=== PATIENT | female | born 1995 | race Caucasian/White ===

== ENCOUNTER 2020-02-19 13:35 | Emergency (ER) | payer MEDICAID, SELFPAY ==
[2020-02-19] VITALS (13 sets, daily range): BP systolic 133–157; BP diastolic 84–102; PULSE 94–125; RESP 16–22; TEMP 36.7–37.2; O2SAT 96–100; BMI 42.0
--- NOTE | 2020-02-19 14:06 | ED.DCSUM_ITS ---
History of Present Illness Chief Complaint: Abn Labs Narrative: This patient is a 24-year-old female who was sent in for a blood transfusion. She began to have a heavier menstrual period about 3 weeks ago. She continues to have vaginal bleeding although she now describes this as light as if at the end of her menstrual period. She does have a history of bilateral lung transplant for pulmonary hypertension. Her transplant physician had ordered outpatient blood work for her tacrolimus level and included a blood count. This was done about 1 week ago. Her hemoglobin was in the sevens. Her transplant physician spoke to her photocopying equipment mechanic and she actually has an appointment tomorrow. However her photocopying equipment mechanic advised her to present for blood transfusion. She does complain of dyspnea with exertion only as well as some lightheadedness. She otherwise denies recent illness such as fevers chest pain abdominal pain vomiting diarrhea. Past Medical History - Allergies and Home Meds Allergies/Adverse Reactions: Allergies cefprozil [From Cefzil] Allergy (Verified 02/19/20 13:40) Rash Primary Care Physician: Candelario Byrd MD [STAFF PHYSICIAN] - Past Medical History: - - Lung transplant Smoking Status: Never smoker Review of Systems All systems negative except as indicated General: Denies: Fever Eyes: Denies: Visual changes - bilaterally ENT: Denies: Bilateral ear pain Cardiovascular: Denies: Chest pain Respiratory: Reports: Dyspnea Gastrointestinal: Denies: Abdominal pain, Nausea, Vomiting, Diarrhea Genitourinary: Reports: - - Menorrhagia Musculoskeletal: Denies: Myalgias, Arthralgias Skin: Denies: Rash Neurological: Denies: Headache Allergy: Denies: Uticaria Physical Exam Vital Signs/Narrative: Vital Signs Temp Pulse Resp BP Pulse Ox 02/19/20 14:04 115 H 18 145/92 H 100 02/19/20 13:37 98.0 F 125 H 22 H 157/102 H 100 Inital Vital Signs reviewed: Yes General: Well nourished Head: Normocephalic Eyes: EOMI ENT: Moist mucous membranes Neck: Supple Cardiovascular: - - Heart regular tachycardia, no murmur Respiratory: No distress, CTA bilaterally Abdomen: Soft Extremities: Nontender Skin: Pallor Neurological: Alert Psychological: Normal affect Diagnostic/Tx/Re-eval Laboratory Results 02/19/20 02/19/20 02/19/20 14:35 14:35 14:35 WBC 9.1 RBC 2.29 L Hgb 6.5 L Hct 22.1 L MCV 96.5 MCH 28.4 MCHC 29.4 L RDW Std Deviation 49.7 H RDW Coeff of Dickson 14.3 Plt Count 502 H MPV 9.5 Immature Gran % (Auto) 0.500 Neut % (Auto) 87.9 H Lymph % (Auto) 6.7 L [place] % (Auto) 3.7 Eos % (Auto) 0.8 Baso % (Auto) 0.4 Absolute Neuts (auto) 8.0 H Absolute Lymphs (auto) 0.61 L Nucleated RBC % 0 PT INR Sodium 141 Potassium 4.3 Chloride 111 H Carbon Dioxide 25.0 Anion Gap 5 BUN 12 Creatinine 0.95 Estim Creat Clear Calc 80.75 Est GFR (MDRD) Af Amer 91 Est GFR (MDRD) Non-Af 75 BUN/Creatinine Ratio 12.7 Glucose 107 H Calcium 8.7 Serum , Qual Blood Type O NEGATIVE Antibody Screen NEGATIVE Crossmatch 02/19/20 02/19/20 02/19/20 14:35 14:35 14:35 WBC RBC Hgb Hct MCV MCH MCHC RDW Std Deviation RDW Coeff of Dickson Plt Count MPV Immature Gran % (Auto) Neut % (Auto) Lymph % (Auto) [place] % (Auto) Eos % (Auto) Baso % (Auto) Absolute Neuts (auto) Absolute Lymphs (auto) Nucleated RBC % PT 25.6 H INR 2.4 Sodium Potassium Chloride Carbon Dioxide Anion Gap BUN Creatinine Estim Creat Clear Calc Est GFR (MDRD) Af Amer Est GFR (MDRD) Non-Af BUN/Creatinine Ratio Glucose Calcium Serum , Qual NEGATIVE Blood Type Antibody Screen Crossmatch See Detail - Medical Decision Making Labs as above notable for hemoglobin 6.5. After discussion of risks and benefits with informed consent patient was transfused 2 units of packed red blood cells. She will follow-up with gynecology as scheduled tomorrow. She does understand to return for new or worsening symptoms and was advised on signs and symptoms to monitor for. She is agreeable to this plan. Patient discharged. ED Disposition - Plan for ED Patient: Disposition: Home or Assisted Living Diagnosis: Blood loss anemia Instructions: ED Anemia Type Not Specified Referrals: Candelario Byrd MD [STAFF PHYSICIAN] -
[2020-02-19 14:47] LABS: Absolute Lymphocyte Count 0.61 X10^3/uL (0.83-4.51); Basophil# 0.04 X10^3/uL; Basophil% 0.4 % (0-1); Eosinophil# 0.07 X10^3/uL; Eosinophils% 0.8 % (0-5); Hematocrit 22.1 % (37-47); Hemoglobin 6.5 g/dL (12.0-15.0); Lymphocyte # 0.61 X10^3/ul (4.0); Lymphocyte % 6.7 % (19-41); Mean Corp Hgb Conc 29.4 g/dL (32-36); Mean Corpuscular Hgb 28.4 pg (27.0-32.0); Mean Corpuscular Volume 96.5 fL (81-99); Mean Platelet Vol. 9.5 fl (6.2-12.0); Monocyte# 0.34 X10^3/uL; Monocyte% 3.7 % (0-10); NRBC Flagged by Analyzer 0 % (0-5); Neutrophil % 87.9 % (47-70); Platelet Count 502 K/mm3 (150-450); RBC Distribution Width CV 14.3 % (11.6-14.6); RBC Distribution Width SD 49.7 fl (35.1-43.9); Red Blood Count 2.29 M/mm3 (4.2-5.4); White Blood Count 9.1 K/mm3 (4.4-11.0)
[2020-02-19 14:58] LABS: Internal QC Validated? YES +Cl - CLEAR BKGD; International Normalized Ratio 2.4; Pregnancy, Serum, hCG Quali. NEGATIVE Negative; Prothrombin Time (Protime)PT. 25.6 SECONDS (11.7-14.9)
[2020-02-19 14:59] LABS: Anion Gap 5 (5-15); BUN 12 mg/dL (7-18); BUN/Creat Ratio 12.7 RATIO (10-20); Calcium,Total 8.7 mg/dL (8.5-10.1); Chloride 111 mmol/L (98-107); Creatinine, Serum 0.95 mg/dL (0.55-1.02); EST Glomerular Filtration Rate 75 mL/min (>60); Est Glom Filt Rate - Afr Amer 91 mL/min (>60); Estimated Creatinine Clearance 80.75 ml/min; Glucose 107 mg/dL (74-106); Potassium 4.3 mmol/L (3.5-5.1); Sodium Level 141 mmol/L (136-145)
== END 2020-02-19 20:49 | disposition home or self-care (01) ==
PROVIDERS: Emergency Provider Emergency Medicine; PCP Family Medicine
DX: D50.0 Iron deficiency anemia secondary to blood loss (chronic) (principal); R42 Dizziness and giddiness; R06.09 Other forms of dyspnea; Z79.01 Long term (current) use of anticoagulants; Z79.899 Other long term (current) drug therapy; I27.20 Pulmonary hypertension, unspecified; Z94.2 Lung transplant status
CPT/HCPCS: 36430; 80048; 84703; 85025; 85610; 86850; 86900; 86901; 86920; 86922; 99283; J7040; P9016; A4216

== ENCOUNTER → 2020-04-08 | Outpatient (CLI) | payer MEDICAID, SELFPAY ==
[2020-02-19 13:37] VITALS: BMI 42.0
== END | disposition home or self-care (01) ==
LOC: LABSPEC 10:09
PROVIDERS: PCP Family Medicine; Visit Provider Registered Nurse
DX: Z11.59 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 for other viral diseases (principal)
CPT/HCPCS: 87635; U0003

== ENCOUNTER 2021-03-06 15:32 | Emergency (ER) | payer MEDICAID, SELFPAY ==
[2020-02-19 13:37] VITALS: BMI 42.0
[2021-03-06 15:33] VITALS: BP 112/72; PULSE 81; RESP 16; TEMP 36.6; O2SAT 100; BMI 36.3
--- NOTE | 2021-03-06 16:32 | RAD_ITS ---
STUDY: X-RAY - LEFT FOOT CLINICAL: Female, 26 years old. Injury, pain TECHNIQUE: 3 view(s) of the foot. COMPARISON: None. FINDINGS: Normal talus, calcaneus, and tarsal bones. Normal visualized subtalar, talonavicular, calcaneocuboid, tarsal and tarsometatarsal articulations. Nondisplaced fracture at the base of the fifth metatarsal. Normal metatarsophalangeal joint of the great toe. Normal tibial and fibular sesamoid bones. Normal interphalangeal joint of the great toe. Normal phalanges of the great toe. Normal second through fifth metatarsophalangeal joints. Normal interphalangeal joints and phalanges of the lesser toes. Lateral foot soft tissue swelling. RAD/Foot min 3 Views IMPRESSION: Nondisplaced proximal fifth metatarsal fracture. Electronically Signed: Rajesh Talley MD ([place]) at 17:17 EDT , Service support ,
--- NOTE | 2021-03-06 16:46 | EX.ED.DYSGE1 ---
HPI History of Present Illness Chief Complaint: Lower Extremity Injury Informant: patient Narrative Narrative: Patient is a 26-year-old female with a past medical history of lung transplant secondary to pulmonary hypertension who presents to the emergency department for injury to left foot. 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 She occasionally drags the foot. Yesterday she had her toes get caught under her and she basically stepped on her own foot. She has been having pain since. She denies any other injury or fall from the event. Ambulating on it seems to make her symptoms worse. No significant swelling. She does have chronic discoloration of the toes on that side which are no worse than normal. [facility] Medical History (Updated 03/06/21 @ 17:[address] Abundio Mcallister DO) Anemia Neuropathy Non-smoker Pulmonary hypertension Home Medications ferrous sulfate [Iron Supplement] 325 mg PO DAILY 03/23/15 [History Last Taken 09/23/15] ondansetron 4 mg PO Q8H PRN PRN 03/23/15 [History Last Taken 09/23/15] warfarin [Coumadin ([facility])] 11 mg PO DAILY 03/23/15 [History Last Taken 09/23/15 11] acetaminophen 1,000 mg PO Q6H PRN 03/06/21 [History Last Taken Unknown] azathioprine 50 mg PO DAILY 03/06/21 [History Last Taken Unknown] biotin 1 mg PO DAILY 03/06/21 [History Last Taken Unknown] bupropion HCl [Wellbutrin XL] 300 mg PO DAILY 03/06/21 [History Last Taken Unknown] calcium carbonate 1,000 mg PO DAILY 03/06/21 [History Last Taken Unknown] fluticasone propionate [Flonase] 1 spray INTRANASAL DAILY 03/06/21 [History Last Taken Unknown] folic acid 1 mg PO DAILY 03/06/21 [History Last Taken Unknown] gabapentin 600 mg PO BID 03/06/21 [History Last Taken Unknown] gabapentin 900 mg PO QHS 03/06/21 [History Last Taken Unknown] levonorgestrel [Mirena] 20 mcg INTRAUTERINE DAILY 03/06/21 [History Last Taken Unknown] magnesium oxide 400 mg PO BID 03/06/21 [History Last Taken Unknown] mecobalamin (vitamin B12) [B12 Active] 1,000 mcg PO DAILY 03/06/21 [History Last Taken Unknown] melatonin 5 mg PO QHS 03/06/21 [History Last Taken Unknown] montelukast [Singulair] 10 mg PO DAILY 03/06/21 [History Last Taken Unknown] multivitamin 1 tab PO DAILY 03/06/21 [History Last Taken Unknown] naltrexone 50 mg PO DAILY 03/06/21 [History Last Taken Unknown] pantoprazole 40 mg PO DAILY 03/06/21 [History Last Taken Unknown] prednisone 5 mg PO DAILY 03/06/21 [History Last Taken Unknown] propranolol 20 mg PO TID 03/06/21 [History Last Taken Unknown] sulfamethoxazole-trimethoprim [Bactrim] 1 tab PO MOFR 03/06/21 [History Last Taken Unknown] tacrolimus 3 mg PO Q12H 03/06/21 [History Last Taken Unknown] valganciclovir [Valcyte] 450 mg PO DAILY 03/06/21 [History Last Taken Unknown] Allergy/AdvReac Type Severity Reaction Status Date / Time cefprozil [From Cefzil] Allergy Rash Verified 02/19/20 13:40 fentanyl AdvReac Other Verified 03/06/21 15:35 Surgical History (Updated 03/06/21 @ 16:02 by Anibal Rosenberg) Hx of lung transplant Social History Smoking Status: Never smoker ROS ROS ED Constitutional Constitutional ED: Denies chills or fever(s) Eyes Eyes: Denies change in vision ENT ENT ED: Denies epistaxis or rhinorrhea Cardiovascular Cardiovascular: Denies chest pain or palpitations Respiratory/Chest Respiratory/Chest: Denies cough, dyspnea or dyspnea on exertion Gastrointestinal Gastrointestinal: Denies abdominal pain, nausea or vomiting Musculoskeletal Musculoskeletal: Reports other Details: Left foot pain ; Denies back pain or neck pain Integumentary Denies rash Neurologic Neurologic: Denies dizziness, headache(s) or weakness EXAM Physical Exam Const Vital Signs: 03/06/21 15:33 Temperature 97.9 F Temperature Source Temporal Pulse Rate 81 Respiratory Rate 16 Blood Pressure 112/72 Blood Pressure Mean 85 Pulse Ox 100 Oxygen Delivery Method Room Air Positive well nourished and well developed General Appearance ED: well developed and NAD HEENT Reports normocephalic, head/scalp atraumatic and moist mucous membranes Eyes PERRL and EOMs intact bilaterally Neck supple Resp normal respiratory effort and clear to auscultation bilaterally Auscultation: Negative for rales, rhonchi or wheezes Cardio regular rate, regular rhythm and no murmurs GI normal to inspection, nondistended, normoactive bowel sounds and non-tender Palpation: soft Extremity Extremity Narrative: No obvious deformity to left foot. Neurovascularly intact. Mild purplish discoloration to toes which she states is chronic. No pain palpating up the ankle, heck or knee. General Extremety ED: Negative for edema General Extremity: Negative for edema Neuro no sensory deficits noted Sensorium / Orientation: alert Motor Exam: strength 5/5 throughout Psych mental status grossly normal Skin no rashes or lesions noted MDM MDM MDM Narrative Medical decision making narrative: Patient presents to the ED for left foot injury and pain. This occurred yesterday. She has been able to ambulate on it but this does cause pain. Will check x-rays of the foot. She otherwise is in no acute distress. Vital signs within normal limits. X-ray of the foot was positive for fracture of the fifth metatarsal. Will place in walking boot and give crutches. She is given podiatry referral for follow-up. Return precautions are reviewed with her. She otherwise is neurovascular intact. She understands and is agreeable this plan. Radiography Diagnostic Testing: Radiology Impression Foot X-Ray 03/06/21 16:32 IMPRESSION: Nondisplaced proximal fifth metatarsal fracture. Electronically Signed: Rajesh Talley MD ([place]) at 17:17 EDT , Service support , X-ray of the foot interpreted by myself. There is 5th metatarsal fracture. This does not appear displaced. Agree with radiologist interpretation. Discharge Plan Triage Chief Complaint: Lower Extremity Injury ED Provider: Abundio Mcallister Dx/Rx/DC Orders Clinical Impression: Closed fracture of fifth metatarsal bone Instructions: ED Fracture, Foot Prescriptions: No Action warfarin [Jantoven] 7.5 MG tablet 11 mg PO DAILY RF: 0 ferrous sulfate [Iron (ferrous sulfate)] 325 MG tablet 325 mg PO DAILY RF: 0 ondansetron 4 MG tablet 4 mg PO Q8H PRN PRN (Reason: Nausea) RF: 0 multivitamin Tablet 1 tab PO DAILY RF: 0 valganciclovir [Valcyte] 450 mg Tablet 450 mg PO DAILY RF: 0 Mirena 20 mcg/24 hours (6 yrs) 52 mg Intrauterine Device 20 mcg INTRAUTERINE DAILY RF: 0 calcium carbonate 500 mg Capsule 1,000 mg PO DAILY RF: 0 sulfamethoxazole-trimethoprim [Bactrim] 400-80 mg Tablet 1 tab PO MOFR RF: 0 naltrexone 50 mg Tablet 50 mg PO DAILY RF: 0 prednisone 5 mg Tablet 5 mg PO DAILY RF: 0 azathioprine 50 mg Tablet 50 mg PO DAILY RF: 0 acetaminophen 500 mg Tablet 1,000 mg PO Q6H PRN (Reason: Pain) RF: 0 pantoprazole 40 mg Tablet,Delayed Release (Dr/Ec) 40 mg PO DAILY RF: 0 folic acid 1 mg Tablet 1 mg PO DAILY RF: 0 montelukast [Singulair] 10 mg Tablet 10 mg PO DAILY RF: 0 propranolol 20 mg Tablet 20 mg PO TID RF: 0 fluticasone propionate [Flonase] 50 mcg/actuation [place],Suspension 1 spray INTRANASAL DAILY RF: 0 tacrolimus 1 mg Capsule 3 mg PO Q12H RF: 0 bupropion HCl [Wellbutrin XL] 150 mg Tablet Extended Release 24 Hr 300 mg PO DAILY RF: 0 gabapentin 300 mg Tablet 600 mg PO BID RF: 0 gabapentin 300 mg Tablet 900 mg PO QHS RF: 0 biotin 1 mg Tablet 1 mg PO DAILY RF: 0 magnesium oxide 400 mg magnesium Capsule 400 mg PO BID RF: 0 melatonin 5 mg Tablet,Disintegrating 5 mg PO QHS RF: 0 B12 Active 1,000 mcg Tablet,Chewable 1,000 mcg PO DAILY RF: 0 Primary Care Provider: Bisi Unger Referrals: Jenni Mahoney DPM [STAFF PHYSICIAN] - 3-5 Days Bisi Unger MD [Primary Care Provider] - Disposition Disposition: Home, Self Care Discharge Date/Time: 03/06/21 18:36
== END 2021-03-06 18:36 | disposition home or self-care (01) ==
PROVIDERS: Emergency Provider Emergency Medicine; PCP Internal Medicine
DX: S92.355A Nondisplaced fracture of fifth metatarsal bone, left foot, initial encounter for closed fracture (principal); W50.0XXA Accidental hit or strike by another person, initial encounter; Y93.9 Activity, unspecified; Y92.9 Unspecified place or not applicable; Y99.9 Unspecified external cause status; G62.9 Polyneuropathy, unspecified; I27.20 Pulmonary hypertension, unspecified; D64.9 Anemia, unspecified; Z94.2 Lung transplant status; Z79.01 Long term (current) use of anticoagulants; Z79.52 Long term (current) use of systemic steroids; Z79.3 Long term (current) use of hormonal contraceptives; Z79.899 Other long term (current) drug therapy
CPT/HCPCS: 73630; 99283; A4216

== ENCOUNTER → 2021-04-12 | Outpatient (CLI) | payer MEDICAID, SELFPAY ==
[2021-04-12 12:10] LABS: International Normalized Ratio 2.8; Prothrombin Time (Protime)PT. 28.7 SECONDS (11.7-14.9)
== END | disposition home or self-care (01) ==
LOC: LABSPEC 11:38
PROVIDERS: PCP Internal Medicine; Referring Provider Clinical Nurse Specialist; Visit Provider Clinical Nurse Specialist
DX: I27.24 Chronic thromboembolic pulmonary hypertension (principal); I26.99 Other pulmonary embolism without acute cor pulmonale
CPT/HCPCS: 85610

== ENCOUNTER 2021-07-16 18:31 | Emergency (ER) | payer MEDICAID, SELFPAY ==
[2021-07-16] VITALS (8 sets, daily range): BP systolic 109–127; BP diastolic 66–86; PULSE 77–89; RESP 16; TEMP 36.4–36.9; O2SAT 96–100; BMI 35.0
--- NOTE | 2021-07-16 19:21 | EDS_ITS ---
HPI History of Present Illness Chief Complaint: Abn Labs Detail of Chief Complaint: Vaginal bleeding with symptomatic anemia Informant: patient, family and PCP Onset/Context/Timing Onset: Days Context: Sudden Onset Timing: Continuous Quality: Symptomatic anemia for the past 2 to 3 days Location: Vaginal bleeding Current Severity: Severe Maximum Severity: Severe Worsened by: Nothing Relieved by: Nothing Associated Symptoms Associated Symptoms: Orthostatic symptoms, fatigue, generalized weakness, dyspnea and dyspnea on Narrative Narrative: Patient is a 26-year-old female with history of abnormal vaginal bleeding. She required transfusion due to vaginal bleeding February 2020. She is not sexually active. She has no signs symptoms of . She was sent to the emergency department by her PCP because of hemoglobin of 7 and symptoms of anemia. She has been bleeding vaginally since the beginning of June. She has been bleeding heavily for the past 2 to 3 days. She is not on an anticoagulant. She has no other complaints. Prior similar symptoms: Yes Recent Illness/Hospitalization: No PFSH PFS Medical History Anemia Neuropathy Non-smoker Pulmonary hypertension Home Medications ferrous sulfate [Iron Supplement] 325 mg PO DAILY 03/23/15 [History Last Taken 09/23/15] ondansetron 4 mg PO Q8H PRN PRN 03/23/15 [History Last Taken 09/23/15] warfarin [Coumadin ([facility])] 11 mg PO DAILY 03/23/15 [History Last Taken 09/23/15 11] acetaminophen 1,000 mg PO Q6H PRN 03/06/21 [History Last Taken Unknown] azathioprine 50 mg PO DAILY 03/06/21 [History Last Taken Unknown] biotin 1 mg PO DAILY 03/06/21 [History Last Taken Unknown] bupropion HCl [Wellbutrin XL] 300 mg PO DAILY 03/06/21 [History Last Taken Unknown] calcium carbonate 1,000 mg PO DAILY 03/06/21 [History Last Taken Unknown] fluticasone propionate [Flonase] 1 spray INTRANASAL DAILY 03/06/21 [History Last Taken Unknown] folic acid 1 mg PO DAILY 03/06/21 [History Last Taken Unknown] gabapentin 600 mg PO BID 03/06/21 [History Last Taken Unknown] gabapentin 900 mg PO QHS 03/06/21 [History Last Taken Unknown] levonorgestrel [Mirena] 20 mcg INTRAUTERINE DAILY 03/06/21 [History Last Taken Unknown] magnesium oxide 400 mg PO BID 03/06/21 [History Last Taken Unknown] mecobalamin (vitamin B12) [B12 Active] 1,000 mcg PO DAILY 03/06/21 [History Last Taken Unknown] melatonin 5 mg PO QHS 03/06/21 [History Last Taken Unknown] montelukast [Singulair] 10 mg PO DAILY 03/06/21 [History Last Taken Unknown] multivitamin 1 tab PO DAILY 03/06/21 [History Last Taken Unknown] naltrexone 50 mg PO DAILY 03/06/21 [History Last Taken Unknown] pantoprazole 40 mg PO DAILY 03/06/21 [History Last Taken Unknown] prednisone 5 mg PO DAILY 03/06/21 [History Last Taken Unknown] propranolol 20 mg PO TID 03/06/21 [History Last Taken Unknown] sulfamethoxazole-trimethoprim [Bactrim] 1 tab PO MOFR 03/06/21 [History Last Taken Unknown] tacrolimus 3 mg PO Q12H 03/06/21 [History Last Taken Unknown] valganciclovir [Valcyte] 450 mg PO DAILY 03/06/21 [History Last Taken Unknown] ergocalciferol (vitamin D2) [Vitamin D2] 50,000 unit PO QWEEK 07/16/21 [History Last Taken Unknown] Allergy/AdvReac Type Severity Reaction Status Date / Time cefprozil [From Cefzil] Allergy Rash Verified 07/16/21 18:33 fentanyl AdvReac Other Verified 07/16/21 18:33 Surgical History Hx of lung transplant Social History (Updated 07/16/21 @ 19:[address] Sharath Adams MD) household members: family Smoking Status: Never smoker alcohol intake: never substance use type: does not use ROS ROS ED Constitutional Constitutional ED: Denies chills, fever(s), subjective, sweats or weight loss Eyes Eyes: Denies blurry vision, change in vision or diplopia ENT ENT ED: Denies ear pain, rhinorrhea or sore throat Cardiovascular Cardiovascular: Denies chest pain, orthopnea, palpitations or paroxysmal nocturnal dyspnea Respiratory/Chest Respiratory/Chest: Reports dyspnea and dyspnea on exertion; Denies cough, orthopnea, paroxysmal nocturnal dyspnea or sputum Gastrointestinal Gastrointestinal: Denies abdominal pain, constipation, diarrhea, nausea or vomiting Genitourinary Genitourinary ED: Denies dysuria, hematuria or urinary frequency Musculoskeletal Musculoskeletal: Denies arthralgias, back pain or myalgias Neurologic Neurologic: Reports weakness; Denies headache(s) or paresthesias Endocrine Endocrinology: Denies polydipsia, polyphagia or polyuria Hematologic/Lymphatic Hematologic/Lymphatic: Reports anemia; Denies easy bleeding or easy bruising EXAM Physical Exam Const Vital Signs: 07/16/21 18:33 07/16/21 21:39 07/16/21 21:54 Temperature 97.6 F L 98.4 F 98.1 F Temperature Source Temporal Oral Oral Pulse Rate 89 81 78 Respiratory Rate 16 16 16 Blood Pressure 125/67 H 127/66 H 122/71 H Blood Pressure Mean 86 86 88 Blood Pressure Source Monitor Monitor Blood Pressure Position Semi-Fowlers Blood Pressure Location Right Arm Pulse Ox 96 97 100 Oxygen Delivery Method Room Air Room Air Room Air Positive well nourished, well developed and obese General Appearance ED: well developed, NAD and pallor; Negative for cyanotic or diaphoretic Nutritional Appearance: obese HEENT HEENT Narrative: Head is atraumatic normocephalic. Nares patent. Patient's lips and gingiva are pale. Eyes PERRL and EOMs intact bilaterally General Eye ED: Yes pale conjunctiva; Negative for scleral icterus Neck no lymphadenopathy, supple and no JVD Chest Wall inspection of chest normal Resp normal respiratory effort and clear to auscultation bilaterally Cardio regular rate, regular rhythm, S1 normal heart sound, S2 normal heart sound and n o murmurs GI normal to inspection, nondistended, normoactive bowel sounds, non-tender and non-distended Palpation: soft Narrative: External genitalia appear normal. There is approximately 3 to 5 cc of blood noted in the vaginal vault. Cervix has appearance of a multipara. Patient states she is a virgin. Uterus is normal size nontender. There is no cervical motion tenderness. There is no discomfort pressure at the bladder. There is no fullness or tenderness in the right or left adnexal mass. Unable to appreciate size of ovary due to body habitus. Back/Spine no CVA tenderness Thoracic Spine / Upper Back: Negative for thoracic spinal tenderness or paraspinal muscle tenderness Extremity Negative for normal to inspection General Extremety ED: Negative for edema or tenderness General Extremity: Negative for edema Neuro oriented x3 and CN's II-XII intact bilaterally Sensorium / Orientation: alert Psych mental status grossly normal Skin no rashes or lesions noted and no wounds General Skin Exam: pallor; Negative for jaundice MDM MDM MDM Narrative Medical decision making narrative: Clinically patient's hemoglobin is below 10 and above 5. Sensory reported hemoglobin of 7 she symptomatic and is actively bleeding she was typed and crossed for 2 units of blood to be administered. Will perform pelvic exam. Patient's INR is therapeutic at 3.0. She is on Coumadin because of chronic recurrent PEs which resulted in significant pulmonary hypertension and required a lung transplant. Lab Data Attestation: I reviewed the patient's lab results. Lab results narrative: Hemoglobin is down 3 g from prior. Patient's INR is 3.0. She is on Coumadin. BUN/creatinine ratio is 21:1. Labs: Laboratory Results - last 24 hr 07/16/21 07/16/21 07/16/21 19:30 19:30 19:30 WBC 12.9 H RBC 2.28 L Hgb 7.4 L Hct 23.4 L MCV 102.6 H MCH 32.5 H MCHC 31.6 L RDW Std Deviation 55.2 H RDW Coeff of Dickson 14.6 Plt Count 356 MPV 9.9 PT INR Sodium 141 Potassium 4.1 Chloride 108 H Carbon Dioxide 29.0 Anion Gap 4 L BUN 25 H Creatinine 1.16 H Estim Creat Clear Calc 67.59 Est GFR (MDRD) Af Amer 71 Est GFR (MDRD) Non-Af 59 L BUN/Creatinine Ratio 21.6 H Glucose 101 Calcium 8.9 Blood Type Cancelled Antibody Screen Cancelled Crossmatch See Detail 07/16/21 07/16/21 19:50 19:50 WBC RBC Hgb Hct MCV MCH MCHC RDW Std Deviation RDW Coeff of Dickson Plt Count MPV PT 30.6 H INR 3.0 Sodium Potassium Chloride Carbon Dioxide Anion Gap BUN Creatinine Estim Creat Clear Calc Est GFR (MDRD) Af Amer Est GFR (MDRD) Non-Af BUN/Creatinine Ratio Glucose Calcium Blood Type O NEGATIVE Antibody Screen NEGATIVE Crossmatch See Detail Discharge Plan Triage Chief Complaint: Abn Labs ED Provider: Lindsay Adamso Dx/Rx/DC Orders Clinical Impression: Vaginal bleeding, Acute blood loss anemia, Signs and symptoms of anemia Instructions: When You Need a Blood ..., ED Dysfunctional Uterine Bleeding Prescriptions: No Action warfarin [Jantoven] 7.5 MG tablet 11 mg PO DAILY RF: 0 ferrous sulfate [Iron (ferrous sulfate)] 325 MG tablet 325 mg PO DAILY RF: 0 ondansetron 4 MG tablet 4 mg PO Q8H PRN PRN (Reason: Nausea) RF: 0 multivitamin Tablet 1 tab PO DAILY RF: 0 valganciclovir [Valcyte] 450 mg Tablet 450 mg PO DAILY RF: 0 Mirena 20 mcg/24 hours (6 yrs) 52 mg Intrauterine Device 20 mcg INTRAUTERINE DAILY RF: 0 calcium carbonate 500 mg Capsule 1,000 mg PO DAILY RF: 0 sulfamethoxazole-trimethoprim [Bactrim] 400-80 mg Tablet 1 tab PO MOFR RF: 0 naltrexone 50 mg Tablet 50 mg PO DAILY RF: 0 prednisone 5 mg Tablet 5 mg PO DAILY RF: 0 azathioprine 50 mg Tablet 50 mg PO DAILY RF: 0 acetaminophen 500 mg Tablet 1,000 mg PO Q6H PRN (Reason: Pain) RF: 0 pantoprazole 40 mg Tablet,Delayed Release (Dr/Ec) 40 mg PO DAILY RF: 0 folic acid 1 mg Tablet 1 mg PO DAILY RF: 0 montelukast [Singulair] 10 mg Tablet 10 mg PO DAILY RF: 0 propranolol 20 mg Tablet 20 mg PO TID RF: 0 fluticasone propionate [Flonase] 50 mcg/actuation [place],Suspension 1 spray INTRANASAL DAILY RF: 0 tacrolimus 1 mg Capsule 3 mg PO Q12H RF: 0 bupropion HCl [Wellbutrin XL] 150 mg Tablet Extended Release 24 Hr 300 mg PO DAILY RF: 0 gabapentin 300 mg Tablet 600 mg PO BID RF: 0 gabapentin 300 mg Tablet 900 mg PO QHS RF: 0 biotin 1 mg Tablet 1 mg PO DAILY RF: 0 magnesium oxide 400 mg magnesium Capsule 400 mg PO BID RF: 0 melatonin 5 mg Tablet,Disintegrating 5 mg PO QHS RF: 0 B12 Active 1,000 mcg Tablet,Chewable 1,000 mcg PO DAILY RF: 0 Vitamin D2 25,000 unit Capsule 50,000 unit PO QWEEK RF: 0 Primary Care Provider: Bisi Unger Referrals: Karuna Villegas DO [STAFF PHYSICIAN] - Keep [place] appointment Bisi Unger MD [Primary Care Provider] - Disposition Disposition: Home, Self Care
[2021-07-16] MEDS: 0.9% Normal Saline 1,000 ML 1000 ML IV (19:32)
[2021-07-16 20:02] LABS: Anion Gap 4 (5-15); BUN 25 mg/dL (7-18); BUN/Creat Ratio 21.6 RATIO (10-20); Calcium,Total 8.9 mg/dL (8.5-10.1); Chloride 108 mmol/L (98-107); Creatinine, Serum 1.16 mg/dL (0.55-1.02); EST Glomerular Filtration Rate 59 mL/min (>60); Est Glom Filt Rate - Afr Amer 71 mL/min (>60); Estimated Creatinine Clearance 67.59 ml/min; Glucose 101 mg/dL (74-106); Potassium 4.1 mmol/L (3.5-5.1); Sodium Level 141 mmol/L (136-145)
[2021-07-16 20:11] LABS: Hematocrit 23.4 % (37-47); Hemoglobin 7.4 g/dL (12.0-15.0); Mean Corp Hgb Conc 31.6 g/dL (32-36); Mean Corpuscular Hgb 32.5 pg (27.0-32.0); Mean Corpuscular Volume 102.6 fL (81-99); Mean Platelet Vol. 9.9 fl (6.2-12.0); Platelet Count 356 K/mm3 (150-450); RBC Distribution Width CV 14.6 % (11.6-14.6); RBC Distribution Width SD 55.2 fl (35.1-43.9); Red Blood Count 2.28 M/mm3 (4.2-5.4); White Blood Count 12.9 K/mm3 (4.4-11.0)
[2021-07-16 20:21] LABS: Prothrombin Time (Protime)PT. 30.6 SECONDS (11.7-14.9)
--- NOTE | 2021-07-16 21:40 | ED.RN ---
SCANNER IN ROOM NOT WORKING. OTHER SCANNER ATTEMPTED AND STILL NOT WORKING. BLOOD VERIFIED WITH JARRED GRACE. BLOOD INITIATED AND PAPER FILLED OUT FOR TRANSFUSION VERIFICATION. PT RESTING WITH NO DISTRESS. INITIAL VITALS DOCUMENTED WITH START OF TRANSFUSION.
--- NOTE | 2021-07-16 23:40 | ED.RN ---
1ST BAG OF PRBC HAS COMPLETED AND NEW BAG STARTED.
[2021-07-17 01:04] VITALS: BP 111/64; PULSE 79; RESP 16; O2SAT 100
[2021-07-17 01:05] VITALS: BP 111/64; PULSE 79; RESP 16; TEMP 36.7; O2SAT 100
== END 2021-07-17 01:06 | disposition home or self-care (01) ==
PROVIDERS: Emergency Provider Emergency Medicine; PCP Internal Medicine
DX: N93.8 Other specified abnormal uterine and vaginal bleeding (principal); D62 Acute posthemorrhagic anemia; I27.20 Pulmonary hypertension, unspecified; G62.9 Polyneuropathy, unspecified; E66.9 Obesity, unspecified; Z94.2 Lung transplant status; Z79.01 Long term (current) use of anticoagulants; Z79.52 Long term (current) use of systemic steroids; Z79.3 Long term (current) use of hormonal contraceptives; Z79.890 Hormone replacement therapy; Z79.899 Other long term (current) drug therapy; Z86.711 Personal history of pulmonary embolism
CPT/HCPCS: 36430; 80048; 85027; 85610; 86850; 86900; 86901; 86920; 86922; 96360; 96361; 99283; J7030; P9016; A4216

== ENCOUNTER 2021-10-20 14:27 | Outpatient (CLI) | payer MEDICAID, SELFPAY ==
[2021-10-20 14:55] VITALS: BP 144/100; PULSE 76; RESP 16; TEMP 36.8; O2SAT 98
[2021-10-20] MEDS: 0.9% Saline Lock 10 ML Syringe IV (15:16)
[2021-10-20 15:45] VITALS: BP 129/91; PULSE 70; RESP 16; TEMP 36.8; O2SAT 99
[2021-10-20 16:45] VITALS: BP 143/100; PULSE 69; RESP 16; TEMP 36.9; O2SAT 99
== END 2021-10-20 23:59 | disposition home or self-care (01) ==
LOC: MS3OUT 16:25 → MS3 17:07
PROVIDERS: PCP Internal Medicine; Referring Provider Nurse Practitioner Adult Health; Visit Provider Nurse Practitioner Adult Health
DX: U07.1 COVID-19 (principal); D84.9 Immunodeficiency, unspecified
CPT/HCPCS: M0247; Q0247

== ENCOUNTER 2022-03-01 10:00 | Outpatient (RCR) | payer MEDICAID, MEDICARE, SELFPAY ==
--- NOTE | 2021-12-27 15:34 | HP.PTEVAL ---
Patient's Visit Information XIAO JACOB is a 26 year old F referred to Physical Therapy by Dr. Jenni Mahoney DPM with a diagnosis of LEFT 5TH METATARSAL FRACTURE WITH DELAYED HEALING. Date of Evaluation: 12/27/21 Physical Therapist: Shirley Michelle PT, Cert MDT - Visit Plan Frequency: 2x /Week Duration: 2 Months Plan: *S/P LUNG TRANSPLANT*. *CHECK AUTH: RECORD # OF VISITS APPROVED AND EXPIRATION DATE. CHECK CODES APPROVED WITH POC*. GAIT TRAINING WBAT L LE PROGRESSING TO NORMAL SHOE WITH AFO TOLERATED. MONITOR L LE SKIN INTEGRITY, PAIN AND SWELLING PATIENT TRANSITIONS BACK TO SHOE AND AFO. LLE ROM, STRETCHING AND STRENGTHENING TO HELP MEET SET GOALS. 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 Disability: YES - FOR NEUROPATHY/FOOT DROP, LUNG TRANSPLANT, ANXIETY AND DEPRESSION. Present symptoms: OUTSIDE OF LEFT ANKLE MAINLY BUT ALSO OUTSIDE OF LEFT FOOT. CHRONIC NUMBNESS BELOW THE KNEES ALEIDA L>R. Present since: 03/05/21. Pain Scale: WORST 3/10, LEAST 0/10. Currently: 0/10. Commenced as a result of: WALKING WITHOUT BRACES AND TRIPPED OVER LEFT TOES AND CAUGHT HERSELF ON A CAR (NEAR FALL BUT DIDN'T FALL) AND HER TOES WENT UNDER HER. WENT TO THE ED THE NEXT DAY. Symptoms at onset: FOOT PAIN AND SWELLING AND SOME BRUISING. Worse: STANDING AND WALKING. ONLY WEIGHT BEARING IN BOOT AT THIS TIME (HAS NOT TRIED TO GET TENNIS SHOE ON YET). Better: SITTING, ELEVATING, ICE, TYLONOL, GABAPENTIN. Disturbed sleep: NO. Previous history/Previous treatment: FOOT DROP AND NEUROPATHY. HAS USED A BRACE ON THIS LEG FOR 6.5 YEARS. HAS ALEIDA AFO'S. Treatment this episode: NWB WITH KNEE SCOOTER AND CRUTCHES FOR ABOUT 5 MONTHS THEN WBAT IN BOOT SINCE THEN (ABOUT 4 MONTHS). Gait: ONLY STANDING AND WALKING WITH BOOT ON. USING ONE CRUTCH NEEDED MAINLY ON UNEVEN GROUND AND LONG DISTANCES. Accidents: NO. Unexplained weight loss: NO. Imaging: LAST FOOT X-RAY WAS ABOUT 12/06/21. PATIENT REPORTS THE X-RAY SHOWED MORE HEALING BUT IT IS NOT HEALED YET. PATIENT REPORTS THEY DO NOT WANT TO DO SURGERY SO THE HOPE IS THAT WITH MORE TIME IT WILL HEAL. SHE REPORTS THE LAST X-RAY WAS ENCOURAGING. PMH/Recent major surgery: LUNG TRANSPLANT MAY 2015 DUE TO PULMONARY HYPERTENSION DX 2012. SHE REPORTS SHE WAS DX'D WITH IDOPATHIC BLOOD CLOTS IN HER LUNGS LEADING TO THE PULMONARY HYPERTENSION. SHE REPORTS SHE WAS IN A 3 WEEK MEDICALLY INDUCED COMA AFTER THE TRANSPLANT AND AT THAT TIME SHE DEVELOPED NEUROPATHY AND FOOT DROP AND IT HAS NEVER FULLY RECOVERED. ANXIETY AND DEPRESSION. POOR FOOT CIRCULATION. OTHER: WAS WALKING 30 TO 40 MINUTES AT LEAST 5 DAYS A WEEK AND SOME LIGHT UPPER BODY WEIGHT LIFTING UNTIL SHE BROKE HER FOOT. OTHER: PURCHASED A HOUSE IN SEPTEMBER AND CURRENTLY FIXING IT UP TO BE READY TO MOVE IN WHEN FOOT IS HEALED ENOUGH. CURRENTLY LIVING WITH PARENTS. CURRENTLY NO STEPS AT PARENTS BUT STEPS AT NEW HOME - 2-3. - Objective THIS PATIENT AMBULATES INDEP'LY INTO PT TODAY WEARING A RIGHT AFO AND CAM WALKER ON LEFT LE (HAS AFO FOR LLE TOO), NOT USING ANY ASSISTIVE DEVICES AND NO LOSS OF BALANCE. DECREASED CADANCE. TUG TIME: 13.43 SEC (NO AD AND IN CAM WALKER L, AFO RIGHT). SIT TO STAND 30 SEC TEST: 7 REPS WITH UE ASSIST. Sitting/Standing Posture: POOR. Sensory deficit: DECREASED ALEIDA LE LIGHT TOUCH SENSATION - CHRONIC. ROM deficit: TIGHT ALEIDA ANKLE PLANTAR FLEXION. DECREASED ALEIDA KNEE FLEXION: L 80 DEG, R 93 DEG. FULL ALEIDA KNEE PASSIVE EXT. Motor deficit: ALEIDA FOOT DROP. L KNEE EXTENSOR LAG OF 10 DEG. L HIP 4-/5. Core strength: POOR. OTHER: LEFT FOOT SWELLING AND REDNESS COMPARED TO RIGHT. TENDERNESS RIGHT LATERAL ANKLE AND FOOT. CIRCUMFERENCE MEASUREMENTS: MALLEOLI: R 28 CM, L 27 CM. MET HEADS: R 23 CM, L 23 CM. 6 ABOVE MALLEOLI: R 26 CM, L 24 CM. - Balance/Special Test Scores Lower Extremity Functional Score: 47 - Goals Goal 1:: PATIENT WILL COMPLETE 10 STANDS IN 30 SECS WITH EVEN LE WEIGHT BEARING AND NO UE ASSIST TO DEMONSTRATE IMPROVED FUNCTIONAL STRENGTH Goal Time Frame: 6-8 Weeks Goal 2:: PATIENT WILL COMPLETE TUG IN < 10 SECS TO DEMONSTRATE IMPROVED GAIT STABILITY WITH L NORMAL SHOE AND AFO. Goal Time Frame: 8-12 Weeks Goal 3:: PATIENT WILL AMBULATE >200 FEET WITHOUT AD INDEP'LY AND SAFELY WITH NORMAL SHOE AND AFO TO IMPROVE ACTIVITY TOLERANCE Goal Time Frame: 8-12 Weeks Goal 4:: INDEP AND SAFE GAIT ON STEPS WITH ONE HR, RECIP WITH NORMAL SHOE AND AFO TO IMPROVE COMMUNITY FUNCTION. Goal Time Frame: 8-12 Weeks Goal 5:: PATIENT WILL BE INDEP WITH A HEP FOR GOAL PROGRESS AND CONTINUED IMPROVEMENT ONCE FORMAL PHYSICAL THERAPY CONCLUDES. Goal Time Frame: 4-6 Weeks - Anticipated Interventions Patient/Client Instruction: Educate patient on: Condition, Plan of Care, Risk Factors For the Purpose of:: To improve self management Therapeutic Exercise to Include: Strength training, Balance training, Flexibilty training, Gait and locomotor training, Neuromotor development, In an aquatic setting For the Purpose of:: To decrease pain, To increase ROM, To improve muscle performance and motor function, To increase tolerance to activity/condition/position, To improve ability of physical actions for home/community/work/leisure, To improve gait and locomotor functions Cryotherapy (ice pack, ice massage): Yes Thermo therapy (hot pack): Yes For the Purpose of:: To decrease pain, To decrease swelling/inflammation, To improve nutrient delivery to tissue Thank you for the opportunity to evaluate your patient. For Medicare and Medicare HMO plans, please review the plan of care and approve it. It will need to be FAXED BACK to us at [phone] for Medicare purposes. For Medicare only, by signing this I certify the plan of care. Please let me know if there are questions or concerns regarding this plan of care. Physician Signature: Date:
--- NOTE | 2022-03-01 10:42 | HP.PTDCSUM ---
It has been my pleasure to treat XIAO JACOB referred by Dr. Jenni Mahoney, ASHLEY, with the diagnosis of LEFT 5TH METATARSAL FRACTURE WITH DELAYED HEALING for a total of 16 visit(s). Discharge Date: 03/01/22 Please see the following information for a summary of their discharge status. Subjective: PATIENT REPORTS HER FOOT WAS SORE A COUPLE TIMES SINCE LAST VISIT BUT IT DIDN'T LAST VERY LONG. SHE REPORTS SHE IS BACK TO ALMOST ALL OF HER NORMAL ACTIVITIES THAT SHE WAS DOING BEFORE SHE BROKE HER FOOT. SHE IS CONSIDERING JOINING A GYM AGAIN AND IS OK WITH BEING D/C'D FROM PT NOW. % Improvement: 85 Objective/Function: PATIENT WAS SEEN TODAY FOR RE-ASSESSMENT OF PROGRESS TOWARD THE SET PT GOALS AND THE NEED FOR FURTHER PHYSICAL THERAPY VS READINESS FOR DISCHARGE. UPON EXAM TODAY ALL PT GOAL HAVE BEEN MET. PATIENT DENIED PAIN THROUGHOUT TESTING TODAY. SEE TUG TIME AND STS TEST RESULTS BELOW. SHE IS NOW A COMMUNITY AMBULATOR IN HER NORMAL SHOE WITH AFO. SHE ALSO DEMO'D TODAY THE ABILITY TO GO UP AND DOWN A FLIGHT OF STEPS RECIPRICALLY WITH ONE HR AND LIGHT ASSIST FROM [employer]. Goal 1:: PATIENT WILL COMPLETE 10 STANDS IN 30 SECS WITH EVEN LE WEIGHT BEARING AND NO UE ASSIST TO DEMONSTRATE IMPROVED FUNCTIONAL STRENGTH Goal Progress: Goal Met Goal 2:: PATIENT WILL COMPLETE TUG IN < 10 SECS TO DEMONSTRATE IMPROVED GAIT STABILITY WITH L NORMAL SHOE AND AFO. Goal Progress: Goal Met Goal 3:: PATIENT WILL AMBULATE >200 FEET WITHOUT AD INDEP'LY AND SAFELY WITH NORMAL SHOE AND AFO TO IMPROVE ACTIVITY TOLERANCE Goal Progress: Goal Met Goal 4:: INDEP AND SAFE GAIT ON STEPS WITH ONE HR, RECIP WITH NORMAL SHOE AND AFO TO IMPROVE COMMUNITY FUNCTION. Goal Progress: Goal Met Goal 5:: PATIENT WILL BE INDEP WITH A HEP FOR GOAL PROGRESS AND CONTINUED IMPROVEMENT ONCE FORMAL PHYSICAL THERAPY CONCLUDES. Goal Progress: Goal Met Plan: D/C. PATIENT AGREEABLE. If there are questions or concerns regarding this patient's physical therapy, please feel free to call me at [phone]. Thank you for the referral of this patient. Sincerely, Shirley Michelle, PT, Cert MDT Balance/Gait/Functional tests - Balance/Special Test Scores Lower Extremity Functional Score: 59 TUG Test Time Seconds: 9.50 Tug Test: <10 sec.=free mobile 30 Second Chair Rise Test Seconds: 11
== END 2022-03-01 14:29 | disposition home or self-care (01) ==
LOC: PT 10:00
PROVIDERS: PCP Internal Medicine; Referring Provider Podiatrist; Visit Provider Podiatrist
DX: S92.352G Displaced fracture of fifth metatarsal bone, left foot, subsequent encounter for fracture with delayed healing (principal); X58.XXXD Exposure to other specified factors, subsequent encounter
CPT/HCPCS: 97110; 97162; 97164; 97530

== ENCOUNTER → 2022-07-11 | Outpatient (CLI) | payer MEDICARE, MEDICAID, SELFPAY ==
[2022-07-11 10:16] LABS: International Normalized Ratio 2.4; Prothrombin Time (Protime)PT. 26.2 SECONDS (11.7-14.9)
== END | disposition home or self-care (01) ==
LOC: LABSPEC 09:49
PROVIDERS: PCP Internal Medicine; Visit Provider Internal Medicine
DX: I27.24 Chronic thromboembolic pulmonary hypertension (principal); I26.99 Other pulmonary embolism without acute cor pulmonale; I82.90 Acute embolism and thrombosis of unspecified vein
CPT/HCPCS: 85610

== ENCOUNTER → 2022-08-15 | Outpatient (CLI) | payer MEDICARE, MEDICAID, SELFPAY ==
[2022-08-15 09:14] LABS: Prothrombin Time (Protime)PT. 21.9 SECONDS (11.7-14.9)
== END | disposition home or self-care (01) ==
LOC: LABSPEC 08:36
PROVIDERS: PCP Internal Medicine; Referring Provider Internal Medicine; Visit Provider Internal Medicine
DX: I26.99 Other pulmonary embolism without acute cor pulmonale (principal); I27.24 Chronic thromboembolic pulmonary hypertension; I82.90 Acute embolism and thrombosis of unspecified vein
CPT/HCPCS: 85610

== ENCOUNTER 2023-05-31 15:45 | Emergency (ER) | payer MEDICARE, MEDICAID, SELFPAY ==
[2023-05-31 15:50] VITALS: BP 152/102; PULSE 80; RESP 16; TEMP 36.1; O2SAT 98; BMI 45.3
[2023-05-31] MEDS: Oxymetazoline 0.05% 1 SPRAY SPRAY.BTL NASAL (16:30)
--- NOTE | 2023-05-31 16:30 | EX.ED.DYSGE1 ---
HPI History of Present Illness Chief Complaint: Nosebleed Narrative Narrative: Patient presenting today with a nosebleed that she has had since about 10:45 AM. She reports that she thinks that it is mainly coming from the right side. She does have a history of nosebleeds but has never had one that has lasted this long. She is on warfarin due to history of PEs. She denies any nasal trauma, recent illness, fever, chills. [facility] Medical History Anemia Neuropathy Non-smoker Pulmonary embolism Pulmonary hypertension Home Medications ferrous sulfate 325 mg (65 mg iron) tablet (Iron (ferrous sulfate)) 325 mg PO DAILY 03/23/15 [History Last Taken 09/23/15] ondansetron 4 mg disintegrating tablet 4 mg PO Q8H PRN PRN Nausea 03/23/15 [History Last Taken 09/23/15] warfarin 7.5 mg tablet (Jantoven) mg PO DAILY 03/23/15 [History Last Taken 09/23/15 11] acetaminophen 500 mg tablet 1,000 mg PO Q6H PRN Pain 03/06/21 [History Last Taken Unknown] azathioprine 50 mg tablet 50 mg PO DAILY 03/06/21 [History Last Taken Unknown] biotin 1 mg tablet 1 mg PO DAILY 03/06/21 [History Last Taken Unknown] bupropion HCl 150 mg 24 hr tablet, extended release (Wellbutrin XL) 300 mg PO DAILY 03/06/21 [History Last Taken Unknown] calcium carbonate 500 mg capsule 1,000 mg PO DAILY 03/06/21 [History Last Taken Unknown] fluticasone propionate 50 mcg/actuation nasal spray,suspension 1 spray intranasal DAILY 03/06/21 [History Last Taken Unknown] folic acid 1 mg tablet 1 mg PO DAILY 03/06/21 [History Last Taken Unknown] gabapentin 300 mg tablet 600 mg PO BID 03/06/21 [History Last Taken Unknown] gabapentin 300 mg tablet 900 mg PO QHS 03/06/21 [History Last Taken Unknown] levonorgestrel 21 mcg/24 hours (8 yrs) 52 mg intrauterine device (Mirena) 20 mcg intrauterine DAILY 03/06/21 [History Last Taken Unknown] magnesium oxide 400 mg PO BID 03/06/21 [History Last Taken Unknown] mecobalamin (vitamin B12) 1,000 mcg chewable tablet (B12 Active) 1,000 mcg PO DAILY 03/06/21 [History Last Taken Unknown] melatonin 5 mg disintegrating tablet 5 mg PO QHS 03/06/21 [History Last Taken Unknown] montelukast 10 mg tablet (Singulair) 10 mg PO DAILY 03/06/21 [History Last Taken Unknown] multivitamin 1 tab PO DAILY 03/06/21 [History Last Taken Unknown] naltrexone 50 mg tablet 50 mg PO DAILY 03/06/21 [History Last Taken Unknown] pantoprazole 40 mg tablet,delayed release 40 mg PO DAILY 03/06/21 [History Last Taken Unknown] prednisone 5 mg tablet 5 mg PO DAILY 03/06/21 [History Last Taken Unknown] propranolol 20 mg tablet 20 mg PO TID 03/06/21 [History Last Taken Unknown] sulfamethoxazole 400 mg-trimethoprim 80 mg tablet (Bactrim) 1 tab PO MOFR 03/06/21 [History Last Taken Unknown] tacrolimus 1 mg capsule, immediate-release 3 mg PO Q12H 03/06/21 [History Last Taken Unknown] valganciclovir 450 mg tablet (Valcyte) 450 mg PO DAILY 03/06/21 [History Last Taken Unknown] ergocalciferol (vitamin D2) 25,000 unit capsule 50,000 unit PO QWEEK 07/16/21 [History Last Taken Unknown] amoxicillin 875 mg tablet 875 mg PO BID 3 days #6 tabs 05/31/23 [Rx Last Taken Unknown] Allergy/AdvReac Type Severity Reaction Status Date / Time cefprozil [From Cefzil] Allergy Rash Verified 05/31/23 15:50 fentanyl AdvReac mental Verified 05/31/23 15:50 status change Surgical History Hx of lung transplant Social History household members: family Smoking Status: Never smoker alcohol intake: never substance use type: does not use ROS ROS ED Constitutional Constitutional ED: Denies chills or fever(s) ENT ENT ED: Reports epistaxis Cardiovascular Cardiovascular: Denies chest pain or palpitations Respiratory/Chest Respiratory/Chest: Denies cough or dyspnea Gastrointestinal Gastrointestinal: Denies abdominal pain, nausea or vomiting Musculoskeletal Musculoskeletal: Denies arthralgias or myalgias Integumentary Denies Abrasions Neurologic Neurologic: Denies weakness EXAM Physical Exam Const Vital Signs: 05/31/23 15:50 05/31/23 17:45 Temperature 96.9 F L Temperature Source Temporal Pulse Rate 80 Respiratory Rate 16 16 Blood Pressure 152/102 H Blood Pressure Mean 118 Pulse Ox 98 Positive well nourished, well developed and no apparent distress General Appearance ED: well developed HEENT Reports normocephalic and head/scalp atraumatic HEENT Narrative: No septal deviation, no septal hematoma, right anterior epistaxis. No blood in the posterior pharynx. No evidence of nasal trauma. No septal perforation. Mouth ED: Yes moist mucous membranes normal Eyes PERRL and EOMs intact bilaterally Neck full ROM and supple Chest Wall inspection of chest normal Resp normal respiratory effort and clear to auscultation bilaterally Cardio regular rate and regular rhythm GI soft to palpation, non-tender, non-distended and no masses Back/Spine normal ROM and normal to inspection Extremity normal to inspection and full ROM Neuro oriented x3, CN's II-XII intact bilaterally, moves all extremities, no focal motor deficits and no sensory deficits noted Sensorium / Orientation: awake and alert Psych mental status grossly normal and thought process normal Skin no rashes or lesions noted and no wounds MDM MDM MDM Narrative Medical decision making narrative: Patient presenting with a nosebleed. It appears that this is all right anterior, I did have her blow her nose which expelled a large clot, she has been packed with Afrin and will be reexamined after about 20 minutes. On reexamination, she is still bleeding anteriorly, she will be packed anteriorly with Merocel covered with bacitracin ointment. She will be started on amoxicillin for 3 days and has been given a referral for Dr. Vivar. INR was obtained and is WNL. She was ambulated and did not have any exacerbation of her symptoms. She will be discharged home in stable condition and is comfortable with plan. Lab Data Attestation: I reviewed the patient's lab results. Lab results narrative: INR 2.0 Labs: Laboratory Results - last 24 hr 05/31/23 16:25 PT 22.9 H INR 2.0 Discharge Plan Triage Chief Complaint: Nosebleed ED Midlevel Provider: Tracy Allen ED Provider: Jose Enrique Montero Dx/Rx/DC Orders Clinical Impression: Acute anterior epistaxis Instructions: ED Epistaxis (Adult) Prescriptions: New amoxicillin 875 mg tablet 875 mg PO BID 3 Days Qty: 6 0RF No Action warfarin [Jantoven] 7.5 MG tablet PO DAILY Rx Instructions: 7.5 Sa, Choudhary, , Th, Fr 11.25 Mo, We ferrous sulfate [Iron (ferrous sulfate)] 325 MG tablet 325 mg PO DAILY ondansetron 4 MG tablet 4 mg PO Q8H PRN PRN (Reason: Nausea) multivitamin Tablet 1 tab PO DAILY valganciclovir [Valcyte] 450 mg Tablet 450 mg PO DAILY Mirena 20 mcg/24 hours (6 yrs) 52 mg Intrauterine Device 20 mcg INTRAUTERINE DAILY calcium carbonate 500 mg Capsule 1,000 mg PO DAILY sulfamethoxazole-trimethoprim [Bactrim] 400-80 mg Tablet 1 tab PO MOFR naltrexone 50 mg Tablet 50 mg PO DAILY prednisone 5 mg Tablet 5 mg PO DAILY azathioprine 50 mg Tablet 50 mg PO DAILY acetaminophen 500 mg Tablet 1,000 mg PO Q6H PRN (Reason: Pain) pantoprazole 40 mg Tablet,Delayed Release (Dr/Ec) 40 mg PO DAILY folic acid 1 mg Tablet 1 mg PO DAILY montelukast [Singulair] 10 mg Tablet 10 mg PO DAILY propranolol 20 mg Tablet 20 mg PO TID fluticasone propionate [Flonase] 50 mcg/actuation [place],Suspension 1 spray INTRANASAL DAILY tacrolimus 1 mg Capsule 3 mg PO Q12H bupropion HCl [Wellbutrin XL] 150 mg Tablet Extended Release 24 Hr 300 mg PO DAILY gabapentin 300 mg Tablet 600 mg PO BID gabapentin 300 mg Tablet 900 mg PO QHS biotin 1 mg Tablet 1 mg PO DAILY magnesium oxide 400 mg magnesium Capsule 400 mg PO BID melatonin 5 mg Tablet,Disintegrating 5 mg PO QHS mecobalamin (vitamin B12) [B12 Active] 1,000 mcg Tablet,Chewable 1,000 mcg PO DAILY Vitamin D2 25,000 unit Capsule 50,000 unit PO QWEEK Primary Care Provider: Bisi Unger Referrals: Nba Bruce MD [Med Staff - Active Staff] - 3-5 Days if not improving Bisi Unger MD [Primary Care Provider] - Activity Restrictions/Additional Instructions: Follow-up with Dr. Mora in 3 days to have packing removed. Take antibiotics as prescribed, return for any worsening of your symptoms. Disposition Disposition: Home, Self Care Discharge Date/Time: 05/31/23 17:45
[2023-05-31 16:53] LABS: Prothrombin Time (Protime)PT. 22.9 SECONDS (11.7-14.9)
[2023-05-31 17:45] VITALS: RESP 16
== END 2023-05-31 17:45 | disposition home or self-care (01) ==
PROVIDERS: Physician Assistant; Emergency Provider Emergency Medicine; PCP Internal Medicine; Visit Provider Emergency Medicine
DX: R04.0 Epistaxis (principal); Z79.01 Long term (current) use of anticoagulants; Z79.899 Other long term (current) drug therapy; Z86.711 Personal history of pulmonary embolism
CPT/HCPCS: 30901; 85610; 99282

== ENCOUNTER 2024-07-02 10:16 | Emergency (ER) | payer MEDICARE, MEDICAID, SELFPAY ==
[2024-07-02 10:17] VITALS: BP 140/97; PULSE 82; RESP 16; TEMP 36.8; O2SAT 95; BMI 47.7
--- NOTE | 2024-07-02 10:50 | RAD_ITS ---
STUDY: X-RAY - RIGHT KNEE REASON FOR EXAM: Female, 29 years old. Trauma/foreign body TECHNIQUE: 2 view(s) of the knee. COMPARISON: Comparison is made with prior study dated July 13, 2016. FINDINGS: Normal visualized distal femur. Normal visualized proximal tibia and fibula. Normal proximal tibiofibular articulation. Normal medial femorotibial compartment. Normal lateral femorotibial compartment. Normal patellofemoral articulation. There is evidence of a laceration overlying the anterior aspect of the distal femur and proximal tibia. Multiple pockets of air within the soft tissues. No radiopaque foreign body is seen. RAD/Knee 1 or 2 Views IMPRESSION: Soft tissue laceration. Multiple pockets of air are seen within the soft tissues. No radiopaque foreign body is seen. Electronically Signed: Arjun Ware MD at 11:26 EDT ,
--- NOTE | 2024-07-02 10:51 | ED.VIS.LOWEX ---
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 Patient states that she fell while walking on asphalt. She fell forward causing laceration to the inferior right knee. She notes abrasions to the palms. Wound dressed by EMS. Patient is on Coumadin bleeding controlled with dressing. Tetanus Immunization: <5 years PFSH PFS Medical History Pulmonary embolism Non-smoker Neuropathy Pulmonary hypertension Anemia Home Medications ?Medication ?Instructions ?Recorded ?Last Taken ?Type ferrous sulfate 325 mg (65 mg 325 mg PO DAILY 03/23/15 09/23/15 History iron) tablet (Iron (ferrous sulfate)) ondansetron 4 mg disintegrating 4 mg PO Q8H PRN PRN Nausea 03/23/15 09/23/15 History tablet warfarin 7.5 mg tablet (Jantoven) mg PO DAILY 03/23/15 09/23/15 History 11 acetaminophen 500 mg tablet 1,000 mg PO Q6H PRN Pain 03/06/21 Unknown History azathioprine 50 mg tablet 50 mg PO DAILY 03/06/21 Unknown History biotin 1 mg tablet 1 mg PO DAILY 03/06/21 Unknown History bupropion HCl 150 mg 24 hr tablet, 300 mg PO DAILY 03/06/21 Unknown History extended release (Wellbutrin XL) calcium carbonate 500 mg capsule 1,000 mg PO DAILY 03/06/21 Unknown History fluticasone propionate 50 1 spray intranasal DAILY 03/06/21 Unknown History mcg/actuation nasal spray,suspension folic acid 1 mg tablet 1 mg PO DAILY 03/06/21 Unknown History gabapentin 300 mg tablet 600 mg PO BID 03/06/21 Unknown History gabapentin 300 mg tablet 900 mg PO QHS 03/06/21 Unknown History levonorgestrel 21 mcg/24 hr (up to 20 mcg intrauterine DAILY 03/06/21 Unknown History 8 years) 52 mg intrauterine device (Mirena) magnesium oxide 400 mg PO BID 03/06/21 Unknown History mecobalamin (vitamin B12) 1,000 1,000 mcg PO DAILY 03/06/21 Unknown History mcg chewable tablet (B12 Active) melatonin 5 mg disintegrating 5 mg PO QHS 03/06/21 Unknown History tablet montelukast 10 mg tablet 10 mg PO DAILY 03/06/21 Unknown History (Singulair) multivitamin 1 tab PO DAILY 03/06/21 Unknown History naltrexone 50 mg tablet 50 mg PO DAILY 03/06/21 Unknown History pantoprazole 40 mg tablet,delayed 40 mg PO DAILY 03/06/21 Unknown History release prednisone 5 mg tablet 5 mg PO DAILY 03/06/21 Unknown History propranolol 20 mg tablet 20 mg PO TID 03/06/21 Unknown History sulfamethoxazole 400 1 tab PO MOFR 03/06/21 Unknown History mg-trimethoprim 80 mg tablet (Bactrim) tacrolimus 1 mg capsule, 3 mg PO Q12H 03/06/21 Unknown History immediate-release valganciclovir 450 mg tablet 450 mg PO DAILY 03/06/21 Unknown History (Valcyte) ergocalciferol (vitamin D2) 25,000 50,000 unit PO QWEEK 07/16/21 Unknown History unit capsule amoxicillin 875 mg tablet 875 mg PO BID 3 days #6 tabs 05/31/23 Unknown Rx clindamycin HCl 300 mg capsule 300 mg PO Q8H 7 days #21 CAPSULES 07/02/24 Unknown Rx (Cleocin HCl) Allergy/AdvReac Type Severity Reaction Status Date / Time cefprozil (From Cefzil) Allergy Rash Verified 07/02/24 10:16 fentanyl AdvReac mental Verified 07/02/24 10:16 status change Surgical History Hx of lung transplant Social History household members: family Smoking Status: Never smoker alcohol intake: never substance use type: does not use ROS ROS ED Constitutional Constitutional ED: Denies chills, fever(s) or weight loss Eyes Eyes: Denies change in vision or diplopia ENT ENT ED: Denies ear pain, rhinorrhea or sore throat Cardiovascular Cardiovascular: Denies chest pain, orthopnea, palpitations or racing heartbeat Respiratory/Chest Respiratory/Chest: Denies cough, dyspnea or orthopnea Gastrointestinal Gastrointestinal: Denies abdominal pain, diarrhea, nausea or vomiting Genitourinary Genitourinary ED: Denies dysuria, hematuria or urinary frequency Musculoskeletal Musculoskeletal: Reports other Details: See history of present illness ; Denies arthralgias, back pain, myalgias or neck pain Integumentary Reports Abrasions; Denies abscess or rash Neurologic Neurologic: Denies headache(s) or weakness Psychiatric Psychiatric: Denies anxiety, depression, suicidal ideation or suicidal thoughts Endocrine Endocrinology: Denies polydipsia, polyphagia or polyuria Allergic/Immunologic Allergic/Immunologic ED: Denies mouth swelling, tongue swelling or urticaria EXAM Physical Exam Const Vital Signs: 07/02/24 10:17 07/02/24 12:24 Temperature 98.3 F 98 F Temperature Source Oral Pulse Rate 82 78 Respiratory Rate 16 16 Blood Pressure 140/97 H 138/71 H Blood Pressure Mean 111 93 Pulse Ox 95 99 Oxygen Delivery Method Room Air Positive well nourished, well developed and obese General Appearance ED: well developed and NAD Nutritional Appearance: obese HEENT Reports normocephalic, head/scalp atraumatic and moist mucous membranes Eyes PERRL and EOMs intact bilaterally Neck full ROM, no lymphadenopathy, supple and no JVD Resp normal respiratory effort and clear to auscultation bilaterally Cardio regular rate, regular rhythm and no murmurs GI normal to inspection, nondistended, normoactive bowel sounds and non-tender Palpation: soft Back/Spine no CVA tenderness and normal ROM Extremity Extremity Narrative: There is a 15 cm gaping laceration over the anterior inferior aspect of the right knee. Extensor mechanism appears intact. There is some contamination which what appears to be asphalt on the wound. Bleeding is controlled. There are superficial abrasions to the palms of the bilateral hands. No obvious bony deformities. General Extremety ED: Negative for edema General Extremity: Negative for edema Neuro oriented x3 and CN's II-XII intact bilaterally Sensorium / Orientation: alert Motor Exam: strength 5/5 throughout Psych mental status grossly normal Mood & Affect: Negative for depressed or tearful Skin no rashes or lesions noted and no wounds MDM MDM MDM Narrative Medical decision making narrative: Differential diagnosis includes fracture tendon injury ligamentous injury laceration foreign body Wound was locally anesthetized using 1% lidocaine with epinephrine. Small amounts of asphalt removed from the tissue wound irrigated washed with Shur-Clens explored. Wound was closed using a total of 25 simple interrupted 4-0 Ethilon sutures. Wound care discussed with patient. Stitches will need to be removed in 10 days. I spoke with her lung microbiology coordinator Jade at the [facility]. They are comfortable with prescribing clindamycin. My independent interpretation of the plain films of the knee is no obvious fracture no large formed radiopaque object seen. Her INR is 1.9. This may go up some with clindamycin but have asked that she recheck her INR on Monday. Patient is comfortable with this plan return if worsening or concerns History & Record Review Discussion w/independent historian: Patient Lab Data Attestation: I reviewed the patient's lab results. Labs: Laboratory Results - last 24 hr 07/02/24 11:00 PT 21.6 H INR 1.9 Radiography Diagnostic Testing: Clinical Impression(s) from Imaging Studies Knee X-Ray 07/02/24 10:50 IMPRESSION: Soft tissue laceration. Multiple pockets of air are seen within the soft tissues. No radiopaque foreign body is seen. Electronically Signed: Arjun Ware MD at 11:26 EDT , Management Discussion w/another healthcare provider: Ski Tow Operator (Lung Beautician Apprentice [facility] - [facility]ade) Discharge Plan Triage Chief Complaint: Laceration ED Provider: Nain Felix Dx/Rx/DC Orders Clinical Impression: Fall, Immunocompromised state, Laceration of leg, Anticoagulated on Coumadin Instructions: ED Laceration, All Closures Prescriptions: New clindamycin HCl [Cleocin HCl] 300 mg capsule 300 mg PO Q8H 7 Days Qty: 21 0RF No Action warfarin [Jantoven] 7.5 MG tablet PO DAILY Rx Instructions: 7.5 Sa, Choudhary, , Th, Fr 11.25 Mo, We ferrous sulfate [Iron (ferrous sulfate)] 325 MG tablet 325 mg PO DAILY ondansetron 4 MG tablet 4 mg PO Q8H PRN PRN (Reason: Nausea) multivitamin Tablet 1 tab PO DAILY valganciclovir [Valcyte] 450 mg Tablet 450 mg PO DAILY Mirena 20 mcg/24 hours (6 yrs) 52 mg Intrauterine Device 20 mcg INTRAUTERINE DAILY calcium carbonate 500 mg Capsule 1,000 mg PO DAILY sulfamethoxazole-trimethoprim [Bactrim] 400-80 mg Tablet 1 tab PO MOFR naltrexone 50 mg Tablet 50 mg PO DAILY prednisone 5 mg Tablet 5 mg PO DAILY azathioprine 50 mg Tablet 50 mg PO DAILY acetaminophen 500 mg Tablet 1,000 mg PO Q6H PRN (Reason: Pain) pantoprazole 40 mg Tablet,Delayed Release (Dr/Ec) 40 mg PO DAILY folic acid 1 mg Tablet 1 mg PO DAILY montelukast [Singulair] 10 mg Tablet 10 mg PO DAILY propranolol 20 mg Tablet 20 mg PO TID fluticasone propionate [Flonase] 50 mcg/actuation [place],Suspension 1 spray INTRANASAL DAILY tacrolimus 1 mg Capsule 3 mg PO Q12H bupropion HCl [Wellbutrin XL] 150 mg Tablet Extended Release 24 Hr 300 mg PO DAILY gabapentin 300 mg Tablet 600 mg PO BID gabapentin 300 mg Tablet 900 mg PO QHS biotin 1 mg Tablet 1 mg PO DAILY magnesium oxide 400 mg magnesium Capsule 400 mg PO BID melatonin 5 mg Tablet,Disintegrating 5 mg PO QHS mecobalamin (vitamin B12) [B12 Active] 1,000 mcg Tablet,Chewable 1,000 mcg PO DAILY Vitamin D2 25,000 unit Capsule 50,000 unit PO QWEEK amoxicillin 875 mg tablet 875 mg PO BID 3 Days Qty: 6 0RF Primary Care Provider: Bisi Unger Referrals: Bisi Unger MD [Primary Care Provider] - 10 Day for suture removal Activity Restrictions/Additional Instructions: Your INR today was 1.9. You will be on antibiotics and would recommend rechecking your INR on Monday. Print Language: Ecuadorean Disposition Disposition: Home, Self Care Discharge Date/Time: 07/02/24 12:25
[2024-07-02] MEDS: Lidocaine 1% /Epi 1:100 (20ml) 20 ML Vial INFILT (11:14)
--- OUTSIDE RECORDS SUMMARY | 2024-07-02 11:19 | XMS RPT_ITS | CCD ---
Author Organization [facility] Care Team Providers Care Chemical Educator Name Role Phone CHAGO GARCIA Unavailable Unavailable Demetria Lopez RN (Rn) (Hist) Unavailable Unavailable Lynne Chan MD Primary Care Provider 13, Pharmacist Unavailable Demetria Lopez RN (Rn) (Hist) Unavailable Unavailable Lynne Chan MD Primary Care Provider 13, Pharmacist Unavailable 13, Pharmacist Unavailable Demetria Lopez RN (Rn) (Hist) Unavailable Unavailable Lynne Chan MD Primary Care Provider 13, Pharmacist Unavailable Demetria Lopez RN (Rn) (Hist) Unavailable Unavailable Lynne Chan MD Primary Care Provider TALAMPAMRITA, LYNNE D Primary Care Unavailable 13, Pharmacist Unavailable BRYAMPAS, LYNNE D Primary Care Unavailable EDISON BIRD Attending Unavailable TALAMPAS, LYNNE D Primary Care Unavailable AKINDIPE, JENI A Referring Unavailable TALAMPAS, LYNNE D Primary Care Unavailable AKINDIPE, JENI A Attending Unavailable AKINDIPE, JENI A Referring Unavailable TALAMPAS, LYNNE D Primary Care Unavailable DAVID ZAMAN Attending Unavailable DAVID ZAMAN Referring Unavailable TALAMPAS, LYNNE D Primary Care Unavailable AKINDIPE, JENI A Referring Unavailable TALAMPAS, LYNNE D Primary Care Unavailable HAKAN ESCALANTE Referring Unavailable TALAMPAS, LYNNE D Primary Care Unavailable AKINDIPE, JENI A Referring Unavailable TALAMPAS, LYNNE D Referring Unavailable TALAMPAS, LYNNE D Primary Care Unavailable TALAMPAS, LYNNE D Primary Care Unavailable CHANDRA GAITAN Attending Unavailable TALAMPAS, LYNNE D Primary Care Unavailable AKINDIPE, JENI A Referring Unavailable TALAMPAS, LYNNE D Primary Care Unavailable AKINDIPE, JENI A Attending Unavailable AKINDIPE, JENI A Referring Unavailable TALAMPAS, LYNNE D Primary Care Unavailable AKINDIPE, JENI A Referring Unavailable TALAMPAS, LYNNE D Primary Care Unavailable TALAMPAS, LYNNE D Primary Care Unavailable CHARI LOOMIS Referring Unavailable TALAMPAS, LYNNE D Primary Care Unavailable LISETH WARD Attending Unavailable MARIA C PARDO Referring Unavailable TALAMPAS, LYNNE D Primary Care Unavailable HAKAN ESCALANTE Attending Unavailable TALAMPAS, LYNNE D Primary Care Unavailable HAKAN ESCALANTE Referring Unavailable TALAMPAS, LYNNE D Primary Care Unavailable AKINDIPE, JENI A Referring Unavailable TALAMPAS, LYNNE D Primary Care Unavailable AKINDIPE, JENI A Referring Unavailable AKINDIPE, JENI A Attending Unavailable TALAMPAS, LYNNE D Primary Care Unavailable AKINDIPE, JENI A Referring Unavailable TALAMPAS, LYNNE D Primary Care Unavailable CHANDRA GAITAN Attending Unavailable AVAHAKAN Referring Unavailable TALAMPAS, LYNNE D Attending Unavailable TALAMPAS, LYNNE D Referring Unavailable TALAMPAS, LYNNE D Primary Care Unavailable TALAMPAS, LYNNE D Primary Care Unavailable AKINDIPE, JENI A Referring Unavailable TALAMPAS, LYNNE D Primary Care Unavailable HAKAN ESCALANTE Referring Unavailable TALAMPAS, LYNNE D Primary Care Unavailable CHANDRA GAITAN Referring Unavailable TALAMPAS, LYNNE D Primary Care Unavailable CHANDRA GAITAN Referring Unavailable TALAMPAS, LYNNE D Primary Care Unavailable AKINDIPE, JENI A Referring Unavailable TALAMPAS, LYNNE D Primary Care Unavailable AKINDIPE, JENI A Referring Unavailable TALAMPAS, LYNNE D Primary Care Unavailable AKINDIPE, JENI A Referring Unavailable TALAMPAS, LYNNE D Primary Care Unavailable AKINDIPE, JENI A Referring Unavailable TALAMPAS, LYNNE D Primary Care Unavailable AKINDIPE, JENI A Attending Unavailable AKINDIPE, JENI A Referring Unavailable TALAMPAS, LYNNE D Primary Care Unavailable AVA, HAKAN Referring Unavailable TALAMPAS, LYNNE D Primary Care Unavailable BEBE SANDRA Attending Unavailable AKINDIPE, JENI A Referring Unavailable AKINDIPE, JENI A Referring Unavailable TALAMPAS, LYNNE D Primary Care Unavailable TALAMPAS, LYNNE D Attending Unavailable TALAMPAS, LYNNE D Primary Care Unavailable TALAMPAS, LYNNE D Primary Care Unavailable AKINDIPE, JENI A Referring Unavailable TALAMPAS, LYNNE D Primary Care Unavailable AKINDIPE, JENI A Referring Unavailable TALAMPAS, LYNNE D Primary Care Unavailable AKINDIPE, JENI A Referring Unavailable AKINDIPE, JENI A Attending Unavailable TALAMPAS, LYNNE D Primary Care Unavailable AKINDIPE, JENI A Referring Unavailable TALAMPAS, LYNNE D Primary Care Unavailable DAVID ZAMAN Attending Unavailable TALAMPAS, LYNNE D Primary Care Unavailable AVA, HAKAN Referring Unavailable Allergies Allergy Classification Reported Allergen(s) Allergy Type Date of Onset Reaction(s) Facility Cephalosporins (antibiotic) (2 sources) cefprozil Drug Allergy 3 [facility] Work Phone: nickel (2 sources) nickel Drug Allergy 4 Rash [facility] Opioid Agonists (2 sources) fentaNYL Drug Allergy 0 Mental Status Change [facility] Pollen (2 sources) Pollen Substance Allergy 4 Other: See [facility] pregabalin (2 sources) pregabalin Drug Allergy 1 Contraindicatio n-Medical Surgical [facility] Work Phone: (20 sources) cefprozil; Translations: [CEFPROZIL] Drug Allergy 3 [facility] Other [facility] (20 sources) nickel; Translations: [NICKEL] Drug Allergy 4 Rash [facility] Other [facility] (20 sources) Pollen; Translations: [POLLEN] Propensity to adverse reactions (disorder) 4 Other: See Comments [facility] Repository (20 sources) fentaNYL; Translations: [FENTANYL] Drug Allergy 0 Mental Status Change [facility] (18 sources) Non-steroidal anti-inflammato ry agent; Translations: [NSAIDS (NON-STEROIDAL ANTI-INFLAMMATO RY DRUG)] Propensity to adverse reactions to drug 1 Contraindicatio [facility] (20 sources) pregabalin; Translations: [PREGABALIN] Drug Allergy 1 Contraindicatio [facility] Work Phone: (20 sources) Non-steroidal anti-inflammato ry agent Propensity to adverse reactions to drug 1 Contraindicatio [facility] Medications Current Medications Medication Drug Class(es) Dates Sig (Normalized) Sig (Original) acetaminophen 325 mg / traMADol hydrochloride 37.5 mg oral tablet (2 sources) Opioid Agonist Start: 02-07-2023 End: 02-14-2023 take 1 tablet by mouth every eight hours as needed for pain traMADol-acetamino phen (ULTRACET) 37.5-325 mg per tablet Indications: Pain and swelling of right lower leg Take 1 tablet by mouth every 8 hours as needed for pain for up to 7 days. 21 tablet 0 02/07/2023 02/14/2023 Active Comment on above: Take 1 tablet by aldo every 8 hours as needed for pain for up to 7 days. [id number] 200 actuat albuterol 0.09 mg/actuat metered dose inhaler (20 sources) beta2-Adrenergic Agonist Start: 02-07-2023 take 2 puff(s) by inhalation every six hours as needed for wheezing albuterol HFA (PROVENTIL HFA, VENTOLIN HFA) 90 mcg/actuation inhaler Indications: 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) Inhale 2 Puffs as instructed every 6 hours as needed for wheezing/shortness of breath. 1 Each 1 02/07/2023 Active Comment on above: Inhale 2 Puffs as in structed every 6 hours as needed for wheezing/shortness of breath. atorvastatin 20 mg oral tablet (20 sources) HMG-CoA Reductase Inhibitor Start: 07-01-2024 take 1 tablet by mouth once daily atorvastatin (LIPITOR) 20 mg tablet Take 1 tablet by mouth once daily 90 tablet 07/01/2024 Active Start: 08-17-2022 End: 07-01-2024 take 1 tablet by mouth once daily atorvastatin (LIPITOR) 20 mg tablet Take 1 tablet by mouth once daily 90 tablet 3 08/02/2023 07/01/2024 Discontinued Comment on above: Take 1 tablet by aldo th once daily. Take 1 tablet by aldo th once daily azaTHIOprine 50 mg oral tablet (20 sources) Purine Antimetabolite Start: 11-18-19 End: 03-06-20 take 1 tablet by mouth once daily azaTHIOprine (IMURAN) 50 mg tablet Indications: 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) Take 1 tablet by mouth once daily. 90 tablet 3 03/06/2024 03/06/2025 Active Comment on above: Take 1 tablet by aldo th once daily. Take 1 tablet by aldo th once daily azithromycin 250 mg oral tablet (20 sources) Macrolide Antimicrobial Start: 08-17-20 End: 10-12-19 24 take 1 tablet by mouth once azithromycin (ZITHROMAX Z-ARMINDA) 250 mg tablet Take 1 tablet by mouth every Monday, Monday, and Monday. 39 tablet 3 10/13/2023 Active Comment on above: Take 1 tablet by aldo th every Monday,Monday,Monday. Take 1 tablet by aldo th every Monday, Monday, and Monday. Biotin (20 sources) BIOTIN ORAL Take by mouth. Active BIOTIN ORAL Take by mouth. 0 Active Comment on above: Take by mouth. BIPAP (20 sources) Start: 07-01-2020 BIPAP Supplies , suitable mask per pt preference, chin strap, head gear, humidity, heated tubing, filters, lifetime supplies. G47.33 ABHIJIT 1 Device 11 07/01/2020 Active Start: 02-28-2019 BIPAP IPAP max 16, EPAP min 5 with PS 4-6 cmH2O, suitable mask per pt preference, chin strap, head gear, humidity, tubing, lifetime supplies. G47.33 ABHIJIT 1 Device 02/28/2019 Active Start: 02-28-2019 BIPAP IPAP max 16, EPAP min 5 with PS 4-6 cmH2O, suitable mask per pt preference, chin strap, head gear, humidity, tubing, lifetime supplies. G47.33 ABHIJIT 1 Device 0 02/28/2019 Active Comment on above: IPAP max 16, EPAP mi n 5 with PS 4-6 cmH2O, suitable mask per pt preference, chin strap, head gear, humidity, tubing, lifetime supplies. G47.33 ABHIJIT Supplies, suitable m ask per pt preference, chin strap, head gear, humidity, heated tubing, filters, lifetime supplies. G47.33 ABHIJIT 24 hr buPROPion hydrochloride 450 mg extended release oral tablet (20 sources) Aminoketone Start: End: 4 take 1 tablet by mouth once daily buPROPion XL 450 mg Tb24 Take 1 tablet by mouth once daily. 30 tablet 2 03/20/2024 Active Start: 03-12-2023 End: 01-16-2024 take 1 tablet by mouth once daily buPROPion XL (WELLBUTRIN XL) 300 mg 24 hr tablet Indications: Recurrent major depressive disorder, in full remission (HCC) Take 1 tablet by mouth once daily. 90 tablet 3 01/16/2024 Active Start: 01-13-2023 End: 03-12-2023 take 1 tablet by mouth once daily buPROPion XL (WELLBUTRIN XL) 150 mg 24 hr tablet Take 1 tablet by mouth once daily. 90 tablet 3 01/13/2023 03/12/2023 Discontinued Start: 07-07-2022 End: 12-16-2022 take 1 tablet by mouth once daily buPROPion XL (WELLBUTRIN XL) 150 mg 24 hr tablet Take 1 tablet by mouth once daily. 90 tablet 3 09/16/2022 12/16/2022 Discontinued Start: 03-16-2022 End: 05-15-2022 take 40-44.9 tablets by mouth once daily buPROPion XL (WELLBUTRIN XL) 150 mg 24 hr tablet Indications: Class 3 severe obesity due to excess calories with serious comorbidity and body mass index (BMI) of 40.0 to 44.9 in adult (HCC) Take 2 tablets by mouth once daily 60 tablet 3 03/16/2022 Active Start: 11-26-2021 End: 01-25-2022 take 40-44.9 tablets by mouth once daily buPROPion XL (WELLBUTRIN XL) 150 mg 24 hr tablet Indications: Class 3 severe obesity due to excess calories with serious comorbidity and body mass index (BMI) of 40.0 to 44.9 in adult (HCC) Take 2 tablets by mouth once daily. 60 tablet 1 11/26/2021 Active Comment on above: Take 2 tablets by mo [facility] once daily. Take 2 tablets by mo [facility] once daily Take 1 tablet by [facility] once daily. calcium carbonate 1250 mg oral tablet (20 sources) Start: calcium carbonate (CALCIUM 500) 500 mg calcium (1,250 mg) tablet 2000 mg daily 07/20/2021 Active Comment on above: 2000 mg daily 1 ml enoxaparin sodium 100 mg/ml prefilled syringe (3 sources) Low Molecular Weight Heparin Start: End: inject 1 mL by subcutaneous injection every twelve hours enoxaparin (LOVENOX) 100 mg/mL syrg Inject 1 mL subcutaneously every 12 hours for 21 days. 42 mL 06/25/2024 07/16/2024 Active ergocalciferol 1.25 mg oral capsule (20 sources) Provitamin D2 Compound Start: End: take 1 capsule by mouth every week ergocalciferol 50,000 unit capsule (VITAMIN D2, DRISDOL) Indications: 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) Take 1 capsule by mouth one time a week. 13 capsule 3 12/29/2023 Active Start: 02-17-2022 End: 05-18-2022 take 1 capsule by mouth every other week ergocalciferol 50,000 unit capsule (VITAMIN D2, DRISDOL) Indications: 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) Take 1 capsule by mouth every 2 weeks. 0 02/17/2022 05/18/2022 Discontinued Start: 04-28-2021 End: 02-17-2022 take 1 capsule by mouth every week ergocalciferol 50,000 unit capsule (VITAMIN D2, DRISDOL) Indications: 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) Take 1 capsule by mouth once a week 10 capsule 0 12/09/2021 02/17/2022 Discontinued (Adjust Sig - Block E-Cancel) Comment on above: Take 1 capsule by mo [facility] once a week Take 1 capsule by [facility] every 2 weeks. Take 1 capsule by [facility] one time a week. escitalopram 10 mg oral tablet (20 sources) Serotonin Reuptake Inhibitor Start: take 1.5 tablets by mouth once daily escitalopram oxalate (LEXAPRO) 10 mg tablet Take 1.5 tablets by mouth once daily. 45 tablet 2 06/12/2024 Active Start: 05-02-2024 take 1.5 tablets by mouth once daily escitalopram oxalate (LEXAPRO) 10 mg tablet Take 1.5 tablets by mouth once daily. 45 tablet 2 05/02/2024 Active Start: 10-26-2023 End: 02-01-2024 take 1.5 tablets by mouth once daily escitalopram oxalate (LEXAPRO) 10 mg tablet Take 1.5 tablets by mouth once daily. 45 tablet 2 02/01/2024 Active Start: 10-04-2023 take 1.5 tablets by mouth once daily escitalopram oxalate (LEXAPRO) 10 mg tablet Take 1.5 tablets by mouth once daily. 45 tablet 0 10/04/2023 Active Start: 08-08-2023 take 1.5 tablets by mouth once daily escitalopram oxalate (LEXAPRO) 10 mg tablet Take 1.5 tablets by mouth once daily. 45 tablet 0 08/08/2023 Active Start: 06-19-2023 take 1.5 tablets by mouth once daily escitalopram oxalate (LEXAPRO) 10 mg tablet Take 1.5 tablets by mouth once daily. 45 tablet 0 06/19/2023 Active Start: 03-28-2023 take 1.5 tablets by mouth once daily escitalopram oxalate (LEXAPRO) 10 mg tablet Take 1.5 tablets by mouth once daily. 45 tablet 0 05/04/2023 Active Start: 02-20-2023 take 1.5 tablets by mouth once daily escitalopram oxalate (LEXAPRO) 10 mg tablet Take 1.5 tablets by mouth once daily. 45 tablet 1 02/20/2023 Active Start: 10-13-2022 End: 02-16-2023 take 1.5 tablets by mouth once daily escitalopram oxalate (LEXAPRO) 10 mg tablet Take 1.5 tablets by mouth once daily. 45 tablet 1 10/13/2022 02/16/2023 Discontinued Start: 07-11-2022 take 1 tablet by aldo th once daily escitalopram oxalate (LEXAPRO) 10 mg tablet Take 1 tablet by mouth once daily. 90 tablet 1 07/11/2022 Active Start: 03-28-2022 take 1 tablet by aldo th once daily escitalopram oxalate (LEXAPRO) 10 mg tablet Take 1 tablet by mouth once daily. 30 tablet 2 03/28/2022 Active Start: 02-17-2022 take 1 tablet by aldo once daily escitalopram oxalate (LEXAPRO) 10 mg tablet Take 1 tablet by mouth once daily. 30 tablet 1 02/17/2022 Active Comment on above: Take 1 tablet by aldo once daily. Take 1.5 tablets by mouth once daily. ferrous sulfate 325 mg oral tablet (20 sources) Start: 07-28-20 End: 04-03-20 take 1 tablet by mouth once daily ferrous sulfate 325 mg (65 mg iron) tablet Take 1 tablet by mouth once daily. 04/03/2024 Active Comment on above: Take 1 tablet by aldo once daily. fluticasone propionate 0.05 mg/actuat metered dose nasal spray (20 sources) Corticosteroid Start: 08-16-20 End: 01-16-20 fluticasone (FLONASE) 50 mcg/actuation nasal spray Use 2 Sprays in each nostril as needed. 16 g 5 01/16/2024 Active Comment on above: Use 2 Sprays in each nostril as needed. folic acid 1 mg oral tablet (20 sources) Start: 09-22-19 16 take 1 tablet by mouth once daily folic acid 1 mg tablet Take 1 tablet by mouth once daily. 90 tablet 3 09/22/2015 Active Comment on above: Take 1 tablet by [facility] once daily. gabapentin 300 mg oral capsule (20 sources) Anti-epileptic Agent Start: 01-06-20 22 End: 09-07-20 take 2 capsules by mouth at breakfast, then take 3 capsules by mouth at bedtime gabapentin (NEURONTIN) 300 mg capsule Indications: 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) TAKE 2 CAPSULES BY MOUTH AT BREAKFAST AND NOON AND 3 CAPSULES AT BEDTIME. 600 capsule 06/12/2024 09/07/2024 Active Start: 12-01-2021 End: 01-01-2022 gabapentin (NEURONTIN) 300 m g capsule Indications: 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) TAKE 2 CAPSULES BY MOUTH WITH BREAKFAST, 2 CAPS AT NOON AND 3 CAPS AT BEDTIME 210 capsule 0 12/01/2021 01/01/2022 Active Comment on above: TAKE 2 CAPSULES BY M OUTH WITH BREAKFAST, 2 CAPS AT NOON AND 3 CAPS AT BEDTIME TAKE 2 CAPSULES BY M OUTH WITH BREAKFAST, 2 CAPSULES AT NOON AND 3 CAPSULES AT BEDTIME TAKE 2 CAPSULES BY M OUTH WITH BREAKFAST, 2 CAPSULES AT NOON, AND 3 CAPSULES AT BEDTIME. levocetirizine dihydrochloride 5 mg oral tablet (20 sources) Histamine-1 Receptor Antagonist Start: 07-20-20 21 take 1 tablet by mouth once daily levocetirizine (XYZAL) 5 mg tablet Take 1 tablet by mouth once daily. 07/20/2021 Active Comment on above: Take 1 tablet by aldo th once daily. magnesium oxide 400 mg oral tablet (20 sources) Start: 03-23-20 16 take 1 tablet by mouth twice daily magnesium oxide (MAGOX) 400 mg tablet Take 1 tablet by mouth twice daily. 180 tablet 3 03/23/2016 Active Comment on above: Take 1 tablet by aldo th twice daily. Melatonin (20 sources) MELATONIN ORAL T bindu by mouth. Active MELATONIN ORAL T bindu by mouth. 0 Active Comment on above: Take by mouth. montelukast 10 mg oral tablet (20 sources) Leukotriene Receptor Antagonist Start: 1 End: 4 take 1 tablet by mouth once daily at bedtime montelukast (SINGULAIR) 10 mg tablet Indications: 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) take 1 tablet by mouth once daily at bedtime 90 tablet 3 10/05/2023 Active Comment on above: TAKE 1 TABLET BY ALDO TH ONCE DAILY AT BEDTIME Take 1 tablet by aldo th daily at bedtime. MULTIVIT-MINERALS/FOL IC ACID (WOMEN'S MULTIVITAMIN GUMMIES ORAL) (20 sources) MULTIVIT-MINERAL S/FO LIC ACID (WOMEN'S MULTIVITAMIN GUMMIES ORAL) Take by mouth once daily. Active MULTIVIT-MINERAL S/FOLIC ACID (WOMEN'S MULTIVITAMIN GUMMIES ORAL) Take by mouth once daily. 0 Active Comment on above: Take by mouth once d aily. ondansetron 4 mg oral tablet (20 sources) Serotonin-3 Receptor Antagonist Start: 2 End: 3 take 1 tablet by mouth every twelve hours as needed ondansetron (ZOFRAN) 4 mg tablet Take 1 tablet by mouth every 12 hours as needed. 10 tablet 3 02/01/2023 Active Comment on above: Take 1 tablet by aldo th every 12 hours as needed. oseltamivir 75 mg oral capsule (20 sources) Neuraminidase Inhibitor Start: End: take 1 capsule by mouth twice daily oseltamivir (TAMIFLU) 75 mg capsule Take 1 capsule by mouth two times a day for 10 days. Tamiflu emergency Rx. Take upon onset of influenza symptoms and get tested as soon as possible. 20 capsule 06/25/2024 07/05/2024 Active Start: 08-29-2023 End: 04-03-2024 take 1 capsule by mouth twice daily oseltamivir (TAMIFLU) 75 mg capsule Take 1 capsule by mouth two times a day. Tamiflu emergency Rx. Take upon onset of influenza symptoms and get tested as soon as possible. 20 capsule 0 08/29/2023 04/03/2024 Discontinued Start: 06-28-2022 End: 01-03-2023 take 1 capsule by mouth twice daily oseltamivir (TAMIFLU) 75 mg capsule Take 1 capsule by mouth twice daily. 20 capsule 0 06/28/2022 01/03/2023 Discontinued Comment on above: Take 1 capsule by mo ut twice daily. Take 1 capsule by mo uth two times a day. Tamiflu emergency Rx. Take upon onset of influenza symptoms and get tested as soon as possible. pantoprazole 40 mg delayed release oral tablet (20 sources) Proton Pump Inhibitor Start: take 1 tablet by mouth twice daily pantoprazole DR (PROTONIX) 40 mg tablet Indications: Lung replaced by transplant ([facility]) Take 1 tablet by mouth two times a day. 180 tablet 3 10/23/2023 Active Start: 07-28-2021 End: 10-20-2023 take 1 tablet by mouth twice daily pantoprazole DR (PROTONIX) 40 mg tablet Indications: Lung replaced by transplant ([facility]) Take 1 tablet by mouth twice daily. 180 tablet 3 08/17/2022 10/20/2023 Discontinued Comment on above: Take 1 tablet by aldo th twice daily. Take 1 tablet by aldo th twice daily Take 1 tablet by aldo th two times a day. predniSONE 5 mg oral tablet (20 sources) Start: 07-28-2021 End: 10-12-2023 take 1 tablet by mouth once daily predniSONE (DELTASONE) 5 mg tablet Indications: Lung replaced by transplant ([facility]) Take 1 tablet by mouth once daily. 90 tablet 3 10/13/2023 Active Comment on above: TAKE 1 TABLET BY ALDO TH ONCE DAILY Take 1 tablet by aldo th once daily. propranolol hydrochloride 40 mg oral tablet (20 sources) beta-Adrenergic Shayy Start: 11-09-2023 End: 04-03-2024 take 1 tablet by mouth three times daily propranolol (INDERAL) 40 mg tablet Indications: Essential tremor Take 1 tablet by mouth three times a day. 90 tablet 11 04/03/2024 Active Start: 09-29-2023 End: 11-09-2023 take 1 tablet by mouth three times daily propranolol (INDERAL) 20 mg tablet Indications: Essential tremor take 1 tablet by mouth three times daily 90 tablet 0 10/31/2023 11/09/2023 Discontinued Start: 08-09-2023 take 1 tablet by aldo th three times daily propranolol (INDERAL) 20 mg tablet Indications: Essential tremor Take 1 tablet by mouth three times a day. 90 tablet 0 08/09/2023 Active Start: 03-17-2022 End: 08-08-2023 take 1 tablet by mouth three times daily propranolol (INDERAL) 20 mg tablet Indications: Essential tremor Take 1 tablet by mouth three times daily. 90 tablet 5 08/19/2022 02/01/2023 Discontinued Start: 10-22-2021 End: 03-15-2022 take 1 tablet by mouth three times daily propranolol (INDERAL) 20 mg tablet Indications: Essential tremor Take 1 tablet by mouth three times daily. 90 tablet 5 10/22/2021 03/15/2022 Discontinued Comment on above: Take 1 tablet by aldo th three times daily. TAKE 1 TABLET BY ALDO TH THREE TIMES DAILY Take 1 tablet by aldo th three times a day. sulfamethoxazole 400 mg / trimethoprim 80 mg oral tablet (20 sources) Dihydrofolate Reductase Inhibitor Antibacterial, Sulfonamide Antimicrobial Start: 06-28-20 End: 06-12-20 take 2 tablets by mouth three times weekly sulfamethoxazol e-trimethoprim (BACTRIM) 400-80 mg per tablet Take 2 tablets by mouth three times a week. 36 tablet 11 06/12/2024 Active Start: 01-15-2021 End: 06-28-2022 sulfamethoxazole-trimethopri m (BACTRIM) 400-80 mg per tablet Take 1 tab on Mondays and Fridays 25 tablet 3 12/29/2021 06/28/2022 Discontinued Comment on above: Take 1 tab on Monday s and Fridays Take 2 tablets by mo ut three times a week. TAKE 2 TABLETS BY MO UT 3 TIMES A WEEK TAKE 2 TABLETS BY MO UT THREE TIMES A WEEK tacrolimus 1 mg oral capsule (20 sources) Calcineurin Inhibitor Immunosuppressant Start: 02-13-20 End: 05-02-20 take 1 capsule by mouth twice daily tacrolimus IR (PROGRAF) 1 mg capsule Indications: 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) Take 1 capsule by mouth two times a day. 180 capsule 3 05/02/2024 05/02/2025 Active Start: 02-13-2024 End: 02-12-2025 take 1 capsule by mouth once daily in the morning tacrolimus IR (PROGRAF) 0.5 mg capsule Take 1 capsule by mouth every morning. 90 capsule 3 02/13/2024 02/12/2025 Active Start: 02-01-2024 End: 02-13-2024 take 1 capsule by mouth once daily in the morning, then take 1 capsule by mouth once daily in the evening tacrolimus IR (PROGRAF) 1 mg capsule Indications: 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) TAKE ONE CAPSULE BY MOUTH EVERY MORNING AND ONE CAPSULE EVERY EVENING. 180 capsule 0 02/01/2024 02/13/2024 Discontinued Start: 11-30-2023 End: 02-01-2024 take 2 capsules by mouth once daily in the morning, then take 1 capsule by mouth once daily in the evening tacrolimus IR (PROGRAF) 1 mg capsule Indications: 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) Take 2 capsules by mouth every morning AND 1 capsule every evening. 270 capsule 3 11/30/2023 02/01/2024 Discontinued Start: 01-03-2023 End: 11-30-2023 take 1 capsule by mouth once daily in the morning, then take 1 capsule by mouth once daily in the evening tacrolimus IR (PROGRAF) 1 mg capsule Indications: 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) Take 1 capsule by mouth every morning AND 1 capsule every evening. 270 capsule 3 01/03/2023 11/30/2023 Discontinued Start: 07-13-2022 End: 01-03-2023 take 2 capsules by mouth once daily in the morning, then take 1 capsule by mouth once daily in the evening tacrolimus IR (PROGRAF) 1 mg capsule Indications: 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) Take 2 capsules by mouth every morning AND 1 capsule every evening. 270 capsule 3 08/17/2022 01/03/2023 Discontinued Start: 07-13-2022 End: 07-26-2022 take 1 capsule by mouth twice daily tacrolimus IR (PROGRAF) 0.5 mg capsule Take 1 capsule by mouth twice daily. 0 07/13/2022 07/26/2022 Discontinued (Adjust Sig - Block E-Cancel) Start: 06-27-2022 End: 11-30-2023 take 1 capsule by mouth once daily in the morning tacrolimus IR (PROGRAF) 0.5 mg capsule Take 1 capsule by mouth every morning. 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 0 06/27/2022 07/13/2022 Discontinued (Adjust Sig - Block E-Cancel) Start: 03-02-2021 End: 02-16-2023 take 1 capsule by mouth twice daily tacrolimus IR (PROGRAF) 1 mg capsule Indications: 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) Take 3 capsules by mouth twice daily. 540 capsule 3 05/18/2022 05/23/2022 Discontinued (Adjust Sig - Block E-Cancel) Comment on above: Take 3 capsules by m outh twice daily. TAKE 3 CAPSULES BY M OUTH TWICE DAILY Take 3 capsules by m outh every morning AND 2 capsules every evening. Take 1 capsule by mo uth once daily. Take 2 capsules by m outh every morning AND 2 capsules every evening. Take 1 capsule by mo uth twice daily. Take 1 capsule by mo uth every morning. Take 2 capsules by m outh every morning AND 1 capsule every evening. Take 1 capsule by mo uth every evening. Take 1 capsule by mo uth every morning AND 1 capsule every evening. traMADol hydrochloride 50 mg oral tablet (2 sources) Opioid Agonist Start: 11-06-19 End: 11-13-19 take 1 tablet by mouth every eight hours as needed for pain traMADol (ULTRAM) 50 mg tablet Indications: Acute pain of left knee Take 1 tablet by mouth every 8 hours as needed for pain for up to 7 days. 21 tablet 0 11/06/2023 11/13/2023 Active Comment on above: Take 1 tablet by aldo every 8 hours as needed for pain for up to 7 days. valGANciclovir 450 mg oral tablet (20 sources) Start: 06-30-20 End: 12-27-19 24 take 2 tablets by mouth once daily valGANciclovir (VALCYTE) 450 mg tablet Take 2 tablets by mouth once daily. 180 tablet 3 07/24/2023 Active Start: 06-28-2022 End: 12-25-2022 take 2 tablets by mouth once daily valGANciclovir (VALCYTE) 450 mg tablet Take 2 tablets by mouth once daily. 60 tablet 11 06/28/2022 12/25/2022 Active Start: 03-17-2021 End: 06-28-2022 take 1 tablet by mouth once daily valGANciclovir (VALCYTE) 450 mg tablet Take 1 tablet by mouth once daily 90 tablet 3 02/24/2022 06/28/2022 Discontinued Comment on above: Take 1 tablet by aldo once daily Take 2 tablets by [facility] once daily. Take 2 tablets by mo [facility] once daily vitamin b12 1 mg oral tablet (20 sources) Vitamin B12 Start: 6 take 1 tablet by mouth once daily cyanocobalamin (VITAMIN B-12) 1,000 mcg tab Take 1 tablet by mouth once daily. 0 02/29/2016 Active Comment on above: Take 1 tablet by aldo once daily. warfarin sodium 5 mg oral tablet (20 sources) Vitamin K Antagonist Start: warfarin (COUMADIN) 5 mg tablet 5mg every day except 7.5mg on Saturdays 135 tablet 3 11/30/2023 Active Start: 09-26-2023 warfarin (COUM GEORGE) 7.5 mg tablet 7.5mg four days a week, 5mg three days a week 180 tablet 3 09/26/2023 Active Start: 09-26-2023 End: 11-30-2023 warfarin (COUMADIN) 5 mg tab let 7.5mg four days a week, 5mg three days a week 135 tablet 3 09/26/2023 11/30/2023 Discontinued Start: 02-01-2023 warfarin (COUM GEORGE) 7.5 mg tablet take 7.5 mg Tues, Thurs, Sat, Sun , and 11.25 Mon, Wed, Fri 180 tablet 3 02/01/2023 Active Start: 01-03-2023 End: 09-05-2023 warfarin (COUMADIN) 5 mg tab let 7.5 mg every day except 5 mg on Monday. Adjust as directed 01/03/2023 09/05/2023 Discontinued Start: 05-10-2022 End: 01-03-2023 take 1.5 tablets by mouth once daily warfarin (COUMADIN) 5 mg tablet Take 1.5 tablets by mouth once daily. Adjust as directed 180 tablet 3 05/10/2022 01/03/2023 Discontinued (Adjust Sig - Block E-Cancel) Start: 08-18-2021 End: 01-03-2023 warfarin (COUMADIN) 7.5 mg t ablet take 7.5 mg Tues, Thurs, Sat, Sun , and 11.25 Mon, Wed, Fri 180 tablet 3 08/18/2021 01/03/2023 Discontinued Comment on above: take 7.5 mg Tues, Th urs, Sat, Sun , and 11.25 Mon, Wed, Fri Take 1.5 tablets by mouth once daily. Adjust as directed 7.5 mg every day exc ept 5 mg on Monday. Adjust as directed 7.5mg four days a we ek, 5mg three days a week 5mg every day except 7.5mg on Saturdays Completed/Discontinued Medications Medication Drug Class(es) Dates Sig (Normalized) Sig (Original) acetaminophen 325 mg oral capsule (20 sources) End: 08-29-2023 acetaminophen 325 mg cap Take by mouth. 08/29/2023 Discontinued Comment on above: Take by mouth. azelastine hydrochloride 0.137 mg/actuat metered dose nasal spray (20 sources) Histamine-1 Receptor Antagonist Start: 03-07-2023 End: 01-16-2024 take 1 spray(s) nasal route twice daily azelastine 0.1% nasal spray Indications: Seasonal allergic rhinitis, unspecified trigger Use 1 [place] in each nostril twice daily. 30 mL 1 03/07/2023 01/16/2024 Discontinued Comment on above: Use 1 [place] in each nostril twice daily. bacitracin 0.5 unt/mg topical ointment (6 sources) Start: 02-29-2024 End: 03-07-2024 bacitracin 500 unit/gram ointment Apply 1 application to affected area two times a day for 7 days. 30 g 0 02/29/2024 03/07/2024 furosemide 20 mg oral tablet (14 sources) Loop Diuretic Start: 02-07-2023 End: 05-02-2023 take 1 tablet by mouth once daily as needed furosemide (LASIX) 20 mg tablet Indications: Pain and swelling of right lower leg Take 1 tablet by mouth once daily as needed. 7 tablet 0 03/07/2023 05/02/2023 Discontinued Comment on above: Take 1 tablet by aldo th once daily. Take 1 tablet by aldo th once daily as needed. naltrexone hydrochloride 50 mg oral tablet (20 sources) Opioid Antagonist Start: 12-07-2022 End: 12-16-2022 take 40-44.9 tablets by mouth once daily naltrexone (TREXAN) 50 mg tablet Indications: Class 3 severe obesity due to excess calories with serious comorbidity and body mass index (BMI) of 40.0 to 44.9 in adult (HCC) Take 1 tablet by mouth once daily 60 tablet 0 12/07/2022 12/16/2022 Discontinued Start: 11-26-2021 End: 10-19-2022 take 40-44.9 tablets by mouth once daily naltrexone (TREXAN) 50 mg tablet Indications: Class 3 severe obesity due to excess calories with serious comorbidity and body mass index (BMI) of 40.0 to 44.9 in adult (HCC) Take 1 tablet by mouth once daily 60 tablet 0 08/10/2022 10/19/2022 Discontinued Comment on above: Take 1 tablet by aldo th once daily. Take 1 tablet by aldo th once daily OZEMPIC 0.25 mg or 0.5 mg (2 mg/3 mL) pen (10 sources) Start: End: inject 0.25 mg by subcutaneous injection every week, then inject 0.5 mg by subcutaneous injection every week OZEMPIC 0.25 mg or 0.5 mg (2 mg/3 mL) pen INJECT 0.25MG SUBCUTANEOSULY ONCE A WEEK FOR 4 WEEKS THEN INCREASE TO 0.5MG ONCE A WEEK. 3 mL 2 03/09/2023 05/16/2023 Discontinued Start: 03-09-2023 inject 0.25 mg by [place] bcutaneous injection every week, then inject 0.5 mg by subcutaneous injection every week OZEMPIC 0.25 mg or 0.5 mg (2 mg/3 mL) pen INJECT 0.25MG SUBCUTANEOSULY ONCE A WEEK FOR 4 WEEKS THEN INCREASE TO 0.5MG ONCE A WEEK. 3 mL 2 03/09/2023 Active Comment on above: INJECT 0.25MG SUBCUT ANEOSULY ONCE A WEEK FOR 4 WEEKS THEN INCREASE TO 0.5MG ONCE A WEEK. perflutren lipid microspheres 1.3 mL in NaCl (PF) 0.9% 10 mL injection (DEFINITY) (20 sources) Start: End: perflutren lipid microspheres 1.3 mL in NaCl (PF) 0.9% 10 mL injection (DEFINITY) semaglutide (OZEMPIC) 0.25 mg or 0.5 mg (2 mg/3 mL) pen (13 sources) Start: End: inject 0.25 mg by subcutaneous injection every week, then inject 0.5 mg by subcutaneous injection every week semaglutide (OZEMPIC) 0.25 mg or 0.5 mg (2 mg/3 mL) pen Inject 0.25 mg subcutaneously one time a week. for 4 weeks then increase to 0.5 mg/week 3 Each 1 12/16/2022 03/09/2023 Discontinued Start: 12-16-2022 inject 0.25 mg by [place] bcutaneous injection every week, then inject 0.5 mg by subcutaneous injection every week semaglutide (OZEMPIC) 0.25 mg or 0.5 mg (2 mg/3 mL) pen Inject 0.25 mg subcutaneously one time a week. for 4 weeks then increase to 0.5 mg/week 3 Each 1 12/16/2022 Active Comment on above: Inject 0.25 mg subcu taneously one time a week. for 4 weeks then increase to 0.5 mg/week semaglutide, weight loss, (OSCARVY) 1 mg/0.5 mL pen injector (11 sources) Start: inject 0.5 mL by subcutaneous injection every week semaglutide, weight loss, (WEGOVY) 1 mg/0.5 mL pen injector Inject 0.5 mL subcutaneously one time a week. 4 Each 5 05/16/2023 Active Comment on above: Inject 0.5 mL subcut aneously one time a week. 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 Chronic ulcer of skin (20 sources) Pressure ulcer of sacral region; Translations: [Pressure ulcer of sacral region, unspecified stage] Onset: 06-08-2015 09-06-2021 Chronic E Codes: Fall (2 sources) Fall; Translations: [Unspecified fall, subsequent encounter] Episodic Esophageal disorders (3 sources) Gastroesophageal reflux disease; Translations: [Gastro-esophageal reflux disease without esophagitis] Chronic Essential hypertension (15 sources) Essential hypertension; Translations: [Essential (primary) hypertension] Onset: 03-06-2024 Chronic Headache; including migraine (20 sources) Migraine without aura; Translations: [Migraine without aura, not intractable, without status migrainosus] Onset: 11-18-2013 09-02-2015 Chronic Immunity disorders (20 sources) Immunosuppression; Translations: [Immunodeficiency, unspecified] Chronic Malaise and fatigue (2 sources) Other malaise; Translations: [Other fatigue] Onset: 07-02-2018 Episodic Mood disorders (3 sources) Recurrent major depression in full remission; Translations: [Major depressive disorder, recurrent, in full remission] Onset: 01-16-2024 Chronic Other aftercare (20 sources) Transplant follow-up; Translations: [Encounter for aftercare following other organ transplant] Onset: 08-21-2015 10-25-2018 Chronic Other aftercare (1 source) Encounter for aftercare following other organ transplant; Translations: [Care after organ transplant] Onset: 03-06-2024 Chronic Other aftercare (6 sources) Long-term current use of systemic steroid; Translations: [custodial (current) use of systemic steroids] Episodic Other and unspecified benign neoplasm (1 source) Multiple benign melanocytic nevi ; Translations: [Melanocytic nevi, unspecified] 12-12-2023 Episodic Other and unspecified benign neoplasm (1 source) Senile angioma; Translations: [Hemangioma of skin and subcutaneous tissue] 12-12-2023 Episodic Other connective tissue disease (2 sources) Pain of right lower leg; Translations: [Pain in right lower leg] Episodic Other female genital disorders (2 sources) Abnormal uterine bleeding; Translations: [Abnormal uterine and vaginal bleeding, unspecified] Chronic Other hereditary and degenerative nervous system conditions (10 sources) Essential tremor; Translations: [Essential tremor] Chronic Other infections; including parasitic (1 source) Personal history of other infectious and parasitic diseases; Translations: [History of COVID-19] Episodic Other injuries and conditions due to external causes (1 source) Injury of left knee; Translations: [Unspecified injury of left lower leg, initial encounter] 10-27-2023 Episodic Other lower respiratory disease (20 sources) H/O: lung recipient; Translations: [Lung transplant status] Onset: 07-15-2015 09-06-2021 Chronic Other lower respiratory disease (2 sources) Lung transplant status; Translations: [Lung replaced by transplant ([facility])] Onset: 09-06-2021 Chronic Other nervous system disorders (20 sources) Neuropathy; Translations: [Polyneuropathy, unspecified] Onset: 09-01-2016 09-01-2016 Chronic Other nervous system disorders (4 sources) Idiopathic peripheral neuropathy; Translations: [Hereditary and idiopathic neuropathy, unspecified] 10-17-2023 Chronic Other nervous system disorders (1 source) Critical illness polyneuropathy; Translations: [Critical illness polyneuropathy] 11-09-2023 Chronic Other nervous system disorders (1 source) Critical illness polyneuropathy; Translations: [Critical illness neuropathy (HCC)] Onset: 11-20-2023 Chronic Other nervous system disorders (1 source) Hereditary and idiopathic neuropathy, unspecified; Translations: [Idiopathic peripheral neuropathy] Onset: 11-09-2023 Chronic Other nervous system disorders (1 source) Tremor; Translations: [Tremor, unspecified] Episodic Other non-traumatic joint disorders (1 source) Effusion of joint of left knee; Translations: [Effusion, left knee] 11-07-2023 Episodic Other nutritional; endocrine; and metabolic disorders (20 sources) Obese class II; Translations: [Obesity, unspecified] Onset: 03-05-2018 03-05-2018 Chronic Other nutritional; endocrine; and metabolic disorders (4 sources) Obesity; Translations: [Obesity, unspecified] Chronic Other nutritional; endocrine; and metabolic disorders (20 sources) Severe obesity; Translations: [Morbid (severe) obesity due to excess calories] Chronic Other nutritional; endocrine; and metabolic disorders (1 source) Hypervitaminosis D; Translations: [Hypervitaminosis D] Chronic Other nutritional; endocrine; and metabolic disorders (20 sources) Body mass index 40+ - severely obese; Translations: [Morbid (severe) obesity due to excess calories] Onset: 05-02-2023 05-02-2023 Chronic Other nutritional; endocrine; and metabolic disorders (1 source) Morbid obesity; Translations: [Morbid (severe) obesity due to excess calories] 05-16-2023 Chronic Other nutritional; endocrine; and metabolic disorders (3 sources) Morbid (severe) obesity due to excess calories; Translations: [Class 3 severe obesity without serious comorbidity with body mass index (BMI) of 45.0 to 49.9 in adult, unspecified obesity type (HCC)] Onset: 05-02-2023 Chronic Other nutritional; endocrine; and metabolic disorders (1 source) Body mass index (BMI) 45.0-49.9, adult; Translations: [Class 3 severe obesity without serious comorbidity with body mass index (BMI) of 45.0 to 49.9 in adult, unspecified obesity type (HCC)] Onset: 06-25-2024 Chronic Other nutritional; endocrine; and metabolic disorders (1 source) Body mass index (BMI) 40.0-44.9, adult; Translations: [Class 3 severe obesity without serious comorbidity with body mass index (BMI) of 40.0 to 44.9 in adult, unspecified obesity type (HCC)] Onset: 03-06-2024 Chronic Other skin disorders (1 source) Lentiginosis; Translations: [Other melanin hyperpigmentation] 12-12-2023 Episodic Other upper respiratory disease (1 source) Seasonal allergic rhinitis; Translations: [Other seasonal allergic rhinitis] Chronic Other upper respiratory disease (1 source) Bleeding from nose; Translations: [Epistaxis] 05-31-2023 Episodic Pulmonary heart disease (20 sources) Chronic thromboembolic pulmonary hypertension; Translations: [Chronic thromboembolic pulmonary hypertension] Onset: 01-24-2013 Resolved: 08-21-2015 09-02-2015 Chronic Residual codes; unclassified (20 sources) Obstructive sleep apnea syndrome; Translations: [Obstructive sleep apnea (adult) (pediatric)] Onset: 01-21-2019 06-23-2020 Chronic Residual codes; unclassified (20 sources) Sleep hypoventilation; Translations: [Sleep-related hypoventilation] Onset: 01-23-2019 01-23-2019 Chronic Residual codes; unclassified (1 source) Sleep apnea; Translations: [Sleep apnea, unspecified] 05-16-2023 Chronic Residual codes; unclassified (1 source) Obstructive sleep apnea (adult) (pediatric); Translations: [ABHIJIT (obstructive sleep apnea)] Onset: 06-23-2020 Chronic Unclassified (1 source) Class 3 severe obesity without serious comorbidity with body mass index (BMI) of 45.0 to 49.9 in adult, unspecified obesity type (HCC); Translations: [Class 3 severe obesity without serious comorbidity with body mass index (BMI) of 45.0 to 49.9 in adult, unspecified obesity type (HCC)] Onset: 06-25-2024 Unclassified (1 source) Class 3 severe obesity without serious comorbidity with body mass index (BMI) of 40.0 to 44.9 in adult, unspecified obesity type (HCC); Translations: [Class 3 severe obesity without serious comorbidity with body mass index (BMI) of 40.0 to 44.9 in adult, unspecified obesity type (HCC)] Onset: 06-25-2024 Unclassified (1 source) Bronchiolitis obliterans syndrome (HCC); Translations: [Bronchiolitis obliterans syndrome (HCC)] Onset: 03-06-2024 Unclassified (1 source) Encounter for monitoring tacrolimus therapy; Translations: [Encounter for monitoring tacrolimus therapy] Onset: 10-25-2018 Unclassified (1 source) Bronchiolitis obliterans syndrome; Translations: [Bronchiolitis obliterans syndrome] Onset: 09-26-2023 Past or Other Problems Problem Classification Problem Date Documented Da te Episodic/Chronic Acquired foot deformities (20 sources) Bilateral foot drop; Translations: [Foot drop, right foot] Onset: 09-01-2016 09-01-2016 Episodic Acute and unspecified renal failure (20 sources) Acute renal failure syndrome; Translations: [Acute kidney failure, unspecified] Onset: 04-21-2015 Resolved: 06-08-2015 09-06-2021 Episodic Acute posthemorrhagic anemia (20 sources) Acute posthemorrhagic anemia; Translations: [Acute posthemorrhagic anemia] Onset: 05-29-2015 Resolved: 09-02-2015 09-06-2021 Episodic Administrative/social admission (20 sources) Impaired mobility; Translations: [Other reduced mobility] Onset: 09-01-2016 09-01-2016 Episodic Aortic and peripheral arterial embolism or thrombosis (20 sources) Thrombosis of arteries of upper extremity; Translations: [Embolism and thrombosis of arteries of the upper extremities] Onset: 06-01-2015 Resolved: 06-08-2015 09-06-2021 Chronic Cardiac dysrhythmias (20 sources) Palpitations; Translations: [Palpitations] Onset: 12-24-2014 Resolved: 08-21-2015 08-21-2015 Episodic Coagulation and hemorrhagic disorders (20 sources) Disseminated intravascular coagulation; Translations: [Disseminated intravascular coagulation [defibrination syndrome]] Onset: 05-29-2015 Resolved: 06-08-2015 09-06-2021 Chronic Complication of device; implant or graft (20 sources) Complication of transplanted lung; Translations: [Unspecified complication of lung transplant] Onset: 10-23-2018 10-25-2018 Episodic Complications of surgical procedures or medical care (20 sources) Cardiac insufficiency following cardiac surgery; Translations: [Postprocedural cardiac insufficiency following cardiac surgery] Onset: 05-30-2015 Resolved: 06-15-2015 09-06-2021 Chronic Complications of surgical procedures or medical care (20 sources) Postprocedural respiratory failure; Translations: [Acute postprocedural respiratory failure] Onset: 05-29-2015 Resolved: 08-21-2015 09-06-2021 Episodic Congestive heart failure; nonhypertensive (20 sources) Right ventricular failure; Translations: [Right heart failure, unspecified] Onset: 04-27-2015 Resolved: 08-21-2015 08-21-2015 Chronic Deficiency and other anemia (20 sources) Iron deficiency anemia; Translations: [Iron deficiency anemia, unspecified] Onset: 01-25-2013 Resolved: 04-11-2017 09-06-2021 Episodic Diabetes mellitus without complication (20 sources) Metabolic stress hyperglycemia; Translations: [Hyperglycemia, unspecified] Onset: 05-30-2015 Resolved: 06-11-2015 09-06-2021 Episodic Epilepsy; convulsions (20 sources) Seizure; Translations: [Unspecified convulsions] Onset: 06-22-2015 Resolved: 08-21-2015 09-06-2021 Episodic Fever of unknown origin (20 sources) Fever; Translations: [Fever, unspecified] Onset: 06-08-2015 Resolved: 08-21-2015 09-06-2021 Episodic Fluid and electrolyte disorders (20 sources) Hyponatremia with excess extracellular fluid volume; Translations: [Hypo-osmolality and hyponatremia] Onset: 04-21-2015 Resolved: 09-02-2015 09-06-2021 Episodic Immunizations and screening for infectious disease (2 sources) Vaccination needed; Translations: [Encounter for immunization] Onset: 11-23-2023 Episodic Lymphadenitis (20 sources) Mediastinal lymphadenopathy; Translations: [Localized enlarged lymph nodes] Onset: 01-25-2013 Resolved: 08-21-2015 08-21-2015 Episodic Nutritional deficiencies (20 sources) Deficiency of macronutrients; Translations: [Mild protein-calorie malnutrition] Onset: 06-04-2015 Resolved: 04-11-2017 09-06-2021 Chronic Open wounds of head; neck; and trunk (20 sources) Open wound of chest wall; Translations: [Unspecified open wound of unspecified front wall of thorax without penetration into thoracic cavity, initial encounter] Onset: 05-30-2015 Resolved: 06-11-2015 09-06-2021 Episodic Other aftercare (20 sources) Patient encounter status; Translations: [Encounter for therapeutic drug level monitoring] Onset: 01-25-2013 Resolved: 01-26-2013 09-02-2015 Episodic Other aftercare (20 sources) Long-term current use of anticoagulant; Translations: [custodial (current) use of anticoagulants] Onset: 06-09-2020 06-09-2020 Episodic Other aftercare (17 sources) Long-term current use of tacrolimus; Translations: [Encounter for therapeutic drug level monitoring] Onset: 08-21-2015 10-25-2018 Episodic Other aftercare (1 source) Encounter for therapeutic drug level monitoring; Translations: [Encounter for monitoring tacrolimus therapy] Onset: 10-25-2018 Episodic Other aftercare (1 source) buttermaker (current) use of anticoagulants; Translations: [custodial (current) use of anticoagulants] Onset: 06-09-2020 Episodic Other aftercare (1 source) buttermaker (current) use of systemic steroids; Translations: [buttermaker 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] Onset: 07-31-2023 Episodic Other and ill-defined heart disease (20 sources) Cardiomegaly; Translations: [Cardiomegaly] Onset: 01-25-2013 Resolved: 09-02-2015 09-06-2021 Chronic Other circulatory disease (20 sources) Low blood pressure; Translations: [Hypotension, unspecified] Onset: 05-29-2015 Resolved: 06-15-2015 09-06-2021 Episodic Other circulatory disease (20 sources) Ischemic hand; Translations: [Other disorder of circulatory system] Onset: 06-01-2015 Resolved: 06-05-2015 09-06-2021 Episodic Other circulatory disease (20 sources) Lower limb ischemia; Translations: [Other disorder of circulatory system] Onset: 06-01-2015 Resolved: 06-08-2015 09-06-2021 Episodic Other endocrine disorders (20 sources) Hypoglycemia; Translations: [Hypoglycemia, unspecified] Onset: 05-30-2015 Resolved: 06-02-2015 09-06-2021 Chronic Other gastrointestinal disorders (20 sources) Swollen abdomen; Translations: [Abdominal distension (gaseous)] Onset: 06-15-2015 Resolved: 06-16-2015 09-06-2021 Episodic Other gastrointestinal disorders (20 sources) Ascites; Translations: [Other ascites] Onset: 07-13-2015 Resolved: 08-21-2015 09-06-2021 Episodic Other liver diseases (20 sources) Ischemic hepatitis; Translations: [Acute and subacute hepatic failure without coma] Onset: 05-30-2015 Resolved: 06-05-2015 09-06-2021 Episodic Other lower respiratory disease (20 sources) Dyspnea on exertion; Translations: [Other forms of dyspnea] Onset: 01-25-2013 Resolved: 09-02-2015 09-02-2015 Episodic Other lower respiratory disease (20 sources) Multiple nodules of lung; Translations: [Other nonspecific abnormal finding of lung field] Onset: 01-25-2013 Resolved: 09-02-2015 09-06-2021 Episodic Other lower respiratory disease (20 sources) Hypoxemia; Translations: [Hypoxemia] Onset: 07-28-2014 Resolved: 08-21-2015 08-21-2015 Episodic Other lower respiratory disease (1 source) Wheezing; Translations: [Wheezing] Onset: 09-26-2023 Episodic Other nervous system disorders (20 sources) Postoperative pain ; Translations: [Other acute postprocedural pain] Onset: 06-27-2015 09-06-2021 Episodic Other nervous system disorders (20 sources) Acute postoperative pain; Translations: [Other acute postprocedural pain] Onset: 05-29-2015 Resolved: 07-01-2015 09-06-2021 Episodic Other nervous system disorders (20 sources) Abnormal gait; Translations: [Unspecified abnormalities of gait and mobility] Onset: 12-24-2015 Resolved: 04-11-2017 04-11-2017 Episodic Other non-traumatic joint disorders (7 sources) Pain in left knee; Translations: [Pain in joint, lower leg] Onset: 11-07-2023 11-07-2023 Episodic Other non-traumatic joint disorders (1 source) Effusion, left knee; Translations: [Knee effusion, left] Onset: 11-07-2023 Episodic Other screening for suspected conditions (not mental disorders or infectious disease) (6 sources) Suspected clinical finding; Translations: [Encounter for observation for other suspected diseases and conditions ruled out] Onset: 07-31-2023 11-21-2023 Episodic Other skin disorders (20 sources) Night sweats; Translations: [Generalized hyperhidrosis] Onset: 01-24-2013 Resolved: 08-21-2015 09-06-2021 Episodic Other upper respiratory disease (20 sources) Vocal cord paralysis; Translations: [Paralysis of vocal cords and larynx, unspecified] Onset: 03-31-2014 Resolved: 09-02-2015 09-02-2015 Chronic Other upper respiratory infections (1 source) Acute upper respiratory infection, unspecified; Translations: [Viral URI with cough] Onset: 09-26-2023 Episodic Phlebitis; thrombophlebitis and thromboembolism (20 sources) Thromboembolism of vein; Translations: [Acute embolism and thrombosis of unspecified vein] Onset: 01-24-2013 09-06-2021 Episodic Residual codes; unclassified (20 sources) History of extracorporeal membrane oxygenation; Translations: [Personal history of extracorporeal membrane oxygenation (ECMO)] Onset: 05-30-2015 Resolved: 06-16-2015 09-06-2021 Episodic Superficial injury; contusion (8 sources) Hematoma of left knee region; Translations: [Contusion of left knee, subsequent encounter] Onset: 02-29-2024 11-30-2023 Episodic Unclassified (20 sources) SUMMARY Onset: 01-24-2013 Resolved: 02-02-2013 Results Test Name Value Interpretation Reference Range Facility XR Chest PA and Lateralon IMPRESSION: Please see body of the report. 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 Lungs and pleura: Status post bilateral lung transplant. No new focal lung consolidation is seen. No substantial pleural effusion is seen. There is no pneumothorax. Cardiomediastinal silhouette: Stable cardiomediastinal silhouette. Status post median sternotomy and tricuspid valve annuloplasty/repair. Bones and soft tissues: The vertebral bodies are well aligned and the vertebral body heights are maintained. DIVISION OF RADIOLOGY Provider, Apolonia Jesenia 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 Lungs and pleura: Status post bilateral lung transplant. No new focal lung consolidation is seen. No substantial pleural effusion is seen. There is no pneumothorax. Cardiomediastinal silhouette: Stable cardiomediastinal silhouette. Status post median sternotomy and tricuspid valve annuloplasty/repair. Bones and soft tissues: The vertebral bodies are well aligned and the vertebral body heights are maintained. IMPRESSION IMPRESSION: Please see body of the report. Plastics Spreading Machine Operator: DESIRAE Transcribe Date/Time: Jun 25 2024 3:53P Dictated by : MARITZA ELLISON MD This examination was interpreted and the report reviewed and electronically signed by: MARITZA ELLISON MD on Jun 25 2024 3:54PM EST [facility] Radiology Study observation (narrative) [facility] XR Chest PA and LateralOrder ed By: [facility] Provider on 06-25-2024 [facility] XR Chest PA and Lateralon IMPRESSION: See result Plastics Spreading Machine Operator: PSCMarlena Transcribe Date/Time: Mar 06 2024 2:26P Dictated by : MANOHAR CUEVA MD This examination was interpreted and the report reviewed and electronically signed by: MANOHAR CUEVA MD on Mar 06 2024 2:27PM EST DIVISION OF RADIOLOGY * * *Final Report* * * DATE OF EXAM: Mar 06 2024 8:36AM AOX 5291 - XR CHEST 2V FRONTAL/LAT / PROCEDURE REASON: multiple diagnoses * * * * Physician Interpretation * * * * EXAMINATION: CHEST RADIOGRAPH (2 VIEW FRONTAL & LATERAL) CLINICAL HISTORY: 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 Lungs and pleura: Again noted are changes of bilateral lung transplants. Mild increase of inflammatory airway thickening in the mid and lower lungs. This could be secondary to the inflammatory airway changes or mild degree of chronic rejection. No consolidation or mass lesion. No pleural effusion or pneumothorax. Cardiomediastinal silhouette: Unchanged. Bones and soft tissues: Status post median sternotomy with normally aligned sternal wires. 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 Lungs and pleura: Again noted are changes of bilateral lung transplants. Mild increase of inflammatory airway thickening in the mid and lower lungs. This could be secondary to the inflammatory airway changes or mild degree of chronic rejection. No consolidation or mass lesion. No pleural effusion or pneumothorax. Cardiomediastinal silhouette: Unchanged. Bones and soft tissues: Status post median sternotomy with normally aligned sternal wires. IMPRESSION IMPRESSION: See result Plastics Spreading Machine Operator: PSCMarlena Transcribe Date/Time: Mar 06 2024 2:26P Dictated by : MANOHAR CUEVA MD This examination was interpreted and the report reviewed and electronically signed by: MANOHAR CUEVA MD on Mar 06 2024 2:27PM EST [facility] Radiology Study observation (narrative) [facility] XR Chest PA and LateralOrder ed By: [facility] Provider on 03-06-2024 [facility] ED NOTEon 02-29-2024 ED NOTE HNO ID: [id number] Author: JUAN JOHNSON RN Service: Nursing Author Type: Registered Nurse Type: ED Notes Filed: 02/29/2024 12:36 Note Text: Discharge instructions provided to patient. Patient verbalized understanding. [facility] ED NOTE HNO ID: [id number] Author: JUAN JOHNSON RN Service: Nursing Author Type: Registered Nurse Type: ED Notes Filed: 02/29/2024 12:20 Note Text: Dressing to bilateral great toes applied at this time. [facility] ED NOTE HNO ID: [id number] Author: ANDREW BEAVERS, LESLY Service: Nursing Author Type: Registered Nurse Type: ED Notes Filed: 02/29/2024 10:36 Note Text: Patient presents with bilateral great toe abrasions per patient. Patient got out of pool yesterday and noticed skin hanging off toes. Patient has them bandaged but they are bleeding through. Patient is on blood thinners. Patient has neuropathy with foot drop bilaterally. Normal [facility] ED PROV NOTEon 02-29-2024 ED PROV NOTE HNO ID: [id number] Author: JASON PATEL DO Service: Emergency Medicine Author Type: Physician Agriculture Sales Account Manager Type: ED Provider Notes Filed: 03/01/2024 07:21 Note Text: Attestation signed by Jason Patel DO at 03/01/2024 7:21 AM Patient was seen and evaluated by midlevel provider only, I was not involved in the care of the patient however I was available for consultation ED Provider Note Patient Name: Hannah Stapleton : 1995 SERVICE DATE: 02/29/24 History Patient presents with: Abrasion: To bilateral great toes CC: bilateral great toe abrasions HPI: The patient is a 29-year-old female presenting today due to bilateral great toe abrasions. She reports that [place] been at camp for the past few days and yesterday she was in the pool. 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 She states that when she got out of the pool she noticed flaps of skin hanging off of her toes and she was bleeding. She reports that she is taking Coumadin. She states that they cut off the flaps and then bandaged the toes. They bled through which prompted the patient to come in today. The toes are no longer bleeding History provided by: Patient History limited by: n/a. 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) 07/15/2015 Bilateral Lung Tx on 05/29/15 for CTEPH IS: per ALD Bronch 07/16/15: LRSG Grade A0 B0 Lung transplant recipient ([facility]) Migraine Obesity, Class II, BMI 35-39.9 03/05/2018 ABHIJIT (obstructive sleep apnea) AHI 9.6 01/21/2019 Pulmonary embolism (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) Right heart failure, NYHA class 4 ([facility]) Seizure ([facility]) 06/22/2015 PAST SURGICAL HISTORY Procedure Laterality Date BERGERON CATHETER IR IVC FILTER PLACEMENT 02/01/2013 Vena Tech Permanent Filter LUNG TRANSPLANT,DOUBLE 05/29/15 Annuloplasty ring PAST SURGICAL HISTORY OF 12/2016 root canal FAMILY HISTORY Problem Relation Age of Onset Headache Mother Thyroid Mother other (sarcoidosis) Mother derm Psoriasis Father Diabetes Father Headache Maternal Grandmother Thyroid Maternal Grandmother Dementia Maternal Grandmother Macular Degen Maternal Grandmother Social History Tobacco Use Smoking status: Never Smokeless tobacco: Never Vaping Use Vaping Use: Never used Substance and Sexual Activity Alcohol use: Yes Comment: Seldom Drug use: No Sexual activity: Never ALLERGIES Allergen Reactions Nickel Rash rash Pollen Other: See Comments nose runs Cefzil [Cefprozil] Hives Fentanyl Mental Status Change Patient reports anger issues Lyrica [Pregabalin] Contraindication-[facility] nieves Surgical Lack of efficacy. Pain worse and needed to go back to gabapentin Nsaids (Non-Steroid* Contraindication-Medi nieves Surgical Review of Systems Constitutional: Negative for chills and fever. HENT: Negative for congestion, sinus pressure, sinus pain, sneezing, sore throat, tinnitus and voice change. Respiratory: Negative for cough, choking, chest tightness, shortness of breath, wheezing and stridor. Cardiovascular: Negative for chest pain. Gastrointestinal: Negative for abdominal pain, diarrhea, nausea and vomiting. Skin: Positive for wound. Negative for color change, pallor and rash. Physical Exam Vitals [02/29/24 1027] BP Pulse Temp Temp src Resp SpO2 Weight Height 149/81 68 36.7 ?C (98.1 ?F) Temporal 18 95 % 131.5 kg (290 lb) -- Physical Exam Constitutional: General: She is not in acute distress. Appearance: Normal appearance. She is obese. HENT: Head: Normocephalic and atraumatic. Cardiovascular: Rate and Rhythm: Normal rate and regular rhythm. Heart sounds: Normal heart sounds. No murmur heard. No friction rub. No gallop. Pulmonary: Effort: Pulmonary effort is normal. No respiratory distress. Breath sounds: Normal breath sounds. No stridor. No wheezing, rhonchi or rales. Skin: General: Skin is warm. Findings: Lesion (bilateral abrasions of the great toes. Entire pad of the toes involved.) present. Neurological: General: No focal deficit present. Mental Status: She is alert. Psychiatric: Mood and Affect: Mood normal. Behavior: Behavior normal. Thought Content: Thought content normal. Judgment: Judgment normal. Diagnostic Testing ED Labs Ordered and Reviewed - No data to display Procedures ED Course / Clinical Impression Clinical Impressions as of 02/29/24 1126 Abrasion of great toe, unspecified laterality, initial encounter MDM / Disposition / Plan CC: bilat (more content not included)... Normal [facility] ALLOGEN POST-TX DSA RPTon [facility] XR Chest PA and Lateralon [facility] MR Knee - left WO contraston 11-21-2023 * * *Final Report* * * DATE OF EXAM: Nov 21 2023 11:29AM M2M 0212 - MRI KNEE WO IVCON LT / PROCEDURE REASON: Left knee pain, unspecified chronicity * * * * Physician Interpretation * * * * EXAMINATION: MRI LEFT KNEE and left lower extremity WITHOUT CONTRAST CLINICAL HISTORY: History of acute left knee and leg pain status post fall several weeks ago, with reported left foot drop. TECHNIQUE: Routine non-contrast MRI of the knee MQ: MRK_2B COMPARISON: None RESULT: MENISCI: Medial Meniscus: Intact. Lateral Meniscus: Intact. LIGAMENTS: ACL: Intact PCL: Intact MCL: Intact LCL Complex: Intact CARTILAGE: Medial Femoral Condyle: Normal Medial Tibial Plateau: Normal Lateral Femoral Condyle: Normal Lateral Tibial Plateau: Normal Patella: Normal Trochlea: Normal TENDONS: The distal quadriceps and patellar tendons are intact. The popliteus tendon is intact. BONES AND MARROW: No evidence of fracture or bone marrow replacing process. MUSCLES: Diffuse multicompartment decrease in muscle bulk throughout the distal left lower extremity, with areas of fatty replacement, including anterior tibialis and peroneus muscles (10:16), as well as medial and lateral gastrocnemius muscles (10:13). JOINT FLUID AND SYNOVIUM: No joint effusion. No synovitis. No Ibarra's cyst. OTHER: Ill-defined predominantly T2 hyperintense subcutaneous fluid with internal heterogeneity extending from the prepatellar subcutaneous soft tissues and extending inferolaterally to the level of the proximal lower leg, measuring approximately 14.0 x 2.8 x 2.0 cm (CC X AP X TV). Localizer images: No additional findings. DIVISION OF RADIOLOGY Provider, [facility] - 11/21/2023 * * *Final Report* * * DATE OF EXAM: Nov 21 2023 11:29AM M2M 0212 - MRI KNEE WO IVCON LT / PROCEDURE REASON: Left knee pain, unspecified chronicity * * * * Physician Interpretation * * * * EXAMINATION: MRI LEFT KNEE and left lower extremity WITHOUT CONTRAST CLINICAL HISTORY: History of acute left knee and leg pain status post fall several weeks ago, with reported left foot drop. TECHNIQUE: Routine non-contrast MRI of the knee MQ: MRK_2B COMPARISON: None RESULT: MENISCI: Medial Meniscus: Intact. Lateral Meniscus: Intact. LIGAMENTS: ACL: Intact PCL: Intact MCL: Intact LCL Complex: Intact CARTILAGE: Medial Femoral Condyle: Normal Medial Tibial Plateau: Normal Lateral Femoral Condyle: Normal Lateral Tibial Plateau: Normal Patella: Normal Trochlea: Normal TENDONS: The distal quadriceps and patellar tendons are intact. The popliteus tendon is intact. BONES AND MARROW: No evidence of fracture or bone marrow replacing process. MUSCLES: Diffuse multicompartment decrease in muscle bulk throughout the distal left lower extremity, with areas of fatty replacement, including anterior tibialis and peroneus muscles (10:16), as well as medial and lateral gastrocnemius muscles (10:13). JOINT FLUID AND SYNOVIUM: No joint effusion. No synovitis. No Ibarra's cyst. OTHER: Ill-defined predominantly T2 hyperintense subcutaneous fluid with internal heterogeneity extending from the prepatellar subcutaneous soft tissues and extending inferolaterally to the level of the proximal lower leg, measuring approximately 14.0 x 2.8 x 2.0 cm (CC X AP X TV). Localizer images: No additional findings. IMPRESSION IMPRESSION: ANTEROLATERAL KNEE SUBCUTANEOUS HEMATOMA. INTACT LIGAMENTS AND MENISCI OF THE KNEE. NONSPECIFIC LOWER EXTREMITY MUSCLE ATROPHY WITH REGIONS OF FATTY REPLACEMENT. Plastics Spreading Machine Operator: DESIRAE Transcribe Date/Time: Nov 21 2023 1:20P Dictated by : LADONNA SHARP DO This examination was interpreted and the report reviewed and electronically signed by: GAYLE AKHTAR MD on Nov 21 2023 2:14PM [facility] MR Lower leg - left WO contr mariela 11-21-2023 * * *Final Report* * * DATE OF EXAM: Nov 21 2023 11:11AM M2M 0224 - MRI LOWER LEG WO IVCON LT / PROCEDURE REASON: Encounter for observation for other suspected diseases and conditions ruled out * * * * Physician Interpretation * * * * EXAMINATION: MRI LEFT KNEE and left lower extremity WITHOUT CONTRAST CLINICAL HISTORY: History of acute left knee and leg pain status post fall several weeks ago, with reported left foot drop. TECHNIQUE: Routine non-contrast MRI of the knee MQ: MRK_2B COMPARISON: None RESULT: MENISCI: Medial Meniscus: Intact. Lateral Meniscus: Intact. LIGAMENTS: ACL: Intact PCL: Intact MCL: Intact LCL Complex: Intact CARTILAGE: Medial Femoral Condyle: Normal Medial Tibial Plateau: Normal Lateral Femoral Condyle: Normal Lateral Tibial Plateau: Normal Patella: Normal Trochlea: Normal TENDONS: The distal quadriceps and patellar tendons are intact. The popliteus tendon is intact. BONES AND MARROW: No evidence of fracture or bone marrow replacing process. MUSCLES: Diffuse multicompartment decrease in muscle bulk throughout the distal left lower extremity, with areas of fatty replacement, including anterior tibialis and peroneus muscles (10:16), as well as medial and lateral gastrocnemius muscles (10:13). JOINT FLUID AND SYNOVIUM: No joint effusion. No synovitis. No Ibarra's cyst. OTHER: Ill-defined predominantly T2 hyperintense subcutaneous fluid with internal heterogeneity extending from the prepatellar subcutaneous soft tissues and extending inferolaterally to the level of the proximal lower leg, measuring approximately 14.0 x 2.8 x 2.0 cm (CC X AP X TV). Localizer images: No additional findings. DIVISION OF RADIOLOGY Provider, [facility] - 11/21/2023 * * *Final Report* * * DATE OF EXAM: Nov 21 2023 11:11AM M2M 0224 - MRI LOWER LEG WO IVCON LT / PROCEDURE REASON: Encounter for observation for other suspected diseases and conditions ruled out * * * * Physician Interpretation * * * * EXAMINATION: MRI LEFT KNEE and left lower extremity WITHOUT CONTRAST CLINICAL HISTORY: History of acute left knee and leg pain status post fall several weeks ago, with reported left foot drop. TECHNIQUE: Routine non-contrast MRI of the knee MQ: MRK_2B COMPARISON: None RESULT: MENISCI: Medial Meniscus: Intact. Lateral Meniscus: Intact. LIGAMENTS: ACL: Intact PCL: Intact MCL: Intact LCL Complex: Intact CARTILAGE: Medial Femoral Condyle: Normal Medial Tibial Plateau: Normal Lateral Femoral Condyle: Normal Lateral Tibial Plateau: Normal Patella: Normal Trochlea: Normal TENDONS: The distal quadriceps and patellar tendons are intact. The popliteus tendon is intact. BONES AND MARROW: No evidence of fracture or bone marrow replacing process. MUSCLES: Diffuse multicompartment decrease in muscle bulk throughout the distal left lower extremity, with areas of fatty replacement, including anterior tibialis and peroneus muscles (10:16), as well as medial and lateral gastrocnemius muscles (10:13). JOINT FLUID AND SYNOVIUM: No joint effusion. No synovitis. No Ibarra's cyst. OTHER: Ill-defined predominantly T2 hyperintense subcutaneous fluid with internal heterogeneity extending from the prepatellar subcutaneous soft tissues and extending inferolaterally to the level of the proximal lower leg, measuring approximately 14.0 x 2.8 x 2.0 cm (CC X AP X TV). Localizer images: No additional findings. IMPRESSION IMPRESSION: ANTEROLATERAL KNEE SUBCUTANEOUS HEMATOMA. INTACT LIGAMENTS AND MENISCI OF THE KNEE. NONSPECIFIC LOWER EXTREMITY MUSCLE ATROPHY WITH REGIONS OF FATTY REPLACEMENT. Plastics Spreading Machine Operator: PSCB Transcribe Date/Time: Nov 21 2023 1:20P Dictated by : LADONNA SHARP DO This examination was interpreted and the report reviewed and electronically signed by: GAYLE AKHTAR MD on Nov 21 2023 2:14PM EST [facility] No Panel Informationon 11-20 IMPRESSION: ANTEROLATERAL KNEE SUBCUTANEOUS HEMATOMA. INTACT LIGAMENTS AND MENISCI OF THE KNEE. NONSPECIFIC LOWER EXTREMITY MUSCLE ATROPHY WITH REGIONS OF FATTY REPLACEMENT. Plastics Spreading Machine Operator: [facility] Transcribe Date/Time: Nov 21 2023 1:20P Dictated by : LADONNA SHARP DO This examination was interpreted and the report reviewed and electronically signed by: GAYLE AKHTAR MD on Nov 21 2023 2:14PM EST DIVISION OF RADIOLOGY Radiology Study observation (narrative) [facility] No Panel InformationOrdered By: [facility]cf Provider on 11-21-2023 [facility] PT panel Coag (PPP)on 2023 INR Coag (Bld) [Relative time] 4.4 {INR} Abnormal 2.0 - 3.0 [facility] XR Knee - left 4 Viewson IMPRESSION: No acute abnormality Plastics Spreading Machine Operator: PSCB Transcribe Date/Time: Oct 27 2023 2:58P Dictated by : PELON HORTA MD This examination was interpreted and the report reviewed and electronically signed by: PELON HORTA MD on Oct 27 2023 2:59PM [facility] DIVISION OF RADIOLOGY * * *Final Report* * * DATE OF EXAM: Oct 27 2023 2:51PM WOX 5202 - XR KNEE 4V AP/PA BOTH+LAT/CHERYL LT / PROCEDURE REASON: Knee injuries, left, initial encounter * * * * Physician Interpretation * * * * PROCEDURE: Left knee INDICATION: Knee injuries, left, initial encounter .Left knee pain, swelling, and bruising after falling on knee 5 days ago. TECHNIQUE: XR KNEE 4V AP/PA BOTH+LAT/CHERYL LT COMPARISON: 01/24/2023, limited images FINDINGS: No fracture or dislocation. Joint spaces are maintained. No significant joint effusion. [facility]27/[facility]23 * * *Final Report* * * DATE OF EXAM: Oct 27 2023 2:51PM WOX 5202 - XR KNEE 4V AP/PA BOTH+LAT/CHERYL LT / PROCEDURE REASON: Knee injuries, left, initial encounter * * * * Physician Interpretation * * * * PROCEDURE: Left knee INDICATION: Knee injuries, left, initial encounter .Left knee pain, swelling, and bruising after falling on knee 5 days ago. TECHNIQUE: XR KNEE 4V AP/PA BOTH+LAT/CHERYL LT COMPARISON: 01/24/2023, limited images FINDINGS: No fracture or dislocation. Joint spaces are maintained. No significant joint effusion. IMPRESSION IMPRESSION: No acute abnormality Plastics Spreading Machine Operator: [facility] Transcribe Date/Time: Oct 27 2023 2:58P Dictated by : PELON HORTA MD This examination was interpreted and the report reviewed and electronically signed by: PELON HORTA MD on Oct 27 2023 2:59PM [facility] Radiology Study observation (narrative) [facility] XR Knee - left 4 ViewsOrdere d By: [facility]cf Provider on 10-27-2023 [facility] XR CHEST 2V FRONTAL/LATon [facility] XR Knee - right 4 Viewson IMPRESSION: Right knee: Anterior soft tissue swelling. No radiographic evidence of acute osseous abnormality. Left knee: No radiographic evidence of acute osseous abnormality. Plastics Spreading Machine Operator: [facility] Transcribe Date/Time: Jan 24 2023 12:03P Dictated by : NOLVIA PIKE MD This examination was interpreted and the report reviewed and electronically signed by: NOLVIA PIKE MD on Jan 24 2023 12:05PM [facility] DIVISION OF RADIOLOGY * * *Final Report* * * DATE OF EXAM: Jan 24 2023 11:55AM WOX [id number] - XR KNEE 4V AP/PA BOTH+LAT/CHERYL RT / PROCEDURE REASON: multiple diagnoses * * * * Physician Interpretation * * * * TITLE: XR KNEE 4V AP/PA BOTH+LAT/CHERYL RT CLINICAL INDICATION: Status post fall TECHNIQUE: AP/PA/merchant radiographs of both knees and lateral radiograph of the right knee COMPARISON: None FINDINGS: Right knee: Anterior soft tissue swelling. Trace fluid in the suprapatellar joint space. No acute fracture or dislocation identified. Joint spaces preserved. Left knee: No acute fracture or dislocation. Joint spaces preserved DIVISION OF RADIOLOGY Provider, Eli Garcia - 01/24/2023 * * *Final Report* * * DATE OF EXAM: Jan 24 2023 11:55AM WOX [id number] - XR KNEE 4V AP/PA BOTH+LAT/CHERYL RT / PROCEDURE REASON: multiple diagnoses * * * * Physician Interpretation * * * * TITLE: XR KNEE 4V AP/PA BOTH+LAT/CHERYL RT CLINICAL INDICATION: Status post fall TECHNIQUE: AP/PA/merchant radiographs of both knees and lateral radiograph of the right knee COMPARISON: None FINDINGS: Right knee: Anterior soft tissue swelling. Trace fluid in the suprapatellar joint space. No acute fracture or dislocation identified. Joint spaces preserved. Left knee: No acute fracture or dislocation. Joint spaces preserved IMPRESSION IMPRESSION: Right knee: Anterior soft tissue swelling. No radiographic evidence of acute osseous abnormality. Left knee: No radiographic evidence of acute osseous abnormality. Plastics Spreading Machine Operator: [facility] Transcribe Date/Time: Jan 24 2023 12:03P Dictated by : NOLVIA PIKE MD This examination was interpreted and the report reviewed and electronically signed by: NOLVIA PIKE MD on Jan 24 2023 12:05PM EST [facility] Radiology Study observation (narrative) [facility] XR Knee - right 4 ViewsOrder ed By: Ccf Provider on 01-24-2023 [facility] XR ESOPHAGRAMon 08-17-2022 [facility] PT panel Coag (PPP)on 2021 INR Coag (Bld) [Relative time] 2.0 {INR} [facility] PT panel Coag (PPP)on 2021 INR Coag (Bld) [Relative time] 2.4 {INR} [facility] DXA-AXIAL SKELETON WITH VFAo n 02-17-2022 [facility] XR CHEST 2V FRONTAL/LATon [facility] XR ANKLE TWO VIEWS LEFTon XR ANKLE TWO VIEWS LEFT ORIGINAL XR XR ANKLE TWO VIEWS LEFT, Clinical Statement: lt ankle pain, Comparison: None Findings: Study is suboptimal without an oblique ankle mortise view. No acute fracture, dislocation, lytic process or periosteal reaction is seen in the visualized bones of the LEFT ankle. No significant degenerative or erosive type of arthritis or soft tissue calcification. No osteochondral defect is seen. IMPRESSION: Suboptimal evaluation without a 3rd oblique mortise view. No significant skeletal abnormality in the LEFT ankle. Interpreted By: Naren Sepulveda MD Preliminary Report By: Naren Sepulveda MD Electronically Signed By: Naren Sepulveda MD Dictated Date: 01/06/2021 6:29:40 PM Prelim Date: 01/06/2021 6:29:40 PM Sign Date: 01/06/2021 6:30:26 PM Ordering Provider:Justin Santana [facility] ([place]) XR ANKLE TWO VIEWS RIGHTon 0 01-06-2021 XR ANKLE TWO VIEWS RIGHT ORIGINAL XR XR ANKLE TWO VIEWS RIGHT, Clinical Statement: rt ankle pain, Comparison: None Findings: Suboptimal evaluation without a 3rd oblique ankle mortise view. No acute fracture, dislocation, lytic process or periosteal reaction is seen in the visualized bones of the RIGHT ankle. No significant degenerative or erosive type of arthritis or soft tissue calcification. No osteochondral defects. IMPRESSION: Suboptimal evaluation without a 3rd oblique ankle mortise view. No significant skeletal abnormality in the RIGHT ankle. Interpreted By: Naren Sepulveda MD Preliminary Report By: Naren Sepulveda MD Electronically Signed By: Naren Sepulveda MD Dictated Date: 01/06/2021 6:30:31 PM Prelim Date: 01/06/2021 6:30:31 PM Sign Date: 01/06/2021 6:31:09 PM Ordering Provider:Justin Santana [facility]) Vital Signs Date Time Vital Sign Value Performing Clinician Andrez shaw 06-25-2024 11:59-0400 Body height 166.5 cm Jeni Daly MD Work Phone: [facility] 06-25-2024 11:59-0400 Body mass index (BMI) [Ratio] 47.98 kg/m2 Jeni Daly MD Work Phone: [facility] 06-25-2024 11:59-0400 Body temperature 97 [degF] Jeni Daly MD Work Phone: [facility] 06-25-2024 11:59-0400 Body weight 133 kg Jeni Daly MD Work Phone: [facility] 06-25-2024 11:59-0400 Diastolic blood pressure 96 mm[Hg] Jeni Daly MD Work Phone: [facility] 06-25-2024 11:59-0400 Heart rate 73 /min Jeni Daly MD Work Phone: [facility] 06-25-2024 11:59-0400 Respiratory rate 16 /min Jeni Daly MD Work Phone: [facility] 06-25-2024 11:59-0400 SaO2% (BldA) [Mass fraction] 92 % Jeni Daly MD Work Phone: [facility] 06-25-2024 11:59-0400 Systolic blood pressure 138 mm[Hg] Jeni Daly MD Work Phone: [facility] 03-21-2024 14:12-0400 Body temperature 98.71 [degF] Maria C Pardo DPM Work Phone: [facility] 03-06-2024 09:46-0400 Body height 166.5 cm Jeni Daly MD Work Phone: [facility] 03-06-2024 09:46-0400 Body mass index (BMI) [Ratio] 48.16 kg/m2 Jeni Daly MD Work Phone: [facility] 03-06-2024 09:46-0400 Body temperature 98.6 [degF] Jeni Daly MD Work Phone: [facility] 03-06-2024 09:46-0400 Body weight 133.5 kg Jeni Daly MD Work Phone: [facility] 03-06-2024 09:46-0400 Diastolic blood pressure 75 mm[Hg] Jeni Daly MD Work Phone: [facility] 03-06-2024 09:46-0400 Heart rate 76 /min Jeni Daly MD Work Phone: [facility] 03-06-2024 09:46-0400 Respiratory rate 20 /min Jeni Daly MD Work Phone: [facility] 03-06-2024 09:46-0400 SaO2% (BldA) [Mass fraction] 97 % Jeni Daly MD Work Phone: [facility] 03-06-2024 09:46-0400 Systolic blood pressure 106 mm[Hg] Jeni Daly MD Work Phone: [facility] 03-05-2024 14:19-0400 Body temperature 97.81 [degF] Maria C Pardo DP Work Phone: [facility] 01-16-2024 13:30-0400 Body height 170.5 cm Lynne Chan MD Work Phone: [facility] 01-16-2024 13:30-0400 Body mass index (BMI) [Ratio] 45.87 kg/m2 Lynne Chan MD Work Phone: [facility] 01-16-2024 13:30-0400 Body temperature 96.91 [degF] Lynne Chan MD Work Phone: [facility] 01-16-2024 13:30-0400 Body weight 133.36 kg Lynne Chan MD Work Phone: [facility] 01-16-2024 13:30-0400 Diastolic blood pressure 62 mm[Hg] Lynne Chan MD Work Phone: [facility] 01-16-2024 13:30-0400 Heart rate 71 /min Lynne Chan MD Work Phone: [facility] 01-16-2024 13:30-0400 Respiratory rate 18 /min Lynne Chan MD Work Phone: [facility] 01-16-2024 13:30-0400 SaO2% (BldA) [Mass fraction] 97 % Lynne Chan MD Work Phone: [facility] 01-16-2024 13:30-0400 Systolic blood pressure 120 mm[Hg] Lynne Chan MD Work Phone: [facility] 11-30-2023 08:00-0400 Body height 167.6 cm Jeni Daly MD Work Phone: [facility] 11-30-2023 08:00-0400 Body temperature 97 [degF] Jeni Daly MD Work Phone: [facility] 11-30-2023 08:00-0400 Body weight 131 kg Jeni Daly MD Work Phone: [facility] 11-30-2023 08:00-0400 Diastolic blood pressure 80 mm[Hg] Jeni Daly MD Work Phone: [facility] 11-30-2023 08:00-0400 Heart rate 76 /min Jeni Daly MD Work Phone: [facility] 11-30-2023 08:00-0400 Respiratory rate 18 /min Jeni Daly MD Work Phone: [facility] 11-30-2023 08:00-0400 SaO2% (BldA) [Mass fraction] 94 % Jeni Daly MD Work Phone: [facility] 11-30-2023 08:00-0400 Systolic blood pressure 114 mm[Hg] Jeni Daly MD Work Phone: [facility] 11-23-2023 13:39-0400 Body height 167.6 cm Edison Bird MD Work Phone: [facility] 11-23-2023 13:39-0400 Body weight 132.45 kg Edison Bird MD Work Phone: [facility] 11-23-2023 13:39-0400 Diastolic blood pressure 76 mm[Hg] Edison Bird MD Work Phone: [facility] 11-23-2023 13:39-0400 Systolic blood pressure 124 mm[Hg] Edison Bird MD Work Phone: [facility] 11-09-2023 13:02-0500 Body height 165.1 cm Liseth Zale DO Work Phone: [facility] 11-09-2023 13:02-0500 Body weight 129.73 kg Liseth Zale DO Work Phone: [facility] 11-09-2023 13:02-0500 Diastolic blood pressure 81 mm[Hg] Liseth Zale DO Work Phone: [facility] 11-09-2023 13:02-0500 Heart rate 80 /min Liseth Zale DO Work Phone: [facility] 11-09-2023 13:02-0500 Systolic blood pressure 117 mm[Hg] Liseth Zale DO Work Phone: [facility] 10-27-2023 14:15-0500 Body temperature 98.01 [degF] Chari Vladislav SIGNAL TOWER DIRECTOR.LIFE SCIENCE RESEARCH ASSISTANT Work Phone: [facility] 10-27-2023 14:15-0500 Body weight 133.27 kg Charikyle Loomis SIGNAL TOWER DIRECTOR.LIFE SCIENCE RESEARCH ASSISTANT Work Phone: [facility] 10-27-2023 14:15-0500 Diastolic blood pressure 82 mm[Hg] Chari Vladislav SIGNAL TOWER DIRECTOR.LIFE SCIENCE RESEARCH ASSISTANT Work Phone: [facility] 10-27-2023 14:15-0500 Heart rate 85 /min Chari Vladislav SIGNAL TOWER DIRECTOR.LIFE SCIENCE RESEARCH ASSISTANT Work Phone: [facility] 10-27-2023 14:15-0500 Respiratory rate 23 /min Chari Vladislav SIGNAL TOWER DIRECTOR.LIFE SCIENCE RESEARCH ASSISTANT Work Phone: [facility] 10-27-2023 14:15-0500 SaO2% (BldA) [Mass fraction] 97 % Chari Vladislav SIGNAL TOWER DIRECTOR.LIFE SCIENCE RESEARCH ASSISTANT Work Phone: [facility] 10-27-2023 14:15-0500 Systolic blood pressure 128 mm[Hg] Chari Loomis SAMI Work Phone: [facility] 10-17-2023 10:52-0500 Body temperature 97.81 [degF] Maria C Pardo DPM Work Phone: [facility] 05-02-2023 11:42-0400 Body height 170.5 cm Jeni Daly MD Work Phone: [facility] 05-02-2023 11:42-0400 Body temperature 97.59 [degF] Jeni Daly MD Work Phone: [facility] 05-02-2023 11:42-0400 Body weight 125 kg Jeni Daly MD Work Phone: [facility] 05-02-2023 11:42-0400 Diastolic blood pressure 79 mm[Hg] Jeni Daly MD Work Phone: [facility] 05-02-2023 11:42-0400 Heart rate 77 /min Jeni Dayl MD Work Phone: [facility] 05-02-2023 11:42-0400 Respiratory rate 16 /min Jeni Daly MD Work Phone: [facility] 05-02-2023 11:42-0400 SaO2% (BldA) [Mass fraction] 96 % Jeni Daly MD Work Phone: [facility] 05-02-2023 11:42-0400 Systolic blood pressure 113 mm[Hg] Jeni Daly MD Work Phone: [facility] 01-13-2023 08:28-0400 Body height 170.5 cm Lynne Chan MD Work Phone: [facility] 01-13-2023 08:28-0400 Body temperature 97.5 [degF] Lynne Chan MD Work Phone: [facility] 01-13-2023 08:28-0400 Body weight 124.74 kg Lynne Chan MD Work Phone: [facility] 01-13-2023 08:28-0400 Diastolic blood pressure 88 mm[Hg] Lynne Chan MD Work Phone: [facility] 01-13-2023 08:28-0400 Heart rate 97 /min Lynne Chan MD Work Phone: [facility] 01-13-2023 08:28-0400 Respiratory rate 18 /min Lynne Chan MD Work Phone: [facility] 01-13-2023 08:28-0400 SaO2% (BldA) [Mass fraction] 98 % Lynne Chan MD Work Phone: [facility] 01-13-2023 08:28-0400 Systolic blood pressure 132 mm[Hg] Lynne Chan MD Work Phone: [facility] 01-03-2023 09:18-0400 Body height 167.6 cm Jeni Daly MD Work Phone: [facility] 01-03-2023 09:18-0400 Body temperature 97.39 [degF] Jeni Daly MD Work Phone: [facility] 01-03-2023 09:18-0400 Body weight 123.83 kg Jeni Daly MD Work Phone: [facility] 01-03-2023 09:18-0400 Diastolic blood pressure 85 mm[Hg] Jeni Daly MD Work Phone: [facility] 01-03-2023 09:18-0400 Heart rate 86 /min Jeni Daly MD Work Phone: [facility] 01-03-2023 09:18-0400 Respiratory rate 16 /min Jeni Daly MD Work Phone: [facility] 01-03-2023 09:18-0400 SaO2% (BldA) [Mass fraction] 95 % Jeni Daly MD Work Phone: [facility] 01-03-2023 09:18-0400 Systolic blood pressure 139 mm[Hg] Jeni Daly MD Work Phone: [facility] 02-17-2022 08:50-0400 Body height 167.6 cm Jeni Daly MD Work Phone: [facility] 02-17-2022 08:50-0400 Body temperature 97.81 [degF] Jeni Daly MD Work Phone: [facility] 02-17-2022 08:50-0400 Body weight 107.96 kg Jeni Daly MD Work Phone: [facility] 02-17-2022 08:50-0400 Diastolic blood pressure 79 mm[Hg] Jeni Daly MD Work Phone: [facility] 02-17-2022 08:50-0400 Heart rate 74 /min Jeni Daly MD Work Phone: [facility] 02-17-2022 08:50-0400 Respiratory rate 16 /min Jeni Daly MD Work Phone: [facility] 02-17-2022 08:50-0400 SaO2% (BldA) [Mass fraction] 94 % Jeni Daly MD Work Phone: [facility] 02-17-2022 08:50-0400 Systolic blood pressure 119 mm[Hg] Jeni Daly MD Work Phone: [facility] 01-12-2022 08:03-0400 Body weight 106.59 kg Lynne Chan MD Work Phone: [facility] 01-12-2022 08:03-0400 Diastolic blood pressure 80 mm[Hg] Lynne Chan MD Work Phone: [facility] 01-12-2022 08:03-0400 Heart rate 84 /min Lynne Chan MD Work Phone: [facility] 01-12-2022 08:03-0400 Respiratory rate 16 /min Lynne Chan MD Work Phone: [facility] 01-12-2022 08:03-0400 Systolic blood pressure 116 mm[Hg] Lynne Chan MD Work Phone: [facility] Encounters Encounter Date Encounter Type Care Provider Facility Start: 07-01-2024 End: 07-01-2024 Refill Jnei Daly MD Work Phone: Pulmonary Medicine Comment on above: Refill Request Start: 06-27-2024 End: 06-27-2024 Telephone encounter Brooke AGEE Admitting Comment on above: Appointment; Broncho scopy Scheduling Start: 06-25-2024 End: 06-25-2024 Telephone encounter Lung Post Tx Main Work Phone: Pulmonary Medicine Comment on above: Results Start: 06-25-2024 End: 06-25-2024 ambulatory JENI DALY Facility:[facility] Start: 06-25-2024 End: 06-25-2024 Patient encounter procedure Pulm Fct Lab Main 2 Work Phone: Pulmonary Medicine Comment on above: Spirometry Lung replaced by tra nsplant (HCC) (Primary Dx); Care after organ transplant; Lung transplant status, bilateral (HCC); Bronchiolitis obliterans syndrome (HCC); Class 3 severe obesity without serious comorbidity with body mass index (BMI) of 40.0 to 44.9 in adult, unspecified obesity type (HCC); Encounter for monitoring tacrolimus therapy; Essential hypertension; Bilateral foot-drop; Abnormal PFTs; Class 3 severe obesity without serious comorbidity with body mass index (BMI) of 45.0 to 49.9 in adult, unspecified obesity type (HCC); Lung transplant failure (HCC) Start: 06-25-2024 End: 06-25-2024 ambulatory LYNEN CHAN Facility:[facility] Start: 06-25-2024 End: 06-25-2024 Subsequent hospital visit by physician Xr Chest Main A21 Radiology Comment on above: Lung replaced by tra mitzilant ([facility]) [Z94.2] Start: 06-24-2024 End: 06-24-2024 ambulatory LYNNE CHAN Facility:[facility] Start: 06-12-2024 End: 06-12-2024 Refill Jeni Daly MD Work Phone: Pulmonary Medicine Comment on above: Refill Request Start: 05-30-2024 End: 05-30-2024 Telephone encounter Lung Post Tx Main Work Phone: Pulmonary Medicine Comment on above: Return Call Request; Patient Update Start: 05-02-2024 End: 05-02-2024 Refill Chago Garcia MD Work Phone: Pulmonary Medicine Comment on above: Refill Request Start: 04-03-2024 End: 04-03-2024 ambulatory LYNNE CHAN Facility:[facility] Start: 04-03-2024 End: 04-03-2024 Office outpatient visit 25 minutes Lynne Chan MD Work Phone: Internal Medicine [place] Comment on above: Essential tremor (Pr imary Dx); Class 3 severe obesity due to excess calories with body mass index (BMI) of 40.0 to 44.9 in adult, unspecified whether serious comorbidity present ([facility]) Start: 03-21-2024 End: 03-21-2024 Patient encounter procedure Maria C Pardo DPM Work Phone: [facility] Comment on above: Idiopathic periphera l neuropathy; Left foot drop; Right foot drop; Abrasion of left great toe, subsequent encounter; Abrasion of right great toe, subsequent encounter Start: 03-20-2024 End: 03-20-2024 ambulatory LYNNE CHAN Facility:[facility] Start: 03-19-2024 ambulatory Lynne wheat MD Work Phone: Internal Medicine [place] Comment on above: Propranolol doaage Start: 03-06-2024 End: 03-06-2024 ambulatory Pulm Fct Lab Main 8 Pulmonary Medicine Comment on above: Spirometry lab results Start: 03-06-2024 E-mail encounter bal Pastor Brusko RN Pulmonary Medicine Start: 03-06-2024 End: 03-06-2024 Patient encounter procedure Pulm Fct Lab Main 8 Pulmonary Medicine Comment on above: Care after organ tra nsplant (Primary Dx); 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); Lung transplant status, bilateral (HCC); Bronchiolitis obliterans syndrome (HCC); Class 3 severe obesity without serious comorbidity with body mass index (BMI) of 40.0 to 44.9 in adult, unspecified obesity type (HCC); Encounter for monitoring tacrolimus therapy; Essential hypertension Start: 03-06-2024 End: 03-06-2024 Subsequent hospital visit by physician Xr Chest Main A21 Radiology Comment on above: Lung replaced by tra nsplant (HCC) [Z94.2] Start: 03-05-2024 End: 03-05-2024 Patient encounter procedure Maria C Pardo DPM Work Phone: [facility] Comment on above: Abrasion of left gre at toe, initial encounter (Primary Dx); Idiopathic peripheral neuropathy; Left foot drop; Right foot drop; Abrasion of right great toe, initial encounter Start: 03-05-2024 Telephone encounter Hakan alvarez SIGNAL TOWER DIRECTOR.LIFE SCIENCE RESEARCH ASSISTANT Work Phone: Internal Medicine [place] Comment on above: Results Start: 03-05-2024 End: 03-05-2024 ambulatory LYNNE D TALAMPAS Facility:[facility] Start: 02-29-2024 End: 02-29-2024 Emergency department patient visit LYNNE D ROCIO Facility:[id number] Start: 02-23-2024 Telephone encounter Hakna Yuan er SIGNAL TOWER DIRECTOR.LIFE SCIENCE RESEARCH ASSISTANT Work Phone: Internal Medicine [place] Comment on above: Results Start: 02-23-2024 End: 02-23-2024 ambulatory LYNNE D TALAMPAS Facility:[facility] Start: 02-19-2024 ambulatory Hakan Escalante SIGNAL TOWER DIRECTOR.LIFE SCIENCE RESEARCH ASSISTANT Work Phone: Internal Medicine [place] Comment on above: Inr Start: 02-16-2024 Refill Jeni curiel MD Work Phone: Pulmonary Medicine Comment on above: Refill Request Start: 02-13-2024 Telephone encounter Lung Post Tx Main Work Phone: Pulmonary Medicine Comment on above: Results Start: 02-12-2024 End: 02-12-2024 ambulatory LYNNE CHAN Facility:[facility] Start: 02-01-2024 Refill Jeni curiel MD Work Phone: Pulmonary Medicine Comment on above: Refill Request Start: 01-23-2024 ambulatory Lynne wheat MD Work Phone: Internal [facility] [place] Comment on above: Wellbutrin Start: 01-16-2024 End: 01-16-2024 Office outpatient visit 25 minutes Lynne Chan MD Work Phone: Internal Medicine [place] Comment on above: Recurrent major depr essive disorder, in full remission (HCC) (Primary Dx); ABHIJIT (obstructive sleep apnea) AHI 9.6; Foot drop, bilateral; Impaired mobility; Obesity, Class III, BMI >= 40; Lung replaced by transplant ([facility]) Start: 01-16-2024 End: 01-16-2024 ambulatory LYNNE CHAN Facility:[facility] Start: 12-29-2023 Refill Jeni curiel MD Work Phone: Pulmonary Medicine Comment on above: Refill Request Start: 12-26-2023 End: 12-26-2023 ambulatory LYNNE CHAN Facility:[facility] Start: 12-26-2023 End: 12-26-2023 Patient encounter procedure Chandra Gaitan MD Work Phone: [facility]opaedic [facility] Comment on above: Chronic pain of left knee (Primary Dx) Start: 12-13-2023 Telephone encounter Lung Post Tx Main Work Phone: Pulmonary Medicine Comment on above: Results Start: 12-12-2023 Telephone encounter Hakan alvarez APRN.CNP Work Phone: Internal Medicine [place] Comment on above: Results Start: 12-12-2023 End: 12-12-2023 ambulatory LYNNE CHAN Facility:[facility] Start: 12-12-2023 End: 12-12-2023 Patient encounter procedure Bebe Sandra APRN.LIFE SCIENCE RESEARCH ASSISTANT Work Phone: Dermatology Comment on above: Multiple benign nevi (Primary Dx); Lentigines; Paz angioma; Skin cancer screening Start: 12-12-2023 End: 12-12-2023 ambulatory [facility] Facility:[facility] Start: 11-30-2023 Telephone encounter Jade Scott RN Pulmonary Medicine Comment on above: Results Start: 11-30-2023 End: 11-30-2023 Patient encounter procedure Pulm Fct Lab Main 4 [facility] Comment on above: Lung replaced by tra nsplant (HCC) (Primary Dx); Care after organ transplant; Lung transplant status, bilateral (HCC); Bronchiolitis obliterans syndrome (HCC); Class 3 severe obesity without serious comorbidity with body mass index (BMI) of 40.0 to 44.9 in adult, unspecified obesity type (HCC); Encounter for monitoring tacrolimus therapy; Essential hypertension; Traumatic hematoma of left knee, subsequent encounter Start: 11-30-2023 End: 11-30-2023 Subsequent hospital visit by physician Xr Chest Main A21 Radiology Comment on above: Lung replaced by tra nsplant (HCC) [Z94.2] Start: 11-30-2023 End: 11-30-2023 ambulatory Pulm Fct Lab Main 4 Pulmonary Medicine Comment on above: Spirometry Start: 11-23-2023 End: 11-23-2023 ambulatory [facility] Facility:[facility] Start: 11-23-2023 Encounter for gynecological examination (general) (routine) without abnormal findings EDISON BIRD [facility] Start: 11-23-2023 End: 11-23-2023 Patient encounter procedure Edison Bird MD Work Phone: OB/Gynecology Comment on above: Encounter for gyneco logical examination (general) (routine) without abnormal findings (Primary Dx); 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 for malignant neoplasm of cervix; Special screening examination for human papillomavirus (HPV) Start: 11-23-2023 End: 11-23-2023 Patient encounter status Edison Bird MD Work Phone: [facility] Start: 11-21-2023 Telephone encounter Lung Post Tx Main Work Phone: Pulmonary Medicine Comment on above: Results Start: 11-21-2023 End: 11-21-2023 [facility] Start: 11-21-2023 End: 11-21-2023 Subsequent hospital visit by physician Anusha [facility] [place] (I-Stat/3t) MRI [facility] Comment on above: Left knee pain, unsp ecified chronicity [M25.562] Encounter for observ ation for other suspected diseases and conditions ruled out [Z03.89] Start: 11-20-2023 Telephone encounter Hakan alvarez APRN.LIFE SCIENCE RESEARCH ASSISTANT Work Phone: Internal Medicine [place] Comment on above: Results; Anticoagula tion Start: 11-20-2023 End: 11-20-2023 [facility] Start: 11-09-2023 End: 11-09-2023 ambulatory [facility] Facility:[facility] Start: 11-09-2023 End: 11-09-2023 Patient encounter procedure Liseth Ward DO Work Phone: Neurology Comment on above: Critical illness kamryn ropathy (HCC) (Primary Dx); Idiopathic peripheral neuropathy; Left foot drop; Right foot drop; Essential tremor Start: 11-07-2023 End: 11-07-2023 [facility] Start: 11-07-2023 End: 11-07-2023 Patient encounter procedure Chandra Gaitan MD Work Phone: Orthopaedic Surgery [facility] Comment on above: Encounter for observ ation for other suspected diseases and conditions ruled out (Primary Dx); Acute pain of left knee; Knee effusion, left; Left knee pain, unspecified chronicity Start: 11-06-2023 End: 11-06-2023 ambulatory [facility] Facility:[facility] Start: 10-28-2023 Refill Hakan Escalante APRN.LIFE SCIENCE RESEARCH ASSISTANT Work Phone: Family Medicine [place] Comment on above: Refill Request Start: 10-27-2023 End: 10-27-2023 Subsequent hospital visit by physician Hyacinth [facility] [place] Work Phone: Radiology Comment on above: Knee injuries, left, initial encounter [S89.92XA] Start: 10-27-2023 End: 10-27-2023 ambulatory LYNNE D TALAMPAS Facility:[facility] Start: 10-27-2023 End: 10-27-2023 Patient encounter procedure Chari Loomis SIGNAL TOWER DIRECTOR.LIFE SCIENCE RESEARCH ASSISTANT Work Phone: [facility] Comment on above: Knee injuries, left, initial encounter (Primary Dx) Start: 10-22-2023 Refill Hakan Escalante SIGNAL TOWER DIRECTOR.LIFE SCIENCE RESEARCH ASSISTANT Work Phone: Internal Medicine [place] Comment on above: Refill Request Start: 10-20-2023 Refill Jeni curiel MD Work Phone: Pulmonary Medicine Comment on above: Refill Request Start: 10-17-2023 End: 10-17-2023 Patient encounter procedure Maria C Pardo DPM Work Phone: [facility] Comment on above: Idiopathic periphera l neuropathy; Left foot drop; Right foot drop Start: 10-12-2023 Refill Jeni curiel MD Work Phone: Pulmonary Medicine Comment on above: Refill Request Start: 09-26-2023 End: 09-26-2023 ambulatory JENI A AKINDIPE Facility:[facility] Start: 09-26-2023 End: 09-26-2023 ambulatory LYNNE D TALAMPAS Facility:[facility] Start: 09-26-2023 End: 09-26-2023 ambulatory LYNNE D TALAMPAS Facility:[facility] Start: 09-22-2023 End: 09-22-2023 ambulatory LYNNE D TALAMPAS Facility:[facility] Start: 09-14-2023 End: 09-14-2023 ambulatory LYNNE D TALAMPAS Facility:[facility] Start: 08-29-2023 End: 08-29-2023 ambulatory JENI A AKINDIPE Facility:[facility] Start: 08-29-2023 End: 08-29-2023 ambulatory LYNNE D TALAMPAS Facility:[facility] Start: 08-08-2023 Refill Hakan Ava SIGNAL TOWER DIRECTOR.LIFE SCIENCE RESEARCH ASSISTANT Work Phone: [facility] [place] Comment on above: Refill Request Start: 08-08-2023 Refill Hakan Ava SIGNAL TOWER DIRECTOR.LIFE SCIENCE RESEARCH ASSISTANT Work Phone: [facility] [place] Comment on above: Refill Request Start: 08-02-2023 Refill Jeni curiel MD Work Phone: Pulmonary Medicine Comment on above: Refill Request Start: 08-01-2023 Telephone encounter Vinod Quinones [facility] Pulmonary Medicine Comment on above: Results Anticoagulation Start: 07-31-2023 End: 07-31-2023 ambulatory LYNNE CHAN Facility:[facility] Start: 07-23-2023 Refill Ioana Sakshi er DO Work Phone: Pulmonary Medicine Comment on above: Refill Request Start: 07-14-2023 Refill Hakan Ava SIGNAL TOWER DIRECTOR.LIFE SCIENCE RESEARCH ASSISTANT Work Phone: [facility] [place] Comment on above: Refill Request Start: 06-30-2023 Refill Ioana Sakshi er DO Work Phone: Pulmonary Medicine Comment on above: Refill Request Start: 06-08-2023 Refill Hakan Ava SIGNAL TOWER DIRECTOR.LIFE SCIENCE RESEARCH ASSISTANT Work Phone: [facility] [place] Comment on above: Refill Request Start: 05-31-2023 End: 05-31-2023 Patient encounter procedure Chari Loomis APRN.LIFE SCIENCE RESEARCH ASSISTANT Work Phone: [facility] Comment on above: Bleeding nose (Prima ry Dx) Start: 05-16-2023 End: 05-16-2023 ambulatory Scotty Marshall MD Work Phone: Endocrinology Comment on above: Morbid obesity (HCC) [E66.01] (Primary Dx); 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) [Z94.2]; Sleep apnea, unspecified type [G47.30] Start: 05-16-2023 End: 05-16-2023 Telemedicine consultation with patient Scotty Marshall MD Work Phone: [facility] Start: 05-10-2023 Refill Jeni curiel MD Work Phone: Pulmonary Medicine Comment on above: Refill Request Start: 05-09-2023 Telephone encounter Hakan alvarez APRN.CNP Work Phone: Internal Medicine [place] Comment on above: Results Start: 05-03-2023 ambulatory Darby Wright RN Pul monary Medicine Comment on above: lab results Start: 05-03-2023 E-mail encounter bal m caregiver Darby Wright RN [facility] Start: 05-02-2023 End: 05-02-2023 ambulatory Pulm Fct Lab Main 1 Work Phone: Pulmonary Medicine Comment on above: Spirometry Start: 05-02-2023 End: 05-02-2023 Patient encounter procedure Pulm Fct Lab Main 1 Work Phone: [facility] Comment on above: Lung replaced by tra nsplant (HCC) (Primary Dx); Care after organ transplant; Lung transplant status, bilateral (HCC); Bronchiolitis obliterans syndrome (HCC); Class 3 severe obesity without serious comorbidity with body mass index (BMI) of 40.0 to 44.9 in adult, unspecified obesity type (HCC); Encounter for monitoring tacrolimus therapy; Essential hypertension; Obesity, Class III, BMI >= 40; 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 for osteoporosis; buttermaker 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 Start: 05-02-2023 End: 05-02-2023 Subsequent hospital visit by physician Xr Chest Main A21 Radiology Comment on above: Lung replaced by tra nsplant (HCC) [Z94.2] Start: 04-21-2023 Telephone encounter Scotty constantino MD Work Phone: Endocrinology Comment on above: Insurance Authorizat ion Start: 04-02-2023 Refill Jeni curiel MD Work Phone: Pulmonary Medicine Comment on above: Refill Request Start: 03-15-2023 Telephone encounter Scotty constantino MD Work Phone: Endocrinology Comment on above: Patient Update Start: 03-08-2023 Refill Ioana Sakshi er DO Work Phone: Pulmonary Medicine Comment on above: Refill Request Start: 03-08-2023 Refill Scotty birmingham MD Work Phone: Endocrinology Comment on above: Refill Request Start: 03-07-2023 End: 03-07-2023 ambulatory Hakan Escalante SIGNAL TOWER DIRECTOR.LIFE SCIENCE RESEARCH ASSISTANT Work Phone: Internal Medicine [place] Comment on above: Seasonal allergic rh initis, unspecified trigger (Primary Dx); Pain and swelling of right lower leg; Fall, subsequent encounter; buttermaker (current) use of anticoagulants Start: 03-07-2023 End: 03-07-2023 Telemedicine consultation with patient Hakan Escalante SIGNAL TOWER DIRECTOR.LIFE SCIENCE RESEARCH ASSISTANT Work Phone: [facility] Start: 03-01-2023 Telephone encounter Lung Post Tx Main Work Phone: Pulmonary Medicine Comment on above: Results Start: 02-28-2023 Telephone encounter Hakan Yuan er SIGNAL TOWER DIRECTOR.LIFE SCIENCE RESEARCH ASSISTANT Work Phone: Internal Medicine [place] Comment on above: Results Start: 02-16-2023 ambulatory Lynne wheat MD Work Phone: Internal Medicine [place] Comment on above: Bupropion XL Start: 02-10-2023 Telephone encounter Hakan Yuan er SIGNAL TOWER DIRECTOR.LIFE SCIENCE RESEARCH ASSISTANT Work Phone: Internal Medicine [place] Comment on above: Results Start: 02-08-2023 Telephone encounter Lynne jade MD Work Phone: Family Medicine [place] Comment on above: Orders Start: 01-24-2023 End: 01-24-2023 Subsequent hospital visit by physician Xr [facility] [place] Work Phone: Radiology Comment on above: Acute pain of right knee [M25.561] Start: 01-13-2023 End: 01-13-2023 Office outpatient visit 25 minutes Lynne Chan MD Work Phone: Internal Medicine [place] Comment on above: Recurrent major depr essive disorder, in full remission (HCC) (Primary Dx); Anxiety; ABHIJIT (obstructive sleep apnea) AHI 9.6; 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); Class 3 severe obesity due to excess calories with body mass index (BMI) of 40.0 to 44.9 in adult, unspecified whether serious comorbidity present (HCC); CTEPH (chronic thromboembolic pulmonary hypertension) (HCC); Immunosuppression (HCC) Start: 01-05-2023 ambulatory Jade Scott RN Pulmona ry Medicine Comment on above: Lab Results Start: 01-05-2023 E-mail encounter fro m caregiver Jade Scott RN [facility] Start: 01-03-2023 End: 01-03-2023 Patient encounter procedure Jeni Daly MD Work Phone: Pulmonary Medicine Comment on above: Care after organ tra nsplant (Primary Dx); 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); Lung transplant status, bilateral (HCC); Bronchiolitis obliterans syndrome (HCC); Class 3 severe obesity without serious comorbidity with body mass index (BMI) of 40.0 to 44.9 in adult, unspecified obesity type (HCC); Encounter for monitoring tacrolimus therapy; Essential hypertension Start: 12-22-2022 End: 12-22-2022 ambulatory Pari Pop PA-C Work Phone: [facility] Comment on above: Encounter for screen ing for osteoporosis (Primary Dx); Lung transplant status, bilateral (HCC); buttermaker 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; Hypervitaminosis D Start: 12-22-2022 End: 12-22-2022 Telemedicine consultation with patient Pari Pop PA-C Work Phone: [facility] Start: 12-16-2022 End: 12-16-2022 ambulatory Scotty Marshall MD Work Phone: Endocrinology Comment on above: Class 3 severe obesi ty due to excess calories with serious comorbidity and body mass index (BMI) of 40.0 to 44.9 in adult (HCC) (Primary Dx); 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) Start: 12-16-2022 End: 12-16-2022 Telemedicine consultation with patient Scotty Marshall MD Work Phone: [facility] Start: 10-18-2022 Refill Jeni curiel MD Work Phone: Pulmonary Medicine Comment on above: Refill Request Start: 10-05-2022 Refill Jeni curiel MD Work Phone: Pulmonary Medicine Comment on above: Refill Request Start: 10-05-2022 Refill Jeni curiel MD Work Phone: Pulmonary Medicine Comment on above: Refill Request Start: 09-29-2022 Telephone encounter Lung Post Tx Main Work Phone: Pulmonary Medicine Comment on above: Returning Patient's Call Start: 09-28-2022 Refill Chago Perea Work Phone: Pulmonary Medicine Comment on above: Refill Request Start: 09-15-2022 Telephone encounter Scotty constantino MD Work Phone: Endocrinology Comment on above: Medication Problem ( buPROPion XL (WELLBUTRIN XL) 150 mg 24 hr tablet) Start: 09-13-2022 Refill Scotty birmingham MD Work Phone: Endocrinology Comment on above: Refill Request Start: 09-01-2022 Telephone encounter Jade Scott RN Pulmonary Medicine Comment on above: Results Start: 08-18-2022 Refill Lynne wheat MD Work Phone: Internal Medicine [place] Comment on above: Opened In Error Start: 08-17-2022 End: 08-17-2022 ambulatory Pulm Fct Lab Main 10 Other Phone: Pulmonary Medicine Comment on above: Spirometry Start: 08-17-2022 End: 08-17-2022 Patient encounter procedure Pulm Fct Lab Main 10 Other Phone: [facility] Start: 08-17-2022 End: 08-17-2022 Subsequent hospital visit by physician Xr Chest Main Qb1 Radiology Comment on above: Lung replaced by tra nsplant ([facility]) [Z94.2] Start: 08-15-2022 Telephone encounter Lynne jade MD Work Phone: Internal Medicine [place] Comment on above: Anticoagulation Start: 08-10-2022 Refill Jeni curiel MD Work Phone: Pulmonary Medicine Comment on above: Refill Request Start: 08-02-2022 Refill Jeni curiel MD Work Phone: Pulmonary Medicine Comment on above: Refill Request Start: 07-26-2022 Telephone encounter Darby Wright RN Pulmonary Medicine Comment on above: Results Start: 07-13-2022 Telephone encounter Neeta Thurman Pulmonary Medicine Comment on above: Results Start: 07-11-2022 Telephone encounter Lynne jade MD Work Phone: Internal Medicine [place] Comment on above: Anticoagulation Start: 07-05-2022 Refill Jeni curiel MD Work Phone: Pulmonary Medicine Comment on above: Refill Request Start: 06-28-2022 End: 06-28-2022 ambulatory Pulm Fct Lab Main 2 Work Phone: Pulmonary Medicine Comment on above: Spirometry Rx Refills Start: 06-28-2022 End: 06-28-2022 Patient encounter procedure Pulm Fct Lab Main 2 Work Phone: [facility] Start: 06-27-2022 Telephone encounter Jade Scott RN Pulmonary Medicine Comment on above: Results Start: 06-08-2022 Telephone encounter Darby Wright RN Pulmonary Medicine Comment on above: Results Start: 05-23-2022 Telephone encounter Neeta Thurman Pulmonary Medicine Comment on above: Results Start: 05-17-2022 Refill Jeni curiel MD Work Phone: Pulmonary Medicine Comment on above: Refill Request Start: 05-06-2022 End: 05-06-2022 Anticoagulant drug monitoring [facility] Work Phone: [facility] [place] Comment on above: 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); VTE (venous thromboembolism); custodial (current) use of anticoagulants Start: 05-02-2022 Refill Jeni curiel MD Work Phone: Pulmonary Medicine Comment on above: Refill Request Start: 04-18-2022 Telephone encounter Lung Post Tx Main Work Phone: Pulmonary Medicine Comment on above: Follow Up (Covid exp osure.) Start: 04-01-2022 End: 04-01-2022 [facility] [place] Comment on above: 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); VTE (venous thromboembolism); custodial (current) use of anticoagulants Start: 03-15-2022 Refill Jeni curiel MD Work Phone: Pulmonary Medicine Comment on above: Refill Request Start: 03-15-2022 Refill Jeni curiel MD Work Phone: Pulmonary Medicine Comment on above: Refill Request Start: 02-24-2022 Refill Jeni curiel MD Work Phone: Pulmonary Medicine Comment on above: Refill Request Start: 02-17-2022 Telephone encounter Neeta Thurman Pulmonary Medicine Comment on above: Results Start: 02-17-2022 End: 02-17-2022 Patient encounter procedure Jeni Daly MD Work Phone: Pulmonary Medicine Comment on above: Lung replaced by tra nsplant (HCC); Care after organ transplant; Lung transplant status, bilateral (HCC); Bronchiolitis obliterans syndrome (HCC); CTEPH (chronic thromboembolic pulmonary hypertension) ([facility]); Encounter for monitoring tacrolimus therapy; custodial 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; Class 2 obesity without serious comorbidity with body mass index (BMI) of 38.0 to 38.9 in adult, unspecified obesity type Start: 02-17-2022 End: 02-17-2022 ambulatory [facility] Comment on above: Radiology BMD Start: 02-17-2022 End: 02-17-2022 Patient encounter procedure Bone [facility] Start: 02-17-2022 End: 02-17-2022 Subsequent hospital visit by physician Xr Chest Main A21 Radiology Comment on above: Care after organ tra nsplant [Z48.298] Start: 02-15-2022 Refill Jeni curiel MD Work Phone: Pulmonary Medicine Comment on above: Refill Request Start: 02-03-2022 End: 02-03-2022 Anticoagulant drug monitoring [facility] Work Phone: [facility] [place] Comment on above: 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); VTE (venous thromboembolism); buttermaker (current) use of anticoagulants Start: 01-27-2022 End: 01-27-2022 Nursing evaluation of patient and report Mi Nurse Work Phone: Family Medicine [place] Comment on above: Need for vaccination (Primary Dx) Start: 01-20-2022 Telephone encounter Jaylin Quinn RN Pulmonary Medicine Comment on above: Results Start: 01-18-2022 Refill Jeni curiel MD Work Phone: Pulmonary Medicine Comment on above: Refill Request Start: 01-12-2022 End: 01-12-2022 Office outpatient visit 25 minutes Lynne Chan MD Work Phone: Internal Medicine [place] Comment on above: Tremor (Primary Dx); Obesity, Class II, BMI 35-39.9; History of COVID-19 Start: 01-04-2022 Refill Jeni curiel MD Work Phone: Pulmonary Medicine Comment on above: Refill Request Start: 12-31-2021 End: 12-31-2021 Anticoagulant drug monitoring [facility] Work Phone: [facility] [place] Comment on above: 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); VTE (venous thromboembolism); buttermaker (current) use of anticoagulants Start: 12-28-2021 Refill Jalen Gonzalez MD Work Phone: Pulmonary Medicine Comment on above: Refill Request Start: 12-28-2021 Refill Jalen Gonzalez MD Work Phone: Pulmonary Medicine Comment on above: Refill Request Start: 12-09-2021 Refill Jeni curiel MD Work Phone: Pulmonary Medicine Comment on above: Refill Request Start: 11-25-2021 Get Medical Advice Lynne anderson MD Work Phone: Internal Medicine [place] Comment on above: Prior Authorization for Early Refill Due to Vacation Start: 07-02-2018 End: 07-11-2018 Patient encounter [facility] Procedures Date Procedure Procedure Detail Performing Clinician Start: 06-25-2024 Spmtry w/vc expirato ry lorraine w/wo mxml vol vntj Jeni Daly MD Work Phone: Start: 06-25-2024 Radiologic exam ches t 2 views Jeni Daly MD Work Phone: Start: 03-06-2024 [employer] COVI D-19 VACCINE () AGE 12+ YR Jeni Daly MD Work Phone: Start: 03-06-2024 Spmtry w/vc expirato ry lorraine w/wo mxml vol vntj Jeni Daly MD Work Phone: Start: 03-06-2024 Radiologic exam ches t 2 views Jeni Daly MD Work Phone: Start: 11-30-2023 ALLOGEN POST-TX DSA RPT [facility] Provider Start: 11-30-2023 Spmtry w/vc expirato ry lorraine w/wo mxml vol vntj Jeni Daly MD Work Phone: Start: 11-30-2023 Radiologic exam ches t 2 views Jeni Daly MD Work Phone: Start: 11-21-2023 End: 11-21-2023 Mri any jt lower extrem w/o contrast matrl Chandra Gaitan MD Work Phone: Start: 11-20-2023 PROTHROMBIN TIME/PT [facility] Provider Start: 10-27-2023 Radiologic exam knee complete 4/more views Chari Loomis SIGNAL TOWER DIRECTOR.LIFE SCIENCE RESEARCH ASSISTANT Work Phone: Start: 05-02-2023 Spmtry w/vc expirato ry lorraine w/wo mxml vol vntj Jeni Daly MD Work Phone: Start: 05-02-2023 Radiologic exam ches t 2 views Jeni Daly MD Work Phone: Start: 01-24-2023 Radiologic exam knee complete 4/more views Sirena Dobbs SIGNAL TOWER DIRECTOR.LIFE SCIENCE RESEARCH ASSISTANT Work Phone: Start: 01-03-2023 [employer] COVI D-19 BIVALENT VACCINE, AGE 12+ YR Jeni Daly MD Work Phone: Start: 08-17-2022 Spmtry w/vc expirato ry lorraine w/wo mxml vol vntj Ioana Gracia DO Work Phone: Start: 08-17-2022 Radiologic exam esop hagus single contrast study Ioana Gracia DO Work Phone: Start: 08-15-2022 PROTHROMBIN TIME/PT [facility] Provider Start: 07-11-2022 PROTHROMBIN TIME/PT [facility] Provider Start: 06-28-2022 Spmtry w/vc expirato ry lorraine w/wo mxml vol vntj Jeni Daly MD Work Phone: Start: 02-17-2022 Dxa bone density letitia dy axial skeleton Jeni Daly MD Work Phone: Start: 02-17-2022 Radiologic exam ches t 2 views Jeni Daly MD Work Phone: Start: 01-27-2022 [employer] COVI D-19 VACCINE, AGE 12+ YR (EDWARDS TOP) Twin Velez MD Work Phone: Start: 10-19-2021 Adult depression scr eening assessment Lynne Chan MD Work Phone: Plan of Treatment Date Care Activity Detail Author Start: 11-22-2028 Screening for malign ant neoplasm of cervix [facility] Start: 04-10-2028 Urine microalbumin profile [facility] Start: 11-17-2026 PNEUMOCOCCAL (3 - PP SV23 if available, else PCV20) PNEUMOCOCCAL (3 - PPSV23 if available, else PCV20) [facility] Start: 11-17-2026 PNEUMOCOCCAL (3 - PP SV23 or PCV20) PNEUMOCOCCAL (3 - PPSV23 or PCV20) [facility] Start: 11-17-2026 Pneumococcal vaccination [facility] Start: 08-12-2026 PAP TESTING PAP TESTING [facility] Start: 08-12-2026 Screening for malign ant neoplasm of cervix Pap Testing [facility] Start: 04-03-2025 Annual PCP Team Personal Lines Advisor freida Disease Visit Annual PCP Team Chronic Disease Visit [facility] Start: 03-06-2025 BP Controlled (<130/80) BP Controlle d (<130/80) [facility] Start: 01-17-2025 End: 01-17-2025 Patient encounter procedure 01/17/2025 1:00 PM EDT Office Visit [facility] [place] [address] [place] [address] Lynne Chan MD [address] [place], [place] [id number] Yearly follow up [facility] [place] Comment on above: Yearly follow up Start: 01-15-2025 Annual PCP Team Personal Lines Advisor freida Disease Visit Annual PCP Team Chronic Disease Visit [facility] Start: 01-15-2025 BP Controlled (<130/80) BP Controlle d (<130/80) [facility] [facility] Start: 11-22-2024 BP Controlled (<130/80) BP Controlle d (<130/80) [facility] Start: 11-22-2024 Screening for malign ant neoplasm of cervix Cervical Cancer Screening [facility] Start: 11-06-2024 Annual PCP Team Personal Lines Advisor freida Disease Visit Annual PCP Team Chronic Disease Visit [facility] Start: 09-26-2024 BP Controlled (<130/80) BP Controlle d (<130/80) [facility] Start: 08-12-2024 PAP TESTING PAP TESTING [facility] Start: 08-09-2024 Covid-19 Vaccine ( season) Covid-19 Vaccine () [facility] Start: 08-06-2024 End: 11-05-2024 CBC W Auto Differential panel - Blood COMPLETE BLOOD COUNT AND DIFFERENTIAL Lab Routine Care after organ transplant Lung transplant status, bilateral (HCC) Bronchiolitis obliterans syndrome (HCC) Encounter for monitoring tacrolimus therapy Essential hypertension Bilateral foot-drop Abnormal PFTs Class 3 severe obesity without serious comorbidity with body mass index (BMI) of 45.0 to 49.9 in adult, unspecified obesity type (HCC) Expected: 08/06/2024 (Approximate), Expires: 11/05/2024 [facility] Comment on above: Expected: 08/06/2024 (Approximate), Expires: 11/05/2024 Start: 08-06-2024 End: 11-05-2024 Comprehensive metabolic 2000 panel - Serum or Plasma COMPREHENSIVE METABOLIC PANEL Lab Routine Care after organ transplant Lung transplant status, bilateral (HCC) Bronchiolitis obliterans syndrome (HCC) Encounter for monitoring tacrolimus therapy Essential hypertension Bilateral foot-drop Abnormal PFTs Class 3 severe obesity without serious comorbidity with body mass index (BMI) of 45.0 to 49.9 in adult, unspecified obesity type (HCC) Expected: 08/06/2024 (Approximate), Expires: 11/05/2024 [facility] Comment on above: Expected: 08/06/2024 (Approximate), Expires: 11/05/2024 Start: 08-06-2024 End: 07-25-2025 CT Chest WO contrast CT CHEST WO IVCON Radiology Routine Care after organ transplant Lung transplant status, bilateral (HCC) Bronchiolitis obliterans syndrome (HCC) Encounter for monitoring tacrolimus therapy Essential hypertension Bilateral foot-drop Abnormal PFTs Class 3 severe obesity without serious comorbidity with body mass index (BMI) of 45.0 to 49.9 in adult, unspecified obesity type (HCC) Expected: 08/06/2024 (Approximate), Expires: 07/25/2025 [facility] Comment on above: Expected: 08/06/2024 (Approximate), Expires: 07/25/2025 Start: 08-06-2024 End: 11-05-2024 CYTOMEGALOVIRUS (CMV) DNA, QUANTITATIVE PCR, PLASMA CYTOMEGALOVIRUS (CMV) DNA, QUANTITATIVE PCR, PLASMA Lab Routine Care after organ transplant Lung transplant status, bilateral (HCC) Bronchiolitis obliterans syndrome (HCC) Encounter for monitoring tacrolimus therapy Essential hypertension Bilateral foot-drop Abnormal PFTs Class 3 severe obesity without serious comorbidity with body mass index (BMI) of 45.0 to 49.9 in adult, unspecified obesity type (HCC) Expected: 08/06/2024 (Approximate), Expires: 11/05/2024 [facility] Comment on above: Expected: 08/06/2024 (Approximate), Expires: 11/05/2024 Start: 08-06-2024 End: 11-05-2024 Ariel Aguirre virus DNA [#/volume] (viral load) in Blood by ELENA with probe detection ARIEL-AGUIRRE VIRUS (EBV) DNA, QUANTITATIVE PCR, PLASMA Lab Routine Care after organ transplant Lung transplant status, bilateral (HCC) Bronchiolitis obliterans syndrome (HCC) Encounter for monitoring tacrolimus therapy Essential hypertension Bilateral foot-drop Abnormal PFTs Class 3 severe obesity without serious comorbidity with body mass index (BMI) of 45.0 to 49.9 in adult, unspecified obesity type (HCC) Expected: 08/06/2024 (Approximate), Expires: 11/05/2024 [facility] Comment on above: Expected: 08/06/2024 (Approximate), Expires: 11/05/2024 Start: 08-06-2024 End: 06-25-2025 HEART/LUNG REC POST TX DSA HEART/LUNG REC POST TX DSA ALLOGEN Routine Care after organ transplant Lung transplant status, bilateral (HCC) Bronchiolitis obliterans syndrome (HCC) Encounter for monitoring tacrolimus therapy Essential hypertension Bilateral foot-drop Abnormal PFTs Class 3 severe obesity without serious comorbidity with body mass index (BMI) of 45.0 to 49.9 in adult, unspecified obesity type (HCC) Expected: 08/06/2024 (Approximate), Expires: 06/25/2025 [facility] Comment on above: Expected: 08/06/2024 (Approximate), Expires: 06/25/2025 Start: 08-06-2024 End: 11-05-2024 Lipid 1996 panel - Serum or Plasma LIPID PANEL BASIC Lab Routine Care after organ transplant Lung transplant status, bilateral (HCC) Bronchiolitis obliterans syndrome (HCC) Encounter for monitoring tacrolimus therapy Essential hypertension Bilateral foot-drop Abnormal PFTs Class 3 severe obesity without serious comorbidity with body mass index (BMI) of 45.0 to 49.9 in adult, unspecified obesity type (HCC) Expected: 08/06/2024 (Approximate), Expires: 11/05/2024 [facility] Comment on above: Expected: 08/06/2024 (Approximate), Expires: 11/05/2024 Start: 08-06-2024 End: 11-05-2024 Magnesium [Mass/volume] in Serum or Plasma MAGNESIUM Lab Routine Care after organ transplant Lung transplant status, bilateral (HCC) Bronchiolitis obliterans syndrome (HCC) Encounter for monitoring tacrolimus therapy Essential hypertension Bilateral foot-drop Abnormal PFTs Class 3 severe obesity without serious comorbidity with body mass index (BMI) of 45.0 to 49.9 in adult, unspecified obesity type (HCC) Expected: 08/06/2024 (Approximate), Expires: 11/05/2024 [facility] Comment on above: Expected: 08/06/2024 (Approximate), Expires: 11/05/2024 Start: 08-06-2024 End: 07-25-2025 SPIROMETRY BASELINE ONLY SPIROMETRY BASELINE ONLY PFT Routine Care after organ transplant Lung transplant status, bilateral (HCC) Bronchiolitis obliterans syndrome (HCC) Encounter for monitoring tacrolimus therapy Essential hypertension Bilateral foot-drop Abnormal PFTs Class 3 severe obesity without serious comorbidity with body mass index (BMI) of 45.0 to 49.9 in adult, unspecified obesity type (HCC) Expected: 08/06/2024 (Approximate), Expires: 07/25/2025 [facility] Comment on above: Expected: 08/06/2024 (Approximate), Expires: 07/25/2025 Start: 08-06-2024 End: 11-05-2024 Tacrolimus [Mass/volume] in Blood TACROLIMUS/FK-506 BL Lab Routine Care after organ transplant Lung transplant status, bilateral (HCC) Bronchiolitis obliterans syndrome (HCC) Encounter for monitoring tacrolimus therapy Essential hypertension Bilateral foot-drop Abnormal PFTs Class 3 severe obesity without serious comorbidity with body mass index (BMI) of 45.0 to 49.9 in adult, unspecified obesity type (HCC) Expected: 08/06/2024 (Approximate), Expires: 11/05/2024 [facility] Comment on above: Expected: 08/06/2024 (Approximate), Expires: 11/05/2024 Start: 08-06-2024 End: 07-25-2025 XR Chest PA and Lateral XR CHEST 2V FRONTAL/LAT Radiology Routine Care after organ transplant Lung transplant status, bilateral (HCC) Bronchiolitis obliterans syndrome (HCC) Encounter for monitoring tacrolimus therapy Essential hypertension Bilateral foot-drop Abnormal PFTs Class 3 severe obesity without serious comorbidity with body mass index (BMI) of 45.0 to 49.9 in adult, unspecified obesity type (HCC) Expected: 08/06/2024 (Approximate), Expires: 07/25/2025 [facility] Work Phone: Comment on above: Expected: 08/06/2024 (Approximate), Expires: 07/25/2025 Start: 08-06-2024 End: 08-06-2024 Patient encounter procedure 08/06/2024 11:30 AM EST Appointment Radiology [id number] [id number] POST LUNG TXP Radiology Comment on above: POST LUNG TXP Start: 08-06-2024 End: 08-06-2024 Patient encounter procedure 08/06/2024 9:30 AM EST Office Visit Pulmonary Medicine [address] [id number] Jeni Daly MD [address] [place] [address] POST LUNG TXP Pulmonary Medicine Comment on above: POST LUNG TXP Start: 08-06-2024 End: 08-06-2024 ambulatory 08/06/2024 8:45 AM EST Procedure Pulmonary Medicine [address] [id number] 3, Pulm Fct Lab Main [address] [place] [address] POSTLUNG TXP Pulmonary Medicine Comment on above: POSTLUNG TXP Start: 08-06-2024 End: 08-06-2024 Patient encounter procedure Main [facility] Comment on above: POST LUNG TXP Start: 07-22-2024 End: 07-22-2024 Admission to same day surgery center 07/22/2024 12:30 PM EST - 07/22/2024 1:30 PM EST Surgery Admitting [address] [address] Giorgio Diaz MD [address] [place] [address] BRONCHOSCOPY FLEXIBLE ADULT Admitting Comment on above: BRONCHOSCOPY FLEXIBL E ADULT Start: 07-22-2024 End: 07-22-2024 Brncc incl fluor gdnce dx w/cell washg spx BRONCHOSCOPY FLEXIBLE ADULT Lung replaced by transplant ([facility]) 07/22/2024 12:30 PM EST PULM LAB H23 Start: 07-22-2024 Subsequent hospital visit by physician 07/22/2024 12:30 PM EST Hospital Encounter Admitting [address] [address] Giorgio Diaz MD [address] [place] [address] Lung replaced by transplant ([facility]) [Z94.2] Admitting Comment on above: Lung replaced by tra nsplant ([facility]) [Z94.2] Start: 06-25-2024 End: 06-25-2024 Patient encounter procedure 06/25/2024 11:45 AM EDT Office Visit Pulmonary Medicine [address] [address] Jeni Daly MD [address] [place] [address] post lung txp Pulmonary Medicine Comment on above: post lung txp Start: 06-25-2024 End: 06-25-2024 Patient encounter procedure Radiology Comment on above: post lung txp Start: 06-24-2024 End: 06-24-2024 ambulatory 06/24/2024 8:00 AM EDT Results Only [facility] [address] [place] [address] post lung txp [facility] Comment on above: post lung txp Start: 06-18-2024 End: 09-17-2024 CBC W Auto Differential panel - Blood COMPLETE BLOOD COUNT AND DIFFERENTIAL Lab Routine 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) Care after organ transplant Lung transplant status, bilateral (HCC) Bronchiolitis obliterans syndrome (HCC) Class 3 severe obesity without serious comorbidity with body mass index (BMI) of 40.0 to 44.9 in adult, unspecified obesity type (HCC) Encounter for monitoring tacrolimus therapy Essential hypertension Expected: 06/18/2024 (Approximate), Expires: 09/17/2024 [facility] Comment on above: Expected: 06/18/2024 (Approximate), Expires: 09/17/2024 Start: 06-18-2024 End: 09-17-2024 Comprehensive metabolic 2000 panel - Serum or Plasma COMPREHENSIVE METABOLIC PANEL Lab Routine 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) Care after organ transplant Lung transplant status, bilateral (HCC) Bronchiolitis obliterans syndrome (HCC) Class 3 severe obesity without serious comorbidity with body mass index (BMI) of 40.0 to 44.9 in adult, unspecified obesity type (HCC) Encounter for monitoring tacrolimus therapy Essential hypertension Expected: 06/18/2024 (Approximate), Expires: 09/17/2024 [facility] Comment on above: Expected: 06/18/2024 (Approximate), Expires: 09/17/2024 Start: 06-18-2024 End: 09-17-2024 CYTOMEGALOVIRUS (CMV) DNA, QUANTITATIVE PCR, PLASMA CYTOMEGALOVIRUS (CMV) DNA, QUANTITATIVE PCR, PLASMA Lab Routine 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) Care after organ transplant Lung transplant status, bilateral (HCC) Bronchiolitis obliterans syndrome (HCC) Class 3 severe obesity without serious comorbidity with body mass index (BMI) of 40.0 to 44.9 in adult, unspecified obesity type (HCC) Encounter for monitoring tacrolimus therapy Essential hypertension Expected: 06/18/2024 (Approximate), Expires: 09/17/2024 [facility] Comment on above: Expected: 06/18/2024 (Approximate), Expires: 09/17/2024 Start: 06-18-2024 End: 09-17-2024 Ariel Aguirre virus DNA [#/volume] (viral load) in Blood by ELENA with probe detection ARIEL-AGUIRRE VIRUS DNA QUANTIFICATION BY PCR, PLASMA Lab Routine 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) Care after organ transplant Lung transplant status, bilateral (HCC) Bronchiolitis obliterans syndrome (HCC) Class 3 severe obesity without serious comorbidity with body mass index (BMI) of 40.0 to 44.9 in adult, unspecified obesity type (HCC) Encounter for monitoring tacrolimus therapy Essential hypertension Expected: 06/18/2024 (Approximate), Expires: 09/17/2024 [facility] Comment on above: Expected: 06/18/2024 (Approximate), Expires: 09/17/2024 Start: 06-18-2024 End: 03-06-2025 HEART/LUNG REC POST TX DSA HEART/LUNG REC POST TX DSA ALLOGEN Routine 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) Care after organ transplant Lung transplant status, bilateral (HCC) Bronchiolitis obliterans syndrome (HCC) Class 3 severe obesity without serious comorbidity with body mass index (BMI) of 40.0 to 44.9 in adult, unspecified obesity type (HCC) Encounter for monitoring tacrolimus therapy Essential hypertension Expected: 06/18/2024 (Approximate), Expires: 03/06/2025 [facility] Comment on above: Expected: 06/18/2024 (Approximate), Expires: 03/06/2025 Start: 06-18-2024 End: 09-17-2024 Lipid 1996 panel - Serum or Plasma LIPID PANEL BASIC Lab Routine 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) Care after organ transplant Lung transplant status, bilateral (HCC) Bronchiolitis obliterans syndrome (HCC) Class 3 severe obesity without serious comorbidity with body mass index (BMI) of 40.0 to 44.9 in adult, unspecified obesity type (HCC) Encounter for monitoring tacrolimus therapy Essential hypertension Expected: 06/18/2024 (Approximate), Expires: 09/17/2024 [facility] Comment on above: Expected: 06/18/2024 (Approximate), Expires: 09/17/2024 Start: 06-18-2024 End: 09-17-2024 Magnesium [Mass/volume] in Serum or Plasma MAGNESIUM Lab Routine 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) Care after organ transplant Lung transplant status, bilateral (HCC) Bronchiolitis obliterans syndrome (HCC) Class 3 severe obesity without serious comorbidity with body mass index (BMI) of 40.0 to 44.9 in adult, unspecified obesity type (HCC) Encounter for monitoring tacrolimus therapy Essential hypertension Expected: 06/18/2024 (Approximate), Expires: 09/17/2024 [facility] Comment on above: Expected: 06/18/2024 (Approximate), Expires: 09/17/2024 Start: 06-18-2024 End: 04-05-2025 SPIROMETRY BASELINE ONLY SPIROMETRY BASELINE ONLY PFT Routine 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) Care after organ transplant Lung transplant status, bilateral (HCC) Bronchiolitis obliterans syndrome (HCC) Class 3 severe obesity without serious comorbidity with body mass index (BMI) of 40.0 to 44.9 in adult, unspecified obesity type (HCC) Encounter for monitoring tacrolimus therapy Essential hypertension Expected: 06/18/2024 (Approximate), Expires: 04/05/2025 [facility] Comment on above: Expected: 06/18/2024 (Approximate), Expires: 04/05/2025 Start: 06-18-2024 End: 09-17-2024 Tacrolimus [Mass/volume] in Blood TACROLIMUS/FK-506 BL Lab Routine 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) Care after organ transplant Lung transplant status, bilateral (HCC) Bronchiolitis obliterans syndrome (HCC) Class 3 severe obesity without serious comorbidity with body mass index (BMI) of 40.0 to 44.9 in adult, unspecified obesity type (HCC) Encounter for monitoring tacrolimus therapy Essential hypertension Expected: 06/18/2024 (Approximate), Expires: 09/17/2024 [facility] Comment on above: Expected: 06/18/2024 (Approximate), Expires: 09/17/2024 Start: 06-18-2024 End: 04-05-2025 XR Chest PA and Lateral XR CHEST 2V FRONTAL/LAT Radiology Routine 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) Care after organ transplant Lung transplant status, bilateral (HCC) Bronchiolitis obliterans syndrome (HCC) Class 3 severe obesity without serious comorbidity with body mass index (BMI) of 40.0 to 44.9 in adult, unspecified obesity type (HCC) Encounter for monitoring tacrolimus therapy Essential hypertension Expected: 06/18/2024 (Approximate), Expires: 04/05/2025 [facility] Work Phone: Comment on above: Expected: 06/18/2024 (Approximate), Expires: 04/05/2025 Start: 06-18-2024 End: 06-18-2024 ambulatory 06/18/2024 8:15 AM EDT Procedure Pulmonary Medicine [address] [id number], Pulm Fct Lab Main [address] [place] [address] post lung txp Pulmonary Medicine Comment on above: post lung txp Start: 06-18-2024 End: 06-18-2024 Patient encounter procedure Radiology Comment on above: post lung txp Start: 06-14-2024 End: 06-14-2024 ambulatory 06/14/2024 8:00 AM EDT Results Only [facility] Draw Station [address] [facility] [place] [id number] post lung txp [facility] Draw Station Comment on above: post lung txp Start: 05-12-2024 Covid-19 Vaccine ( season) Covid-19 Vaccine ( season) [facility] Start: 05-12-2024 Covid-19 Vaccine ( season) Covid-19 Vaccine ( season) [facility] Start: 05-12-2024 Influenza vaccination Influenza Vacc ine (#1) [facility] Start: 05-02-2024 BP CONTROLLED (<130/80) BP CONTROLLE D (<130/80) [facility] Start: 05-01-2024 Covid-19 Vaccine ( season) Covid-19 Vaccine ( season) [facility] Start: 03-21-2024 End: 03-21-2024 Patient encounter procedure 03/21/2024 2:15 PM EDT Office Visit [facility] [address] [place] [address] Maria C Pardo, [place] [address] [place] [address] big toe on both feet [facility] Comment on above: big toe on both feet Start: 03-07-2024 ANNUAL PCP TEAM 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 MANAGER FREIDA DISEASE VISIT ANNUAL PCP TEAM CHRONIC DISEASE VISIT [facility] Start: 03-06-2024 End: 03-06-2024 Patient encounter procedure 03/06/2024 9:30 AM EDT Office Visit Pulmonary Medicine [address] [address] Jeni Daly MD [address] [place] [address] Lung tx post Pulmonary Medicine Comment on above: Lung tx post Start: 03-06-2024 End: 03-06-2024 ambulatory 03/06/2024 8:45 AM EDT Procedure Pulmonary Medicine [address] [phone] [id number], Pulm Fct Lab Main [address] [place] [address] Lung tx post Pulmonary Medicine Comment on above: Lung tx post Start: 03-06-2024 End: 03-06-2024 Patient encounter procedure Main [address] [id number] Draw Station Comment on above: Lung tx post Start: 02-08-2024 ANNUAL PCP TEAM 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 MANAGER FREIDA DISEASE VISIT ANNUAL PCP TEAM CHRONIC DISEASE VISIT [facility] Start: 01-31-2024 ANNUAL PCP TEAM 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 MANAGER FREIDA DISEASE VISIT ANNUAL PCP TEAM CHRONIC DISEASE VISIT [facility] Start: 01-14-2024 SHINGRIX VACCINE (1 of 2) SHINGRIX VACCINE (1 of 2) [facility] Comment on above: Postponed from 02/21 (Declined at this time) Start: 11-30-2023 End: 02-29-2024 CBC W Auto Differential panel - Blood CBC + DIFF Lab Routine 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) Care after organ transplant Lung transplant status, bilateral (HCC) Bronchiolitis obliterans syndrome (HCC) Class 3 severe obesity without serious comorbidity with body mass index (BMI) of 40.0 to 44.9 in adult, unspecified obesity type (HCC) Encounter for monitoring tacrolimus therapy Essential hypertension Traumatic hematoma of left knee, subsequent encounter Expected: 11/30/2023 (Approximate), Expires: 02/29/2024 [facility] Work Phone: Comment on above: Expected: 11/30/2023 (Approximate), Expires: 02/29/2024 Start: 11-30-2023 End: 02-29-2024 Comprehensive metabolic 2000 panel - Serum or Plasma COMP METABOLIC PANEL Lab Routine 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) Care after organ transplant Lung transplant status, bilateral (HCC) Bronchiolitis obliterans syndrome (HCC) Class 3 severe obesity without serious comorbidity with body mass index (BMI) of 40.0 to 44.9 in adult, unspecified obesity type (HCC) Encounter for monitoring tacrolimus therapy Essential hypertension Traumatic hematoma of left knee, subsequent encounter Expected: 11/30/2023 (Approximate), Expires: 02/29/2024 [facility] Work Phone: Comment on above: Expected: 11/30/2023 (Approximate), Expires: 02/29/2024 Start: 11-30-2023 End: 02-29-2024 CYTOMEGALOVIRUS (CMV) DNA, QUANTITATIVE PCR, PLASMA CYTOMEGALOVIRUS (CMV) DNA, QUANTITATIVE PCR, PLASMA Lab Routine Lung replaced by transplant ([facility]) Care after organ transplant Lung transplant status, bilateral (HCC) Bronchiolitis obliterans syndrome (HCC) Class 3 severe obesity without serious comorbidity with body mass index (BMI) of 40.0 to 44.9 in adult, unspecified obesity type (HCC) Encounter for monitoring tacrolimus therapy Essential hypertension Traumatic hematoma of left knee, subsequent encounter Expected: 11/30/2023 (Approximate), Expires: 02/29/2024 [facility] Work Phone: Comment on above: Expected: 11/30/2023 (Approximate), Expires: 02/29/2024 Start: 11-30-2023 End: 02-29-2024 Ariel Aguirre virus DNA [#/volume] (viral load) in Blood by ELENA with probe detection ARIEL-AGUIRRE DNA QNT Lab Routine Lung replaced by transplant ([facility]) Care after organ transplant Lung transplant status, bilateral (HCC) Bronchiolitis obliterans syndrome (HCC) Class 3 severe obesity without serious comorbidity with body mass index (BMI) of 40.0 to 44.9 in adult, unspecified obesity type (HCC) Encounter for monitoring tacrolimus therapy Essential hypertension Traumatic hematoma of left knee, subsequent encounter Expected: 11/30/2023 (Approximate), Expires: 02/29/2024 [facility] Work Phone: Comment on above: Expected: 11/30/2023 (Approximate), Expires: 02/29/2024 Start: 11-30-2023 End: 02-29-2024 Lipid 1996 panel - Serum or Plasma LIPID PANEL BASIC Lab Routine 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) Care after organ transplant Lung transplant status, bilateral (HCC) Bronchiolitis obliterans syndrome (HCC) Class 3 severe obesity without serious comorbidity with body mass index (BMI) of 40.0 to 44.9 in adult, unspecified obesity type (HCC) Encounter for monitoring tacrolimus therapy Essential hypertension Traumatic hematoma of left knee, subsequent encounter Expected: 11/30/2023 (Approximate), Expires: 02/29/2024 [facility] Work Phone: Comment on above: Expected: 11/30/2023 (Approximate), Expires: 02/29/2024 Start: 11-30-2023 End: 02-29-2024 Magnesium [Mass/volume] in Serum or Plasma MAGNESIUM BLD Lab Routine 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) Care after organ transplant Lung transplant status, bilateral (HCC) Bronchiolitis obliterans syndrome (HCC) Class 3 severe obesity without serious comorbidity with body mass index (BMI) of 40.0 to 44.9 in adult, unspecified obesity type (HCC) Encounter for monitoring tacrolimus therapy Essential hypertension Traumatic hematoma of left knee, subsequent encounter Expected: 11/30/2023 (Approximate), Expires: 02/29/2024 [facility] Work Phone: Comment on above: Expected: 11/30/2023 (Approximate), Expires: 02/29/2024 Start: 11-30-2023 End: 02-29-2024 Tacrolimus [Mass/volume] in Blood TACROLIMUS/FK-506 BL Lab Routine 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) Care after organ transplant Lung transplant status, bilateral (HCC) Bronchiolitis obliterans syndrome (HCC) Class 3 severe obesity without serious comorbidity with body mass index (BMI) of 40.0 to 44.9 in adult, unspecified obesity type (HCC) Encounter for monitoring tacrolimus therapy Essential hypertension Traumatic hematoma of left knee, subsequent encounter Expected: 11/30/2023 (Approximate), Expires: 02/29/2024 [facility] Work Phone: Comment on above: Expected: 11/30/2023 (Approximate), Expires: 02/29/2024 Start: 11-21-2023 Covid-19 Vaccine () Covid-19 Vaccine () [facility] Start: 11-09-2023 End: 02-08-2024 Cobalamin (Vitamin B12) [Mass/volume] in Serum or Plasma VITAMIN B12 BLOOD Lab Routine Critical illness neuropathy (HCC) Expected: 11/09/2023, Expires: 02/08/2024 [facility] Work Phone: Comment on above: Expected: 11/09/2023 , Expires: 02/08/2024 Start: 11-09-2023 End: 02-08-2024 Methylmalonate [Moles/volume] in Serum or Plasma METHYLMALONIC ACID Lab Routine Critical illness neuropathy (HCC) Expected: 11/09/2023, Expires: 02/08/2024 [facility] Work Phone: Comment on above: Expected: 11/09/2023 , Expires: 02/08/2024 Start: 09-11-2023 Behavioral Health Screening Behavioral Health Screening [facility] Start: 09-11-2023 Depression Assessment Depression Ass essment [facility] Start: 08-29-2023 End: 10-29-2023 CBC W Auto Differential panel - Blood CBC + DIFF Lab Routine 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) Care after organ transplant Lung transplant status, bilateral (HCC) Bronchiolitis obliterans syndrome (HCC) Class 3 severe obesity without serious comorbidity with body mass index (BMI) of 40.0 to 44.9 in adult, unspecified obesity type (HCC) Encounter for monitoring tacrolimus therapy Essential hypertension Obesity, Class III, BMI >= 40 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 for osteoporosis buttermaker 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 Expected: 08/29/2023 (Approximate), Expires: 10/29/2023 [facility] Work Phone: Comment on above: Expected: 08/29/2023 (Approximate), Expires: 10/29/2023 Start: 08-29-2023 End: 10-29-2023 Comprehensive metabolic 2000 panel - Serum or Plasma COMP METABOLIC PANEL Lab Routine 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) Care after organ transplant Lung transplant status, bilateral (HCC) Bronchiolitis obliterans syndrome (HCC) Class 3 severe obesity without serious comorbidity with body mass index (BMI) of 40.0 to 44.9 in adult, unspecified obesity type (HCC) Encounter for monitoring tacrolimus therapy Essential hypertension Obesity, Class III, BMI >= 40 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 for osteoporosis buttermaker 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 Expected: 08/29/2023 (Approximate), Expires: 10/29/2023 [facility] Work Phone: Comment on above: Expected: 08/29/2023 (Approximate), Expires: 10/29/2023 Start: 08-29-2023 End: 10-29-2023 CYTOMEGALOVIRUS (CMV) DNA, QUANTITATIVE PCR, PLASMA CYTOMEGALOVIRUS (CMV) DNA, QUANTITATIVE PCR, PLASMA Lab Routine 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) Care after organ transplant Lung transplant status, bilateral (HCC) Bronchiolitis obliterans syndrome (HCC) Class 3 severe obesity without serious comorbidity with body mass index (BMI) of 40.0 to 44.9 in adult, unspecified obesity type (HCC) Encounter for monitoring tacrolimus therapy Essential hypertension Obesity, Class III, BMI >= 40 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 for osteoporosis custodial 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 Expected: 08/29/2023 (Approximate), Expires: 10/29/2023 [facility] Work Phone: Comment on above: Expected: 08/29/2023 (Approximate), Expires: 10/29/2023 Start: 08-29-2023 End: 05-31-2024 Dxa bone density study axial skeleton DXA-AXIAL SKELETON WITH VFA Radiology Routine Lung replaced by transplant ([facility]) Care after organ transplant Lung transplant status, bilateral (HCC) Bronchiolitis obliterans syndrome (HCC) Class 3 severe obesity without serious comorbidity with body mass index (BMI) of 40.0 to 44.9 in adult, unspecified obesity type (HCC) Encounter for monitoring tacrolimus therapy Essential hypertension Obesity, Class III, BMI >= 40 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 for osteoporosis custodial 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 Expected: 08/29/2023 (Approximate), Expires: 05/31/2024 [facility] Work Phone: Comment on above: Expected: 08/29/2023 (Approximate), Expires: 05/31/2024 Start: 08-29-2023 End: 10-29-2023 Ariel Aguirre virus DNA [#/volume] (viral load) in Blood by ELENA with probe detection ARIEL-AGUIRRE DNA QNT Lab Routine 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) Care after organ transplant Lung transplant status, bilateral (HCC) Bronchiolitis obliterans syndrome (HCC) Class 3 severe obesity without serious comorbidity with body mass index (BMI) of 40.0 to 44.9 in adult, unspecified obesity type (HCC) Encounter for monitoring tacrolimus therapy Essential hypertension Obesity, Class III, BMI >= 40 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) Care after organ transplant Lung transplant status, bilateral (HCC) Bronchiolitis obliterans syndrome (HCC) Class 3 severe obesity without serious comorbidity with body mass index (BMI) of 40.0 to 44.9 in adult, unspecified obesity type (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 osteoporosis custodial 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 Expected: 08/29/2023 (Approximate), Expires: 05/01/2024 [facility] Work Phone: Comment on above: Expected: 08/29/2023 (Approximate), Expires: 05/01/2024 Start: 08-29-2023 End: 10-29-2023 Lipid 1996 panel - Serum or Plasma LIPID PANEL BASIC Lab Routine Lung replaced by transplant ([facility]) Care after organ transplant Lung transplant status, bilateral (HCC) Bronchiolitis obliterans syndrome (HCC) Class 3 severe obesity without serious comorbidity with body mass index (BMI) of 40.0 to 44.9 in adult, unspecified obesity type (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 Expected: 08/29/2023 (Approximate), Expires: 10/29/2023 [facility] Work Phone: Comment on above: Expected: 08/29/2023 (Approximate), Expires: 10/29/2023 Start: 08-29-2023 End: 10-29-2023 Magnesium [Mass/volume] in Serum or Plasma MAGNESIUM BLD Lab Routine 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) Care after organ transplant Lung transplant status, bilateral (HCC) Bronchiolitis obliterans syndrome (HCC) Class 3 severe obesity without serious comorbidity with body mass index (BMI) of 40.0 to 44.9 in adult, unspecified obesity type (HCC) Encounter for monitoring tacrolimus therapy Essential hypertension Obesity, Class III, BMI >= 40 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 for osteoporosis buttermaker 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 Expected: 08/29/2023 (Approximate), Expires: 10/29/2023 [facility] Work Phone: Comment on above: Expected: 08/29/2023 (Approximate), Expires: 10/29/2023 Start: 08-29-2023 End: 05-31-2024 Radiologic exam chest 2 views XR CHEST 2V FRONTAL/LAT Radiology Routine 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) Care after organ transplant Lung transplant status, bilateral (HCC) Bronchiolitis obliterans syndrome (HCC) Class 3 severe obesity without serious comorbidity with body mass index (BMI) of 40.0 to 44.9 in adult, unspecified obesity type (HCC) Encounter for monitoring tacrolimus therapy Essential hypertension Obesity, Class III, BMI >= 40 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 for osteoporosis custodial 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 Expected: 08/29/2023 (Approximate), Expires: 05/31/2024 [facility] Work Phone: Comment on above: Expected: 08/29/2023 (Approximate), Expires: 05/31/2024 Start: 08-29-2023 End: 05-31-2024 SPIROMETRY BASELINE ONLY SPIROMETRY BASELINE ONLY PFT Routine 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) Care after organ transplant Lung transplant status, bilateral (HCC) Bronchiolitis obliterans syndrome (HCC) Class 3 severe obesity without serious comorbidity with body mass index (BMI) of 40.0 to 44.9 in adult, unspecified obesity type (HCC) Encounter for monitoring tacrolimus therapy Essential hypertension Obesity, Class III, BMI >= 40 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 for osteoporosis custodial 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 Expected: 08/29/2023 (Approximate), Expires: 05/31/2024 [facility] Work Phone: Comment on above: Expected: 08/29/2023 (Approximate), Expires: 05/31/2024 Start: 08-29-2023 End: 10-29-2023 Tacrolimus [Mass/volume] in Blood TACROLIMUS/FK-506 BL Lab Routine 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) Care after organ transplant Lung transplant status, bilateral (HCC) Bronchiolitis obliterans syndrome (HCC) Class 3 severe obesity without serious comorbidity with body mass index (BMI) of 40.0 to 44.9 in adult, unspecified obesity type (HCC) Encounter for monitoring tacrolimus therapy Essential hypertension Obesity, Class III, BMI >= 40 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 for osteoporosis buttermaker 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 Expected: 08/29/2023 (Approximate), Expires: 10/29/2023 [facility] Work Phone: Comment on above: Expected: 08/29/2023 (Approximate), Expires: 10/29/2023 Start: 05-12-2023 Covid-19 Vaccine ( season) Covid-19 Vaccine () [facility] Start: 05-12-2023 Influenza vaccination [facility] Start: 05-02-2023 End: 07-02-2023 CBC W Auto Differential panel - Blood CBC + DIFF Lab Routine 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) Care after organ transplant Lung transplant status, bilateral (HCC) Bronchiolitis obliterans syndrome (HCC) Class 3 severe obesity without serious comorbidity with body mass index (BMI) of 40.0 to 44.9 in adult, unspecified obesity type (HCC) Encounter for monitoring tacrolimus therapy Essential hypertension Expected: 05/02/2023 (Approximate), Expires: 07/02/2023 [facility] Work Phone: Comment on above: Expected: 05/02/2023 (Approximate), Expires: 07/02/2023 Start: 05-02-2023 End: 07-02-2023 CMV DNA DETECTION AND QUANT CMV DNA DETECTION AND QUANT Lab Routine 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) Care after organ transplant Lung transplant status, bilateral (HCC) Bronchiolitis obliterans syndrome (HCC) Class 3 severe obesity without serious comorbidity with body mass index (BMI) of 40.0 to 44.9 in adult, unspecified obesity type (HCC) Encounter for monitoring tacrolimus therapy Essential hypertension Expected: 05/02/2023 (Approximate), Expires: 07/02/2023 [facility] Work Phone: Comment on above: Expected: 05/02/2023 (Approximate), Expires: 07/02/2023 Start: 05-02-2023 End: 07-02-2023 Comprehensive metabolic 2000 panel - Serum or Plasma COMP METABOLIC PANEL Lab Routine Lung replaced by transplant ([facility]) Care after organ transplant Lung transplant status, bilateral (HCC) Bronchiolitis obliterans syndrome (HCC) Class 3 severe obesity without serious comorbidity with body mass index (BMI) of 40.0 to 44.9 in adult, unspecified obesity type (HCC) Encounter for monitoring tacrolimus therapy Essential hypertension Expected: 05/02/2023 (Approximate), Expires: 07/02/2023 [facility] Work Phone: Comment on above: Expected: 05/02/2023 (Approximate), Expires: 07/02/2023 Start: 05-02-2023 End: 07-02-2023 Ariel Aguirre virus DNA [#/volume] (viral load) in Blood by ELENA with probe detection ARIEL-AGUIRRE DNA QNT Lab Routine Lung replaced by transplant ([facility]) Care after organ transplant Lung transplant status, bilateral (HCC) Bronchiolitis obliterans syndrome (HCC) Class 3 severe obesity without serious comorbidity with body mass index (BMI) of 40.0 to 44.9 in adult, unspecified obesity type (HCC) Encounter for monitoring tacrolimus therapy Essential hypertension Expected: 05/02/2023 (Approximate), Expires: 07/02/2023 [facility] Work Phone: Comment on above: Expected: 05/02/2023 (Approximate), Expires: 07/02/2023 Start: 05-02-2023 End: 01-03-2024 HEART/LUNG REC POST TX DSA HEART/LUNG REC POST TX DSA ALLOGEN Routine 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) Care after organ transplant Lung transplant status, bilateral (HCC) Bronchiolitis obliterans syndrome (HCC) Class 3 severe obesity without serious comorbidity with body mass index (BMI) of 40.0 to 44.9 in adult, unspecified obesity type (HCC) Encounter for monitoring tacrolimus therapy Essential hypertension Expected: 05/02/2023 (Approximate), Expires: 01/03/2024 [facility] Work Phone: Comment on above: Expected: 05/02/2023 (Approximate), Expires: 01/03/2024 Start: 05-02-2023 End: 07-02-2023 Lipid 1996 panel - Serum or Plasma LIPID PANEL BASIC Lab Routine 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) Care after organ transplant Lung transplant status, bilateral (HCC) Bronchiolitis obliterans syndrome (HCC) Class 3 severe obesity without serious comorbidity with body mass index (BMI) of 40.0 to 44.9 in adult, unspecified obesity type (HCC) Encounter for monitoring tacrolimus therapy Essential hypertension Expected: 05/02/2023 (Approximate), Expires: 07/02/2023 [facility] Work Phone: Comment on above: Expected: 05/02/2023 (Approximate), Expires: 07/02/2023 Start: 05-02-2023 End: 07-02-2023 Magnesium [Mass/volume] in Serum or Plasma MAGNESIUM BLD Lab Routine 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) Care after organ transplant Lung transplant status, bilateral (HCC) Bronchiolitis obliterans syndrome (HCC) Class 3 severe obesity without serious comorbidity with body mass index (BMI) of 40.0 to 44.9 in adult, unspecified obesity type (HCC) Encounter for monitoring tacrolimus therapy Essential hypertension Expected: 05/02/2023 (Approximate), Expires: 07/02/2023 [facility] Work Phone: Comment on above: Expected: 05/02/2023 (Approximate), Expires: 07/02/2023 Start: 05-02-2023 End: 02-02-2024 Radiologic exam chest 2 views XR CHEST 2V FRONTAL/LAT Radiology Routine 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) Care after organ transplant Lung transplant status, bilateral (HCC) Bronchiolitis obliterans syndrome (HCC) Class 3 severe obesity without serious comorbidity with body mass index (BMI) of 40.0 to 44.9 in adult, unspecified obesity type (HCC) Encounter for monitoring tacrolimus therapy Essential hypertension Expected: 05/02/2023 (Approximate), Expires: 02/02/2024 [facility] Work Phone: Comment on above: Expected: 05/02/2023 (Approximate), Expires: 02/02/2024 Start: 05-02-2023 End: 02-02-2024 SPIROMETRY BASELINE ONLY [facility] Work Phone: Comment on above: Expected: 05/02/2023 (Approximate), Expires: 02/02/2024 Start: 05-02-2023 End: 07-02-2023 Tacrolimus [Mass/volume] in Blood TACROLIMUS/FK-506 BL Lab Routine 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) Care after organ transplant Lung transplant status, bilateral (HCC) Bronchiolitis obliterans syndrome (HCC) Class 3 severe obesity without serious comorbidity with body mass index (BMI) of 40.0 to 44.9 in adult, unspecified obesity type (HCC) Encounter for monitoring tacrolimus therapy Essential hypertension Expected: 05/02/2023 (Approximate), Expires: 07/02/2023 [facility] Work Phone: Comment on above: Expected: 05/02/2023 (Approximate), Expires: 07/02/2023 Start: 03-05-2023 TWO PNEUMOVAX 5 YEAR S APART PRIOR TO AGE 65 (#2) TWO PNEUMOVAX 5 YEARS APART PRIOR TO AGE 63 (#2) [facility] Start: 02-28-2023 COVID-19 VACCINE (7 - Pfizer risk series) COVID-19 VACCINE (7 - Pfizer risk series) [facility] Start: 2023 HPV TESTING HPV TESTING [facility] Start: 2023 Screening for malign ant neoplasm of cervix HPV Testing [facility] Start: 01-12-2023 ANNUAL PCP TEAM 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 FREIDA DISEASE VISIT ANNUAL PCP TEAM CHRONIC DISEASE VISIT [facility] Start: 12-22-2022 End: 2023 25-hydroxyvitamin D3 [Mass/volume] in Serum or Plasma VITAMIN D 25 HYDROXY Lab Routine Lung transplant status, bilateral (HCC) 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 for osteoporosis buttermaker 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 Hypervitaminosis D Expected: 12/22/2022, Expires: 2023 [facility] Work Phone: Comment on above: Expected: 12/22/2022 , Expires: 2023 Start: 12-22-2022 End: 2023 CROSS-LINK N-TELOPEP CROSS-LINK N-TELOPEP Lab Routine Lung transplant status, bilateral (HCC) 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 for osteoporosis custodial 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 Expected: 12/22/2022, Expires: 2023 [facility] Work Phone: Comment on above: Expected: 12/22/2022 , Expires: 2023 Start: 10-19-2022 Adult depression screening assessment DEPRESSION SCREENING [facility] Start: 09-11-2022 DEPRESSION ASSESSMENT DEPRESSION ASS ESSMENT [facility] Start: 06-29-2022 End: 08-29-2022 CBC W Auto Differential panel - Blood CBC + DIFF Lab Routine Care after organ transplant Lung transplant status, bilateral (HCC) 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) Encounter for monitoring tacrolimus therapy buttermaker 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 Class 2 obesity without serious comorbidity with body mass index (BMI) of 38.0 to 38.9 in adult, unspecified obesity type 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) Expected: 06/29/2022 (Approximate), Expires: 08/29/2022 [facility] Work Phone: Comment on above: Expected: 06/29/2022 (Approximate), Expires: 08/29/2022 Start: 06-29-2022 End: 08-29-2022 CMV DNA DETECTION AND QUANT CMV DNA DETECTION AND QUANT Lab Routine Care after organ transplant Lung transplant status, bilateral (HCC) 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) Encounter for monitoring tacrolimus therapy buttermaker 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 Class 2 obesity without serious comorbidity with body mass index (BMI) of 38.0 to 38.9 in adult, unspecified obesity type 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) Expected: 06/29/2022 (Approximate), Expires: 08/29/2022 [facility] Work Phone: Comment on above: Expected: 06/29/2022 (Approximate), Expires: 08/29/2022 Start: 06-29-2022 End: 08-29-2022 Comprehensive metabolic 2000 panel - Serum or Plasma COMP METABOLIC PANEL Lab Routine Care after organ transplant Lung transplant status, bilateral (HCC) 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) Encounter for monitoring tacrolimus therapy buttermaker 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 Class 2 obesity without serious comorbidity with body mass index (BMI) of 38.0 to 38.9 in adult, unspecified obesity type 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) Expected: 06/29/2022 (Approximate), Expires: 08/29/2022 [facility] Work Phone: Comment on above: Expected: 06/29/2022 (Approximate), Expires: 08/29/2022 Start: 06-29-2022 End: 08-29-2022 Ariel Aguirre virus DNA [#/volume] (viral load) in Blood by ELENA with probe detection ARIEL-AGUIRRE DNA QNT Lab Routine Care after organ transplant Lung transplant status, bilateral (HCC) 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) Encounter for monitoring tacrolimus therapy custodial 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 Class 2 obesity without serious comorbidity with body mass index (BMI) of 38.0 to 38.9 in adult, unspecified obesity type 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) Expected: 06/29/2022 (Approximate), Expires: 08/29/2022 [facility] Work Phone: Comment on above: Expected: 06/29/2022 (Approximate), Expires: 08/29/2022 Start: 06-29-2022 End: 02-17-2023 HEART/LUNG REC POST TX DSA HEART/LUNG REC POST TX DSA ALLOGEN Routine Care after organ transplant Lung transplant status, bilateral (HCC) 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) Encounter for monitoring tacrolimus therapy buttermaker 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 Class 2 obesity without serious comorbidity with body mass index (BMI) of 38.0 to 38.9 in adult, unspecified obesity type 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) Expected: 06/29/2022 (Approximate), Expires: 02/17/2023 [facility] Work Phone: Comment on above: Expected: 06/29/2022 (Approximate), Expires: 02/17/2023 Start: 06-29-2022 End: 08-29-2022 LIPID PANEL BASIC LIPID PANEL BASIC Lab Routine Care after organ transplant Lung transplant status, bilateral (HCC) 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) Encounter for monitoring tacrolimus therapy buttermaker 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 Class 2 obesity without serious comorbidity with body mass index (BMI) of 38.0 to 38.9 in adult, unspecified obesity type 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) Expected: 06/29/2022 (Approximate), Expires: 08/29/2022 [facility] Work Phone: Comment on above: Expected: 06/29/2022 (Approximate), Expires: 08/29/2022 Start: 06-29-2022 End: 08-29-2022 Magnesium [Mass/volume] in Serum or Plasma MAGNESIUM BLD Lab Routine Care after organ transplant Lung transplant status, bilateral (HCC) 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) Encounter for monitoring tacrolimus therapy custodial 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 Class 2 obesity without serious comorbidity with body mass index (BMI) of 38.0 to 38.9 in adult, unspecified obesity type 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) Expected: 06/29/2022 (Approximate), Expires: 08/29/2022 [facility] Work Phone: Comment on above: Expected: 06/29/2022 (Approximate), Expires: 08/29/2022 Start: 06-29-2022 End: 03-19-2023 Radiologic exam chest 2 views XR CHEST 2V FRONTAL/LAT Radiology Routine Care after organ transplant Lung transplant status, bilateral (HCC) 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) Encounter for monitoring tacrolimus therapy buttermaker 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 Class 2 obesity without serious comorbidity with body mass index (BMI) of 38.0 to 38.9 in adult, unspecified obesity type 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) Expected: 06/29/2022 (Approximate), Expires: 03/19/2023 [facility] Work Phone: Comment on above: Expected: 06/29/2022 (Approximate), Expires: 03/19/2023 Start: 06-29-2022 End: 03-19-2023 SPIROMETRY BASELINE ONLY SPIROMETRY BASELINE ONLY PFT Routine Care after organ transplant Lung transplant status, bilateral (HCC) 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) Encounter for monitoring tacrolimus therapy buttermaker 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 Class 2 obesity without serious comorbidity with body mass index (BMI) of 38.0 to 38.9 in adult, unspecified obesity type 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) Expected: 06/29/2022 (Approximate), Expires: 03/19/2023 [facility] Work Phone: Comment on above: Expected: 06/29/2022 (Approximate), Expires: 03/19/2023 Start: 06-29-2022 End: 08-29-2022 TACROLIMUS/FK-506 BL TACROLIMUS/FK-506 BL Lab Routine Care after organ transplant Lung transplant status, bilateral (HCC) 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) Encounter for monitoring tacrolimus therapy buttermaker 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 Class 2 obesity without serious comorbidity with body mass index (BMI) of 38.0 to 38.9 in adult, unspecified obesity type 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) Expected: 06/29/2022 (Approximate), Expires: 08/29/2022 [facility] Work Phone: Comment on above: Expected: 06/29/2022 (Approximate), Expires: 08/29/2022 Start: 05-30-2022 COVID-19 VACCINE (5 - Booster for Pfizer series) COVID-19 VACCINE (5 - Booster for Pfizer series) [facility] Start: 05-12-2022 Influenza vaccination INFLUENZA (#1) [facility] Start: 03-24-2022 COVID-19 VACCINE (5 - Booster for Pfizer series) COVID-19 VACCINE (5 - Booster for Pfizer series) [facility] Start: 09-11-2021 DEPRESSION ASSESSMENT DEPRESSION ASS ESSMENT [facility] [facility] Start: 08-25-2021 COVID-19 VACCINE (4 - Booster for Pfizer series) COVID-19 VACCINE (4 - Booster for Pfizer series) [facility] Start: 02-22-2012 SHINGRIX VACCINE (1 of 2) SHINGRIX VACCINE (1 of 2) [facility] Start: 2011 Anxiety Screening Anxiety Screening [facility] Start: 2011 BP CONTROLLED (<130/80) BP CONTROLLE D (<130/80) [facility] Start: 2011 Depression Screening Depression Scre ening [facility] End: 05-02-2023 ALLOGEN POST-TX DSA RPT [facility] Comment on above: ONCE for 1 Occurrenc es starting 05/02/2023 until 05/02/2023 End: 01-21-2024 DXA-AXIAL SKELETON DXA-AXIAL SKELETON Radiology Routine Lung transplant status, bilateral (HCC) 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 for osteoporosis custodial 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 1 Occurrences starting 12/22/2022 until 01/21/2024 [facility] Work Phone: Comment on above: 1 Occurrences starti ng 12/22/2022 until 01/21/2024 End: 11-29-2024 HEART/LUNG REC POST TX DSA HEART/LUNG REC POST TX DSA ALLOGEN Routine 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) Encounter for monitoring tacrolimus therapy Essential hypertension Traumatic hematoma of left knee, subsequent encounter 1 Occurrences starting 11/30/2023 until 11/29/2024 [facility] Work Phone: Comment on above: 1 Occurrences starti ng 11/30/2023 until 11/29/2024 End: 02-09-2024 INR in Platelet poor plasma by Coagulation assay INR (POC) Lab Routine CTEPH (chronic thromboembolic pulmonary hypertension) (HCC) custodial (current) use of anticoagulants 2x per week for 104 Occurrences starting 02/08/2023 until 02/09/2024 [facility] Work Phone: Comment on above: 2x per week for 104 Occurrences starting 02/08/2023 until 02/09/2024 End: 02-19-2025 INR in Platelet poor plasma by Coagulation assay INR (POC) Lab Routine VTE (venous thromboembolism) custodial (current) use of anticoagulants 2x per week for 104 Occurrences starting 02/20/2024 until 02/19/2025 [facility] Comment on above: 2x per week for 104 Occurrences starting 02/20/2024 until 02/19/2025 End: 12-06-2024 MR Knee - left WO contrast MRI KNEE WO IVCON LEFT Radiology Routine Left knee pain, unspecified chronicity 1 Occurrences starting 11/07/2023 until 12/06/2024 [facility] Work Phone: Comment on above: 1 Occurrences starti ng 11/07/2023 until 12/06/2024 End: 12-06-2024 MR Lower leg - left WO contrast MRI LOWER LEG WO IVCON LEFT Radiology Routine Encounter for observation for other suspected diseases and conditions ruled out 1 Occurrences starting 11/07/2023 until 12/06/2024 [facility] Work Phone: Comment on above: 1 Occurrences starti ng 11/07/2023 until 12/06/2024 PAP TEST PAP TEST Lab [facility] 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 for malignant neoplasm of cervix Special screening examination for human papillomavirus (HPV) 11/23/2023 2:08 PM EDT [facility] Work Phone: End: 02-08-2024 PT panel - Platelet poor plasma by Coagulation assay PROTHROMBIN TIME/PT Lab Routine CTEPH (chronic thromboembolic pulmonary hypertension) (HCC) custodial (current) use of anticoagulants 2x per week for 104 Occurrences starting 02/08/2023 until 02/08/2024 [facility] Work Phone: Comment on above: 2x per week for 104 Occurrences starting 02/08/2023 until 02/08/2024 End: 02-19-2025 PT panel - Platelet poor plasma by Coagulation assay PROTHROMBIN TIME Lab Routine VTE (venous thromboembolism) buttermaker (current) use of anticoagulants 2x per week for 104 Occurrences starting 02/20/2024 until 02/19/2025 [facility] Work Phone: Comment on above: 2x per week for 104 Occurrences starting 02/20/2024 until 02/19/2025 End: 08-17-2022 Radiologic exam chest 2 views [facility] Work Phone: Comment on above: 1 Occurrences starti ng 08/17/2022 until 08/17/2022 SPIROMETRY BASELINE ONLY SPIROME TRY BASELINE ONLY PFT Routine Care after organ transplant Lung transplant status, bilateral (HCC) Bronchiolitis obliterans syndrome (HCC) CTEPH (chronic thromboembolic pulmonary hypertension) ([facility]) Encounter for monitoring tacrolimus therapy buttermaker 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 Class 2 obesity without serious comorbidity with body mass index (BMI) of 38.0 to 38.9 in adult, unspecified obesity type Lung replaced by transplant ([facility]) 06/28/2022 8:17 AM EDT [facility] Work Phone: SPIROMETRY BASELINE ONLY SPIROME TRY BASELINE ONLY PFT Routine Lung replaced by transplant ([facility]) Follow-up examination after lung transplant ([facility]) Gastroesophageal reflux disease, unspecified whether esophagitis present Encounter for monitoring tacrolimus therapy Encounter for aftercare following lung transplant ([facility]) Essential hypertension 08/17/2022 9:50 AM [facility] Work Phone: SPIROMETRY BASELINE ONLY SPIROME TRY BASELINE ONLY PFT Routine Lung replaced by transplant ([facility]) Care after organ transplant Lung transplant status, bilateral (HCC) Bronchiolitis obliterans syndrome (HCC) Class 3 severe obesity without serious comorbidity with body mass index (BMI) of 40.0 to 44.9 in adult, unspecified obesity type ([facility]) Encounter for monitoring tacrolimus therapy Essential hypertension 11/30/2023 7:41 AM EDT [facility] Work Phone: SPIROMETRY BASELINE ONLY [facility] Work Phone: Comment on above: Ordered: 11/30/2023 SPIROMETRY BASELINE ONLY SPIROME TRY BASELINE ONLY PFT Routine Lung replaced by transplant ([facility]) Care after organ transplant Lung transplant status, bilateral (HCC) Bronchiolitis obliterans syndrome (HCC) Class 3 severe obesity without serious comorbidity with body mass index (BMI) of 40.0 to 44.9 in adult, unspecified obesity type ([facility]) Encounter for monitoring tacrolimus therapy Essential hypertension 06/25/2024 11:31 AM EDT [facility] Work Phone: End: 12-29-2024 XR Chest PA and Lateral XR CHEST 2V FRONTAL/LAT Radiology Routine 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) Care after organ transplant Lung transplant status, bilateral (HCC) Bronchiolitis obliterans syndrome (HCC) Class 3 severe obesity without serious comorbidity with body mass index (BMI) of 40.0 to 44.9 in adult, unspecified obesity type (HCC) Encounter for monitoring tacrolimus therapy Essential hypertension Traumatic hematoma of left knee, subsequent encounter 1 Occurrences starting 11/30/2023 until 12/29/2024 [facility] Work Phone: Comment on above: 1 Occurrences starti ng 11/30/2023 until 12/29/2024 [facility] Immunizations Immunization Date Immunization Notes Care Provider [facility] 06-14-2024 Seasonal, trivalent, recombinant, injectable influenza vaccine, preservative free Pulm 2 Work Phone: [facility] 03-06-2024 COVID-19 vaccine, ag e 12+ yr, season (PFIZER-BIONTECH) Pulm 8 [facility] 09-26-2023 COVID-19 vaccine, ag e 12+ yr, season (PFIZER-BIONTECH) Jeni Daly MD Work Phone: [facility] 07-14-2023 influenza, injectabl e, quadrivalent, preservative free Jeni Daly MD Work Phone: [facility] 07-14-2023 influenza virus vacc ine, unspecified formulation Maria C Pardo DPM Work Phone: [facility] 07-10-2023 influenza, high dose seasonal, preservative-free Jeni Daly MD Work Phone: [facility] 01-03-2023 COVID-19 vaccine, ag e 12+ yr, bivalent (PFIZER-BIONTECH) Jeni Daly MD Work Phone: [facility] 06-28-2022 COVID-19 booster vaccine, age 12+ yr, bivalent (PFIZER-BIONTECH) Pulm 2 Work Phone: [facility] 06-28-2022 influenza, high-dose , quadrivalent vaccine (FLUZONE HIGH DOSE QUADRIVALENT) Pulm 2 Work Phone: [facility] 06-28-2022 influenza virus vacc ine, unspecified formulation Chari Loomis APRN.LIFE SCIENCE RESEARCH ASSISTANT Work Phone: [facility] 01-27-2022 COVID-19 vaccine, ag e 12+ yr (PFIZER-BIONTECH - EDWARDS TOP) Mi Nurse Work Phone: [facility] Work Phone: 11-17-2021 pneumococcal conjuga te vaccine, 13 valent Lynne Chan MD Work Phone: [facility] 07-08-2021 influenza, injectabl e, quadrivalent, contains preservative Lynne Chan MD Work Phone: [facility] Work Phone: 05-26-2021 COVID-19 original vaccine, age 12+ yr, monovalent (PFIZER-BIONTECH - PURPLE TOP) Lynne Chan MD Work Phone: [facility] 12-03-2020 COVID-19 vaccine, ag e 12+ yr (PFIZER-BIONTECH - PURPLE TOP) Lynne Chan MD Work Phone: [facility] Work Phone: 11-12-2020 COVID-19 vaccine, ag e 12+ yr (PFIZER-BIONTECH - PURPLE TOP) Lynne Chan MD Work Phone: [facility] 06-24-2020 influenza, injectabl e, quadrivalent, preservative free Lynne Chan MD Work Phone: [facility] 06-25-2019 influenza, seasonal, injectable Lynne Chan MD Work Phone: [facility] Work Phone: 06-16-2019 influenza virus vacc ine, unspecified formulation Lynne Chan MD Work Phone: [facility] Work Phone: 06-05-2018 influenza, injectabl e, quadrivalent, contains preservative Lynne Chan MD Work Phone: [facility] 04-10-2018 tetanus and diphther ia toxoids, adsorbed, preservative free, for adult use (2 Lf of tetanus toxoid and 2 Lf of diphtheria toxoid) Lynne Chan MD Work Phone: [facility] Work Phone: 03-05-2018 pneumococcal polysaccharide vaccine, 23 valent Lynne Chan MD Work Phone: [facility] 07-04-2017 influenza, seasonal, injectable Lynne Chan MD Work Phone: [facility] Work Phone: 12-12-2016 pneumococcal conjuga te vaccine, 13 valent Lynne Chan MD Work Phone: [facility] 06-28-2016 influenza, injectabl e, quadrivalent, contains preservative Lynne Chan MD Work Phone: [facility] Work Phone: 06-28-2016 influenza, seasonal, injectable Lynne Chan MD Work Phone: [facility] Work Phone: 08-19-2015 influenza, injectabl e, quadrivalent, preservative free Lynne Chan MD Work Phone: [facility] Work Phone: 08-19-2015 influenza, seasonal, injectable Lynne Chan MD Work Phone: [facility] 04-27-2015 hepatitis B vaccine, adult dosage Lynne Chan MD Work Phone: [facility] 08-22-2014 influenza, injectabl e, quadrivalent, contains preservative Lynne Chan MD Work Phone: [facility] 08-22-2014 influenza, seasonal, injectable Lynne Chan MD Work Phone: [facility] Work Phone: 07-18-2014 influenza, seasonal, injectable Lynne Chan MD Work Phone: [facility] 07-19-2013 influenza, injectabl e, quadrivalent, contains preservative Lynne Chan MD Work Phone: [facility] 07-19-2013 influenza, seasonal, injectable Lynne Chan MD Work Phone: [facility] Work Phone: 07-14-2013 influenza virus vacc ine, unspecified formulation Lynne Chan MD Work Phone: [facility] 09-16-2011 hepatitis A vaccine, adult dosage Lynne Chan MD Work Phone: [facility] 09-16-2011 hepatitis A vaccine, pediatric/adolescent dosage, 2 dose schedule Lynne Chan MD Work Phone: [facility] Work Phone: 09-16-2011 human papilloma viru s vaccine, quadrivalent Lynne Chan MD Work Phone: [facility] Work Phone: 09-16-2011 Human Papillomavirus 9-valent vaccine Lynne Chan MD Work Phone: [facility] 06-04-2011 human papilloma viru s vaccine, quadrivalent Lynne Chan MD Work Phone: [facility] Work Phone: 06-04-2011 Human Papillomavirus 9-valent vaccine Lynne Chan MD Work Phone: [facility] 06-04-2011 meningococcal polysaccharide (groups A, C, Y and W-135) diphtheria toxoid conjugate vaccine (MCV4P) Lynne Chan MD Work Phone: [facility] 03-09-2011 hepatitis A vaccine, adult dosage Lynne Chan MD Work Phone: [facility] 03-09-2011 hepatitis A vaccine, pediatric/adolescent dosage, 2 dose schedule Lynne Chan MD Work Phone: [facility] 03-09-2011 human papilloma viru s vaccine, quadrivalent Lynne Chan MD Work Phone: [facility] Work Phone: 03-09-2011 Human Papillomavirus 9-valent vaccine Lynne Chan MD Work Phone: [facility] 07-15-2009 novel Influenza-H1N1 -09, live virus for nasal administration Lynne Chan MD Work Phone: [facility] Work Phone: 04-07-2008 meningococcal polysaccharide (groups A, C, Y and W-135) diphtheria toxoid conjugate vaccine (MCV4P) Lynne Chan MD Work Phone: [facility] 04-07-2008 tetanus toxoid, redu tabitha diphtheria toxoid, and acellular pertussis vaccine, adsorbed Lynne Chan MD Work Phone: [facility] 04-07-2008 varicella virus vaccine Lynne Chan MD Work Phone: [facility] 04-29-1998 diphtheria, tetanus toxoids and pertussis vaccine Lynne Chan MD Work Phone: [facility] 04-29-1998 trivalent poliovirus vaccine, live, oral Lynne Chan MD Work Phone: [facility] 04-09-1998 diphtheria, tetanus toxoids and acellular pertussis vaccine, unspecified formulation Lynne Chan MD Work Phone: [facility] Work Phone: 04-09-1998 diphtheria, tetanus toxoids and pertussis vaccine Lynne Chan MD Work Phone: [facility] 04-09-1998 measles, mumps and rubella virus vaccine Lynne Chan MD Work Phone: [facility] 04-09-1998 trivalent poliovirus vaccine, live, oral Lynne Chan MD Work Phone: [facility] 03-18-1998 measles, mumps and rubella virus vaccine Lynne Chan MD Work Phone: [facility] 05-02-1995 varicella virus vaccine Lynne Chan MD Work Phone: [facility] 06-07-1994 diphtheria, tetanus toxoids and acellular pertussis vaccine, unspecified formulation Lynne Chan MD Work Phone: [facility] Work Phone: 06-07-1994 haemophilus influenz ae type b vaccine, HbOC conjugate Lynne Chan MD Work Phone: [facility] 06-07-1994 haemophilus influenz ae type b vaccine, PRP-T conjugate Lynne Chan MD Work Phone: [facility] Work Phone: 03-17-1994 measles, mumps and rubella virus vaccine Lynne Chan MD Work Phone: [facility] Work Phone: 03-17-1994 trivalent poliovirus vaccine, live, oral Lynne Chan MD Work Phone: [facility] 1993 diphtheria, tetanus toxoids and pertussis vaccine Lynne Chan MD Work Phone: [facility] 1993 haemophilus influenz ae type b vaccine, PRP-T conjugate Lynne Chan MD Work Phone: [facility] Work Phone: 1993 hepatitis B vaccine, pediatric or pediatric/adolescent dosage Lynne Chan MD Work Phone: [facility] 1993 haemophilus influenz ae type b vaccine, HbOC conjugate Lynne Chan MD Work Phone: [facility] 1993 diphtheria, tetanus toxoids and pertussis vaccine Lynne Chan MD Work Phone: [facility] 1993 haemophilus influenz ae type b vaccine, HbOC conjugate Lynne Chan MD Work Phone: [facility] 1993 haemophilus influenz ae type b vaccine, PRP-T conjugate Lynne Chan MD Work Phone: [facility] Work Phone: 1993 trivalent poliovirus vaccine, live, oral Lynne Chan MD Work Phone: [facility] 1993 diphtheria, tetanus toxoids and pertussis vaccine Lynne Chan MD Work Phone: [facility] Work Phone: 1993 haemophilus influenz ae type b vaccine, PRP-T conjugate Lynne Chan MD Work Phone: [facility] Work Phone: 1993 hepatitis B vaccine, pediatric or pediatric/adolescent dosage Lynne Chan MD Work Phone: [facility] 1993 trivalent poliovirus vaccine, live, oral Lynne Chan MD Work Phone: [facility] Work Phone: 1993 hepatitis B vaccine, pediatric or pediatric/adolescent dosage Lynne Chan MD Work Phone: [facility] Payers Date Payer Category Payer Medicaid [id number] 2024 Private Health Insurance HUMANA HUMANA MEDICAID [facility] [id number] 2024-Present [address] [address] [place] [address] Medicaid [id number] 2023 Medicare [id number] 2023 Medicare [id number] 2022 Medicare [id number] 2022 Medicare [id number] 2017 Medicaid [employer] [id number] 2017-Present [phone] [address] [place] [address] Medicaid [id number] 2017 Medicaid [id number] Unknown [facility] PA MARKR [facility] PAYOR [id number] Effective for all dates [address] [address] [place] [address] Other [id number] Social History Date Type Detail Facility Start: 01-25-2013 End: 02-27-2013 Tobacco smoking status [facility] Never smoked tobacco [facility] Work Phone: Start: 01-25-2013 End: 02-27-2013 Tobacco use and exposure Smokeless tobacco non-user [facility] Work Phone: Start: 11-17-2021 End: 06-25-2024 Alcohol intake Current drinker of alcohol (finding) [facility] Start: 08-11-2020 End: 03-07-2023 History SDOH Alcohol Frequency 2 [facility] Start: 08-11-2020 End: 03-07-2023 History SDOH Alcohol Std Drinks 1 [facility] Start: 08-08-2014 History SDOH Alcohol Comment Seldom [facility] Start: 06-08-2020 End: 03-07-2023 History SDOH Social Connections Meetings 3 [facility] Start: 06-08-2020 End: 03-07-2023 History SDOH Social Connections Living 7 [facility] Start: 06-08-2020 History SDOH Physica l Activity DPW 5 [facility] Start: 06-08-2020 End: 03-07-2023 History SDOH Stress 4 [facility] Start: 06-08-2020 Education 17 [facility] Start: 1995 Sex Assigned At Female [facility] Start: 11-23-2021 End: 07-11-2022 Exposure to SARS-CoV-2 (event) Not sure [facility] Work Phone: Start: 01-02-2022 End: 01-12-2022 Exposure to SARS-CoV-2 (event) Unable to assess [facility] Start: 03-07-2023 End: 06-25-2024 History of Social function [facility] Start: 03-07-2023 End: 06-25-2024 Social connection and isolation panel [facility] Do you belong to any clubs or organizations such as roman catholic groups, unions, fraternal or athletic groups, or school groups? Yes [facility] Are you now , , , , never or living with a partner? Never [facility] How often to you hav e a drink containing alcohol? 2-4 times a month [facility] How many standard dr inks containing alcohol do you have on a typical day? 1 or 2 [facility] How often do you hav e 6 or more drinks on 1 occasion? Never [facility] How hard is it for y ou to pay for the very basics like food, housing, medical care, and heating Somewhat hard [facility] Adult Depression Screening Assessment 2 [facility] Work Phone: Do you feel stress - tense, restless, nervous, or anxious, or unable to sleep at night because your mind is troubled all the time - these days [OSQ] To some extent [facility] (I/We) worried wheth er (my/our) food would run out before (I/we) got money to buy more. Never true [facility] In the past 12 month s, was there a time when you were not able to pay the mortgage or rent on time? No [facility] Start: 11-06-2020 Gender identity Identifies as female gender (finding) [facility] How often to you hav e a drink containing alcohol? Monthly or less [facility] Do you feel stress - tense, restless, nervous, or anxious, or unable to sleep at night because your mind is troubled all the time - these days [OSQ] Rather much [facility] Medical Equipment Procedure Code Equipment Code Equipment Origin al Text Equipment Identifier Dates Implant Voice Ge l Radiesse 1cc Syringe - [id number] Start: 02-14-2014 Comment on above: Description: Radiess e Voice Gel Injectable implant Leeper Cv 4x.5in Thk1.65mm Ptfe - [id number] Start: 06-03-2015 Plate, [address] - [id number] Start: 06-10-2015 Plate 8 H Sternalock Jay Jay Bn - [id number] Start: 06-10-2015 Plate Eber 12 H Ladder Bn Strnl - [id number] Start: 06-10-2015 Screw Bn 2.4mm 12mm Sternalock - [id number] Start: 06-10-2015 Trach Tube Bivon a Sz 7.5mm Tts - [id number] Start: 06-19-2015 Ring Anlplsty 32 mm Trcsd Ovl - [id number] Start: 05-29-2015 Comment on above: Description: tricusp id 1 Each one time a week. [id number] Start: 12-16-2022 End: 04-03-2024 Comment on above: 1 Each one time a we ek. Clinical Notes 12-24-2015 to 06-27-2024 Telephone Encounter - Brooke Guerrero HUC - 06/27/2024 8:17 AM EDTTelephone Encounter - Brooke Guerrero HUC - 06/27/2024 8:17 AM EDTTelephone Encounter - Serenity Mendoza RN - 06/25/2024 3:51 PM EDT Note Date & Type Note Facility 06-27-2024 Telephone encounter Note Contacted patient to schedule Bronchoscopy. No answer,left message. [facility] 06-27-2024 Miscellaneous Notes Contacted patient to schedule Bronchoscopy. No answer,left message. documented in this encounter [facility] 06-25-2024 Telephone encounter Note Labs reviewed with Dr. Daly, no changes. Bronch in two weeks. Bridge coumadin with lovenox. The following approved medication requests have been transmitted electronically. Requested Prescriptions Pending Prescriptions Disp Refills enoxaparin (LOVENOX) 100 mg/mL syrg 42 mL 0 Sig: Inject 1 mL subcutaneously every 12 hours for 21 days. Serenity Mendoza RN [facility] 06-25-2024 Miscellaneous Notes Labs reviewed with Dr. Daly, no changes. Bronch in two weeks. Bridge coumadin with lovenox. The following approved medication requests have been transmitted electronically. Requested Prescriptions Pending Prescriptions Disp Refills enoxaparin (LOVENOX) 100 mg/mL syrg 42 mL 0 Sig: Inject 1 mL subcutaneously every 12 hours for 21 days. Serenity Mendoza RN documented in this encounter [facility] 06-25-2024 Telephone encounter Note Patient was in clinic, to be addressed with MD and coordinator. [facility] 06-25-2024 Miscellaneous Notes Patient was in clinic, to be addressed with MD and coordinator. Tacrolimus level was therapeutic at 7.5. Current dose is 1.5/1. Would recommend no change to current dose. Recheck labs in 1 month. Oralia Denton PharmD PGY2 Solid Organ Transplant [employer] Operator Phone/pager: [phone] Transplants: 05/29/2015 (Lung) Lab Results Component Value Date FK506 7.5 06/24/2024 CREAT 0.93 06/24/2024 K 4.1 06/24/2024 WBC 8.46 06/24/2024 ABSNEUT 5.38 06/24/2024 CMVCPY Not detected 06/24/2024 Disp Refills Start End tacrolimus IR (PROGRAF) 0.5 mg capsule Sig: Take 1 capsule by mouth every morning. tacrolimus IR (PROGRAF) 1 mg capsule Sig: Take 1 capsule by mouth two times a day. documented in this encounter [facility] 06-25-2024 Telephone encounter Note Tacrolimus level was therapeutic at 7.5. Current dose is 1.5/1. Would recommend no change to current dose. Recheck labs in 1 month. 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 Ro. 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 Lymph nodes with focal granulomatous lymphadenitis. COMMENT Multiple Movat stains were evaluated. The etiology of the foci of granulomatous vasculitis is uncertain; a drug reaction is a consideration. Dr. Joellen Cruz from the cardiovascular pathology service has also reviewed this case. Teo Carter M.D POST TRANSPLANT EVENTS CMV: DONOR+ / RECIPIENT- EBV: DONOR+ / RECIPIENT+ PGD SCORE: PGD Score T0: Grade 3 (VV ECMO) PGD Score T12: Grade 3 (VV ECMO) PGD Score T24: Grade 3 (VA ECMO) PGD Score T48: Grade 3 (VA ECMO) PGD Score T72: Grade 3 (VA ECMO) POD #0 - Transplanted - Started on VVECMO - post op hypoxia. Hypotensive - pressors- open chest- > intra op bleeding. On Vanco and Cipro. 05/30/15 - OR- Bleeding - exrp-efj-rkmrm exploration-> Large amount of blood clots. 05/31/15 - VVECMO switched to VAECMO. Bleeding -> Large amount of blood products. Start ATG.-> to a total of 3 doses. 06/01/15 - Vascular consult -> LUE ischemia-> Start heparin 06/02/15 - Attempt to wean from ECMO. 06/03/15 - VA ECMO weaned. VVECMO initiated. Chest washout at bedside. 06/08/15 - Chest closure. Re- opened @ bedside overnight 06/15/15 - ECMO decannulated. 06/17/15 - Bronch : Removal of thick secretions 06/28/15 - TCT trial started. 07/01/15 - MMF increased to 750 mg BID. Stop Kepra - No seizures on EEG. 07/07/15 - Worsening of R effusion - No TAP. Plastic consult for R hand injured due to propofol infiltration. 07/10/15 - Airway -> Mild to moderate amount of mucus. Airway normal. Debridement of necrotic ulcer on decubitus ulcer - sacrum and coccyx aerea. 07/11/15 - Abdominal distention - start trial of Reglan 07/13/15 - Therapeutic paracentesis -> 2000 mL . MMF held due to diarrhea. C.diff -> Neg. 07/16/15 - Bronch - A0B0 - Anastomosis healing well. 07/20/15 - Downsize trach. Transferred to J82. 07/26/15 - Add Imuran 25 mg daily - pt not tolerating MMF. 07/29/15 - D/C Corpak 07/30/15 - C/o nausea. D/C to M80. 08/04/15 - GES-> Normal rate of gastric emptying. 07/13/15 - D/c for M80 to home HOSPITAL ADMIT 10/23-: Admitted from OPD with decreased PFT and fevers. CXR notable for RLL PNA. Started on empiric IV steroid pulse followed by taper. FK held due to high levels. Restarted on 0.5 BID at discharge. Transitioned to oral levaquin for 14 days and discharged in stable condition. Blood cultures + MSSA - treated with Linezolid 600mg BID for 7 days. Last Bronchoscopy: 10/11/18: AXBX, biopsies show foci of partial obliteration of vascular structures and extensive granulomatous inflammation in the vascular santana. 07/02/18: A0BX Will defer surveillance bronchs due to anticoagulation. 3 month is due on 08/28/15 07/16/15 - A0B0 - Anastomosis healing well. 07/10/15 - Airway -> Mild to Moderate amount of mucus. Normal airway DSA: 06/25/24: PENDING 12/13/23: Donor specific HLA antibody to allelic DP3 (DPB1*03:01, DPA1*01:03) was detected MFI values appear to be stable. 09/26/23: Donor specific HLA antibody to allelic DP3 (DPB1*03:01, DPA1*01:03) was detected. MFI values appear to be stable. 08/29/23: Donor specific HLA antibody to allelic DP3 (DPB1*03:01, DPA1*01:03) was detected . MFI values appear to be stable. 07/31/23: Donor specific HLA antibody to DP3 was detected. 05/02/23: No Donor specific HLA antibody was detected 01/03/23: No Donor specific HLA antibody was detected 08/16/22: No Donor specific HLA antibody was detected 06/24/22: No Donor specific HLA antibody was detected 02/16/22: No Donor specific HLA antibody was detected 07/20/21: No Donor specific HLA antibody was detected 11/10/20: No Donor specific HLA antibody was detected 03/28/19: No Donor specific HLA antibody was detected 11/08/18: No Donor specific HLA antibody was detected 10/23/18: No Donor specific HLA antibody was detected 07/02/18: No Donor specific HLA antibody was detected 11/09/17: No Donor specific HLA antibody was detected 07/27/17: No Donor specific HLA antibody was detected 04/11/17: No Donor specific HLA antibody was detected 11/14/16: No Donor specific HLA antibody was detected 09/01/16: No Donor specific HLA antibody was detected 12/17/15: No Donor specific HLA antibody was detected 07/27/15: No Donor specific HLA antibody was detected 07/02/15: No Donor specific HLA antibody was detected 06/15/15: No Donor specific HLA antibody was detected Allergies: Nickel; Pollen; Cefzil [Cefprozil] Current Outpatient Medications Medication Sig escitalopram oxalate (LEXAPRO) 10 mg tablet Take 1.5 tablets by mouth once daily. sulfamethoxazole-trimethoprim (BACTRIM) 400-80 mg per tablet Take 2 tablets by mouth three times a week. gabapentin (NEURONTIN) 300 mg capsule TAKE 2 CAPSULES BY MOUTH AT BREAKFAST AND NOON AND 3 CAPSULES AT BEDTIME. tacrolimus IR (PROGRAF) 1 mg capsule Take 1 capsule by mouth two times a day. propranolol (INDERAL) 40 mg tablet Take 1 tablet by mouth three times a day. ferrous sulfate 325 mg (65 mg iron) tablet Take 1 tablet by mouth once daily. buPROPion XL 450 mg Tb24 Take 1 tablet by mouth once daily. azaTHIOprine (IMURAN) 50 mg tablet Take 1 tablet by mouth once daily. tacrolimus IR (PROGRAF) 0.5 mg capsule Take 1 capsule by mouth every morning. fluticasone (FLONASE) 50 mcg/actuation nasal spray Use 2 Sprays in each nostril as needed. ergocalciferol 50,000 unit capsule (VITAMIN D2, DRISDOL) Take 1 capsule by mouth one time a week. warfarin (COUMADIN) 5 mg tablet 5mg every day except 7.5mg on Saturdays pantoprazole DR (PROTONIX) 40 mg tablet Take 1 tablet by mouth two times a day. azithromycin (ZITHROMAX Z-ARMINDA) 250 mg tablet Take 1 tablet by mouth every Monday, Monday, and Monday. predniSONE (DELTASONE) 5 mg tablet Take 1 tablet by mouth once daily. montelukast (SINGULAIR) 10 mg tablet take 1 tablet by mouth once daily at bedtime warfarin (COUMADIN) 7.5 mg tablet 7.5mg four days a week, 5mg three days a week atorvastatin (LIPITOR) 20 mg tablet Take 1 tablet by mouth once daily valGANciclovir (VALCYTE) 450 mg tablet Take 2 tablets by mouth once daily. albuterol HFA (PROVENTIL HFA, VENTOLIN HFA) 90 mcg/actuation inhaler Inhale 2 Puffs as instructed every 6 hours as needed for wheezing/shortness of breath. ondansetron (ZOFRAN) 4 mg tablet Take 1 tablet by mouth every 12 hours as needed. calcium carbonate (CALCIUM 500) 500 mg calcium (1,250 mg) tablet 2000 mg daily levocetirizine (XYZAL) 5 mg tablet Take 1 tablet by mouth once daily. BIPAP Supplies, suitable mask per pt preference, chin strap, head gear, humidity, heated tubing, filters, lifetime supplies. G47.33 ABHIJIT BIPAP IPAP max 16, EPAP min 5 with PS 4-6 cmH2O, suitable mask per pt preference, chin strap, head gear, humidity, tubing, lifetime supplies. G47.33 ABHIJIT MULTIVIT-MINERALS/FOLIC ACID (WOMEN'S MULTIVITAMIN GUMMIES ORAL) Take by mouth once daily. magnesium oxide (MAGOX) 400 mg tablet Take 1 tablet by mouth twice daily. cyanocobalamin (VITAMIN B-12) 1,000 mcg tab Take 1 tablet by mouth once daily. BIOTIN ORAL Take by mouth. MELATONIN ORAL Take by mouth. folic acid 1 mg tablet Take 1 tablet by mouth once daily. oseltamivir (TAMIFLU) 75 mg capsule Take 1 capsule by mouth two times a day for 10 days. Tamiflu emergency Rx. Take upon onset of influenza symptoms and get tested as soon as possible. No current facility-administered medications for this visit. Interval History: Patient seen for a 4 month follow up. Patient continues to follow with transplant psychiatry and saw Dr. Zaman on 03/20/24, has no follow up scheduled at this time. Patient presents ambulatory and on room air. Patient fell last week while walking backward and tripped on garage door threshold, landed on butt. Did not hit head. Patient went to the ED on 02/28 due to scrapping bilateral toes in pool with skin flapping and bleed. Saw Truck Cleaner yesterday who recommended staying out of pool until heals. Using her usual leg braces. Endorses cough with occasional white sputum, notices wheezing when lying down. Denies SOB at rest. Some WIN. Afebrile. Home spirometry not checked recently. PFTs today decreased 7% since last visit, FEV1 1.51 from 1.73. BP not being checked at home. BP today 138/96 and HR 73. Taking propanolol 40mg TID. Denies chest pain, palpitations. Occasional LE edema. Continues with occasional dizziness. Appetite is good. Weight is down 1lbs since last visit, Body mass index is 47.98 Moved in with parents and eating better. Denies nausea or vomiting. Endorses acid reflux in the morning or eating certain foods. Moving bowels daily, occasional loose stool. Sleeping a lot during the day and approximately 6 hours a night. Takes occasional Melatonin prn. Pt has not been wearing bipap recently, but will try to wear more often. Patient has been working with a Therapist locally since June 2017, and has been following with Dr. Zaman at [facility]. Patient had been using bilateral leg braces for neuropathy- continues to use. Patient no longer following with pain clinic or neuro and continues on gabapentin. ID: CMV Donor Pos/ Recipient Neg. EBV Donor Pos/ Recipient Pos. Currently on Valcyte 900mg Daily which is now completed. On Bactrim SS on Monday and Fridays. REVIEW OF SYSTEMS GENERAL: 1 lb weight loss, no malaise or fevers HEENT: Negative for frequent or significant headaches, No changes in hearing or vision, no nose bleeds or other nasal problems NECK: Negative for lumps, goiter, pain and significant neck swelling RESPIRATORY: Negative for hemoptysis, wheezing, COPD, + cough, WIN CARDIOVASCULAR: Negative for chest pain, leg swelling, hypertension, CHF or palpitations GI: No nausea, vomiting, or diarrhea : No history of dysuria, frequency or incontinence MUSCULOSKELETAL: Negative for joint pain or swelling, back pain or muscle pain SKIN: Negative for lesions, rash, and itching PSYCH: Negative for sleep disturbance, mood disorder and recent psychosocial stressors HEMATOLOGY/LYMPHOLOGY: Negative for prolonged bleeding, bruising easily or swollen nodes ENDOCRINE: Negative for cold or heat intolerance, polyuria, polydipsia and goiter NEURO: No history of headaches, syncope, paralysis, seizures or tremors PATIENT TRANSPLANT KARNOFSKY INDEX AND LANSKY SCALE 80% - Normal activity with effort: some symptoms of disease. 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 Medical Envelope 11/12/20, 12/03/20, 05/26/21, 01/27/22 bivalent 06/28/22, 01/03/23, 09/26/23, 03/06/24, 06/14/24 Prevnar 13: 11/17/21 Pneumovax: 03/05/2018 Shingrix: #1 #2 Health Maintenance: Pap: 07/2020 WNL, 11/23/23 Negative for intraepithelial lesion or malignancy. Mammogram: no d/t age COLONOSCOPY: Not done due to age BMD: 08/29/23 will need next visit IMPRESSION: THE LOWEST Z-SCORE IS -0.6 IN THE LEFT HIP 1) DIAGNOSIS (based on BMD alone): WITHIN THE EXPECTED RANGE FOR AGE Bone Health: 12/22/22 NEEDS Based on normal BMD and mechanism of fall, treatment is not recommended. Will continue annual monitoring. Optimize calcium and vitamin D. Calcium 1200 to 1500 mg daily recommended- if cannot achieve this through diet, then supplement recommended in divided doses. Continue vitamin D. Weight bearing exercise as tolerated recommended. Fall precautions discussed. Repeat bmd on same machine as prior after 02/28/2023. DERM: 03/18/21 - RTC 3-4 months for lesion on left breast. 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 She will in the meantime stay on Adcirca and Tracleer. She will in the meantime have IV diuresis in the hospital and even consider paracentesis to remove ascites. She will continue to follow with Coumadin to keep her INR between 2 - 3. She will return to see us after hospital discharge. Bone Team - 2018 PRE - GERD TESTING: ESOPHAGEAL MONOMETRY:too ill GASTRIC EMPTYIN04/22/15 IMPRESSION: EVIDENCE OF NORMAL RATE OF GASTRIC EMPTYING OF SOLID MEAL. PH PROBE: too ill POST- GERD TESTING: EGD 05/16/18: Interpretation / Findings Normal study. SI is negative for cough 09/18. GES 08/04/15 --> Normal rate of gastric emptying PH probe 10/15/15 IMPRESSION: Normal high resolution esophageal manometry Esophageal Manometry 10/14/15 [place] Score Channel 1 Normal ? 14.72 (95th percentile) 1.0 Procedure Description PH probe 10/2015 OFF Protonix 40 mg once a day for 7 days Interpretation / Findings Normal study. No symptoms reported. Repeat Ph Probe [id number]: Procedure Description off protonix 40 mg , tums 7 days Interpretation / Findings Normal study. SI is negative for cough 09/18. EGD with Gomez 09/25/18: Interpretation / Findings Normal study, however, evidence of acid reflux in upright position on Day 1 only. SI shows negative correlation to Heartburn: 0/1 and Regur/32. Pulmonary Function Test: [id number] FVC (L) 2.21 2.91 3.78 4.66 58 FEV1 (L) 1.51 2.45 3.19 3.90 47 OVZ94-67 (L/sec) 0.79 2.34 3.66 5.19 21 Time (sec) 5.91 Date 03/06/24 FVC (L) 2.40 2.91 3.77 4.65 63 FEV1 (L) 1.73 2.45 3.19 3.89 54 SAH09-40 (L/sec) 1.16 2.35 3.66 5.19 31 Time (sec) 7.28 Date 11/30/23 FVC 2.36 2.91 3.77 4.65 62 FEV1 1.64 2.45 3.19 3.90 51 LVE88-81 (L/sec) 0.94 2.36 3.67 5.20 25 Time (sec) 6.57 Date 09/26/23 FVC 2.44 2.91 3.77 4.65 64 FEV1 1.63 2.45 3.20 3.90 50 VZZ76-61 (L/sec) 0.79 2.37 3.68 5.21 21 Time (sec) 6.61 Date 08/29/23 FVC (L) 2.33 2.91 3.77 4.65 61 FEV1 (L) 1.58 2.46 3.20 3.90 49 ASF35-68 (L/sec) 0.91 2.37 3.68 5.21 24 Time (sec) 8.99 Date 05/02/23 FVC (L) 2.43 2.91 3.77 4.65 64 FEV1 (L) 1.74 2.46 3.20 3.91 54 BPK89-80 (L/sec) 1.11 2.38 3.70 5.22 30 Time (sec) 8.47 Date 01/03/23 FVC (L) 2.63 3.21 4.01 4.84 65 FEV1 (L) 1.76 2.71 3.38 4.03 52 GYV18-63 (L/sec) 0.85 2.40 3.71 5.24 22 Time (sec) 7.91 Date 08/17/22 FVC 4.01 3.21 4.85 2.55 63 FEV1 3.39 2.72 4.04 1.86 54 ZWK98-11 3.73 2.41 5.25 1.20 32 Time 7.16 Date 06/28/22 FVC 3.96 3.17 4.79 2.48 62 FEV1 3.35 2.69 3.99 1.74 51 ZOR57-81 3.70 2.40 5.22 1.03 27 Time 9.50 Date 02/17/22 FVC 2.71 3.17 3.97 4.79 68.3 FEV1 1.95 2.70 3.36 4.00 58.2 LVF05-03 1.25 2.41 3.72 5.23 33.6 FET 13.76 Date 11/17/21 FVC 2.53 3.17 3.97 4.79 63.9 FEV1 1.87 2.70 3.36 4.00 55.5 SDK31-08% L/s 1.33 2.42 3.73 5.24 35.5 ATR236% sec 8.09 DLCO_SBml/(min*m15.85 19.16 25.66 32.16 61.8 DLCOcSBml/(min*m15.95 19.16 25.66 32.16 62.2 Date [id number] FVC 2.79 3.17 3.97 4.79 70.3 FEV1 2.01 2.70 3.37 4.01 59.8 OJB62-84 1.31 2.43 3.74 5.26 35.1 TOL622 9.66 Date 621588 FVC 2.83 3.17 3.97 4.80 71.2 FEV1 2.11 2.71 3.37 4.01 62.5 SIW91-26% L/s 1.56 2.45 3.76 5.27 41.6 MVC448% sec 13.28 Date FVC 2.84 3.17 3.97 4.80 71.6 FEV1 2.07 2.71 3.37 4.02 61.4 EWE24-54% 1.44 2.46 3.77 5.28 38.2 WBX142% 12.54 Date 434879 FVC 2.61 3.17 3.97 4.80 65.8 FEV1 1.91 2.71 3.38 4.03 56.5 GLZ04-11% 1.30 2.47 3.78 5.30 34.2 FET 9.84 Date [id number] review of home spirometry for VV FVC:3.5L FEV1:1.6L Date 447825 FVC 2.48 3.18 3.97 4.80 62.5 FEV1 1.95 2.72 3.39 4.04 57.6 IDT73-23% L/s 1.84 2.50 3.81 5.33 48.1 ILK678% sec 7.47 Date 432376 FVC L 2.68 3.18 3.97 4.80 67.3 FEV1 L 2.08 2.73 3.39 4.04 61.4 LMO87-00% L/s 1.86 2.51 3.83 5.34 48.5 ELD773% sec 9.07 Date 553083 FVC 2.52 3.17 3.97 4.80 63.6 FEV1 2.02 2.73 3.39 4.04 59.6 RZY85-79 2.04 2.52 3.83 5.34 53.1 RUH905 9.60 Date 272355 FVC L 2.88 3.17 3.97 4.80 72.4 FEV1 L 2.18 2.73 3.40 4.04 64.2 WUT79-96% L/s 1.73 2.53 3.85 5.35 44.9 OMZ742% sec 14.14 Date 569328 FVC 3.93 3.21 4.65 2.74 70 FEV 1 3.37 2.76 3.98 2.16 64 F25/75 3.68 2.40 4.96 2.02 55 FET 15.31 Date 328480 FVC 3.93 3.21 4.65 1.98 50 FEV 1 3.37 2.76 3.98 1.53 45 MMEF 3.68 2.40 4.96 1.19 32 FET 8.14 Date 377150 FVC 3.93 3.21 4.65 2.88 73 FEV 1 3.37 2.76 3.98 2.12 63 F25/75 3.68 2.40 4.96 1.53 42 FET 14.01 Date 331318 FVC 3.93 3.21 4.65 2.95 75 FEV 1 3.37 2.76 3.98 2.38 71 F25/75 3.68 2.40 4.96 2.27 62 FET 13.84 Date 211707 FVC 3.93 3.21 4.65 2.64 67 FEV 1 3.37 2.76 3.98 2.15 64 F25/75 3.68 2.40 4.96 2.16 59 FET 8.39 Date 114315 FVC 4.03 3.30 4.76 2.98 74 FEV 1 3.45 2.83 4.07 2.42 70 MMEF 3.72 2.41 5.04 2.17 58 FET 8.99 Date 894827 FVC 4.03 3.30 4.76 3.04 75 FEV 1 3.45 2.83 4.07 2.43 71 F25/75 3.72 2.41 5.04 2.41 65 FET 11.30 Date 801950 FVC 4.03 3.30 4.76 3.01 75 FEV 1 3.46 2.84 4.08 2.43 70 MMEF 3.75 2.44 5.07 2.28 61 FET 12.16 Date 665106 FVC 4.03 3.30 4.76 2.99 74 FEV 1 3.46 2.84 4.08 2.43 70 MMEF 3.75 2.44 5.07 2.44 65 FET 7.12 Date 599840 FVC 4.03 3.30 4.76 2.96 73 FEV 1 3.46 2.84 4.08 2.47 71 F25/75 3.75 2.44 5.07 2.51 67 FET 8.22 Date 569739 FVC 4.03 3.29 4.76 2.88 72 FEV 1 3.47 2.85 4.09 2.44 70 F25/75 3.78 2.47 5.10 2.57 68 FET 7.83 Date 502552 FVC 4.03 3.29 4.76 2.85 71 FEV 1 3.47 2.85 4.09 2.40 69 F25/75 3.78 2.47 5.10 2.49 66 FET 10.62 Date 887061 FVC 4.03 3.29 4.76 3.00 75 FEV 1 3.47 2.85 4.09 2.51 72 F25/75 3.78 2.47 5.10 2.67 71 FET 9.03 Date 552675 FVC 4.03 3.29 4.76 2.68 67 FEV 1 3.47 2.85 4.09 2.27 65 F25/75 3.78 2.47 5.10 2.58 68 FET 7.87 Date 030923 FVC 4.03 3.29 4.76 2.64 66 FEV 1 3.49 2.86 4.11 2.20 63 F25/75 3.81 2.50 5.12 2.24 59 FET 6.82 Date 565590 FVC 4.03 3.29 4.76 2.59 64 FEV 1 3.49 2.86 4.11 2.31 66 F25/75 3.81 2.50 5.12 3.16 83 FET 5.84 Date 443471 FVC 4.03 3.29 4.76 2.51 62 FEV 1 3.49 2.86 4.11 2.24 64 F25/75 3.81 2.50 5.12 2.85 75 FET 6.63 Date 768595 FVC 4.03 3.29 4.76 2.25 56 FEV 1 3.49 2.86 4.11 1.97 56 F25/75 3.81 2.50 5.12 2.52 66 FET 7.87 Date 980774 FVC 4.03 3.29 4.76 1.81 45 FEV 1 3.49 2.86 4.11 1.68 48 F25/75 3.81 2.50 5.12 2.58 68 FET 5.55 Date 988512 FVC 4.03 3.29 4.76 1.79 45 FEV 1 3.49 2.86 4.11 1.66 48 F25/75 3.81 2.50 5.12 2.24 59 FET 5.65 Date 786602 FVC 4.03 3.29 4.76 1.78 44 FEV 1 3.49 2.86 4.11 1.64 47 F25/75 3.81 2.50 5.12 2.70 71 FET 6.03 Date 01/15/15 Pre Transplant FVC 4.02 3.29 2.61 65 FEV 1 3.50 2.88 2.16 62 F25/75 3.84 2.52 2.37 62 FET 8.23 CHEST XRAY 06/25/2024. Reviewed by Dr. Daly: Lungs and pleura: Status post bilateral lung transplant. No new focal lung consolidation is seen. No substantial pleural effusion is seen. There is no pneumothorax. Cardiomediastinal silhouette: Stable cardiomediastinal silhouette. Status post median sternotomy and tricuspid valve annuloplasty/repair. Bones and soft tissues: The vertebral bodies are well aligned and the vertebral body heights are maintained. Physical Exam: Pleasant, young female. Overweight, BMI 47.98 (stable). Not in acute distress. Not pale, icteric or cyanotic. No digital clubbing. Head: Normal. No thyromegaly, no sinus tenderness. No significant peripheral lymphadenopathy. Skin: No rash, areas of erythema or unusual skin lesions. Heart sounds: Distant. S1S2, no S3 or murmurs. Lungs: Fair air entry both lung sibley. No extra sounds. Abdomen: Soft. No areas of tenderness. No organomegaly. No ascites. No pedal edema. 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 Alert. Oriented to person, place and time. No focal deficits. ASSESSMENT: 29 year old female. 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 Has been seen in Endocrine Metabolic weight management clinic but has been unable to start either of the prescribed medications- Ozempic and Wegovy because of insurance approval issues. Stable weight since last visit. Established CLAD/TOMI. History of depression. Sees Dr. David Zaman in Transplant Psychiatry and remains on Lexapro and Bupropion. Further decline in PFTs since last study. No real change in CXR. Unchanged post transplant bilateral foot drop. Uses braces. Immunosuppression: Prednisone. Prograf. Imuran. Antimicrobial prophylaxis: Bactrim. Valcyte. Labs from 06/24/24: WBC 8.46. Hgb/HCT 15.2/46.1. Platelets 253,000. PT INR 2.8. Alb 3.9. AST 26. ALT 30. Glu 80. BUN 15. Cr 0.93. K 4.1. Mg 1.6. FK506 7.5. Cholesterol 139. Triglycerides 79. LDL 76. PLAN: Encouraged to exercise and to continue efforts to lose weight. To continue present immunosuppression and to repeat labs at next clinic visit. We discussed further decline in lung function in the setting of established CLAD/TOMI. Will arrange bronchoscopy with BAL and transbronchial biopsies to exclude reversible cause of lung function decline like ACR. Patient is on coumadin which she will need to stop and bridge with Lovenox 110 mg BID. She will hold lovenox 24 hours before procedure. To return to clinic in 6 weeks. Jeni Daly M.D Staff Physician documented in this encounter [facility] 06-25-2024 History of Presen t illness Narrative Radiology Service Progress Note PATIENT NAME: Yvonne Stapleton DATE OF SERVICE: June 25, 2024 TIME: 11:25 AM PATIENT IDENTITY VERIFICATION COMPLETED USING TWO (2) IDENTIFIERS: Name and Date of confirmed by patient verbally. FALL SCREENING: Has the patient had 2 falls in the last year or 1 fall with injury or currently using an Ambulatory Assistive Device (Walker, Cane, Wheelchair, Crutches, etc.)? No PATIENT GENDER DATA: Female. status: : No status: NO. PATIENT RELEVANT IMPLANT DATA REVIEWED: Not Applicable PATIENT PRESENTS WITH AN IMPLANTABLE OR ATTACHED MACHINE LOADER: No RADIOLOGY DEPARTMENT: General X-ray: Exam(s) Completed: Chest X-Ray PERIPHERAL IV DATA: Not applicable SIGNED BY: RT Raoul(R) June 25, 2024 11:25 AM documented in this encounter [facility] 06-25-2024 Telephone encounter Note Transplants: 05/29/2015 (Lung) Lab Results Component Value Date FK506 7.5 06/24/2024 CREAT 0.93 06/24/2024 K 4.1 06/24/2024 WBC 8.46 06/24/2024 ABSNEUT 5.38 06/24/2024 CMVCPY Not detected 06/24/2024 Disp Refills Start End tacrolimus IR (PROGRAF) 0.5 mg capsule Sig: Take 1 capsule by mouth every morning. tacrolimus IR (PROGRAF) 1 mg capsule Sig: Take 1 capsule by mouth two times a day. [facility] 06-12-2024 Telephone encounter Note The following approved medication requests have been transmitted electronically. Requested Prescriptions Pending Prescriptions Disp Refills sulfamethoxazole-trimethoprim (BACTRIM) 400-80 mg per tablet 36 tablet 11 Sig: Take 2 tablets by mouth three times a week. gabapentin (NEURONTIN) 300 mg capsule 600 capsule 0 Sig: TAKE 2 CAPSULES BY MOUTH AT BREAKFAST AND NOON AND 3 CAPSULES AT BEDTIME. Matt Díaz RN [facility] 06-12-2024 Miscellaneous Notes The following approved medication requests have been transmitted electronically. Requested Prescriptions Pending Prescriptions Disp Refills sulfamethoxazole-trimethoprim (BACTRIM) 400-80 mg per tablet 36 tablet 11 Sig: Take 2 tablets by mouth three times a week. gabapentin (NEURONTIN) 300 mg capsule 600 capsule 0 Sig: TAKE 2 CAPSULES BY MOUTH AT BREAKFAST AND NOON AND 3 CAPSULES AT BEDTIME. Matt Díaz RN documented in this encounter [facility] 05-30-2024 Telephone encounter Note A couple days ago patient developed a sore throat. She feels crackling in her lungs. Denies new SOB. Cough with thick sputum- unsure of color. Afebrile. Advised pt to take a covid test. She does not have one, I advised her she can take a home covid test or go straight to Urgent care who can swab her for viruses. Pt will keep us updated on outcome/ results. [facility] 05-30-2024 Miscellaneous Notes A couple days ago patient developed a sore throat. She feels crackling in her lungs. Denies new SOB. Cough with thick sputum- unsure of color. Afebrile. Advised pt to take a covid test. She does not have one, I advised her she can take a home covid test or go straight to Urgent care who can swab her for viruses. Pt will keep us updated on outcome/ results. Patient called in, requesting a return call from resident care coordinator in regards to she is not feeling well, symptoms are: sore throat, runny nose, chest congestion, and coughing. Aby Pablo documented in this encounter [facility] 05-30-2024 Telephone encounter Note Patient called in, requesting a return call from resident care coordinator in regards to she is not feeling well, symptoms are: sore throat, runny nose, chest congestion, and coughing. Aby Pablo [facility] 04-03-2024 Telephone encounter Note Addressed at appointment [facility] 04-03-2024 Miscellaneous Notes Addressed at appointment Patient calling her Neurologist has left [facility] and she is almost out of the Propanolol 40 mg rx. Patient is asking if PCP could take over the rx and give her refills please. Patient phone number is [phone] if needed. Pending rx to send to [facility] [place] 2[facility] pharmacy. Please advise The patient has been identified by name and date of : Yes Caregiver verified no other encounters exist for this prescription request: Yes Caregiver confirmed with patient/requestor that no other refills are due, in the near future, with this provider at this time: Yes The last office visit in the department: 01/16/2024 Does the patient have a future office visit with this provider/department: Yes 01/17/2025 Requested Prescriptions Pending Prescriptions Disp Refills propranolol (INDERAL) 40 mg tablet 90 tablet 2 Sig: Take 1 tablet by mouth three times a day. Emilia Mathis LPN March 28, 2024 4:35 PM documented in this encounter [facility] 04-03-2024 History of Presen t illness Narrative Images from the original note were not included. This note was created using NoteWriter. Subjective Yvonne Stapleton is a 29 year old female. Patient presents with: Established Patient: Medication follow up SUBJECTIVE: Yvonne Stapleton is a 29 year old year old lady here today for follow up appointment for review of medical conditions. Propranolol--neurology consult with Dr. Liseth Ward to see if can help with foot or hand issues. She had gone for consult in case might be something for foot drop. Sounds like really was for tremor. Reviewed note--was for tremor. Ran out of [place]. Back in 2019 was able to lose weight through 2020 with exercising (treadmill) and living at home and eating better. Living on her own so not able to make healthy meals. Ate more prepared foods and [id number]. Working with psychiatrist and counseling. BIPAP--working on using routinely. Falls asleep before remembers was to put it on. PAST MEDICAL HISTORY Diagnosis Date Cardiac insufficiency following cardiac surgery Chronic thromboembolic pulmonary hypertension (HCC) 2012 Lung replaced by transplant ([facility]) 07/15/2015 Bilateral Lung Tx on 05/29/15 for CTEPH IS: per ALD Bronch 07/16/15: LRSG Grade A0 B0 Lung transplant recipient ([facility]) Migraine Obesity, Class II, BMI 35-39.9 03/05/2018 ABHIJIT (obstructive sleep apnea) AHI 9.6 01/21/2019 Pulmonary embolism (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) Right heart failure, NYHA class 4 ([facility]) Seizure ([facility]) 06/22/2015 Current Outpatient Medications Medication Sig buPROPion XL 450 mg Tb24 Take 1 tablet by mouth once daily. azaTHIOprine (IMURAN) 50 mg tablet Take 1 tablet by mouth once daily. gabapentin (NEURONTIN) 300 mg capsule TAKE 2 CAPSULES BY MOUTH AT BREAKFAST AND NOON AND 3 CAPSULES AT BEDTIME. tacrolimus IR (PROGRAF) 1 mg capsule Take 1 capsule by mouth two times a day. tacrolimus IR (PROGRAF) 0.5 mg capsule Take 1 capsule by mouth every morning. escitalopram oxalate (LEXAPRO) 10 mg tablet Take 1.5 tablets by mouth once daily. fluticasone (FLONASE) 50 mcg/actuation nasal spray Use 2 Sprays in each nostril as needed. ergocalciferol 50,000 unit capsule (VITAMIN D2, DRISDOL) Take 1 capsule by mouth one time a week. warfarin (COUMADIN) 5 mg tablet 5mg every day except 7.5mg on Saturdays propranolol (INDERAL) 40 mg tablet Take 1 tablet by mouth three times a day. pantoprazole DR (PROTONIX) 40 mg tablet Take 1 tablet by mouth two times a day. azithromycin (ZITHROMAX Z-ARMINDA) 250 mg tablet Take 1 tablet by mouth every Monday, Monday, and Monday. predniSONE (DELTASONE) 5 mg tablet Take 1 tablet by mouth once daily. montelukast (SINGULAIR) 10 mg tablet take 1 tablet by mouth once daily at bedtime warfarin (COUMADIN) 7.5 mg tablet 7.5mg four days a week, 5mg three days a week atorvastatin (LIPITOR) 20 mg tablet Take 1 tablet by mouth once daily valGANciclovir (VALCYTE) 450 mg tablet Take 2 tablets by mouth once daily. sulfamethoxazole-trimethoprim (BACTRIM) 400-80 mg per tablet Take 2 tablets by mouth three times a week. albuterol HFA (PROVENTIL HFA, VENTOLIN HFA) 90 mcg/actuation inhaler Inhale 2 Puffs as instructed every 6 hours as needed for wheezing/shortness of breath. ondansetron (ZOFRAN) 4 mg tablet Take 1 tablet by mouth every 12 hours as needed. ferrous sulfate 325 mg (65 mg iron) tablet Take 1 tablet by mouth once daily. calcium carbonate (CALCIUM 500) 500 mg calcium (1,250 mg) tablet 2000 mg daily levocetirizine (XYZAL) 5 mg tablet Take 1 tablet by mouth once daily. BIPAP Supplies, suitable mask per pt preference, chin strap, head gear, humidity, heated tubing, filters, lifetime supplies. G47.33 ABHIJIT BIPAP IPAP max 16, EPAP min 5 with PS 4-6 cmH2O, suitable mask per pt preference, chin strap, head gear, humidity, tubing, lifetime supplies. G47.33 ABHIJIT MULTIVIT-MINERALS/FOLIC ACID (WOMEN'S MULTIVITAMIN GUMMIES ORAL) Take by mouth once daily. magnesium oxide (MAGOX) 400 mg tablet Take 1 tablet by mouth twice daily. cyanocobalamin (VITAMIN B-12) 1,000 mcg tab Take 1 tablet by mouth once daily. BIOTIN ORAL Take by mouth. MELATONIN ORAL Take by mouth. folic acid 1 mg tablet Take 1 tablet by mouth once daily. oseltamivir (TAMIFLU) 75 mg capsule Take 1 capsule by mouth two times a day. Tamiflu emergency Rx. Take upon onset of influenza symptoms and get tested as soon as possible. (Patient not taking: Reported on 04/03/2024) Insulin [place], Disposable, (BD ULTRAFINE III MINI PEN) 31 gauge x 3/16 1 Each one time a week. (Patient not taking: Reported on 04/03/2024) No current facility-administered medications for this visit. Review of Systems Objective LMP 01/01/2024 (Approximate) Last 5 Encounter Wt Readings: Date: Wt: 03/06/2024 133.5 kg (294 lb 5.1 oz) 02/29/2024 131.5 kg (290 lb) 01/16/2024 133.4 kg (294 lb) 11/30/2023 131 kg (288 lb 12.8 oz) 11/23/2023 132.5 kg (292 lb) No waist measurement recorded Estimated body mass index is 48.16 kg/m as calculated from the following: Height as of 03/06/24: 166.5 cm (5' 5.55 ). Weight as of 03/06/24: 133.5 kg (294 lb 5.1 oz). Last 5 Encounter BP Readings: Date: BP: 03/06/2024 106/75 02/29/2024 124/79 01/16/2024 120/62 11/30/2023 114/80 11/23/2023 124/76 Physical Exam Constitutional: Appearance: Normal appearance. She is obese. HENT: Head: Normocephalic. Eyes: Conjunctiva/sclera: Conjunctivae normal. Cardiovascular: Rate and Rhythm: Normal rate and regular rhythm. Heart sounds: Normal heart sounds. Pulmonary: Effort: Pulmonary effort is normal. Breath sounds: Normal breath sounds. Musculoskeletal: Right lower leg: No edema. Left lower leg: No edema. Skin: General: Skin is warm and dry. Neurological: General: No focal deficit present. Mental Status: She is alert and oriented to person, place, and time. Psychiatric: Mood and Affect: Mood normal. Behavior: Behavior normal. Thought Content: Thought content normal. Judgment: Judgment normal. Assessment and Plan Encounter Diagnosis ICD-10-CM 1. Essential tremor G25.0 propranolol (INDERAL) 40 mg tablet Continue propranolol. Will continue to prescribe as was given by neurologist--dose adequate.Further eval and treatment as needed 2. Class 3 severe obesity due to excess calories with body mass index (BMI) of 40.0 to 44.9 in adult, unspecified whether serious comorbidity present ([facility]) E66.01 Z68.41 Get back on track with exercise and healthier diet.Reviewed prior efforts and success Above issues addressed with patient. Patient involved in shared decision making for management of medical issues. History and medications reviewed. Epic updated as needed Refills and/or prescriptions taken care of and meds adjusted as indicated after reviewed history, exam and labs. Health Maintenance reviewed. Updated record and/or ordered tests as recorded. Encouraged on efforts at healthy diet and regular exercise and adequate sleep. Needs to keep working on diet and exercise with lifestyle changes for effective weight loss as well as prevention of DM, and control of BP and lipids. Reviewed prior weights and what helped with successful weight loss in the past was living at home and exercising on treadmill 30 minutes daily in 2019 to 2020; after appointment also saw was successful in 2014 but rapid weight loss. 181 to 119 then starting gaining weight again gradually in 2015. Will work on gradually increasing activity--start with goal 20 minutes of any exercise 6 days a week--can be broken into smaller increments. When able, can increase to 30 minutes 5 days a week aerobic exercise. Try to limit processed foods like [id number], and add a protein to meals that include things like [id number]. Consider easy recipes that do not take much prep time. Lynne Chan MD documented in this encounter [facility] 03-28-2024 Telephone encounter Note Patient calling her Neurologist has left [facility] and she is almost out of the Propanolol 40 mg rx. Patient is asking if PCP could take over the rx and give her refills please. Patient phone number is [phone] if needed. Pending rx to send to [facility] [place]Note 2[facility] pharmacy. Please advise The patient has been identified by name and date of : Yes Caregiver verified no other encounters exist for this prescription request: Yes Caregiver confirmed with patient/requestor that no other refills are due, in the near future, with this provider at this time: Yes The last office visit in the department: 01/16/2024 Does the patient have a future office visit with this provider/department: Yes 01/17/2025 Requested Prescriptions Pending Prescriptions Disp Refills propranolol (INDERAL) 40 mg tablet 90 tablet 2 Sig: Take 1 tablet by mouth three times a day. Emilia Mathis LPN March 28, 2024 4:35 PM [facility] 03-21-2024 History of Presen t illness Narrative Images from the original note were not included. Chief Complaint: Peripheral neuropathy; bilateral dropfoot with blisters/wounds to great toes HPI: This 28 year old female with PMH indicated below presents for ED follow up after injuring both great toes. Patient states she was at a camp and while in the pool she scraped her great toes causing them to bled significantly (she is currently taking coumadin). She was able to control the bleeding and presented to ED on 02/29/24 for further evaluation. She was discharged with rx for topical bacitracin and instructed to follow up. Since her last visit 2 weeks ago she is applying antibiotic ointment and Band-Aids and thinks the areas have since healed. Denies noticing any signs of infections. Denies pain d/t neuropathy. Denies redness to the areas. Patient has extensive past medical history including lung transplant in 2015. She states she was in a coma postoperatively and was on ECMO for period of time. She states following this she noticed her bilateral foot drop and numbness affecting the feet and legs. She has been treated with physical therapy multiple times and wears dorsiflexory assist AFO braces in her shoes for the foot drop. She has obtained new DA-AFO braces from [facility] since her last visit and has been wearing them without issues. She was also seen by neurology on 11/09/23 and was recommended to start PT and gait training; Vit B12 was checked and WNL. Neurology dx of critical illness neuropathy and b/l foot drop. Denies other pedal complaints. PCP: Lynne Chan MD: PAST MEDICAL HISTORY Diagnosis Date Cardiac insufficiency following cardiac surgery Chronic thromboembolic pulmonary hypertension (HCC) 2012 Lung replaced by transplant (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) 06/22/2015 : Current Outpatient Medications Medication Sig buPROPion XL 450 mg Tb24 Take 1 tablet by mouth once daily. azaTHIOprine (IMURAN) 50 mg tablet Take 1 tablet by mouth once daily. gabapentin (NEURONTIN) 300 mg capsule TAKE 2 CAPSULES BY MOUTH AT BREAKFAST AND NOON AND 3 CAPSULES AT BEDTIME. tacrolimus IR (PROGRAF) 1 mg capsule Take 1 capsule by mouth two times a day. tacrolimus IR (PROGRAF) 0.5 mg capsule Take 1 capsule by mouth every morning. escitalopram oxalate (LEXAPRO) 10 mg tablet Take 1.5 tablets by mouth once daily. fluticasone (FLONASE) 50 mcg/actuation nasal spray Use 2 Sprays in each nostril as needed. ergocalciferol 50,000 unit capsule (VITAMIN D2, DRISDOL) Take 1 capsule by mouth one time a week. warfarin (COUMADIN) 5 mg tablet 5mg every day except 7.5mg on Saturdays propranolol (INDERAL) 40 mg tablet Take 1 tablet by mouth three times a day. pantoprazole DR (PROTONIX) 40 mg tablet Take 1 tablet by mouth two times a day. azithromycin (ZITHROMAX Z-ARMINDA) 250 mg tablet Take 1 tablet by mouth every Monday, Monday, and Monday. predniSONE (DELTASONE) 5 mg tablet Take 1 tablet by mouth once daily. montelukast (SINGULAIR) 10 mg tablet take 1 tablet by mouth once daily at bedtime warfarin (COUMADIN) 7.5 mg tablet 7.5mg four days a week, 5mg three days a week oseltamivir (TAMIFLU) 75 mg capsule Take 1 capsule by mouth two times a day. Tamiflu emergency Rx. Take upon onset of influenza symptoms and get tested as soon as possible. atorvastatin (LIPITOR) 20 mg tablet Take 1 tablet by mouth once daily valGANciclovir (VALCYTE) 450 mg tablet Take 2 tablets by mouth once daily. sulfamethoxazole-trimethoprim (BACTRIM) 400-80 mg per tablet Take 2 tablets by mouth three times a week. albuterol HFA (PROVENTIL HFA, VENTOLIN HFA) 90 mcg/actuation inhaler Inhale 2 Puffs as instructed every 6 hours as needed for wheezing/shortness of breath. ondansetron (ZOFRAN) 4 mg tablet Take 1 tablet by mouth every 12 hours as needed. Insulin [place], Disposable, (BD ULTRAFINE III MINI PEN) 31 gauge x 3/16 1 Each one time a week. ferrous sulfate 325 mg (65 mg iron) tablet Take 1 tablet by mouth once daily. calcium carbonate (CALCIUM 500) 500 mg calcium (1,250 mg) tablet 2000 mg daily levocetirizine (XYZAL) 5 mg tablet Take 1 tablet by mouth once daily. BIPAP Supplies, suitable mask per pt preference, chin strap, head gear, humidity, heated tubing, filters, lifetime supplies. G47.33 ABHIJIT BIPAP IPAP max 16, EPAP min 5 with PS 4-6 cmH2O, suitable mask per pt preference, chin strap, head gear, humidity, tubing, lifetime supplies. G47.33 ABHIJIT MULTIVIT-MINERALS/FOLIC ACID (WOMEN'S MULTIVITAMIN GUMMIES ORAL) Take by mouth once daily. magnesium oxide (MAGOX) 400 mg tablet Take 1 tablet by mouth twice daily. cyanocobalamin (VITAMIN B-12) 1,000 mcg tab Take 1 tablet by mouth once daily. BIOTIN ORAL Take by mouth. MELATONIN ORAL Take by mouth. folic acid 1 mg tablet Take 1 tablet by mouth once daily. No current facility-administered medications for this visit. : ALLERGIES Allergen Reactions Nickel Rash rash Pollen Other: See Comments nose runs Cefzil [Cefprozil] Hives Fentanyl Mental Status Change Patient reports anger issues Lyrica [Pregabalin] Contraindication-Medical Surgical Lack of efficacy. Pain worse and needed to go back to gabapentin Nsaids (Non-Steroid* Contraindication-Medical Surgical : PAST SURGICAL HISTORY Procedure Laterality Date BERGERON CATHETER IR IVC FILTER PLACEMENT 02/01/2013 [employer] Permanent Filter LUNG TRANSPLANT,DOUBLE 05/29/15 Annuloplasty ring PAST SURGICAL HISTORY OF 12/2016 root canal FAMILY HISTORY Problem Relation Age of Onset Headache Mother Thyroid Mother other (sarcoidosis) Mother derm Psoriasis Father Diabetes Father Headache Maternal Grandmother Thyroid Maternal Grandmother Dementia Maternal Grandmother Macular Degen Maternal Grandmother : Social History Tobacco Use Smoking status: Never Smokeless tobacco: Never Vaping Use Vaping Use: Never used Substance Use Topics Alcohol use: Yes Comment: Seldom Drug use: No REVIEW OF SYSTEMS MSK: + as noted in HPI. Physical Exam: Patient is alert and oriented x 3 in NAD. Patient is a 28 year old female who appears well developed, well nourished and with good attention to hygiene and body habitus. Temp 37.1 C (98.7 F) LMP 01/01/2024 (Approximate) Vascular: DP and PT pulses are palpable. CFT less than 3 seconds to all digits bilateral. Skin temperature is warm to warm from proximal to distal bilateral. Hair growth is noted. No edema noted. No varicosities noted. Neuro: Light touch intact bilateral. Protective sensation intact at all pedal sites via [place] Anu 5.07 monofilament bilateral. Derm: Skin texture and turgor within normal limits. Toenails normal in appearance. Webspaces 1-4 clean, dry, intact b/l. Healed abrasions to distal plantar hallux b/l. No acute signs of infection. No hyperkeratotic tissue. Musculoskeletal/Orthopaedic: General foot morphology: planus medial longitudinal arch +3/5 muscle strength Dorsiflexion, +5/5 Plantarflexion, +4/5 Inversion/Eversion bilateral ROM of the 1st MTPJ is full without pain or crepitus b/l. ROM of the MTJ/STJ is full without pain or crepitus b/l. 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 Plan: - A comprehensive history and physical examination were preformed. The patient was educated on clinical and radiographic findings, diagnosis and treatment plans. Patient state that she understands all that has been explained and all questions were answered to her apparent satisfaction. - Okay to discontinue dressing changes as the abrasions are healed today. Recommend monitoring for recurrence and/or signs of infection. - Discussed recommended preventative footcare due to patient's neuropathy including daily foot checks and avoidance of barefoot walking. - Continue WBAT in dorsiflexory assist AFO. - Continue follow up with neurology for peripheral neuropathy. - Educated patient on signs/symptoms of infection to monitor for and instructed to call the office or present to ED if noticed. Follow-up as needed. Maria C Pardo DPM, [facility] [address] [place] [address] W [email or web address] Speech recognition technology was utilized in the production of this note. documented in this encounter [facility] 03-18-2024 History of Presen t illness Narrative Images from the original note were not included. Chief Complaint: Peripheral neuropathy; bilateral dropfoot with blisters/wounds to great toes HPI: This 28 year old female with PMH indicated below presents for ED follow up after injuring both great toes. Patient states she was at a camp and while in the pool she scraped her great toes causing them to bled significantly (she is currently taking coumadin). She was able to control the bleeding and presented to ED on 02/29/24 for further evaluation. She was discharged with rx for topical bacitracin and instructed to follow up. Denies pain d/t neuropathy. Denies redness to the areas. Patient has extensive past medical history including lung transplant in 2014. She states she was in a coma postoperatively and was on ECMO for period of time. She states following this she noticed her bilateral foot drop and numbness affecting the feet and legs. She has been treated with physical therapy multiple times and wears dorsiflexory assist AFO braces in her shoes for the foot drop. She has obtained new DA-AFO braces from [facility] since her last visit and has been wearing them without issues. She was also seen by neurology on 11/09/23 and was recommended to start PT and gait training; Vit B12 was checked and WNL. Neurology dx of critical illness neuropathy and b/l foot drop. Denies other pedal complaints. PCP: Lynne Chan MD: PAST MEDICAL HISTORY Diagnosis Date Cardiac insufficiency following cardiac surgery Chronic thromboembolic pulmonary hypertension (HCC) 2012 Lung replaced by transplant ([facility]) 07/15/2015 Bilateral Lung Tx on 05/29/15 for CTEPH IS: per ALD Bronch 07/16/15: LRSG Grade A0 B0 Lung transplant recipient ([facility]) Migraine Obesity, Class II, BMI 35-39.9 03/05/2018 ABHIJIT (obstructive sleep apnea) AHI 9.6 01/21/2019 Pulmonary embolism (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) Right heart failure, NYHA class 4 ([facility]) Seizure ([facility]) 06/22/2015 : Current Outpatient Medications Medication Sig azaTHIOprine (IMURAN) 50 mg tablet Take 1 tablet by mouth once daily. gabapentin (NEURONTIN) 300 mg capsule TAKE 2 CAPSULES BY MOUTH AT BREAKFAST AND NOON AND 3 CAPSULES AT BEDTIME. tacrolimus IR (PROGRAF) 1 mg capsule Take 1 capsule by mouth two times a day. tacrolimus IR (PROGRAF) 0.5 mg capsule Take 1 capsule by mouth every morning. escitalopram oxalate (LEXAPRO) 10 mg tablet Take 1.5 tablets by mouth once daily. buPROPion XL (WELLBUTRIN XL) 300 mg 24 hr tablet Take 1 tablet by mouth once daily. fluticasone (FLONASE) 50 mcg/actuation nasal spray Use 2 Sprays in each nostril as needed. ergocalciferol 50,000 unit capsule (VITAMIN D2, DRISDOL) Take 1 capsule by mouth one time a week. warfarin (COUMADIN) 5 mg tablet 5mg every day except 7.5mg on Saturdays propranolol (INDERAL) 40 mg tablet Take 1 tablet by mouth three times a day. pantoprazole DR (PROTONIX) 40 mg tablet Take 1 tablet by mouth two times a day. azithromycin (ZITHROMAX Z-ARMINDA) 250 mg tablet Take 1 tablet by mouth every Monday, Monday, and Monday. predniSONE (DELTASONE) 5 mg tablet Take 1 tablet by mouth once daily. montelukast (SINGULAIR) 10 mg tablet take 1 tablet by mouth once daily at bedtime warfarin (COUMADIN) 7.5 mg tablet 7.5mg four days a week, 5mg three days a week oseltamivir (TAMIFLU) 75 mg capsule Take 1 capsule by mouth two times a day. Tamiflu emergency Rx. Take upon onset of influenza symptoms and get tested as soon as possible. (Patient not taking: Reported on 03/05/2024) atorvastatin (LIPITOR) 20 mg tablet Take 1 tablet by mouth once daily valGANciclovir (VALCYTE) 450 mg tablet Take 2 tablets by mouth once daily. sulfamethoxazole-trimethoprim (BACTRIM) 400-80 mg per tablet Take 2 tablets by mouth three times a week. albuterol HFA (PROVENTIL HFA, VENTOLIN HFA) 90 mcg/actuation inhaler Inhale 2 Puffs as instructed every 6 hours as needed for wheezing/shortness of breath. ondansetron (ZOFRAN) 4 mg tablet Take 1 tablet by mouth every 12 hours as needed. Insulin [place], Disposable, (BD ULTRAFINE III MINI PEN) 31 gauge x 3/16 1 Each one time a week. ferrous sulfate 325 mg (65 mg iron) tablet Take 1 tablet by mouth once daily. calcium carbonate (CALCIUM 500) 500 mg calcium (1,250 mg) tablet 2000 mg daily levocetirizine (XYZAL) 5 mg tablet Take 1 tablet by mouth once daily. BIPAP Supplies, suitable mask per pt preference, chin strap, head gear, humidity, heated tubing, filters, lifetime supplies. G47.33 ABHIJIT BIPAP IPAP max 16, EPAP min 5 with PS 4-6 cmH2O, suitable mask per pt preference, chin strap, head gear, humidity, tubing, lifetime supplies. G47.33 ABHIJIT MULTIVIT-MINERALS/FOLIC ACID (WOMEN'S MULTIVITAMIN GUMMIES ORAL) Take by mouth once daily. magnesium oxide (MAGOX) 400 mg tablet Take 1 tablet by mouth twice daily. cyanocobalamin (VITAMIN B-12) 1,000 mcg tab Take 1 tablet by mouth once daily. BIOTIN ORAL Take by mouth. MELATONIN ORAL Take by mouth. folic acid 1 mg tablet Take 1 tablet by mouth once daily. No current facility-administered medications for this visit. : ALLERGIES Allergen Reactions Nickel Rash rash Pollen Other: See Comments nose runs Cefzil [Cefprozil] Hives Fentanyl Mental Status Change Patient reports anger issues Lyrica [Pregabalin] Contraindication-Medical Surgical Lack of efficacy. Pain worse and needed to go back to gabapentin Nsaids (Non-Steroid* Contraindication-Medical Surgical : PAST SURGICAL HISTORY Procedure Laterality Date BERGERON CATHETER IR IVC FILTER PLACEMENT 02/01/2013 Vena Tech Permanent Filter LUNG TRANSPLANT,DOUBLE 05/29/15 Annuloplasty ring PAST SURGICAL HISTORY OF 12/2016 root canal FAMILY HISTORY Problem Relation Age of Onset Headache Mother Thyroid Mother other (sarcoidosis) Mother derm Psoriasis Father Diabetes Father Headache Maternal Grandmother Thyroid Maternal Grandmother Dementia Maternal Grandmother Macular Degen Maternal Grandmother : Social History Tobacco Use Smoking status: Never Smokeless tobacco: Never Vaping Use Vaping Use: Never used Substance Use Topics Alcohol use: Yes Comment: Seldom Drug use: No REVIEW OF SYSTEMS MSK: + as noted in HPI. Physical Exam: Patient is alert and oriented x 3 in NAD. Patient is a 28 year old female who appears well developed, well nourished and with good attention to hygiene and body habitus. Temp 36.6 C (97.8 F) LMP 01/01/2024 (Approximate) Vascular: DP and PT pulses are palpable. CFT less than 3 seconds to all digits bilateral. Skin temperature is warm to warm from proximal to distal bilateral. Hair growth is noted. No edema noted. No varicosities noted. Neuro: Light touch intact bilateral. Protective sensation intact at all pedal sites via [place] Anu 5.07 monofilament bilateral. Derm: Skin texture and turgor within normal limits. Toenails normal in appearance. Webspaces 1-4 clean, dry, intact b/l. + superficial abrasions to distal plantar hallux b/l. There is no drainage or acute signs of infection. No hyperkeratotic tissue. Musculoskeletal/Orthopaedic: General foot morphology: planus medial longitudinal arch +3/5 muscle strength Dorsiflexion, +5/5 Plantarflexion, +4/5 Inversion/Eversion bilateral ROM of the 1st MTPJ is full without pain or crepitus b/l. ROM of the MTJ/STJ is full without pain or crepitus b/l. 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 Plan: - A comprehensive history and physical examination were preformed. The patient was educated on clinical and radiographic findings, diagnosis and treatment plans. Patient state that she understands all that has been explained and all questions were answered to her apparent satisfaction. - Recommend continuing daily dressing changes to b/l hallux abrasions with bacitracin ointment and DSD until healed. - Continue WBAT in dorsiflexory assist AFO. - Continue follow up with neurology for peripheral neuropathy. - Educated patient on signs/symptoms of infection to monitor for and instructed to call the office or present to ED if noticed. Follow-up in 2 weeks for wound check. Maria C Pardo DPM, [facility] [address] [place] [address] W [email or web address] Speech recognition technology was utilized in the production of this note. 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 Ro. 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 Lymph nodes with focal granulomatous lymphadenitis. COMMENT Multiple Movat stains were evaluated. The etiology of the foci of granulomatous vasculitis is uncertain; a drug reaction is a consideration. Dr. Joellen Cruz from the cardiovascular pathology service has also reviewed this case. Teo Carter M.D POST TRANSPLANT EVENTS CMV: DONOR+ / RECIPIENT- EBV: DONOR+ / RECIPIENT+ PGD SCORE: PGD Score T0: Grade 3 (VV ECMO) PGD Score T12: Grade 3 (VV ECMO) PGD Score T24: Grade 3 (VA ECMO) PGD Score T48: Grade 3 (VA ECMO) PGD Score T72: Grade 3 (VA ECMO) POD #0 - Transplanted - Started on VVECMO - post op hypoxia. Hypotensive - pressors- open chest- > intra op bleeding. On Vanco and Cipro. 05/30/15 - OR- Bleeding - gwby-fih-aldkv exploration-> Large amount of blood clots. 05/31/15 - VVECMO switched to VAECMO. Bleeding -> Large amount of blood products. Start ATG.-> to a total of 3 doses. 06/01/15 - Vascular consult -> LUE ischemia-> Start heparin 06/02/15 - Attempt to wean from ECMO. 06/03/15 - VA ECMO weaned. VVECMO initiated. Chest washout at bedside. 06/08/15 - Chest closure. Re- opened @ bedside overnight 06/15/15 - ECMO decannulated. 06/17/15 - Bronch : Removal of thick secretions 06/28/15 - TCT trial started. 07/01/15 - MMF increased to 750 mg BID. Stop Kepra - No seizures on EEG. 07/07/15 - Worsening of R effusion - No TAP. Plastic consult for R hand injured due to propofol infiltration. 07/10/15 - Airway -> Mild to moderate amount of mucus. Airway normal. Debridement of necrotic ulcer on decubitus ulcer - sacrum and coccyx aerea. 07/11/15 - Abdominal distention - start trial of Reglan 07/13/15 - Therapeutic paracentesis -> 2000 mL . MMF held due to diarrhea. C.diff -> Neg. 07/16/15 - Bronch - A0B0 - Anastomosis healing well. 07/20/15 - Downsize trach. Transferred to J82. 07/26/15 - Add Imuran 25 mg daily - pt not tolerating MMF. 07/29/15 - D/C Corpak 07/30/15 - C/o nausea. D/C to M80. 08/04/15 - GES-> Normal rate of gastric emptying. 07/13/15 - D/c for M80 to home HOSPITAL ADMIT 10/23-: Admitted from OPD with decreased PFT and fevers. CXR notable for RLL PNA. Started on empiric IV steroid pulse followed by taper. FK held due to high levels. Restarted on 0.5 BID at discharge. Transitioned to oral levaquin for 14 days and discharged in stable condition. Blood cultures + MSSA - treated with Linezolid 600mg BID for 7 days. Last Bronchoscopy: 10/11/18: AXBX, biopsies show foci of partial obliteration of vascular structures and extensive granulomatous inflammation in the vascular santana. 07/02/18: A0BX Will defer surveillance bronchs due to anticoagulation. 3 month is due on 08/28/15 07/16/15 - A0B0 - Anastomosis healing well. 07/10/15 - Airway -> Mild to Moderate amount of mucus. Normal airway DSA: 12/13/23: Donor specific HLA antibody to allelic DP3 (DPB1*03:01, DPA1*01:03) was detected MFI values appear to be stable. 09/26/23: Donor specific HLA antibody to allelic DP3 (DPB1*03:01, DPA1*01:03) was detected. MFI values appear to be stable. 08/29/23: Donor specific HLA antibody to allelic DP3 (DPB1*03:01, DPA1*01:03) was detected . MFI values appear to be stable. 07/31/23: Donor specific HLA antibody to DP3 was detected. 05/02/23: No Donor specific HLA antibody was detected 01/03/23: No Donor specific HLA antibody was detected 08/16/22: No Donor specific HLA antibody was detected 06/24/22: No Donor specific HLA antibody was detected 02/16/22: No Donor specific HLA antibody was detected 07/20/21: No Donor specific HLA antibody was detected 11/10/20: No Donor specific HLA antibody was detected 03/28/19: No Donor specific HLA antibody was detected 11/08/18: No Donor specific HLA antibody was detected 10/23/18: No Donor specific HLA antibody was detected 07/02/18: No Donor specific HLA antibody was detected 11/09/17: No Donor specific HLA antibody was detected 07/27/17: No Donor specific HLA antibody was detected 04/11/17: No Donor specific HLA antibody was detected 11/14/16: No Donor specific HLA antibody was detected 09/01/16: No Donor specific HLA antibody was detected 12/17/15: No Donor specific HLA antibody was detected 07/27/15: No Donor specific HLA antibody was detected 07/02/15: No Donor specific HLA antibody was detected 06/15/15: No Donor specific HLA antibody was detected Allergies: Nickel; Pollen; Cefzil [Cefprozil] Current Outpatient Medications Medication Sig bacitracin 500 unit/gram ointment Apply 1 application to affected area two times a day for 7 days. gabapentin (NEURONTIN) 300 mg capsule TAKE 2 CAPSULES BY MOUTH AT BREAKFAST AND NOON AND 3 CAPSULES AT BEDTIME. tacrolimus IR (PROGRAF) 1 mg capsule Take 1 capsule by mouth two times a day. tacrolimus IR (PROGRAF) 0.5 mg capsule Take 1 capsule by mouth every morning. escitalopram oxalate (LEXAPRO) 10 mg tablet Take 1.5 tablets by mouth once daily. buPROPion XL (WELLBUTRIN XL) 300 mg 24 hr tablet Take 1 tablet by mouth once daily. fluticasone (FLONASE) 50 mcg/actuation nasal spray Use 2 Sprays in each nostril as needed. ergocalciferol 50,000 unit capsule (VITAMIN D2, DRISDOL) Take 1 capsule by mouth one time a week. warfarin (COUMADIN) 5 mg tablet 5mg every day except 7.5mg on Saturdays propranolol (INDERAL) 40 mg tablet Take 1 tablet by mouth three times a day. pantoprazole DR (PROTONIX) 40 mg tablet Take 1 tablet by mouth two times a day. azithromycin (ZITHROMAX Z-ARMINDA) 250 mg tablet Take 1 tablet by mouth every Monday, Monday, and Monday. predniSONE (DELTASONE) 5 mg tablet Take 1 tablet by mouth once daily. montelukast (SINGULAIR) 10 mg tablet take 1 tablet by mouth once daily at bedtime warfarin (COUMADIN) 7.5 mg tablet 7.5mg four days a week, 5mg three days a week atorvastatin (LIPITOR) 20 mg tablet Take 1 tablet by mouth once daily valGANciclovir (VALCYTE) 450 mg tablet Take 2 tablets by mouth once daily. sulfamethoxazole-trimethoprim (BACTRIM) 400-80 mg per tablet Take 2 tablets by mouth three times a week. albuterol HFA (PROVENTIL HFA, VENTOLIN HFA) 90 mcg/actuation inhaler Inhale 2 Puffs as instructed every 6 hours as needed for wheezing/shortness of breath. ondansetron (ZOFRAN) 4 mg tablet Take 1 tablet by mouth every 12 hours as needed. ferrous sulfate 325 mg (65 mg iron) tablet Take 1 tablet by mouth once daily. calcium carbonate (CALCIUM 500) 500 mg calcium (1,250 mg) tablet 2000 mg daily levocetirizine (XYZAL) 5 mg tablet Take 1 tablet by mouth once daily. BIPAP Supplies, suitable mask per pt preference, chin strap, head gear, humidity, heated tubing, filters, lifetime supplies. G47.33 ABHIJIT BIPAP IPAP max 16, EPAP min 5 with PS 4-6 cmH2O, suitable mask per pt preference, chin strap, head gear, humidity, tubing, lifetime supplies. G47.33 ABHIJIT MULTIVIT-MINERALS/FOLIC ACID (WOMEN'S MULTIVITAMIN GUMMIES ORAL) Take by mouth once daily. magnesium oxide (MAGOX) 400 mg tablet Take 1 tablet by mouth twice daily. cyanocobalamin (VITAMIN B-12) 1,000 mcg tab Take 1 tablet by mouth once daily. BIOTIN ORAL Take by mouth. MELATONIN ORAL Take by mouth. folic acid 1 mg tablet Take 1 tablet by mouth once daily. azaTHIOprine (IMURAN) 50 mg tablet Take 1 tablet by mouth once daily. oseltamivir (TAMIFLU) 75 mg capsule Take 1 capsule by mouth two times a day. Tamiflu emergency Rx. Take upon onset of influenza symptoms and get tested as soon as possible. (Patient not taking: Reported on 03/05/2024) Insulin [place], Disposable, (BD ULTRAFINE III MINI PEN) 31 gauge x 3/16 1 Each one time a week. No current facility-administered medications for this visit. Interval History: Patient seen for a 3 month follow up. Patient continues to follow with transplant psychiatry and next appointment is 03/20/24. She fell and hurt her left leg in October, no fracture, however still has resolving hematoma. Following with ortho and prescribed tramadol- no longer taking. Had follow up with ortho on 12/26/23 and MRI shows hematoma is resolving. Exercises were recommended to patient. Patient presents ambulatory and on room air. Patient went to the ED on 02/28 due to scrapping bilateral goes in pool with skin flapping and bleed. Saw Truck Cleaner yesterday who recommended staying out of pool until heals. Using her usual leg braces. Endorses cough with occasional white sputum when she wakes up in the morning. Denies wheezing or SOB at rest. Some WIN. Afebrile. Home spirometry not checked recently. PFTs today increased 3% since last visit, FEV1 1.73. BP not being checked at home. BP today 106/75 and HR 76. Denies chest pain, palpitations, or LE edema. No falls since last visit. Continues with occasional dizziness. Appetite is good. Weight is increased 6 lbs since last visit, Body mass index is 45.25. Denies nausea or vomiting. Endorses acid reflux in the morning or eating certain foods. Moving bowels daily, occasional loose stool. Patient has been working with a Therapist locally since June 2017, and has been following with Dr. Zaman at [facility]. Sleep is okay, approximately 6 hours a night. Takes occasional Melatonin prn. Pt wears bipap 3-4 nights a week. Patient had been using bilateral leg braces for neuropathy- continues to use. Patient no longer following with pain clinic or neuro and continues on gabapentin. ID: CMV Donor Pos/ Recipient Neg. EBV Donor Pos/ Recipient Pos. Currently on Valcyte 900mg Daily which is now completed. On Bactrim SS on Monday and Fridays. REVIEW OF SYSTEMS GENERAL: 6 lb weight gain, no malaise or fevers HEENT: Negative for frequent or significant headaches, No changes in hearing or vision, no nose bleeds or other nasal problems NECK: Negative for lumps, goiter, pain and significant neck swelling RESPIRATORY: Negative for hemoptysis, wheezing, COPD, + cough, WIN CARDIOVASCULAR: Negative for chest pain, leg swelling, hypertension, CHF or palpitations GI: No nausea, vomiting, or diarrhea : No history of dysuria, frequency or incontinence MUSCULOSKELETAL: Negative for joint pain or swelling, back pain or muscle pain SKIN: Negative for lesions, rash, and itching PSYCH: Negative for sleep disturbance, mood disorder and recent psychosocial stressors HEMATOLOGY/LYMPHOLOGY: Negative for prolonged bleeding, bruising easily or swollen nodes ENDOCRINE: Negative for cold or heat intolerance, polyuria, polydipsia and goiter NEURO: No history of headaches, syncope, paralysis, seizures or tremors PATIENT TRANSPLANT KARNOFSKY INDEX AND LANSKY SCALE 80% - Normal activity with effort: some symptoms of disease. 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 Pfizer 11/12/20, 12/03/20, 05/26/21, 01/27/22 bivalent 06/28/22, 01/03/23, 09/26/23, 03/06/24 Prevnar 13: 11/17/21 Pneumovax: 03/05/2018 Shingrix: #1 #2 Health Maintenance: Pap: 07/2020 WNL, 11/23/23 Negative for intraepithelial lesion or malignancy. Mammogram: no d/t age COLONOSCOPY: Not done due to age BMD: 08/29/23 IMPRESSION: THE LOWEST Z-SCORE IS -0.6 IN THE LEFT HIP 1) DIAGNOSIS (based on BMD alone): WITHIN THE EXPECTED RANGE FOR AGE Bone Health: 12/22/22 Based on normal BMD and mechanism of fall, treatment is not recommended. Will continue annual monitoring. Optimize calcium and vitamin D. Calcium 1200 to 1500 mg daily recommended- if cannot achieve this through diet, then supplement recommended in divided doses. Continue vitamin D. Weight bearing exercise as tolerated recommended. Fall precautions discussed. Repeat bmd on same machine as prior after 02/28/2023. DERM: 03/18/21 - RTC 3-4 months for lesion on left breast. 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 She will in the meantime stay on Adcirca and Tracleer. She will in the meantime have IV diuresis in the hospital and even consider paracentesis to remove ascites. She will continue to follow with Coumadin to keep her INR between 2 - 3. She will return to see us after hospital discharge. Bone Team - 2018 PRE - GERD TESTING: ESOPHAGEAL MONOMETRY:too ill GASTRIC EMPTYIN04/22/15 IMPRESSION: EVIDENCE OF NORMAL RATE OF GASTRIC EMPTYING OF SOLID MEAL. PH PROBE: too ill POST- GERD TESTING: EGD 05/16/18: Interpretation / Findings Normal study. SI is negative for cough 8. GES 08/04/15 --> Normal rate of gastric emptying PH probe 10/15/15 IMPRESSION: Normal high resolution esophageal manometry Esophageal Manometry 10/14/15 [place] Score Channel 1 Normal ? 14.72 (95th percentile) 1.0 Procedure Description PH probe 10/2015 OFF Protonix 40 mg once a day for 7 days Interpretation / Findings Normal study. No symptoms reported. Repeat Ph Probe [id number]: Procedure Description off protonix 40 mg , tums 7 days Interpretation / Findings Normal study. SI is negative for cough 09/18. EGD with Gomez 09/25/18: Interpretation / Findings Normal study, however, evidence of acid reflux in upright position on Day 1 only. SI shows negative correlation to Heartburn: 0/1 and Regur/32. Pulmonary Function Test: Date 03/06/24 FVC (L) 2.40 2.91 3.77 4.65 63 FEV1 (L) 1.73 2.45 3.19 3.89 54 FTN75-24 (L/sec) 1.16 2.35 3.66 5.19 31 Time (sec) 7.28 Date 11/30/23 FVC 2.36 2.91 3.77 4.65 62 FEV1 1.64 2.45 3.19 3.90 51 AIS13-48 (L/sec) 0.94 2.36 3.67 5.20 25 Time (sec) 6.57 Date 09/26/23 FVC 2.44 2.91 3.77 4.65 64 FEV1 1.63 2.45 3.20 3.90 50 FYU20-12 (L/sec) 0.79 2.37 3.68 5.21 21 Time (sec) 6.61 Date 08/29/23 FVC (L) 2.33 2.91 3.77 4.65 61 FEV1 (L) 1.58 2.46 3.20 3.90 49 HAL18-16 (L/sec) 0.91 2.37 3.68 5.21 24 Time (sec) 8.99 Date 05/02/23 FVC (L) 2.43 2.91 3.77 4.65 64 FEV1 (L) 1.74 2.46 3.20 3.91 54 AZG85-40 (L/sec) 1.11 2.38 3.70 5.22 30 Time (sec) 8.47 Date 01/03/23 FVC (L) 2.63 3.21 4.01 4.84 65 FEV1 (L) 1.76 2.71 3.38 4.03 52 SJC70-32 (L/sec) 0.85 2.40 3.71 5.24 22 Time (sec) 7.91 Date 08/17/22 FVC 4.01 3.21 4.85 2.55 63 FEV1 3.39 2.72 4.04 1.86 54 ZCT25-55 3.73 2.41 5.25 1.20 32 Time 7.16 Date 06/28/22 FVC 3.96 3.17 4.79 2.48 62 FEV1 3.35 2.69 3.99 1.74 51 VVS84-72 3.70 2.40 5.22 1.03 27 Time 9.50 Date 02/17/22 FVC 2.71 3.17 3.97 4.79 68.3 FEV1 1.95 2.70 3.36 4.00 58.2 QZL88-06 1.25 2.41 3.72 5.23 33.6 FET 13.76 Date 11/17/21 FVC 2.53 3.17 3.97 4.79 63.9 FEV1 1.87 2.70 3.36 4.00 55.5 TCZ35-33% L/s 1.33 2.42 3.73 5.24 35.5 PQA556% sec 8.09 DLCO_SBml/(min*m15.85 19.16 25.66 32.16 61.8 DLCOcSBml/(min*m15.95 19.16 25.66 32.16 62.2 Date [id number] FVC 2.79 3.17 3.97 4.79 70.3 FEV1 2.01 2.70 3.37 4.01 59.8 CRD01-11 1.31 2.43 3.74 5.26 35.1 JBC368 9.66 Date [id number] FVC 2.83 3.17 3.97 4.80 71.2 FEV1 2.11 2.71 3.37 4.01 62.5 SBC87-34% L/s 1.56 2.45 3.76 5.27 41.6 QKL060% sec 13.28 Date 11/12/ FVC 2.84 3.17 3.97 4.80 71.6 FEV1 2.07 2.71 3.37 4.02 61.4 SMC54-11% 1.44 2.46 3.77 5.28 38.2 SYF503% 12.54 Date [id number] FVC 2.61 3.17 3.97 4.80 65.8 FEV1 1.91 2.71 3.38 4.03 56.5 RQO32-31% 1.30 2.47 3.78 5.30 34.2 FET 9.84 Date [id number] review of home spirometry for VV FVC:3.5L FEV1:1.6L Date FVC 2.48 3.18 3.97 4.80 62.5 FEV1 1.95 2.72 3.39 4.04 57.6 RHB01-26% L/s 1.84 2.50 3.81 5.33 48.1 HMX301% sec 7.47 Date [id number] FVC L 2.68 3.18 3.97 4.80 67.3 FEV1 L 2.08 2.73 3.39 4.04 61.4 LAX92-11% L/s 1.86 2.51 3.83 5.34 48.5 XTT771% sec 9.07 Date [id number] FVC 2.52 3.17 3.97 4.80 63.6 FEV1 2.02 2.73 3.39 4.04 59.6 KOA10-52 2.04 2.52 3.83 5.34 53.1 EKH960 9.60 Date [id number] FVC L 2.88 3.17 3.97 4.80 72.4 FEV1 L 2.18 2.73 3.40 4.04 64.2 IBO84-05% L/s 1.73 2.53 3.85 5.35 44.9 THF454% sec 14.14 Date 161600 FVC 3.93 3.21 4.65 2.74 70 FEV 1 3.37 2.76 3.98 2.16 64 F25/75 3.68 2.40 4.96 2.02 55 FET 15.31 Date [id number] FVC 3.93 3.21 4.65 1.98 50 FEV 1 3.37 2.76 3.98 1.53 45 MMEF 3.68 2.40 4.96 1.19 32 FET 8.14 Date 444305 FVC 3.93 3.21 4.65 2.88 73 FEV 1 3.37 2.76 3.98 2.12 63 F25/75 3.68 2.40 4.96 1.53 42 FET 14.01 Date [id number] FVC 3.93 3.21 4.65 2.95 75 FEV 1 3.37 2.76 3.98 2.38 71 F25/75 3.68 2.40 4.96 2.27 62 FET 13.84 Date 889136 FVC 3.93 3.21 4.65 2.64 67 FEV 1 3.37 2.76 3.98 2.15 64 F25/75 3.68 2.40 4.96 2.16 59 FET 8.39 Date [id number] FVC 4.03 3.30 4.76 2.98 74 FEV 1 3.45 2.83 4.07 2.42 70 MMEF 3.72 2.41 5.04 2.17 58 FET 8.99 Date [id number] FVC 4.03 3.30 4.76 3.04 75 FEV 1 3.45 2.83 4.07 2.43 71 F25/75 3.72 2.41 5.04 2.41 65 FET 11.30 Date [id number] FVC 4.03 3.30 4.76 3.01 75 FEV 1 3.46 2.84 4.08 2.43 70 MMEF 3.75 2.44 5.07 2.28 61 FET 12.16 Date [id number] FVC 4.03 3.30 4.76 2.99 74 FEV 1 3.46 2.84 4.08 2.43 70 MMEF 3.75 2.44 5.07 2.44 65 FET 7.12 Date 089255 FVC 4.03 3.30 4.76 2.96 73 FEV 1 3.46 2.84 4.08 2.47 71 F25/75 3.75 2.44 5.07 2.51 67 FET 8.22 Date [id number] FVC 4.03 3.29 4.76 2.88 72 FEV 1 3.47 2.85 4.09 2.44 70 F25/75 3.78 2.47 5.10 2.57 68 FET 7.83 Date 324886 FVC 4.03 3.29 4.76 2.85 71 FEV 1 3.47 2.85 4.09 2.40 69 F25/75 3.78 2.47 5.10 2.49 66 FET 10.62 Date 663573 FVC 4.03 3.29 4.76 3.00 75 FEV 1 3.47 2.85 4.09 2.51 72 F25/75 3.78 2.47 5.10 2.67 71 FET 9.03 Date 669082 FVC 4.03 3.29 4.76 2.68 67 FEV 1 3.47 2.85 4.09 2.27 65 F25/75 3.78 2.47 5.10 2.58 68 FET 7.87 Date 358753 FVC 4.03 3.29 4.76 2.64 66 FEV 1 3.49 2.86 4.11 2.20 63 F25/75 3.81 2.50 5.12 2.24 59 FET 6.82 Date 863626 FVC 4.03 3.29 4.76 2.59 64 FEV 1 3.49 2.86 4.11 2.31 66 F25/75 3.81 2.50 5.12 3.16 83 FET 5.84 Date 615403 FVC 4.03 3.29 4.76 2.51 62 FEV 1 3.49 2.86 4.11 2.24 64 F25/75 3.81 2.50 5.12 2.85 75 FET 6.63 Date 671967 FVC 4.03 3.29 4.76 2.25 56 FEV 1 3.49 2.86 4.11 1.97 56 F25/75 3.81 2.50 5.12 2.52 66 FET 7.87 Date 174720 FVC 4.03 3.29 4.76 1.81 45 FEV 1 3.49 2.86 4.11 1.68 48 F25/75 3.81 2.50 5.12 2.58 68 FET 5.55 Date [id number] FVC 4.03 3.29 4.76 1.79 45 FEV 1 3.49 2.86 4.11 1.66 48 F25/75 3.81 2.50 5.12 2.24 59 FET 5.65 Date 937497 FVC 4.03 3.29 4.76 1.78 44 FEV 1 3.49 2.86 4.11 1.64 47 F25/75 3.81 2.50 5.12 2.70 71 FET 6.03 Date 01/15/15 Pre Transplant FVC 4.02 3.29 2.61 65 FEV 1 3.50 2.88 2.16 62 F25/75 3.84 2.52 2.37 62 FET 8.23 CHEST XRAY 03/06/2024. Reviewed by Dr. Daly: Lungs and pleura: Again noted are changes of bilateral lung transplants. Mild increase of inflammatory airway thickening in the mid and lower lungs. This could be secondary to the inflammatory airway changes or mild degree of chronic rejection. No consolidation or mass lesion. No pleural effusion or pneumothorax. Cardiomediastinal silhouette: Unchanged. Bones and soft tissues: Status post median sternotomy with normally aligned sternal wires. Physical Exam: Pleasant, young female. Overweight, BMI 48.16. Not in acute distress. Not pale, icteric or cyanotic. No digital clubbing. Head: Normal. No thyromegaly, no sinus tenderness. No significant peripheral lymphadenopathy. Skin: No rash, areas of erythema or unusual skin lesions. Heart sounds: Distant. S1S2, no S3 or murmurs. Lungs: Good air entry both lung sibley. No extra sounds. Abdomen: Soft. No areas of tenderness. No organomegaly. No ascites. Minimal pedal edema. 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 Alert. Oriented to person, place and time. No focal deficits. ASSESSMENT: 29 year old female. 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 Has been seen in Endocrine Metabolic weight management clinic but has been unable to start either of the prescribed medications- Ozempic and Wegovy because of insurance approval issues. Slight weight gain since last visit. Established CLAD/TOMI. History of depression. Sees Dr. David Zaman in Transplant Psychiatry and remains on Lexapro and Bupropion. Slight improvement in PFTs. No change in CXR. Post transplant bilateral foot drop. Was seen at [facility] in [place]. Was examined and fitted for a new set of braces she now uses. Since last visit, patient had bleeding and avulsion of the toes which required bandaging and being seen by a Truck Cleaner. Immunosuppression: Prednisone. Prograf. Imuran. Antimicrobial prophylaxis: Bactrim. Valcyte. Labs from 03/05/24: WBC 9.03. Hgb/HCT 15.2/44.9. Platelets 225,000. Alb 4.1. AST 31. ALT 31. Glu 76. BUN 19. Cr 0.96. K 4.1 FK506 5.7. CMV DNA- Negative. EBV DNA- Negative. PLAN: Encouraged to continue to exercise as tolerated. Given COVID 19 vaccine in clinic today. Had extensive discussion about natural history of CLAD/TOMI with patient and her mother. To increase her Prograf dose to 1.5/1 and to repeat all labs in 2 weeks. To return to clinic in early June. Jeni Daly M.D Staff Physician documented in this encounter [facility] 03-06-2024 History of Presen t illness Narrative PULM FUNCTION: Provider: Jeni Daly MD Spirometry: 1 System: MC8 - [id number] documented in this encounter [facility] 03-06-2024 History of Presen t illness Narrative Radiology Service Progress Note PATIENT NAME: Hannah Stapleton DATE OF SERVICE: March 06, 2024 TIME: 8:41 AM PATIENT IDENTITY VERIFICATION COMPLETED USING TWO (2) IDENTIFIERS: Name and Date of confirmed by patient verbally. FALL SCREENING: Has the patient had 2 falls in the last year or 1 fall with injury or currently using an Ambulatory Assistive Device (Walker, Cane, Wheelchair, Crutches, etc.)? No PATIENT GENDER DATA: Female. status: : No status: NO. PATIENT RELEVANT IMPLANT DATA REVIEWED: Not Applicable PATIENT PRESENTS WITH AN IMPLANTABLE OR ATTACHED MACHINE LOADER: No RADIOLOGY DEPARTMENT: General X-ray: Exam(s) Completed: Chest X-Ray PERIPHERAL IV DATA: Not applicable SIGNED BY: RT Leora(R) March 06, 2024 8:41 AM documented in this encounter [facility] 02-16-2024 Telephone encounter Note The following approved medication requests have been transmitted electronically. Requested Prescriptions Pending Prescriptions Disp Refills gabapentin (NEURONTIN) 300 mg capsule [Pharmacy Med Name: Gabapentin 300 MG Oral Capsule] 600 capsule 0 Sig: TAKE 2 CAPSULES BY MOUTH AT BREAKFAST AND NOON AND 3 CAPSULES AT BEDTIME. Matt Díaz RN [facility] 02-16-2024 Miscellaneous Notes The following approved medication requests have been transmitted electronically. Requested Prescriptions Pending Prescriptions Disp Refills gabapentin (NEURONTIN) 300 mg capsule [Pharmacy Med Name: Gabapentin 300 MG Oral Capsule] 600 capsule 0 Sig: TAKE 2 CAPSULES BY MOUTH AT BREAKFAST AND NOON AND 3 CAPSULES AT BEDTIME. Matt Díaz RN documented in this encounter [facility] 02-13-2024 Telephone encounter Note Spoke to patient, she is currently taking tacro 2/. She will decrease to 1.5/1 and repeat labs on 02/25. The following approved medication requests have been transmitted electronically. Requested Prescriptions Pending Prescriptions Disp Refills tacrolimus IR (PROGRAF) 1 mg capsule 180 capsule 3 Sig: Take 1 capsule by mouth two times a day. tacrolimus IR (PROGRAF) 0.5 mg capsule 90 capsule 3 Sig: Take 1 capsule by mouth every morning. Jade Scott RN [facility] 02-13-2024 Miscellaneous Notes Spoke to patient, she is currently taking tacro 10/12. She will decrease to 1.5/1 and repeat labs on 02/25. The following approved medication requests have been transmitted electronically. Requested Prescriptions Pending Prescriptions Disp Refills tacrolimus IR (PROGRAF) 1 mg capsule 180 capsule 3 Sig: Take 1 capsule by mouth two times a day. tacrolimus IR (PROGRAF) 0.5 mg capsule 90 capsule 3 Sig: Take 1 capsule by mouth every morning. Jade Scott RN Tacrolimus level was supratherapeutic at 12.6. Current dose is 1/1. Would recommend decreasing dose to 1/0.5 . Recheck labs in 2 weeks. Please verify that this is a true trough prior to dose adjustment; level drawn at 0930 Gayathri Norris RPh Creatinine Date Value Ref Range Status 02/12/2024 1.06 (H) 0.58 - 0.96 mg/dL Final 12/12/2023 0.99 (H) 0.58 - 0.96 mg/dL Final 11/30/2023 0.92 0.58 - 0.96 mg/dL Final 11/20/2023 0.95 0.58 - 0.96 mg/dL Final Tacrolimus/FK506 (ng/mL) Date Value 02/12/2024 12.6 12/12/2023 8.7 11/30/2023 5.5 10/04/2021 9.7 08/09/2021 8.6 07/26/2021 7.5 Transplants: 05/29/2015 (Lung) Lab Results Component Value Date FK506 12.6 02/12/2024 CREAT 1.06 (H) 02/12/2024 K 4.4 02/12/2024 WBC 10.08 02/12/2024 ABSNEUT 6.85 02/12/2024 CMVCPY Not detected 02/12/2024 Estimated Creatinine Clearance: 110.9 mL/min (A) (based on SCr of 1.06 mg/dL (H)). tacrolimus IR (PROGRAF) 1 mg capsule Sig: TAKE ONE CAPSULE BY MOUTH EVERY MORNING AND ONE CAPSULE EVERY EVENING. documented in this encounter [facility] 02-13-2024 Telephone encounter Note Tacrolimus level was supratherapeutic at 12.6. Current dose is 1/1. Would recommend decreasing dose to 1/0.5 . Recheck labs in 2 weeks. Please verify that this is a true trough prior to dose adjustment; level drawn at 0930 Gayathri Norris RPh Creatinine Date Value Ref Range Status 02/12/2024 1.06 (H) 0.58 - 0.96 mg/dL Final 12/12/2023 0.99 (H) 0.58 - 0.96 mg/dL Final 11/30/2023 0.92 0.58 - 0.96 mg/dL Final 11/20/2023 0.95 0.58 - 0.96 mg/dL Final Tacrolimus/FK506 (ng/mL) Date Value 02/12/2024 12.6 12/12/2023 8.7 11/30/2023 5.5 10/04/2021 9.7 08/09/2021 8.6 07/26/2021 7.5 [facility] Work Phone: 02-13-2024 Telephone encounter Note Transplants: 05/29/2015 (Lung) Lab Results Component Value Date FK506 12.6 02/12/2024 CREAT 1.06 (H) 02/12/2024 K 4.4 02/12/2024 WBC 10.08 02/12/2024 ABSNEUT 6.85 02/12/2024 CMVCPY Not detected 02/12/2024 Estimated Creatinine Clearance: 110.9 mL/min (A) (based on SCr of 1.06 mg/dL (H)). tacrolimus IR (PROGRAF) 1 mg capsule Sig: TAKE ONE CAPSULE BY MOUTH EVERY MORNING AND ONE CAPSULE EVERY EVENING. [facility] 02-09-2024 Telephone encounter Note Patient has read My Chart message. [facility] 02-09-2024 Miscellaneous Notes Patient has read My Chart message. See MyChart reply documented in this encounter [facility] 02-04-2024 Telephone encounter Note See MyChart reply [facility] 01-16-2024 History of Presen t illness Narrative This note was created using [employer]. Subjective Hannah Stapleton is a 28 year old female. HISTORY Hannah Stapleton is a 28 year old lady here for yearly exam and follow up appointment. Needed parking placard RX letter. Continues to use BiPAP nightly and benefits from use. Does not follow with sleep medicine routinely. Was seen in [place]. PSG was done 2018. DME supplier [facility]. Stable on current meds. WW had helped before but hard to keep writing things down. Another time tried a program with meds but seemed to cause vaginal bleeding (DUB). Exercise has helped (walking). Broken foot interfered. 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 warfarin (COUMADIN) 5 mg tablet 5mg every day except 7.5mg on Saturdays tacrolimus IR (PROGRAF) 1 mg capsule Take 2 capsules by mouth every morning AND 1 capsule every evening. propranolol (INDERAL) 40 mg tablet Take 1 tablet by mouth three times a day. escitalopram oxalate (LEXAPRO) 10 mg tablet Take 1.5 tablets by mouth once daily. pantoprazole DR (PROTONIX) 40 mg tablet Take 1 tablet by mouth two times a day. azithromycin (ZITHROMAX Z-ARMINDA) 250 mg tablet Take 1 tablet by mouth every Monday, Monday, and Monday. predniSONE (DELTASONE) 5 mg tablet Take 1 tablet by mouth once daily. montelukast (SINGULAIR) 10 mg tablet take 1 tablet by mouth once daily at bedtime warfarin (COUMADIN) 7.5 mg tablet 7.5mg four days a week, 5mg three days a week oseltamivir (TAMIFLU) 75 mg capsule Take 1 capsule by mouth two times a day. Tamiflu emergency Rx. Take upon onset of influenza symptoms and get tested as soon as possible. atorvastatin (LIPITOR) 20 mg tablet Take 1 tablet by mouth once daily valGANciclovir (VALCYTE) 450 mg tablet Take 2 tablets by mouth once daily. sulfamethoxazole-trimethoprim (BACTRIM) 400-80 mg per tablet Take 2 tablets by mouth three times a week. gabapentin (NEURONTIN) 300 mg capsule TAKE 2 CAPSULES BY MOUTH WITH BREAKFAST, 2 CAPS AT NOON AND 3 CAPS AT BEDTIME albuterol HFA (PROVENTIL HFA, VENTOLIN HFA) 90 mcg/actuation inhaler Inhale 2 Puffs as instructed every 6 hours as needed for wheezing/shortness of breath. azaTHIOprine (IMURAN) 50 mg tablet Take 1 tablet by mouth once daily. ondansetron (ZOFRAN) 4 mg tablet Take 1 tablet by mouth every 12 hours as needed. Insulin [place], Disposable, (BD ULTRAFINE III MINI PEN) 31 gauge x 3/16 1 Each one time a week. ferrous sulfate 325 mg (65 mg iron) tablet Take 1 tablet by mouth once daily. calcium carbonate (CALCIUM 500) 500 mg calcium (1,250 mg) tablet 2000 mg daily levocetirizine (XYZAL) 5 mg tablet Take 1 tablet by mouth once daily. BIPAP Supplies, suitable mask per pt preference, chin strap, head gear, humidity, heated tubing, filters, lifetime supplies. G47.33 ABHIJIT BIPAP IPAP max 16, EPAP min 5 with PS 4-6 cmH2O, suitable mask per pt preference, chin strap, head gear, humidity, tubing, lifetime supplies. G47.33 ABHIJIT MULTIVIT-MINERALS/FOLIC ACID (WOMEN'S MULTIVITAMIN GUMMIES ORAL) Take by mouth once daily. magnesium oxide (MAGOX) 400 mg tablet Take 1 tablet by mouth twice daily. cyanocobalamin (VITAMIN B-12) 1,000 mcg tab Take 1 tablet by mouth once daily. BIOTIN ORAL Take by mouth. MELATONIN ORAL Take by mouth. folic acid 1 mg tablet Take 1 tablet by mouth once daily. buPROPion XL (WELLBUTRIN XL) 300 mg 24 hr tablet Take 1 tablet by mouth once daily. fluticasone (FLONASE) 50 mcg/actuation nasal spray Use 2 Sprays in each nostril as needed. No current facility-administered medications for this visit. ALLERGIES Allergen Reactions Nickel Rash rash Pollen Other: See Comments nose runs Cefzil [Cefprozil] Hives Fentanyl Mental Status Change Patient reports anger issues Lyrica [Pregabalin] Contraindication-Medical Surgical Lack of efficacy. Pain worse and needed to go back to gabapentin Nsaids (Non-Steroid* Contraindication-Medical Surgical FAMILY HISTORY Problem Relation Age of Onset Headache Mother Thyroid Mother other (sarcoidosis) Mother derm Psoriasis Father Diabetes Father Headache Maternal Grandmother Thyroid Maternal Grandmother Dementia Maternal Grandmother Macular Degen Maternal Grandmother Social History Tobacco Use Smoking status: Never Smokeless tobacco: Never Vaping Use Vaping Use: Never used Substance Use Topics Alcohol use: Yes Comment: Seldom Drug use: No Review of Systems Objective BP 120/62 Pulse 71 Temp 36.1 C (96.9 F) Resp 18 Ht 170.5 cm (5' 7.13 ) Wt 133.4 kg (294 lb) LMP 01/01/2024 (Approximate) SpO2 97% BMI 45.87 kg/m Last 5 Encounter Wt Readings: Date: Wt: 01/16/2024 133.4 kg (294 lb) 11/30/2023 131 kg (288 lb 12.8 oz) 11/23/2023 132.5 kg (292 lb) 11/09/2023 129.7 kg (286 lb) 11/06/2023 129.3 kg (285 lb) No waist measurement recorded Estimated body mass index is 45.87 kg/m as calculated from the following: Height as of this encounter: 170.5 cm (5' 7.13 ). Weight as of this encounter: 133.4 kg (294 lb). Last 5 Encounter BP Readings: Date: BP: 01/16/2024 120/62 11/30/2023 114/80 11/23/2023 124/76 11/09/2023 117/81 11/06/2023 142/90 Physical Exam Vitals reviewed. Constitutional: Appearance: She is well-developed. HENT: Head: Normocephalic and atraumatic. Right Ear: External ear normal. Left Ear: External ear normal. Nose: Nose normal. Eyes: Conjunctiva/sclera: Conjunctivae normal. Neck: Thyroid: No thyromegaly. Vascular: No carotid bruit. Cardiovascular: Rate and Rhythm: Normal rate and regular rhythm. Pulses: Normal pulses. Heart sounds: Normal heart sounds. No murmur heard. No friction rub. No gallop. Pulmonary: Effort: Pulmonary effort is normal. Breath sounds: Normal breath sounds. Abdominal: General: Bowel sounds are normal. There is no distension. Palpations: Abdomen is soft. There is no mass. Tenderness: There is no abdominal tenderness. Musculoskeletal: General: No deformity. Normal range of motion. Right lower leg: No edema. Left lower leg: No edema. Lymphadenopathy: Cervical: No cervical adenopathy. Skin: General: Skin is warm and dry. Coloration: Skin is not jaundiced or pale. Findings: No rash. Neurological: General: No focal deficit present. Mental Status: She is alert and oriented to person, place, and time. Cranial Nerves: No cranial nerve deficit. Sensory: No sensory deficit. Motor: No abnormal muscle tone. Coordination: Coordination normal. Deep Tendon Reflexes: Reflexes normal. Psychiatric: Attention and Perception: Attention and perception normal. Mood and Affect: Mood and affect normal. Speech: Speech normal. Behavior: Behavior normal. Thought Content: Thought content normal. Cognition and Memory: Cognition normal. Judgment: Judgment normal. Gets labs for transplant medicine. Assessment and Plan Encounter Diagnosis ICD-10-CM 1. Recurrent major depressive disorder, in full remission ([facility]) F33.42 buPROPion XL (WELLBUTRIN XL) 300 mg 24 hr tablet Stable on current meds 2. ABHIJIT (obstructive sleep apnea) AHI 9.6 G47.33 Stable on BiPAP and uses nightly, benefit from use 3. Foot drop, bilateral M21.371 M21.372 Got new braces last month--doing well. Prior brace for 8 years and had microcracks. RX letter for parking placard given 4. Impaired mobility Z74.09 Needs parking placard letter 5. Obesity, Class III, BMI >= 40 E66.01 Working on regular exercise. Already eating healthier. WW had helped but hard to sustain logging meals 6. 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) Z94.2 Patient here for yearly exam and follow up. Above issues addressed with patient. Patient involved in shared decision making for management of medical issues. History and medications reviewed. Epic updated as needed Refills taken care of and meds adjusted as indicated after reviewed history, exam and labs. Needs to keep working on diet and exercise with lifestyle changes for effective weight loss as well as prevention of DM, and control of BP and lipids. Lynne Chan MD documented in this encounter [facility] 12-29-2023 Miscellaneous Notes The following approved medication requests have been transmitted electronically. Requested Prescriptions Pending Prescriptions Disp Refills ergocalciferol 50,000 unit capsule (VITAMIN D2, DRISDOL) 13 capsule 3 Sig: Take 1 capsule by mouth one time a week. Neeta Harrison, LESLY documented in this encounter [facility] 12-26-2023 History of Presen t illness Narrative Up left leg and to go over the results of the MRI. She has a resolving hematoma and muscular atrophy. There is no meniscus tear. She is improved. We discussed treatment options and could consider therapy. She has had therapy in the past. She can do the exercises on her own. Assessment hematoma left knee. I counseled her on her activities and we will see her back as needed. Chandra Gaitan MD documented in this encounter [facility] 12-13-2023 Miscellaneous Notes Tacrolimus level was therapeutic at 8.7. Current dose is 2/1. Would recommend no change to current dose. Recheck labs in 6 weeks. Gayathri Norris RPh Transplants: 05/29/2015 (Lung) Lab Results Component Value Date FK506 8.7 12/12/2023 CREAT 0.99 (H) 12/12/2023 K 4.1 12/12/2023 WBC 10.17 12/12/2023 ABSNEUT 7.01 12/12/2023 CMVCPY Not detected 12/12/2023 Estimated Creatinine Clearance: 115.4 mL/min (A) (based on SCr of 0.99 mg/dL (H)). tacrolimus IR (PROGRAF) 1 mg capsule Sig: Take 2 capsules by mouth every morning AND 1 capsule every evening. documented in this encounter [facility] 12-12-2023 Miscellaneous Notes Pt. informed. INR at goal range, continue current coumadin dose, repeat INR in 2 weeks. documented in this encounter [facility] 12-12-2023 Instructions Zully Marcial MA - 12/12/2023 10:48 AM EDT GENERAL SUN SAFETY Thank you for allowing me to examine you for signs of skin cancer today. We had an opportunity to discuss my findings and any treatments I recommended. I believe that there are several steps that a person can do to help prevent skin cancers and to detect them at an early, treatable stage: 1. I highly recommend that once a month you perform your own complete skin check looking for changing or unusual spots. Use a wall-mounted mirror and a hand mirror to assist in seeing body areas that are difficult to see otherwise. If you have a family member that can assist, this is often helpful. Additional information can be obtained at: [email or web address]/ejkg-pmnytf-u [email or web address]-detection 2. In many cases, skin cancer can be prevented. The best way to protect yourself is to avoid too much sun and sunburns. Health care providers believe that ultraviolet rays (UV rays) from the sun damage the skin and over time lead to skin cancer. Here are ways to protect yourself: -Don't spend long periods of time in direct sunlight. -Wear hats with brims to protect your face and ears. -Wear long-sleeved shirts and pants to protect your arms and legs. -Use broad spectrum sunscreens with a SPF (skin protection factor) of 30 or higher that protect against burning and tanning rays. Apply the lotion 30 minutes before you go outside. (Broad-spectrum sunscreens protect against UV-B and UV-A rays.) -Wear sunglasses to protect your eyes. -Use a lip balm with sunscreen. -Avoid the sun between 10am and 4pm. -Show any changing mole to your health care provider Q: How do I obtain a follow-up appointment in 12 months with the dermatology team at the [facility] [place]? A: About 3 months prior to your desired appointment time, please contact our appointment center to request an appointment with the [facility]. You can either: Call the central appointment number, Request an appointment online at: [email or web address] Use your Bion[facility] appointment request function All of the clinical staff at [facility] work together as a closely-knit team to provide our patients the very best dermatologic care. Your follow-up appointment may be scheduled with one of our highly-trained Nurse Practitioners or Physician Assistants. documented in this encounter [facility] 12-12-2023 History of Presen t illness Narrative Images from the original note were not included. Department of Dermatology Bebe Sandra APRN.LIFE SCIENCE RESEARCH ASSISTANT 12/12/2023 Last visit in Dermatology: 09/30/2016 Objective/Assessment/Plan 1. Multiple benign nevi Multiple scattered pink papules with flaccid epidermis and small, symmetric cruz to brown macules with uniform pigmentation over the trunk and extremities. Observational course. Monitor for growth and changes. 2. Lentigines Densely scattered light cruz macules and small patches on all sun exposed areas. Observational course. Monitor for growth and changes. 3. Paz angioma Paz-red papules scattered to the trunk, bilateral upper extremities, bilateral lower extremities. Observational course. Monitor for growth and changes. 4. Skin cancer screening The patient's skin was examined for evidence of cutaneous malignancy. The nature of sun-induced photo-aging and skin cancers is discussed. Sun avoidance, protective clothing, and the use of 30-SPF sunscreens is advised. Observe closely for skin damage/changes, and call if such occurs. Recommend Q12 month skin exams and regular dermatology follow up Chief Complaint: Patient presents with: Full Body Skin Check Subjective and Objective HPI: Hannah Stapleton is a 28 year old female who presents for skin check. Desires: Total body skin check in female excluding genitals (patient has periodic examination by PCP and declines this exam) History of skin cancer?: No Areas of particular concern?: No Past medical history is reviewed. - Bilateral lung transplant 05/2015 Medication list is reviewed. Physical Exam included: Scalp, face, ears, neck, chest, back, abdomen, bilateral upper extremities, bilateral lower extremities, buttocks, hands, feet, nails and hair The documentation for this note was completed by Zully Marcial MA acting as scribe for Bebe Sandra APRN.CNP. December 12, 2023 10:58 AM Intake: Zully Marcial MA I agree with the Chief Complaint, ROS, and Past Histories independently gathered by the clinical work station support specialist and the remaining scribed note accurately describes my personal service to the patient. Bebe Sandra APRN.CNP documented in this encounter [facility] 11-30-2023 Miscellaneous Notes Labs reviewed with Dr. Daly. Patient instructed to take 2mg of tacrolimus in the AM and 1mg in the PM. Patient instructed to have labs checked on 12/10. The following approved medication requests have been transmitted electronically. Requested Prescriptions Pending Prescriptions Disp Refills tacrolimus IR (PROGRAF) 1 mg capsule 270 capsule 3 Sig: Take 2 capsules by mouth every morning AND 1 capsule every evening. 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 Ro. 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 Lymph nodes with focal granulomatous lymphadenitis. COMMENT Multiple Movat stains were evaluated. The etiology of the foci of granulomatous vasculitis is uncertain; a drug reaction is a consideration. Dr. Joellen Cruz from the cardiovascular pathology service has also reviewed this case. Teo Carter M.D POST TRANSPLANT EVENTS CMV: DONOR+ / RECIPIENT- EBV: DONOR+ / RECIPIENT+ PGD SCORE: PGD Score T0: Grade 3 (VV ECMO) PGD Score T12: Grade 3 (VV ECMO) PGD Score T24: Grade 3 (VA ECMO) PGD Score T48: Grade 3 (VA ECMO) PGD Score T72: Grade 3 (VA ECMO) POD #0 - Transplanted - Started on VVECMO - post op hypoxia. Hypotensive - pressors- open chest- > intra op bleeding. On Vanco and Cipro. 05/30/15 - OR- Bleeding - [id number] exploration-> Large amount of blood clots. 05/31/15 - VVECMO switched to VAECMO. Bleeding -> Large amount of blood products. Start ATG.-> to a total of 3 doses. 06/01/15 - Vascular consult -> LUE ischemia-> Start heparin 06/02/15 - Attempt to wean from ECMO. 06/03/15 - VA ECMO weaned. VVECMO initiated. Chest washout at bedside. 06/08/15 - Chest closure. Re- opened @ bedside overnight 06/15/15 - ECMO decannulated. 06/17/15 - Bronch : Removal of thick secretions 06/28/15 - TCT trial started. 07/01/15 - MMF increased to 750 mg BID. Stop Kepra - No seizures on EEG. 07/07/15 - Worsening of R effusion - No TAP. Plastic consult for R hand injured due to propofol infiltration. 07/10/15 - Airway -> Mild to moderate amount of mucus. Airway normal. Debridement of necrotic ulcer on decubitus ulcer - sacrum and coccyx aerea. 07/11/15 - Abdominal distention - start trial of Reglan 07/13/15 - Therapeutic paracentesis -> 2000 mL . MMF held due to diarrhea. C.diff -> Neg. 07/16/15 - Bronch - A0B0 - Anastomosis healing well. 07/20/15 - Downsize trach. Transferred to J82. 07/26/15 - Add Imuran 25 mg daily - pt not tolerating MMF. 07/29/15 - D/C Corpak 07/30/15 - C/o nausea. D/C to M80. 08/04/15 - GES-> Normal rate of gastric emptying. 07/13/15 - D/c for M80 to home HOSPITAL ADMIT 10/23-: Admitted from OPD with decreased PFT and fevers. CXR notable for RLL PNA. Started on empiric IV steroid pulse followed by taper. FK held due to high levels. Restarted on 0.5 BID at discharge. Transitioned to oral levaquin for 14 days and discharged in stable condition. Blood cultures + MSSA - treated with Linezolid 600mg BID for 7 days. Last Bronchoscopy: 10/11/18: AXBX, biopsies show foci of partial obliteration of vascular structures and extensive granulomatous inflammation in the vascular santana. 07/02/18: A0BX Will defer surveillance bronchs due to anticoagulation. 3 month is due on 08/28/15 07/16/15 - A0B0 - Anastomosis healing well. 07/10/15 - Airway -> Mild to Moderate amount of mucus. Normal airway DSA: 09/26/23: Donor specific HLA antibody to allelic DP3 (DPB1*03:01, DPA1*01:03) was detected. MFI values appear to be stable. 08/29/23: Donor specific HLA antibody to allelic DP3 (DPB1*03:01, DPA1*01:03) was detected . MFI values appear to be stable. 07/31/23: Donor specific HLA antibody to DP3 was detected. 05/02/23: No Donor specific HLA antibody was detected 01/03/23: No Donor specific HLA antibody was detected 08/16/22: No Donor specific HLA antibody was detected 06/24/22: No Donor specific HLA antibody was detected 02/16/22: No Donor specific HLA antibody was detected 07/20/21: No Donor specific HLA antibody was detected 11/10/20: No Donor specific HLA antibody was detected 03/28/19: No Donor specific HLA antibody was detected 11/08/18: No Donor specific HLA antibody was detected 10/23/18: No Donor specific HLA antibody was detected 07/02/18: No Donor specific HLA antibody was detected 11/09/17: No Donor specific HLA antibody was detected 07/27/17: No Donor specific HLA antibody was detected 04/11/17: No Donor specific HLA antibody was detected 11/14/16: No Donor specific HLA antibody was detected 12/22/16: No Donor specific HLA antibody was detected 12/17/15: No Donor specific HLA antibody was detected 07/27/15: No Donor specific HLA antibody was detected 07/02/15: No Donor specific HLA antibody was detected 06/15/15: No Donor specific HLA antibody was detected Allergies: Nickel; Pollen; Cefzil [Cefprozil] Current Outpatient Medications Medication Sig propranolol (INDERAL) 40 mg tablet Take 1 tablet by mouth three times a day. escitalopram oxalate (LEXAPRO) 10 mg tablet Take 1.5 tablets by mouth once daily. pantoprazole DR (PROTONIX) 40 mg tablet Take 1 tablet by mouth two times a day. azithromycin (ZITHROMAX Z-ARMINDA) 250 mg tablet Take 1 tablet by mouth every Monday, Monday, and Monday. predniSONE (DELTASONE) 5 mg tablet Take 1 tablet by mouth once daily. montelukast (SINGULAIR) 10 mg tablet take 1 tablet by mouth once daily at bedtime montelukast (SINGULAIR) 10 mg tablet Take 1 tablet by mouth daily at bedtime. atorvastatin (LIPITOR) 20 mg tablet Take 1 tablet by mouth once daily valGANciclovir (VALCYTE) 450 mg tablet Take 2 tablets by mouth once daily. sulfamethoxazole-trimethoprim (BACTRIM) 400-80 mg per tablet Take 2 tablets by mouth three times a week. buPROPion XL (WELLBUTRIN XL) 300 mg 24 hr tablet Take 1 tablet by mouth once daily. gabapentin (NEURONTIN) 300 mg capsule TAKE 2 CAPSULES BY MOUTH WITH BREAKFAST, 2 CAPS AT NOON AND 3 CAPS AT BEDTIME albuterol HFA (PROVENTIL HFA, VENTOLIN HFA) 90 mcg/actuation inhaler Inhale 2 Puffs as instructed every 6 hours as needed for wheezing/shortness of breath. azaTHIOprine (IMURAN) 50 mg tablet Take 1 tablet by mouth once daily. ondansetron (ZOFRAN) 4 mg tablet Take 1 tablet by mouth every 12 hours as needed. tacrolimus IR (PROGRAF) 0.5 mg capsule Take 1 capsule by mouth every morning. tacrolimus IR (PROGRAF) 1 mg capsule Take 1 capsule by mouth every morning AND 1 capsule every evening. ergocalciferol 50,000 unit capsule (VITAMIN D2, DRISDOL) Take 1 capsule by mouth once a week fluticasone (FLONASE) 50 mcg/actuation nasal spray Use 2 Sprays in each nostril as needed. ferrous sulfate 325 mg (65 mg iron) tablet Take 1 tablet by mouth once daily. calcium carbonate (CALCIUM 500) 500 mg calcium (1,250 mg) tablet 2000 mg daily levocetirizine (XYZAL) 5 mg tablet Take 1 tablet by mouth once daily. BIPAP Supplies, suitable mask per pt preference, chin strap, head gear, humidity, heated tubing, filters, lifetime supplies. G47.33 ABHIJIT BIPAP IPAP max 16, EPAP min 5 with PS 4-6 cmH2O, suitable mask per pt preference, chin strap, head gear, humidity, tubing, lifetime supplies. G47.33 ABHIJIT MULTIVIT-MINERALS/FOLIC ACID (WOMEN'S MULTIVITAMIN GUMMIES ORAL) Take by mouth once daily. magnesium oxide (MAGOX) 400 mg tablet Take 1 tablet by mouth twice daily. cyanocobalamin (VITAMIN B-12) 1,000 mcg tab Take 1 tablet by mouth once daily. BIOTIN ORAL Take by mouth. MELATONIN ORAL Take by mouth. folic acid 1 mg tablet Take 1 tablet by mouth once daily. warfarin (COUMADIN) 5 mg tablet 5mg every day except 7.5mg on Saturdays warfarin (COUMADIN) 7.5 mg tablet 7.5mg four days a week, 5mg three days a week oseltamivir (TAMIFLU) 75 mg capsule Take 1 capsule by mouth two times a day. Tamiflu emergency Rx. Take upon onset of influenza symptoms and get tested as soon as possible. azelastine 0.1% nasal spray Use 1 [place] in each nostril twice daily. Insulin [place], Disposable, (BD ULTRAFINE III MINI PEN) 31 gauge x 3/16 1 Each one time a week. No current facility-administered medications for this visit. Interval History: Patient seen for a 2 month follow up. Patient continues to follow with transplant psychiatry and next appointment is 03/20/24. She fell and hurt her left leg in October, no fracture, however still has resolving hematoma. Following with ortho and prescribed tramadol- no longer taking. Patient presents ambulatory and on room air. Using her usual leg braces. Denies illness since last visit. Denies SOB at rest, does endorse SOB on exertion at times. Home spirometry not checked recently. PFTs today stable since last visit. BP not being checked at home. BP today 114/80 HR 76 Denies chest pain, palpitations, or edema. Denies any dizziness or further falls. Pt states appetite is good. Weight is stable since last visit, Body mass index is 47. Denies nausea or vomiting. Occasional SAIRA ~ every other week, depending on diet. Moving bowels daily denies diarrhea or constipation. Patient has been working with a Therapist locally since June 2017, and has been following with Dr. Zaman at [facility]. Takes occasional Melatonin prn. Pt wears bipap 3-4 nights a week. Pateint had been using bilateral leg braces for neuropathy- continues to use. Patient no longer following with pain clinic or neuro and continues on gabapentin. ID: CMV Donor Pos/ Recipient Neg. EBV Donor Pos/ Recipient Pos. Currently on Valcyte 900mg Daily which is now completed. On Bactrim SS on Monday and Fridays. REVIEW OF SYSTEMS PAIN ASSESSMENT: 09/20 foot pain GENERAL: No weight loss, malaise or fevers HEENT: Negative for frequent or significant headaches, No changes in hearing or vision, no nose bleeds or other nasal problems NECK: Negative for lumps, goiter, pain and significant neck swelling RESPIRATORY: Negative for cough, hemoptysis, wheezing, COPD, + WIN CARDIOVASCULAR: Negative for chest pain, leg swelling, hypertension, CHF or palpitations GI: No nausea, vomiting, or diarrhea : No history of dysuria, frequency or incontinence MUSCULOSKELETAL: Negative for joint pain or swelling, back pain or muscle pain SKIN: Negative for lesions, rash, and itching NEURO: No history of headaches, syncope, paralysis, seizures or tremors PATIENT TRANSPLANT KARNOFSKY INDEX AND LANSKY SCALE 80% - Normal activity with effort: some symptoms of disease. 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 Medical Envelope 11/12/20, 12/03/20, 05/26/21, 01/27/22 bivalent 06/28/22, 01/03/23, 09/26/23 Prevnar 13: 11/17/21 Pneumovax: 03/05/2018 Shingrix: #1 #2 Health Maintenance: Pap: 07/2020 WNL, 07/20/21 - reminded 08/17/22, 01/03/23, 09/26/23 pt to schedule. Done 11/23/23 still in process Negative for intraepithelial lesion or malignancy Mammogram: no d/t age COLONOSCOPY: Not done due to age BMD: 08/29/23 IMPRESSION: THE LOWEST Z-SCORE IS -0.6 IN THE LEFT HIP 1) DIAGNOSIS (based on BMD alone): WITHIN THE EXPECTED RANGE FOR AGE Bone Health: 12/22/22 Based on normal BMD and mechanism of fall, treatment is not recommended. Will continue annual monitoring. Optimize calcium and vitamin D. Calcium 1200 to 1500 mg daily recommended- if cannot achieve this through diet, then supplement recommended in divided doses. Continue vitamin D. Weight bearing exercise as tolerated recommended. Fall precautions discussed. Repeat bmd on same machine as prior after 02/28/2023. DERM: 03/18/21 - RTC 3-4 months for lesion on left breast. 06/29/21 WNL Scheduled 12/21/23 PH Clinic 04/30/[address] Bazan She has inoperable CTEPH and is on combination therapy with Remodulin and Adcirca and Tracleer. 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 She will in the meantime stay on Adcirca and Tracleer. She will in the meantime have IV diuresis in the hospital and even consider paracentesis to remove ascites. She will continue to follow with Coumadin to keep her INR between 2 - 3. She will return to see us after hospital discharge. Bone Team - 2018 PRE - GERD TESTING: ESOPHAGEAL MONOMETRY:too ill GASTRIC EMPTYIN04/22/15 IMPRESSION: EVIDENCE OF NORMAL RATE OF GASTRIC EMPTYING OF SOLID MEAL. PH PROBE: too ill POST- GERD TESTING: EGD 05/16/18: Interpretation / Findings Normal study. SI is negative for cough 09/18. GES 08/04/15 --> Normal rate of gastric emptying PH probe 10/15/15 IMPRESSION: Normal high resolution esophageal manometry Esophageal Manometry 10/14/15 [place] Score Channel 1 Normal ? 14.72 (95th percentile) 1.0 Procedure Description PH probe 10/2015 OFF Protonix 40 mg once a day for 7 days Interpretation / Findings Normal study. No symptoms reported. Repeat Ph Probe [id number]: Procedure Description off protonix 40 mg , tums 7 days Interpretation / Findings Normal study. SI is negative for cough 09/18. EGD with Gomez 09/25/18: Interpretation / Findings Normal study, however, evidence of acid reflux in upright position on Day 1 only. SI shows negative correlation to Heartburn: 0/1 and Regur/32. Pulmonary Function Test: Date 11/30/23 FVC 2.36 2.91 3.77 4.65 62 FEV1 1.64 2.45 3.19 3.90 51 AGD18-71 (L/sec) 0.94 2.36 3.67 5.20 25 Time (sec) 6.57 Date 09/26/23 FVC 2.44 2.91 3.77 4.65 64 FEV1 1.63 2.45 3.20 3.90 50 MSF39-96 (L/sec) 0.79 2.37 3.68 5.21 21 Time (sec) 6.61 Date 08/29/23 FVC (L) 2.33 2.91 3.77 4.65 61 FEV1 (L) 1.58 2.46 3.20 3.90 49 ZEQ98-87 (L/sec) 0.91 2.37 3.68 5.21 24 Time (sec) 8.99 Date 05/02/23 FVC (L) 2.43 2.91 3.77 4.65 64 FEV1 (L) 1.74 2.46 3.20 3.91 54 UAW29-93 (L/sec) 1.11 2.38 3.70 5.22 30 Time (sec) 8.47 Date 01/03/23 FVC (L) 2.63 3.21 4.01 4.84 65 FEV1 (L) 1.76 2.71 3.38 4.03 52 UTT04-44 (L/sec) 0.85 2.40 3.71 5.24 22 Time (sec) 7.91 Date 08/17/22 FVC 4.01 3.21 4.85 2.55 63 FEV1 3.39 2.72 4.04 1.86 54 XHK31-33 3.73 2.41 5.25 1.20 32 Time 7.16 Date 06/28/22 FVC 3.96 3.17 4.79 2.48 62 FEV1 3.35 2.69 3.99 1.74 51 JDO45-07 3.70 2.40 5.22 1.03 27 Time 9.50 Date 02/17/22 FVC 2.71 3.17 3.97 4.79 68.3 FEV1 1.95 2.70 3.36 4.00 58.2 APE70-83 1.25 2.41 3.72 5.23 33.6 FET 13.76 Date 11/17/21 FVC 2.53 3.17 3.97 4.79 63.9 FEV1 1.87 2.70 3.36 4.00 55.5 OQA31-26% L/s 1.33 2.42 3.73 5.24 35.5 SIB706% sec 8.09 DLCO_SBml/(min*m15.85 19.16 25.66 32.16 61.8 DLCOcSBml/(min*m15.95 19.16 25.66 32.16 62.2 Date [id number] FVC 2.79 3.17 3.97 4.79 70.3 FEV1 2.01 2.70 3.37 4.01 59.8 ZKN37-59 1.31 2.43 3.74 5.26 35.1 HDM650 9.66 Date 502872 FVC 2.83 3.17 3.97 4.80 71.2 FEV1 2.11 2.71 3.37 4.01 62.5 JUB75-94% L/s 1.56 2.45 3.76 5.27 41.6 CWM077% sec 13.28 Date FVC 2.84 3.17 3.97 4.80 71.6 FEV1 2.07 2.71 3.37 4.02 61.4 OPH35-40% 1.44 2.46 3.77 5.28 38.2 RTK158% 12.54 Date 787739 FVC 2.61 3.17 3.97 4.80 65.8 FEV1 1.91 2.71 3.38 4.03 56.5 GKN93-14% 1.30 2.47 3.78 5.30 34.2 FET 9.84 Date [id number] review of home spirometry for VV FVC:3.5L FEV1:1.6L Date 008073 FVC 2.48 3.18 3.97 4.80 62.5 FEV1 1.95 2.72 3.39 4.04 57.6 IYW69-42% L/s 1.84 2.50 3.81 5.33 48.1 NHP040% sec 7.47 Date 993168 FVC L 2.68 3.18 3.97 4.80 67.3 FEV1 L 2.08 2.73 3.39 4.04 61.4 AYQ71-15% L/s 1.86 2.51 3.83 5.34 48.5 QAB424% sec 9.07 Date 399551 FVC 2.52 3.17 3.97 4.80 63.6 FEV1 2.02 2.73 3.39 4.04 59.6 XKD03-66 2.04 2.52 3.83 5.34 53.1 UYH336 9.60 Date 445040 FVC L 2.88 3.17 3.97 4.80 72.4 FEV1 L 2.18 2.73 3.40 4.04 64.2 YOQ64-61% L/s 1.73 2.53 3.85 5.35 44.9 ZCU947% sec 14.14 Date 468202 FVC 3.93 3.21 4.65 2.74 70 FEV 1 3.37 2.76 3.98 2.16 64 F25/75 3.68 2.40 4.96 2.02 55 FET 15.31 Date 883792 FVC 3.93 3.21 4.65 1.98 50 FEV 1 3.37 2.76 3.98 1.53 45 MMEF 3.68 2.40 4.96 1.19 32 FET 8.14 Date 307544 FVC 3.93 3.21 4.65 2.88 73 FEV 1 3.37 2.76 3.98 2.12 63 F25/75 3.68 2.40 4.96 1.53 42 FET 14.01 Date 197070 FVC 3.93 3.21 4.65 2.95 75 FEV 1 3.37 2.76 3.98 2.38 71 F25/75 3.68 2.40 4.96 2.27 62 FET 13.84 Date 996181 FVC 3.93 3.21 4.65 2.64 67 FEV 1 3.37 2.76 3.98 2.15 64 F25/75 3.68 2.40 4.96 2.16 59 FET 8.39 Date 676710 FVC 4.03 3.30 4.76 2.98 74 FEV 1 3.45 2.83 4.07 2.42 70 MMEF 3.72 2.41 5.04 2.17 58 FET 8.99 Date 049911 FVC 4.03 3.30 4.76 3.04 75 FEV 1 3.45 2.83 4.07 2.43 71 F25/75 3.72 2.41 5.04 2.41 65 FET 11.30 Date 957667 FVC 4.03 3.30 4.76 3.01 75 FEV 1 3.46 2.84 4.08 2.43 70 MMEF 3.75 2.44 5.07 2.28 61 FET 12.16 Date 455439 FVC 4.03 3.30 4.76 2.99 74 FEV 1 3.46 2.84 4.08 2.43 70 MMEF 3.75 2.44 5.07 2.44 65 FET 7.12 Date 227549 FVC 4.03 3.30 4.76 2.96 73 FEV 1 3.46 2.84 4.08 2.47 71 F25/75 3.75 2.44 5.07 2.51 67 FET 8.22 Date 220609 FVC 4.03 3.29 4.76 2.88 72 FEV 1 3.47 2.85 4.09 2.44 70 F25/75 3.78 2.47 5.10 2.57 68 FET 7.83 Date 215005 FVC 4.03 3.29 4.76 2.85 71 FEV 1 3.47 2.85 4.09 2.40 69 F25/75 3.78 2.47 5.10 2.49 66 FET 10.62 Date 037596 FVC 4.03 3.29 4.76 3.00 75 FEV 1 3.47 2.85 4.09 2.51 72 F25/75 3.78 2.47 5.10 2.67 71 FET 9.03 Date 119865 FVC 4.03 3.29 4.76 2.68 67 FEV 1 3.47 2.85 4.09 2.27 65 F25/75 3.78 2.47 5.10 2.58 68 FET 7.87 Date 348790 FVC 4.03 3.29 4.76 2.64 66 FEV 1 3.49 2.86 4.11 2.20 63 F25/75 3.81 2.50 5.12 2.24 59 FET 6.82 Date 371301 FVC 4.03 3.29 4.76 2.59 64 FEV 1 3.49 2.86 4.11 2.31 66 F25/75 3.81 2.50 5.12 3.16 83 FET 5.84 Date 328375 FVC 4.03 3.29 4.76 2.51 62 FEV 1 3.49 2.86 4.11 2.24 64 F25/75 3.81 2.50 5.12 2.85 75 FET 6.63 Date 716979 FVC 4.03 3.29 4.76 2.25 56 FEV 1 3.49 2.86 4.11 1.97 56 F25/75 3.81 2.50 5.12 2.52 66 FET 7.87 Date 969538 FVC 4.03 3.29 4.76 1.81 45 FEV 1 3.49 2.86 4.11 1.68 48 F25/75 3.81 2.50 5.12 2.58 68 FET 5.55 Date 443469 FVC 4.03 3.29 4.76 1.79 45 FEV 1 3.49 2.86 4.11 1.66 48 F25/75 3.81 2.50 5.12 2.24 59 FET 5.65 Date 392131 FVC 4.03 3.29 4.76 1.78 44 FEV 1 3.49 2.86 4.11 1.64 47 F25/75 3.81 2.50 5.12 2.70 71 FET 6.03 Date 05//15 Pre Transplant FVC 4.02 3.29 2.61 65 FEV 1 3.50 2.88 2.16 62 F25/75 3.84 2.52 2.37 62 FET 8.23 CHEST XRAY 11/30/2023. Reviewed by Dr. Daly: IMPRESSION: No acute disease identified in the lungs or mediastinum. Little interval change since 09/26/2023. Physical Exam: Pleasant, young female. Overweight, BMI 46.61 (stable). Not in acute distress. Not pale, icteric or cyanotic. No digital clubbing. Head: Normal. No thyromegaly, no sinus tenderness. No significant peripheral lymphadenopathy. Skin: No rash, areas of erythema or unusual skin lesions. Heart sounds: Distant. S1S2, no S3 or murmurs. Lungs: Fair air entry both lung sibley. No extra sounds. Abdomen: Soft. No areas of tenderness. No organomegaly. No ascites. No pedal edema. Non tender swelling left knee. 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 Alert. Oriented to person, place and time. No focal deficits. ASSESSMENT: 28 year old female. 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 Has been seen in Endocrine Metabolic weight management clinic but has been unable to start either of the prescribed medications- Ozempic and Wegovy because of insurance approval issues. Weight stable since last visit. Established CLAD/TOMI. History of depression. Sees Dr. David Zaman in Transplant Psychiatry and remains on Lexapro and Bupropion. Stable PFTs. No change in CXR. Post transplant bilateral foot drop. Still uses leg braces. Was seen at [facility] in [facility]. Was examined and she was fitted for a new set of braces she is waiting for. Since last visit, patient had a fall and developed a hematoma of her left knee (she is on Coumadin). Was seen by Orthopedics and had an MRI done. She did not require Surgical intervention and has a follow up Orthopedics visit scheduled. Immunosuppression: Prednisone. Prograf. Imuran. Antimicrobial prophylaxis: Bactrim. Valcyte. Labs: WBC 8.93. HgB/HCT 14.2/43.8. Platelets 242,000. Alb 4.1. AST 22. ALT 16. Glu 82. BUN 18. Cr 0.92. K 4.1. Mg 1.8. FK506 5.5. Cholesterol 143. Triglycerides 112. LDL 76. PLAN: Encouraged to exercise as tolerated. To increase Prograf dose to 2/1 and to repeat all labs in 2 weeks. Has Dermatology and Orthopedics follow up in a few weeks. To return to clinic in 3-4 months. Jeni Daly M.D Staff Physician documented in this encounter [facility] 11-30-2023 History of Presen t illness Narrative PULM FUNCTION SMARTBLOCK: Provider: Jeni Daly MD Spirometry: 1 System: [facility] [place] - [id number] documented in this encounter [facility] 11-30-2023 History of Presen t illness Narrative Radiology Service Progress Note PATIENT NAME: Hannah Stapleton DATE OF SERVICE: November 30, 2023 TIME: 7:31 AM PATIENT IDENTITY VERIFICATION COMPLETED USING TWO (2) IDENTIFIERS: Name and Date of confirmed by patient verbally. FALL SCREENING: Has the patient had 2 falls in the last year or 1 fall with injury or currently using an Ambulatory Assistive Device (Walker, Cane, Wheelchair, Crutches, etc.)? No PATIENT GENDER DATA: Female. status: : No status: NO. PATIENT RELEVANT IMPLANT DATA REVIEWED: Not Applicable PATIENT PRESENTS WITH AN IMPLANTABLE OR ATTACHED MACHINE LOADER: No RADIOLOGY DEPARTMENT: General X-ray: Exam(s) Completed: Chest X-Ray PERIPHERAL IV DATA: Not applicable SIGNED BY: RT Miky(R) November 30, 2023 7:31 AM documented in this encounter [facility] 11-23-2023 History of Presen t illness Narrative Drawing Box Tender offered: Patient declines. Tashia is a 28 year old who presents for an annual gynecologic exam without complaints. Menses: no menses but occ spotting - Mirena IUD. Contraception: IUD HPV vaccine: Yes Last Pap: 08/19/2021 normal HPV: N/A History of abnormal pap: No Last mammogram: never OB History T0 L0 SAB0 IAB0 Ectopic0 Multiple0 Live Births0 School Leader History LMP: 01/10/2023, IUD Age at Menarche: Age at First : Age at Menopause: School Leader History Comments: Sexual Activity: Never; No partner data on record Contraception: No contraception data on record PAST MEDICAL HISTORY Diagnosis Date Cardiac insufficiency following cardiac surgery Chronic thromboembolic pulmonary hypertension ([facility] 2012 Lung replaced by transplant ([facility]) 07/15/2015 Bilateral Lung Tx on 05/29/15 for CTEPH IS: per ALD Bronch 07/16/15: LRSG Grade A0 B0 Lung transplant recipient ([facility]) Migraine Obesity, Class II, BMI 35-39.9 03/05/2018 ABHIJIT (obstructive sleep apnea) AHI 9.6 01/21/2019 Pulmonary embolism (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) Right heart failure, NYHA class 4 ([facility]) Seizure ([facility]) 06/22/2015 PAST SURGICAL HISTORY Procedure Laterality Date BERGERON CATHETER IR IVC FILTER PLACEMENT 02/01/2013 Vena Tech Permanent Filter LUNG TRANSPLANT,DOUBLE 05/29/15 Annuloplasty ring PAST SURGICAL HISTORY OF 12/2016 root canal FAMILY HISTORY Problem Relation Age of Onset Headache Mother Thyroid Mother other (sarcoidosis) Mother derm Psoriasis Father Diabetes Father Headache Maternal Grandmother Thyroid Maternal Grandmother Dementia Maternal Grandmother Macular Degen Maternal Grandmother SOCIAL HISTORY Social History Tobacco Use Smoking status: Never Smokeless tobacco: Never Vaping Use Vaping Use: Never used Substance Use Topics Alcohol use: Yes Comment: Seldom Drug use: No REVIEW OF SYSTEMS Abdomen: No abdominal pain, nausea, vomiting, diarrhea, or constipation. No bloating, early satiety, indigestion, or increased flatulence. Bladder: No dysuria, gross hematuria, urinary frequency, urinary urgency, or incontinence. Breast: No breast lumps, nipple d/c, overlying skin changes, redness or skin retraction. Allergies and current medication updated:Yes EXAM: BP 124/76 Ht 5' 6 (1.68m) Wt 292 lb (132.5kg) LMP 01/10/2023 BMI 47.15 kg/(m^2). GENERAL: pleasant, female in no apparent distress BREAST: soft, non-tender, symmetric, no dominant mass, normal nipple-areolar complex, no lymphadenopathy, and no nipple discharge CHEST: Normal inspiratory effort ABDOMEN: soft, non-tender, and no masses PELVIC: external genitalia normal, normal Bartholin's glands, urethra, [place]'s glands, no vulvar lesions, no cervical lesions, good vaginal support, physiologic discharge present, normal appearing perineal body and perianal region BIMANUAL: uterus normal size, shape and consistency, no adnexal masses, and non-tender; exam limited by obesity RECTOVAGINAL: deferred. NEURO: alert and oriented x3,exam grossly non-focal EXTREMITIES: normal ASSESSMENT/PLAN: 1) Health maintenance: Pap done with HPV. Mammogram starting age 40. Nutrition, exercise and routine health maintenance exams reviewed. HPV vaccine: completed series 2) Contraception: IUD. Contraceptive options reviewed and information provided. 3) STD screening: Declined STD check. 4) Follow up one year or sooner as needed Edison Bird MD documented in this encounter [facility] 11-21-2023 Miscellaneous Notes Tacrolimus level was therapeutic at 7.8. Current dose is 1.5/1. Would recommend no change to current dose. Recheck labs in 1 month. Gayathri Norris RPh Transplants: 05/29/2015 (Lung) Lab Results Component Value Date FK506 7.8 11/20/2023 CREAT 0.95 11/20/2023 K 4.1 11/20/2023 WBC 9.02 11/20/2023 ABSNEUT 6.02 11/20/2023 Estimated Creatinine Clearance: 117.7 mL/min (based on SCr of 0.95 mg/dL). tacrolimus IR (PROGRAF) 0.5 mg capsule Sig: Take 1 capsule by mouth every morning. tacrolimus IR (PROGRAF) 1 mg capsule Sig: Take 1 capsule by mouth every morning AND 1 capsule every evening. documented in this encounter [facility] 11-21-2023 History of Presen t illness Narrative Radiology Service Progress Note PATIENT NAME: Hannah Stapleton DATE OF SERVICE: November 21, 2023 TIME: 10:49 AM PATIENT IDENTITY VERIFICATION COMPLETED USING TWO (2) IDENTIFIERS: Name and Date of confirmed by patient verbally. FALL SCREENING: Has the patient had 2 falls in the last year or 1 fall with injury or currently using an Ambulatory Assistive Device (Walker, Cane, Wheelchair, Crutches, etc.)? No PATIENT GENDER DATA: Female. status: : No status: NO. PATIENT RELEVANT IMPLANT DATA REVIEWED: Yes PATIENT PRESENTS WITH AN IMPLANTABLE OR ATTACHED MACHINE LOADER: No RADIOLOGY DEPARTMENT: MR; Exam(s) Completed: Lower MSK: Knee, left and Tib/Fib, left PERIPHERAL IV DATA: Not applicable SIGNED BY: RT Beatriz(Gayle) November 21, 2023 10:49 AM documented in this encounter [facility] 11-20-2023 Miscellaneous Notes Pt called and is notified of providers results and instructions. Pt voices understanding. Melissa Cornelius RN Please have her hold her dose today and then starting with tomorrow take the 5 mg dose every day except for on Monday. She should continue to take the 7.5 mg dose on Saturdays and repeat INR in 1 week. Last INR: INR (POCT) 4.4 11/20/2023 Current dose of coumadin is: 5mg M/W/ and 7.5 mg all other days. Double checked with Pt and this is how she is taking medication, not how it is in tracker. Pt was changed to this dosage on 09/22/23. Pt was supposed to get INR rechecked in 2 weeks and never did. Last date of dose change: 09/22/23. Previous INR (date and result): 1.4, 09/22/23 Additional Clinical Information or narrative: yes: Pt reports she usually only has salad once a week and had it 4 times this week. Pt reports she is always on Bactrim and started taking Zithromax 9 months ago. Pt reports easier bruising, but not randomly showing up. Patient INR is up at 4.4, can we please call and verify how she is currently taking her coumadin? Thanks documented in this encounter [facility] 11-09-2023 History of Presen t illness Narrative Neuromuscular Clinic New Patient Visit SERVICE DATE: 11/09/2023 PCP: Lynne Chan [address] [place] [address] Referring provider: Maria C Pardo [id number] [phone] Reason for Evaluation: Consultation requested by Maria C Pardo for an opinion regarding neuropathy. Family/Friend accompanying the patient today: none HPI: This is Ms. Hannah Stapleton, a 28 year old female who presents to the [facility] with the chief complaint above. She has fallen multiple times this past year, has fallen before but more frequent recently. She feels overall that symptoms have plateaued. She feels less confident. She has AFO braces, these hurt her somewhat, she does wear them when leaving the home and at home at times. She did start order for AFOs with balance ankle and feet, pending. She has noticed improvement of numbness over the years but still has trouble feeling over the big toes and on top of the feet and the calf muscles. She notes hands were involved in the beginning and therapy helped a lot with this. She has noticed more tremors. The tremors is when she is doing activities, not at rest, both sides. This does make things hard, will be typing and have trouble. She has been on most of medications since transplant. Tremor was worse during COVID. She is on propanolol for tremor. She feels that the hands are strong otherwise. She denies numbness in the hands. She saw Dr. Arredondo in 2018: In 05/2015, she received a lung transplantation for pulmonary hypertension. She was in a medically induced coma for three weeks. When she woke up, she had drop feet and hand weakness. She had tracheostomy and went to rehabilitation for a few weeks. She had to learn to walk again and she has been using leg braces. She can walk for a mile without a cane or a walker. 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 B12, TSH normal. No history of diabetes. Her current problems including a tremor in hands. She has forgetfulness. I have a hard time to come up with words. They told me that I have a prograft brain. . She does complains a headache which occurs once every day or every other day. She uses tylenol as needed. She is forgetful. She notices numbness in her feet, mostly top and bottom. The numbness has been slowly better. She has no numbness in hands. Her walking is better. She also notices that her hand strength is better. With a reduction of tacrolimus, she felt that her tremor and headache are better. IMPRESSION/PLAN: 1. Axonal loss sensory motor neuropathy, length dependent, in the setting of critical illness. Suspect this was a critical illness neuropathy, with a slow recovery. 2. Recent weight gain Discussed with patient and mother about the less likelihood of full recovery due to the severity of the neuropathy. Discussed about measures of avoiding further weight gain and watching for diabetes. Discussed about the need or regular exercise. Discussed about the possible need of further reducing neurontin (neurontin's side effect could be potential weight gain). Follow up as needed or in one year. 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 All sensory and motor responses are absent in the lower limb but normal in the upper extremity. A distal to proximal gradient is detected on needle electrode examination with active motor axon loss in all muscles below the knee and no voluntary motor unit recruitment in any except a very small single motor unit in the gastrocnemius. Above the knee anteriorly the vastus lateralis is normal although posteriorly,t he thigh muscles are affected with ongoing denervation in the biceps femoris (short head) and onlychronic changes in the semimembranosus; gluteus medius shows mild chronic neurogenic change. Per patient/chart review there is a past medical history of: Pulmonary HTN, s/p lung transplant ABHIJIT PE Right heart failure Critical illness neuropathy OUTPATIENT MEDICATIONS Current Outpatient Medications Medication Sig traMADol (ULTRAM) 50 mg tablet Take 1 tablet by mouth every 8 hours as needed for pain for up to 7 days. escitalopram oxalate (LEXAPRO) 10 mg tablet Take 1.5 tablets by mouth once daily. pantoprazole DR (PROTONIX) 40 mg tablet Take 1 tablet by mouth two times a day. azithromycin (ZITHROMAX Z-ARMINDA) 250 mg tablet Take 1 tablet by mouth every Monday, Monday, and Monday. predniSONE (DELTASONE) 5 mg tablet Take 1 tablet by mouth once daily. montelukast (SINGULAIR) 10 mg tablet take 1 tablet by mouth once daily at bedtime montelukast (SINGULAIR) 10 mg tablet Take 1 tablet by mouth daily at bedtime. warfarin (COUMADIN) 5 mg tablet 7.5mg four days a week, 5mg three days a week warfarin (COUMADIN) 7.5 mg tablet 7.5mg four days a week, 5mg three days a week oseltamivir (TAMIFLU) 75 mg capsule Take 1 capsule by mouth two times a day. Tamiflu emergency Rx. Take upon onset of influenza symptoms and get tested as soon as possible. atorvastatin (LIPITOR) 20 mg tablet Take 1 tablet by mouth once daily valGANciclovir (VALCYTE) 450 mg tablet Take 2 tablets by mouth once daily. sulfamethoxazole-trimethoprim (BACTRIM) 400-80 mg per tablet Take 2 tablets by mouth three times a week. buPROPion XL (WELLBUTRIN XL) 300 mg 24 hr tablet Take 1 tablet by mouth once daily. azelastine 0.1% nasal spray Use 1 [place] in each nostril twice daily. gabapentin (NEURONTIN) 300 mg capsule TAKE 2 CAPSULES BY MOUTH WITH BREAKFAST, 2 CAPS AT NOON AND 3 CAPS AT BEDTIME albuterol HFA (PROVENTIL HFA, VENTOLIN HFA) 90 mcg/actuation inhaler Inhale 2 Puffs as instructed every 6 hours as needed for wheezing/shortness of breath. azaTHIOprine (IMURAN) 50 mg tablet Take 1 tablet by mouth once daily. ondansetron (ZOFRAN) 4 mg tablet Take 1 tablet by mouth every 12 hours as needed. tacrolimus IR (PROGRAF) 0.5 mg capsule Take 1 capsule by mouth every morning. tacrolimus IR (PROGRAF) 1 mg capsule Take 1 capsule by mouth every morning AND 1 capsule every evening. Insulin [place], Disposable, (BD ULTRAFINE III MINI PEN) 31 gauge x 3/16 1 Each one time a week. ergocalciferol 50,000 unit capsule (VITAMIN D2, DRISDOL) Take 1 capsule by mouth once a week fluticasone (FLONASE) 50 mcg/actuation nasal spray Use 2 Sprays in each nostril as needed. ferrous sulfate 325 mg (65 mg iron) tablet Take 1 tablet by mouth once daily. calcium carbonate (CALCIUM 500) 500 mg calcium (1,250 mg) tablet 2000 mg daily levocetirizine (XYZAL) 5 mg tablet Take 1 tablet by mouth once daily. BIPAP Supplies, suitable mask per pt preference, chin strap, head gear, humidity, heated tubing, filters, lifetime supplies. G47.33 ABHIJIT BIPAP IPAP max 16, EPAP min 5 with PS 4-6 cmH2O, suitable mask per pt preference, chin strap, head gear, humidity, tubing, lifetime supplies. G47.33 ABHIJIT MULTIVIT-MINERALS/FOLIC ACID (WOMEN'S MULTIVITAMIN GUMMIES ORAL) Take by mouth once daily. magnesium oxide (MAGOX) 400 mg tablet Take 1 tablet by mouth twice daily. cyanocobalamin (VITAMIN B-12) 1,000 mcg tab Take 1 tablet by mouth once daily. BIOTIN ORAL Take by mouth. MELATONIN ORAL Take by mouth. folic acid 1 mg tablet Take 1 tablet by mouth once daily. propranolol (INDERAL) 40 mg tablet Take 1 tablet by mouth three times a day. No current facility-administered medications for this visit. MEDICAL HISTORY PAST MEDICAL HISTORY Diagnosis Date Cardiac insufficiency following cardiac surgery Chronic thromboembolic pulmonary hypertension (HCC) 2012 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) 07/15/2015 Bilateral Lung Tx on 05/29/15 for CTEPH IS: per ALD Bronch 07/16/15: LRSG Grade A0 B0 Lung transplant recipient (HCC) Migraine Obesity, Class II, BMI 35-39.9 03/05/2018 ABHIJIT (obstructive sleep apnea) AHI 9.6 01/21/2019 Pulmonary embolism (HCC) 2012 Radial artery thrombosis (HCC) 06/01/2015 Right heart failure due to pulmonary hypertension (HCC) Right heart failure, NYHA class 4 (HCC) Seizure (HCC) 06/22/2015 SURGICAL HISTORY PAST SURGICAL HISTORY Procedure Laterality Date BERGERON CATHETER IR IVC FILTER PLACEMENT 02/01/2013 Vena Tech Permanent Filter LUNG TRANSPLANT,DOUBLE 05/29/15 Annuloplasty ring PAST SURGICAL HISTORY OF 12/2016 root canal SOCIAL HISTORY Social History Tobacco Use Smoking status: Never Smokeless tobacco: Never Vaping Use Vaping Use: Never used Substance Use Topics Alcohol use: Yes Comment: Seldom Drug use: No FAMILY HISTORY FAMILY HISTORY Problem Relation Age of Onset Headache Mother Thyroid Mother other (sarcoidosis) Mother derm Psoriasis Father Diabetes Father Headache Maternal Grandmother Thyroid Maternal Grandmother Dementia Maternal Grandmother Macular Degen Maternal Grandmother ALLERGIES ALLERGIES Allergen Reactions Nickel Rash rash Pollen Other: See Comments nose runs Cefzil [Cefprozil] Hives Fentanyl Mental Status Change Patient reports anger issues Lyrica [Pregabalin] Contraindication-Medical Surgical Lack of efficacy. Pain worse and needed to go back to gabapentin Nsaids (Non-Steroid* Contraindication-Medical Surgical PHYSICAL EXAM: BP 117/81 Pulse 80 Ht 165.1 cm (5' 5 ) Wt 129.7 kg (286 lb) LMP 01/10/2023 BMI 47.59 kg/m General: General appearance: Awake and alert. No distress. Cooperative with exam. Skin: No rash or jaundice. HEENT: Atraumatic. Anicteric. Extremities: No edema. No obvious deformity. Musculoskeletal: No obvious joint swelling. Psych: Affect appropriate. Neurological: Mental Status: Alert. Speech fluent. Cranial Nerves: CNII: Visual sibley intact. CNIII, IV, : No nystagmus. EOMI. CN V: Facial sensation intact bilaterally to fine touch. CN VII: Facial muscles symmetric and strong. CN VIII: Hears finger rub well bilaterally. CN IX: No hypophonia. CN X: Palate elevates symmetrically. CN XI: Full strength shoulder shrug bilaterally. CN XII: Tongue protrusion full and midline. No atrophy or fasciculations. No significant dysarthria Motor: reduced bulk Individual muscle group testing (MRC grade out of 5): Movement Right Left Shoulder abduction 5 5 Elbow flexion 5 5 Elbow extension 5 5 Wrist extension 5 5 Wrist flexion 5 5 Finger abduction - FDI 5 5 Finger abduction - ADM 5 5 Finger extension 5 5 Finger dist flex - 2/3 5 5 Finger dist flex - 4/5 5 5 Thumb flexion (FPL) 5 5 Thumb abduction (APB) 5 5 Hip flexion 5 5 Hip extension 5 5 Hip adduction 5 5 Hip abduction 5 5 Knee extension 5 5 Knee flexion 5 5 Dorsiflexion 3 but not fully antigravity 3 but not fully antigravity Plantarflexion 5- or 4+ 4- Inversion 3 3 Eversion 4 4 Reflexes: Right Left Bicep 2+/4 2+/4 Tricep 2+/4 2+/4 BrRad 2+/4 2+/4 Knee 2+/4 2+/4 Ankle 0/4 0/4 Pathological Reflexes: Babinski: mute response bilaterally [place]: -- Frontal Release Signs: Deferred Sensation: Pinprick: intact in uppers, reduced in lowers to about mid heck Vibration: absent at toes, 6 seconds at ankles Proprioception: intact Coordination: Intact finger-to- nose-finger intact Gait: Steppage gait ASSESSMENT: This is Hannah Stapleton, a 28 year old female with: 1. Critical illness neuropathy w/ bilateral foot drop 2. Tremor, medication induced vs essential? Patient presents with prior diagnosis of critical illness neuropathy, evaluated by Dr. Arredondo in 2018. Compared to exam at that time, exam is fairly stable today, possible slight improvement. Unfortunately, this is unlikely to improve given the duration of symptoms. She already had AFOs ordered and is pending flower buncher or picker, may benefit from gait training with PT at [facility]. We discussed testing B12. Patient also reports tremor, possibly due to tacrolimus, on propanolol for this, can try increasing this. PLAN: -Blood work, as below -RTC as needed -The impression above as well as the plan as outlined below were extensively discussed with the patient () who voiced understanding. All questions were answered to their satisfaction. -Labs/Studies: Orders Placed This Encounter VITAMIN B12 BLOOD Standing Status: Future Standing Expiration Date: 02/08/2024 Scheduling Instructions: In preparation for this test, do not take multivitamins or dietary supplements containing biotin (vitamin B7) for at least 12 hours. Biotin is commonly found in hair, skin, and nail supplements and multivitamins. Tell your doctor if you take supplements containing biotin as part of your medication history. METHYLMALONIC ACID Standing Status: Future Standing Expiration Date: 02/08/2024 NEUROPATHY RELATED - Consult to Physical Therapy Order Comments: Jade dahl Standing Status: Future Standing Expiration Date: 11/08/2024 Scheduling Instructions: For an appointment call: [facility] [place]: [phone]. [facility]: [phone], Option 1. [facility]) ADULTS - For an appointment call: [place], [place]: [phone] ([address], [address]) [place], [place]: [phone] ([address]) or [phone] ([address]) [place], [place]: [phone] ([address]) or [phone] ([address], [address]) or [phone] ([address], [address]) PEDIATRICS - For an appointment call: [place], [place]: [phone] ([address]) The assignment agent will assist you in selecting the location and specialty service that will best meet your needs. For a list of sites and services: [email or web address] Order Date: November 09, 2023 Ordering Physician: Liseth Ward DO (Signed Electronically in [facility]) Order Specific Question: Type of PT Answer: Neurology Order Specific Question: Neurology Answer: Neuropathy (UE/LE) Order Specific Question: Does consulting provider have [facility] Epic access? Answer: Yes Order Specific Question: Treatment Plan Answer: Eval and Treat Order Specific Question: Surgical Procedures Answer: No Surgical Procedure Order Specific Question: Precautions/Protocols Answer: No Specific Order Specific Question: Preferred Therapist Answer: First Available Order Specific Question: Preferred Location Answer: First Available propranolol (INDERAL) 40 mg tablet Sig: Take 1 tablet by mouth three times a day. Dispense: 90 tablet Refill: 2 This note was partially created using voice recognition software and is inherently subject to errors including those of syntax and sound-alike substitutions which may escape proofreading. In such instances, original meaning may be extrapolated by contextual derivation. Liseth Ward DO Staff, Neuromuscular Specialist I spent a total of 45 minutes on the date of the service which included preparing to see the patient, [id number] patient care, completing clinical documentation, obtaining and/or reviewing separately obtained history, performing a medically appropriate examination, counseling and educating the patient/family/caregiver, and ordering medications, tests, or procedures. documented in this encounter [facility] 11-07-2023 History of Presen t illness Narrative She is here with acute left knee and leg pain. Lung transplant patient. Was in an induced coma and somehow developed a left foot drop. Fell several weeks ago and injured her leg. She wears an AFO from her foot drop. Developed swelling and pain in her knee and lower leg. Pain with weightbearing. Also has some long standing numbness in her left leg.Review of systems negative for fever, weight loss, malaise, fatigue, significant headache, vision changes, hearing loss, neck swelling, cough, chest pain, shortness of breath, dyspnea on exertion, abdominal pain, nausea, vomiting, diarrhea, urinary dysfunction, upper/lower extremity numbness/tingling/weakness/edema , heat/cold intolerance Exam has ecchymosis and significant swelling in the left knee and proximal tibia lateral compartment. Her compartments are soft and she is neurologically intact. Painful motion 0 to 110 degrees. Joint line tenderness in her left knee as well. Instability testing difficult due to guarding. X-rays of her knee unremarkable. Assessment contusion left leg with huge hematoma and possible meniscal pathology. Plan topical anti-inflammatory gel, ice, MRI left knee and leg. Then recheck. Chandra Gaitan MD documented in this encounter [facility] 11-07-2023 Instructions Chandra Gaitan MD - 11/07/2023 8:[address] Gaitan has ordered a cream that will be delivered to your home. The company, [employer], will call or text you from [phone] phone number. Please reply or answer the call to start the process. If you do not hear from them within 48 hours, please call . Call [phone] to schedule MRI and then call [phone], select option number 2 then HOLD to schedule f/u appointment for MRI results with Dr Gaitan MRI results will not be given per phone messages. documented in this encounter [facility] 10-30-2023 Miscellaneous Notes Patient has been identified by name and date of : Yes Patient phones for refill(s): Requested Prescriptions Pending Prescriptions Disp Refills propranolol (INDERAL) 20 mg tablet [Pharmacy Med Name: Propranolol HCl 20 MG Oral Tablet] 90 tablet 0 Sig: take 1 tablet by mouth three times daily Date of last office visit in primary care: 01/30/2023 Date of next office visit in primary care: Visit date not found Please advise. Thank you. Mitra Head LPN. documented in this encounter [facility] 10-27-2023 History of Presen t illness Narrative Images from the original note were not included. Subjective HPI HPI Hannah Stapleton is a 28 year old female who presents today for CC of fall left knee injury. This started 1 week ago. Has tried otc medication for relief. Symptoms are worsened by rom. On blood thinners. Denies numbness/tingling. 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 pantoprazole DR (PROTONIX) 40 mg tablet Take 1 tablet by mouth two times a day. azithromycin (ZITHROMAX Z-ARMINDA) 250 mg tablet Take 1 tablet by mouth every Monday, Monday, and Monday. predniSONE (DELTASONE) 5 mg tablet Take 1 tablet by mouth once daily. montelukast (SINGULAIR) 10 mg tablet take 1 tablet by mouth once daily at bedtime montelukast (SINGULAIR) 10 mg tablet Take 1 tablet by mouth daily at bedtime. propranolol (INDERAL) 20 mg tablet Take 1 tablet by mouth three times a day. warfarin (COUMADIN) 5 mg tablet 7.5mg four days a week, 5mg three days a week warfarin (COUMADIN) 7.5 mg tablet 7.5mg four days a week, 5mg three days a week oseltamivir (TAMIFLU) 75 mg capsule Take 1 capsule by mouth two times a day. Tamiflu emergency Rx. Take upon onset of influenza symptoms and get tested as soon as possible. atorvastatin (LIPITOR) 20 mg tablet Take 1 tablet by mouth once daily valGANciclovir (VALCYTE) 450 mg tablet Take 2 tablets by mouth once daily. sulfamethoxazole-trimethoprim (BACTRIM) 400-80 mg per tablet Take 2 tablets by mouth three times a week. buPROPion XL (WELLBUTRIN XL) 300 mg 24 hr tablet Take 1 tablet by mouth once daily. azelastine 0.1% nasal spray Use 1 [place] in each nostril twice daily. gabapentin (NEURONTIN) 300 mg capsule TAKE 2 CAPSULES BY MOUTH WITH BREAKFAST, 2 CAPS AT NOON AND 3 CAPS AT BEDTIME albuterol HFA (PROVENTIL HFA, VENTOLIN HFA) 90 mcg/actuation inhaler Inhale 2 Puffs as instructed every 6 hours as needed for wheezing/shortness of breath. azaTHIOprine (IMURAN) 50 mg tablet Take 1 tablet by mouth once daily. ondansetron (ZOFRAN) 4 mg tablet Take 1 tablet by mouth every 12 hours as needed. tacrolimus IR (PROGRAF) 0.5 mg capsule Take 1 capsule by mouth every morning. tacrolimus IR (PROGRAF) 1 mg capsule Take 1 capsule by mouth every morning AND 1 capsule every evening. Insulin [place], Disposable, (BD ULTRAFINE III MINI PEN) 31 gauge x 3/16 1 Each one time a week. ergocalciferol 50,000 unit capsule (VITAMIN D2, DRISDOL) Take 1 capsule by mouth once a week fluticasone (FLONASE) 50 mcg/actuation nasal spray Use 2 Sprays in each nostril as needed. ferrous sulfate 325 mg (65 mg iron) tablet Take 1 tablet by mouth once daily. calcium carbonate (CALCIUM 500) 500 mg calcium (1,250 mg) tablet 2000 mg daily levocetirizine (XYZAL) 5 mg tablet Take 1 tablet by mouth once daily. BIPAP Supplies, suitable mask per pt preference, chin strap, head gear, humidity, heated tubing, filters, lifetime supplies. G47.33 ABHIJIT BIPAP IPAP max 16, EPAP min 5 with PS 4-6 cmH2O, suitable mask per pt preference, chin strap, head gear, humidity, tubing, lifetime supplies. G47.33 ABHIJIT MULTIVIT-MINERALS/FOLIC ACID (WOMEN'S MULTIVITAMIN GUMMIES ORAL) Take by mouth once daily. magnesium oxide (MAGOX) 400 mg tablet Take 1 tablet by mouth twice daily. cyanocobalamin (VITAMIN B-12) 1,000 mcg tab Take 1 tablet by mouth once daily. BIOTIN ORAL Take by mouth. MELATONIN ORAL Take by mouth. folic acid 1 mg tablet Take 1 tablet by mouth once daily. FAMILY HISTORY Problem Relation Age of Onset Headache Mother Thyroid Mother other (sarcoidosis) Mother derm Psoriasis Father Diabetes Father Headache Maternal Grandmother Thyroid Maternal Grandmother Dementia Maternal Grandmother Macular Degen Maternal Grandmother Social History Tobacco Use Smoking status: Never Smokeless tobacco: Never Vaping Use Vaping Use: Never used Substance Use Topics Alcohol use: Yes Comment: Seldom Drug use: No ROS Objective Blood pressure 128/82, pulse 85, temperature 36.7 C (98 F), resp. rate 23, weight 133.3 kg (293 lb 12.8 oz), last menstrual period 01/10/2023, SpO2 97%. Physical Exam Constitutional: General: She is not in acute distress. Appearance: She is not toxic-appearing or diaphoretic. HENT: Head: Normocephalic and atraumatic. Pulmonary: Effort: Pulmonary effort is normal. No accessory muscle usage or respiratory distress. Musculoskeletal: Legs: Neurological: Mental Status: She is alert and oriented to person, place, and time. ASSESSMENT/PLAN: 1. Knee injuries, left, initial encounter - ICD9: 959.7, ICD10: S89.92XA Sprain/contusion -no bony abnormality noted on xray -given stretches/exercises -Rest, Ice, , Elevation discussed -follow up with primary care if symptoms persist/worsen in 10-14 days - XR KNEE GENERAL 4V AP BOTH/PA BOTH/LAT/MERC LEFT IMPRESSION: No acute abnormality Dictated by : MD Chari CHACON APRN.LIFE SCIENCE RESEARCH ASSISTANT documented in this encounter [facility] 10-27-2023 History of Presen t illness Narrative Radiology Service Progress Note PATIENT NAME: Hannah Stapleton DATE OF SERVICE: October 27, 2023 TIME: 2:29 PM PATIENT IDENTITY VERIFICATION COMPLETED USING TWO (2) IDENTIFIERS: Name and Date of confirmed by patient verbally. FALL SCREENING: Has the patient had 2 falls in the last year or 1 fall with injury or currently using an Ambulatory Assistive Device (Walker, Cane, Wheelchair, Crutches, etc.)? No PATIENT GENDER DATA: Female. status: : No status: NO. PATIENT RELEVANT IMPLANT DATA REVIEWED: Yes PATIENT PRESENTS WITH AN IMPLANTABLE OR ATTACHED MACHINE LOADER: No RADIOLOGY DEPARTMENT: General X-ray: Exam(s) Completed: Lower Extremity X-Ray(s): Knee, AP / Lat / Tunne / Merchant Left PERIPHERAL IV DATA: Not applicable SIGNED BY: RT Lane(R) October 27, 2023 2:29 PM documented in this encounter [facility] 10-24-2023 Miscellaneous Notes Spoke to Tashia, given below recommendation, states she is doing just fine on Tylenol . Tashia has an appt w/PCP, 01/16/2024, will discuss at appt if needed. Mitra Head LPN Cannot find any notes from pharmacy refill request. Patient got this RX once in January 2023. Normally we do not do refill requests through pharmacy and not typically for controlled medications like tramadol or tramadol/acetaminophen per [facility] policy. She has not been seen since January 2023 when was given the RX. Is she able to come in for appointment to discuss need for the pain med and whether needs further evaluation and treatment for the cause of the pain needs this medication for? Tashia is asking for the status of her refill. See note from pharmacy on pended order. Ada Batista MA documented in this encounter [facility] 10-23-2023 Miscellaneous Notes The following approved medication requests have been transmitted electronically. Requested Prescriptions Pending Prescriptions Disp Refills pantoprazole DR (PROTONIX) 40 mg tablet 180 tablet 3 Sig: Take 1 tablet by mouth two times a day. Neeta Harrison RN documented in this encounter [facility] 10-17-2023 History of Presen t illness Narrative Images from the original note were not included. Chief Complaint: Peripheral neuropathy and bilateral dropfoot HPI: This 28 year old female with PMH indicated below presents complaining of peripheral neuropathy and bilateral foot drop. Patient has extensive past medical history including lung transplant in 2014. She states she was in a coma postoperatively and was on ECMO for period of time. She states following this she noticed her bilateral foot drop and numbness affecting the feet and legs. She has been treated with physical therapy multiple times and wears dorsiflexory assist AFO braces in her shoes for the foot drop. She states her braces are uncomfortable due to areas of rubbing/irritation and are several years old. She denies known diagnosed cause of her peripheral neuropathy but attributes the onset to immediately following her transplant. She denies any recent changes in her medications. Denies history of diabetes or lumbar spinal disease. She is currently on Coumadin as well as prednisone/antirejection medications. States that she thinks she has had an EMG/NCV several years ago but does not recall the result. States she has not seen a neurologist at this point. Denies other pedal complaints. PCP: Lynne Chan MD: PAST MEDICAL HISTORY Diagnosis Date Cardiac insufficiency following cardiac surgery Chronic thromboembolic pulmonary hypertension (HCC) 2012 Lung replaced by transplant ([facility]) 07/15/2015 Bilateral Lung Tx on 05/29/15 for CTEPH IS: per ALD Bronch 07/16/15: LRSG Grade A0 B0 Lung transplant recipient ([facility]) Migraine Obesity, Class II, BMI 35-39.9 03/05/2018 ABHIJIT (obstructive sleep apnea) AHI 9.6 01/21/2019 Pulmonary embolism (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) Right heart failure, NYHA class 4 ([facility]) Seizure ([facility]) 06/22/2015 : Current Outpatient Medications Medication Sig azithromycin (ZITHROMAX Z-ARMINDA) 250 mg tablet Take 1 tablet by mouth every Monday, Monday, and Monday. predniSONE (DELTASONE) 5 mg tablet Take 1 tablet by mouth once daily. montelukast (SINGULAIR) 10 mg tablet take 1 tablet by mouth once daily at bedtime montelukast (SINGULAIR) 10 mg tablet Take 1 tablet by mouth daily at bedtime. escitalopram oxalate (LEXAPRO) 10 mg tablet Take 1.5 tablets by mouth once daily. propranolol (INDERAL) 20 mg tablet Take 1 tablet by mouth three times a day. warfarin (COUMADIN) 5 mg tablet 7.5mg four days a week, 5mg three days a week warfarin (COUMADIN) 7.5 mg tablet 7.5mg four days a week, 5mg three days a week oseltamivir (TAMIFLU) 75 mg capsule Take 1 capsule by mouth two times a day. Tamiflu emergency Rx. Take upon onset of influenza symptoms and get tested as soon as possible. atorvastatin (LIPITOR) 20 mg tablet Take 1 tablet by mouth once daily valGANciclovir (VALCYTE) 450 mg tablet Take 2 tablets by mouth once daily. sulfamethoxazole-trimethoprim (BACTRIM) 400-80 mg per tablet Take 2 tablets by mouth three times a week. buPROPion XL (WELLBUTRIN XL) 300 mg 24 hr tablet Take 1 tablet by mouth once daily. azelastine 0.1% nasal spray Use 1 [place] in each nostril twice daily. gabapentin (NEURONTIN) 300 mg capsule TAKE 2 CAPSULES BY MOUTH WITH BREAKFAST, 2 CAPS AT NOON AND 3 CAPS AT BEDTIME albuterol HFA (PROVENTIL HFA, VENTOLIN HFA) 90 mcg/actuation inhaler Inhale 2 Puffs as instructed every 6 hours as needed for wheezing/shortness of breath. azaTHIOprine (IMURAN) 50 mg tablet Take 1 tablet by mouth once daily. ondansetron (ZOFRAN) 4 mg tablet Take 1 tablet by mouth every 12 hours as needed. tacrolimus IR (PROGRAF) 0.5 mg capsule Take 1 capsule by mouth every morning. tacrolimus IR (PROGRAF) 1 mg capsule Take 1 capsule by mouth every morning AND 1 capsule every evening. Insulin [place], Disposable, (BD ULTRAFINE III MINI PEN) 31 gauge x 3/16 1 Each one time a week. ergocalciferol 50,000 unit capsule (VITAMIN D2, DRISDOL) Take 1 capsule by mouth once a week fluticasone (FLONASE) 50 mcg/actuation nasal spray Use 2 Sprays in each nostril as needed. pantoprazole DR (PROTONIX) 40 mg tablet Take 1 tablet by mouth twice daily. ferrous sulfate 325 mg (65 mg iron) tablet Take 1 tablet by mouth once daily. calcium carbonate (CALCIUM 500) 500 mg calcium (1,250 mg) tablet 2000 mg daily levocetirizine (XYZAL) 5 mg tablet Take 1 tablet by mouth once daily. BIPAP Supplies, suitable mask per pt preference, chin strap, head gear, humidity, heated tubing, filters, lifetime supplies. G47.33 ABHIJIT BIPAP IPAP max 16, EPAP min 5 with PS 4-6 cmH2O, suitable mask per pt preference, chin strap, head gear, humidity, tubing, lifetime supplies. G47.33 ABHIJIT MULTIVIT-MINERALS/FOLIC ACID (WOMEN'S MULTIVITAMIN GUMMIES ORAL) Take by mouth once daily. magnesium oxide (MAGOX) 400 mg tablet Take 1 tablet by mouth twice daily. cyanocobalamin (VITAMIN B-12) 1,000 mcg tab Take 1 tablet by mouth once daily. BIOTIN ORAL Take by mouth. MELATONIN ORAL Take by mouth. folic acid 1 mg tablet Take 1 tablet by mouth once daily. No current facility-administered medications for this visit. : ALLERGIES Allergen Reactions Nickel Rash rash Pollen Other: See Comments nose runs Cefzil [Cefprozil] Hives Fentanyl Mental Status Change Patient reports anger issues Lyrica [Pregabalin] Contraindication-Medical Surgical Lack of efficacy. Pain worse and needed to go back to gabapentin Nsaids (Non-Steroid* Contraindication-Medical Surgical : PAST SURGICAL HISTORY Procedure Laterality Date BERGERON CATHETER IR IVC FILTER PLACEMENT 02/01/2013 Vena Tech Permanent Filter LUNG TRANSPLANT,DOUBLE 05/29/15 Annuloplasty ring PAST SURGICAL HISTORY OF 12/2016 root canal FAMILY HISTORY Problem Relation Age of Onset Headache Mother Thyroid Mother other (sarcoidosis) Mother derm Psoriasis Father Diabetes Father Headache Maternal Grandmother Thyroid Maternal Grandmother Dementia Maternal Grandmother Macular Degen Maternal Grandmother : Social History Tobacco Use Smoking status: Never Smokeless tobacco: Never Vaping Use Vaping Use: Never used Substance Use Topics Alcohol use: Yes Comment: Seldom Drug use: No REVIEW OF SYSTEMS MSK: + as noted in HPI. Physical Exam: Patient is alert and oriented x 3 in NAD. Patient is a 28 year old female who appears well developed, well nourished and with good attention to hygiene and body habitus. Temp 36.6 C (97.8 F) LMP 01/10/2023 Vascular: DP and PT pulses are palpable. CFT less than 3 seconds to all digits bilateral. Skin temperature is warm to warm from proximal to distal bilateral. Hair growth is noted. No edema noted. No varicosities noted. Neuro: Light touch intact bilateral. Protective sensation intact at all pedal sites via [place] Anu 5.07 monofilament bilateral. Derm: Skin texture and turgor within normal limits. Toenails normal in appearance. Webspaces 1-4 clean, dry, intact b/l. No rashes, subcutaneous nodules, or open lesions noted. No hyperkeratotic tissue. Musculoskeletal/Orthopaedic: General foot morphology: planus medial longitudinal arch +3/5 muscle strength Dorsiflexion, +5/5 Plantarflexion, +4/5 Inversion/Eversion bilateral ROM of the 1st MTPJ is full without pain or crepitus b/l. ROM of the MTJ/STJ is full without pain or crepitus b/l. 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 The patient was educated on clinical and radiographic findings, diagnosis and treatment plans. Patient state that she understands all that has been explained and all questions were answered to her apparent satisfaction. - Etiology of peripheral neuropathy and treatment options were discussed with the patient. Etiology of peripheral neuropathy unclear however given onset following lung transplant and multiple comorbidities suspect contribution. She has history of medical induced coma, with need for ECMO following transplant and questionable history of CVA during that time. No apparent pedal nerve entrapment or musculoskeletal etiology of symptoms. - Rx for new dorsiflexory assist AFO dispensed to patient today for dropfoot - Discussed potential benefit of EMG/NCV for further workup however will refer to neurologist for opinion prior to ordering. Referral to neurology provided today. Follow-up after neurology visit. Maria C Pardo DPM, [facility] [address] [place] [address] [email or web address] Speech recognition technology was utilized in the production of this note. documented in this encounter [facility] 10-13-2023 Miscellaneous Notes The following approved medication requests have been transmitted electronically. Requested Prescriptions Pending Prescriptions Disp Refills azithromycin (ZITHROMAX Z-ARMINDA) 250 mg tablet 39 tablet 3 Sig: Take 1 tablet by mouth every Monday, Monday, and Monday. predniSONE (DELTASONE) 5 mg tablet 90 tablet 3 Sig: Take 1 tablet by mouth once daily. Matt Díaz RN documented in this encounter [facility] 08-09-2023 Miscellaneous Notes Patient has been identified by name and date of : Yes Patient phones for refill(s): Requested Prescriptions Pending Prescriptions Disp Refills propranolol (INDERAL) 20 mg tablet [Pharmacy Med Name: Propranolol HCl 20 MG Oral Tablet] 90 tablet 0 Sig: take 1 tablet by mouth three times daily Date of last office visit in primary care: 01/30/2023 Date of next office visit in primary care: 08/08/2023 Last 2 Encounter Wt Readings: Date: Wt: 05/02/2023 125 kg (275 lb 9.2 oz) 02/07/2023 126.6 kg (279 lb) Previous labs/tests for medication: Blood Pressure: BUN (mg/dL) Date Value 07/31/2023 18 10/04/2021 18 Sodium (mmol/L) Date Value 07/31/2023 143 10/04/2021 142 Last 1 Encounter BP Readings: Date: BP: 05/02/2023 113/79 Please advise. Thank you. Mitra Head LPN. documented in this encounter [facility] 08-09-2023 Miscellaneous Notes Last office visit: 03/07/23 Next appointment scheduled: 01/16/24 Patient phones requesting refills as follows: Requested Prescriptions Pending Prescriptions Disp Refills propranolol (INDERAL) 20 mg tablet 90 tablet 0 Sig: Take 1 tablet by mouth three times a day. Please review and advise. Kenyetta Saha LPN documented in this encounter [facility] 08-02-2023 Miscellaneous Notes Pt called and is notified of providers results and instructions. Pt voices understanding. Melissa Cornelius RN Okay, I would like for her to continue at the same dose and repeat her INR in 2 weeks, if still low at that time and on her Lexapro and has not missed any doses we will adjust accordingly. Did speak with Tashia. She denies any diet changes. States prior to having the INR drawn she had been without the lexapro for 1 week(Missed getting it refilled by mistake) She feels she may have missed one dose for the warfarin last week. Current dosing is 5mg Sun, Mon, Wed, Fri 7.5 mg all other days LEFT MESSAGE FOR PATIENT TO CALL OFFICE. Inr is now low, continues to be very variable. Can we see if she has had any diet changes or medication changes or missed any coumadin doses and verify how she is taking this currently? documented in this encounter [facility] 08-02-2023 Miscellaneous Notes The following approved medication requests have been transmitted electronically. Requested Prescriptions Pending Prescriptions Disp Refills atorvastatin (LIPITOR) 20 mg tablet [Pharmacy Med Name: Atorvastatin Calcium 20 MG Oral Tablet] 90 tablet 3 Sig: Take 1 tablet by mouth once daily Neeta Harrison RN documented in this encounter [facility] 08-01-2023 Miscellaneous Notes Tacrolimus level was therapeutic at 6.8. Current dose is 1.5/1. Would recommend no change to current dose. Recheck labs in 2 weeks. Gayathri Norris RPh Transplants: 05/29/2015 (Lung) Lab Results Component Value Date FK506 6.8 07/31/2023 CREAT 1.01 (H) 07/31/2023 K 3.9 07/31/2023 WBC 11.91 (H) 07/31/2023 ABSNEUT 8.55 (H) 07/31/2023 CMVCPY Not detected 07/31/2023 tacrolimus IR (PROGRAF) 0.5 mg capsule 90 capsule 3 01/03/2023 documented in this encounter [facility] 07-24-2023 Miscellaneous Notes The following approved medication requests have been transmitted electronically. Requested Prescriptions Pending Prescriptions Disp Refills valGANciclovir (VALCYTE) 450 mg tablet [Pharmacy Med Name: valGANciclovir HCl 450 MG Oral Tablet] 180 tablet 3 Sig: Take 2 tablets by mouth once daily. Zack Cordero RN documented in this encounter [facility] 06-30-2023 Miscellaneous Notes The following approved medication requests have been transmitted electronically. Requested Prescriptions Pending Prescriptions Disp Refills valGANciclovir (VALCYTE) 450 mg tablet [Pharmacy Med Name: valGANciclovir HCl 450 MG Oral Tablet] 60 tablet 0 Sig: Take 2 tablets by mouth once daily Jaylin Quinn RN documented in this encounter [facility] 06-09-2023 Miscellaneous Notes Patient last visit 03/07/23 Follow up appointment scheduled 01/16/24 Gayathri Bey Ma documented in this encounter [facility] 05-31-2023 History of Presen t illness Narrative [facility] at [facility]. Here today with nose bleed for 4 hours. Patient on coumadin. Family member asking if we can cauterize it here. I discussed limitations of [facility] care and referred patient to ER. Patient well appearing and stable during triage. documented in this encounter [facility] 05-16-2023 History of Presen t illness Narrative Hannah Stapleton is here today for a following for weight management. virtual zoom 9am-9:14 I have communicated my name and active licensure. The patient's identity and physical location were verified at the time of this visit. Either the patient or their legal electronics parts sales representative has been informed of the risks and benefits of -- and alternatives to -- treatment through a remote evaluation and consents to proceed with the evaluation remotely. S: Being followed for the following comorbidities: Sleep Apnea, hyperlipidemia, lung transplant on steroid Exercising: about to start, regularly for 20 min per day for 4 days/week. Type of exercise: walk swim was taking ozempic 0.5 mg/d but needs prior auth Support at home: y, any stressors at home: n Support at work: y Status of comorbidities: Total weight lost thus far: 0 pounds Started program on : the last BMI'S: There is no height or weight on file to calculate BMI. the last CMP : Glucose (mg/dL) Date Value 05/02/2023 80 10/04/2021 71 Potassium (mmol/L) Date Value 05/02/2023 4.2 10/04/2021 3.9 Sodium (mmol/L) Date Value 05/02/2023 141 10/04/2021 142 Chloride (mmol/L) Date Value 05/02/2023 106 10/04/2021 107 CO2 (mmol/L) Date Value 05/02/2023 24 10/04/2021 25 Creatinine (mg/dL) Date Value 05/02/2023 1.04 10/04/2021 1.09 BUN (mg/dL) Date Value 05/02/2023 19 10/04/2021 18 Anion Gap (mmol/L) Date Value 05/02/2023 11 10/04/2021 10 Calcium (mg/dL) Date Value 10/04/2021 9.7 Calcium, Total (mg/dL) Date Value 05/02/2023 9.6 Protein, Total (g/dL) Date Value 05/02/2023 7.3 10/04/2021 7.3 Albumin (g/dL) Date Value 05/02/2023 4.2 10/04/2021 4.2 Bilirubin, Total (mg/dL) Date Value 05/02/2023 0.5 10/04/2021 0.3 Alkaline Phosphatase (U/L) Date Value 05/02/2023 68 10/04/2021 56 AST (U/L) Date Value 05/02/2023 27 10/04/2021 19 ALT (U/L) Date Value 05/02/2023 35 10/04/2021 13 O: physical: wt 270 lbs ht 5'6.5 lbs bmi 42.2 AppearanceWell appearing, alert, in no acute distress, well-hydrated, well nourished. and Morbidly obese Eyes normal, no erythema Neck no goiter Lungs no cough or wheezing Neuro Awake, alert and oriented x 3, No involuntary motions., and Cranial nerves II-XII grossly intact A: Lung Replaced By Transplant ([facility]) ABHIJIT (obstructive sleep apnea) AHI 9.6 Sleep-Related Hypoventilation Obesity, Class III, BMI >= 40 PLAN: start wegovy 1 mg/week RTC : 3 months Scotty Marshall MD Answers submitted by the patient for this visit: Core Review of Systems (Submitted on 05/16/2023) Fever : No Night Sweats: No Recent Unintentional Weight Change: Yes Nasal Congestion: No Hearing Loss: No Vision Disturbance: No A Cough: Yes Difficulty Breathing?: No Chest Pain: No Irregular Heart Beat: No Leg Swelling: No Nausea: No Diarrhea: No [place] Stools: No Difficulty Urinating?: No Awaken at Night More Than Once to Urinate?: No Joint Pain or Stiffness: No Muscle Aches: Yes Leg or Foot Discomfort at Night?: No A Rash: No Dizziness: No Headaches: Yes Memory Loss: No Seizures: No documented in this encounter [facility] 05-10-2023 Miscellaneous Notes The following approved medication requests have been transmitted electronically. Requested Prescriptions Pending Prescriptions Disp Refills sulfamethoxazole-trimethoprim (BACTRIM) 400-80 mg per tablet 36 tablet 11 Sig: Take 2 tablets by mouth three times a week. Neeta Harrison RN documented in this encounter [facility] 05-10-2023 Miscellaneous Notes Pt called and is notified of providers results and instructions. Pt voices understanding. Pt reports she is taking coumadin as 7.5 mg every night except for on , she is taking 5 mg instead. She will change to only taking 7.5 mg one day of the week and all other days take 5 mg daily. Melissa Cornelius RN INR back and up to 3.8, she needs to hold x2 doses (today's dose if she has not had it yet and tomorrow, if she already had today's then hold tomorrow and the next day). Our records show she should be taking her coumadin as 7.5 mg every night except for on Mon, , Thurs she is taking 5 mg instead. Please make sure she is taking it this way. If taking it that way then decrease to only taking 7.5 mg one day of the week and all other days take 5 mg daily. Repeat INR 1 week. documented in this encounter [facility] 05-02-2023 Instructions Jeni Daly MD - 05/02/2023 5:54 PM EDT BONE MINERAL DENSITY PATIENT INSTRUCTIONS ========= Bone mineral density testing measures the amount of calcium in certain parts of your bones. This information determines how strong your bones are. The test is used to detect osteoporosis, a disease in which the bone's mineral content and density are low, increasing a person's risk of fractures. The lumbar spine (lower back) and the hip are the skeletal sites usually examined. For the test, remember that: 1. You cannot take this test if you are . 2. Eat a normal diet on the day of the test. 3. Take your medications as you normally would. 4. DO NOT take calcium supplements (such as Tums) for 24 hours before the test. 5. On the day of the test, leave valuables (jewelry or credit cards) at home. 6. The test should be performed prior to oral, rectal or IV contrast studies, or at least 7 days after any of these studies. For the test, you may be asked to wear a hospital gown. You will lie on your back, on a padded table, in a comfortable position. Generally, you can resume your usual activities immediately. 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 Ro. 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 Lymph nodes with focal granulomatous lymphadenitis. COMMENT Multiple Movat stains were evaluated. The etiology of the foci of granulomatous vasculitis is uncertain; a drug reaction is a consideration. Dr. Joellen Cruz from the cardiovascular pathology service has also reviewed this case. Teo Carter M.D POST TRANSPLANT EVENTS CMV: DONOR+ / RECIPIENT- EBV: DONOR+ / RECIPIENT+ PGD SCORE: PGD Score T0: Grade 3 (VV ECMO) PGD Score T12: Grade 3 (VV ECMO) PGD Score T24: Grade 3 (VA ECMO) PGD Score T48: Grade 3 (VA ECMO) PGD Score T72: Grade 3 (VA ECMO) POD #0 - Transplanted - Started on VVECMO - post op hypoxia. Hypotensive - pressors- open chest- > intra op bleeding. On Vanco and Cipro. 05/30/15 - OR- Bleeding - [id number] exploration-> Large amount of blood clots. 05/31/15 - VVECMO switched to VAECMO. Bleeding -> Large amount of blood products. Start ATG.-> to a total of 3 doses. 06/01/15 - Vascular consult -> LUE ischemia-> Start heparin 06/02/15 - Attempt to wean from ECMO. 06/03/15 - VA ECMO weaned. VVECMO initiated. Chest washout at bedside. 06/08/15 - Chest closure. Re- opened @ bedside overnight 06/15/15 - ECMO decannulated. 06/17/15 - Bronch : Removal of thick secretions 06/28/15 - TCT trial started. 07/01/15 - MMF increased to 750 mg BID. Stop Kepra - No seizures on EEG. 07/07/15 - Worsening of R effusion - No TAP. Plastic consult for R hand injured due to propofol infiltration. 07/10/15 - Airway -> Mild to moderate amount of mucus. Airway normal. Debridement of necrotic ulcer on decubitus ulcer - sacrum and coccyx aerea. 07/11/15 - Abdominal distention - start trial of Reglan 07/13/15 - Therapeutic paracentesis -> 2000 mL . MMF held due to diarrhea. C.diff -> Neg. 07/16/15 - Bronch - A0B0 - Anastomosis healing well. 07/20/15 - Downsize trach. Transferred to J82. 07/26/15 - Add Imuran 25 mg daily - pt not tolerating MMF. 07/29/15 - D/C Corpak 07/30/15 - C/o nausea. D/C to M80. 08/04/15 - GES-> Normal rate of gastric emptying. 07/13/15 - D/c for M80 to home HOSPITAL ADMIT 10/23-: Admitted from OPD with decreased PFT and fevers. CXR notable for RLL PNA. Started on empiric IV steroid pulse followed by taper. FK held due to high levels. Restarted on 0.5 BID at discharge. Transitioned to oral levaquin for 14 days and discharged in stable condition. Blood cultures + MSSA - treated with Linezolid 600mg BID for 7 days. Last Bronchoscopy: 10/11/18: AXBX, biopsies show foci of partial obliteration of vascular structures and extensive granulomatous inflammation in the vascular santana. 07/02/18: A0BX Will defer surveillance bronchs due to anticoagulation. 3 month is due on 08/28/15 07/16/15 - A0B0 - Anastomosis healing well. 07/10/15 - Airway -> Mild to Moderate amount of mucus. Normal airway DSA: 05/02/23: pending 01/03/23: No Donor specific HLA antibody was detected 08/16/22: No Donor specific HLA antibody was detected 06/24/22: No Donor specific HLA antibody was detected 02/16/22: No Donor specific HLA antibody was detected 07/20/21: No Donor specific HLA antibody was detected 11/10/20: No Donor specific HLA antibody was detected 03/28/19: No Donor specific HLA antibody was detected 11/08/18: No Donor specific HLA antibody was detected 10/23/18: No Donor specific HLA antibody was detected 07/02/18: No Donor specific HLA antibody was detected 11/09/17: No Donor specific HLA antibody was detected 07/27/17: No Donor specific HLA antibody was detected 04/11/17: No Donor specific HLA antibody was detected 11/14/16: No Donor specific HLA antibody was detected 09/01/16: No Donor specific HLA antibody was detected 12/17/15: No Donor specific HLA antibody was detected 07/27/15: No Donor specific HLA antibody was detected 07/02/15: No Donor specific HLA antibody was detected 06/15/15: No Donor specific HLA antibody was detected Allergies: Nickel; Pollen; Cefzil [Cefprozil] Current Outpatient Medications Medication Sig sulfamethoxazole-trimethoprim (BACTRIM) 400-80 mg per tablet TAKE 2 TABLETS BY MOUTH 3 TIMES A WEEK escitalopram oxalate (LEXAPRO) 10 mg tablet Take 1.5 tablets by mouth once daily. buPROPion XL (WELLBUTRIN XL) 300 mg 24 hr tablet Take 1 tablet by mouth once daily. OZEMPIC 0.25 mg or 0.5 mg (2 mg/3 mL) pen INJECT 0.25MG SUBCUTANEOSULY ONCE A WEEK FOR 4 WEEKS THEN INCREASE TO 0.5MG ONCE A WEEK. azelastine 0.1% nasal spray Use 1 [place] in each nostril twice daily. gabapentin (NEURONTIN) 300 mg capsule TAKE 2 CAPSULES BY MOUTH WITH BREAKFAST, 2 CAPS AT NOON AND 3 CAPS AT BEDTIME albuterol HFA (PROVENTIL HFA, VENTOLIN HFA) 90 mcg/actuation inhaler Inhale 2 Puffs as instructed every 6 hours as needed for wheezing/shortness of breath. azaTHIOprine (IMURAN) 50 mg tablet Take 1 tablet by mouth once daily. propranolol (INDERAL) 20 mg tablet TAKE 1 TABLET BY MOUTH THREE TIMES DAILY ondansetron (ZOFRAN) 4 mg tablet Take 1 tablet by mouth every 12 hours as needed. warfarin (COUMADIN) 7.5 mg tablet take 7.5 mg Tues, Th, Sat, Sun , and 11.25 Mon, Wed, Fri tacrolimus IR (PROGRAF) 0.5 mg capsule Take 1 capsule by mouth every morning. tacrolimus IR (PROGRAF) 1 mg capsule Take 1 capsule by mouth every morning AND 1 capsule every evening. warfarin (COUMADIN) 5 mg tablet 7.5 mg every day except 5 mg on Monday. Adjust as directed ergocalciferol 50,000 unit capsule (VITAMIN D2, DRISDOL) Take 1 capsule by mouth once a week predniSONE (DELTASONE) 5 mg tablet Take 1 tablet by mouth once daily. fluticasone (FLONASE) 50 mcg/actuation nasal spray Use 2 Sprays in each nostril as needed. pantoprazole DR (PROTONIX) 40 mg tablet Take 1 tablet by mouth twice daily. atorvastatin (LIPITOR) 20 mg tablet Take 1 tablet by mouth once daily. azithromycin (ZITHROMAX Z-ARMINDA) 250 mg tablet Take 1 tablet by mouth every Monday,Monday,Monday. montelukast (SINGULAIR) 10 mg tablet TAKE 1 TABLET BY MOUTH ONCE DAILY AT BEDTIME ferrous sulfate 325 mg (65 mg iron) tablet Take 1 tablet by mouth once daily. calcium carbonate (CALCIUM 500) 500 mg calcium (1,250 mg) tablet 2000 mg daily levocetirizine (XYZAL) 5 mg tablet Take 1 tablet by mouth once daily. acetaminophen 325 mg cap Take by mouth. BIPAP Supplies, suitable mask per pt preference, chin strap, head gear, humidity, heated tubing, filters, lifetime supplies. G47.33 ABHIJIT BIPAP IPAP max 16, EPAP min 5 with PS 4-6 cmH2O, suitable mask per pt preference, chin strap, head gear, humidity, tubing, lifetime supplies. G47.33 ABHIJIT MULTIVIT-MINERALS/FOLIC ACID (WOMEN'S MULTIVITAMIN GUMMIES ORAL) Take by mouth once daily. magnesium oxide (MAGOX) 400 mg tablet Take 1 tablet by mouth twice daily. cyanocobalamin (VITAMIN B-12) 1,000 mcg tab Take 1 tablet by mouth once daily. BIOTIN ORAL Take by mouth. MELATONIN ORAL Take by mouth. folic acid 1 mg tablet Take 1 tablet by mouth once daily. Insulin [place], Disposable, (BD ULTRAFINE III MINI PEN) 31 gauge x 3/16 1 Each one time a week. No current facility-administered medications for this visit. Interval History: Patient seen for a 4 month follow up. Presents today ambulatory and on RA. Using her usual leg braces. Had two falls recently. Did not hit her head and no broken bones. Has a treadmill at home and is starting to use. Denies SOB at rest but has some with exertion. Patient denies frequent coughing, sputum or wheezing. Home spirometry not checked recently, encouraged to restart. PFTs today stable since last visit. BP not being checked at home. BP today 113/79 and HR 77. Denies chest pain, palpitations. Had 7 days of lasix post fall, now denies any edema. Pt states appetite is good. Weight is up 2 lbs since last visit, BMI 43.53. Follows with metabolic weight loss and was prescribed Ozempic 0.25 mg on 12/16/22, but hasn't been approved yet. Denies nausea or vomiting. Some acid reflux after eating chocolate and in the evening. Patient has been working with a Therapist locally since June 2017, and has been following with Dr. Zaman at [facility]. Moving bowels daily with occasional diarrhea. Takes occasional Melatonin prn, averages 6 hrs per night. Has a BiPap, got a new machine since the recall. Uses it periodically, 3-4 times a week. Working on getting to nightly. Pateint had been using bilateral leg braces for neuropathy- continues to use. Patient no longer following with pain clinic or neuro and continues on gabapentin. ID: CMV Donor Pos/ Recipient Neg. EBV Donor Pos/ Recipient Pos. Currently on Valcyte 900mg Daily which is now completed. On Bactrim SS on Monday and Fridays. REVIEW OF SYSTEMS GENERAL: 2 lb weight gain, no malaise or fevers HEENT: Occasional headaches, No changes in hearing or vision, no nose bleeds or other nasal problems NECK: Negative for lumps, goiter, pain and significant neck swelling RESPIRATORY: Negative for hemoptysis, wheezing, COPD, + cough & WIN CARDIOVASCULAR: Negative for chest pain, leg swelling, CHF or palpitations, + hypertension GI: No nausea, vomiting, + diarrhea : No history of dysuria, frequency or incontinence MUSCULOSKELETAL: Negative for joint pain or swelling, back pain or muscle pain SKIN: unhealed blister on ball of R foot PSYCH: Negative for sleep disturbance, mood disorder and recent psychosocial stressors HEMATOLOGY/LYMPHOLOGY: Negative for prolonged bleeding, bruising easily or swollen nodes ENDOCRINE: Negative for cold or heat intolerance, polyuria, polydipsia and goiter NEURO: No history of headaches, syncope, paralysis, seizures or tremors PATIENT TRANSPLANT KARNOFSKY INDEX AND LANSKY SCALE 80% - Normal activity with effort: some symptoms of disease. 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 Medical Envelope 11/12/20, 12/03/20, 05/26/21, 01/27/22 bivalent 06/28/22, 01/03/23 Prevnar 13: 11/17/21 Pneumovax: 03/05/2018 Shingrix: #1 #2 Health Maintenance: Pap: 07/2020 WN, 07/20/21 - reminded 08/17/22, 01/03/23 Negative for intraepithelial lesion or malignancy Mammogram: no d/t age COLONOSCOPY: Not done due to age BMD: 02/17/22 needs scheduled IMPRESSION: THE LOWEST Z-SCORE IS -1.1 IN THE LEFT HIP DIAGNOSIS: Normal bone mass Stable bone mass in spine. Increased bone mass in hip. Bone Health: 12/22/22 Based on normal BMD and mechanism of fall, treatment is not recommended. Will continue annual monitoring. Optimize calcium and vitamin D. Calcium 1200 to 1500 mg daily recommended- if cannot achieve this through diet, then supplement recommended in divided doses. Continue vitamin D. Weight bearing exercise as tolerated recommended. Fall precautions discussed. Repeat bmd on same machine as prior after 02/28/2023. DERM: 03/18/21 - RTC 3-4 months for lesion on left breast. 06/29/21 [facility] needs scheduled PH Clinic 04/30/[address] Bazan She has inoperable CTEPH and is on combination therapy with Remodulin and Adcirca and Tracleer. 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 She will in the meantime stay on Adcirca and Tracleer. She will in the meantime have IV diuresis in the hospital and even consider paracentesis to remove ascites. She will continue to follow with Coumadin to keep her INR between 2 - 3. She will return to see us after hospital discharge. Bone Team - 2018 PRE - GERD TESTING: ESOPHAGEAL MONOMETRY:too ill GASTRIC EMPTYIN04/22/15 IMPRESSION: EVIDENCE OF NORMAL RATE OF GASTRIC EMPTYING OF SOLID MEAL. PH PROBE: too ill POST- GERD TESTING: EGD 05/16/18: Interpretation / Findings Normal study. SI is negative for cough 09/18. GES 08/04/15 --> Normal rate of gastric emptying PH probe 10/15/15 IMPRESSION: Normal high resolution esophageal manometry Esophageal Manometry 10/14/15 [place] Score Channel 1 Normal ? 14.72 (95th percentile) 1.0 Procedure Description PH probe 10/2015 OFF Protonix 40 mg once a day for 7 days Interpretation / Findings Normal study. No symptoms reported. Repeat Ph Probe [id number]: Procedure Description off protonix 40 mg , tums 7 days Interpretation / Findings Normal study. SI is negative for cough 09/18. EGD with Gomez 09/25/18: Interpretation / Findings Normal study, however, evidence of acid reflux in upright position on Day 1 only. SI shows negative correlation to Heartburn: 0/1 and Regur/32. Pulmonary Function Test: Date 05/02/23 FVC (L) 2.43 2.91 3.77 4.65 64 FEV1 (L) 1.74 2.46 3.20 3.91 54 BJW74-62 (L/sec) 1.11 2.38 3.70 5.22 30 Time (sec) 8.47 Date 01/03/23 FVC (L) 2.63 3.21 4.01 4.84 65 FEV1 (L) 1.76 2.71 3.38 4.03 52 LRI66-81 (L/sec) 0.85 2.40 3.71 5.24 22 Time (sec) 7.91 Date 08/17/22 FVC 4.01 3.21 4.85 2.55 63 FEV1 3.39 2.72 4.04 1.86 54 FMS62-01 3.73 2.41 5.25 1.20 32 Time 7.16 Date 06/28/22 FVC 3.96 3.17 4.79 2.48 62 FEV1 3.35 2.69 3.99 1.74 51 XAP58-18 3.70 2.40 5.22 1.03 27 Time 9.50 Date 02/17/22 FVC 2.71 3.17 3.97 4.79 68.3 FEV1 1.95 2.70 3.36 4.00 58.2 ZFB46-75 1.25 2.41 3.72 5.23 33.6 FET 13.76 Date 11/17/21 FVC 2.53 3.17 3.97 4.79 63.9 FEV1 1.87 2.70 3.36 4.00 55.5 GHZ40-26% L/s 1.33 2.42 3.73 5.24 35.5 UQS929% sec 8.09 DLCO_SBml/(min*m15.85 19.16 25.66 32.16 61.8 DLCOcSBml/(min*m15.95 19.16 25.66 32.16 62.2 Date [id number] FVC 2.79 3.17 3.97 4.79 70.3 FEV1 2.01 2.70 3.37 4.01 59.8 XKJ59-85 1.31 2.43 3.74 5.26 35.1 ELH682 9.66 Date 003162 FVC 2.83 3.17 3.97 4.80 71.2 FEV1 2.11 2.71 3.37 4.01 62.5 IKI83-58% L/s 1.56 2.45 3.76 5.27 41.6 CRO129% sec 13.28 Date FVC 2.84 3.17 3.97 4.80 71.6 FEV1 2.07 2.71 3.37 4.02 61.4 UEB71-69% 1.44 2.46 3.77 5.28 38.2 NYX681% 12.54 Date 006903 FVC 2.61 3.17 3.97 4.80 65.8 FEV1 1.91 2.71 3.38 4.03 56.5 BVF31-90% 1.30 2.47 3.78 5.30 34.2 FET 9.84 Date [id number] review of home spirometry for VV FVC:3.5L FEV1:1.6L Date 067387 FVC 2.48 3.18 3.97 4.80 62.5 FEV1 1.95 2.72 3.39 4.04 57.6 LVJ44-02% L/s 1.84 2.50 3.81 5.33 48.1 COV236% sec 7.47 Date 920477 FVC L 2.68 3.18 3.97 4.80 67.3 FEV1 L 2.08 2.73 3.39 4.04 61.4 TCG60-43% L/s 1.86 2.51 3.83 5.34 48.5 MYW597% sec 9.07 Date 417533 FVC 2.52 3.17 3.97 4.80 63.6 FEV1 2.02 2.73 3.39 4.04 59.6 QZO66-62 2.04 2.52 3.83 5.34 53.1 JWK198 9.60 Date 952806 FVC L 2.88 3.17 3.97 4.80 72.4 FEV1 L 2.18 2.73 3.40 4.04 64.2 YSN92-54% L/s 1.73 2.53 3.85 5.35 44.9 MOQ654% sec 14.14 Date 352358 FVC 3.93 3.21 4.65 2.74 70 FEV 1 3.37 2.76 3.98 2.16 64 F25/75 3.68 2.40 4.96 2.02 55 FET 15.31 Date 754442 FVC 3.93 3.21 4.65 1.98 50 FEV 1 3.37 2.76 3.98 1.53 45 MMEF 3.68 2.40 4.96 1.19 32 FET 8.14 Date 802220 FVC 3.93 3.21 4.65 2.88 73 FEV 1 3.37 2.76 3.98 2.12 63 F25/75 3.68 2.40 4.96 1.53 42 FET 14.01 Date 070679 FVC 3.93 3.21 4.65 2.95 75 FEV 1 3.37 2.76 3.98 2.38 71 F25/75 3.68 2.40 4.96 2.27 62 FET 13.84 Date 840503 FVC 3.93 3.21 4.65 2.64 67 FEV 1 3.37 2.76 3.98 2.15 64 F25/75 3.68 2.40 4.96 2.16 59 FET 8.39 Date 268960 FVC 4.03 3.30 4.76 2.98 74 FEV 1 3.45 2.83 4.07 2.42 70 MMEF 3.72 2.41 5.04 2.17 58 FET 8.99 Date 112887 FVC 4.03 3.30 4.76 3.04 75 FEV 1 3.45 2.83 4.07 2.43 71 F25/75 3.72 2.41 5.04 2.41 65 FET 11.30 Date 211880 FVC 4.03 3.30 4.76 3.01 75 FEV 1 3.46 2.84 4.08 2.43 70 MMEF 3.75 2.44 5.07 2.28 61 FET 12.16 Date 706993 FVC 4.03 3.30 4.76 2.99 74 FEV 1 3.46 2.84 4.08 2.43 70 MMEF 3.75 2.44 5.07 2.44 65 FET 7.12 Date 502360 FVC 4.03 3.30 4.76 2.96 73 FEV 1 3.46 2.84 4.08 2.47 71 F25/75 3.75 2.44 5.07 2.51 67 FET 8.22 Date 964440 FVC 4.03 3.29 4.76 2.88 72 FEV 1 3.47 2.85 4.09 2.44 70 F25/75 3.78 2.47 5.10 2.57 68 FET 7.83 Date 114307 FVC 4.03 3.29 4.76 2.85 71 FEV 1 3.47 2.85 4.09 2.40 69 F25/75 3.78 2.47 5.10 2.49 66 FET 10.62 Date 820675 FVC 4.03 3.29 4.76 3.00 75 FEV 1 3.47 2.85 4.09 2.51 72 F25/75 3.78 2.47 5.10 2.67 71 FET 9.03 Date 954210 FVC 4.03 3.29 4.76 2.68 67 FEV 1 3.47 2.85 4.09 2.27 65 F25/75 3.78 2.47 5.10 2.58 68 FET 7.87 Date 676509 FVC 4.03 3.29 4.76 2.64 66 FEV 1 3.49 2.86 4.11 2.20 63 F25/75 3.81 2.50 5.12 2.24 59 FET 6.82 Date 003248 FVC 4.03 3.29 4.76 2.59 64 FEV 1 3.49 2.86 4.11 2.31 66 F25/75 3.81 2.50 5.12 3.16 83 FET 5.84 Date 783472 FVC 4.03 3.29 4.76 2.51 62 FEV 1 3.49 2.86 4.11 2.24 64 F25/75 3.81 2.50 5.12 2.85 75 FET 6.63 Date 889125 FVC 4.03 3.29 4.76 2.25 56 FEV 1 3.49 2.86 4.11 1.97 56 F25/75 3.81 2.50 5.12 2.52 66 FET 7.87 Date 566343 FVC 4.03 3.29 4.76 1.81 45 FEV 1 3.49 2.86 4.11 1.68 48 F25/75 3.81 2.50 5.12 2.58 68 FET 5.55 Date 260453 FVC 4.03 3.29 4.76 1.79 45 FEV 1 3.49 2.86 4.11 1.66 48 F25/75 3.81 2.50 5.12 2.24 59 FET 5.65 Date 272217 FVC 4.03 3.29 4.76 1.78 44 FEV 1 3.49 2.86 4.11 1.64 47 F25/75 3.81 2.50 5.12 2.70 71 FET 6.03 Date 01/15/15 Pre Transplant FVC 4.02 3.29 2.61 65 FEV 1 3.50 2.88 2.16 62 F25/75 3.84 2.52 2.37 62 FET 8.23 CHEST XRAY 05/02/23. Reviewed by Dr. Daly: Physical Exam: Pleasant, young female. Overweight, BMI 43.00 (Gained 2 Ibs). Not in acute distress. Not pale, icteric or cyanotic. No digital clubbing. Head: Normal. No thyromegaly, no sinus tenderness. No significant peripheral lymphadenopathy. Skin: No rash, areas of erythema or unusual skin lesions. Heart sounds: Distant. S1S2, no S3 or murmurs. Lungs: Good air entry both lung sibley. No extra sounds. Abdomen: Soft. No areas of tenderness. No organomegaly. No ascites. No pedal edema. 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 Alert. Oriented to person, place and time. No focal deficits. ASSESSMENT: 28 year old female. 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 Was prescribed Ozempic in Endocrinology Clinic by Dr. Marshall but requires prior Insurance authorization which she is waiting on. Established CLAD/TOMI. Post transplant CKD. History of anxiety. Followed by Dr. David Zaman of transplant psychiatry. Good overall quality of life and exercise tolerance. No change in CXR. Stable PFTs. Immunosuppression: Prednisone. Prograf. Imuran. Antimicrobial prophylaxis: Bactrim. Valcyte. Labs: WBC 8.43. Hgb/HCT 14.8/45.6. Platelets 260,000. Alb 4.2. AST 27. ALT 35. Glu 80. BUN 19. Cr 1.04. K 4.2. Mg 1.8. Cholesterol 137. Triglycerides 81. LDL 72. CMV DNA- Not detected. PLAN: Encouraged to exercise as tolerated. Has a new treadmill at home. Will await Insurance authorization for Ozempic. Awaiting Prograf level. Will review and make dose adjustment as needed. To return to clinic in 4 months with Dermatology follow up and Bone density. Jeni Daly M.D Staff Physician documented in this encounter [facility] 05-02-2023 History of Presen t illness Narrative PULM FUNCTION SMARTBLOCK: Provider: Jeni Daly MD Assisting Tech: Maeve Bond RRT Spirometry: 1 System: MC1 - [id number] documented in this encounter [facility] 05-02-2023 History of Presen t illness Narrative Radiology Service Progress Note PATIENT NAME: Hannah Stapleton DATE OF SERVICE: May 02, 2023 TIME: 11:09 AM PATIENT IDENTITY VERIFICATION COMPLETED USING TWO (2) IDENTIFIERS: Name and Date of confirmed by patient verbally. FALL SCREENING: Has the patient had 2 falls in the last year or 1 fall with injury or currently using an Ambulatory Assistive Device (Walker, Cane, Wheelchair, Crutches, etc.)? No PATIENT GENDER DATA: Female. status: : No status: NO. PATIENT RELEVANT IMPLANT DATA REVIEWED: Not Applicable RADIOLOGY DEPARTMENT: General X-ray: Exam(s) Completed: Chest X-Ray PERIPHERAL IV DATA: Not applicable SIGNED BY: RT Mian(R) May 02, 2023 11:09 AM documented in this encounter [facility] 04-21-2023 Miscellaneous Notes Pt needs a PA for [place]empic. Please advise. Tracy Briseno Humane Agent II Endocrinology & Metabolism [place] F20-X documented in this encounter [facility] 04-03-2023 Miscellaneous Notes The following approved medication requests have been transmitted electronically. Requested Prescriptions Pending Prescriptions Disp Refills sulfamethoxazole-trimethoprim (BACTRIM) 400-80 mg per tablet [Pharmacy Med Name: Sulfamethoxazole-Trimethoprim 400-80 MG Oral Tablet] 25 tablet 0 Sig: TAKE 2 TABLETS BY MOUTH 3 TIMES A WEEK Matt Díaz RN documented in this encounter [facility] 03-17-2023 Miscellaneous Notes PATIENT NOTIFIED OF SAME. The following approved medication requests have been transmitted electronically. Requested Prescriptions Signed Prescriptions Disp Refills buPROPion XL (WELLBUTRIN XL) 300 mg 24 hr tablet 90 tablet 3 Sig: Take 1 tablet by mouth once daily. Lynne Chan MD documented in this encounter [facility] 03-15-2023 Miscellaneous Notes [employer] sent over a notification for ozempic 0.25-0.5 mg short supply. Notice has been up loaded into the chart. Tracy Briseno Humane Agent II Endocrinology & Metabolism [place] [id number]-X documented in this encounter [facility] 03-08-2023 Miscellaneous Notes The following approved medication requests have been transmitted electronically. Requested Prescriptions Pending Prescriptions Disp Refills sulfamethoxazole-trimethoprim (BACTRIM) 400-80 mg per tablet [Pharmacy Med Name: Sulfamethoxazole-Trimethoprim 400-80 MG Oral Tablet] 25 tablet 0 Sig: TAKE 2 TABLETS BY MOUTH THREE TIMES A WEEK Matt Díaz RN documented in this encounter [facility] 03-07-2023 History of Presen t illness Narrative VIRTUAL VISIT PROGRESS NOTE This is an encounter initiated for an established patient, parent or guardian not originating from a related Evaluation & Management service provided within the previous 7 days nor leading to an Evaluation & Management service or procedure within the next 24 hours or soonest available appointment. This is a virtual visit. It required patient-provider interaction for the medical decision making as documented below. Patient has consented to this encounter. Persons Present: patient Data Reviewed: Most recent labs and imaging results. Most recent notes in chart. Patient has consented to patient-provider interaction via telephone/virtual visit for the medical decision making documented in this telephone/virtual visit encounter. I have communicated my name and active licensure. The patient's identity and physical location were verified at the time of this visit. Either the patient or their legal electronics parts sales representative has been informed of the risks and benefits of -- and alternatives to -- treatment through a remote evaluation and consents to proceed with the evaluation remotely. Total Time Spent: 15 minutes SUBJECTIVE Hannah Stapleton is a 28 year old female here today for a check up on her medical problems. Chief Complaint Patient presents with: Recheck NARAYAN Tashia presents today for a virtual visit via my chart on the zoom platform. Follow up from 02/07. Seen for right lower leg pain and swelling from a fall, she is on coumadin. INR was supra-therapeutic. Leg pain has resolved at this point for the most part. Swelling is down significantly. Not much bruising at this point. Last visit she had some concerns of wheezing with laying down. Now noticing more allergies and some issues in the am. Not congested but has a lot of drainage. Once up and clears this she feels good. Coumadin dosing as 7.5 mg every night except Monday and Monday taking 5 mg. Last Inr was 2.0 Her medications were reviewed today and her list is now up to date. Medications Current Outpatient Medications Medication Sig azelastine 0.1% nasal spray Use 1 [place] in each nostril twice daily. furosemide (LASIX) 20 mg tablet Take 1 tablet by mouth once daily as needed. escitalopram oxalate (LEXAPRO) 10 mg tablet Take 1.5 tablets by mouth once daily. gabapentin (NEURONTIN) 300 mg capsule TAKE 2 CAPSULES BY MOUTH WITH BREAKFAST, 2 CAPS AT NOON AND 3 CAPS AT BEDTIME albuterol HFA (PROVENTIL HFA, VENTOLIN HFA) 90 mcg/actuation inhaler Inhale 2 Puffs as instructed every 6 hours as needed for wheezing/shortness of breath. azaTHIOprine (IMURAN) 50 mg tablet Take 1 tablet by mouth once daily. propranolol (INDERAL) 20 mg tablet TAKE 1 TABLET BY MOUTH THREE TIMES DAILY ondansetron (ZOFRAN) 4 mg tablet Take 1 tablet by mouth every 12 hours as needed. warfarin (COUMADIN) 7.5 mg tablet take 7.5 mg , , Mon, Mon , and 11.25 Mon, Wed, Fri buPROPion XL (WELLBUTRIN XL) 150 mg 24 hr tablet Take 1 tablet by mouth once daily. tacrolimus IR (PROGRAF) 0.5 mg capsule Take 1 capsule by mouth every morning. tacrolimus IR (PROGRAF) 1 mg capsule Take 1 capsule by mouth every morning AND 1 capsule every evening. warfarin (COUMADIN) 5 mg tablet 7.5 mg every day except 5 mg on Monday. Adjust as directed semaglutide (OZEMPIC) 0.25 mg or 0.5 mg (2 mg/3 mL) pen Inject 0.25 mg subcutaneously one time a week. for 4 weeks then increase to 0.5 mg/week Insulin [place], Disposable, (BD ULTRAFINE III MINI PEN) 31 gauge x 3/16 1 Each one time a week. sulfamethoxazole-trimethoprim (BACTRIM,SEPTRA) 400-80 mg per tablet TAKE 2 TABLETS BY MOUTH 3 TIMES A WEEK ergocalciferol 50,000 unit capsule (VITAMIN D2, DRISDOL) Take 1 capsule by mouth once a week predniSONE (DELTASONE) 5 mg tablet Take 1 tablet by mouth once daily. fluticasone (FLONASE) 50 mcg/actuation nasal spray Use 2 Sprays in each nostril as needed. pantoprazole DR (PROTONIX) 40 mg tablet Take 1 tablet by mouth twice daily. atorvastatin (LIPITOR) 20 mg tablet Take 1 tablet by mouth once daily. azithromycin (ZITHROMAX Z-ARMINDA) 250 mg tablet Take 1 tablet by mouth every Monday,Monday,Monday. montelukast (SINGULAIR) 10 mg tablet TAKE 1 TABLET BY MOUTH ONCE DAILY AT BEDTIME ferrous sulfate 325 mg (65 mg iron) tablet Take 1 tablet by mouth once daily. calcium carbonate (CALCIUM 500) 500 mg calcium (1,250 mg) tablet 2000 mg daily levocetirizine (XYZAL) 5 mg tablet Take 1 tablet by mouth once daily. acetaminophen 325 mg cap Take by mouth. BIPAP Supplies, suitable mask per pt preference, chin strap, head gear, humidity, heated tubing, filters, lifetime supplies. G47.33 ABHIJIT BIPAP IPAP max 16, EPAP min 5 with PS 4-6 cmH2O, suitable mask per pt preference, chin strap, head gear, humidity, tubing, lifetime supplies. G47.33 ABHIJIT MULTIVIT-MINERALS/FOLIC ACID (WOMEN'S MULTIVITAMIN GUMMIES ORAL) Take by mouth once daily. magnesium oxide (MAGOX) 400 mg tablet Take 1 tablet by mouth twice daily. cyanocobalamin (VITAMIN B-12) 1,000 mcg tab Take 1 tablet by mouth once daily. BIOTIN ORAL Take by mouth. MELATONIN ORAL Take by mouth. folic acid 1 mg tablet Take 1 tablet by mouth once daily. No current facility-administered medications for this visit. ALLERGIES Allergen Reactions Nickel Rash rash Pollen Other: See Comments nose runs Cefzil [Cefprozil] Hives Fentanyl Mental Status Change Patient reports anger issues Lyrica [Pregabalin] Contraindication-Medical Surgical Lack of efficacy. Pain worse and needed to go back to gabapentin Nsaids (Non-Steroid* Contraindication-Medical Surgical ACTIVE PROBLEM LIST Aftercare Following Organ Transplant - 08/21/2015 (A priority) Encounter for Monitoring Tacrolimus Therapy - 08/21/2015 (A priority) Lung Replaced By Transplant (Formerly [facility]) - 07/15/2015 (A priority) Comment: Bilateral Lung Tx on 05/29/15 for CTEPH IS: per ALD Bronch 07/16/15: LRSG Grade A0 B0 Immunosuppression (Formerly [facility]) (A priority) Comment: S/p b/l lung transplant on 05/29/2015 -immunosuppression and antiimicrobial prophylaxis as per Transplant Pulmonology. -Cont Tac/MMF/Pred. Cteph (Chronic Thromboembolic Pulmonary Hypertension) (Formerly [facility]) - 09/02/2015 (B priority) Anticoagulation Management Encounter - 04/29/2013 (H priority) Vte (Venous Thromboembolism) - 01/24/2013 (H priority) Comment: 2 PE's noted on OSH scan- not felt to be PE's from [facility] read NO clots noted on duplex Angiogram pulm by IR felt to be suggestive of chronic small PEs Plan: - lovenox injections - bridging to warfarin, now on warfarin 4 mg, INR 1.1 Pressure Ulcer of Sacrum - 06/08/2015 (I priority) Comment: Noted 06/08. Wound care consulted: stage III decubitus ulcer, sacrum 07/10: Debrided per plastics A/P: Wound care following. Offloading and W-D Dakins dressing per Plastics recs. Migraine Without Aura - 11/18/2013 (K priority) Post-Op Pain - 06/27/2015 (M priority) Comment: S/P Lung Transplant A/P: Pain noted in sacrum and right wrist. Pain somewhat controlled on Dilaudid [place]ER and Oxycodone, supplement as needed. 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) Use of Anticoagulants - 06/09/2020 Comment: PAC Referring MD: Lynne Talampas Sleep-Related Hypoventilation - 01/23/2019 ABHIJIT (obstructive sleep apnea) AHI 9.6 - 01/21/2019 Comment: TOM Pollack # [phone]------FAX# [phone] Lung Transplant Complication (Hcc) - 10/23/2018 Obesity, Class II, Bmi 35-39.9 - 03/05/2018 Neuropathy - 09/01/2016 Foot Drop, Bilateral - 09/01/2016 Impaired Mobility - 09/01/2016 Social History Tobacco Use Smoking status: Never Smokeless tobacco: Never Vaping Use Vaping Use: Never used Substance Use Topics Alcohol use: Yes Comment: Seldom Drug use: No Review of Systems Respiratory: Negative for cough and chest tightness. Cardiovascular: Negative for chest pain and palpitations. OBJECTIVE LMP 01/10/2023 Physical Exam Constitutional: General: She is awake. She is not in acute distress. Appearance: She is not ill-appearing, toxic-appearing or diaphoretic. Comments: During the virtual visit she is alert, oriented, breathing is quiet and not labored, no apparent distress, she speaks in full sentences. Neurological: Mental Status: She is alert. Psychiatric: Behavior: Behavior is cooperative. ASSESSMENT/PLAN: 1. Seasonal allergic rhinitis, unspecified trigger - ICD9: 477.9, ICD10: J30.2 (primary diagnosis) Try adding Astepro. - AZELASTINE 137 MCG (0.1 %) NASAL SPRAY AEROSOL 2. Pain and swelling of right lower leg - ICD9: 729.5, 729.81, ICD10: M79.661, M79.89 For the most part resolved, lasix PRN ok for short term use. - FUROSEMIDE 20 MG TABLET 3. Fall, subsequent encounter - ICD9: V58.89, E888.9, ICD10: W19.XXXD Overall doing well from recent fall. 4. custodial (current) use of anticoagulants - ICD9: V58.61, ICD10: Z79.01 Repeat INR in 2 weeks (plan for 03/13 with the holiday) since last INR was 2.0 Patient verbalizes understanding of instructions from today's visit and in agreement with treatment plan. Questions answered. Agrees to call the office if symptoms do not improve or if they worsen. Return if symptoms worsen or fail to improve, for Keep next scheduled appointment.. Patient has consented to patient-provider interaction via telephone/virtual visit for the medical decision making documented in this telephone/virtual visit encounter. Total Time Spent: 15 minutes documented in this encounter [facility] 03-01-2023 Miscellaneous Notes Tacrolimus level was therapeutic at 6.5. Current dose is 1.5/1. Would recommend no change to current dose. Recheck labs in 2 months. Jackelyn Yost RPh Transplants: 05/29/2015 (Lung) Lab Results Component Value Date FK506 6.5 02/28/2023 CREAT 1.07 (H) 02/28/2023 K 4.2 02/28/2023 WBC 8.51 02/28/2023 ABSNEUT 5.81 02/28/2023 CMVCPY Not detected 02/28/2023 tacrolimus IR (PROGRAF) 0.5 mg capsule 90 capsule 3 01/03/2023 Sig: Take 1 capsule by mouth every morning. Disp Refills Start End tacrolimus IR (PROGRAF) 1 mg capsule 270 capsule 3 01/03/2023 Sig: Take 1 capsule by mouth every morning AND 1 capsule every evening. documented in this encounter [facility] 02-28-2023 Miscellaneous Notes PATIENT NOTIFIED OF SAME. Tracker updated. Ok to continue with that dose but would recommend a repeat INR in 1 week since INR has been so labile. Spoke with patient and she did hold the doses as instructed but starting on 02/20/23 she took 5mg on Tues and Sat and 7.5 mg all other days. Patient states reason did not repeat INR on 02/20/23 was due to being out of town. INR with labs today is stable at 2.0, can we please verify how she took her coumadin dosing this last week since last update we advised to hold dosing on 02/17, 02/18, and 02/19 then repeat INR 02/20 to get further instructions but no INR was done until today 02/28. documented in this encounter [facility] 02-10-2023 Miscellaneous Notes Patient notified. States she has been taking as instructed as 5 mg Tues, Thurs, Sat and 7.5 mg all other days. Advised new dosing. Verbalized understanding. INR is still low for her at 1.6, I have that right now she is taking her coumadin as 5 mg Tues, Thurs, Sat and 7.5 mg all other days. Please verify that is how she is taking it and if she is taking it that way since INR is so low, she should start taking 7.5 mg every day of the week now and repeat INR in 1 week. documented in this encounter [facility] 02-08-2023 Miscellaneous Notes Pt called and is notified of providers message and instructions. Pt voices understanding. Melissa Cornelius RN Please let her know standing orders for INR checks have been placed, she should be able to have it drawn any time now. Pt is requesting an INR test. There is no active order in her chart. Please advise and call patient once test has been orderd. Thank you Zully LEONARDO documented in this encounter [facility] 01-24-2023 History of Presen t illness Narrative Radiology Service Progress Note PATIENT NAME: Hannah Stapleton DATE OF SERVICE: January 24, 2023 TIME: 11:42 AM PATIENT IDENTITY VERIFICATION COMPLETED USING TWO (2) IDENTIFIERS: Name and Date of confirmed by patient verbally. FALL SCREENING: Has the patient had 2 falls in the last year or 1 fall with injury or currently using an Ambulatory Assistive Device (Walker, Cane, Wheelchair, Crutches, etc.)? Yes, Patient High Risk for Falls What interventions were put in place to prevent falls during this visit? Instructed Patient to Call for Help if Needed, Offered Assistance with Transfers/Clothing, and Increased Observations by Caregivers PATIENT GENDER DATA: Female. status: : No status: NO. PATIENT RELEVANT IMPLANT DATA REVIEWED: Yes RADIOLOGY DEPARTMENT: General X-ray: Exam(s) Completed: Lower Extremity X-Ray(s): Knee, AP / Lat / Tunne / Merchant Right and Wt. Bearing PERIPHERAL IV DATA: Not applicable SIGNED BY: RT Michelle(R) January 24, 2023 11:42 AM documented in this encounter [facility] 01-13-2023 History of Presen t illness Narrative This note was created using [employer]. Subjective Hannah Stapleton is a 27 year old female. HISTORY Hannah Stapleton is a 27 year old lady here for yearly exam and follow up appointment. Wellbutrin has helped with depression symptoms. Endocrinology switched from Wellbutrin to Ozempic. Still wants to stay on Wellbutrin but will need from here. Lexapro helps for anxiety. Racing thoughts controlled with this. Alerday tried stopping med but needed resumed. Working on drinking more water. Depression Screening 10/19/2021 07/11/2022 12/22/2022 01/13/2023 PHQ-2 Score 2 2 2 2 PHQ-9 Score 9 12 - - PEDRO-2 Total Score - 4 - - PEDRO-7 Total Score - 11 - - Depression screening tool completed and reviewed. Based on score and interview, patient is already diagnosed with depression. Screening tool discussed with patient, and I recommended continuing current plan of care. PAST MEDICAL HISTORY Diagnosis Date Chronic thromboembolic pulmonary hypertension (HCC) 2012 Lung transplant recipient ([facility]) Migraine Obesity, Class II, BMI 35-39.9 03/05/2018 ABHIJIT (obstructive sleep apnea) AHI 9.6 01/21/2019 Pulmonary embolism (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) 06/22/2015 Current Outpatient Medications Medication Sig tacrolimus IR (PROGRAF) 0.5 mg capsule Take 1 capsule by mouth every morning. tacrolimus IR (PROGRAF) 1 mg capsule Take 1 capsule by mouth every morning AND 1 capsule every evening. warfarin (COUMADIN) 5 mg tablet 7.5 mg every day except 5 mg on Monday. Adjust as directed semaglutide (OZEMPIC) 0.25 mg or 0.5 mg (2 mg/3 mL) pen Inject 0.25 mg subcutaneously one time a week. for 4 weeks then increase to 0.5 mg/week Insulin [place], Disposable, (BD ULTRAFINE III MINI PEN) 31 gauge x 3/16 1 Each one time a week. sulfamethoxazole-trimethoprim (BACTRIM,SEPTRA) 400-80 mg per tablet TAKE 2 TABLETS BY MOUTH 3 TIMES A WEEK ergocalciferol 50,000 unit capsule (VITAMIN D2, DRISDOL) Take 1 capsule by mouth once a week escitalopram oxalate (LEXAPRO) 10 mg tablet Take 1.5 tablets by mouth once daily. predniSONE (DELTASONE) 5 mg tablet Take 1 tablet by mouth once daily. fluticasone (FLONASE) 50 mcg/actuation nasal spray Use 2 Sprays in each nostril as needed. propranolol (INDERAL) 20 mg tablet Take 1 tablet by mouth three times daily. pantoprazole DR (PROTONIX) 40 mg tablet Take 1 tablet by mouth twice daily. atorvastatin (LIPITOR) 20 mg tablet Take 1 tablet by mouth once daily. azithromycin (ZITHROMAX Z-ARMINDA) 250 mg tablet Take 1 tablet by mouth every Monday,Monday,Monday. montelukast (SINGULAIR) 10 mg tablet TAKE 1 TABLET BY MOUTH ONCE DAILY AT BEDTIME azaTHIOprine (IMURAN) 50 mg tablet Take 1 tablet by mouth once daily gabapentin (NEURONTIN) 300 mg capsule TAKE 2 CAPSULES BY MOUTH WITH BREAKFAST, 2 CAPS AT NOON AND 3 CAPS AT BEDTIME ondansetron (ZOFRAN) 4 mg tablet Take 1 tablet by mouth every 12 hours as needed. ferrous sulfate 325 mg (65 mg iron) tablet Take 1 tablet by mouth once daily. calcium carbonate (CALCIUM 500) 500 mg calcium (1,250 mg) tablet 2000 mg daily levocetirizine (XYZAL) 5 mg tablet Take 1 tablet by mouth once daily. acetaminophen 325 mg cap Take by mouth. BIPAP Supplies, suitable mask per pt preference, chin strap, head gear, humidity, heated tubing, filters, lifetime supplies. G47.33 ABHIJIT BIPAP IPAP max 16, EPAP min 5 with PS 4-6 cmH2O, suitable mask per pt preference, chin strap, head gear, humidity, tubing, lifetime supplies. G47.33 ABHIJIT MULTIVIT-MINERALS/FOLIC ACID (WOMEN'S MULTIVITAMIN GUMMIES ORAL) Take by mouth once daily. magnesium oxide (MAGOX) 400 mg tablet Take 1 tablet by mouth twice daily. cyanocobalamin (VITAMIN B-12) 1,000 mcg tab Take 1 tablet by mouth once daily. BIOTIN ORAL Take by mouth. MELATONIN ORAL Take by mouth. folic acid 1 mg tablet Take 1 tablet by mouth once daily. Current Facility-Administered Medications Medication Dose Route Frequency perflutren lipid microspheres 1.3 mL in NaCl (PF) 0.9% 10 mL injection (DEFINITY) INTRAVENOUS DIRECTED PRN sodium chloride 0.9 % (flush) 10 mL (BD POSIFLUSH) 10 mL INTRAVENOUS DIRECTED PRN ALLERGIES Allergen Reactions Nickel Rash rash Pollen Other: See Comments nose runs Cefzil [Cefprozil] Hives Fentanyl Mental Status Change Patient reports anger issues Lyrica [Pregabalin] Contraindication-Medical Surgical Lack of efficacy. Pain worse and needed to go back to gabapentin Nsaids (Non-Steroid* Contraindication-Medical Surgical FAMILY HISTORY Problem Relation Age of Onset Headache Mother Thyroid Mother other (sarcoidosis) Mother derm Psoriasis Father Diabetes Father Headache Maternal Grandmother Thyroid Maternal Grandmother Dementia Maternal Grandmother Macular Degen Maternal Grandmother Social History Tobacco Use Smoking status: Never Smokeless tobacco: Never Vaping Use Vaping Use: Never used Substance Use Topics Alcohol use: Yes Comment: Seldom Drug use: No Review of Systems Objective BP 132/88 Pulse 97 Temp 36.4 C (97.5 F) Resp 18 Ht 170.5 cm (5' 7.13 ) Wt 124.7 kg (275 lb) LMP 01/10/2023 SpO2 98% BMI 42.91 kg/m Last 5 Encounter Wt Readings: Date: Wt: 01/13/2023 124.7 kg (275 lb) 01/03/2023 123.8 kg (273 lb) 09/30/2022 122.3 kg (269 lb 9.6 oz) 08/17/2022 114.8 kg (253 lb) 06/28/2022 114.3 kg (252 lb) No waist measurement recorded Estimated body mass index is 42.91 kg/m as calculated from the following: Height as of this encounter: 170.5 cm (5' 7.13 ). Weight as of this encounter: 124.7 kg (275 lb). Last 5 Encounter BP Readings: Date: BP: 01/13/2023 132/88 01/03/2023 139/85 09/30/2022 122/80 08/17/2022 129/87 06/28/2022 140/90 Physical Exam Vitals reviewed. Constitutional: Appearance: Normal appearance. She is well-developed. She is obese. HENT: Head: Normocephalic and atraumatic. Right Ear: External ear normal. Left Ear: External ear normal. Nose: Nose normal. Eyes: Conjunctiva/sclera: Conjunctivae normal. Neck: Thyroid: No thyromegaly. Vascular: No carotid bruit. Cardiovascular: Rate and Rhythm: Normal rate and regular rhythm. Pulses: Normal pulses. Heart sounds: Normal heart sounds. No murmur heard. No friction rub. No gallop. Pulmonary: Effort: Pulmonary effort is normal. Breath sounds: Normal breath sounds. Abdominal: General: Bowel sounds are normal. There is no distension. Palpations: Abdomen is soft. There is no mass. Tenderness: There is no abdominal tenderness. Musculoskeletal: General: No deformity. Normal range of motion. Lymphadenopathy: Cervical: No cervical adenopathy. Skin: General: Skin is warm and dry. Coloration: Skin is not jaundiced or pale. Findings: No rash. Neurological: General: No focal deficit present. Mental Status: She is alert and oriented to person, place, and time. Cranial Nerves: No cranial nerve deficit. Sensory: No sensory deficit. Motor: No abnormal muscle tone. Coordination: Coordination normal. Deep Tendon Reflexes: Reflexes normal. Psychiatric: Attention and Perception: Attention and perception normal. Mood and Affect: Mood normal. Speech: Speech normal. Behavior: Behavior normal. Thought Content: Thought content normal. Cognition and Memory: Cognition and memory normal. Judgment: Judgment normal. Component Latest Ref Rng & Units 08/15/2022 08/30/2022 01/02/2023 WBC 3.70 - 11.00 k/uL 9.40 11.16 (H) 9.77 RBC 3.90 - 5.20 m/uL 4.27 4.37 4.49 Hemoglobin 11.5 - 15.5 g/dL 14.4 14.5 14.9 Hematocrit 36.0 - 46.0 % 42.5 44.6 44.6 MCV 80.0 - 100.0 fL 99.5 102.1 (H) 99.3 MCH 26.0 - 34.0 pg 33.7 33.2 33.2 MCHC 30.5 - 36.0 g/dL 33.9 32.5 33.4 RDW-CV 11.5 - 15.0 % 15.0 15.0 12.8 Platelet Count 150 - 400 k/uL 256 285 234 MPV 9.0 - 12.7 fL 11.2 10.9 11.0 Neut% % 65.8 66.9 64.9 Abs Neut (ANC) 1.45 - 7.50 k/uL 6.18 7.45 6.34 Lymph% % 23.0 22.8 18.5 Abs Lymph 1.00 - 4.00 k/uL 2.16 2.55 1.81 [place]% % 7.3 6.1 11.2 Abs [place] <0.87 k/uL 0.69 0.68 1.09 (H) Eosin% % 2.9 3.0 4.0 Abs Eosin <0.46 k/uL 0.27 0.34 0.39 Baso% % 0.6 0.6 0.8 Abs Baso <0.11 k/uL 0.06 0.07 0.08 Immature Gran % % 0.4 0.6 0.6 IMMATURE GRANS (ABS) <0.10 k/uL 0.04 0.07 0.06 NRBC /100 WBC 0.0 0.0 0.0 Absolute nRBC <0.01 k/uL <0.01 <0.01 <0.01 DTYPE Auto Auto Auto Protein, Total 6.3 - 8.0 g/dL 7.2 7.3 7.3 Albumin 3.9 - 4.9 g/dL 4.0 4.1 4.3 Calcium 8.5 - 10.2 mg/dL 8.9 9.2 9.7 Bilirubin, Total 0.2 - 1.3 mg/dL 0.5 0.3 0.6 Alkaline Phosphatase 34 - 123 U/L 60 60 81 AST 13 - 35 U/L 20 26 24 ALT 7 - 38 U/L 18 24 25 Glucose 74 - 99 mg/dL 77 76 89 BUN 7 - 21 mg/dL 23 (H) 20 22 (H) Creatinine 0.58 - 0.96 mg/dL 1.10 (H) 1.03 (H) 0.99 (H) Sodium 136 - 144 mmol/L 140 141 141 Potassium 3.7 - 5.1 mmol/L 4.2 4.0 3.7 Chloride 97 - 105 mmol/L 106 (H) 105 104 CO2 22 - 30 mmol/L 23 23 25 Anion Gap 9 - 18 mmol/L 11 13 12 eGFR >=60 mL/min/1.73m 70 76 79 Cholesterol, Total <200 mg/dL 184 127 Triglyceride <150 mg/dL 108 119 HDL Cholesterol >39 mg/dL 47 48 Non HDL Cholesterol <130 mg/dL 137 (H) 79 Fasting Time hrs 10 12 VLDL Cholesterol <30 mg/dL 22 24 TC:HDL Ratio <5.10 3.91 2.65 LDL Cholesterol <100 mg/dL 115 (H) 55 LDL:HDL Ratio <2.54 2.45 1.15 CMV DNA Not Detected CMV DNA Not Detected by PCR CMV DNA Not Detected by PCR Not detected EBV DNA Result EBV DNA not detected. EBV DNA Not Detected by PCR. EBV DNA Not Detected by PCR. EBV DNA Not Detected by PCR. Magnesium 1.7 - 2.3 mg/dL 1.9 1.6 (L) Tacrolimus/FK506 5.0 - 20.0 ng/mL 11.0 7.1 6.8 Results to Follow See [facility] report to follow See [facility] report to follow Ferritin 14.7 - 205.1 ng/mL 96.0 PT INR 2.0 IgG 700 - 1,600 mg/dL 1,366 TSH 0.270 - 4.200 mIU/L 2.030 T4 5.5 - 10.2 ug/dL 8.0 Vitamin D 25 Hydroxy 31.0 - 80.0 ng/mL 73.6 Assessment and Plan Encounter Diagnosis ICD-10-CM 1. Recurrent major depressive disorder, in full remission ([facility]) F33.42 2. Anxiety F41.9 controlled well; no panic attacks in past year or so 3. ABHIJIT (obstructive sleep apnea) AHI 9.6 G47.33 Get back on track with better sleep and using BiPAP routinely 4. 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) Z94.2 Follows routinely with providers 5. Class 3 severe obesity due to excess calories with body mass index (BMI) of 40.0 to 44.9 in adult, unspecified whether serious comorbidity present ([facility]) E66.01 Z68.41 6. CTEPH (chronic thromboembolic pulmonary hypertension) ([facility]) I27.24 7. Immunosuppression ([facility]) D84.9 Patient here for yearly exam and follow up. Above issues addressed with patient. Patient involved in shared decision making for management of medical issues. History and medications reviewed. Epic updated as needed Refills taken care of and meds adjusted as indicated after reviewed history, exam and labs. Health Maintenance reviewed. Updated record and/or ordered tests as recorded. Encouraged on efforts at healthy diet and regular exercise and adequate sleep. Needs to keep working on diet and exercise with lifestyle changes for effective weight loss as well as prevention of DM, and control of BP and lipids. Continue follow up with transplant team. Continue present meds. Further evaluation and treatment as indicated. I spent a total of 30 minutes on the date of the service which included preparing to see the patient, [id number] patient care, completing clinical documentation, obtaining and/or reviewing separately obtained history, performing a medically appropriate examination, counseling and educating the patient/family/caregiver, and ordering medications, tests, or procedures. 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 Ro. 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 Lymph nodes with focal granulomatous lymphadenitis. COMMENT Multiple Movat stains were evaluated. The etiology of the foci of granulomatous vasculitis is uncertain; a drug reaction is a consideration. Dr. Joellen Cruz from the cardiovascular pathology service has also reviewed this case. Teo Carter M.D POST TRANSPLANT EVENTS CMV: DONOR+ / RECIPIENT- EBV: DONOR+ / RECIPIENT+ PGD SCORE: PGD Score T0: Grade 3 (VV ECMO) PGD Score T12: Grade 3 (VV ECMO) PGD Score T24: Grade 3 (VA ECMO) PGD Score T48: Grade 3 (VA ECMO) PGD Score T72: Grade 3 (VA ECMO) POD #0 - Transplanted - Started on VVECMO - post op hypoxia. Hypotensive - pressors- open chest- > intra op bleeding. On Vanco and Cipro. 05/30/15 - OR- Bleeding - [id number] exploration-> Large amount of blood clots. 05/31/15 - VVECMO switched to VAECMO. Bleeding -> Large amount of blood products. Start ATG.-> to a total of 3 doses. 06/01/15 - Vascular consult -> LUE ischemia-> Start heparin 06/02/15 - Attempt to wean from ECMO. 06/03/15 - VA ECMO weaned. VVECMO initiated. Chest washout at bedside. 06/08/15 - Chest closure. Re- opened @ bedside overnight 06/15/15 - ECMO decannulated. 06/17/15 - Bronch : Removal of thick secretions 06/28/15 - TCT trial started. 07/01/15 - MMF increased to 750 mg BID. Stop Kepra - No seizures on EEG. 07/07/15 - Worsening of R effusion - No TAP. Plastic consult for R hand injured due to propofol infiltration. 07/10/15 - Airway -> Mild to moderate amount of mucus. Airway normal. Debridement of necrotic ulcer on decubitus ulcer - sacrum and coccyx aerea. 07/11/15 - Abdominal distention - start trial of Reglan 07/13/15 - Therapeutic paracentesis -> 2000 mL . MMF held due to diarrhea. C.diff -> Neg. 07/16/15 - Bronch - A0B0 - Anastomosis healing well. 07/20/15 - Downsize trach. Transferred to J82. 07/26/15 - Add Imuran 25 mg daily - pt not tolerating MMF. 07/29/15 - D/C Corpak 07/30/15 - C/o nausea. D/C to M80. 08/04/15 - GES-> Normal rate of gastric emptying. 07/13/15 - D/c for M80 to home HOSPITAL ADMIT 10/23-: Admitted from OPD with decreased PFT and fevers. CXR notable for RLL PNA. Started on empiric IV steroid pulse followed by taper. FK held due to high levels. Restarted on 0.5 BID at discharge. Transitioned to oral levaquin for 14 days and discharged in stable condition. Blood cultures + MSSA - treated with Linezolid 600mg BID for 7 days. Last Bronchoscopy: 10/11/18: AXBX, biopsies show foci of partial obliteration of vascular structures and extensive granulomatous inflammation in the vascular santana. 07/02/18: A0BX Will defer surveillance bronchs due to anticoagulation. 3 month is due on 08/28/15 07/16/15 - A0B0 - Anastomosis healing well. 07/10/15 - Airway -> Mild to Moderate amount of mucus. Normal airway DSA: 01/03/23: Pending 08/16/22: No Donor specific HLA antibody was detected 06/24/22: No Donor specific HLA antibody was detected 02/16/22: No Donor specific HLA antibody was detected 07/20/21: No Donor specific HLA antibody was detected 11/10/20: No Donor specific HLA antibody was detected 03/28/19: No Donor specific HLA antibody was detected 11/08/18: No Donor specific HLA antibody was detected 10/23/18: No Donor specific HLA antibody was detected 07/02/18: No Donor specific HLA antibody was detected 11/09/17: No Donor specific HLA antibody was detected 07/27/17: No Donor specific HLA antibody was detected 04/11/17: No Donor specific HLA antibody was detected 11/14/16: No Donor specific HLA antibody was detected 09/01/16: No Donor specific HLA antibody was detected 12/17/15: No Donor specific HLA antibody was detected 07/27/15: No Donor specific HLA antibody was detected 07/02/15: No Donor specific HLA antibody was detected 06/15/15: No Donor specific HLA antibody was detected Allergies: Nickel; Pollen; Cefzil [Cefprozil] Current Outpatient Medications Medication Sig semaglutide (OZEMPIC) 0.25 mg or 0.5 mg (2 mg/3 mL) pen Inject 0.25 mg subcutaneously one time a week. for 4 weeks then increase to 0.5 mg/week Insulin [place], Disposable, (BD ULTRAFINE III MINI PEN) 31 gauge x 3/16 1 Each one time a week. sulfamethoxazole-trimethoprim (BACTRIM,SEPTRA) 400-80 mg per tablet TAKE 2 TABLETS BY MOUTH 3 TIMES A WEEK ergocalciferol 50,000 unit capsule (VITAMIN D2, DRISDOL) Take 1 capsule by mouth once a week escitalopram oxalate (LEXAPRO) 10 mg tablet Take 1.5 tablets by mouth once daily. predniSONE (DELTASONE) 5 mg tablet Take 1 tablet by mouth once daily. fluticasone (FLONASE) 50 mcg/actuation nasal spray Use 2 Sprays in each nostril as needed. propranolol (INDERAL) 20 mg tablet Take 1 tablet by mouth three times daily. pantoprazole DR (PROTONIX) 40 mg tablet Take 1 tablet by mouth twice daily. atorvastatin (LIPITOR) 20 mg tablet Take 1 tablet by mouth once daily. azithromycin (ZITHROMAX Z-ARMINDA) 250 mg tablet Take 1 tablet by mouth every Monday,Monday,Monday. montelukast (SINGULAIR) 10 mg tablet TAKE 1 TABLET BY MOUTH ONCE DAILY AT BEDTIME azaTHIOprine (IMURAN) 50 mg tablet Take 1 tablet by mouth once daily gabapentin (NEURONTIN) 300 mg capsule TAKE 2 CAPSULES BY MOUTH WITH BREAKFAST, 2 CAPS AT NOON AND 3 CAPS AT BEDTIME ondansetron (ZOFRAN) 4 mg tablet Take 1 tablet by mouth every 12 hours as needed. ferrous sulfate 325 mg (65 mg iron) tablet Take 1 tablet by mouth once daily. calcium carbonate (CALCIUM 500) 500 mg calcium (1,250 mg) tablet 2000 mg daily levocetirizine (XYZAL) 5 mg tablet Take 1 tablet by mouth once daily. acetaminophen (TYLENOL) 325 mg cap Take by mouth. BIPAP Supplies, suitable mask per pt preference, chin strap, head gear, humidity, heated tubing, filters, lifetime supplies. G47.33 ABHIJIT BIPAP IPAP max 16, EPAP min 5 with PS 4-6 cmH2O, suitable mask per pt preference, chin strap, head gear, humidity, tubing, lifetime supplies. G47.33 ABHIJIT MULTIVIT-MINERALS/FOLIC ACID (WOMEN'S MULTIVITAMIN GUMMIES ORAL) Take by mouth once daily. magnesium oxide (MAGOX) 400 mg tablet Take 1 tablet by mouth twice daily. cyanocobalamin (VITAMIN B-12) 1,000 mcg tab Take 1 tablet by mouth once daily. BIOTIN ORAL Take by mouth. MELATONIN ORAL Take by mouth. folic acid 1 mg tablet Take 1 tablet by mouth once daily. tacrolimus IR (PROGRAF) 0.5 mg capsule Take 1 capsule by mouth every morning. tacrolimus IR (PROGRAF) 1 mg capsule Take 1 capsule by mouth every morning AND 1 capsule every evening. warfarin (COUMADIN) 5 mg tablet 7.5 mg every day except 5 mg on Monday. Adjust as directed Current Facility-Administered Medications Medication Dose Route Frequency perflutren lipid microspheres 1.3 mL in NaCl (PF) 0.9% 10 mL injection (DEFINITY) INTRAVENOUS DIRECTED PRN sodium chloride 0.9 % (flush) 10 mL (BD POSIFLUSH) 10 mL INTRAVENOUS DIRECTED PRN Interval History: Patient seen for a 4 month follow up. On 09/30/22 patient called with persistent cough. Went to local [place] emergency department and tested negative for covid, influenza and RSV. Managed with OTC medication. On 10/13/22 she have visit with Dr. Zaman and Lexapro was increased to 15 mg daily due to continued anxiety. Had follow up on 12/01 with no changes in treatment plan. Presents today ambulatory and on RA. Fractured left foot early in the year and was wearing boot, but that has come off and is now using her usual leg braces. No longer doing PT and doing minimal exercise. Denies SOB at rest but has some with exertion. Patient denies frequent coughing, sputum or wheezing. Home spirometry checked a couple times a week FEV 1 1.7-1.8 and FVC 3.1-3.4 PFTs down 2% since last visit. BP not being checked at home. BP today 139/85 and HR 86. Denies chest pain, very rare heart palpitations, denies edema but intermittently wearing compression stockings. Pt states appetite is good. Weight is up 4 lbs since last visit, Body mass index is 44.06 kg/m . Follows with metabolic weight loss and was started on Ozempic 0.25 mg on 12/16/22. Wellbutrin and Trexan stopped. Occasional nausea after taking meds and not eating, zofran helps relieve. Some heartburn but has improved since November, having a couple times a month. Patient has been working with a Therapist locally since June 2017, and has been following with Dr. Zaman at [facility]. Had VV on 12/01 and no follow up scheduled currently. Takes occasional Melatonin prn, averages 7 hrs per night. Has a BiPap, got a new machine since the recall. Uses it periodically, 3 times a month. Pateint had been using bilateral leg braces for neuropathy- continues to use. Patient no longer following with pain clinic or neuro and continues on gabapentin. Of Note: Tested Covid 19 positive 10/19/21, received antibody infusion through PCP. ID: CMV Donor Pos/ Recipient Neg. EBV Donor Pos/ Recipient Pos. Currently on Valcyte 900mg Daily which is now completed. On Bactrim SS on Monday and Fridays. REVIEW OF SYSTEMS GENERAL: No weight loss, malaise or fevers HEENT: Occasional headaches, No changes in hearing or vision, no nose bleeds or other nasal problems NECK: Negative for lumps, goiter, pain and significant neck swelling RESPIRATORY: Negative for cough, hemoptysis, wheezing, COPD, dyspnea or shortness of breath CARDIOVASCULAR: Negative for chest pain, leg swelling, hypertension, CHF or palpitations GI: No nausea, vomiting, or diarrhea : No history of dysuria, frequency or incontinence MUSCULOSKELETAL: Negative for joint pain or swelling, back pain or muscle pain SKIN: Negative for lesions, rash, and itching PSYCH: Negative for sleep disturbance, mood disorder and recent psychosocial stressors HEMATOLOGY/LYMPHOLOGY: Negative for prolonged bleeding, bruising easily or swollen nodes ENDOCRINE: Negative for cold or heat intolerance, polyuria, polydipsia and goiter NEURO: No history of headaches, syncope, paralysis, seizures or tremors PATIENT TRANSPLANT KARNOFSKY INDEX AND LANSKY SCALE 80% - Normal activity with effort: some symptoms of disease. 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 Envelope 11/12/20, 12/03/20, 05/26/21, 01/27/22 bivalent 06/28/22, 01/03/23 Prevnar 13: 11/17/21 Pneumovax: 03/05/2018 Shingrix: #1 #2 Health Maintenance: Pap: 07/2020 WN, 07/20/21 - reminded 08/17/22, 01/03/23 Negative for intraepithelial lesion or malignancy Mammogram: no d/t age COLONOSCOPY: Not done due to age BMD: 02/17/22 IMPRESSION: THE LOWEST Z-SCORE IS -1.1 IN THE LEFT HIP DIAGNOSIS: Normal bone mass Stable bone mass in spine. Increased bone mass in hip. Bone Health: 12/22/22 Based on normal BMD and mechanism of fall, treatment is not recommended. Will continue annual monitoring. Optimize calcium and vitamin D. Calcium 1200 to 1500 mg daily recommended- if cannot achieve this through diet, then supplement recommended in divided doses. Continue vitamin D. Weight bearing exercise as tolerated recommended. Fall precautions discussed. Repeat bmd on same machine as prior after 02/28/2023. DERM: 03/18/21 - RTC 3-4 months for lesion on left breast. 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 She will in the meantime stay on Adcirca and Tracleer. She will in the meantime have IV diuresis in the hospital and even consider paracentesis to remove ascites. She will continue to follow with Coumadin to keep her INR between 2 - 3. She will return to see us after hospital discharge. Bone Team - 2018 PRE - GERD TESTING: ESOPHAGEAL MONOMETRY:too ill GASTRIC EMPTYIN04/22/15 IMPRESSION: EVIDENCE OF NORMAL RATE OF GASTRIC EMPTYING OF SOLID MEAL. PH PROBE: too ill POST- GERD TESTING: EGD 05/16/18: Interpretation / Findings Normal study. SI is negative for cough 09/18. GES 08/04/15 --> Normal rate of gastric emptying PH probe 10/15/15 IMPRESSION: Normal high resolution esophageal manometry Esophageal Manometry 10/14/15 [place] Score Channel 1 Normal ? 14.72 (95th percentile) 1.0 Procedure Description PH probe 10/2015 OFF Protonix 40 mg once a day for 7 days Interpretation / Findings Normal study. No symptoms reported. Repeat Ph Probe [id number]: Procedure Description off protonix 40 mg , tums 7 days Interpretation / Findings Normal study. SI is negative for cough 09/18. EGD with Gomez 09/25/18: Interpretation / Findings Normal study, however, evidence of acid reflux in upright position on Day 1 only. SI shows negative correlation to Heartburn: 0/1 and Regur/32. Pulmonary Function Test: Date 01/03/23 FVC (L) 2.63 3.21 4.01 4.84 65 FEV1 (L) 1.76 2.71 3.38 4.03 52 LLX00-46 (L/sec) 0.85 2.40 3.71 5.24 22 Time (sec) 7.91 Date 08/17/22 FVC 4.01 3.21 4.85 2.55 63 FEV1 3.39 2.72 4.04 1.86 54 USO03-38 3.73 2.41 5.25 1.20 32 Time 7.16 Date 06/28/22 FVC 3.96 3.17 4.79 2.48 62 FEV1 3.35 2.69 3.99 1.74 51 LOL88-91 3.70 2.40 5.22 1.03 27 Time 9.50 Date 02/17/22 FVC 2.71 3.17 3.97 4.79 68.3 FEV1 1.95 2.70 3.36 4.00 58.2 FYC82-85 1.25 2.41 3.72 5.23 33.6 FET 13.76 Date 11/17/21 FVC 2.53 3.17 3.97 4.79 63.9 FEV1 1.87 2.70 3.36 4.00 55.5 ZKR63-81% L/s 1.33 2.42 3.73 5.24 35.5 WSJ879% sec 8.09 DLCO_SBml/(min*m15.85 19.16 25.66 32.16 61.8 DLCOcSBml/(min*m15.95 19.16 25.66 32.16 62.2 Date [id number] FVC 2.79 3.17 3.97 4.79 70.3 FEV1 2.01 2.70 3.37 4.01 59.8 GNB78-85 1.31 2.43 3.74 5.26 35.1 FSE750 9.66 Date 457323 FVC 2.83 3.17 3.97 4.80 71.2 FEV1 2.11 2.71 3.37 4.01 62.5 QCC79-38% L/s 1.56 2.45 3.76 5.27 41.6 NIO091% sec 13.28 Date FVC 2.84 3.17 3.97 4.80 71.6 FEV1 2.07 2.71 3.37 4.02 61.4 ZOS84-17% 1.44 2.46 3.77 5.28 38.2 IBM911% 12.54 Date 554710 FVC 2.61 3.17 3.97 4.80 65.8 FEV1 1.91 2.71 3.38 4.03 56.5 UXC10-44% 1.30 2.47 3.78 5.30 34.2 FET 9.84 Date [id number] review of home spirometry for VV FVC:3.5L FEV1:1.6L Date 379890 FVC 2.48 3.18 3.97 4.80 62.5 FEV1 1.95 2.72 3.39 4.04 57.6 KDY69-62% L/s 1.84 2.50 3.81 5.33 48.1 UJY121% sec 7.47 Date 138533 FVC L 2.68 3.18 3.97 4.80 67.3 FEV1 L 2.08 2.73 3.39 4.04 61.4 SBK28-72% L/s 1.86 2.51 3.83 5.34 48.5 SIH985% sec 9.07 Date 246262 FVC 2.52 3.17 3.97 4.80 63.6 FEV1 2.02 2.73 3.39 4.04 59.6 UHX95-97 2.04 2.52 3.83 5.34 53.1 NJR703 9.60 Date 893805 FVC L 2.88 3.17 3.97 4.80 72.4 FEV1 L 2.18 2.73 3.40 4.04 64.2 IPV32-41% L/s 1.73 2.53 3.85 5.35 44.9 HLF527% sec 14.14 Date 733099 FVC 3.93 3.21 4.65 2.74 70 FEV 1 3.37 2.76 3.98 2.16 64 F25/75 3.68 2.40 4.96 2.02 55 FET 15.31 Date 091136 FVC 3.93 3.21 4.65 1.98 50 FEV 1 3.37 2.76 3.98 1.53 45 MMEF 3.68 2.40 4.96 1.19 32 FET 8.14 Date 062469 FVC 3.93 3.21 4.65 2.88 73 FEV 1 3.37 2.76 3.98 2.12 63 F25/75 3.68 2.40 4.96 1.53 42 FET 14.01 Date 258942 FVC 3.93 3.21 4.65 2.95 75 FEV 1 3.37 2.76 3.98 2.38 71 F25/75 3.68 2.40 4.96 2.27 62 FET 13.84 Date 657457 FVC 3.93 3.21 4.65 2.64 67 FEV 1 3.37 2.76 3.98 2.15 64 F25/75 3.68 2.40 4.96 2.16 59 FET 8.39 Date 438565 FVC 4.03 3.30 4.76 2.98 74 FEV 1 3.45 2.83 4.07 2.42 70 MMEF 3.72 2.41 5.04 2.17 58 FET 8.99 Date 621570 FVC 4.03 3.30 4.76 3.04 75 FEV 1 3.45 2.83 4.07 2.43 71 F25/75 3.72 2.41 5.04 2.41 65 FET 11.30 Date 648702 FVC 4.03 3.30 4.76 3.01 75 FEV 1 3.46 2.84 4.08 2.43 70 MMEF 3.75 2.44 5.07 2.28 61 FET 12.16 Date 731541 FVC 4.03 3.30 4.76 2.99 74 FEV 1 3.46 2.84 4.08 2.43 70 MMEF 3.75 2.44 5.07 2.44 65 FET 7.12 Date 043614 FVC 4.03 3.30 4.76 2.96 73 FEV 1 3.46 2.84 4.08 2.47 71 F25/75 3.75 2.44 5.07 2.51 67 FET 8.22 Date 049972 FVC 4.03 3.29 4.76 2.88 72 FEV 1 3.47 2.85 4.09 2.44 70 F25/75 3.78 2.47 5.10 2.57 68 FET 7.83 Date 739923 FVC 4.03 3.29 4.76 2.85 71 FEV 1 3.47 2.85 4.09 2.40 69 F25/75 3.78 2.47 5.10 2.49 66 FET 10.62 Date 412127 FVC 4.03 3.29 4.76 3.00 75 FEV 1 3.47 2.85 4.09 2.51 72 F25/75 3.78 2.47 5.10 2.67 71 FET 9.03 Date 405711 FVC 4.03 3.29 4.76 2.68 67 FEV 1 3.47 2.85 4.09 2.27 65 F25/75 3.78 2.47 5.10 2.58 68 FET 7.87 Date 495206 FVC 4.03 3.29 4.76 2.64 66 FEV 1 3.49 2.86 4.11 2.20 63 F25/75 3.81 2.50 5.12 2.24 59 FET 6.82 Date 431938 FVC 4.03 3.29 4.76 2.59 64 FEV 1 3.49 2.86 4.11 2.31 66 F25/75 3.81 2.50 5.12 3.16 83 FET 5.84 Date 673426 FVC 4.03 3.29 4.76 2.51 62 FEV 1 3.49 2.86 4.11 2.24 64 F25/75 3.81 2.50 5.12 2.85 75 FET 6.63 Date 426408 FVC 4.03 3.29 4.76 2.25 56 FEV 1 3.49 2.86 4.11 1.97 56 F25/75 3.81 2.50 5.12 2.52 66 FET 7.87 Date 641947 FVC 4.03 3.29 4.76 1.81 45 FEV 1 3.49 2.86 4.11 1.68 48 F25/75 3.81 2.50 5.12 2.58 68 FET 5.55 Date 023223 FVC 4.03 3.29 4.76 1.79 45 FEV 1 3.49 2.86 4.11 1.66 48 F25/75 3.81 2.50 5.12 2.24 59 FET 5.65 Date 643919 FVC 4.03 3.29 4.76 1.78 44 FEV 1 3.49 2.86 4.11 1.64 47 F25/75 3.81 2.50 5.12 2.70 71 FET 6.03 Date 15 Pre Transplant FVC 4.02 3.29 2.61 65 FEV 1 3.50 2.88 2.16 62 F25/75 3.84 2.52 2.37 62 FET 8.23 CHEST XRAY 01/03/23. Reviewed by Dr. Daly: Lungs and pleura: Bilateral lung transplant. Mild prominence of interstitial markings in the perihilar regions with normal bilateral lung volumes, possibly nonspecific bronchial wall thickening. No focal consolidation, pleural effusion, or pneumothorax. Cardiomediastinal silhouette: Stable cardiomediastinal silhouette with tricuspid annuloplasty. Bones and soft tissues: Median sternotomy IMPRESSION: No acute radiographic abnormality. Physical Exam: Pleasant, young female. Overweight, BMI 44.06 (Gained 20 Ibs). Not in acute distress. Not pale, icteric or cyanotic. No digital clubbing. Head: Normal. No thyromegaly, no sinus tenderness. No significant peripheral lymphadenopathy. Skin: No rash, areas of erythema or unusual skin lesions. Heart sounds: Distant. S1S2, no S3 or murmurs. Lungs: Fair air entry both lung sibley. No extra sounds. Abdomen: Soft. No areas of tenderness. No organomegaly. No ascites. No pedal edema. 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 Alert. Oriented to person, place and time. No focal deficits. ASSESSMENT: 27 year old female. S/p Bilateral lung transplant 05/29/2015 for PAH/ CTEPH with granulomatous vasculopathy. Did have transbronchial biopsies in September 2018 which revealed focal obliteration of vascvular structures and extensive granulomatous inflammation in the vascular santana. Established stable CLAD/TOMI. History of anxiety for which she sees Dr. David Zaman in Transplant Psychiatry Clinic. Significant post transplant obesity. Saw Dr. Marshall in Endocrinology Clinic on 12/16/22 and was started on Ozempic. Mild exertional dyspnea. No cough. Stable PFTs. No change in Chest imaging. Immunosuppression: Prednisone. Prograf. Imuran. Antimicrobial prophylaxis: Bactrim. Valcyte. Labs: WBC 9.77. Hgb/HCT 14.9/44.6. Platelets 234,000. Alb 4.3. AST 24. ALT 25. Glu 89. BUN 22. Cr 0.99. K 3.7. Mg 1.6. T4 8.0. TSH 2.03. Cholesterol 127. Triglycerides 119. LDL 55. PLAN: Encouraged to increase exercise as tolerated. Awaiting Prograf level. To follow up with Dr. Marshall and Dr. Zaman. To return to clinic in 4 months. Given bivalent COVID booster vaccine today. Jeni A. Akindipe, M.D Staff Physician documented in this encounter [facility] 12-22-2022 History of Presen t illness Narrative Images from the original note were not included. Osteoporosis and Metabolic Bone Disease Date of Service: 12/22/2022 Patient: Hannah Stapleton Medical Record: [id number] Primary Care Physician: Lynne Chan MD Last Rheumatology visit: 02/17/2022 (with Bone Density) History of Present Illness Hannah Stapleton is a 27 year old White female who presents on 12/22/2022 for a virtual visit for evaluation of Osteoporosis (Screening). I have communicated my name and active licensure. The patient's identity and physical location were verified at the time of this visit. INTERVAL HISTORY Patient presents today for follow-up. No new fractures. Has had some falls due to tripping on dog. No planned dental procedures - Last appointment: Summer 2021 Walks dog 1-2x/day for 10-15 minutes. 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 She has history of severe neuropathy and foot drop. Patient presents in with L foot in boot on a scooter. Patient had fracture L fifth metatarsal in 02/2021 after tripping due to her foot drop (not wearing her brace). She stepped down on a twisted foot. Due to poor healing, Tashia has been using a bone stimulator which is helping the healing process. Osteoporosis History Patient has a history of fracture(s) Lower Extremity Fracture (Comment: Fractured left 5th metatarsal due to tripping (caused by foot drop)) Date: 02/2021 Most Recent BMD Date: 02/17/22 LS Z-Score: 0.3 stable L Hip Z-Score: -1.1 increase VFA: No fracture Daily Calcium diet: 642 mg Daily Calcium supplementation: 400 mg (Comment: and in MVI) Daily Vitamin D: (Comment: 50,000 units every other week) Current Multivitamin: Yes Transplant patient: lung Bilateral lung transplant on 05/29/2015 due to pulmonary hypertension Dental: No planned dental procedures. Link to [employer] Website RAPID 3 [place] Activities of Daily Living 12/22/2022 11:10 AM 11/16/2021 9:14 PM Dress self? Without ANY difficulty Without ANY difficulty Get in and out of bed? Without ANY difficulty Without ANY difficulty Walk outdoors? With SOME difficulty With MUCH difficulty Wash and dry body? Without ANY difficulty With SOME difficulty Get in and out of car? With SOME difficulty With SOME difficulty Tobacco Use Never smoked or used smokeless tobacco. Vaping Use Never used Alcohol Use Yes. Comments: Seldom TREATMENT HISTORY Osteoporosis - Antiresorptive Treatments Treatment Start Date Stop Date Stop Reason Comment None Osteoporosis - Anabolic Treatments Treatment Start Date Stop Date Stop Reason Comment None History of Radiation: No RISK FACTORS Osteoporosis FRAX Risk Factors Fracture(s) Lower Extremity Fracture (Comment: Fractured left 5th metatarsal due to tripping (caused by foot drop)) Date: 02/2021 Family History of osteoporosis (Comment: Grandfather fractures hip) No parent with a hip fracture Not a current smoker Glucocorticoid use (Comment: 5 mg prednisone daily) Current use No rheumatoid arthritis Secondary osteoporosis No alcohol use more than 3 units per day Osteoporosis Medication Risk Factors No use of Furosemide Proton pump inhibitor Osteoporosis Disease-Specific Risk Factors Weight is not less than 127 lbs No height loss normal balance Fall history Fall Date Description / Comment 03/2021 Fell while using crutches - no fractures No history of eating disorders No history of renal calculi Caffeine intake: (Comment: not daily) Exercise routine: no regular exercise program (Comment: In cast since 02/2021) BONE DENSITY RESULTS Last Bone Density DXA-AXIAL SKELETON WITH VFA Exam End: 02/17/2022 8:17 AM (Final result) Narrative: * * *Final Report* * * DATE OF EXAM: Feb 17 2022 8:17AM M5B 0802 - BD VFA W DXA - AXIAL SKEL -NB / PROCEDURE REASON: multiple diagnoses * * * * Physician Interpretation * * * * EXAMINATION: DXA BONE DENSITOMETRY BD VFA W DXA - AXIAL SKEL -NB CLINICAL HISTORY: DIAGNOSTIC Care after organ transplant Lung transplant status, bilateral (HCC) Bronchiolitis obliterans syndrome (HCC) Class 1 obesity without serious comorbidity with body mass index (BMI) of 34.0 to 34.9 in adult, unspecified obesity type. DXA Model: A50 [employer] (S/N: [id number]) SITE SCANNED: Lumbar spine, left hip, VFA Date Scanned: 02/17/2022 8:17 AM RESULT: Lumbar spine (L1-L4): 1.220 g/cm2, Z-score 0.3 Lumbar spine: 12/03/20: 1.259 g/cm2 Lumbar spine: 10/17/19: 1.282 g/cm2 Lumbar spine change: Stable bone mass Left Femoral Neck: 0.941 g/cm2, Z-score -0.6 Left Femoral Neck: 12/03/20: 0.897 g/cm2 Left Femoral Neck: 10/17/19: 0.951 g/cm2 Left Femoral Neck Change: +0.044 g/cm2, +4.9 %, significant increase Left Total Hip: 0.860 g/cm2, Z-score -1.1 Left Total Hip: 12/03/20: 0.872 g/cm2 Left Total Hip: 10/17/19: 0.906 g/cm2 Left Total Hip change: Stable bone mass [id number] VFA: Levels visualized, no fracture Impression: IMPRESSION: THE LOWEST Z-SCORE IS -1.1 IN THE LEFT HIP DIAGNOSIS: Normal bone mass Stable bone mass in spine. Increased bone mass in hip. FRACTURE RISK: Possibly increased based on steroid therapy RISK FACTORS: This patient is a 26 years Female. MENSTRUAL STATUS: She reports menstrual status of pre-menopausal The patient reports the following risk factors associated with low bone mass or increased fracture risk: - previous fracture: foot - previous organ transplant - Lungs - current steroid therapy The patient reports the following: - calcium intake - vitamin D intake RECOMMENDATIONS: Based on the patient age, bone density and risk factors: - ACR guidelines (Dmitri et al. Arth Care Res 2010) recommend for low risk and prednisone >7.5mg, treatment with a bisphosphonate is recommended. - a bisphosphonate should be considered in this patient depending on the anticipated dose and duration of steroid therapy, clinical correlation is required. - the patient should take calcium, the recommended dose is 1913-2386 mg per day along with 800-1000 IU vitamin D (some patients may require higher doses of vitamin D). LIMITATIONS: - Steroid therapy may increase fracture risk independent of bone mass. FOLLOW-UP: Recommended in 1 year if on steroids cc. Dr. [employer] Spreading Machine Operator: sens Transcribe Date/Time: Feb 17 2022 8:17A Dictated by : LEONCIO GONZALEZ MD This examination was interpreted and the report reviewed and electronically signed by: LEONCIO GONZALEZ MD on Feb 17 2022 10:31AM EST BONE DENSITY RESULTS: EXTERNAL WOMEN / ESTROGEN Age of Menarche: 13 years Menstrual history: (Comment: prior to transplant did not have regular periods for 2 years, peroids regular since after transplant) Menopause status: pre-menopausal Previous estrogen use: none Hysterectomy: No Ovaries: intact Breast cancer: No Family history of breast cancer: No OB History 0 Para 0 Term 0 0 AB 0 Living 0 SAB 0 IAB 0 Ectopic 0 Multiple 0 Live Births Patient-Entered Data PAIN EVALUATION No data found in the last 1 encounters. PROMIS Assessments PROMIS Assessments 12/16/2022 12/16/2022 12/22/2022 Physical Health Percentile 41 % 41 % - Mental Health Percentile 13 % 13 % - Pain Score 4 4 - Pain Interference Percentile - - 24 % Fatigue Percentile - - 16 % Physical Function Percentile - - 14 % RAPID 3 [place] Activities of Daily Living 12/22/2022 11:10 AM 11/16/2021 9:14 PM Dress self? Without ANY difficulty Without ANY difficulty Get in and out of bed? Without ANY difficulty Without ANY difficulty Walk outdoors? With SOME difficulty With MUCH difficulty Wash and dry body? Without ANY difficulty With SOME difficulty Get in and out of car? With SOME difficulty With SOME difficulty RAPID 3 Disease Activity Weighed Score Levels: 0 - 1: Near Remission 1.3 - 2.0: Low Severity 2.3 - 4.0: Moderate Severity 4.3 - 10.0: High Severity RAPID-3 Weighed Score 10/17/2019 11/16/2021 12/22/2022 RAPID 3 Weighed Score 2.6 - - RAPID 3 Weighed Score - 3.61 (Moderate Severity (MS)) 3.89 (Moderate Severity (MS)) PHQ-9 0 - 4: Minimal Depression 5 - 9: Mild Depression 10 - 14: Moderate Depression 15 - 19: Moderately Severe Depression 20 - 27: Severe Depression PHQ-9 10/19/2021 07/11/2022 12/22/2022 PHQ-2 Score 2 2 2 PHQ-9 Score 9 12 - Review of Systems Review of Systems CONSTITUTION: Positive for: Recent weight change Negative for: Fever HEENT: Positive for: Nosebleeds and Dry mouth Negative for: Mouth sores and Trouble swallowing RESPIRATORY: Positive for: Cough and Shortness of breath Negative for: Pain with breathing and Coughing up blood GASTROINTESTINAL: Positive for: Diarrhea Negative for: Melena, Heartburn and Abdominal pain MUSCULOSKELETAL: Positive for: Muscle weakness and Morning Joint Stiffness Negative for: Arthralgias, Myalgias and Joint swelling NEUROLOGICAL: Positive for: Headaches and Numbness Negative for: Memory loss SKIN: Negative for: Rash, Skin changes, Hair loss and Nail changes EYES: Negative for: Eye pain, Eye redness, Eye dryness and visual disturbance CARDIOVASCULAR: Negative for: Chest pain and Leg swelling GENITOURINARY: Negative for: Dysuria and Hematuria HEMATOLOGIC/LYMPHATIC: Negative for: Swollen glands Jaw pain: No All other reviewed and negative other than HPI. Past Medical History PAST MEDICAL HISTORY Diagnosis Date Chronic thromboembolic pulmonary hypertension (HCC) 2012 Lung transplant recipient (HCC) Migraine Obesity, Class II, BMI 35-39.9 03/05/2018 ABHIJIT (obstructive sleep apnea) AHI 9.6 01/21/2019 Pulmonary embolism (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 Seizure (HCC) 06/22/2015 Past Surgical History PAST SURGICAL HISTORY Procedure Laterality Date BERGERON CATHETER IR IVC FILTER PLACEMENT 02/01/2013 Vena Tech Permanent Filter LUNG TRANSPLANT,DOUBLE 05/29/15 Annuloplasty ring PAST SURGICAL HISTORY OF 12/2016 root canal Family History FAMILY HISTORY Problem Relation Age of Onset Headache Mother Thyroid Mother other (sarcoidosis) Mother derm Psoriasis Father Diabetes Father Headache Maternal Grandmother Thyroid Maternal Grandmother Dementia Maternal Grandmother Macular Degen Maternal Grandmother Social History Social History Tobacco Use Smoking status: Never Smokeless tobacco: Never Vaping Use Vaping Use: Never used Substance Use Topics Alcohol use: Yes Comment: Seldom Drug use: No Current Medications Present Osteoporosis Medications: Current Calcium, Multivitamin, and Vitamin D Use on File Minerals and Electrolytes - Calcium Replacement Start End calcium carbonate (CALCIUM 500) 500 mg calcium (1,250 mg) tablet 07/20/2021 Si mg daily Class: Med Update Vitamins - D Derivatives Start End ergocalciferol 50,000 unit capsule (VITAMIN D2, DRISDOL) 10/19/2022 Sig: Take 1 capsule by mouth once a week Multivitamin and Mineral Combinations Start End MULTIVIT-MINERALS/FOLIC ACID (WOMEN'S MULTIVITAMIN GUMMIES ORAL) Sig - Route: Take by mouth once daily. - ORAL Class: Historical Med Current Outpatient Medications Medication Sig semaglutide (OZEMPIC) 0.25 mg or 0.5 mg (2 mg/3 mL) pen Inject 0.25 mg subcutaneously one time a week. for 4 weeks then increase to 0.5 mg/week Insulin [place], Disposable, (BD ULTRAFINE III MINI PEN) 31 gauge x 3/16 1 Each one time a week. sulfamethoxazole-trimethoprim (BACTRIM,SEPTRA) 400-80 mg per tablet TAKE 2 TABLETS BY MOUTH 3 TIMES A WEEK ergocalciferol 50,000 unit capsule (VITAMIN D2, DRISDOL) Take 1 capsule by mouth once a week escitalopram oxalate (LEXAPRO) 10 mg tablet Take 1.5 tablets by mouth once daily. predniSONE (DELTASONE) 5 mg tablet Take 1 tablet by mouth once daily. fluticasone (FLONASE) 50 mcg/actuation nasal spray Use 2 Sprays in each nostril as needed. propranolol (INDERAL) 20 mg tablet Take 1 tablet by mouth three times daily. pantoprazole DR (PROTONIX) 40 mg tablet Take 1 tablet by mouth twice daily. atorvastatin (LIPITOR) 20 mg tablet Take 1 tablet by mouth once daily. azithromycin (ZITHROMAX Z-ARMINDA) 250 mg tablet Take 1 tablet by mouth every Monday,Monday,Monday. tacrolimus IR (PROGRAF) 1 mg capsule Take 2 capsules by mouth every morning AND 1 capsule every evening. tacrolimus IR (PROGRAF) 0.5 mg capsule Take 1 capsule by mouth every evening. montelukast (SINGULAIR) 10 mg tablet TAKE 1 TABLET BY MOUTH ONCE DAILY AT BEDTIME oseltamivir (TAMIFLU) 75 mg capsule Take 1 capsule by mouth twice daily. valGANciclovir (VALCYTE) 450 mg tablet Take 2 tablets by mouth once daily. warfarin (COUMADIN) 5 mg tablet Take 1.5 tablets by mouth once daily. Adjust as directed azaTHIOprine (IMURAN) 50 mg tablet Take 1 tablet by mouth once daily gabapentin (NEURONTIN) 300 mg capsule TAKE 2 CAPSULES BY MOUTH WITH BREAKFAST, 2 CAPS AT NOON AND 3 CAPS AT BEDTIME ondansetron (ZOFRAN) 4 mg tablet Take 1 tablet by mouth every 12 hours as needed. warfarin (COUMADIN) 7.5 mg tablet take 7.5 mg Tues, Thurs, Sat, Sun , and 11.25 Mon, Wed, Fri ferrous sulfate 325 mg (65 mg iron) tablet Take 1 tablet by mouth once daily. calcium carbonate (CALCIUM 500) 500 mg calcium (1,250 mg) tablet 2000 mg daily levocetirizine (XYZAL) 5 mg tablet Take 1 tablet by mouth once daily. acetaminophen (TYLENOL) 325 mg cap Take by mouth. BIPAP Supplies, suitable mask per pt preference, chin strap, head gear, humidity, heated tubing, filters, lifetime supplies. G47.33 ABHIJIT BIPAP IPAP max 16, EPAP min 5 with PS 4-6 cmH2O, suitable mask per pt preference, chin strap, head gear, humidity, tubing, lifetime supplies. G47.33 ABHIJIT MULTIVIT-MINERALS/FOLIC ACID (WOMEN'S MULTIVITAMIN GUMMIES ORAL) Take by mouth once daily. magnesium oxide (MAGOX) 400 mg tablet Take 1 tablet by mouth twice daily. cyanocobalamin (VITAMIN B-12) 1,000 mcg tab Take 1 tablet by mouth once daily. BIOTIN ORAL Take by mouth. MELATONIN ORAL Take by mouth. folic acid 1 mg tablet Take 1 tablet by mouth once daily. Current Facility-Administered Medications Medication Dose Route Frequency perflutren lipid microspheres 1.3 mL in NaCl (PF) 0.9% 10 mL injection (DEFINITY) INTRAVENOUS DIRECTED PRN sodium chloride 0.9 % (flush) 10 mL (BD POSIFLUSH) 10 mL INTRAVENOUS DIRECTED PRN Labs Calcium Latest Ref Rng & Units 07/11/2022 07/25/2022 08/15/2022 08/30/2022 CA 8.5 - 10.2 mg/dL 9.0 9.4 8.9 9.2 Alkaline Phosphatase Latest Ref Rng & Units 07/11/2022 07/25/2022 08/15/2022 08/30/2022 ALKPHOS 34 - 123 U/L 60 60 60 60 ALKALINE PHOSPHATASE 34 - 123 U/L 60 60 60 60 TSH Latest Ref Rng & Units 03/05/2018 02/11/2020 12/09/2020 03/04/2022 TSH 0.270 - 4.200 mIU/L 1.830 2.430 1.420 1.690 Testosterone Latest Ref Rng & Units 08/09/2014 TESTFREE 1.0 - 9.0 pg/mL <1.7 TESTOST 20 - 70 ng/dL <12(L) Vitamin D Latest Ref Rng & Units 10/02/2018 10/17/2019 12/09/2020 11/26/2021 VITAMIN D 25 HYDROXY 31.0 - 80.0 ng/mL 96.5(H) 50.9 82.1(H) 85.7(H) Creatinine Latest Ref Rng & Units 07/11/2022 07/25/2022 08/15/2022 08/30/2022 CREAT 0.58 - 0.96 mg/dL 1.07(H) 1.00(H) 1.10(H) 1.03(H) NTXS 6.2 - 19.0 nM BCE - - - - FSH Latest Ref Rng & Units 08/09/2014 FSH mU/mL 7.1 Protein, Total Latest Ref Rng & Units 07/11/2022 07/25/2022 08/15/2022 08/30/2022 PTH 15 - 65 pg/mL - - - - TPROT 6.3 - 8.0 g/dL 7.0 6.9 7.2 7.3 Albumin Latest Ref Rng & Units 07/11/2022 07/25/2022 08/15/2022 08/30/2022 ALB 3.9 - 4.9 g/dL 4.2 4.1 4.0 4.1 PTH Latest Ref Rng & Units 10/08/2014 07/25/2015 11/26/2021 PTH, INTACT 15 - 65 pg/mL 106(H) 9(L) 84(H) Immunoglobulins Latest Ref Rng & Units 10/08/2014 04/23/2015 IGA 78 - 391 mg/dL 176 166 Hepatitis Screen Latest Ref Rng & Units 04/23/2015 05/05/2015 06/02/2015 06/23/2015 HEPASY <0.10 IU/mL - 0.53(H) <0.10 0.17(H) HEPATO Negative Positive(A) - - - HEPBCOTOL Negative Negative - - - HEPSABQ Negative Negative - - - HEPCABEIA Negative Negative - - - HBSAGR Negative Negative - - - Imaging Last XR Lumbar Spine - Impression Only No resulted procedures found. Last XR Thoracic Spine - Impression Only No resulted procedures found. Last CT Lumbar Spine - Impression Only No resulted procedures found. Last CT Thoracic Spine - Impression Only No resulted procedures found. Last MRI Lumbar Spine - Impression Only No resulted procedures found. Last MRI Thoracic Spine - Impression Only No resulted procedures found. Health Maintenance BP CONTROLLED (<130/80) Never done SHINGRIX VACCINE(1 of 2) Never done DEPRESSION ASSESSMENT Never done ANNUAL PCP TEAM CHRONIC DISEASE VISIT due on 01/12/2023 PAP TESTING due on 08/12/2024 PNEUMOCOCCAL(3 - PPSV23 if available, else PCV20) due on 11/17/2026 DTAP,TDAP,TD(8 - Td or Tdap) due on 04/10/2028 HEPATITIS B Completed HPV VACCINE Completed INFLUENZA Completed HEPATITIS C SCREENING Completed HIV SCREENING Completed COVID-19 VACCINE Completed Physical Exam Virtual visit: Patient appeared well. 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 Patient has never been treated for low bone mass. Calcium intake is adequate. 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 Will continue annual monitoring. Optimize calcium and vitamin D. Calcium 1200 to 1500 mg daily recommended- if cannot achieve this through diet, then supplement recommended in divided doses. Continue vitamin D. Weight bearing exercise as tolerated recommended. Fall precautions discussed. Repeat bmd on same machine as prior after 02/28/2023. Continued f/u with PCP for routine health maintenance advised. Orders this visit: [facility] on 12/22/22 DXA-AXIAL SKELETON VITAMIN D 25 HYDROXY CROSS-LINK N-TELOPEP Return in about 1 year (around 12/23/2023). Medical Decision Making: Problems: Low: Stable chronic illness Data: Unique test result(s) reviewed: 1 Unique test(s) ordered: 3+ Risk: Low: Low risk from testing/treatment Medical Decision Making Level: 3 - Low Pari Pop PA-C Date: December 22, 2022 documented in this encounter [facility] 12-16-2022 History of Presen t illness Narrative Hannah Jorge Stapleton is here today for a following for weight management. virtual zoom 2:51-3:10 I have communicated my name and active licensure. The patient's identity and physical location were verified at the time of this visit. Either the patient or their legal electronics parts sales representative has been informed of the risks and benefits of -- and alternatives to -- treatment through a remote evaluation and consents to proceed with the evaluation remotely. S: Being followed for the following comorbidities: Sleep Apnea and Other lung transplant on psmf and bupropion 300 mg and naltrexone 50 mg/d Type of exercise:walking until fx foot now better after 1 year Support at home: y, any stressors at home: n Support at work: na Exercising: about to start, regularly for no Support at home: y, any stressors at home: n Support at work: y Status of comorbidities: Total weight lost thus far: 0 pounds Started program on : the last BMI'S: There is no height or weight on file to calculate BMI. the last CMP : Glucose (mg/dL) Date Value 08/30/2022 76 10/04/2021 71 Potassium (mmol/L) Date Value 08/30/2022 4.0 10/04/2021 3.9 Sodium (mmol/L) Date Value 08/30/2022 141 10/04/2021 142 Chloride (mmol/L) Date Value 08/30/2022 105 10/04/2021 107 CO2 (mmol/L) Date Value 08/30/2022 23 10/04/2021 25 Creatinine (mg/dL) Date Value 08/30/2022 1.03 10/04/2021 1.09 BUN (mg/dL) Date Value 08/30/2022 20 10/04/2021 18 Anion Gap (mmol/L) Date Value 08/30/2022 13 10/04/2021 10 Calcium (mg/dL) Date Value 10/04/2021 9.7 Calcium, Total (mg/dL) Date Value 08/30/2022 9.2 Protein, Total (g/dL) Date Value 08/30/2022 7.3 10/04/2021 7.3 Albumin (g/dL) Date Value 08/30/2022 4.1 10/04/2021 4.2 Bilirubin, Total (mg/dL) Date Value 08/30/2022 0.3 10/04/2021 0.3 Alkaline Phosphatase (U/L) Date Value 08/30/2022 60 10/04/2021 56 AST (U/L) Date Value 08/30/2022 26 10/04/2021 19 ALT (U/L) Date Value 08/30/2022 24 10/04/2021 13 O: physical: wt 265 lbs ht 5'6 bmi 42.8 AppearanceWell appearing, alert, in no acute distress, well-hydrated, well nourished. and Obese Eyes normal, no erythema Neck no goiter Neuro Awake, alert and oriented x 3, No involuntary motions., and Cranial nerves II-XII grossly intact A: Lung Replaced By Transplant (Hcc) Impaired Mobility Obesity, Class 3 Lung Transplant Complication (Hcc) ABHIJIT (obstructive sleep apnea) AHI 9.63 RTC : 3 months Scotty Marshall MD Answers submitted by the patient for this visit: Core Review of Systems (Submitted on 12/16/2022) Fever : No Night Sweats: No Recent Unintentional Weight Change: No Nasal Congestion: Yes Hearing Loss: No A Cough: Yes Difficulty Breathing?: No Chest Pain: No Irregular Heart Beat: No Leg Swelling: No Nausea: No Diarrhea: No Black Tarry Stools: No Difficulty Urinating?: No Awaken at Night More Than Once to Urinate?: No Joint Pain or Stiffness: Yes Muscle Aches: No Leg or Foot Discomfort at Night?: Yes A Rash: No Dizziness: Yes Headaches: Yes Memory Loss: No Seizures: No documented in this encounter [facility] 10-19-2022 Miscellaneous Notes The following approved medication requests have been transmitted electronically. Requested Prescriptions Pending Prescriptions Disp Refills sulfamethoxazole-trimethoprim (BACTRIM,SEPTRA) 400-80 mg per tablet [Pharmacy Med Name: Sulfamethoxazole-Trimethoprim 400-80 MG Oral Tablet] 25 tablet 3 Sig: TAKE 2 TABLETS BY MOUTH 3 TIMES A WEEK Jade Scott RN documented in this encounter [facility] 10-19-2022 Miscellaneous Notes Routing to covering provider as Dr. Marshall is out of office 10/17 - 10/21. Thank you! Requester: Pharmacy Last Endocrinology visit: 06/15/2021. Follow-up visit scheduled: Visit date not found. Requested Prescriptions Pending Prescriptions Disp Refills naltrexone (TREXAN) 50 mg tablet [Pharmacy Med Name: Naltrexone HCl 50 MG Oral Tablet] 60 tablet 0 Sig: Take 1 tablet by mouth once daily PSS NOTE: Please schedule appointment: Yes Thank you! Kira Byrd RN documented in this encounter [facility] 10-19-2022 Miscellaneous Notes The following approved medication requests have been transmitted electronically. Requested Prescriptions Pending Prescriptions Disp Refills ergocalciferol 50,000 unit capsule (VITAMIN D2, DRISDOL) [Pharmacy Med Name: Vitamin D (Ergocalciferol) 1.25 MG (20873 UT) Oral Capsule] 13 capsule 3 Sig: Take 1 capsule by mouth once a week Zack Cordero RN documented in this encounter [facility] 10-05-2022 Miscellaneous Notes Duplicate request. The following approved medication requests have been transmitted electronically. Requested Prescriptions Refused Prescriptions Disp Refills predniSONE (DELTASONE) 5 mg tablet [Pharmacy Med Name: predniSONE 5 MG Oral Tablet] 30 tablet 0 Sig: Take 1 tablet by mouth once daily. Zack Cordero RN documented in this encounter [facility] 10-05-2022 Miscellaneous Notes The following approved medication requests have been transmitted electronically. Requested Prescriptions Pending Prescriptions Disp Refills predniSONE (DELTASONE) 5 mg tablet 90 tablet 3 Sig: Take 1 tablet by mouth once daily. Zack Cordero RN documented in this encounter [facility] 09-29-2022 Miscellaneous Notes Patient called to let us know about her sore throat and cough. Her symptoms started two days ago. Her home COVID test is negative. She is unable to cough up any sputum. No fevers. She planned on trying to get an RVP done or atleast flu and RSV. She will keep us posted. Patient called asking to speak with a coordinator about cold symptoms. She took a home Covid test yesterday and it was negative. documented in this encounter [facility] 09-28-2022 Miscellaneous Notes The following approved medication requests have been transmitted electronically. Requested Prescriptions Pending Prescriptions Disp Refills fluticasone (FLONASE) 50 mcg/actuation nasal spray 16 g 11 Sig: Use 2 Sprays in each nostril as needed. Neeta Harrison RN documented in this encounter [facility] 09-16-2022 Miscellaneous Notes Addended by: SCOTTY MARSHALL on: 09/16/2022 11:27 AM Modules accepted: Orders The following approved medication requests have been transmitted electronically. Requested Prescriptions Signed Prescriptions Disp Refills buPROPion XL (WELLBUTRIN XL) 150 mg 24 hr tablet 90 tablet 3 Sig: Take 1 tablet by mouth once daily. Authorizing Provider: SCOTTY MARSHALL MD [facility] called in to let the office know patients pharmacy will not pay for patients prescription buPROPion XL (WELLBUTRIN XL) 150 mg 24 hr tablet 2 tablets per day. They will pay for 1 tablet a day. [facility] is asking for a new script for 1 tablet a day. [facility] can be reached at [phone] documented in this encounter [facility] 09-15-2022 Miscellaneous Notes Requester: Pharmacy Patients last Endocrinology visit occurred 06/15/21. Follow-up evaluation has been established n/a. Requested Prescriptions Pending Prescriptions Disp Refills buPROPion XL (WELLBUTRIN XL) 150 mg 24 hr tablet [Pharmacy Med Name: buPROPion HCl ER (XL) 150 MG Oral Tablet Extended Release 24 Hour] 60 tablet 0 Sig: Take 2 tablets by mouth once daily If patient is due for an appointment please route to provider for refill consideration and also to the endo scheduling pool. PSS NOTE: Patient needs scheduled appointment Yes documented in this encounter [facility] 09-01-2022 Miscellaneous Notes Labs reviewed with Elizabeth Casey . No medication dosage changes at this time. Patient instructed to repeat labs on 09/26. documented in this encounter [facility] 08-17-2022 History of Presen t illness Narrative PULM FUNCTION SMARTBLOCK: Provider: Jeni Daly MD Spirometry: 1 System: 3 - [id number] documented in this encounter [facility] 08-17-2022 History of Presen t illness Narrative Radiology Service Progress Note PATIENT NAME: Hannah Stapleton DATE OF SERVICE: August 17, 2022 TIME: 9:31 AM PATIENT IDENTITY VERIFICATION COMPLETED USING TWO (2) IDENTIFIERS: Name and Date of confirmed by patient verbally. FALL SCREENING: Has the patient had 2 falls in the last year or 1 fall with injury or currently using an Ambulatory Assistive Device (Walker, Cane, Wheelchair, Crutches, etc.)? No PATIENT GENDER DATA: Female. status: : No status: NO. PATIENT RELEVANT IMPLANT DATA REVIEWED: Not Applicable RADIOLOGY DEPARTMENT: General X-ray: Exam(s) Completed: GI/ Procedure(s): Esophogram with barium contrast PERIPHERAL IV DATA: Not applicable SIGNED BY: RT Hung(R) August 17, 2022 9:31 AM documented in this encounter [facility] 08-15-2022 Miscellaneous Notes PATIENT NOTIFIED OF SAME. Tracker updated Continue with Coumadin dosing unchanged. Check INR in 2 weeks Last INR: 2.0 08/15/2022 [facility] lab draw Current dose of coumadin is: 7.5 mg daily except 5 mg every Sat Last date of dose change: 05/06/22. Previous INR (date and result): 07/11/22 was 2.4 Additional Clinical Information or narrative: INR goal is 2-3. Pt findings are negative documented in this encounter [facility] 08-10-2022 Miscellaneous Notes The following approved medication requests have been transmitted electronically. Requested Prescriptions Signed Prescriptions Disp Refills buPROPion XL (WELLBUTRIN XL) 150 mg 24 hr tablet 60 tablet 0 Sig: Take 2 tablets by mouth once daily Authorizing Provider: SCOTTY MARSHALL naltrexone (TREXAN) 50 mg tablet 60 tablet 0 Sig: Take 1 tablet by mouth once daily Authorizing Provider: SCOTTY MARSHALL MD Requester: Pharmacy Last Endocrinology visit: 06/15/2021. Follow-up visit scheduled: Visit date not found. Requested Prescriptions Pending Prescriptions Disp Refills buPROPion XL (WELLBUTRIN XL) 150 mg 24 hr tablet [Pharmacy Med Name: buPROPion HCl ER (XL) 150 MG Oral Tablet Extended Release 24 Hour] 60 tablet 0 Sig: Take 2 tablets by mouth once daily naltrexone (TREXAN) 50 mg tablet [Pharmacy Med Name: Naltrexone HCl 50 MG Oral Tablet] 60 tablet 0 Sig: Take 1 tablet by mouth once daily PSS NOTE: Please schedule appointment: Yes Thank you! Kira Byrd RN documented in this encounter [facility] 08-10-2022 Miscellaneous Notes The following approved medication requests have been transmitted electronically. Requested Prescriptions Pending Prescriptions Disp Refills montelukast (SINGULAIR) 10 mg tablet [Pharmacy Med Name: Montelukast Sodium 10 MG Oral Tablet] 90 tablet 3 Sig: TAKE 1 TABLET BY MOUTH ONCE DAILY AT BEDTIME Darby Wright RN documented in this encounter [facility] 08-03-2022 Miscellaneous Notes The following approved medication requests have been transmitted electronically. Requested Prescriptions Pending Prescriptions Disp Refills predniSONE (DELTASONE) 5 mg tablet [Pharmacy Med Name: predniSONE 5 MG Oral Tablet] 30 tablet 0 Sig: Take 1 tablet by mouth once daily Matt Díaz RN documented in this encounter [facility] 07-26-2022 Miscellaneous Notes Lab results reviewed with Pharmacist Elizabeth. Patient instructed to decrease Prograf dose to 2.5 mg in the a.m. and 2 mg in the p.m. Patient instructed repeat labs on 08/08. The following approved medication requests have been transmitted electronically. Requested Prescriptions Pending Prescriptions Disp Refills tacrolimus IR (PROGRAF) 0.5 mg capsule Sig: Take 1 capsule by mouth every morning. tacrolimus IR (PROGRAF) 1 mg capsule Sig: Take 2 capsules by mouth every morning AND 2 capsules every evening. Darby Wright RN documented in this encounter [facility] 07-13-2022 Miscellaneous Notes Lab results reviewed with Dr. Daly. Patient instructed to decrease Prograf dose to 2.5 mg in the a.m. and 2.5 mg in the p.m. Patient instructed repeat labs on 07/25/22. The following approved medication requests have been transmitted electronically. Requested Prescriptions Pending Prescriptions Disp Refills tacrolimus IR (PROGRAF) 1 mg capsule Sig: Take 2 capsules by mouth every morning AND 2 capsules every evening. tacrolimus IR (PROGRAF) 0.5 mg capsule Sig: Take 1 capsule by mouth twice daily. Neeta Harrison RN documented in this encounter [facility] 07-12-2022 Miscellaneous Notes message left to pt with info. Continue with coumadin current dose unchanged and check INR in 2 weeks. Component Latest Ref Rng & Units 02/03/2022 03/04/2022 04/01/2022 05/06/2022 07/11/2022 INR (POCT) 0.8 - 1.2 2.4 (H) 2.4 (H) 2.6 (H) 3.6 (H) Internal Quality Check Acceptable Acceptable Acceptable Acceptable PT INR 2.4 Last INR: 2.4 07/11/[address] [facility] Current dose of coumadin is: 7.5 mg daily except 5 mg every Sat. Last date of dose change: .05/06/22 previous INR (date and result): 05/06/22 was 3.6 Additional Clinical Information or narrative: INR goal is 2-3. Pt findings are negative. documented in this encounter [facility] 07-07-2022 Miscellaneous Notes Requester: Pharmacy Last Endocrinology visit: 06/15/2021. Follow-up visit scheduled: Visit date not found. Requested Prescriptions Pending Prescriptions Disp Refills buPROPion XL (WELLBUTRIN XL) 150 mg 24 hr tablet [Pharmacy Med Name: buPROPion HCl ER (XL) 150 MG Oral Tablet Extended Release 24 Hour] 60 tablet 0 Sig: Take 2 tablets by mouth once daily PSS NOTE: Please schedule appointment: No Thank you! Kira Byrd RN documented in this encounter [facility] 07-06-2022 Miscellaneous Notes The following approved medication requests have been transmitted electronically. Requested Prescriptions Pending Prescriptions Disp Refills pantoprazole DR (PROTONIX) 40 mg tablet [Pharmacy Med Name: Pantoprazole Sodium 40 MG Oral Tablet Delayed Release] 180 tablet 0 Sig: Take 1 tablet by mouth twice daily Neeta Harrison RN documented in this encounter [facility] 06-28-2022 Miscellaneous Notes Labs reviewed with Dr. Gracia. No changes to her Tacrolimus indicated at the time. Patient instructed to increase Bactrim to DS MWF and Valcyte to 900 mg daily. Advised to check labs again on 07/11/22. The following approved medication requests have been transmitted electronically. Requested Prescriptions Pending Prescriptions Disp Refills sulfamethoxazole-trimethoprim (BACTRIM) 400-80 mg per tablet 78 tablet 3 Sig: Take 2 tablets by mouth three times a week. Matt Díaz RN documented in this encounter [facility] 06-28-2022 History of Presen t illness Narrative PULM FUNCTION SMARTBLOCK: Provider: Jeni Daly MD Assisting Tech: Zack Guardado RRT Spirometry: 1 System: 2 - [id number] documented in this encounter [facility] 06-27-2022 Miscellaneous Notes Labs reviewed with Elizabeth Perea and Dr. Garcia . Patient instructed to take 3mg of tacrolimus in the AM and 2.5mg in the PM. Patient instructed to have labs checked on 07/11. Pt requested 0.5 mg capsules, will send RX. The following approved medication requests have been transmitted electronically. Requested Prescriptions Pending Prescriptions Disp Refills tacrolimus IR (PROGRAF) 0.5 mg capsule 90 capsule 3 Sig: Take 1 capsule by mouth once daily. tacrolimus IR (PROGRAF) 1 mg capsule Sig: Take 3 capsules by mouth every morning AND 2 capsules every evening. Jade Scott RN documented in this encounter [facility] 06-08-[address] Daly reviewed labs. Patient advised no changes in medication and will have labs repeated on 06/28 at [facility]. documented in this encounter [facility] 05-23-2022 Miscellaneous Notes Lab results reviewed with Dr. Daly. Patient instructed to decrease Prograf dose to 3 mg in the a.m. and 2 mg in the p.m. Patient instructed repeat labs on 06/06/22. The following approved medication requests have been transmitted electronically. Requested Prescriptions Pending Prescriptions Disp Refills tacrolimus IR (PROGRAF) 1 mg capsule Sig: Take 3 capsules by mouth every morning AND 2 capsules every evening. Neeta Harrison RN documented in this encounter [facility] 05-18-2022 Miscellaneous Notes The following approved medication requests have been transmitted electronically. Requested Prescriptions Pending Prescriptions Disp Refills tacrolimus IR (PROGRAF) 1 mg capsule [Pharmacy Med Name: Tacrolimus 1 MG Oral Capsule] 540 capsule 3 Sig: Take 3 capsules by mouth twice daily. montelukast (SINGULAIR) 10 mg tablet [Pharmacy Med Name: Montelukast Sodium 10 MG Oral Tablet] 90 tablet 0 Sig: TAKE 1 TABLET BY MOUTH ONCE DAILY AT BEDTIME ergocalciferol 50,000 unit capsule (VITAMIN D2, DRISDOL) [Pharmacy Med Name: VITAMIN D2 (ERGO) 1.25MG CAP] 10 capsule 0 Sig: Take 1 capsule by mouth once a week Neeta Harrison RN documented in this encounter [facility] 08-26-2022 History of Presen t illness Narrative per pcp pt is to hold dose toda then take 5mg Sat and 7.5mg all other days patient notified via detailed message and is to contact the office with any problems or questions patient had inr completed at [facility] patients inr is 3.6 (patients inr range is 2.0-3.0) patient is currently taking 7.5mg daily patients last dose change was on 11/12/21 due to a high level of 3.8 (dose at that time was 11.25mg Wed and 7.5mg all other days) patient has had no changes in medication and no missed doses and no change in diet Advised patient that they would be contacted regarding medication dose and when to follow up after information is reviewed by provider. After provider review please contact the patient with information and schedule follow up appointment with coumadin clinic. ok to leave a detailed message if no answer FYI-patient has been scheduled for a 1 week follow up inr on 05/13/22 documented in this encounter [facility] 05-04-2022 Miscellaneous Notes The following approved medication requests have been transmitted electronically. Requested Prescriptions Signed Prescriptions Disp Refills naltrexone (TREXAN) 50 mg tablet 90 tablet 0 Sig: Take 1 tablet by mouth once daily Authorizing Provider: SCOTTY MARSHALL MD Requester: Pharmacy Last Endocrinology visit: 03/12/2021. Follow-up visit scheduled: Visit date not found. Requested Prescriptions Pending Prescriptions Disp Refills naltrexone (TREXAN) 50 mg tablet [Pharmacy Med Name: Naltrexone HCl 50 MG Oral Tablet] 90 tablet 0 Sig: Take 1 tablet by mouth once daily PSS NOTE: Please schedule appointment: Yes Thank you! Kira Byrd RN documented in this encounter [facility] 05-03-2022 Miscellaneous Notes The following approved medication requests have been transmitted electronically. Requested Prescriptions Pending Prescriptions Disp Refills azaTHIOprine (IMURAN) 50 mg tablet [Pharmacy Med Name: azaTHIOprine 50 MG Oral Tablet] 90 tablet 3 Sig: Take 1 tablet by mouth once daily Neeta Harrison RN documented in this encounter [facility] 04-18-2022 Miscellaneous Notes Patient was around her niece who tested positive today. They were together for a limited time at an outside birthday green party. Patient is currently asymptomatic. Advised her to test tomorrow and if she develops symptoms. Encouraged her to minimize contact with people in her vicinity or wear a mask. If she develops symptoms or tests positive asked her to call us so we can begin treatment. Patient left a voicemail asking to speak with a coordinator about a possible exposure to Covid. documented in this encounter [facility] 04-01-2022 History of Presen t illness Narrative pcp agrees with information patient had inr completed at [facility] patients inr is 2.6 (patients inr range is 2.0-3.0) patient is currently taking 7.5mg daily patients last dose change was on 11/12/21 due to a high level of 3.8 (dose at that time was 11.25mg Wed and 7.5mg all other days) patient has had no changes in medication and no missed doses and no change in diet Advised patient to continue on the same dose(s) and that they would only be contacted regarding dosage and follow up instructions after review with provider, if a change is needed. Written instructions given and patient verbalized understanding. Presently scheduled in 1 month (05/06/22) for follow up INR. documented in this encounter [facility] 03-17-2022 Miscellaneous Notes Okayed Last OV: 01/12/22 Next OV: 01/13/23 documented in this encounter [facility] 03-16-2022 Miscellaneous Notes The following approved medication requests have been transmitted electronically. Signed Prescriptions Disp Refills buPROPion XL (WELLBUTRIN XL) 150 mg 24 hr tablet 60 tablet 3 Sig: Take 2 tablets by mouth once daily PARAS: No Authorizing Provider: SCOTTY MARSHALL MD Requester: Pharmacy Patients last Endocrinology visit occurred 03/15/21. Follow-up evaluation has been established n/a. Pending Prescriptions Disp Refills BUPROPION XL 150 MG TAB 60 tablet 0 Sig: Take 2 tablets by mouth once daily PARAS: Yes If patient is due for an appointment please route to provider for refill consideration and also to the endo scheduling pool. PSS NOTE: Patient needs scheduled appointment Yes documented in this encounter [facility] 03-16-2022 Miscellaneous Notes The following approved medication requests have been transmitted electronically. Pending Prescriptions Disp Refills GABAPENTIN 300 MG CAPSULE 600 capsule 3 Sig: TAKE 2 CAPSULES BY MOUTH WITH BREAKFAST, 2 CAPS AT NOON AND 3 CAPS AT BEDTIME PARAS: No Neeta Harrison RN documented in this encounter [facility] 02-24-2022 Miscellaneous Notes The following approved medication requests have been transmitted electronically. Pending Prescriptions Disp Refills VALGANCICLOVIR 450 MG TABLET 90 tablet 3 Sig: Take 1 tablet by mouth once daily PARAS: Yes Zack Cordero RN documented in this encounter [facility] 02-17-2022 Miscellaneous Notes Labs reviewed with Dr. Daly . No medication dosage changes at this time as levels are currently therapeutic. Patient instructed to repeat labs on 04/11/22. 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 Ro. 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 Lymph nodes with focal granulomatous lymphadenitis. COMMENT Multiple Movat stains were evaluated. The etiology of the foci of granulomatous vasculitis is uncertain; a drug reaction is a consideration. Dr. Joellen Cruz from the cardiovascular pathology service has also reviewed this case. Teo Carter M.D POST TRANSPLANT EVENTS CMV: DONOR+ / RECIPIENT- EBV: DONOR+ / RECIPIENT+ PGD SCORE: PGD Score T0: Grade 3 (VV ECMO) PGD Score T12: Grade 3 (VV ECMO) PGD Score T24: Grade 3 (VA ECMO) PGD Score T48: Grade 3 (VA ECMO) PGD Score T72: Grade 3 (VA ECMO) POD #0 - Transplanted - Started on VVECMO - post op hypoxia. Hypotensive - pressors- open chest- > intra op bleeding. On Vanco and Cipro. 05/30/15 - OR- Bleeding - [id number] exploration-> Large amount of blood clots. 05/31/15 - VVECMO switched to VAECMO. Bleeding -> Large amount of blood products. Start ATG.-> to a total of 3 doses. 06/01/15 - Vascular consult -> LUE ischemia-> Start heparin 06/02/15 - Attempt to wean from ECMO. 06/03/15 - VA ECMO weaned. VVECMO initiated. Chest washout at bedside. 06/08/15 - Chest closure. Re- opened @ bedside overnight 06/15/15 - ECMO decannulated. 06/17/15 - Bronch : Removal of thick secretions 06/28/15 - TCT trial started. 07/01/15 - MMF increased to 750 mg BID. Stop Kepra - No seizures on EEG. 07/07/15 - Worsening of R effusion - No TAP. Plastic consult for R hand injured due to propofol infiltration. 07/10/15 - Airway -> Mild to moderate amount of mucus. Airway normal. Debridement of necrotic ulcer on decubitus ulcer - sacrum and coccyx aerea. 07/11/15 - Abdominal distention - start trial of Reglan 07/13/15 - Therapeutic paracentesis -> 2000 mL . MMF held due to diarrhea. C.diff -> Neg. 07/16/15 - Bronch - A0B0 - Anastomosis healing well. 07/20/15 - Downsize trach. Transferred to J. 07/26/15 - Add Imuran 25 mg daily - pt not tolerating MMF. 07/29/15 - D/C Corpak 07/30/15 - C/o nausea. D/C to M80. 08/04/15 - GES-> Normal rate of gastric emptying. 07/13/15 - D/c for M80 to home HOSPITAL ADMIT 10/23-: Admitted from [facility] with decreased PFT and fevers. CXR notable for RLL PNA. Started on empiric IV steroid pulse followed by taper. FK held due to high levels. Restarted on 0.5 BID at discharge. Transitioned to oral levaquin for 14 days and discharged in stable condition. Blood cultures + MSSA - treated with Linezolid 600mg BID for 7 days. Last Bronchoscopy: 10/11/18: AXBX, biopsies show foci of partial obliteration of vascular structures and extensive granulomatous inflammation in the vascular santana. 07/02/18: A0BX Will defer surveillance bronchs due to anticoagulation. 3 month is due on 08/28/15 07/16/15 - A0B0 - Anastomosis healing well. 07/10/15 - Airway -> Mild to Moderate amount of mucus. Normal airway DSA: 02/16/22: PENDING 07/20/21: No Donor specific HLA antibody was detected 11/10/20: No Donor specific HLA antibody was detected 03/28/19: No Donor specific HLA antibody was detected 11/08/18: No Donor specific HLA antibody was detected 10/23/18: No Donor specific HLA antibody was detected 07/02/18: No Donor specific HLA antibody was detected 11/09/17: No Donor specific HLA antibody was detected 07/27/17: No Donor specific HLA antibody was detected 04/11/17: No Donor specific HLA antibody was detected 11/14/16: No Donor specific HLA antibody was detected 09/01/16: No Donor specific HLA antibody was detected 12/17/15: No Donor specific HLA antibody was detected 07/27/15: No Donor specific HLA antibody was detected 07/02/15: No Donor specific HLA antibody was detected 06/15/15: No Donor specific HLA antibody was detected Allergies: Nickel; Pollen; Cefzil [Cefprozil] Current Outpatient Medications Medication Sig ergocalciferol 50,000 unit capsule (VITAMIN D2, DRISDOL) Take 1 capsule by mouth every 2 weeks. gabapentin (NEURONTIN) 300 mg capsule TAKE 2 CAPSULES BY MOUTH WITH BREAKFAST, 2 CAPSULES AT NOON, AND 3 CAPSULES AT BEDTIME. tacrolimus IR (PROGRAF) 1 mg capsule TAKE 3 CAPSULES BY MOUTH TWICE DAILY azaTHIOprine (IMURAN) 50 mg tablet Take 1 tablet by mouth once daily sulfamethoxazole-trimethoprim (BACTRIM) 400-80 mg per tablet Take 1 tab on Mondays and Fridays naltrexone (TREXAN) 50 mg tablet Take 1 tablet by mouth once daily. buPROPion XL (WELLBUTRIN XL) 150 mg 24 hr tablet Take 2 tablets by mouth once daily. ondansetron (ZOFRAN) 4 mg tablet Take 1 tablet by mouth every 12 hours as needed. propranolol (INDERAL) 20 mg tablet Take 1 tablet by mouth three times daily. warfarin (COUMADIN) 7.5 mg tablet take 7.5 mg Tues, Thurs, Sat, Sun , and 11.25 Mon, Wed, Fri fluticasone (FLONASE) 50 mcg/actuation nasal spray Use 2 Sprays in each nostril as needed. ferrous sulfate 325 mg (65 mg iron) tablet Take 1 tablet by mouth once daily. pantoprazole DR (PROTONIX) 40 mg tablet Take 1 tablet by mouth twice daily. predniSONE (DELTASONE) 5 mg tablet TAKE 1 TABLET BY MOUTH ONCE DAILY calcium carbonate (CALCIUM 500) 500 mg calcium (1,250 mg) tablet 2000 mg daily levocetirizine (XYZAL) 5 mg tablet Take 1 tablet by mouth once daily. montelukast (SINGULAIR) 10 mg tablet TAKE 1 TABLET BY MOUTH ONCE DAILY AT BEDTIME valGANciclovir (VALCYTE) 450 mg tablet Take 1 tablet by mouth once daily acetaminophen (TYLENOL) 325 mg cap Take by mouth. BIPAP Supplies, suitable mask per pt preference, chin strap, head gear, humidity, heated tubing, filters, lifetime supplies. G47.33 ABHIJIT BIPAP IPAP max 16, EPAP min 5 with PS 4-6 cmH2O, suitable mask per pt preference, chin strap, head gear, humidity, tubing, lifetime supplies. G47.33 ABHIJIT MULTIVIT-MINERALS/FOLIC ACID (WOMEN'S MULTIVITAMIN GUMMIES ORAL) Take by mouth once daily. magnesium oxide (MAGOX) 400 mg tablet Take 1 tablet by mouth twice daily. cyanocobalamin (VITAMIN B-12) 1,000 mcg tab Take 1 tablet by mouth once daily. BIOTIN ORAL Take by mouth. MELATONIN ORAL Take by mouth. folic acid 1 mg tablet Take 1 tablet by mouth once daily. Current Facility-Administered Medications Medication Dose Route Frequency perflutren lipid microspheres 1.3 mL in NaCl (PF) 0.9% 10 mL injection (DEFINITY) INTRAVENOUS DIRECTED PRN sodium chloride 0.9 % (flush) 10 mL (BD POSIFLUSH) 10 mL INTRAVENOUS DIRECTED PRN Interval History: Patient seen for a 3 month follow up in conjunction with BMD and Psych. Prior to last visit patient tested Covid 19 positive 10/19/21, received antibody infusion through PCP. Since last visit denies illness or hospitalizations. Presents to day in a walking boot and on RA. Fractured left foot and is currently wearing a boot and has follow up on Monday. Continues to do PT. Denies SOB at rest or with minimal exertion. Patient denies frequent coughing, sputum or wheezing. Home spirometry checked a couple times a week FEV 1 1.7-1.8 and FVC 3.1-3.4 PFTs up 3% since last visit. Not able to do much activety in the boot. BP at home 120's/70-80 and HR 70's. BP today 1119/79 and HR 74. Denies chest pain, very rare heart palpitations, denies edema but intermittently wearing compression stockings. Pt states appetite is good. Weight gained 13 lbs since last visit. Occasional nausea after taking meds and not eating, zofran helps relieve. Some heartburn but has improved since November, having a couple times a month. Patient has been working with a Therapist locally since June 2017, has been helping with anxiety but patient would like to see someone hear at [facility]. Takes occasional Melatonin prn, averages 7 hrs per night. Has a BiPap, got a new machine since the recall. Pateint had been using bilateral leg braces for neuropathy- continues to use. Patient no longer following with pain clinic or neuro and continues on gabapentin. ID: CMV Donor Pos/ Recipient Neg. EBV Donor Pos/ Recipient Pos. Currently on Valcyte 450mg Daily. On Bactrim SS on Monday and Fridays. 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 11/12/20, 12/03/20, 05/26/21, 01/27/22 Prevnar 13: 11/17/21 Pneumovax: 03/05/2018 Shingrix: #1 #2 Health Maintenance: Pap: 07/2020 [facility], 07/20/21 Negative for intraepithelial lesion or malignancy Mammogram: no d/t age COLONOSCOPY: Not done due to age BMD: 12/03/20 02/17/22 pending IMPRESSION: THE LOWEST Z-SCORE IS -1.0 IN THE LEFT HIP DIAGNOSIS: Normal bone mass Stable bone mass in spine. Decreased bone mass in hip Bone Health: 11/17/21 Plan: Based on normal BMD and mechanism of fall, treatment is not recommended. Will continue annual monitoring. Optimize calcium and vitamin D. Calcium 1200 to 1500 mg daily recommended- if cannot achieve this through diet, then supplement recommended in divided doses. Continue vitamin D. Weight bearing exercise as tolerated recommended. Fall precautions discussed. Repeat bmd on same machine as prior after 12/03/2021. Continued f/u with PCP for routine health maintenance advised DERM: 03/18/21 - RTC 3-4 months for lesion on left breast. 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 She will in the meantime stay on Adcirca and Tracleer. She will in the meantime have IV diuresis in the hospital and even consider paracentesis to remove ascites. She will continue to follow with Coumadin to keep her INR between 2 - 3. She will return to see us after hospital discharge. Bone Team - 2018 PRE - GERD TESTING: ESOPHAGEAL MONOMETRY:too ill GASTRIC EMPTYIN04/22/15 IMPRESSION: EVIDENCE OF NORMAL RATE OF GASTRIC EMPTYING OF SOLID MEAL. PH PROBE: too ill POST- GERD TESTING: EGD 05/16/18: Interpretation / Findings Normal study. SI is negative for cough 09/18. GES 08/04/15 --> Normal rate of gastric emptying PH probe 10/15/15 IMPRESSION: Normal high resolution esophageal manometry Esophageal Manometry 10/14/15 [place] Score Channel 1 Normal ? 14.72 (95th percentile) 1.0 Procedure Description PH probe 10/2015 OFF Protonix 40 mg once a day for 7 days Interpretation / Findings Normal study. No symptoms reported. Repeat Ph Probe [id number]: Procedure Description off protonix 40 mg , tums 7 days Interpretation / Findings Normal study. SI is negative for cough 09/18. EGD with Gomez 09/25/18: Interpretation / Findings Normal study, however, evidence of acid reflux in upright position on Day 1 only. SI shows negative correlation to Heartburn: 0/1 and Regur/32. Pulmonary Function Test: Date 02/17/22 FVC 2.71 3.17 3.97 4.79 68.3 FEV1 1.95 2.70 3.36 4.00 58.2 WJC65-51 1.25 2.41 3.72 5.23 33.6 FET 13.76 Date 11/17/21 FVC 2.53 3.17 3.97 4.79 63.9 FEV1 1.87 2.70 3.36 4.00 55.5 MQV09-90% L/s 1.33 2.42 3.73 5.24 35.5 JNG877% sec 8.09 DLCO_SBml/(min*m15.85 19.16 25.66 32.16 61.8 DLCOcSBml/(min*m15.95 19.16 25.66 32.16 62.2 Date [id number] FVC 2.79 3.17 3.97 4.79 70.3 FEV1 2.01 2.70 3.37 4.01 59.8 EVT24-64 1.31 2.43 3.74 5.26 35.1 FOO303 9.66 Date 166739 FVC 2.83 3.17 3.97 4.80 71.2 FEV1 2.11 2.71 3.37 4.01 62.5 HYD69-01% L/s 1.56 2.45 3.76 5.27 41.6 PSD759% sec 13.28 Date 11/12/ FVC 2.84 3.17 3.97 4.80 71.6 FEV1 2.07 2.71 3.37 4.02 61.4 LWO24-91% 1.44 2.46 3.77 5.28 38.2 EZX053% 12.54 Date 768584 FVC 2.61 3.17 3.97 4.80 65.8 FEV1 1.91 2.71 3.38 4.03 56.5 FOX23-54% 1.30 2.47 3.78 5.30 34.2 FET 9.84 Date 133338 review of home spirometry for VV FVC:3.5L FEV1:1.6L Date 779140 FVC 2.48 3.18 3.97 4.80 62.5 FEV1 1.95 2.72 3.39 4.04 57.6 IMK17-05% L/s 1.84 2.50 3.81 5.33 48.1 RMS513% sec 7.47 Date 179233 FVC L 2.68 3.18 3.97 4.80 67.3 FEV1 L 2.08 2.73 3.39 4.04 61.4 NUL68-67% L/s 1.86 2.51 3.83 5.34 48.5 NEF591% sec 9.07 Date 742400 FVC 2.52 3.17 3.97 4.80 63.6 FEV1 2.02 2.73 3.39 4.04 59.6 CTT15-34 2.04 2.52 3.83 5.34 53.1 WIY478 9.60 Date 832909 FVC L 2.88 3.17 3.97 4.80 72.4 FEV1 L 2.18 2.73 3.40 4.04 64.2 CWZ91-33% L/s 1.73 2.53 3.85 5.35 44.9 XHT668% sec 14.14 Date 458684 FVC 3.93 3.21 4.65 2.74 70 FEV 1 3.37 2.76 3.98 2.16 64 F25/75 3.68 2.40 4.96 2.02 55 FET 15.31 Date 693815 FVC 3.93 3.21 4.65 1.98 50 FEV 1 3.37 2.76 3.98 1.53 45 MMEF 3.68 2.40 4.96 1.19 32 FET 8.14 Date 989929 FVC 3.93 3.21 4.65 2.88 73 FEV 1 3.37 2.76 3.98 2.12 63 F25/75 3.68 2.40 4.96 1.53 42 FET 14.01 Date 654174 FVC 3.93 3.21 4.65 2.95 75 FEV 1 3.37 2.76 3.98 2.38 71 F25/75 3.68 2.40 4.96 2.27 62 FET 13.84 Date 005252 FVC 3.93 3.21 4.65 2.64 67 FEV 1 3.37 2.76 3.98 2.15 64 F25/75 3.68 2.40 4.96 2.16 59 FET 8.39 Date 034833 FVC 4.03 3.30 4.76 2.98 74 FEV 1 3.45 2.83 4.07 2.42 70 MMEF 3.72 2.41 5.04 2.17 58 FET 8.99 Date 014924 FVC 4.03 3.30 4.76 3.04 75 FEV 1 3.45 2.83 4.07 2.43 71 F25/75 3.72 2.41 5.04 2.41 65 FET 11.30 Date 548160 FVC 4.03 3.30 4.76 3.01 75 FEV 1 3.46 2.84 4.08 2.43 70 MMEF 3.75 2.44 5.07 2.28 61 FET 12.16 Date 031302 FVC 4.03 3.30 4.76 2.99 74 FEV 1 3.46 2.84 4.08 2.43 70 MMEF 3.75 2.44 5.07 2.44 65 FET 7.12 Date 898804 FVC 4.03 3.30 4.76 2.96 73 FEV 1 3.46 2.84 4.08 2.47 71 F25/75 3.75 2.44 5.07 2.51 67 FET 8.22 Date 904642 FVC 4.03 3.29 4.76 2.88 72 FEV 1 3.47 2.85 4.09 2.44 70 F25/75 3.78 2.47 5.10 2.57 68 FET 7.83 Date 594096 FVC 4.03 3.29 4.76 2.85 71 FEV 1 3.47 2.85 4.09 2.40 69 F25/75 3.78 2.47 5.10 2.49 66 FET 10.62 Date 136121 FVC 4.03 3.29 4.76 3.00 75 FEV 1 3.47 2.85 4.09 2.51 72 F25/75 3.78 2.47 5.10 2.67 71 FET 9.03 Date 118948 FVC 4.03 3.29 4.76 2.68 67 FEV 1 3.47 2.85 4.09 2.27 65 F25/75 3.78 2.47 5.10 2.58 68 FET 7.87 Date 470168 FVC 4.03 3.29 4.76 2.64 66 FEV 1 3.49 2.86 4.11 2.20 63 F25/75 3.81 2.50 5.12 2.24 59 FET 6.82 Date 102980 FVC 4.03 3.29 4.76 2.59 64 FEV 1 3.49 2.86 4.11 2.31 66 F25/75 3.81 2.50 5.12 3.16 83 FET 5.84 Date 046585 FVC 4.03 3.29 4.76 2.51 62 FEV 1 3.49 2.86 4.11 2.24 64 F25/75 3.81 2.50 5.12 2.85 75 FET 6.63 Date 907424 FVC 4.03 3.29 4.76 2.25 56 FEV 1 3.49 2.86 4.11 1.97 56 F25/75 3.81 2.50 5.12 2.52 66 FET 7.87 Date 180394 FVC 4.03 3.29 4.76 1.81 45 FEV 1 3.49 2.86 4.11 1.68 48 F25/75 3.81 2.50 5.12 2.58 68 FET 5.55 Date 822532 FVC 4.03 3.29 4.76 1.79 45 FEV 1 3.49 2.86 4.11 1.66 48 F25/75 3.81 2.50 5.12 2.24 59 FET 5.65 Date 668581 FVC 4.03 3.29 4.76 1.78 44 FEV 1 3.49 2.86 4.11 1.64 47 F25/75 3.81 2.50 5.12 2.70 71 FET 6.03 Date 01/15/15 Pre Transplant FVC 4.02 3.29 2.61 65 FEV 1 3.50 2.88 2.16 62 F25/75 3.84 2.52 2.37 62 FET 8.23 CHEST XRAY 02/17/2022. Reviewed by Dr. Daly: Lungs and pleura: The lungs remain clear of focal consolidation or mass. No pleural effusion or pneumothorax is identified. Cardiomediastinal silhouette: Stable cardiomediastinal silhouette. Status post median sternotomy, tricuspid annuloplasty and bilateral lung transplant. The heart size and pulmonary vascular pattern are within normal limits. Bones and soft tissues: The vertebral body heights appear symmetric and well-maintained IMPRESSION: No acute disease identified in the lungs or mediastinum. Little interval change since the exam dated 11/17/2021. Physical Exam: Pleasant, young female. Overweight, BMI 38.41 (Gained 13 Ibs). Not in acute distress. Not pale, icteric or cyanotic. No digital clubbing. Head: Normal. No thyromegaly, no sinus tenderness. No significant peripheral lymphadenopathy. Skin: No rash, areas of erythema or unusual skin lesions. Heart sounds: Distant. S1S2, no S3 or murmurs. Lungs: Good air entry both lung sibley. No extra sounds. Abdomen: Soft. No areas of tenderness. No organomegaly. No ascites. No pedal edema. Still has walking boot on left foot. 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 Alert. Oriented to person, place and time. No focal deficits. ASSESSMENT: 26 year old female. 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 Established stable CLAD/TOMI. Had evidence of foci of partial obliteration of vascular structures and extensive granulomatous inflammation in vascular [place]- likely recurrence of [place] lung disease- on biopsy in 2019. Had COVID 19 infection earlier in the year. Still has left walking boot on following foot fracture. Using bone stimulator and has follow up Orthopedic appointment next week. Does get dyspneic on more than moderate exertion. Slight improvement in PFTs compared to last study. No change in CXR. Has gained weight since last visit. Attributes this to less mobility since her fracture. Has a history of possible depression. Has transplant psychiatry appointment today with Dr. Zaman. Immunosuppression: Prograf. Prednisone.Azathioprine. Antimicrobial prophylaxis: Valcyte. Bactrim. Labs from 02/14/22: WBC 8.72. HgB/HCT 14.3/43.4. Platelets 272,000. Alb 4.3. AST 18. ALT 14. Glu 81. BUN 24. Cr 1.03. K 4.0. Mg 1.6. Cholesterol 174. Triglycerides 105. LDL 108. FK506 10.6. PLAN: Encouraged to increase exercise as tolerated. To continue present immunosuppression and repeat all labs in 2 months. To return to clinic in 4 months. Jeni Daly M.D Staff Physician documented in this encounter [facility] 02-17-2022 History of Presen t illness Narrative Patient has been identified by name and date of . Scanner [employer] [id number] Sites Scanned: Lumbar spine, Left hip and VFA Tati Wen, RT(R) Radiology Service Progress Note PATIENT NAME: Hannah Stapleton DATE OF SERVICE: February 17, 2022 TIME: 8:13 AM PATIENT IDENTITY VERIFICATION COMPLETED USING TWO (2) IDENTIFIERS: Name and Date of confirmed by patient verbally. FALL SCREENING: Has the patient had 2 falls in the last year or 1 fall with injury or currently using an Ambulatory Assistive Device (Walker, Cane, Wheelchair, Crutches, etc.)? Yes, Patient High Risk for Falls What interventions were put in place to prevent falls during this visit? Increased Observations by Caregivers PATIENT GENDER DATA: Female. status: : No status: NO. PATIENT RELEVANT IMPLANT DATA REVIEWED: Not Applicable RADIOLOGY DEPARTMENT: Bone Density PERIPHERAL IV DATA: Not applicable SIGNED BY: RT Aleksey(R) February 17, 2022 8:13 AM documented in this encounter [facility] 02-17-2022 History of Presen t illness Narrative Radiology Service Progress Note PATIENT NAME: Hannah Stapleton DATE OF SERVICE: February 17, 2022 TIME: 7:41 AM PATIENT IDENTITY VERIFICATION COMPLETED USING TWO (2) IDENTIFIERS: Name and Date of confirmed by patient verbally. FALL SCREENING: Has the patient had 2 falls in the last year or 1 fall with injury or currently using an Ambulatory Assistive Device (Walker, Cane, Wheelchair, Crutches, etc.)? No PATIENT GENDER DATA: Female. status: : No status: NO. PATIENT RELEVANT IMPLANT DATA REVIEWED: Not Applicable RADIOLOGY DEPARTMENT: General X-ray: Exam(s) Completed: Chest X-Ray PERIPHERAL IV DATA: Not applicable SIGNED BY: RT Jet(R) February 17, 2022 7:41 AM documented in this encounter [facility] 02-16-2022 Miscellaneous Notes The following approved medication requests have been transmitted electronically. Pending Prescriptions Disp Refills GABAPENTIN 300 MG CAPSULE 210 capsule 0 Sig: TAKE 2 CAPSULES BY MOUTH WITH BREAKFAST, 2 CAPSULES AT NOON, AND 3 CAPSULES AT BEDTIME. PARAS: Yes TACROLIMUS 1 MG CAPSULE, IMMEDIATE-RELEASE 540 capsule 0 Sig: TAKE 3 CAPSULES BY MOUTH TWICE DAILY PARAS: Yes Matt Díaz RN documented in this encounter [facility] 02-03-2022 History of Presen t illness Narrative Continue with Coumadin dose unchanged and check INR in 4 weeks patient had inr completed at [facility] patients inr is 2.4 (patients inr range is 2.0-3.0) patient is currently taking 7.5mg daily patients last dose change was on 11/12/21 due to a high level of 3.8 (dose at that time was 11.25mg Wed and 7.5mg all other days) patient has had no changes in medication and no missed doses and no change in diet Advised patient to continue on the same dose(s) and that they would only be contacted regarding dosage and follow up instructions after review with provider, if a change is needed. Written instructions given and patient verbalized understanding. Presently scheduled in 4 weeks (03/04/22) for follow up INR. documented in this encounter [facility] 01-27-2022 History of Presen t illness Narrative Patient presents for [facility] booster. Denies any problems at this time. Tolerated injection well. Zully Hood LPN documented in this encounter [facility] 01-20-2022 Miscellaneous Notes Labs reviewed with Dr. Garcia. No medication dosage changes at this time as the levels are currently therapeutic. Patient instructed to repeat labs on 02/17/22. documented in this encounter [facility] 01-19-2022 Miscellaneous Notes The following approved medication requests have been transmitted electronically. Pending Prescriptions Disp Refills AZATHIOPRINE 50 MG TABLET 90 tablet 0 Sig: Take 1 tablet by mouth once daily PARAS: Yes Jaylin Quinn RN documented in this encounter [facility] 01-12-2022 History of Presen t illness Narrative This note was created using NoteWriter. Subjective Hannah Stapleton is a 26 year old female. HISTORY Hannah Stapleton is a 26 year old lady here for yearly exam and follow up appointment. Reviewed that has recovered from COVID in October. Been on propranolol for tremor--is helping. Left foot healed so can start therapy. PAST MEDICAL HISTORY Diagnosis Date Chronic thromboembolic pulmonary hypertension (HCC) 2012 Lung transplant recipient ([facility]) Migraine Obesity, Class II, BMI 35-39.9 03/05/2018 ABHIJIT (obstructive sleep apnea) AHI 9.6 01/21/2019 Pulmonary embolism (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) 06/22/2015 Current Outpatient Medications Medication Sig gabapentin (NEURONTIN) 300 mg capsule TAKE 2 CAPSULES BY MOUTH WITH BREAKFAST, 2 CAPSULES AT NOON AND 3 CAPSULES AT BEDTIME sulfamethoxazole-trimethoprim (BACTRIM) 400-80 mg per tablet Take 1 tab on Mondays and Fridays ergocalciferol 50,000 unit capsule (VITAMIN D2, DRISDOL) Take 1 capsule by mouth once a week naltrexone (TREXAN) 50 mg tablet Take 1 tablet by mouth once daily. buPROPion XL (WELLBUTRIN XL) 150 mg 24 hr tablet Take 2 tablets by mouth once daily. azaTHIOprine (IMURAN) 50 mg tablet Take 1 tablet by mouth once daily. ondansetron (ZOFRAN) 4 mg tablet Take 1 tablet by mouth every 12 hours as needed. propranolol (INDERAL) 20 mg tablet Take 1 tablet by mouth three times daily. warfarin (COUMADIN) 7.5 mg tablet take 7.5 mg , , Mon, Mon , and 11.25 Mon, Mon, Fri fluticasone (FLONASE) 50 mcg/actuation nasal spray Use 2 Sprays in each nostril as needed. ferrous sulfate 325 mg (65 mg iron) tablet Take 1 tablet by mouth once daily. pantoprazole DR (PROTONIX) 40 mg tablet Take 1 tablet by mouth twice daily. predniSONE (DELTASONE) 5 mg tablet TAKE 1 TABLET BY MOUTH ONCE DAILY calcium carbonate (CALCIUM 500) 500 mg calcium (1,250 mg) tablet 2000 mg daily levocetirizine (XYZAL) 5 mg tablet Take 1 tablet by mouth once daily. montelukast (SINGULAIR) 10 mg tablet TAKE 1 TABLET BY MOUTH ONCE DAILY AT BEDTIME valGANciclovir (VALCYTE) 450 mg tablet Take 1 tablet by mouth once daily tacrolimus IR (PROGRAF) 1 mg capsule Take 3 capsules by mouth twice daily. acetaminophen (TYLENOL) 325 mg cap Take by mouth. BIPAP Supplies, suitable mask per pt preference, chin strap, head gear, humidity, heated tubing, filters, lifetime supplies. G47.33 ABHIJIT BIPAP IPAP max 16, EPAP min 5 with PS 4-6 cmH2O, suitable mask per pt preference, chin strap, head gear, humidity, tubing, lifetime supplies. G47.33 ABHIJIT MULTIVIT-MINERALS/FOLIC ACID (WOMEN'S MULTIVITAMIN GUMMIES ORAL) Take by mouth once daily. magnesium oxide (MAGOX) 400 mg tablet Take 1 tablet by mouth twice daily. cyanocobalamin (VITAMIN B-12) 1,000 mcg tab Take 1 tablet by mouth once daily. BIOTIN ORAL Take by mouth. MELATONIN ORAL Take by mouth. folic acid 1 mg tablet Take 1 tablet by mouth once daily. Current Facility-Administered Medications Medication Dose Route Frequency perflutren lipid microspheres 1.3 mL in NaCl (PF) 0.9% 10 mL injection (DEFINITY) INTRAVENOUS DIRECTED PRN sodium chloride 0.9 % (flush) 10 mL (BD POSIFLUSH) 10 mL INTRAVENOUS DIRECTED PRN ALLERGIES Allergen Reactions Nickel Rash rash Pollen Other: See Comments nose runs Cefzil [Cefprozil] Hives Fentanyl Mental Status Change Patient reports anger issues Lyrica [Pregabalin] Contraindication-Medical Surgical Lack of efficacy. Pain worse and needed to go back to gabapentin Nsaids (Non-Steroid* Contraindication-Medical Surgical FAMILY HISTORY Problem Relation Age of Onset Headache Mother Thyroid Mother other (sarcoidosis) Mother derm Psoriasis Father Diabetes Father Headache Maternal Grandmother Thyroid Maternal Grandmother Dementia Maternal Grandmother Macular Degen Maternal Grandmother Social History Tobacco Use Smoking status: Never Smoker Smokeless tobacco: Never Used Vaping Use Vaping Use: Never used Substance Use Topics Alcohol use: Yes Comment: Seldom Drug use: No Review of Systems Objective BP 116/80 Pulse 84 Resp 16 Wt 106.6 kg (235 lb) LMP 07/27/2021 BMI 37.93 kg/m Last 5 Encounter Wt Readings: Date: Wt: 01/12/2022 106.6 kg (235 lb) 11/17/2021 102.1 kg (225 lb) 11/17/2021 102.4 kg (225 lb 12.8 oz) 08/12/2021 100.6 kg (221 lb 12.8 oz) 07/20/2021 100.7 kg (222 lb) No waist measurement recorded Estimated body mass index is 37.93 kg/m as calculated from the following: Height as of 11/17/21: 167.6 cm (5' 6 ). Weight as of this encounter: 106.6 kg (235 lb). Last 5 Encounter BP Readings: Date: BP: 01/12/2022 116/80 11/17/2021 121/81 11/17/2021 121/81 08/12/2021 114/72 07/20/2021 120/78 Physical Exam Vitals reviewed. Constitutional: Appearance: She is well-developed. HENT: Head: Normocephalic and atraumatic. Right Ear: External ear normal. Left Ear: External ear normal. Nose: Nose normal. Eyes: Conjunctiva/sclera: Conjunctivae normal. Neck: Thyroid: No thyromegaly. Cardiovascular: Rate and Rhythm: Normal rate and regular rhythm. Pulses: Normal pulses. Heart sounds: Normal heart sounds. No murmur heard. No friction rub. No gallop. Pulmonary: Effort: Pulmonary effort is normal. Breath sounds: Normal breath sounds. Abdominal: General: Bowel sounds are normal. There is no distension. Palpations: Abdomen is soft. There is no mass. Tenderness: There is no abdominal tenderness. Musculoskeletal: General: No deformity. Normal range of motion. Lymphadenopathy: Cervical: No cervical adenopathy. Skin: General: Skin is warm and dry. Coloration: Skin is not jaundiced or pale. Findings: No rash. Neurological: General: No focal deficit present. Mental Status: She is alert and oriented to person, place, and time. Cranial Nerves: No cranial nerve deficit. Sensory: No sensory deficit. Motor: No abnormal muscle tone. Coordination: Coordination normal. Deep Tendon Reflexes: Reflexes normal. Psychiatric: Mood and Affect: Mood normal. Behavior: Behavior normal. Thought Content: Thought content normal. Judgment: Judgment normal. Assessment and Plan ASSESSMENT/PLAN: 1. Tremor - ICD9: 781.0, ICD10: R25.1 (primary diagnosis) Continue present management. 2. Obesity, Class II, BMI 35-39.9 - ICD9: 278.00, ICD10: E66.9 Weight increasing - Behavioral intervention 3. History of COVID-19 - ICD9: V12.09, ICD10: Z86.16 Doing well now. Lynne Chan MD documented in this encounter [facility] 01-05-2022 Miscellaneous Notes The following approved medication requests have been transmitted electronically. Pending Prescriptions Disp Refills GABAPENTIN 300 MG CAPSULE 210 capsule 0 Sig: TAKE 2 CAPSULES BY MOUTH WITH BREAKFAST, 2 CAPSULES AT NOON AND 3 CAPSULES AT BEDTIME PARAS: No Matt Díaz RN documented in this encounter [facility] 12-31-2021 History of Presen t illness Narrative per pcp she agrees with information patient had inr completed at [facility] patients inr is 2.8 (patients inr range is 2.0-3.0) patient is currently taking 7.5mg daily patients last dose change was on 11/12/21 due to a high level of 3.8 (dose at that time was 11.25mg Wed and 7.5mg all other days) patient has had no changes in medication and no missed doses and no change in diet Advised patient to continue on the same dose(s) and that they would only be contacted regarding dosage and follow up instructions after review with provider, if a change is needed. Written instructions given and patient verbalized understanding. Presently scheduled in 1 month (02/03/22) for follow up INR. documented in this encounter [facility] 12-29-2021 Miscellaneous Notes The following approved medication requests have been transmitted electronically. Refused Prescriptions Disp Refills sulfamethoxazole-trimethoprim (BACTRIM,SEPTRA) 400-80 mg per tablet [Pharmacy Med Name: Sulfamethoxazole-Trimethoprim 400-80 MG Oral Tablet] 25 tablet 0 Sig: TAKE ONE TABLET BY MOUTH ON MONDAYS AND FRIDAYS PARAS: No Zack Cordero RN documented in this encounter [facility] 12-29-2021 Miscellaneous Notes The following approved medication requests have been transmitted electronically. Pending Prescriptions Disp Refills SULFAMETHOXAZOLE 400 MG-TRIMETHOPRIM 80 MG TABLET 25 tablet 3 Sig: Take 1 tab on Mondays and Fridays PARAS: No Zack Cordero RN documented in this encounter [facility] 12-09-2021 Miscellaneous Notes The following approved medication requests have been transmitted electronically. Pending Prescriptions Disp Refills ERGOCALCIFEROL (VITAMIN D2) 1,250 MCG (50,000 UNIT) CAPSULE 10 capsule 0 Sig: Take 1 capsule by mouth once a week PARAS: Yes Matt Díaz RN documented in this encounter [facility] 12-08-2021 Miscellaneous Notes Letter created and faxed to the number given. documented in this encounter [facility] 12-24-2015 History of Past i llness Narrative Problem Noted Date Resolved Date Abnormality of gait 12/24/2015 04/11/2017 Ascites 07/13/2015 08/21/2015 Overview: Abdominal distension 07/09 KUB: air in stomach, repeat on 07/11: no dilated loops of bowel 07/11: US abdomen + ascites 07/13 Paracentesis ~ 2L straw colored fluid A/P: Abdomen soft, distended. No c/o abd. fullness. Monitor. Seizure 06/22/2015 08/21/2015 Overview: 06/22/2015 0230 Sudden new onset seizures - with generalized rhythmic contractions of all extremities plus facial twitching. Treated lorazepam and midazolam. Stat head CT negative for bleed. No acute metabolic changes on ABG. Concern for withdrawal from opioids - had been on high dose fentanyl infusion for 3 weeks -infusion d'tabitha on 06/18/15. Neuro consulted and continuous EEG monitoring ordered. Cont vEEG showing mild diffuse encephalopathy but no epileptiform form activity. A/P:: No seizure activity since 06/22. Keppra discontinued per ALD. Abdominal distension 06/15/2015 06/16/2015 Overview: TF held. KUB pending. Fever 06/08/2015 08/21/2015 Overview: S/p CT chest/abd 06/18, which showed RLL collapse, with findings suggestive of necrotic PNA, and scattered upper lobe opacities; moderate ascites, cholelithiasis and gallbladder sludging without cholecystitis. Remains afebrile. No leukocytosis. - Urine cx (06/07), neg; Bld cx (06/11) x2 - NGTD - One blood culture (06/06) grew lactobacillus - Bld/UA cx drawn (06/16) - neg - BAL cx (06/20): smear shows GPC in clusters - Bld cx (06/21) NGTD Plan: - Meropenem stopped on 06/22 - Cont PO Vancomycin through hospitalization - F/u BAL cx (06/20) - Smear currently shows GPC in clusters but no organisms on culture; in the setting of resurgence of fevers, restarted on IV Vanc on 06/18->. Continue Vancomycin oral Mild protein-calorie malnutrition 06/04/2015 04/11/2017 Overview: Nutrition following. Ice chips only per beside swallow evaluation. Advanced to popcicle and applesauce 07/19 A/P: Tolerating TF via corpak at goal. Continue TF at current rate, monitor labs. Speech evaluation today Ischemia of hand 06/01/2015 06/05/2015 Overview: Radial a line removed- good doppler signals Rooke mittens placed Heparin infusion for goal pTT 45-55. Ischemia of lower extremity 06/01/201505/13 Overview: Left lower extremity ischemia, has regained DP/PT doppler signals, but calf muscles remains somewhat tense. A/P: CKs normalizing, will stop following CK levels at this time. Vascular surgery signing off, appreciate assistance. 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 Radial art line was in LUE. Art line removed and arterial duplex showed radial artery thrombosis with patent ulnar artery. Pt now with strong pulse in L radial artery. Thrombocytopenia 06/01/2015 06/08/2015 Overview: Required massive transfusion after OR, placed on [facility] ECMO. Likely consumptive coagulopathy, however PF4 antibody sent given recent initiation of heparin IV. A/P: -Appears to be resolving, platelets 98,000 today. Cardiac insufficiency following cardiac surgery 05/30/2015 06/15/2015 Overview: Severe RV, arrived from OR on iflolan and Epi. iFlolan weaned off A/P: Off epi and iFlolan. Open chest wound 05/30/2015 06/11/2015 Overview: S/p Lung Tx A/P: Dressing intact, continue ATBX while chest is open. Possible closure today Volume overload 05/30/2015 09/02/2015 Overview: + fluid balance due to multiple transfusions and volume replacement for shock in the early post op period. A/P: - 1.9 L/24hr. Continue diuresis, monitor UOP and labs. Personal history of ECMO 05/30/2015 015 Overview: VV ECMO on 05/30, Transitioned to VA ECMO 05/31. VA ECMO weaned 06/03, back on VV ECMO Decannulated on 06/15. Stress hyperglycemia 05/30/2015 06/11/2015 Overview: S/P Lung Tx A/P: Stress hyperglycemia exacerbated by surgery and pressors. RHI infusion for glycemic control. Shock liver - hepatic insufficiency 05/30/2015 06/05/2015 Overview: Markedly elevated LFTs, persistent coagulopathy and bleeding despite near- continuous trasnfusion of blood products. Also recurrent hypoglycemia requiring D50 boluses and D10W infusion. A/P: LFTs downtrending. 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 Progressively hypoxemic after arrival to ICU despite maximal MV support with lung protective ventilation and inhaled epoprostenol. NMB, inverted I:E ratio, high PEEP, low Vt with permissive hypercapnia only helped transiently. VV ECMO placed. Optimize vent settings, BPH, pain control, VV ECMO. Worsening lung compliance d/t hypervolemia (pulm edema) and/ or PGD. Continues on iFlolan. Switched to VA ECMO but maintaining very low Vt plus high PEEP. 06/03 Washout with VA ECMO weaned. VV ECMO initiated. S/p ECMO decannulation 06/15. S/p trach 06/19. Tolerated ~>11hrs on 07/06, but CXR with increased atelectasis following. A/P: CXR with bilateral opacities. Tolerating TC ATC. Continue TC, BPH, pain control, OOB. Consumption coagulopathy 05/29/2015 015 Overview: S/P Lung Transplant. Severe coagulopathic bleeding intraop and immediately postop. Received multiple blood products - plts, cryoppt, FFP and prbcs. Also rewarming for postop hypothermia. A/P: 4u pRBC and 2u platelets distribution coordinator to OR. PF4 antibody negative Chest remains open. Hypotension 05/29/2015 06/15/2015 Overview: Post Lung Tx. Severely vasoplegic intraop and immediately postop requiring multiple inopressors. Received methylene blue bolus intraop. Arrived ICU on epi, norepi, vasopressin and phenylephrine was added in ICU to maintain MAP >60mmHg. Wean for MAP 65 or greater. A/P: Off epi. Maintain MAPs 65-75. Acute blood loss anemia 05/29/2015 09/02/20 Overview: H/H remains low but stable. 07/10: H/H 6.6--transfused 1 unit 07/11: Transfused for 6.8.3 A/P: Monitor H/H, transfuse prn. Acute postoperative pain 05/29/2015 015 Overview: Post op lung Tx A/P: Dilaudid and acetaminophen prn for pain Immunosuppressed status 05/29/2015 09/02/20 Overview: S/p b/l lung transplant on 05/29/2015 -immunosuppression and antiimicrobial prophylaxis as per Transplant Pulmonology. -Cont Tac/MMF/Pred. 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 BP has been on the lower side. Oxygen requirement increased to 3L from 2 L Plan: - Will get repeat Echo with bubble study (last one from January 2015). - Place a PA cath and continue to diurese while monitoring her right heart pressures. - Will need IV lasix-received 80 IV lasix on 04/20 and 100 IV lasix on 04/21 - Continue spironolactone. JAMES (acute kidney injury) 04/21/20152014 Overview: Baseline Cr 0.9 (04/09) -> Cr up to 2.4. A/P: JAMES is likely 2/2 ATN given hypotension and hemorrhage. Balance volume repletion with diuresis --> Cr continues to downtrend 1.92 -->1.37 today. Nephrology following - Maintain MAP 65 or greater, avoid nephrotoxic agents. Continue Lasix drip Hyponatremia with excess extracellular fluid vol ume 04/21/2015 06/02/2015 Overview: Likely hypervolemic hyponatremia. Na improved form 126 to 130 this am. Patient is already on torsemide, spironolactone and metolazone at home. Plan: - Continue to diurese as kidney function allows. 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 - O2 requirements as needed (uses 2L NC at home at night). - Continue home O2 - Patient was seen by lung transplant team. Tests required include: Quantitative perfusion scan (done) Gastric emptying study, esophageal manometry and 24hr pH study (ordered) Dental consultation (will need to call ) Social Work (on board) Iron deficiency anemia 01/25/2013 7 Overview: Menstruating female with iron deficiency Cardiomegaly 01/25/2013 09/02/2015 Overview: -- RV enlargement due to PH Exertional dyspnea 01/25/2013 09/02/2015 Mediastinal adenopathy 01/25/2013 5 Hilar adenopathy 01/25/2013 08/21/2015 Overview: Noted on imaging- mother with a history of Sarcoid Could be 2/2 to chronic VTE and pHTN Lung nodules 01/25/2013 09/02/2015 Overview: Noted on imaging Follow Anticoagulation management encounter 01/25/2013 01/26/2013 SUMMARY 01/24/2013 02/02/2013 Overview: This is a 17 year old female with no significant PMH other than migraine and minimal allergies who developed significant SOB within the past 2 months, this progressed to the point where she was unable to walk up 2 flights of stairs and had mild chest pressure with activty. This worsened on a recent trip to [place] where she was on a 6 hour plane ride leading to a near syncopal episode. She presented ot her PCP for fatigue and was found to have anemia, elevated WBC count and on echo a elevated RVSP and dilated RV. She was sent for CT at her local Ed where she was found to have 2 small PE's. Patient sent for further evaluation. At admission upon review of her Ct there is no PE noted, she does however have significant cardiomegaly, increase RVSP and right atrial dilatation, will need to work up cause of PAH PAH (pulmonary artery hypertension) 01/24/2013 08/21/2015 Overview: Found to have elevated RVSP on echo with RV dilatation. ? Sarcoid as she has a family hx as well as polyarthralgia and fatigue - now with hilar lymphadenopathy RHC revealing PA HTN. 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 as angio was suggestive of multiple PEs small and chronic Plan: Further Remodulin titration as an out-patient q weekly, now on 7.5 ng/kg/min PET scan for VALERIA in the chest complete 02/07 Night sweats 01/24/2013 08/21/2015 Overview: Unclear etiology- Awaiting further PAH workup and Rheum w/u is neg so far documented as of this encounter (statuses as of 12/09/2021) [facility] History of Past illness Narrative* Problem Noted Date Resolved Date Abnormality of gait 12/24/2015 04/11/2017 Ascites 07/13/2015 08/21/2015 Overview: Abdominal distension 07/09 KUB: air in stomach, repeat on 07/11: no dilated loops of bowel 07/11: US abdomen + ascites 07/13 Paracentesis ~ 2L straw colored fluid A/P: Abdomen soft, distended. No c/o abd. fullness. Monitor. Seizure 06/22/2015 08/21/2015 Overview: 06/22/2015 0230 Sudden new onset seizures - with generalized rhythmic contractions of all extremities plus facial twitching. Treated lorazepam and midazolam. Stat head CT negative for bleed. No acute metabolic changes on ABG. Concern for withdrawal from opioids - had been on high dose fentanyl infusion for 3 weeks -infusion d'tabitha on 06/18/15. Neuro consulted and continuous EEG monitoring ordered. Cont vEEG showing mild diffuse encephalopathy but no epileptiform form activity. A/P:: No seizure activity since 06/22. Keppra discontinued per ALD. Abdominal distension 06/15/2015 06/16/2015 Overview: TF held. KUB pending. Fever 06/08/2015 08/21/2015 Overview: S/p CT chest/abd 06/18, which showed RLL collapse, with findings suggestive of necrotic PNA, and scattered upper lobe opacities; moderate ascites, cholelithiasis and gallbladder sludging without cholecystitis. Remains afebrile. No leukocytosis. - Urine cx (06/07), neg; Bld cx (06/11) x2 - NGTD - One blood culture (06/06) grew lactobacillus - Bld/UA cx drawn (06/16) - neg - BAL cx (06/20): smear shows GPC in clusters - Bld cx (06/21) NGTD Plan: - Meropenem stopped on 06/22 - Cont PO Vancomycin through hospitalization - F/u BAL cx (06/20) - Smear currently shows GPC in clusters but no organisms on culture; in the setting of resurgence of fevers, restarted on IV Vanc on 06/18->. Continue Vancomycin oral Mild protein-calorie malnutrition 06/04/2015 04/11/2017 Overview: Nutrition following. Ice chips only per beside swallow evaluation. Advanced to popcicle and applesauce 07/19 A/P: Tolerating TF via corpak at goal. Continue TF at current rate, monitor labs. Speech evaluation today Ischemia of hand 06/01/2015 06/05/2015 Overview: Radial a line removed- good doppler signals Dexter ndiaye placed Heparin infusion for goal pTT 45-55. Ischemia of lower extremity 06/01/201505/13 Overview: Left lower extremity ischemia, has regained DP/PT doppler signals, but calf muscles remains somewhat tense. A/P: CKs normalizing, will stop following CK levels at this time. Vascular surgery signing off, appreciate assistance. 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 Radial art line was in LUE. Art line removed and arterial duplex showed radial artery thrombosis with patent ulnar artery. Pt now with strong pulse in L radial artery. Thrombocytopenia 06/01/2015 06/08/2015 Overview: Required massive transfusion after OR, placed on VA ECMO. Likely consumptive coagulopathy, however PF4 antibody sent given recent initiation of heparin IV. A/P: -Appears to be resolving, platelets 98,000 today. Cardiac insufficiency following cardiac surgery 05/30/2015 06/15/2015 Overview: Severe RV, arrived from OR on iflolan and Epi. iFlolan weaned off A/P: Off epi and iFlolan. Open chest wound 05/30/2015 06/11/2015 Overview: S/p Lung Tx A/P: Dressing intact, continue ATBX while chest is open. Possible closure today Volume overload 05/30/2015 09/02/2015 Overview: + fluid balance due to multiple transfusions and volume replacement for shock in the early post op period. A/P: - 1.9 L/24hr. Continue diuresis, monitor UOP and labs. Personal history of ECMO 05/30/2015 015 Overview: VV ECMO on 05/30, Transitioned to VA ECMO 05/31. VA ECMO weaned 06/03, back on VV ECMO Decannulated on 06/15. Stress hyperglycemia 05/30/2015 06/11/2015 Overview: S/P Lung Tx A/P: Stress hyperglycemia exacerbated by surgery and pressors. RHI infusion for glycemic control. Shock liver - hepatic insufficiency 05/30/2015 06/05/2015 Overview: Markedly elevated LFTs, persistent coagulopathy and bleeding despite near- continuous trasnfusion of blood products. Also recurrent hypoglycemia requiring D50 boluses and D10W infusion. A/P: LFTs downtrending. 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 Progressively hypoxemic after arrival to ICU despite maximal MV support with lung protective ventilation and inhaled epoprostenol. NMB, inverted I:E ratio, high PEEP, low Vt with permissive hypercapnia only helped transiently. VV ECMO placed. Optimize vent settings, BPH, pain control, VV ECMO. Worsening lung compliance d/t hypervolemia (pulm edema) and/ or PGD. Continues on iFlolan. Switched to VA ECMO but maintaining very low Vt plus high PEEP. 06/03 Washout with VA ECMO weaned. VV ECMO initiated. S/p ECMO decannulation 06/15. S/p trach 06/19. Tolerated ~>11hrs on 07/06, but CXR with increased atelectasis following. A/P: CXR with bilateral opacities. Tolerating TC ATC. Continue TC, BPH, pain control, OOB. Consumption coagulopathy 05/29/2015 015 Overview: S/P Lung Transplant. Severe coagulopathic bleeding intraop and immediately postop. Received multiple blood products - plts, cryoppt, FFP and prbcs. Also rewarming for postop hypothermia. A/P: 4u pRBC and 2u platelets distribution coordinator to OR. PF4 antibody negative Chest remains open. Hypotension 05/29/2015 06/15/2015 Overview: Post Lung Tx. Severely vasoplegic intraop and immediately postop requiring multiple inopressors. Received methylene blue bolus intraop. Arrived ICU on epi, norepi, vasopressin and phenylephrine was added in ICU to maintain MAP >60mmHg. Wean for MAP 65 or greater. A/P: Off epi. Maintain MAPs 65-75. Acute blood loss anemia 05/29/2015 09/02/20 15 Overview: H/H remains low but stable. 07/10: H/H 6.6--transfused 1 unit 07/11: Transfused for .05/01.3 A/P: Monitor H/H, transfuse prn. Acute postoperative pain 05/29/2015 015 Overview: Post op lung Tx A/P: Dilaudid and acetaminophen prn for pain Immunosuppressed status 05/29/2015 09/02/20 15 Overview: S/p b/l lung transplant on 05/29/2015 -immunosuppression and antiimicrobial prophylaxis as per Transplant Pulmonology. -Cont Tac/MMF/Pred. 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 BP has been on the lower side. Oxygen requirement increased to 3L from 2 L Plan: - Will get repeat Echo with bubble study (last one from January 2015). - Place a PA cath and continue to diurese while monitoring her right heart pressures. - Will need IV lasix-received 80 IV lasix on 04/20 and 100 IV lasix on 04/21 - Continue spironolactone. JAMES (acute kidney injury) 04/21/20152014 Overview: Baseline Cr 0.9 (04/09) -> Cr up to 2.4. A/P: JAMES is likely 2/2 ATN given hypotension and hemorrhage. Balance volume repletion with diuresis --> Cr continues to downtrend 1.92 -->1.37 today. Nephrology following - Maintain MAP 65 or greater, avoid nephrotoxic agents. Continue Lasix drip Hyponatremia with excess extracellular fluid vol ume 04/21/2015 06/02/2015 Overview: Likely hypervolemic hyponatremia. Na improved form 126 to 130 this am. Patient is already on torsemide, spironolactone and metolazone at home. Plan: - Continue to diurese as kidney function allows. 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 - O2 requirements as needed (uses 2L NC at home at night). - Continue home O2 - Patient was seen by lung transplant team. Tests required include: Quantitative perfusion scan (done) Gastric emptying study, esophageal manometry and 24hr pH study (ordered) Dental consultation (will need to call ) Social Work (on board) Iron deficiency anemia 01/25/2013 7 Overview: Menstruating female with iron deficiency Cardiomegaly 01/25/2013 09/02/2015 Overview: -- RV enlargement due to PH Exertional dyspnea 01/25/2013 09/02/2015 Mediastinal adenopathy 01/25/2013 5 Hilar adenopathy 01/25/2013 08/21/2015 Overview: Noted on imaging- mother with a history of Sarcoid Could be 2/2 to chronic VTE and pHTN Lung nodules 01/25/2013 09/02/2015 Overview: Noted on imaging Follow Anticoagulation management encounter 01/25/2013 01/26/2013 SUMMARY 01/24/2013 02/02/2013 Overview: This is a 17 year old female with no significant PMH other than migraine and minimal allergies who developed significant SOB within the past 2 months, this progressed to the point where she was unable to walk up 2 flights of stairs and had mild chest pressure with activty. This worsened on a recent trip to [place] where she was on a 6 hour plane ride leading to a near syncopal episode. She presented ot her PCP for fatigue and was found to have anemia, elevated WBC count and on echo a elevated RVSP and dilated RV. She was sent for CT at her local Ed where she was found to have 2 small PE's. Patient sent for further evaluation. At admission upon review of her Ct there is no PE noted, she does however have significant cardiomegaly, increase RVSP and right atrial dilatation, will need to work up cause of PAH PAH (pulmonary artery hypertension) 01/24/2013 08/21/2015 Overview: Found to have elevated RVSP on echo with RV dilatation. ? Sarcoid as she has a family hx as well as polyarthralgia and fatigue - now with hilar lymphadenopathy RHC revealing PA HTN. 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 as angio was suggestive of multiple PEs small and chronic Plan: Further Remodulin titration as an out-patient q weekly, now on 7.5 ng/kg/min PET scan for VALERIA in the chest complete 02/07 Night sweats 01/24/2013 08/21/2015 Overview: Unclear etiology- Awaiting further PAH workup and Rheum w/u is neg so far documented as of this encounter (statuses as of 12/09/2021) [facility] History of Past illness Narrative* Problem Noted Date Resolved Date Abnormality of gait 12/24/2015 04/11/2017 Ascites 07/13/2015 08/21/2015 Overview: Abdominal distension 07/09 KUB: air in stomach, repeat on 07/11: no dilated loops of bowel 07/11: US abdomen + ascites 07/13 Paracentesis ~ 2L straw colored fluid A/P: Abdomen soft, distended. No c/o abd. fullness. Monitor. Seizure 06/22/2015 08/21/2015 Overview: 06/22/2015 0230 Sudden new onset seizures - with generalized rhythmic contractions of all extremities plus facial twitching. Treated lorazepam and midazolam. Stat head CT negative for bleed. No acute metabolic changes on ABG. Concern for withdrawal from opioids - had been on high dose fentanyl infusion for 3 weeks -infusion d'tabitha on 06/18/15. Neuro consulted and continuous EEG monitoring ordered. Cont vEEG showing mild diffuse encephalopathy but no epileptiform form activity. A/P:: No seizure activity since 06/22. Keppra discontinued per ALD. Abdominal distension 06/15/2015 06/16/2015 Overview: TF held. KUB pending. Fever 06/08/2015 08/21/2015 Overview: S/p CT chest/abd 06/18, which showed RLL collapse, with findings suggestive of necrotic PNA, and scattered upper lobe opacities; moderate ascites, cholelithiasis and gallbladder sludging without cholecystitis. Remains afebrile. No leukocytosis. - Urine cx (06/07), neg; Bld cx (06/11) x2 - NGTD - One blood culture (06/06) grew lactobacillus - Bld/UA cx drawn (06/16) - neg - BAL cx (06/20): smear shows GPC in clusters - Bld cx (06/21) NGTD Plan: - Meropenem stopped on 06/22 - Cont PO Vancomycin through hospitalization - F/u BAL cx (06/20) - Smear currently shows GPC in clusters but no organisms on culture; in the setting of resurgence of fevers, restarted on IV Vanc on 06/18->. Continue Vancomycin oral Mild protein-calorie malnutrition 06/04/2015 04/11/2017 Overview: Nutrition following. Ice chips only per beside swallow evaluation. Advanced to popcicle and applesauce 07/19 A/P: Tolerating TF via corpak at goal. Continue TF at current rate, monitor labs. Speech evaluation today Ischemia of hand 06/01/2015 06/05/2015 Overview: Radial a line removed- good doppler signals Rooke mittens placed Heparin infusion for goal pTT 45-55. Ischemia of lower extremity 06/01/201505/13 Overview: Left lower extremity ischemia, has regained DP/PT doppler signals, but calf muscles remains somewhat tense. A/P: CKs normalizing, will stop following CK levels at this time. Vascular surgery signing off, appreciate assistance. 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 Radial art line was in LUE. Art line removed and arterial duplex showed radial artery thrombosis with patent ulnar artery. Pt now with strong pulse in L radial artery. Thrombocytopenia 06/01/2015 06/08/2015 Overview: Required massive transfusion after OR, placed on VA ECMO. Likely consumptive coagulopathy, however PF4 antibody sent given recent initiation of heparin IV. A/P: -Appears to be resolving, platelets 98,000 today. Cardiac insufficiency following cardiac surgery 05/30/2015 06/15/2015 Overview: Severe RV, arrived from OR on iflolan and Epi. iFlolan weaned off A/P: Off epi and iFlolan. Open chest wound 05/30/2015 06/11/2015 Overview: S/p Lung Tx A/P: Dressing intact, continue ATBX while chest is open. Possible closure today Volume overload 05/30/2015 09/02/2015 Overview: + fluid balance due to multiple transfusions and volume replacement for shock in the early post op period. A/P: - 1.9 L/24hr. Continue diuresis, monitor UOP and labs. Personal history of ECMO 05/30/2015 015 Overview: VV ECMO on 05/30, Transitioned to VA ECMO 05/31. VA ECMO weaned 06/03, back on VV ECMO Decannulated on 06/15. Stress hyperglycemia 05/30/2015 06/11/2015 Overview: S/P Lung Tx A/P: Stress hyperglycemia exacerbated by surgery and pressors. RHI infusion for glycemic control. Shock liver - hepatic insufficiency 05/30/2015 06/05/2015 Overview: Markedly elevated LFTs, persistent coagulopathy and bleeding despite near- continuous trasnfusion of blood products. Also recurrent hypoglycemia requiring D50 boluses and D10W infusion. A/P: LFTs downtrending. 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 Progressively hypoxemic after arrival to ICU despite maximal MV support with lung protective ventilation and inhaled epoprostenol. NMB, inverted I:E ratio, high PEEP, low Vt with permissive hypercapnia only helped transiently. VV ECMO placed. Optimize vent settings, BPH, pain control, VV ECMO. Worsening lung compliance d/t hypervolemia (pulm edema) and/ or PGD. Continues on iFlolan. Switched to VA ECMO but maintaining very low Vt plus high PEEP. 06/03 Washout with VA ECMO weaned. VV ECMO initiated. S/p ECMO decannulation 06/15. S/p trach 06/19. Tolerated ~>11hrs on 07/06, but CXR with increased atelectasis following. A/P: CXR with bilateral opacities. Tolerating TC ATC. Continue TC, BPH, pain control, OOB. Consumption coagulopathy 05/29/2015 015 Overview: S/P Lung Transplant. Severe coagulopathic bleeding intraop and immediately postop. Received multiple blood products - plts, cryoppt, FFP and prbcs. Also rewarming for postop hypothermia. A/P: 4u pRBC and 2u platelets distribution coordinator to OR. PF4 antibody negative Chest remains open. Hypotension 05/29/2015 06/15/2015 Overview: Post Lung Tx. Severely vasoplegic intraop and immediately postop requiring multiple inopressors. Received methylene blue bolus intraop. Arrived ICU on epi, norepi, vasopressin and phenylephrine was added in ICU to maintain MAP >60mmHg. Wean for MAP 65 or greater. A/P: Off epi. Maintain MAPs 65-75. Acute blood loss anemia 05/29/2015 09/02/20 Overview: H/H remains low but stable. 07/10: H/H 6.6/21--transfused 1 unit 07/11: Transfused for 6.8/21.3 A/P: Monitor H/H, transfuse prn. Acute postoperative pain 05/29/2015 015 Overview: Post op lung Tx A/P: Dilaudid and acetaminophen prn for pain Immunosuppressed status 05/29/2015 09/02/20 Overview: S/p b/l lung transplant on 05/29/2015 -immunosuppression and antiimicrobial prophylaxis as per Transplant Pulmonology. -Cont Tac/MMF/Pred. 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 BP has been on the lower side. Oxygen requirement increased to 3L from 2 L Plan: - Will get repeat Echo with bubble study (last one from January 2015). - Place a PA cath and continue to diurese while monitoring her right heart pressures. - Will need IV lasix-received 80 IV lasix on 04/20 and 100 IV lasix on 04/21 - Continue spironolactone. JAMES (acute kidney injury) 04/21/20152014 Overview: Baseline Cr 0.9 (04/09) -> Cr up to 2.4. A/P: JAMES is likely 2/2 ATN given hypotension and hemorrhage. Balance volume repletion with diuresis --> Cr continues to downtrend 1.92 -->1.37 today. Nephrology following - Maintain MAP 65 or greater, avoid nephrotoxic agents. Continue Lasix drip Hyponatremia with excess extracellular fluid vol ume 04/21/2015 06/02/2015 Overview: Likely hypervolemic hyponatremia. Na improved form 126 to 130 this am. Patient is already on torsemide, spironolactone and metolazone at home. Plan: - Continue to diurese as kidney function allows. 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 - O2 requirements as needed (uses 2L NC at home at night). - Continue home O2 - Patient was seen by lung transplant team. Tests required include: Quantitative perfusion scan (done) Gastric emptying study, esophageal manometry and 24hr pH study (ordered) Dental consultation (will need to call ) Social Work (on board) Iron deficiency anemia 01/25/2013 Overview: Menstruating female with iron deficiency Cardiomegaly 01/25/2013 09/02/2015 Overview: -- RV enlargement due to PH Exertional dyspnea 01/25/2013 09/02/2015 Mediastinal adenopathy 01/25/2013 5 Hilar adenopathy 01/25/2013 08/21/2015 Overview: Noted on imaging- mother with a history of Sarcoid Could be 2/2 to chronic VTE and pHTN Lung nodules 01/25/2013 09/02/2015 Overview: Noted on imaging Follow Anticoagulation management encounter 01/25/2013 01/26/2013 SUMMARY 01/24/2013 02/02/2013 Overview: This is a 17 year old female with no significant PMH other than migraine and minimal allergies who developed significant SOB within the past 2 months, this progressed to the point where she was unable to walk up 2 flights of stairs and had mild chest pressure with activty. This worsened on a recent trip to [place] where she was on a 6 hour plane ride leading to a near syncopal episode. She presented ot her PCP for fatigue and was found to have anemia, elevated WBC count and on echo a elevated RVSP and dilated RV. She was sent for CT at her local Ed where she was found to have 2 small PE's. Patient sent for further evaluation. At admission upon review of her Ct there is no PE noted, she does however have significant cardiomegaly, increase RVSP and right atrial dilatation, will need to work up cause of PAH PAH (pulmonary artery hypertension) 01/24/2013 08/21/2015 Overview: Found to have elevated RVSP on echo with RV dilatation. ? Sarcoid as she has a family hx as well as polyarthralgia and fatigue - now with hilar lymphadenopathy RHC revealing PA HTN. 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 as angio was suggestive of multiple PEs small and chronic Plan: Further Remodulin titration as an out-patient q weekly, now on 7.5 ng/kg/min PET scan for VALERIA in the chest complete 5/30 Night sweats 01/24/2013 08/21/2015 Overview: Unclear etiology- Awaiting further PAH workup and Rheum w/u is neg so far documented as of this encounter (statuses as of 12/29/2021) [facility] History of Past illness Narrative* Problem Noted Date Resolved Date Abnormality of gait 12/24/2015 04/11/2017 Ascites 07/13/2015 08/21/2015 Overview: Abdominal distension 07/09 KUB: air in stomach, repeat on 07/11: no dilated loops of bowel 07/11: US abdomen + ascites 07/13 Paracentesis ~ 2L straw colored fluid A/P: Abdomen soft, distended. No c/o abd. fullness. Monitor. Seizure 06/22/2015 08/21/2015 Overview: 06/22/2015 0230 Sudden new onset seizures - with generalized rhythmic contractions of all extremities plus facial twitching. Treated lorazepam and midazolam. Stat head CT negative for bleed. No acute metabolic changes on ABG. Concern for withdrawal from opioids - had been on high dose fentanyl infusion for 3 weeks -infusion d'tabitha on 06/18/15. Neuro consulted and continuous EEG monitoring ordered. Cont vEEG showing mild diffuse encephalopathy but no epileptiform form activity. A/P:: No seizure activity since 06/22. Keppra discontinued per ALD. Abdominal distension 06/15/2015 06/16/2015 Overview: TF held. KUB pending. Fever 06/08/2015 08/21/2015 Overview: S/p CT chest/abd 06/18, which showed RLL collapse, with findings suggestive of necrotic PNA, and scattered upper lobe opacities; moderate ascites, cholelithiasis and gallbladder sludging without cholecystitis. Remains afebrile. No leukocytosis. - Urine cx (06/07), neg; Bld cx (06/11) x2 - NGTD - One blood culture (06/06) grew lactobacillus - Bld/UA cx drawn (06/16) - neg - BAL cx (06/20): smear shows GPC in clusters - Bld cx (06/21) NGTD Plan: - Meropenem stopped on 06/22 - Cont PO Vancomycin through hospitalization - F/u BAL cx (06/20) - Smear currently shows GPC in clusters but no organisms on culture; in the setting of resurgence of fevers, restarted on IV Vanc on 06/18->. Continue Vancomycin oral Mild protein-calorie malnutrition 06/04/2015 04/11/2017 Overview: Nutrition following. Ice chips only per beside swallow evaluation. Advanced to popcicle and applesauce 07/19 A/P: Tolerating TF via corpak at goal. Continue TF at current rate, monitor labs. Speech evaluation today Ischemia of hand 06/01/2015 06/05/2015 Overview: Radial a line removed- good doppler signals Rooke mittens placed Heparin infusion for goal pTT 45-55. Ischemia of lower extremity 06/01/201505/13 Overview: Left lower extremity ischemia, has regained DP/PT doppler signals, but calf muscles remains somewhat tense. A/P: CKs normalizing, will stop following CK levels at this time. Vascular surgery signing off, appreciate assistance. 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 Radial art line was in LUE. Art line removed and arterial duplex showed radial artery thrombosis with patent ulnar artery. Pt now with strong pulse in L radial artery. Thrombocytopenia 06/01/2015 06/08/2015 Overview: Required massive transfusion after OR, placed on VA ECMO. Likely consumptive coagulopathy, however PF4 antibody sent given recent initiation of heparin IV. A/P: -Appears to be resolving, platelets 98,000 today. Cardiac insufficiency following cardiac surgery 05/30/2015 06/15/2015 Overview: Severe RV, arrived from OR on iflolan and Epi. iFlolan weaned off A/P: Off epi and iFlolan. Open chest wound 05/30/2015 06/11/2015 Overview: S/p Lung Tx A/P: Dressing intact, continue ATBX while chest is open. Possible closure today Volume overload 05/30/2015 09/02/2015 Overview: + fluid balance due to multiple transfusions and volume replacement for shock in the early post op period. A/P: - 1.9 L/24hr. Continue diuresis, monitor UOP and labs. Personal history of ECMO 05/30/2015 015 Overview: VV ECMO on 05/30, Transitioned to VA ECMO 05/31. VA ECMO weaned 06/03, back on VV ECMO Decannulated on 06/15. Stress hyperglycemia 05/30/2015 06/11/2015 Overview: S/P Lung Tx A/P: Stress hyperglycemia exacerbated by surgery and pressors. RHI infusion for glycemic control. Shock liver - hepatic insufficiency 05/30/2015 06/05/2015 Overview: Markedly elevated LFTs, persistent coagulopathy and bleeding despite near- continuous trasnfusion of blood products. Also recurrent hypoglycemia requiring D50 boluses and D10W infusion. A/P: LFTs downtrending. 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 Progressively hypoxemic after arrival to ICU despite maximal MV support with lung protective ventilation and inhaled epoprostenol. NMB, inverted I:E ratio, high PEEP, low Vt with permissive hypercapnia only helped transiently. VV ECMO placed. Optimize vent settings, BPH, pain control, VV ECMO. Worsening lung compliance d/t hypervolemia (pulm edema) and/ or PGD. Continues on iFlolan. Switched to VA ECMO but maintaining very low Vt plus high PEEP. 06/03 Washout with VA ECMO weaned. VV ECMO initiated. S/p ECMO decannulation 06/15. S/p trach 06/19. Tolerated ~>11hrs on 07/06, but CXR with increased atelectasis following. A/P: CXR with bilateral opacities. Tolerating TC ATC. Continue TC, BPH, pain control, OOB. Consumption coagulopathy 05/29/2015 015 Overview: S/P Lung Transplant. Severe coagulopathic bleeding intraop and immediately postop. Received multiple blood products - plts, cryoppt, FFP and prbcs. Also rewarming for postop hypothermia. A/P: 4u pRBC and 2u platelets distribution coordinator to OR. PF4 antibody negative Chest remains open. Hypotension 05/29/2015 06/15/2015 Overview: Post Lung Tx. Severely vasoplegic intraop and immediately postop requiring multiple inopressors. Received methylene blue bolus intraop. Arrived ICU on epi, norepi, vasopressin and phenylephrine was added in ICU to maintain MAP >60mmHg. Wean for MAP 65 or greater. A/P: Off epi. Maintain MAPs 65-75. Acute blood loss anemia 05/29/2015 09/02/20 15 Overview: H/H remains low but stable. 07/10: H/H 6.6/21--transfused 1 unit 07/11: Transfused for 6.8.3 A/P: Monitor H/H, transfuse prn. Acute postoperative pain 05/29/2015 015 Overview: Post op lung Tx A/P: Dilaudid and acetaminophen prn for pain Immunosuppressed status 05/29/2015 09/02/20 15 Overview: S/p b/l lung transplant on 05/29/2015 -immunosuppression and antiimicrobial prophylaxis as per Transplant Pulmonology. -Cont Tac/MMF/Pred. 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 BP has been on the lower side. Oxygen requirement increased to 3L from 2 L Plan: - Will get repeat Echo with bubble study (last one from January 2015). - Place a PA cath and continue to diurese while monitoring her right heart pressures. - Will need IV lasix-received 80 IV lasix on 04/20 and 100 IV lasix on 04/21 - Continue spironolactone. JAMES (acute kidney injury) 04/21/20152014 Overview: Baseline Cr 0.9 (04/09) -> Cr up to 2.4. A/P: JAMES is likely 2/2 ATN given hypotension and hemorrhage. Balance volume repletion with diuresis --> Cr continues to downtrend 1.92 -->1.37 today. Nephrology following - Maintain MAP 65 or greater, avoid nephrotoxic agents. Continue Lasix drip Hyponatremia with excess extracellular fluid vol ume 04/21/2015 06/02/2015 Overview: Likely hypervolemic hyponatremia. Na improved form 126 to 130 this am. Patient is already on torsemide, spironolactone and metolazone at home. Plan: - Continue to diurese as kidney function allows. 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 - O2 requirements as needed (uses 2L NC at home at night). - Continue home O2 - Patient was seen by lung transplant team. Tests required include: Quantitative perfusion scan (done) Gastric emptying study, esophageal manometry and 24hr pH study (ordered) Dental consultation (will need to call ) Social Work (on board) Iron deficiency anemia 01/25/2013 7 Overview: Menstruating female with iron deficiency Cardiomegaly 01/25/2013 09/02/2015 Overview: -- RV enlargement due to PH Exertional dyspnea 01/25/2013 09/02/2015 Mediastinal adenopathy 01/25/2013 5 Hilar adenopathy 01/25/2013 08/21/2015 Overview: Noted on imaging- mother with a history of Sarcoid Could be 2/2 to chronic VTE and pHTN Lung nodules 01/25/2013 09/02/2015 Overview: Noted on imaging Follow Anticoagulation management encounter 01/25/2013 01/26/2013 SUMMARY 01/24/2013 02/02/2013 Overview: This is a 17 year old female with no significant PMH other than migraine and minimal allergies who developed significant SOB within the past 2 months, this progressed to the point where she was unable to walk up 2 flights of stairs and had mild chest pressure with activty. This worsened on a recent trip to [place] where she was on a 6 hour plane ride leading to a near syncopal episode. She presented ot her PCP for fatigue and was found to have anemia, elevated WBC count and on echo a elevated RVSP and dilated RV. She was sent for CT at her local Ed where she was found to have 2 small PE's. Patient sent for further evaluation. At admission upon review of her Ct there is no PE noted, she does however have significant cardiomegaly, increase RVSP and right atrial dilatation, will need to work up cause of PAH PAH (pulmonary artery hypertension) 01/24/2013 08/21/2015 Overview: Found to have elevated RVSP on echo with RV dilatation. ? Sarcoid as she has a family hx as well as polyarthralgia and fatigue - now with hilar lymphadenopathy RHC revealing PA HTN. 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 as angio was suggestive of multiple PEs small and chronic Plan: Further Remodulin titration as an out-patient q weekly, now on 7.5 ng/kg/min PET scan for VALERIA in the chest complete 02/07 Night sweats 01/24/2013 08/21/2015 Overview: Unclear etiology- Awaiting further PAH workup and Rheum w/u is neg so far documented as of this encounter (statuses as of 12/29/2021) [facility] History of Past illness Narrative* Problem Noted Date Resolved Date Abnormality of gait 12/24/2015 04/11/2017 Ascites 07/13/2015 08/21/2015 Overview: Abdominal distension 07/09 KUB: air in stomach, repeat on 07/11: no dilated loops of bowel 07/11: US abdomen + ascites 07/13 Paracentesis ~ 2L straw colored fluid A/P: Abdomen soft, distended. No c/o abd. fullness. Monitor. Seizure 06/22/2015 08/21/2015 Overview: 06/22/2015 0230 Sudden new onset seizures - with generalized rhythmic contractions of all extremities plus facial twitching. Treated lorazepam and midazolam. Stat head CT negative for bleed. No acute metabolic changes on ABG. Concern for withdrawal from opioids - had been on high dose fentanyl infusion for 3 weeks -infusion d'tabitha on 06/18/15. Neuro consulted and continuous EEG monitoring ordered. Cont vEEG showing mild diffuse encephalopathy but no epileptiform form activity. A/P:: No seizure activity since 06/22. Keppra discontinued per ALD. Abdominal distension 06/15/2015 06/16/2015 Overview: TF held. KUB pending. Fever 06/08/2015 08/21/2015 Overview: S/p CT chest/abd 06/18, which showed RLL collapse, with findings suggestive of necrotic PNA, and scattered upper lobe opacities; moderate ascites, cholelithiasis and gallbladder sludging without cholecystitis. Remains afebrile. No leukocytosis. - Urine cx (06/07), neg; Bld cx (06/11) x2 - NGTD - One blood culture (06/06) grew lactobacillus - Bld/UA cx drawn (06/16) - neg - BAL cx (06/20): smear shows GPC in clusters - Bld cx (06/21) NGTD Plan: - Meropenem stopped on 06/22 - Cont PO Vancomycin through hospitalization - F/u BAL cx (06/20) - Smear currently shows GPC in clusters but no organisms on culture; in the setting of resurgence of fevers, restarted on IV Vanc on 06/18->. Continue Vancomycin oral Mild protein-calorie malnutrition 06/04/2015 04/11/2017 Overview: Nutrition following. Ice chips only per beside swallow evaluation. Advanced to popcicle and applesauce 07/19 A/P: Tolerating TF via corpak at goal. Continue TF at current rate, monitor labs. Speech evaluation today Ischemia of hand 06/01/2015 06/05/2015 Overview: Radial a line removed- good doppler signals Rooke mittens placed Heparin infusion for goal pTT 45-55. Ischemia of lower extremity 06/01/201505/13 Overview: Left lower extremity ischemia, has regained DP/PT doppler signals, but calf muscles remains somewhat tense. A/P: CKs normalizing, will stop following CK levels at this time. Vascular surgery signing off, appreciate assistance. 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 Radial art line was in LUE. Art line removed and arterial duplex showed radial artery thrombosis with patent ulnar artery. Pt now with strong pulse in L radial artery. Thrombocytopenia 06/01/2015 06/08/2015 Overview: Required massive transfusion after OR, placed on VA ECMO. Likely consumptive coagulopathy, however PF4 antibody sent given recent initiation of heparin IV. A/P: -Appears to be resolving, platelets 98,000 today. Cardiac insufficiency following cardiac surgery 05/30/2015 06/15/2015 Overview: Severe RV, arrived from OR on iflolan and Epi. iFlolan weaned off A/P: Off epi and iFlolan. Open chest wound 05/30/2015 06/11/2015 Overview: S/p Lung Tx A/P: Dressing intact, continue ATBX while chest is open. Possible closure today Volume overload 05/30/2015 09/02/2015 Overview: + fluid balance due to multiple transfusions and volume replacement for shock in the early post op period. A/P: - 1.9 L/24hr. Continue diuresis, monitor UOP and labs. Personal history of ECMO 05/30/2015 015 Overview: VV ECMO on 05/30, Transitioned to VA ECMO 05/31. VA ECMO weaned 06/03, back on VV ECMO Decannulated on 06/15. Stress hyperglycemia 05/30/2015 06/11/2015 Overview: S/P Lung Tx A/P: Stress hyperglycemia exacerbated by surgery and pressors. RHI infusion for glycemic control. Shock liver - hepatic insufficiency 05/30/2015 06/05/2015 Overview: Markedly elevated LFTs, persistent coagulopathy and bleeding despite near- continuous trasnfusion of blood products. Also recurrent hypoglycemia requiring D50 boluses and D10W infusion. A/P: LFTs downtrending. 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 Progressively hypoxemic after arrival to ICU despite maximal MV support with lung protective ventilation and inhaled epoprostenol. NMB, inverted I:E ratio, high PEEP, low Vt with permissive hypercapnia only helped transiently. VV ECMO placed. Optimize vent settings, BPH, pain control, VV ECMO. Worsening lung compliance d/t hypervolemia (pulm edema) and/ or PGD. Continues on iFlolan. Switched to VA ECMO but maintaining very low Vt plus high PEEP. 06/03 Washout with VA ECMO weaned. VV ECMO initiated. S/p ECMO decannulation 06/15. S/p trach 06/19. Tolerated ~>11hrs on 07/06, but CXR with increased atelectasis following. A/P: CXR with bilateral opacities. Tolerating TC ATC. Continue TC, BPH, pain control, OOB. Consumption coagulopathy 05/29/2015 015 Overview: S/P Lung Transplant. Severe coagulopathic bleeding intraop and immediately postop. Received multiple blood products - plts, cryoppt, FFP and prbcs. Also rewarming for postop hypothermia. A/P: 4u pRBC and 2u platelets distribution coordinator to OR. PF4 antibody negative Chest remains open. Hypotension 05/29/2015 06/15/2015 Overview: Post Lung Tx. Severely vasoplegic intraop and immediately postop requiring multiple inopressors. Received methylene blue bolus intraop. Arrived ICU on epi, norepi, vasopressin and phenylephrine was added in ICU to maintain MAP >60mmHg. Wean for MAP 65 or greater. A/P: Off epi. Maintain MAPs 65-75. Acute blood loss anemia 05/29/2015 09/02/20 15 Overview: H/H remains low but stable. 07/10: H/H 6.6/21--transfused 1 unit 07/11: Transfused for 6.8/21.3 A/P: Monitor H/H, transfuse prn. Acute postoperative pain 05/29/2015 015 Overview: Post op lung Tx A/P: Dilaudid and acetaminophen prn for pain Immunosuppressed status 05/29/2015 09/02/20 15 Overview: S/p b/l lung transplant on 05/29/2015 -immunosuppression and antiimicrobial prophylaxis as per Transplant Pulmonology. -Cont Tac/MMF/Pred. 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 BP has been on the lower side. Oxygen requirement increased to 3L from 2 L Plan: - Will get repeat Echo with bubble study (last one from January 2015). - Place a PA cath and continue to diurese while monitoring her right heart pressures. - Will need IV lasix-received 80 IV lasix on 04/20 and 100 IV lasix on 04/21 - Continue spironolactone. JAMES (acute kidney injury) 04/21/20152014 Overview: Baseline Cr 0.9 (04/09) -> Cr up to 2.4. A/P: JAMES is likely 2/2 ATN given hypotension and hemorrhage. Balance volume repletion with diuresis --> Cr continues to downtrend 1.92 -->1.37 today. Nephrology following - Maintain MAP 65 or greater, avoid nephrotoxic agents. Continue Lasix drip Hyponatremia with excess extracellular fluid vol ume 04/21/2015 06/02/2015 Overview: Likely hypervolemic hyponatremia. Na improved form 126 to 130 this am. Patient is already on torsemide, spironolactone and metolazone at home. Plan: - Continue to diurese as kidney function allows. 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 - O2 requirements as needed (uses 2L NC at home at night). - Continue home O2 - Patient was seen by lung transplant team. Tests required include: Quantitative perfusion scan (done) Gastric emptying study, esophageal manometry and 24hr pH study (ordered) Dental consultation (will need to call ) Social Work (on board) Iron deficiency anemia 01/25/2013 7 Overview: Menstruating female with iron deficiency Cardiomegaly 01/25/2013 09/02/2015 Overview: -- RV enlargement due to PH Exertional dyspnea 01/25/2013 09/02/2015 Mediastinal adenopathy 01/25/2013 5 Hilar adenopathy 01/25/2013 08/21/2015 Overview: Noted on imaging- mother with a history of Sarcoid Could be 2/2 to chronic VTE and pHTN Lung nodules 01/25/2013 09/02/2015 Overview: Noted on imaging Follow Anticoagulation management encounter 01/25/2013 01/26/2013 SUMMARY 01/24/2013 02/02/2013 Overview: This is a 17 year old female with no significant PMH other than migraine and minimal allergies who developed significant SOB within the past 2 months, this progressed to the point where she was unable to walk up 2 flights of stairs and had mild chest pressure with activty. This worsened on a recent trip to [place] where she was on a 6 hour plane ride leading to a near syncopal episode. She presented ot her PCP for fatigue and was found to have anemia, elevated WBC count and on echo a elevated RVSP and dilated RV. She was sent for CT at her local Ed where she was found to have 2 small PE's. Patient sent for further evaluation. At admission upon review of her Ct there is no PE noted, she does however have significant cardiomegaly, increase RVSP and right atrial dilatation, will need to work up cause of PAH PAH (pulmonary artery hypertension) 01/24/2013 08/21/2015 Overview: Found to have elevated RVSP on echo with RV dilatation. ? Sarcoid as she has a family hx as well as polyarthralgia and fatigue - now with hilar lymphadenopathy RHC revealing PA HTN. 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 as angio was suggestive of multiple PEs small and chronic Plan: Further Remodulin titration as an out-patient q weekly, now on 7.5 ng/kg/min PET scan for VALERIA in the chest complete 02/07 Night sweats 01/24/2013 08/21/2015 Overview: Unclear etiology- Awaiting further PAH workup and Rheum w/u is neg so far documented as of this encounter (statuses as of 12/31/2021) [facility] History of Past illness Narrative* Problem Noted Date Resolved Date Abnormality of gait 12/24/2015 04/11/2017 Ascites 07/13/2015 08/21/2015 Overview: Abdominal distension 07/09 KUB: air in stomach, repeat on 07/11: no dilated loops of bowel 07/11: US abdomen + ascites 07/13 Paracentesis ~ 2L straw colored fluid A/P: Abdomen soft, distended. No c/o abd. fullness. Monitor. Seizure 06/22/2015 08/21/2015 Overview: 06/22/2015 0230 Sudden new onset seizures - with generalized rhythmic contractions of all extremities plus facial twitching. Treated lorazepam and midazolam. Stat head CT negative for bleed. No acute metabolic changes on ABG. Concern for withdrawal from opioids - had been on high dose fentanyl infusion for 3 weeks -infusion d'tabitha on 06/18/15. Neuro consulted and continuous EEG monitoring ordered. Cont vEEG showing mild diffuse encephalopathy but no epileptiform form activity. A/P:: No seizure activity since 06/22. Keppra discontinued per ALD. Abdominal distension 06/15/2015 06/16/2015 Overview: TF held. KUB pending. Fever 06/08/2015 08/21/2015 Overview: S/p CT chest/abd 06/18, which showed RLL collapse, with findings suggestive of necrotic PNA, and scattered upper lobe opacities; moderate ascites, cholelithiasis and gallbladder sludging without cholecystitis. Remains afebrile. No leukocytosis. - Urine cx (06/07), neg; Bld cx (06/11) x2 - NGTD - One blood culture (06/06) grew lactobacillus - Bld/UA cx drawn (06/16) - neg - BAL cx (06/20): smear shows GPC in clusters - Bld cx (06/21) NGTD Plan: - Meropenem stopped on 06/22 - Cont PO Vancomycin through hospitalization - F/u BAL cx (06/20) - Smear currently shows GPC in clusters but no organisms on culture; in the setting of resurgence of fevers, restarted on IV Vanc on 06/18->. Continue Vancomycin oral Mild protein-calorie malnutrition 06/04/2015 04/11/2017 Overview: Nutrition following. Ice chips only per beside swallow evaluation. Advanced to popcicle and applesauce 07/19 A/P: Tolerating TF via corpak at goal. Continue TF at current rate, monitor labs. Speech evaluation today Ischemia of hand 06/01/2015 06/05/2015 Overview: Radial a line removed- good doppler signals Rooke mittens placed Heparin infusion for goal pTT 45-55. Ischemia of lower extremity 06/01/201505/13 Overview: Left lower extremity ischemia, has regained DP/PT doppler signals, but calf muscles remains somewhat tense. A/P: CKs normalizing, will stop following CK levels at this time. Vascular surgery signing off, appreciate assistance. 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 Radial art line was in LUE. Art line removed and arterial duplex showed radial artery thrombosis with patent ulnar artery. Pt now with strong pulse in L radial artery. Thrombocytopenia 06/01/2015 06/08/2015 Overview: Required massive transfusion after OR, placed on VA ECMO. Likely consumptive coagulopathy, however PF4 antibody sent given recent initiation of heparin IV. A/P: -Appears to be resolving, platelets 98,000 today. Cardiac insufficiency following cardiac surgery 05/30/2015 06/15/2015 Overview: Severe RV, arrived from OR on iflolan and Epi. iFlolan weaned off A/P: Off epi and iFlolan. Open chest wound 05/30/2015 06/11/2015 Overview: S/p Lung Tx A/P: Dressing intact, continue ATBX while chest is open. Possible closure today Volume overload 05/30/2015 09/02/2015 Overview: + fluid balance due to multiple transfusions and volume replacement for shock in the early post op period. A/P: - 1.9 L/24hr. Continue diuresis, monitor UOP and labs. Personal history of ECMO 05/30/2015 015 Overview: VV ECMO on 05/30, Transitioned to VA ECMO 05/31. VA ECMO weaned 06/03, back on VV ECMO Decannulated on 06/15. Stress hyperglycemia 05/30/2015 06/11/2015 Overview: S/P Lung Tx A/P: Stress hyperglycemia exacerbated by surgery and pressors. RHI infusion for glycemic control. Shock liver - hepatic insufficiency 05/30/2015 06/05/2015 Overview: Markedly elevated LFTs, persistent coagulopathy and bleeding despite near- continuous trasnfusion of blood products. Also recurrent hypoglycemia requiring D50 boluses and D10W infusion. A/P: LFTs downtrending. 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 Progressively hypoxemic after arrival to ICU despite maximal MV support with lung protective ventilation and inhaled epoprostenol. NMB, inverted I:E ratio, high PEEP, low Vt with permissive hypercapnia only helped transiently. VV ECMO placed. Optimize vent settings, BPH, pain control, VV ECMO. Worsening lung compliance d/t hypervolemia (pulm edema) and/ or PGD. Continues on iFlolan. Switched to VA ECMO but maintaining very low Vt plus high PEEP. 06/03 Washout with VA ECMO weaned. VV ECMO initiated. S/p ECMO decannulation 06/15. S/p trach 06/19. Tolerated ~>11hrs on 07/06, but CXR with increased atelectasis following. A/P: CXR with bilateral opacities. Tolerating TC ATC. Continue TC, BPH, pain control, OOB. Consumption coagulopathy 05/29/2015 015 Overview: S/P Lung Transplant. Severe coagulopathic bleeding intraop and immediately postop. Received multiple blood products - plts, cryoppt, FFP and prbcs. Also rewarming for postop hypothermia. A/P: 4u pRBC and 2u platelets distribution coordinator to OR. PF4 antibody negative Chest remains open. Hypotension 05/29/2015 06/15/2015 Overview: Post Lung Tx. Severely vasoplegic intraop and immediately postop requiring multiple inopressors. Received methylene blue bolus intraop. Arrived ICU on epi, norepi, vasopressin and phenylephrine was added in ICU to maintain MAP >60mmHg. Wean for MAP 65 or greater. A/P: Off epi. Maintain MAPs 65-75. Acute blood loss anemia 05/29/2015 09/02/20 15 Overview: H/H remains low but stable. 07/10: H/H 6.6/21--transfused 1 unit 07/11: Transfused for 6.8/21.3 A/P: Monitor H/H, transfuse prn. Acute postoperative pain 05/29/2015 015 Overview: Post op lung Tx A/P: Dilaudid and acetaminophen prn for pain Immunosuppressed status 05/29/2015 09/02/20 15 Overview: S/p b/l lung transplant on 05/29/2015 -immunosuppression and antiimicrobial prophylaxis as per Transplant Pulmonology. -Cont Tac/MMF/Pred. 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 BP has been on the lower side. Oxygen requirement increased to 3L from 2 L Plan: - Will get repeat Echo with bubble study (last one from January 2015). - Place a PA cath and continue to diurese while monitoring her right heart pressures. - Will need IV lasix-received 80 IV lasix on 04/20 and 100 IV lasix on 04/21 - Continue spironolactone. JAMES (acute kidney injury) 04/21/20152014 Overview: Baseline Cr 0.9 (04/09) -> Cr up to 2.4. A/P: JAMES is likely 2/2 ATN given hypotension and hemorrhage. Balance volume repletion with diuresis --> Cr continues to downtrend 1.92 -->1.37 today. Nephrology following - Maintain MAP 65 or greater, avoid nephrotoxic agents. Continue Lasix drip Hyponatremia with excess extracellular fluid vol ume 04/21/2015 06/02/2015 Overview: Likely hypervolemic hyponatremia. Na improved form 126 to 130 this am. Patient is already on torsemide, spironolactone and metolazone at home. Plan: - Continue to diurese as kidney function allows. 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 - O2 requirements as needed (uses 2L NC at home at night). - Continue home O2 - Patient was seen by lung transplant team. Tests required include: Quantitative perfusion scan (done) Gastric emptying study, esophageal manometry and 24hr pH study (ordered) Dental consultation (will need to call ) Social Work (on board) Iron deficiency anemia 01/25/2013 7 Overview: Menstruating female with iron deficiency Cardiomegaly 01/25/2013 09/02/2015 Overview: -- RV enlargement due to PH Exertional dyspnea 01/25/2013 09/02/2015 Mediastinal adenopathy 01/25/2013 5 Hilar adenopathy 01/25/2013 08/21/2015 Overview: Noted on imaging- mother with a history of Sarcoid Could be 2/2 to chronic VTE and pHTN Lung nodules 01/25/2013 09/02/2015 Overview: Noted on imaging Follow Anticoagulation management encounter 01/25/2013 01/26/2013 SUMMARY 01/24/2013 02/02/2013 Overview: This is a 17 year old female with no significant PMH other than migraine and minimal allergies who developed significant SOB within the past 2 months, this progressed to the point where she was unable to walk up 2 flights of stairs and had mild chest pressure with activty. This worsened on a recent trip to [place] where she was on a 6 hour plane ride leading to a near syncopal episode. She presented ot her PCP for fatigue and was found to have anemia, elevated WBC count and on echo a elevated RVSP and dilated RV. She was sent for CT at her local Ed where she was found to have 2 small PE's. Patient sent for further evaluation. At admission upon review of her Ct there is no PE noted, she does however have significant cardiomegaly, increase RVSP and right atrial dilatation, will need to work up cause of PAH PAH (pulmonary artery hypertension) 01/24/2013 08/21/2015 Overview: Found to have elevated RVSP on echo with RV dilatation. ? Sarcoid as she has a family hx as well as polyarthralgia and fatigue - now with hilar lymphadenopathy RHC revealing PA HTN. 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 as angio was suggestive of multiple PEs small and chronic Plan: Further Remodulin titration as an out-patient q weekly, now on 7.5 ng/kg/min PET scan for VALERIA in the chest complete 02/07 Night sweats 01/24/2013 08/21/2015 Overview: Unclear etiology- Awaiting further PAH workup and Rheum w/u is neg so far documented as of this encounter (statuses as of 01/05/2022) [facility]04[facility] History of Past illness Narrative* Problem Noted Date Resolved Date Abnormality of gait 12/24/2015 04/11/2017 Ascites 07/13/2015 08/21/2015 Overview: Abdominal distension 07/09 KUB: air in stomach, repeat on 07/11: no dilated loops of bowel 07/11: US abdomen + ascites 07/13 Paracentesis ~ 2L straw colored fluid A/P: Abdomen soft, distended. No c/o abd. fullness. Monitor. Seizure 06/22/2015 08/21/2015 Overview: 06/22/2015 0230 Sudden new onset seizures - with generalized rhythmic contractions of all extremities plus facial twitching. Treated lorazepam and midazolam. Stat head CT negative for bleed. No acute metabolic changes on ABG. Concern for withdrawal from opioids - had been on high dose fentanyl infusion for 3 weeks -infusion d'tabitha on 06/18/15. Neuro consulted and continuous EEG monitoring ordered. Cont vEEG showing mild diffuse encephalopathy but no epileptiform form activity. A/P:: No seizure activity since 06/22. Keppra discontinued per ALD. Abdominal distension 06/15/2015 06/16/2015 Overview: TF held. KUB pending. Fever 06/08/2015 08/21/2015 Overview: S/p CT chest/abd 06/18, which showed RLL collapse, with findings suggestive of necrotic PNA, and scattered upper lobe opacities; moderate ascites, cholelithiasis and gallbladder sludging without cholecystitis. Remains afebrile. No leukocytosis. - Urine cx (06/07), neg; Bld cx (06/11) x2 - NGTD - One blood culture (06/06) grew lactobacillus - Bld/UA cx drawn (06/16) - neg - BAL cx (06/20): smear shows GPC in clusters - Bld cx (06/21) NGTD Plan: - Meropenem stopped on 06/22 - Cont PO Vancomycin through hospitalization - F/u BAL cx (06/20) - Smear currently shows GPC in clusters but no organisms on culture; in the setting of resurgence of fevers, restarted on IV Vanc on 06/18->. Continue Vancomycin oral Mild protein-calorie malnutrition 06/04/2015 04/11/2017 Overview: Nutrition following. Ice chips only per beside swallow evaluation. Advanced to popcicle and applesauce 07/19 A/P: Tolerating TF via corpak at goal. Continue TF at current rate, monitor labs. Speech evaluation today Ischemia of hand 06/01/2015 06/05/2015 Overview: Radial a line removed- good doppler signals Rooke mittens placed Heparin infusion for goal pTT 45-55. Ischemia of lower extremity 06/01/201505/13 Overview: Left lower extremity ischemia, has regained DP/PT doppler signals, but calf muscles remains somewhat tense. A/P: CKs normalizing, will stop following CK levels at this time. Vascular surgery signing off, appreciate assistance. 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 Radial art line was in LUE. Art line removed and arterial duplex showed radial artery thrombosis with patent ulnar artery. Pt now with strong pulse in L radial artery. Thrombocytopenia 06/01/2015 06/08/2015 Overview: Required massive transfusion after OR, placed on VA ECMO. Likely consumptive coagulopathy, however PF4 antibody sent given recent initiation of heparin IV. A/P: -Appears to be resolving, platelets 98,000 today. Cardiac insufficiency following cardiac surgery 05/30/2015 06/15/2015 Overview: Severe RV, arrived from OR on iflolan and Epi. iFlolan weaned off A/P: Off epi and iFlolan. Open chest wound 05/30/2015 06/11/2015 Overview: S/p Lung Tx A/P: Dressing intact, continue ATBX while chest is open. Possible closure today Volume overload 05/30/2015 09/02/2015 Overview: + fluid balance due to multiple transfusions and volume replacement for shock in the early post op period. A/P: - 1.9 L/24hr. Continue diuresis, monitor UOP and labs. Personal history of ECMO 05/30/2015 015 Overview: VV ECMO on 05/30, Transitioned to VA ECMO 05/31. VA ECMO weaned 06/03, back on VV ECMO Decannulated on 06/15. Stress hyperglycemia 05/30/2015 06/11/2015 Overview: S/P Lung Tx A/P: Stress hyperglycemia exacerbated by surgery and pressors. RHI infusion for glycemic control. Shock liver - hepatic insufficiency 05/30/2015 06/05/2015 Overview: Markedly elevated LFTs, persistent coagulopathy and bleeding despite near- continuous trasnfusion of blood products. Also recurrent hypoglycemia requiring D50 boluses and D10W infusion. A/P: LFTs downtrending. 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 Progressively hypoxemic after arrival to ICU despite maximal MV support with lung protective ventilation and inhaled epoprostenol. NMB, inverted I:E ratio, high PEEP, low Vt with permissive hypercapnia only helped transiently. VV ECMO placed. Optimize vent settings, BPH, pain control, VV ECMO. Worsening lung compliance d/t hypervolemia (pulm edema) and/ or PGD. Continues on iFlolan. Switched to VA ECMO but maintaining very low Vt plus high PEEP. 06/03 Washout with VA ECMO weaned. VV ECMO initiated. S/p ECMO decannulation 06/15. S/p trach 06/19. Tolerated ~>11hrs on 07/06, but CXR with increased atelectasis following. A/P: CXR with bilateral opacities. Tolerating TC ATC. Continue TC, BPH, pain control, OOB. Consumption coagulopathy 05/29/2015 015 Overview: S/P Lung Transplant. Severe coagulopathic bleeding intraop and immediately postop. Received multiple blood products - plts, cryoppt, FFP and prbcs. Also rewarming for postop hypothermia. A/P: 4u pRBC and 2u platelets distribution coordinator to OR. PF4 antibody negative Chest remains open. Hypotension 05/29/2015 06/15/2015 Overview: Post Lung Tx. Severely vasoplegic intraop and immediately postop requiring multiple inopressors. Received methylene blue bolus intraop. Arrived ICU on epi, norepi, vasopressin and phenylephrine was added in ICU to maintain MAP >60mmHg. Wean for MAP 65 or greater. A/P: Off epi. Maintain MAPs 65-75. Acute blood loss anemia 05/29/2015 09/02/20 15 Overview: H/H remains low but stable. 07/10: H/H 6.6/21--transfused 1 unit 07/11: Transfused for 6.8/.3 A/P: Monitor H/H, transfuse prn. Acute postoperative pain 05/29/2015 015 Overview: Post op lung Tx A/P: Dilaudid and acetaminophen prn for pain Immunosuppressed status 05/29/2015 09/02/20 15 Overview: S/p b/l lung transplant on 05/29/2015 -immunosuppression and antiimicrobial prophylaxis as per Transplant Pulmonology. -Cont Tac/MMF/Pred. 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 BP has been on the lower side. Oxygen requirement increased to 3L from 2 L Plan: - Will get repeat Echo with bubble study (last one from January 2015). - Place a PA cath and continue to diurese while monitoring her right heart pressures. - Will need IV lasix-received 80 IV lasix on 04/20 and 100 IV lasix on 04/21 - Continue spironolactone. JAMES (acute kidney injury) 04/21/20152014 Overview: Baseline Cr 0.9 (04/09) -> Cr up to 2.4. A/P: JAMES is likely 2/2 ATN given hypotension and hemorrhage. Balance volume repletion with diuresis --> Cr continues to downtrend 1.92 -->1.37 today. Nephrology following - Maintain MAP 65 or greater, avoid nephrotoxic agents. Continue Lasix drip Hyponatremia with excess extracellular fluid vol ume 04/21/2015 06/02/2015 Overview: Likely hypervolemic hyponatremia. Na improved form 126 to 130 this am. Patient is already on torsemide, spironolactone and metolazone at home. Plan: - Continue to diurese as kidney function allows. 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 - O2 requirements as needed (uses 2L NC at home at night). - Continue home O2 - Patient was seen by lung transplant team. Tests required include: Quantitative perfusion scan (done) Gastric emptying study, esophageal manometry and 24hr pH study (ordered) Dental consultation (will need to call ) Social Work (on board) Iron deficiency anemia 01/25/2013 7 Overview: Menstruating female with iron deficiency Cardiomegaly 01/25/2013 09/02/2015 Overview: -- RV enlargement due to PH Exertional dyspnea 01/25/2013 09/02/2015 Mediastinal adenopathy 01/25/2013 5 Hilar adenopathy 01/25/2013 08/21/2015 Overview: Noted on imaging- mother with a history of Sarcoid Could be 2/2 to chronic VTE and pHTN Lung nodules 01/25/2013 09/02/2015 Overview: Noted on imaging Follow Anticoagulation management encounter 01/25/2013 01/26/2013 SUMMARY 01/24/2013 02/02/2013 Overview: This is a 17 year old female with no significant PMH other than migraine and minimal allergies who developed significant SOB within the past 2 months, this progressed to the point where she was unable to walk up 2 flights of stairs and had mild chest pressure with activty. This worsened on a recent trip to [place] where she was on a 6 hour plane ride leading to a near syncopal episode. She presented ot her PCP for fatigue and was found to have anemia, elevated WBC count and on echo a elevated RVSP and dilated RV. She was sent for CT at her local Ed where she was found to have 2 small PE's. Patient sent for further evaluation. At admission upon review of her Ct there is no PE noted, she does however have significant cardiomegaly, increase RVSP and right atrial dilatation, will need to work up cause of PAH PAH (pulmonary artery hypertension) 01/24/2013 08/21/2015 Overview: Found to have elevated RVSP on echo with RV dilatation. ? Sarcoid as she has a family hx as well as polyarthralgia and fatigue - now with hilar lymphadenopathy RHC revealing PA HTN. 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 as angio was suggestive of multiple PEs small and chronic Plan: Further Remodulin titration as an out-patient q weekly, now on 7.5 ng/kg/min PET scan for VALERIA in the chest complete 02/07 Night sweats 01/24/2013 08/21/2015 Overview: Unclear etiology- Awaiting further PAH workup and Rheum w/u is neg so far documented as of this encounter (statuses as of 01/19/2022) [facility] History of Past illness Narrative* Problem Noted Date Resolved Date Abnormality of gait 12/24/2015 04/11/2017 Ascites 07/13/2015 08/21/2015 Overview: Abdominal distension 07/09 KUB: air in stomach, repeat on 07/11: no dilated loops of bowel 07/11: US abdomen + ascites 07/13 Paracentesis ~ 2L straw colored fluid A/P: Abdomen soft, distended. No c/o abd. fullness. Monitor. Seizure 06/22/2015 08/21/2015 Overview: 06/22/2015 0230 Sudden new onset seizures - with generalized rhythmic contractions of all extremities plus facial twitching. Treated lorazepam and midazolam. Stat head CT negative for bleed. No acute metabolic changes on ABG. Concern for withdrawal from opioids - had been on high dose fentanyl infusion for 3 weeks -infusion d'tabitha on 06/18/15. Neuro consulted and continuous EEG monitoring ordered. Cont vEEG showing mild diffuse encephalopathy but no epileptiform form activity. A/P:: No seizure activity since 06/22. Keppra discontinued per ALD. Abdominal distension 06/15/2015 06/16/2015 Overview: TF held. KUB pending. Fever 06/08/2015 08/21/2015 Overview: S/p CT chest/abd 06/18, which showed RLL collapse, with findings suggestive of necrotic PNA, and scattered upper lobe opacities; moderate ascites, cholelithiasis and gallbladder sludging without cholecystitis. Remains afebrile. No leukocytosis. - Urine cx (06/07), neg; Bld cx (06/11) x2 - NGTD - One blood culture (06/06) grew lactobacillus - Bld/UA cx drawn (06/16) - neg - BAL cx (06/20): smear shows GPC in clusters - Bld cx (06/21) NGTD Plan: - Meropenem stopped on 06/22 - Cont PO Vancomycin through hospitalization - F/u BAL cx (06/20) - Smear currently shows GPC in clusters but no organisms on culture; in the setting of resurgence of fevers, restarted on IV Vanc on 06/18->. Continue Vancomycin oral Mild protein-calorie malnutrition 06/04/2015 04/11/2017 Overview: Nutrition following. Ice chips only per beside swallow evaluation. Advanced to popcicle and applesauce 07/19 A/P: Tolerating TF via corpak at goal. Continue TF at current rate, monitor labs. Speech evaluation today Ischemia of hand 06/01/2015 06/05/2015 Overview: Radial a line removed- good doppler signals Rooke kayys placed Heparin infusion for goal pTT 45-55. Ischemia of lower extremity 06/01/201505/13 Overview: Left lower extremity ischemia, has regained DP/PT doppler signals, but calf muscles remains somewhat tense. A/P: CKs normalizing, will stop following CK levels at this time. Vascular surgery signing off, appreciate assistance. 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 Radial art line was in LUE. Art line removed and arterial duplex showed radial artery thrombosis with patent ulnar artery. Pt now with strong pulse in L radial artery. Thrombocytopenia 06/01/2015 06/08/2015 Overview: Required massive transfusion after OR, placed on [facility] ECMO. Likely consumptive coagulopathy, however PF4 antibody sent given recent initiation of heparin IV. A/P: -Appears to be resolving, platelets 98,000 today. Cardiac insufficiency following cardiac surgery 05/30/2015 06/15/2015 Overview: Severe RV, arrived from OR on iflolan and Epi. iFlolan weaned off A/P: Off epi and iFlolan. Open chest wound 05/30/2015 06/11/2015 Overview: S/p Lung Tx A/P: Dressing intact, continue ATBX while chest is open. Possible closure today Volume overload 05/30/2015 09/02/2015 Overview: + fluid balance due to multiple transfusions and volume replacement for shock in the early post op period. A/P: - 1.9 L/24hr. Continue diuresis, monitor UOP and labs. Personal history of ECMO 05/30/2015 015 Overview: VV ECMO on 05/30, Transitioned to VA ECMO 05/31. VA ECMO weaned 06/03, back on VV ECMO Decannulated on 06/15. Stress hyperglycemia 05/30/2015 06/11/2015 Overview: S/P Lung Tx A/P: Stress hyperglycemia exacerbated by surgery and pressors. RHI infusion for glycemic control. Shock liver - hepatic insufficiency 05/30/2015 06/05/2015 Overview: Markedly elevated LFTs, persistent coagulopathy and bleeding despite near- continuous trasnfusion of blood products. Also recurrent hypoglycemia requiring D50 boluses and D10W infusion. A/P: LFTs downtrending. 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 Progressively hypoxemic after arrival to ICU despite maximal MV support with lung protective ventilation and inhaled epoprostenol. NMB, inverted I:E ratio, high PEEP, low Vt with permissive hypercapnia only helped transiently. VV ECMO placed. Optimize vent settings, BPH, pain control, VV ECMO. Worsening lung compliance d/t hypervolemia (pulm edema) and/ or PGD. Continues on iFlolan. Switched to VA ECMO but maintaining very low Vt plus high PEEP. 06/03 Washout with VA ECMO weaned. VV ECMO initiated. S/p ECMO decannulation 06/15. S/p trach 06/19. Tolerated ~>11hrs on 07/06, but CXR with increased atelectasis following. A/P: CXR with bilateral opacities. Tolerating TC ATC. Continue TC, BPH, pain control, OOB. Consumption coagulopathy 05/29/2015 015 Overview: S/P Lung Transplant. Severe coagulopathic bleeding intraop and immediately postop. Received multiple blood products - plts, cryoppt, FFP and prbcs. Also rewarming for postop hypothermia. A/P: 4u pRBC and 2u platelets distribution coordinator to OR. PF4 antibody negative Chest remains open. Hypotension 05/29/2015 06/15/2015 Overview: Post Lung Tx. Severely vasoplegic intraop and immediately postop requiring multiple inopressors. Received methylene blue bolus intraop. Arrived ICU on epi, norepi, vasopressin and phenylephrine was added in ICU to maintain MAP >60mmHg. Wean for MAP 65 or greater. A/P: Off epi. Maintain MAPs 65-75. Acute blood loss anemia 05/29/2015 09/02/20 15 Overview: H/H remains low but stable. 07/10: H/H 6.6/21--transfused 1 unit 07/11: Transfused for 6.8/21.3 A/P: Monitor H/H, transfuse prn. Acute postoperative pain 05/29/2015 015 Overview: Post op lung Tx A/P: Dilaudid and acetaminophen prn for pain Immunosuppressed status 05/29/2015 09/02/20 Overview: S/p b/l lung transplant on 05/29/2015 -immunosuppression and antiimicrobial prophylaxis as per Transplant Pulmonology. -Cont Tac/MMF/Pred. 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 BP has been on the lower side. Oxygen requirement increased to 3L from 2 L Plan: - Will get repeat Echo with bubble study (last one from January 2015). - Place a PA cath and continue to diurese while monitoring her right heart pressures. - Will need IV lasix-received 80 IV lasix on 04/20 and 100 IV lasix on 04/21 - Continue spironolactone. JAMES (acute kidney injury) 04/21/20152014 Overview: Baseline Cr 0.9 (04/09) -> Cr up to 2.4. A/P: JAMES is likely 2/2 ATN given hypotension and hemorrhage. Balance volume repletion with diuresis --> Cr continues to downtrend 1.92 -->1.37 today. Nephrology following - Maintain MAP 65 or greater, avoid nephrotoxic agents. Continue Lasix drip Hyponatremia with excess extracellular fluid vol ume 04/21/2015 06/02/2015 Overview: Likely hypervolemic hyponatremia. Na improved form 126 to 130 this am. Patient is already on torsemide, spironolactone and metolazone at home. Plan: - Continue to diurese as kidney function allows. 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 - O2 requirements as needed (uses 2L NC at home at night). - Continue home O2 - Patient was seen by lung transplant team. Tests required include: Quantitative perfusion scan (done) Gastric emptying study, esophageal manometry and 24hr pH study (ordered) Dental consultation (will need to call ) Social Work (on board) Iron deficiency anemia 01/25/2013 7 Overview: Menstruating female with iron deficiency Cardiomegaly 01/25/2013 09/02/2015 Overview: -- RV enlargement due to PH Exertional dyspnea 01/25/2013 09/02/2015 Mediastinal adenopathy 01/25/2013 5 Hilar adenopathy 01/25/2013 08/21/2015 Overview: Noted on imaging- mother with a history of Sarcoid Could be 2/2 to chronic VTE and pHTN Lung nodules 01/25/2013 09/02/2015 Overview: Noted on imaging Follow Anticoagulation management encounter 01/25/2013 01/26/2013 SUMMARY 01/24/2013 02/02/2013 Overview: This is a 17 year old female with no significant PMH other than migraine and minimal allergies who developed significant SOB within the past 2 months, this progressed to the point where she was unable to walk up 2 flights of stairs and had mild chest pressure with activty. This worsened on a recent trip to [place] where she was on a 6 hour plane ride leading to a near syncopal episode. She presented ot her PCP for fatigue and was found to have anemia, elevated WBC count and on echo a elevated RVSP and dilated RV. She was sent for CT at her local Ed where she was found to have 2 small PE's. Patient sent for further evaluation. At admission upon review of her Ct there is no PE noted, she does however have significant cardiomegaly, increase RVSP and right atrial dilatation, will need to work up cause of PAH PAH (pulmonary artery hypertension) 01/24/2013 08/21/2015 Overview: Found to have elevated RVSP on echo with RV dilatation. ? Sarcoid as she has a family hx as well as polyarthralgia and fatigue - now with hilar lymphadenopathy RHC revealing PA HTN. 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 as angio was suggestive of multiple PEs small and chronic Plan: Further Remodulin titration as an out-patient q weekly, now on 7.5 ng/kg/min PET scan for VALERAI in the chest complete 02/07 Night sweats 01/24/2013 08/21/2015 Overview: Unclear etiology- Awaiting further PAH workup and Rheum w/u is neg so far documented as of this encounter (statuses as of 01/20/2022) [facility] History of Past illness Narrative* Problem Noted Date Resolved Date Abnormality of gait 12/24/2015 04/11/2017 Ascites 07/13/2015 08/21/2015 Overview: Abdominal distension 07/09 KUB: air in stomach, repeat on 07/11: no dilated loops of bowel 07/11: US abdomen + ascites 07/13 Paracentesis ~ 2L straw colored fluid A/P: Abdomen soft, distended. No c/o abd. fullness. Monitor. Seizure 06/22/2015 08/21/2015 Overview: 06/22/2015 0230 Sudden new onset seizures - with generalized rhythmic contractions of all extremities plus facial twitching. Treated lorazepam and midazolam. Stat head CT negative for bleed. No acute metabolic changes on ABG. Concern for withdrawal from opioids - had been on high dose fentanyl infusion for 3 weeks -infusion d'tabitha on 06/18/15. Neuro consulted and continuous EEG monitoring ordered. Cont vEEG showing mild diffuse encephalopathy but no epileptiform form activity. A/P:: No seizure activity since 06/22. Keppra discontinued per ALD. Abdominal distension 06/15/2015 06/16/2015 Overview: TF held. KUB pending. Fever 06/08/2015 08/21/2015 Overview: S/p CT chest/abd 06/18, which showed RLL collapse, with findings suggestive of necrotic PNA, and scattered upper lobe opacities; moderate ascites, cholelithiasis and gallbladder sludging without cholecystitis. Remains afebrile. No leukocytosis. - Urine cx (06/07), neg; Bld cx (06/11) x2 - NGTD - One blood culture (06/06) grew lactobacillus - Bld/UA cx drawn (06/16) - neg - BAL cx (06/20): smear shows GPC in clusters - Bld cx (06/21) NGTD Plan: - Meropenem stopped on 06/22 - Cont PO Vancomycin through hospitalization - F/u BAL cx (06/20) - Smear currently shows GPC in clusters but no organisms on culture; in the setting of resurgence of fevers, restarted on IV Vanc on 06/18->. Continue Vancomycin oral Mild protein-calorie malnutrition 06/04/2015 04/11/2017 Overview: Nutrition following. Ice chips only per beside swallow evaluation. Advanced to popcicle and applesauce 07/19 A/P: Tolerating TF via corpak at goal. Continue TF at current rate, monitor labs. Speech evaluation today Ischemia of hand 06/01/2015 06/05/2015 Overview: Radial a line removed- good doppler signals Rooke mittens placed Heparin infusion for goal pTT 45-55. Ischemia of lower extremity 06/01/201505/13 Overview: Left lower extremity ischemia, has regained DP/PT doppler signals, but calf muscles remains somewhat tense. A/P: CKs normalizing, will stop following CK levels at this time. Vascular surgery signing off, appreciate assistance. Radial artery thrombosis 06/01/2015 09/28/2 015 Overview: Pt noted to have dusky fingers on LUE. Radial art line was in LUE. Art line removed and arterial duplex showed radial artery thrombosis with patent ulnar artery. Pt now with strong pulse in L radial artery. Thrombocytopenia 06/01/2015 06/08/2015 Overview: Required massive transfusion after OR, placed on VA ECMO. Likely consumptive coagulopathy, however PF4 antibody sent given recent initiation of heparin IV. A/P: -Appears to be resolving, platelets 98,000 today. Cardiac insufficiency following cardiac surgery 05/30/2015 06/15/2015 Overview: Severe RV, arrived from OR on iflolan and Epi. iFlolan weaned off A/P: Off epi and iFlolan. Open chest wound 05/30/2015 06/11/2015 Overview: S/p Lung Tx A/P: Dressing intact, continue ATBX while chest is open. Possible closure today Volume overload 05/30/2015 09/02/2015 Overview: + fluid balance due to multiple transfusions and volume replacement for shock in the early post op period. A/P: - 1.9 L/24hr. Continue diuresis, monitor UOP and labs. Personal history of ECMO 05/30/2015 015 Overview: VV ECMO on 05/30, Transitioned to VA ECMO 05/31. VA ECMO weaned 06/03, back on VV ECMO Decannulated on 06/15. Stress hyperglycemia 05/30/2015 06/11/2015 Overview: S/P Lung Tx A/P: Stress hyperglycemia exacerbated by surgery and pressors. RHI infusion for glycemic control. Shock liver - hepatic insufficiency 05/30/2015 06/05/2015 Overview: Markedly elevated LFTs, persistent coagulopathy and bleeding despite near- continuous trasnfusion of blood products. Also recurrent hypoglycemia requiring D50 boluses and D10W infusion. A/P: LFTs downtrending. 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 Progressively hypoxemic after arrival to ICU despite maximal MV support with lung protective ventilation and inhaled epoprostenol. NMB, inverted I:E ratio, high PEEP, low Vt with permissive hypercapnia only helped transiently. VV ECMO placed. Optimize vent settings, BPH, pain control, VV ECMO. Worsening lung compliance d/t hypervolemia (pulm edema) and/ or PGD. Continues on iFlolan. Switched to VA ECMO but maintaining very low Vt plus high PEEP. 06/03 Washout with VA ECMO weaned. VV ECMO initiated. S/p ECMO decannulation 06/15. S/p trach 06/19. Tolerated ~>11hrs on 07/06, but CXR with increased atelectasis following. A/P: CXR with bilateral opacities. Tolerating TC ATC. Continue TC, BPH, pain control, OOB. Consumption coagulopathy 05/29/2015 015 Overview: S/P Lung Transplant. Severe coagulopathic bleeding intraop and immediately postop. Received multiple blood products - plts, cryoppt, FFP and prbcs. Also rewarming for postop hypothermia. A/P: 4u pRBC and 2u platelets distribution coordinator to OR. PF4 antibody negative Chest remains open. Hypotension 05/29/2015 06/15/2015 Overview: Post Lung Tx. Severely vasoplegic intraop and immediately postop requiring multiple inopressors. Received methylene blue bolus intraop. Arrived ICU on epi, norepi, vasopressin and phenylephrine was added in ICU to maintain MAP >60mmHg. Wean for MAP 65 or greater. A/P: Off epi. Maintain MAPs 65-75. Acute blood loss anemia 05/29/2015 09/02/20 15 Overview: H/H remains low but stable. 07/10: H/H 6.03/01--transfused 1 unit 07/11: Transfused for 6.8/21.3 A/P: Monitor H/H, transfuse prn. Acute postoperative pain 05/29/2015 015 Overview: Post op lung Tx A/P: Dilaudid and acetaminophen prn for pain Immunosuppressed status 05/29/2015 09/02/20 15 Overview: S/p b/l lung transplant on 05/29/2015 -immunosuppression and antiimicrobial prophylaxis as per Transplant Pulmonology. -Cont Tac/MMF/Pred. 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 BP has been on the lower side. Oxygen requirement increased to 3L from 2 L Plan: - Will get repeat Echo with bubble study (last one from January 2015). - Place a PA cath and continue to diurese while monitoring her right heart pressures. - Will need IV lasix-received 80 IV lasix on 04/20 and 100 IV lasix on 04/21 - Continue spironolactone. JAMES (acute kidney injury) 04/21/20152014 Overview: Baseline Cr 0.9 (04/09) -> Cr up to 2.4. A/P: JAMES is likely 2/2 ATN given hypotension and hemorrhage. Balance volume repletion with diuresis --> Cr continues to downtrend 1.92 -->1.37 today. Nephrology following - Maintain MAP 65 or greater, avoid nephrotoxic agents. Continue Lasix drip Hyponatremia with excess extracellular fluid vol ume 04/21/2015 06/02/2015 Overview: Likely hypervolemic hyponatremia. Na improved form 126 to 130 this am. Patient is already on torsemide, spironolactone and metolazone at home. Plan: - Continue to diurese as kidney function allows. 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 - O2 requirements as needed (uses 2L NC at home at night). - Continue home O2 - Patient was seen by lung transplant team. Tests required include: Quantitative perfusion scan (done) Gastric emptying study, esophageal manometry and 24hr pH study (ordered) Dental consultation (will need to call ) Social Work (on board) Iron deficiency anemia 01/25/2013 7 Overview: Menstruating female with iron deficiency Cardiomegaly 01/25/2013 09/02/2015 Overview: -- RV enlargement due to PH Exertional dyspnea 01/25/2013 09/02/2015 Mediastinal adenopathy 01/25/2013 5 Hilar adenopathy 01/25/2013 08/21/2015 Overview: Noted on imaging- mother with a history of Sarcoid Could be 2/2 to chronic VTE and pHTN Lung nodules 01/25/2013 09/02/2015 Overview: Noted on imaging Follow Anticoagulation management encounter 01/25/2013 01/26/2013 SUMMARY 01/24/2013 02/02/2013 Overview: This is a 17 year old female with no significant PMH other than migraine and minimal allergies who developed significant SOB within the past 2 months, this progressed to the point where she was unable to walk up 2 flights of stairs and had mild chest pressure with activty. This worsened on a recent trip to [place] where she was on a 6 hour plane ride leading to a near syncopal episode. She presented ot her PCP for fatigue and was found to have anemia, elevated WBC count and on echo a elevated RVSP and dilated RV. She was sent for CT at her local Ed where she was found to have 2 small PE's. Patient sent for further evaluation. At admission upon review of her Ct there is no PE noted, she does however have significant cardiomegaly, increase RVSP and right atrial dilatation, will need to work up cause of PAH PAH (pulmonary artery hypertension) 01/24/2013 08/21/2015 Overview: Found to have elevated RVSP on echo with RV dilatation. ? Sarcoid as she has a family hx as well as polyarthralgia and fatigue - now with hilar lymphadenopathy RHC revealing PA HTN. 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 as angio was suggestive of multiple PEs small and chronic Plan: Further Remodulin titration as an out-patient q weekly, now on 7.5 ng/kg/min PET scan for VALERIA in the chest complete 02/07 Night sweats 01/24/2013 08/21/2015 Overview: Unclear etiology- Awaiting further PAH workup and Rheum w/u is neg so far documented as of this encounter (statuses as of 01/27/2022) [facility] History of Past illness Narrative* Problem Noted Date Resolved Date Abnormality of gait 12/24/2015 04/11/2017 Ascites 07/13/2015 08/21/2015 Overview: Abdominal distension 07/09 KUB: air in stomach, repeat on 07/11: no dilated loops of bowel 07/11: US abdomen + ascites 07/13 Paracentesis ~ 2L straw colored fluid A/P: Abdomen soft, distended. No c/o abd. fullness. Monitor. Seizure 06/22/2015 08/21/2015 Overview: 06/22/2015 0230 Sudden new onset seizures - with generalized rhythmic contractions of all extremities plus facial twitching. Treated lorazepam and midazolam. Stat head CT negative for bleed. No acute metabolic changes on ABG. Concern for withdrawal from opioids - had been on high dose fentanyl infusion for 3 weeks -infusion d'tabitha on 06/18/15. Neuro consulted and continuous EEG monitoring ordered. Cont vEEG showing mild diffuse encephalopathy but no epileptiform form activity. A/P:: No seizure activity since 06/22. Keppra discontinued per ALD. Abdominal distension 06/15/2015 06/16/2015 Overview: TF held. KUB pending. Fever 06/08/2015 08/21/2015 Overview: S/p CT chest/abd 06/18, which showed RLL collapse, with findings suggestive of necrotic PNA, and scattered upper lobe opacities; moderate ascites, cholelithiasis and gallbladder sludging without cholecystitis. Remains afebrile. No leukocytosis. - Urine cx (06/07), neg; Bld cx (06/11) x2 - NGTD - One blood culture (06/06) grew lactobacillus - Bld/UA cx drawn (06/16) - neg - BAL cx (06/20): smear shows GPC in clusters - Bld cx (06/21) NGTD Plan: - Meropenem stopped on 06/22 - Cont PO Vancomycin through hospitalization - F/u BAL cx (06/20) - Smear currently shows GPC in clusters but no organisms on culture; in the setting of resurgence of fevers, restarted on IV Vanc on 06/18->. Continue Vancomycin oral Mild protein-calorie malnutrition 06/04/2015 04/11/2017 Overview: Nutrition following. Ice chips only per beside swallow evaluation. Advanced to popcicle and applesauce 07/19 A/P: Tolerating TF via corpak at goal. Continue TF at current rate, monitor labs. Speech evaluation today Ischemia of hand 06/01/2015 06/05/2015 Overview: Radial a line removed- good doppler signals Rooke mittens placed Heparin infusion for goal pTT 45-55. Ischemia of lower extremity 06/01/2015 09/2 04/2015 Overview: Left lower extremity ischemia, has regained DP/PT doppler signals, but calf muscles remains somewhat tense. A/P: CKs normalizing, will stop following CK levels at this time. Vascular surgery signing off, appreciate assistance. 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 Radial art line was in LUE. Art line removed and arterial duplex showed radial artery thrombosis with patent ulnar artery. Pt now with strong pulse in L radial artery. Thrombocytopenia 06/01/2015 06/08/2015 Overview: Required massive transfusion after OR, placed on VA ECMO. Likely consumptive coagulopathy, however PF4 antibody sent given recent initiation of heparin IV. A/P: -Appears to be resolving, platelets 98,000 today. Cardiac insufficiency following cardiac surgery 05/30/2015 06/15/2015 Overview: Severe RV, arrived from OR on iflolan and Epi. iFlolan weaned off A/P: Off epi and iFlolan. Open chest wound 05/30/2015 06/11/2015 Overview: S/p Lung Tx A/P: Dressing intact, continue ATBX while chest is open. Possible closure today Volume overload 05/30/2015 09/02/2015 Overview: + fluid balance due to multiple transfusions and volume replacement for shock in the early post op period. A/P: - 1.9 L/24hr. Continue diuresis, monitor UOP and labs. Personal history of ECMO 05/30/2015 015 Overview: VV ECMO on 05/30, Transitioned to [facility] ECM[facility] 05/31. [facility] ECMO weaned 06/03, back on VV ECMO Decannulated on 06/15. Stress hyperglycemia 05/30/2015 06/11/2015 Overview: S/P Lung Tx A/P: Stress hyperglycemia exacerbated by surgery and pressors. RHI infusion for glycemic control. Shock liver - hepatic insufficiency 05/30/2015 06/05/2015 Overview: Markedly elevated LFTs, persistent coagulopathy and bleeding despite near- continuous trasnfusion of blood products. Also recurrent hypoglycemia requiring D50 boluses and D10W infusion. A/P: LFTs downtrending. 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 Progressively hypoxemic after arrival to ICU despite maximal MV support with lung protective ventilation and inhaled epoprostenol. NMB, inverted I:E ratio, high PEEP, low Vt with permissive hypercapnia only helped transiently. VV ECMO placed. Optimize vent settings, BPH, pain control, VV ECMO. Worsening lung compliance d/t hypervolemia (pulm edema) and/ or PGD. Continues on iFlolan. Switched to [facility] ECMO but maintaining very low Vt plus high PEEP. 06/03 Washout with [facility] ECMO weaned. VV ECMO initiated. S/p ECMO decannulation 06/15. S/p trach 06/19. Tolerated ~>11hrs on 07/06, but CXR with increased atelectasis following. A/P: CXR with bilateral opacities. Tolerating TC ATC. Continue TC, BPH, pain control, OOB. Consumption coagulopathy 05/29/201506/06/ 015 Overview: S/P Lung Transplant. Severe coagulopathic bleeding intraop and immediately postop. Received multiple blood products - plts, cryoppt, FFP and prbcs. Also rewarming for postop hypothermia. A/P: 4u pRBC and 2u platelets distribution coordinator to OR. PF4 antibody negative Chest remains open. Hypotension 05/29/2015 06/15/2015 Overview: Post Lung Tx. Severely vasoplegic intraop and immediately postop requiring multiple inopressors. Received methylene blue bolus intraop. Arrived ICU on epi, norepi, vasopressin and phenylephrine was added in ICU to maintain MAP >60mmHg. Wean for MAP 65 or greater. A/P: Off epi. Maintain MAPs 65-75. Acute blood loss anemia 05/29/2015 09/02/20 15 Overview: H/H remains low but stable. 07/10: H/H 6.6--transfused 1 unit 07/11: Transfused for 6.8.3 A/P: Monitor H/H, transfuse prn. Acute postoperative pain 05/29/2015 015 Overview: Post op lung Tx A/P: Dilaudid and acetaminophen prn for pain Immunosuppressed status 05/29/2015 09/02/20 15 Overview: S/p b/l lung transplant on 05/29/2015 -immunosuppression and antiimicrobial prophylaxis as per Transplant Pulmonology. -Cont Tac/MMF/Pred. 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 BP has been on the lower side. Oxygen requirement increased to 3L from 2 L Plan: - Will get repeat Echo with bubble study (last one from January 2015). - Place a PA cath and continue to diurese while monitoring her right heart pressures. - Will need IV lasix-received 80 IV lasix on 04/20 and 100 IV lasix on 04/21 - Continue spironolactone. JAMES (acute kidney injury) 04/21/20152014 Overview: Baseline Cr 0.9 (04/09) -> Cr up to 2.4. A/P: JAMES is likely 2/2 ATN given hypotension and hemorrhage. Balance volume repletion with diuresis --> Cr continues to downtrend 1.92 -->1.37 today. Nephrology following - Maintain MAP 65 or greater, avoid nephrotoxic agents. Continue Lasix drip Hyponatremia with excess extracellular fluid vol ume 04/21/2015 06/02/2015 Overview: Likely hypervolemic hyponatremia. Na improved form 126 to 130 this am. Patient is already on torsemide, spironolactone and metolazone at home. Plan: - Continue to diurese as kidney function allows. 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 - O2 requirements as needed (uses 2L NC at home at night). - Continue home O2 - Patient was seen by lung transplant team. Tests required include: Quantitative perfusion scan (done) Gastric emptying study, esophageal manometry and 24hr pH study (ordered) Dental consultation (will need to call ) Social Work (on board) Iron deficiency anemia 01/25/2013 7 Overview: Menstruating female with iron deficiency Cardiomegaly 01/25/2013 09/02/2015 Overview: -- RV enlargement due to PH Exertional dyspnea 01/25/2013 09/02/2015 Mediastinal adenopathy 01/25/2013 5 Hilar adenopathy 01/25/2013 08/21/2015 Overview: Noted on imaging- mother with a history of Sarcoid Could be 2/2 to chronic VTE and pHTN Lung nodules 01/25/2013 09/02/2015 Overview: Noted on imaging Follow Anticoagulation management encounter 01/25/2013 01/26/2013 SUMMARY 01/24/2013 02/02/2013 Overview: This is a 17 year old female with no significant PMH other than migraine and minimal allergies who developed significant SOB within the past 2 months, this progressed to the point where she was unable to walk up 2 flights of stairs and had mild chest pressure with activty. This worsened on a recent trip to [place] where she was on a 6 hour plane ride leading to a near syncopal episode. She presented ot her PCP for fatigue and was found to have anemia, elevated WBC count and on echo a elevated RVSP and dilated RV. She was sent for CT at her local Ed where she was found to have 2 small PE's. Patient sent for further evaluation. At admission upon review of her Ct there is no PE noted, she does however have significant cardiomegaly, increase RVSP and right atrial dilatation, will need to work up cause of PAH PAH (pulmonary artery hypertension) 01/24/2013 08/21/2015 Overview: Found to have elevated RVSP on echo with RV dilatation. ? Sarcoid as she has a family hx as well as polyarthralgia and fatigue - now with hilar lymphadenopathy RHC revealing PA HTN. 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 as angio was suggestive of multiple PEs small and chronic Plan: Further Remodulin titration as an out-patient q weekly, now on 7.5 ng/kg/min PET scan for VALERIA in the chest complete 02/07 Night sweats 01/24/2013 08/21/2015 Overview: Unclear etiology- Awaiting further PAH workup and Rheum w/u is neg so far documented as of this encounter (statuses as of 02/03/2022) [facility] History of Past illness Narrative* Problem Noted Date Resolved Date Abnormality of gait 12/24/2015 04/11/2017 Ascites 07/13/2015 08/21/2015 Overview: Abdominal distension 07/09 KUB: air in stomach, repeat on 07/11: no dilated loops of bowel 07/11: US abdomen + ascites 07/13 Paracentesis ~ 2L straw colored fluid A/P: Abdomen soft, distended. No c/o abd. fullness. Monitor. Seizure 06/22/2015 08/21/2015 Overview: 06/22/2015 0230 Sudden new onset seizures - with generalized rhythmic contractions of all extremities plus facial twitching. Treated lorazepam and midazolam. Stat head CT negative for bleed. No acute metabolic changes on ABG. Concern for withdrawal from opioids - had been on high dose fentanyl infusion for 3 weeks -infusion d'tabitha on 06/18/15. Neuro consulted and continuous EEG monitoring ordered. Cont vEEG showing mild diffuse encephalopathy but no epileptiform form activity. A/P:: No seizure activity since 06/22. Keppra discontinued per ALD. Abdominal distension 06/15/2015 06/16/2015 Overview: TF held. KUB pending. Fever 06/08/2015 08/21/2015 Overview: S/p CT chest/abd 06/18, which showed RLL collapse, with findings suggestive of necrotic PNA, and scattered upper lobe opacities; moderate ascites, cholelithiasis and gallbladder sludging without cholecystitis. Remains afebrile. No leukocytosis. - Urine cx (06/07), neg; Bld cx (06/11) x2 - NGTD - One blood culture (06/06) grew lactobacillus - Bld/UA cx drawn (06/16) - neg - BAL cx (06/20): smear shows GPC in clusters - Bld cx (06/21) NGTD Plan: - Meropenem stopped on 06/22 - Cont PO Vancomycin through hospitalization - F/u BAL cx (06/20) - Smear currently shows GPC in clusters but no organisms on culture; in the setting of resurgence of fevers, restarted on IV Vanc on 06/18->. Continue Vancomycin oral Mild protein-calorie malnutrition 06/04/2015 04/11/2017 Overview: Nutrition following. Ice chips only per beside swallow evaluation. Advanced to popcicle and applesauce 07/19 A/P: Tolerating TF via corpak at goal. Continue TF at current rate, monitor labs. Speech evaluation today Ischemia of hand 06/01/2015 06/05/2015 Overview: Radial a line removed- good doppler signals Rooke mittens placed Heparin infusion for goal pTT 45-55. Ischemia of lower extremity 06/01/201505/13 Overview: Left lower extremity ischemia, has regained DP/PT doppler signals, but calf muscles remains somewhat tense. A/P: CKs normalizing, will stop following CK levels at this time. Vascular surgery signing off, appreciate assistance. 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 Radial art line was in LUE. Art line removed and arterial duplex showed radial artery thrombosis with patent ulnar artery. Pt now with strong pulse in L radial artery. Thrombocytopenia 06/01/2015 06/08/2015 Overview: Required massive transfusion after OR, placed on [facility] ECMO. Likely consumptive coagulopathy, however PF4 antibody sent given recent initiation of heparin IV. A/P: -Appears to be resolving, platelets 98,000 today. Cardiac insufficiency following cardiac surgery 05/30/2015 06/15/2015 Overview: Severe RV, arrived from OR on iflolan and Epi. iFlolan weaned off A/P: Off epi and iFlolan. Open chest wound 05/30/2015 06/11/2015 Overview: S/p Lung Tx A/P: Dressing intact, continue ATBX while chest is open. Possible closure today Volume overload 05/30/2015 09/02/2015 Overview: + fluid balance due to multiple transfusions and volume replacement for shock in the early post op period. A/P: - 1.9 L/24hr. Continue diuresis, monitor UOP and labs. Personal history of ECMO 05/30/2015 015 Overview: VV ECMO on 05/30, Transitioned to [facility] ECMO 05/31. [facility] ECMO weaned 06/03, back on VV ECMO Decannulated on 06/15. Stress hyperglycemia 05/30/2015 06/11/2015 Overview: S/P Lung Tx A/P: Stress hyperglycemia exacerbated by surgery and pressors. RHI infusion for glycemic control. Shock liver - hepatic insufficiency 05/30/2015 06/05/2015 Overview: Markedly elevated LFTs, persistent coagulopathy and bleeding despite near- continuous trasnfusion of blood products. Also recurrent hypoglycemia requiring D50 boluses and D10W infusion. A/P: LFTs downtrending. 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 Progressively hypoxemic after arrival to ICU despite maximal MV support with lung protective ventilation and inhaled epoprostenol. NMB, inverted I:E ratio, high PEEP, low Vt with permissive hypercapnia only helped transiently. VV ECMO placed. Optimize vent settings, BPH, pain control, VV ECMO. Worsening lung compliance d/t hypervolemia (pulm edema) and/ or PGD. Continues on iFlolan. Switched to [facility] ECMO but maintaining very low Vt plus high PEEP. 06/03 Washout with VA ECMO weaned. VV ECMO initiated. S/p ECMO decannulation 06/15. S/p trach 06/19. Tolerated ~>11hrs on 07/06, but CXR with increased atelectasis following. A/P: CXR with bilateral opacities. Tolerating TC ATC. Continue TC, BPH, pain control, OOB. Consumption coagulopathy 05/29/201506/06/ 015 Overview: S/P Lung Transplant. Severe coagulopathic bleeding intraop and immediately postop. Received multiple blood products - plts, cryoppt, FFP and prbcs. Also rewarming for postop hypothermia. A/P: 4u pRBC and 2u platelets distribution coordinator to OR. PF4 antibody negative Chest remains open. Hypotension 05/29/2015 06/15/2015 Overview: Post Lung Tx. Severely vasoplegic intraop and immediately postop requiring multiple inopressors. Received methylene blue bolus intraop. Arrived ICU on epi, norepi, vasopressin and phenylephrine was added in ICU to maintain MAP >60mmHg. Wean for MAP 65 or greater. A/P: Off epi. Maintain MAPs 65-75. Acute blood loss anemia 05/29/2015 09/02/20 15 Overview: H/H remains low but stable. 07/10: H/H 6.6--transfused 1 unit 07/11: Transfused for 6.8.3 A/P: Monitor H/H, transfuse prn. Acute postoperative pain 05/29/2015 015 Overview: Post op lung Tx A/P: Dilaudid and acetaminophen prn for pain Immunosuppressed status 05/29/2015 09/02/20 Overview: S/p b/l lung transplant on 05/29/2015 -immunosuppression and antiimicrobial prophylaxis as per Transplant Pulmonology. -Cont Tac/MMF/Pred. 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 BP has been on the lower side. Oxygen requirement increased to 3L from 2 L Plan: - Will get repeat Echo with bubble study (last one from January 2015). - Place a PA cath and continue to diurese while monitoring her right heart pressures. - Will need IV lasix-received 80 IV lasix on 04/20 and 100 IV lasix on 04/21 - Continue spironolactone. JAMES (acute kidney injury) 04/21/20152014 Overview: Baseline Cr 0.9 (04/09) -> Cr up to 2.4. A/P: JAMES is likely 2/2 ATN given hypotension and hemorrhage. Balance volume repletion with diuresis --> Cr continues to downtrend 1.92 -->1.37 today. Nephrology following - Maintain MAP 65 or greater, avoid nephrotoxic agents. Continue Lasix drip Hyponatremia with excess extracellular fluid vol ume 04/21/2015 06/02/2015 Overview: Likely hypervolemic hyponatremia. Na improved form 126 to 130 this am. Patient is already on torsemide, spironolactone and metolazone at home. Plan: - Continue to diurese as kidney function allows. 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 - O2 requirements as needed (uses 2L NC at home at night). - Continue home O2 - Patient was seen by lung transplant team. Tests required include: Quantitative perfusion scan (done) Gastric emptying study, esophageal manometry and 24hr pH study (ordered) Dental consultation (will need to call ) Social Work (on board) Iron deficiency anemia 01/25/2013 7 Overview: Menstruating female with iron deficiency Cardiomegaly 01/25/2013 09/02/2015 Overview: -- RV enlargement due to PH Exertional dyspnea 01/25/2013 09/02/2015 Mediastinal adenopathy 01/25/2013 5 Hilar adenopathy 01/25/2013 08/21/2015 Overview: Noted on imaging- mother with a history of Sarcoid Could be 2/2 to chronic VTE and pHTN Lung nodules 01/25/2013 09/02/2015 Overview: Noted on imaging Follow Anticoagulation management encounter 01/25/2013 01/26/2013 SUMMARY 01/24/2013 02/02/2013 Overview: This is a 17 year old female with no significant PMH other than migraine and minimal allergies who developed significant SOB within the past 2 months, this progressed to the point where she was unable to walk up 2 flights of stairs and had mild chest pressure with activty. This worsened on a recent trip to [place] where she was on a 6 hour plane ride leading to a near syncopal episode. She presented ot her PCP for fatigue and was found to have anemia, elevated WBC count and on echo a elevated RVSP and dilated RV. She was sent for CT at her local Ed where she was found to have 2 small PE's. Patient sent for further evaluation. At admission upon review of her Ct there is no PE noted, she does however have significant cardiomegaly, increase RVSP and right atrial dilatation, will need to work up cause of PAH PAH (pulmonary artery hypertension) 01/24/2013 08/21/2015 Overview: Found to have elevated RVSP on echo with RV dilatation. ? Sarcoid as she has a family hx as well as polyarthralgia and fatigue - now with hilar lymphadenopathy RHC revealing PA HTN. 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 as angio was suggestive of multiple PEs small and chronic Plan: Further Remodulin titration as an out-patient q weekly, now on 7.5 ng/kg/min PET scan for VALERIA in the chest complete 02/07 Night sweats 01/24/2013 08/21/2015 Overview: Unclear etiology- Awaiting further PAH workup and Rheum w/u is neg so far documented as of this encounter (statuses as of 02/16/2022) [facility] History of Past illness Narrative* Problem Noted Date Resolved Date Abnormality of gait 12/24/2015 04/11/2017 Ascites 07/13/2015 08/21/2015 Overview: Abdominal distension 07/09 KUB: air in stomach, repeat on 07/11: no dilated loops of bowel 07/11: US abdomen + ascites 07/13 Paracentesis ~ 2L straw colored fluid A/P: Abdomen soft, distended. No c/o abd. fullness. Monitor. Seizure 06/22/2015 08/21/2015 Overview: 06/22/2015 0230 Sudden new onset seizures - with generalized rhythmic contractions of all extremities plus facial twitching. Treated lorazepam and midazolam. Stat head CT negative for bleed. No acute metabolic changes on ABG. Concern for withdrawal from opioids - had been on high dose fentanyl infusion for 3 weeks -infusion d'tabitha on 06/18/15. Neuro consulted and continuous EEG monitoring ordered. Cont vEEG showing mild diffuse encephalopathy but no epileptiform form activity. A/P:: No seizure activity since 06/22. Keppra discontinued per ALD. Abdominal distension 06/15/2015 06/16/2015 Overview: TF held. KUB pending. Fever 06/08/2015 08/21/2015 Overview: S/p CT chest/abd 06/18, which showed RLL collapse, with findings suggestive of necrotic PNA, and scattered upper lobe opacities; moderate ascites, cholelithiasis and gallbladder sludging without cholecystitis. Remains afebrile. No leukocytosis. - Urine cx (06/07), neg; Bld cx (06/11) x2 - NGTD - One blood culture (06/06) grew lactobacillus - Bld/UA cx drawn (06/16) - neg - BAL cx (06/20): smear shows GPC in clusters - Bld cx (06/21) NGTD Plan: - Meropenem stopped on 06/22 - Cont PO Vancomycin through hospitalization - F/u BAL cx (06/20) - Smear currently shows GPC in clusters but no organisms on culture; in the setting of resurgence of fevers, restarted on IV Vanc on 06/18->. Continue Vancomycin oral Mild protein-calorie malnutrition 06/04/2015 04/11/2017 Overview: Nutrition following. Ice chips only per beside swallow evaluation. Advanced to popcicle and applesauce 07/19 A/P: Tolerating TF via corpak at goal. Continue TF at current rate, monitor labs. Speech evaluation today Ischemia of hand 06/01/2015 06/05/2015 Overview: Radial a line removed- good doppler signals Dexter ndiaye placed Heparin infusion for goal pTT 45-55. Ischemia of lower extremity 06/01/201505/13 Overview: Left lower extremity ischemia, has regained DP/PT doppler signals, but calf muscles remains somewhat tense. A/P: CKs normalizing, will stop following CK levels at this time. Vascular surgery signing off, appreciate assistance. 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 Radial art line was in LUE. Art line removed and arterial duplex showed radial artery thrombosis with patent ulnar artery. Pt now with strong pulse in L radial artery. Thrombocytopenia 06/01/2015 06/08/2015 Overview: Required massive transfusion after OR, placed on VA ECMO. Likely consumptive coagulopathy, however PF4 antibody sent given recent initiation of heparin IV. A/P: -Appears to be resolving, platelets 98,000 today. Cardiac insufficiency following cardiac surgery 05/30/2015 06/15/2015 Overview: Severe RV, arrived from OR on iflolan and Epi. iFlolan weaned off A/P: Off epi and iFlolan. Open chest wound 05/30/2015 06/11/2015 Overview: S/p Lung Tx A/P: Dressing intact, continue ATBX while chest is open. Possible closure today Volume overload 05/30/2015 09/02/2015 Overview: + fluid balance due to multiple transfusions and volume replacement for shock in the early post op period. A/P: - 1.9 L/24hr. Continue diuresis, monitor UOP and labs. Personal history of ECMO 05/30/2015 015 Overview: VV ECMO on 05/30, Transitioned to [facility] ECMO 05/31. VA ECMO weaned 06/03, back on VV ECMO Decannulated on 06/15. Stress hyperglycemia 05/30/2015 06/11/2015 Overview: S/P Lung Tx A/P: Stress hyperglycemia exacerbated by surgery and pressors. RHI infusion for glycemic control. Shock liver - hepatic insufficiency 05/30/2015 06/05/2015 Overview: Markedly elevated LFTs, persistent coagulopathy and bleeding despite near- continuous trasnfusion of blood products. Also recurrent hypoglycemia requiring D50 boluses and D10W infusion. A/P: LFTs downtrending. 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 Progressively hypoxemic after arrival to ICU despite maximal MV support with lung protective ventilation and inhaled epoprostenol. NMB, inverted I:E ratio, high PEEP, low Vt with permissive hypercapnia only helped transiently. VV ECMO placed. Optimize vent settings, BPH, pain control, VV ECMO. Worsening lung compliance d/t hypervolemia (pulm edema) and/ or PGD. Continues on iFlolan. Switched to VA ECMO but maintaining very low Vt plus high PEEP. 06/03 Washout with VA ECMO weaned. VV ECMO initiated. S/p ECMO decannulation 06/15. S/p trach 06/19. Tolerated ~>11hrs on 07/06, but CXR with increased atelectasis following. A/P: CXR with bilateral opacities. Tolerating TC ATC. Continue TC, BPH, pain control, OOB. Consumption coagulopathy 05/29/201506/06/ 015 Overview: S/P Lung Transplant. Severe coagulopathic bleeding intraop and immediately postop. Received multiple blood products - plts, cryoppt, FFP and prbcs. Also rewarming for postop hypothermia. A/P: 4u pRBC and 2u platelets distribution coordinator to OR. PF4 antibody negative Chest remains open. Hypotension 05/29/2015 06/15/2015 Overview: Post Lung Tx. Severely vasoplegic intraop and immediately postop requiring multiple inopressors. Received methylene blue bolus intraop. Arrived ICU on epi, norepi, vasopressin and phenylephrine was added in ICU to maintain MAP >60mmHg. Wean for MAP 65 or greater. A/P: Off epi. Maintain MAPs 65-75. Acute blood loss anemia 05/29/2015 09/02/20 15 Overview: H/H remains low but stable. 07/10: H/H 6.6--transfused 1 unit 07/11: Transfused for 6.05/01.3 A/P: Monitor H/H, transfuse prn. Acute postoperative pain 05/29/2015 015 Overview: Post op lung Tx A/P: Dilaudid and acetaminophen prn for pain Immunosuppressed status 05/29/2015 09/02/20 15 Overview: S/p b/l lung transplant on 05/29/2015 -immunosuppression and antiimicrobial prophylaxis as per Transplant Pulmonology. -Cont Tac/MMF/Pred. 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 BP has been on the lower side. Oxygen requirement increased to 3L from 2 L Plan: - Will get repeat Echo with bubble study (last one from January 2015). - Place a PA cath and continue to diurese while monitoring her right heart pressures. - Will need IV lasix-received 80 IV lasix on 04/20 and 100 IV lasix on 04/21 - Continue spironolactone. JAMES (acute kidney injury) 04/21/20152014 Overview: Baseline Cr 0.9 (04/09) -> Cr up to 2.4. A/P: JAMES is likely 2/2 ATN given hypotension and hemorrhage. Balance volume repletion with diuresis --> Cr continues to downtrend 1.92 -->1.37 today. Nephrology following - Maintain MAP 65 or greater, avoid nephrotoxic agents. Continue Lasix drip Hyponatremia with excess extracellular fluid vol ume 04/21/2015 06/02/2015 Overview: Likely hypervolemic hyponatremia. Na improved form 126 to 130 this am. Patient is already on torsemide, spironolactone and metolazone at home. Plan: - Continue to diurese as kidney function allows. 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 - O2 requirements as needed (uses 2L NC at home at night). - Continue home O2 - Patient was seen by lung transplant team. Tests required include: Quantitative perfusion scan (done) Gastric emptying study, esophageal manometry and 24hr pH study (ordered) Dental consultation (will need to call ) Social Work (on board) Iron deficiency anemia 01/25/2013 7 Overview: Menstruating female with iron deficiency Cardiomegaly 01/25/2013 09/02/2015 Overview: -- RV enlargement due to PH Exertional dyspnea 01/25/2013 09/02/2015 Mediastinal adenopathy 01/25/2013 5 Hilar adenopathy 01/25/2013 08/21/2015 Overview: Noted on imaging- mother with a history of Sarcoid Could be 2/2 to chronic VTE and pHTN Lung nodules 01/25/2013 09/02/2015 Overview: Noted on imaging Follow Anticoagulation management encounter 01/25/2013 01/26/2013 SUMMARY 01/24/2013 02/02/2013 Overview: This is a 17 year old female with no significant PMH other than migraine and minimal allergies who developed significant SOB within the past 2 months, this progressed to the point where she was unable to walk up 2 flights of stairs and had mild chest pressure with activty. This worsened on a recent trip to [place] where she was on a 6 hour plane ride leading to a near syncopal episode. She presented ot her PCP for fatigue and was found to have anemia, elevated WBC count and on echo a elevated RVSP and dilated RV. She was sent for CT at her local Ed where she was found to have 2 small PE's. Patient sent for further evaluation. At admission upon review of her Ct there is no PE noted, she does however have significant cardiomegaly, increase RVSP and right atrial dilatation, will need to work up cause of PAH PAH (pulmonary artery hypertension) 01/24/2013 08/21/2015 Overview: Found to have elevated RVSP on echo with RV dilatation. ? Sarcoid as she has a family hx as well as polyarthralgia and fatigue - now with hilar lymphadenopathy RHC revealing PA HTN. 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 as angio was suggestive of multiple PEs small and chronic Plan: Further Remodulin titration as an out-patient q weekly, now on 7.5 ng/kg/min PET scan for VALERIA in the chest complete 02/07 Night sweats 01/24/2013 08/21/2015 Overview: Unclear etiology- Awaiting further PAH workup and Rheum w/u is neg so far documented as of this encounter (statuses as of 02/17/2022) [facility] History of Past illness Narrative* Problem Noted Date Resolved Date Abnormality of gait 12/24/2015 04/11/2017 Ascites 07/13/2015 08/21/2015 Overview: Abdominal distension 07/09 KUB: air in stomach, repeat on 07/11: no dilated loops of bowel 07/11: US abdomen + ascites 07/13 Paracentesis ~ 2L straw colored fluid A/P: Abdomen soft, distended. No c/o abd. fullness. Monitor. Seizure 06/22/2015 08/21/2015 Overview: 06/22/2015 0230 Sudden new onset seizures - with generalized rhythmic contractions of all extremities plus facial twitching. Treated lorazepam and midazolam. Stat head CT negative for bleed. No acute metabolic changes on ABG. Concern for withdrawal from opioids - had been on high dose fentanyl infusion for 3 weeks -infusion d'tabitha on 06/18/15. Neuro consulted and continuous EEG monitoring ordered. Cont vEEG showing mild diffuse encephalopathy but no epileptiform form activity. A/P:: No seizure activity since 06/22. Keppra discontinued per ALD. Abdominal distension 06/15/2015 06/16/2015 Overview: TF held. KUB pending. Fever 06/08/2015 08/21/2015 Overview: S/p CT chest/abd 06/18, which showed RLL collapse, with findings suggestive of necrotic PNA, and scattered upper lobe opacities; moderate ascites, cholelithiasis and gallbladder sludging without cholecystitis. Remains afebrile. No leukocytosis. - Urine cx (06/07), neg; Bld cx (06/11) x2 - NGTD - One blood culture (06/06) grew lactobacillus - Bld/UA cx drawn (06/16) - neg - BAL cx (06/20): smear shows GPC in clusters - Bld cx (06/21) NGTD Plan: - Meropenem stopped on 06/22 - Cont PO Vancomycin through hospitalization - F/u BAL cx (06/20) - Smear currently shows GPC in clusters but no organisms on culture; in the setting of resurgence of fevers, restarted on IV Vanc on 06/18->. Continue Vancomycin oral Mild protein-calorie malnutrition 06/04/2015 04/11/2017 Overview: Nutrition following. Ice chips only per beside swallow evaluation. Advanced to popcicle and applesauce 07/19 A/P: Tolerating TF via corpak at goal. Continue TF at current rate, monitor labs. Speech evaluation today Ischemia of hand 06/01/2015 06/05/2015 Overview: Radial a line removed- good doppler signals Rooke mittens placed Heparin infusion for goal pTT 45-55. Ischemia of lower extremity 06/01/201505/13 Overview: Left lower extremity ischemia, has regained DP/PT doppler signals, but calf muscles remains somewhat tense. A/P: CKs normalizing, will stop following CK levels at this time. Vascular surgery signing off, appreciate assistance. 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 Radial art line was in LUE. Art line removed and arterial duplex showed radial artery thrombosis with patent ulnar artery. Pt now with strong pulse in L radial artery. Thrombocytopenia 06/01/2015 06/08/2015 Overview: Required massive transfusion after OR, placed on VA ECMO. Likely consumptive coagulopathy, however PF4 antibody sent given recent initiation of heparin IV. A/P: -Appears to be resolving, platelets 98,000 today. Cardiac insufficiency following cardiac surgery 05/30/2015 06/15/2015 Overview: Severe RV, arrived from OR on iflolan and Epi. iFlolan weaned off A/P: Off epi and iFlolan. Open chest wound 05/30/2015 06/11/2015 Overview: S/p Lung Tx A/P: Dressing intact, continue ATBX while chest is open. Possible closure today Volume overload 05/30/2015 09/02/2015 Overview: + fluid balance due to multiple transfusions and volume replacement for shock in the early post op period. A/P: - 1.9 L/24hr. Continue diuresis, monitor UOP and labs. Personal history of ECMO 05/30/2015 015 Overview: VV ECMO on 05/30, Transitioned to VA ECMO 05/31. VA ECMO weaned 06/03, back on VV ECMO Decannulated on 06/15. Stress hyperglycemia 05/30/2015 06/11/2015 Overview: S/P Lung Tx A/P: Stress hyperglycemia exacerbated by surgery and pressors. RHI infusion for glycemic control. Shock liver - hepatic insufficiency 05/30/2015 06/05/2015 Overview: Markedly elevated LFTs, persistent coagulopathy and bleeding despite near- continuous trasnfusion of blood products. Also recurrent hypoglycemia requiring D50 boluses and D10W infusion. A/P: LFTs downtrending. 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 Progressively hypoxemic after arrival to ICU despite maximal MV support with lung protective ventilation and inhaled epoprostenol. NMB, inverted I:E ratio, high PEEP, low Vt with permissive hypercapnia only helped transiently. VV ECMO placed. Optimize vent settings, BPH, pain control, VV ECMO. Worsening lung compliance d/t hypervolemia (pulm edema) and/ or PGD. Continues on iFlolan. Switched to VA ECMO but maintaining very low Vt plus high PEEP. 06/03 Washout with VA ECMO weaned. VV ECMO initiated. S/p ECMO decannulation 06/15. S/p trach 06/19. Tolerated ~>11hrs on 07/06, but CXR with increased atelectasis following. A/P: CXR with bilateral opacities. Tolerating TC ATC. Continue TC, BPH, pain control, OOB. Consumption coagulopathy 05/29/2015 015 Overview: S/P Lung Transplant. Severe coagulopathic bleeding intraop and immediately postop. Received multiple blood products - plts, cryoppt, FFP and prbcs. Also rewarming for postop hypothermia. A/P: 4u pRBC and 2u platelets distribution coordinator to OR. PF4 antibody negative Chest remains open. Hypotension 05/29/2015 06/15/2015 Overview: Post Lung Tx. Severely vasoplegic intraop and immediately postop requiring multiple inopressors. Received methylene blue bolus intraop. Arrived ICU on epi, norepi, vasopressin and phenylephrine was added in ICU to maintain MAP >60mmHg. Wean for MAP 65 or greater. A/P: Off epi. Maintain MAPs 65-75. Acute blood loss anemia 05/29/2015 09/02/20 15 Overview: H/H remains low but stable. 07/10: H/H 6.6/21--transfused 1 unit 07/11: Transfused for 6.8.3 A/P: Monitor H/H, transfuse prn. Acute postoperative pain 05/29/2015 015 Overview: Post op lung Tx A/P: Dilaudid and acetaminophen prn for pain Immunosuppressed status 05/29/2015 09/02/20 15 Overview: S/p b/l lung transplant on 05/29/2015 -immunosuppression and antiimicrobial prophylaxis as per Transplant Pulmonology. -Cont Tac/MMF/Pred. 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 BP has been on the lower side. Oxygen requirement increased to 3L from 2 L Plan: - Will get repeat Echo with bubble study (last one from January 2015). - Place a PA cath and continue to diurese while monitoring her right heart pressures. - Will need IV lasix-received 80 IV lasix on 04/20 and 100 IV lasix on 04/21 - Continue spironolactone. JAMES (acute kidney injury) 04/21/20152014 Overview: Baseline Cr 0.9 (04/09) -> Cr up to 2.4. A/P: JAMES is likely 2/2 ATN given hypotension and hemorrhage. Balance volume repletion with diuresis --> Cr continues to downtrend 1.92 -->1.37 today. Nephrology following - Maintain MAP 65 or greater, avoid nephrotoxic agents. Continue Lasix drip Hyponatremia with excess extracellular fluid vol ume 04/21/2015 06/02/2015 Overview: Likely hypervolemic hyponatremia. Na improved form 126 to 130 this am. Patient is already on torsemide, spironolactone and metolazone at home. Plan: - Continue to diurese as kidney function allows. 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 - O2 requirements as needed (uses 2L NC at home at night). - Continue home O2 - Patient was seen by lung transplant team. Tests required include: Quantitative perfusion scan (done) Gastric emptying study, esophageal manometry and 24hr pH study (ordered) Dental consultation (will need to call ) Social Work (on board) Iron deficiency anemia 01/25/2013 7 Overview: Menstruating female with iron deficiency Cardiomegaly 01/25/2013 09/02/2015 Overview: -- RV enlargement due to PH Exertional dyspnea 01/25/2013 09/02/2015 Mediastinal adenopathy 01/25/2013 5 Hilar adenopathy 01/25/2013 08/21/2015 Overview: Noted on imaging- mother with a history of Sarcoid Could be 2/2 to chronic VTE and pHTN Lung nodules 01/25/2013 09/02/2015 Overview: Noted on imaging Follow Anticoagulation management encounter 01/25/2013 01/26/2013 SUMMARY 01/24/2013 02/02/2013 Overview: This is a 17 year old female with no significant PMH other than migraine and minimal allergies who developed significant SOB within the past 2 months, this progressed to the point where she was unable to walk up 2 flights of stairs and had mild chest pressure with activty. This worsened on a recent trip to [place] where she was on a 6 hour plane ride leading to a near syncopal episode. She presented ot her PCP for fatigue and was found to have anemia, elevated WBC count and on echo a elevated RVSP and dilated RV. She was sent for CT at her local Ed where she was found to have 2 small PE's. Patient sent for further evaluation. At admission upon review of her Ct there is no PE noted, she does however have significant cardiomegaly, increase RVSP and right atrial dilatation, will need to work up cause of PAH PAH (pulmonary artery hypertension) 01/24/2013 08/21/2015 Overview: Found to have elevated RVSP on echo with RV dilatation. ? Sarcoid as she has a family hx as well as polyarthralgia and fatigue - now with hilar lymphadenopathy RHC revealing PA HTN. 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 as angio was suggestive of multiple PEs small and chronic Plan: Further Remodulin titration as an out-patient q weekly, now on 7.5 ng/kg/min PET scan for VALERIA in the chest complete 02/07 Night sweats 01/24/2013 08/21/2015 Overview: Unclear etiology- Awaiting further PAH workup and Rheum w/u is neg so far documented as of this encounter (statuses as of 02/17/2022) [facility] History of Past illness Narrative* Problem Noted Date Resolved Date Abnormality of gait 12/24/2015 04/11/2017 Ascites 07/13/2015 08/21/2015 Overview: Abdominal distension 07/09 KUB: air in stomach, repeat on 07/11: no dilated loops of bowel 07/11: US abdomen + ascites 07/13 Paracentesis ~ 2L straw colored fluid A/P: Abdomen soft, distended. No c/o abd. fullness. Monitor. Seizure 06/22/2015 08/21/2015 Overview: 06/22/2015 0230 Sudden new onset seizures - with generalized rhythmic contractions of all extremities plus facial twitching. Treated lorazepam and midazolam. Stat head CT negative for bleed. No acute metabolic changes on ABG. Concern for withdrawal from opioids - had been on high dose fentanyl infusion for 3 weeks -infusion d'tabitha on 06/18/15. Neuro consulted and continuous EEG monitoring ordered. Cont vEEG showing mild diffuse encephalopathy but no epileptiform form activity. A/P:: No seizure activity since 06/22. Keppra discontinued per ALD. Abdominal distension 06/15/2015 06/16/2015 Overview: TF held. KUB pending. Fever 06/08/2015 08/21/2015 Overview: S/p CT chest/abd 06/18, which showed RLL collapse, with findings suggestive of necrotic PNA, and scattered upper lobe opacities; moderate ascites, cholelithiasis and gallbladder sludging without cholecystitis. Remains afebrile. No leukocytosis. - Urine cx (06/07), neg; Bld cx (06/11) x2 - NGTD - One blood culture (06/06) grew lactobacillus - Bld/UA cx drawn (06/16) - neg - BAL cx (06/20): smear shows GPC in clusters - Bld cx (06/21) NGTD Plan: - Meropenem stopped on 06/22 - Cont PO Vancomycin through hospitalization - F/u BAL cx (06/20) - Smear currently shows GPC in clusters but no organisms on culture; in the setting of resurgence of fevers, restarted on IV Vanc on 06/18->. Continue Vancomycin oral Mild protein-calorie malnutrition 06/04/2015 04/11/2017 Overview: Nutrition following. Ice chips only per beside swallow evaluation. Advanced to popcicle and applesauce 07/19 A/P: Tolerating TF via corpak at goal. Continue TF at current rate, monitor labs. Speech evaluation today Ischemia of hand 06/01/2015 06/05/2015 Overview: Radial a line removed- good doppler signals Rooke mittens placed Heparin infusion for goal pTT 45-55. Ischemia of lower extremity 06/01/201505/13 Overview: Left lower extremity ischemia, has regained DP/PT doppler signals, but calf muscles remains somewhat tense. A/P: CKs normalizing, will stop following CK levels at this time. Vascular surgery signing off, appreciate assistance. 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 Radial art line was in LUE. Art line removed and arterial duplex showed radial artery thrombosis with patent ulnar artery. Pt now with strong pulse in L radial artery. Thrombocytopenia 06/01/2015 06/08/2015 Overview: Required massive transfusion after OR, placed on VA ECMO. Likely consumptive coagulopathy, however PF4 antibody sent given recent initiation of heparin IV. A/P: -Appears to be resolving, platelets 98,000 today. Cardiac insufficiency following cardiac surgery 05/30/2015 06/15/2015 Overview: Severe RV, arrived from OR on iflolan and Epi. iFlolan weaned off A/P: Off epi and iFlolan. Open chest wound 05/30/2015 06/11/2015 Overview: S/p Lung Tx A/P: Dressing intact, continue ATBX while chest is open. Possible closure today Volume overload 05/30/2015 09/02/2015 Overview: + fluid balance due to multiple transfusions and volume replacement for shock in the early post op period. A/P: - 1.9 L/24hr. Continue diuresis, monitor UOP and labs. Personal history of ECMO 05/30/2015 015 Overview: VV ECMO on 05/30, Transitioned to VA ECMO 05/31. VA ECMO weaned 06/03, back on VV ECMO Decannulated on 06/15. Stress hyperglycemia 05/30/2015 06/11/2015 Overview: S/P Lung Tx A/P: Stress hyperglycemia exacerbated by surgery and pressors. RHI infusion for glycemic control. Shock liver - hepatic insufficiency 05/30/2015 06/05/2015 Overview: Markedly elevated LFTs, persistent coagulopathy and bleeding despite near- continuous trasnfusion of blood products. Also recurrent hypoglycemia requiring D50 boluses and D10W infusion. A/P: LFTs downtrending. 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 Progressively hypoxemic after arrival to ICU despite maximal MV support with lung protective ventilation and inhaled epoprostenol. NMB, inverted I:E ratio, high PEEP, low Vt with permissive hypercapnia only helped transiently. VV ECMO placed. Optimize vent settings, BPH, pain control, VV ECMO. Worsening lung compliance d/t hypervolemia (pulm edema) and/ or PGD. Continues on iFlolan. Switched to VA ECMO but maintaining very low Vt plus high PEEP. 06/03 Washout with VA ECMO weaned. VV ECMO initiated. S/p ECMO decannulation 06/15. S/p trach 06/19. Tolerated ~>11hrs on 07/06, but CXR with increased atelectasis following. A/P: CXR with bilateral opacities. Tolerating TC ATC. Continue TC, BPH, pain control, OOB. Consumption coagulopathy 05/29/2015 015 Overview: S/P Lung Transplant. Severe coagulopathic bleeding intraop and immediately postop. Received multiple blood products - plts, cryoppt, FFP and prbcs. Also rewarming for postop hypothermia. A/P: 4u pRBC and 2u platelets distribution coordinator to OR. PF4 antibody negative Chest remains open. Hypotension 05/29/2015 06/15/2015 Overview: Post Lung Tx. Severely vasoplegic intraop and immediately postop requiring multiple inopressors. Received methylene blue bolus intraop. Arrived ICU on epi, norepi, vasopressin and phenylephrine was added in ICU to maintain MAP >60mmHg. Wean for MAP 65 or greater. A/P: Off epi. Maintain MAPs 65-75. Acute blood loss anemia 05/29/2015 09/02/20 15 Overview: H/H remains low but stable. 07/10: H/H 6.6/21--transfused 1 unit 07/11: Transfused for 6.8.3 A/P: Monitor H/H, transfuse prn. Acute postoperative pain 05/29/2015 015 Overview: Post op lung Tx A/P: Dilaudid and acetaminophen prn for pain Immunosuppressed status 05/29/2015 09/02/20 15 Overview: S/p b/l lung transplant on 05/29/2015 -immunosuppression and antiimicrobial prophylaxis as per Transplant Pulmonology. -Cont Tac/MMF/Pred. 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 BP has been on the lower side. Oxygen requirement increased to 3L from 2 L Plan: - Will get repeat Echo with bubble study (last one from January 2015). - Place a PA cath and continue to diurese while monitoring her right heart pressures. - Will need IV lasix-received 80 IV lasix on 04/20 and 100 IV lasix on 04/21 - Continue spironolactone. JAMES (acute kidney injury) 04/21/20152014 Overview: Baseline Cr 0.9 (04/09) -> Cr up to 2.4. A/P: JAMES is likely 2/2 ATN given hypotension and hemorrhage. Balance volume repletion with diuresis --> Cr continues to downtrend 1.92 -->1.37 today. Nephrology following - Maintain MAP 65 or greater, avoid nephrotoxic agents. Continue Lasix drip Hyponatremia with excess extracellular fluid vol ume 04/21/2015 06/02/2015 Overview: Likely hypervolemic hyponatremia. Na improved form 126 to 130 this am. Patient is already on torsemide, spironolactone and metolazone at home. Plan: - Continue to diurese as kidney function allows. 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 - O2 requirements as needed (uses 2L NC at home at night). - Continue home O2 - Patient was seen by lung transplant team. Tests required include: Quantitative perfusion scan (done) Gastric emptying study, esophageal manometry and 24hr pH study (ordered) Dental consultation (will need to call ) Social Work (on board) Iron deficiency anemia 01/25/2013 Overview: Menstruating female with iron deficiency Cardiomegaly 01/25/2013 09/02/2015 Overview: -- RV enlargement due to PH Exertional dyspnea 01/25/2013 09/02/2015 Mediastinal adenopathy 01/25/2013 5 Hilar adenopathy 01/25/2013 08/21/2015 Overview: Noted on imaging- mother with a history of Sarcoid Could be 2/2 to chronic VTE and pHTN Lung nodules 01/25/2013 09/02/2015 Overview: Noted on imaging Follow Anticoagulation management encounter 01/25/2013 01/26/2013 SUMMARY 01/24/2013 02/02/2013 Overview: This is a 17 year old female with no significant PMH other than migraine and minimal allergies who developed significant SOB within the past 2 months, this progressed to the point where she was unable to walk up 2 flights of stairs and had mild chest pressure with activty. This worsened on a recent trip to [place] where she was on a 6 hour plane ride leading to a near syncopal episode. She presented ot her PCP for fatigue and was found to have anemia, elevated WBC count and on echo a elevated RVSP and dilated RV. She was sent for CT at her local Ed where she was found to have 2 small PE's. Patient sent for further evaluation. At admission upon review of her Ct there is no PE noted, she does however have significant cardiomegaly, increase RVSP and right atrial dilatation, will need to work up cause of PAH PAH (pulmonary artery hypertension) 01/24/2013 08/21/2015 Overview: Found to have elevated RVSP on echo with RV dilatation. ? Sarcoid as she has a family hx as well as polyarthralgia and fatigue - now with hilar lymphadenopathy RHC revealing PA HTN. 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 as angio was suggestive of multiple PEs small and chronic Plan: Further Remodulin titration as an out-patient q weekly, now on 7.5 ng/kg/min PET scan for VALERIA in the chest complete 02/07 Night sweats 01/24/2013 08/21/2015 Overview: Unclear etiology- Awaiting further PAH workup and Rheum w/u is neg so far documented as of this encounter (statuses as of 02/17/2022) [facility]04-14-2016 History of Past illness Narrative* Problem Noted Date Resolved Date Abnormality of gait 12/24/2015 04/11/2017 Ascites 07/13/2015 08/21/2015 Overview: Abdominal distension 07/09 KUB: air in stomach, repeat on 07/11: no dilated loops of bowel 07/11: US abdomen + ascites 07/13 Paracentesis ~ 2L straw colored fluid A/P: Abdomen soft, distended. No c/o abd. fullness. Monitor. Seizure 06/22/2015 08/21/2015 Overview: 06/22/2015 0230 Sudden new onset seizures - with generalized rhythmic contractions of all extremities plus facial twitching. Treated lorazepam and midazolam. Stat head CT negative for bleed. No acute metabolic changes on ABG. Concern for withdrawal from opioids - had been on high dose fentanyl infusion for 3 weeks -infusion d'tabitha on 06/18/15. Neuro consulted and continuous EEG monitoring ordered. Cont vEEG showing mild diffuse encephalopathy but no epileptiform form activity. A/P:: No seizure activity since 06/22. Keppra discontinued per ALD. Abdominal distension 06/15/2015 06/16/2015 Overview: TF held. KUB pending. Fever 06/08/2015 08/21/2015 Overview: S/p CT chest/abd 06/18, which showed RLL collapse, with findings suggestive of necrotic PNA, and scattered upper lobe opacities; moderate ascites, cholelithiasis and gallbladder sludging without cholecystitis. Remains afebrile. No leukocytosis. - Urine cx (06/07), neg; Bld cx (06/11) x2 - NGTD - One blood culture (06/06) grew lactobacillus - Bld/UA cx drawn (06/16) - neg - BAL cx (06/20): smear shows GPC in clusters - Bld cx (06/21) NGTD Plan: - Meropenem stopped on 06/22 - Cont PO Vancomycin through hospitalization - F/u BAL cx (06/20) - Smear currently shows GPC in clusters but no organisms on culture; in the setting of resurgence of fevers, restarted on IV Vanc on 06/18->. Continue Vancomycin oral Mild protein-calorie malnutrition 06/04/2015 04/11/2017 Overview: Nutrition following. Ice chips only per beside swallow evaluation. Advanced to popcicle and applesauce 07/19 A/P: Tolerating TF via corpak at goal. Continue TF at current rate, monitor labs. Speech evaluation today Ischemia of hand 06/01/2015 06/05/2015 Overview: Radial a line removed- good doppler signals Rooke mittens placed Heparin infusion for goal pTT 45-55. Ischemia of lower extremity 06/01/201505/13 Overview: Left lower extremity ischemia, has regained DP/PT doppler signals, but calf muscles remains somewhat tense. A/P: CKs normalizing, will stop following CK levels at this time. Vascular surgery signing off, appreciate assistance. 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 Radial art line was in LUE. Art line removed and arterial duplex showed radial artery thrombosis with patent ulnar artery. Pt now with strong pulse in L radial artery. Thrombocytopenia 06/01/2015 06/08/2015 Overview: Required massive transfusion after OR, placed on [facility] ECMO. Likely consumptive coagulopathy, however PF4 antibody sent given recent initiation of heparin IV. A/P: -Appears to be resolving, platelets 98,000 today. Cardiac insufficiency following cardiac surgery 05/30/2015 06/15/2015 Overview: Severe RV, arrived from OR on iflolan and Epi. iFlolan weaned off A/P: Off epi and iFlolan. Open chest wound 05/30/2015 06/11/2015 Overview: S/p Lung Tx A/P: Dressing intact, continue ATBX while chest is open. Possible closure today Volume overload 05/30/2015 09/02/2015 Overview: + fluid balance due to multiple transfusions and volume replacement for shock in the early post op period. A/P: - 1.9 L/24hr. Continue diuresis, monitor UOP and labs. Personal history of ECMO 05/30/2015 015 Overview: VV ECMO on 05/30, Transitioned to VA ECMO 05/31. VA ECMO weaned 06/03, back on VV ECMO Decannulated on 06/15. Stress hyperglycemia 05/30/2015 06/11/2015 Overview: S/P Lung Tx A/P: Stress hyperglycemia exacerbated by surgery and pressors. RHI infusion for glycemic control. Shock liver - hepatic insufficiency 05/30/2015 06/05/2015 Overview: Markedly elevated LFTs, persistent coagulopathy and bleeding despite near- continuous trasnfusion of blood products. Also recurrent hypoglycemia requiring D50 boluses and D10W infusion. A/P: LFTs downtrending. 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 Progressively hypoxemic after arrival to ICU despite maximal MV support with lung protective ventilation and inhaled epoprostenol. NMB, inverted I:E ratio, high PEEP, low Vt with permissive hypercapnia only helped transiently. VV ECMO placed. Optimize vent settings, BPH, pain control, VV ECMO. Worsening lung compliance d/t hypervolemia (pulm edema) and/ or PGD. Continues on iFlolan. Switched to VA ECMO but maintaining very low Vt plus high PEEP. 06/03 Washout with VA ECMO weaned. VV ECMO initiated. S/p ECMO decannulation 06/15. S/p trach 06/19. Tolerated ~>11hrs on 07/06, but CXR with increased atelectasis following. A/P: CXR with bilateral opacities. Tolerating TC ATC. Continue TC, BPH, pain control, OOB. Consumption coagulopathy 05/29/2015 015 Overview: S/P Lung Transplant. Severe coagulopathic bleeding intraop and immediately postop. Received multiple blood products - plts, cryoppt, FFP and prbcs. Also rewarming for postop hypothermia. A/P: 4u pRBC and 2u platelets distribution coordinator to OR. PF4 antibody negative Chest remains open. Hypotension 05/29/2015 06/15/2015 Overview: Post Lung Tx. Severely vasoplegic intraop and immediately postop requiring multiple inopressors. Received methylene blue bolus intraop. Arrived ICU on epi, norepi, vasopressin and phenylephrine was added in ICU to maintain MAP >60mmHg. Wean for MAP 65 or greater. A/P: Off epi. Maintain MAPs 65-75. Acute blood loss anemia 05/29/2015 09/02/20 15 Overview: H/H remains low but stable. 07/10: H/H 6.6/--transfused 1 unit 07/11: Transfused for 6.8.3 A/P: Monitor H/H, transfuse prn. Acute postoperative pain 05/29/2015 015 Overview: Post op lung Tx A/P: Dilaudid and acetaminophen prn for pain Immunosuppressed status 05/29/2015 09/02/20 15 Overview: S/p b/l lung transplant on 05/29/2015 -immunosuppression and antiimicrobial prophylaxis as per Transplant Pulmonology. -Cont Tac/MMF/Pred. 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 BP has been on the lower side. Oxygen requirement increased to 3L from 2 L Plan: - Will get repeat Echo with bubble study (last one from January 2015). - Place a PA cath and continue to diurese while monitoring her right heart pressures. - Will need IV lasix-received 80 IV lasix on 04/20 and 100 IV lasix on 04/21 - Continue spironolactone. JAMES (acute kidney injury) 04/21/20152014 Overview: Baseline Cr 0.9 (04/09) -> Cr up to 2.4. A/P: JAMES is likely 2/2 ATN given hypotension and hemorrhage. Balance volume repletion with diuresis --> Cr continues to downtrend 1.92 -->1.37 today. Nephrology following - Maintain MAP 65 or greater, avoid nephrotoxic agents. Continue Lasix drip Hyponatremia with excess extracellular fluid vol ume 04/21/2015 06/02/2015 Overview: Likely hypervolemic hyponatremia. Na improved form 126 to 130 this am. Patient is already on torsemide, spironolactone and metolazone at home. Plan: - Continue to diurese as kidney function allows. 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 - O2 requirements as needed (uses 2L NC at home at night). - Continue home O2 - Patient was seen by lung transplant team. Tests required include: Quantitative perfusion scan (done) Gastric emptying study, esophageal manometry and 24hr pH study (ordered) Dental consultation (will need to call ) Social Work (on board) Iron deficiency anemia 01/25/2013 7 Overview: Menstruating female with iron deficiency Cardiomegaly 01/25/2013 09/02/2015 Overview: -- RV enlargement due to PH Exertional dyspnea 01/25/2013 09/02/2015 Mediastinal adenopathy 01/25/2013 5 Hilar adenopathy 01/25/2013 08/21/2015 Overview: Noted on imaging- mother with a history of Sarcoid Could be 2/2 to chronic VTE and pHTN Lung nodules 01/25/2013 09/02/2015 Overview: Noted on imaging Follow Anticoagulation management encounter 01/25/2013 01/26/2013 SUMMARY 01/24/2013 02/02/2013 Overview: This is a 17 year old female with no significant PMH other than migraine and minimal allergies who developed significant SOB within the past 2 months, this progressed to the point where she was unable to walk up 2 flights of stairs and had mild chest pressure with activty. This worsened on a recent trip to [place] where she was on a 6 hour plane ride leading to a near syncopal episode. She presented ot her PCP for fatigue and was found to have anemia, elevated WBC count and on echo a elevated RVSP and dilated RV. She was sent for CT at her local Ed where she was found to have 2 small PE's. Patient sent for further evaluation. At admission upon review of her Ct there is no PE noted, she does however have significant cardiomegaly, increase RVSP and right atrial dilatation, will need to work up cause of PAH PAH (pulmonary artery hypertension) 01/24/2013 08/21/2015 Overview: Found to have elevated RVSP on echo with RV dilatation. ? Sarcoid as she has a family hx as well as polyarthralgia and fatigue - now with hilar lymphadenopathy RHC revealing PA HTN. 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 as angio was suggestive of multiple PEs small and chronic Plan: Further Remodulin titration as an out-patient q weekly, now on 7.5 ng/kg/min PET scan for VALERIA in the chest complete 02/07 Night sweats 01/24/2013 08/21/2015 Overview: Unclear etiology- Awaiting further PAH workup and Rheum w/u is neg so far documented as of this encounter (statuses as of 02/18/2022) [facility]04-14-2016 History of Past illness Narrative* Problem Noted Date Resolved Date Abnormality of gait 12/24/2015 04/11/2017 Ascites 07/13/2015 08/21/2015 Overview: Abdominal distension 07/09 KUB: air in stomach, repeat on 07/11: no dilated loops of bowel 07/11: US abdomen + ascites 07/13 Paracentesis ~ 2L straw colored fluid A/P: Abdomen soft, distended. No c/o abd. fullness. Monitor. Seizure 06/22/2015 08/21/2015 Overview: 06/22/2015 0230 Sudden new onset seizures - with generalized rhythmic contractions of all extremities plus facial twitching. Treated lorazepam and midazolam. Stat head CT negative for bleed. No acute metabolic changes on ABG. Concern for withdrawal from opioids - had been on high dose fentanyl infusion for 3 weeks -infusion d'tabitha on 06/18/15. Neuro consulted and continuous EEG monitoring ordered. Cont vEEG showing mild diffuse encephalopathy but no epileptiform form activity. A/P:: No seizure activity since 06/22. Keppra discontinued per ALD. Abdominal distension 06/15/2015 06/16/2015 Overview: TF held. KUB pending. Fever 06/08/2015 08/21/2015 Overview: S/p CT chest/abd 06/18, which showed RLL collapse, with findings suggestive of necrotic PNA, and scattered upper lobe opacities; moderate ascites, cholelithiasis and gallbladder sludging without cholecystitis. Remains afebrile. No leukocytosis. - Urine cx (06/07), neg; Bld cx (10/1) x2 - NGTD - One blood culture (06/06) grew lactobacillus - Bld/UA cx drawn (06/16) - neg - BAL cx (06/20): smear shows GPC in clusters - Bld cx (06/21) NGTD Plan: - Meropenem stopped on 06/22 - Cont PO Vancomycin through hospitalization - F/u BAL cx (06/20) - Smear currently shows GPC in clusters but no organisms on culture; in the setting of resurgence of fevers, restarted on IV Vanc on 06/18->. Continue Vancomycin oral Mild protein-calorie malnutrition 06/04/2015 04/11/2017 Overview: Nutrition following. Ice chips only per beside swallow evaluation. Advanced to popcicle and applesauce 07/19 A/P: Tolerating TF via corpak at goal. Continue TF at current rate, monitor labs. Speech evaluation today Ischemia of hand 06/01/2015 06/05/2015 Overview: Radial a line removed- good doppler signals Dexter ndiaye placed Heparin infusion for goal pTT 45-55. Ischemia of lower extremity 06/01/201505/13 Overview: Left lower extremity ischemia, has regained DP/PT doppler signals, but calf muscles remains somewhat tense. A/P: CKs normalizing, will stop following CK levels at this time. Vascular surgery signing off, appreciate assistance. 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 Radial art line was in LUE. Art line removed and arterial duplex showed radial artery thrombosis with patent ulnar artery. Pt now with strong pulse in L radial artery. Thrombocytopenia 06/01/2015 06/08/2015 Overview: Required massive transfusion after OR, placed on VA ECMO. Likely consumptive coagulopathy, however PF4 antibody sent given recent initiation of heparin IV. A/P: -Appears to be resolving, platelets 98,000 today. Cardiac insufficiency following cardiac surgery 05/30/2015 06/15/2015 Overview: Severe RV, arrived from OR on iflolan and Epi. iFlolan weaned off A/P: Off epi and iFlolan. Open chest wound 05/30/2015 06/11/2015 Overview: S/p Lung Tx A/P: Dressing intact, continue ATBX while chest is open. Possible closure today Volume overload 05/30/2015 09/02/2015 Overview: + fluid balance due to multiple transfusions and volume replacement for shock in the early post op period. A/P: - 1.9 L/24hr. Continue diuresis, monitor UOP and labs. Personal history of ECMO 05/30/2015 015 Overview: VV ECMO on 05/30, Transitioned to VA ECMO 05/31. VA ECMO weaned 06/03, back on VV ECMO Decannulated on 06/15. Stress hyperglycemia 05/30/2015 06/11/2015 Overview: S/P Lung Tx A/P: Stress hyperglycemia exacerbated by surgery and pressors. RHI infusion for glycemic control. Shock liver - hepatic insufficiency 05/30/2015 06/05/2015 Overview: Markedly elevated LFTs, persistent coagulopathy and bleeding despite near- continuous trasnfusion of blood products. Also recurrent hypoglycemia requiring D50 boluses and D10W infusion. A/P: LFTs downtrending. 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 Progressively hypoxemic after arrival to ICU despite maximal MV support with lung protective ventilation and inhaled epoprostenol. NMB, inverted I:E ratio, high PEEP, low Vt with permissive hypercapnia only helped transiently. VV ECMO placed. Optimize vent settings, BPH, pain control, VV ECMO. Worsening lung compliance d/t hypervolemia (pulm edema) and/ or PGD. Continues on iFlolan. Switched to VA ECMO but maintaining very low Vt plus high PEEP. 06/03 Washout with VA ECMO weaned. VV ECMO initiated. S/p ECMO decannulation 06/15. S/p trach 06/19. Tolerated ~>11hrs on 07/06, but CXR with increased atelectasis following. A/P: CXR with bilateral opacities. Tolerating TC ATC. Continue TC, BPH, pain control, OOB. Consumption coagulopathy 05/29/2015 015 Overview: S/P Lung Transplant. Severe coagulopathic bleeding intraop and immediately postop. Received multiple blood products - plts, cryoppt, FFP and prbcs. Also rewarming for postop hypothermia. A/P: 4u pRBC and 2u platelets distribution coordinator to OR. PF4 antibody negative Chest remains open. Hypotension 05/29/2015 06/15/2015 Overview: Post Lung Tx. Severely vasoplegic intraop and immediately postop requiring multiple inopressors. Received methylene blue bolus intraop. Arrived ICU on epi, norepi, vasopressin and phenylephrine was added in ICU to maintain MAP >60mmHg. Wean for MAP 65 or greater. A/P: Off epi. Maintain MAPs 65-75. Acute blood loss anemia 05/29/2015 09/02/20 15 Overview: H/H remains low but stable. 07/10: H/H 6.6/21--transfused 1 unit 07/11: Transfused for 6.8/21.3 A/P: Monitor H/H, transfuse prn. Acute postoperative pain 05/29/2015 015 Overview: Post op lung Tx A/P: Dilaudid and acetaminophen prn for pain Immunosuppressed status 05/29/2015 09/02/20 15 Overview: S/p b/l lung transplant on 05/29/2015 -immunosuppression and antiimicrobial prophylaxis as per Transplant Pulmonology. -Cont Tac/MMF/Pred. 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 BP has been on the lower side. Oxygen requirement increased to 3L from 2 L Plan: - Will get repeat Echo with bubble study (last one from January 2015). - Place a PA cath and continue to diurese while monitoring her right heart pressures. - Will need IV lasix-received 80 IV lasix on 04/20 and 100 IV lasix on 04/21 - Continue spironolactone. JAMES (acute kidney injury) 04/21/20152014 Overview: Baseline Cr 0.9 (04/09) -> Cr up to 2.4. A/P: JAMES is likely 2/2 ATN given hypotension and hemorrhage. Balance volume repletion with diuresis --> Cr continues to downtrend 1.92 -->1.37 today. Nephrology following - Maintain MAP 65 or greater, avoid nephrotoxic agents. Continue Lasix drip Hyponatremia with excess extracellular fluid vol ume 04/21/2015 06/02/2015 Overview: Likely hypervolemic hyponatremia. Na improved form 126 to 130 this am. Patient is already on torsemide, spironolactone and metolazone at home. Plan: - Continue to diurese as kidney function allows. 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 - O2 requirements as needed (uses 2L NC at home at night). - Continue home O2 - Patient was seen by lung transplant team. Tests required include: Quantitative perfusion scan (done) Gastric emptying study, esophageal manometry and 24hr pH study (ordered) Dental consultation (will need to call ) Social Work (on board) Iron deficiency anemia 01/25/2013 7 Overview: Menstruating female with iron deficiency Cardiomegaly 01/25/2013 09/02/2015 Overview: -- RV enlargement due to PH Exertional dyspnea 01/25/2013 09/02/2015 Mediastinal adenopathy 01/25/2013 5 Hilar adenopathy 01/25/2013 08/21/2015 Overview: Noted on imaging- mother with a history of Sarcoid Could be 2/2 to chronic VTE and pHTN Lung nodules 01/25/2013 09/02/2015 Overview: Noted on imaging Follow Anticoagulation management encounter 01/25/2013 01/26/2013 SUMMARY 01/24/2013 02/02/2013 Overview: This is a 17 year old female with no significant PMH other than migraine and minimal allergies who developed significant SOB within the past 2 months, this progressed to the point where she was unable to walk up 2 flights of stairs and had mild chest pressure with activty. This worsened on a recent trip to [place] where she was on a 6 [address] plane ride leading to a near syncopal episode. She presented ot her PCP for fatigue and was found to have anemia, elevated WBC count and on echo a elevated RVSP and dilated RV. She was sent for CT at her local Ed where she was found to have 2 small PE's. Patient sent for further evaluation. At admission upon review of her Ct there is no PE noted, she does however have significant cardiomegaly, increase RVSP and right atrial dilatation, will need to work up cause of PAH PAH (pulmonary artery hypertension) 01/24/2013 08/21/2015 Overview: Found to have elevated RVSP on echo with RV dilatation. ? Sarcoid as she has a family hx as well as polyarthralgia and fatigue - now with hilar lymphadenopathy RHC revealing PA HTN. 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 as angio was suggestive of multiple PEs small and chronic Plan: Further Remodulin titration as an out-patient q weekly, now on 7.5 ng/kg/min PET scan for VALERIA in the chest complete 02/07 Night sweats 01/24/2013 08/21/2015 Overview: Unclear etiology- Awaiting further PAH workup and Rheum w/u is neg so far documented as of this encounter (statuses as of 02/24/2022) [facility] History of Past illness Narrative* Problem Noted Date Resolved Date Abnormality of gait 12/24/2015 04/11/2017 Ascites 07/13/2015 08/21/2015 Overview: Abdominal distension 07/09 KUB: air in stomach, repeat on 07/11: no dilated loops of bowel 07/11: US abdomen + ascites 07/13 Paracentesis ~ 2L straw colored fluid A/P: Abdomen soft, distended. No c/o abd. fullness. Monitor. Seizure 06/22/2015 08/21/2015 Overview: 06/22/2015 0230 Sudden new onset seizures - with generalized rhythmic contractions of all extremities plus facial twitching. Treated lorazepam and midazolam. Stat head CT negative for bleed. No acute metabolic changes on ABG. Concern for withdrawal from opioids - had been on high dose fentanyl infusion for 3 weeks -infusion d'tabitha on 06/18/15. Neuro consulted and continuous EEG monitoring ordered. Cont vEEG showing mild diffuse encephalopathy but no epileptiform form activity. A/P:: No seizure activity since 06/22. Keppra discontinued per ALD. Abdominal distension 06/15/2015 06/16/2015 Overview: TF held. KUB pending. Fever 06/08/2015 08/21/2015 Overview: S/p CT chest/abd 06/18, which showed RLL collapse, with findings suggestive of necrotic PNA, and scattered upper lobe opacities; moderate ascites, cholelithiasis and gallbladder sludging without cholecystitis. Remains afebrile. No leukocytosis. - Urine cx (06/07), neg; Bld cx (06/11) x2 - NGTD - One blood culture (06/06) grew lactobacillus - Bld/UA cx drawn (06/16) - neg - BAL cx (06/20): smear shows GPC in clusters - Bld cx (06/21) NGTD Plan: - Meropenem stopped on 06/22 - Cont PO Vancomycin through hospitalization - F/u BAL cx (06/20) - Smear currently shows GPC in clusters but no organisms on culture; in the setting of resurgence of fevers, restarted on IV Vanc on 06/18->. Continue Vancomycin oral Mild protein-calorie malnutrition 06/04/2015 04/11/2017 Overview: Nutrition following. Ice chips only per beside swallow evaluation. Advanced to popcicle and applesauce 07/19 A/P: Tolerating TF via corpak at goal. Continue TF at current rate, monitor labs. Speech evaluation today Ischemia of hand 06/01/2015 06/05/2015 Overview: Radial a line removed- good doppler signals Dexter ndiaye placed Heparin infusion for goal pTT 45-55. Ischemia of lower extremity 06/01/201505/13 Overview: Left lower extremity ischemia, has regained DP/PT doppler signals, but calf muscles remains somewhat tense. A/P: CKs normalizing, will stop following CK levels at this time. Vascular surgery signing off, appreciate assistance. 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 Radial art line was in LUE. Art line removed and arterial duplex showed radial artery thrombosis with patent ulnar artery. Pt now with strong pulse in L radial artery. Thrombocytopenia 06/01/2015 06/08/2015 Overview: Required massive transfusion after OR, placed on VA ECMO. Likely consumptive coagulopathy, however PF4 antibody sent given recent initiation of heparin IV. A/P: -Appears to be resolving, platelets 98,000 today. Cardiac insufficiency following cardiac surgery 05/30/2015 06/15/2015 Overview: Severe RV, arrived from OR on iflolan and Epi. iFlolan weaned off A/P: Off epi and iFlolan. Open chest wound 05/30/2015 06/11/2015 Overview: S/p Lung Tx A/P: Dressing intact, continue ATBX while chest is open. Possible closure today Volume overload 05/30/2015 09/02/2015 Overview: + fluid balance due to multiple transfusions and volume replacement for shock in the early post op period. A/P: - 1.9 L/24hr. Continue diuresis, monitor UOP and labs. Personal history of ECMO 05/30/2015 015 Overview: VV ECMO on 05/30, Transitioned to [facility] ECMO 05/31. VA ECMO weaned 06/03, back on VV ECMO Decannulated on 06/15. Stress hyperglycemia 05/30/2015 06/11/2015 Overview: S/P Lung Tx A/P: Stress hyperglycemia exacerbated by surgery and pressors. RHI infusion for glycemic control. Shock liver - hepatic insufficiency 05/30/2015 06/05/2015 Overview: Markedly elevated LFTs, persistent coagulopathy and bleeding despite near- continuous trasnfusion of blood products. Also recurrent hypoglycemia requiring D50 boluses and D10W infusion. A/P: LFTs downtrending. 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 Progressively hypoxemic after arrival to ICU despite maximal MV support with lung protective ventilation and inhaled epoprostenol. NMB, inverted I:E ratio, high PEEP, low Vt with permissive hypercapnia only helped transiently. VV ECMO placed. Optimize vent settings, BPH, pain control, VV ECMO. Worsening lung compliance d/t hypervolemia (pulm edema) and/ or PGD. Continues on iFlolan. Switched to VA ECMO but maintaining very low Vt plus high PEEP. 06/03 Washout with VA ECMO weaned. VV ECMO initiated. S/p ECMO decannulation 06/15. S/p trach 06/19. Tolerated ~>11hrs on 07/06, but CXR with increased atelectasis following. A/P: CXR with bilateral opacities. Tolerating TC ATC. Continue TC, BPH, pain control, OOB. Consumption coagulopathy 05/29/2015 015 Overview: S/P Lung Transplant. Severe coagulopathic bleeding intraop and immediately postop. Received multiple blood products - plts, cryoppt, FFP and prbcs. Also rewarming for postop hypothermia. A/P: 4u pRBC and 2u platelets distribution coordinator to OR. PF4 antibody negative Chest remains open. Hypotension 05/29/2015 06/15/2015 Overview: Post Lung Tx. Severely vasoplegic intraop and immediately postop requiring multiple inopressors. Received methylene blue bolus intraop. Arrived ICU on epi, norepi, vasopressin and phenylephrine was added in ICU to maintain MAP >60mmHg. Wean for MAP 65 or greater. A/P: Off epi. Maintain MAPs 65-75. Acute blood loss anemia 05/29/2015 09/02/20 15 Overview: H/H remains low but stable. 07/10: H/H 6.6/21--transfused 1 unit 07/11: Transfused for 6.8/.3 A/P: Monitor H/H, transfuse prn. Acute postoperative pain 05/29/2015 015 Overview: Post op lung Tx A/P: Dilaudid and acetaminophen prn for pain Immunosuppressed status 05/29/2015 09/02/20 15 Overview: S/p b/l lung transplant on 05/29/2015 -immunosuppression and antiimicrobial prophylaxis as per Transplant Pulmonology. -Cont Tac/MMF/Pred. 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 BP has been on the lower side. Oxygen requirement increased to 3L from 2 L Plan: - Will get repeat Echo with bubble study (last one from January 2015). - Place a PA cath and continue to diurese while monitoring her right heart pressures. - Will need IV lasix-received 80 IV lasix on 04/20 and 100 IV lasix on 04/21 - Continue spironolactone. JAMES (acute kidney injury) 04/21/20152014 Overview: Baseline Cr 0.9 (04/09) -> Cr up to 2.4. A/P: JAMES is likely 2/2 ATN given hypotension and hemorrhage. Balance volume repletion with diuresis --> Cr continues to downtrend 1.92 -->1.37 today. Nephrology following - Maintain MAP 65 or greater, avoid nephrotoxic agents. Continue Lasix drip Hyponatremia with excess extracellular fluid vol ume 04/21/2015 06/02/2015 Overview: Likely hypervolemic hyponatremia. Na improved form 126 to 130 this am. Patient is already on torsemide, spironolactone and metolazone at home. Plan: - Continue to diurese as kidney function allows. 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 - O2 requirements as needed (uses 2L NC at home at night). - Continue home O2 - Patient was seen by lung transplant team. Tests required include: Quantitative perfusion scan (done) Gastric emptying study, esophageal manometry and 24hr pH study (ordered) Dental consultation (will need to call ) Social Work (on board) Iron deficiency anemia 01/25/2013 7 Overview: Menstruating female with iron deficiency Cardiomegaly 01/25/2013 09/02/2015 Overview: -- RV enlargement due to PH Exertional dyspnea 01/25/2013 09/02/2015 Mediastinal adenopathy 01/25/2013 5 Hilar adenopathy 01/25/2013 08/21/2015 Overview: Noted on imaging- mother with a history of Sarcoid Could be 2/2 to chronic VTE and pHTN Lung nodules 01/25/2013 09/02/2015 Overview: Noted on imaging Follow Anticoagulation management encounter 01/25/2013 01/26/2013 SUMMARY 01/24/2013 02/02/2013 Overview: This is a 17 year old female with no significant PMH other than migraine and minimal allergies who developed significant SOB within the past 2 months, this progressed to the point where she was unable to walk up 2 flights of stairs and had mild chest pressure with activty. This worsened on a recent trip to [place] where she was on a 6 hour plane ride leading to a near syncopal episode. She presented ot her PCP for fatigue and was found to have anemia, elevated WBC count and on echo a elevated RVSP and dilated RV. She was sent for CT at her local Ed where she was found to have 2 small PE's. Patient sent for further evaluation. At admission upon review of her Ct there is no PE noted, she does however have significant cardiomegaly, increase RVSP and right atrial dilatation, will need to work up cause of PAH PAH (pulmonary artery hypertension) 01/24/2013 08/21/2015 Overview: Found to have elevated RVSP on echo with RV dilatation. ? Sarcoid as she has a family hx as well as polyarthralgia and fatigue - now with hilar lymphadenopathy RHC revealing PA HTN. 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 as angio was suggestive of multiple PEs small and chronic Plan: Further Remodulin titration as an out-patient q weekly, now on 7.5 ng/kg/min PET scan for VALERIA in the chest complete 02/07 Night sweats 01/24/2013 08/21/2015 Overview: Unclear etiology- Awaiting further PAH workup and Rheum w/u is neg so far documented as of this encounter (statuses as of 03/10/2022) [facility] History of Past illness Narrative* Problem Noted Date Resolved Date Abnormality of gait 12/24/2015 04/11/2017 Ascites 07/13/2015 08/21/2015 Overview: Abdominal distension 07/09 KUB: air in stomach, repeat on 07/11: no dilated loops of bowel 07/11: US abdomen + ascites 07/13 Paracentesis ~ 2L straw colored fluid A/P: Abdomen soft, distended. No c/o abd. fullness. Monitor. Seizure 06/22/2015 08/21/2015 Overview: 06/22/2015 0230 Sudden new onset seizures - with generalized rhythmic contractions of all extremities plus facial twitching. Treated lorazepam and midazolam. Stat head CT negative for bleed. No acute metabolic changes on ABG. Concern for withdrawal from opioids - had been on high dose fentanyl infusion for 3 weeks -infusion d'tabitha on 06/18/15. Neuro consulted and continuous EEG monitoring ordered. Cont vEEG showing mild diffuse encephalopathy but no epileptiform form activity. A/P:: No seizure activity since 06/22. Keppra discontinued per ALD. Abdominal distension 06/15/2015 06/16/2015 Overview: TF held. KUB pending. Fever 06/08/2015 08/21/2015 Overview: S/p CT chest/abd 06/18, which showed RLL collapse, with findings suggestive of necrotic PNA, and scattered upper lobe opacities; moderate ascites, cholelithiasis and gallbladder sludging without cholecystitis. Remains afebrile. No leukocytosis. - Urine cx (06/07), neg; Bld cx (06/11) x2 - NGTD - One blood culture (06/06) grew lactobacillus - Bld/UA cx drawn (06/16) - neg - BAL cx (06/20): smear shows GPC in clusters - Bld cx (06/21) NGTD Plan: - Meropenem stopped on 06/22 - Cont PO Vancomycin through hospitalization - F/u BAL cx (06/20) - Smear currently shows GPC in clusters but no organisms on culture; in the setting of resurgence of fevers, restarted on IV Vanc on 06/18->. Continue Vancomycin oral Mild protein-calorie malnutrition 06/04/2015 04/11/2017 Overview: Nutrition following. Ice chips only per beside swallow evaluation. Advanced to popcicle and applesauce 07/19 A/P: Tolerating TF via corpak at goal. Continue TF at current rate, monitor labs. Speech evaluation today Ischemia of hand 06/01/2015 06/05/2015 Overview: Radial a line removed- good doppler signals Rooke mittens placed Heparin infusion for goal pTT 45-55. Ischemia of lower extremity 06/01/201505/13 Overview: Left lower extremity ischemia, has regained DP/PT doppler signals, but calf muscles remains somewhat tense. A/P: CKs normalizing, will stop following CK levels at this time. Vascular surgery signing off, appreciate assistance. Radial artery thrombosis 06/01/201506/08/ 015 Overview: Pt noted to have dusky fingers on LUE. Radial art line was in LUE. Art line removed and arterial duplex showed radial artery thrombosis with patent ulnar artery. Pt now with strong pulse in L radial artery. Thrombocytopenia 06/01/2015 06/08/2015 Overview: Required massive transfusion after OR, placed on VA ECMO. Likely consumptive coagulopathy, however PF4 antibody sent given recent initiation of heparin IV. A/P: -Appears to be resolving, platelets 98,000 today. Cardiac insufficiency following cardiac surgery 05/30/2015 06/15/2015 Overview: Severe RV, arrived from OR on iflolan and Epi. iFlolan weaned off A/P: Off epi and iFlolan. Open chest wound 05/30/2015 06/11/2015 Overview: S/p Lung Tx A/P: Dressing intact, continue ATBX while chest is open. Possible closure today Volume overload 05/30/2015 09/02/2015 Overview: + fluid balance due to multiple transfusions and volume replacement for shock in the early post op period. A/P: - 1.9 L/24hr. Continue diuresis, monitor UOP and labs. Personal history of ECMO 05/30/2015 015 Overview: VV ECMO on 05/30, Transitioned to VA ECMO 05/31. VA ECMO weaned 06/03, back on VV ECMO Decannulated on 06/15. Stress hyperglycemia 05/30/2015 06/11/2015 Overview: S/P Lung Tx A/P: Stress hyperglycemia exacerbated by surgery and pressors. RHI infusion for glycemic control. Shock liver - hepatic insufficiency 05/30/2015 06/05/2015 Overview: Markedly elevated LFTs, persistent coagulopathy and bleeding despite near- continuous trasnfusion of blood products. Also recurrent hypoglycemia requiring D50 boluses and D10W infusion. A/P: LFTs downtrending. 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 Progressively hypoxemic after arrival to ICU despite maximal MV support with lung protective ventilation and inhaled epoprostenol. NMB, inverted I:E ratio, high PEEP, low Vt with permissive hypercapnia only helped transiently. VV ECMO placed. Optimize vent settings, BPH, pain control, VV ECMO. Worsening lung compliance d/t hypervolemia (pulm edema) and/ or PGD. Continues on iFlolan. Switched to VA ECMO but maintaining very low Vt plus high PEEP. 06/03 Washout with VA ECMO weaned. VV ECMO initiated. S/p ECMO decannulation 06/15. S/p trach 06/19. Tolerated ~>11hrs on 07/06, but CXR with increased atelectasis following. A/P: CXR with bilateral opacities. Tolerating TC ATC. Continue TC, BPH, pain control, OOB. Consumption coagulopathy 05/29/2015 015 Overview: S/P Lung Transplant. Severe coagulopathic bleeding intraop and immediately postop. Received multiple blood products - plts, cryoppt, FFP and prbcs. Also rewarming for postop hypothermia. A/P: 4u pRBC and 2u platelets distribution coordinator to OR. PF4 antibody negative Chest remains open. Hypotension 05/29/2015 06/15/2015 Overview: Post Lung Tx. Severely vasoplegic intraop and immediately postop requiring multiple inopressors. Received methylene blue bolus intraop. Arrived ICU on epi, norepi, vasopressin and phenylephrine was added in ICU to maintain MAP >60mmHg. Wean for MAP 65 or greater. A/P: Off epi. Maintain MAPs 65-75. Acute blood loss anemia 05/29/2015 09/02/20 15 Overview: H/H remains low but stable. 07/10: H/H 6.6/21--transfused 1 unit 07/11: Transfused for 6.8/21.3 A/P: Monitor H/H, transfuse prn. Acute postoperative pain 05/29/2015 015 Overview: Post op lung Tx A/P: Dilaudid and acetaminophen prn for pain Immunosuppressed status 05/29/2015 09/02/20 Overview: S/p b/l lung transplant on 05/29/2015 -immunosuppression and antiimicrobial prophylaxis as per Transplant Pulmonology. -Cont Tac/MMF/Pred. 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 BP has been on the lower side. Oxygen requirement increased to 3L from 2 L Plan: - Will get repeat Echo with bubble study (last one from January 2015). - Place a PA cath and continue to diurese while monitoring her right heart pressures. - Will need IV lasix-received 80 IV lasix on 04/20 and 100 IV lasix on 04/21 - Continue spironolactone. JAMES (acute kidney injury) 04/21/20152014 Overview: Baseline Cr 0.9 (04/09) -> Cr up to 2.4. A/P: JAMES is likely 2/2 ATN given hypotension and hemorrhage. Balance volume repletion with diuresis --> Cr continues to downtrend 1.92 -->1.37 today. Nephrology following - Maintain MAP 65 or greater, avoid nephrotoxic agents. Continue Lasix drip Hyponatremia with excess extracellular fluid vol ume 04/21/2015 06/02/2015 Overview: Likely hypervolemic hyponatremia. Na improved form 126 to 130 this am. Patient is already on torsemide, spironolactone and metolazone at home. Plan: - Continue to diurese as kidney function allows. 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 - O2 requirements as needed (uses 2L NC at home at night). - Continue home O2 - Patient was seen by lung transplant team. Tests required include: Quantitative perfusion scan (done) Gastric emptying study, esophageal manometry and 24hr pH study (ordered) Dental consultation (will need to call ) Social Work (on board) Iron deficiency anemia 01/25/2013 7 Overview: Menstruating female with iron deficiency Cardiomegaly 01/25/2013 09/02/2015 Overview: -- RV enlargement due to PH Exertional dyspnea 01/25/2013 09/02/2015 Mediastinal adenopathy 01/25/2013 5 Hilar adenopathy 01/25/2013 08/21/2015 Overview: Noted on imaging- mother with a history of Sarcoid Could be 2/2 to chronic VTE and pHTN Lung nodules 01/25/2013 09/02/2015 Overview: Noted on imaging Follow Anticoagulation management encounter 01/25/2013 01/26/2013 SUMMARY 01/24/2013 02/02/2013 Overview: This is a 17 year old female with no significant PMH other than migraine and minimal allergies who developed significant SOB within the past 2 months, this progressed to the point where she was unable to walk up 2 flights of stairs and had mild chest pressure with activty. This worsened on a recent trip to [place] where she was on a 6 hour plane ride leading to a near syncopal episode. She presented ot her PCP for fatigue and was found to have anemia, elevated WBC count and on echo a elevated RVSP and dilated RV. She was sent for CT at her local Ed where she was found to have 2 small PE's. Patient sent for further evaluation. At admission upon review of her Ct there is no PE noted, she does however have significant cardiomegaly, increase RVSP and right atrial dilatation, will need to work up cause of PAH PAH (pulmonary artery hypertension) 01/24/2013 08/21/2015 Overview: Found to have elevated RVSP on echo with RV dilatation. ? Sarcoid as she has a family hx as well as polyarthralgia and fatigue - now with hilar lymphadenopathy RHC revealing PA HTN. 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 as angio was suggestive of multiple PEs small and chronic Plan: Further Remodulin titration as an out-patient q weekly, now on 7.5 ng/kg/min PET scan for VALERIA in the chest complete 02/07 Night sweats 01/24/2013 08/21/2015 Overview: Unclear etiology- Awaiting further PAH workup and Rheum w/u is neg so far documented as of this encounter (statuses as of 03/16/2022) [facility] History of Past illness Narrative* Problem Noted Date Resolved Date Abnormality of gait 12/24/2015 04/11/2017 Ascites 07/13/2015 08/21/2015 Overview: Abdominal distension 07/09 KUB: air in stomach, repeat on 07/11: no dilated loops of bowel 07/11: US abdomen + ascites 07/13 Paracentesis ~ 2L straw colored fluid A/P: Abdomen soft, distended. No c/o abd. fullness. Monitor. Seizure 06/22/2015 08/21/2015 Overview: 06/22/2015 0230 Sudden new onset seizures - with generalized rhythmic contractions of all extremities plus facial twitching. Treated lorazepam and midazolam. Stat head CT negative for bleed. No acute metabolic changes on ABG. Concern for withdrawal from opioids - had been on high dose fentanyl infusion for 3 weeks -infusion d'tabitha on 06/18/15. Neuro consulted and continuous EEG monitoring ordered. Cont vEEG showing mild diffuse encephalopathy but no epileptiform form activity. A/P:: No seizure activity since 06/22. Keppra discontinued per ALD. Abdominal distension 06/15/2015 06/16/2015 Overview: TF held. KUB pending. Fever 06/08/2015 08/21/2015 Overview: S/p CT chest/abd 06/18, which showed RLL collapse, with findings suggestive of necrotic PNA, and scattered upper lobe opacities; moderate ascites, cholelithiasis and gallbladder sludging without cholecystitis. Remains afebrile. No leukocytosis. - Urine cx (06/07), neg; Bld cx (06/11) x2 - NGTD - One blood culture (06/06) grew lactobacillus - Bld/UA cx drawn (06/16) - neg - BAL cx (06/20): smear shows GPC in clusters - Bld cx (06/21) NGTD Plan: - Meropenem stopped on 06/22 - Cont PO Vancomycin through hospitalization - F/u BAL cx (06/20) - Smear currently shows GPC in clusters but no organisms on culture; in the setting of resurgence of fevers, restarted on IV Vanc on 06/18->. Continue Vancomycin oral Mild protein-calorie malnutrition 06/04/2015 04/11/2017 Overview: Nutrition following. Ice chips only per beside swallow evaluation. Advanced to popcicle and applesauce 07/19 A/P: Tolerating TF via corpak at goal. Continue TF at current rate, monitor labs. Speech evaluation today Ischemia of hand 06/01/2015 06/05/2015 Overview: Radial a line removed- good doppler signals Dexter ndiaye placed Heparin infusion for goal pTT 45-55. Ischemia of lower extremity 06/01/201505/13 Overview: Left lower extremity ischemia, has regained DP/PT doppler signals, but calf muscles remains somewhat tense. A/P: CKs normalizing, will stop following CK levels at this time. Vascular surgery signing off, appreciate assistance. 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 Radial art line was in LUE. Art line removed and arterial duplex showed radial artery thrombosis with patent ulnar artery. Pt now with strong pulse in L radial artery. Thrombocytopenia 06/01/2015 06/08/2015 Overview: Required massive transfusion after OR, placed on VA ECMO. Likely consumptive coagulopathy, however PF4 antibody sent given recent initiation of heparin IV. A/P: -Appears to be resolving, platelets 98,000 today. Cardiac insufficiency following cardiac surgery 05/30/2015 06/15/2015 Overview: Severe RV, arrived from OR on iflolan and Epi. iFlolan weaned off A/P: Off epi and iFlolan. Open chest wound 05/30/2015 06/11/2015 Overview: S/p Lung Tx A/P: Dressing intact, continue ATBX while chest is open. Possible closure today Volume overload 05/30/2015 09/02/2015 Overview: + fluid balance due to multiple transfusions and volume replacement for shock in the early post op period. A/P: - 1.9 L/24hr. Continue diuresis, monitor UOP and labs. Personal history of ECMO 05/30/2015 015 Overview: VV ECMO on 05/30, Transitioned to VA ECMO 05/31. VA ECMO weaned 06/03, back on VV ECMO Decannulated on 06/15. Stress hyperglycemia 05/30/2015 06/11/2015 Overview: S/P Lung Tx A/P: Stress hyperglycemia exacerbated by surgery and pressors. RHI infusion for glycemic control. Shock liver - hepatic insufficiency 05/30/2015 06/05/2015 Overview: Markedly elevated LFTs, persistent coagulopathy and bleeding despite near- continuous trasnfusion of blood products. Also recurrent hypoglycemia requiring D50 boluses and D10W infusion. A/P: LFTs downtrending. 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 Progressively hypoxemic after arrival to ICU despite maximal MV support with lung protective ventilation and inhaled epoprostenol. NMB, inverted I:E ratio, high PEEP, low Vt with permissive hypercapnia only helped transiently. VV ECMO placed. Optimize vent settings, BPH, pain control, VV ECMO. Worsening lung compliance d/t hypervolemia (pulm edema) and/ or PGD. Continues on iFlolan. Switched to VA ECMO but maintaining very low Vt plus high PEEP. 06/03 Washout with VA ECMO weaned. VV ECMO initiated. S/p ECMO decannulation 06/15. S/p trach 06/19. Tolerated ~>11hrs on 07/06, but CXR with increased atelectasis following. A/P: CXR with bilateral opacities. Tolerating TC ATC. Continue TC, BPH, pain control, OOB. Consumption coagulopathy 05/29/2015 015 Overview: S/P Lung Transplant. Severe coagulopathic bleeding intraop and immediately postop. Received multiple blood products - plts, cryoppt, FFP and prbcs. Also rewarming for postop hypothermia. A/P: 4u pRBC and 2u platelets distribution coordinator to OR. PF4 antibody negative Chest remains open. Hypotension 05/29/2015 06/15/2015 Overview: Post Lung Tx. Severely vasoplegic intraop and immediately postop requiring multiple inopressors. Received methylene blue bolus intraop. Arrived ICU on epi, norepi, vasopressin and phenylephrine was added in ICU to maintain MAP >60mmHg. Wean for MAP 65 or greater. A/P: Off epi. Maintain MAPs 65-75. Acute blood loss anemia 05/29/2015 09/02/20 15 Overview: H/H remains low but stable. 07/10: H/H 6.6/21--transfused 1 unit 07/11: Transfused for 6.8/21.3 A/P: Monitor H/H, transfuse prn. Acute postoperative pain 05/29/2015 015 Overview: Post op lung Tx A/P: Dilaudid and acetaminophen prn for pain Immunosuppressed status 05/29/2015 09/02/20 15 Overview: S/p b/l lung transplant on 05/29/2015 -immunosuppression and antiimicrobial prophylaxis as per Transplant Pulmonology. -Cont Tac/MMF/Pred. 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 BP has been on the lower side. Oxygen requirement increased to 3L from 2 L Plan: - Will get repeat Echo with bubble study (last one from January 2015). - Place a PA cath and continue to diurese while monitoring her right heart pressures. - Will need IV lasix-received 80 IV lasix on 04/20 and 100 IV lasix on 04/21 - Continue spironolactone. JAMES (acute kidney injury) 04/21/20152014 Overview: Baseline Cr 0.9 (04/09) -> Cr up to 2.4. A/P: JAMES is likely 2/2 ATN given hypotension and hemorrhage. Balance volume repletion with diuresis --> Cr continues to downtrend 1.92 -->1.37 today. Nephrology following - Maintain MAP 65 or greater, avoid nephrotoxic agents. Continue Lasix drip Hyponatremia with excess extracellular fluid vol ume 04/21/2015 06/02/2015 Overview: Likely hypervolemic hyponatremia. Na improved form 126 to 130 this am. Patient is already on torsemide, spironolactone and metolazone at home. Plan: - Continue to diurese as kidney function allows. 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 - O2 requirements as needed (uses 2L NC at home at night). - Continue home O2 - Patient was seen by lung transplant team. Tests required include: Quantitative perfusion scan (done) Gastric emptying study, esophageal manometry and 24hr pH study (ordered) Dental consultation (will need to call ) Social Work (on board) Iron deficiency anemia 01/25/2013 7 Overview: Menstruating female with iron deficiency Cardiomegaly 01/25/2013 09/02/2015 Overview: -- RV enlargement due to PH Exertional dyspnea 01/25/2013 09/02/2015 Mediastinal adenopathy 01/25/2013 5 Hilar adenopathy 01/25/2013 08/21/2015 Overview: Noted on imaging- mother with a history of Sarcoid Could be 2/2 to chronic VTE and pHTN Lung nodules 01/25/2013 09/02/2015 Overview: Noted on imaging Follow Anticoagulation management encounter 01/25/2013 01/26/2013 SUMMARY 01/24/2013 02/02/2013 Overview: This is a 17 year old female with no significant PMH other than migraine and minimal allergies who developed significant SOB within the past 2 months, this progressed to the point where she was unable to walk up 2 flights of stairs and had mild chest pressure with activty. This worsened on a recent trip to [place] where she was on a 6 hour plane ride leading to a near syncopal episode. She presented ot her PCP for fatigue and was found to have anemia, elevated WBC count and on echo a elevated RVSP and dilated RV. She was sent for CT at her local Ed where she was found to have 2 small PE's. Patient sent for further evaluation. At admission upon review of her Ct there is no PE noted, she does however have significant cardiomegaly, increase RVSP and right atrial dilatation, will need to work up cause of PAH PAH (pulmonary artery hypertension) 01/24/2013 08/21/2015 Overview: Found to have elevated RVSP on echo with RV dilatation. ? Sarcoid as she has a family hx as well as polyarthralgia and fatigue - now with hilar lymphadenopathy RHC revealing PA HTN. 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 as angio was suggestive of multiple PEs small and chronic Plan: Further Remodulin titration as an out-patient q weekly, now on 7.5 ng/kg/min PET scan for VALERIA in the chest complete 02/07 Night sweats 01/24/2013 08/21/2015 Overview: Unclear etiology- Awaiting further PAH workup and Rheum w/u is neg so far documented as of this encounter (statuses as of 03/16/2022) [facility] History of Past illness Narrative* Problem Noted Date Resolved Date Abnormality of gait 12/24/2015 04/11/2017 Ascites 07/13/2015 08/21/2015 Overview: Abdominal distension 07/09 KUB: air in stomach, repeat on 07/11: no dilated loops of bowel 07/11: US abdomen + ascites 07/13 Paracentesis ~ 2L straw colored fluid A/P: Abdomen soft, distended. No c/o abd. fullness. Monitor. Seizure 06/22/2015 08/21/2015 Overview: 06/22/2015 0230 Sudden new onset seizures - with generalized rhythmic contractions of all extremities plus facial twitching. Treated lorazepam and midazolam. Stat head CT negative for bleed. No acute metabolic changes on ABG. Concern for withdrawal from opioids - had been on high dose fentanyl infusion for 3 weeks -infusion d'tabitha on 06/18/15. Neuro consulted and continuous EEG monitoring ordered. Cont vEEG showing mild diffuse encephalopathy but no epileptiform form activity. A/P:: No seizure activity since 06/22. Keppra discontinued per ALD. Abdominal distension 06/15/2015 06/16/2015 Overview: TF held. KUB pending. Fever 06/08/2015 08/21/2015 Overview: S/p CT chest/abd 06/18, which showed RLL collapse, with findings suggestive of necrotic PNA, and scattered upper lobe opacities; moderate ascites, cholelithiasis and gallbladder sludging without cholecystitis. Remains afebrile. No leukocytosis. - Urine cx (06/07), neg; Bld cx (06/11) x2 - NGTD - One blood culture (06/06) grew lactobacillus - Bld/UA cx drawn (06/16) - neg - BAL cx (06/20): smear shows GPC in clusters - Bld cx (06/21) NGTD Plan: - Meropenem stopped on 06/22 - Cont PO Vancomycin through hospitalization - F/u BAL cx (06/20) - Smear currently shows GPC in clusters but no organisms on culture; in the setting of resurgence of fevers, restarted on IV Vanc on 06/18->. Continue Vancomycin oral Mild protein-calorie malnutrition 06/04/2015 04/11/2017 Overview: Nutrition following. Ice chips only per beside swallow evaluation. Advanced to popcicle and applesauce 07/19 A/P: Tolerating TF via corpak at goal. Continue TF at current rate, monitor labs. Speech evaluation today Ischemia of hand 06/01/2015 06/05/2015 Overview: Radial a line removed- good doppler signals Rooke mittens placed Heparin infusion for goal pTT 45-55. Ischemia of lower extremity 06/01/2015 09/04/2015 Overview: Left lower extremity ischemia, has regained DP/PT doppler signals, but calf muscles remains somewhat tense. A/P: CKs normalizing, will stop following CK levels at this time. Vascular surgery signing off, appreciate assistance. 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 Radial art line was in LUE. Art line removed and arterial duplex showed radial artery thrombosis with patent ulnar artery. Pt now with strong pulse in L radial artery. Thrombocytopenia 06/01/2015 06/08/2015 Overview: Required massive transfusion after OR, placed on VA ECMO. Likely consumptive coagulopathy, however PF4 antibody sent given recent initiation of heparin IV. A/P: -Appears to be resolving, platelets 98,000 today. Cardiac insufficiency following cardiac surgery 05/30/2015 06/15/2015 Overview: Severe RV, arrived from OR on iflolan and Epi. iFlolan weaned off A/P: Off epi and iFlolan. Open chest wound 05/30/2015 06/11/2015 Overview: S/p Lung Tx A/P: Dressing intact, continue ATBX while chest is open. Possible closure today Volume overload 05/30/2015 09/02/2015 Overview: + fluid balance due to multiple transfusions and volume replacement for shock in the early post op period. A/P: - 1.9 L/24hr. Continue diuresis, monitor UOP and labs. Personal history of ECMO 05/30/2015 015 Overview: VV ECMO on 05/30, Transitioned to VA ECMO 05/31. VA ECMO weaned 06/03, back on VV ECMO Decannulated on 06/15. Stress hyperglycemia 05/30/2015 06/11/2015 Overview: S/P Lung Tx A/P: Stress hyperglycemia exacerbated by surgery and pressors. RHI infusion for glycemic control. Shock liver - hepatic insufficiency 05/30/2015 06/05/2015 Overview: Markedly elevated LFTs, persistent coagulopathy and bleeding despite near- continuous trasnfusion of blood products. Also recurrent hypoglycemia requiring D50 boluses and D10W infusion. A/P: LFTs downtrending. 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 Progressively hypoxemic after arrival to ICU despite maximal MV support with lung protective ventilation and inhaled epoprostenol. NMB, inverted I:E ratio, high PEEP, low Vt with permissive hypercapnia only helped transiently. VV ECMO placed. Optimize vent settings, BPH, pain control, VV ECMO. Worsening lung compliance d/t hypervolemia (pulm edema) and/ or PGD. Continues on iFlolan. Switched to VA ECMO but maintaining very low Vt plus high PEEP. 06/03 Washout with VA ECMO weaned. VV ECMO initiated. S/p ECMO decannulation 06/15. S/p trach 06/19. Tolerated ~>11hrs on 07/06, but CXR with increased atelectasis following. A/P: CXR with bilateral opacities. Tolerating TC ATC. Continue TC, BPH, pain control, OOB. Consumption coagulopathy 05/29/2015 015 Overview: S/P Lung Transplant. Severe coagulopathic bleeding intraop and immediately postop. Received multiple blood products - plts, cryoppt, FFP and prbcs. Also rewarming for postop hypothermia. A/P: 4u pRBC and 2u platelets distribution coordinator to OR. PF4 antibody negative Chest remains open. Hypotension 05/29/2015 06/15/2015 Overview: Post Lung Tx. Severely vasoplegic intraop and immediately postop requiring multiple inopressors. Received methylene blue bolus intraop. Arrived ICU on epi, norepi, vasopressin and phenylephrine was added in ICU to maintain MAP >60mmHg. Wean for MAP 65 or greater. A/P: Off epi. Maintain MAPs 65-75. Acute blood loss anemia 05/29/2015 09/02/20 15 Overview: H/H remains low but stable. 07/10: H/H 6.6/21--transfused 1 unit 07/11: Transfused for 6.8.3 A/P: Monitor H/H, transfuse prn. Acute postoperative pain 05/29/2015 015 Overview: Post op lung Tx A/P: Dilaudid and acetaminophen prn for pain Immunosuppressed status 05/29/2015 09/02/20 15 Overview: S/p b/l lung transplant on 05/29/2015 -immunosuppression and antiimicrobial prophylaxis as per Transplant Pulmonology. -Cont Tac/MMF/Pred. 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 BP has been on the lower side. Oxygen requirement increased to 3L from 2 L Plan: - Will get repeat Echo with bubble study (last one from January 2015). - Place a PA cath and continue to diurese while monitoring her right heart pressures. - Will need IV lasix-received 80 IV lasix on 04/20 and 100 IV lasix on 04/21 - Continue spironolactone. JAMES (acute kidney injury) 04/21/20152014 Overview: Baseline Cr 0.9 (04/09) -> Cr up to 2.4. A/P: JAMES is likely 2/2 ATN given hypotension and hemorrhage. Balance volume repletion with diuresis --> Cr continues to downtrend 1.92 -->1.37 today. Nephrology following - Maintain MAP 65 or greater, avoid nephrotoxic agents. Continue Lasix drip Hyponatremia with excess extracellular fluid vol ume 04/21/2015 06/02/2015 Overview: Likely hypervolemic hyponatremia. Na improved form 126 to 130 this am. Patient is already on torsemide, spironolactone and metolazone at home. Plan: - Continue to diurese as kidney function allows. 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 - O2 requirements as needed (uses 2L NC at home at night). - Continue home O2 - Patient was seen by lung transplant team. Tests required include: Quantitative perfusion scan (done) Gastric emptying study, esophageal manometry and 24hr pH study (ordered) Dental consultation (will need to call ) Social Work (on board) Iron deficiency anemia 01/25/2013 7 Overview: Menstruating female with iron deficiency Cardiomegaly 01/25/2013 09/02/2015 Overview: -- RV enlargement due to PH Exertional dyspnea 01/25/2013 09/02/2015 Mediastinal adenopathy 01/25/2013 5 Hilar adenopathy 01/25/2013 08/21/2015 Overview: Noted on imaging- mother with a history of Sarcoid Could be 2/2 to chronic VTE and pHTN Lung nodules 01/25/2013 09/02/2015 Overview: Noted on imaging Follow Anticoagulation management encounter 01/25/2013 01/26/2013 SUMMARY 01/24/2013 02/02/2013 Overview: This is a 17 year old female with no significant PMH other than migraine and minimal allergies who developed significant SOB within the past 2 months, this progressed to the point where she was unable to walk up 2 flights of stairs and had mild chest pressure with activty. This worsened on a recent trip to [place] where she was on a 6 hour plane ride leading to a near syncopal episode. She presented ot her PCP for fatigue and was found to have anemia, elevated WBC count and on echo a elevated RVSP and dilated RV. She was sent for CT at her local Ed where she was found to have 2 small PE's. Patient sent for further evaluation. At admission upon review of her Ct there is no PE noted, she does however have significant cardiomegaly, increase RVSP and right atrial dilatation, will need to work up cause of PAH PAH (pulmonary artery hypertension) 01/24/2013 08/21/2015 Overview: Found to have elevated RVSP on echo with RV dilatation. ? Sarcoid as she has a family hx as well as polyarthralgia and fatigue - now with hilar lymphadenopathy RHC revealing PA HTN. 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 as angio was suggestive of multiple PEs small and chronic Plan: Further Remodulin titration as an out-patient q weekly, now on 7.5 ng/kg/min PET scan for VALERIA in the chest complete 02/07 Night sweats 01/24/2013 08/21/2015 Overview: Unclear etiology- Awaiting further PAH workup and Rheum w/u is neg so far documented as of this encounter (statuses as of 03/17/2022) [facility] History of Past illness Narrative* Problem Noted Date Resolved Date Abnormality of gait 12/24/2015 04/11/2017 Ascites 07/13/2015 08/21/2015 Overview: Abdominal distension 07/09 KUB: air in stomach, repeat on 07/11: no dilated loops of bowel 07/11: US abdomen + ascites 07/13 Paracentesis ~ 2L straw colored fluid A/P: Abdomen soft, distended. No c/o abd. fullness. Monitor. Seizure 06/22/2015 08/21/2015 Overview: 06/22/2015 0230 Sudden new onset seizures - with generalized rhythmic contractions of all extremities plus facial twitching. Treated lorazepam and midazolam. Stat head CT negative for bleed. No acute metabolic changes on ABG. Concern for withdrawal from opioids - had been on high dose fentanyl infusion for 3 weeks -infusion d'tabitha on 06/18/15. Neuro consulted and continuous EEG monitoring ordered. Cont vEEG showing mild diffuse encephalopathy but no epileptiform form activity. A/P:: No seizure activity since 06/22. Keppra discontinued per ALD. Abdominal distension 06/15/2015 06/16/2015 Overview: TF held. KUB pending. Fever 06/08/2015 08/21/2015 Overview: S/p CT chest/abd 06/18, which showed RLL collapse, with findings suggestive of necrotic PNA, and scattered upper lobe opacities; moderate ascites, cholelithiasis and gallbladder sludging without cholecystitis. Remains afebrile. No leukocytosis. - Urine cx (06/07), neg; Bld cx (06/11) x2 - NGTD - One blood culture (06/06) grew lactobacillus - Bld/UA cx drawn (06/16) - neg - BAL cx (06/20): smear shows GPC in clusters - Bld cx (06/21) NGTD Plan: - Meropenem stopped on 06/22 - Cont PO Vancomycin through hospitalization - F/u BAL cx (06/20) - Smear currently shows GPC in clusters but no organisms on culture; in the setting of resurgence of fevers, restarted on IV Vanc on 06/18->. Continue Vancomycin oral Mild protein-calorie malnutrition 06/04/2015 04/11/2017 Overview: Nutrition following. Ice chips only per beside swallow evaluation. Advanced to popcicle and applesauce 07/19 A/P: Tolerating TF via corpak at goal. Continue TF at current rate, monitor labs. Speech evaluation today Ischemia of hand 06/01/2015 06/05/2015 Overview: Radial a line removed- good doppler signals Dexter ndiaye placed Heparin infusion for goal pTT 45-55. Ischemia of lower extremity 06/01/201505/13 Overview: Left lower extremity ischemia, has regained DP/PT doppler signals, but calf muscles remains somewhat tense. A/P: CKs normalizing, will stop following CK levels at this time. Vascular surgery signing off, appreciate assistance. 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 Radial art line was in LUE. Art line removed and arterial duplex showed radial artery thrombosis with patent ulnar artery. Pt now with strong pulse in L radial artery. Thrombocytopenia 06/01/2015 06/08/2015 Overview: Required massive transfusion after OR, placed on VA ECMO. Likely consumptive coagulopathy, however PF4 antibody sent given recent initiation of heparin IV. A/P: -Appears to be resolving, platelets 98,000 today. Cardiac insufficiency following cardiac surgery 05/30/2015 06/15/2015 Overview: Severe RV, arrived from OR on iflolan and Epi. iFlolan weaned off A/P: Off epi and iFlolan. Open chest wound 05/30/2015 06/11/2015 Overview: S/p Lung Tx A/P: Dressing intact, continue ATBX while chest is open. Possible closure today Volume overload 05/30/2015 09/02/2015 Overview: + fluid balance due to multiple transfusions and volume replacement for shock in the early post op period. A/P: - 1.9 L/24hr. Continue diuresis, monitor UOP and labs. Personal history of ECMO 05/30/2015 015 Overview: VV ECMO on 05/30, Transitioned to VA ECMO 05/31. VA ECMO weaned 06/03, back on VV ECMO Decannulated on 06/15. Stress hyperglycemia 05/30/2015 06/11/2015 Overview: S/P Lung Tx A/P: Stress hyperglycemia exacerbated by surgery and pressors. RHI infusion for glycemic control. Shock liver - hepatic insufficiency 05/30/2015 06/05/2015 Overview: Markedly elevated LFTs, persistent coagulopathy and bleeding despite near- continuous trasnfusion of blood products. Also recurrent hypoglycemia requiring D50 boluses and D10W infusion. A/P: LFTs downtrending. 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 Progressively hypoxemic after arrival to ICU despite maximal MV support with lung protective ventilation and inhaled epoprostenol. NMB, inverted I:E ratio, high PEEP, low Vt with permissive hypercapnia only helped transiently. VV ECMO placed. Optimize vent settings, BPH, pain control, VV ECMO. Worsening lung compliance d/t hypervolemia (pulm edema) and/ or PGD. Continues on iFlolan. Switched to VA ECMO but maintaining very low Vt plus high PEEP. 06/03 Washout with VA ECMO weaned. VV ECMO initiated. S/p ECMO decannulation 06/15. S/p trach 06/19. Tolerated ~>11hrs on 07/06, but CXR with increased atelectasis following. A/P: CXR with bilateral opacities. Tolerating TC ATC. Continue TC, BPH, pain control, OOB. Consumption coagulopathy 05/29/2015 015 Overview: S/P Lung Transplant. Severe coagulopathic bleeding intraop and immediately postop. Received multiple blood products - plts, cryoppt, FFP and prbcs. Also rewarming for postop hypothermia. A/P: 4u pRBC and 2u platelets distribution coordinator to OR. PF4 antibody negative Chest remains open. Hypotension 05/29/2015 06/15/2015 Overview: Post Lung Tx. Severely vasoplegic intraop and immediately postop requiring multiple inopressors. Received methylene blue bolus intraop. Arrived ICU on epi, norepi, vasopressin and phenylephrine was added in ICU to maintain MAP >60mmHg. Wean for MAP 65 or greater. A/P: Off epi. Maintain MAPs 65-75. Acute blood loss anemia 05/29/2015 09/02/20 15 Overview: H/H remains low but stable. 07/10: H/H 6.6/21--transfused 1 unit 07/11: Transfused for 6.8/.3 A/P: Monitor H/H, transfuse prn. Acute postoperative pain 05/29/2015 015 Overview: Post op lung Tx A/P: Dilaudid and acetaminophen prn for pain Immunosuppressed status 05/29/2015 09/02/20 15 Overview: S/p b/l lung transplant on 05/29/2015 -immunosuppression and antiimicrobial prophylaxis as per Transplant Pulmonology. -Cont Tac/MMF/Pred. 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 BP has been on the lower side. Oxygen requirement increased to 3L from 2 L Plan: - Will get repeat Echo with bubble study (last one from January 2015). - Place a PA cath and continue to diurese while monitoring her right heart pressures. - Will need IV lasix-received 80 IV lasix on 04/20 and 100 IV lasix on 04/21 - Continue spironolactone. JAMES (acute kidney injury) 04/21/20152014 Overview: Baseline Cr 0.9 (04/09) -> Cr up to 2.4. A/P: JAMES is likely 2/2 ATN given hypotension and hemorrhage. Balance volume repletion with diuresis --> Cr continues to downtrend 1.92 -->1.37 today. Nephrology following - Maintain MAP 65 or greater, avoid nephrotoxic agents. Continue Lasix drip Hyponatremia with excess extracellular fluid vol ume 04/21/2015 06/02/2015 Overview: Likely hypervolemic hyponatremia. Na improved form 126 to 130 this am. Patient is already on torsemide, spironolactone and metolazone at home. Plan: - Continue to diurese as kidney function allows. 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 - O2 requirements as needed (uses 2L NC at home at night). - Continue home O2 - Patient was seen by lung transplant team. Tests required include: Quantitative perfusion scan (done) Gastric emptying study, esophageal manometry and 24hr pH study (ordered) Dental consultation (will need to call ) Social Work (on board) Iron deficiency anemia 01/25/2013 7 Overview: Menstruating female with iron deficiency Cardiomegaly 01/25/2013 09/02/2015 Overview: -- RV enlargement due to PH Exertional dyspnea 01/25/2013 09/02/2015 Mediastinal adenopathy 01/25/2013 5 Hilar adenopathy 01/25/2013 08/21/2015 Overview: Noted on imaging- mother with a history of Sarcoid Could be 2/2 to chronic VTE and pHTN Lung nodules 01/25/2013 09/02/2015 Overview: Noted on imaging Follow Anticoagulation management encounter 01/25/2013 01/26/2013 SUMMARY 01/24/2013 02/02/2013 Overview: This is a 17 year old female with no significant PMH other than migraine and minimal allergies who developed significant SOB within the past 2 months, this progressed to the point where she was unable to walk up 2 flights of stairs and had mild chest pressure with activty. This worsened on a recent trip to [place] where she was on a 6 hour plane ride leading to a near syncopal episode. She presented ot her PCP for fatigue and was found to have anemia, elevated WBC count and on echo a elevated RVSP and dilated RV. She was sent for CT at her local Ed where she was found to have 2 small PE's. Patient sent for further evaluation. At admission upon review of her Ct there is no PE noted, she does however have significant cardiomegaly, increase RVSP and right atrial dilatation, will need to work up cause of PAH PAH (pulmonary artery hypertension) 01/24/2013 08/21/2015 Overview: Found to have elevated RVSP on echo with RV dilatation. ? Sarcoid as she has a family hx as well as polyarthralgia and fatigue - now with hilar lymphadenopathy RHC revealing PA HTN. 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 as angio was suggestive of multiple PEs small and chronic Plan: Further Remodulin titration as an out-patient q weekly, now on 7.5 ng/kg/min PET scan for VALERIA in the chest complete 02/07 Night sweats 01/24/2013 08/21/2015 Overview: Unclear etiology- Awaiting further PAH workup and Rheum w/u is neg so far documented as of this encounter (statuses as of 04/01/2022) [facility]04-14-2016 History of Past illness Narrative* Problem Noted Date Resolved Date Abnormality of gait 12/24/2015 04/11/2017 Ascites 07/13/2015 08/21/2015 Overview: Abdominal distension 07/09 KUB: air in stomach, repeat on 07/11: no dilated loops of bowel 07/11: US abdomen + ascites 07/13 Paracentesis ~ 2L straw colored fluid A/P: Abdomen soft, distended. No c/o abd. fullness. Monitor. Seizure 06/22/2015 08/21/2015 Overview: 06/22/2015 0230 Sudden new onset seizures - with generalized rhythmic contractions of all extremities plus facial twitching. Treated lorazepam and midazolam. Stat head CT negative for bleed. No acute metabolic changes on ABG. Concern for withdrawal from opioids - had been on high dose fentanyl infusion for 3 weeks -infusion d'tabitha on 06/18/15. Neuro consulted and continuous EEG monitoring ordered. Cont vEEG showing mild diffuse encephalopathy but no epileptiform form activity. A/P:: No seizure activity since 06/22. Keppra discontinued per ALD. Abdominal distension 06/15/2015 06/16/2015 Overview: TF held. KUB pending. Fever 06/08/2015 08/21/2015 Overview: S/p CT chest/abd 06/18, which showed RLL collapse, with findings suggestive of necrotic PNA, and scattered upper lobe opacities; moderate ascites, cholelithiasis and gallbladder sludging without cholecystitis. Remains afebrile. No leukocytosis. - Urine cx (06/07), neg; Bld cx (06/11) x2 - NGTD - One blood culture (06/06) grew lactobacillus - Bld/UA cx drawn (06/16) - neg - BAL cx (06/20): smear shows GPC in clusters - Bld cx (06/21) NGTD Plan: - Meropenem stopped on 06/22 - Cont PO Vancomycin through hospitalization - F/u BAL cx (06/20) - Smear currently shows GPC in clusters but no organisms on culture; in the setting of resurgence of fevers, restarted on IV Vanc on 06/18->. Continue Vancomycin oral Mild protein-calorie malnutrition 06/04/2015 04/11/2017 Overview: Nutrition following. Ice chips only per beside swallow evaluation. Advanced to popcicle and applesauce 07/19 A/P: Tolerating TF via corpak at goal. Continue TF at current rate, monitor labs. Speech evaluation today Ischemia of hand 06/01/2015 06/05/2015 Overview: Radial a line removed- good doppler signals Dexter ndiaye placed Heparin infusion for goal pTT 45-55. Ischemia of lower extremity 06/01/201505/13 Overview: Left lower extremity ischemia, has regained DP/PT doppler signals, but calf muscles remains somewhat tense. A/P: CKs normalizing, will stop following CK levels at this time. Vascular surgery signing off, appreciate assistance. 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 Radial art line was in LUE. Art line removed and arterial duplex showed radial artery thrombosis with patent ulnar artery. Pt now with strong pulse in L radial artery. Thrombocytopenia 06/01/2015 06/08/2015 Overview: Required massive transfusion after OR, placed on VA ECMO. Likely consumptive coagulopathy, however PF4 antibody sent given recent initiation of heparin IV. A/P: -Appears to be resolving, platelets 98,000 today. Cardiac insufficiency following cardiac surgery 05/30/2015 06/15/2015 Overview: Severe RV, arrived from OR on iflolan and Epi. iFlolan weaned off A/P: Off epi and iFlolan. Open chest wound 05/30/2015 06/11/2015 Overview: S/p Lung Tx A/P: Dressing intact, continue ATBX while chest is open. Possible closure today Volume overload 05/30/2015 09/02/2015 Overview: + fluid balance due to multiple transfusions and volume replacement for shock in the early post op period. A/P: - 1.9 L/24hr. Continue diuresis, monitor UOP and labs. Personal history of ECMO 05/30/2015 015 Overview: VV ECMO on 05/30, Transitioned to VA ECMO 05/31. VA ECMO weaned 06/03, back on VV ECMO Decannulated on 06/15. Stress hyperglycemia 05/30/2015 06/11/2015 Overview: S/P Lung Tx A/P: Stress hyperglycemia exacerbated by surgery and pressors. RHI infusion for glycemic control. Shock liver - hepatic insufficiency 05/30/2015 06/05/2015 Overview: Markedly elevated LFTs, persistent coagulopathy and bleeding despite near- continuous trasnfusion of blood products. Also recurrent hypoglycemia requiring D50 boluses and D10W infusion. A/P: LFTs downtrending. 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 Progressively hypoxemic after arrival to ICU despite maximal MV support with lung protective ventilation and inhaled epoprostenol. NMB, inverted I:E ratio, high PEEP, low Vt with permissive hypercapnia only helped transiently. VV ECMO placed. Optimize vent settings, BPH, pain control, VV ECMO. Worsening lung compliance d/t hypervolemia (pulm edema) and/ or PGD. Continues on iFlolan. Switched to VA ECMO but maintaining very low Vt plus high PEEP. 06/03 Washout with VA ECMO weaned. VV ECMO initiated. S/p ECMO decannulation 06/15. S/p trach 06/19. Tolerated ~>11hrs on 07/06, but CXR with increased atelectasis following. A/P: CXR with bilateral opacities. Tolerating TC ATC. Continue TC, BPH, pain control, OOB. Consumption coagulopathy 05/29/201506/06/ 015 Overview: S/P Lung Transplant. Severe coagulopathic bleeding intraop and immediately postop. Received multiple blood products - plts, cryoppt, FFP and prbcs. Also rewarming for postop hypothermia. A/P: 4u pRBC and 2u platelets distribution coordinator to OR. PF4 antibody negative Chest remains open. Hypotension 05/29/2015 06/15/2015 Overview: Post Lung Tx. Severely vasoplegic intraop and immediately postop requiring multiple inopressors. Received methylene blue bolus intraop. Arrived ICU on epi, norepi, vasopressin and phenylephrine was added in ICU to maintain MAP >60mmHg. Wean for MAP 65 or greater. A/P: Off epi. Maintain MAPs 65-75. Acute blood loss anemia 05/29/2015 09/02/20 15 Overview: H/H remains low but stable. 07/10: H/H 6.03/01--transfused 1 unit 07/11: Transfused for .05/01.3 A/P: Monitor H/H, transfuse prn. Acute postoperative pain 05/29/2015 015 Overview: Post op lung Tx A/P: Dilaudid and acetaminophen prn for pain Immunosuppressed status 05/29/2015 09/02/20 15 Overview: S/p b/l lung transplant on 05/29/2015 -immunosuppression and antiimicrobial prophylaxis as per Transplant Pulmonology. -Cont Tac/MMF/Pred. 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 BP has been on the lower side. Oxygen requirement increased to 3L from 2 L Plan: - Will get repeat Echo with bubble study (last one from January 2015). - Place a PA cath and continue to diurese while monitoring her right heart pressures. - Will need IV lasix-received 80 IV lasix on 04/20 and 100 IV lasix on 04/21 - Continue spironolactone. JAMES (acute kidney injury) 04/21/20152014 Overview: Baseline Cr 0.9 (04/09) -> Cr up to 2.4. A/P: JAMES is likely 2/2 ATN given hypotension and hemorrhage. Balance volume repletion with diuresis --> Cr continues to downtrend 1.92 -->1.37 today. Nephrology following - Maintain MAP 65 or greater, avoid nephrotoxic agents. Continue Lasix drip Hyponatremia with excess extracellular fluid vol ume 04/21/2015 06/02/2015 Overview: Likely hypervolemic hyponatremia. Na improved form 126 to 130 this am. Patient is already on torsemide, spironolactone and metolazone at home. Plan: - Continue to diurese as kidney function allows. 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 - O2 requirements as needed (uses 2L NC at home at night). - Continue home O2 - Patient was seen by lung transplant team. Tests required include: Quantitative perfusion scan (done) Gastric emptying study, esophageal manometry and 24hr pH study (ordered) Dental consultation (will need to call ) Social Work (on board) Iron deficiency anemia 01/25/2013 7 Overview: Menstruating female with iron deficiency Cardiomegaly 01/25/2013 09/02/2015 Overview: -- RV enlargement due to PH Exertional dyspnea 01/25/2013 09/02/2015 Mediastinal adenopathy 01/25/2013 5 Hilar adenopathy 01/25/2013 08/21/2015 Overview: Noted on imaging- mother with a history of Sarcoid Could be 2/2 to chronic VTE and pHTN Lung nodules 01/25/2013 09/02/2015 Overview: Noted on imaging Follow Anticoagulation management encounter 01/25/2013 01/26/2013 SUMMARY 01/24/2013 02/02/2013 Overview: This is a 17 year old female with no significant PMH other than migraine and minimal allergies who developed significant SOB within the past 2 months, this progressed to the point where she was unable to walk up 2 flights of stairs and had mild chest pressure with activty. This worsened on a recent trip to [place] where she was on a 6 hour plane ride leading to a near syncopal episode. She presented ot her PCP for fatigue and was found to have anemia, elevated WBC count and on echo a elevated RVSP and dilated RV. She was sent for CT at her local Ed where she was found to have 2 small PE's. Patient sent for further evaluation. At admission upon review of her Ct there is no PE noted, she does however have significant cardiomegaly, increase RVSP and right atrial dilatation, will need to work up cause of PAH PAH (pulmonary artery hypertension) 01/24/2013 08/21/2015 Overview: Found to have elevated RVSP on echo with RV dilatation. ? Sarcoid as she has a family hx as well as polyarthralgia and fatigue - now with hilar lymphadenopathy RHC revealing PA HTN. 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 as angio was suggestive of multiple PEs small and chronic Plan: Further Remodulin titration as an out-patient q weekly, now on 7.5 ng/kg/min PET scan for VALERIA in the chest complete 5/30 Night sweats 01/24/2013 08/21/2015 Overview: Unclear etiology- Awaiting further PAH workup and Rheum w/u is neg so far documented as of this encounter (statuses as of 04/18/2022) [facility] History of Past illness Narrative* Problem Noted Date Resolved Date Abnormality of gait 12/24/2015 04/11/2017 Ascites 07/13/2015 08/21/2015 Overview: Abdominal distension 10/29 KUB: air in stomach, repeat on 07/11: no dilated loops of bowel 07/11: US abdomen + ascites 07/13 Paracentesis ~ 2L straw colored fluid A/P: Abdomen soft, distended. No c/o abd. fullness. Monitor. Seizure 06/22/2015 08/21/2015 Overview: 06/22/2015 0230 Sudden new onset seizures - with generalized rhythmic contractions of all extremities plus facial twitching. Treated lorazepam and midazolam. Stat head CT negative for bleed. No acute metabolic changes on ABG. Concern for withdrawal from opioids - had been on high dose fentanyl infusion for 3 weeks -infusion d'tabitha on 06/18/15. Neuro consulted and continuous EEG monitoring ordered. Cont vEEG showing mild diffuse encephalopathy but no epileptiform form activity. A/P:: No seizure activity since 06/22. Keppra discontinued per ALD. Abdominal distension 06/15/2015 06/16/2015 Overview: TF held. KUB pending. Fever 06/08/2015 08/21/2015 Overview: S/p CT chest/abd 06/18, which showed RLL collapse, with findings suggestive of necrotic PNA, and scattered upper lobe opacities; moderate ascites, cholelithiasis and gallbladder sludging without cholecystitis. Remains afebrile. No leukocytosis. - Urine cx (06/07), neg; Bld cx (06/11) x2 - NGTD - One blood culture (06/06) grew lactobacillus - Bld/UA cx drawn (06/16) - neg - BAL cx (06/20): smear shows GPC in clusters - Bld cx (06/21) NGTD Plan: - Meropenem stopped on 06/22 - Cont PO Vancomycin through hospitalization - F/u BAL cx (06/20) - Smear currently shows GPC in clusters but no organisms on culture; in the setting of resurgence of fevers, restarted on IV Vanc on 06/18->. Continue Vancomycin oral Mild protein-calorie malnutrition 06/04/2015 04/11/2017 Overview: Nutrition following. Ice chips only per beside swallow evaluation. Advanced to popcicle and applesauce 07/19 A/P: Tolerating TF via corpak at goal. Continue TF at current rate, monitor labs. Speech evaluation today Ischemia of hand 06/01/2015 06/05/2015 Overview: Radial a line removed- good doppler signals Rooke mittens placed Heparin infusion for goal pTT 45-55. Ischemia of lower extremity 06/01/201505/13 Overview: Left lower extremity ischemia, has regained DP/PT doppler signals, but calf muscles remains somewhat tense. A/P: CKs normalizing, will stop following CK levels at this time. Vascular surgery signing off, appreciate assistance. 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 Radial art line was in LUE. Art line removed and arterial duplex showed radial artery thrombosis with patent ulnar artery. Pt now with strong pulse in L radial artery. Thrombocytopenia 06/01/2015 06/08/2015 Overview: Required massive transfusion after OR, placed on VA ECMO. Likely consumptive coagulopathy, however PF4 antibody sent given recent initiation of heparin IV. A/P: -Appears to be resolving, platelets 98,000 today. Cardiac insufficiency following cardiac surgery 05/30/2015 06/15/2015 Overview: Severe RV, arrived from OR on iflolan and Epi. iFlolan weaned off A/P: Off epi and iFlolan. Open chest wound 05/30/2015 06/11/2015 Overview: S/p Lung Tx A/P: Dressing intact, continue ATBX while chest is open. Possible closure today Volume overload 05/30/2015 09/02/2015 Overview: + fluid balance due to multiple transfusions and volume replacement for shock in the early post op period. A/P: - 1.9 L/24hr. Continue diuresis, monitor UOP and labs. Personal history of ECMO 05/30/2015 015 Overview: VV ECMO on 05/30, Transitioned to VA ECMO 05/31. VA ECMO weaned 06/03, back on VV ECMO Decannulated on 06/15. Stress hyperglycemia 05/30/2015 06/11/2015 Overview: S/P Lung Tx A/P: Stress hyperglycemia exacerbated by surgery and pressors. RHI infusion for glycemic control. Shock liver - hepatic insufficiency 05/30/2015 06/05/2015 Overview: Markedly elevated LFTs, persistent coagulopathy and bleeding despite near- continuous trasnfusion of blood products. Also recurrent hypoglycemia requiring D50 boluses and D10W infusion. A/P: LFTs downtrending. 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 Progressively hypoxemic after arrival to ICU despite maximal MV support with lung protective ventilation and inhaled epoprostenol. NMB, inverted I:E ratio, high PEEP, low Vt with permissive hypercapnia only helped transiently. VV ECMO placed. Optimize vent settings, BPH, pain control, VV ECMO. Worsening lung compliance d/t hypervolemia (pulm edema) and/ or PGD. Continues on iFlolan. Switched to VA ECMO but maintaining very low Vt plus high PEEP. 06/03 Washout with VA ECMO weaned. VV ECMO initiated. S/p ECMO decannulation 06/15. S/p trach 06/19. Tolerated ~>11hrs on 07/06, but CXR with increased atelectasis following. A/P: CXR with bilateral opacities. Tolerating TC ATC. Continue TC, BPH, pain control, OOB. Consumption coagulopathy 05/29/2015 015 Overview: S/P Lung Transplant. Severe coagulopathic bleeding intraop and immediately postop. Received multiple blood products - plts, cryoppt, FFP and prbcs. Also rewarming for postop hypothermia. A/P: 4u pRBC and 2u platelets distribution coordinator to OR. PF4 antibody negative Chest remains open. Hypotension 05/29/2015 06/15/2015 Overview: Post Lung Tx. Severely vasoplegic intraop and immediately postop requiring multiple inopressors. Received methylene blue bolus intraop. Arrived ICU on epi, norepi, vasopressin and phenylephrine was added in ICU to maintain MAP >60mmHg. Wean for MAP 65 or greater. A/P: Off epi. Maintain MAPs 65-75. Acute blood loss anemia 05/29/2015 09/02/20 15 Overview: H/H remains low but stable. 07/10: H/H 6.6/--transfused 1 unit 07/11: Transfused for 6.8.3 A/P: Monitor H/H, transfuse prn. Acute postoperative pain 05/29/2015 015 Overview: Post op lung Tx A/P: Dilaudid and acetaminophen prn for pain Immunosuppressed status 05/29/2015 09/02/20 15 Overview: S/p b/l lung transplant on 05/29/2015 -immunosuppression and antiimicrobial prophylaxis as per Transplant Pulmonology. -Cont Tac/MMF/Pred. 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 BP has been on the lower side. Oxygen requirement increased to 3L from 2 L Plan: - Will get repeat Echo with bubble study (last one from January 2015). - Place a PA cath and continue to diurese while monitoring her right heart pressures. - Will need IV lasix-received 80 IV lasix on 04/20 and 100 IV lasix on 04/21 - Continue spironolactone. JAMES (acute kidney injury) 04/21/20152014 Overview: Baseline Cr 0.9 (04/09) -> Cr up to 2.4. A/P: JAMES is likely 2/2 ATN given hypotension and hemorrhage. Balance volume repletion with diuresis --> Cr continues to downtrend 1.92 -->1.37 today. Nephrology following - Maintain MAP 65 or greater, avoid nephrotoxic agents. Continue Lasix drip Hyponatremia with excess extracellular fluid vol ume 04/21/2015 06/02/2015 Overview: Likely hypervolemic hyponatremia. Na improved form 126 to 130 this am. Patient is already on torsemide, spironolactone and metolazone at home. Plan: - Continue to diurese as kidney function allows. 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 - O2 requirements as needed (uses 2L NC at home at night). - Continue home O2 - Patient was seen by lung transplant team. Tests required include: Quantitative perfusion scan (done) Gastric emptying study, esophageal manometry and 24hr pH study (ordered) Dental consultation (will need to call ) Social Work (on board) Iron deficiency anemia 01/25/2013 7 Overview: Menstruating female with iron deficiency Cardiomegaly 01/25/2013 09/02/2015 Overview: -- RV enlargement due to PH Exertional dyspnea 01/25/2013 09/02/2015 Mediastinal adenopathy 01/25/2013 5 Hilar adenopathy 01/25/2013 08/21/2015 Overview: Noted on imaging- mother with a history of Sarcoid Could be 2/2 to chronic VTE and pHTN Lung nodules 01/25/2013 09/02/2015 Overview: Noted on imaging Follow Anticoagulation management encounter 01/25/2013 01/26/2013 SUMMARY 01/24/2013 02/02/2013 Overview: This is a 17 year old female with no significant PMH other than migraine and minimal allergies who developed significant SOB within the past 2 months, this progressed to the point where she was unable to walk up 2 flights of stairs and had mild chest pressure with activty. This worsened on a recent trip to [place] where she was on a 6 hour plane ride leading to a near syncopal episode. She presented ot her PCP for fatigue and was found to have anemia, elevated WBC count and on echo a elevated RVSP and dilated RV. She was sent for CT at her local Ed where she was found to have 2 small PE's. Patient sent for further evaluation. At admission upon review of her Ct there is no PE noted, she does however have significant cardiomegaly, increase RVSP and right atrial dilatation, will need to work up cause of PAH PAH (pulmonary artery hypertension) 01/24/2013 08/21/2015 Overview: Found to have elevated RVSP on echo with RV dilatation. ? Sarcoid as she has a family hx as well as polyarthralgia and fatigue - now with hilar lymphadenopathy RHC revealing PA HTN. 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 as angio was suggestive of multiple PEs small and chronic Plan: Further Remodulin titration as an out-patient q weekly, now on 7.5 ng/kg/min PET scan for VALERIA in the chest complete 530 Night sweats 01/24/2013 08/21/2015 Overview: Unclear etiology- Awaiting further PAH workup and Rheum w/u is neg so far documented as of this encounter (statuses as of 05/03/2022) [facility] History of Past illness Narrative* Problem Noted Date Resolved Date Abnormality of gait 12/24/2015 04/11/2017 Ascites 07/13/2015 08/21/2015 Overview: Abdominal distension 07/09 KUB: air in stomach, repeat on 07/11: no dilated loops of bowel 07/11: US abdomen + ascites 07/13 Paracentesis ~ 2L straw colored fluid A/P: Abdomen soft, distended. No c/o abd. fullness. Monitor. Seizure 06/22/2015 08/21/2015 Overview: 06/22/2015 0230 Sudden new onset seizures - with generalized rhythmic contractions of all extremities plus facial twitching. Treated lorazepam and midazolam. Stat head CT negative for bleed. No acute metabolic changes on ABG. Concern for withdrawal from opioids - had been on high dose fentanyl infusion for 3 weeks -infusion d'tabitha on 06/18/15. Neuro consulted and continuous EEG monitoring ordered. Cont vEEG showing mild diffuse encephalopathy but no epileptiform form activity. A/P:: No seizure activity since 06/22. Keppra discontinued per ALD. Abdominal distension 06/15/2015 06/16/2015 Overview: TF held. KUB pending. Fever 06/08/2015 08/21/2015 Overview: S/p CT chest/abd 06/18, which showed RLL collapse, with findings suggestive of necrotic PNA, and scattered upper lobe opacities; moderate ascites, cholelithiasis and gallbladder sludging without cholecystitis. Remains afebrile. No leukocytosis. - Urine cx (06/07), neg; Bld cx (06/11) x2 - NGTD - One blood culture (06/06) grew lactobacillus - Bld/UA cx drawn (06/16) - neg - BAL cx (06/20): smear shows GPC in clusters - Bld cx (06/21) NGTD Plan: - Meropenem stopped on 06/22 - Cont PO Vancomycin through hospitalization - F/u BAL cx (06/20) - Smear currently shows GPC in clusters but no organisms on culture; in the setting of resurgence of fevers, restarted on IV Vanc on 06/18->. Continue Vancomycin oral Mild protein-calorie malnutrition 06/04/2015 04/11/2017 Overview: Nutrition following. Ice chips only per beside swallow evaluation. Advanced to popcicle and applesauce 07/19 A/P: Tolerating TF via corpak at goal. Continue TF at current rate, monitor labs. Speech evaluation today Ischemia of hand 06/01/2015 06/05/2015 Overview: Radial a line removed- good doppler signals Rooke mittens placed Heparin infusion for goal pTT 45-55. Ischemia of lower extremity 06/01/201505/13 Overview: Left lower extremity ischemia, has regained DP/PT doppler signals, but calf muscles remains somewhat tense. A/P: CKs normalizing, will stop following CK levels at this time. Vascular surgery signing off, appreciate assistance. 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 Radial art line was in LUE. Art line removed and arterial duplex showed radial artery thrombosis with patent ulnar artery. Pt now with strong pulse in L radial artery. Thrombocytopenia 06/01/2015 06/08/2015 Overview: Required massive transfusion after OR, placed on [facility] ECMO. Likely consumptive coagulopathy, however PF4 antibody sent given recent initiation of heparin IV. A/P: -Appears to be resolving, platelets 98,000 today. Cardiac insufficiency following cardiac surgery 05/30/2015 06/15/2015 Overview: Severe RV, arrived from OR on iflolan and Epi. iFlolan weaned off A/P: Off epi and iFlolan. Open chest wound 05/30/2015 06/11/2015 Overview: S/p Lung Tx A/P: Dressing intact, continue ATBX while chest is open. Possible closure today Volume overload 05/30/2015 09/02/2015 Overview: + fluid balance due to multiple transfusions and volume replacement for shock in the early post op period. A/P: - 1.9 L/24hr. Continue diuresis, monitor UOP and labs. Personal history of ECMO 05/30/2015 015 Overview: VV ECMO on 05/30, Transitioned to [facility] ECMO 05/31. VA ECMO weaned 06/03, back on VV ECMO Decannulated on 06/15. Stress hyperglycemia 05/30/2015 06/11/2015 Overview: S/P Lung Tx A/P: Stress hyperglycemia exacerbated by surgery and pressors. RHI infusion for glycemic control. Shock liver - hepatic insufficiency 05/30/2015 06/05/2015 Overview: Markedly elevated LFTs, persistent coagulopathy and bleeding despite near- continuous trasnfusion of blood products. Also recurrent hypoglycemia requiring D50 boluses and D10W infusion. A/P: LFTs downtrending. 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 Progressively hypoxemic after arrival to ICU despite maximal MV support with lung protective ventilation and inhaled epoprostenol. NMB, inverted I:E ratio, high PEEP, low Vt with permissive hypercapnia only helped transiently. VV ECMO placed. Optimize vent settings, BPH, pain control, VV ECMO. Worsening lung compliance d/t hypervolemia (pulm edema) and/ or PGD. Continues on iFlolan. Switched to VA ECMO but maintaining very low Vt plus high PEEP. 06/03 Washout with VA ECMO weaned. VV ECMO initiated. S/p ECMO decannulation 06/15. S/p trach 06/19. Tolerated ~>11hrs on 07/06, but CXR with increased atelectasis following. A/P: CXR with bilateral opacities. Tolerating TC ATC. Continue TC, BPH, pain control, OOB. Consumption coagulopathy 05/29/2015 015 Overview: S/P Lung Transplant. Severe coagulopathic bleeding intraop and immediately postop. Received multiple blood products - plts, cryoppt, FFP and prbcs. Also rewarming for postop hypothermia. A/P: 4u pRBC and 2u platelets distribution coordinator to OR. PF4 antibody negative Chest remains open. Hypotension 05/29/2015 06/15/2015 Overview: Post Lung Tx. Severely vasoplegic intraop and immediately postop requiring multiple inopressors. Received methylene blue bolus intraop. Arrived ICU on epi, norepi, vasopressin and phenylephrine was added in ICU to maintain MAP >60mmHg. Wean for MAP 65 or greater. A/P: Off epi. Maintain MAPs 65-75. Acute blood loss anemia 05/29/2015 09/02/20 15 Overview: H/H remains low but stable. 07/10: H/H 6.6/21--transfused 1 unit 07/11: Transfused for 6.8/.3 A/P: Monitor H/H, transfuse prn. Acute postoperative pain 05/29/2015 015 Overview: Post op lung Tx A/P: Dilaudid and acetaminophen prn for pain Immunosuppressed status 05/29/2015 09/02/20 15 Overview: S/p b/l lung transplant on 05/29/2015 -immunosuppression and antiimicrobial prophylaxis as per Transplant Pulmonology. -Cont Tac/MMF/Pred. 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 BP has been on the lower side. Oxygen requirement increased to 3L from 2 L Plan: - Will get repeat Echo with bubble study (last one from January 2015). - Place a PA cath and continue to diurese while monitoring her right heart pressures. - Will need IV lasix-received 80 IV lasix on 04/20 and 100 IV lasix on 04/21 - Continue spironolactone. JAMES (acute kidney injury) 04/21/20152014 Overview: Baseline Cr 0.9 (04/09) -> Cr up to 2.4. A/P: JAMES is likely 2/2 ATN given hypotension and hemorrhage. Balance volume repletion with diuresis --> Cr continues to downtrend 1.92 -->1.37 today. Nephrology following - Maintain MAP 65 or greater, avoid nephrotoxic agents. Continue Lasix drip Hyponatremia with excess extracellular fluid vol ume 04/21/2015 06/02/2015 Overview: Likely hypervolemic hyponatremia. Na improved form 126 to 130 this am. Patient is already on torsemide, spironolactone and metolazone at home. Plan: - Continue to diurese as kidney function allows. 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 - O2 requirements as needed (uses 2L NC at home at night). - Continue home O2 - Patient was seen by lung transplant team. Tests required include: Quantitative perfusion scan (done) Gastric emptying study, esophageal manometry and 24hr pH study (ordered) Dental consultation (will need to call ) Social Work (on board) Iron deficiency anemia 01/25/2013 Overview: Menstruating female with iron deficiency Cardiomegaly 01/25/2013 09/02/2015 Overview: -- RV enlargement due to PH Exertional dyspnea 01/25/2013 09/02/2015 Mediastinal adenopathy 01/25/2013 5 Hilar adenopathy 01/25/2013 08/21/2015 Overview: Noted on imaging- mother with a history of Sarcoid Could be 2/2 to chronic VTE and pHTN Lung nodules 01/25/2013 09/02/2015 Overview: Noted on imaging Follow Anticoagulation management encounter 01/25/2013 01/26/2013 SUMMARY 01/24/2013 02/02/2013 Overview: This is a 17 year old female with no significant PMH other than migraine and minimal allergies who developed significant SOB within the past 2 months, this progressed to the point where she was unable to walk up 2 flights of stairs and had mild chest pressure with activty. This worsened on a recent trip to [place] where she was on a 6 hour plane ride leading to a near syncopal episode. She presented ot her PCP for fatigue and was found to have anemia, elevated WBC count and on echo a elevated RVSP and dilated RV. She was sent for CT at her local Ed where she was found to have 2 small PE's. Patient sent for further evaluation. At admission upon review of her Ct there is no PE noted, she does however have significant cardiomegaly, increase RVSP and right atrial dilatation, will need to work up cause of PAH PAH (pulmonary artery hypertension) 01/24/2013 08/21/2015 Overview: Found to have elevated RVSP on echo with RV dilatation. ? Sarcoid as she has a family hx as well as polyarthralgia and fatigue - now with hilar lymphadenopathy RHC revealing PA HTN. 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 as angio was suggestive of multiple PEs small and chronic Plan: Further Remodulin titration as an out-patient q weekly, now on 7.5 ng/kg/min PET scan for VALERIA in the chest complete 02/07 Night sweats 01/24/2013 08/21/2015 Overview: Unclear etiology- Awaiting further PAH workup and Rheum w/u is neg so far documented as of this encounter (statuses as of 05/04/2022) [facility] History of Past illness Narrative* Problem Noted Date Resolved Date Abnormality of gait 12/24/2015 04/11/2017 Ascites 07/13/2015 08/21/2015 Overview: Abdominal distension 07/09 KUB: air in stomach, repeat on 07/11: no dilated loops of bowel 07/11: US abdomen + ascites 07/13 Paracentesis ~ 2L straw colored fluid A/P: Abdomen soft, distended. No c/o abd. fullness. Monitor. Seizure 06/22/2015 08/21/2015 Overview: 06/22/2015 0230 Sudden new onset seizures - with generalized rhythmic contractions of all extremities plus facial twitching. Treated lorazepam and midazolam. Stat head CT negative for bleed. No acute metabolic changes on ABG. Concern for withdrawal from opioids - had been on high dose fentanyl infusion for 3 weeks -infusion d'tabitha on 06/18/15. Neuro consulted and continuous EEG monitoring ordered. Cont vEEG showing mild diffuse encephalopathy but no epileptiform form activity. A/P:: No seizure activity since 06/22. Keppra discontinued per ALD. Abdominal distension 06/15/2015 06/16/2015 Overview: TF held. KUB pending. Fever 06/08/2015 08/21/2015 Overview: S/p CT chest/abd 06/18, which showed RLL collapse, with findings suggestive of necrotic PNA, and scattered upper lobe opacities; moderate ascites, cholelithiasis and gallbladder sludging without cholecystitis. Remains afebrile. No leukocytosis. - Urine cx (06/07), neg; Bld cx (06/11) x2 - NGTD - One blood culture (06/06) grew lactobacillus - Bld/UA cx drawn (06/16) - neg - BAL cx (06/20): smear shows GPC in clusters - Bld cx (06/21) NGTD Plan: - Meropenem stopped on 06/22 - Cont PO Vancomycin through hospitalization - F/u BAL cx (06/20) - Smear currently shows GPC in clusters but no organisms on culture; in the setting of resurgence of fevers, restarted on IV Vanc on 06/18->. Continue Vancomycin oral Mild protein-calorie malnutrition 06/04/2015 04/11/2017 Overview: Nutrition following. Ice chips only per beside swallow evaluation. Advanced to popcicle and applesauce 07/19 A/P: Tolerating TF via corpak at goal. Continue TF at current rate, monitor labs. Speech evaluation today Ischemia of hand 06/01/2015 06/05/2015 Overview: Radial a line removed- good doppler signals Rooke mittens placed Heparin infusion for goal pTT 45-55. Ischemia of lower extremity 06/01/201505/13 Overview: Left lower extremity ischemia, has regained DP/PT doppler signals, but calf muscles remains somewhat tense. A/P: CKs normalizing, will stop following CK levels at this time. Vascular surgery signing off, appreciate assistance. 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 Radial art line was in LUE. Art line removed and arterial duplex showed radial artery thrombosis with patent ulnar artery. Pt now with strong pulse in L radial artery. Thrombocytopenia 06/01/2015 06/08/2015 Overview: Required massive transfusion after OR, placed on VA ECMO. Likely consumptive coagulopathy, however PF4 antibody sent given recent initiation of heparin IV. A/P: -Appears to be resolving, platelets 98,000 today. Cardiac insufficiency following cardiac surgery 05/30/2015 06/15/2015 Overview: Severe RV, arrived from OR on iflolan and Epi. iFlolan weaned off A/P: Off epi and iFlolan. Open chest wound 05/30/2015 06/11/2015 Overview: S/p Lung Tx A/P: Dressing intact, continue ATBX while chest is open. Possible closure today Volume overload 05/30/2015 09/02/2015 Overview: + fluid balance due to multiple transfusions and volume replacement for shock in the early post op period. A/P: - 1.9 L/24hr. Continue diuresis, monitor UOP and labs. Personal history of ECMO 05/30/2015 015 Overview: VV ECMO on 05/30, Transitioned to VA ECMO 05/31. VA ECMO weaned 06/03, back on VV ECMO Decannulated on 06/15. Stress hyperglycemia 05/30/2015 06/11/2015 Overview: S/P Lung Tx A/P: Stress hyperglycemia exacerbated by surgery and pressors. RHI infusion for glycemic control. Shock liver - hepatic insufficiency 05/30/2015 06/05/2015 Overview: Markedly elevated LFTs, persistent coagulopathy and bleeding despite near- continuous trasnfusion of blood products. Also recurrent hypoglycemia requiring D50 boluses and D10W infusion. A/P: LFTs downtrending. 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 Progressively hypoxemic after arrival to ICU despite maximal MV support with lung protective ventilation and inhaled epoprostenol. NMB, inverted I:E ratio, high PEEP, low Vt with permissive hypercapnia only helped transiently. VV ECMO placed. Optimize vent settings, BPH, pain control, VV ECMO. Worsening lung compliance d/t hypervolemia (pulm edema) and/ or PGD. Continues on iFlolan. Switched to VA ECMO but maintaining very low Vt plus high PEEP. 06/03 Washout with VA ECMO weaned. VV ECMO initiated. S/p ECMO decannulation 06/15. S/p trach 06/19. Tolerated ~>11hrs on 07/06, but CXR with increased atelectasis following. A/P: CXR with bilateral opacities. Tolerating TC ATC. Continue TC, BPH, pain control, OOB. Consumption coagulopathy 05/29/2015 015 Overview: S/P Lung Transplant. Severe coagulopathic bleeding intraop and immediately postop. Received multiple blood products - plts, cryoppt, FFP and prbcs. Also rewarming for postop hypothermia. A/P: 4u pRBC and 2u platelets distribution coordinator to OR. PF4 antibody negative Chest remains open. Hypotension 05/29/2015 06/15/2015 Overview: Post Lung Tx. Severely vasoplegic intraop and immediately postop requiring multiple inopressors. Received methylene blue bolus intraop. Arrived ICU on epi, norepi, vasopressin and phenylephrine was added in ICU to maintain MAP >60mmHg. Wean for MAP 65 or greater. A/P: Off epi. Maintain MAPs 65-75. Acute blood loss anemia 05/29/2015 09/02/20 15 Overview: H/H remains low but stable. 07/10: H/H 6.6/21--transfused 1 unit 07/11: Transfused for 6.8/.3 A/P: Monitor H/H, transfuse prn. Acute postoperative pain 05/29/2015 015 Overview: Post op lung Tx A/P: Dilaudid and acetaminophen prn for pain Immunosuppressed status 05/29/2015 09/02/20 15 Overview: S/p b/l lung transplant on 05/29/2015 -immunosuppression and antiimicrobial prophylaxis as per Transplant Pulmonology. -Cont Tac/MMF/Pred. 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 BP has been on the lower side. Oxygen requirement increased to 3L from 2 L Plan: - Will get repeat Echo with bubble study (last one from January 2015). - Place a PA cath and continue to diurese while monitoring her right heart pressures. - Will need IV lasix-received 80 IV lasix on 04/20 and 100 IV lasix on 04/21 - Continue spironolactone. JAMES (acute kidney injury) 04/21/20152014 Overview: Baseline Cr 0.9 (04/09) -> Cr up to 2.4. A/P: JAMES is likely 2/2 ATN given hypotension and hemorrhage. Balance volume repletion with diuresis --> Cr continues to downtrend 1.92 -->1.37 today. Nephrology following - Maintain MAP 65 or greater, avoid nephrotoxic agents. Continue Lasix drip Hyponatremia with excess extracellular fluid vol ume 04/21/2015 06/02/2015 Overview: Likely hypervolemic hyponatremia. Na improved form 126 to 130 this am. Patient is already on torsemide, spironolactone and metolazone at home. Plan: - Continue to diurese as kidney function allows. 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 - O2 requirements as needed (uses 2L NC at home at night). - Continue home O2 - Patient was seen by lung transplant team. Tests required include: Quantitative perfusion scan (done) Gastric emptying study, esophageal manometry and 24hr pH study (ordered) Dental consultation (will need to call ) Social Work (on board) Iron deficiency anemia 01/25/2013 7 Overview: Menstruating female with iron deficiency Cardiomegaly 01/25/2013 09/02/2015 Overview: -- RV enlargement due to PH Exertional dyspnea 01/25/2013 09/02/2015 Mediastinal adenopathy 01/25/2013 5 Hilar adenopathy 01/25/2013 08/21/2015 Overview: Noted on imaging- mother with a history of Sarcoid Could be 2/2 to chronic VTE and pHTN Lung nodules 01/25/2013 09/02/2015 Overview: Noted on imaging Follow Anticoagulation management encounter 01/25/2013 01/26/2013 SUMMARY 01/24/2013 02/02/2013 Overview: This is a 17 year old female with no significant PMH other than migraine and minimal allergies who developed significant SOB within the past 2 months, this progressed to the point where she was unable to walk up 2 flights of stairs and had mild chest pressure with activty. This worsened on a recent trip to [place] where she was on a 6 hour plane ride leading to a near syncopal episode. She presented ot her PCP for fatigue and was found to have anemia, elevated WBC count and on echo a elevated RVSP and dilated RV. She was sent for CT at her local Ed where she was found to have 2 small PE's. Patient sent for further evaluation. At admission upon review of her Ct there is no PE noted, she does however have significant cardiomegaly, increase RVSP and right atrial dilatation, will need to work up cause of PAH PAH (pulmonary artery hypertension) 01/24/2013 08/21/2015 Overview: Found to have elevated RVSP on echo with RV dilatation. ? Sarcoid as she has a family hx as well as polyarthralgia and fatigue - now with hilar lymphadenopathy RHC revealing PA HTN. 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 as angio was suggestive of multiple PEs small and chronic Plan: Further Remodulin titration as an out-patient q weekly, now on 7.5 ng/kg/min PET scan for VALERIA in the chest complete 02/07 Night sweats 01/24/2013 08/21/2015 Overview: Unclear etiology- Awaiting further PAH workup and Rheum w/u is neg so far documented as of this encounter (statuses as of 05/06/2022) [facility] History of Past illness Narrative* Problem Noted Date Resolved Date Abnormality of gait 12/24/2015 04/11/2017 Ascites 07/13/2015 08/21/2015 Overview: Abdominal distension 07/09 KUB: air in stomach, repeat on 07/11: no dilated loops of bowel 07/11: US abdomen + ascites 07/13 Paracentesis ~ 2L straw colored fluid A/P: Abdomen soft, distended. No c/o abd. fullness. Monitor. Seizure 06/22/2015 08/21/2015 Overview: 06/22/2015 0230 Sudden new onset seizures - with generalized rhythmic contractions of all extremities plus facial twitching. Treated lorazepam and midazolam. Stat head CT negative for bleed. No acute metabolic changes on ABG. Concern for withdrawal from opioids - had been on high dose fentanyl infusion for 3 weeks -infusion d'tabitha on 06/18/15. Neuro consulted and continuous EEG monitoring ordered. Cont vEEG showing mild diffuse encephalopathy but no epileptiform form activity. A/P:: No seizure activity since 06/22. Keppra discontinued per ALD. Abdominal distension 06/15/2015 06/16/2015 Overview: TF held. KUB pending. Fever 06/08/2015 08/21/2015 Overview: S/p CT chest/abd 06/18, which showed RLL collapse, with findings suggestive of necrotic PNA, and scattered upper lobe opacities; moderate ascites, cholelithiasis and gallbladder sludging without cholecystitis. Remains afebrile. No leukocytosis. - Urine cx (06/07), neg; Bld cx (06/11) x2 - NGTD - One blood culture (06/06) grew lactobacillus - Bld/UA cx drawn (06/16) - neg - BAL cx (06/20): smear shows GPC in clusters - Bld cx (06/21) NGTD Plan: - Meropenem stopped on 06/22 - Cont PO Vancomycin through hospitalization - F/u BAL cx (06/20) - Smear currently shows GPC in clusters but no organisms on culture; in the setting of resurgence of fevers, restarted on IV Vanc on 06/18->. Continue Vancomycin oral Mild protein-calorie malnutrition 06/04/2015 04/11/2017 Overview: Nutrition following. Ice chips only per beside swallow evaluation. Advanced to popcicle and applesauce 07/19 A/P: Tolerating TF via corpak at goal. Continue TF at current rate, monitor labs. Speech evaluation today Ischemia of hand 06/01/2015 06/05/2015 Overview: Radial a line removed- good doppler signals Rooke mittens placed Heparin infusion for goal pTT 45-55. Ischemia of lower extremity 06/01/201505/13 Overview: Left lower extremity ischemia, has regained DP/PT doppler signals, but calf muscles remains somewhat tense. A/P: CKs normalizing, will stop following CK levels at this time. Vascular surgery signing off, appreciate assistance. 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 Radial art line was in LUE. Art line removed and arterial duplex showed radial artery thrombosis with patent ulnar artery. Pt now with strong pulse in L radial artery. Thrombocytopenia 06/01/2015 06/08/2015 Overview: Required massive transfusion after OR, placed on VA ECMO. Likely consumptive coagulopathy, however PF4 antibody sent given recent initiation of heparin IV. A/P: -Appears to be resolving, platelets 98,000 today. Cardiac insufficiency following cardiac surgery 05/30/2015 06/15/2015 Overview: Severe RV, arrived from OR on iflolan and Epi. iFlolan weaned off A/P: Off epi and iFlolan. Open chest wound 05/30/2015 06/11/2015 Overview: S/p Lung Tx A/P: Dressing intact, continue ATBX while chest is open. Possible closure today Volume overload 05/30/2015 09/02/2015 Overview: + fluid balance due to multiple transfusions and volume replacement for shock in the early post op period. A/P: - 1.9 L/24hr. Continue diuresis, monitor UOP and labs. Personal history of ECMO 05/30/2015 015 Overview: VV ECMO on 05/30, Transitioned to VA ECMO 05/31. VA ECMO weaned 06/03, back on VV ECMO Decannulated on 06/15. Stress hyperglycemia 05/30/2015 06/11/2015 Overview: S/P Lung Tx A/P: Stress hyperglycemia exacerbated by surgery and pressors. RHI infusion for glycemic control. Shock liver - hepatic insufficiency 05/30/2015 06/05/2015 Overview: Markedly elevated LFTs, persistent coagulopathy and bleeding despite near- continuous trasnfusion of blood products. Also recurrent hypoglycemia requiring D50 boluses and D10W infusion. A/P: LFTs downtrending. 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 Progressively hypoxemic after arrival to ICU despite maximal MV support with lung protective ventilation and inhaled epoprostenol. NMB, inverted I:E ratio, high PEEP, low Vt with permissive hypercapnia only helped transiently. VV ECMO placed. Optimize vent settings, BPH, pain control, VV ECMO. Worsening lung compliance d/t hypervolemia (pulm edema) and/ or PGD. Continues on iFlolan. Switched to VA ECMO but maintaining very low Vt plus high PEEP. 06/03 Washout with VA ECMO weaned. VV ECMO initiated. S/p ECMO decannulation 06/15. S/p trach 06/19. Tolerated ~>11hrs on 07/06, but CXR with increased atelectasis following. A/P: CXR with bilateral opacities. Tolerating TC ATC. Continue TC, BPH, pain control, OOB. Consumption coagulopathy 05/29/2015 015 Overview: S/P Lung Transplant. Severe coagulopathic bleeding intraop and immediately postop. Received multiple blood products - plts, cryoppt, FFP and prbcs. Also rewarming for postop hypothermia. A/P: 4u pRBC and 2u platelets distribution coordinator to OR. PF4 antibody negative Chest remains open. Hypotension 05/29/2015 06/15/2015 Overview: Post Lung Tx. Severely vasoplegic intraop and immediately postop requiring multiple inopressors. Received methylene blue bolus intraop. Arrived ICU on epi, norepi, vasopressin and phenylephrine was added in ICU to maintain MAP >60mmHg. Wean for MAP 65 or greater. A/P: Off epi. Maintain MAPs 65-75. Acute blood loss anemia 05/29/2015 09/02/20 15 Overview: H/H remains low but stable. 07/10: H/H 6.6/21--transfused 1 unit 07/11: Transfused for 6.8/21.3 A/P: Monitor H/H, transfuse prn. Acute postoperative pain 05/29/2015 015 Overview: Post op lung Tx A/P: Dilaudid and acetaminophen prn for pain Immunosuppressed status 05/29/2015 09/02/20 15 Overview: S/p b/l lung transplant on 05/29/2015 -immunosuppression and antiimicrobial prophylaxis as per Transplant Pulmonology. -Cont Tac/MMF/Pred. 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 BP has been on the lower side. Oxygen requirement increased to 3L from 2 L Plan: - Will get repeat Echo with bubble study (last one from January 2015). - Place a PA cath and continue to diurese while monitoring her right heart pressures. - Will need IV lasix-received 80 IV lasix on 04/20 and 100 IV lasix on 04/21 - Continue spironolactone. JAMES (acute kidney injury) 04/21/20152014 Overview: Baseline Cr 0.9 (04/09) -> Cr up to 2.4. A/P: JAMES is likely 2/2 ATN given hypotension and hemorrhage. Balance volume repletion with diuresis --> Cr continues to downtrend 1.92 -->1.37 today. Nephrology following - Maintain MAP 65 or greater, avoid nephrotoxic agents. Continue Lasix drip Hyponatremia with excess extracellular fluid vol ume 04/21/2015 06/02/2015 Overview: Likely hypervolemic hyponatremia. Na improved form 126 to 130 this am. Patient is already on torsemide, spironolactone and metolazone at home. Plan: - Continue to diurese as kidney function allows. 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 - O2 requirements as needed (uses 2L NC at home at night). - Continue home O2 - Patient was seen by lung transplant team. Tests required include: Quantitative perfusion scan (done) Gastric emptying study, esophageal manometry and 24hr pH study (ordered) Dental consultation (will need to call ) Social Work (on board) Iron deficiency anemia 01/25/2013 7 Overview: Menstruating female with iron deficiency Cardiomegaly 01/25/2013 09/02/2015 Overview: -- RV enlargement due to PH Exertional dyspnea 01/25/2013 09/02/2015 Mediastinal adenopathy 01/25/2013 5 Hilar adenopathy 01/25/2013 08/21/2015 Overview: Noted on imaging- mother with a history of Sarcoid Could be 2/2 to chronic VTE and pHTN Lung nodules 01/25/2013 09/02/2015 Overview: Noted on imaging Follow Anticoagulation management encounter 01/25/2013 01/26/2013 SUMMARY 01/24/2013 02/02/2013 Overview: This is a 17 year old female with no significant PMH other than migraine and minimal allergies who developed significant SOB within the past 2 months, this progressed to the point where she was unable to walk up 2 flights of stairs and had mild chest pressure with activty. This worsened on a recent trip to [place] where she was on a 6 hour plane ride leading to a near syncopal episode. She presented ot her PCP for fatigue and was found to have anemia, elevated WBC count and on echo a elevated RVSP and dilated RV. She was sent for CT at her local Ed where she was found to have 2 small PE's. Patient sent for further evaluation. At admission upon review of her Ct there is no PE noted, she does however have significant cardiomegaly, increase RVSP and right atrial dilatation, will need to work up cause of PAH PAH (pulmonary artery hypertension) 01/24/2013 08/21/2015 Overview: Found to have elevated RVSP on echo with RV dilatation. ? Sarcoid as she has a family hx as well as polyarthralgia and fatigue - now with hilar lymphadenopathy RHC revealing PA HTN. 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 as angio was suggestive of multiple PEs small and chronic Plan: Further Remodulin titration as an out-patient q weekly, now on 7.5 ng/kg/min PET scan for VALERIA in the chest complete 02/07 Night sweats 01/24/2013 08/21/2015 Overview: Unclear etiology- Awaiting further PAH workup and Rheum w/u is neg so far documented as of this encounter (statuses as of 05/18/2022) [facility] History of Past illness Narrative* Problem Noted Date Resolved Date Abnormality of gait 12/24/2015 04/11/2017 Ascites 07/13/2015 08/21/2015 Overview: Abdominal distension 07/09 KUB: air in stomach, repeat on 07/11: no dilated loops of bowel 07/11: US abdomen + ascites 07/13 Paracentesis ~ 2L straw colored fluid A/P: Abdomen soft, distended. No c/o abd. fullness. Monitor. Seizure 06/22/2015 08/21/2015 Overview: 06/22/2015 0230 Sudden new onset seizures - with generalized rhythmic contractions of all extremities plus facial twitching. Treated lorazepam and midazolam. Stat head CT negative for bleed. No acute metabolic changes on ABG. Concern for withdrawal from opioids - had been on high dose fentanyl infusion for 3 weeks -infusion d'tabitha on 06/18/15. Neuro consulted and continuous EEG monitoring ordered. Cont vEEG showing mild diffuse encephalopathy but no epileptiform form activity. A/P:: No seizure activity since 06/22. Keppra discontinued per ALD. Abdominal distension 06/15/2015 06/16/2015 Overview: TF held. KUB pending. Fever 06/08/2015 08/21/2015 Overview: S/p CT chest/abd 06/18, which showed RLL collapse, with findings suggestive of necrotic PNA, and scattered upper lobe opacities; moderate ascites, cholelithiasis and gallbladder sludging without cholecystitis. Remains afebrile. No leukocytosis. - Urine cx (06/07), neg; Bld cx (06/11) x2 - NGTD - One blood culture (06/06) grew lactobacillus - Bld/UA cx drawn (06/16) - neg - BAL cx (06/20): smear shows GPC in clusters - Bld cx (06/21) NGTD Plan: - Meropenem stopped on 06/22 - Cont PO Vancomycin through hospitalization - F/u BAL cx (06/20) - Smear currently shows GPC in clusters but no organisms on culture; in the setting of resurgence of fevers, restarted on IV Vanc on 06/18->. Continue Vancomycin oral Mild protein-calorie malnutrition 06/04/2015 04/11/2017 Overview: Nutrition following. Ice chips only per beside swallow evaluation. Advanced to popcicle and applesauce 07/19 A/P: Tolerating TF via corpak at goal. Continue TF at current rate, monitor labs. Speech evaluation today Ischemia of hand 06/01/2015 06/05/2015 Overview: Radial a line removed- good doppler signals Rooke mittens placed Heparin infusion for goal pTT 45-55. Ischemia of lower extremity 06/01/201505/13 Overview: Left lower extremity ischemia, has regained DP/PT doppler signals, but calf muscles remains somewhat tense. A/P: CKs normalizing, will stop following CK levels at this time. Vascular surgery signing off, appreciate assistance. 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 Radial art line was in LUE. Art line removed and arterial duplex showed radial artery thrombosis with patent ulnar artery. Pt now with strong pulse in L radial artery. Thrombocytopenia 06/01/2015 06/08/2015 Overview: Required massive transfusion after OR, placed on VA ECMO. Likely consumptive coagulopathy, however PF4 antibody sent given recent initiation of heparin IV. A/P: -Appears to be resolving, platelets 98,000 today. Cardiac insufficiency following cardiac surgery 05/30/2015 06/15/2015 Overview: Severe RV, arrived from OR on iflolan and Epi. iFlolan weaned off A/P: Off epi and iFlolan. Open chest wound 05/30/2015 06/11/2015 Overview: S/p Lung Tx A/P: Dressing intact, continue ATBX while chest is open. Possible closure today Volume overload 05/30/2015 09/02/2015 Overview: + fluid balance due to multiple transfusions and volume replacement for shock in the early post op period. A/P: - 1.9 L/24hr. Continue diuresis, monitor UOP and labs. Personal history of ECMO 05/30/2015 015 Overview: VV ECMO on 05/30, Transitioned to VA ECMO 05/31. VA ECMO weaned 06/03, back on VV ECMO Decannulated on 06/15. Stress hyperglycemia 05/30/2015 06/11/2015 Overview: S/P Lung Tx A/P: Stress hyperglycemia exacerbated by surgery and pressors. RHI infusion for glycemic control. Shock liver - hepatic insufficiency 05/30/2015 06/05/2015 Overview: Markedly elevated LFTs, persistent coagulopathy and bleeding despite near- continuous trasnfusion of blood products. Also recurrent hypoglycemia requiring D50 boluses and D10W infusion. A/P: LFTs downtrending. 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 Progressively hypoxemic after arrival to ICU despite maximal MV support with lung protective ventilation and inhaled epoprostenol. NMB, inverted I:E ratio, high PEEP, low Vt with permissive hypercapnia only helped transiently. VV ECMO placed. Optimize vent settings, BPH, pain control, VV ECMO. Worsening lung compliance d/t hypervolemia (pulm edema) and/ or PGD. Continues on iFlolan. Switched to VA ECMO but maintaining very low Vt plus high PEEP. 06/03 Washout with VA ECMO weaned. VV ECMO initiated. S/p ECMO decannulation 06/15. S/p trach 06/19. Tolerated ~>11hrs on 07/06, but CXR with increased atelectasis following. A/P: CXR with bilateral opacities. Tolerating TC ATC. Continue TC, BPH, pain control, OOB. Consumption coagulopathy 05/29/2015 015 Overview: S/P Lung Transplant. Severe coagulopathic bleeding intraop and immediately postop. Received multiple blood products - plts, cryoppt, FFP and prbcs. Also rewarming for postop hypothermia. A/P: 4u pRBC and 2u platelets distribution coordinator to OR. PF4 antibody negative Chest remains open. Hypotension 05/29/2015 06/15/2015 Overview: Post Lung Tx. Severely vasoplegic intraop and immediately postop requiring multiple inopressors. Received methylene blue bolus intraop. Arrived ICU on epi, norepi, vasopressin and phenylephrine was added in ICU to maintain MAP >60mmHg. Wean for MAP 65 or greater. A/P: Off epi. Maintain MAPs 65-75. Acute blood loss anemia 05/29/2015 09/02/20 15 Overview: H/H remains low but stable. 07/10: H/H 6.6/21--transfused 1 unit 07/11: Transfused for 6.8.3 A/P: Monitor H/H, transfuse prn. Acute postoperative pain 05/29/2015 015 Overview: Post op lung Tx A/P: Dilaudid and acetaminophen prn for pain Immunosuppressed status 05/29/2015 09/02/20 15 Overview: S/p b/l lung transplant on 05/29/2015 -immunosuppression and antiimicrobial prophylaxis as per Transplant Pulmonology. -Cont Tac/MMF/Pred. 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 BP has been on the lower side. Oxygen requirement increased to 3L from 2 L Plan: - Will get repeat Echo with bubble study (last one from January 2015). - Place a PA cath and continue to diurese while monitoring her right heart pressures. - Will need IV lasix-received 80 IV lasix on 04/20 and 100 IV lasix on 04/21 - Continue spironolactone. JAMES (acute kidney injury) 04/21/20152014 Overview: Baseline Cr 0.9 (04/09) -> Cr up to 2.4. A/P: JAMES is likely 2/2 ATN given hypotension and hemorrhage. Balance volume repletion with diuresis --> Cr continues to downtrend 1.92 -->1.37 today. Nephrology following - Maintain MAP 65 or greater, avoid nephrotoxic agents. Continue Lasix drip Hyponatremia with excess extracellular fluid vol ume 04/21/2015 06/02/2015 Overview: Likely hypervolemic hyponatremia. Na improved form 126 to 130 this am. Patient is already on torsemide, spironolactone and metolazone at home. Plan: - Continue to diurese as kidney function allows. 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 - O2 requirements as needed (uses 2L NC at home at night). - Continue home O2 - Patient was seen by lung transplant team. Tests required include: Quantitative perfusion scan (done) Gastric emptying study, esophageal manometry and 24hr pH study (ordered) Dental consultation (will need to call ) Social Work (on board) Iron deficiency anemia 01/25/2013 7 Overview: Menstruating female with iron deficiency Cardiomegaly 01/25/2013 09/02/2015 Overview: -- RV enlargement due to PH Exertional dyspnea 01/25/2013 09/02/2015 Mediastinal adenopathy 01/25/2013 5 Hilar adenopathy 01/25/2013 08/21/2015 Overview: Noted on imaging- mother with a history of Sarcoid Could be 2/2 to chronic VTE and pHTN Lung nodules 01/25/2013 09/02/2015 Overview: Noted on imaging Follow Anticoagulation management encounter 01/25/2013 01/26/2013 SUMMARY 01/24/2013 02/02/2013 Overview: This is a 17 year old female with no significant PMH other than migraine and minimal allergies who developed significant SOB within the past 2 months, this progressed to the point where she was unable to walk up 2 flights of stairs and had mild chest pressure with activty. This worsened on a recent trip to [place] where she was on a 6 hour plane ride leading to a near syncopal episode. She presented ot her PCP for fatigue and was found to have anemia, elevated WBC count and on echo a elevated RVSP and dilated RV. She was sent for CT at her local Ed where she was found to have 2 small PE's. Patient sent for further evaluation. At admission upon review of her Ct there is no PE noted, she does however have significant cardiomegaly, increase RVSP and right atrial dilatation, will need to work up cause of PAH PAH (pulmonary artery hypertension) 01/24/2013 08/21/2015 Overview: Found to have elevated RVSP on echo with RV dilatation. ? Sarcoid as she has a family hx as well as polyarthralgia and fatigue - now with hilar lymphadenopathy RHC revealing PA HTN. 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 as angio was suggestive of multiple PEs small and chronic Plan: Further Remodulin titration as an out-patient q weekly, now on 7.5 ng/kg/min PET scan for VALERIA in the chest complete 02/07 Night sweats 01/24/2013 08/21/2015 Overview: Unclear etiology- Awaiting further PAH workup and Rheum w/u is neg so far documented as of this encounter (statuses as of 05/27/2022) [facility] History of Past illness Narrative* Problem Noted Date Resolved Date Abnormality of gait 12/24/2015 04/11/2017 Ascites 07/13/2015 08/21/2015 Overview: Abdominal distension 07/09 KUB: air in stomach, repeat on 07/11: no dilated loops of bowel 07/11: US abdomen + ascites 07/13 Paracentesis ~ 2L straw colored fluid A/P: Abdomen soft, distended. No c/o abd. fullness. Monitor. Seizure 06/22/2015 08/21/2015 Overview: 06/22/2015 0230 Sudden new onset seizures - with generalized rhythmic contractions of all extremities plus facial twitching. Treated lorazepam and midazolam. Stat head CT negative for bleed. No acute metabolic changes on ABG. Concern for withdrawal from opioids - had been on high dose fentanyl infusion for 3 weeks -infusion d'tabitha on 06/18/15. Neuro consulted and continuous EEG monitoring ordered. Cont vEEG showing mild diffuse encephalopathy but no epileptiform form activity. A/P:: No seizure activity since 06/22. Keppra discontinued per ALD. Abdominal distension 06/15/2015 06/16/2015 Overview: TF held. KUB pending. Fever 06/08/2015 08/21/2015 Overview: S/p CT chest/abd 06/18, which showed RLL collapse, with findings suggestive of necrotic PNA, and scattered upper lobe opacities; moderate ascites, cholelithiasis and gallbladder sludging without cholecystitis. Remains afebrile. No leukocytosis. - Urine cx (06/07), neg; Bld cx (06/11) x2 - NGTD - One blood culture (06/06) grew lactobacillus - Bld/UA cx drawn (06/16) - neg - BAL cx (06/20): smear shows GPC in clusters - Bld cx (06/21) NGTD Plan: - Meropenem stopped on 06/22 - Cont PO Vancomycin through hospitalization - F/u BAL cx (06/20) - Smear currently shows GPC in clusters but no organisms on culture; in the setting of resurgence of fevers, restarted on IV Vanc on 06/18->. Continue Vancomycin oral Mild protein-calorie malnutrition 06/04/2015 04/11/2017 Overview: Nutrition following. Ice chips only per beside swallow evaluation. Advanced to popcicle and applesauce 07/19 A/P: Tolerating TF via corpak at goal. Continue TF at current rate, monitor labs. Speech evaluation today Ischemia of hand 06/01/2015 06/05/2015 Overview: Radial a line removed- good doppler signals Rooke mittens placed Heparin infusion for goal pTT 45-55. Ischemia of lower extremity 06/01/201505/13 Overview: Left lower extremity ischemia, has regained DP/PT doppler signals, but calf muscles remains somewhat tense. A/P: CKs normalizing, will stop following CK levels at this time. Vascular surgery signing off, appreciate assistance. 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 Radial art line was in LUE. Art line removed and arterial duplex showed radial artery thrombosis with patent ulnar artery. Pt now with strong pulse in L radial artery. Thrombocytopenia 06/01/2015 06/08/2015 Overview: Required massive transfusion after OR, placed on VA ECMO. Likely consumptive coagulopathy, however PF4 antibody sent given recent initiation of heparin IV. A/P: -Appears to be resolving, platelets 98,000 today. Cardiac insufficiency following cardiac surgery 05/30/2015 06/15/2015 Overview: Severe RV, arrived from OR on iflolan and Epi. iFlolan weaned off A/P: Off epi and iFlolan. Open chest wound 05/30/2015 06/11/2015 Overview: S/p Lung Tx A/P: Dressing intact, continue ATBX while chest is open. Possible closure today Volume overload 05/30/2015 09/02/2015 Overview: + fluid balance due to multiple transfusions and volume replacement for shock in the early post op period. A/P: - 1.9 L/24hr. Continue diuresis, monitor UOP and labs. Personal history of ECMO 05/30/2015 015 Overview: VV ECMO on 05/30, Transitioned to VA ECMO 05/31. VA ECMO weaned 06/03, back on VV ECMO Decannulated on 06/15. Stress hyperglycemia 05/30/2015 06/11/2015 Overview: S/P Lung Tx A/P: Stress hyperglycemia exacerbated by surgery and pressors. RHI infusion for glycemic control. Shock liver - hepatic insufficiency 05/30/2015 06/05/2015 Overview: Markedly elevated LFTs, persistent coagulopathy and bleeding despite near- continuous trasnfusion of blood products. Also recurrent hypoglycemia requiring D50 boluses and D10W infusion. A/P: LFTs downtrending. 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 Progressively hypoxemic after arrival to ICU despite maximal MV support with lung protective ventilation and inhaled epoprostenol. NMB, inverted I:E ratio, high PEEP, low Vt with permissive hypercapnia only helped transiently. VV ECMO placed. Optimize vent settings, BPH, pain control, VV ECMO. Worsening lung compliance d/t hypervolemia (pulm edema) and/ or PGD. Continues on iFlolan. Switched to VA ECMO but maintaining very low Vt plus high PEEP. 06/03 Washout with VA ECMO weaned. VV ECMO initiated. S/p ECMO decannulation 06/15. S/p trach 06/19. Tolerated ~>11hrs on 07/06, but CXR with increased atelectasis following. A/P: CXR with bilateral opacities. Tolerating TC ATC. Continue TC, BPH, pain control, OOB. Consumption coagulopathy 05/29/2015 015 Overview: S/P Lung Transplant. Severe coagulopathic bleeding intraop and immediately postop. Received multiple blood products - plts, cryoppt, FFP and prbcs. Also rewarming for postop hypothermia. A/P: 4u pRBC and 2u platelets distribution coordinator to OR. PF4 antibody negative Chest remains open. Hypotension 05/29/2015 06/15/2015 Overview: Post Lung Tx. Severely vasoplegic intraop and immediately postop requiring multiple inopressors. Received methylene blue bolus intraop. Arrived ICU on epi, norepi, vasopressin and phenylephrine was added in ICU to maintain MAP >60mmHg. Wean for MAP 65 or greater. A/P: Off epi. Maintain MAPs 65-75. Acute blood loss anemia 05/29/2015 09/02/20 15 Overview: H/H remains low but stable. 07/10: H/H 6.6--transfused 1 unit 07/11: Transfused for 6.8.3 A/P: Monitor H/H, transfuse prn. Acute postoperative pain 05/29/2015 015 Overview: Post op lung Tx A/P: Dilaudid and acetaminophen prn for pain Immunosuppressed status 05/29/2015 09/02/20 Overview: S/p b/l lung transplant on 05/29/2015 -immunosuppression and antiimicrobial prophylaxis as per Transplant Pulmonology. -Cont Tac/MMF/Pred. 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 BP has been on the lower side. Oxygen requirement increased to 3L from 2 L Plan: - Will get repeat Echo with bubble study (last one from January 2015). - Place a PA cath and continue to diurese while monitoring her right heart pressures. - Will need IV lasix-received 80 IV lasix on 04/20 and 100 IV lasix on 04/21 - Continue spironolactone. JAMES (acute kidney injury) 04/21/20152014 Overview: Baseline Cr 0.9 (04/09) -> Cr up to 2.4. A/P: JAMES is likely 2/2 ATN given hypotension and hemorrhage. Balance volume repletion with diuresis --> Cr continues to downtrend 1.92 -->1.37 today. Nephrology following - Maintain MAP 65 or greater, avoid nephrotoxic agents. Continue Lasix drip Hyponatremia with excess extracellular fluid vol ume 04/21/2015 06/02/2015 Overview: Likely hypervolemic hyponatremia. Na improved form 126 to 130 this am. Patient is already on torsemide, spironolactone and metolazone at home. Plan: - Continue to diurese as kidney function allows. Palpitations 12/24/2014 08/21/2015 Hypoxemia 07/28/2014 08/21/2015 Vocal cord paralysis 03/31/2014 09/02/2015 CTEPH (chronic thromboembolic pulmonary hyperten zve) 04/29/2013 06/02/2015 Overview: - Will continue home meds including Bosentan, Tadalafil and Treprostinil. - O2 requirements as needed (uses 2L NC at home at night). - Continue home O2 - Patient was seen by lung transplant team. Tests required include: Quantitative perfusion scan (done) Gastric emptying study, esophageal manometry and 24hr pH study (ordered) Dental consultation (will need to call ) Social Work (on board) Iron deficiency anemia 01/25/2013 7 Overview: Menstruating female with iron deficiency Cardiomegaly 01/25/2013 09/02/2015 Overview: -- RV enlargement due to PH Exertional dyspnea 01/25/2013 09/02/2015 Mediastinal adenopathy 01/25/2013 5 Hilar adenopathy 01/25/2013 08/21/2015 Overview: Noted on imaging- mother with a history of Sarcoid Could be 2/2 to chronic VTE and pHTN Lung nodules 01/25/2013 09/02/2015 Overview: Noted on imaging Follow Anticoagulation management encounter 01/25/2013 01/26/2013 SUMMARY 01/24/2013 02/02/2013 Overview: This is a 17 year old female with no significant PMH other than migraine and minimal allergies who developed significant SOB within the past 2 months, this progressed to the point where she was unable to walk up 2 flights of stairs and had mild chest pressure with activty. This worsened on a recent trip to [place] where she was on a 6 hour plane ride leading to a near syncopal episode. She presented ot her PCP for fatigue and was found to have anemia, elevated WBC count and on echo a elevated RVSP and dilated RV. She was sent for CT at her local Ed where she was found to have 2 small PE's. Patient sent for further evaluation. At admission upon review of her Ct there is no PE noted, she does however have significant cardiomegaly, increase RVSP and right atrial dilatation, will need to work up cause of PAH PAH (pulmonary artery hypertension) 01/24/2013 08/21/2015 Overview: Found to have elevated RVSP on echo with RV dilatation. ? Sarcoid as she has a family hx as well as polyarthralgia and fatigue - now with hilar lymphadenopathy RHC revealing PA HTN. 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 as angio was suggestive of multiple PEs small and chronic Plan: Further Remodulin titration as an out-patient q weekly, now on 7.5 ng/kg/min PET scan for VALERIA in the chest complete 02/07 Night sweats 01/24/2013 08/21/2015 Overview: Unclear etiology- Awaiting further PAH workup and Rheum w/u is neg so far documented as of this encounter (statuses as of 06/08/2022) [facility]04-14-2016 History of Past illness Narrative* Problem Noted Date Resolved Date Abnormality of gait 12/24/2015 04/11/2017 Ascites 07/13/2015 08/21/2015 Overview: Abdominal distension 07/09 KUB: air in stomach, repeat on 07/11: no dilated loops of bowel 07/11: US abdomen + ascites 07/13 Paracentesis ~ 2L straw colored fluid A/P: Abdomen soft, distended. No c/o abd. fullness. Monitor. Seizure 06/22/2015 08/21/2015 Overview: 06/22/2015 0230 Sudden new onset seizures - with generalized rhythmic contractions of all extremities plus facial twitching. Treated lorazepam and midazolam. Stat head CT negative for bleed. No acute metabolic changes on ABG. Concern for withdrawal from opioids - had been on high dose fentanyl infusion for 3 weeks -infusion d'tabitha on 06/18/15. Neuro consulted and continuous EEG monitoring ordered. Cont vEEG showing mild diffuse encephalopathy but no epileptiform form activity. A/P:: No seizure activity since 06/22. Keppra discontinued per ALD. Abdominal distension 06/15/2015 06/16/2015 Overview: TF held. KUB pending. Fever 06/08/2015 08/21/2015 Overview: S/p CT chest/abd 06/18, which showed RLL collapse, with findings suggestive of necrotic PNA, and scattered upper lobe opacities; moderate ascites, cholelithiasis and gallbladder sludging without cholecystitis. Remains afebrile. No leukocytosis. - Urine cx (06/07), neg; Bld cx (06/11) x2 - NGTD - One blood culture (06/06) grew lactobacillus - Bld/UA cx drawn (06/16) - neg - BAL cx (06/20): smear shows GPC in clusters - Bld cx (06/21) NGTD Plan: - Meropenem stopped on 06/22 - Cont PO Vancomycin through hospitalization - F/u BAL cx (06/20) - Smear currently shows GPC in clusters but no organisms on culture; in the setting of resurgence of fevers, restarted on IV Vanc on 06/18->. Continue Vancomycin oral Mild protein-calorie malnutrition 06/04/2015 04/11/2017 Overview: Nutrition following. Ice chips only per beside swallow evaluation. Advanced to popcicle and applesauce 07/19 A/P: Tolerating TF via corpak at goal. Continue TF at current rate, monitor labs. Speech evaluation today Ischemia of hand 06/01/2015 06/05/2015 Overview: Radial a line removed- good doppler signals Dexter ndiaye placed Heparin infusion for goal pTT 45-55. Ischemia of lower extremity 06/01/201505/13 Overview: Left lower extremity ischemia, has regained DP/PT doppler signals, but calf muscles remains somewhat tense. A/P: CKs normalizing, will stop following CK levels at this time. Vascular surgery signing off, appreciate assistance. 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 Radial art line was in LUE. Art line removed and arterial duplex showed radial artery thrombosis with patent ulnar artery. Pt now with strong pulse in L radial artery. Thrombocytopenia 06/01/2015 06/08/2015 Overview: Required massive transfusion after OR, placed on VA ECMO. Likely consumptive coagulopathy, however PF4 antibody sent given recent initiation of heparin IV. A/P: -Appears to be resolving, platelets 98,000 today. Cardiac insufficiency following cardiac surgery 05/30/2015 06/15/2015 Overview: Severe RV, arrived from OR on iflolan and Epi. iFlolan weaned off A/P: Off epi and iFlolan. Open chest wound 05/30/2015 06/11/2015 Overview: S/p Lung Tx A/P: Dressing intact, continue ATBX while chest is open. Possible closure today Volume overload 05/30/2015 09/02/2015 Overview: + fluid balance due to multiple transfusions and volume replacement for shock in the early post op period. A/P: - 1.9 L/24hr. Continue diuresis, monitor UOP and labs. Personal history of ECMO 05/30/2015 015 Overview: VV ECMO on 05/30, Transitioned to VA ECMO 05/31. VA ECMO weaned 06/03, back on VV ECMO Decannulated on 06/15. Stress hyperglycemia 05/30/2015 06/11/2015 Overview: S/P Lung Tx A/P: Stress hyperglycemia exacerbated by surgery and pressors. RHI infusion for glycemic control. Shock liver - hepatic insufficiency 05/30/2015 06/05/2015 Overview: Markedly elevated LFTs, persistent coagulopathy and bleeding despite near- continuous trasnfusion of blood products. Also recurrent hypoglycemia requiring D50 boluses and D10W infusion. A/P: LFTs downtrending. 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 Progressively hypoxemic after arrival to ICU despite maximal MV support with lung protective ventilation and inhaled epoprostenol. NMB, inverted I:E ratio, high PEEP, low Vt with permissive hypercapnia only helped transiently. VV ECMO placed. Optimize vent settings, BPH, pain control, VV ECMO. Worsening lung compliance d/t hypervolemia (pulm edema) and/ or PGD. Continues on iFlolan. Switched to VA ECMO but maintaining very low Vt plus high PEEP. 06/03 Washout with VA ECMO weaned. VV ECMO initiated. S/p ECMO decannulation 06/15. S/p trach 06/19. Tolerated ~>11hrs on 07/06, but CXR with increased atelectasis following. A/P: CXR with bilateral opacities. Tolerating TC ATC. Continue TC, BPH, pain control, OOB. Consumption coagulopathy 05/29/2015 015 Overview: S/P Lung Transplant. Severe coagulopathic bleeding intraop and immediately postop. Received multiple blood products - plts, cryoppt, FFP and prbcs. Also rewarming for postop hypothermia. A/P: 4u pRBC and 2u platelets distribution coordinator to OR. PF4 antibody negative Chest remains open. Hypotension 05/29/2015 06/15/2015 Overview: Post Lung Tx. Severely vasoplegic intraop and immediately postop requiring multiple inopressors. Received methylene blue bolus intraop. Arrived ICU on epi, norepi, vasopressin and phenylephrine was added in ICU to maintain MAP >60mmHg. Wean for MAP 65 or greater. A/P: Off epi. Maintain MAPs 65-75. Acute blood loss anemia 05/29/2015 09/02/20 15 Overview: H/H remains low but stable. 07/10: H/H 6.6--transfused 1 unit 07/11: Transfused for 6.8.3 A/P: Monitor H/H, transfuse prn. Acute postoperative pain 05/29/2015 015 Overview: Post op lung Tx A/P: Dilaudid and acetaminophen prn for pain Immunosuppressed status 05/29/2015 09/02/20 Overview: S/p b/l lung transplant on 05/29/2015 -immunosuppression and antiimicrobial prophylaxis as per Transplant Pulmonology. -Cont Tac/MMF/Pred. 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 BP has been on the lower side. Oxygen requirement increased to 3L from 2 L Plan: - Will get repeat Echo with bubble study (last one from January 2015). - Place a PA cath and continue to diurese while monitoring her right heart pressures. - Will need IV lasix-received 80 IV lasix on 04/20 and 100 IV lasix on 04/21 - Continue spironolactone. JAMES (acute kidney injury) 04/21/20152014 Overview: Baseline Cr 0.9 (04/09) -> Cr up to 2.4. A/P: JAMES is likely 2/2 ATN given hypotension and hemorrhage. Balance volume repletion with diuresis --> Cr continues to downtrend 1.92 -->1.37 today. Nephrology following - Maintain MAP 65 or greater, avoid nephrotoxic agents. Continue Lasix drip Hyponatremia with excess extracellular fluid vol ume 04/21/2015 06/02/2015 Overview: Likely hypervolemic hyponatremia. Na improved form 126 to 130 this am. Patient is already on torsemide, spironolactone and metolazone at home. Plan: - Continue to diurese as kidney function allows. 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 - O2 requirements as needed (uses 2L NC at home at night). - Continue home O2 - Patient was seen by lung transplant team. Tests required include: Quantitative perfusion scan (done) Gastric emptying study, esophageal manometry and 24hr pH study (ordered) Dental consultation (will need to call ) Social Work (on board) Iron deficiency anemia 01/25/2013 7 Overview: Menstruating female with iron deficiency Cardiomegaly 01/25/2013 09/02/2015 Overview: -- RV enlargement due to PH Exertional dyspnea 01/25/2013 09/02/2015 Mediastinal adenopathy 01/25/2013 5 Hilar adenopathy 01/25/2013 08/21/2015 Overview: Noted on imaging- mother with a history of Sarcoid Could be 2/2 to chronic VTE and pHTN Lung nodules 01/25/2013 09/02/2015 Overview: Noted on imaging Follow Anticoagulation management encounter 01/25/2013 01/26/2013 SUMMARY 01/24/2013 02/02/2013 Overview: This is a 17 year old female with no significant PMH other than migraine and minimal allergies who developed significant SOB within the past 2 months, this progressed to the point where she was unable to walk up 2 flights of stairs and had mild chest pressure with activty. This worsened on a recent trip to [place] where she was on a 6 hour plane ride leading to a near syncopal episode. She presented ot her PCP for fatigue and was found to have anemia, elevated WBC count and on echo a elevated RVSP and dilated RV. She was sent for CT at her local Ed where she was found to have 2 small PE's. Patient sent for further evaluation. At admission upon review of her Ct there is no PE noted, she does however have significant cardiomegaly, increase RVSP and right atrial dilatation, will need to work up cause of PAH PAH (pulmonary artery hypertension) 01/24/2013 08/21/2015 Overview: Found to have elevated RVSP on echo with RV dilatation. ? Sarcoid as she has a family hx as well as polyarthralgia and fatigue - now with hilar lymphadenopathy RHC revealing PA HTN. 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 as angio was suggestive of multiple PEs small and chronic Plan: Further Remodulin titration as an out-patient q weekly, now on 7.5 ng/kg/min PET scan for VALERIA in the chest complete 02/07 Night sweats 01/24/2013 08/21/2015 Overview: Unclear etiology- Awaiting further PAH workup and Rheum w/u is neg so far documented as of this encounter (statuses as of 06/27/2022) [facility]2016 History of Past illness Narrative* Problem Noted Date Resolved Date Abnormality of gait 12/24/2015 04/11/2017 Ascites 07/13/2015 08/21/2015 Overview: Abdominal distension 07/09 KUB: air in stomach, repeat on 07/11: no dilated loops of bowel 07/11: US abdomen + ascites 07/13 Paracentesis ~ 2L straw colored fluid A/P: Abdomen soft, distended. No c/o abd. fullness. Monitor. Seizure 06/22/2015 08/21/2015 Overview: 06/22/2015 0230 Sudden new onset seizures - with generalized rhythmic contractions of all extremities plus facial twitching. Treated lorazepam and midazolam. Stat head CT negative for bleed. No acute metabolic changes on ABG. Concern for withdrawal from opioids - had been on high dose fentanyl infusion for 3 weeks -infusion d'tabitha on 06/18/15. Neuro consulted and continuous EEG monitoring ordered. Cont vEEG showing mild diffuse encephalopathy but no epileptiform form activity. A/P:: No seizure activity since 06/22. Keppra discontinued per ALD. Abdominal distension 06/15/2015 06/16/2015 Overview: TF held. KUB pending. Fever 06/08/2015 08/21/2015 Overview: S/p CT chest/abd 06/18, which showed RLL collapse, with findings suggestive of necrotic PNA, and scattered upper lobe opacities; moderate ascites, cholelithiasis and gallbladder sludging without cholecystitis. Remains afebrile. No leukocytosis. - Urine cx (06/07), neg; Bld cx (06/11) x2 - NGTD - One blood culture (06/06) grew lactobacillus - Bld/UA cx drawn (06/16) - neg - BAL cx (06/20): smear shows GPC in clusters - Bld cx (06/21) NGTD Plan: - Meropenem stopped on 06/22 - Cont PO Vancomycin through hospitalization - F/u BAL cx (06/20) - Smear currently shows GPC in clusters but no organisms on culture; in the setting of resurgence of fevers, restarted on IV Vanc on 06/18->. Continue Vancomycin oral Mild protein-calorie malnutrition 06/04/2015 04/11/2017 Overview: Nutrition following. Ice chips only per beside swallow evaluation. Advanced to popcicle and applesauce 07/19 A/P: Tolerating TF via corpak at goal. Continue TF at current rate, monitor labs. Speech evaluation today Ischemia of hand 06/01/2015 06/05/2015 Overview: Radial a line removed- good doppler signals Nancyoke senthil placed Heparin infusion for goal pTT 45-55. Ischemia of lower extremity 06/01/201505/13 Overview: Left lower extremity ischemia, has regained DP/PT doppler signals, but calf muscles remains somewhat tense. A/P: CKs normalizing, will stop following CK levels at this time. Vascular surgery signing off, appreciate assistance. 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 Radial art line was in LUE. Art line removed and arterial duplex showed radial artery thrombosis with patent ulnar artery. Pt now with strong pulse in L radial artery. Thrombocytopenia 06/01/2015 06/08/2015 Overview: Required massive transfusion after OR, placed on VA ECMO. Likely consumptive coagulopathy, however PF4 antibody sent given recent initiation of heparin IV. A/P: -Appears to be resolving, platelets 98,000 today. Cardiac insufficiency following cardiac surgery 05/30/2015 06/15/2015 Overview: Severe RV, arrived from OR on iflolan and Epi. iFlolan weaned off A/P: Off epi and iFlolan. Open chest wound 05/30/2015 06/11/2015 Overview: S/p Lung Tx A/P: Dressing intact, continue ATBX while chest is open. Possible closure today Volume overload 05/30/2015 09/02/2015 Overview: + fluid balance due to multiple transfusions and volume replacement for shock in the early post op period. A/P: - 1.9 L/24hr. Continue diuresis, monitor UOP and labs. Personal history of ECMO 05/30/2015 015 Overview: VV ECMO on 05/30, Transitioned to VA ECMO 05/31. VA ECMO weaned 06/03, back on VV ECMO Decannulated on 06/15. Stress hyperglycemia 05/30/2015 06/11/2015 Overview: S/P Lung Tx A/P: Stress hyperglycemia exacerbated by surgery and pressors. RHI infusion for glycemic control. Shock liver - hepatic insufficiency 05/30/2015 06/05/2015 Overview: Markedly elevated LFTs, persistent coagulopathy and bleeding despite near- continuous trasnfusion of blood products. Also recurrent hypoglycemia requiring D50 boluses and D10W infusion. A/P: LFTs downtrending. 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 Progressively hypoxemic after arrival to ICU despite maximal MV support with lung protective ventilation and inhaled epoprostenol. NMB, inverted I:E ratio, high PEEP, low Vt with permissive hypercapnia only helped transiently. VV ECMO placed. Optimize vent settings, BPH, pain control, VV ECMO. Worsening lung compliance d/t hypervolemia (pulm edema) and/ or PGD. Continues on iFlolan. Switched to VA ECMO but maintaining very low Vt plus high PEEP. 06/03 Washout with VA ECMO weaned. VV ECMO initiated. S/p ECMO decannulation 06/15. S/p trach 06/19. Tolerated ~>11hrs on 07/06, but CXR with increased atelectasis following. A/P: CXR with bilateral opacities. Tolerating TC ATC. Continue TC, BPH, pain control, OOB. Consumption coagulopathy 05/29/2015 015 Overview: S/P Lung Transplant. Severe coagulopathic bleeding intraop and immediately postop. Received multiple blood products - plts, cryoppt, FFP and prbcs. Also rewarming for postop hypothermia. A/P: 4u pRBC and 2u platelets distribution coordinator to OR. PF4 antibody negative Chest remains open. Hypotension 05/29/2015 06/15/2015 Overview: Post Lung Tx. Severely vasoplegic intraop and immediately postop requiring multiple inopressors. Received methylene blue bolus intraop. Arrived ICU on epi, norepi, vasopressin and phenylephrine was added in ICU to maintain MAP >60mmHg. Wean for MAP 65 or greater. A/P: Off epi. Maintain MAPs 65-75. Acute blood loss anemia 05/29/2015 09/02/20 15 Overview: H/H remains low but stable. 07/10: H/H 6.6/--transfused 1 unit 07/11: Transfused for 6.8.3 A/P: Monitor H/H, transfuse prn. Acute postoperative pain 05/29/2015 015 Overview: Post op lung Tx A/P: Dilaudid and acetaminophen prn for pain Immunosuppressed status 05/29/2015 09/02/20 15 Overview: S/p b/l lung transplant on 05/29/2015 -immunosuppression and antiimicrobial prophylaxis as per Transplant Pulmonology. -Cont Tac/MMF/Pred. 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 BP has been on the lower side. Oxygen requirement increased to 3L from 2 L Plan: - Will get repeat Echo with bubble study (last one from January 2015). - Place a PA cath and continue to diurese while monitoring her right heart pressures. - Will need IV lasix-received 80 IV lasix on 04/20 and 100 IV lasix on 04/21 - Continue spironolactone. JAMES (acute kidney injury) 04/21/20152014 Overview: Baseline Cr 0.9 (04/09) -> Cr up to 2.4. A/P: JAMES is likely 2/2 ATN given hypotension and hemorrhage. Balance volume repletion with diuresis --> Cr continues to downtrend 1.92 -->1.37 today. Nephrology following - Maintain MAP 65 or greater, avoid nephrotoxic agents. Continue Lasix drip Hyponatremia with excess extracellular fluid vol ume 04/21/2015 06/02/2015 Overview: Likely hypervolemic hyponatremia. Na improved form 126 to 130 this am. Patient is already on torsemide, spironolactone and metolazone at home. Plan: - Continue to diurese as kidney function allows. 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 - O2 requirements as needed (uses 2L NC at home at night). - Continue home O2 - Patient was seen by lung transplant team. Tests required include: Quantitative perfusion scan (done) Gastric emptying study, esophageal manometry and 24hr pH study (ordered) Dental consultation (will need to call ) Social Work (on board) Iron deficiency anemia 01/25/2013 7 Overview: Menstruating female with iron deficiency Cardiomegaly 01/25/2013 09/02/2015 Overview: -- RV enlargement due to PH Exertional dyspnea 01/25/2013 09/02/2015 Mediastinal adenopathy 01/25/2013 5 Hilar adenopathy 01/25/2013 08/21/2015 Overview: Noted on imaging- mother with a history of Sarcoid Could be 2/2 to chronic VTE and pHTN Lung nodules 01/25/2013 09/02/2015 Overview: Noted on imaging Follow Anticoagulation management encounter 01/25/2013 01/26/2013 SUMMARY 01/24/2013 02/02/2013 Overview: This is a 17 year old female with no significant PMH other than migraine and minimal allergies who developed significant SOB within the past 2 months, this progressed to the point where she was unable to walk up 2 flights of stairs and had mild chest pressure with activty. This worsened on a recent trip to [place] where she was on a 6 hour plane ride leading to a near syncopal episode. She presented ot her PCP for fatigue and was found to have anemia, elevated WBC count and on echo a elevated RVSP and dilated RV. She was sent for CT at her local Ed where she was found to have 2 small PE's. Patient sent for further evaluation. At admission upon review of her Ct there is no PE noted, she does however have significant cardiomegaly, increase RVSP and right atrial dilatation, will need to work up cause of PAH PAH (pulmonary artery hypertension) 01/24/2013 08/21/2015 Overview: Found to have elevated RVSP on echo with RV dilatation. ? Sarcoid as she has a family hx as well as polyarthralgia and fatigue - now with hilar lymphadenopathy RHC revealing PA HTN. 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 as angio was suggestive of multiple PEs small and chronic Plan: Further Remodulin titration as an out-patient q weekly, now on 7.5 ng/kg/min PET scan for VALERIA in the chest complete 02/07 Night sweats 01/24/2013 08/21/2015 Overview: Unclear etiology- Awaiting further PAH workup and Rheum w/u is neg so far documented as of this encounter (statuses as of 06/28/2022) [facility] History of Past illness Narrative* Problem Noted Date Resolved Date Abnormality of gait 12/24/2015 04/11/2017 Ascites 07/13/2015 08/21/2015 Overview: Abdominal distension 07/09 KUB: air in stomach, repeat on 07/11: no dilated loops of bowel 07/11: US abdomen + ascites 07/13 Paracentesis ~ 2L straw colored fluid A/P: Abdomen soft, distended. No c/o abd. fullness. Monitor. Seizure 06/22/2015 08/21/2015 Overview: 06/22/2015 0230 Sudden new onset seizures - with generalized rhythmic contractions of all extremities plus facial twitching. Treated lorazepam and midazolam. Stat head CT negative for bleed. No acute metabolic changes on ABG. Concern for withdrawal from opioids - had been on high dose fentanyl infusion for 3 weeks -infusion d'tabitha on 06/18/15. Neuro consulted and continuous EEG monitoring ordered. Cont vEEG showing mild diffuse encephalopathy but no epileptiform form activity. A/P:: No seizure activity since 06/22. Keppra discontinued per ALD. Abdominal distension 06/15/2015 06/16/2015 Overview: TF held. KUB pending. Fever 06/08/2015 08/21/2015 Overview: S/p CT chest/abd 06/18, which showed RLL collapse, with findings suggestive of necrotic PNA, and scattered upper lobe opacities; moderate ascites, cholelithiasis and gallbladder sludging without cholecystitis. Remains afebrile. No leukocytosis. - Urine cx (06/07), neg; Bld cx (06/11) x2 - NGTD - One blood culture (06/06) grew lactobacillus - Bld/UA cx drawn (06/16) - neg - BAL cx (06/20): smear shows GPC in clusters - Bld cx (06/21) NGTD Plan: - Meropenem stopped on 06/22 - Cont PO Vancomycin through hospitalization - F/u BAL cx (06/20) - Smear currently shows GPC in clusters but no organisms on culture; in the setting of resurgence of fevers, restarted on IV Vanc on 06/18->. Continue Vancomycin oral Mild protein-calorie malnutrition 06/04/2015 04/11/2017 Overview: Nutrition following. Ice chips only per beside swallow evaluation. Advanced to popcicle and applesauce 07/19 A/P: Tolerating TF via corpak at goal. Continue TF at current rate, monitor labs. Speech evaluation today Ischemia of hand 06/01/2015 06/05/2015 Overview: Radial a line removed- good doppler signals Rooke mittens placed Heparin infusion for goal pTT 45-55. Ischemia of lower extremity 06/01/2015/04/2015 Overview: Left lower extremity ischemia, has regained DP/PT doppler signals, but calf muscles remains somewhat tense. A/P: CKs normalizing, will stop following CK levels at this time. Vascular surgery signing off, appreciate assistance. 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 Radial art line was in LUE. Art line removed and arterial duplex showed radial artery thrombosis with patent ulnar artery. Pt now with strong pulse in L radial artery. Thrombocytopenia 06/01/2015 06/08/2015 Overview: Required massive transfusion after OR, placed on [facility] ECMO. Likely consumptive coagulopathy, however PF4 antibody sent given recent initiation of heparin IV. A/P: -Appears to be resolving, platelets 98,000 today. Cardiac insufficiency following cardiac surgery 05/30/2015 06/15/2015 Overview: Severe RV, arrived from OR on iflolan and Epi. iFlolan weaned off A/P: Off epi and iFlolan. Open chest wound 05/30/2015 06/11/2015 Overview: S/p Lung Tx A/P: Dressing intact, continue ATBX while chest is open. Possible closure today Volume overload 05/30/2015 09/02/2015 Overview: + fluid balance due to multiple transfusions and volume replacement for shock in the early post op period. A/P: - 1.9 L/24hr. Continue diuresis, monitor UOP and labs. Personal history of ECMO 05/30/2015 015 Overview: VV ECMO on 05/30, Transitioned to VA ECMO 05/31. VA ECMO weaned 06/03, back on VV ECMO Decannulated on 06/15. Stress hyperglycemia 05/30/2015 06/11/2015 Overview: S/P Lung Tx A/P: Stress hyperglycemia exacerbated by surgery and pressors. RHI infusion for glycemic control. Shock liver - hepatic insufficiency 05/30/2015 06/05/2015 Overview: Markedly elevated LFTs, persistent coagulopathy and bleeding despite near- continuous trasnfusion of blood products. Also recurrent hypoglycemia requiring D50 boluses and D10W infusion. A/P: LFTs downtrending. 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 Progressively hypoxemic after arrival to ICU despite maximal MV support with lung protective ventilation and inhaled epoprostenol. NMB, inverted I:E ratio, high PEEP, low Vt with permissive hypercapnia only helped transiently. VV ECMO placed. Optimize vent settings, BPH, pain control, VV ECMO. Worsening lung compliance d/t hypervolemia (pulm edema) and/ or PGD. Continues on iFlolan. Switched to VA ECMO but maintaining very low Vt plus high PEEP. 06/03 Washout with VA ECMO weaned. VV ECMO initiated. S/p ECMO decannulation 06/15. S/p trach 06/19. Tolerated ~>11hrs on 07/06, but CXR with increased atelectasis following. A/P: CXR with bilateral opacities. Tolerating TC ATC. Continue TC, BPH, pain control, OOB. Consumption coagulopathy 05/29/2015 015 Overview: S/P Lung Transplant. Severe coagulopathic bleeding intraop and immediately postop. Received multiple blood products - plts, cryoppt, FFP and prbcs. Also rewarming for postop hypothermia. A/P: 4u pRBC and 2u platelets distribution coordinator to OR. PF4 antibody negative Chest remains open. Hypotension 05/29/2015 06/15/2015 Overview: Post Lung Tx. Severely vasoplegic intraop and immediately postop requiring multiple inopressors. Received methylene blue bolus intraop. Arrived ICU on epi, norepi, vasopressin and phenylephrine was added in ICU to maintain MAP >60mmHg. Wean for MAP 65 or greater. A/P: Off epi. Maintain MAPs 65-75. Acute blood loss anemia 05/29/2015 09/02/20 15 Overview: H/H remains low but stable. 07/10: H/H 6.6/21--transfused 1 unit 07/11: Transfused for 6.8/21.3 A/P: Monitor H/H, transfuse prn. Acute postoperative pain 05/29/2015 015 Overview: Post op lung Tx A/P: Dilaudid and acetaminophen prn for pain Immunosuppressed status 05/29/2015 09/02/20 15 Overview: S/p b/l lung transplant on 05/29/2015 -immunosuppression and antiimicrobial prophylaxis as per Transplant Pulmonology. -Cont Tac/MMF/Pred. 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 BP has been on the lower side. Oxygen requirement increased to 3L from 2 L Plan: - Will get repeat Echo with bubble study (last one from January 2015). - Place a PA cath and continue to diurese while monitoring her right heart pressures. - Will need IV lasix-received 80 IV lasix on 04/20 and 100 IV lasix on 04/21 - Continue spironolactone. JAMES (acute kidney injury) 04/21/20152014 Overview: Baseline Cr 0.9 (04/09) -> Cr up to 2.4. A/P: JAMES is likely 2/2 ATN given hypotension and hemorrhage. Balance volume repletion with diuresis --> Cr continues to downtrend 1.92 -->1.37 today. Nephrology following - Maintain MAP 65 or greater, avoid nephrotoxic agents. Continue Lasix drip Hyponatremia with excess extracellular fluid vol ume 04/21/2015 06/02/2015 Overview: Likely hypervolemic hyponatremia. Na improved form 126 to 130 this am. Patient is already on torsemide, spironolactone and metolazone at home. Plan: - Continue to diurese as kidney function allows. 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 - O2 requirements as needed (uses 2L NC at home at night). - Continue home O2 - Patient was seen by lung transplant team. Tests required include: Quantitative perfusion scan (done) Gastric emptying study, esophageal manometry and 24hr pH study (ordered) Dental consultation (will need to call ) Social Work (on board) Iron deficiency anemia 01/25/2013 7 Overview: Menstruating female with iron deficiency Cardiomegaly 01/25/2013 09/02/2015 Overview: -- RV enlargement due to PH Exertional dyspnea 01/25/2013 09/02/2015 Mediastinal adenopathy 01/25/2013 5 Hilar adenopathy 01/25/2013 08/21/2015 Overview: Noted on imaging- mother with a history of Sarcoid Could be 2/2 to chronic VTE and pHTN Lung nodules 01/25/2013 09/02/2015 Overview: Noted on imaging Follow Anticoagulation management encounter 01/25/2013 01/26/2013 SUMMARY 01/24/2013 02/02/2013 Overview: This is a 17 year old female with no significant PMH other than migraine and minimal allergies who developed significant SOB within the past 2 months, this progressed to the point where she was unable to walk up 2 flights of stairs and had mild chest pressure with activty. This worsened on a recent trip to [place] where she was on a 6 hour plane ride leading to a near syncopal episode. She presented ot her PCP for fatigue and was found to have anemia, elevated WBC count and on echo a elevated RVSP and dilated RV. She was sent for CT at her local Ed where she was found to have 2 small PE's. Patient sent for further evaluation. At admission upon review of her Ct there is no PE noted, she does however have significant cardiomegaly, increase RVSP and right atrial dilatation, will need to work up cause of PAH PAH (pulmonary artery hypertension) 01/24/2013 08/21/2015 Overview: Found to have elevated RVSP on echo with RV dilatation. ? Sarcoid as she has a family hx as well as polyarthralgia and fatigue - now with hilar lymphadenopathy RHC revealing PA HTN. 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 as angio was suggestive of multiple PEs small and chronic Plan: Further Remodulin titration as an out-patient q weekly, now on 7.5 ng/kg/min PET scan for VALERIA in the chest complete 02/07 Night sweats 01/24/2013 08/21/2015 Overview: Unclear etiology- Awaiting further PAH workup and Rheum w/u is neg so far documented as of this encounter (statuses as of 06/28/2022) [facility] History of Past illness Narrative* Problem Noted Date Resolved Date Abnormality of gait 12/24/2015 04/11/2017 Ascites 07/13/2015 08/21/2015 Overview: Abdominal distension 07/09 KUB: air in stomach, repeat on 07/11: no dilated loops of bowel 07/11: US abdomen + ascites 07/13 Paracentesis ~ 2L straw colored fluid A/P: Abdomen soft, distended. No c/o abd. fullness. Monitor. Seizure 06/22/2015 08/21/2015 Overview: 06/22/2015 0230 Sudden new onset seizures - with generalized rhythmic contractions of all extremities plus facial twitching. Treated lorazepam and midazolam. Stat head CT negative for bleed. No acute metabolic changes on ABG. Concern for withdrawal from opioids - had been on high dose fentanyl infusion for 3 weeks -infusion d'tabitha on 06/18/15. Neuro consulted and continuous EEG monitoring ordered. Cont vEEG showing mild diffuse encephalopathy but no epileptiform form activity. A/P:: No seizure activity since 06/22. Keppra discontinued per ALD. Abdominal distension 06/15/2015 06/16/2015 Overview: TF held. KUB pending. Fever 06/08/2015 08/21/2015 Overview: S/p CT chest/abd 06/18, which showed RLL collapse, with findings suggestive of necrotic PNA, and scattered upper lobe opacities; moderate ascites, cholelithiasis and gallbladder sludging without cholecystitis. Remains afebrile. No leukocytosis. - Urine cx (06/07), neg; Bld cx (06/11) x2 - NGTD - One blood culture (06/06) grew lactobacillus - Bld/UA cx drawn (06/16) - neg - BAL cx (06/20): smear shows GPC in clusters - Bld cx (06/21) NGTD Plan: - Meropenem stopped on 06/22 - Cont PO Vancomycin through hospitalization - F/u BAL cx (06/20) - Smear currently shows GPC in clusters but no organisms on culture; in the setting of resurgence of fevers, restarted on IV Vanc on 06/18->. Continue Vancomycin oral Mild protein-calorie malnutrition 06/04/2015 04/11/2017 Overview: Nutrition following. Ice chips only per beside swallow evaluation. Advanced to popcicle and applesauce 07/19 A/P: Tolerating TF via corpak at goal. Continue TF at current rate, monitor labs. Speech evaluation today Ischemia of hand 06/01/2015 06/05/2015 Overview: Radial a line removed- good doppler signals Dexter ndiaye placed Heparin infusion for goal pTT 45-55. Ischemia of lower extremity 06/01/201505/13 Overview: Left lower extremity ischemia, has regained DP/PT doppler signals, but calf muscles remains somewhat tense. A/P: CKs normalizing, will stop following CK levels at this time. Vascular surgery signing off, appreciate assistance. 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 Radial art line was in LUE. Art line removed and arterial duplex showed radial artery thrombosis with patent ulnar artery. Pt now with strong pulse in L radial artery. Thrombocytopenia 06/01/2015 06/08/2015 Overview: Required massive transfusion after OR, placed on VA ECMO. Likely consumptive coagulopathy, however PF4 antibody sent given recent initiation of heparin IV. A/P: -Appears to be resolving, platelets 98,000 today. Cardiac insufficiency following cardiac surgery 05/30/2015 06/15/2015 Overview: Severe RV, arrived from OR on iflolan and Epi. iFlolan weaned off A/P: Off epi and iFlolan. Open chest wound 05/30/2015 06/11/2015 Overview: S/p Lung Tx A/P: Dressing intact, continue ATBX while chest is open. Possible closure today Volume overload 05/30/2015 09/02/2015 Overview: + fluid balance due to multiple transfusions and volume replacement for shock in the early post op period. A/P: - 1.9 L/24hr. Continue diuresis, monitor UOP and labs. Personal history of ECMO 05/30/2015 015 Overview: VV ECMO on 05/30, Transitioned to VA ECMO 05/31. VA ECMO weaned 06/03, back on VV ECMO Decannulated on 06/15. Stress hyperglycemia 05/30/2015 06/11/2015 Overview: S/P Lung Tx A/P: Stress hyperglycemia exacerbated by surgery and pressors. RHI infusion for glycemic control. Shock liver - hepatic insufficiency 05/30/2015 06/05/2015 Overview: Markedly elevated LFTs, persistent coagulopathy and bleeding despite near- continuous trasnfusion of blood products. Also recurrent hypoglycemia requiring D50 boluses and D10W infusion. A/P: LFTs downtrending. 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 Progressively hypoxemic after arrival to ICU despite maximal MV support with lung protective ventilation and inhaled epoprostenol. NMB, inverted I:E ratio, high PEEP, low Vt with permissive hypercapnia only helped transiently. VV ECMO placed. Optimize vent settings, BPH, pain control, VV ECMO. Worsening lung compliance d/t hypervolemia (pulm edema) and/ or PGD. Continues on iFlolan. Switched to VA ECMO but maintaining very low Vt plus high PEEP. 06/03 Washout with VA ECMO weaned. VV ECMO initiated. S/p ECMO decannulation 06/15. S/p trach 06/19. Tolerated ~>11hrs on 07/06, but CXR with increased atelectasis following. A/P: CXR with bilateral opacities. Tolerating TC ATC. Continue TC, BPH, pain control, OOB. Consumption coagulopathy 05/29/201506/06/ 015 Overview: S/P Lung Transplant. Severe coagulopathic bleeding intraop and immediately postop. Received multiple blood products - plts, cryoppt, FFP and prbcs. Also rewarming for postop hypothermia. A/P: 4u pRBC and 2u platelets distribution coordinator to OR. PF4 antibody negative Chest remains open. Hypotension 05/29/2015 06/15/2015 Overview: Post Lung Tx. Severely vasoplegic intraop and immediately postop requiring multiple inopressors. Received methylene blue bolus intraop. Arrived ICU on epi, norepi, vasopressin and phenylephrine was added in ICU to maintain MAP >60mmHg. Wean for MAP 65 or greater. A/P: Off epi. Maintain MAPs 65-75. Acute blood loss anemia 05/29/2015 09/02/20 15 Overview: H/H remains low but stable. 07/10: H/H 6.03/01--transfused 1 unit 07/11: Transfused for .05/01.3 A/P: Monitor H/H, transfuse prn. Acute postoperative pain 05/29/2015 015 Overview: Post op lung Tx A/P: Dilaudid and acetaminophen prn for pain Immunosuppressed status 05/29/2015 09/02/20 15 Overview: S/p b/l lung transplant on 05/29/2015 -immunosuppression and antiimicrobial prophylaxis as per Transplant Pulmonology. -Cont Tac/MMF/Pred. 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 BP has been on the lower side. Oxygen requirement increased to 3L from 2 L Plan: - Will get repeat Echo with bubble study (last one from January 2015). - Place a PA cath and continue to diurese while monitoring her right heart pressures. - Will need IV lasix-received 80 IV lasix on 04/20 and 100 IV lasix on 04/21 - Continue spironolactone. JAMES (acute kidney injury) 04/21/20152014 Overview: Baseline Cr 0.9 (04/09) -> Cr up to 2.4. A/P: JAMES is likely 2/2 ATN given hypotension and hemorrhage. Balance volume repletion with diuresis --> Cr continues to downtrend 1.92 -->1.37 today. Nephrology following - Maintain MAP 65 or greater, avoid nephrotoxic agents. Continue Lasix drip Hyponatremia with excess extracellular fluid vol ume 04/21/2015 06/02/2015 Overview: Likely hypervolemic hyponatremia. Na improved form 126 to 130 this am. Patient is already on torsemide, spironolactone and metolazone at home. Plan: - Continue to diurese as kidney function allows. 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 - O2 requirements as needed (uses 2L NC at home at night). - Continue home O2 - Patient was seen by lung transplant team. Tests required include: Quantitative perfusion scan (done) Gastric emptying study, esophageal manometry and 24hr pH study (ordered) Dental consultation (will need to call ) Social Work (on board) Iron deficiency anemia 01/25/2013 7 Overview: Menstruating female with iron deficiency Cardiomegaly 01/25/2013 09/02/2015 Overview: -- RV enlargement due to PH Exertional dyspnea 01/25/2013 09/02/2015 Mediastinal adenopathy 01/25/2013 5 Hilar adenopathy 01/25/2013 08/21/2015 Overview: Noted on imaging- mother with a history of Sarcoid Could be 2/2 to chronic VTE and pHTN Lung nodules 01/25/2013 09/02/2015 Overview: Noted on imaging Follow Anticoagulation management encounter 01/25/2013 01/26/2013 SUMMARY 01/24/2013 02/02/2013 Overview: This is a 17 year old female with no significant PMH other than migraine and minimal allergies who developed significant SOB within the past 2 months, this progressed to the point where she was unable to walk up 2 flights of stairs and had mild chest pressure with activty. This worsened on a recent trip to [place] where she was on a 6 hour plane ride leading to a near syncopal episode. She presented ot her PCP for fatigue and was found to have anemia, elevated WBC count and on echo a elevated RVSP and dilated RV. She was sent for CT at her local Ed where she was found to have 2 small PE's. Patient sent for further evaluation. At admission upon review of her Ct there is no PE noted, she does however have significant cardiomegaly, increase RVSP and right atrial dilatation, will need to work up cause of PAH PAH (pulmonary artery hypertension) 01/24/2013 08/21/2015 Overview: Found to have elevated RVSP on echo with RV dilatation. ? Sarcoid as she has a family hx as well as polyarthralgia and fatigue - now with hilar lymphadenopathy RHC revealing PA HTN. 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 as angio was suggestive of multiple PEs small and chronic Plan: Further Remodulin titration as an out-patient q weekly, now on 7.5 ng/kg/min PET scan for VALERIA in the chest complete 02/07 Night sweats 01/24/2013 08/21/2015 Overview: Unclear etiology- Awaiting further PAH workup and Rheum w/u is neg so far documented as of this encounter (statuses as of 07/06/2022) [facility] History of Past illness Narrative* Problem Noted Date Resolved Date Abnormality of gait 12/24/2015 04/11/2017 Ascites 07/13/2015 08/21/2015 Overview: Abdominal distension 07/09 KUB: air in stomach, repeat on 07/11: no dilated loops of bowel 07/11: US abdomen + ascites 07/13 Paracentesis ~ 2L straw colored fluid A/P: Abdomen soft, distended. No c/o abd. fullness. Monitor. Seizure 06/22/2015 08/21/2015 Overview: 06/22/2015 0230 Sudden new onset seizures - with generalized rhythmic contractions of all extremities plus facial twitching. Treated lorazepam and midazolam. Stat head CT negative for bleed. No acute metabolic changes on ABG. Concern for withdrawal from opioids - had been on high dose fentanyl infusion for 3 weeks -infusion d'tabitha on 06/18/15. Neuro consulted and continuous EEG monitoring ordered. Cont vEEG showing mild diffuse encephalopathy but no epileptiform form activity. A/P:: No seizure activity since 06/22. Keppra discontinued per ALD. Abdominal distension 06/15/2015 06/16/2015 Overview: TF held. KUB pending. Fever 06/08/2015 08/21/2015 Overview: S/p CT chest/abd 06/18, which showed RLL collapse, with findings suggestive of necrotic PNA, and scattered upper lobe opacities; moderate ascites, cholelithiasis and gallbladder sludging without cholecystitis. Remains afebrile. No leukocytosis. - Urine cx (06/07), neg; Bld cx (06/11) x2 - NGTD - One blood culture (06/06) grew lactobacillus - Bld/UA cx drawn (06/16) - neg - BAL cx (06/20): smear shows GPC in clusters - Bld cx (06/21) NGTD Plan: - Meropenem stopped on 06/22 - Cont PO Vancomycin through hospitalization - F/u BAL cx (06/20) - Smear currently shows GPC in clusters but no organisms on culture; in the setting of resurgence of fevers, restarted on IV Vanc on 06/18->. Continue Vancomycin oral Mild protein-calorie malnutrition 06/04/2015 04/11/2017 Overview: Nutrition following. Ice chips only per beside swallow evaluation. Advanced to popcicle and applesauce 07/19 A/P: Tolerating TF via corpak at goal. Continue TF at current rate, monitor labs. Speech evaluation today Ischemia of hand 06/01/2015 06/05/2015 Overview: Radial a line removed- good doppler signals Rooke mittens placed Heparin infusion for goal pTT 45-55. Ischemia of lower extremity 06/01/201505/13 Overview: Left lower extremity ischemia, has regained DP/PT doppler signals, but calf muscles remains somewhat tense. A/P: CKs normalizing, will stop following CK levels at this time. Vascular surgery signing off, appreciate assistance. 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 Radial art line was in LUE. Art line removed and arterial duplex showed radial artery thrombosis with patent ulnar artery. Pt now with strong pulse in L radial artery. Thrombocytopenia 06/01/2015 06/08/2015 Overview: Required massive transfusion after OR, placed on VA ECMO. Likely consumptive coagulopathy, however PF4 antibody sent given recent initiation of heparin IV. A/P: -Appears to be resolving, platelets 98,000 today. Cardiac insufficiency following cardiac surgery 05/30/2015 06/15/2015 Overview: Severe RV, arrived from OR on iflolan and Epi. iFlolan weaned off A/P: Off epi and iFlolan. Open chest wound 05/30/2015 06/11/2015 Overview: S/p Lung Tx A/P: Dressing intact, continue ATBX while chest is open. Possible closure today Volume overload 05/30/2015 09/02/2015 Overview: + fluid balance due to multiple transfusions and volume replacement for shock in the early post op period. A/P: - 1.9 L/24hr. Continue diuresis, monitor UOP and labs. Personal history of ECMO 05/30/2015 015 Overview: VV ECMO on 05/30, Transitioned to VA ECMO 05/31. VA ECMO weaned 06/03, back on VV ECMO Decannulated on 06/15. Stress hyperglycemia 05/30/2015 06/11/2015 Overview: S/P Lung Tx A/P: Stress hyperglycemia exacerbated by surgery and pressors. RHI infusion for glycemic control. Shock liver - hepatic insufficiency 05/30/2015 06/05/2015 Overview: Markedly elevated LFTs, persistent coagulopathy and bleeding despite near- continuous trasnfusion of blood products. Also recurrent hypoglycemia requiring D50 boluses and D10W infusion. A/P: LFTs downtrending. 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 Progressively hypoxemic after arrival to ICU despite maximal MV support with lung protective ventilation and inhaled epoprostenol. NMB, inverted I:E ratio, high PEEP, low Vt with permissive hypercapnia only helped transiently. VV ECMO placed. Optimize vent settings, BPH, pain control, VV ECMO. Worsening lung compliance d/t hypervolemia (pulm edema) and/ or PGD. Continues on iFlolan. Switched to VA ECMO but maintaining very low Vt plus high PEEP. 06/03 Washout with VA ECMO weaned. VV ECMO initiated. S/p ECMO decannulation 06/15. S/p trach 06/19. Tolerated ~>11hrs on 07/06, but CXR with increased atelectasis following. A/P: CXR with bilateral opacities. Tolerating TC ATC. Continue TC, BPH, pain control, OOB. Consumption coagulopathy 05/29/2015 015 Overview: S/P Lung Transplant. Severe coagulopathic bleeding intraop and immediately postop. Received multiple blood products - plts, cryoppt, FFP and prbcs. Also rewarming for postop hypothermia. A/P: 4u pRBC and 2u platelets distribution coordinator to OR. PF4 antibody negative Chest remains open. Hypotension 05/29/2015 06/15/2015 Overview: Post Lung Tx. Severely vasoplegic intraop and immediately postop requiring multiple inopressors. Received methylene blue bolus intraop. Arrived ICU on epi, norepi, vasopressin and phenylephrine was added in ICU to maintain MAP >60mmHg. Wean for MAP 65 or greater. A/P: Off epi. Maintain MAPs 65-75. Acute blood loss anemia 05/29/2015 09/02/20 15 Overview: H/H remains low but stable. 07/10: H/H 6.03/01--transfused 1 unit 07/11: Transfused for .05/01.3 A/P: Monitor H/H, transfuse prn. Acute postoperative pain 05/29/2015 015 Overview: Post op lung Tx A/P: Dilaudid and acetaminophen prn for pain Immunosuppressed status 05/29/2015 09/02/20 15 Overview: S/p b/l lung transplant on 05/29/2015 -immunosuppression and antiimicrobial prophylaxis as per Transplant Pulmonology. -Cont Tac/MMF/Pred. 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 BP has been on the lower side. Oxygen requirement increased to 3L from 2 L Plan: - Will get repeat Echo with bubble study (last one from January 2015). - Place a PA cath and continue to diurese while monitoring her right heart pressures. - Will need IV lasix-received 80 IV lasix on 04/20 and 100 IV lasix on 04/21 - Continue spironolactone. JAMES (acute kidney injury) 04/21/20152014 Overview: Baseline Cr 0.9 (04/09) -> Cr up to 2.4. A/P: JAMES is likely 2/2 ATN given hypotension and hemorrhage. Balance volume repletion with diuresis --> Cr continues to downtrend 1.92 -->1.37 today. Nephrology following - Maintain MAP 65 or greater, avoid nephrotoxic agents. Continue Lasix drip Hyponatremia with excess extracellular fluid vol ume 04/21/2015 06/02/2015 Overview: Likely hypervolemic hyponatremia. Na improved form 126 to 130 this am. Patient is already on torsemide, spironolactone and metolazone at home. Plan: - Continue to diurese as kidney function allows. 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 - O2 requirements as needed (uses 2L NC at home at night). - Continue home O2 - Patient was seen by lung transplant team. Tests required include: Quantitative perfusion scan (done) Gastric emptying study, esophageal manometry and 24hr pH study (ordered) Dental consultation (will need to call ) Social Work (on board) Iron deficiency anemia 01/25/2013 7 Overview: Menstruating female with iron deficiency Cardiomegaly 01/25/2013 09/02/2015 Overview: -- RV enlargement due to PH Exertional dyspnea 01/25/2013 09/02/2015 Mediastinal adenopathy 01/25/2013 5 Hilar adenopathy 01/25/2013 08/21/2015 Overview: Noted on imaging- mother with a history of Sarcoid Could be 2/2 to chronic VTE and pHTN Lung nodules 01/25/2013 09/02/2015 Overview: Noted on imaging Follow Anticoagulation management encounter 01/25/2013 01/26/2013 SUMMARY 01/24/2013 02/02/2013 Overview: This is a 17 year old female with no significant PMH other than migraine and minimal allergies who developed significant SOB within the past 2 months, this progressed to the point where she was unable to walk up 2 flights of stairs and had mild chest pressure with activty. This worsened on a recent trip to [place] where she was on a 6 hour plane ride leading to a near syncopal episode. She presented ot her PCP for fatigue and was found to have anemia, elevated WBC count and on echo a elevated RVSP and dilated RV. She was sent for CT at her local Ed where she was found to have 2 small PE's. Patient sent for further evaluation. At admission upon review of her Ct there is no PE noted, she does however have significant cardiomegaly, increase RVSP and right atrial dilatation, will need to work up cause of PAH PAH (pulmonary artery hypertension) 01/24/2013 08/21/2015 Overview: Found to have elevated RVSP on echo with RV dilatation. ? Sarcoid as she has a family hx as well as polyarthralgia and fatigue - now with hilar lymphadenopathy RHC revealing PA HTN. 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 as angio was suggestive of multiple PEs small and chronic Plan: Further Remodulin titration as an out-patient q weekly, now on 7.5 ng/kg/min PET scan for VALERIA in the chest complete 02/07 Night sweats 01/24/2013 08/21/2015 Overview: Unclear etiology- Awaiting further PAH workup and Rheum w/u is neg so far documented as of this encounter (statuses as of 07/07/2022) [facility] History of Past illness Narrative* Problem Noted Date Resolved Date Abnormality of gait 12/24/2015 04/11/2017 Ascites 07/13/2015 08/21/2015 Overview: Abdominal distension 07/09 KUB: air in stomach, repeat on 07/11: no dilated loops of bowel 07/11: US abdomen + ascites 07/13 Paracentesis ~ 2L straw colored fluid A/P: Abdomen soft, distended. No c/o abd. fullness. Monitor. Seizure 06/22/2015 08/21/2015 Overview: 06/22/2015 0230 Sudden new onset seizures - with generalized rhythmic contractions of all extremities plus facial twitching. Treated lorazepam and midazolam. Stat head CT negative for bleed. No acute metabolic changes on ABG. Concern for withdrawal from opioids - had been on high dose fentanyl infusion for 3 weeks -infusion d'tabitha on 06/18/15. Neuro consulted and continuous EEG monitoring ordered. Cont vEEG showing mild diffuse encephalopathy but no epileptiform form activity. A/P:: No seizure activity since 06/22. Keppra discontinued per ALD. Abdominal distension 06/15/2015 06/16/2015 Overview: TF held. KUB pending. Fever 06/08/2015 08/21/2015 Overview: S/p CT chest/abd 06/18, which showed RLL collapse, with findings suggestive of necrotic PNA, and scattered upper lobe opacities; moderate ascites, cholelithiasis and gallbladder sludging without cholecystitis. Remains afebrile. No leukocytosis. - Urine cx (06/07), neg; Bld cx (06/11) x2 - NGTD - One blood culture (06/06) grew lactobacillus - Bld/UA cx drawn (06/16) - neg - BAL cx (06/20): smear shows GPC in clusters - Bld cx (06/21) NGTD Plan: - Meropenem stopped on 06/22 - Cont PO Vancomycin through hospitalization - F/u BAL cx (06/20) - Smear currently shows GPC in clusters but no organisms on culture; in the setting of resurgence of fevers, restarted on IV Vanc on 06/18->. Continue Vancomycin oral Mild protein-calorie malnutrition 06/04/2015 04/11/2017 Overview: Nutrition following. Ice chips only per beside swallow evaluation. Advanced to popcicle and applesauce 07/19 A/P: Tolerating TF via corpak at goal. Continue TF at current rate, monitor labs. Speech evaluation today Ischemia of hand 06/01/2015 06/05/2015 Overview: Radial a line removed- good doppler signals Dexter ndiaye placed Heparin infusion for goal pTT 45-55. Ischemia of lower extremity 06/01/201505/13 Overview: Left lower extremity ischemia, has regained DP/PT doppler signals, but calf muscles remains somewhat tense. A/P: CKs normalizing, will stop following CK levels at this time. Vascular surgery signing off, appreciate assistance. 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 Radial art line was in LUE. Art line removed and arterial duplex showed radial artery thrombosis with patent ulnar artery. Pt now with strong pulse in L radial artery. Thrombocytopenia 06/01/2015 06/08/2015 Overview: Required massive transfusion after OR, placed on VA ECMO. Likely consumptive coagulopathy, however PF4 antibody sent given recent initiation of heparin IV. A/P: -Appears to be resolving, platelets 98,000 today. Cardiac insufficiency following cardiac surgery 05/30/2015 06/15/2015 Overview: Severe RV, arrived from OR on iflolan and Epi. iFlolan weaned off A/P: Off epi and iFlolan. Open chest wound 05/30/2015 06/11/2015 Overview: S/p Lung Tx A/P: Dressing intact, continue ATBX while chest is open. Possible closure today Volume overload 05/30/2015 09/02/2015 Overview: + fluid balance due to multiple transfusions and volume replacement for shock in the early post op period. A/P: - 1.9 L/24hr. Continue diuresis, monitor UOP and labs. Personal history of ECMO 05/30/2015 015 Overview: VV ECMO on 05/30, Transitioned to VA ECMO 05/31. VA ECMO weaned 06/03, back on VV ECMO Decannulated on 06/15. Stress hyperglycemia 05/30/2015 06/11/2015 Overview: S/P Lung Tx A/P: Stress hyperglycemia exacerbated by surgery and pressors. RHI infusion for glycemic control. Shock liver - hepatic insufficiency 05/30/2015 06/05/2015 Overview: Markedly elevated LFTs, persistent coagulopathy and bleeding despite near- continuous trasnfusion of blood products. Also recurrent hypoglycemia requiring D50 boluses and D10W infusion. A/P: LFTs downtrending. 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 Progressively hypoxemic after arrival to ICU despite maximal MV support with lung protective ventilation and inhaled epoprostenol. NMB, inverted I:E ratio, high PEEP, low Vt with permissive hypercapnia only helped transiently. VV ECMO placed. Optimize vent settings, BPH, pain control, VV ECMO. Worsening lung compliance d/t hypervolemia (pulm edema) and/ or PGD. Continues on iFlolan. Switched to VA ECMO but maintaining very low Vt plus high PEEP. 06/03 Washout with VA ECMO weaned. VV ECMO initiated. S/p ECMO decannulation 06/15. S/p trach 06/19. Tolerated ~>11hrs on 07/06, but CXR with increased atelectasis following. A/P: CXR with bilateral opacities. Tolerating TC ATC. Continue TC, BPH, pain control, OOB. Consumption coagulopathy 05/29/2015 015 Overview: S/P Lung Transplant. Severe coagulopathic bleeding intraop and immediately postop. Received multiple blood products - plts, cryoppt, FFP and prbcs. Also rewarming for postop hypothermia. A/P: 4u pRBC and 2u platelets distribution coordinator to OR. PF4 antibody negative Chest remains open. Hypotension 05/29/2015 06/15/2015 Overview: Post Lung Tx. Severely vasoplegic intraop and immediately postop requiring multiple inopressors. Received methylene blue bolus intraop. Arrived ICU on epi, norepi, vasopressin and phenylephrine was added in ICU to maintain MAP >60mmHg. Wean for MAP 65 or greater. A/P: Off epi. Maintain MAPs 65-75. Acute blood loss anemia 05/29/2015 09/02/20 15 Overview: H/H remains low but stable. 07/10: H/H 6.6/21--transfused 1 unit 07/11: Transfused for 6.8/.3 A/P: Monitor H/H, transfuse prn. Acute postoperative pain 05/29/2015 015 Overview: Post op lung Tx A/P: Dilaudid and acetaminophen prn for pain Immunosuppressed status 05/29/2015 09/02/20 15 Overview: S/p b/l lung transplant on 05/29/2015 -immunosuppression and antiimicrobial prophylaxis as per Transplant Pulmonology. -Cont Tac/MMF/Pred. 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 BP has been on the lower side. Oxygen requirement increased to 3L from 2 L Plan: - Will get repeat Echo with bubble study (last one from January 2015). - Place a PA cath and continue to diurese while monitoring her right heart pressures. - Will need IV lasix-received 80 IV lasix on 04/20 and 100 IV lasix on 04/21 - Continue spironolactone. JAMES (acute kidney injury) 04/21/20152014 Overview: Baseline Cr 0.9 (04/09) -> Cr up to 2.4. A/P: JAMES is likely 2/2 ATN given hypotension and hemorrhage. Balance volume repletion with diuresis --> Cr continues to downtrend 1.92 -->1.37 today. Nephrology following - Maintain MAP 65 or greater, avoid nephrotoxic agents. Continue Lasix drip Hyponatremia with excess extracellular fluid vol ume 04/21/2015 06/02/2015 Overview: Likely hypervolemic hyponatremia. Na improved form 126 to 130 this am. Patient is already on torsemide, spironolactone and metolazone at home. Plan: - Continue to diurese as kidney function allows. 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 - O2 requirements as needed (uses 2L NC at home at night). - Continue home O2 - Patient was seen by lung transplant team. Tests required include: Quantitative perfusion scan (done) Gastric emptying study, esophageal manometry and 24hr pH study (ordered) Dental consultation (will need to call ) Social Work (on board) Iron deficiency anemia 01/25/2013 7 Overview: Menstruating female with iron deficiency Cardiomegaly 01/25/2013 09/02/2015 Overview: -- RV enlargement due to PH Exertional dyspnea 01/25/2013 09/02/2015 Mediastinal adenopathy 01/25/2013 5 Hilar adenopathy 01/25/2013 08/21/2015 Overview: Noted on imaging- mother with a history of Sarcoid Could be 2/2 to chronic VTE and pHTN Lung nodules 01/25/2013 09/02/2015 Overview: Noted on imaging Follow Anticoagulation management encounter 01/25/2013 01/26/2013 SUMMARY 01/24/2013 02/02/2013 Overview: This is a 17 year old female with no significant PMH other than migraine and minimal allergies who developed significant SOB within the past 2 months, this progressed to the point where she was unable to walk up 2 flights of stairs and had mild chest pressure with activty. This worsened on a recent trip to [place] where she was on a 6 hour plane ride leading to a near syncopal episode. She presented ot her PCP for fatigue and was found to have anemia, elevated WBC count and on echo a elevated RVSP and dilated RV. She was sent for CT at her local Ed where she was found to have 2 small PE's. Patient sent for further evaluation. At admission upon review of her Ct there is no PE noted, she does however have significant cardiomegaly, increase RVSP and right atrial dilatation, will need to work up cause of PAH PAH (pulmonary artery hypertension) 01/24/2013 08/21/2015 Overview: Found to have elevated RVSP on echo with RV dilatation. ? Sarcoid as she has a family hx as well as polyarthralgia and fatigue - now with hilar lymphadenopathy RHC revealing PA HTN. 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 as angio was suggestive of multiple PEs small and chronic Plan: Further Remodulin titration as an out-patient q weekly, now on 7.5 ng/kg/min PET scan for VALERIA in the chest complete 02/07 Night sweats 01/24/2013 08/21/2015 Overview: Unclear etiology- Awaiting further PAH workup and Rheum w/u is neg so far documented as of this encounter (statuses as of 07/12/2022) [facility] History of Past illness Narrative* Problem Noted Date Resolved Date Abnormality of gait 12/24/2015 04/11/2017 Ascites 07/13/2015 08/21/2015 Overview: Abdominal distension 07/09 KUB: air in stomach, repeat on 07/11: no dilated loops of bowel 07/11: US abdomen + ascites 07/13 Paracentesis ~ 2L straw colored fluid A/P: Abdomen soft, distended. No c/o abd. fullness. Monitor. Seizure 06/22/2015 08/21/2015 Overview: 06/22/2015 0230 Sudden new onset seizures - with generalized rhythmic contractions of all extremities plus facial twitching. Treated lorazepam and midazolam. Stat head CT negative for bleed. No acute metabolic changes on ABG. Concern for withdrawal from opioids - had been on high dose fentanyl infusion for 3 weeks -infusion d'tabitha on 06/18/15. Neuro consulted and continuous EEG monitoring ordered. Cont vEEG showing mild diffuse encephalopathy but no epileptiform form activity. A/P:: No seizure activity since 06/22. Keppra discontinued per ALD. Abdominal distension 06/15/2015 06/16/2015 Overview: TF held. KUB pending. Fever 06/08/2015 08/21/2015 Overview: S/p CT chest/abd 06/18, which showed RLL collapse, with findings suggestive of necrotic PNA, and scattered upper lobe opacities; moderate ascites, cholelithiasis and gallbladder sludging without cholecystitis. Remains afebrile. No leukocytosis. - Urine cx (06/07), neg; Bld cx (06/11) x2 - NGTD - One blood culture (06/06) grew lactobacillus - Bld/UA cx drawn (06/16) - neg - BAL cx (06/20): smear shows GPC in clusters - Bld cx (06/21) NGTD Plan: - Meropenem stopped on 10/12 - Cont PO Vancomycin through hospitalization - F/u BAL cx (06/20) - Smear currently shows GPC in clusters but no organisms on culture; in the setting of resurgence of fevers, restarted on IV Vanc on 06/18->. Continue Vancomycin oral Mild protein-calorie malnutrition 06/04/2015 04/11/2017 Overview: Nutrition following. Ice chips only per beside swallow evaluation. Advanced to popcicle and applesauce 07/19 A/P: Tolerating TF via corpak at goal. Continue TF at current rate, monitor labs. Speech evaluation today Ischemia of hand 06/01/2015 06/05/2015 Overview: Radial a line removed- good doppler signals Rooke mitattilas placed Heparin infusion for goal pTT 45-55. Ischemia of lower extremity 06/01/201505/13 Overview: Left lower extremity ischemia, has regained DP/PT doppler signals, but calf muscles remains somewhat tense. A/P: CKs normalizing, will stop following CK levels at this time. Vascular surgery signing off, appreciate assistance. 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 Radial art line was in LUE. Art line removed and arterial duplex showed radial artery thrombosis with patent ulnar artery. Pt now with strong pulse in L radial artery. Thrombocytopenia 06/01/2015 06/08/2015 Overview: Required massive transfusion after OR, placed on VA ECMO. Likely consumptive coagulopathy, however PF4 antibody sent given recent initiation of heparin IV. A/P: -Appears to be resolving, platelets 98,000 today. Cardiac insufficiency following cardiac surgery 05/30/2015 06/15/2015 Overview: Severe RV, arrived from OR on iflolan and Epi. iFlolan weaned off A/P: Off epi and iFlolan. Open chest wound 05/30/2015 06/11/2015 Overview: S/p Lung Tx A/P: Dressing intact, continue ATBX while chest is open. Possible closure today Volume overload 05/30/2015 09/02/2015 Overview: + fluid balance due to multiple transfusions and volume replacement for shock in the early post op period. A/P: - 1.9 L/24hr. Continue diuresis, monitor UOP and labs. Personal history of ECMO 05/30/2015 015 Overview: VV ECMO on 05/30, Transitioned to VA ECMO 05/31. VA ECMO weaned 06/03, back on VV ECMO Decannulated on 06/15. Stress hyperglycemia 05/30/2015 06/11/2015 Overview: S/P Lung Tx A/P: Stress hyperglycemia exacerbated by surgery and pressors. RHI infusion for glycemic control. Shock liver - hepatic insufficiency 05/30/2015 06/05/2015 Overview: Markedly elevated LFTs, persistent coagulopathy and bleeding despite near- continuous trasnfusion of blood products. Also recurrent hypoglycemia requiring D50 boluses and D10W infusion. A/P: LFTs downtrending. 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 Progressively hypoxemic after arrival to ICU despite maximal MV support with lung protective ventilation and inhaled epoprostenol. NMB, inverted I:E ratio, high PEEP, low Vt with permissive hypercapnia only helped transiently. VV ECMO placed. Optimize vent settings, BPH, pain control, VV ECMO. Worsening lung compliance d/t hypervolemia (pulm edema) and/ or PGD. Continues on iFlolan. Switched to VA ECMO but maintaining very low Vt plus high PEEP. 06/03 Washout with VA ECMO weaned. VV ECMO initiated. S/p ECMO decannulation 06/15. S/p trach 06/19. Tolerated ~>11hrs on 07/06, but CXR with increased atelectasis following. A/P: CXR with bilateral opacities. Tolerating TC ATC. Continue TC, BPH, pain control, OOB. Consumption coagulopathy 05/29/2015 015 Overview: S/P Lung Transplant. Severe coagulopathic bleeding intraop and immediately postop. Received multiple blood products - plts, cryoppt, FFP and prbcs. Also rewarming for postop hypothermia. A/P: 4u pRBC and 2u platelets distribution coordinator to OR. PF4 antibody negative Chest remains open. Hypotension 05/29/2015 06/15/2015 Overview: Post Lung Tx. Severely vasoplegic intraop and immediately postop requiring multiple inopressors. Received methylene blue bolus intraop. Arrived ICU on epi, norepi, vasopressin and phenylephrine was added in ICU to maintain MAP >60mmHg. Wean for MAP 65 or greater. A/P: Off epi. Maintain MAPs 65-75. Acute blood loss anemia 05/29/2015 09/02/20 15 Overview: H/H remains low but stable. 07/10: H/H 6.6/21--transfused 1 unit 07/11: Transfused for 6.8.3 A/P: Monitor H/H, transfuse prn. Acute postoperative pain 05/29/2015 015 Overview: Post op lung Tx A/P: Dilaudid and acetaminophen prn for pain Immunosuppressed status 05/29/2015 09/02/20 15 Overview: S/p b/l lung transplant on 05/29/2015 -immunosuppression and antiimicrobial prophylaxis as per Transplant Pulmonology. -Cont Tac/MMF/Pred. 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 BP has been on the lower side. Oxygen requirement increased to 3L from 2 L Plan: - Will get repeat Echo with bubble study (last one from January 2015). - Place a PA cath and continue to diurese while monitoring her right heart pressures. - Will need IV lasix-received 80 IV lasix on 04/20 and 100 IV lasix on 04/21 - Continue spironolactone. JAMES (acute kidney injury) 04/21/20152014 Overview: Baseline Cr 0.9 (04/09) -> Cr up to 2.4. A/P: JAMES is likely 2/2 ATN given hypotension and hemorrhage. Balance volume repletion with diuresis --> Cr continues to downtrend 1.92 -->1.37 today. Nephrology following - Maintain MAP 65 or greater, avoid nephrotoxic agents. Continue Lasix drip Hyponatremia with excess extracellular fluid vol ume 04/21/2015 06/02/2015 Overview: Likely hypervolemic hyponatremia. Na improved form 126 to 130 this am. Patient is already on torsemide, spironolactone and metolazone at home. Plan: - Continue to diurese as kidney function allows. 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 - O2 requirements as needed (uses 2L NC at home at night). - Continue home O2 - Patient was seen by lung transplant team. Tests required include: Quantitative perfusion scan (done) Gastric emptying study, esophageal manometry and 24hr pH study (ordered) Dental consultation (will need to call ) Social Work (on board) Iron deficiency anemia 01/25/2013 7 Overview: Menstruating female with iron deficiency Cardiomegaly 01/25/2013 09/02/2015 Overview: -- RV enlargement due to PH Exertional dyspnea 01/25/2013 09/02/2015 Mediastinal adenopathy 01/25/2013 5 Hilar adenopathy 01/25/2013 08/21/2015 Overview: Noted on imaging- mother with a history of Sarcoid Could be 2/2 to chronic VTE and pHTN Lung nodules 01/25/2013 09/02/2015 Overview: Noted on imaging Follow Anticoagulation management encounter 01/25/2013 01/26/2013 SUMMARY 01/24/2013 02/02/2013 Overview: This is a 17 year old female with no significant PMH other than migraine and minimal allergies who developed significant SOB within the past 2 months, this progressed to the point where she was unable to walk up 2 flights of stairs and had mild chest pressure with activty. This worsened on a recent trip to [place] where she was on a 6 hour plane ride leading to a near syncopal episode. She presented ot her PCP for fatigue and was found to have anemia, elevated WBC count and on echo a elevated RVSP and dilated RV. She was sent for CT at her local Ed where she was found to have 2 small PE's. Patient sent for further evaluation. At admission upon review of her Ct there is no PE noted, she does however have significant cardiomegaly, increase RVSP and right atrial dilatation, will need to work up cause of PAH PAH (pulmonary artery hypertension) 01/24/2013 08/21/2015 Overview: Found to have elevated RVSP on echo with RV dilatation. ? Sarcoid as she has a family hx as well as polyarthralgia and fatigue - now with hilar lymphadenopathy RHC revealing PA HTN. 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 as angio was suggestive of multiple PEs small and chronic Plan: Further Remodulin titration as an out-patient q weekly, now on 7.5 ng/kg/min PET scan for VALERIA in the chest complete 02/07 Night sweats 01/24/2013 08/21/2015 Overview: Unclear etiology- Awaiting further PAH workup and Rheum w/u is neg so far documented as of this encounter (statuses as of 07/13/2022) [facility]04[facility]2016 History of Past illness Narrative* Problem Noted Date Resolved Date Abnormality of gait 12/24/2015 04/11/2017 Ascites 07/13/2015 08/21/2015 Overview: Abdominal distension 07/09 KUB: air in stomach, repeat on 07/11: no dilated loops of bowel 07/11: US abdomen + ascites 07/13 Paracentesis ~ 2L straw colored fluid A/P: Abdomen soft, distended. No c/o abd. fullness. Monitor. Seizure 06/22/2015 08/21/2015 Overview: 06/22/2015 0230 Sudden new onset seizures - with generalized rhythmic contractions of all extremities plus facial twitching. Treated lorazepam and midazolam. Stat head CT negative for bleed. No acute metabolic changes on ABG. Concern for withdrawal from opioids - had been on high dose fentanyl infusion for 3 weeks -infusion d'tabihta on 06/18/15. Neuro consulted and continuous EEG monitoring ordered. Cont vEEG showing mild diffuse encephalopathy but no epileptiform form activity. A/P:: No seizure activity since 06/22. Keppra discontinued per ALD. Abdominal distension 06/15/2015 06/16/2015 Overview: TF held. KUB pending. Fever 06/08/2015 08/21/2015 Overview: S/p CT chest/abd 06/18, which showed RLL collapse, with findings suggestive of necrotic PNA, and scattered upper lobe opacities; moderate ascites, cholelithiasis and gallbladder sludging without cholecystitis. Remains afebrile. No leukocytosis. - Urine cx (06/07), neg; Bld cx (06/11) x2 - NGTD - One blood culture (06/06) grew lactobacillus - Bld/UA cx drawn (06/16) - neg - BAL cx (06/20): smear shows GPC in clusters - Bld cx (06/21) NGTD Plan: - Meropenem stopped on 06/22 - Cont PO Vancomycin through hospitalization - F/u BAL cx (06/20) - Smear currently shows GPC in clusters but no organisms on culture; in the setting of resurgence of fevers, restarted on IV Vanc on 06/18->. Continue Vancomycin oral Mild protein-calorie malnutrition 06/04/2015 04/11/2017 Overview: Nutrition following. Ice chips only per beside swallow evaluation. Advanced to popcicle and applesauce 07/19 A/P: Tolerating TF via corpak at goal. Continue TF at current rate, monitor labs. Speech evaluation today Ischemia of hand 06/01/2015 06/05/2015 Overview: Radial a line removed- good doppler signals Rooke mittens placed Heparin infusion for goal pTT 45-55. Ischemia of lower extremity 06/01/201505/13 Overview: Left lower extremity ischemia, has regained DP/PT doppler signals, but calf muscles remains somewhat tense. A/P: CKs normalizing, will stop following CK levels at this time. Vascular surgery signing off, appreciate assistance. 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 Radial art line was in LUE. Art line removed and arterial duplex showed radial artery thrombosis with patent ulnar artery. Pt now with strong pulse in L radial artery. Thrombocytopenia 06/01/2015 06/08/2015 Overview: Required massive transfusion after OR, placed on VA ECMO. Likely consumptive coagulopathy, however PF4 antibody sent given recent initiation of heparin IV. A/P: -Appears to be resolving, platelets 98,000 today. Cardiac insufficiency following cardiac surgery 05/30/2015 06/15/2015 Overview: Severe RV, arrived from OR on iflolan and Epi. iFlolan weaned off A/P: Off epi and iFlolan. Open chest wound 05/30/2015 06/11/2015 Overview: S/p Lung Tx A/P: Dressing intact, continue ATBX while chest is open. Possible closure today Volume overload 05/30/2015 09/02/2015 Overview: + fluid balance due to multiple transfusions and volume replacement for shock in the early post op period. A/P: - 1.9 L/24hr. Continue diuresis, monitor UOP and labs. Personal history of ECMO 05/30/2015 015 Overview: VV ECMO on 05/30, Transitioned to VA ECMO 05/31. VA ECMO weaned 06/03, back on VV ECMO Decannulated on 06/15. Stress hyperglycemia 05/30/2015 06/11/2015 Overview: S/P Lung Tx A/P: Stress hyperglycemia exacerbated by surgery and pressors. RHI infusion for glycemic control. Shock liver - hepatic insufficiency 05/30/2015 06/05/2015 Overview: Markedly elevated LFTs, persistent coagulopathy and bleeding despite near- continuous trasnfusion of blood products. Also recurrent hypoglycemia requiring D50 boluses and D10W infusion. A/P: LFTs downtrending. 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 Progressively hypoxemic after arrival to ICU despite maximal MV support with lung protective ventilation and inhaled epoprostenol. NMB, inverted I:E ratio, high PEEP, low Vt with permissive hypercapnia only helped transiently. VV ECMO placed. Optimize vent settings, BPH, pain control, VV ECMO. Worsening lung compliance d/t hypervolemia (pulm edema) and/ or PGD. Continues on iFlolan. Switched to VA ECMO but maintaining very low Vt plus high PEEP. 06/03 Washout with VA ECMO weaned. VV ECMO initiated. S/p ECMO decannulation 06/15. S/p trach 06/19. Tolerated ~>11hrs on 07/06, but CXR with increased atelectasis following. A/P: CXR with bilateral opacities. Tolerating TC ATC. Continue TC, BPH, pain control, OOB. Consumption coagulopathy 05/29/2015 015 Overview: S/P Lung Transplant. Severe coagulopathic bleeding intraop and immediately postop. Received multiple blood products - plts, cryoppt, FFP and prbcs. Also rewarming for postop hypothermia. A/P: 4u pRBC and 2u platelets distribution coordinator to OR. PF4 antibody negative Chest remains open. Hypotension 05/29/2015 06/15/2015 Overview: Post Lung Tx. Severely vasoplegic intraop and immediately postop requiring multiple inopressors. Received methylene blue bolus intraop. Arrived ICU on epi, norepi, vasopressin and phenylephrine was added in ICU to maintain MAP >60mmHg. Wean for MAP 65 or greater. A/P: Off epi. Maintain MAPs 65-75. Acute blood loss anemia 05/29/2015 09/02/20 15 Overview: H/H remains low but stable. 07/10: H/H 6.6/21--transfused 1 unit 07/11: Transfused for 6.8/21.3 A/P: Monitor H/H, transfuse prn. Acute postoperative pain 05/29/2015 015 Overview: Post op lung Tx A/P: Dilaudid and acetaminophen prn for pain Immunosuppressed status 05/29/2015 09/02/20 15 Overview: S/p b/l lung transplant on 05/29/2015 -immunosuppression and antiimicrobial prophylaxis as per Transplant Pulmonology. -Cont Tac/MMF/Pred. 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 BP has been on the lower side. Oxygen requirement increased to 3L from 2 L Plan: - Will get repeat Echo with bubble study (last one from January 2015). - Place a PA cath and continue to diurese while monitoring her right heart pressures. - Will need IV lasix-received 80 IV lasix on 04/20 and 100 IV lasix on 04/21 - Continue spironolactone. JAMES (acute kidney injury) 04/21/20152014 Overview: Baseline Cr 0.9 (04/09) -> Cr up to 2.4. A/P: JAMES is likely 2/2 ATN given hypotension and hemorrhage. Balance volume repletion with diuresis --> Cr continues to downtrend 1.92 -->1.37 today. Nephrology following - Maintain MAP 65 or greater, avoid nephrotoxic agents. Continue Lasix drip Hyponatremia with excess extracellular fluid vol ume 04/21/2015 06/02/2015 Overview: Likely hypervolemic hyponatremia. Na improved form 126 to 130 this am. Patient is already on torsemide, spironolactone and metolazone at home. Plan: - Continue to diurese as kidney function allows. 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 - O2 requirements as needed (uses 2L NC at home at night). - Continue home O2 - Patient was seen by lung transplant team. Tests required include: Quantitative perfusion scan (done) Gastric emptying study, esophageal manometry and 24hr pH study (ordered) Dental consultation (will need to call ) Social Work (on board) Iron deficiency anemia 01/25/2013 7 Overview: Menstruating female with iron deficiency Cardiomegaly 01/25/2013 09/02/2015 Overview: -- RV enlargement due to PH Exertional dyspnea 01/25/2013 09/02/2015 Mediastinal adenopathy 01/25/2013 5 Hilar adenopathy 01/25/2013 08/21/2015 Overview: Noted on imaging- mother with a history of Sarcoid Could be 2/2 to chronic VTE and pHTN Lung nodules 01/25/2013 09/02/2015 Overview: Noted on imaging Follow Anticoagulation management encounter 01/25/2013 01/26/2013 SUMMARY 01/24/2013 02/02/2013 Overview: This is a 17 year old female with no significant PMH other than migraine and minimal allergies who developed significant SOB within the past 2 months, this progressed to the point where she was unable to walk up 2 flights of stairs and had mild chest pressure with activty. This worsened on a recent trip to [place] where she was on a 6 hour plane ride leading to a near syncopal episode. She presented ot her PCP for fatigue and was found to have anemia, elevated WBC count and on echo a elevated RVSP and dilated RV. She was sent for CT at her local Ed where she was found to have 2 small PE's. Patient sent for further evaluation. At admission upon review of her Ct there is no PE noted, she does however have significant cardiomegaly, increase RVSP and right atrial dilatation, will need to work up cause of PAH PAH (pulmonary artery hypertension) 01/24/2013 08/21/2015 Overview: Found to have elevated RVSP on echo with RV dilatation. ? Sarcoid as she has a family hx as well as polyarthralgia and fatigue - now with hilar lymphadenopathy RHC revealing PA HTN. 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 as angio was suggestive of multiple PEs small and chronic Plan: Further Remodulin titration as an out-patient q weekly, now on 7.5 ng/kg/min PET scan for VALERIA in the chest complete 02/07 Night sweats 01/24/2013 08/21/2015 Overview: Unclear etiology- Awaiting further PAH workup and Rheum w/u is neg so far documented as of this encounter (statuses as of 07/27/2022) [facility] History of Past illness Narrative* Problem Noted Date Resolved Date Abnormality of gait 12/24/2015 04/11/2017 Ascites 07/13/2015 08/21/2015 Overview: Abdominal distension 07/09 KUB: air in stomach, repeat on 07/11: no dilated loops of bowel 07/11: US abdomen + ascites 07/13 Paracentesis ~ 2L straw colored fluid A/P: Abdomen soft, distended. No c/o abd. fullness. Monitor. Seizure 06/22/2015 08/21/2015 Overview: 06/22/2015 0230 Sudden new onset seizures - with generalized rhythmic contractions of all extremities plus facial twitching. Treated lorazepam and midazolam. Stat head CT negative for bleed. No acute metabolic changes on ABG. Concern for withdrawal from opioids - had been on high dose fentanyl infusion for 3 weeks -infusion d'tabitha on 06/18/15. Neuro consulted and continuous EEG monitoring ordered. Cont vEEG showing mild diffuse encephalopathy but no epileptiform form activity. A/P:: No seizure activity since 06/22. Keppra discontinued per ALD. Abdominal distension 06/15/2015 06/16/2015 Overview: TF held. KUB pending. Fever 06/08/2015 08/21/2015 Overview: S/p CT chest/abd 06/18, which showed RLL collapse, with findings suggestive of necrotic PNA, and scattered upper lobe opacities; moderate ascites, cholelithiasis and gallbladder sludging without cholecystitis. Remains afebrile. No leukocytosis. - Urine cx (06/07), neg; Bld cx (06/11) x2 - NGTD - One blood culture (06/06) grew lactobacillus - Bld/UA cx drawn (06/16) - neg - BAL cx (06/20): smear shows GPC in clusters - Bld cx (06/21) NGTD Plan: - Meropenem stopped on 06/22 - Cont PO Vancomycin through hospitalization - F/u BAL cx (06/20) - Smear currently shows GPC in clusters but no organisms on culture; in the setting of resurgence of fevers, restarted on IV Vanc on 06/18->. Continue Vancomycin oral Mild protein-calorie malnutrition 06/04/2015 04/11/2017 Overview: Nutrition following. Ice chips only per beside swallow evaluation. Advanced to popcicle and applesauce 07/19 A/P: Tolerating TF via corpak at goal. Continue TF at current rate, monitor labs. Speech evaluation today Ischemia of hand 06/01/2015 06/05/2015 Overview: Radial a line removed- good doppler signals Rooke mittens placed Heparin infusion for goal pTT 45-55. Ischemia of lower extremity 06/01/201505/13 Overview: Left lower extremity ischemia, has regained DP/PT doppler signals, but calf muscles remains somewhat tense. A/P: CKs normalizing, will stop following CK levels at this time. Vascular surgery signing off, appreciate assistance. 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 Radial art line was in LUE. Art line removed and arterial duplex showed radial artery thrombosis with patent ulnar artery. Pt now with strong pulse in L radial artery. Thrombocytopenia 06/01/2015 06/08/2015 Overview: Required massive transfusion after OR, placed on VA ECMO. Likely consumptive coagulopathy, however PF4 antibody sent given recent initiation of heparin IV. A/P: -Appears to be resolving, platelets 98,000 today. Cardiac insufficiency following cardiac surgery 05/30/2015 06/15/2015 Overview: Severe RV, arrived from OR on iflolan and Epi. iFlolan weaned off A/P: Off epi and iFlolan. Open chest wound 05/30/2015 06/11/2015 Overview: S/p Lung Tx A/P: Dressing intact, continue ATBX while chest is open. Possible closure today Volume overload 05/30/2015 09/02/2015 Overview: + fluid balance due to multiple transfusions and volume replacement for shock in the early post op period. A/P: - 1.9 L/24hr. Continue diuresis, monitor UOP and labs. Personal history of ECMO 05/30/2015 015 Overview: VV ECMO on 05/30, Transitioned to VA ECMO 05/31. VA ECMO weaned 06/03, back on VV ECMO Decannulated on 06/15. Stress hyperglycemia 05/30/2015 06/11/2015 Overview: S/P Lung Tx A/P: Stress hyperglycemia exacerbated by surgery and pressors. RHI infusion for glycemic control. Shock liver - hepatic insufficiency 05/30/2015 06/05/2015 Overview: Markedly elevated LFTs, persistent coagulopathy and bleeding despite near- continuous trasnfusion of blood products. Also recurrent hypoglycemia requiring D50 boluses and D10W infusion. A/P: LFTs downtrending. 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 Progressively hypoxemic after arrival to ICU despite maximal MV support with lung protective ventilation and inhaled epoprostenol. NMB, inverted I:E ratio, high PEEP, low Vt with permissive hypercapnia only helped transiently. VV ECMO placed. Optimize vent settings, BPH, pain control, VV ECMO. Worsening lung compliance d/t hypervolemia (pulm edema) and/ or PGD. Continues on iFlolan. Switched to VA ECMO but maintaining very low Vt plus high PEEP. 06/03 Washout with VA ECMO weaned. VV ECMO initiated. S/p ECMO decannulation 06/15. S/p trach 06/19. Tolerated ~>11hrs on 07/06, but CXR with increased atelectasis following. A/P: CXR with bilateral opacities. Tolerating TC ATC. Continue TC, BPH, pain control, OOB. Consumption coagulopathy 05/29/2015 015 Overview: S/P Lung Transplant. Severe coagulopathic bleeding intraop and immediately postop. Received multiple blood products - plts, cryoppt, FFP and prbcs. Also rewarming for postop hypothermia. A/P: 4u pRBC and 2u platelets distribution coordinator to OR. PF4 antibody negative Chest remains open. Hypotension 05/29/2015 06/15/2015 Overview: Post Lung Tx. Severely vasoplegic intraop and immediately postop requiring multiple inopressors. Received methylene blue bolus intraop. Arrived ICU on epi, norepi, vasopressin and phenylephrine was added in ICU to maintain MAP >60mmHg. Wean for MAP 65 or greater. A/P: Off epi. Maintain MAPs 65-75. Acute blood loss anemia 05/29/2015 09/02/20 15 Overview: H/H remains low but stable. 07/10: H/H 6.6/21--transfused 1 unit 07/11: Transfused for 6.8/21.3 A/P: Monitor H/H, transfuse prn. Acute postoperative pain 05/29/2015 015 Overview: Post op lung Tx A/P: Dilaudid and acetaminophen prn for pain Immunosuppressed status 05/29/2015 09/02/20 15 Overview: S/p b/l lung transplant on 05/29/2015 -immunosuppression and antiimicrobial prophylaxis as per Transplant Pulmonology. -Cont Tac/MMF/Pred. 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 BP has been on the lower side. Oxygen requirement increased to 3L from 2 L Plan: - Will get repeat Echo with bubble study (last one from January 2015). - Place a PA cath and continue to diurese while monitoring her right heart pressures. - Will need IV lasix-received 80 IV lasix on 04/20 and 100 IV lasix on 04/21 - Continue spironolactone. JAMES (acute kidney injury) 04/21/20152014 Overview: Baseline Cr 0.9 (04/09) -> Cr up to 2.4. A/P: JAMES is likely 2/2 ATN given hypotension and hemorrhage. Balance volume repletion with diuresis --> Cr continues to downtrend 1.92 -->1.37 today. Nephrology following - Maintain MAP 65 or greater, avoid nephrotoxic agents. Continue Lasix drip Hyponatremia with excess extracellular fluid vol ume 04/21/2015 06/02/2015 Overview: Likely hypervolemic hyponatremia. Na improved form 126 to 130 this am. Patient is already on torsemide, spironolactone and metolazone at home. Plan: - Continue to diurese as kidney function allows. 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 - O2 requirements as needed (uses 2L NC at home at night). - Continue home O2 - Patient was seen by lung transplant team. Tests required include: Quantitative perfusion scan (done) Gastric emptying study, esophageal manometry and 24hr pH study (ordered) Dental consultation (will need to call ) Social Work (on board) Iron deficiency anemia 01/25/2013 7 Overview: Menstruating female with iron deficiency Cardiomegaly 01/25/2013 09/02/2015 Overview: -- RV enlargement due to PH Exertional dyspnea 01/25/2013 09/02/2015 Mediastinal adenopathy 01/25/2013 5 Hilar adenopathy 01/25/2013 08/21/2015 Overview: Noted on imaging- mother with a history of Sarcoid Could be 2/2 to chronic VTE and pHTN Lung nodules 01/25/2013 09/02/2015 Overview: Noted on imaging Follow Anticoagulation management encounter 01/25/2013 01/26/2013 SUMMARY 01/24/2013 02/02/2013 Overview: This is a 17 year old female with no significant PMH other than migraine and minimal allergies who developed significant SOB within the past 2 months, this progressed to the point where she was unable to walk up 2 flights of stairs and had mild chest pressure with activty. This worsened on a recent trip to [place] where she was on a 6 hour plane ride leading to a near syncopal episode. She presented ot her PCP for fatigue and was found to have anemia, elevated WBC count and on echo a elevated RVSP and dilated RV. She was sent for CT at her local Ed where she was found to have 2 small PE's. Patient sent for further evaluation. At admission upon review of her Ct there is no PE noted, she does however have significant cardiomegaly, increase RVSP and right atrial dilatation, will need to work up cause of PAH PAH (pulmonary artery hypertension) 01/24/2013 08/21/2015 Overview: Found to have elevated RVSP on echo with RV dilatation. ? Sarcoid as she has a family hx as well as polyarthralgia and fatigue - now with hilar lymphadenopathy RHC revealing PA HTN. 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 as angio was suggestive of multiple PEs small and chronic Plan: Further Remodulin titration as an out-patient q weekly, now on 7.5 ng/kg/min PET scan for VALERIA in the chest complete 02/07 Night sweats 01/24/2013 08/21/2015 Overview: Unclear etiology- Awaiting further PAH workup and Rheum w/u is neg so far documented as of this encounter (statuses as of 08/03/2022) [facility] History of Past illness Narrative* Problem Noted Date Resolved Date Abnormality of gait 12/24/2015 04/11/2017 Ascites 07/13/2015 08/21/2015 Overview: Abdominal distension 07/09 KUB: air in stomach, repeat on 07/11: no dilated loops of bowel 07/11: US abdomen + ascites 07/13 Paracentesis ~ 2L straw colored fluid A/P: Abdomen soft, distended. No c/o abd. fullness. Monitor. Seizure 06/22/2015 08/21/2015 Overview: 06/22/2015 0230 Sudden new onset seizures - with generalized rhythmic contractions of all extremities plus facial twitching. Treated lorazepam and midazolam. Stat head CT negative for bleed. No acute metabolic changes on ABG. Concern for withdrawal from opioids - had been on high dose fentanyl infusion for 3 weeks -infusion d'tabitha on 06/18/15. Neuro consulted and continuous EEG monitoring ordered. Cont vEEG showing mild diffuse encephalopathy but no epileptiform form activity. A/P:: No seizure activity since 06/22. Keppra discontinued per ALD. Abdominal distension 06/15/2015 06/16/2015 Overview: TF held. KUB pending. Fever 06/08/2015 08/21/2015 Overview: S/p CT chest/abd 06/18, which showed RLL collapse, with findings suggestive of necrotic PNA, and scattered upper lobe opacities; moderate ascites, cholelithiasis and gallbladder sludging without cholecystitis. Remains afebrile. No leukocytosis. - Urine cx (06/07), neg; Bld cx (06/11) x2 - NGTD - One blood culture (06/06) grew lactobacillus - Bld/UA cx drawn (06/16) - neg - BAL cx (06/20): smear shows GPC in clusters - Bld cx (06/21) NGTD Plan: - Meropenem stopped on 06/22 - Cont PO Vancomycin through hospitalization - F/u BAL cx (06/20) - Smear currently shows GPC in clusters but no organisms on culture; in the setting of resurgence of fevers, restarted on IV Vanc on 06/18->. Continue Vancomycin oral Mild protein-calorie malnutrition 06/04/2015 04/11/2017 Overview: Nutrition following. Ice chips only per beside swallow evaluation. Advanced to popcicle and applesauce 07/19 A/P: Tolerating TF via corpak at goal. Continue TF at current rate, monitor labs. Speech evaluation today Ischemia of hand 06/01/2015 06/05/2015 Overview: Radial a line removed- good doppler signals Rooke mittens placed Heparin infusion for goal pTT 45-55. Ischemia of lower extremity 06/01/201505/13 Overview: Left lower extremity ischemia, has regained DP/PT doppler signals, but calf muscles remains somewhat tense. A/P: CKs normalizing, will stop following CK levels at this time. Vascular surgery signing off, appreciate assistance. 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 Radial art line was in LUE. Art line removed and arterial duplex showed radial artery thrombosis with patent ulnar artery. Pt now with strong pulse in L radial artery. Thrombocytopenia 06/01/2015 06/08/2015 Overview: Required massive transfusion after OR, placed on [facility] ECMO. Likely consumptive coagulopathy, however PF4 antibody sent given recent initiation of heparin IV. A/P: -Appears to be resolving, platelets 98,000 today. Cardiac insufficiency following cardiac surgery 05/30/2015 06/15/2015 Overview: Severe RV, arrived from OR on iflolan and Epi. iFlolan weaned off A/P: Off epi and iFlolan. Open chest wound 05/30/2015 06/11/2015 Overview: S/p Lung Tx A/P: Dressing intact, continue ATBX while chest is open. Possible closure today Volume overload 05/30/2015 09/02/2015 Overview: + fluid balance due to multiple transfusions and volume replacement for shock in the early post op period. A/P: - 1.9 L/24hr. Continue diuresis, monitor UOP and labs. Personal history of ECMO 05/30/2015 015 Overview: VV ECMO on 05/30, Transitioned to VA ECMO 05/31. VA ECMO weaned 06/03, back on VV ECMO Decannulated on 06/15. Stress hyperglycemia 05/30/2015 06/11/2015 Overview: S/P Lung Tx A/P: Stress hyperglycemia exacerbated by surgery and pressors. RHI infusion for glycemic control. Shock liver - hepatic insufficiency 05/30/2015 06/05/2015 Overview: Markedly elevated LFTs, persistent coagulopathy and bleeding despite near- continuous trasnfusion of blood products. Also recurrent hypoglycemia requiring D50 boluses and D10W infusion. A/P: LFTs downtrending. 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 Progressively hypoxemic after arrival to ICU despite maximal MV support with lung protective ventilation and inhaled epoprostenol. NMB, inverted I:E ratio, high PEEP, low Vt with permissive hypercapnia only helped transiently. VV ECMO placed. Optimize vent settings, BPH, pain control, VV ECMO. Worsening lung compliance d/t hypervolemia (pulm edema) and/ or PGD. Continues on iFlolan. Switched to VA ECMO but maintaining very low Vt plus high PEEP. 06/03 Washout with VA ECMO weaned. VV ECMO initiated. S/p ECMO decannulation 06/15. S/p trach 06/19. Tolerated ~>11hrs on 07/06, but CXR with increased atelectasis following. A/P: CXR with bilateral opacities. Tolerating TC ATC. Continue TC, BPH, pain control, OOB. Consumption coagulopathy 05/29/2015 015 Overview: S/P Lung Transplant. Severe coagulopathic bleeding intraop and immediately postop. Received multiple blood products - plts, cryoppt, FFP and prbcs. Also rewarming for postop hypothermia. A/P: 4u pRBC and 2u platelets distribution coordinator to OR. PF4 antibody negative Chest remains open. Hypotension 05/29/2015 06/15/2015 Overview: Post Lung Tx. Severely vasoplegic intraop and immediately postop requiring multiple inopressors. Received methylene blue bolus intraop. Arrived ICU on epi, norepi, vasopressin and phenylephrine was added in ICU to maintain MAP >60mmHg. Wean for MAP 65 or greater. A/P: Off epi. Maintain MAPs 65-75. Acute blood loss anemia 05/29/2015 09/02/20 15 Overview: H/H remains low but stable. 07/10: H/H 6.6/--transfused 1 unit 07/11: Transfused for 6.8.3 A/P: Monitor H/H, transfuse prn. Acute postoperative pain 05/29/2015 015 Overview: Post op lung Tx A/P: Dilaudid and acetaminophen prn for pain Immunosuppressed status 05/29/2015 09/02/20 Overview: S/p b/l lung transplant on 05/29/2015 -immunosuppression and antiimicrobial prophylaxis as per Transplant Pulmonology. -Cont Tac/MMF/Pred. 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 BP has been on the lower side. Oxygen requirement increased to 3L from 2 L Plan: - Will get repeat Echo with bubble study (last one from January 2015). - Place a PA cath and continue to diurese while monitoring her right heart pressures. - Will need IV lasix-received 80 IV lasix on 04/20 and 100 IV lasix on 04/21 - Continue spironolactone. JAMES (acute kidney injury) 04/21/20152014 Overview: Baseline Cr 0.9 (04/09) -> Cr up to 2.4. A/P: JAMES is likely 2/2 ATN given hypotension and hemorrhage. Balance volume repletion with diuresis --> Cr continues to downtrend 1.92 -->1.37 today. Nephrology following - Maintain MAP 65 or greater, avoid nephrotoxic agents. Continue Lasix drip Hyponatremia with excess extracellular fluid vol ume 04/21/2015 06/02/2015 Overview: Likely hypervolemic hyponatremia. Na improved form 126 to 130 this am. Patient is already on torsemide, spironolactone and metolazone at home. Plan: - Continue to diurese as kidney function allows. 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 - O2 requirements as needed (uses 2L NC at home at night). - Continue home O2 - Patient was seen by lung transplant team. Tests required include: Quantitative perfusion scan (done) Gastric emptying study, esophageal manometry and 24hr pH study (ordered) Dental consultation (will need to call ) Social Work (on board) Iron deficiency anemia 01/25/2013 7 Overview: Menstruating female with iron deficiency Cardiomegaly 01/25/2013 09/02/2015 Overview: -- RV enlargement due to PH Exertional dyspnea 01/25/2013 09/02/2015 Mediastinal adenopathy 01/25/2013 5 Hilar adenopathy 01/25/2013 08/21/2015 Overview: Noted on imaging- mother with a history of Sarcoid Could be 2/2 to chronic VTE and pHTN Lung nodules 01/25/2013 09/02/2015 Overview: Noted on imaging Follow Anticoagulation management encounter 01/25/2013 01/26/2013 SUMMARY 01/24/2013 02/02/2013 Overview: This is a 17 year old female with no significant PMH other than migraine and minimal allergies who developed significant SOB within the past 2 months, this progressed to the point where she was unable to walk up 2 flights of stairs and had mild chest pressure with activty. This worsened on a recent trip to [place] where she was on a 6 hour plane ride leading to a near syncopal episode. She presented ot her PCP for fatigue and was found to have anemia, elevated WBC count and on echo a elevated RVSP and dilated RV. She was sent for CT at her local Ed where she was found to have 2 small PE's. Patient sent for further evaluation. At admission upon review of her Ct there is no PE noted, she does however have significant cardiomegaly, increase RVSP and right atrial dilatation, will need to work up cause of PAH PAH (pulmonary artery hypertension) 01/24/2013 08/21/2015 Overview: Found to have elevated RVSP on echo with RV dilatation. ? Sarcoid as she has a family hx as well as polyarthralgia and fatigue - now with hilar lymphadenopathy RHC revealing PA HTN. 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 as angio was suggestive of multiple PEs small and chronic Plan: Further Remodulin titration as an out-patient q weekly, now on 7.5 ng/kg/min PET scan for VALERIA in the chest complete 02/07 Night sweats 01/24/2013 08/21/2015 Overview: Unclear etiology- Awaiting further PAH workup and Rheum w/u is neg so far documented as of this encounter (statuses as of 08/10/2022) [facility] History of Past illness Narrative* Problem Noted Date Resolved Date Abnormality of gait 12/24/2015 04/11/2017 Ascites 07/13/2015 08/21/2015 Overview: Abdominal distension 07/09 KUB: air in stomach, repeat on 07/11: no dilated loops of bowel 07/11: US abdomen + ascites 07/13 Paracentesis ~ 2L straw colored fluid A/P: Abdomen soft, distended. No c/o abd. fullness. Monitor. Seizure 06/22/2015 08/21/2015 Overview: 06/22/2015 0230 Sudden new onset seizures - with generalized rhythmic contractions of all extremities plus facial twitching. Treated lorazepam and midazolam. Stat head CT negative for bleed. No acute metabolic changes on ABG. Concern for withdrawal from opioids - had been on high dose fentanyl infusion for 3 weeks -infusion d'tabitha on 06/18/15. Neuro consulted and continuous EEG monitoring ordered. Cont vEEG showing mild diffuse encephalopathy but no epileptiform form activity. A/P:: No seizure activity since 06/22. Keppra discontinued per ALD. Abdominal distension 06/15/2015 06/16/2015 Overview: TF held. KUB pending. Fever 06/08/2015 08/21/2015 Overview: S/p CT chest/abd 06/18, which showed RLL collapse, with findings suggestive of necrotic PNA, and scattered upper lobe opacities; moderate ascites, cholelithiasis and gallbladder sludging without cholecystitis. Remains afebrile. No leukocytosis. - Urine cx (06/07), neg; Bld cx (06/11) x2 - NGTD - One blood culture (06/06) grew lactobacillus - Bld/UA cx drawn (06/16) - neg - BAL cx (06/20): smear shows GPC in clusters - Bld cx (06/21) NGTD Plan: - Meropenem stopped on 06/22 - Cont PO Vancomycin through hospitalization - F/u BAL cx (06/20) - Smear currently shows GPC in clusters but no organisms on culture; in the setting of resurgence of fevers, restarted on IV Vanc on 06/18->. Continue Vancomycin oral Mild protein-calorie malnutrition 06/04/2015 04/11/2017 Overview: Nutrition following. Ice chips only per beside swallow evaluation. Advanced to popcicle and applesauce 07/19 A/P: Tolerating TF via corpak at goal. Continue TF at current rate, monitor labs. Speech evaluation today Ischemia of hand 06/01/2015 06/05/2015 Overview: Radial a line removed- good doppler signals Dexter ndiaye placed Heparin infusion for goal pTT 45-55. Ischemia of lower extremity 06/01/201505/13 Overview: Left lower extremity ischemia, has regained DP/PT doppler signals, but calf muscles remains somewhat tense. A/P: CKs normalizing, will stop following CK levels at this time. Vascular surgery signing off, appreciate assistance. 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 Radial art line was in LUE. Art line removed and arterial duplex showed radial artery thrombosis with patent ulnar artery. Pt now with strong pulse in L radial artery. Thrombocytopenia 06/01/2015 06/08/2015 Overview: Required massive transfusion after OR, placed on VA ECMO. Likely consumptive coagulopathy, however PF4 antibody sent given recent initiation of heparin IV. A/P: -Appears to be resolving, platelets 98,000 today. Cardiac insufficiency following cardiac surgery 05/30/2015 06/15/2015 Overview: Severe RV, arrived from OR on iflolan and Epi. iFlolan weaned off A/P: Off epi and iFlolan. Open chest wound 05/30/2015 06/11/2015 Overview: S/p Lung Tx A/P: Dressing intact, continue ATBX while chest is open. Possible closure today Volume overload 05/30/2015 09/02/2015 Overview: + fluid balance due to multiple transfusions and volume replacement for shock in the early post op period. A/P: - 1.9 L/24hr. Continue diuresis, monitor UOP and labs. Personal history of ECMO 05/30/2015 015 Overview: VV ECMO on 05/30, Transitioned to VA ECMO 05/31. VA ECMO weaned 06/03, back on VV ECMO Decannulated on 06/15. Stress hyperglycemia 05/30/2015 06/11/2015 Overview: S/P Lung Tx A/P: Stress hyperglycemia exacerbated by surgery and pressors. RHI infusion for glycemic control. Shock liver - hepatic insufficiency 05/30/2015 06/05/2015 Overview: Markedly elevated LFTs, persistent coagulopathy and bleeding despite near- continuous trasnfusion of blood products. Also recurrent hypoglycemia requiring D50 boluses and D10W infusion. A/P: LFTs downtrending. 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 Progressively hypoxemic after arrival to ICU despite maximal MV support with lung protective ventilation and inhaled epoprostenol. NMB, inverted I:E ratio, high PEEP, low Vt with permissive hypercapnia only helped transiently. VV ECMO placed. Optimize vent settings, BPH, pain control, VV ECMO. Worsening lung compliance d/t hypervolemia (pulm edema) and/ or PGD. Continues on iFlolan. Switched to VA ECMO but maintaining very low Vt plus high PEEP. 06/03 Washout with VA ECMO weaned. VV ECMO initiated. S/p ECMO decannulation 06/15. S/p trach 06/19. Tolerated ~>11hrs on 07/06, but CXR with increased atelectasis following. A/P: CXR with bilateral opacities. Tolerating TC ATC. Continue TC, BPH, pain control, OOB. Consumption coagulopathy 05/29/2015 015 Overview: S/P Lung Transplant. Severe coagulopathic bleeding intraop and immediately postop. Received multiple blood products - plts, cryoppt, FFP and prbcs. Also rewarming for postop hypothermia. A/P: 4u pRBC and 2u platelets distribution coordinator to OR. PF4 antibody negative Chest remains open. Hypotension 05/29/2015 06/15/2015 Overview: Post Lung Tx. Severely vasoplegic intraop and immediately postop requiring multiple inopressors. Received methylene blue bolus intraop. Arrived ICU on epi, norepi, vasopressin and phenylephrine was added in ICU to maintain MAP >60mmHg. Wean for MAP 65 or greater. A/P: Off epi. Maintain MAPs 65-75. Acute blood loss anemia 05/29/2015 09/02/20 15 Overview: H/H remains low but stable. 07/10: H/H 6.6/21--transfused 1 unit 07/11: Transfused for 6.8.3 A/P: Monitor H/H, transfuse prn. Acute postoperative pain 05/29/2015 015 Overview: Post op lung Tx A/P: Dilaudid and acetaminophen prn for pain Immunosuppressed status 05/29/2015 09/02/20 15 Overview: S/p b/l lung transplant on 05/29/2015 -immunosuppression and antiimicrobial prophylaxis as per Transplant Pulmonology. -Cont Tac/MMF/Pred. 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 BP has been on the lower side. Oxygen requirement increased to 3L from 2 L Plan: - Will get repeat Echo with bubble study (last one from January 2015). - Place a PA cath and continue to diurese while monitoring her right heart pressures. - Will need IV lasix-received 80 IV lasix on 04/20 and 100 IV lasix on 04/21 - Continue spironolactone. JAMES (acute kidney injury) 04/21/20152014 Overview: Baseline Cr 0.9 (04/09) -> Cr up to 2.4. A/P: JAMES is likely 2/2 ATN given hypotension and hemorrhage. Balance volume repletion with diuresis --> Cr continues to downtrend 1.92 -->1.37 today. Nephrology following - Maintain MAP 65 or greater, avoid nephrotoxic agents. Continue Lasix drip Hyponatremia with excess extracellular fluid vol ume 04/21/2015 06/02/2015 Overview: Likely hypervolemic hyponatremia. Na improved form 126 to 130 this am. Patient is already on torsemide, spironolactone and metolazone at home. Plan: - Continue to diurese as kidney function allows. 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 - O2 requirements as needed (uses 2L NC at home at night). - Continue home O2 - Patient was seen by lung transplant team. Tests required include: Quantitative perfusion scan (done) Gastric emptying study, esophageal manometry and 24hr pH study (ordered) Dental consultation (will need to call ) Social Work (on board) Iron deficiency anemia 01/25/2013 7 Overview: Menstruating female with iron deficiency Cardiomegaly 01/25/2013 09/02/2015 Overview: -- RV enlargement due to PH Exertional dyspnea 01/25/2013 09/02/2015 Mediastinal adenopathy 01/25/2013 5 Hilar adenopathy 01/25/2013 08/21/2015 Overview: Noted on imaging- mother with a history of Sarcoid Could be 2/2 to chronic VTE and pHTN Lung nodules 01/25/2013 09/02/2015 Overview: Noted on imaging Follow Anticoagulation management encounter 01/25/2013 01/26/2013 SUMMARY 01/24/2013 02/02/2013 Overview: This is a 17 year old female with no significant PMH other than migraine and minimal allergies who developed significant SOB within the past 2 months, this progressed to the point where she was unable to walk up 2 flights of stairs and had mild chest pressure with activty. This worsened on a recent trip to [place] where she was on a 6 hour plane ride leading to a near syncopal episode. She presented ot her PCP for fatigue and was found to have anemia, elevated WBC count and on echo a elevated RVSP and dilated RV. She was sent for CT at her local Ed where she was found to have 2 small PE's. Patient sent for further evaluation. At admission upon review of her Ct there is no PE noted, she does however have significant cardiomegaly, increase RVSP and right atrial dilatation, will need to work up cause of PAH PAH (pulmonary artery hypertension) 01/24/2013 08/21/2015 Overview: Found to have elevated RVSP on echo with RV dilatation. ? Sarcoid as she has a family hx as well as polyarthralgia and fatigue - now with hilar lymphadenopathy RHC revealing PA HTN. 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 as angio was suggestive of multiple PEs small and chronic Plan: Further Remodulin titration as an out-patient q weekly, now on 7.5 ng/kg/min PET scan for VALERIA in the chest complete 02/07 Night sweats 01/24/2013 08/21/2015 Overview: Unclear etiology- Awaiting further PAH workup and Rheum w/u is neg so far documented as of this encounter (statuses as of 08/10/2022) [facility] History of Past illness Narrative* Problem Noted Date Resolved Date Abnormality of gait 12/24/2015 04/11/2017 Ascites 07/13/2015 08/21/2015 Overview: Abdominal distension 07/09 KUB: air in stomach, repeat on 07/11: no dilated loops of bowel 07/11: US abdomen + ascites 07/13 Paracentesis ~ 2L straw colored fluid A/P: Abdomen soft, distended. No c/o abd. fullness. Monitor. Seizure 06/22/2015 08/21/2015 Overview: 06/22/2015 0230 Sudden new onset seizures - with generalized rhythmic contractions of all extremities plus facial twitching. Treated lorazepam and midazolam. Stat head CT negative for bleed. No acute metabolic changes on ABG. Concern for withdrawal from opioids - had been on high dose fentanyl infusion for 3 weeks -infusion d'tabitha on 10/08/15. Neuro consulted and continuous EEG monitoring ordered. Cont vEEG showing mild diffuse encephalopathy but no epileptiform form activity. A/P:: No seizure activity since 06/22. Keppra discontinued per ALD. Abdominal distension 06/15/2015 06/16/2015 Overview: TF held. KUB pending. Fever 06/08/2015 08/21/2015 Overview: S/p CT chest/abd 06/18, which showed RLL collapse, with findings suggestive of necrotic PNA, and scattered upper lobe opacities; moderate ascites, cholelithiasis and gallbladder sludging without cholecystitis. Remains afebrile. No leukocytosis. - Urine cx (06/07), neg; Bld cx (06/11) x2 - NGTD - One blood culture (06/06) grew lactobacillus - Bld/UA cx drawn (06/16) - neg - BAL cx (06/20): smear shows GPC in clusters - Bld cx (06/21) NGTD Plan: - Meropenem stopped on 06/22 - Cont PO Vancomycin through hospitalization - F/u BAL cx (06/20) - Smear currently shows GPC in clusters but no organisms on culture; in the setting of resurgence of fevers, restarted on IV Vanc on 06/18->. Continue Vancomycin oral Mild protein-calorie malnutrition 06/04/2015 04/11/2017 Overview: Nutrition following. Ice chips only per beside swallow evaluation. Advanced to popcicle and applesauce 07/19 A/P: Tolerating TF via corpak at goal. Continue TF at current rate, monitor labs. Speech evaluation today Ischemia of hand 06/01/2015 06/05/2015 Overview: Radial a line removed- good doppler signals Dexter ndiaye placed Heparin infusion for goal pTT 45-55. Ischemia of lower extremity 06/01/201505/13 Overview: Left lower extremity ischemia, has regained DP/PT doppler signals, but calf muscles remains somewhat tense. A/P: CKs normalizing, will stop following CK levels at this time. Vascular surgery signing off, appreciate assistance. 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 Radial art line was in LUE. Art line removed and arterial duplex showed radial artery thrombosis with patent ulnar artery. Pt now with strong pulse in L radial artery. Thrombocytopenia 06/01/2015 06/08/2015 Overview: Required massive transfusion after OR, placed on VA ECMO. Likely consumptive coagulopathy, however PF4 antibody sent given recent initiation of heparin IV. A/P: -Appears to be resolving, platelets 98,000 today. Cardiac insufficiency following cardiac surgery 05/30/2015 06/15/2015 Overview: Severe RV, arrived from OR on iflolan and Epi. iFlolan weaned off A/P: Off epi and iFlolan. Open chest wound 05/30/2015 06/11/2015 Overview: S/p Lung Tx A/P: Dressing intact, continue ATBX while chest is open. Possible closure today Volume overload 05/30/2015 09/02/2015 Overview: + fluid balance due to multiple transfusions and volume replacement for shock in the early post op period. A/P: - 1.9 L/24hr. Continue diuresis, monitor UOP and labs. Personal history of ECMO 05/30/2015 015 Overview: VV ECMO on 05/30, Transitioned to VA ECMO 05/31. VA ECMO weaned 06/03, back on VV ECMO Decannulated on 06/15. Stress hyperglycemia 05/30/2015 06/11/2015 Overview: S/P Lung Tx A/P: Stress hyperglycemia exacerbated by surgery and pressors. RHI infusion for glycemic control. Shock liver - hepatic insufficiency 05/30/2015 06/05/2015 Overview: Markedly elevated LFTs, persistent coagulopathy and bleeding despite near- continuous trasnfusion of blood products. Also recurrent hypoglycemia requiring D50 boluses and D10W infusion. A/P: LFTs downtrending. 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 Progressively hypoxemic after arrival to ICU despite maximal MV support with lung protective ventilation and inhaled epoprostenol. NMB, inverted I:E ratio, high PEEP, low Vt with permissive hypercapnia only helped transiently. VV ECMO placed. Optimize vent settings, BPH, pain control, VV ECMO. Worsening lung compliance d/t hypervolemia (pulm edema) and/ or PGD. Continues on iFlolan. Switched to VA ECMO but maintaining very low Vt plus high PEEP. 06/03 Washout with VA ECMO weaned. VV ECMO initiated. S/p ECMO decannulation 06/15. S/p trach 06/19. Tolerated ~>11hrs on 07/06, but CXR with increased atelectasis following. A/P: CXR with bilateral opacities. Tolerating TC ATC. Continue TC, BPH, pain control, OOB. Consumption coagulopathy 05/29/2015 015 Overview: S/P Lung Transplant. Severe coagulopathic bleeding intraop and immediately postop. Received multiple blood products - plts, cryoppt, FFP and prbcs. Also rewarming for postop hypothermia. A/P: 4u pRBC and 2u platelets distribution coordinator to OR. PF4 antibody negative Chest remains open. Hypotension 05/29/2015 06/15/2015 Overview: Post Lung Tx. Severely vasoplegic intraop and immediately postop requiring multiple inopressors. Received methylene blue bolus intraop. Arrived ICU on epi, norepi, vasopressin and phenylephrine was added in ICU to maintain MAP >60mmHg. Wean for MAP 65 or greater. A/P: Off epi. Maintain MAPs 65-75. Acute blood loss anemia 05/29/2015 09/02/20 15 Overview: H/H remains low but stable. 07/10: H/H 6.6/--transfused 1 unit 07/11: Transfused for 6.8.3 A/P: Monitor H/H, transfuse prn. Acute postoperative pain 05/29/2015 015 Overview: Post op lung Tx A/P: Dilaudid and acetaminophen prn for pain Immunosuppressed status 05/29/2015 09/02/20 15 Overview: S/p b/l lung transplant on 05/29/2015 -immunosuppression and antiimicrobial prophylaxis as per Transplant Pulmonology. -Cont Tac/MMF/Pred. 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 BP has been on the lower side. Oxygen requirement increased to 3L from 2 L Plan: - Will get repeat Echo with bubble study (last one from January 2015). - Place a PA cath and continue to diurese while monitoring her right heart pressures. - Will need IV lasix-received 80 IV lasix on 04/20 and 100 IV lasix on 04/21 - Continue spironolactone. JAMES (acute kidney injury) 04/21/20152014 Overview: Baseline Cr 0.9 (04/09) -> Cr up to 2.4. A/P: JAMES is likely 2/2 ATN given hypotension and hemorrhage. Balance volume repletion with diuresis --> Cr continues to downtrend 1.92 -->1.37 today. Nephrology following - Maintain MAP 65 or greater, avoid nephrotoxic agents. Continue Lasix drip Hyponatremia with excess extracellular fluid vol ume 04/21/2015 06/02/2015 Overview: Likely hypervolemic hyponatremia. Na improved form 126 to 130 this am. Patient is already on torsemide, spironolactone and metolazone at home. Plan: - Continue to diurese as kidney function allows. 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 - O2 requirements as needed (uses 2L NC at home at night). - Continue home O2 - Patient was seen by lung transplant team. Tests required include: Quantitative perfusion scan (done) Gastric emptying study, esophageal manometry and 24hr pH study (ordered) Dental consultation (will need to call ) Social Work (on board) Iron deficiency anemia 01/25/2013 7 Overview: Menstruating female with iron deficiency Cardiomegaly 01/25/2013 09/02/2015 Overview: -- RV enlargement due to PH Exertional dyspnea 01/25/2013 09/02/2015 Mediastinal adenopathy 01/25/2013 5 Hilar adenopathy 01/25/2013 08/21/2015 Overview: Noted on imaging- mother with a history of Sarcoid Could be 2/2 to chronic VTE and pHTN Lung nodules 01/25/2013 09/02/2015 Overview: Noted on imaging Follow Anticoagulation management encounter 01/25/2013 01/26/2013 SUMMARY 01/24/2013 02/02/2013 Overview: This is a 17 year old female with no significant PMH other than migraine and minimal allergies who developed significant SOB within the past 2 months, this progressed to the point where she was unable to walk up 2 flights of stairs and had mild chest pressure with activty. This worsened on a recent trip to [place] where she was on a 6 hour plane ride leading to a near syncopal episode. She presented ot her PCP for fatigue and was found to have anemia, elevated WBC count and on echo a elevated RVSP and dilated RV. She was sent for CT at her local Ed where she was found to have 2 small PE's. Patient sent for further evaluation. At admission upon review of her Ct there is no PE noted, she does however have significant cardiomegaly, increase RVSP and right atrial dilatation, will need to work up cause of PAH PAH (pulmonary artery hypertension) 01/24/2013 08/21/2015 Overview: Found to have elevated RVSP on echo with RV dilatation. ? Sarcoid as she has a family hx as well as polyarthralgia and fatigue - now with hilar lymphadenopathy RHC revealing PA HTN. 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 as angio was suggestive of multiple PEs small and chronic Plan: Further Remodulin titration as an out-patient q weekly, now on 7.5 ng/kg/min PET scan for VALERIA in the chest complete 02/07 Night sweats 01/24/2013 08/21/2015 Overview: Unclear etiology- Awaiting further PAH workup and Rheum w/u is neg so far documented as of this encounter (statuses as of 08/15/2022) [facility] History of Past illness Narrative* Problem Noted Date Resolved Date Abnormality of gait 12/24/2015 04/11/2017 Ascites 07/13/2015 08/21/2015 Overview: Abdominal distension 07/09 KUB: air in stomach, repeat on 07/11: no dilated loops of bowel 07/11: US abdomen + ascites 07/13 Paracentesis ~ 2L straw colored fluid A/P: Abdomen soft, distended. No c/o abd. fullness. Monitor. Seizure 06/22/2015 08/21/2015 Overview: 06/22/2015 0230 Sudden new onset seizures - with generalized rhythmic contractions of all extremities plus facial twitching. Treated lorazepam and midazolam. Stat head CT negative for bleed. No acute metabolic changes on ABG. Concern for withdrawal from opioids - had been on high dose fentanyl infusion for 3 weeks -infusion d'tabitha on 06/18/15. Neuro consulted and continuous EEG monitoring ordered. Cont vEEG showing mild diffuse encephalopathy but no epileptiform form activity. A/P:: No seizure activity since 06/22. Keppra discontinued per ALD. Abdominal distension 06/15/2015 06/16/2015 Overview: TF held. KUB pending. Fever 06/08/2015 08/21/2015 Overview: S/p CT chest/abd 06/18, which showed RLL collapse, with findings suggestive of necrotic PNA, and scattered upper lobe opacities; moderate ascites, cholelithiasis and gallbladder sludging without cholecystitis. Remains afebrile. No leukocytosis. - Urine cx (06/07), neg; Bld cx (06/11) x2 - NGTD - One blood culture (06/06) grew lactobacillus - Bld/UA cx drawn (06/16) - neg - BAL cx (06/20): smear shows GPC in clusters - Bld cx (06/21) NGTD Plan: - Meropenem stopped on 06/22 - Cont PO Vancomycin through hospitalization - F/u BAL cx (06/20) - Smear currently shows GPC in clusters but no organisms on culture; in the setting of resurgence of fevers, restarted on IV Vanc on 06/18->. Continue Vancomycin oral Mild protein-calorie malnutrition 06/04/2015 04/11/2017 Overview: Nutrition following. Ice chips only per beside swallow evaluation. Advanced to popcicle and applesauce 07/19 A/P: Tolerating TF via corpak at goal. Continue TF at current rate, monitor labs. Speech evaluation today Ischemia of hand 06/01/2015 06/05/2015 Overview: Radial a line removed- good doppler signals Rooke mittens placed Heparin infusion for goal pTT 45-55. Ischemia of lower extremity 06/01/201505/13 Overview: Left lower extremity ischemia, has regained DP/PT doppler signals, but calf muscles remains somewhat tense. A/P: CKs normalizing, will stop following CK levels at this time. Vascular surgery signing off, appreciate assistance. 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 Radial art line was in LUE. Art line removed and arterial duplex showed radial artery thrombosis with patent ulnar artery. Pt now with strong pulse in L radial artery. Thrombocytopenia 06/01/2015 06/08/2015 Overview: Required massive transfusion after OR, placed on VA ECMO. Likely consumptive coagulopathy, however PF4 antibody sent given recent initiation of heparin IV. A/P: -Appears to be resolving, platelets 98,000 today. Cardiac insufficiency following cardiac surgery 05/30/2015 06/15/2015 Overview: Severe RV, arrived from OR on iflolan and Epi. iFlolan weaned off A/P: Off epi and iFlolan. Open chest wound 05/30/2015 06/11/2015 Overview: S/p Lung Tx A/P: Dressing intact, continue ATBX while chest is open. Possible closure today Volume overload 05/30/2015 09/02/2015 Overview: + fluid balance due to multiple transfusions and volume replacement for shock in the early post op period. A/P: - 1.9 L/24hr. Continue diuresis, monitor UOP and labs. Personal history of ECMO 05/30/2015 015 Overview: VV ECMO on 05/30, Transitioned to VA ECMO 05/31. VA ECMO weaned 06/03, back on VV ECMO Decannulated on 06/15. Stress hyperglycemia 05/30/2015 06/11/2015 Overview: S/P Lung Tx A/P: Stress hyperglycemia exacerbated by surgery and pressors. RHI infusion for glycemic control. Shock liver - hepatic insufficiency 05/30/2015 06/05/2015 Overview: Markedly elevated LFTs, persistent coagulopathy and bleeding despite near- continuous trasnfusion of blood products. Also recurrent hypoglycemia requiring D50 boluses and D10W infusion. A/P: LFTs downtrending. 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 Progressively hypoxemic after arrival to ICU despite maximal MV support with lung protective ventilation and inhaled epoprostenol. NMB, inverted I:E ratio, high PEEP, low Vt with permissive hypercapnia only helped transiently. VV ECMO placed. Optimize vent settings, BPH, pain control, VV ECMO. Worsening lung compliance d/t hypervolemia (pulm edema) and/ or PGD. Continues on iFlolan. Switched to VA ECMO but maintaining very low Vt plus high PEEP. 06/03 Washout with VA ECMO weaned. VV ECMO initiated. S/p ECMO decannulation 06/15. S/p trach 06/19. Tolerated ~>11hrs on 07/06, but CXR with increased atelectasis following. A/P: CXR with bilateral opacities. Tolerating TC ATC. Continue TC, BPH, pain control, OOB. Consumption coagulopathy 05/29/201506/06/ 015 Overview: S/P Lung Transplant. Severe coagulopathic bleeding intraop and immediately postop. Received multiple blood products - plts, cryoppt, FFP and prbcs. Also rewarming for postop hypothermia. A/P: 4u pRBC and 2u platelets distribution coordinator to OR. PF4 antibody negative Chest remains open. Hypotension 05/29/2015 06/15/2015 Overview: Post Lung Tx. Severely vasoplegic intraop and immediately postop requiring multiple inopressors. Received methylene blue bolus intraop. Arrived ICU on epi, norepi, vasopressin and phenylephrine was added in ICU to maintain MAP >60mmHg. Wean for MAP 65 or greater. A/P: Off epi. Maintain MAPs 65-75. Acute blood loss anemia 05/29/2015 09/02/20 15 Overview: H/H remains low but stable. 07/10: H/H 6.6/21--transfused 1 unit 07/11: Transfused for 6.8/21.3 A/P: Monitor H/H, transfuse prn. Acute postoperative pain 05/29/2015 015 Overview: Post op lung Tx A/P: Dilaudid and acetaminophen prn for pain Immunosuppressed status 05/29/2015 09/02/20 15 Overview: S/p b/l lung transplant on 05/29/2015 -immunosuppression and antiimicrobial prophylaxis as per Transplant Pulmonology. -Cont Tac/MMF/Pred. 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 BP has been on the lower side. Oxygen requirement increased to 3L from 2 L Plan: - Will get repeat Echo with bubble study (last one from January 2015). - Place a PA cath and continue to diurese while monitoring her right heart pressures. - Will need IV lasix-received 80 IV lasix on 04/20 and 100 IV lasix on 04/21 - Continue spironolactone. JAMES (acute kidney injury) 04/21/20152014 Overview: Baseline Cr 0.9 (04/09) -> Cr up to 2.4. A/P: JAMES is likely 2/2 ATN given hypotension and hemorrhage. Balance volume repletion with diuresis --> Cr continues to downtrend 1.92 -->1.37 today. Nephrology following - Maintain MAP 65 or greater, avoid nephrotoxic agents. Continue Lasix drip Hyponatremia with excess extracellular fluid vol ume 04/21/2015 06/02/2015 Overview: Likely hypervolemic hyponatremia. Na improved form 126 to 130 this am. Patient is already on torsemide, spironolactone and metolazone at home. Plan: - Continue to diurese as kidney function allows. 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 - O2 requirements as needed (uses 2L NC at home at night). - Continue home O2 - Patient was seen by lung transplant team. Tests required include: Quantitative perfusion scan (done) Gastric emptying study, esophageal manometry and 24hr pH study (ordered) Dental consultation (will need to call ) Social Work (on board) Iron deficiency anemia 01/25/2013 7 Overview: Menstruating female with iron deficiency Cardiomegaly 01/25/2013 09/02/2015 Overview: -- RV enlargement due to PH Exertional dyspnea 01/25/2013 09/02/2015 Mediastinal adenopathy 01/25/2013 5 Hilar adenopathy 01/25/2013 08/21/2015 Overview: Noted on imaging- mother with a history of Sarcoid Could be 2/2 to chronic VTE and pHTN Lung nodules 01/25/2013 09/02/2015 Overview: Noted on imaging Follow Anticoagulation management encounter 01/25/2013 01/26/2013 SUMMARY 01/24/2013 02/02/2013 Overview: This is a 17 year old female with no significant PMH other than migraine and minimal allergies who developed significant SOB within the past 2 months, this progressed to the point where she was unable to walk up 2 flights of stairs and had mild chest pressure with activty. This worsened on a recent trip to [place] where she was on a 6 hour plane ride leading to a near syncopal episode. She presented ot her PCP for fatigue and was found to have anemia, elevated WBC count and on echo a elevated RVSP and dilated RV. She was sent for CT at her local Ed where she was found to have 2 small PE's. Patient sent for further evaluation. At admission upon review of her Ct there is no PE noted, she does however have significant cardiomegaly, increase RVSP and right atrial dilatation, will need to work up cause of PAH PAH (pulmonary artery hypertension) 01/24/2013 08/21/2015 Overview: Found to have elevated RVSP on echo with RV dilatation. ? Sarcoid as she has a family hx as well as polyarthralgia and fatigue - now with hilar lymphadenopathy RHC revealing PA HTN. 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 as angio was suggestive of multiple PEs small and chronic Plan: Further Remodulin titration as an out-patient q weekly, now on 7.5 ng/kg/min PET scan for VALERIA in the chest complete 02/07 Night sweats 01/24/2013 08/21/2015 Overview: Unclear etiology- Awaiting further PAH workup and Rheum w/u is neg so far documented as of this encounter (statuses as of 08/17/2022) [facility] History of Past illness Narrative* Problem Noted Date Resolved Date Abnormality of gait 12/24/2015 04/11/2017 Ascites 07/13/2015 08/21/2015 Overview: Abdominal distension 07/09 KUB: air in stomach, repeat on 07/11: no dilated loops of bowel 07/11: US abdomen + ascites 07/13 Paracentesis ~ 2L straw colored fluid A/P: Abdomen soft, distended. No c/o abd. fullness. Monitor. Seizure 06/22/2015 08/21/2015 Overview: 06/22/2015 0230 Sudden new onset seizures - with generalized rhythmic contractions of all extremities plus facial twitching. Treated lorazepam and midazolam. Stat head CT negative for bleed. No acute metabolic changes on ABG. Concern for withdrawal from opioids - had been on high dose fentanyl infusion for 3 weeks -infusion d'tabitha on 06/18/15. Neuro consulted and continuous EEG monitoring ordered. Cont vEEG showing mild diffuse encephalopathy but no epileptiform form activity. A/P:: No seizure activity since 06/22. Keppra discontinued per ALD. Abdominal distension 06/15/2015 06/16/2015 Overview: TF held. KUB pending. Fever 06/08/2015 08/21/2015 Overview: S/p CT chest/abd 06/18, which showed RLL collapse, with findings suggestive of necrotic PNA, and scattered upper lobe opacities; moderate ascites, cholelithiasis and gallbladder sludging without cholecystitis. Remains afebrile. No leukocytosis. - Urine cx (06/07), neg; Bld cx (06/11) x2 - NGTD - One blood culture (06/06) grew lactobacillus - Bld/UA cx drawn (06/16) - neg - BAL cx (06/20): smear shows GPC in clusters - Bld cx (06/21) NGTD Plan: - Meropenem stopped on 06/22 - Cont PO Vancomycin through hospitalization - F/u BAL cx (06/20) - Smear currently shows GPC in clusters but no organisms on culture; in the setting of resurgence of fevers, restarted on IV Vanc on 06/18->. Continue Vancomycin oral Mild protein-calorie malnutrition 06/04/2015 04/11/2017 Overview: Nutrition following. Ice chips only per beside swallow evaluation. Advanced to popcicle and applesauce 07/19 A/P: Tolerating TF via corpak at goal. Continue TF at current rate, monitor labs. Speech evaluation today Ischemia of hand 06/01/2015 06/05/2015 Overview: Radial a line removed- good doppler signals Dexter ndiaye placed Heparin infusion for goal pTT 45-55. Ischemia of lower extremity 06/01/201505/13 Overview: Left lower extremity ischemia, has regained DP/PT doppler signals, but calf muscles remains somewhat tense. A/P: CKs normalizing, will stop following CK levels at this time. Vascular surgery signing off, appreciate assistance. 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 Radial art line was in LUE. Art line removed and arterial duplex showed radial artery thrombosis with patent ulnar artery. Pt now with strong pulse in L radial artery. Thrombocytopenia 06/01/2015 06/08/2015 Overview: Required massive transfusion after OR, placed on VA ECMO. Likely consumptive coagulopathy, however PF4 antibody sent given recent initiation of heparin IV. A/P: -Appears to be resolving, platelets 98,000 today. Cardiac insufficiency following cardiac surgery 05/30/2015 06/15/2015 Overview: Severe RV, arrived from OR on iflolan and Epi. iFlolan weaned off A/P: Off epi and iFlolan. Open chest wound 05/30/2015 06/11/2015 Overview: S/p Lung Tx A/P: Dressing intact, continue ATBX while chest is open. Possible closure today Volume overload 05/30/2015 09/02/2015 Overview: + fluid balance due to multiple transfusions and volume replacement for shock in the early post op period. A/P: - 1.9 L/24hr. Continue diuresis, monitor UOP and labs. Personal history of ECMO 05/30/2015 015 Overview: VV ECMO on 05/30, Transitioned to VA ECMO 05/31. VA ECMO weaned 06/03, back on VV ECMO Decannulated on 06/15. Stress hyperglycemia 05/30/2015 06/11/2015 Overview: S/P Lung Tx A/P: Stress hyperglycemia exacerbated by surgery and pressors. RHI infusion for glycemic control. Shock liver - hepatic insufficiency 05/30/2015 06/05/2015 Overview: Markedly elevated LFTs, persistent coagulopathy and bleeding despite near- continuous trasnfusion of blood products. Also recurrent hypoglycemia requiring D50 boluses and D10W infusion. A/P: LFTs downtrending. 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 Progressively hypoxemic after arrival to ICU despite maximal MV support with lung protective ventilation and inhaled epoprostenol. NMB, inverted I:E ratio, high PEEP, low Vt with permissive hypercapnia only helped transiently. VV ECMO placed. Optimize vent settings, BPH, pain control, VV ECMO. Worsening lung compliance d/t hypervolemia (pulm edema) and/ or PGD. Continues on iFlolan. Switched to VA ECMO but maintaining very low Vt plus high PEEP. 06/03 Washout with VA ECMO weaned. VV ECMO initiated. S/p ECMO decannulation 06/15. S/p trach 06/19. Tolerated ~>11hrs on 07/06, but CXR with increased atelectasis following. A/P: CXR with bilateral opacities. Tolerating TC ATC. Continue TC, BPH, pain control, OOB. Consumption coagulopathy 05/29/2015 015 Overview: S/P Lung Transplant. Severe coagulopathic bleeding intraop and immediately postop. Received multiple blood products - plts, cryoppt, FFP and prbcs. Also rewarming for postop hypothermia. A/P: 4u pRBC and 2u platelets distribution coordinator to OR. PF4 antibody negative Chest remains open. Hypotension 05/29/2015 06/15/2015 Overview: Post Lung Tx. Severely vasoplegic intraop and immediately postop requiring multiple inopressors. Received methylene blue bolus intraop. Arrived ICU on epi, norepi, vasopressin and phenylephrine was added in ICU to maintain MAP >60mmHg. Wean for MAP 65 or greater. A/P: Off epi. Maintain MAPs 65-75. Acute blood loss anemia 05/29/2015 09/02/20 15 Overview: H/H remains low but stable. 07/10: H/H 6.6/--transfused 1 unit 07/11: Transfused for 6.8.3 A/P: Monitor H/H, transfuse prn. Acute postoperative pain 05/29/2015 015 Overview: Post op lung Tx A/P: Dilaudid and acetaminophen prn for pain Immunosuppressed status 05/29/2015 09/02/20 15 Overview: S/p b/l lung transplant on 05/29/2015 -immunosuppression and antiimicrobial prophylaxis as per Transplant Pulmonology. -Cont Tac/MMF/Pred. 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 BP has been on the lower side. Oxygen requirement increased to 3L from 2 L Plan: - Will get repeat Echo with bubble study (last one from January 2015). - Place a PA cath and continue to diurese while monitoring her right heart pressures. - Will need IV lasix-received 80 IV lasix on 04/20 and 100 IV lasix on 04/21 - Continue spironolactone. JAMES (acute kidney injury) 04/21/20152014 Overview: Baseline Cr 0.9 (04/09) -> Cr up to 2.4. A/P: JAMES is likely 2/2 ATN given hypotension and hemorrhage. Balance volume repletion with diuresis --> Cr continues to downtrend 1.92 -->1.37 today. Nephrology following - Maintain MAP 65 or greater, avoid nephrotoxic agents. Continue Lasix drip Hyponatremia with excess extracellular fluid vol ume 04/21/2015 06/02/2015 Overview: Likely hypervolemic hyponatremia. Na improved form 126 to 130 this am. Patient is already on torsemide, spironolactone and metolazone at home. Plan: - Continue to diurese as kidney function allows. 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 - O2 requirements as needed (uses 2L NC at home at night). - Continue home O2 - Patient was seen by lung transplant team. Tests required include: Quantitative perfusion scan (done) Gastric emptying study, esophageal manometry and 24hr pH study (ordered) Dental consultation (will need to call ) Social Work (on board) Iron deficiency anemia 01/25/2013 7 Overview: Menstruating female with iron deficiency Cardiomegaly 01/25/2013 09/02/2015 Overview: -- RV enlargement due to PH Exertional dyspnea 01/25/2013 09/02/2015 Mediastinal adenopathy 01/25/2013 5 Hilar adenopathy 01/25/2013 08/21/2015 Overview: Noted on imaging- mother with a history of Sarcoid Could be 2/2 to chronic VTE and pHTN Lung nodules 01/25/2013 09/02/2015 Overview: Noted on imaging Follow Anticoagulation management encounter 01/25/2013 01/26/2013 SUMMARY 01/24/2013 02/02/2013 Overview: This is a 17 year old female with no significant PMH other than migraine and minimal allergies who developed significant SOB within the past 2 months, this progressed to the point where she was unable to walk up 2 flights of stairs and had mild chest pressure with activty. This worsened on a recent trip to [place] where she was on a 6 hour plane ride leading to a near syncopal episode. She presented ot her PCP for fatigue and was found to have anemia, elevated WBC count and on echo a elevated RVSP and dilated RV. She was sent for CT at her local Ed where she was found to have 2 small PE's. Patient sent for further evaluation. At admission upon review of her Ct there is no PE noted, she does however have significant cardiomegaly, increase RVSP and right atrial dilatation, will need to work up cause of PAH PAH (pulmonary artery hypertension) 01/24/2013 08/21/2015 Overview: Found to have elevated RVSP on echo with RV dilatation. ? Sarcoid as she has a family hx as well as polyarthralgia and fatigue - now with hilar lymphadenopathy RHC revealing PA HTN. 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 as angio was suggestive of multiple PEs small and chronic Plan: Further Remodulin titration as an out-patient q weekly, now on 7.5 ng/kg/min PET scan for VALERIA in the chest complete 02/07 Night sweats 01/24/2013 08/21/2015 Overview: Unclear etiology- Awaiting further PAH workup and Rheum w/u is neg so far documented as of this encounter (statuses as of 08/18/2022) [facility] History of Past illness Narrative* Problem Noted Date Resolved Date Abnormality of gait 12/24/2015 04/11/2017 Ascites 07/13/2015 08/21/2015 Overview: Abdominal distension 07/09 KUB: air in stomach, repeat on 07/11: no dilated loops of bowel 07/11: US abdomen + ascites 07/13 Paracentesis ~ 2L straw colored fluid A/P: Abdomen soft, distended. No c/o abd. fullness. Monitor. Seizure 06/22/2015 08/21/2015 Overview: 06/22/2015 0230 Sudden new onset seizures - with generalized rhythmic contractions of all extremities plus facial twitching. Treated lorazepam and midazolam. Stat head CT negative for bleed. No acute metabolic changes on ABG. Concern for withdrawal from opioids - had been on high dose fentanyl infusion for 3 weeks -infusion d'tabitha on 06/18/15. Neuro consulted and continuous EEG monitoring ordered. Cont vEEG showing mild diffuse encephalopathy but no epileptiform form activity. A/P:: No seizure activity since 06/22. Keppra discontinued per ALD. Abdominal distension 06/15/2015 06/16/2015 Overview: TF held. KUB pending. Fever 06/08/2015 08/21/2015 Overview: S/p CT chest/abd 06/18, which showed RLL collapse, with findings suggestive of necrotic PNA, and scattered upper lobe opacities; moderate ascites, cholelithiasis and gallbladder sludging without cholecystitis. Remains afebrile. No leukocytosis. - Urine cx (06/07), neg; Bld cx (06/11) x2 - NGTD - One blood culture (06/06) grew lactobacillus - Bld/UA cx drawn (06/16) - neg - BAL cx (06/20): smear shows GPC in clusters - Bld cx (06/21) NGTD Plan: - Meropenem stopped on 06/22 - Cont PO Vancomycin through hospitalization - F/u BAL cx (06/20) - Smear currently shows GPC in clusters but no organisms on culture; in the setting of resurgence of fevers, restarted on IV Vanc on 06/18->. Continue Vancomycin oral Mild protein-calorie malnutrition 06/04/2015 04/11/2017 Overview: Nutrition following. Ice chips only per beside swallow evaluation. Advanced to popcicle and applesauce 07/19 A/P: Tolerating TF via corpak at goal. Continue TF at current rate, monitor labs. Speech evaluation today Ischemia of hand 06/01/2015 06/05/2015 Overview: Radial a line removed- good doppler signals Dexter ndiaye placed Heparin infusion for goal pTT 45-55. Ischemia of lower extremity 06/01/201505/13 Overview: Left lower extremity ischemia, has regained DP/PT doppler signals, but calf muscles remains somewhat tense. A/P: CKs normalizing, will stop following CK levels at this time. Vascular surgery signing off, appreciate assistance. 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 Radial art line was in LUE. Art line removed and arterial duplex showed radial artery thrombosis with patent ulnar artery. Pt now with strong pulse in L radial artery. Thrombocytopenia 06/01/2015 06/08/2015 Overview: Required massive transfusion after OR, placed on VA ECMO. Likely consumptive coagulopathy, however PF4 antibody sent given recent initiation of heparin IV. A/P: -Appears to be resolving, platelets 98,000 today. Cardiac insufficiency following cardiac surgery 05/30/2015 06/15/2015 Overview: Severe RV, arrived from OR on iflolan and Epi. iFlolan weaned off A/P: Off epi and iFlolan. Open chest wound 05/30/2015 06/11/2015 Overview: S/p Lung Tx A/P: Dressing intact, continue ATBX while chest is open. Possible closure today Volume overload 05/30/2015 09/02/2015 Overview: + fluid balance due to multiple transfusions and volume replacement for shock in the early post op period. A/P: - 1.9 L/24hr. Continue diuresis, monitor UOP and labs. Personal history of ECMO 05/30/2015 015 Overview: VV ECMO on 05/30, Transitioned to VA ECMO 05/31. VA ECMO weaned 06/03, back on VV ECMO Decannulated on 06/15. Stress hyperglycemia 05/30/2015 06/11/2015 Overview: S/P Lung Tx A/P: Stress hyperglycemia exacerbated by surgery and pressors. RHI infusion for glycemic control. Shock liver - hepatic insufficiency 05/30/2015 06/05/2015 Overview: Markedly elevated LFTs, persistent coagulopathy and bleeding despite near- continuous trasnfusion of blood products. Also recurrent hypoglycemia requiring D50 boluses and D10W infusion. A/P: LFTs downtrending. 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 Progressively hypoxemic after arrival to ICU despite maximal MV support with lung protective ventilation and inhaled epoprostenol. NMB, inverted I:E ratio, high PEEP, low Vt with permissive hypercapnia only helped transiently. VV ECMO placed. Optimize vent settings, BPH, pain control, VV ECMO. Worsening lung compliance d/t hypervolemia (pulm edema) and/ or PGD. Continues on iFlolan. Switched to VA ECMO but maintaining very low Vt plus high PEEP. 06/03 Washout with VA ECMO weaned. VV ECMO initiated. S/p ECMO decannulation 06/15. S/p trach 06/19. Tolerated ~>11hrs on 07/06, but CXR with increased atelectasis following. A/P: CXR with bilateral opacities. Tolerating TC ATC. Continue TC, BPH, pain control, OOB. Consumption coagulopathy 05/29/2015 015 Overview: S/P Lung Transplant. Severe coagulopathic bleeding intraop and immediately postop. Received multiple blood products - plts, cryoppt, FFP and prbcs. Also rewarming for postop hypothermia. A/P: 4u pRBC and 2u platelets distribution coordinator to OR. PF4 antibody negative Chest remains open. Hypotension 05/29/2015 06/15/2015 Overview: Post Lung Tx. Severely vasoplegic intraop and immediately postop requiring multiple inopressors. Received methylene blue bolus intraop. Arrived ICU on epi, norepi, vasopressin and phenylephrine was added in ICU to maintain MAP >60mmHg. Wean for MAP 65 or greater. A/P: Off epi. Maintain MAPs 65-75. Acute blood loss anemia 05/29/2015 09/02/20 15 Overview: H/H remains low but stable. 07/10: H/H 6.03/01--transfused 1 unit 07/11: Transfused for .05/01.3 A/P: Monitor H/H, transfuse prn. Acute postoperative pain 05/29/2015 015 Overview: Post op lung Tx A/P: Dilaudid and acetaminophen prn for pain Immunosuppressed status 05/29/2015 09/02/20 15 Overview: S/p b/l lung transplant on 05/29/2015 -immunosuppression and antiimicrobial prophylaxis as per Transplant Pulmonology. -Cont Tac/MMF/Pred. 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 BP has been on the lower side. Oxygen requirement increased to 3L from 2 L Plan: - Will get repeat Echo with bubble study (last one from January 2015). - Place a PA cath and continue to diurese while monitoring her right heart pressures. - Will need IV lasix-received 80 IV lasix on 04/20 and 100 IV lasix on 04/21 - Continue spironolactone. JAMES (acute kidney injury) 04/21/20152014 Overview: Baseline Cr 0.9 (04/09) -> Cr up to 2.4. A/P: JAMES is likely 2/2 ATN given hypotension and hemorrhage. Balance volume repletion with diuresis --> Cr continues to downtrend 1.92 -->1.37 today. Nephrology following - Maintain MAP 65 or greater, avoid nephrotoxic agents. Continue Lasix drip Hyponatremia with excess extracellular fluid vol ume 04/21/2015 06/02/2015 Overview: Likely hypervolemic hyponatremia. Na improved form 126 to 130 this am. Patient is already on torsemide, spironolactone and metolazone at home. Plan: - Continue to diurese as kidney function allows. 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 - O2 requirements as needed (uses 2L NC at home at night). - Continue home O2 - Patient was seen by lung transplant team. Tests required include: Quantitative perfusion scan (done) Gastric emptying study, esophageal manometry and 24hr pH study (ordered) Dental consultation (will need to call ) Social Work (on board) Iron deficiency anemia 01/25/2013 7 Overview: Menstruating female with iron deficiency Cardiomegaly 01/25/2013 09/02/2015 Overview: -- RV enlargement due to PH Exertional dyspnea 01/25/2013 09/02/2015 Mediastinal adenopathy 01/25/2013 5 Hilar adenopathy 01/25/2013 08/21/2015 Overview: Noted on imaging- mother with a history of Sarcoid Could be 2/2 to chronic VTE and pHTN Lung nodules 01/25/2013 09/02/2015 Overview: Noted on imaging Follow Anticoagulation management encounter 01/25/2013 01/26/2013 SUMMARY 01/24/2013 02/02/2013 Overview: This is a 17 year old female with no significant PMH other than migraine and minimal allergies who developed significant SOB within the past 2 months, this progressed to the point where she was unable to walk up 2 flights of stairs and had mild chest pressure with activty. This worsened on a recent trip to [place] where she was on a 6 hour plane ride leading to a near syncopal episode. She presented ot her PCP for fatigue and was found to have anemia, elevated WBC count and on echo a elevated RVSP and dilated RV. She was sent for CT at her local Ed where she was found to have 2 small PE's. Patient sent for further evaluation. At admission upon review of her Ct there is no PE noted, she does however have significant cardiomegaly, increase RVSP and right atrial dilatation, will need to work up cause of PAH PAH (pulmonary artery hypertension) 01/24/2013 08/21/2015 Overview: Found to have elevated RVSP on echo with RV dilatation. ? Sarcoid as she has a family hx as well as polyarthralgia and fatigue - now with hilar lymphadenopathy RHC revealing PA HTN. 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 as angio was suggestive of multiple PEs small and chronic Plan: Further Remodulin titration as an out-patient q weekly, now on 7.5 ng/kg/min PET scan for VALERIA in the chest complete 530 Night sweats 01/24/2013 08/21/2015 Overview: Unclear etiology- Awaiting further PAH workup and Rheum w/u is neg so far documented as of this encounter (statuses as of 08/18/2022) [facility] History of Past illness Narrative* Problem Noted Date Resolved Date Abnormality of gait 12/24/2015 04/11/2017 Ascites 07/13/2015 08/21/2015 Overview: Abdominal distension 07/09 KUB: air in stomach, repeat on 07/11: no dilated loops of bowel 07/11: US abdomen + ascites 07/13 Paracentesis ~ 2L straw colored fluid A/P: Abdomen soft, distended. No c/o abd. fullness. Monitor. Seizure 06/22/2015 08/21/2015 Overview: 06/22/2015 0230 Sudden new onset seizures - with generalized rhythmic contractions of all extremities plus facial twitching. Treated lorazepam and midazolam. Stat head CT negative for bleed. No acute metabolic changes on ABG. Concern for withdrawal from opioids - had been on high dose fentanyl infusion for 3 weeks -infusion d'tabitha on 06/18/15. Neuro consulted and continuous EEG monitoring ordered. Cont vEEG showing mild diffuse encephalopathy but no epileptiform form activity. A/P:: No seizure activity since 06/22. Keppra discontinued per ALD. Abdominal distension 06/15/2015 06/16/2015 Overview: TF held. KUB pending. Fever 06/08/2015 08/21/2015 Overview: S/p CT chest/abd 06/18, which showed RLL collapse, with findings suggestive of necrotic PNA, and scattered upper lobe opacities; moderate ascites, cholelithiasis and gallbladder sludging without cholecystitis. Remains afebrile. No leukocytosis. - Urine cx (06/07), neg; Bld cx (06/11) x2 - NGTD - One blood culture (06/06) grew lactobacillus - Bld/UA cx drawn (06/16) - neg - BAL cx (06/20): smear shows GPC in clusters - Bld cx (06/21) NGTD Plan: - Meropenem stopped on 06/22 - Cont PO Vancomycin through hospitalization - F/u BAL cx (06/20) - Smear currently shows GPC in clusters but no organisms on culture; in the setting of resurgence of fevers, restarted on IV Vanc on 06/18->. Continue Vancomycin oral Mild protein-calorie malnutrition 06/04/2015 04/11/2017 Overview: Nutrition following. Ice chips only per beside swallow evaluation. Advanced to popcicle and applesauce 07/19 A/P: Tolerating TF via corpak at goal. Continue TF at current rate, monitor labs. Speech evaluation today Ischemia of hand 06/01/2015 06/05/2015 Overview: Radial a line removed- good doppler signals Rooke mittens placed Heparin infusion for goal pTT 45-55. Ischemia of lower extremity 06/01/201505/13 Overview: Left lower extremity ischemia, has regained DP/PT doppler signals, but calf muscles remains somewhat tense. A/P: CKs normalizing, will stop following CK levels at this time. Vascular surgery signing off, appreciate assistance. 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 Radial art line was in LUE. Art line removed and arterial duplex showed radial artery thrombosis with patent ulnar artery. Pt now with strong pulse in L radial artery. Thrombocytopenia 06/01/2015 06/08/2015 Overview: Required massive transfusion after OR, placed on VA ECMO. Likely consumptive coagulopathy, however PF4 antibody sent given recent initiation of heparin IV. A/P: -Appears to be resolving, platelets 98,000 today. Cardiac insufficiency following cardiac surgery 05/30/2015 06/15/2015 Overview: Severe RV, arrived from OR on iflolan and Epi. iFlolan weaned off A/P: Off epi and iFlolan. Open chest wound 05/30/2015 06/11/2015 Overview: S/p Lung Tx A/P: Dressing intact, continue ATBX while chest is open. Possible closure today Volume overload 05/30/2015 09/02/2015 Overview: + fluid balance due to multiple transfusions and volume replacement for shock in the early post op period. A/P: - 1.9 L/24hr. Continue diuresis, monitor UOP and labs. Personal history of ECMO 05/30/2015 015 Overview: VV ECMO on 05/30, Transitioned to VA ECMO 05/31. VA ECMO weaned 06/03, back on VV ECMO Decannulated on 06/15. Stress hyperglycemia 05/30/2015 06/11/2015 Overview: S/P Lung Tx A/P: Stress hyperglycemia exacerbated by surgery and pressors. RHI infusion for glycemic control. Shock liver - hepatic insufficiency 05/30/2015 06/05/2015 Overview: Markedly elevated LFTs, persistent coagulopathy and bleeding despite near- continuous trasnfusion of blood products. Also recurrent hypoglycemia requiring D50 boluses and D10W infusion. A/P: LFTs downtrending. 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 Progressively hypoxemic after arrival to ICU despite maximal MV support with lung protective ventilation and inhaled epoprostenol. NMB, inverted I:E ratio, high PEEP, low Vt with permissive hypercapnia only helped transiently. VV ECMO placed. Optimize vent settings, BPH, pain control, VV ECMO. Worsening lung compliance d/t hypervolemia (pulm edema) and/ or PGD. Continues on iFlolan. Switched to VA ECMO but maintaining very low Vt plus high PEEP. 06/03 Washout with VA ECMO weaned. VV ECMO initiated. S/p ECMO decannulation 06/15. S/p trach 06/19. Tolerated ~>11hrs on 07/06, but CXR with increased atelectasis following. A/P: CXR with bilateral opacities. Tolerating TC ATC. Continue TC, BPH, pain control, OOB. Consumption coagulopathy 05/29/2015 015 Overview: S/P Lung Transplant. Severe coagulopathic bleeding intraop and immediately postop. Received multiple blood products - plts, cryoppt, FFP and prbcs. Also rewarming for postop hypothermia. A/P: 4u pRBC and 2u platelets distribution coordinator to OR. PF4 antibody negative Chest remains open. Hypotension 05/29/2015 06/15/2015 Overview: Post Lung Tx. Severely vasoplegic intraop and immediately postop requiring multiple inopressors. Received methylene blue bolus intraop. Arrived ICU on epi, norepi, vasopressin and phenylephrine was added in ICU to maintain MAP >60mmHg. Wean for MAP 65 or greater. A/P: Off epi. Maintain MAPs 65-75. Acute blood loss anemia 05/29/2015 09/02/20 Overview: H/H remains low but stable. 07/10: H/H 6.6/21--transfused 1 unit 07/11: Transfused for 6.8.3 A/P: Monitor H/H, transfuse prn. Acute postoperative pain 05/29/2015 015 Overview: Post op lung Tx A/P: Dilaudid and acetaminophen prn for pain Immunosuppressed status 05/29/2015 09/02/20 Overview: S/p b/l lung transplant on 05/29/2015 -immunosuppression and antiimicrobial prophylaxis as per Transplant Pulmonology. -Cont Tac/MMF/Pred. 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 BP has been on the lower side. Oxygen requirement increased to 3L from 2 L Plan: - Will get repeat Echo with bubble study (last one from January 2015). - Place a PA cath and continue to diurese while monitoring her right heart pressures. - Will need IV lasix-received 80 IV lasix on 04/20 and 100 IV lasix on 04/21 - Continue spironolactone. JAMES (acute kidney injury) 04/21/20152014 Overview: Baseline Cr 0.9 (04/09) -> Cr up to 2.4. A/P: JAMES is likely 2/2 ATN given hypotension and hemorrhage. Balance volume repletion with diuresis --> Cr continues to downtrend 1.92 -->1.37 today. Nephrology following - Maintain MAP 65 or greater, avoid nephrotoxic agents. Continue Lasix drip Hyponatremia with excess extracellular fluid vol ume 04/21/2015 06/02/2015 Overview: Likely hypervolemic hyponatremia. Na improved form 126 to 130 this am. Patient is already on torsemide, spironolactone and metolazone at home. Plan: - Continue to diurese as kidney function allows. 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 - O2 requirements as needed (uses 2L NC at home at night). - Continue home O2 - Patient was seen by lung transplant team. Tests required include: Quantitative perfusion scan (done) Gastric emptying study, esophageal manometry and 24hr pH study (ordered) Dental consultation (will need to call ) Social Work (on board) Iron deficiency anemia 01/25/2013 7 Overview: Menstruating female with iron deficiency Cardiomegaly 01/25/2013 09/02/2015 Overview: -- RV enlargement due to PH Exertional dyspnea 01/25/2013 09/02/2015 Mediastinal adenopathy 01/25/2013 5 Hilar adenopathy 01/25/2013 08/21/2015 Overview: Noted on imaging- mother with a history of Sarcoid Could be 2/2 to chronic VTE and pHTN Lung nodules 01/25/2013 09/02/2015 Overview: Noted on imaging Follow Anticoagulation management encounter 01/25/2013 01/26/2013 SUMMARY 01/24/2013 02/02/2013 Overview: This is a 17 year old female with no significant PMH other than migraine and minimal allergies who developed significant SOB within the past 2 months, this progressed to the point where she was unable to walk up 2 flights of stairs and had mild chest pressure with activty. This worsened on a recent trip to [place] where she was on a 6 hour plane ride leading to a near syncopal episode. She presented ot her PCP for fatigue and was found to have anemia, elevated WBC count and on echo a elevated RVSP and dilated RV. She was sent for CT at her local Ed where she was found to have 2 small PE's. Patient sent for further evaluation. At admission upon review of her Ct there is no PE noted, she does however have significant cardiomegaly, increase RVSP and right atrial dilatation, will need to work up cause of PAH PAH (pulmonary artery hypertension) 01/24/2013 08/21/2015 Overview: Found to have elevated RVSP on echo with RV dilatation. ? Sarcoid as she has a family hx as well as polyarthralgia and fatigue - now with hilar lymphadenopathy RHC revealing PA HTN. 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 as angio was suggestive of multiple PEs small and chronic Plan: Further Remodulin titration as an out-patient q weekly, now on 7.5 ng/kg/min PET scan for VALERIA in the chest complete 530 Night sweats 01/24/2013 08/21/2015 Overview: Unclear etiology- Awaiting further PAH workup and Rheum w/u is neg so far documented as of this encounter (statuses as of 08/19/2022) [facility] History of Past illness Narrative* Problem Noted Date Resolved Date Abnormality of gait 12/24/2015 04/11/2017 Ascites 07/13/2015 08/21/2015 Overview: Abdominal distension 07/09 KUB: air in stomach, repeat on 07/11: no dilated loops of bowel 07/11: US abdomen + ascites 07/13 Paracentesis ~ 2L straw colored fluid A/P: Abdomen soft, distended. No c/o abd. fullness. Monitor. Seizure 06/22/2015 08/21/2015 Overview: 06/22/2015 0230 Sudden new onset seizures - with generalized rhythmic contractions of all extremities plus facial twitching. Treated lorazepam and midazolam. Stat head CT negative for bleed. No acute metabolic changes on ABG. Concern for withdrawal from opioids - had been on high dose fentanyl infusion for 3 weeks -infusion d'tabitha on 06/18/15. Neuro consulted and continuous EEG monitoring ordered. Cont vEEG showing mild diffuse encephalopathy but no epileptiform form activity. A/P:: No seizure activity since 06/22. Keppra discontinued per ALD. Abdominal distension 06/15/2015 06/16/2015 Overview: TF held. KUB pending. Fever 06/08/2015 08/21/2015 Overview: S/p CT chest/abd 06/18, which showed RLL collapse, with findings suggestive of necrotic PNA, and scattered upper lobe opacities; moderate ascites, cholelithiasis and gallbladder sludging without cholecystitis. Remains afebrile. No leukocytosis. - Urine cx (06/07), neg; Bld cx (06/11) x2 - NGTD - One blood culture (06/06) grew lactobacillus - Bld/UA cx drawn (06/16) - neg - BAL cx (06/20): smear shows GPC in clusters - Bld cx (06/21) NGTD Plan: - Meropenem stopped on 06/22 - Cont PO Vancomycin through hospitalization - F/u BAL cx (06/20) - Smear currently shows GPC in clusters but no organisms on culture; in the setting of resurgence of fevers, restarted on IV Vanc on 06/18->. Continue Vancomycin oral Mild protein-calorie malnutrition 06/04/2015 04/11/2017 Overview: Nutrition following. Ice chips only per beside swallow evaluation. Advanced to popcicle and applesauce 07/19 A/P: Tolerating TF via corpak at goal. Continue TF at current rate, monitor labs. Speech evaluation today Ischemia of hand 06/01/2015 06/05/2015 Overview: Radial a line removed- good doppler signals Rooke mittens placed Heparin infusion for goal pTT 45-55. Ischemia of lower extremity 06/01/201505/13 Overview: Left lower extremity ischemia, has regained DP/PT doppler signals, but calf muscles remains somewhat tense. A/P: CKs normalizing, will stop following CK levels at this time. Vascular surgery signing off, appreciate assistance. 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 Radial art line was in LUE. Art line removed and arterial duplex showed radial artery thrombosis with patent ulnar artery. Pt now with strong pulse in L radial artery. Thrombocytopenia 06/01/2015 06/08/2015 Overview: Required massive transfusion after OR, placed on [facility] ECMO. Likely consumptive coagulopathy, however PF4 antibody sent given recent initiation of heparin IV. A/P: -Appears to be resolving, platelets 98,000 today. Cardiac insufficiency following cardiac surgery 05/30/2015 06/15/2015 Overview: Severe RV, arrived from OR on iflolan and Epi. iFlolan weaned off A/P: Off epi and iFlolan. Open chest wound 05/30/2015 06/11/2015 Overview: S/p Lung Tx A/P: Dressing intact, continue ATBX while chest is open. Possible closure today Volume overload 05/30/2015 09/02/2015 Overview: + fluid balance due to multiple transfusions and volume replacement for shock in the early post op period. A/P: - 1.9 L/24hr. Continue diuresis, monitor UOP and labs. Personal history of ECMO 05/30/2015 015 Overview: VV ECMO on 05/30, Transitioned to VA ECMO 05/31. VA ECMO weaned 06/03, back on VV ECMO Decannulated on 06/15. Stress hyperglycemia 05/30/2015 06/11/2015 Overview: S/P Lung Tx A/P: Stress hyperglycemia exacerbated by surgery and pressors. RHI infusion for glycemic control. Shock liver - hepatic insufficiency 05/30/2015 06/05/2015 Overview: Markedly elevated LFTs, persistent coagulopathy and bleeding despite near- continuous trasnfusion of blood products. Also recurrent hypoglycemia requiring D50 boluses and D10W infusion. A/P: LFTs downtrending. 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 Progressively hypoxemic after arrival to ICU despite maximal MV support with lung protective ventilation and inhaled epoprostenol. NMB, inverted I:E ratio, high PEEP, low Vt with permissive hypercapnia only helped transiently. VV ECMO placed. Optimize vent settings, BPH, pain control, VV ECMO. Worsening lung compliance d/t hypervolemia (pulm edema) and/ or PGD. Continues on iFlolan. Switched to VA ECMO but maintaining very low Vt plus high PEEP. 06/03 Washout with VA ECMO weaned. VV ECMO initiated. S/p ECMO decannulation 06/15. S/p trach 06/19. Tolerated ~>11hrs on 07/06, but CXR with increased atelectasis following. A/P: CXR with bilateral opacities. Tolerating TC ATC. Continue TC, BPH, pain control, OOB. Consumption coagulopathy 05/29/2015 015 Overview: S/P Lung Transplant. Severe coagulopathic bleeding intraop and immediately postop. Received multiple blood products - plts, cryoppt, FFP and prbcs. Also rewarming for postop hypothermia. A/P: 4u pRBC and 2u platelets distribution coordinator to OR. PF4 antibody negative Chest remains open. Hypotension 05/29/2015 06/15/2015 Overview: Post Lung Tx. Severely vasoplegic intraop and immediately postop requiring multiple inopressors. Received methylene blue bolus intraop. Arrived ICU on epi, norepi, vasopressin and phenylephrine was added in ICU to maintain MAP >60mmHg. Wean for MAP 65 or greater. A/P: Off epi. Maintain MAPs 65-75. Acute blood loss anemia 05/29/2015 09/02/20 15 Overview: H/H remains low but stable. 07/10: H/H 6.6/21--transfused 1 unit 07/11: Transfused for 6.8/21.3 A/P: Monitor H/H, transfuse prn. Acute postoperative pain 05/29/2015 015 Overview: Post op lung Tx A/P: Dilaudid and acetaminophen prn for pain Immunosuppressed status 05/29/2015 09/02/20 15 Overview: S/p b/l lung transplant on 05/29/2015 -immunosuppression and antiimicrobial prophylaxis as per Transplant Pulmonology. -Cont Tac/MMF/Pred. 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 BP has been on the lower side. Oxygen requirement increased to 3L from 2 L Plan: - Will get repeat Echo with bubble study (last one from January 2015). - Place a PA cath and continue to diurese while monitoring her right heart pressures. - Will need IV lasix-received 80 IV lasix on 04/20 and 100 IV lasix on 04/21 - Continue spironolactone. JAMES (acute kidney injury) 04/21/20152014 Overview: Baseline Cr 0.9 (04/09) -> Cr up to 2.4. A/P: JAMES is likely 2/2 ATN given hypotension and hemorrhage. Balance volume repletion with diuresis --> Cr continues to downtrend 1.92 -->1.37 today. Nephrology following - Maintain MAP 65 or greater, avoid nephrotoxic agents. Continue Lasix drip Hyponatremia with excess extracellular fluid vol ume 04/21/2015 06/02/2015 Overview: Likely hypervolemic hyponatremia. Na improved form 126 to 130 this am. Patient is already on torsemide, spironolactone and metolazone at home. Plan: - Continue to diurese as kidney function allows. 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 - O2 requirements as needed (uses 2L NC at home at night). - Continue home O2 - Patient was seen by lung transplant team. Tests required include: Quantitative perfusion scan (done) Gastric emptying study, esophageal manometry and 24hr pH study (ordered) Dental consultation (will need to call ) Social Work (on board) Iron deficiency anemia 01/25/2013 7 Overview: Menstruating female with iron deficiency Cardiomegaly 01/25/2013 09/02/2015 Overview: -- RV enlargement due to PH Exertional dyspnea 01/25/2013 09/02/2015 Mediastinal adenopathy 01/25/2013 5 Hilar adenopathy 01/25/2013 08/21/2015 Overview: Noted on imaging- mother with a history of Sarcoid Could be 2/2 to chronic VTE and pHTN Lung nodules 01/25/2013 09/02/2015 Overview: Noted on imaging Follow Anticoagulation management encounter 01/25/2013 01/26/2013 SUMMARY 01/24/2013 02/02/2013 Overview: This is a 17 year old female with no significant PMH other than migraine and minimal allergies who developed significant SOB within the past 2 months, this progressed to the point where she was unable to walk up 2 flights of stairs and had mild chest pressure with activty. This worsened on a recent trip to [place] where she was on a 6 hour plane ride leading to a near syncopal episode. She presented ot her PCP for fatigue and was found to have anemia, elevated WBC count and on echo a elevated RVSP and dilated RV. She was sent for CT at her local Ed where she was found to have 2 small PE's. Patient sent for further evaluation. At admission upon review of her Ct there is no PE noted, she does however have significant cardiomegaly, increase RVSP and right atrial dilatation, will need to work up cause of PAH PAH (pulmonary artery hypertension) 01/24/2013 08/21/2015 Overview: Found to have elevated RVSP on echo with RV dilatation. ? Sarcoid as she has a family hx as well as polyarthralgia and fatigue - now with hilar lymphadenopathy RHC revealing PA HTN. 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 as angio was suggestive of multiple PEs small and chronic Plan: Further Remodulin titration as an out-patient q weekly, now on 7.5 ng/kg/min PET scan for VALERIA in the chest complete 02/07 Night sweats 01/24/2013 08/21/2015 Overview: Unclear etiology- Awaiting further PAH workup and Rheum w/u is neg so far documented as of this encounter (statuses as of 09/02/2022) [facility] History of Past illness Narrative* Problem Noted Date Resolved Date Abnormality of gait 12/24/2015 04/11/2017 Ascites 07/13/2015 08/21/2015 Overview: Abdominal distension 07/09 KUB: air in stomach, repeat on 07/11: no dilated loops of bowel 07/11: US abdomen + ascites 07/13 Paracentesis ~ 2L straw colored fluid A/P: Abdomen soft, distended. No c/o abd. fullness. Monitor. Seizure 06/22/2015 08/21/2015 Overview: 06/22/2015 0230 Sudden new onset seizures - with generalized rhythmic contractions of all extremities plus facial twitching. Treated lorazepam and midazolam. Stat head CT negative for bleed. No acute metabolic changes on ABG. Concern for withdrawal from opioids - had been on high dose fentanyl infusion for 3 weeks -infusion d'tabitha on 06/18/15. Neuro consulted and continuous EEG monitoring ordered. Cont vEEG showing mild diffuse encephalopathy but no epileptiform form activity. A/P:: No seizure activity since 06/22. Keppra discontinued per ALD. Abdominal distension 06/15/2015 06/16/2015 Overview: TF held. KUB pending. Fever 06/08/2015 08/21/2015 Overview: S/p CT chest/abd 06/18, which showed RLL collapse, with findings suggestive of necrotic PNA, and scattered upper lobe opacities; moderate ascites, cholelithiasis and gallbladder sludging without cholecystitis. Remains afebrile. No leukocytosis. - Urine cx (06/07), neg; Bld cx (06/11) x2 - NGTD - One blood culture (06/06) grew lactobacillus - Bld/UA cx drawn (06/16) - neg - BAL cx (06/20): smear shows GPC in clusters - Bld cx (06/21) NGTD Plan: - Meropenem stopped on 06/22 - Cont PO Vancomycin through hospitalization - F/u BAL cx (06/20) - Smear currently shows GPC in clusters but no organisms on culture; in the setting of resurgence of fevers, restarted on IV Vanc on 06/18->. Continue Vancomycin oral Mild protein-calorie malnutrition 06/04/2015 04/11/2017 Overview: Nutrition following. Ice chips only per beside swallow evaluation. Advanced to popcicle and applesauce 07/19 A/P: Tolerating TF via corpak at goal. Continue TF at current rate, monitor labs. Speech evaluation today Ischemia of hand 06/01/2015 06/05/2015 Overview: Radial a line removed- good doppler signals Rooke mittens placed Heparin infusion for goal pTT 45-55. Ischemia of lower extremity 06/01/201505/13 Overview: Left lower extremity ischemia, has regained DP/PT doppler signals, but calf muscles remains somewhat tense. A/P: CKs normalizing, will stop following CK levels at this time. Vascular surgery signing off, appreciate assistance. 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 Radial art line was in LUE. Art line removed and arterial duplex showed radial artery thrombosis with patent ulnar artery. Pt now with strong pulse in L radial artery. Thrombocytopenia 06/01/2015 06/08/2015 Overview: Required massive transfusion after OR, placed on VA ECMO. Likely consumptive coagulopathy, however PF4 antibody sent given recent initiation of heparin IV. A/P: -Appears to be resolving, platelets 98,000 today. Cardiac insufficiency following cardiac surgery 05/30/2015 06/15/2015 Overview: Severe RV, arrived from OR on iflolan and Epi. iFlolan weaned off A/P: Off epi and iFlolan. Open chest wound 05/30/2015 06/11/2015 Overview: S/p Lung Tx A/P: Dressing intact, continue ATBX while chest is open. Possible closure today Volume overload 05/30/2015 09/02/2015 Overview: + fluid balance due to multiple transfusions and volume replacement for shock in the early post op period. A/P: - 1.9 L/24hr. Continue diuresis, monitor UOP and labs. Personal history of ECMO 05/30/2015 015 Overview: VV ECMO on 05/30, Transitioned to VA ECMO 05/31. VA ECMO weaned 06/03, back on VV ECMO Decannulated on 06/15. Stress hyperglycemia 05/30/2015 06/11/2015 Overview: S/P Lung Tx A/P: Stress hyperglycemia exacerbated by surgery and pressors. RHI infusion for glycemic control. Shock liver - hepatic insufficiency 05/30/2015 06/05/2015 Overview: Markedly elevated LFTs, persistent coagulopathy and bleeding despite near- continuous trasnfusion of blood products. Also recurrent hypoglycemia requiring D50 boluses and D10W infusion. A/P: LFTs downtrending. 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 Progressively hypoxemic after arrival to ICU despite maximal MV support with lung protective ventilation and inhaled epoprostenol. NMB, inverted I:E ratio, high PEEP, low Vt with permissive hypercapnia only helped transiently. VV ECMO placed. Optimize vent settings, BPH, pain control, VV ECMO. Worsening lung compliance d/t hypervolemia (pulm edema) and/ or PGD. Continues on iFlolan. Switched to VA ECMO but maintaining very low Vt plus high PEEP. 06/03 Washout with VA ECMO weaned. VV ECMO initiated. S/p ECMO decannulation 06/15. S/p trach 06/19. Tolerated ~>11hrs on 07/06, but CXR with increased atelectasis following. A/P: CXR with bilateral opacities. Tolerating TC ATC. Continue TC, BPH, pain control, OOB. Consumption coagulopathy 05/29/2015 015 Overview: S/P Lung Transplant. Severe coagulopathic bleeding intraop and immediately postop. Received multiple blood products - plts, cryoppt, FFP and prbcs. Also rewarming for postop hypothermia. A/P: 4u pRBC and 2u platelets distribution coordinator to OR. PF4 antibody negative Chest remains open. Hypotension 05/29/2015 06/15/2015 Overview: Post Lung Tx. Severely vasoplegic intraop and immediately postop requiring multiple inopressors. Received methylene blue bolus intraop. Arrived ICU on epi, norepi, vasopressin and phenylephrine was added in ICU to maintain MAP >60mmHg. Wean for MAP 65 or greater. A/P: Off epi. Maintain MAPs 65-75. Acute blood loss anemia 05/29/2015 09/02/20 15 Overview: H/H remains low but stable. 07/10: H/H 6.6/21--transfused 1 unit 07/11: Transfused for 6.8/21.3 A/P: Monitor H/H, transfuse prn. Acute postoperative pain 05/29/2015 015 Overview: Post op lung Tx A/P: Dilaudid and acetaminophen prn for pain Immunosuppressed status 05/29/2015 09/02/20 15 Overview: S/p b/l lung transplant on 05/29/2015 -immunosuppression and antiimicrobial prophylaxis as per Transplant Pulmonology. -Cont Tac/MMF/Pred. 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 BP has been on the lower side. Oxygen requirement increased to 3L from 2 L Plan: - Will get repeat Echo with bubble study (last one from January 2015). - Place a PA cath and continue to diurese while monitoring her right heart pressures. - Will need IV lasix-received 80 IV lasix on 04/20 and 100 IV lasix on 04/21 - Continue spironolactone. JAMES (acute kidney injury) 04/21/20152014 Overview: Baseline Cr 0.9 (04/09) -> Cr up to 2.4. A/P: JAMES is likely 2/2 ATN given hypotension and hemorrhage. Balance volume repletion with diuresis --> Cr continues to downtrend 1.92 -->1.37 today. Nephrology following - Maintain MAP 65 or greater, avoid nephrotoxic agents. Continue Lasix drip Hyponatremia with excess extracellular fluid vol ume 04/21/2015 06/02/2015 Overview: Likely hypervolemic hyponatremia. Na improved form 126 to 130 this am. Patient is already on torsemide, spironolactone and metolazone at home. Plan: - Continue to diurese as kidney function allows. 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 - O2 requirements as needed (uses 2L NC at home at night). - Continue home O2 - Patient was seen by lung transplant team. Tests required include: Quantitative perfusion scan (done) Gastric emptying study, esophageal manometry and 24hr pH study (ordered) Dental consultation (will need to call ) Social Work (on board) Iron deficiency anemia 01/25/2013 7 Overview: Menstruating female with iron deficiency Cardiomegaly 01/25/2013 09/02/2015 Overview: -- RV enlargement due to PH Exertional dyspnea 01/25/2013 09/02/2015 Mediastinal adenopathy 01/25/2013 5 Hilar adenopathy 01/25/2013 08/21/2015 Overview: Noted on imaging- mother with a history of Sarcoid Could be 2/2 to chronic VTE and pHTN Lung nodules 01/25/2013 09/02/2015 Overview: Noted on imaging Follow Anticoagulation management encounter 01/25/2013 01/26/2013 SUMMARY 01/24/2013 02/02/2013 Overview: This is a 17 year old female with no significant PMH other than migraine and minimal allergies who developed significant SOB within the past 2 months, this progressed to the point where she was unable to walk up 2 flights of stairs and had mild chest pressure with activty. This worsened on a recent trip to [place] where she was on a 6 hour plane ride leading to a near syncopal episode. She presented ot her PCP for fatigue and was found to have anemia, elevated WBC count and on echo a elevated RVSP and dilated RV. She was sent for CT at her local Ed where she was found to have 2 small PE's. Patient sent for further evaluation. At admission upon review of her Ct there is no PE noted, she does however have significant cardiomegaly, increase RVSP and right atrial dilatation, will need to work up cause of PAH PAH (pulmonary artery hypertension) 01/24/2013 08/21/2015 Overview: Found to have elevated RVSP on echo with RV dilatation. ? Sarcoid as she has a family hx as well as polyarthralgia and fatigue - now with hilar lymphadenopathy RHC revealing PA HTN. 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 as angio was suggestive of multiple PEs small and chronic Plan: Further Remodulin titration as an out-patient q weekly, now on 7.5 ng/kg/min PET scan for VALERIA in the chest complete 02/07 Night sweats 01/24/2013 08/21/2015 Overview: Unclear etiology- Awaiting further PAH workup and Rheum w/u is neg so far documented as of this encounter (statuses as of 09/16/2022) [facility] History of Past illness Narrative* Problem Noted Date Resolved Date Abnormality of gait 12/24/2015 04/11/2017 Ascites 07/13/2015 08/21/2015 Overview: Abdominal distension 07/09 KUB: air in stomach, repeat on 07/11: no dilated loops of bowel 07/11: US abdomen + ascites 07/13 Paracentesis ~ 2L straw colored fluid A/P: Abdomen soft, distended. No c/o abd. fullness. Monitor. Seizure 06/22/2015 08/21/2015 Overview: 06/22/2015 0230 Sudden new onset seizures - with generalized rhythmic contractions of all extremities plus facial twitching. Treated lorazepam and midazolam. Stat head CT negative for bleed. No acute metabolic changes on ABG. Concern for withdrawal from opioids - had been on high dose fentanyl infusion for 3 weeks -infusion d'tabitha on 06/18/15. Neuro consulted and continuous EEG monitoring ordered. Cont vEEG showing mild diffuse encephalopathy but no epileptiform form activity. A/P:: No seizure activity since 06/22. Keppra discontinued per ALD. Abdominal distension 06/15/2015 06/16/2015 Overview: TF held. KUB pending. Fever 06/08/2015 08/21/2015 Overview: S/p CT chest/abd 06/18, which showed RLL collapse, with findings suggestive of necrotic PNA, and scattered upper lobe opacities; moderate ascites, cholelithiasis and gallbladder sludging without cholecystitis. Remains afebrile. No leukocytosis. - Urine cx (06/07), neg; Bld cx (06/11) x2 - NGTD - One blood culture (06/06) grew lactobacillus - Bld/UA cx drawn (06/16) - neg - BAL cx (06/20): smear shows GPC in clusters - Bld cx (06/21) NGTD Plan: - Meropenem stopped on 06/22 - Cont PO Vancomycin through hospitalization - F/u BAL cx (06/20) - Smear currently shows GPC in clusters but no organisms on culture; in the setting of resurgence of fevers, restarted on IV Vanc on 06/18->. Continue Vancomycin oral Mild protein-calorie malnutrition 06/04/2015 04/11/2017 Overview: Nutrition following. Ice chips only per beside swallow evaluation. Advanced to popcicle and applesauce 07/19 A/P: Tolerating TF via corpak at goal. Continue TF at current rate, monitor labs. Speech evaluation today Ischemia of hand 06/01/2015 06/05/2015 Overview: Radial a line removed- good doppler signals Dexter ndiaye placed Heparin infusion for goal pTT 45-55. Ischemia of lower extremity 06/01/201505/13 Overview: Left lower extremity ischemia, has regained DP/PT doppler signals, but calf muscles remains somewhat tense. A/P: CKs normalizing, will stop following CK levels at this time. Vascular surgery signing off, appreciate assistance. 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 Radial art line was in LUE. Art line removed and arterial duplex showed radial artery thrombosis with patent ulnar artery. Pt now with strong pulse in L radial artery. Thrombocytopenia 06/01/2015 06/08/2015 Overview: Required massive transfusion after OR, placed on VA ECMO. Likely consumptive coagulopathy, however PF4 antibody sent given recent initiation of heparin IV. A/P: -Appears to be resolving, platelets 98,000 today. Cardiac insufficiency following cardiac surgery 05/30/2015 06/15/2015 Overview: Severe RV, arrived from OR on iflolan and Epi. iFlolan weaned off A/P: Off epi and iFlolan. Open chest wound 05/30/2015 06/11/2015 Overview: S/p Lung Tx A/P: Dressing intact, continue ATBX while chest is open. Possible closure today Volume overload 05/30/2015 09/02/2015 Overview: + fluid balance due to multiple transfusions and volume replacement for shock in the early post op period. A/P: - 1.9 L/24hr. Continue diuresis, monitor UOP and labs. Personal history of ECMO 05/30/2015 015 Overview: VV ECMO on 05/30, Transitioned to VA ECMO 05/31. VA ECMO weaned 06/03, back on VV ECMO Decannulated on 06/15. Stress hyperglycemia 05/30/2015 06/11/2015 Overview: S/P Lung Tx A/P: Stress hyperglycemia exacerbated by surgery and pressors. RHI infusion for glycemic control. Shock liver - hepatic insufficiency 05/30/2015 06/05/2015 Overview: Markedly elevated LFTs, persistent coagulopathy and bleeding despite near- continuous trasnfusion of blood products. Also recurrent hypoglycemia requiring D50 boluses and D10W infusion. A/P: LFTs downtrending. 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 Progressively hypoxemic after arrival to ICU despite maximal MV support with lung protective ventilation and inhaled epoprostenol. NMB, inverted I:E ratio, high PEEP, low Vt with permissive hypercapnia only helped transiently. VV ECMO placed. Optimize vent settings, BPH, pain control, VV ECMO. Worsening lung compliance d/t hypervolemia (pulm edema) and/ or PGD. Continues on iFlolan. Switched to VA ECMO but maintaining very low Vt plus high PEEP. 06/03 Washout with VA ECMO weaned. VV ECMO initiated. S/p ECMO decannulation 06/15. S/p trach 06/19. Tolerated ~>11hrs on 07/06, but CXR with increased atelectasis following. A/P: CXR with bilateral opacities. Tolerating TC ATC. Continue TC, BPH, pain control, OOB. Consumption coagulopathy 05/29/2015 015 Overview: S/P Lung Transplant. Severe coagulopathic bleeding intraop and immediately postop. Received multiple blood products - plts, cryoppt, FFP and prbcs. Also rewarming for postop hypothermia. A/P: 4u pRBC and 2u platelets distribution coordinator to OR. PF4 antibody negative Chest remains open. Hypotension 05/29/2015 06/15/2015 Overview: Post Lung Tx. Severely vasoplegic intraop and immediately postop requiring multiple inopressors. Received methylene blue bolus intraop. Arrived ICU on epi, norepi, vasopressin and phenylephrine was added in ICU to maintain MAP >60mmHg. Wean for MAP 65 or greater. A/P: Off epi. Maintain MAPs 65-75. Acute blood loss anemia 05/29/2015 09/02/20 15 Overview: H/H remains low but stable. 07/10: H/H 6.6/21--transfused 1 unit 07/11: Transfused for 6.8/.3 A/P: Monitor H/H, transfuse prn. Acute postoperative pain 05/29/2015 015 Overview: Post op lung Tx A/P: Dilaudid and acetaminophen prn for pain Immunosuppressed status 05/29/2015 09/02/20 15 Overview: S/p b/l lung transplant on 05/29/2015 -immunosuppression and antiimicrobial prophylaxis as per Transplant Pulmonology. -Cont Tac/MMF/Pred. 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 BP has been on the lower side. Oxygen requirement increased to 3L from 2 L Plan: - Will get repeat Echo with bubble study (last one from January 2015). - Place a PA cath and continue to diurese while monitoring her right heart pressures. - Will need IV lasix-received 80 IV lasix on 04/20 and 100 IV lasix on 04/21 - Continue spironolactone. JAMES (acute kidney injury) 04/21/20152014 Overview: Baseline Cr 0.9 (04/09) -> Cr up to 2.4. A/P: JAMES is likely 2/2 ATN given hypotension and hemorrhage. Balance volume repletion with diuresis --> Cr continues to downtrend 1.92 -->1.37 today. Nephrology following - Maintain MAP 65 or greater, avoid nephrotoxic agents. Continue Lasix drip Hyponatremia with excess extracellular fluid vol ume 04/21/2015 06/02/2015 Overview: Likely hypervolemic hyponatremia. Na improved form 126 to 130 this am. Patient is already on torsemide, spironolactone and metolazone at home. Plan: - Continue to diurese as kidney function allows. 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 - O2 requirements as needed (uses 2L NC at home at night). - Continue home O2 - Patient was seen by lung transplant team. Tests required include: Quantitative perfusion scan (done) Gastric emptying study, esophageal manometry and 24hr pH study (ordered) Dental consultation (will need to call ) Social Work (on board) Iron deficiency anemia 01/25/2013 7 Overview: Menstruating female with iron deficiency Cardiomegaly 01/25/2013 09/02/2015 Overview: -- RV enlargement due to PH Exertional dyspnea 01/25/2013 09/02/2015 Mediastinal adenopathy 01/25/2013 5 Hilar adenopathy 01/25/2013 08/21/2015 Overview: Noted on imaging- mother with a history of Sarcoid Could be 2/2 to chronic VTE and pHTN Lung nodules 01/25/2013 09/02/2015 Overview: Noted on imaging Follow Anticoagulation management encounter 01/25/2013 01/26/2013 SUMMARY 01/24/2013 02/02/2013 Overview: This is a 17 year old female with no significant PMH other than migraine and minimal allergies who developed significant SOB within the past 2 months, this progressed to the point where she was unable to walk up 2 flights of stairs and had mild chest pressure with activty. This worsened on a recent trip to [place] where she was on a 6 hour plane ride leading to a near syncopal episode. She presented ot her PCP for fatigue and was found to have anemia, elevated WBC count and on echo a elevated RVSP and dilated RV. She was sent for CT at her local Ed where she was found to have 2 small PE's. Patient sent for further evaluation. At admission upon review of her Ct there is no PE noted, she does however have significant cardiomegaly, increase RVSP and right atrial dilatation, will need to work up cause of PAH PAH (pulmonary artery hypertension) 01/24/2013 08/21/2015 Overview: Found to have elevated RVSP on echo with RV dilatation. ? Sarcoid as she has a family hx as well as polyarthralgia and fatigue - now with hilar lymphadenopathy RHC revealing PA HTN. 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 as angio was suggestive of multiple PEs small and chronic Plan: Further Remodulin titration as an out-patient q weekly, now on 7.5 ng/kg/min PET scan for VALERIA in the chest complete 02/07 Night sweats 01/24/2013 08/21/2015 Overview: Unclear etiology- Awaiting further PAH workup and Rheum w/u is neg so far documented as of this encounter (statuses as of 09/29/2022) [facility] History of Past illness Narrative* Problem Noted Date Resolved Date Abnormality of gait 12/24/2015 04/11/2017 Ascites 07/13/2015 08/21/2015 Overview: Abdominal distension 07/09 KUB: air in stomach, repeat on 07/11: no dilated loops of bowel 07/11: US abdomen + ascites 07/13 Paracentesis ~ 2L straw colored fluid A/P: Abdomen soft, distended. No c/o abd. fullness. Monitor. Seizure 06/22/2015 08/21/2015 Overview: 06/22/2015 0230 Sudden new onset seizures - with generalized rhythmic contractions of all extremities plus facial twitching. Treated lorazepam and midazolam. Stat head CT negative for bleed. No acute metabolic changes on ABG. Concern for withdrawal from opioids - had been on high dose fentanyl infusion for 3 weeks -infusion d'tabitha on 06/18/15. Neuro consulted and continuous EEG monitoring ordered. Cont vEEG showing mild diffuse encephalopathy but no epileptiform form activity. A/P:: No seizure activity since 06/22. Keppra discontinued per ALD. Abdominal distension 06/15/2015 06/16/2015 Overview: TF held. KUB pending. Fever 06/08/2015 08/21/2015 Overview: S/p CT chest/abd 06/18, which showed RLL collapse, with findings suggestive of necrotic PNA, and scattered upper lobe opacities; moderate ascites, cholelithiasis and gallbladder sludging without cholecystitis. Remains afebrile. No leukocytosis. - Urine cx (06/07), neg; Bld cx (06/11) x2 - NGTD - One blood culture (06/06) grew lactobacillus - Bld/UA cx drawn (06/16) - neg - BAL cx (06/20): smear shows GPC in clusters - Bld cx (06/21) NGTD Plan: - Meropenem stopped on 06/22 - Cont PO Vancomycin through hospitalization - F/u BAL cx (06/20) - Smear currently shows GPC in clusters but no organisms on culture; in the setting of resurgence of fevers, restarted on IV Vanc on 06/18->. Continue Vancomycin oral Mild protein-calorie malnutrition 06/04/2015 04/11/2017 Overview: Nutrition following. Ice chips only per beside swallow evaluation. Advanced to popcicle and applesauce 07/19 A/P: Tolerating TF via corpak at goal. Continue TF at current rate, monitor labs. Speech evaluation today Ischemia of hand 06/01/2015 06/05/2015 Overview: Radial a line removed- good doppler signals Rooke mittens placed Heparin infusion for goal pTT 45-55. Ischemia of lower extremity 06/01/201505/13 Overview: Left lower extremity ischemia, has regained DP/PT doppler signals, but calf muscles remains somewhat tense. A/P: CKs normalizing, will stop following CK levels at this time. Vascular surgery signing off, appreciate assistance. 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 Radial art line was in LUE. Art line removed and arterial duplex showed radial artery thrombosis with patent ulnar artery. Pt now with strong pulse in L radial artery. Thrombocytopenia 06/01/2015 06/08/2015 Overview: Required massive transfusion after OR, placed on [facility] ECMO. Likely consumptive coagulopathy, however PF4 antibody sent given recent initiation of heparin IV. A/P: -Appears to be resolving, platelets 98,000 today. Cardiac insufficiency following cardiac surgery 05/30/2015 06/15/2015 Overview: Severe RV, arrived from OR on iflolan and Epi. iFlolan weaned off A/P: Off epi and iFlolan. Open chest wound 05/30/2015 06/11/2015 Overview: S/p Lung Tx A/P: Dressing intact, continue ATBX while chest is open. Possible closure today Volume overload 05/30/2015 09/02/2015 Overview: + fluid balance due to multiple transfusions and volume replacement for shock in the early post op period. A/P: - 1.9 L/24hr. Continue diuresis, monitor UOP and labs. Personal history of ECMO 05/30/2015 015 Overview: VV ECMO on 05/30, Transitioned to VA ECMO 05/31. VA ECMO weaned 06/03, back on VV ECMO Decannulated on 06/15. Stress hyperglycemia 05/30/2015 06/11/2015 Overview: S/P Lung Tx A/P: Stress hyperglycemia exacerbated by surgery and pressors. RHI infusion for glycemic control. Shock liver - hepatic insufficiency 05/30/2015 06/05/2015 Overview: Markedly elevated LFTs, persistent coagulopathy and bleeding despite near- continuous trasnfusion of blood products. Also recurrent hypoglycemia requiring D50 boluses and D10W infusion. A/P: LFTs downtrending. 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 Progressively hypoxemic after arrival to ICU despite maximal MV support with lung protective ventilation and inhaled epoprostenol. NMB, inverted I:E ratio, high PEEP, low Vt with permissive hypercapnia only helped transiently. VV ECMO placed. Optimize vent settings, BPH, pain control, VV ECMO. Worsening lung compliance d/t hypervolemia (pulm edema) and/ or PGD. Continues on iFlolan. Switched to VA ECMO but maintaining very low Vt plus high PEEP. 06/03 Washout with VA ECMO weaned. VV ECMO initiated. S/p ECMO decannulation 06/15. S/p trach 06/19. Tolerated ~>11hrs on 07/06, but CXR with increased atelectasis following. A/P: CXR with bilateral opacities. Tolerating TC ATC. Continue TC, BPH, pain control, OOB. Consumption coagulopathy 05/29/2015 015 Overview: S/P Lung Transplant. Severe coagulopathic bleeding intraop and immediately postop. Received multiple blood products - plts, cryoppt, FFP and prbcs. Also rewarming for postop hypothermia. A/P: 4u pRBC and 2u platelets distribution coordinator to OR. PF4 antibody negative Chest remains open. Hypotension 05/29/2015 06/15/2015 Overview: Post Lung Tx. Severely vasoplegic intraop and immediately postop requiring multiple inopressors. Received methylene blue bolus intraop. Arrived ICU on epi, norepi, vasopressin and phenylephrine was added in ICU to maintain MAP >60mmHg. Wean for MAP 65 or greater. A/P: Off epi. Maintain MAPs 65-75. Acute blood loss anemia 05/29/2015 09/02/20 15 Overview: H/H remains low but stable. 07/10: H/H 6.6/--transfused 1 unit 07/11: Transfused for 6.8.3 A/P: Monitor H/H, transfuse prn. Acute postoperative pain 05/29/2015 015 Overview: Post op lung Tx A/P: Dilaudid and acetaminophen prn for pain Immunosuppressed status 05/29/2015 09/02/20 15 Overview: S/p b/l lung transplant on 05/29/2015 -immunosuppression and antiimicrobial prophylaxis as per Transplant Pulmonology. -Cont Tac/MMF/Pred. 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 BP has been on the lower side. Oxygen requirement increased to 3L from 2 L Plan: - Will get repeat Echo with bubble study (last one from January 2015). - Place a PA cath and continue to diurese while monitoring her right heart pressures. - Will need IV lasix-received 80 IV lasix on 04/20 and 100 IV lasix on 04/21 - Continue spironolactone. JAMES (acute kidney injury) 04/21/20152014 Overview: Baseline Cr 0.9 (04/09) -> Cr up to 2.4. A/P: JAMES is likely 2/2 ATN given hypotension and hemorrhage. Balance volume repletion with diuresis --> Cr continues to downtrend 1.92 -->1.37 today. Nephrology following - Maintain MAP 65 or greater, avoid nephrotoxic agents. Continue Lasix drip Hyponatremia with excess extracellular fluid vol ume 04/21/2015 06/02/2015 Overview: Likely hypervolemic hyponatremia. Na improved form 126 to 130 this am. Patient is already on torsemide, spironolactone and metolazone at home. Plan: - Continue to diurese as kidney function allows. 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 - O2 requirements as needed (uses 2L NC at home at night). - Continue home O2 - Patient was seen by lung transplant team. Tests required include: Quantitative perfusion scan (done) Gastric emptying study, esophageal manometry and 24hr pH study (ordered) Dental consultation (will need to call ) Social Work (on board) Iron deficiency anemia 01/25/2013 7 Overview: Menstruating female with iron deficiency Cardiomegaly 01/25/2013 09/02/2015 Overview: -- RV enlargement due to PH Exertional dyspnea 01/25/2013 09/02/2015 Mediastinal adenopathy 01/25/2013 5 Hilar adenopathy 01/25/2013 08/21/2015 Overview: Noted on imaging- mother with a history of Sarcoid Could be 2/2 to chronic VTE and pHTN Lung nodules 01/25/2013 09/02/2015 Overview: Noted on imaging Follow Anticoagulation management encounter 01/25/2013 01/26/2013 SUMMARY 01/24/2013 02/02/2013 Overview: This is a 17 year old female with no significant PMH other than migraine and minimal allergies who developed significant SOB within the past 2 months, this progressed to the point where she was unable to walk up 2 flights of stairs and had mild chest pressure with activty. This worsened on a recent trip to [place] where she was on a 6 hour plane ride leading to a near syncopal episode. She presented ot her PCP for fatigue and was found to have anemia, elevated WBC count and on echo a elevated RVSP and dilated RV. She was sent for CT at her local Ed where she was found to have 2 small PE's. Patient sent for further evaluation. At admission upon review of her Ct there is no PE noted, she does however have significant cardiomegaly, increase RVSP and right atrial dilatation, will need to work up cause of PAH PAH (pulmonary artery hypertension) 01/24/2013 08/21/2015 Overview: Found to have elevated RVSP on echo with RV dilatation. ? Sarcoid as she has a family hx as well as polyarthralgia and fatigue - now with hilar lymphadenopathy RHC revealing PA HTN. 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 as angio was suggestive of multiple PEs small and chronic Plan: Further Remodulin titration as an out-patient q weekly, now on 7.5 ng/kg/min PET scan for VALERIA in the chest complete 02/07 Night sweats 01/24/2013 08/21/2015 Overview: Unclear etiology- Awaiting further PAH workup and Rheum w/u is neg so far documented as of this encounter (statuses as of 09/29/2022) [facility] History of Past illness Narrative* Problem Noted Date Resolved Date Abnormality of gait 12/24/2015 04/11/2017 Ascites 07/13/2015 08/21/2015 Overview: Abdominal distension 07/09 KUB: air in stomach, repeat on 07/11: no dilated loops of bowel 07/11: US abdomen + ascites 07/13 Paracentesis ~ 2L straw colored fluid A/P: Abdomen soft, distended. No c/o abd. fullness. Monitor. Seizure 06/22/2015 08/21/2015 Overview: 06/22/2015 0230 Sudden new onset seizures - with generalized rhythmic contractions of all extremities plus facial twitching. Treated lorazepam and midazolam. Stat head CT negative for bleed. No acute metabolic changes on ABG. Concern for withdrawal from opioids - had been on high dose fentanyl infusion for 3 weeks -infusion d'tabitha on 06/18/15. Neuro consulted and continuous EEG monitoring ordered. Cont vEEG showing mild diffuse encephalopathy but no epileptiform form activity. A/P:: No seizure activity since 06/22. Keppra discontinued per ALD. Abdominal distension 06/15/2015 06/16/2015 Overview: TF held. KUB pending. Fever 06/08/2015 08/21/2015 Overview: S/p CT chest/abd 06/18, which showed RLL collapse, with findings suggestive of necrotic PNA, and scattered upper lobe opacities; moderate ascites, cholelithiasis and gallbladder sludging without cholecystitis. Remains afebrile. No leukocytosis. - Urine cx (06/07), neg; Bld cx (06/11) x2 - NGTD - One blood culture (06/06) grew lactobacillus - Bld/UA cx drawn (06/16) - neg - BAL cx (06/20): smear shows GPC in clusters - Bld cx (06/21) NGTD Plan: - Meropenem stopped on 06/22 - Cont PO Vancomycin through hospitalization - F/u BAL cx (06/20) - Smear currently shows GPC in clusters but no organisms on culture; in the setting of resurgence of fevers, restarted on IV Vanc on 06/18->. Continue Vancomycin oral Mild protein-calorie malnutrition 06/04/2015 04/11/2017 Overview: Nutrition following. Ice chips only per beside swallow evaluation. Advanced to popcicle and applesauce 07/19 A/P: Tolerating TF via corpak at goal. Continue TF at current rate, monitor labs. Speech evaluation today Ischemia of hand 06/01/2015 06/05/2015 Overview: Radial a line removed- good doppler signals Rooke mittens placed Heparin infusion for goal pTT 45-55. Ischemia of lower extremity 06/01/201505/13 Overview: Left lower extremity ischemia, has regained DP/PT doppler signals, but calf muscles remains somewhat tense. A/P: CKs normalizing, will stop following CK levels at this time. Vascular surgery signing off, appreciate assistance. 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 Radial art line was in LUE. Art line removed and arterial duplex showed radial artery thrombosis with patent ulnar artery. Pt now with strong pulse in L radial artery. Thrombocytopenia 06/01/2015 06/08/2015 Overview: Required massive transfusion after OR, placed on VA ECMO. Likely consumptive coagulopathy, however PF4 antibody sent given recent initiation of heparin IV. A/P: -Appears to be resolving, platelets 98,000 today. Cardiac insufficiency following cardiac surgery 05/30/2015 06/15/2015 Overview: Severe RV, arrived from OR on iflolan and Epi. iFlolan weaned off A/P: Off epi and iFlolan. Open chest wound 05/30/2015 06/11/2015 Overview: S/p Lung Tx A/P: Dressing intact, continue ATBX while chest is open. Possible closure today Volume overload 05/30/2015 09/02/2015 Overview: + fluid balance due to multiple transfusions and volume replacement for shock in the early post op period. A/P: - 1.9 L/24hr. Continue diuresis, monitor UOP and labs. Personal history of ECMO 05/30/2015 015 Overview: VV ECMO on 05/30, Transitioned to VA ECMO 05/31. VA ECMO weaned 06/03, back on VV ECMO Decannulated on 06/15. Stress hyperglycemia 05/30/2015 06/11/2015 Overview: S/P Lung Tx A/P: Stress hyperglycemia exacerbated by surgery and pressors. RHI infusion for glycemic control. Shock liver - hepatic insufficiency 05/30/2015 06/05/2015 Overview: Markedly elevated LFTs, persistent coagulopathy and bleeding despite near- continuous trasnfusion of blood products. Also recurrent hypoglycemia requiring D50 boluses and D10W infusion. A/P: LFTs downtrending. 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 Progressively hypoxemic after arrival to ICU despite maximal MV support with lung protective ventilation and inhaled epoprostenol. NMB, inverted I:E ratio, high PEEP, low Vt with permissive hypercapnia only helped transiently. VV ECMO placed. Optimize vent settings, BPH, pain control, VV ECMO. Worsening lung compliance d/t hypervolemia (pulm edema) and/ or PGD. Continues on iFlolan. Switched to VA ECMO but maintaining very low Vt plus high PEEP. 06/03 Washout with VA ECMO weaned. VV ECMO initiated. S/p ECMO decannulation 06/15. S/p trach 06/19. Tolerated ~>11hrs on 07/06, but CXR with increased atelectasis following. A/P: CXR with bilateral opacities. Tolerating TC ATC. Continue TC, BPH, pain control, OOB. Consumption coagulopathy 05/29/2015 015 Overview: S/P Lung Transplant. Severe coagulopathic bleeding intraop and immediately postop. Received multiple blood products - plts, cryoppt, FFP and prbcs. Also rewarming for postop hypothermia. A/P: 4u pRBC and 2u platelets distribution coordinator to OR. PF4 antibody negative Chest remains open. Hypotension 05/29/2015 06/15/2015 Overview: Post Lung Tx. Severely vasoplegic intraop and immediately postop requiring multiple inopressors. Received methylene blue bolus intraop. Arrived ICU on epi, norepi, vasopressin and phenylephrine was added in ICU to maintain MAP >60mmHg. Wean for MAP 65 or greater. A/P: Off epi. Maintain MAPs 65-75. Acute blood loss anemia 05/29/2015 09/02/20 15 Overview: H/H remains low but stable. 07/10: H/H 6.6/21--transfused 1 unit 07/11: Transfused for 6.8/21.3 A/P: Monitor H/H, transfuse prn. Acute postoperative pain 05/29/2015 015 Overview: Post op lung Tx A/P: Dilaudid and acetaminophen prn for pain Immunosuppressed status 05/29/2015 09/02/20 15 Overview: S/p b/l lung transplant on 05/29/2015 -immunosuppression and antiimicrobial prophylaxis as per Transplant Pulmonology. -Cont Tac/MMF/Pred. 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 BP has been on the lower side. Oxygen requirement increased to 3L from 2 L Plan: - Will get repeat Echo with bubble study (last one from January 2015). - Place a PA cath and continue to diurese while monitoring her right heart pressures. - Will need IV lasix-received 80 IV lasix on 04/20 and 100 IV lasix on 04/21 - Continue spironolactone. JAMES (acute kidney injury) 04/21/20152014 Overview: Baseline Cr 0.9 (04/09) -> Cr up to 2.4. A/P: JAMES is likely 2/2 ATN given hypotension and hemorrhage. Balance volume repletion with diuresis --> Cr continues to downtrend 1.92 -->1.37 today. Nephrology following - Maintain MAP 65 or greater, avoid nephrotoxic agents. Continue Lasix drip Hyponatremia with excess extracellular fluid vol ume 04/21/2015 06/02/2015 Overview: Likely hypervolemic hyponatremia. Na improved form 126 to 130 this am. Patient is already on torsemide, spironolactone and metolazone at home. Plan: - Continue to diurese as kidney function allows. 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 - O2 requirements as needed (uses 2L NC at home at night). - Continue home O2 - Patient was seen by lung transplant team. Tests required include: Quantitative perfusion scan (done) Gastric emptying study, esophageal manometry and 24hr pH study (ordered) Dental consultation (will need to call ) Social Work (on board) Iron deficiency anemia 01/25/2013 7 Overview: Menstruating female with iron deficiency Cardiomegaly 01/25/2013 09/02/2015 Overview: -- RV enlargement due to PH Exertional dyspnea 01/25/2013 09/02/2015 Mediastinal adenopathy 01/25/2013 5 Hilar adenopathy 01/25/2013 08/21/2015 Overview: Noted on imaging- mother with a history of Sarcoid Could be 2/2 to chronic VTE and pHTN Lung nodules 01/25/2013 09/02/2015 Overview: Noted on imaging Follow Anticoagulation management encounter 01/25/2013 01/26/2013 SUMMARY 01/24/2013 02/02/2013 Overview: This is a 17 year old female with no significant PMH other than migraine and minimal allergies who developed significant SOB within the past 2 months, this progressed to the point where she was unable to walk up 2 flights of stairs and had mild chest pressure with activty. This worsened on a recent trip to [place] where she was on a 6 hour plane ride leading to a near syncopal episode. She presented ot her PCP for fatigue and was found to have anemia, elevated WBC count and on echo a elevated RVSP and dilated RV. She was sent for CT at her local Ed where she was found to have 2 small PE's. Patient sent for further evaluation. At admission upon review of her Ct there is no PE noted, she does however have significant cardiomegaly, increase RVSP and right atrial dilatation, will need to work up cause of PAH PAH (pulmonary artery hypertension) 01/24/2013 08/21/2015 Overview: Found to have elevated RVSP on echo with RV dilatation. ? Sarcoid as she has a family hx as well as polyarthralgia and fatigue - now with hilar lymphadenopathy RHC revealing PA HTN. 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 as angio was suggestive of multiple PEs small and chronic Plan: Further Remodulin titration as an out-patient q weekly, now on 7.5 ng/kg/min PET scan for VALERIA in the chest complete 02/07 Night sweats 01/24/2013 08/21/2015 Overview: Unclear etiology- Awaiting further PAH workup and Rheum w/u is neg so far documented as of this encounter (statuses as of 10/05/2022) [facility] History of Past illness Narrative* Problem Noted Date Resolved Date Abnormality of gait 12/24/2015 04/11/2017 Ascites 07/13/2015 08/21/2015 Overview: Abdominal distension 07/09 KUB: air in stomach, repeat on 07/11: no dilated loops of bowel 07/11: US abdomen + ascites 07/13 Paracentesis ~ 2L straw colored fluid A/P: Abdomen soft, distended. No c/o abd. fullness. Monitor. Seizure 06/22/2015 08/21/2015 Overview: 06/22/2015 0230 Sudden new onset seizures - with generalized rhythmic contractions of all extremities plus facial twitching. Treated lorazepam and midazolam. Stat head CT negative for bleed. No acute metabolic changes on ABG. Concern for withdrawal from opioids - had been on high dose fentanyl infusion for 3 weeks -infusion d'tabitha on 06/18/15. Neuro consulted and continuous EEG monitoring ordered. Cont vEEG showing mild diffuse encephalopathy but no epileptiform form activity. A/P:: No seizure activity since 06/22. Keppra discontinued per ALD. Abdominal distension 06/15/2015 06/16/2015 Overview: TF held. KUB pending. Fever 06/08/2015 08/21/2015 Overview: S/p CT chest/abd 06/18, which showed RLL collapse, with findings suggestive of necrotic PNA, and scattered upper lobe opacities; moderate ascites, cholelithiasis and gallbladder sludging without cholecystitis. Remains afebrile. No leukocytosis. - Urine cx (06/07), neg; Bld cx (06/11) x2 - NGTD - One blood culture (06/06) grew lactobacillus - Bld/UA cx drawn (06/16) - neg - BAL cx (06/20): smear shows GPC in clusters - Bld cx (06/21) NGTD Plan: - Meropenem stopped on 06/22 - Cont PO Vancomycin through hospitalization - F/u BAL cx (06/20) - Smear currently shows GPC in clusters but no organisms on culture; in the setting of resurgence of fevers, restarted on IV Vanc on 06/18->. Continue Vancomycin oral Mild protein-calorie malnutrition 06/04/2015 04/11/2017 Overview: Nutrition following. Ice chips only per beside swallow evaluation. Advanced to popcicle and applesauce 07/19 A/P: Tolerating TF via corpak at goal. Continue TF at current rate, monitor labs. Speech evaluation today Ischemia of hand 06/01/2015 06/05/2015 Overview: Radial a line removed- good doppler signals Rooke mittens placed Heparin infusion for goal pTT 45-55. Ischemia of lower extremity 06/01/201505/13 Overview: Left lower extremity ischemia, has regained DP/PT doppler signals, but calf muscles remains somewhat tense. A/P: CKs normalizing, will stop following CK levels at this time. Vascular surgery signing off, appreciate assistance. 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 Radial art line was in LUE. Art line removed and arterial duplex showed radial artery thrombosis with patent ulnar artery. Pt now with strong pulse in L radial artery. Thrombocytopenia 06/01/2015 06/08/2015 Overview: Required massive transfusion after OR, placed on VA ECMO. Likely consumptive coagulopathy, however PF4 antibody sent given recent initiation of heparin IV. A/P: -Appears to be resolving, platelets 98,000 today. Cardiac insufficiency following cardiac surgery 05/30/2015 06/15/2015 Overview: Severe RV, arrived from OR on iflolan and Epi. iFlolan weaned off A/P: Off epi and iFlolan. Open chest wound 05/30/2015 06/11/2015 Overview: S/p Lung Tx A/P: Dressing intact, continue ATBX while chest is open. Possible closure today Volume overload 05/30/2015 09/02/2015 Overview: + fluid balance due to multiple transfusions and volume replacement for shock in the early post op period. A/P: - 1.9 L/24hr. Continue diuresis, monitor UOP and labs. Personal history of ECMO 05/30/2015 015 Overview: VV ECMO on 05/30, Transitioned to VA ECMO 05/31. VA ECMO weaned 06/03, back on VV ECMO Decannulated on 06/15. Stress hyperglycemia 05/30/2015 06/11/2015 Overview: S/P Lung Tx A/P: Stress hyperglycemia exacerbated by surgery and pressors. RHI infusion for glycemic control. Shock liver - hepatic insufficiency 05/30/2015 06/05/2015 Overview: Markedly elevated LFTs, persistent coagulopathy and bleeding despite near- continuous trasnfusion of blood products. Also recurrent hypoglycemia requiring D50 boluses and D10W infusion. A/P: LFTs downtrending. 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 Progressively hypoxemic after arrival to ICU despite maximal MV support with lung protective ventilation and inhaled epoprostenol. NMB, inverted I:E ratio, high PEEP, low Vt with permissive hypercapnia only helped transiently. VV ECMO placed. Optimize vent settings, BPH, pain control, VV ECMO. Worsening lung compliance d/t hypervolemia (pulm edema) and/ or PGD. Continues on iFlolan. Switched to VA ECMO but maintaining very low Vt plus high PEEP. 06/03 Washout with VA ECMO weaned. VV ECMO initiated. S/p ECMO decannulation 06/15. S/p trach 06/19. Tolerated ~>11hrs on 07/06, but CXR with increased atelectasis following. A/P: CXR with bilateral opacities. Tolerating TC ATC. Continue TC, BPH, pain control, OOB. Consumption coagulopathy 05/29/201506/06/ 015 Overview: S/P Lung Transplant. Severe coagulopathic bleeding intraop and immediately postop. Received multiple blood products - plts, cryoppt, FFP and prbcs. Also rewarming for postop hypothermia. A/P: 4u pRBC and 2u platelets distribution coordinator to OR. PF4 antibody negative Chest remains open. Hypotension 05/29/2015 06/15/2015 Overview: Post Lung Tx. Severely vasoplegic intraop and immediately postop requiring multiple inopressors. Received methylene blue bolus intraop. Arrived ICU on epi, norepi, vasopressin and phenylephrine was added in ICU to maintain MAP >60mmHg. Wean for MAP 65 or greater. A/P: Off epi. Maintain MAPs 65-75. Acute blood loss anemia 05/29/2015 09/02/20 15 Overview: H/H remains low but stable. 07/10: H/H 6.6--transfused 1 unit 07/11: Transfused for 6.8.3 A/P: Monitor H/H, transfuse prn. Acute postoperative pain 05/29/2015 015 Overview: Post op lung Tx A/P: Dilaudid and acetaminophen prn for pain Immunosuppressed status 05/29/2015 09/02/20 15 Overview: S/p b/l lung transplant on 05/29/2015 -immunosuppression and antiimicrobial prophylaxis as per Transplant Pulmonology. -Cont Tac/MMF/Pred. 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 BP has been on the lower side. Oxygen requirement increased to 3L from 2 L Plan: - Will get repeat Echo with bubble study (last one from January 2015). - Place a PA cath and continue to diurese while monitoring her right heart pressures. - Will need IV lasix-received 80 IV lasix on 04/20 and 100 IV lasix on 04/21 - Continue spironolactone. JAMES (acute kidney injury) 04/21/20152014 Overview: Baseline Cr 0.9 (04/09) -> Cr up to 2.4. A/P: JAMES is likely 2/2 ATN given hypotension and hemorrhage. Balance volume repletion with diuresis --> Cr continues to downtrend 1.92 -->1.37 today. Nephrology following - Maintain MAP 65 or greater, avoid nephrotoxic agents. Continue Lasix drip Hyponatremia with excess extracellular fluid vol ume 04/21/2015 06/02/2015 Overview: Likely hypervolemic hyponatremia. Na improved form 126 to 130 this am. Patient is already on torsemide, spironolactone and metolazone at home. Plan: - Continue to diurese as kidney function allows. 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 - O2 requirements as needed (uses 2L NC at home at night). - Continue home O2 - Patient was seen by lung transplant team. Tests required include: Quantitative perfusion scan (done) Gastric emptying study, esophageal manometry and 24hr pH study (ordered) Dental consultation (will need to call ) Social Work (on board) Iron deficiency anemia 01/25/2013 7 Overview: Menstruating female with iron deficiency Cardiomegaly 01/25/2013 09/02/2015 Overview: -- RV enlargement due to PH Exertional dyspnea 01/25/2013 09/02/2015 Mediastinal adenopathy 01/25/2013 5 Hilar adenopathy 01/25/2013 08/21/2015 Overview: Noted on imaging- mother with a history of Sarcoid Could be 2/2 to chronic VTE and pHTN Lung nodules 01/25/2013 09/02/2015 Overview: Noted on imaging Follow Anticoagulation management encounter 01/25/2013 01/26/2013 SUMMARY 01/24/2013 02/02/2013 Overview: This is a 17 year old female with no significant PMH other than migraine and minimal allergies who developed significant SOB within the past 2 months, this progressed to the point where she was unable to walk up 2 flights of stairs and had mild chest pressure with activty. This worsened on a recent trip to [place] where she was on a 6 hour plane ride leading to a near syncopal episode. She presented ot her PCP for fatigue and was found to have anemia, elevated WBC count and on echo a elevated RVSP and dilated RV. She was sent for CT at her local Ed where she was found to have 2 small PE's. Patient sent for further evaluation. At admission upon review of her Ct there is no PE noted, she does however have significant cardiomegaly, increase RVSP and right atrial dilatation, will need to work up cause of PAH PAH (pulmonary artery hypertension) 01/24/2013 08/21/2015 Overview: Found to have elevated RVSP on echo with RV dilatation. ? Sarcoid as she has a family hx as well as polyarthralgia and fatigue - now with hilar lymphadenopathy RHC revealing PA HTN. 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 as angio was suggestive of multiple PEs small and chronic Plan: Further Remodulin titration as an out-patient q weekly, now on 7.5 ng/kg/min PET scan for VALERIA in the chest complete 02/07 Night sweats 01/24/2013 08/21/2015 Overview: Unclear etiology- Awaiting further PAH workup and Rheum w/u is neg so far documented as of this encounter (statuses as of 10/05/2022) [facility] History of Past illness Narrative* Problem Noted Date Resolved Date Abnormality of gait 12/24/2015 04/11/2017 Ascites 07/13/2015 08/21/2015 Overview: Abdominal distension 07/09 KUB: air in stomach, repeat on 07/11: no dilated loops of bowel 07/11: US abdomen + ascites 07/13 Paracentesis ~ 2L straw colored fluid A/P: Abdomen soft, distended. No c/o abd. fullness. Monitor. Seizure 06/22/2015 08/21/2015 Overview: 06/22/2015 0230 Sudden new onset seizures - with generalized rhythmic contractions of all extremities plus facial twitching. Treated lorazepam and midazolam. Stat head CT negative for bleed. No acute metabolic changes on ABG. Concern for withdrawal from opioids - had been on high dose fentanyl infusion for 3 weeks -infusion d'tabitha on 06/18/15. Neuro consulted and continuous EEG monitoring ordered. Cont vEEG showing mild diffuse encephalopathy but no epileptiform form activity. A/P:: No seizure activity since 06/22. Keppra discontinued per ALD. Abdominal distension 06/15/2015 06/16/2015 Overview: TF held. KUB pending. Fever 06/08/2015 08/21/2015 Overview: S/p CT chest/abd 06/18, which showed RLL collapse, with findings suggestive of necrotic PNA, and scattered upper lobe opacities; moderate ascites, cholelithiasis and gallbladder sludging without cholecystitis. Remains afebrile. No leukocytosis. - Urine cx (06/07), neg; Bld cx (06/11) x2 - NGTD - One blood culture (06/06) grew lactobacillus - Bld/UA cx drawn (06/16) - neg - BAL cx (06/20): smear shows GPC in clusters - Bld cx (06/21) NGTD Plan: - Meropenem stopped on 06/22 - Cont PO Vancomycin through hospitalization - F/u BAL cx (06/20) - Smear currently shows GPC in clusters but no organisms on culture; in the setting of resurgence of fevers, restarted on IV Vanc on 06/18->. Continue Vancomycin oral Mild protein-calorie malnutrition 06/04/2015 04/11/2017 Overview: Nutrition following. Ice chips only per beside swallow evaluation. Advanced to popcicle and applesauce 07/19 A/P: Tolerating TF via corpak at goal. Continue TF at current rate, monitor labs. Speech evaluation today Ischemia of hand 06/01/2015 06/05/2015 Overview: Radial a line removed- good doppler signals Rooke mittens placed Heparin infusion for goal pTT 45-55. Ischemia of lower extremity 06/01/2015/04/2015 Overview: Left lower extremity ischemia, has regained DP/PT doppler signals, but calf muscles remains somewhat tense. A/P: CKs normalizing, will stop following CK levels at this time. Vascular surgery signing off, appreciate assistance. 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 Radial art line was in LUE. Art line removed and arterial duplex showed radial artery thrombosis with patent ulnar artery. Pt now with strong pulse in L radial artery. Thrombocytopenia 06/01/2015 06/08/2015 Overview: Required massive transfusion after OR, placed on VA ECMO. Likely consumptive coagulopathy, however PF4 antibody sent given recent initiation of heparin IV. A/P: -Appears to be resolving, platelets 98,000 today. Cardiac insufficiency following cardiac surgery 05/30/2015 06/15/2015 Overview: Severe RV, arrived from OR on iflolan and Epi. iFlolan weaned off A/P: Off epi and iFlolan. Open chest wound 05/30/2015 06/11/2015 Overview: S/p Lung Tx A/P: Dressing intact, continue ATBX while chest is open. Possible closure today Volume overload 05/30/2015 09/02/2015 Overview: + fluid balance due to multiple transfusions and volume replacement for shock in the early post op period. A/P: - 1.9 L/24hr. Continue diuresis, monitor UOP and labs. Personal history of ECMO 05/30/2015 015 Overview: VV ECMO on 05/30, Transitioned to VA ECMO 05/31. VA ECMO weaned 06/03, back on VV ECMO Decannulated on 06/15. Stress hyperglycemia 05/30/2015 06/11/2015 Overview: S/P Lung Tx A/P: Stress hyperglycemia exacerbated by surgery and pressors. RHI infusion for glycemic control. Shock liver - hepatic insufficiency 05/30/2015 06/05/2015 Overview: Markedly elevated LFTs, persistent coagulopathy and bleeding despite near- continuous trasnfusion of blood products. Also recurrent hypoglycemia requiring D50 boluses and D10W infusion. A/P: LFTs downtrending. 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 Progressively hypoxemic after arrival to ICU despite maximal MV support with lung protective ventilation and inhaled epoprostenol. NMB, inverted I:E ratio, high PEEP, low Vt with permissive hypercapnia only helped transiently. VV ECMO placed. Optimize vent settings, BPH, pain control, VV ECMO. Worsening lung compliance d/t hypervolemia (pulm edema) and/ or PGD. Continues on iFlolan. Switched to VA ECMO but maintaining very low Vt plus high PEEP. 06/03 Washout with VA ECMO weaned. VV ECMO initiated. S/p ECMO decannulation 06/15. S/p trach 06/19. Tolerated ~>11hrs on 07/06, but CXR with increased atelectasis following. A/P: CXR with bilateral opacities. Tolerating TC ATC. Continue TC, BPH, pain control, OOB. Consumption coagulopathy 05/29/201506/06/ 015 Overview: S/P Lung Transplant. Severe coagulopathic bleeding intraop and immediately postop. Received multiple blood products - plts, cryoppt, FFP and prbcs. Also rewarming for postop hypothermia. A/P: 4u pRBC and 2u platelets distribution coordinator to OR. PF4 antibody negative Chest remains open. Hypotension 05/29/2015 06/15/2015 Overview: Post Lung Tx. Severely vasoplegic intraop and immediately postop requiring multiple inopressors. Received methylene blue bolus intraop. Arrived ICU on epi, norepi, vasopressin and phenylephrine was added in ICU to maintain MAP >60mmHg. Wean for MAP 65 or greater. A/P: Off epi. Maintain MAPs 65-75. Acute blood loss anemia 05/29/2015 09/02/20 15 Overview: H/H remains low but stable. 07/10: H/H 6.6--transfused 1 unit 07/11: Transfused for 6.8.3 A/P: Monitor H/H, transfuse prn. Acute postoperative pain 05/29/2015 015 Overview: Post op lung Tx A/P: Dilaudid and acetaminophen prn for pain Immunosuppressed status 05/29/2015 09/02/20 15 Overview: S/p b/l lung transplant on 05/29/2015 -immunosuppression and antiimicrobial prophylaxis as per Transplant Pulmonology. -Cont Tac/MMF/Pred. 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 BP has been on the lower side. Oxygen requirement increased to 3L from 2 L Plan: - Will get repeat Echo with bubble study (last one from January 2015). - Place a PA cath and continue to diurese while monitoring her right heart pressures. - Will need IV lasix-received 80 IV lasix on 04/20 and 100 IV lasix on 04/21 - Continue spironolactone. JAMES (acute kidney injury) 04/21/20152014 Overview: Baseline Cr 0.9 (04/09) -> Cr up to 2.4. A/P: JAMES is likely 2/2 ATN given hypotension and hemorrhage. Balance volume repletion with diuresis --> Cr continues to downtrend 1.92 -->1.37 today. Nephrology following - Maintain MAP 65 or greater, avoid nephrotoxic agents. Continue Lasix drip Hyponatremia with excess extracellular fluid vol ume 04/21/2015 06/02/2015 Overview: Likely hypervolemic hyponatremia. Na improved form 126 to 130 this am. Patient is already on torsemide, spironolactone and metolazone at home. Plan: - Continue to diurese as kidney function allows. 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 - O2 requirements as needed (uses 2L NC at home at night). - Continue home O2 - Patient was seen by lung transplant team. Tests required include: Quantitative perfusion scan (done) Gastric emptying study, esophageal manometry and 24hr pH study (ordered) Dental consultation (will need to call ) Social Work (on board) Iron deficiency anemia 01/25/2013 7 Overview: Menstruating female with iron deficiency Cardiomegaly 01/25/2013 09/02/2015 Overview: -- RV enlargement due to PH Exertional dyspnea 01/25/2013 09/02/2015 Mediastinal adenopathy 01/25/2013 5 Hilar adenopathy 01/25/2013 08/21/2015 Overview: Noted on imaging- mother with a history of Sarcoid Could be 2/2 to chronic VTE and pHTN Lung nodules 01/25/2013 09/02/2015 Overview: Noted on imaging Follow Anticoagulation management encounter 01/25/2013 01/26/2013 SUMMARY 01/24/2013 02/02/2013 Overview: This is a 17 year old female with no significant PMH other than migraine and minimal allergies who developed significant SOB within the past 2 months, this progressed to the point where she was unable to walk up 2 flights of stairs and had mild chest pressure with activty. This worsened on a recent trip to [place] where she was on a 6 hour plane ride leading to a near syncopal episode. She presented ot her PCP for fatigue and was found to have anemia, elevated WBC count and on echo a elevated RVSP and dilated RV. She was sent for CT at her local Ed where she was found to have 2 small PE's. Patient sent for further evaluation. At admission upon review of her Ct there is no PE noted, she does however have significant cardiomegaly, increase RVSP and right atrial dilatation, will need to work up cause of PAH PAH (pulmonary artery hypertension) 01/24/2013 08/21/2015 Overview: Found to have elevated RVSP on echo with RV dilatation. ? Sarcoid as she has a family hx as well as polyarthralgia and fatigue - now with hilar lymphadenopathy RHC revealing PA HTN. 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 as angio was suggestive of multiple PEs small and chronic Plan: Further Remodulin titration as an out-patient q weekly, now on 7.5 ng/kg/min PET scan for VALERIA in the chest complete 02/07 Night sweats 01/24/2013 08/21/2015 Overview: Unclear etiology- Awaiting further PAH workup and Rheum w/u is neg so far documented as of this encounter (statuses as of 10/19/2022) [facility] History of Past illness Narrative* Problem Noted Date Resolved Date Abnormality of gait 12/24/2015 04/11/2017 Ascites 07/13/2015 08/21/2015 Overview: Abdominal distension 07/09 KUB: air in stomach, repeat on 07/11: no dilated loops of bowel 07/11: US abdomen + ascites 07/13 Paracentesis ~ 2L straw colored fluid A/P: Abdomen soft, distended. No c/o abd. fullness. Monitor. Seizure 06/22/2015 08/21/2015 Overview: 06/22/2015 0230 Sudden new onset seizures - with generalized rhythmic contractions of all extremities plus facial twitching. Treated lorazepam and midazolam. Stat head CT negative for bleed. No acute metabolic changes on ABG. Concern for withdrawal from opioids - had been on high dose fentanyl infusion for 3 weeks -infusion d'tabitha on 06/18/15. Neuro consulted and continuous EEG monitoring ordered. Cont vEEG showing mild diffuse encephalopathy but no epileptiform form activity. A/P:: No seizure activity since 06/22. Keppra discontinued per ALD. Abdominal distension 06/15/2015 06/16/2015 Overview: TF held. KUB pending. Fever 06/08/2015 08/21/2015 Overview: S/p CT chest/abd 06/18, which showed RLL collapse, with findings suggestive of necrotic PNA, and scattered upper lobe opacities; moderate ascites, cholelithiasis and gallbladder sludging without cholecystitis. Remains afebrile. No leukocytosis. - Urine cx (06/07), neg; Bld cx (06/11) x2 - NGTD - One blood culture (06/06) grew lactobacillus - Bld/UA cx drawn (06/16) - neg - BAL cx (06/20): smear shows GPC in clusters - Bld cx (06/21) NGTD Plan: - Meropenem stopped on 06/22 - Cont PO Vancomycin through hospitalization - F/u BAL cx (06/20) - Smear currently shows GPC in clusters but no organisms on culture; in the setting of resurgence of fevers, restarted on IV Vanc on 06/18->. Continue Vancomycin oral Mild protein-calorie malnutrition 06/04/2015 04/11/2017 Overview: Nutrition following. Ice chips only per beside swallow evaluation. Advanced to popcicle and applesauce 07/19 A/P: Tolerating TF via corpak at goal. Continue TF at current rate, monitor labs. Speech evaluation today Ischemia of hand 06/01/2015 06/05/2015 Overview: Radial a line removed- good doppler signals Rooke mittens placed Heparin infusion for goal pTT 45-55. Ischemia of lower extremity 06/01/201505/13 Overview: Left lower extremity ischemia, has regained DP/PT doppler signals, but calf muscles remains somewhat tense. A/P: CKs normalizing, will stop following CK levels at this time. Vascular surgery signing off, appreciate assistance. 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 Radial art line was in LUE. Art line removed and arterial duplex showed radial artery thrombosis with patent ulnar artery. Pt now with strong pulse in L radial artery. Thrombocytopenia 06/01/2015 06/08/2015 Overview: Required massive transfusion after OR, placed on [facility] ECMO. Likely consumptive coagulopathy, however PF4 antibody sent given recent initiation of heparin IV. A/P: -Appears to be resolving, platelets 98,000 today. Cardiac insufficiency following cardiac surgery 05/30/2015 06/15/2015 Overview: Severe RV, arrived from OR on iflolan and Epi. iFlolan weaned off A/P: Off epi and iFlolan. Open chest wound 05/30/2015 06/11/2015 Overview: S/p Lung Tx A/P: Dressing intact, continue ATBX while chest is open. Possible closure today Volume overload 05/30/2015 09/02/2015 Overview: + fluid balance due to multiple transfusions and volume replacement for shock in the early post op period. A/P: - 1.9 L/24hr. Continue diuresis, monitor UOP and labs. Personal history of ECMO 05/30/2015 015 Overview: VV ECMO on 05/30, Transitioned to VA ECMO 05/31. VA ECMO weaned 06/03, back on VV ECMO Decannulated on 06/15. Stress hyperglycemia 05/30/2015 06/11/2015 Overview: S/P Lung Tx A/P: Stress hyperglycemia exacerbated by surgery and pressors. RHI infusion for glycemic control. Shock liver - hepatic insufficiency 05/30/2015 06/05/2015 Overview: Markedly elevated LFTs, persistent coagulopathy and bleeding despite near- continuous trasnfusion of blood products. Also recurrent hypoglycemia requiring D50 boluses and D10W infusion. A/P: LFTs downtrending. 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 Progressively hypoxemic after arrival to ICU despite maximal MV support with lung protective ventilation and inhaled epoprostenol. NMB, inverted I:E ratio, high PEEP, low Vt with permissive hypercapnia only helped transiently. VV ECMO placed. Optimize vent settings, BPH, pain control, VV ECMO. Worsening lung compliance d/t hypervolemia (pulm edema) and/ or PGD. Continues on iFlolan. Switched to VA ECMO but maintaining very low Vt plus high PEEP. 06/03 Washout with VA ECMO weaned. VV ECMO initiated. S/p ECMO decannulation 06/15. S/p trach 06/19. Tolerated ~>11hrs on 07/06, but CXR with increased atelectasis following. A/P: CXR with bilateral opacities. Tolerating TC ATC. Continue TC, BPH, pain control, OOB. Consumption coagulopathy 05/29/2015 015 Overview: S/P Lung Transplant. Severe coagulopathic bleeding intraop and immediately postop. Received multiple blood products - plts, cryoppt, FFP and prbcs. Also rewarming for postop hypothermia. A/P: 4u pRBC and 2u platelets distribution coordinator to OR. PF4 antibody negative Chest remains open. Hypotension 05/29/2015 06/15/2015 Overview: Post Lung Tx. Severely vasoplegic intraop and immediately postop requiring multiple inopressors. Received methylene blue bolus intraop. Arrived ICU on epi, norepi, vasopressin and phenylephrine was added in ICU to maintain MAP >60mmHg. Wean for MAP 65 or greater. A/P: Off epi. Maintain MAPs 65-75. Acute blood loss anemia 05/29/2015 09/02/20 Overview: H/H remains low but stable. 07/10: H/H 6.6--transfused 1 unit 07/11: Transfused for 6.8.3 A/P: Monitor H/H, transfuse prn. Acute postoperative pain 05/29/2015 015 Overview: Post op lung Tx A/P: Dilaudid and acetaminophen prn for pain Immunosuppressed status 05/29/2015 09/02/20 Overview: S/p b/l lung transplant on 05/29/2015 -immunosuppression and antiimicrobial prophylaxis as per Transplant Pulmonology. -Cont Tac/MMF/Pred. 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 BP has been on the lower side. Oxygen requirement increased to 3L from 2 L Plan: - Will get repeat Echo with bubble study (last one from January 2015). - Place a PA cath and continue to diurese while monitoring her right heart pressures. - Will need IV lasix-received 80 IV lasix on 04/20 and 100 IV lasix on 04/21 - Continue spironolactone. JAMES (acute kidney injury) 04/21/20152014 Overview: Baseline Cr 0.9 (04/09) -> Cr up to 2.4. A/P: JAMES is likely 2/2 ATN given hypotension and hemorrhage. Balance volume repletion with diuresis --> Cr continues to downtrend 1.92 -->1.37 today. Nephrology following - Maintain MAP 65 or greater, avoid nephrotoxic agents. Continue Lasix drip Hyponatremia with excess extracellular fluid vol ume 04/21/2015 06/02/2015 Overview: Likely hypervolemic hyponatremia. Na improved form 126 to 130 this am. Patient is already on torsemide, spironolactone and metolazone at home. Plan: - Continue to diurese as kidney function allows. 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 - O2 requirements as needed (uses 2L NC at home at night). - Continue home O2 - Patient was seen by lung transplant team. Tests required include: Quantitative perfusion scan (done) Gastric emptying study, esophageal manometry and 24hr pH study (ordered) Dental consultation (will need to call ) Social Work (on board) Iron deficiency anemia 01/25/2013 7 Overview: Menstruating female with iron deficiency Cardiomegaly 01/25/2013 09/02/2015 Overview: -- RV enlargement due to PH Exertional dyspnea 01/25/2013 09/02/2015 Mediastinal adenopathy 01/25/2013 5 Hilar adenopathy 01/25/2013 08/21/2015 Overview: Noted on imaging- mother with a history of Sarcoid Could be 2/2 to chronic VTE and pHTN Lung nodules 01/25/2013 09/02/2015 Overview: Noted on imaging Follow Anticoagulation management encounter 01/25/2013 01/26/2013 SUMMARY 01/24/2013 02/02/2013 Overview: This is a 17 year old female with no significant PMH other than migraine and minimal allergies who developed significant SOB within the past 2 months, this progressed to the point where she was unable to walk up 2 flights of stairs and had mild chest pressure with activty. This worsened on a recent trip to [place] where she was on a 6 hour plane ride leading to a near syncopal episode. She presented ot her PCP for fatigue and was found to have anemia, elevated WBC count and on echo a elevated RVSP and dilated RV. She was sent for CT at her local Ed where she was found to have 2 small PE's. Patient sent for further evaluation. At admission upon review of her Ct there is no PE noted, she does however have significant cardiomegaly, increase RVSP and right atrial dilatation, will need to work up cause of PAH PAH (pulmonary artery hypertension) 01/24/2013 08/21/2015 Overview: Found to have elevated RVSP on echo with RV dilatation. ? Sarcoid as she has a family hx as well as polyarthralgia and fatigue - now with hilar lymphadenopathy RHC revealing PA HTN. 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 as angio was suggestive of multiple PEs small and chronic Plan: Further Remodulin titration as an out-patient q weekly, now on 7.5 ng/kg/min PET scan for VALERIA in the chest complete 02/07 Night sweats 01/24/2013 08/21/2015 Overview: Unclear etiology- Awaiting further PAH workup and Rheum w/u is neg so far documented as of this encounter (statuses as of 10/20/2022) [facility] History of Past illness Narrative* Problem Noted Date Resolved Date Abnormality of gait 12/24/2015 04/11/2017 Ascites 07/13/2015 08/21/2015 Overview: Abdominal distension 07/09 KUB: air in stomach, repeat on 07/11: no dilated loops of bowel 07/11: US abdomen + ascites 07/13 Paracentesis ~ 2L straw colored fluid A/P: Abdomen soft, distended. No c/o abd. fullness. Monitor. Seizure 06/22/2015 08/21/2015 Overview: 06/22/2015 0230 Sudden new onset seizures - with generalized rhythmic contractions of all extremities plus facial twitching. Treated lorazepam and midazolam. Stat head CT negative for bleed. No acute metabolic changes on ABG. Concern for withdrawal from opioids - had been on high dose fentanyl infusion for 3 weeks -infusion d'tabitha on 06/18/15. Neuro consulted and continuous EEG monitoring ordered. Cont vEEG showing mild diffuse encephalopathy but no epileptiform form activity. A/P:: No seizure activity since 06/22. Keppra discontinued per ALD. Abdominal distension 06/15/2015 06/16/2015 Overview: TF held. KUB pending. Fever 06/08/2015 08/21/2015 Overview: S/p CT chest/abd 06/18, which showed RLL collapse, with findings suggestive of necrotic PNA, and scattered upper lobe opacities; moderate ascites, cholelithiasis and gallbladder sludging without cholecystitis. Remains afebrile. No leukocytosis. - Urine cx (06/07), neg; Bld cx (06/11) x2 - NGTD - One blood culture (06/06) grew lactobacillus - Bld/UA cx drawn (06/16) - neg - BAL cx (06/20): smear shows GPC in clusters - Bld cx (06/21) NGTD Plan: - Meropenem stopped on 06/22 - Cont PO Vancomycin through hospitalization - F/u BAL cx (06/20) - Smear currently shows GPC in clusters but no organisms on culture; in the setting of resurgence of fevers, restarted on IV Vanc on 06/18->. Continue Vancomycin oral Mild protein-calorie malnutrition 06/04/2015 04/11/2017 Overview: Nutrition following. Ice chips only per beside swallow evaluation. Advanced to popcicle and applesauce 07/19 A/P: Tolerating TF via corpak at goal. Continue TF at current rate, monitor labs. Speech evaluation today Ischemia of hand 06/01/2015 06/05/2015 Overview: Radial a line removed- good doppler signals Dexter ndiaye placed Heparin infusion for goal pTT 45-55. Ischemia of lower extremity 06/01/201505/13 Overview: Left lower extremity ischemia, has regained DP/PT doppler signals, but calf muscles remains somewhat tense. A/P: CKs normalizing, will stop following CK levels at this time. Vascular surgery signing off, appreciate assistance. 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 Radial art line was in LUE. Art line removed and arterial duplex showed radial artery thrombosis with patent ulnar artery. Pt now with strong pulse in L radial artery. Thrombocytopenia 06/01/2015 06/08/2015 Overview: Required massive transfusion after OR, placed on VA ECMO. Likely consumptive coagulopathy, however PF4 antibody sent given recent initiation of heparin IV. A/P: -Appears to be resolving, platelets 98,000 today. Cardiac insufficiency following cardiac surgery 05/30/2015 06/15/2015 Overview: Severe RV, arrived from OR on iflolan and Epi. iFlolan weaned off A/P: Off epi and iFlolan. Open chest wound 05/30/2015 06/11/2015 Overview: S/p Lung Tx A/P: Dressing intact, continue ATBX while chest is open. Possible closure today Volume overload 05/30/2015 09/02/2015 Overview: + fluid balance due to multiple transfusions and volume replacement for shock in the early post op period. A/P: - 1.9 L/24hr. Continue diuresis, monitor UOP and labs. Personal history of ECMO 05/30/2015 015 Overview: VV ECMO on 05/30, Transitioned to VA ECMO 05/31. VA ECMO weaned 06/03, back on VV ECMO Decannulated on 06/15. Stress hyperglycemia 05/30/2015 06/11/2015 Overview: S/P Lung Tx A/P: Stress hyperglycemia exacerbated by surgery and pressors. RHI infusion for glycemic control. Shock liver - hepatic insufficiency 05/30/2015 06/05/2015 Overview: Markedly elevated LFTs, persistent coagulopathy and bleeding despite near- continuous trasnfusion of blood products. Also recurrent hypoglycemia requiring D50 boluses and D10W infusion. A/P: LFTs downtrending. 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 Progressively hypoxemic after arrival to ICU despite maximal MV support with lung protective ventilation and inhaled epoprostenol. NMB, inverted I:E ratio, high PEEP, low Vt with permissive hypercapnia only helped transiently. VV ECMO placed. Optimize vent settings, BPH, pain control, VV ECMO. Worsening lung compliance d/t hypervolemia (pulm edema) and/ or PGD. Continues on iFlolan. Switched to VA ECMO but maintaining very low Vt plus high PEEP. 06/03 Washout with VA ECMO weaned. VV ECMO initiated. S/p ECMO decannulation 06/15. S/p trach 06/19. Tolerated ~>11hrs on 07/06, but CXR with increased atelectasis following. A/P: CXR with bilateral opacities. Tolerating TC ATC. Continue TC, BPH, pain control, OOB. Consumption coagulopathy 05/29/2015 015 Overview: S/P Lung Transplant. Severe coagulopathic bleeding intraop and immediately postop. Received multiple blood products - plts, cryoppt, FFP and prbcs. Also rewarming for postop hypothermia. A/P: 4u pRBC and 2u platelets distribution coordinator to OR. PF4 antibody negative Chest remains open. Hypotension 05/29/2015 06/15/2015 Overview: Post Lung Tx. Severely vasoplegic intraop and immediately postop requiring multiple inopressors. Received methylene blue bolus intraop. Arrived ICU on epi, norepi, vasopressin and phenylephrine was added in ICU to maintain MAP >60mmHg. Wean for MAP 65 or greater. A/P: Off epi. Maintain MAPs 65-75. Acute blood loss anemia 05/29/2015 09/02/20 15 Overview: H/H remains low but stable. 07/10: H/H 6.6--transfused 1 unit 07/11: Transfused for .05/01.3 A/P: Monitor H/H, transfuse prn. Acute postoperative pain 05/29/2015 015 Overview: Post op lung Tx A/P: Dilaudid and acetaminophen prn for pain Immunosuppressed status 05/29/2015 09/02/20 15 Overview: S/p b/l lung transplant on 05/29/2015 -immunosuppression and antiimicrobial prophylaxis as per Transplant Pulmonology. -Cont Tac/MMF/Pred. 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 BP has been on the lower side. Oxygen requirement increased to 3L from 2 L Plan: - Will get repeat Echo with bubble study (last one from January 2015). - Place a PA cath and continue to diurese while monitoring her right heart pressures. - Will need IV lasix-received 80 IV lasix on 04/20 and 100 IV lasix on 04/21 - Continue spironolactone. JAMES (acute kidney injury) 04/21/20152014 Overview: Baseline Cr 0.9 (04/09) -> Cr up to 2.4. A/P: JAMES is likely 2/2 ATN given hypotension and hemorrhage. Balance volume repletion with diuresis --> Cr continues to downtrend 1.92 -->1.37 today. Nephrology following - Maintain MAP 65 or greater, avoid nephrotoxic agents. Continue Lasix drip Hyponatremia with excess extracellular fluid vol ume 04/21/2015 06/02/2015 Overview: Likely hypervolemic hyponatremia. Na improved form 126 to 130 this am. Patient is already on torsemide, spironolactone and metolazone at home. Plan: - Continue to diurese as kidney function allows. 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 - O2 requirements as needed (uses 2L NC at home at night). - Continue home O2 - Patient was seen by lung transplant team. Tests required include: Quantitative perfusion scan (done) Gastric emptying study, esophageal manometry and 24hr pH study (ordered) Dental consultation (will need to call ) Social Work (on board) Iron deficiency anemia 01/25/2013 7 Overview: Menstruating female with iron deficiency Cardiomegaly 01/25/2013 09/02/2015 Overview: -- RV enlargement due to PH Exertional dyspnea 01/25/2013 09/02/2015 Mediastinal adenopathy 01/25/2013 5 Hilar adenopathy 01/25/2013 08/21/2015 Overview: Noted on imaging- mother with a history of Sarcoid Could be 2/2 to chronic VTE and pHTN Lung nodules 01/25/2013 09/02/2015 Overview: Noted on imaging Follow Anticoagulation management encounter 01/25/2013 01/26/2013 SUMMARY 01/24/2013 02/02/2013 Overview: This is a 17 year old female with no significant PMH other than migraine and minimal allergies who developed significant SOB within the past 2 months, this progressed to the point where she was unable to walk up 2 flights of stairs and had mild chest pressure with activty. This worsened on a recent trip to [place] where she was on a 6 hour plane ride leading to a near syncopal episode. She presented ot her PCP for fatigue and was found to have anemia, elevated WBC count and on echo a elevated RVSP and dilated RV. She was sent for CT at her local Ed where she was found to have 2 small PE's. Patient sent for further evaluation. At admission upon review of her Ct there is no PE noted, she does however have significant cardiomegaly, increase RVSP and right atrial dilatation, will need to work up cause of PAH PAH (pulmonary artery hypertension) 01/24/2013 08/21/2015 Overview: Found to have elevated RVSP on echo with RV dilatation. ? Sarcoid as she has a family hx as well as polyarthralgia and fatigue - now with hilar lymphadenopathy RHC revealing PA HTN. 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 as angio was suggestive of multiple PEs small and chronic Plan: Further Remodulin titration as an out-patient q weekly, now on 7.5 ng/kg/min PET scan for VALERIA in the chest complete 530 Night sweats 01/24/2013 08/21/2015 Overview: Unclear etiology- Awaiting further PAH workup and Rheum w/u is neg so far documented as of this encounter (statuses as of 12/16/2022) [facility] History of Past illness Narrative* Problem Noted Date Resolved Date Abnormality of gait 12/24/2015 04/11/2017 Ascites 07/13/2015 08/21/2015 Overview: Abdominal distension 07/09 KUB: air in stomach, repeat on 07/11: no dilated loops of bowel 07/11: US abdomen + ascites 07/13 Paracentesis ~ 2L straw colored fluid A/P: Abdomen soft, distended. No c/o abd. fullness. Monitor. Seizure 06/22/2015 08/21/2015 Overview: 06/22/2015 0230 Sudden new onset seizures - with generalized rhythmic contractions of all extremities plus facial twitching. Treated lorazepam and midazolam. Stat head CT negative for bleed. No acute metabolic changes on ABG. Concern for withdrawal from opioids - had been on high dose fentanyl infusion for 3 weeks -infusion d'tabitha on 06/18/15. Neuro consulted and continuous EEG monitoring ordered. Cont vEEG showing mild diffuse encephalopathy but no epileptiform form activity. A/P:: No seizure activity since 06/22. Keppra discontinued per ALD. Abdominal distension 06/15/2015 06/16/2015 Overview: TF held. KUB pending. Fever 06/08/2015 08/21/2015 Overview: S/p CT chest/abd 06/18, which showed RLL collapse, with findings suggestive of necrotic PNA, and scattered upper lobe opacities; moderate ascites, cholelithiasis and gallbladder sludging without cholecystitis. Remains afebrile. No leukocytosis. - Urine cx (06/07), neg; Bld cx (06/11) x2 - NGTD - One blood culture (06/06) grew lactobacillus - Bld/UA cx drawn (06/16) - neg - BAL cx (06/20): smear shows GPC in clusters - Bld cx (06/21) NGTD Plan: - Meropenem stopped on 06/22 - Cont PO Vancomycin through hospitalization - F/u BAL cx (06/20) - Smear currently shows GPC in clusters but no organisms on culture; in the setting of resurgence of fevers, restarted on IV Vanc on 06/18->. Continue Vancomycin oral Mild protein-calorie malnutrition 06/04/2015 04/11/2017 Overview: Nutrition following. Ice chips only per beside swallow evaluation. Advanced to popcicle and applesauce 07/19 A/P: Tolerating TF via corpak at goal. Continue TF at current rate, monitor labs. Speech evaluation today Ischemia of hand 06/01/2015 06/05/2015 Overview: Radial a line removed- good doppler signals Rooke mittens placed Heparin infusion for goal pTT 45-55. Ischemia of lower extremity 06/01/201505/13 Overview: Left lower extremity ischemia, has regained DP/PT doppler signals, but calf muscles remains somewhat tense. A/P: CKs normalizing, will stop following CK levels at this time. Vascular surgery signing off, appreciate assistance. 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 Radial art line was in LUE. Art line removed and arterial duplex showed radial artery thrombosis with patent ulnar artery. Pt now with strong pulse in L radial artery. Thrombocytopenia 06/01/2015 06/08/2015 Overview: Required massive transfusion after OR, placed on VA ECMO. Likely consumptive coagulopathy, however PF4 antibody sent given recent initiation of heparin IV. A/P: -Appears to be resolving, platelets 98,000 today. Cardiac insufficiency following cardiac surgery 05/30/2015 06/15/2015 Overview: Severe RV, arrived from OR on iflolan and Epi. iFlolan weaned off A/P: Off epi and iFlolan. Open chest wound 05/30/2015 06/11/2015 Overview: S/p Lung Tx A/P: Dressing intact, continue ATBX while chest is open. Possible closure today Volume overload 05/30/2015 09/02/2015 Overview: + fluid balance due to multiple transfusions and volume replacement for shock in the early post op period. A/P: - 1.9 L/24hr. Continue diuresis, monitor UOP and labs. Personal history of ECMO 05/30/2015 015 Overview: VV ECMO on 05/30, Transitioned to VA ECMO 05/31. VA ECMO weaned 06/03, back on VV ECMO Decannulated on 06/15. Stress hyperglycemia 05/30/2015 06/11/2015 Overview: S/P Lung Tx A/P: Stress hyperglycemia exacerbated by surgery and pressors. RHI infusion for glycemic control. Shock liver - hepatic insufficiency 05/30/2015 06/05/2015 Overview: Markedly elevated LFTs, persistent coagulopathy and bleeding despite near- continuous trasnfusion of blood products. Also recurrent hypoglycemia requiring D50 boluses and D10W infusion. A/P: LFTs downtrending. 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 Progressively hypoxemic after arrival to ICU despite maximal MV support with lung protective ventilation and inhaled epoprostenol. NMB, inverted I:E ratio, high PEEP, low Vt with permissive hypercapnia only helped transiently. VV ECMO placed. Optimize vent settings, BPH, pain control, VV ECMO. Worsening lung compliance d/t hypervolemia (pulm edema) and/ or PGD. Continues on iFlolan. Switched to VA ECMO but maintaining very low Vt plus high PEEP. 06/03 Washout with VA ECMO weaned. VV ECMO initiated. S/p ECMO decannulation 06/15. S/p trach 06/19. Tolerated ~>11hrs on 07/06, but CXR with increased atelectasis following. A/P: CXR with bilateral opacities. Tolerating TC ATC. Continue TC, BPH, pain control, OOB. Consumption coagulopathy 05/29/2015 015 Overview: S/P Lung Transplant. Severe coagulopathic bleeding intraop and immediately postop. Received multiple blood products - plts, cryoppt, FFP and prbcs. Also rewarming for postop hypothermia. A/P: 4u pRBC and 2u platelets distribution coordinator to OR. PF4 antibody negative Chest remains open. Hypotension 05/29/2015 06/15/2015 Overview: Post Lung Tx. Severely vasoplegic intraop and immediately postop requiring multiple inopressors. Received methylene blue bolus intraop. Arrived ICU on epi, norepi, vasopressin and phenylephrine was added in ICU to maintain MAP >60mmHg. Wean for MAP 65 or greater. A/P: Off epi. Maintain MAPs 65-75. Acute blood loss anemia 05/29/2015 09/02/20 15 Overview: H/H remains low but stable. 07/10: H/H 6.6/21--transfused 1 unit 07/11: Transfused for 6.8/21.3 A/P: Monitor H/H, transfuse prn. Acute postoperative pain 05/29/2015 015 Overview: Post op lung Tx A/P: Dilaudid and acetaminophen prn for pain Immunosuppressed status 05/29/2015 09/02/20 Overview: S/p b/l lung transplant on 05/29/2015 -immunosuppression and antiimicrobial prophylaxis as per Transplant Pulmonology. -Cont Tac/MMF/Pred. 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 BP has been on the lower side. Oxygen requirement increased to 3L from 2 L Plan: - Will get repeat Echo with bubble study (last one from January 2015). - Place a PA cath and continue to diurese while monitoring her right heart pressures. - Will need IV lasix-received 80 IV lasix on 04/20 and 100 IV lasix on 04/21 - Continue spironolactone. JAMES (acute kidney injury) 04/21/20152014 Overview: Baseline Cr 0.9 (04/09) -> Cr up to 2.4. A/P: JAMES is likely 2/2 ATN given hypotension and hemorrhage. Balance volume repletion with diuresis --> Cr continues to downtrend 1.92 -->1.37 today. Nephrology following - Maintain MAP 65 or greater, avoid nephrotoxic agents. Continue Lasix drip Hyponatremia with excess extracellular fluid vol ume 04/21/2015 06/02/2015 Overview: Likely hypervolemic hyponatremia. Na improved form 126 to 130 this am. Patient is already on torsemide, spironolactone and metolazone at home. Plan: - Continue to diurese as kidney function allows. 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 - O2 requirements as needed (uses 2L NC at home at night). - Continue home O2 - Patient was seen by lung transplant team. Tests required include: Quantitative perfusion scan (done) Gastric emptying study, esophageal manometry and 24hr pH study (ordered) Dental consultation (will need to call ) Social Work (on board) Iron deficiency anemia 01/25/2013 Overview: Menstruating female with iron deficiency Cardiomegaly 01/25/2013 09/02/2015 Overview: -- RV enlargement due to PH Exertional dyspnea 01/25/2013 09/02/2015 Mediastinal adenopathy 01/25/2013 5 Hilar adenopathy 01/25/2013 08/21/2015 Overview: Noted on imaging- mother with a history of Sarcoid Could be 2/2 to chronic VTE and pHTN Lung nodules 01/25/2013 09/02/2015 Overview: Noted on imaging Follow Anticoagulation management encounter 01/25/2013 01/26/2013 SUMMARY 01/24/2013 02/02/2013 Overview: This is a 17 year old female with no significant PMH other than migraine and minimal allergies who developed significant SOB within the past 2 months, this progressed to the point where she was unable to walk up 2 flights of stairs and had mild chest pressure with activty. This worsened on a recent trip to [place] where she was on a 6 hour plane ride leading to a near syncopal episode. She presented ot her PCP for fatigue and was found to have anemia, elevated WBC count and on echo a elevated RVSP and dilated RV. She was sent for CT at her local Ed where she was found to have 2 small PE's. Patient sent for further evaluation. At admission upon review of her Ct there is no PE noted, she does however have significant cardiomegaly, increase RVSP and right atrial dilatation, will need to work up cause of PAH PAH (pulmonary artery hypertension) 01/24/2013 08/21/2015 Overview: Found to have elevated RVSP on echo with RV dilatation. ? Sarcoid as she has a family hx as well as polyarthralgia and fatigue - now with hilar lymphadenopathy RHC revealing PA HTN. 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 as angio was suggestive of multiple PEs small and chronic Plan: Further Remodulin titration as an out-patient q weekly, now on 7.5 ng/kg/min PET scan for VALERIA in the chest complete 5/30 Night sweats 01/24/2013 08/21/2015 Overview: Unclear etiology- Awaiting further PAH workup and Rheum w/u is neg so far documented as of this encounter (statuses as of 12/23/2022) [facility] History of Past illness Narrative* Problem Noted Date Resolved Date Abnormality of gait 12/24/2015 04/11/2017 Ascites 07/13/2015 08/21/2015 Overview: Abdominal distension 07/09 KUB: air in stomach, repeat on 07/11: no dilated loops of bowel 07/11: US abdomen + ascites 07/13 Paracentesis ~ 2L straw colored fluid A/P: Abdomen soft, distended. No c/o abd. fullness. Monitor. Seizure 06/22/2015 08/21/2015 Overview: 06/22/2015 0230 Sudden new onset seizures - with generalized rhythmic contractions of all extremities plus facial twitching. Treated lorazepam and midazolam. Stat head CT negative for bleed. No acute metabolic changes on ABG. Concern for withdrawal from opioids - had been on high dose fentanyl infusion for 3 weeks -infusion d'tabitha on 06/18/15. Neuro consulted and continuous EEG monitoring ordered. Cont vEEG showing mild diffuse encephalopathy but no epileptiform form activity. A/P:: No seizure activity since 06/22. Keppra discontinued per ALD. Abdominal distension 06/15/2015 06/16/2015 Overview: TF held. KUB pending. Fever 06/08/2015 08/21/2015 Overview: S/p CT chest/abd 06/18, which showed RLL collapse, with findings suggestive of necrotic PNA, and scattered upper lobe opacities; moderate ascites, cholelithiasis and gallbladder sludging without cholecystitis. Remains afebrile. No leukocytosis. - Urine cx (06/07), neg; Bld cx (06/11) x2 - NGTD - One blood culture (06/06) grew lactobacillus - Bld/UA cx drawn (06/16) - neg - BAL cx (06/20): smear shows GPC in clusters - Bld cx (06/21) NGTD Plan: - Meropenem stopped on 06/22 - Cont PO Vancomycin through hospitalization - F/u BAL cx (06/20) - Smear currently shows GPC in clusters but no organisms on culture; in the setting of resurgence of fevers, restarted on IV Vanc on 06/18->. Continue Vancomycin oral Mild protein-calorie malnutrition 06/04/2015 04/11/2017 Overview: Nutrition following. Ice chips only per beside swallow evaluation. Advanced to popcicle and applesauce 07/19 A/P: Tolerating TF via corpak at goal. Continue TF at current rate, monitor labs. Speech evaluation today Ischemia of hand 06/01/2015 06/05/2015 Overview: Radial a line removed- good doppler signals Rooke mittens placed Heparin infusion for goal pTT 45-55. Ischemia of lower extremity 06/01/201505/13 Overview: Left lower extremity ischemia, has regained DP/PT doppler signals, but calf muscles remains somewhat tense. A/P: CKs normalizing, will stop following CK levels at this time. Vascular surgery signing off, appreciate assistance. 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 Radial art line was in LUE. Art line removed and arterial duplex showed radial artery thrombosis with patent ulnar artery. Pt now with strong pulse in L radial artery. Thrombocytopenia 06/01/2015 06/08/2015 Overview: Required massive transfusion after OR, placed on VA ECMO. Likely consumptive coagulopathy, however PF4 antibody sent given recent initiation of heparin IV. A/P: -Appears to be resolving, platelets 98,000 today. Cardiac insufficiency following cardiac surgery 05/30/2015 06/15/2015 Overview: Severe RV, arrived from OR on iflolan and Epi. iFlolan weaned off A/P: Off epi and iFlolan. Open chest wound 05/30/2015 06/11/2015 Overview: S/p Lung Tx A/P: Dressing intact, continue ATBX while chest is open. Possible closure today Volume overload 05/30/2015 09/02/2015 Overview: + fluid balance due to multiple transfusions and volume replacement for shock in the early post op period. A/P: - 1.9 L/24hr. Continue diuresis, monitor UOP and labs. Personal history of ECMO 05/30/2015 015 Overview: VV ECMO on 05/30, Transitioned to VA ECMO 05/31. VA ECMO weaned 06/03, back on VV ECMO Decannulated on 06/15. Stress hyperglycemia 05/30/2015 06/11/2015 Overview: S/P Lung Tx A/P: Stress hyperglycemia exacerbated by surgery and pressors. RHI infusion for glycemic control. Shock liver - hepatic insufficiency 05/30/2015 06/05/2015 Overview: Markedly elevated LFTs, persistent coagulopathy and bleeding despite near- continuous trasnfusion of blood products. Also recurrent hypoglycemia requiring D50 boluses and D10W infusion. A/P: LFTs downtrending. 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 Progressively hypoxemic after arrival to ICU despite maximal MV support with lung protective ventilation and inhaled epoprostenol. NMB, inverted I:E ratio, high PEEP, low Vt with permissive hypercapnia only helped transiently. VV ECMO placed. Optimize vent settings, BPH, pain control, VV ECMO. Worsening lung compliance d/t hypervolemia (pulm edema) and/ or PGD. Continues on iFlolan. Switched to VA ECMO but maintaining very low Vt plus high PEEP. 06/03 Washout with VA ECMO weaned. VV ECMO initiated. S/p ECMO decannulation 06/15. S/p trach 06/19. Tolerated ~>11hrs on 07/06, but CXR with increased atelectasis following. A/P: CXR with bilateral opacities. Tolerating TC ATC. Continue TC, BPH, pain control, OOB. Consumption coagulopathy 05/29/2015 015 Overview: S/P Lung Transplant. Severe coagulopathic bleeding intraop and immediately postop. Received multiple blood products - plts, cryoppt, FFP and prbcs. Also rewarming for postop hypothermia. A/P: 4u pRBC and 2u platelets distribution coordinator to OR. PF4 antibody negative Chest remains open. Hypotension 05/29/2015 06/15/2015 Overview: Post Lung Tx. Severely vasoplegic intraop and immediately postop requiring multiple inopressors. Received methylene blue bolus intraop. Arrived ICU on epi, norepi, vasopressin and phenylephrine was added in ICU to maintain MAP >60mmHg. Wean for MAP 65 or greater. A/P: Off epi. Maintain MAPs 65-75. Acute blood loss anemia 05/29/2015 09/02/20 15 Overview: H/H remains low but stable. 07/10: H/H 6.6/21--transfused 1 unit 07/11: Transfused for 6.8.3 A/P: Monitor H/H, transfuse prn. Acute postoperative pain 05/29/2015 015 Overview: Post op lung Tx A/P: Dilaudid and acetaminophen prn for pain Immunosuppressed status 05/29/2015 09/02/20 15 Overview: S/p b/l lung transplant on 05/29/2015 -immunosuppression and antiimicrobial prophylaxis as per Transplant Pulmonology. -Cont Tac/MMF/Pred. 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 BP has been on the lower side. Oxygen requirement increased to 3L from 2 L Plan: - Will get repeat Echo with bubble study (last one from January 2015). - Place a PA cath and continue to diurese while monitoring her right heart pressures. - Will need IV lasix-received 80 IV lasix on 04/20 and 100 IV lasix on 04/21 - Continue spironolactone. JAMES (acute kidney injury) 04/21/20152014 Overview: Baseline Cr 0.9 (04/09) -> Cr up to 2.4. A/P: JAMES is likely 2/2 ATN given hypotension and hemorrhage. Balance volume repletion with diuresis --> Cr continues to downtrend 1.92 -->1.37 today. Nephrology following - Maintain MAP 65 or greater, avoid nephrotoxic agents. Continue Lasix drip Hyponatremia with excess extracellular fluid vol ume 04/21/2015 06/02/2015 Overview: Likely hypervolemic hyponatremia. Na improved form 126 to 130 this am. Patient is already on torsemide, spironolactone and metolazone at home. Plan: - Continue to diurese as kidney function allows. 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 - O2 requirements as needed (uses 2L NC at home at night). - Continue home O2 - Patient was seen by lung transplant team. Tests required include: Quantitative perfusion scan (done) Gastric emptying study, esophageal manometry and 24hr pH study (ordered) Dental consultation (will need to call ) Social Work (on board) Iron deficiency anemia 01/25/2013 7 Overview: Menstruating female with iron deficiency Cardiomegaly 01/25/2013 09/02/2015 Overview: -- RV enlargement due to PH Exertional dyspnea 01/25/2013 09/02/2015 Mediastinal adenopathy 01/25/2013 5 Hilar adenopathy 01/25/2013 08/21/2015 Overview: Noted on imaging- mother with a history of Sarcoid Could be 2/2 to chronic VTE and pHTN Lung nodules 01/25/2013 09/02/2015 Overview: Noted on imaging Follow Anticoagulation management encounter 01/25/2013 01/26/2013 SUMMARY 01/24/2013 02/02/2013 Overview: This is a 17 year old female with no significant PMH other than migraine and minimal allergies who developed significant SOB within the past 2 months, this progressed to the point where she was unable to walk up 2 flights of stairs and had mild chest pressure with activty. This worsened on a recent trip to [place] where she was on a 6 hour plane ride leading to a near syncopal episode. She presented ot her PCP for fatigue and was found to have anemia, elevated WBC count and on echo a elevated RVSP and dilated RV. She was sent for CT at her local Ed where she was found to have 2 small PE's. Patient sent for further evaluation. At admission upon review of her Ct there is no PE noted, she does however have significant cardiomegaly, increase RVSP and right atrial dilatation, will need to work up cause of PAH PAH (pulmonary artery hypertension) 01/24/2013 08/21/2015 Overview: Found to have elevated RVSP on echo with RV dilatation. ? Sarcoid as she has a family hx as well as polyarthralgia and fatigue - now with hilar lymphadenopathy RHC revealing PA HTN. 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 as angio was suggestive of multiple PEs small and chronic Plan: Further Remodulin titration as an out-patient q weekly, now on 7.5 ng/kg/min PET scan for VALERIA in the chest complete 02/07 Night sweats 01/24/2013 08/21/2015 Overview: Unclear etiology- Awaiting further PAH workup and Rheum w/u is neg so far documented as of this encounter (statuses as of 01/04/2023) [facility] History of Past illness Narrative* Problem Noted Date Resolved Date Abnormality of gait 12/24/2015 04/11/2017 Ascites 07/13/2015 08/21/2015 Overview: Abdominal distension 07/09 KUB: air in stomach, repeat on 07/11: no dilated loops of bowel 07/11: US abdomen + ascites 07/13 Paracentesis ~ 2L straw colored fluid A/P: Abdomen soft, distended. No c/o abd. fullness. Monitor. Seizure 06/22/2015 08/21/2015 Overview: 06/22/2015 0230 Sudden new onset seizures - with generalized rhythmic contractions of all extremities plus facial twitching. Treated lorazepam and midazolam. Stat head CT negative for bleed. No acute metabolic changes on ABG. Concern for withdrawal from opioids - had been on high dose fentanyl infusion for 3 weeks -infusion d'tabitha on 06/18/15. Neuro consulted and continuous EEG monitoring ordered. Cont vEEG showing mild diffuse encephalopathy but no epileptiform form activity. A/P:: No seizure activity since 06/22. Keppra discontinued per ALD. Abdominal distension 06/15/2015 06/16/2015 Overview: TF held. KUB pending. Fever 06/08/2015 08/21/2015 Overview: S/p CT chest/abd 06/18, which showed RLL collapse, with findings suggestive of necrotic PNA, and scattered upper lobe opacities; moderate ascites, cholelithiasis and gallbladder sludging without cholecystitis. Remains afebrile. No leukocytosis. - Urine cx (06/07), neg; Bld cx (06/11) x2 - NGTD - One blood culture (06/06) grew lactobacillus - Bld/UA cx drawn (06/16) - neg - BAL cx (06/20): smear shows GPC in clusters - Bld cx (06/21) NGTD Plan: - Meropenem stopped on 06/22 - Cont PO Vancomycin through hospitalization - F/u BAL cx (06/20) - Smear currently shows GPC in clusters but no organisms on culture; in the setting of resurgence of fevers, restarted on IV Vanc on 06/18->. Continue Vancomycin oral Mild protein-calorie malnutrition 06/04/2015 04/11/2017 Overview: Nutrition following. Ice chips only per beside swallow evaluation. Advanced to popcicle and applesauce 07/19 A/P: Tolerating TF via corpak at goal. Continue TF at current rate, monitor labs. Speech evaluation today Ischemia of hand 06/01/2015 06/05/2015 Overview: Radial a line removed- good doppler signals Rooke mittens placed Heparin infusion for goal pTT 45-55. Ischemia of lower extremity 06/01/201505/13 Overview: Left lower extremity ischemia, has regained DP/PT doppler signals, but calf muscles remains somewhat tense. A/P: CKs normalizing, will stop following CK levels at this time. Vascular surgery signing off, appreciate assistance. 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 Radial art line was in LUE. Art line removed and arterial duplex showed radial artery thrombosis with patent ulnar artery. Pt now with strong pulse in L radial artery. Thrombocytopenia 06/01/2015 06/08/2015 Overview: Required massive transfusion after OR, placed on VA ECMO. Likely consumptive coagulopathy, however PF4 antibody sent given recent initiation of heparin IV. A/P: -Appears to be resolving, platelets 98,000 today. Cardiac insufficiency following cardiac surgery 05/30/2015 06/15/2015 Overview: Severe RV, arrived from OR on iflolan and Epi. iFlolan weaned off A/P: Off epi and iFlolan. Open chest wound 05/30/2015 06/11/2015 Overview: S/p Lung Tx A/P: Dressing intact, continue ATBX while chest is open. Possible closure today Volume overload 05/30/2015 09/02/2015 Overview: + fluid balance due to multiple transfusions and volume replacement for shock in the early post op period. A/P: - 1.9 L/24hr. Continue diuresis, monitor UOP and labs. Personal history of ECMO 05/30/2015 015 Overview: VV ECMO on 05/30, Transitioned to VA ECMO 05/31. VA ECMO weaned 06/03, back on VV ECMO Decannulated on 06/15. Stress hyperglycemia 05/30/2015 06/11/2015 Overview: S/P Lung Tx A/P: Stress hyperglycemia exacerbated by surgery and pressors. RHI infusion for glycemic control. Shock liver - hepatic insufficiency 05/30/2015 06/05/2015 Overview: Markedly elevated LFTs, persistent coagulopathy and bleeding despite near- continuous trasnfusion of blood products. Also recurrent hypoglycemia requiring D50 boluses and D10W infusion. A/P: LFTs downtrending. 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 Progressively hypoxemic after arrival to ICU despite maximal MV support with lung protective ventilation and inhaled epoprostenol. NMB, inverted I:E ratio, high PEEP, low Vt with permissive hypercapnia only helped transiently. VV ECMO placed. Optimize vent settings, BPH, pain control, VV ECMO. Worsening lung compliance d/t hypervolemia (pulm edema) and/ or PGD. Continues on iFlolan. Switched to VA ECMO but maintaining very low Vt plus high PEEP. 06/03 Washout with VA ECMO weaned. VV ECMO initiated. S/p ECMO decannulation 06/15. S/p trach 10/9. Tolerated ~>11hrs on 07/06, but CXR with increased atelectasis following. A/P: CXR with bilateral opacities. Tolerating TC ATC. Continue TC, BPH, pain control, OOB. Consumption coagulopathy 05/29/2015 015 Overview: S/P Lung Transplant. Severe coagulopathic bleeding intraop and immediately postop. Received multiple blood products - plts, cryoppt, FFP and prbcs. Also rewarming for postop hypothermia. A/P: 4u pRBC and 2u platelets distribution coordinator to OR. PF4 antibody negative Chest remains open. Hypotension 05/29/2015 06/15/2015 Overview: Post Lung Tx. Severely vasoplegic intraop and immediately postop requiring multiple inopressors. Received methylene blue bolus intraop. Arrived ICU on epi, norepi, vasopressin and phenylephrine was added in ICU to maintain MAP >60mmHg. Wean for MAP 65 or greater. A/P: Off epi. Maintain MAPs 65-75. Acute blood loss anemia 05/29/2015 09/02/20 15 Overview: H/H remains low but stable. 07/10: H/H 6.6/21--transfused 1 unit 07/11: Transfused for 6.8/21.3 A/P: Monitor H/H, transfuse prn. Acute postoperative pain 05/29/2015 015 Overview: Post op lung Tx A/P: Dilaudid and acetaminophen prn for pain Immunosuppressed status 05/29/2015 09/02/20 15 Overview: S/p b/l lung transplant on 05/29/2015 -immunosuppression and antiimicrobial prophylaxis as per Transplant Pulmonology. -Cont Tac/MMF/Pred. 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 BP has been on the lower side. Oxygen requirement increased to 3L from 2 L Plan: - Will get repeat Echo with bubble study (last one from January 2015). - Place a PA cath and continue to diurese while monitoring her right heart pressures. - Will need IV lasix-received 80 IV lasix on 04/20 and 100 IV lasix on 04/21 - Continue spironolactone. JAMES (acute kidney injury) 04/21/20152014 Overview: Baseline Cr 0.9 (04/09) -> Cr up to 2.4. A/P: JAMES is likely 2/2 ATN given hypotension and hemorrhage. Balance volume repletion with diuresis --> Cr continues to downtrend 1.92 -->1.37 today. Nephrology following - Maintain MAP 65 or greater, avoid nephrotoxic agents. Continue Lasix drip Hyponatremia with excess extracellular fluid vol ume 04/21/2015 06/02/2015 Overview: Likely hypervolemic hyponatremia. Na improved form 126 to 130 this am. Patient is already on torsemide, spironolactone and metolazone at home. Plan: - Continue to diurese as kidney function allows. 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 - O2 requirements as needed (uses 2L NC at home at night). - Continue home O2 - Patient was seen by lung transplant team. Tests required include: Quantitative perfusion scan (done) Gastric emptying study, esophageal manometry and 24hr pH study (ordered) Dental consultation (will need to call ) Social Work (on board) Iron deficiency anemia 01/25/2013 7 Overview: Menstruating female with iron deficiency Cardiomegaly 01/25/2013 09/02/2015 Overview: -- RV enlargement due to PH Exertional dyspnea 01/25/2013 09/02/2015 Mediastinal adenopathy 01/25/2013 5 Hilar adenopathy 01/25/2013 08/21/2015 Overview: Noted on imaging- mother with a history of Sarcoid Could be 2/2 to chronic VTE and pHTN Lung nodules 01/25/2013 09/02/2015 Overview: Noted on imaging Follow Anticoagulation management encounter 01/25/2013 01/26/2013 SUMMARY 01/24/2013 02/02/2013 Overview: This is a 17 year old female with no significant PMH other than migraine and minimal allergies who developed significant SOB within the past 2 months, this progressed to the point where she was unable to walk up 2 flights of stairs and had mild chest pressure with activty. This worsened on a recent trip to [place] where she was on a 6 hour plane ride leading to a near syncopal episode. She presented ot her PCP for fatigue and was found to have anemia, elevated WBC count and on echo a elevated RVSP and dilated RV. She was sent for CT at her local Ed where she was found to have 2 small PE's. Patient sent for further evaluation. At admission upon review of her Ct there is no PE noted, she does however have significant cardiomegaly, increase RVSP and right atrial dilatation, will need to work up cause of PAH PAH (pulmonary artery hypertension) 01/24/2013 08/21/2015 Overview: Found to have elevated RVSP on echo with RV dilatation. ? Sarcoid as she has a family hx as well as polyarthralgia and fatigue - now with hilar lymphadenopathy RHC revealing PA HTN. 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 as angio was suggestive of multiple PEs small and chronic Plan: Further Remodulin titration as an out-patient q weekly, now on 7.5 ng/kg/min PET scan for VALERIA in the chest complete 02/07 Night sweats 01/24/2013 08/21/2015 Overview: Unclear etiology- Awaiting further PAH workup and Rheum w/u is neg so far documented as of this encounter (statuses as of 01/05/2023) [facility] History of Past illness Narrative* Problem Noted Date Resolved Date Abnormality of gait 12/24/2015 04/11/2017 Ascites 07/13/2015 08/21/2015 Overview: Abdominal distension 07/09 KUB: air in stomach, repeat on 07/11: no dilated loops of bowel 07/11: US abdomen + ascites 07/13 Paracentesis ~ 2L straw colored fluid A/P: Abdomen soft, distended. No c/o abd. fullness. Monitor. Seizure 06/22/2015 08/21/2015 Overview: 06/22/2015 0230 Sudden new onset seizures - with generalized rhythmic contractions of all extremities plus facial twitching. Treated lorazepam and midazolam. Stat head CT negative for bleed. No acute metabolic changes on ABG. Concern for withdrawal from opioids - had been on high dose fentanyl infusion for 3 weeks -infusion d'tabitha on 06/18/15. Neuro consulted and continuous EEG monitoring ordered. Cont vEEG showing mild diffuse encephalopathy but no epileptiform form activity. A/P:: No seizure activity since 06/22. Keppra discontinued per ALD. Abdominal distension 06/15/2015 06/16/2015 Overview: TF held. KUB pending. Fever 06/08/2015 08/21/2015 Overview: S/p CT chest/abd 06/18, which showed RLL collapse, with findings suggestive of necrotic PNA, and scattered upper lobe opacities; moderate ascites, cholelithiasis and gallbladder sludging without cholecystitis. Remains afebrile. No leukocytosis. - Urine cx (06/07), neg; Bld cx (06/11) x2 - NGTD - One blood culture (06/06) grew lactobacillus - Bld/UA cx drawn (06/16) - neg - BAL cx (06/20): smear shows GPC in clusters - Bld cx (06/21) NGTD Plan: - Meropenem stopped on 06/22 - Cont PO Vancomycin through hospitalization - F/u BAL cx (06/20) - Smear currently shows GPC in clusters but no organisms on culture; in the setting of resurgence of fevers, restarted on IV Vanc on 06/18->. Continue Vancomycin oral Mild protein-calorie malnutrition 06/04/2015 04/11/2017 Overview: Nutrition following. Ice chips only per beside swallow evaluation. Advanced to popcicle and applesauce 07/19 A/P: Tolerating TF via corpak at goal. Continue TF at current rate, monitor labs. Speech evaluation today Ischemia of hand 06/01/2015 06/05/2015 Overview: Radial a line removed- good doppler signals Rooke mittens placed Heparin infusion for goal pTT 45-55. Ischemia of lower extremity 06/01/201505/13 Overview: Left lower extremity ischemia, has regained DP/PT doppler signals, but calf muscles remains somewhat tense. A/P: CKs normalizing, will stop following CK levels at this time. Vascular surgery signing off, appreciate assistance. 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 Radial art line was in LUE. Art line removed and arterial duplex showed radial artery thrombosis with patent ulnar artery. Pt now with strong pulse in L radial artery. Thrombocytopenia 06/01/2015 06/08/2015 Overview: Required massive transfusion after OR, placed on VA ECMO. Likely consumptive coagulopathy, however PF4 antibody sent given recent initiation of heparin IV. A/P: -Appears to be resolving, platelets 98,000 today. Cardiac insufficiency following cardiac surgery 05/30/2015 06/15/2015 Overview: Severe RV, arrived from OR on iflolan and Epi. iFlolan weaned off A/P: Off epi and iFlolan. Open chest wound 05/30/2015 06/11/2015 Overview: S/p Lung Tx A/P: Dressing intact, continue ATBX while chest is open. Possible closure today Volume overload 05/30/2015 09/02/2015 Overview: + fluid balance due to multiple transfusions and volume replacement for shock in the early post op period. A/P: - 1.9 L/24hr. Continue diuresis, monitor UOP and labs. Personal history of ECMO 05/30/2015 015 Overview: VV ECMO on 05/30, Transitioned to VA ECMO 05/31. VA ECMO weaned 06/03, back on VV ECMO Decannulated on 06/15. Stress hyperglycemia 05/30/2015 06/11/2015 Overview: S/P Lung Tx A/P: Stress hyperglycemia exacerbated by surgery and pressors. RHI infusion for glycemic control. Shock liver - hepatic insufficiency 05/30/2015 06/05/2015 Overview: Markedly elevated LFTs, persistent coagulopathy and bleeding despite near- continuous trasnfusion of blood products. Also recurrent hypoglycemia requiring D50 boluses and D10W infusion. A/P: LFTs downtrending. 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 Progressively hypoxemic after arrival to ICU despite maximal MV support with lung protective ventilation and inhaled epoprostenol. NMB, inverted I:E ratio, high PEEP, low Vt with permissive hypercapnia only helped transiently. VV ECMO placed. Optimize vent settings, BPH, pain control, VV ECMO. Worsening lung compliance d/t hypervolemia (pulm edema) and/ or PGD. Continues on iFlolan. Switched to VA ECMO but maintaining very low Vt plus high PEEP. 06/03 Washout with VA ECMO weaned. VV ECMO initiated. S/p ECMO decannulation 06/15. S/p trach 06/19. Tolerated ~>11hrs on 07/06, but CXR with increased atelectasis following. A/P: CXR with bilateral opacities. Tolerating TC ATC. Continue TC, BPH, pain control, OOB. Consumption coagulopathy 05/29/2015 015 Overview: S/P Lung Transplant. Severe coagulopathic bleeding intraop and immediately postop. Received multiple blood products - plts, cryoppt, FFP and prbcs. Also rewarming for postop hypothermia. A/P: 4u pRBC and 2u platelets distribution coordinator to OR. PF4 antibody negative Chest remains open. Hypotension 05/29/2015 06/15/2015 Overview: Post Lung Tx. Severely vasoplegic intraop and immediately postop requiring multiple inopressors. Received methylene blue bolus intraop. Arrived ICU on epi, norepi, vasopressin and phenylephrine was added in ICU to maintain MAP >60mmHg. Wean for MAP 65 or greater. A/P: Off epi. Maintain MAPs 65-75. Acute blood loss anemia 05/29/2015 09/02/20 15 Overview: H/H remains low but stable. 07/10: H/H 6.6/21--transfused 1 unit 07/11: Transfused for 6.8/21.3 A/P: Monitor H/H, transfuse prn. Acute postoperative pain 05/29/2015 015 Overview: Post op lung Tx A/P: Dilaudid and acetaminophen prn for pain Hypothermia following anesthesia 05/29/2015 06/02/2015 Overview: 05/30/2015 Rewarming with forced warm air blanket Lactic acidosis 05/29/2015 06/03/2015 Overview: S/P Lung Tx A/P: Resolved with lactate levels of 1.2 today Right heart failure, NYHA class 4 04/27/2015 08/21/2015 Right heart failure due to pulmonary hypertensio n 04/21/2015 06/02/2015 Overview: Patient with right heart failure stigmata (JVD, ascites and lower extremity edema). BP has been on the lower side. Oxygen requirement increased to 3L from 2 L Plan: - Will get repeat Echo with bubble study (last one from January 2015). - Place a PA cath and continue to diurese while monitoring her right heart pressures. - Will need IV lasix-received 80 IV lasix on 04/20 and 100 IV lasix on 04/21 - Continue spironolactone. JAMES (acute kidney injury) 04/21/20152014 Overview: Baseline Cr 0.9 (04/09) -> Cr up to 2.4. A/P: JAMES is likely 2/2 ATN given hypotension and hemorrhage. Balance volume repletion with diuresis --> Cr continues to downtrend 1.92 -->1.37 today. Nephrology following - Maintain MAP 65 or greater, avoid nephrotoxic agents. Continue Lasix drip Hyponatremia with excess extracellular fluid vol ume 04/21/2015 06/02/2015 Overview: Likely hypervolemic hyponatremia. Na improved form 126 to 130 this am. Patient is already on torsemide, spironolactone and metolazone at home. Plan: - Continue to diurese as kidney function allows. 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 - O2 requirements as needed (uses 2L NC at home at night). - Continue home O2 - Patient was seen by lung transplant team. Tests required include: Quantitative perfusion scan (done) Gastric emptying study, esophageal manometry and 24hr pH study (ordered) Dental consultation (will need to call ) Social Work (on board) Iron deficiency anemia 01/25/2013 7 Overview: Menstruating female with iron deficiency Cardiomegaly 01/25/2013 09/02/2015 Overview: -- RV enlargement due to PH Exertional dyspnea 01/25/2013 09/02/2015 Mediastinal adenopathy 01/25/2013 5 Hilar adenopathy 01/25/2013 08/21/2015 Overview: Noted on imaging- mother with a history of Sarcoid Could be 2/2 to chronic VTE and pHTN Lung nodules 01/25/2013 09/02/2015 Overview: Noted on imaging Follow Anticoagulation management encounter 01/25/2013 01/26/2013 SUMMARY 01/24/2013 02/02/2013 Overview: This is a 17 year old female with no significant PMH other than migraine and minimal allergies who developed significant SOB within the past 2 months, this progressed to the point where she was unable to walk up 2 flights of stairs and had mild chest pressure with activty. This worsened on a recent trip to [place] where she was on a 6 hour plane ride leading to a near syncopal episode. She presented ot her PCP for fatigue and was found to have anemia, elevated WBC count and on echo a elevated RVSP and dilated RV. She was sent for CT at her local Ed where she was found to have 2 small PE's. Patient sent for further evaluation. At admission upon review of her Ct there is no PE noted, she does however have significant cardiomegaly, increase RVSP and right atrial dilatation, will need to work up cause of PAH PAH (pulmonary artery hypertension) 01/24/2013 08/21/2015 Overview: Found to have elevated RVSP on echo with RV dilatation. ? Sarcoid as she has a family hx as well as polyarthralgia and fatigue - now with hilar lymphadenopathy RHC revealing PA HTN. 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 as angio was suggestive of multiple PEs small and chronic Plan: Further Remodulin titration as an out-patient q weekly, now on 7.5 ng/kg/min PET scan for VALERIA in the chest complete 02/07 Night sweats 01/24/2013 08/21/2015 Overview: Unclear etiology- Awaiting further PAH workup and Rheum w/u is neg so far documented as of this encounter (statuses as of 02/07/2023) [facility] History of Past illness Narrative* Problem Noted Date Resolved Date Abnormality of gait 12/24/2015 04/11/2017 Ascites 07/13/2015 08/21/2015 Overview: Abdominal distension 07/09 KUB: air in stomach, repeat on 07/11: no dilated loops of bowel 07/11: US abdomen + ascites 07/13 Paracentesis ~ 2L straw colored fluid A/P: Abdomen soft, distended. No c/o abd. fullness. Monitor. Seizure 06/22/2015 08/21/2015 Overview: 06/22/2015 0230 Sudden new onset seizures - with generalized rhythmic contractions of all extremities plus facial twitching. Treated lorazepam and midazolam. Stat head CT negative for bleed. No acute metabolic changes on ABG. Concern for withdrawal from opioids - had been on high dose fentanyl infusion for 3 weeks -infusion d'tabitha on 06/18/15. Neuro consulted and continuous EEG monitoring ordered. Cont vEEG showing mild diffuse encephalopathy but no epileptiform form activity. A/P:: No seizure activity since 06/22. Keppra discontinued per ALD. Abdominal distension 06/15/2015 06/16/2015 Overview: TF held. KUB pending. Fever 06/08/2015 08/21/2015 Overview: S/p CT chest/abd 06/18, which showed RLL collapse, with findings suggestive of necrotic PNA, and scattered upper lobe opacities; moderate ascites, cholelithiasis and gallbladder sludging without cholecystitis. Remains afebrile. No leukocytosis. - Urine cx (06/07), neg; Bld cx (06/11) x2 - NGTD - One blood culture (06/06) grew lactobacillus - Bld/UA cx drawn (06/16) - neg - BAL cx (06/20): smear shows GPC in clusters - Bld cx (06/21) NGTD Plan: - Meropenem stopped on 06/22 - Cont PO Vancomycin through hospitalization - F/u BAL cx (06/20) - Smear currently shows GPC in clusters but no organisms on culture; in the setting of resurgence of fevers, restarted on IV Vanc on 06/18->. Continue Vancomycin oral Mild protein-calorie malnutrition 06/04/2015 04/11/2017 Overview: Nutrition following. Ice chips only per beside swallow evaluation. Advanced to popcicle and applesauce 07/19 A/P: Tolerating TF via corpak at goal. Continue TF at current rate, monitor labs. Speech evaluation today Ischemia of hand 06/01/2015 06/05/2015 Overview: Radial a line removed- good doppler signals Rooke senthil placed Heparin infusion for goal pTT 45-55. Ischemia of lower extremity 06/01/201505/13 Overview: Left lower extremity ischemia, has regained DP/PT doppler signals, but calf muscles remains somewhat tense. A/P: CKs normalizing, will stop following CK levels at this time. Vascular surgery signing off, appreciate assistance. 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 Radial art line was in LUE. Art line removed and arterial duplex showed radial artery thrombosis with patent ulnar artery. Pt now with strong pulse in L radial artery. Thrombocytopenia 06/01/2015 06/08/2015 Overview: Required massive transfusion after OR, placed on VA ECMO. Likely consumptive coagulopathy, however PF4 antibody sent given recent initiation of heparin IV. A/P: -Appears to be resolving, platelets 98,000 today. Cardiac insufficiency following cardiac surgery 05/30/2015 06/15/2015 Overview: Severe RV, arrived from OR on iflolan and Epi. iFlolan weaned off A/P: Off epi and iFlolan. Open chest wound 05/30/2015 06/11/2015 Overview: S/p Lung Tx A/P: Dressing intact, continue ATBX while chest is open. Possible closure today Volume overload 05/30/2015 09/02/2015 Overview: + fluid balance due to multiple transfusions and volume replacement for shock in the early post op period. A/P: - 1.9 L/24hr. Continue diuresis, monitor UOP and labs. Personal history of ECMO 05/30/2015 015 Overview: VV ECMO on 05/30, Transitioned to VA ECMO 05/31. VA ECMO weaned 06/03, back on VV ECMO Decannulated on 06/15. Stress hyperglycemia 05/30/2015 06/11/2015 Overview: S/P Lung Tx A/P: Stress hyperglycemia exacerbated by surgery and pressors. RHI infusion for glycemic control. Shock liver - hepatic insufficiency 05/30/2015 06/05/2015 Overview: Markedly elevated LFTs, persistent coagulopathy and bleeding despite near- continuous trasnfusion of blood products. Also recurrent hypoglycemia requiring D50 boluses and D10W infusion. A/P: LFTs downtrending. 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 Progressively hypoxemic after arrival to ICU despite maximal MV support with lung protective ventilation and inhaled epoprostenol. NMB, inverted I:E ratio, high PEEP, low Vt with permissive hypercapnia only helped transiently. VV ECMO placed. Optimize vent settings, BPH, pain control, VV ECMO. Worsening lung compliance d/t hypervolemia (pulm edema) and/ or PGD. Continues on iFlolan. Switched to VA ECMO but maintaining very low Vt plus high PEEP. 06/03 Washout with VA ECMO weaned. VV ECMO initiated. S/p ECMO decannulation 06/15. S/p trach 06/19. Tolerated ~>11hrs on 07/06, but CXR with increased atelectasis following. A/P: CXR with bilateral opacities. Tolerating TC ATC. Continue TC, BPH, pain control, OOB. Consumption coagulopathy 05/29/2015 015 Overview: S/P Lung Transplant. Severe coagulopathic bleeding intraop and immediately postop. Received multiple blood products - plts, cryoppt, FFP and prbcs. Also rewarming for postop hypothermia. A/P: 4u pRBC and 2u platelets distribution coordinator to OR. PF4 antibody negative Chest remains open. Hypotension 05/29/2015 06/15/2015 Overview: Post Lung Tx. Severely vasoplegic intraop and immediately postop requiring multiple inopressors. Received methylene blue bolus intraop. Arrived ICU on epi, norepi, vasopressin and phenylephrine was added in ICU to maintain MAP >60mmHg. Wean for MAP 65 or greater. A/P: Off epi. Maintain MAPs 65-75. Acute blood loss anemia 05/29/2015 09/02/20 15 Overview: H/H remains low but stable. 07/10: H/H 6.6/21--transfused 1 unit 07/11: Transfused for 6.8/21.3 A/P: Monitor H/H, transfuse prn. Acute postoperative pain 05/29/2015 015 Overview: Post op lung Tx A/P: Dilaudid and acetaminophen prn for pain Hypothermia following anesthesia 05/29/2015 06/02/2015 Overview: 05/30/2015 Rewarming with forced warm air blanket Lactic acidosis 05/29/2015 06/03/2015 Overview: S/P Lung Tx A/P: Resolved with lactate levels of 1.2 today Right heart failure, NYHA class 4 04/27/2015 08/21/2015 Right heart failure due to pulmonary hypertensio n 04/21/2015 06/02/2015 Overview: Patient with right heart failure stigmata (JVD, ascites and lower extremity edema). BP has been on the lower side. Oxygen requirement increased to 3L from 2 L Plan: - Will get repeat Echo with bubble study (last one from January 2015). - Place a PA cath and continue to diurese while monitoring her right heart pressures. - Will need IV lasix-received 80 IV lasix on 04/20 and 100 IV lasix on 04/21 - Continue spironolactone. JAMES (acute kidney injury) 04/21/20152014 Overview: Baseline Cr 0.9 (04/09) -> Cr up to 2.4. A/P: JAMES is likely 2/2 ATN given hypotension and hemorrhage. Balance volume repletion with diuresis --> Cr continues to downtrend 1.92 -->1.37 today. Nephrology following - Maintain MAP 65 or greater, avoid nephrotoxic agents. Continue Lasix drip Hyponatremia with excess extracellular fluid vol ume 04/21/2015 06/02/2015 Overview: Likely hypervolemic hyponatremia. Na improved form 126 to 130 this am. Patient is already on torsemide, spironolactone and metolazone at home. Plan: - Continue to diurese as kidney function allows. 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 - O2 requirements as needed (uses 2L NC at home at night). - Continue home O2 - Patient was seen by lung transplant team. Tests required include: Quantitative perfusion scan (done) Gastric emptying study, esophageal manometry and 24hr pH study (ordered) Dental consultation (will need to call ) Social Work (on board) Iron deficiency anemia 01/25/2013 08/01/201 7 Overview: Menstruating female with iron deficiency Cardiomegaly 01/25/2013 09/02/2015 Overview: -- RV enlargement due to PH Exertional dyspnea 01/25/2013 09/02/2015 Mediastinal adenopathy 01/25/2013 5 Hilar adenopathy 01/25/2013 08/21/2015 Overview: Noted on imaging- mother with a history of Sarcoid Could be 2/2 to chronic VTE and pHTN Lung nodules 01/25/2013 09/02/2015 Overview: Noted on imaging Follow Anticoagulation management encounter 01/25/2013 01/26/2013 SUMMARY 01/24/2013 02/02/2013 Overview: This is a 17 year old female with no significant PMH other than migraine and minimal allergies who developed significant SOB within the past 2 months, this progressed to the point where she was unable to walk up 2 flights of stairs and had mild chest pressure with activty. This worsened on a recent trip to [place] where she was on a 6 hour plane ride leading to a near syncopal episode. She presented ot her PCP for fatigue and was found to have anemia, elevated WBC count and on echo a elevated RVSP and dilated RV. She was sent for CT at her local Ed where she was found to have 2 small PE's. Patient sent for further evaluation. At admission upon review of her Ct there is no PE noted, she does however have significant cardiomegaly, increase RVSP and right atrial dilatation, will need to work up cause of PAH PAH (pulmonary artery hypertension) 01/24/2013 08/21/2015 Overview: Found to have elevated RVSP on echo with RV dilatation. ? Sarcoid as she has a family hx as well as polyarthralgia and fatigue - now with hilar lymphadenopathy RHC revealing PA HTN. 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 as angio was suggestive of multiple PEs small and chronic Plan: Further Remodulin titration as an out-patient q weekly, now on 7.5 ng/kg/min PET scan for VALERIA in the chest complete 02/07 Night sweats 01/24/2013 08/21/2015 Overview: Unclear etiology- Awaiting further PAH workup and Rheum w/u is neg so far documented as of this encounter (statuses as of 02/08/2023) [facility] History of Past illness Narrative* Problem Noted Date Resolved Date Abnormality of gait 12/24/2015 04/11/2017 Ascites 07/13/2015 08/21/2015 Overview: Abdominal distension 07/09 KUB: air in stomach, repeat on 07/11: no dilated loops of bowel 07/11: US abdomen + ascites 07/13 Paracentesis ~ 2L straw colored fluid A/P: Abdomen soft, distended. No c/o abd. fullness. Monitor. Seizure 06/22/2015 08/21/2015 Overview: 06/22/2015 0230 Sudden new onset seizures - with generalized rhythmic contractions of all extremities plus facial twitching. Treated lorazepam and midazolam. Stat head CT negative for bleed. No acute metabolic changes on ABG. Concern for withdrawal from opioids - had been on high dose fentanyl infusion for 3 weeks -infusion d'tabitha on 06/18/15. Neuro consulted and continuous EEG monitoring ordered. Cont vEEG showing mild diffuse encephalopathy but no epileptiform form activity. A/P:: No seizure activity since 06/22. Keppra discontinued per ALD. Abdominal distension 06/15/2015 06/16/2015 Overview: TF held. KUB pending. Fever 06/08/2015 08/21/2015 Overview: S/p CT chest/abd 06/18, which showed RLL collapse, with findings suggestive of necrotic PNA, and scattered upper lobe opacities; moderate ascites, cholelithiasis and gallbladder sludging without cholecystitis. Remains afebrile. No leukocytosis. - Urine cx (06/07), neg; Bld cx (06/11) x2 - NGTD - One blood culture (06/06) grew lactobacillus - Bld/UA cx drawn (06/16) - neg - BAL cx (06/20): smear shows GPC in clusters - Bld cx (06/21) NGTD Plan: - Meropenem stopped on 06/22 - Cont PO Vancomycin through hospitalization - F/u BAL cx (06/20) - Smear currently shows GPC in clusters but no organisms on culture; in the setting of resurgence of fevers, restarted on IV Vanc on 06/18->. Continue Vancomycin oral Mild protein-calorie malnutrition 06/04/2015 04/11/2017 Overview: Nutrition following. Ice chips only per beside swallow evaluation. Advanced to popcicle and applesauce 07/19 A/P: Tolerating TF via corpak at goal. Continue TF at current rate, monitor labs. Speech evaluation today Ischemia of hand 06/01/2015 06/05/2015 Overview: Radial a line removed- good doppler signals Rooke mittens placed Heparin infusion for goal pTT 45-55. Ischemia of lower extremity 06/01/201505/13 Overview: Left lower extremity ischemia, has regained DP/PT doppler signals, but calf muscles remains somewhat tense. A/P: CKs normalizing, will stop following CK levels at this time. Vascular surgery signing off, appreciate assistance. 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 Radial art line was in LUE. Art line removed and arterial duplex showed radial artery thrombosis with patent ulnar artery. Pt now with strong pulse in L radial artery. Thrombocytopenia 06/01/2015 06/08/2015 Overview: Required massive transfusion after OR, placed on VA ECMO. Likely consumptive coagulopathy, however PF4 antibody sent given recent initiation of heparin IV. A/P: -Appears to be resolving, platelets 98,000 today. Cardiac insufficiency following cardiac surgery 05/30/2015 06/15/2015 Overview: Severe RV, arrived from OR on iflolan and Epi. iFlolan weaned off A/P: Off epi and iFlolan. Open chest wound 05/30/2015 06/11/2015 Overview: S/p Lung Tx A/P: Dressing intact, continue ATBX while chest is open. Possible closure today Volume overload 05/30/2015 09/02/2015 Overview: + fluid balance due to multiple transfusions and volume replacement for shock in the early post op period. A/P: - 1.9 L/24hr. Continue diuresis, monitor UOP and labs. Personal history of ECMO 05/30/2015 015 Overview: VV ECMO on 05/30, Transitioned to VA ECMO 05/31. VA ECMO weaned 06/03, back on VV ECMO Decannulated on 06/15. Stress hyperglycemia 05/30/2015 06/11/2015 Overview: S/P Lung Tx A/P: Stress hyperglycemia exacerbated by surgery and pressors. RHI infusion for glycemic control. Shock liver - hepatic insufficiency 05/30/2015 06/05/2015 Overview: Markedly elevated LFTs, persistent coagulopathy and bleeding despite near- continuous trasnfusion of blood products. Also recurrent hypoglycemia requiring D50 boluses and D10W infusion. A/P: LFTs downtrending. 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 Progressively hypoxemic after arrival to ICU despite maximal MV support with lung protective ventilation and inhaled epoprostenol. NMB, inverted I:E ratio, high PEEP, low Vt with permissive hypercapnia only helped transiently. VV ECMO placed. Optimize vent settings, BPH, pain control, VV ECMO. Worsening lung compliance d/t hypervolemia (pulm edema) and/ or PGD. Continues on iFlolan. Switched to VA ECMO but maintaining very low Vt plus high PEEP. 9/23 Washout with VA ECMO weaned. VV ECMO initiated. S/p ECMO decannulation 06/15. S/p trach 06/19. Tolerated ~>11hrs on 07/06, but CXR with increased atelectasis following. A/P: CXR with bilateral opacities. Tolerating TC ATC. Continue TC, BPH, pain control, OOB. Consumption coagulopathy 05/29/2015 015 Overview: S/P Lung Transplant. Severe coagulopathic bleeding intraop and immediately postop. Received multiple blood products - plts, cryoppt, FFP and prbcs. Also rewarming for postop hypothermia. A/P: 4u pRBC and 2u platelets distribution coordinator to OR. PF4 antibody negative Chest remains open. Hypotension 05/29/2015 06/15/2015 Overview: Post Lung Tx. Severely vasoplegic intraop and immediately postop requiring multiple inopressors. Received methylene blue bolus intraop. Arrived ICU on epi, norepi, vasopressin and phenylephrine was added in ICU to maintain MAP >60mmHg. Wean for MAP 65 or greater. A/P: Off epi. Maintain MAPs 65-75. Acute blood loss anemia 05/29/2015 09/02/20 15 Overview: H/H remains low but stable. 07/10: H/H 6.6/21--transfused 1 unit 07/11: Transfused for 6.8/21.3 A/P: Monitor H/H, transfuse prn. Acute postoperative pain 05/29/2015 015 Overview: Post op lung Tx A/P: Dilaudid and acetaminophen prn for pain Hypothermia following anesthesia 05/29/2015 06/02/2015 Overview: 05/30/2015 Rewarming with forced warm air blanket Lactic acidosis 05/29/2015 06/03/2015 Overview: S/P Lung Tx A/P: Resolved with lactate levels of 1.2 today Right heart failure, NYHA class 4 04/27/2015 08/21/2015 Right heart failure due to pulmonary hypertensio n 04/21/2015 06/02/2015 Overview: Patient with right heart failure stigmata (JVD, ascites and lower extremity edema). BP has been on the lower side. Oxygen requirement increased to 3L from 2 L Plan: - Will get repeat Echo with bubble study (last one from January 2015). - Place a PA cath and continue to diurese while monitoring her right heart pressures. - Will need IV lasix-received 80 IV lasix on 04/20 and 100 IV lasix on 04/21 - Continue spironolactone. JAMES (acute kidney injury) 04/21/20152014 Overview: Baseline Cr 0.9 (04/09) -> Cr up to 2.4. A/P: JAMES is likely 2/2 ATN given hypotension and hemorrhage. Balance volume repletion with diuresis --> Cr continues to downtrend 1.92 -->1.37 today. Nephrology following - Maintain MAP 65 or greater, avoid nephrotoxic agents. Continue Lasix drip Hyponatremia with excess extracellular fluid vol ume 04/21/2015 06/02/2015 Overview: Likely hypervolemic hyponatremia. Na improved form 126 to 130 this am. Patient is already on torsemide, spironolactone and metolazone at home. Plan: - Continue to diurese as kidney function allows. 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 - O2 requirements as needed (uses 2L NC at home at night). - Continue home O2 - Patient was seen by lung transplant team. Tests required include: Quantitative perfusion scan (done) Gastric emptying study, esophageal manometry and 24hr pH study (ordered) Dental consultation (will need to call ) Social Work (on board) Iron deficiency anemia 01/25/2013 7 Overview: Menstruating female with iron deficiency Cardiomegaly 01/25/2013 09/02/2015 Overview: -- RV enlargement due to PH Exertional dyspnea 01/25/2013 09/02/2015 Mediastinal adenopathy 01/25/2013 5 Hilar adenopathy 01/25/2013 08/21/2015 Overview: Noted on imaging- mother with a history of Sarcoid Could be 2/2 to chronic VTE and pHTN Lung nodules 01/25/2013 09/02/2015 Overview: Noted on imaging Follow Anticoagulation management encounter 01/25/2013 01/26/2013 SUMMARY 01/24/2013 02/02/2013 Overview: This is a 17 year old female with no significant PMH other than migraine and minimal allergies who developed significant SOB within the past 2 months, this progressed to the point where she was unable to walk up 2 flights of stairs and had mild chest pressure with activty. This worsened on a recent trip to [place] where she was on a 6 hour plane ride leading to a near syncopal episode. She presented ot her PCP for fatigue and was found to have anemia, elevated WBC count and on echo a elevated RVSP and dilated RV. She was sent for CT at her local Ed where she was found to have 2 small PE's. Patient sent for further evaluation. At admission upon review of her Ct there is no PE noted, she does however have significant cardiomegaly, increase RVSP and right atrial dilatation, will need to work up cause of PAH PAH (pulmonary artery hypertension) 01/24/2013 08/21/2015 Overview: Found to have elevated RVSP on echo with RV dilatation. ? Sarcoid as she has a family hx as well as polyarthralgia and fatigue - now with hilar lymphadenopathy RHC revealing PA HTN. 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 as angio was suggestive of multiple PEs small and chronic Plan: Further Remodulin titration as an out-patient q weekly, now on 7.5 ng/kg/min PET scan for VALERIA in the chest complete 02/07 Night sweats 01/24/2013 08/21/2015 Overview: Unclear etiology- Awaiting further PAH workup and Rheum w/u is neg so far documented as of this encounter (statuses as of 02/10/2023) [facility] History of Past illness Narrative* Problem Noted Date Resolved Date Abnormality of gait 12/24/2015 04/11/2017 Ascites 07/13/2015 08/21/2015 Overview: Abdominal distension 07/09 KUB: air in stomach, repeat on 07/11: no dilated loops of bowel 07/11: US abdomen + ascites 07/13 Paracentesis ~ 2L straw colored fluid A/P: Abdomen soft, distended. No c/o abd. fullness. Monitor. Seizure 06/22/2015 08/21/2015 Overview: 06/22/2015 0230 Sudden new onset seizures - with generalized rhythmic contractions of all extremities plus facial twitching. Treated lorazepam and midazolam. Stat head CT negative for bleed. No acute metabolic changes on ABG. Concern for withdrawal from opioids - had been on high dose fentanyl infusion for 3 weeks -infusion d'tabitha on 06/18/15. Neuro consulted and continuous EEG monitoring ordered. Cont vEEG showing mild diffuse encephalopathy but no epileptiform form activity. A/P:: No seizure activity since 06/22. Keppra discontinued per ALD. Abdominal distension 06/15/2015 06/16/2015 Overview: TF held. KUB pending. Fever 06/08/2015 08/21/2015 Overview: S/p CT chest/abd 06/18, which showed RLL collapse, with findings suggestive of necrotic PNA, and scattered upper lobe opacities; moderate ascites, cholelithiasis and gallbladder sludging without cholecystitis. Remains afebrile. No leukocytosis. - Urine cx (06/07), neg; Bld cx (06/11) x2 - NGTD - One blood culture (06/06) grew lactobacillus - Bld/UA cx drawn (06/16) - neg - BAL cx (06/20): smear shows GPC in clusters - Bld cx (06/21) NGTD Plan: - Meropenem stopped on 06/22 - Cont PO Vancomycin through hospitalization - F/u BAL cx (06/20) - Smear currently shows GPC in clusters but no organisms on culture; in the setting of resurgence of fevers, restarted on IV Vanc on 06/18->. Continue Vancomycin oral Mild protein-calorie malnutrition 06/04/2015 04/11/2017 Overview: Nutrition following. Ice chips only per beside swallow evaluation. Advanced to popcicle and applesauce 07/19 A/P: Tolerating TF via corpak at goal. Continue TF at current rate, monitor labs. Speech evaluation today Ischemia of hand 06/01/2015 06/05/2015 Overview: Radial a line removed- good doppler signals Rooke mittens placed Heparin infusion for goal pTT 45-55. Ischemia of lower extremity 06/01/201505/13 Overview: Left lower extremity ischemia, has regained DP/PT doppler signals, but calf muscles remains somewhat tense. A/P: CKs normalizing, will stop following CK levels at this time. Vascular surgery signing off, appreciate assistance. 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 Radial art line was in LUE. Art line removed and arterial duplex showed radial artery thrombosis with patent ulnar artery. Pt now with strong pulse in L radial artery. Thrombocytopenia 06/01/2015 06/08/2015 Overview: Required massive transfusion after OR, placed on VA ECMO. Likely consumptive coagulopathy, however PF4 antibody sent given recent initiation of heparin IV. A/P: -Appears to be resolving, platelets 98,000 today. Cardiac insufficiency following cardiac surgery 05/30/2015 06/15/2015 Overview: Severe RV, arrived from OR on iflolan and Epi. iFlolan weaned off A/P: Off epi and iFlolan. Open chest wound 05/30/2015 06/11/2015 Overview: S/p Lung Tx A/P: Dressing intact, continue ATBX while chest is open. Possible closure today Volume overload 05/30/2015 09/02/2015 Overview: + fluid balance due to multiple transfusions and volume replacement for shock in the early post op period. A/P: - 1.9 L/24hr. Continue diuresis, monitor UOP and labs. Personal history of ECMO 05/30/2015 015 Overview: VV ECMO on 05/30, Transitioned to VA ECMO 05/31. VA ECMO weaned 06/03, back on VV ECMO Decannulated on 06/15. Stress hyperglycemia 05/30/2015 06/11/2015 Overview: S/P Lung Tx A/P: Stress hyperglycemia exacerbated by surgery and pressors. RHI infusion for glycemic control. Shock liver - hepatic insufficiency 05/30/2015 06/05/2015 Overview: Markedly elevated LFTs, persistent coagulopathy and bleeding despite near- continuous trasnfusion of blood products. Also recurrent hypoglycemia requiring D50 boluses and D10W infusion. A/P: LFTs downtrending. 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 Progressively hypoxemic after arrival to ICU despite maximal MV support with lung protective ventilation and inhaled epoprostenol. NMB, inverted I:E ratio, high PEEP, low Vt with permissive hypercapnia only helped transiently. VV ECMO placed. Optimize vent settings, BPH, pain control, VV ECMO. Worsening lung compliance d/t hypervolemia (pulm edema) and/ or PGD. Continues on iFlolan. Switched to VA ECMO but maintaining very low Vt plus high PEEP. 06/03 Washout with VA ECMO weaned. VV ECMO initiated. S/p ECMO decannulation 06/15. S/p trach 06/19. Tolerated ~>11hrs on 07/06, but CXR with increased atelectasis following. A/P: CXR with bilateral opacities. Tolerating TC ATC. Continue TC, BPH, pain control, OOB. Consumption coagulopathy 05/29/2015 015 Overview: S/P Lung Transplant. Severe coagulopathic bleeding intraop and immediately postop. Received multiple blood products - plts, cryoppt, FFP and prbcs. Also rewarming for postop hypothermia. A/P: 4u pRBC and 2u platelets distribution coordinator to OR. PF4 antibody negative Chest remains open. Hypotension 05/29/2015 06/15/2015 Overview: Post Lung Tx. Severely vasoplegic intraop and immediately postop requiring multiple inopressors. Received methylene blue bolus intraop. Arrived ICU on epi, norepi, vasopressin and phenylephrine was added in ICU to maintain MAP >60mmHg. Wean for MAP 65 or greater. A/P: Off epi. Maintain MAPs 65-75. Acute blood loss anemia 05/29/2015 09/02/20 15 Overview: H/H remains low but stable. 07/10: H/H 6.6/21--transfused 1 unit 07/11: Transfused for 6.8/21.3 A/P: Monitor H/H, transfuse prn. Acute postoperative pain 05/29/2015 015 Overview: Post op lung Tx A/P: Dilaudid and acetaminophen prn for pain Hypothermia following anesthesia 05/29/2015 06/02/2015 Overview: 05/30/2015 Rewarming with forced warm air blanket Lactic acidosis 05/29/2015 06/03/2015 Overview: S/P Lung Tx A/P: Resolved with lactate levels of 1.2 today Right heart failure, NYHA class 4 04/27/2015 08/21/2015 Right heart failure due to pulmonary hypertensio n 04/21/2015 06/02/2015 Overview: Patient with right heart failure stigmata (JVD, ascites and lower extremity edema). BP has been on the lower side. Oxygen requirement increased to 3L from 2 L Plan: - Will get repeat Echo with bubble study (last one from January 2015). - Place a PA cath and continue to diurese while monitoring her right heart pressures. - Will need IV lasix-received 80 IV lasix on 04/20 and 100 IV lasix on 04/21 - Continue spironolactone. JAMES (acute kidney injury) 04/21/20152014 Overview: Baseline Cr 0.9 (04/09) -> Cr up to 2.4. A/P: JAMES is likely 2/2 ATN given hypotension and hemorrhage. Balance volume repletion with diuresis --> Cr continues to downtrend 1.92 -->1.37 today. Nephrology following - Maintain MAP 65 or greater, avoid nephrotoxic agents. Continue Lasix drip Hyponatremia with excess extracellular fluid vol ume 04/21/2015 06/02/2015 Overview: Likely hypervolemic hyponatremia. Na improved form 126 to 130 this am. Patient is already on torsemide, spironolactone and metolazone at home. Plan: - Continue to diurese as kidney function allows. 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 - O2 requirements as needed (uses 2L NC at home at night). - Continue home O2 - Patient was seen by lung transplant team. Tests required include: Quantitative perfusion scan (done) Gastric emptying study, esophageal manometry and 24hr pH study (ordered) Dental consultation (will need to call ) Social Work (on board) Iron deficiency anemia 01/25/2013 7 Overview: Menstruating female with iron deficiency Cardiomegaly 01/25/2013 09/02/2015 Overview: -- RV enlargement due to PH Exertional dyspnea 01/25/2013 09/02/2015 Mediastinal adenopathy 01/25/2013 5 Hilar adenopathy 01/25/2013 08/21/2015 Overview: Noted on imaging- mother with a history of Sarcoid Could be 2/2 to chronic VTE and pHTN Lung nodules 01/25/2013 09/02/2015 Overview: Noted on imaging Follow Anticoagulation management encounter 01/25/2013 01/26/2013 SUMMARY 01/24/2013 02/02/2013 Overview: This is a 17 year old female with no significant PMH other than migraine and minimal allergies who developed significant SOB within the past 2 months, this progressed to the point where she was unable to walk up 2 flights of stairs and had mild chest pressure with activty. This worsened on a recent trip to [place] where she was on a 6 hour plane ride leading to a near syncopal episode. She presented ot her PCP for fatigue and was found to have anemia, elevated WBC count and on echo a elevated RVSP and dilated RV. She was sent for CT at her local Ed where she was found to have 2 small PE's. Patient sent for further evaluation. At admission upon review of her Ct there is no PE noted, she does however have significant cardiomegaly, increase RVSP and right atrial dilatation, will need to work up cause of PAH PAH (pulmonary artery hypertension) 01/24/2013 08/21/2015 Overview: Found to have elevated RVSP on echo with RV dilatation. ? Sarcoid as she has a family hx as well as polyarthralgia and fatigue - now with hilar lymphadenopathy RHC revealing PA HTN. 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 as angio was suggestive of multiple PEs small and chronic Plan: Further Remodulin titration as an out-patient q weekly, now on 7.5 ng/kg/min PET scan for VALERIA in the chest complete 02/07 Night sweats 01/24/2013 08/21/2015 Overview: Unclear etiology- Awaiting further PAH workup and Rheum w/u is neg so far documented as of this encounter (statuses as of 03/01/2023) [facility] History of Past illness Narrative* Problem Noted Date Resolved Date Abnormality of gait 12/24/2015 04/11/2017 Ascites 07/13/2015 08/21/2015 Overview: Abdominal distension 07/09 KUB: air in stomach, repeat on 07/11: no dilated loops of bowel 07/11: US abdomen + ascites 07/13 Paracentesis ~ 2L straw colored fluid A/P: Abdomen soft, distended. No c/o abd. fullness. Monitor. Seizure 06/22/2015 08/21/2015 Overview: 06/22/2015 0230 Sudden new onset seizures - with generalized rhythmic contractions of all extremities plus facial twitching. Treated lorazepam and midazolam. Stat head CT negative for bleed. No acute metabolic changes on ABG. Concern for withdrawal from opioids - had been on high dose fentanyl infusion for 3 weeks -infusion d'tabitha on 06/18/15. Neuro consulted and continuous EEG monitoring ordered. Cont vEEG showing mild diffuse encephalopathy but no epileptiform form activity. A/P:: No seizure activity since 06/22. Keppra discontinued per ALD. Abdominal distension 06/15/2015 06/16/2015 Overview: TF held. KUB pending. Fever 06/08/2015 08/21/2015 Overview: S/p CT chest/abd 06/18, which showed RLL collapse, with findings suggestive of necrotic PNA, and scattered upper lobe opacities; moderate ascites, cholelithiasis and gallbladder sludging without cholecystitis. Remains afebrile. No leukocytosis. - Urine cx (06/07), neg; Bld cx (06/11) x2 - NGTD - One blood culture (06/06) grew lactobacillus - Bld/UA cx drawn (06/16) - neg - BAL cx (06/20): smear shows GPC in clusters - Bld cx (06/21) NGTD Plan: - Meropenem stopped on 06/22 - Cont PO Vancomycin through hospitalization - F/u BAL cx (06/20) - Smear currently shows GPC in clusters but no organisms on culture; in the setting of resurgence of fevers, restarted on IV Vanc on 06/18->. Continue Vancomycin oral Mild protein-calorie malnutrition 06/04/2015 04/11/2017 Overview: Nutrition following. Ice chips only per beside swallow evaluation. Advanced to popcicle and applesauce 07/19 A/P: Tolerating TF via corpak at goal. Continue TF at current rate, monitor labs. Speech evaluation today Ischemia of hand 06/01/2015 06/05/2015 Overview: Radial a line removed- good doppler signals Rooke mittens placed Heparin infusion for goal pTT 45-55. Ischemia of lower extremity 06/01/201505/13 Overview: Left lower extremity ischemia, has regained DP/PT doppler signals, but calf muscles remains somewhat tense. A/P: CKs normalizing, will stop following CK levels at this time. Vascular surgery signing off, appreciate assistance. 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 Radial art line was in LUE. Art line removed and arterial duplex showed radial artery thrombosis with patent ulnar artery. Pt now with strong pulse in L radial artery. Thrombocytopenia 06/01/2015 06/08/2015 Overview: Required massive transfusion after OR, placed on VA ECMO. Likely consumptive coagulopathy, however PF4 antibody sent given recent initiation of heparin IV. A/P: -Appears to be resolving, platelets 98,000 today. Cardiac insufficiency following cardiac surgery 05/30/2015 06/15/2015 Overview: Severe RV, arrived from OR on iflolan and Epi. iFlolan weaned off A/P: Off epi and iFlolan. Open chest wound 05/30/2015 06/11/2015 Overview: S/p Lung Tx A/P: Dressing intact, continue ATBX while chest is open. Possible closure today Volume overload 05/30/2015 09/02/2015 Overview: + fluid balance due to multiple transfusions and volume replacement for shock in the early post op period. A/P: - 1.9 L/24hr. Continue diuresis, monitor UOP and labs. Personal history of ECMO 05/30/2015 015 Overview: VV ECMO on 05/30, Transitioned to VA ECMO 05/31. VA ECMO weaned 06/03, back on VV ECMO Decannulated on 06/15. Stress hyperglycemia 05/30/2015 06/11/2015 Overview: S/P Lung Tx A/P: Stress hyperglycemia exacerbated by surgery and pressors. RHI infusion for glycemic control. Shock liver - hepatic insufficiency 05/30/2015 06/05/2015 Overview: Markedly elevated LFTs, persistent coagulopathy and bleeding despite near- continuous trasnfusion of blood products. Also recurrent hypoglycemia requiring D50 boluses and D10W infusion. A/P: LFTs downtrending. 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 Progressively hypoxemic after arrival to ICU despite maximal MV support with lung protective ventilation and inhaled epoprostenol. NMB, inverted I:E ratio, high PEEP, low Vt with permissive hypercapnia only helped transiently. VV ECMO placed. Optimize vent settings, BPH, pain control, VV ECMO. Worsening lung compliance d/t hypervolemia (pulm edema) and/ or PGD. Continues on iFlolan. Switched to VA ECMO but maintaining very low Vt plus high PEEP. 06/03 Washout with VA ECMO weaned. VV ECMO initiated. S/p ECMO decannulation 06/15. S/p trach 06/19. Tolerated ~>11hrs on 07/06, but CXR with increased atelectasis following. A/P: CXR with bilateral opacities. Tolerating TC ATC. Continue TC, BPH, pain control, OOB. Consumption coagulopathy 05/29/2015 015 Overview: S/P Lung Transplant. Severe coagulopathic bleeding intraop and immediately postop. Received multiple blood products - plts, cryoppt, FFP and prbcs. Also rewarming for postop hypothermia. A/P: 4u pRBC and 2u platelets distribution coordinator to OR. PF4 antibody negative Chest remains open. Hypotension 05/29/2015 06/15/2015 Overview: Post Lung Tx. Severely vasoplegic intraop and immediately postop requiring multiple inopressors. Received methylene blue bolus intraop. Arrived ICU on epi, norepi, vasopressin and phenylephrine was added in ICU to maintain MAP >60mmHg. Wean for MAP 65 or greater. A/P: Off epi. Maintain MAPs 65-75. Acute blood loss anemia 05/29/2015 09/02/20 15 Overview: H/H remains low but stable. 07/10: H/H 6.6/21--transfused 1 unit 07/11: Transfused for 6.8.3 A/P: Monitor H/H, transfuse prn. Acute postoperative pain 05/29/2015 015 Overview: Post op lung Tx A/P: Dilaudid and acetaminophen prn for pain Hypothermia following anesthesia 05/29/2015 06/02/2015 Overview: 05/30/2015 Rewarming with forced warm air blanket Lactic acidosis 05/29/2015 06/03/2015 Overview: S/P Lung Tx A/P: Resolved with lactate levels of 1.2 today Right heart failure, NYHA class 4 04/27/2015 08/21/2015 Right heart failure due to pulmonary hypertensio n 04/21/2015 06/02/2015 Overview: Patient with right heart failure stigmata (JVD, ascites and lower extremity edema). BP has been on the lower side. Oxygen requirement increased to 3L from 2 L Plan: - Will get repeat Echo with bubble study (last one from January 2015). - Place a PA cath and continue to diurese while monitoring her right heart pressures. - Will need IV lasix-received 80 IV lasix on 04/20 and 100 IV lasix on 04/21 - Continue spironolactone. JAMES (acute kidney injury) 04/21/20152014 Overview: Baseline Cr 0.9 (04/09) -> Cr up to 2.4. A/P: JAMES is likely 2/2 ATN given hypotension and hemorrhage. Balance volume repletion with diuresis --> Cr continues to downtrend 1.92 -->1.37 today. Nephrology following - Maintain MAP 65 or greater, avoid nephrotoxic agents. Continue Lasix drip Hyponatremia with excess extracellular fluid vol ume 04/21/2015 06/02/2015 Overview: Likely hypervolemic hyponatremia. Na improved form 126 to 130 this am. Patient is already on torsemide, spironolactone and metolazone at home. Plan: - Continue to diurese as kidney function allows. 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 - O2 requirements as needed (uses 2L NC at home at night). - Continue home O2 - Patient was seen by lung transplant team. Tests required include: Quantitative perfusion scan (done) Gastric emptying study, esophageal manometry and 24hr pH study (ordered) Dental consultation (will need to call ) Social Work (on board) Iron deficiency anemia 01/25/2013 7 Overview: Menstruating female with iron deficiency Cardiomegaly 01/25/2013 09/02/2015 Overview: -- RV enlargement due to PH Exertional dyspnea 01/25/2013 09/02/2015 Mediastinal adenopathy 01/25/2013 5 Hilar adenopathy 01/25/2013 08/21/2015 Overview: Noted on imaging- mother with a history of Sarcoid Could be 2/2 to chronic VTE and pHTN Lung nodules 01/25/2013 09/02/2015 Overview: Noted on imaging Follow Anticoagulation management encounter 01/25/2013 01/26/2013 SUMMARY 01/24/2013 02/02/2013 Overview: This is a 17 year old female with no significant PMH other than migraine and minimal allergies who developed significant SOB within the past 2 months, this progressed to the point where she was unable to walk up 2 flights of stairs and had mild chest pressure with activty. This worsened on a recent trip to [place] where she was on a 6 hour plane ride leading to a near syncopal episode. She presented ot her PCP for fatigue and was found to have anemia, elevated WBC count and on echo a elevated RVSP and dilated RV. She was sent for CT at her local Ed where she was found to have 2 small PE's. Patient sent for further evaluation. At admission upon review of her Ct there is no PE noted, she does however have significant cardiomegaly, increase RVSP and right atrial dilatation, will need to work up cause of PAH PAH (pulmonary artery hypertension) 01/24/2013 08/21/2015 Overview: Found to have elevated RVSP on echo with RV dilatation. ? Sarcoid as she has a family hx as well as polyarthralgia and fatigue - now with hilar lymphadenopathy RHC revealing PA HTN. 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 as angio was suggestive of multiple PEs small and chronic Plan: Further Remodulin titration as an out-patient q weekly, now on 7.5 ng/kg/min PET scan for VALERIA in the chest complete 02/07 Night sweats 01/24/2013 08/21/2015 Overview: Unclear etiology- Awaiting further PAH workup and Rheum w/u is neg so far documented as of this encounter (statuses as of 03/02/2023) [facility] History of Past illness Narrative* Problem Noted Date Resolved Date Abnormality of gait 12/24/2015 04/11/2017 Ascites 07/13/2015 08/21/2015 Overview: Abdominal distension 07/09 KUB: air in stomach, repeat on 07/11: no dilated loops of bowel 07/11: US abdomen + ascites 07/13 Paracentesis ~ 2L straw colored fluid A/P: Abdomen soft, distended. No c/o abd. fullness. Monitor. Seizure 06/22/2015 08/21/2015 Overview: 06/22/2015 0230 Sudden new onset seizures - with generalized rhythmic contractions of all extremities plus facial twitching. Treated lorazepam and midazolam. Stat head CT negative for bleed. No acute metabolic changes on ABG. Concern for withdrawal from opioids - had been on high dose fentanyl infusion for 3 weeks -infusion d'tabitha on 06/18/15. Neuro consulted and continuous EEG monitoring ordered. Cont vEEG showing mild diffuse encephalopathy but no epileptiform form activity. A/P:: No seizure activity since 06/22. Keppra discontinued per ALD. Abdominal distension 06/15/2015 06/16/2015 Overview: TF held. KUB pending. Fever 06/08/2015 08/21/2015 Overview: S/p CT chest/abd 06/18, which showed RLL collapse, with findings suggestive of necrotic PNA, and scattered upper lobe opacities; moderate ascites, cholelithiasis and gallbladder sludging without cholecystitis. Remains afebrile. No leukocytosis. - Urine cx (06/07), neg; Bld cx (06/11) x2 - NGTD - One blood culture (06/06) grew lactobacillus - Bld/UA cx drawn (06/16) - neg - BAL cx (06/20): smear shows GPC in clusters - Bld cx (06/21) NGTD Plan: - Meropenem stopped on 06/22 - Cont PO Vancomycin through hospitalization - F/u BAL cx (06/20) - Smear currently shows GPC in clusters but no organisms on culture; in the setting of resurgence of fevers, restarted on IV Vanc on 06/18->. Continue Vancomycin oral Mild protein-calorie malnutrition 06/04/2015 04/11/2017 Overview: Nutrition following. Ice chips only per beside swallow evaluation. Advanced to popcicle and applesauce 07/19 A/P: Tolerating TF via corpak at goal. Continue TF at current rate, monitor labs. Speech evaluation today Ischemia of hand 06/01/2015 06/05/2015 Overview: Radial a line removed- good doppler signals Rooke mitattilas placed Heparin infusion for goal pTT 45-55. Ischemia of lower extremity 06/01/201505/13 Overview: Left lower extremity ischemia, has regained DP/PT doppler signals, but calf muscles remains somewhat tense. A/P: CKs normalizing, will stop following CK levels at this time. Vascular surgery signing off, appreciate assistance. 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 Radial art line was in LUE. Art line removed and arterial duplex showed radial artery thrombosis with patent ulnar artery. Pt now with strong pulse in L radial artery. Thrombocytopenia 06/01/2015 06/08/2015 Overview: Required massive transfusion after OR, placed on [facility] ECMO. Likely consumptive coagulopathy, however PF4 antibody sent given recent initiation of heparin IV. A/P: -Appears to be resolving, platelets 98,000 today. Cardiac insufficiency following cardiac surgery 05/30/2015 06/15/2015 Overview: Severe RV, arrived from OR on iflolan and Epi. iFlolan weaned off A/P: Off epi and iFlolan. Open chest wound 05/30/2015 06/11/2015 Overview: S/p Lung Tx A/P: Dressing intact, continue ATBX while chest is open. Possible closure today Volume overload 05/30/2015 09/02/2015 Overview: + fluid balance due to multiple transfusions and volume replacement for shock in the early post op period. A/P: - 1.9 L/24hr. Continue diuresis, monitor UOP and labs. Personal history of ECMO 05/30/2015 015 Overview: VV ECMO on 05/30, Transitioned to VA ECMO 05/31. VA ECMO weaned 06/03, back on VV ECMO Decannulated on 06/15. Stress hyperglycemia 05/30/2015 06/11/2015 Overview: S/P Lung Tx A/P: Stress hyperglycemia exacerbated by surgery and pressors. RHI infusion for glycemic control. Shock liver - hepatic insufficiency 05/30/2015 06/05/2015 Overview: Markedly elevated LFTs, persistent coagulopathy and bleeding despite near- continuous trasnfusion of blood products. Also recurrent hypoglycemia requiring D50 boluses and D10W infusion. A/P: LFTs downtrending. 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 Progressively hypoxemic after arrival to ICU despite maximal MV support with lung protective ventilation and inhaled epoprostenol. NMB, inverted I:E ratio, high PEEP, low Vt with permissive hypercapnia only helped transiently. VV ECMO placed. Optimize vent settings, BPH, pain control, VV ECMO. Worsening lung compliance d/t hypervolemia (pulm edema) and/ or PGD. Continues on iFlolan. Switched to VA ECMO but maintaining very low Vt plus high PEEP. 06/03 Washout with VA ECMO weaned. VV ECMO initiated. S/p ECMO decannulation 06/15. S/p trach 06/19. Tolerated ~>11hrs on 07/06, but CXR with increased atelectasis following. A/P: CXR with bilateral opacities. Tolerating TC ATC. Continue TC, BPH, pain control, OOB. Consumption coagulopathy 05/29/2015 015 Overview: S/P Lung Transplant. Severe coagulopathic bleeding intraop and immediately postop. Received multiple blood products - plts, cryoppt, FFP and prbcs. Also rewarming for postop hypothermia. A/P: 4u pRBC and 2u platelets distribution coordinator to OR. PF4 antibody negative Chest remains open. Hypotension 05/29/2015 06/15/2015 Overview: Post Lung Tx. Severely vasoplegic intraop and immediately postop requiring multiple inopressors. Received methylene blue bolus intraop. Arrived ICU on epi, norepi, vasopressin and phenylephrine was added in ICU to maintain MAP >60mmHg. Wean for MAP 65 or greater. A/P: Off epi. Maintain MAPs 65-75. Acute blood loss anemia 05/29/2015 09/02/20 15 Overview: H/H remains low but stable. 07/10: H/H 6.6/21--transfused 1 unit 07/11: Transfused for 6.8.3 A/P: Monitor H/H, transfuse prn. Acute postoperative pain 05/29/2015 015 Overview: Post op lung Tx A/P: Dilaudid and acetaminophen prn for pain Hypothermia following anesthesia 05/29/2015 06/02/2015 Overview: 05/30/2015 Rewarming with forced warm air blanket Lactic acidosis 05/29/2015 06/03/2015 Overview: S/P Lung Tx A/P: Resolved with lactate levels of 1.2 today Right heart failure, NYHA class 4 04/27/2015 08/21/2015 Right heart failure due to pulmonary hypertensio n 04/21/2015 06/02/2015 Overview: Patient with right heart failure stigmata (JVD, ascites and lower extremity edema). BP has been on the lower side. Oxygen requirement increased to 3L from 2 L Plan: - Will get repeat Echo with bubble study (last one from January 2015). - Place a PA cath and continue to diurese while monitoring her right heart pressures. - Will need IV lasix-received 80 IV lasix on 04/20 and 100 IV lasix on 04/21 - Continue spironolactone. JAMES (acute kidney injury) 04/21/20152014 Overview: Baseline Cr 0.9 (04/09) -> Cr up to 2.4. A/P: JAMES is likely 2/2 ATN given hypotension and hemorrhage. Balance volume repletion with diuresis --> Cr continues to downtrend 1.92 -->1.37 today. Nephrology following - Maintain MAP 65 or greater, avoid nephrotoxic agents. Continue Lasix drip Hyponatremia with excess extracellular fluid vol ume 04/21/2015 06/02/2015 Overview: Likely hypervolemic hyponatremia. Na improved form 126 to 130 this am. Patient is already on torsemide, spironolactone and metolazone at home. Plan: - Continue to diurese as kidney function allows. 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 - O2 requirements as needed (uses 2L NC at home at night). - Continue home O2 - Patient was seen by lung transplant team. Tests required include: Quantitative perfusion scan (done) Gastric emptying study, esophageal manometry and 24hr pH study (ordered) Dental consultation (will need to call ) Social Work (on board) Iron deficiency anemia 01/25/2013 Overview: Menstruating female with iron deficiency Cardiomegaly 01/25/2013 09/02/2015 Overview: -- RV enlargement due to PH Exertional dyspnea 01/25/2013 09/02/2015 Mediastinal adenopathy 01/25/2013 5 Hilar adenopathy 01/25/2013 08/21/2015 Overview: Noted on imaging- mother with a history of Sarcoid Could be 2/2 to chronic VTE and pHTN Lung nodules 01/25/2013 09/02/2015 Overview: Noted on imaging Follow Anticoagulation management encounter 01/25/2013 01/26/2013 SUMMARY 01/24/2013 02/02/2013 Overview: This is a 17 year old female with no significant PMH other than migraine and minimal allergies who developed significant SOB within the past 2 months, this progressed to the point where she was unable to walk up 2 flights of stairs and had mild chest pressure with activty. This worsened on a recent trip to [place] where she was on a 6 hour plane ride leading to a near syncopal episode. She presented ot her PCP for fatigue and was found to have anemia, elevated WBC count and on echo a elevated RVSP and dilated RV. She was sent for CT at her local Ed where she was found to have 2 small PE's. Patient sent for further evaluation. At admission upon review of her Ct there is no PE noted, she does however have significant cardiomegaly, increase RVSP and right atrial dilatation, will need to work up cause of PAH PAH (pulmonary artery hypertension) 01/24/2013 08/21/2015 Overview: Found to have elevated RVSP on echo with RV dilatation. ? Sarcoid as she has a family hx as well as polyarthralgia and fatigue - now with hilar lymphadenopathy RHC revealing PA HTN. 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 as angio was suggestive of multiple PEs small and chronic Plan: Further Remodulin titration as an out-patient q weekly, now on 7.5 ng/kg/min PET scan for VALERIA in the chest complete 5/30 Night sweats 01/24/2013 08/21/2015 Overview: Unclear etiology- Awaiting further PAH workup and Rheum w/u is neg so far documented as of this encounter (statuses as of 03/07/2023) [facility] History of Past illness Narrative* Problem Noted Date Resolved Date Abnormality of gait 12/24/2015 04/11/2017 Ascites 07/13/2015 08/21/2015 Overview: Abdominal distension 07/09 KUB: air in stomach, repeat on 07/11: no dilated loops of bowel 07/11: US abdomen + ascites 07/13 Paracentesis ~ 2L straw colored fluid A/P: Abdomen soft, distended. No c/o abd. fullness. Monitor. Seizure 06/22/2015 08/21/2015 Overview: 06/22/2015 0230 Sudden new onset seizures - with generalized rhythmic contractions of all extremities plus facial twitching. Treated lorazepam and midazolam. Stat head CT negative for bleed. No acute metabolic changes on ABG. Concern for withdrawal from opioids - had been on high dose fentanyl infusion for 3 weeks -infusion d'tabitha on 06/18/15. Neuro consulted and continuous EEG monitoring ordered. Cont vEEG showing mild diffuse encephalopathy but no epileptiform form activity. A/P:: No seizure activity since 06/22. Keppra discontinued per ALD. Abdominal distension 06/15/2015 06/16/2015 Overview: TF held. KUB pending. Fever 06/08/2015 08/21/2015 Overview: S/p CT chest/abd 06/18, which showed RLL collapse, with findings suggestive of necrotic PNA, and scattered upper lobe opacities; moderate ascites, cholelithiasis and gallbladder sludging without cholecystitis. Remains afebrile. No leukocytosis. - Urine cx (06/07), neg; Bld cx (06/11) x2 - NGTD - One blood culture (06/06) grew lactobacillus - Bld/UA cx drawn (06/16) - neg - BAL cx (06/20): smear shows GPC in clusters - Bld cx (06/21) NGTD Plan: - Meropenem stopped on 06/22 - Cont PO Vancomycin through hospitalization - F/u BAL cx (06/20) - Smear currently shows GPC in clusters but no organisms on culture; in the setting of resurgence of fevers, restarted on IV Vanc on 06/18->. Continue Vancomycin oral Mild protein-calorie malnutrition 06/04/2015 04/11/2017 Overview: Nutrition following. Ice chips only per beside swallow evaluation. Advanced to popcicle and applesauce 07/19 A/P: Tolerating TF via corpak at goal. Continue TF at current rate, monitor labs. Speech evaluation today Ischemia of hand 06/01/2015 06/05/2015 Overview: Radial a line removed- good doppler signals Rooke mittens placed Heparin infusion for goal pTT 45-55. Ischemia of lower extremity 06/01/201505/13 Overview: Left lower extremity ischemia, has regained DP/PT doppler signals, but calf muscles remains somewhat tense. A/P: CKs normalizing, will stop following CK levels at this time. Vascular surgery signing off, appreciate assistance. 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 Radial art line was in LUE. Art line removed and arterial duplex showed radial artery thrombosis with patent ulnar artery. Pt now with strong pulse in L radial artery. Thrombocytopenia 06/01/2015 06/08/2015 Overview: Required massive transfusion after OR, placed on VA ECMO. Likely consumptive coagulopathy, however PF4 antibody sent given recent initiation of heparin IV. A/P: -Appears to be resolving, platelets 98,000 today. Cardiac insufficiency following cardiac surgery 05/30/2015 06/15/2015 Overview: Severe RV, arrived from OR on iflolan and Epi. iFlolan weaned off A/P: Off epi and iFlolan. Open chest wound 05/30/2015 06/11/2015 Overview: S/p Lung Tx A/P: Dressing intact, continue ATBX while chest is open. Possible closure today Volume overload 05/30/2015 09/02/2015 Overview: + fluid balance due to multiple transfusions and volume replacement for shock in the early post op period. A/P: - 1.9 L/24hr. Continue diuresis, monitor UOP and labs. Personal history of ECMO 05/30/2015 015 Overview: VV ECMO on 05/30, Transitioned to VA ECMO 05/31. VA ECMO weaned 06/03, back on VV ECMO Decannulated on 06/15. Stress hyperglycemia 05/30/2015 06/11/2015 Overview: S/P Lung Tx A/P: Stress hyperglycemia exacerbated by surgery and pressors. RHI infusion for glycemic control. Shock liver - hepatic insufficiency 05/30/2015 06/05/2015 Overview: Markedly elevated LFTs, persistent coagulopathy and bleeding despite near- continuous trasnfusion of blood products. Also recurrent hypoglycemia requiring D50 boluses and D10W infusion. A/P: LFTs downtrending. 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 Progressively hypoxemic after arrival to ICU despite maximal MV support with lung protective ventilation and inhaled epoprostenol. NMB, inverted I:E ratio, high PEEP, low Vt with permissive hypercapnia only helped transiently. VV ECMO placed. Optimize vent settings, BPH, pain control, VV ECMO. Worsening lung compliance d/t hypervolemia (pulm edema) and/ or PGD. Continues on iFlolan. Switched to VA ECMO but maintaining very low Vt plus high PEEP. 06/03 Washout with VA ECMO weaned. VV ECMO initiated. S/p ECMO decannulation 06/15. S/p trach 06/19. Tolerated ~>11hrs on 07/06, but CXR with increased atelectasis following. A/P: CXR with bilateral opacities. Tolerating TC ATC. Continue TC, BPH, pain control, OOB. Consumption coagulopathy 05/29/2015 015 Overview: S/P Lung Transplant. Severe coagulopathic bleeding intraop and immediately postop. Received multiple blood products - plts, cryoppt, FFP and prbcs. Also rewarming for postop hypothermia. A/P: 4u pRBC and 2u platelets distribution coordinator to OR. PF4 antibody negative Chest remains open. Hypotension 05/29/2015 06/15/2015 Overview: Post Lung Tx. Severely vasoplegic intraop and immediately postop requiring multiple inopressors. Received methylene blue bolus intraop. Arrived ICU on epi, norepi, vasopressin and phenylephrine was added in ICU to maintain MAP >60mmHg. Wean for MAP 65 or greater. A/P: Off epi. Maintain MAPs 65-75. Acute blood loss anemia 05/29/2015 09/02/20 15 Overview: H/H remains low but stable. 07/10: H/H 6.6/21--transfused 1 unit 07/11: Transfused for 6.8.3 A/P: Monitor H/H, transfuse prn. Acute postoperative pain 05/29/2015 015 Overview: Post op lung Tx A/P: Dilaudid and acetaminophen prn for pain Hypothermia following anesthesia 05/29/2015 06/02/2015 Overview: 05/30/2015 Rewarming with forced warm air blanket Lactic acidosis 05/29/2015 06/03/2015 Overview: S/P Lung Tx A/P: Resolved with lactate levels of 1.2 today Right heart failure, NYHA class 4 04/27/2015 08/21/2015 Right heart failure due to pulmonary hypertensio n 04/21/2015 06/02/2015 Overview: Patient with right heart failure stigmata (JVD, ascites and lower extremity edema). BP has been on the lower side. Oxygen requirement increased to 3L from 2 L Plan: - Will get repeat Echo with bubble study (last one from January 2015). - Place a PA cath and continue to diurese while monitoring her right heart pressures. - Will need IV lasix-received 80 IV lasix on 04/20 and 100 IV lasix on 04/21 - Continue spironolactone. JAMES (acute kidney injury) 04/21/20152014 Overview: Baseline Cr 0.9 (04/09) -> Cr up to 2.4. A/P: JAMES is likely 2/2 ATN given hypotension and hemorrhage. Balance volume repletion with diuresis --> Cr continues to downtrend 1.92 -->1.37 today. Nephrology following - Maintain MAP 65 or greater, avoid nephrotoxic agents. Continue Lasix drip Hyponatremia with excess extracellular fluid vol ume 04/21/2015 06/02/2015 Overview: Likely hypervolemic hyponatremia. Na improved form 126 to 130 this am. Patient is already on torsemide, spironolactone and metolazone at home. Plan: - Continue to diurese as kidney function allows. 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 - O2 requirements as needed (uses 2L NC at home at night). - Continue home O2 - Patient was seen by lung transplant team. Tests required include: Quantitative perfusion scan (done) Gastric emptying study, esophageal manometry and 24hr pH study (ordered) Dental consultation (will need to call ) Social Work (on board) Iron deficiency anemia 01/25/2013 7 Overview: Menstruating female with iron deficiency Cardiomegaly 01/25/2013 09/02/2015 Overview: -- RV enlargement due to PH Exertional dyspnea 01/25/2013 09/02/2015 Mediastinal adenopathy 01/25/2013 5 Hilar adenopathy 01/25/2013 08/21/2015 Overview: Noted on imaging- mother with a history of Sarcoid Could be 2/2 to chronic VTE and pHTN Lung nodules 01/25/2013 09/02/2015 Overview: Noted on imaging Follow Anticoagulation management encounter 01/25/2013 01/26/2013 SUMMARY 01/24/2013 02/02/2013 Overview: This is a 17 year old female with no significant PMH other than migraine and minimal allergies who developed significant SOB within the past 2 months, this progressed to the point where she was unable to walk up 2 flights of stairs and had mild chest pressure with activty. This worsened on a recent trip to [place] where she was on a 6 hour plane ride leading to a near syncopal episode. She presented ot her PCP for fatigue and was found to have anemia, elevated WBC count and on echo a elevated RVSP and dilated RV. She was sent for CT at her local Ed where she was found to have 2 small PE's. Patient sent for further evaluation. At admission upon review of her Ct there is no PE noted, she does however have significant cardiomegaly, increase RVSP and right atrial dilatation, will need to work up cause of PAH PAH (pulmonary artery hypertension) 01/24/2013 08/21/2015 Overview: Found to have elevated RVSP on echo with RV dilatation. ? Sarcoid as she has a family hx as well as polyarthralgia and fatigue - now with hilar lymphadenopathy RHC revealing PA HTN. 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 as angio was suggestive of multiple PEs small and chronic Plan: Further Remodulin titration as an out-patient q weekly, now on 7.5 ng/kg/min PET scan for VALERIA in the chest complete 02/07 Night sweats 01/24/2013 08/21/2015 Overview: Unclear etiology- Awaiting further PAH workup and Rheum w/u is neg so far documented as of this encounter (statuses as of 03/08/2023) [facility] History of Past illness Narrative* Problem Noted Date Resolved Date Abnormality of gait 12/24/2015 04/11/2017 Ascites 07/13/2015 08/21/2015 Overview: Abdominal distension 07/09 KUB: air in stomach, repeat on 07/11: no dilated loops of bowel 07/11: US abdomen + ascites 07/13 Paracentesis ~ 2L straw colored fluid A/P: Abdomen soft, distended. No c/o abd. fullness. Monitor. Seizure 06/22/2015 08/21/2015 Overview: 06/22/2015 0230 Sudden new onset seizures - with generalized rhythmic contractions of all extremities plus facial twitching. Treated lorazepam and midazolam. Stat head CT negative for bleed. No acute metabolic changes on ABG. Concern for withdrawal from opioids - had been on high dose fentanyl infusion for 3 weeks -infusion d'tabitha on 06/18/15. Neuro consulted and continuous EEG monitoring ordered. Cont vEEG showing mild diffuse encephalopathy but no epileptiform form activity. A/P:: No seizure activity since 06/22. Keppra discontinued per ALD. Abdominal distension 06/15/2015 06/16/2015 Overview: TF held. KUB pending. Fever 06/08/2015 08/21/2015 Overview: S/p CT chest/abd 06/18, which showed RLL collapse, with findings suggestive of necrotic PNA, and scattered upper lobe opacities; moderate ascites, cholelithiasis and gallbladder sludging without cholecystitis. Remains afebrile. No leukocytosis. - Urine cx (06/07), neg; Bld cx (06/11) x2 - NGTD - One blood culture (06/06) grew lactobacillus - Bld/UA cx drawn (06/16) - neg - BAL cx (06/20): smear shows GPC in clusters - Bld cx (06/21) NGTD Plan: - Meropenem stopped on 06/22 - Cont PO Vancomycin through hospitalization - F/u BAL cx (06/20) - Smear currently shows GPC in clusters but no organisms on culture; in the setting of resurgence of fevers, restarted on IV Vanc on 06/18->. Continue Vancomycin oral Mild protein-calorie malnutrition 06/04/2015 04/11/2017 Overview: Nutrition following. Ice chips only per beside swallow evaluation. Advanced to popcicle and applesauce 07/19 A/P: Tolerating TF via corpak at goal. Continue TF at current rate, monitor labs. Speech evaluation today Ischemia of hand 06/01/2015 06/05/2015 Overview: Radial a line removed- good doppler signals Rooke mittens placed Heparin infusion for goal pTT 45-55. Ischemia of lower extremity 06/01/201505/13 Overview: Left lower extremity ischemia, has regained DP/PT doppler signals, but calf muscles remains somewhat tense. A/P: CKs normalizing, will stop following CK levels at this time. Vascular surgery signing off, appreciate assistance. 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 Radial art line was in LUE. Art line removed and arterial duplex showed radial artery thrombosis with patent ulnar artery. Pt now with strong pulse in L radial artery. Thrombocytopenia 06/01/2015 06/08/2015 Overview: Required massive transfusion after OR, placed on VA ECMO. Likely consumptive coagulopathy, however PF4 antibody sent given recent initiation of heparin IV. A/P: -Appears to be resolving, platelets 98,000 today. Cardiac insufficiency following cardiac surgery 05/30/2015 06/15/2015 Overview: Severe RV, arrived from OR on iflolan and Epi. iFlolan weaned off A/P: Off epi and iFlolan. Open chest wound 05/30/2015 06/11/2015 Overview: S/p Lung Tx A/P: Dressing intact, continue ATBX while chest is open. Possible closure today Volume overload 05/30/2015 09/02/2015 Overview: + fluid balance due to multiple transfusions and volume replacement for shock in the early post op period. A/P: - 1.9 L/24hr. Continue diuresis, monitor UOP and labs. Personal history of ECMO 05/30/2015 015 Overview: VV ECMO on 05/30, Transitioned to VA ECMO 05/31. VA ECMO weaned 06/03, back on VV ECMO Decannulated on 06/15. Stress hyperglycemia 05/30/2015 06/11/2015 Overview: S/P Lung Tx A/P: Stress hyperglycemia exacerbated by surgery and pressors. RHI infusion for glycemic control. Shock liver - hepatic insufficiency 05/30/2015 06/05/2015 Overview: Markedly elevated LFTs, persistent coagulopathy and bleeding despite near- continuous trasnfusion of blood products. Also recurrent hypoglycemia requiring D50 boluses and D10W infusion. A/P: LFTs downtrending. 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 Progressively hypoxemic after arrival to ICU despite maximal MV support with lung protective ventilation and inhaled epoprostenol. NMB, inverted I:E ratio, high PEEP, low Vt with permissive hypercapnia only helped transiently. VV ECMO placed. Optimize vent settings, BPH, pain control, VV ECMO. Worsening lung compliance d/t hypervolemia (pulm edema) and/ or PGD. Continues on iFlolan. Switched to VA ECMO but maintaining very low Vt plus high PEEP. 06/03 Washout with VA ECMO weaned. VV ECMO initiated. S/p ECMO decannulation 06/15. S/p trach 06/19. Tolerated ~>11hrs on 07/06, but CXR with increased atelectasis following. A/P: CXR with bilateral opacities. Tolerating TC ATC. Continue TC, BPH, pain control, OOB. Consumption coagulopathy 05/29/2015 015 Overview: S/P Lung Transplant. Severe coagulopathic bleeding intraop and immediately postop. Received multiple blood products - plts, cryoppt, FFP and prbcs. Also rewarming for postop hypothermia. A/P: 4u pRBC and 2u platelets distribution coordinator to OR. PF4 antibody negative Chest remains open. Hypotension 05/29/2015 06/15/2015 Overview: Post Lung Tx. Severely vasoplegic intraop and immediately postop requiring multiple inopressors. Received methylene blue bolus intraop. Arrived ICU on epi, norepi, vasopressin and phenylephrine was added in ICU to maintain MAP >60mmHg. Wean for MAP 65 or greater. A/P: Off epi. Maintain MAPs 65-75. Acute blood loss anemia 05/29/2015 09/02/20 15 Overview: H/H remains low but stable. 07/10: H/H 6.6/21--transfused 1 unit 07/11: Transfused for 6.8/21.3 A/P: Monitor H/H, transfuse prn. Acute postoperative pain 05/29/2015 015 Overview: Post op lung Tx A/P: Dilaudid and acetaminophen prn for pain Hypothermia following anesthesia 05/29/2015 06/02/2015 Overview: 05/30/2015 Rewarming with forced warm air blanket Lactic acidosis 05/29/2015 06/03/2015 Overview: S/P Lung Tx A/P: Resolved with lactate levels of 1.2 today Right heart failure, NYHA class 4 04/27/2015 08/21/2015 Right heart failure due to pulmonary hypertensio n 04/21/2015 06/02/2015 Overview: Patient with right heart failure stigmata (JVD, ascites and lower extremity edema). BP has been on the lower side. Oxygen requirement increased to 3L from 2 L Plan: - Will get repeat Echo with bubble study (last one from January 2015). - Place a PA cath and continue to diurese while monitoring her right heart pressures. - Will need IV lasix-received 80 IV lasix on 04/20 and 100 IV lasix on 04/21 - Continue spironolactone. JAMES (acute kidney injury) 04/21/20152014 Overview: Baseline Cr 0.9 (04/09) -> Cr up to 2.4. A/P: JAMES is likely 2/2 ATN given hypotension and hemorrhage. Balance volume repletion with diuresis --> Cr continues to downtrend 1.92 -->1.37 today. Nephrology following - Maintain MAP 65 or greater, avoid nephrotoxic agents. Continue Lasix drip Hyponatremia with excess extracellular fluid vol ume 04/21/2015 06/02/2015 Overview: Likely hypervolemic hyponatremia. Na improved form 126 to 130 this am. Patient is already on torsemide, spironolactone and metolazone at home. Plan: - Continue to diurese as kidney function allows. 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 - O2 requirements as needed (uses 2L NC at home at night). - Continue home O2 - Patient was seen by lung transplant team. Tests required include: Quantitative perfusion scan (done) Gastric emptying study, esophageal manometry and 24hr pH study (ordered) Dental consultation (will need to call ) Social Work (on board) Iron deficiency anemia 01/25/2013 7 Overview: Menstruating female with iron deficiency Cardiomegaly 01/25/2013 09/02/2015 Overview: -- RV enlargement due to PH Exertional dyspnea 01/25/2013 09/02/2015 Mediastinal adenopathy 01/25/2013 5 Hilar adenopathy 01/25/2013 08/21/2015 Overview: Noted on imaging- mother with a history of Sarcoid Could be 2/2 to chronic VTE and pHTN Lung nodules 01/25/2013 09/02/2015 Overview: Noted on imaging Follow Anticoagulation management encounter 01/25/2013 01/26/2013 SUMMARY 01/24/2013 02/02/2013 Overview: This is a 17 year old female with no significant PMH other than migraine and minimal allergies who developed significant SOB within the past 2 months, this progressed to the point where she was unable to walk up 2 flights of stairs and had mild chest pressure with activty. This worsened on a recent trip to [place] where she was on a 6 hour plane ride leading to a near syncopal episode. She presented ot her PCP for fatigue and was found to have anemia, elevated WBC count and on echo a elevated RVSP and dilated RV. She was sent for CT at her local Ed where she was found to have 2 small PE's. Patient sent for further evaluation. At admission upon review of her Ct there is no PE noted, she does however have significant cardiomegaly, increase RVSP and right atrial dilatation, will need to work up cause of PAH PAH (pulmonary artery hypertension) 01/24/2013 08/21/2015 Overview: Found to have elevated RVSP on echo with RV dilatation. ? Sarcoid as she has a family hx as well as polyarthralgia and fatigue - now with hilar lymphadenopathy RHC revealing PA HTN. 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 as angio was suggestive of multiple PEs small and chronic Plan: Further Remodulin titration as an out-patient q weekly, now on 7.5 ng/kg/min PET scan for VALERIA in the chest complete 02/07 Night sweats 01/24/2013 08/21/2015 Overview: Unclear etiology- Awaiting further PAH workup and Rheum w/u is neg so far documented as of this encounter (statuses as of 03/10/2023) [facility] History of Past illness Narrative* Problem Noted Date Resolved Date Abnormality of gait 12/24/2015 04/11/2017 Ascites 07/13/2015 08/21/2015 Overview: Abdominal distension 07/09 KUB: air in stomach, repeat on 07/11: no dilated loops of bowel 07/11: US abdomen + ascites 07/13 Paracentesis ~ 2L straw colored fluid A/P: Abdomen soft, distended. No c/o abd. fullness. Monitor. Seizure 06/22/2015 08/21/2015 Overview: 06/22/2015 0230 Sudden new onset seizures - with generalized rhythmic contractions of all extremities plus facial twitching. Treated lorazepam and midazolam. Stat head CT negative for bleed. No acute metabolic changes on ABG. Concern for withdrawal from opioids - had been on high dose fentanyl infusion for 3 weeks -infusion d'tabitha on 06/18/15. Neuro consulted and continuous EEG monitoring ordered. Cont vEEG showing mild diffuse encephalopathy but no epileptiform form activity. A/P:: No seizure activity since 06/22. Keppra discontinued per ALD. Abdominal distension 06/15/2015 06/16/2015 Overview: TF held. KUB pending. Fever 06/08/2015 08/21/2015 Overview: S/p CT chest/abd 06/18, which showed RLL collapse, with findings suggestive of necrotic PNA, and scattered upper lobe opacities; moderate ascites, cholelithiasis and gallbladder sludging without cholecystitis. Remains afebrile. No leukocytosis. - Urine cx (06/07), neg; Bld cx (06/11) x2 - NGTD - One blood culture (06/06) grew lactobacillus - Bld/UA cx drawn (06/16) - neg - BAL cx (06/20): smear shows GPC in clusters - Bld cx (06/21) NGTD Plan: - Meropenem stopped on 06/22 - Cont PO Vancomycin through hospitalization - F/u BAL cx (06/20) - Smear currently shows GPC in clusters but no organisms on culture; in the setting of resurgence of fevers, restarted on IV Vanc on 06/18->. Continue Vancomycin oral Mild protein-calorie malnutrition 06/04/2015 04/11/2017 Overview: Nutrition following. Ice chips only per beside swallow evaluation. Advanced to popcicle and applesauce 07/19 A/P: Tolerating TF via corpak at goal. Continue TF at current rate, monitor labs. Speech evaluation today Ischemia of hand 06/01/2015 06/05/2015 Overview: Radial a line removed- good doppler signals Dexter ndiaye placed Heparin infusion for goal pTT 45-55. Ischemia of lower extremity 06/01/201505/13 Overview: Left lower extremity ischemia, has regained DP/PT doppler signals, but calf muscles remains somewhat tense. A/P: CKs normalizing, will stop following CK levels at this time. Vascular surgery signing off, appreciate assistance. 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 Radial art line was in LUE. Art line removed and arterial duplex showed radial artery thrombosis with patent ulnar artery. Pt now with strong pulse in L radial artery. Thrombocytopenia 06/01/2015 06/08/2015 Overview: Required massive transfusion after OR, placed on VA ECMO. Likely consumptive coagulopathy, however PF4 antibody sent given recent initiation of heparin IV. A/P: -Appears to be resolving, platelets 98,000 today. Cardiac insufficiency following cardiac surgery 05/30/2015 06/15/2015 Overview: Severe RV, arrived from OR on iflolan and Epi. iFlolan weaned off A/P: Off epi and iFlolan. Open chest wound 05/30/2015 06/11/2015 Overview: S/p Lung Tx A/P: Dressing intact, continue ATBX while chest is open. Possible closure today Volume overload 05/30/2015 09/02/2015 Overview: + fluid balance due to multiple transfusions and volume replacement for shock in the early post op period. A/P: - 1.9 L/24hr. Continue diuresis, monitor UOP and labs. Personal history of ECMO 05/30/2015 015 Overview: VV ECMO on 05/30, Transitioned to VA ECMO 05/31. VA ECMO weaned 06/03, back on VV ECMO Decannulated on 06/15. Stress hyperglycemia 05/30/2015 06/11/2015 Overview: S/P Lung Tx A/P: Stress hyperglycemia exacerbated by surgery and pressors. RHI infusion for glycemic control. Shock liver - hepatic insufficiency 05/30/2015 06/05/2015 Overview: Markedly elevated LFTs, persistent coagulopathy and bleeding despite near- continuous trasnfusion of blood products. Also recurrent hypoglycemia requiring D50 boluses and D10W infusion. A/P: LFTs downtrending. 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 Progressively hypoxemic after arrival to ICU despite maximal MV support with lung protective ventilation and inhaled epoprostenol. NMB, inverted I:E ratio, high PEEP, low Vt with permissive hypercapnia only helped transiently. VV ECMO placed. Optimize vent settings, BPH, pain control, VV ECMO. Worsening lung compliance d/t hypervolemia (pulm edema) and/ or PGD. Continues on iFlolan. Switched to VA ECMO but maintaining very low Vt plus high PEEP. 06/03 Washout with VA ECMO weaned. VV ECMO initiated. S/p ECMO decannulation 06/15. S/p trach 06/19. Tolerated ~>11hrs on 07/06, but CXR with increased atelectasis following. A/P: CXR with bilateral opacities. Tolerating TC ATC. Continue TC, BPH, pain control, OOB. Consumption coagulopathy 05/29/2015 015 Overview: S/P Lung Transplant. Severe coagulopathic bleeding intraop and immediately postop. Received multiple blood products - plts, cryoppt, FFP and prbcs. Also rewarming for postop hypothermia. A/P: 4u pRBC and 2u platelets distribution coordinator to OR. PF4 antibody negative Chest remains open. Hypotension 05/29/2015 06/15/2015 Overview: Post Lung Tx. Severely vasoplegic intraop and immediately postop requiring multiple inopressors. Received methylene blue bolus intraop. Arrived ICU on epi, norepi, vasopressin and phenylephrine was added in ICU to maintain MAP >60mmHg. Wean for MAP 65 or greater. A/P: Off epi. Maintain MAPs 65-75. Acute blood loss anemia 05/29/2015 09/02/20 15 Overview: H/H remains low but stable. 07/10: H/H 6.6/21--transfused 1 unit 07/11: Transfused for 6.8.3 A/P: Monitor H/H, transfuse prn. Acute postoperative pain 05/29/2015 015 Overview: Post op lung Tx A/P: Dilaudid and acetaminophen prn for pain Hypothermia following anesthesia 05/29/2015 06/02/2015 Overview: 05/30/2015 Rewarming with forced warm air blanket Lactic acidosis 05/29/2015 06/03/2015 Overview: S/P Lung Tx A/P: Resolved with lactate levels of 1.2 today Right heart failure, NYHA class 4 04/27/2015 08/21/2015 Right heart failure due to pulmonary hypertensio n 04/21/2015 06/02/2015 Overview: Patient with right heart failure stigmata (JVD, ascites and lower extremity edema). BP has been on the lower side. Oxygen requirement increased to 3L from 2 L Plan: - Will get repeat Echo with bubble study (last one from January 2015). - Place a PA cath and continue to diurese while monitoring her right heart pressures. - Will need IV lasix-received 80 IV lasix on 04/20 and 100 IV lasix on 04/21 - Continue spironolactone. JAMES (acute kidney injury) 04/21/20152014 Overview: Baseline Cr 0.9 (04/09) -> Cr up to 2.4. A/P: JAMES is likely 2/2 ATN given hypotension and hemorrhage. Balance volume repletion with diuresis --> Cr continues to downtrend 1.92 -->1.37 today. Nephrology following - Maintain MAP 65 or greater, avoid nephrotoxic agents. Continue Lasix drip Hyponatremia with excess extracellular fluid vol ume 04/21/2015 06/02/2015 Overview: Likely hypervolemic hyponatremia. Na improved form 126 to 130 this am. Patient is already on torsemide, spironolactone and metolazone at home. Plan: - Continue to diurese as kidney function allows. 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 - O2 requirements as needed (uses 2L NC at home at night). - Continue home O2 - Patient was seen by lung transplant team. Tests required include: Quantitative perfusion scan (done) Gastric emptying study, esophageal manometry and 24hr pH study (ordered) Dental consultation (will need to call ) Social Work (on board) Iron deficiency anemia 01/25/2013 7 Overview: Menstruating female with iron deficiency Cardiomegaly 01/25/2013 09/02/2015 Overview: -- RV enlargement due to PH Exertional dyspnea 01/25/2013 09/02/2015 Mediastinal adenopathy 01/25/2013 5 Hilar adenopathy 01/25/2013 08/21/2015 Overview: Noted on imaging- mother with a history of Sarcoid Could be 2/2 to chronic VTE and pHTN Lung nodules 01/25/2013 09/02/2015 Overview: Noted on imaging Follow Anticoagulation management encounter 01/25/2013 01/26/2013 SUMMARY 01/24/2013 02/02/2013 Overview: This is a 17 year old female with no significant PMH other than migraine and minimal allergies who developed significant SOB within the past 2 months, this progressed to the point where she was unable to walk up 2 flights of stairs and had mild chest pressure with activty. This worsened on a recent trip to [place] where she was on a 6 hour plane ride leading to a near syncopal episode. She presented ot her PCP for fatigue and was found to have anemia, elevated WBC count and on echo a elevated RVSP and dilated RV. She was sent for CT at her local Ed where she was found to have 2 small PE's. Patient sent for further evaluation. At admission upon review of her Ct there is no PE noted, she does however have significant cardiomegaly, increase RVSP and right atrial dilatation, will need to work up cause of PAH PAH (pulmonary artery hypertension) 01/24/2013 08/21/2015 Overview: Found to have elevated RVSP on echo with RV dilatation. ? Sarcoid as she has a family hx as well as polyarthralgia and fatigue - now with hilar lymphadenopathy RHC revealing PA HTN. 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 as angio was suggestive of multiple PEs small and chronic Plan: Further Remodulin titration as an out-patient q weekly, now on 7.5 ng/kg/min PET scan for VALERIA in the chest complete 5 Night sweats 01/24/2013 08/21/2015 Overview: Unclear etiology- Awaiting further PAH workup and Rheum w/u is neg so far documented as of this encounter (statuses as of 03/15/2023) [facility] History of Past illness Narrative* Problem Noted Date Resolved Date Abnormality of gait 12/24/2015 04/11/2017 Ascites 07/13/2015 08/21/2015 Overview: Abdominal distension 07/09 KUB: air in stomach, repeat on 07/11: no dilated loops of bowel 07/11: US abdomen + ascites 07/13 Paracentesis ~ 2L straw colored fluid A/P: Abdomen soft, distended. No c/o abd. fullness. Monitor. Seizure 06/22/2015 08/21/2015 Overview: 06/22/2015 0230 Sudden new onset seizures - with generalized rhythmic contractions of all extremities plus facial twitching. Treated lorazepam and midazolam. Stat head CT negative for bleed. No acute metabolic changes on ABG. Concern for withdrawal from opioids - had been on high dose fentanyl infusion for 3 weeks -infusion d'tabitha on 06/18/15. Neuro consulted and continuous EEG monitoring ordered. Cont vEEG showing mild diffuse encephalopathy but no epileptiform form activity. A/P:: No seizure activity since 06/22. Keppra discontinued per ALD. Abdominal distension 06/15/2015 06/16/2015 Overview: TF held. KUB pending. Fever 06/08/2015 08/21/2015 Overview: S/p CT chest/abd 06/18, which showed RLL collapse, with findings suggestive of necrotic PNA, and scattered upper lobe opacities; moderate ascites, cholelithiasis and gallbladder sludging without cholecystitis. Remains afebrile. No leukocytosis. - Urine cx (06/07), neg; Bld cx (06/11) x2 - NGTD - One blood culture (06/06) grew lactobacillus - Bld/UA cx drawn (06/16) - neg - BAL cx (06/20): smear shows GPC in clusters - Bld cx (06/21) NGTD Plan: - Meropenem stopped on 06/22 - Cont PO Vancomycin through hospitalization - F/u BAL cx (06/20) - Smear currently shows GPC in clusters but no organisms on culture; in the setting of resurgence of fevers, restarted on IV Vanc on 06/18->. Continue Vancomycin oral Mild protein-calorie malnutrition 06/04/2015 04/11/2017 Overview: Nutrition following. Ice chips only per beside swallow evaluation. Advanced to popcicle and applesauce 07/19 A/P: Tolerating TF via corpak at goal. Continue TF at current rate, monitor labs. Speech evaluation today Ischemia of hand 06/01/2015 06/05/2015 Overview: Radial a line removed- good doppler signals Rooke mittens placed Heparin infusion for goal pTT 45-55. Ischemia of lower extremity 06/01/201505/13 Overview: Left lower extremity ischemia, has regained DP/PT doppler signals, but calf muscles remains somewhat tense. A/P: CKs normalizing, will stop following CK levels at this time. Vascular surgery signing off, appreciate assistance. 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 Radial art line was in LUE. Art line removed and arterial duplex showed radial artery thrombosis with patent ulnar artery. Pt now with strong pulse in L radial artery. Thrombocytopenia 06/01/2015 06/08/2015 Overview: Required massive transfusion after OR, placed on [facility] ECMO. Likely consumptive coagulopathy, however PF4 antibody sent given recent initiation of heparin IV. A/P: -Appears to be resolving, platelets 98,000 today. Cardiac insufficiency following cardiac surgery 05/30/2015 06/15/2015 Overview: Severe RV, arrived from OR on iflolan and Epi. iFlolan weaned off A/P: Off epi and iFlolan. Open chest wound 05/30/2015 06/11/2015 Overview: S/p Lung Tx A/P: Dressing intact, continue ATBX while chest is open. Possible closure today Volume overload 05/30/2015 09/02/2015 Overview: + fluid balance due to multiple transfusions and volume replacement for shock in the early post op period. A/P: - 1.9 L/24hr. Continue diuresis, monitor UOP and labs. Personal history of ECMO 05/30/2015 015 Overview: VV ECMO on 05/30, Transitioned to VA ECMO 05/31. VA ECMO weaned 06/03, back on VV ECMO Decannulated on 06/15. Stress hyperglycemia 05/30/2015 06/11/2015 Overview: S/P Lung Tx A/P: Stress hyperglycemia exacerbated by surgery and pressors. RHI infusion for glycemic control. Shock liver - hepatic insufficiency 05/30/2015 06/05/2015 Overview: Markedly elevated LFTs, persistent coagulopathy and bleeding despite near- continuous trasnfusion of blood products. Also recurrent hypoglycemia requiring D50 boluses and D10W infusion. A/P: LFTs downtrending. 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 Progressively hypoxemic after arrival to ICU despite maximal MV support with lung protective ventilation and inhaled epoprostenol. NMB, inverted I:E ratio, high PEEP, low Vt with permissive hypercapnia only helped transiently. VV ECMO placed. Optimize vent settings, BPH, pain control, VV ECMO. Worsening lung compliance d/t hypervolemia (pulm edema) and/ or PGD. Continues on iFlolan. Switched to VA ECMO but maintaining very low Vt plus high PEEP. 06/03 Washout with VA ECMO weaned. VV ECMO initiated. S/p ECMO decannulation 06/15. S/p trach 06/19. Tolerated ~>11hrs on 07/06, but CXR with increased atelectasis following. A/P: CXR with bilateral opacities. Tolerating TC ATC. Continue TC, BPH, pain control, OOB. Consumption coagulopathy 05/29/2015 015 Overview: S/P Lung Transplant. Severe coagulopathic bleeding intraop and immediately postop. Received multiple blood products - plts, cryoppt, FFP and prbcs. Also rewarming for postop hypothermia. A/P: 4u pRBC and 2u platelets distribution coordinator to OR. PF4 antibody negative Chest remains open. Hypotension 05/29/2015 06/15/2015 Overview: Post Lung Tx. Severely vasoplegic intraop and immediately postop requiring multiple inopressors. Received methylene blue bolus intraop. Arrived ICU on epi, norepi, vasopressin and phenylephrine was added in ICU to maintain MAP >60mmHg. Wean for MAP 65 or greater. A/P: Off epi. Maintain MAPs 65-75. Acute blood loss anemia 05/29/2015 09/02/20 15 Overview: H/H remains low but stable. 07/10: H/H 6.6/21--transfused 1 unit 07/11: Transfused for 6.8/21.3 A/P: Monitor H/H, transfuse prn. Acute postoperative pain 05/29/2015 015 Overview: Post op lung Tx A/P: Dilaudid and acetaminophen prn for pain Hypothermia following anesthesia 05/29/2015 06/02/2015 Overview: 05/30/2015 Rewarming with forced warm air blanket Lactic acidosis 05/29/2015 06/03/2015 Overview: S/P Lung Tx A/P: Resolved with lactate levels of 1.2 today Right heart failure, NYHA class 4 04/27/2015 08/21/2015 Right heart failure due to pulmonary hypertensio n 04/21/2015 06/02/2015 Overview: Patient with right heart failure stigmata (JVD, ascites and lower extremity edema). BP has been on the lower side. Oxygen requirement increased to 3L from 2 L Plan: - Will get repeat Echo with bubble study (last one from January 2015). - Place a PA cath and continue to diurese while monitoring her right heart pressures. - Will need IV lasix-received 80 IV lasix on 04/20 and 100 IV lasix on 04/21 - Continue spironolactone. JAMES (acute kidney injury) 04/21/20152014 Overview: Baseline Cr 0.9 (04/09) -> Cr up to 2.4. A/P: JAMES is likely 2/2 ATN given hypotension and hemorrhage. Balance volume repletion with diuresis --> Cr continues to downtrend 1.92 -->1.37 today. Nephrology following - Maintain MAP 65 or greater, avoid nephrotoxic agents. Continue Lasix drip Hyponatremia with excess extracellular fluid vol ume 04/21/2015 06/02/2015 Overview: Likely hypervolemic hyponatremia. Na improved form 126 to 130 this am. Patient is already on torsemide, spironolactone and metolazone at home. Plan: - Continue to diurese as kidney function allows. 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 - O2 requirements as needed (uses 2L NC at home at night). - Continue home O2 - Patient was seen by lung transplant team. Tests required include: Quantitative perfusion scan (done) Gastric emptying study, esophageal manometry and 24hr pH study (ordered) Dental consultation (will need to call ) Social Work (on board) Iron deficiency anemia 01/25/2013 7 Overview: Menstruating female with iron deficiency Cardiomegaly 01/25/2013 09/02/2015 Overview: -- RV enlargement due to PH Exertional dyspnea 01/25/2013 09/02/2015 Mediastinal adenopathy 01/25/2013 5 Hilar adenopathy 01/25/2013 08/21/2015 Overview: Noted on imaging- mother with a history of Sarcoid Could be 2/2 to chronic VTE and pHTN Lung nodules 01/25/2013 09/02/2015 Overview: Noted on imaging Follow Anticoagulation management encounter 01/25/2013 01/26/2013 SUMMARY 01/24/2013 02/02/2013 Overview: This is a 17 year old female with no significant PMH other than migraine and minimal allergies who developed significant SOB within the past 2 months, this progressed to the point where she was unable to walk up 2 flights of stairs and had mild chest pressure with activty. This worsened on a recent trip to [place] where she was on a 6 hour plane ride leading to a near syncopal episode. She presented ot her PCP for fatigue and was found to have anemia, elevated WBC count and on echo a elevated RVSP and dilated RV. She was sent for CT at her local Ed where she was found to have 2 small PE's. Patient sent for further evaluation. At admission upon review of her Ct there is no PE noted, she does however have significant cardiomegaly, increase RVSP and right atrial dilatation, will need to work up cause of PAH PAH (pulmonary artery hypertension) 01/24/2013 08/21/2015 Overview: Found to have elevated RVSP on echo with RV dilatation. ? Sarcoid as she has a family hx as well as polyarthralgia and fatigue - now with hilar lymphadenopathy RHC revealing PA HTN. 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 as angio was suggestive of multiple PEs small and chronic Plan: Further Remodulin titration as an out-patient q weekly, now on 7.5 ng/kg/min PET scan for VALERIA in the chest complete 30 Night sweats 01/24/2013 08/21/2015 Overview: Unclear etiology- Awaiting further PAH workup and Rheum w/u is neg so far documented as of this encounter (statuses as of 03/17/2023) [facility] History of Past illness Narrative* Problem Noted Date Diagnosed Date Resolved Date Abnormality of gait 12/24/2015 04/11/20 17 Ascites 07/13/2015 08/21/2015 Overview: Abdominal distension 07/09 KUB: air in stomach, repeat on 07/11: no dilated loops of bowel 07/11: US abdomen + ascites 07/13 Paracentesis ~ 2L straw colored fluid A/P: Abdomen soft, distended. No c/o abd. fullness. Monitor. Seizure 06/22/2015 08/21/2015 Overview: 06/22/2015 0230 Sudden new onset seizures - with generalized rhythmic contractions of all extremities plus facial twitching. Treated lorazepam and midazolam. Stat head CT negative for bleed. No acute metabolic changes on ABG. Concern for withdrawal from opioids - had been on high dose fentanyl infusion for 3 weeks -infusion d'tabitha on 06/18/15. Neuro consulted and continuous EEG monitoring ordered. Cont vEEG showing mild diffuse encephalopathy but no epileptiform form activity. A/P:: No seizure activity since 06/22. Keppra discontinued per ALD. Abdominal distension 06/15/2015 015 Overview: TF held. KUB pending. Fever 06/08/2015 08/21/2015 Overview: S/p CT chest/abd 06/18, which showed RLL collapse, with findings suggestive of necrotic PNA, and scattered upper lobe opacities; moderate ascites, cholelithiasis and gallbladder sludging without cholecystitis. Remains afebrile. No leukocytosis. - Urine cx (06/07), neg; Bld cx (06/11) x2 - NGTD - One blood culture (06/06) grew lactobacillus - Bld/UA cx drawn (06/16) - neg - BAL cx (06/20): smear shows GPC in clusters - Bld cx (06/21) NGTD Plan: - Meropenem stopped on 06/22 - Cont PO Vancomycin through hospitalization - F/u BAL cx (06/20) - Smear currently shows GPC in clusters but no organisms on culture; in the setting of resurgence of fevers, restarted on IV Vanc on 06/18->. Continue Vancomycin oral Mild protein-calorie malnutrition 06/04/2015 04/11/2017 Overview: Nutrition following. Ice chips only per beside swallow evaluation. Advanced to popcicle and applesauce 07/19 A/P: Tolerating TF via corpak at goal. Continue TF at current rate, monitor labs. Speech evaluation today Ischemia of hand 06/01/2015 06/05/2015 Overview: Radial a line removed- good doppler signals Rooke mittens placed Heparin infusion for goal pTT 45-55. Ischemia of lower extremity 06/01/2015 06/08/2015 Overview: Left lower extremity ischemia, has regained DP/PT doppler signals, but calf muscles remains somewhat tense. A/P: CKs normalizing, will stop following CK levels at this time. Vascular surgery signing off, appreciate assistance. 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 Radial art line was in LUE. Art line removed and arterial duplex showed radial artery thrombosis with patent ulnar artery. Pt now with strong pulse in L radial artery. Thrombocytopenia 06/01/2015 06/08/2015 Overview: Required massive transfusion after OR, placed on VA ECMO. Likely consumptive coagulopathy, however PF4 antibody sent given recent initiation of heparin IV. A/P: -Appears to be resolving, platelets 98,000 today. Cardiac insufficiency follow ing cardiac surgery 05/30/2015 06/15/2015 Overview: Severe RV, arrived from OR on iflolan and Epi. iFlolan weaned off A/P: Off epi and iFlolan. Open chest wound 05/30/2015 06/11/2015 Overview: S/p Lung Tx A/P: Dressing intact, continue ATBX while chest is open. Possible closure today Volume overload 05/30/2015 09/02/2015 Overview: + fluid balance due to multiple transfusions and volume replacement for shock in the early post op period. A/P: - 1.9 L/24hr. Continue diuresis, monitor UOP and labs. Personal history of ECMO 05/30/201502/2015 Overview: VV ECMO on 05/30, Transitioned to VA ECMO 05/31. VA ECMO weaned 06/03, back on VV ECMO Decannulated on 06/15. Stress hyperglycemia 05/30/2015 015 Overview: S/P Lung Tx A/P: Stress hyperglycemia exacerbated by surgery and pressors. RHI infusion for glycemic control. Shock liver - hepatic insufficiency 05/30/2015 06/05/2015 Overview: Markedly elevated LFTs, persistent coagulopathy and bleeding despite near- continuous trasnfusion of blood products. Also recurrent hypoglycemia requiring D50 boluses and D10W infusion. A/P: LFTs downtrending. 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 Progressively hypoxemic after arrival to ICU despite maximal MV support with lung protective ventilation and inhaled epoprostenol. NMB, inverted I:E ratio, high PEEP, low Vt with permissive hypercapnia only helped transiently. VV ECMO placed. Optimize vent settings, BPH, pain control, VV ECMO. Worsening lung compliance d/t hypervolemia (pulm edema) and/ or PGD. Continues on iFlolan. Switched to VA ECMO but maintaining very low Vt plus high PEEP. 06/03 Washout with VA ECMO weaned. VV ECMO initiated. S/p ECMO decannulation 06/15. S/p trach 06/19. Tolerated ~>11hrs on 07/06, but CXR with increased atelectasis following. A/P: CXR with bilateral opacities. Tolerating TC ATC. Continue TC, BPH, pain control, OOB. Consumption coagulopathy 05/29/2015 Overview: S/P Lung Transplant. Severe coagulopathic bleeding intraop and immediately postop. Received multiple blood products - plts, cryoppt, FFP and prbcs. Also rewarming for postop hypothermia. A/P: 4u pRBC and 2u platelets distribution coordinator to OR. PF4 antibody negative Chest remains open. Hypotension 05/29/2015 06/15/2015 Overview: Post Lung Tx. Severely vasoplegic intraop and immediately postop requiring multiple inopressors. Received methylene blue bolus intraop. Arrived ICU on epi, norepi, vasopressin and phenylephrine was added in ICU to maintain MAP >60mmHg. Wean for MAP 65 or greater. A/P: Off epi. Maintain MAPs 65-75. Acute blood loss anemia 05/29/201508/12 Overview: H/H remains low but stable. 07/10: H/H 6.6/21--transfused 1 unit 07/11: Transfused for 6.8.3 A/P: Monitor H/H, transfuse prn. Acute postoperative pain 05/29/2015 Overview: Post op lung Tx A/P: Dilaudid and acetaminophen prn for pain Hypothermia following anesthesia 05/29/2015 06/02/2015 Overview: 05/30/2015 Rewarming with forced warm air blanket Lactic acidosis 05/29/2015 06/03/2015 Overview: S/P Lung Tx A/P: Resolved with lactate levels of 1.2 today Right heart failure, NYHA class 4 04/27/2015 08/21/2015 Right heart failure due to p ulmonary hypertension 04/21/2015 06/02/2015 Overview: Patient with right heart failure stigmata (JVD, ascites and lower extremity edema). BP has been on the lower side. Oxygen requirement increased to 3L from 2 L Plan: - Will get repeat Echo with bubble study (last one from January 2015). - Place a PA cath and continue to diurese while monitoring her right heart pressures. - Will need IV lasix-received 80 IV lasix on 04/20 and 100 IV lasix on 04/21 - Continue spironolactone. JAMES (acute kidney injury) 04/21/2015 Overview: Baseline Cr 0.9 (04/09) -> Cr up to 2.4. A/P: JAMES is likely 2/2 ATN given hypotension and hemorrhage. Balance volume repletion with diuresis --> Cr continues to downtrend 1.92 -->1.37 today. Nephrology following - Maintain MAP 65 or greater, avoid nephrotoxic agents. Continue Lasix drip Hyponatremia with excess ext racellular fluid volume 04/21/2015 06/02/2015 Overview: Likely hypervolemic hyponatremia. Na improved form 126 to 130 this am. Patient is already on torsemide, spironolactone and metolazone at home. Plan: - Continue to diurese as kidney function allows. Palpitations 12/24/2014 08/21/2015 Hypoxemia 07/28/2014 08/21/2015 Vocal cord paralysis 03/31/2014 015 CTEPH (chronic thromboemboli c pulmonary hypertension) 04/29/2013 06/02/2015 Overview: - Will continue home meds including Bosentan, Tadalafil and Treprostinil. - O2 requirements as needed (uses 2L NC at home at night). - Continue home O2 - Patient was seen by lung transplant team. Tests required include: Quantitative perfusion scan (done) Gastric emptying study, esophageal manometry and 24hr pH study (ordered) Dental consultation (will need to call ) Social Work (on board) Iron deficiency anemia 01/25/201304/11 Overview: Menstruating female with iron deficiency Cardiomegaly 01/25/2013 09/02/2015 Overview: -- RV enlargement due to PH Exertional dyspnea 01/25/2013 5 Mediastinal adenopathy 01/25/201308/21 Hilar adenopathy 01/25/2013 08/21/2015 Overview: Noted on imaging- mother with a history of Sarcoid Could be 2/2 to chronic VTE and pHTN Lung nodules 01/25/2013 09/02/2015 Overview: Noted on imaging Follow Anticoagulation management encounter 01/25/2013 01/26/2013 SUMMARY 01/24/2013 02/02/2013 Overview: This is a 17 year old female with no significant PMH other than migraine and minimal allergies who developed significant SOB within the past 2 months, this progressed to the point where she was unable to walk up 2 flights of stairs and had mild chest pressure with activty. This worsened on a recent trip to [place] where she was on a 6 hour plane ride leading to a near syncopal episode. She presented ot her PCP for fatigue and was found to have anemia, elevated WBC count and on echo a elevated RVSP and dilated RV. She was sent for CT at her local Ed where she was found to have 2 small PE's. Patient sent for further evaluation. At admission upon review of her Ct there is no PE noted, she does however have significant cardiomegaly, increase RVSP and right atrial dilatation, will need to work up cause of PAH PAH (pulmonary artery hypertension) 01/24/2013 08/21/2015 Overview: Found to have elevated RVSP on echo with RV dilatation. ? Sarcoid as she has a family hx as well as polyarthralgia and fatigue - now with hilar lymphadenopathy RHC revealing PA HTN. 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 as angio was suggestive of multiple PEs small and chronic Plan: Further Remodulin titration as an out-patient q weekly, now on 7.5 ng/kg/min PET scan for VALERIA in the chest complete 02/07 Night sweats 01/24/2013 08/21/2015 Overview: Unclear etiology- Awaiting further PAH workup and Rheum w/u is neg so far documented as of this encounter (statuses as of 04/03/2023) [facility] History of Past illness Narrative* Problem Noted Date Diagnosed Date Resolved Date Abnormality of gait 12/24/2015 04/11/20 17 Ascites 07/13/2015 08/21/2015 Overview: Abdominal distension 07/09 KUB: air in stomach, repeat on 07/11: no dilated loops of bowel 07/11: US abdomen + ascites 07/13 Paracentesis ~ 2L straw colored fluid A/P: Abdomen soft, distended. No c/o abd. fullness. Monitor. Seizure 06/22/2015 08/21/2015 Overview: 06/22/2015 0230 Sudden new onset seizures - with generalized rhythmic contractions of all extremities plus facial twitching. Treated lorazepam and midazolam. Stat head CT negative for bleed. No acute metabolic changes on ABG. Concern for withdrawal from opioids - had been on high dose fentanyl infusion for 3 weeks -infusion d'tabitha on 06/18/15. Neuro consulted and continuous EEG monitoring ordered. Cont vEEG showing mild diffuse encephalopathy but no epileptiform form activity. A/P:: No seizure activity since 06/22. Keppra discontinued per ALD. Abdominal distension 06/15/2015 015 Overview: TF held. KUB pending. Fever 06/08/2015 08/21/2015 Overview: S/p CT chest/abd 06/18, which showed RLL collapse, with findings suggestive of necrotic PNA, and scattered upper lobe opacities; moderate ascites, cholelithiasis and gallbladder sludging without cholecystitis. Remains afebrile. No leukocytosis. - Urine cx (06/07), neg; Bld cx (06/11) x2 - NGTD - One blood culture (06/06) grew lactobacillus - Bld/UA cx drawn (06/16) - neg - BAL cx (06/20): smear shows GPC in clusters - Bld cx (06/21) NGTD Plan: - Meropenem stopped on 06/22 - Cont PO Vancomycin through hospitalization - F/u BAL cx (06/20) - Smear currently shows GPC in clusters but no organisms on culture; in the setting of resurgence of fevers, restarted on IV Vanc on 06/18->. Continue Vancomycin oral Mild protein-calorie malnutrition 06/04/2015 04/11/2017 Overview: Nutrition following. Ice chips only per beside swallow evaluation. Advanced to popcicle and applesauce 07/19 A/P: Tolerating TF via corpak at goal. Continue TF at current rate, monitor labs. Speech evaluation today Ischemia of hand 06/01/2015 06/05/2015 Overview: Radial a line removed- good doppler signals Rooke mittens placed Heparin infusion for goal pTT 45-55. Ischemia of lower extremity 06/01/2015 06/08/2015 Overview: Left lower extremity ischemia, has regained DP/PT doppler signals, but calf muscles remains somewhat tense. A/P: CKs normalizing, will stop following CK levels at this time. Vascular surgery signing off, appreciate assistance. 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 Radial art line was in LUE. Art line removed and arterial duplex showed radial artery thrombosis with patent ulnar artery. Pt now with strong pulse in L radial artery. Thrombocytopenia 06/01/2015 06/08/2015 Overview: Required massive transfusion after OR, placed on VA ECMO. Likely consumptive coagulopathy, however PF4 antibody sent given recent initiation of heparin IV. A/P: -Appears to be resolving, platelets 98,000 today. Cardiac insufficiency follow ing cardiac surgery 05/30/2015 06/15/2015 Overview: Severe RV, arrived from OR on iflolan and Epi. iFlolan weaned off A/P: Off epi and iFlolan. Open chest wound 05/30/2015 06/11/2015 Overview: S/p Lung Tx A/P: Dressing intact, continue ATBX while chest is open. Possible closure today Volume overload 05/30/2015 09/02/2015 Overview: + fluid balance due to multiple transfusions and volume replacement for shock in the early post op period. A/P: - 1.9 L/24hr. Continue diuresis, monitor UOP and labs. Personal history of ECMO 05/30/201502/2015 Overview: VV ECMO on 05/30, Transitioned to VA ECMO 05/31. VA ECMO weaned 06/03, back on VV ECMO Decannulated on 06/15. Stress hyperglycemia 05/30/2015 015 Overview: S/P Lung Tx A/P: Stress hyperglycemia exacerbated by surgery and pressors. RHI infusion for glycemic control. Shock liver - hepatic insufficiency 05/30/2015 06/05/2015 Overview: Markedly elevated LFTs, persistent coagulopathy and bleeding despite near- continuous trasnfusion of blood products. Also recurrent hypoglycemia requiring D50 boluses and D10W infusion. A/P: LFTs downtrending. 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 Progressively hypoxemic after arrival to ICU despite maximal MV support with lung protective ventilation and inhaled epoprostenol. NMB, inverted I:E ratio, high PEEP, low Vt with permissive hypercapnia only helped transiently. VV ECMO placed. Optimize vent settings, BPH, pain control, VV ECMO. Worsening lung compliance d/t hypervolemia (pulm edema) and/ or PGD. Continues on iFlolan. Switched to VA ECMO but maintaining very low Vt plus high PEEP. 06/03 Washout with VA ECMO weaned. VV ECMO initiated. S/p ECMO decannulation 06/15. S/p trach 06/19. Tolerated ~>11hrs on 07/06, but CXR with increased atelectasis following. A/P: CXR with bilateral opacities. Tolerating TC ATC. Continue TC, BPH, pain control, OOB. Consumption coagulopathy 05/29/2015 Overview: S/P Lung Transplant. Severe coagulopathic bleeding intraop and immediately postop. Received multiple blood products - plts, cryoppt, FFP and prbcs. Also rewarming for postop hypothermia. A/P: 4u pRBC and 2u platelets distribution coordinator to OR. PF4 antibody negative Chest remains open. Hypotension 05/29/2015 06/15/2015 Overview: Post Lung Tx. Severely vasoplegic intraop and immediately postop requiring multiple inopressors. Received methylene blue bolus intraop. Arrived ICU on epi, norepi, vasopressin and phenylephrine was added in ICU to maintain MAP >60mmHg. Wean for MAP 65 or greater. A/P: Off epi. Maintain MAPs 65-75. Acute blood loss anemia 05/29/201508/12 Overview: H/H remains low but stable. 07/10: H/H 6.6--transfused 1 unit 07/11: Transfused for 6.8.3 A/P: Monitor H/H, transfuse prn. Acute postoperative pain 05/29/2015 Overview: Post op lung Tx A/P: Dilaudid and acetaminophen prn for pain Hypothermia following anesthesia 05/29/2015 06/02/2015 Overview: 05/30/2015 Rewarming with forced warm air blanket Lactic acidosis 05/29/2015 06/03/2015 Overview: S/P Lung Tx A/P: Resolved with lactate levels of 1.2 today Right heart failure, NYHA class 4 04/27/2015 08/21/2015 Right heart failure due to p ulmonary hypertension 04/21/2015 06/02/2015 Overview: Patient with right heart failure stigmata (JVD, ascites and lower extremity edema). BP has been on the lower side. Oxygen requirement increased to 3L from 2 L Plan: - Will get repeat Echo with bubble study (last one from January 2015). - Place a PA cath and continue to diurese while monitoring her right heart pressures. - Will need IV lasix-received 80 IV lasix on 04/20 and 100 IV lasix on 04/21 - Continue spironolactone. JAMES (acute kidney injury) 04/21/2015 Overview: Baseline Cr 0.9 (04/09) -> Cr up to 2.4. A/P: JAMES is likely 2/2 ATN given hypotension and hemorrhage. Balance volume repletion with diuresis --> Cr continues to downtrend 1.92 -->1.37 today. Nephrology following - Maintain MAP 65 or greater, avoid nephrotoxic agents. Continue Lasix drip Hyponatremia with excess ext racellular fluid volume 04/21/2015 06/02/2015 Overview: Likely hypervolemic hyponatremia. Na improved form 126 to 130 this am. Patient is already on torsemide, spironolactone and metolazone at home. Plan: - Continue to diurese as kidney function allows. Palpitations 12/24/2014 08/21/2015 Hypoxemia 07/28/2014 08/21/2015 Vocal cord paralysis 03/31/2014 015 CTEPH (chronic thromboemboli c pulmonary hypertension) 04/29/2013 06/02/2015 Overview: - Will continue home meds including Bosentan, Tadalafil and Treprostinil. - O2 requirements as needed (uses 2L NC at home at night). - Continue home O2 - Patient was seen by lung transplant team. Tests required include: Quantitative perfusion scan (done) Gastric emptying study, esophageal manometry and 24hr pH study (ordered) Dental consultation (will need to call ) Social Work (on board) Iron deficiency anemia 01/25/201304/11 Overview: Menstruating female with iron deficiency Cardiomegaly 01/25/2013 09/02/2015 Overview: -- RV enlargement due to PH Exertional dyspnea 01/25/2013 5 Mediastinal adenopathy 01/25/201308/21 Hilar adenopathy 01/25/2013 08/21/2015 Overview: Noted on imaging- mother with a history of Sarcoid Could be 2/2 to chronic VTE and pHTN Lung nodules 01/25/2013 09/02/2015 Overview: Noted on imaging Follow Anticoagulation management encounter 01/25/2013 01/26/2013 SUMMARY 01/24/2013 02/02/2013 Overview: This is a 17 year old female with no significant PMH other than migraine and minimal allergies who developed significant SOB within the past 2 months, this progressed to the point where she was unable to walk up 2 flights of stairs and had mild chest pressure with activty. This worsened on a recent trip to [place] where she was on a 6 hour plane ride leading to a near syncopal episode. She presented ot her PCP for fatigue and was found to have anemia, elevated WBC count and on echo a elevated RVSP and dilated RV. She was sent for CT at her local Ed where she was found to have 2 small PE's. Patient sent for further evaluation. At admission upon review of her Ct there is no PE noted, she does however have significant cardiomegaly, increase RVSP and right atrial dilatation, will need to work up cause of PAH PAH (pulmonary artery hypertension) 01/24/2013 08/21/2015 Overview: Found to have elevated RVSP on echo with RV dilatation. ? Sarcoid as she has a family hx as well as polyarthralgia and fatigue - now with hilar lymphadenopathy RHC revealing PA HTN. 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 as angio was suggestive of multiple PEs small and chronic Plan: Further Remodulin titration as an out-patient q weekly, now on 7.5 ng/kg/min PET scan for VALERIA in the chest complete 02/07 Night sweats 01/24/2013 08/21/2015 Overview: Unclear etiology- Awaiting further PAH workup and Rheum w/u is neg so far documented as of this encounter (statuses as of 04/28/2023) [facility] History of Past illness Narrative* Problem Noted Date Diagnosed Date Resolved Date Abnormality of gait 12/24/2015 04/11/20 17 Ascites 07/13/2015 08/21/2015 Overview: Abdominal distension 07/09 KUB: air in stomach, repeat on 10/31: no dilated loops of bowel 07/11: US abdomen + ascites 07/13 Paracentesis ~ 2L straw colored fluid A/P: Abdomen soft, distended. No c/o abd. fullness. Monitor. Seizure 06/22/2015 08/21/2015 Overview: 06/22/2015 0230 Sudden new onset seizures - with generalized rhythmic contractions of all extremities plus facial twitching. Treated lorazepam and midazolam. Stat head CT negative for bleed. No acute metabolic changes on ABG. Concern for withdrawal from opioids - had been on high dose fentanyl infusion for 3 weeks -infusion d'tabitha on 06/18/15. Neuro consulted and continuous EEG monitoring ordered. Cont vEEG showing mild diffuse encephalopathy but no epileptiform form activity. A/P:: No seizure activity since 06/22. Keppra discontinued per ALD. Abdominal distension 06/15/2015 015 Overview: TF held. KUB pending. Fever 06/08/2015 08/21/2015 Overview: S/p CT chest/abd 06/18, which showed RLL collapse, with findings suggestive of necrotic PNA, and scattered upper lobe opacities; moderate ascites, cholelithiasis and gallbladder sludging without cholecystitis. Remains afebrile. No leukocytosis. - Urine cx (06/07), neg; Bld cx (06/11) x2 - NGTD - One blood culture (06/06) grew lactobacillus - Bld/UA cx drawn (06/16) - neg - BAL cx (06/20): smear shows GPC in clusters - Bld cx (06/21) NGTD Plan: - Meropenem stopped on 06/22 - Cont PO Vancomycin through hospitalization - F/u BAL cx (06/20) - Smear currently shows GPC in clusters but no organisms on culture; in the setting of resurgence of fevers, restarted on IV Vanc on 06/18->. Continue Vancomycin oral Mild protein-calorie malnutrition 06/04/2015 04/11/2017 Overview: Nutrition following. Ice chips only per beside swallow evaluation. Advanced to popcicle and applesauce 07/19 A/P: Tolerating TF via corpak at goal. Continue TF at current rate, monitor labs. Speech evaluation today Ischemia of hand 06/01/2015 06/05/2015 Overview: Radial a line removed- good doppler signals Dexter ndiaye placed Heparin infusion for goal pTT 45-55. Ischemia of lower extremity 06/01/2015 06/08/2015 Overview: Left lower extremity ischemia, has regained DP/PT doppler signals, but calf muscles remains somewhat tense. A/P: CKs normalizing, will stop following CK levels at this time. Vascular surgery signing off, appreciate assistance. 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 Radial art line was in LUE. Art line removed and arterial duplex showed radial artery thrombosis with patent ulnar artery. Pt now with strong pulse in L radial artery. Thrombocytopenia 06/01/2015 06/08/2015 Overview: Required massive transfusion after OR, placed on VA ECMO. Likely consumptive coagulopathy, however PF4 antibody sent given recent initiation of heparin IV. A/P: -Appears to be resolving, platelets 98,000 today. Cardiac insufficiency follow ing cardiac surgery 05/30/2015 06/15/2015 Overview: Severe RV, arrived from OR on iflolan and Epi. iFlolan weaned off A/P: Off epi and iFlolan. Open chest wound 05/30/2015 06/11/2015 Overview: S/p Lung Tx A/P: Dressing intact, continue ATBX while chest is open. Possible closure today Volume overload 05/30/2015 09/02/2015 Overview: + fluid balance due to multiple transfusions and volume replacement for shock in the early post op period. A/P: - 1.9 L/24hr. Continue diuresis, monitor UOP and labs. Personal history of ECMO 05/30/201502/2015 Overview: VV ECMO on 05/30, Transitioned to VA ECMO 05/31. VA ECMO weaned 06/03, back on VV ECMO Decannulated on 06/15. Stress hyperglycemia 05/30/2015 015 Overview: S/P Lung Tx A/P: Stress hyperglycemia exacerbated by surgery and pressors. RHI infusion for glycemic control. Shock liver - hepatic insufficiency 05/30/2015 06/05/2015 Overview: Markedly elevated LFTs, persistent coagulopathy and bleeding despite near- continuous trasnfusion of blood products. Also recurrent hypoglycemia requiring D50 boluses and D10W infusion. A/P: LFTs downtrending. 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 Progressively hypoxemic after arrival to ICU despite maximal MV support with lung protective ventilation and inhaled epoprostenol. NMB, inverted I:E ratio, high PEEP, low Vt with permissive hypercapnia only helped transiently. VV ECMO placed. Optimize vent settings, BPH, pain control, VV ECMO. Worsening lung compliance d/t hypervolemia (pulm edema) and/ or PGD. Continues on iFlolan. Switched to VA ECMO but maintaining very low Vt plus high PEEP. 06/03 Washout with VA ECMO weaned. VV ECMO initiated. S/p ECMO decannulation 06/15. S/p trach 06/19. Tolerated ~>11hrs on 07/06, but CXR with increased atelectasis following. A/P: CXR with bilateral opacities. Tolerating TC ATC. Continue TC, BPH, pain control, OOB. Consumption coagulopathy 05/29/2015 Overview: S/P Lung Transplant. Severe coagulopathic bleeding intraop and immediately postop. Received multiple blood products - plts, cryoppt, FFP and prbcs. Also rewarming for postop hypothermia. A/P: 4u pRBC and 2u platelets distribution coordinator to OR. PF4 antibody negative Chest remains open. Hypotension 05/29/2015 06/15/2015 Overview: Post Lung Tx. Severely vasoplegic intraop and immediately postop requiring multiple inopressors. Received methylene blue bolus intraop. Arrived ICU on epi, norepi, vasopressin and phenylephrine was added in ICU to maintain MAP >60mmHg. Wean for MAP 65 or greater. A/P: Off epi. Maintain MAPs 65-75. Acute blood loss anemia 05/29/201508/12 Overview: H/H remains low but stable. 07/10: H/H 6.6--transfused 1 unit 07/11: Transfused for 6.05/01.3 A/P: Monitor H/H, transfuse prn. Acute postoperative pain 05/29/2015 Overview: Post op lung Tx A/P: Dilaudid and acetaminophen prn for pain Hypothermia following anesthesia 05/29/2015 06/02/2015 Overview: 05/30/2015 Rewarming with forced warm air blanket Lactic acidosis 05/29/2015 06/03/2015 Overview: S/P Lung Tx A/P: Resolved with lactate levels of 1.2 today Right heart failure, NYHA class 4 04/27/2015 08/21/2015 Right heart failure due to p ulmonary hypertension 04/21/2015 06/02/2015 Overview: Patient with right heart failure stigmata (JVD, ascites and lower extremity edema). BP has been on the lower side. Oxygen requirement increased to 3L from 2 L Plan: - Will get repeat Echo with bubble study (last one from January 2015). - Place a PA cath and continue to diurese while monitoring her right heart pressures. - Will need IV lasix-received 80 IV lasix on 04/20 and 100 IV lasix on 04/21 - Continue spironolactone. JAMES (acute kidney injury) 04/21/2015 Overview: Baseline Cr 0.9 (04/09) -> Cr up to 2.4. A/P: JAMES is likely 2/2 ATN given hypotension and hemorrhage. Balance volume repletion with diuresis --> Cr continues to downtrend 1.92 -->1.37 today. Nephrology following - Maintain MAP 65 or greater, avoid nephrotoxic agents. Continue Lasix drip Hyponatremia with excess ext racellular fluid volume 04/21/2015 06/02/2015 Overview: Likely hypervolemic hyponatremia. Na improved form 126 to 130 this am. Patient is already on torsemide, spironolactone and metolazone at home. Plan: - Continue to diurese as kidney function allows. Palpitations 12/24/2014 08/21/2015 Hypoxemia 07/28/2014 08/21/2015 Vocal cord paralysis 03/31/2014 015 CTEPH (chronic thromboemboli c pulmonary hypertension) 04/29/2013 06/02/2015 Overview: - Will continue home meds including Bosentan, Tadalafil and Treprostinil. - O2 requirements as needed (uses 2L NC at home at night). - Continue home O2 - Patient was seen by lung transplant team. Tests required include: Quantitative perfusion scan (done) Gastric emptying study, esophageal manometry and 24hr pH study (ordered) Dental consultation (will need to call ) Social Work (on board) Iron deficiency anemia 01/25/201304/11 Overview: Menstruating female with iron deficiency Cardiomegaly 01/25/2013 09/02/2015 Overview: -- RV enlargement due to PH Exertional dyspnea 01/25/2013 5 Mediastinal adenopathy 01/25/201308/21 Hilar adenopathy 01/25/2013 08/21/2015 Overview: Noted on imaging- mother with a history of Sarcoid Could be 2/2 to chronic VTE and pHTN Lung nodules 01/25/2013 09/02/2015 Overview: Noted on imaging Follow Anticoagulation management encounter 01/25/2013 01/26/2013 SUMMARY 01/24/2013 02/02/2013 Overview: This is a 17 year old female with no significant PMH other than migraine and minimal allergies who developed significant SOB within the past 2 months, this progressed to the point where she was unable to walk up 2 flights of stairs and had mild chest pressure with activty. This worsened on a recent trip to [place] where she was on a 6 hour plane ride leading to a near syncopal episode. She presented ot her PCP for fatigue and was found to have anemia, elevated WBC count and on echo a elevated RVSP and dilated RV. She was sent for CT at her local Ed where she was found to have 2 small PE's. Patient sent for further evaluation. At admission upon review of her Ct there is no PE noted, she does however have significant cardiomegaly, increase RVSP and right atrial dilatation, will need to work up cause of PAH PAH (pulmonary artery hypertension) 01/24/2013 08/21/2015 Overview: Found to have elevated RVSP on echo with RV dilatation. ? Sarcoid as she has a family hx as well as polyarthralgia and fatigue - now with hilar lymphadenopathy RHC revealing PA HTN. 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 as angio was suggestive of multiple PEs small and chronic Plan: Further Remodulin titration as an out-patient q weekly, now on 7.5 ng/kg/min PET scan for VALERIA in the chest complete 02/07 Night sweats 01/24/2013 08/21/2015 Overview: Unclear etiology- Awaiting further PAH workup and Rheum w/u is neg so far documented as of this encounter (statuses as of 05/02/2023) [facility] History of Past illness Narrative* Problem Noted Date Diagnosed Date Resolved Date Abnormality of gait 12/24/2015 04/11/20 17 Ascites 07/13/2015 08/21/2015 Overview: Abdominal distension 07/09 KUB: air in stomach, repeat on 07/11: no dilated loops of bowel 07/11: US abdomen + ascites 07/13 Paracentesis ~ 2L straw colored fluid A/P: Abdomen soft, distended. No c/o abd. fullness. Monitor. Seizure 06/22/2015 08/21/2015 Overview: 06/22/2015 0230 Sudden new onset seizures - with generalized rhythmic contractions of all extremities plus facial twitching. Treated lorazepam and midazolam. Stat head CT negative for bleed. No acute metabolic changes on ABG. Concern for withdrawal from opioids - had been on high dose fentanyl infusion for 3 weeks -infusion d'tabitha on 06/18/15. Neuro consulted and continuous EEG monitoring ordered. Cont vEEG showing mild diffuse encephalopathy but no epileptiform form activity. A/P:: No seizure activity since 06/22. Keppra discontinued per ALD. Abdominal distension 06/15/2015 015 Overview: TF held. KUB pending. Fever 06/08/2015 08/21/2015 Overview: S/p CT chest/abd 06/18, which showed RLL collapse, with findings suggestive of necrotic PNA, and scattered upper lobe opacities; moderate ascites, cholelithiasis and gallbladder sludging without cholecystitis. Remains afebrile. No leukocytosis. - Urine cx (06/07), neg; Bld cx (06/11) x2 - NGTD - One blood culture (06/06) grew lactobacillus - Bld/UA cx drawn (06/16) - neg - BAL cx (06/20): smear shows GPC in clusters - Bld cx (06/21) NGTD Plan: - Meropenem stopped on 06/22 - Cont PO Vancomycin through hospitalization - F/u BAL cx (06/20) - Smear currently shows GPC in clusters but no organisms on culture; in the setting of resurgence of fevers, restarted on IV Vanc on 06/18->. Continue Vancomycin oral Mild protein-calorie malnutrition 06/04/2015 04/11/2017 Overview: Nutrition following. Ice chips only per beside swallow evaluation. Advanced to popcicle and applesauce 07/19 A/P: Tolerating TF via corpak at goal. Continue TF at current rate, monitor labs. Speech evaluation today Ischemia of hand 06/01/2015 06/05/2015 Overview: Radial a line removed- good doppler signals Dexter ndiaye placed Heparin infusion for goal pTT 45-55. Ischemia of lower extremity 06/01/2015 06/08/2015 Overview: Left lower extremity ischemia, has regained DP/PT doppler signals, but calf muscles remains somewhat tense. A/P: CKs normalizing, will stop following CK levels at this time. Vascular surgery signing off, appreciate assistance. 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 Radial art line was in LUE. Art line removed and arterial duplex showed radial artery thrombosis with patent ulnar artery. Pt now with strong pulse in L radial artery. Thrombocytopenia 06/01/2015 06/08/2015 Overview: Required massive transfusion after OR, placed on VA ECMO. Likely consumptive coagulopathy, however PF4 antibody sent given recent initiation of heparin IV. A/P: -Appears to be resolving, platelets 98,000 today. Cardiac insufficiency follow ing cardiac surgery 05/30/2015 06/15/2015 Overview: Severe RV, arrived from OR on iflolan and Epi. iFlolan weaned off A/P: Off epi and iFlolan. Open chest wound 05/30/2015 06/11/2015 Overview: S/p Lung Tx A/P: Dressing intact, continue ATBX while chest is open. Possible closure today Volume overload 05/30/2015 09/02/2015 Overview: + fluid balance due to multiple transfusions and volume replacement for shock in the early post op period. A/P: - 1.9 L/24hr. Continue diuresis, monitor UOP and labs. Personal history of ECMO 05/30/201502/2015 Overview: VV ECMO on 05/30, Transitioned to VA ECMO 05/31. VA ECMO weaned 06/03, back on VV ECMO Decannulated on 06/15. Stress hyperglycemia 05/30/2015 015 Overview: S/P Lung Tx A/P: Stress hyperglycemia exacerbated by surgery and pressors. RHI infusion for glycemic control. Shock liver - hepatic insufficiency 05/30/2015 06/05/2015 Overview: Markedly elevated LFTs, persistent coagulopathy and bleeding despite near- continuous trasnfusion of blood products. Also recurrent hypoglycemia requiring D50 boluses and D10W infusion. A/P: LFTs downtrending. 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 Progressively hypoxemic after arrival to ICU despite maximal MV support with lung protective ventilation and inhaled epoprostenol. NMB, inverted I:E ratio, high PEEP, low Vt with permissive hypercapnia only helped transiently. VV ECMO placed. Optimize vent settings, BPH, pain control, VV ECMO. Worsening lung compliance d/t hypervolemia (pulm edema) and/ or PGD. Continues on iFlolan. Switched to VA ECMO but maintaining very low Vt plus high PEEP. 06/03 Washout with VA ECMO weaned. VV ECMO initiated. S/p ECMO decannulation 06/15. S/p trach 06/19. Tolerated ~>11hrs on 07/06, but CXR with increased atelectasis following. A/P: CXR with bilateral opacities. Tolerating TC ATC. Continue TC, BPH, pain control, OOB. Consumption coagulopathy 05/29/2015 Overview: S/P Lung Transplant. Severe coagulopathic bleeding intraop and immediately postop. Received multiple blood products - plts, cryoppt, FFP and prbcs. Also rewarming for postop hypothermia. A/P: 4u pRBC and 2u platelets distribution coordinator to OR. PF4 antibody negative Chest remains open. Hypotension 05/29/2015 06/15/2015 Overview: Post Lung Tx. Severely vasoplegic intraop and immediately postop requiring multiple inopressors. Received methylene blue bolus intraop. Arrived ICU on epi, norepi, vasopressin and phenylephrine was added in ICU to maintain MAP >60mmHg. Wean for MAP 65 or greater. A/P: Off epi. Maintain MAPs 65-75. Acute blood loss anemia 05/29/201508/12 Overview: H/H remains low but stable. 07/10: H/H 6.6/--transfused 1 unit 07/11: Transfused for 6.8.3 A/P: Monitor H/H, transfuse prn. Acute postoperative pain 05/29/2015 Overview: Post op lung Tx A/P: Dilaudid and acetaminophen prn for pain Hypothermia following anesthesia 05/29/2015 06/02/2015 Overview: 05/30/2015 Rewarming with forced warm air blanket Lactic acidosis 05/29/2015 06/03/2015 Overview: S/P Lung Tx A/P: Resolved with lactate levels of 1.2 today Right heart failure, NYHA class 4 04/27/2015 08/21/2015 Right heart failure due to p ulmonary hypertension 04/21/2015 06/02/2015 Overview: Patient with right heart failure stigmata (JVD, ascites and lower extremity edema). BP has been on the lower side. Oxygen requirement increased to 3L from 2 L Plan: - Will get repeat Echo with bubble study (last one from January 2015). - Place a PA cath and continue to diurese while monitoring her right heart pressures. - Will need IV lasix-received 80 IV lasix on 04/20 and 100 IV lasix on 04/21 - Continue spironolactone. JAMES (acute kidney injury) 04/21/2015 Overview: Baseline Cr 0.9 (04/09) -> Cr up to 2.4. A/P: JAMES is likely 2/2 ATN given hypotension and hemorrhage. Balance volume repletion with diuresis --> Cr continues to downtrend 1.92 -->1.37 today. Nephrology following - Maintain MAP 65 or greater, avoid nephrotoxic agents. Continue Lasix drip Hyponatremia with excess ext racellular fluid volume 04/21/2015 06/02/2015 Overview: Likely hypervolemic hyponatremia. Na improved form 126 to 130 this am. Patient is already on torsemide, spironolactone and metolazone at home. Plan: - Continue to diurese as kidney function allows. Palpitations 12/24/2014 08/21/2015 Hypoxemia 07/28/2014 08/21/2015 Vocal cord paralysis 03/31/2014 015 CTEPH (chronic thromboemboli c pulmonary hypertension) 04/29/2013 06/02/2015 Overview: - Will continue home meds including Bosentan, Tadalafil and Treprostinil. - O2 requirements as needed (uses 2L NC at home at night). - Continue home O2 - Patient was seen by lung transplant team. Tests required include: Quantitative perfusion scan (done) Gastric emptying study, esophageal manometry and 24hr pH study (ordered) Dental consultation (will need to call ) Social Work (on board) Iron deficiency anemia 01/25/201304/11 Overview: Menstruating female with iron deficiency Cardiomegaly 01/25/2013 09/02/2015 Overview: -- RV enlargement due to PH Exertional dyspnea 01/25/2013 5 Mediastinal adenopathy 01/25/201308/21 Hilar adenopathy 01/25/2013 08/21/2015 Overview: Noted on imaging- mother with a history of Sarcoid Could be 2/2 to chronic VTE and pHTN Lung nodules 01/25/2013 09/02/2015 Overview: Noted on imaging Follow Anticoagulation management encounter 01/25/2013 01/26/2013 SUMMARY 01/24/2013 02/02/2013 Overview: This is a 17 year old female with no significant PMH other than migraine and minimal allergies who developed significant SOB within the past 2 months, this progressed to the point where she was unable to walk up 2 flights of stairs and had mild chest pressure with activty. This worsened on a recent trip to [place] where she was on a 6 hour plane ride leading to a near syncopal episode. She presented ot her PCP for fatigue and was found to have anemia, elevated WBC count and on echo a elevated RVSP and dilated RV. She was sent for CT at her local Ed where she was found to have 2 small PE's. Patient sent for further evaluation. At admission upon review of her Ct there is no PE noted, she does however have significant cardiomegaly, increase RVSP and right atrial dilatation, will need to work up cause of PAH PAH (pulmonary artery hypertension) 01/24/2013 08/21/2015 Overview: Found to have elevated RVSP on echo with RV dilatation. ? Sarcoid as she has a family hx as well as polyarthralgia and fatigue - now with hilar lymphadenopathy RHC revealing PA HTN. 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 as angio was suggestive of multiple PEs small and chronic Plan: Further Remodulin titration as an out-patient q weekly, now on 7.5 ng/kg/min PET scan for VALERIA in the chest complete 02/07 Night sweats 01/24/2013 08/21/2015 Overview: Unclear etiology- Awaiting further PAH workup and Rheum w/u is neg so far documented as of this encounter (statuses as of 05/03/2023) [facility]04-14-2016 History of Past illness Narrative* Problem Noted Date Diagnosed Date Resolved Date Abnormality of gait 12/24/2015 04/11/20 17 Ascites 07/13/2015 08/21/2015 Overview: Abdominal distension 07/09 KUB: air in stomach, repeat on 07/11: no dilated loops of bowel 07/11: US abdomen + ascites 07/13 Paracentesis ~ 2L straw colored fluid A/P: Abdomen soft, distended. No c/o abd. fullness. Monitor. Seizure 06/22/2015 08/21/2015 Overview: 06/22/2015 0230 Sudden new onset seizures - with generalized rhythmic contractions of all extremities plus facial twitching. Treated lorazepam and midazolam. Stat head CT negative for bleed. No acute metabolic changes on ABG. Concern for withdrawal from opioids - had been on high dose fentanyl infusion for 3 weeks -infusion d'tabtiha on 06/18/15. Neuro consulted and continuous EEG monitoring ordered. Cont vEEG showing mild diffuse encephalopathy but no epileptiform form activity. A/P:: No seizure activity since 06/22. Keppra discontinued per ALD. Abdominal distension 06/15/2015 015 Overview: TF held. KUB pending. Fever 06/08/2015 08/21/2015 Overview: S/p CT chest/abd 06/18, which showed RLL collapse, with findings suggestive of necrotic PNA, and scattered upper lobe opacities; moderate ascites, cholelithiasis and gallbladder sludging without cholecystitis. Remains afebrile. No leukocytosis. - Urine cx (06/07), neg; Bld cx (06/11) x2 - NGTD - One blood culture (06/06) grew lactobacillus - Bld/UA cx drawn (06/16) - neg - BAL cx (06/20): smear shows GPC in clusters - Bld cx (06/21) NGTD Plan: - Meropenem stopped on 06/22 - Cont PO Vancomycin through hospitalization - F/u BAL cx (06/20) - Smear currently shows GPC in clusters but no organisms on culture; in the setting of resurgence of fevers, restarted on IV Vanc on 06/18->. Continue Vancomycin oral Mild protein-calorie malnutrition 06/04/2015 04/11/2017 Overview: Nutrition following. Ice chips only per beside swallow evaluation. Advanced to popcicle and applesauce 07/19 A/P: Tolerating TF via corpak at goal. Continue TF at current rate, monitor labs. Speech evaluation today Ischemia of hand 06/01/2015 06/05/2015 Overview: Radial a line removed- good doppler signals Dexter ndiaye placed Heparin infusion for goal pTT 45-55. Ischemia of lower extremity 06/01/2015 06/08/2015 Overview: Left lower extremity ischemia, has regained DP/PT doppler signals, but calf muscles remains somewhat tense. A/P: CKs normalizing, will stop following CK levels at this time. Vascular surgery signing off, appreciate assistance. 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 Radial art line was in LUE. Art line removed and arterial duplex showed radial artery thrombosis with patent ulnar artery. Pt now with strong pulse in L radial artery. Thrombocytopenia 06/01/2015 06/08/2015 Overview: Required massive transfusion after OR, placed on VA ECMO. Likely consumptive coagulopathy, however PF4 antibody sent given recent initiation of heparin IV. A/P: -Appears to be resolving, platelets 98,000 today. Cardiac insufficiency follow ing cardiac surgery 05/30/2015 06/15/2015 Overview: Severe RV, arrived from OR on iflolan and Epi. iFlolan weaned off A/P: Off epi and iFlolan. Open chest wound 05/30/2015 06/11/2015 Overview: S/p Lung Tx A/P: Dressing intact, continue ATBX while chest is open. Possible closure today Volume overload 05/30/2015 09/02/2015 Overview: + fluid balance due to multiple transfusions and volume replacement for shock in the early post op period. A/P: - 1.9 L/24hr. Continue diuresis, monitor UOP and labs. Personal history of ECMO 05/30/201502/2015 Overview: VV ECMO on 05/30, Transitioned to VA ECMO 05/31. VA ECMO weaned 06/03, back on VV ECMO Decannulated on 06/15. Stress hyperglycemia 05/30/2015 015 Overview: S/P Lung Tx A/P: Stress hyperglycemia exacerbated by surgery and pressors. RHI infusion for glycemic control. Shock liver - hepatic insufficiency 05/30/2015 06/05/2015 Overview: Markedly elevated LFTs, persistent coagulopathy and bleeding despite near- continuous trasnfusion of blood products. Also recurrent hypoglycemia requiring D50 boluses and D10W infusion. A/P: LFTs downtrending. 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 Progressively hypoxemic after arrival to ICU despite maximal MV support with lung protective ventilation and inhaled epoprostenol. NMB, inverted I:E ratio, high PEEP, low Vt with permissive hypercapnia only helped transiently. VV ECMO placed. Optimize vent settings, BPH, pain control, VV ECMO. Worsening lung compliance d/t hypervolemia (pulm edema) and/ or PGD. Continues on iFlolan. Switched to VA ECMO but maintaining very low Vt plus high PEEP. 06/03 Washout with VA ECMO weaned. VV ECMO initiated. S/p ECMO decannulation 06/15. S/p trach 06/19. Tolerated ~>11hrs on 07/06, but CXR with increased atelectasis following. A/P: CXR with bilateral opacities. Tolerating TC ATC. Continue TC, BPH, pain control, OOB. Consumption coagulopathy 05/29/2015 Overview: S/P Lung Transplant. Severe coagulopathic bleeding intraop and immediately postop. Received multiple blood products - plts, cryoppt, FFP and prbcs. Also rewarming for postop hypothermia. A/P: 4u pRBC and 2u platelets distribution coordinator to OR. PF4 antibody negative Chest remains open. Hypotension 05/29/2015 06/15/2015 Overview: Post Lung Tx. Severely vasoplegic intraop and immediately postop requiring multiple inopressors. Received methylene blue bolus intraop. Arrived ICU on epi, norepi, vasopressin and phenylephrine was added in ICU to maintain MAP >60mmHg. Wean for MAP 65 or greater. A/P: Off epi. Maintain MAPs 65-75. Acute blood loss anemia 05/29/201508/12 Overview: H/H remains low but stable. 07/10: H/H 6.6--transfused 1 unit 07/11: Transfused for 6.8.3 A/P: Monitor H/H, transfuse prn. Acute postoperative pain 05/29/2015 Overview: Post op lung Tx A/P: Dilaudid and acetaminophen prn for pain Hypothermia following anesthesia 05/29/2015 06/02/2015 Overview: 05/30/2015 Rewarming with forced warm air blanket Lactic acidosis 05/29/2015 06/03/2015 Overview: S/P Lung Tx A/P: Resolved with lactate levels of 1.2 today Right heart failure, NYHA class 4 04/27/2015 08/21/2015 Right heart failure due to p ulmonary hypertension 04/21/2015 06/02/2015 Overview: Patient with right heart failure stigmata (JVD, ascites and lower extremity edema). BP has been on the lower side. Oxygen requirement increased to 3L from 2 L Plan: - Will get repeat Echo with bubble study (last one from January 2015). - Place a PA cath and continue to diurese while monitoring her right heart pressures. - Will need IV lasix-received 80 IV lasix on 04/20 and 100 IV lasix on 04/21 - Continue spironolactone. JAMES (acute kidney injury) 04/21/2015 Overview: Baseline Cr 0.9 (04/09) -> Cr up to 2.4. A/P: JAMES is likely 2/2 ATN given hypotension and hemorrhage. Balance volume repletion with diuresis --> Cr continues to downtrend 1.92 -->1.37 today. Nephrology following - Maintain MAP 65 or greater, avoid nephrotoxic agents. Continue Lasix drip Hyponatremia with excess ext racellular fluid volume 04/21/2015 06/02/2015 Overview: Likely hypervolemic hyponatremia. Na improved form 126 to 130 this am. Patient is already on torsemide, spironolactone and metolazone at home. Plan: - Continue to diurese as kidney function allows. Palpitations 12/24/2014 08/21/2015 Hypoxemia 07/28/2014 08/21/2015 Vocal cord paralysis 03/31/2014 015 CTEPH (chronic thromboemboli c pulmonary hypertension) 04/29/2013 06/02/2015 Overview: - Will continue home meds including Bosentan, Tadalafil and Treprostinil. - O2 requirements as needed (uses 2L NC at home at night). - Continue home O2 - Patient was seen by lung transplant team. Tests required include: Quantitative perfusion scan (done) Gastric emptying study, esophageal manometry and 24hr pH study (ordered) Dental consultation (will need to call ) Social Work (on board) Iron deficiency anemia 01/25/201304/11 Overview: Menstruating female with iron deficiency Cardiomegaly 01/25/2013 09/02/2015 Overview: -- RV enlargement due to PH Exertional dyspnea 01/25/2013 5 Mediastinal adenopathy 01/25/201308/21 Hilar adenopathy 01/25/2013 08/21/2015 Overview: Noted on imaging- mother with a history of Sarcoid Could be 2/2 to chronic VTE and pHTN Lung nodules 01/25/2013 09/02/2015 Overview: Noted on imaging Follow Anticoagulation management encounter 01/25/2013 01/26/2013 SUMMARY 01/24/2013 02/02/2013 Overview: This is a 17 year old female with no significant PMH other than migraine and minimal allergies who developed significant SOB within the past 2 months, this progressed to the point where she was unable to walk up 2 flights of stairs and had mild chest pressure with activty. This worsened on a recent trip to [place] where she was on a 6 hour plane ride leading to a near syncopal episode. She presented ot her PCP for fatigue and was found to have anemia, elevated WBC count and on echo a elevated RVSP and dilated RV. She was sent for CT at her local Ed where she was found to have 2 small PE's. Patient sent for further evaluation. At admission upon review of her Ct there is no PE noted, she does however have significant cardiomegaly, increase RVSP and right atrial dilatation, will need to work up cause of PAH PAH (pulmonary artery hypertension) 01/24/2013 08/21/2015 Overview: Found to have elevated RVSP on echo with RV dilatation. ? Sarcoid as she has a family hx as well as polyarthralgia and fatigue - now with hilar lymphadenopathy RHC revealing PA HTN. 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 as angio was suggestive of multiple PEs small and chronic Plan: Further Remodulin titration as an out-patient q weekly, now on 7.5 ng/kg/min PET scan for VALERIA in the chest complete 02/07 Night sweats 01/24/2013 08/21/2015 Overview: Unclear etiology- Awaiting further PAH workup and Rheum w/u is neg so far documented as of this encounter (statuses as of 05/03/2023) [facility]04-[facility]2016 History of Past illness Narrative* Problem Noted Date Diagnosed Date Resolved Date Abnormality of gait 12/24/2015 04/11/20 17 Ascites 07/13/2015 08/21/2015 Overview: Abdominal distension 07/09 KUB: air in stomach, repeat on 07/11: no dilated loops of bowel 07/11: US abdomen + ascites 07/13 Paracentesis ~ 2L straw colored fluid A/P: Abdomen soft, distended. No c/o abd. fullness. Monitor. Seizure 06/22/2015 08/21/2015 Overview: 06/22/2015 0230 Sudden new onset seizures - with generalized rhythmic contractions of all extremities plus facial twitching. Treated lorazepam and midazolam. Stat head CT negative for bleed. No acute metabolic changes on ABG. Concern for withdrawal from opioids - had been on high dose fentanyl infusion for 3 weeks -infusion d'tabitha on 06/18/15. Neuro consulted and continuous EEG monitoring ordered. Cont vEEG showing mild diffuse encephalopathy but no epileptiform form activity. A/P:: No seizure activity since 06/22. Keppra discontinued per ALD. Abdominal distension 06/15/2015 015 Overview: TF held. KUB pending. Fever 06/08/2015 08/21/2015 Overview: S/p CT chest/abd 06/18, which showed RLL collapse, with findings suggestive of necrotic PNA, and scattered upper lobe opacities; moderate ascites, cholelithiasis and gallbladder sludging without cholecystitis. Remains afebrile. No leukocytosis. - Urine cx (06/07), neg; Bld cx (06/11) x2 - NGTD - One blood culture (06/06) grew lactobacillus - Bld/UA cx drawn (06/16) - neg - BAL cx (06/20): smear shows GPC in clusters - Bld cx (06/21) NGTD Plan: - Meropenem stopped on 06/22 - Cont PO Vancomycin through hospitalization - F/u BAL cx (06/20) - Smear currently shows GPC in clusters but no organisms on culture; in the setting of resurgence of fevers, restarted on IV Vanc on 06/18->. Continue Vancomycin oral Mild protein-calorie malnutrition 06/04/2015 04/11/2017 Overview: Nutrition following. Ice chips only per beside swallow evaluation. Advanced to popcicle and applesauce 07/19 A/P: Tolerating TF via corpak at goal. Continue TF at current rate, monitor labs. Speech evaluation today Ischemia of hand 06/01/2015 06/05/2015 Overview: Radial a line removed- good doppler signals Dexter ndiaye placed Heparin infusion for goal pTT 45-55. Ischemia of lower extremity 06/01/2015 06/08/2015 Overview: Left lower extremity ischemia, has regained DP/PT doppler signals, but calf muscles remains somewhat tense. A/P: CKs normalizing, will stop following CK levels at this time. Vascular surgery signing off, appreciate assistance. 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 Radial art line was in LUE. Art line removed and arterial duplex showed radial artery thrombosis with patent ulnar artery. Pt now with strong pulse in L radial artery. Thrombocytopenia 06/01/2015 06/08/2015 Overview: Required massive transfusion after OR, placed on VA ECMO. Likely consumptive coagulopathy, however PF4 antibody sent given recent initiation of heparin IV. A/P: -Appears to be resolving, platelets 98,000 today. Cardiac insufficiency follow ing cardiac surgery 05/30/2015 06/15/2015 Overview: Severe RV, arrived from OR on iflolan and Epi. iFlolan weaned off A/P: Off epi and iFlolan. Open chest wound 05/30/2015 06/11/2015 Overview: S/p Lung Tx A/P: Dressing intact, continue ATBX while chest is open. Possible closure today Volume overload 05/30/2015 09/02/2015 Overview: + fluid balance due to multiple transfusions and volume replacement for shock in the early post op period. A/P: - 1.9 L/24hr. Continue diuresis, monitor UOP and labs. Personal history of ECMO 05/30/201502/2015 Overview: VV ECMO on 05/30, Transitioned to VA ECMO 05/31. VA ECMO weaned 06/03, back on VV ECMO Decannulated on 06/15. Stress hyperglycemia 05/30/2015 015 Overview: S/P Lung Tx A/P: Stress hyperglycemia exacerbated by surgery and pressors. RHI infusion for glycemic control. Shock liver - hepatic insufficiency 05/30/2015 06/05/2015 Overview: Markedly elevated LFTs, persistent coagulopathy and bleeding despite near- continuous trasnfusion of blood products. Also recurrent hypoglycemia requiring D50 boluses and D10W infusion. A/P: LFTs downtrending. 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 Progressively hypoxemic after arrival to ICU despite maximal MV support with lung protective ventilation and inhaled epoprostenol. NMB, inverted I:E ratio, high PEEP, low Vt with permissive hypercapnia only helped transiently. VV ECMO placed. Optimize vent settings, BPH, pain control, VV ECMO. Worsening lung compliance d/t hypervolemia (pulm edema) and/ or PGD. Continues on iFlolan. Switched to VA ECMO but maintaining very low Vt plus high PEEP. 06/03 Washout with VA ECMO weaned. VV ECMO initiated. S/p ECMO decannulation 06/15. S/p trach 06/19. Tolerated ~>11hrs on 07/06, but CXR with increased atelectasis following. A/P: CXR with bilateral opacities. Tolerating TC ATC. Continue TC, BPH, pain control, OOB. Consumption coagulopathy 05/29/2015 Overview: S/P Lung Transplant. Severe coagulopathic bleeding intraop and immediately postop. Received multiple blood products - plts, cryoppt, FFP and prbcs. Also rewarming for postop hypothermia. A/P: 4u pRBC and 2u platelets distribution coordinator to OR. PF4 antibody negative Chest remains open. Hypotension 05/29/2015 06/15/2015 Overview: Post Lung Tx. Severely vasoplegic intraop and immediately postop requiring multiple inopressors. Received methylene blue bolus intraop. Arrived ICU on epi, norepi, vasopressin and phenylephrine was added in ICU to maintain MAP >60mmHg. Wean for MAP 65 or greater. A/P: Off epi. Maintain MAPs 65-75. Acute blood loss anemia 05/29/201508/12 Overview: H/H remains low but stable. 07/10: H/H 6.6/--transfused 1 unit 07/11: Transfused for 6.8.3 A/P: Monitor H/H, transfuse prn. Acute postoperative pain 05/29/2015 Overview: Post op lung Tx A/P: Dilaudid and acetaminophen prn for pain Hypothermia following anesthesia 05/29/2015 06/02/2015 Overview: 05/30/2015 Rewarming with forced warm air blanket Lactic acidosis 05/29/2015 06/03/2015 Overview: S/P Lung Tx A/P: Resolved with lactate levels of 1.2 today Right heart failure, NYHA class 4 04/27/2015 08/21/2015 Right heart failure due to p ulmonary hypertension 04/21/2015 06/02/2015 Overview: Patient with right heart failure stigmata (JVD, ascites and lower extremity edema). BP has been on the lower side. Oxygen requirement increased to 3L from 2 L Plan: - Will get repeat Echo with bubble study (last one from January 2015). - Place a PA cath and continue to diurese while monitoring her right heart pressures. - Will need IV lasix-received 80 IV lasix on 04/20 and 100 IV lasix on 04/21 - Continue spironolactone. JAMES (acute kidney injury) 04/21/2015 Overview: Baseline Cr 0.9 (04/09) -> Cr up to 2.4. A/P: JAMES is likely 2/2 ATN given hypotension and hemorrhage. Balance volume repletion with diuresis --> Cr continues to downtrend 1.92 -->1.37 today. Nephrology following - Maintain MAP 65 or greater, avoid nephrotoxic agents. Continue Lasix drip Hyponatremia with excess ext racellular fluid volume 04/21/2015 06/02/2015 Overview: Likely hypervolemic hyponatremia. Na improved form 126 to 130 this am. Patient is already on torsemide, spironolactone and metolazone at home. Plan: - Continue to diurese as kidney function allows. Palpitations 12/24/2014 08/21/2015 Hypoxemia 07/28/2014 08/21/2015 Vocal cord paralysis 03/31/2014 015 CTEPH (chronic thromboemboli c pulmonary hypertension) 04/29/2013 06/02/2015 Overview: - Will continue home meds including Bosentan, Tadalafil and Treprostinil. - O2 requirements as needed (uses 2L NC at home at night). - Continue home O2 - Patient was seen by lung transplant team. Tests required include: Quantitative perfusion scan (done) Gastric emptying study, esophageal manometry and 24hr pH study (ordered) Dental consultation (will need to call ) Social Work (on board) Iron deficiency anemia 01/25/201304/11 Overview: Menstruating female with iron deficiency Cardiomegaly 01/25/2013 09/02/2015 Overview: -- RV enlargement due to PH Exertional dyspnea 01/25/2013 5 Mediastinal adenopathy 01/25/201308/21 Hilar adenopathy 01/25/2013 08/21/2015 Overview: Noted on imaging- mother with a history of Sarcoid Could be 2/2 to chronic VTE and pHTN Lung nodules 01/25/2013 09/02/2015 Overview: Noted on imaging Follow Anticoagulation management encounter 01/25/2013 01/26/2013 SUMMARY 01/24/2013 02/02/2013 Overview: This is a 17 year old female with no significant PMH other than migraine and minimal allergies who developed significant SOB within the past 2 months, this progressed to the point where she was unable to walk up 2 flights of stairs and had mild chest pressure with activty. This worsened on a recent trip to [place] where she was on a 6 hour plane ride leading to a near syncopal episode. She presented ot her PCP for fatigue and was found to have anemia, elevated WBC count and on echo a elevated RVSP and dilated RV. She was sent for CT at her local Ed where she was found to have 2 small PE's. Patient sent for further evaluation. At admission upon review of her Ct there is no PE noted, she does however have significant cardiomegaly, increase RVSP and right atrial dilatation, will need to work up cause of PAH PAH (pulmonary artery hypertension) 01/24/2013 08/21/2015 Overview: Found to have elevated RVSP on echo with RV dilatation. ? Sarcoid as she has a family hx as well as polyarthralgia and fatigue - now with hilar lymphadenopathy RHC revealing PA HTN. 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 as angio was suggestive of multiple PEs small and chronic Plan: Further Remodulin titration as an out-patient q weekly, now on 7.5 ng/kg/min PET scan for VALERIA in the chest complete 02/07 Night sweats 01/24/2013 08/21/2015 Overview: Unclear etiology- Awaiting further PAH workup and Rheum w/u is neg so far documented as of this encounter (statuses as of 05/04/2023) [facility] History of Past illness Narrative* Problem Noted Date Diagnosed Date Resolved Date Abnormality of gait 12/24/2015 04/11/20 17 Ascites 07/13/2015 08/21/2015 Overview: Abdominal distension 07/09 KUB: air in stomach, repeat on 07/11: no dilated loops of bowel 07/11: US abdomen + ascites 07/13 Paracentesis ~ 2L straw colored fluid A/P: Abdomen soft, distended. No c/o abd. fullness. Monitor. Seizure 06/22/2015 08/21/2015 Overview: 06/22/2015 0230 Sudden new onset seizures - with generalized rhythmic contractions of all extremities plus facial twitching. Treated lorazepam and midazolam. Stat head CT negative for bleed. No acute metabolic changes on ABG. Concern for withdrawal from opioids - had been on high dose fentanyl infusion for 3 weeks -infusion d'tabitha on 06/18/15. Neuro consulted and continuous EEG monitoring ordered. Cont vEEG showing mild diffuse encephalopathy but no epileptiform form activity. A/P:: No seizure activity since 06/22. Keppra discontinued per ALD. Abdominal distension 06/15/2015 015 Overview: TF held. KUB pending. Fever 06/08/2015 08/21/2015 Overview: S/p CT chest/abd 06/18, which showed RLL collapse, with findings suggestive of necrotic PNA, and scattered upper lobe opacities; moderate ascites, cholelithiasis and gallbladder sludging without cholecystitis. Remains afebrile. No leukocytosis. - Urine cx (06/07), neg; Bld cx (06/11) x2 - NGTD - One blood culture (06/06) grew lactobacillus - Bld/UA cx drawn (06/16) - neg - BAL cx (06/20): smear shows GPC in clusters - Bld cx (06/21) NGTD Plan: - Meropenem stopped on 06/22 - Cont PO Vancomycin through hospitalization - F/u BAL cx (06/20) - Smear currently shows GPC in clusters but no organisms on culture; in the setting of resurgence of fevers, restarted on IV Vanc on 06/18->. Continue Vancomycin oral Mild protein-calorie malnutrition 06/04/2015 04/11/2017 Overview: Nutrition following. Ice chips only per beside swallow evaluation. Advanced to popcicle and applesauce 07/19 A/P: Tolerating TF via corpak at goal. Continue TF at current rate, monitor labs. Speech evaluation today Ischemia of hand 06/01/2015 06/05/2015 Overview: Radial a line removed- good doppler signals Rooke mittens placed Heparin infusion for goal pTT 45-55. Ischemia of lower extremity 06/01/2015 06/08/2015 Overview: Left lower extremity ischemia, has regained DP/PT doppler signals, but calf muscles remains somewhat tense. A/P: CKs normalizing, will stop following CK levels at this time. Vascular surgery signing off, appreciate assistance. 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 Radial art line was in LUE. Art line removed and arterial duplex showed radial artery thrombosis with patent ulnar artery. Pt now with strong pulse in L radial artery. Thrombocytopenia 06/01/2015 06/08/2015 Overview: Required massive transfusion after OR, placed on VA ECMO. Likely consumptive coagulopathy, however PF4 antibody sent given recent initiation of heparin IV. A/P: -Appears to be resolving, platelets 98,000 today. Cardiac insufficiency follow ing cardiac surgery 05/30/2015 06/15/2015 Overview: Severe RV, arrived from OR on iflolan and Epi. iFlolan weaned off A/P: Off epi and iFlolan. Open chest wound 05/30/2015 06/11/2015 Overview: S/p Lung Tx A/P: Dressing intact, continue ATBX while chest is open. Possible closure today Volume overload 05/30/2015 09/02/2015 Overview: + fluid balance due to multiple transfusions and volume replacement for shock in the early post op period. A/P: - 1.9 L/24hr. Continue diuresis, monitor UOP and labs. Personal history of ECMO 05/30/201502/2015 Overview: VV ECMO on 05/30, Transitioned to [facility] ECMO 05/31. VA ECMO weaned 06/03, back on VV ECMO Decannulated on 06/15. Stress hyperglycemia 05/30/2015 015 Overview: S/P Lung Tx A/P: Stress hyperglycemia exacerbated by surgery and pressors. RHI infusion for glycemic control. Shock liver - hepatic insufficiency 05/30/2015 06/05/2015 Overview: Markedly elevated LFTs, persistent coagulopathy and bleeding despite near- continuous trasnfusion of blood products. Also recurrent hypoglycemia requiring D50 boluses and D10W infusion. A/P: LFTs downtrending. 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 Progressively hypoxemic after arrival to ICU despite maximal MV support with lung protective ventilation and inhaled epoprostenol. NMB, inverted I:E ratio, high PEEP, low Vt with permissive hypercapnia only helped transiently. VV ECMO placed. Optimize vent settings, BPH, pain control, VV ECMO. Worsening lung compliance d/t hypervolemia (pulm edema) and/ or PGD. Continues on iFlolan. Switched to VA ECMO but maintaining very low Vt plus high PEEP. 06/03 Washout with VA ECMO weaned. VV ECMO initiated. S/p ECMO decannulation 06/15. S/p trach 06/19. Tolerated ~>11hrs on 07/06, but CXR with increased atelectasis following. A/P: CXR with bilateral opacities. Tolerating TC ATC. Continue TC, BPH, pain control, OOB. Consumption coagulopathy 05/29/2015 Overview: S/P Lung Transplant. Severe coagulopathic bleeding intraop and immediately postop. Received multiple blood products - plts, cryoppt, FFP and prbcs. Also rewarming for postop hypothermia. A/P: 4u pRBC and 2u platelets distribution coordinator to OR. PF4 antibody negative Chest remains open. Hypotension 05/29/2015 06/15/2015 Overview: Post Lung Tx. Severely vasoplegic intraop and immediately postop requiring multiple inopressors. Received methylene blue bolus intraop. Arrived ICU on epi, norepi, vasopressin and phenylephrine was added in ICU to maintain MAP >60mmHg. Wean for MAP 65 or greater. A/P: Off epi. Maintain MAPs 65-75. Acute blood loss anemia 05/29/201508/12 Overview: H/H remains low but stable. 07/10: H/H 6.6/21--transfused 1 unit 07/11: Transfused for 6.8/21.3 A/P: Monitor H/H, transfuse prn. Acute postoperative pain 05/29/2015 Overview: Post op lung Tx A/P: Dilaudid and acetaminophen prn for pain Hypothermia following anesthesia 05/29/2015 06/02/2015 Overview: 05/30/2015 Rewarming with forced warm air blanket Lactic acidosis 05/29/2015 06/03/2015 Overview: S/P Lung Tx A/P: Resolved with lactate levels of 1.2 today Right heart failure, NYHA class 4 04/27/2015 08/21/2015 Right heart failure due to p ulmonary hypertension 04/21/2015 06/02/2015 Overview: Patient with right heart failure stigmata (JVD, ascites and lower extremity edema). BP has been on the lower side. Oxygen requirement increased to 3L from 2 L Plan: - Will get repeat Echo with bubble study (last one from January 2015). - Place a PA cath and continue to diurese while monitoring her right heart pressures. - Will need IV lasix-received 80 IV lasix on 04/20 and 100 IV lasix on 04/21 - Continue spironolactone. JAMES (acute kidney injury) 04/21/2015 Overview: Baseline Cr 0.9 (04/09) -> Cr up to 2.4. A/P: JAMES is likely 2/2 ATN given hypotension and hemorrhage. Balance volume repletion with diuresis --> Cr continues to downtrend 1.92 -->1.37 today. Nephrology following - Maintain MAP 65 or greater, avoid nephrotoxic agents. Continue Lasix drip Hyponatremia with excess ext racellular fluid volume 04/21/2015 06/02/2015 Overview: Likely hypervolemic hyponatremia. Na improved form 126 to 130 this am. Patient is already on torsemide, spironolactone and metolazone at home. Plan: - Continue to diurese as kidney function allows. Palpitations 12/24/2014 08/21/2015 Hypoxemia 07/28/2014 08/21/2015 Vocal cord paralysis 03/31/2014 015 CTEPH (chronic thromboemboli c pulmonary hypertension) 04/29/2013 06/02/2015 Overview: - Will continue home meds including Bosentan, Tadalafil and Treprostinil. - O2 requirements as needed (uses 2L NC at home at night). - Continue home O2 - Patient was seen by lung transplant team. Tests required include: Quantitative perfusion scan (done) Gastric emptying study, esophageal manometry and 24hr pH study (ordered) Dental consultation (will need to call ) Social Work (on board) Iron deficiency anemia 01/25/201304/11 Overview: Menstruating female with iron deficiency Cardiomegaly 01/25/2013 09/02/2015 Overview: -- RV enlargement due to PH Exertional dyspnea 01/25/2013 5 Mediastinal adenopathy 01/25/201308/21 Hilar adenopathy 01/25/2013 08/21/2015 Overview: Noted on imaging- mother with a history of Sarcoid Could be 2/2 to chronic VTE and pHTN Lung nodules 01/25/2013 09/02/2015 Overview: Noted on imaging Follow Anticoagulation management encounter 01/25/2013 01/26/2013 SUMMARY 01/24/2013 02/02/2013 Overview: This is a 17 year old female with no significant PMH other than migraine and minimal allergies who developed significant SOB within the past 2 months, this progressed to the point where she was unable to walk up 2 flights of stairs and had mild chest pressure with activty. This worsened on a recent trip to [place] where she was on a 6 hour plane ride leading to a near syncopal episode. She presented ot her PCP for fatigue and was found to have anemia, elevated WBC count and on echo a elevated RVSP and dilated RV. She was sent for CT at her local Ed where she was found to have 2 small PE's. Patient sent for further evaluation. At admission upon review of her Ct there is no PE noted, she does however have significant cardiomegaly, increase RVSP and right atrial dilatation, will need to work up cause of PAH PAH (pulmonary artery hypertension) 01/24/2013 08/21/2015 Overview: Found to have elevated RVSP on echo with RV dilatation. ? Sarcoid as she has a family hx as well as polyarthralgia and fatigue - now with hilar lymphadenopathy RHC revealing PA HTN. 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 as angio was suggestive of multiple PEs small and chronic Plan: Further Remodulin titration as an out-patient q weekly, now on 7.5 ng/kg/min PET scan for VALERIA in the chest complete 02/07 Night sweats 01/24/2013 08/21/2015 Overview: Unclear etiology- Awaiting further PAH workup and Rheum w/u is neg so far documented as of this encounter (statuses as of 05/10/2023) [facility] History of Past illness Narrative* Problem Noted Date Diagnosed Date Resolved Date Abnormality of gait 12/24/2015 04/11/20 17 Ascites 07/13/2015 08/21/2015 Overview: Abdominal distension 07/09 KUB: air in stomach, repeat on 07/11: no dilated loops of bowel 07/11: US abdomen + ascites 07/13 Paracentesis ~ 2L straw colored fluid A/P: Abdomen soft, distended. No c/o abd. fullness. Monitor. Seizure 06/22/2015 08/21/2015 Overview: 06/22/2015 0230 Sudden new onset seizures - with generalized rhythmic contractions of all extremities plus facial twitching. Treated lorazepam and midazolam. Stat head CT negative for bleed. No acute metabolic changes on ABG. Concern for withdrawal from opioids - had been on high dose fentanyl infusion for 3 weeks -infusion d'tabitha on 06/18/15. Neuro consulted and continuous EEG monitoring ordered. Cont vEEG showing mild diffuse encephalopathy but no epileptiform form activity. A/P:: No seizure activity since 06/22. Keppra discontinued per ALD. Abdominal distension 06/15/2015 015 Overview: TF held. KUB pending. Fever 06/08/2015 08/21/2015 Overview: S/p CT chest/abd 06/18, which showed RLL collapse, with findings suggestive of necrotic PNA, and scattered upper lobe opacities; moderate ascites, cholelithiasis and gallbladder sludging without cholecystitis. Remains afebrile. No leukocytosis. - Urine cx (06/07), neg; Bld cx (06/11) x2 - NGTD - One blood culture (06/06) grew lactobacillus - Bld/UA cx drawn (06/16) - neg - BAL cx (06/20): smear shows GPC in clusters - Bld cx (06/21) NGTD Plan: - Meropenem stopped on 06/22 - Cont PO Vancomycin through hospitalization - F/u BAL cx (06/20) - Smear currently shows GPC in clusters but no organisms on culture; in the setting of resurgence of fevers, restarted on IV Vanc on 06/18->. Continue Vancomycin oral Mild protein-calorie malnutrition 06/04/2015 04/11/2017 Overview: Nutrition following. Ice chips only per beside swallow evaluation. Advanced to popcicle and applesauce 07/19 A/P: Tolerating TF via corpak at goal. Continue TF at current rate, monitor labs. Speech evaluation today Ischemia of hand 06/01/2015 06/05/2015 Overview: Radial a line removed- good doppler signals Rooke mittens placed Heparin infusion for goal pTT 45-55. Ischemia of lower extremity 06/01/2015 06/08/2015 Overview: Left lower extremity ischemia, has regained DP/PT doppler signals, but calf muscles remains somewhat tense. A/P: CKs normalizing, will stop following CK levels at this time. Vascular surgery signing off, appreciate assistance. 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 Radial art line was in LUE. Art line removed and arterial duplex showed radial artery thrombosis with patent ulnar artery. Pt now with strong pulse in L radial artery. Thrombocytopenia 06/01/2015 06/08/2015 Overview: Required massive transfusion after OR, placed on VA ECMO. Likely consumptive coagulopathy, however PF4 antibody sent given recent initiation of heparin IV. A/P: -Appears to be resolving, platelets 98,000 today. Cardiac insufficiency follow ing cardiac surgery 05/30/2015 06/15/2015 Overview: Severe RV, arrived from OR on iflolan and Epi. iFlolan weaned off A/P: Off epi and iFlolan. Open chest wound 05/30/2015 06/11/2015 Overview: S/p Lung Tx A/P: Dressing intact, continue ATBX while chest is open. Possible closure today Volume overload 05/30/2015 09/02/2015 Overview: + fluid balance due to multiple transfusions and volume replacement for shock in the early post op period. A/P: - 1.9 L/24hr. Continue diuresis, monitor UOP and labs. Personal history of ECMO 05/30/201502/2015 Overview: VV ECMO on 05/30, Transitioned to VA ECMO 05/31. VA ECMO weaned 06/03, back on VV ECMO Decannulated on 06/15. Stress hyperglycemia 05/30/2015 015 Overview: S/P Lung Tx A/P: Stress hyperglycemia exacerbated by surgery and pressors. RHI infusion for glycemic control. Shock liver - hepatic insufficiency 05/30/2015 06/05/2015 Overview: Markedly elevated LFTs, persistent coagulopathy and bleeding despite near- continuous trasnfusion of blood products. Also recurrent hypoglycemia requiring D50 boluses and D10W infusion. A/P: LFTs downtrending. 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 Progressively hypoxemic after arrival to ICU despite maximal MV support with lung protective ventilation and inhaled epoprostenol. NMB, inverted I:E ratio, high PEEP, low Vt with permissive hypercapnia only helped transiently. VV ECMO placed. Optimize vent settings, BPH, pain control, VV ECMO. Worsening lung compliance d/t hypervolemia (pulm edema) and/ or PGD. Continues on iFlolan. Switched to VA ECMO but maintaining very low Vt plus high PEEP. 06/03 Washout with VA ECMO weaned. VV ECMO initiated. S/p ECMO decannulation 06/15. S/p trach 06/19. Tolerated ~>11hrs on 07/06, but CXR with increased atelectasis following. A/P: CXR with bilateral opacities. Tolerating TC ATC. Continue TC, BPH, pain control, OOB. Consumption coagulopathy 05/29/2015 Overview: S/P Lung Transplant. Severe coagulopathic bleeding intraop and immediately postop. Received multiple blood products - plts, cryoppt, FFP and prbcs. Also rewarming for postop hypothermia. A/P: 4u pRBC and 2u platelets distribution coordinator to OR. PF4 antibody negative Chest remains open. Hypotension 05/29/2015 06/15/2015 Overview: Post Lung Tx. Severely vasoplegic intraop and immediately postop requiring multiple inopressors. Received methylene blue bolus intraop. Arrived ICU on epi, norepi, vasopressin and phenylephrine was added in ICU to maintain MAP >60mmHg. Wean for MAP 65 or greater. A/P: Off epi. Maintain MAPs 65-75. Acute blood loss anemia 05/29/201508/12 Overview: H/H remains low but stable. 07/10: H/H 6.6/21--transfused 1 unit 07/11: Transfused for 6.8/21.3 A/P: Monitor H/H, transfuse prn. Acute postoperative pain 05/29/2015 Overview: Post op lung Tx A/P: Dilaudid and acetaminophen prn for pain Hypothermia following anesthesia 05/29/2015 06/02/2015 Overview: 05/30/2015 Rewarming with forced warm air blanket Lactic acidosis 05/29/2015 06/03/2015 Overview: S/P Lung Tx A/P: Resolved with lactate levels of 1.2 today Right heart failure, NYHA class 4 04/27/2015 08/21/2015 Right heart failure due to p ulmonary hypertension 04/21/2015 06/02/2015 Overview: Patient with right heart failure stigmata (JVD, ascites and lower extremity edema). BP has been on the lower side. Oxygen requirement increased to 3L from 2 L Plan: - Will get repeat Echo with bubble study (last one from January 2015). - Place a PA cath and continue to diurese while monitoring her right heart pressures. - Will need IV lasix-received 80 IV lasix on 04/20 and 100 IV lasix on 04/21 - Continue spironolactone. JAMES (acute kidney injury) 04/21/2015 Overview: Baseline Cr 0.9 (04/09) -> Cr up to 2.4. A/P: JAMES is likely 2/2 ATN given hypotension and hemorrhage. Balance volume repletion with diuresis --> Cr continues to downtrend 1.92 -->1.37 today. Nephrology following - Maintain MAP 65 or greater, avoid nephrotoxic agents. Continue Lasix drip Hyponatremia with excess ext racellular fluid volume 04/21/2015 06/02/2015 Overview: Likely hypervolemic hyponatremia. Na improved form 126 to 130 this am. Patient is already on torsemide, spironolactone and metolazone at home. Plan: - Continue to diurese as kidney function allows. Palpitations 12/24/2014 08/21/2015 Hypoxemia 07/28/2014 08/21/2015 Vocal cord paralysis 03/31/2014 015 CTEPH (chronic thromboemboli c pulmonary hypertension) 04/29/2013 06/02/2015 Overview: - Will continue home meds including Bosentan, Tadalafil and Treprostinil. - O2 requirements as needed (uses 2L NC at home at night). - Continue home O2 - Patient was seen by lung transplant team. Tests required include: Quantitative perfusion scan (done) Gastric emptying study, esophageal manometry and 24hr pH study (ordered) Dental consultation (will need to call ) Social Work (on board) Iron deficiency anemia 01/25/201304/11 Overview: Menstruating female with iron deficiency Cardiomegaly 01/25/2013 09/02/2015 Overview: -- RV enlargement due to PH Exertional dyspnea 01/25/2013 5 Mediastinal adenopathy 01/25/201308/21 Hilar adenopathy 01/25/2013 08/21/2015 Overview: Noted on imaging- mother with a history of Sarcoid Could be 2/2 to chronic VTE and pHTN Lung nodules 01/25/2013 09/02/2015 Overview: Noted on imaging Follow Anticoagulation management encounter 01/25/2013 01/26/2013 SUMMARY 01/24/2013 02/02/2013 Overview: This is a 17 year old female with no significant PMH other than migraine and minimal allergies who developed significant SOB within the past 2 months, this progressed to the point where she was unable to walk up 2 flights of stairs and had mild chest pressure with activty. This worsened on a recent trip to [place] where she was on a 6 hour plane ride leading to a near syncopal episode. She presented ot her PCP for fatigue and was found to have anemia, elevated WBC count and on echo a elevated RVSP and dilated RV. She was sent for CT at her local Ed where she was found to have 2 small PE's. Patient sent for further evaluation. At admission upon review of her Ct there is no PE noted, she does however have significant cardiomegaly, increase RVSP and right atrial dilatation, will need to work up cause of PAH PAH (pulmonary artery hypertension) 01/24/2013 08/21/2015 Overview: Found to have elevated RVSP on echo with RV dilatation. ? Sarcoid as she has a family hx as well as polyarthralgia and fatigue - now with hilar lymphadenopathy RHC revealing PA HTN. 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 as angio was suggestive of multiple PEs small and chronic Plan: Further Remodulin titration as an out-patient q weekly, now on 7.5 ng/kg/min PET scan for VALERIA in the chest complete 02/07 Night sweats 01/24/2013 08/21/2015 Overview: Unclear etiology- Awaiting further PAH workup and Rheum w/u is neg so far documented as of this encounter (statuses as of 05/11/2023) [facility] History of Past illness Narrative* Problem Noted Date Diagnosed Date Resolved Date Abnormality of gait 12/24/2015 04/11/20 17 Ascites 07/13/2015 08/21/2015 Overview: Abdominal distension 07/09 KUB: air in stomach, repeat on 07/11: no dilated loops of bowel 07/11: US abdomen + ascites 07/13 Paracentesis ~ 2L straw colored fluid A/P: Abdomen soft, distended. No c/o abd. fullness. Monitor. Seizure 06/22/2015 08/21/2015 Overview: 06/22/2015 0230 Sudden new onset seizures - with generalized rhythmic contractions of all extremities plus facial twitching. Treated lorazepam and midazolam. Stat head CT negative for bleed. No acute metabolic changes on ABG. Concern for withdrawal from opioids - had been on high dose fentanyl infusion for 3 weeks -infusion d'tabitha on 06/18/15. Neuro consulted and continuous EEG monitoring ordered. Cont vEEG showing mild diffuse encephalopathy but no epileptiform form activity. A/P:: No seizure activity since 06/22. Keppra discontinued per ALD. Abdominal distension 06/15/2015 015 Overview: TF held. KUB pending. Fever 06/08/2015 08/21/2015 Overview: S/p CT chest/abd 06/18, which showed RLL collapse, with findings suggestive of necrotic PNA, and scattered upper lobe opacities; moderate ascites, cholelithiasis and gallbladder sludging without cholecystitis. Remains afebrile. No leukocytosis. - Urine cx (06/07), neg; Bld cx (06/11) x2 - NGTD - One blood culture (06/06) grew lactobacillus - Bld/UA cx drawn (06/16) - neg - BAL cx (06/20): smear shows GPC in clusters - Bld cx (06/21) NGTD Plan: - Meropenem stopped on 06/22 - Cont PO Vancomycin through hospitalization - F/u BAL cx (06/20) - Smear currently shows GPC in clusters but no organisms on culture; in the setting of resurgence of fevers, restarted on IV Vanc on 06/18->. Continue Vancomycin oral Mild protein-calorie malnutrition 06/04/2015 04/11/2017 Overview: Nutrition following. Ice chips only per beside swallow evaluation. Advanced to popcicle and applesauce 07/19 A/P: Tolerating TF via corpak at goal. Continue TF at current rate, monitor labs. Speech evaluation today Ischemia of hand 06/01/2015 06/05/2015 Overview: Radial a line removed- good doppler signals Rooke mittens placed Heparin infusion for goal pTT 45-55. Ischemia of lower extremity 06/01/2015 06/08/2015 Overview: Left lower extremity ischemia, has regained DP/PT doppler signals, but calf muscles remains somewhat tense. A/P: CKs normalizing, will stop following CK levels at this time. Vascular surgery signing off, appreciate assistance. 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 Radial art line was in LUE. Art line removed and arterial duplex showed radial artery thrombosis with patent ulnar artery. Pt now with strong pulse in L radial artery. Thrombocytopenia 06/01/2015 06/08/2015 Overview: Required massive transfusion after OR, placed on VA ECMO. Likely consumptive coagulopathy, however PF4 antibody sent given recent initiation of heparin IV. A/P: -Appears to be resolving, platelets 98,000 today. Cardiac insufficiency follow ing cardiac surgery 05/30/2015 06/15/2015 Overview: Severe RV, arrived from OR on iflolan and Epi. iFlolan weaned off A/P: Off epi and iFlolan. Open chest wound 05/30/2015 06/11/2015 Overview: S/p Lung Tx A/P: Dressing intact, continue ATBX while chest is open. Possible closure today Volume overload 05/30/2015 09/02/2015 Overview: + fluid balance due to multiple transfusions and volume replacement for shock in the early post op period. A/P: - 1.9 L/24hr. Continue diuresis, monitor UOP and labs. Personal history of ECMO 05/30/201502/2015 Overview: VV ECMO on 05/30, Transitioned to VA ECMO 05/31. VA ECMO weaned 06/03, back on VV ECMO Decannulated on 06/15. Stress hyperglycemia 05/30/2015 015 Overview: S/P Lung Tx A/P: Stress hyperglycemia exacerbated by surgery and pressors. RHI infusion for glycemic control. Shock liver - hepatic insufficiency 05/30/2015 06/05/2015 Overview: Markedly elevated LFTs, persistent coagulopathy and bleeding despite near- continuous trasnfusion of blood products. Also recurrent hypoglycemia requiring D50 boluses and D10W infusion. A/P: LFTs downtrending. 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 Progressively hypoxemic after arrival to ICU despite maximal MV support with lung protective ventilation and inhaled epoprostenol. NMB, inverted I:E ratio, high PEEP, low Vt with permissive hypercapnia only helped transiently. VV ECMO placed. Optimize vent settings, BPH, pain control, VV ECMO. Worsening lung compliance d/t hypervolemia (pulm edema) and/ or PGD. Continues on iFlolan. Switched to VA ECMO but maintaining very low Vt plus high PEEP. 06/03 Washout with VA ECMO weaned. VV ECMO initiated. S/p ECMO decannulation 06/15. S/p trach 06/19. Tolerated ~>11hrs on 07/06, but CXR with increased atelectasis following. A/P: CXR with bilateral opacities. Tolerating TC ATC. Continue TC, BPH, pain control, OOB. Consumption coagulopathy 05/29/2015 Overview: S/P Lung Transplant. Severe coagulopathic bleeding intraop and immediately postop. Received multiple blood products - plts, cryoppt, FFP and prbcs. Also rewarming for postop hypothermia. A/P: 4u pRBC and 2u platelets distribution coordinator to OR. PF4 antibody negative Chest remains open. Hypotension 05/29/2015 06/15/2015 Overview: Post Lung Tx. Severely vasoplegic intraop and immediately postop requiring multiple inopressors. Received methylene blue bolus intraop. Arrived ICU on epi, norepi, vasopressin and phenylephrine was added in ICU to maintain MAP >60mmHg. Wean for MAP 65 or greater. A/P: Off epi. Maintain MAPs 65-75. Acute blood loss anemia 05/29/201508/12 Overview: H/H remains low but stable. 07/10: H/H 6.6/21--transfused 1 unit 07/11: Transfused for 6.8/21.3 A/P: Monitor H/H, transfuse prn. Acute postoperative pain 05/29/2015 Overview: Post op lung Tx A/P: Dilaudid and acetaminophen prn for pain Hypothermia following anesthesia 05/29/2015 06/02/2015 Overview: 05/30/2015 Rewarming with forced warm air blanket Lactic acidosis 05/29/2015 06/03/2015 Overview: S/P Lung Tx A/P: Resolved with lactate levels of 1.2 today Right heart failure, NYHA class 4 04/27/2015 08/21/2015 Right heart failure due to p ulmonary hypertension 04/21/2015 06/02/2015 Overview: Patient with right heart failure stigmata (JVD, ascites and lower extremity edema). BP has been on the lower side. Oxygen requirement increased to 3L from 2 L Plan: - Will get repeat Echo with bubble study (last one from January 2015). - Place a PA cath and continue to diurese while monitoring her right heart pressures. - Will need IV lasix-received 80 IV lasix on 04/20 and 100 IV lasix on 04/21 - Continue spironolactone. JAMES (acute kidney injury) 04/21/2015 Overview: Baseline Cr 0.9 (04/09) -> Cr up to 2.4. A/P: JAMES is likely 2/2 ATN given hypotension and hemorrhage. Balance volume repletion with diuresis --> Cr continues to downtrend 1.92 -->1.37 today. Nephrology following - Maintain MAP 65 or greater, avoid nephrotoxic agents. Continue Lasix drip Hyponatremia with excess ext racellular fluid volume 04/21/2015 06/02/2015 Overview: Likely hypervolemic hyponatremia. Na improved form 126 to 130 this am. Patient is already on torsemide, spironolactone and metolazone at home. Plan: - Continue to diurese as kidney function allows. Palpitations 12/24/2014 08/21/2015 Hypoxemia 07/28/2014 08/21/2015 Vocal cord paralysis 03/31/2014 015 CTEPH (chronic thromboemboli c pulmonary hypertension) 04/29/2013 06/02/2015 Overview: - Will continue home meds including Bosentan, Tadalafil and Treprostinil. - O2 requirements as needed (uses 2L NC at home at night). - Continue home O2 - Patient was seen by lung transplant team. Tests required include: Quantitative perfusion scan (done) Gastric emptying study, esophageal manometry and 24hr pH study (ordered) Dental consultation (will need to call ) Social Work (on board) Iron deficiency anemia 01/25/201304/11 Overview: Menstruating female with iron deficiency Cardiomegaly 01/25/2013 09/02/2015 Overview: -- RV enlargement due to PH Exertional dyspnea 01/25/2013 5 Mediastinal adenopathy 01/25/201308/21 Hilar adenopathy 01/25/2013 08/21/2015 Overview: Noted on imaging- mother with a history of Sarcoid Could be 2/2 to chronic VTE and pHTN Lung nodules 01/25/2013 09/02/2015 Overview: Noted on imaging Follow Anticoagulation management encounter 01/25/2013 01/26/2013 SUMMARY 01/24/2013 02/02/2013 Overview: This is a 17 year old female with no significant PMH other than migraine and minimal allergies who developed significant SOB within the past 2 months, this progressed to the point where she was unable to walk up 2 flights of stairs and had mild chest pressure with activty. This worsened on a recent trip to [place] where she was on a 6 hour plane ride leading to a near syncopal episode. She presented ot her PCP for fatigue and was found to have anemia, elevated WBC count and on echo a elevated RVSP and dilated RV. She was sent for CT at her local Ed where she was found to have 2 small PE's. Patient sent for further evaluation. At admission upon review of her Ct there is no PE noted, she does however have significant cardiomegaly, increase RVSP and right atrial dilatation, will need to work up cause of PAH PAH (pulmonary artery hypertension) 01/24/2013 08/21/2015 Overview: Found to have elevated RVSP on echo with RV dilatation. ? Sarcoid as she has a family hx as well as polyarthralgia and fatigue - now with hilar lymphadenopathy RHC revealing PA HTN. 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 as angio was suggestive of multiple PEs small and chronic Plan: Further Remodulin titration as an out-patient q weekly, now on 7.5 ng/kg/min PET scan for VALERIA in the chest complete 02/07 Night sweats 01/24/2013 08/21/2015 Overview: Unclear etiology- Awaiting further PAH workup and Rheum w/u is neg so far documented as of this encounter (statuses as of 05/16/2023) [facility] History of Past illness Narrative* Problem Noted Date Diagnosed Date Resolved Date Abnormality of gait 12/24/2015 04/11/20 17 Ascites 07/13/2015 08/21/2015 Overview: Abdominal distension 07/09 KUB: air in stomach, repeat on 07/11: no dilated loops of bowel 07/11: US abdomen + ascites 07/13 Paracentesis ~ 2L straw colored fluid A/P: Abdomen soft, distended. No c/o abd. fullness. Monitor. Seizure 06/22/2015 08/21/2015 Overview: 06/22/2015 0230 Sudden new onset seizures - with generalized rhythmic contractions of all extremities plus facial twitching. Treated lorazepam and midazolam. Stat head CT negative for bleed. No acute metabolic changes on ABG. Concern for withdrawal from opioids - had been on high dose fentanyl infusion for 3 weeks -infusion d'tabitha on 06/18/15. Neuro consulted and continuous EEG monitoring ordered. Cont vEEG showing mild diffuse encephalopathy but no epileptiform form activity. A/P:: No seizure activity since 06/22. Keppra discontinued per ALD. Abdominal distension 06/15/2015 015 Overview: TF held. KUB pending. Fever 06/08/2015 08/21/2015 Overview: S/p CT chest/abd 06/18, which showed RLL collapse, with findings suggestive of necrotic PNA, and scattered upper lobe opacities; moderate ascites, cholelithiasis and gallbladder sludging without cholecystitis. Remains afebrile. No leukocytosis. - Urine cx (06/07), neg; Bld cx (06/11) x2 - NGTD - One blood culture (06/06) grew lactobacillus - Bld/UA cx drawn (06/16) - neg - BAL cx (06/20): smear shows GPC in clusters - Bld cx (06/21) NGTD Plan: - Meropenem stopped on 06/22 - Cont PO Vancomycin through hospitalization - F/u BAL cx (06/20) - Smear currently shows GPC in clusters but no organisms on culture; in the setting of resurgence of fevers, restarted on IV Vanc on 06/18->. Continue Vancomycin oral Mild protein-calorie malnutrition 06/04/2015 04/11/2017 Overview: Nutrition following. Ice chips only per beside swallow evaluation. Advanced to popcicle and applesauce 07/19 A/P: Tolerating TF via corpak at goal. Continue TF at current rate, monitor labs. Speech evaluation today Ischemia of hand 06/01/2015 06/05/2015 Overview: Radial a line removed- good doppler signals Rooke mittens placed Heparin infusion for goal pTT 45-55. Ischemia of lower extremity 06/01/2015 06/08/2015 Overview: Left lower extremity ischemia, has regained DP/PT doppler signals, but calf muscles remains somewhat tense. A/P: CKs normalizing, will stop following CK levels at this time. Vascular surgery signing off, appreciate assistance. 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 Radial art line was in LUE. Art line removed and arterial duplex showed radial artery thrombosis with patent ulnar artery. Pt now with strong pulse in L radial artery. Thrombocytopenia 06/01/2015 06/08/2015 Overview: Required massive transfusion after OR, placed on VA ECMO. Likely consumptive coagulopathy, however PF4 antibody sent given recent initiation of heparin IV. A/P: -Appears to be resolving, platelets 98,000 today. Cardiac insufficiency follow ing cardiac surgery 05/30/2015 06/15/2015 Overview: Severe RV, arrived from OR on iflolan and Epi. iFlolan weaned off A/P: Off epi and iFlolan. Open chest wound 05/30/2015 06/11/2015 Overview: S/p Lung Tx A/P: Dressing intact, continue ATBX while chest is open. Possible closure today Volume overload 05/30/2015 09/02/2015 Overview: + fluid balance due to multiple transfusions and volume replacement for shock in the early post op period. A/P: - 1.9 L/24hr. Continue diuresis, monitor UOP and labs. Personal history of ECMO 05/30/201502/2015 Overview: VV ECMO on 05/30, Transitioned to VA ECMO 05/31. VA ECMO weaned 06/03, back on VV ECMO Decannulated on 06/15. Stress hyperglycemia 05/30/2015 015 Overview: S/P Lung Tx A/P: Stress hyperglycemia exacerbated by surgery and pressors. RHI infusion for glycemic control. Shock liver - hepatic insufficiency 05/30/2015 06/05/2015 Overview: Markedly elevated LFTs, persistent coagulopathy and bleeding despite near- continuous trasnfusion of blood products. Also recurrent hypoglycemia requiring D50 boluses and D10W infusion. A/P: LFTs downtrending. 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 Progressively hypoxemic after arrival to ICU despite maximal MV support with lung protective ventilation and inhaled epoprostenol. NMB, inverted I:E ratio, high PEEP, low Vt with permissive hypercapnia only helped transiently. VV ECMO placed. Optimize vent settings, BPH, pain control, VV ECMO. Worsening lung compliance d/t hypervolemia (pulm edema) and/ or PGD. Continues on iFlolan. Switched to VA ECMO but maintaining very low Vt plus high PEEP. 06/03 Washout with VA ECMO weaned. VV ECMO initiated. S/p ECMO decannulation 06/15. S/p trach 06/19. Tolerated ~>11hrs on 07/06, but CXR with increased atelectasis following. A/P: CXR with bilateral opacities. Tolerating TC ATC. Continue TC, BPH, pain control, OOB. Consumption coagulopathy 05/29/2015 Overview: S/P Lung Transplant. Severe coagulopathic bleeding intraop and immediately postop. Received multiple blood products - plts, cryoppt, FFP and prbcs. Also rewarming for postop hypothermia. A/P: 4u pRBC and 2u platelets distribution coordinator to OR. PF4 antibody negative Chest remains open. Hypotension 05/29/2015 06/15/2015 Overview: Post Lung Tx. Severely vasoplegic intraop and immediately postop requiring multiple inopressors. Received methylene blue bolus intraop. Arrived ICU on epi, norepi, vasopressin and phenylephrine was added in ICU to maintain MAP >60mmHg. Wean for MAP 65 or greater. A/P: Off epi. Maintain MAPs 65-75. Acute blood loss anemia 05/29/201508/12 Overview: H/H remains low but stable. 07/10: H/H 6.6/21--transfused 1 unit 07/11: Transfused for 6.8/21.3 A/P: Monitor H/H, transfuse prn. Acute postoperative pain 05/29/2015 Overview: Post op lung Tx A/P: Dilaudid and acetaminophen prn for pain Hypothermia following anesthesia 05/29/2015 06/02/2015 Overview: 05/30/2015 Rewarming with forced warm air blanket Lactic acidosis 05/29/2015 06/03/2015 Overview: S/P Lung Tx A/P: Resolved with lactate levels of 1.2 today Right heart failure, NYHA class 4 04/27/2015 08/21/2015 Right heart failure due to p ulmonary hypertension 04/21/2015 06/02/2015 Overview: Patient with right heart failure stigmata (JVD, ascites and lower extremity edema). BP has been on the lower side. Oxygen requirement increased to 3L from 2 L Plan: - Will get repeat Echo with bubble study (last one from January 2015). - Place a PA cath and continue to diurese while monitoring her right heart pressures. - Will need IV lasix-received 80 IV lasix on 04/20 and 100 IV lasix on 04/21 - Continue spironolactone. JAMES (acute kidney injury) 04/21/2015 Overview: Baseline Cr 0.9 (04/09) -> Cr up to 2.4. A/P: JAMES is likely 2/2 ATN given hypotension and hemorrhage. Balance volume repletion with diuresis --> Cr continues to downtrend 1.92 -->1.37 today. Nephrology following - Maintain MAP 65 or greater, avoid nephrotoxic agents. Continue Lasix drip Hyponatremia with excess ext racellular fluid volume 04/21/2015 06/02/2015 Overview: Likely hypervolemic hyponatremia. Na improved form 126 to 130 this am. Patient is already on torsemide, spironolactone and metolazone at home. Plan: - Continue to diurese as kidney function allows. Palpitations 12/24/2014 08/21/2015 Hypoxemia 07/28/2014 08/21/2015 Vocal cord paralysis 03/31/2014 015 CTEPH (chronic thromboemboli c pulmonary hypertension) 04/29/2013 06/02/2015 Overview: - Will continue home meds including Bosentan, Tadalafil and Treprostinil. - O2 requirements as needed (uses 2L NC at home at night). - Continue home O2 - Patient was seen by lung transplant team. Tests required include: Quantitative perfusion scan (done) Gastric emptying study, esophageal manometry and 24hr pH study (ordered) Dental consultation (will need to call ) Social Work (on board) Iron deficiency anemia 01/25/201304/11 Overview: Menstruating female with iron deficiency Cardiomegaly 01/25/2013 09/02/2015 Overview: -- RV enlargement due to PH Exertional dyspnea 01/25/2013 5 Mediastinal adenopathy 01/25/201308/21 Hilar adenopathy 01/25/2013 08/21/2015 Overview: Noted on imaging- mother with a history of Sarcoid Could be 2/2 to chronic VTE and pHTN Lung nodules 01/25/2013 09/02/2015 Overview: Noted on imaging Follow Anticoagulation management encounter 01/25/2013 01/26/2013 SUMMARY 01/24/2013 02/02/2013 Overview: This is a 17 year old female with no significant PMH other than migraine and minimal allergies who developed significant SOB within the past 2 months, this progressed to the point where she was unable to walk up 2 flights of stairs and had mild chest pressure with activty. This worsened on a recent trip to [place] where she was on a 6 hour plane ride leading to a near syncopal episode. She presented ot her PCP for fatigue and was found to have anemia, elevated WBC count and on echo a elevated RVSP and dilated RV. She was sent for CT at her local Ed where she was found to have 2 small PE's. Patient sent for further evaluation. At admission upon review of her Ct there is no PE noted, she does however have significant cardiomegaly, increase RVSP and right atrial dilatation, will need to work up cause of PAH PAH (pulmonary artery hypertension) 01/24/2013 08/21/2015 Overview: Found to have elevated RVSP on echo with RV dilatation. ? Sarcoid as she has a family hx as well as polyarthralgia and fatigue - now with hilar lymphadenopathy RHC revealing PA HTN. 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 as angio was suggestive of multiple PEs small and chronic Plan: Further Remodulin titration as an out-patient q weekly, now on 7.5 ng/kg/min PET scan for VALERIA in the chest complete 02/07 Night sweats 01/24/2013 08/21/2015 Overview: Unclear etiology- Awaiting further PAH workup and Rheum w/u is neg so far documented as of this encounter (statuses as of 06/01/2023) [facility] History of Past illness Narrative* Problem Noted Date Diagnosed Date Resolved Date Abnormality of gait 12/24/2015 04/11/20 17 Ascites 07/13/2015 08/21/2015 Overview: Abdominal distension 07/09 KUB: air in stomach, repeat on 07/11: no dilated loops of bowel 07/11: US abdomen + ascites 07/13 Paracentesis ~ 2L straw colored fluid A/P: Abdomen soft, distended. No c/o abd. fullness. Monitor. Seizure 06/22/2015 08/21/2015 Overview: 06/22/2015 0230 Sudden new onset seizures - with generalized rhythmic contractions of all extremities plus facial twitching. Treated lorazepam and midazolam. Stat head CT negative for bleed. No acute metabolic changes on ABG. Concern for withdrawal from opioids - had been on high dose fentanyl infusion for 3 weeks -infusion d'tabitha on 06/18/15. Neuro consulted and continuous EEG monitoring ordered. Cont vEEG showing mild diffuse encephalopathy but no epileptiform form activity. A/P:: No seizure activity since 06/22. Keppra discontinued per ALD. Abdominal distension 06/15/2015 015 Overview: TF held. KUB pending. Fever 06/08/2015 08/21/2015 Overview: S/p CT chest/abd 06/18, which showed RLL collapse, with findings suggestive of necrotic PNA, and scattered upper lobe opacities; moderate ascites, cholelithiasis and gallbladder sludging without cholecystitis. Remains afebrile. No leukocytosis. - Urine cx (06/07), neg; Bld cx (06/11) x2 - NGTD - One blood culture (06/06) grew lactobacillus - Bld/UA cx drawn (06/16) - neg - BAL cx (06/20): smear shows GPC in clusters - Bld cx (06/21) NGTD Plan: - Meropenem stopped on 06/22 - Cont PO Vancomycin through hospitalization - F/u BAL cx (06/20) - Smear currently shows GPC in clusters but no organisms on culture; in the setting of resurgence of fevers, restarted on IV Vanc on 06/18->. Continue Vancomycin oral Mild protein-calorie malnutrition 06/04/2015 04/11/2017 Overview: Nutrition following. Ice chips only per beside swallow evaluation. Advanced to popcicle and applesauce 07/19 A/P: Tolerating TF via corpak at goal. Continue TF at current rate, monitor labs. Speech evaluation today Ischemia of hand 06/01/2015 06/05/2015 Overview: Radial a line removed- good doppler signals Rooke mittens placed Heparin infusion for goal pTT 45-55. Ischemia of lower extremity 06/01/2015 06/08/2015 Overview: Left lower extremity ischemia, has regained DP/PT doppler signals, but calf muscles remains somewhat tense. A/P: CKs normalizing, will stop following CK levels at this time. Vascular surgery signing off, appreciate assistance. 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 Radial art line was in LUE. Art line removed and arterial duplex showed radial artery thrombosis with patent ulnar artery. Pt now with strong pulse in L radial artery. Thrombocytopenia 06/01/2015 06/08/2015 Overview: Required massive transfusion after OR, placed on VA ECMO. Likely consumptive coagulopathy, however PF4 antibody sent given recent initiation of heparin IV. A/P: -Appears to be resolving, platelets 98,000 today. Cardiac insufficiency follow ing cardiac surgery 05/30/2015 06/15/2015 Overview: Severe RV, arrived from OR on iflolan and Epi. iFlolan weaned off A/P: Off epi and iFlolan. Open chest wound 05/30/2015 06/11/2015 Overview: S/p Lung Tx A/P: Dressing intact, continue ATBX while chest is open. Possible closure today Volume overload 05/30/2015 09/02/2015 Overview: + fluid balance due to multiple transfusions and volume replacement for shock in the early post op period. A/P: - 1.9 L/24hr. Continue diuresis, monitor UOP and labs. Personal history of ECMO 05/30/201502/2015 Overview: VV ECMO on 05/30, Transitioned to VA ECMO 05/31. VA ECMO weaned 06/03, back on VV ECMO Decannulated on 06/15. Stress hyperglycemia 05/30/2015 015 Overview: S/P Lung Tx A/P: Stress hyperglycemia exacerbated by surgery and pressors. RHI infusion for glycemic control. Shock liver - hepatic insufficiency 05/30/2015 06/05/2015 Overview: Markedly elevated LFTs, persistent coagulopathy and bleeding despite near- continuous trasnfusion of blood products. Also recurrent hypoglycemia requiring D50 boluses and D10W infusion. A/P: LFTs downtrending. 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 Progressively hypoxemic after arrival to ICU despite maximal MV support with lung protective ventilation and inhaled epoprostenol. NMB, inverted I:E ratio, high PEEP, low Vt with permissive hypercapnia only helped transiently. VV ECMO placed. Optimize vent settings, BPH, pain control, VV ECMO. Worsening lung compliance d/t hypervolemia (pulm edema) and/ or PGD. Continues on iFlolan. Switched to VA ECMO but maintaining very low Vt plus high PEEP. 06/03 Washout with VA ECMO weaned. VV ECMO initiated. S/p ECMO decannulation 06/15. S/p trach 06/19. Tolerated ~>11hrs on 07/06, but CXR with increased atelectasis following. A/P: CXR with bilateral opacities. Tolerating TC ATC. Continue TC, BPH, pain control, OOB. Consumption coagulopathy 05/29/2015 Overview: S/P Lung Transplant. Severe coagulopathic bleeding intraop and immediately postop. Received multiple blood products - plts, cryoppt, FFP and prbcs. Also rewarming for postop hypothermia. A/P: 4u pRBC and 2u platelets distribution coordinator to OR. PF4 antibody negative Chest remains open. Hypotension 05/29/2015 06/15/2015 Overview: Post Lung Tx. Severely vasoplegic intraop and immediately postop requiring multiple inopressors. Received methylene blue bolus intraop. Arrived ICU on epi, norepi, vasopressin and phenylephrine was added in ICU to maintain MAP >60mmHg. Wean for MAP 65 or greater. A/P: Off epi. Maintain MAPs 65-75. Acute blood loss anemia 05/29/201508/12 Overview: H/H remains low but stable. 07/10: H/H 6.6/21--transfused 1 unit 07/11: Transfused for 6.8/21.3 A/P: Monitor H/H, transfuse prn. Acute postoperative pain 05/29/2015 Overview: Post op lung Tx A/P: Dilaudid and acetaminophen prn for pain Hypothermia following anesthesia 05/29/2015 06/02/2015 Overview: 05/30/2015 Rewarming with forced warm air blanket Lactic acidosis 05/29/2015 06/03/2015 Overview: S/P Lung Tx A/P: Resolved with lactate levels of 1.2 today Right heart failure, NYHA class 4 04/27/2015 08/21/2015 Right heart failure due to p ulmonary hypertension 04/21/2015 06/02/2015 Overview: Patient with right heart failure stigmata (JVD, ascites and lower extremity edema). BP has been on the lower side. Oxygen requirement increased to 3L from 2 L Plan: - Will get repeat Echo with bubble study (last one from January 2015). - Place a PA cath and continue to diurese while monitoring her right heart pressures. - Will need IV lasix-received 80 IV lasix on 04/20 and 100 IV lasix on 04/21 - Continue spironolactone. JAMES (acute kidney injury) 04/21/2015 Overview: Baseline Cr 0.9 (04/09) -> Cr up to 2.4. A/P: JAMES is likely 2/2 ATN given hypotension and hemorrhage. Balance volume repletion with diuresis --> Cr continues to downtrend 1.92 -->1.37 today. Nephrology following - Maintain MAP 65 or greater, avoid nephrotoxic agents. Continue Lasix drip Hyponatremia with excess ext racellular fluid volume 04/21/2015 06/02/2015 Overview: Likely hypervolemic hyponatremia. Na improved form 126 to 130 this am. Patient is already on torsemide, spironolactone and metolazone at home. Plan: - Continue to diurese as kidney function allows. Palpitations 12/24/2014 08/21/2015 Hypoxemia 07/28/2014 08/21/2015 Vocal cord paralysis 03/31/2014 015 CTEPH (chronic thromboemboli c pulmonary hypertension) 04/29/2013 06/02/2015 Overview: - Will continue home meds including Bosentan, Tadalafil and Treprostinil. - O2 requirements as needed (uses 2L NC at home at night). - Continue home O2 - Patient was seen by lung transplant team. Tests required include: Quantitative perfusion scan (done) Gastric emptying study, esophageal manometry and 24hr pH study (ordered) Dental consultation (will need to call ) Social Work (on board) Iron deficiency anemia 01/25/201304/11 Overview: Menstruating female with iron deficiency Cardiomegaly 01/25/2013 09/02/2015 Overview: -- RV enlargement due to PH Exertional dyspnea 01/25/2013 5 Mediastinal adenopathy 01/25/201308/21 Hilar adenopathy 01/25/2013 08/21/2015 Overview: Noted on imaging- mother with a history of Sarcoid Could be 2/2 to chronic VTE and pHTN Lung nodules 01/25/2013 09/02/2015 Overview: Noted on imaging Follow Anticoagulation management encounter 01/25/2013 01/26/2013 SUMMARY 01/24/2013 02/02/2013 Overview: This is a 17 year old female with no significant PMH other than migraine and minimal allergies who developed significant SOB within the past 2 months, this progressed to the point where she was unable to walk up 2 flights of stairs and had mild chest pressure with activty. This worsened on a recent trip to [place] where she was on a 6 hour plane ride leading to a near syncopal episode. She presented ot her PCP for fatigue and was found to have anemia, elevated WBC count and on echo a elevated RVSP and dilated RV. She was sent for CT at her local Ed where she was found to have 2 small PE's. Patient sent for further evaluation. At admission upon review of her Ct there is no PE noted, she does however have significant cardiomegaly, increase RVSP and right atrial dilatation, will need to work up cause of PAH PAH (pulmonary artery hypertension) 01/24/2013 08/21/2015 Overview: Found to have elevated RVSP on echo with RV dilatation. ? Sarcoid as she has a family hx as well as polyarthralgia and fatigue - now with hilar lymphadenopathy RHC revealing PA HTN. 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 as angio was suggestive of multiple PEs small and chronic Plan: Further Remodulin titration as an out-patient q weekly, now on 7.5 ng/kg/min PET scan for VALERIA in the chest complete 02/07 Night sweats 01/24/2013 08/21/2015 Overview: Unclear etiology- Awaiting further PAH workup and Rheum w/u is neg so far documented as of this encounter (statuses as of 06/09/2023) [facility] History of Past illness Narrative* Problem Noted Date Diagnosed Date Resolved Date Abnormality of gait 12/24/2015 04/11/20 17 Ascites 07/13/2015 08/21/2015 Overview: Abdominal distension 07/09 KUB: air in stomach, repeat on 07/11: no dilated loops of bowel 07/11: US abdomen + ascites 07/13 Paracentesis ~ 2L straw colored fluid A/P: Abdomen soft, distended. No c/o abd. fullness. Monitor. Seizure 06/22/2015 08/21/2015 Overview: 06/22/2015 0230 Sudden new onset seizures - with generalized rhythmic contractions of all extremities plus facial twitching. Treated lorazepam and midazolam. Stat head CT negative for bleed. No acute metabolic changes on ABG. Concern for withdrawal from opioids - had been on high dose fentanyl infusion for 3 weeks -infusion d'tabitha on 10/08/15. Neuro consulted and continuous EEG monitoring ordered. Cont vEEG showing mild diffuse encephalopathy but no epileptiform form activity. A/P:: No seizure activity since 06/22. Keppra discontinued per ALD. Abdominal distension 06/15/2015 015 Overview: TF held. KUB pending. Fever 06/08/2015 08/21/2015 Overview: S/p CT chest/abd 06/18, which showed RLL collapse, with findings suggestive of necrotic PNA, and scattered upper lobe opacities; moderate ascites, cholelithiasis and gallbladder sludging without cholecystitis. Remains afebrile. No leukocytosis. - Urine cx (06/07), neg; Bld cx (06/11) x2 - NGTD - One blood culture (06/06) grew lactobacillus - Bld/UA cx drawn (06/16) - neg - BAL cx (06/20): smear shows GPC in clusters - Bld cx (06/21) NGTD Plan: - Meropenem stopped on 06/22 - Cont PO Vancomycin through hospitalization - F/u BAL cx (06/20) - Smear currently shows GPC in clusters but no organisms on culture; in the setting of resurgence of fevers, restarted on IV Vanc on 06/18->. Continue Vancomycin oral Mild protein-calorie malnutrition 06/04/2015 04/11/2017 Overview: Nutrition following. Ice chips only per beside swallow evaluation. Advanced to popcicle and applesauce 07/19 A/P: Tolerating TF via corpak at goal. Continue TF at current rate, monitor labs. Speech evaluation today Ischemia of hand 06/01/2015 06/05/2015 Overview: Radial a line removed- good doppler signals Dexter ndiaye placed Heparin infusion for goal pTT 45-55. Ischemia of lower extremity 06/01/2015 06/08/2015 Overview: Left lower extremity ischemia, has regained DP/PT doppler signals, but calf muscles remains somewhat tense. A/P: CKs normalizing, will stop following CK levels at this time. Vascular surgery signing off, appreciate assistance. 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 Radial art line was in LUE. Art line removed and arterial duplex showed radial artery thrombosis with patent ulnar artery. Pt now with strong pulse in L radial artery. Thrombocytopenia 06/01/2015 06/08/2015 Overview: Required massive transfusion after OR, placed on VA ECMO. Likely consumptive coagulopathy, however PF4 antibody sent given recent initiation of heparin IV. A/P: -Appears to be resolving, platelets 98,000 today. Cardiac insufficiency follow ing cardiac surgery 05/30/2015 06/15/2015 Overview: Severe RV, arrived from OR on iflolan and Epi. iFlolan weaned off A/P: Off epi and iFlolan. Open chest wound 05/30/2015 06/11/2015 Overview: S/p Lung Tx A/P: Dressing intact, continue ATBX while chest is open. Possible closure today Volume overload 05/30/2015 09/02/2015 Overview: + fluid balance due to multiple transfusions and volume replacement for shock in the early post op period. A/P: - 1.9 L/24hr. Continue diuresis, monitor UOP and labs. Personal history of ECMO 05/30/201502/2015 Overview: VV ECMO on 05/30, Transitioned to VA ECMO 05/31. VA ECMO weaned 06/03, back on VV ECMO Decannulated on 06/15. Stress hyperglycemia 05/30/2015 015 Overview: S/P Lung Tx A/P: Stress hyperglycemia exacerbated by surgery and pressors. RHI infusion for glycemic control. Shock liver - hepatic insufficiency 05/30/2015 06/05/2015 Overview: Markedly elevated LFTs, persistent coagulopathy and bleeding despite near- continuous trasnfusion of blood products. Also recurrent hypoglycemia requiring D50 boluses and D10W infusion. A/P: LFTs downtrending. 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 Progressively hypoxemic after arrival to ICU despite maximal MV support with lung protective ventilation and inhaled epoprostenol. NMB, inverted I:E ratio, high PEEP, low Vt with permissive hypercapnia only helped transiently. VV ECMO placed. Optimize vent settings, BPH, pain control, VV ECMO. Worsening lung compliance d/t hypervolemia (pulm edema) and/ or PGD. Continues on iFlolan. Switched to VA ECMO but maintaining very low Vt plus high PEEP. 06/03 Washout with VA ECMO weaned. VV ECMO initiated. S/p ECMO decannulation 06/15. S/p trach 06/19. Tolerated ~>11hrs on 07/06, but CXR with increased atelectasis following. A/P: CXR with bilateral opacities. Tolerating TC ATC. Continue TC, BPH, pain control, OOB. Consumption coagulopathy 05/29/2015 Overview: S/P Lung Transplant. Severe coagulopathic bleeding intraop and immediately postop. Received multiple blood products - plts, cryoppt, FFP and prbcs. Also rewarming for postop hypothermia. A/P: 4u pRBC and 2u platelets distribution coordinator to OR. PF4 antibody negative Chest remains open. Hypotension 05/29/2015 06/15/2015 Overview: Post Lung Tx. Severely vasoplegic intraop and immediately postop requiring multiple inopressors. Received methylene blue bolus intraop. Arrived ICU on epi, norepi, vasopressin and phenylephrine was added in ICU to maintain MAP >60mmHg. Wean for MAP 65 or greater. A/P: Off epi. Maintain MAPs 65-75. Acute blood loss anemia 05/29/201508/12 Overview: H/H remains low but stable. 07/10: H/H 6.6/21--transfused 1 unit 07/11: Transfused for 6.8/.3 A/P: Monitor H/H, transfuse prn. Acute postoperative pain 05/29/2015 Overview: Post op lung Tx A/P: Dilaudid and acetaminophen prn for pain Hypothermia following anesthesia 05/29/2015 06/02/2015 Overview: 05/30/2015 Rewarming with forced warm air blanket Lactic acidosis 05/29/2015 06/03/2015 Overview: S/P Lung Tx A/P: Resolved with lactate levels of 1.2 today Right heart failure, NYHA class 4 04/27/2015 08/21/2015 Right heart failure due to p ulmonary hypertension 04/21/2015 06/02/2015 Overview: Patient with right heart failure stigmata (JVD, ascites and lower extremity edema). BP has been on the lower side. Oxygen requirement increased to 3L from 2 L Plan: - Will get repeat Echo with bubble study (last one from January 2015). - Place a PA cath and continue to diurese while monitoring her right heart pressures. - Will need IV lasix-received 80 IV lasix on 04/20 and 100 IV lasix on 04/21 - Continue spironolactone. JAMES (acute kidney injury) 04/21/2015 Overview: Baseline Cr 0.9 (04/09) -> Cr up to 2.4. A/P: JAMES is likely 2/2 ATN given hypotension and hemorrhage. Balance volume repletion with diuresis --> Cr continues to downtrend 1.92 -->1.37 today. Nephrology following - Maintain MAP 65 or greater, avoid nephrotoxic agents. Continue Lasix drip Hyponatremia with excess ext racellular fluid volume 04/21/2015 06/02/2015 Overview: Likely hypervolemic hyponatremia. Na improved form 126 to 130 this am. Patient is already on torsemide, spironolactone and metolazone at home. Plan: - Continue to diurese as kidney function allows. Palpitations 12/24/2014 08/21/2015 Hypoxemia 07/28/2014 08/21/2015 Vocal cord paralysis 03/31/2014 015 CTEPH (chronic thromboemboli c pulmonary hypertension) 04/29/2013 06/02/2015 Overview: - Will continue home meds including Bosentan, Tadalafil and Treprostinil. - O2 requirements as needed (uses 2L NC at home at night). - Continue home O2 - Patient was seen by lung transplant team. Tests required include: Quantitative perfusion scan (done) Gastric emptying study, esophageal manometry and 24hr pH study (ordered) Dental consultation (will need to call ) Social Work (on board) Iron deficiency anemia 01/25/201304/11 Overview: Menstruating female with iron deficiency Cardiomegaly 01/25/2013 09/02/2015 Overview: -- RV enlargement due to PH Exertional dyspnea 01/25/2013 5 Mediastinal adenopathy 01/25/201308/21 Hilar adenopathy 01/25/2013 08/21/2015 Overview: Noted on imaging- mother with a history of Sarcoid Could be 2/2 to chronic VTE and pHTN Lung nodules 01/25/2013 09/02/2015 Overview: Noted on imaging Follow Anticoagulation management encounter 01/25/2013 01/26/2013 SUMMARY 01/24/2013 02/02/2013 Overview: This is a 17 year old female with no significant PMH other than migraine and minimal allergies who developed significant SOB within the past 2 months, this progressed to the point where she was unable to walk up 2 flights of stairs and had mild chest pressure with activty. This worsened on a recent trip to [place] where she was on a 6 hour plane ride leading to a near syncopal episode. She presented ot her PCP for fatigue and was found to have anemia, elevated WBC count and on echo a elevated RVSP and dilated RV. She was sent for CT at her local Ed where she was found to have 2 small PE's. Patient sent for further evaluation. At admission upon review of her Ct there is no PE noted, she does however have significant cardiomegaly, increase RVSP and right atrial dilatation, will need to work up cause of PAH PAH (pulmonary artery hypertension) 01/24/2013 08/21/2015 Overview: Found to have elevated RVSP on echo with RV dilatation. ? Sarcoid as she has a family hx as well as polyarthralgia and fatigue - now with hilar lymphadenopathy RHC revealing PA HTN. 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 as angio was suggestive of multiple PEs small and chronic Plan: Further Remodulin titration as an out-patient q weekly, now on 7.5 ng/kg/min PET scan for VALERIA in the chest complete 02/07 Night sweats 01/24/2013 08/21/2015 Overview: Unclear etiology- Awaiting further PAH workup and Rheum w/u is neg so far documented as of this encounter (statuses as of 06/30/2023) [facility] History of Past illness Narrative* Problem Noted Date Diagnosed Date Resolved Date Abnormality of gait 12/24/2015 04/11/20 17 Ascites 07/13/2015 08/21/2015 Overview: Abdominal distension 07/09 KUB: air in stomach, repeat on 07/11: no dilated loops of bowel 07/11: US abdomen + ascites 07/13 Paracentesis ~ 2L straw colored fluid A/P: Abdomen soft, distended. No c/o abd. fullness. Monitor. Seizure 06/22/2015 08/21/2015 Overview: 06/22/2015 0230 Sudden new onset seizures - with generalized rhythmic contractions of all extremities plus facial twitching. Treated lorazepam and midazolam. Stat head CT negative for bleed. No acute metabolic changes on ABG. Concern for withdrawal from opioids - had been on high dose fentanyl infusion for 3 weeks -infusion d'tabitha on 06/18/15. Neuro consulted and continuous EEG monitoring ordered. Cont vEEG showing mild diffuse encephalopathy but no epileptiform form activity. A/P:: No seizure activity since 06/22. Keppra discontinued per ALD. Abdominal distension 06/15/2015 015 Overview: TF held. KUB pending. Fever 06/08/2015 08/21/2015 Overview: S/p CT chest/abd 06/18, which showed RLL collapse, with findings suggestive of necrotic PNA, and scattered upper lobe opacities; moderate ascites, cholelithiasis and gallbladder sludging without cholecystitis. Remains afebrile. No leukocytosis. - Urine cx (06/07), neg; Bld cx (06/11) x2 - NGTD - One blood culture (06/06) grew lactobacillus - Bld/UA cx drawn (06/16) - neg - BAL cx (06/20): smear shows GPC in clusters - Bld cx (06/21) NGTD Plan: - Meropenem stopped on 06/22 - Cont PO Vancomycin through hospitalization - F/u BAL cx (06/20) - Smear currently shows GPC in clusters but no organisms on culture; in the setting of resurgence of fevers, restarted on IV Vanc on 06/18->. Continue Vancomycin oral Mild protein-calorie malnutrition 06/04/2015 04/11/2017 Overview: Nutrition following. Ice chips only per beside swallow evaluation. Advanced to popcicle and applesauce 07/19 A/P: Tolerating TF via corpak at goal. Continue TF at current rate, monitor labs. Speech evaluation today Ischemia of hand 06/01/2015 06/05/2015 Overview: Radial a line removed- good doppler signals Rooke mittens placed Heparin infusion for goal pTT 45-55. Ischemia of lower extremity 06/01/2015 06/08/2015 Overview: Left lower extremity ischemia, has regained DP/PT doppler signals, but calf muscles remains somewhat tense. A/P: CKs normalizing, will stop following CK levels at this time. Vascular surgery signing off, appreciate assistance. 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 Radial art line was in LUE. Art line removed and arterial duplex showed radial artery thrombosis with patent ulnar artery. Pt now with strong pulse in L radial artery. Thrombocytopenia 06/01/2015 06/08/2015 Overview: Required massive transfusion after OR, placed on VA ECMO. Likely consumptive coagulopathy, however PF4 antibody sent given recent initiation of heparin IV. A/P: -Appears to be resolving, platelets 98,000 today. Cardiac insufficiency follow ing cardiac surgery 05/30/2015 06/15/2015 Overview: Severe RV, arrived from OR on iflolan and Epi. iFlolan weaned off A/P: Off epi and iFlolan. Open chest wound 05/30/2015 06/11/2015 Overview: S/p Lung Tx A/P: Dressing intact, continue ATBX while chest is open. Possible closure today Volume overload 05/30/2015 09/02/2015 Overview: + fluid balance due to multiple transfusions and volume replacement for shock in the early post op period. A/P: - 1.9 L/24hr. Continue diuresis, monitor UOP and labs. Personal history of ECMO 05/30/201502/2015 Overview: VV ECMO on 05/30, Transitioned to VA ECMO 05/31. VA ECMO weaned 06/03, back on VV ECMO Decannulated on 06/15. Stress hyperglycemia 05/30/2015 015 Overview: S/P Lung Tx A/P: Stress hyperglycemia exacerbated by surgery and pressors. RHI infusion for glycemic control. Shock liver - hepatic insufficiency 05/30/2015 06/05/2015 Overview: Markedly elevated LFTs, persistent coagulopathy and bleeding despite near- continuous trasnfusion of blood products. Also recurrent hypoglycemia requiring D50 boluses and D10W infusion. A/P: LFTs downtrending. 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 Progressively hypoxemic after arrival to ICU despite maximal MV support with lung protective ventilation and inhaled epoprostenol. NMB, inverted I:E ratio, high PEEP, low Vt with permissive hypercapnia only helped transiently. VV ECMO placed. Optimize vent settings, BPH, pain control, VV ECMO. Worsening lung compliance d/t hypervolemia (pulm edema) and/ or PGD. Continues on iFlolan. Switched to VA ECMO but maintaining very low Vt plus high PEEP. 06/03 Washout with VA ECMO weaned. VV ECMO initiated. S/p ECMO decannulation 06/15. S/p trach 06/19. Tolerated ~>11hrs on 07/06, but CXR with increased atelectasis following. A/P: CXR with bilateral opacities. Tolerating TC ATC. Continue TC, BPH, pain control, OOB. Consumption coagulopathy 05/29/2015 Overview: S/P Lung Transplant. Severe coagulopathic bleeding intraop and immediately postop. Received multiple blood products - plts, cryoppt, FFP and prbcs. Also rewarming for postop hypothermia. A/P: 4u pRBC and 2u platelets distribution coordinator to OR. PF4 antibody negative Chest remains open. Hypotension 05/29/2015 06/15/2015 Overview: Post Lung Tx. Severely vasoplegic intraop and immediately postop requiring multiple inopressors. Received methylene blue bolus intraop. Arrived ICU on epi, norepi, vasopressin and phenylephrine was added in ICU to maintain MAP >60mmHg. Wean for MAP 65 or greater. A/P: Off epi. Maintain MAPs 65-75. Acute blood loss anemia 05/29/201508/12 Overview: H/H remains low but stable. 07/10: H/H 6.03/01--transfused 1 unit 07/11: Transfused for 6.8/21.3 A/P: Monitor H/H, transfuse prn. Acute postoperative pain 05/29/2015 Overview: Post op lung Tx A/P: Dilaudid and acetaminophen prn for pain Hypothermia following anesthesia 05/29/2015 06/02/2015 Overview: 05/30/2015 Rewarming with forced warm air blanket Lactic acidosis 05/29/2015 06/03/2015 Overview: S/P Lung Tx A/P: Resolved with lactate levels of 1.2 today Right heart failure, NYHA class 4 04/27/2015 08/21/2015 Right heart failure due to p ulmonary hypertension 04/21/2015 06/02/2015 Overview: Patient with right heart failure stigmata (JVD, ascites and lower extremity edema). BP has been on the lower side. Oxygen requirement increased to 3L from 2 L Plan: - Will get repeat Echo with bubble study (last one from January 2015). - Place a PA cath and continue to diurese while monitoring her right heart pressures. - Will need IV lasix-received 80 IV lasix on 04/20 and 100 IV lasix on 04/21 - Continue spironolactone. JAMES (acute kidney injury) 04/21/2015 Overview: Baseline Cr 0.9 (04/09) -> Cr up to 2.4. A/P: JAMES is likely 2/2 ATN given hypotension and hemorrhage. Balance volume repletion with diuresis --> Cr continues to downtrend 1.92 -->1.37 today. Nephrology following - Maintain MAP 65 or greater, avoid nephrotoxic agents. Continue Lasix drip Hyponatremia with excess ext racellular fluid volume 04/21/2015 06/02/2015 Overview: Likely hypervolemic hyponatremia. Na improved form 126 to 130 this am. Patient is already on torsemide, spironolactone and metolazone at home. Plan: - Continue to diurese as kidney function allows. Palpitations 12/24/2014 08/21/2015 Hypoxemia 07/28/2014 08/21/2015 Vocal cord paralysis 03/31/2014 015 CTEPH (chronic thromboemboli c pulmonary hypertension) 04/29/2013 06/02/2015 Overview: - Will continue home meds including Bosentan, Tadalafil and Treprostinil. - O2 requirements as needed (uses 2L NC at home at night). - Continue home O2 - Patient was seen by lung transplant team. Tests required include: Quantitative perfusion scan (done) Gastric emptying study, esophageal manometry and 24hr pH study (ordered) Dental consultation (will need to call ) Social Work (on board) Iron deficiency anemia 01/25/201304/11 Overview: Menstruating female with iron deficiency Cardiomegaly 01/25/2013 09/02/2015 Overview: -- RV enlargement due to PH Exertional dyspnea 01/25/2013 5 Mediastinal adenopathy 01/25/201308/21 Hilar adenopathy 01/25/2013 08/21/2015 Overview: Noted on imaging- mother with a history of Sarcoid Could be 2/2 to chronic VTE and pHTN Lung nodules 01/25/2013 09/02/2015 Overview: Noted on imaging Follow Anticoagulation management encounter 01/25/2013 01/26/2013 SUMMARY 01/24/2013 02/02/2013 Overview: This is a 17 year old female with no significant PMH other than migraine and minimal allergies who developed significant SOB within the past 2 months, this progressed to the point where she was unable to walk up 2 flights of stairs and had mild chest pressure with activty. This worsened on a recent trip to [place] where she was on a 6 hour plane ride leading to a near syncopal episode. She presented ot her PCP for fatigue and was found to have anemia, elevated WBC count and on echo a elevated RVSP and dilated RV. She was sent for CT at her local Ed where she was found to have 2 small PE's. Patient sent for further evaluation. At admission upon review of her Ct there is no PE noted, she does however have significant cardiomegaly, increase RVSP and right atrial dilatation, will need to work up cause of PAH PAH (pulmonary artery hypertension) 01/24/2013 08/21/2015 Overview: Found to have elevated RVSP on echo with RV dilatation. ? Sarcoid as she has a family hx as well as polyarthralgia and fatigue - now with hilar lymphadenopathy RHC revealing PA HTN. 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 as angio was suggestive of multiple PEs small and chronic Plan: Further Remodulin titration as an out-patient q weekly, now on 7.5 ng/kg/min PET scan for VALERIA in the chest complete 02/07 Night sweats 01/24/2013 08/21/2015 Overview: Unclear etiology- Awaiting further PAH workup and Rheum w/u is neg so far documented as of this encounter (statuses as of 07/14/2023) [facility] History of Past illness Narrative* Problem Noted Date Diagnosed Date Resolved Date Abnormality of gait 12/24/2015 04/11/20 17 Ascites 07/13/2015 08/21/2015 Overview: Abdominal distension 07/09 KUB: air in stomach, repeat on 07/11: no dilated loops of bowel 07/11: US abdomen + ascites 07/13 Paracentesis ~ 2L straw colored fluid A/P: Abdomen soft, distended. No c/o abd. fullness. Monitor. Seizure 06/22/2015 08/21/2015 Overview: 06/22/2015 0230 Sudden new onset seizures - with generalized rhythmic contractions of all extremities plus facial twitching. Treated lorazepam and midazolam. Stat head CT negative for bleed. No acute metabolic changes on ABG. Concern for withdrawal from opioids - had been on high dose fentanyl infusion for 3 weeks -infusion d'tabitha on 06/18/15. Neuro consulted and continuous EEG monitoring ordered. Cont vEEG showing mild diffuse encephalopathy but no epileptiform form activity. A/P:: No seizure activity since 06/22. Keppra discontinued per ALD. Abdominal distension 06/15/2015 015 Overview: TF held. KUB pending. Fever 06/08/2015 08/21/2015 Overview: S/p CT chest/abd 06/18, which showed RLL collapse, with findings suggestive of necrotic PNA, and scattered upper lobe opacities; moderate ascites, cholelithiasis and gallbladder sludging without cholecystitis. Remains afebrile. No leukocytosis. - Urine cx (06/07), neg; Bld cx (06/11) x2 - NGTD - One blood culture (06/06) grew lactobacillus - Bld/UA cx drawn (06/16) - neg - BAL cx (06/20): smear shows GPC in clusters - Bld cx (06/21) NGTD Plan: - Meropenem stopped on 06/22 - Cont PO Vancomycin through hospitalization - F/u BAL cx (06/20) - Smear currently shows GPC in clusters but no organisms on culture; in the setting of resurgence of fevers, restarted on IV Vanc on 06/18->. Continue Vancomycin oral Mild protein-calorie malnutrition 06/04/2015 04/11/2017 Overview: Nutrition following. Ice chips only per beside swallow evaluation. Advanced to popcicle and applesauce 07/19 A/P: Tolerating TF via corpak at goal. Continue TF at current rate, monitor labs. Speech evaluation today Ischemia of hand 06/01/2015 06/05/2015 Overview: Radial a line removed- good doppler signals Dexter ndiaye placed Heparin infusion for goal pTT 45-55. Ischemia of lower extremity 06/01/2015 06/08/2015 Overview: Left lower extremity ischemia, has regained DP/PT doppler signals, but calf muscles remains somewhat tense. A/P: CKs normalizing, will stop following CK levels at this time. Vascular surgery signing off, appreciate assistance. 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 Radial art line was in LUE. Art line removed and arterial duplex showed radial artery thrombosis with patent ulnar artery. Pt now with strong pulse in L radial artery. Thrombocytopenia 06/01/2015 06/08/2015 Overview: Required massive transfusion after OR, placed on VA ECMO. Likely consumptive coagulopathy, however PF4 antibody sent given recent initiation of heparin IV. A/P: -Appears to be resolving, platelets 98,000 today. Cardiac insufficiency follow ing cardiac surgery 05/30/2015 06/15/2015 Overview: Severe RV, arrived from OR on iflolan and Epi. iFlolan weaned off A/P: Off epi and iFlolan. Open chest wound 05/30/2015 06/11/2015 Overview: S/p Lung Tx A/P: Dressing intact, continue ATBX while chest is open. Possible closure today Volume overload 05/30/2015 09/02/2015 Overview: + fluid balance due to multiple transfusions and volume replacement for shock in the early post op period. A/P: - 1.9 L/24hr. Continue diuresis, monitor UOP and labs. Personal history of ECMO 05/30/201502/2015 Overview: VV ECMO on 05/30, Transitioned to VA ECMO 05/31. VA ECMO weaned 06/03, back on VV ECMO Decannulated on 06/15. Stress hyperglycemia 05/30/2015 015 Overview: S/P Lung Tx A/P: Stress hyperglycemia exacerbated by surgery and pressors. RHI infusion for glycemic control. Shock liver - hepatic insufficiency 05/30/2015 06/05/2015 Overview: Markedly elevated LFTs, persistent coagulopathy and bleeding despite near- continuous trasnfusion of blood products. Also recurrent hypoglycemia requiring D50 boluses and D10W infusion. A/P: LFTs downtrending. 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 Progressively hypoxemic after arrival to ICU despite maximal MV support with lung protective ventilation and inhaled epoprostenol. NMB, inverted I:E ratio, high PEEP, low Vt with permissive hypercapnia only helped transiently. VV ECMO placed. Optimize vent settings, BPH, pain control, VV ECMO. Worsening lung compliance d/t hypervolemia (pulm edema) and/ or PGD. Continues on iFlolan. Switched to VA ECMO but maintaining very low Vt plus high PEEP. 06/03 Washout with VA ECMO weaned. VV ECMO initiated. S/p ECMO decannulation 06/15. S/p trach 06/19. Tolerated ~>11hrs on 07/06, but CXR with increased atelectasis following. A/P: CXR with bilateral opacities. Tolerating TC ATC. Continue TC, BPH, pain control, OOB. Consumption coagulopathy 05/29/2015 Overview: S/P Lung Transplant. Severe coagulopathic bleeding intraop and immediately postop. Received multiple blood products - plts, cryoppt, FFP and prbcs. Also rewarming for postop hypothermia. A/P: 4u pRBC and 2u platelets distribution coordinator to OR. PF4 antibody negative Chest remains open. Hypotension 05/29/2015 06/15/2015 Overview: Post Lung Tx. Severely vasoplegic intraop and immediately postop requiring multiple inopressors. Received methylene blue bolus intraop. Arrived ICU on epi, norepi, vasopressin and phenylephrine was added in ICU to maintain MAP >60mmHg. Wean for MAP 65 or greater. A/P: Off epi. Maintain MAPs 65-75. Acute blood loss anemia 05/29/201508/12 Overview: H/H remains low but stable. 07/10: H/H 6.6--transfused 1 unit 07/11: Transfused for 6.8.3 A/P: Monitor H/H, transfuse prn. Acute postoperative pain 05/29/2015 Overview: Post op lung Tx A/P: Dilaudid and acetaminophen prn for pain Hypothermia following anesthesia 05/29/2015 06/02/2015 Overview: 05/30/2015 Rewarming with forced warm air blanket Lactic acidosis 05/29/2015 06/03/2015 Overview: S/P Lung Tx A/P: Resolved with lactate levels of 1.2 today Right heart failure, NYHA class 4 04/27/2015 08/21/2015 Right heart failure due to p ulmonary hypertension 04/21/2015 06/02/2015 Overview: Patient with right heart failure stigmata (JVD, ascites and lower extremity edema). BP has been on the lower side. Oxygen requirement increased to 3L from 2 L Plan: - Will get repeat Echo with bubble study (last one from January 2015). - Place a PA cath and continue to diurese while monitoring her right heart pressures. - Will need IV lasix-received 80 IV lasix on 04/20 and 100 IV lasix on 04/21 - Continue spironolactone. JAMES (acute kidney injury) 04/21/2015 Overview: Baseline Cr 0.9 (04/09) -> Cr up to 2.4. A/P: JAMES is likely 2/2 ATN given hypotension and hemorrhage. Balance volume repletion with diuresis --> Cr continues to downtrend 1.92 -->1.37 today. Nephrology following - Maintain MAP 65 or greater, avoid nephrotoxic agents. Continue Lasix drip Hyponatremia with excess ext racellular fluid volume 04/21/2015 06/02/2015 Overview: Likely hypervolemic hyponatremia. Na improved form 126 to 130 this am. Patient is already on torsemide, spironolactone and metolazone at home. Plan: - Continue to diurese as kidney function allows. Palpitations 12/24/2014 08/21/2015 Hypoxemia 07/28/2014 08/21/2015 Vocal cord paralysis 03/31/2014 015 CTEPH (chronic thromboemboli c pulmonary hypertension) 04/29/2013 06/02/2015 Overview: - Will continue home meds including Bosentan, Tadalafil and Treprostinil. - O2 requirements as needed (uses 2L NC at home at night). - Continue home O2 - Patient was seen by lung transplant team. Tests required include: Quantitative perfusion scan (done) Gastric emptying study, esophageal manometry and 24hr pH study (ordered) Dental consultation (will need to call ) Social Work (on board) Iron deficiency anemia 01/25/201304/11 Overview: Menstruating female with iron deficiency Cardiomegaly 01/25/2013 09/02/2015 Overview: -- RV enlargement due to PH Exertional dyspnea 01/25/2013 5 Mediastinal adenopathy 01/25/201308/21 Hilar adenopathy 01/25/2013 08/21/2015 Overview: Noted on imaging- mother with a history of Sarcoid Could be 2/2 to chronic VTE and pHTN Lung nodules 01/25/2013 09/02/2015 Overview: Noted on imaging Follow Anticoagulation management encounter 01/25/2013 01/26/2013 SUMMARY 01/24/2013 02/02/2013 Overview: This is a 17 year old female with no significant PMH other than migraine and minimal allergies who developed significant SOB within the past 2 months, this progressed to the point where she was unable to walk up 2 flights of stairs and had mild chest pressure with activty. This worsened on a recent trip to [place] where she was on a 6 hour plane ride leading to a near syncopal episode. She presented ot her PCP for fatigue and was found to have anemia, elevated WBC count and on echo a elevated RVSP and dilated RV. She was sent for CT at her local Ed where she was found to have 2 small PE's. Patient sent for further evaluation. At admission upon review of her Ct there is no PE noted, she does however have significant cardiomegaly, increase RVSP and right atrial dilatation, will need to work up cause of PAH PAH (pulmonary artery hypertension) 01/24/2013 08/21/2015 Overview: Found to have elevated RVSP on echo with RV dilatation. ? Sarcoid as she has a family hx as well as polyarthralgia and fatigue - now with hilar lymphadenopathy RHC revealing PA HTN. 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 as angio was suggestive of multiple PEs small and chronic Plan: Further Remodulin titration as an out-patient q weekly, now on 7.5 ng/kg/min PET scan for VALERIA in the chest complete 02/07 Night sweats 01/24/2013 08/21/2015 Overview: Unclear etiology- Awaiting further PAH workup and Rheum w/u is neg so far documented as of this encounter (statuses as of 07/24/2023) [facility] History of Past illness Narrative* Problem Noted Date Diagnosed Date Resolved Date Abnormality of gait 12/24/2015 04/11/20 17 Ascites 07/13/2015 08/21/2015 Overview: Abdominal distension 07/09 KUB: air in stomach, repeat on 07/11: no dilated loops of bowel 07/11: US abdomen + ascites 07/13 Paracentesis ~ 2L straw colored fluid A/P: Abdomen soft, distended. No c/o abd. fullness. Monitor. Seizure 06/22/2015 08/21/2015 Overview: 06/22/2015 0230 Sudden new onset seizures - with generalized rhythmic contractions of all extremities plus facial twitching. Treated lorazepam and midazolam. Stat head CT negative for bleed. No acute metabolic changes on ABG. Concern for withdrawal from opioids - had been on high dose fentanyl infusion for 3 weeks -infusion d'tabitha on 06/18/15. Neuro consulted and continuous EEG monitoring ordered. Cont vEEG showing mild diffuse encephalopathy but no epileptiform form activity. A/P:: No seizure activity since 06/22. Keppra discontinued per ALD. Abdominal distension 06/15/2015 015 Overview: TF held. KUB pending. Fever 06/08/2015 08/21/2015 Overview: S/p CT chest/abd 06/18, which showed RLL collapse, with findings suggestive of necrotic PNA, and scattered upper lobe opacities; moderate ascites, cholelithiasis and gallbladder sludging without cholecystitis. Remains afebrile. No leukocytosis. - Urine cx (06/07), neg; Bld cx (06/11) x2 - NGTD - One blood culture (06/06) grew lactobacillus - Bld/UA cx drawn (06/16) - neg - BAL cx (06/20): smear shows GPC in clusters - Bld cx (06/21) NGTD Plan: - Meropenem stopped on 06/22 - Cont PO Vancomycin through hospitalization - F/u BAL cx (06/20) - Smear currently shows GPC in clusters but no organisms on culture; in the setting of resurgence of fevers, restarted on IV Vanc on 06/18->. Continue Vancomycin oral Mild protein-calorie malnutrition 06/04/2015 04/11/2017 Overview: Nutrition following. Ice chips only per beside swallow evaluation. Advanced to popcicle and applesauce 07/19 A/P: Tolerating TF via corpak at goal. Continue TF at current rate, monitor labs. Speech evaluation today Ischemia of hand 06/01/2015 06/05/2015 Overview: Radial a line removed- good doppler signals Dexter ndiaye placed Heparin infusion for goal pTT 45-55. Ischemia of lower extremity 06/01/2015 06/08/2015 Overview: Left lower extremity ischemia, has regained DP/PT doppler signals, but calf muscles remains somewhat tense. A/P: CKs normalizing, will stop following CK levels at this time. Vascular surgery signing off, appreciate assistance. 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 Radial art line was in LUE. Art line removed and arterial duplex showed radial artery thrombosis with patent ulnar artery. Pt now with strong pulse in L radial artery. Thrombocytopenia 06/01/2015 06/08/2015 Overview: Required massive transfusion after OR, placed on VA ECMO. Likely consumptive coagulopathy, however PF4 antibody sent given recent initiation of heparin IV. A/P: -Appears to be resolving, platelets 98,000 today. Cardiac insufficiency follow ing cardiac surgery 05/30/2015 06/15/2015 Overview: Severe RV, arrived from OR on iflolan and Epi. iFlolan weaned off A/P: Off epi and iFlolan. Open chest wound 05/30/2015 06/11/2015 Overview: S/p Lung Tx A/P: Dressing intact, continue ATBX while chest is open. Possible closure today Volume overload 05/30/2015 09/02/2015 Overview: + fluid balance due to multiple transfusions and volume replacement for shock in the early post op period. A/P: - 1.9 L/24hr. Continue diuresis, monitor UOP and labs. Personal history of ECMO 05/30/201502/2015 Overview: VV ECMO on 05/30, Transitioned to VA ECMO 05/31. VA ECMO weaned 06/03, back on VV ECMO Decannulated on 06/15. Stress hyperglycemia 05/30/2015 015 Overview: S/P Lung Tx A/P: Stress hyperglycemia exacerbated by surgery and pressors. RHI infusion for glycemic control. Shock liver - hepatic insufficiency 05/30/2015 06/05/2015 Overview: Markedly elevated LFTs, persistent coagulopathy and bleeding despite near- continuous trasnfusion of blood products. Also recurrent hypoglycemia requiring D50 boluses and D10W infusion. A/P: LFTs downtrending. 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 Progressively hypoxemic after arrival to ICU despite maximal MV support with lung protective ventilation and inhaled epoprostenol. NMB, inverted I:E ratio, high PEEP, low Vt with permissive hypercapnia only helped transiently. VV ECMO placed. Optimize vent settings, BPH, pain control, VV ECMO. Worsening lung compliance d/t hypervolemia (pulm edema) and/ or PGD. Continues on iFlolan. Switched to VA ECMO but maintaining very low Vt plus high PEEP. 06/03 Washout with VA ECMO weaned. VV ECMO initiated. S/p ECMO decannulation 06/15. S/p trach 06/19. Tolerated ~>11hrs on 07/06, but CXR with increased atelectasis following. A/P: CXR with bilateral opacities. Tolerating TC ATC. Continue TC, BPH, pain control, OOB. Consumption coagulopathy 05/29/2015 Overview: S/P Lung Transplant. Severe coagulopathic bleeding intraop and immediately postop. Received multiple blood products - plts, cryoppt, FFP and prbcs. Also rewarming for postop hypothermia. A/P: 4u pRBC and 2u platelets distribution coordinator to OR. PF4 antibody negative Chest remains open. Hypotension 05/29/2015 06/15/2015 Overview: Post Lung Tx. Severely vasoplegic intraop and immediately postop requiring multiple inopressors. Received methylene blue bolus intraop. Arrived ICU on epi, norepi, vasopressin and phenylephrine was added in ICU to maintain MAP >60mmHg. Wean for MAP 65 or greater. A/P: Off epi. Maintain MAPs 65-75. Acute blood loss anemia 05/29/201508/12 Overview: H/H remains low but stable. 07/10: H/H 6.6/21--transfused 1 unit 07/11: Transfused for 6.8/21.3 A/P: Monitor H/H, transfuse prn. Acute postoperative pain 05/29/2015 Overview: Post op lung Tx A/P: Dilaudid and acetaminophen prn for pain Hypothermia following anesthesia 05/29/2015 06/02/2015 Overview: 05/30/2015 Rewarming with forced warm air blanket Lactic acidosis 05/29/2015 06/03/2015 Overview: S/P Lung Tx A/P: Resolved with lactate levels of 1.2 today Right heart failure, NYHA class 4 04/27/2015 08/21/2015 Right heart failure due to p ulmonary hypertension 04/21/2015 06/02/2015 Overview: Patient with right heart failure stigmata (JVD, ascites and lower extremity edema). BP has been on the lower side. Oxygen requirement increased to 3L from 2 L Plan: - Will get repeat Echo with bubble study (last one from January 2015). - Place a PA cath and continue to diurese while monitoring her right heart pressures. - Will need IV lasix-received 80 IV lasix on 04/20 and 100 IV lasix on 04/21 - Continue spironolactone. JAMES (acute kidney injury) 04/21/2015 Overview: Baseline Cr 0.9 (04/09) -> Cr up to 2.4. A/P: JAMES is likely 2/2 ATN given hypotension and hemorrhage. Balance volume repletion with diuresis --> Cr continues to downtrend 1.92 -->1.37 today. Nephrology following - Maintain MAP 65 or greater, avoid nephrotoxic agents. Continue Lasix drip Hyponatremia with excess ext racellular fluid volume 04/21/2015 06/02/2015 Overview: Likely hypervolemic hyponatremia. Na improved form 126 to 130 this am. Patient is already on torsemide, spironolactone and metolazone at home. Plan: - Continue to diurese as kidney function allows. Palpitations 12/24/2014 08/21/2015 Hypoxemia 07/28/2014 08/21/2015 Vocal cord paralysis 03/31/2014 015 CTEPH (chronic thromboemboli c pulmonary hypertension) 04/29/2013 06/02/2015 Overview: - Will continue home meds including Bosentan, Tadalafil and Treprostinil. - O2 requirements as needed (uses 2L NC at home at night). - Continue home O2 - Patient was seen by lung transplant team. Tests required include: Quantitative perfusion scan (done) Gastric emptying study, esophageal manometry and 24hr pH study (ordered) Dental consultation (will need to call ) Social Work (on board) Iron deficiency anemia 01/25/201304/11 Overview: Menstruating female with iron deficiency Cardiomegaly 01/25/2013 09/02/2015 Overview: -- RV enlargement due to PH Exertional dyspnea 01/25/2013 5 Mediastinal adenopathy 01/25/201308/21 Hilar adenopathy 01/25/2013 08/21/2015 Overview: Noted on imaging- mother with a history of Sarcoid Could be 2/2 to chronic VTE and pHTN Lung nodules 01/25/2013 09/02/2015 Overview: Noted on imaging Follow Anticoagulation management encounter 01/25/2013 01/26/2013 SUMMARY 01/24/2013 02/02/2013 Overview: This is a 17 year old female with no significant PMH other than migraine and minimal allergies who developed significant SOB within the past 2 months, this progressed to the point where she was unable to walk up 2 flights of stairs and had mild chest pressure with activty. This worsened on a recent trip to [place] where she was on a 6 hour plane ride leading to a near syncopal episode. She presented ot her PCP for fatigue and was found to have anemia, elevated WBC count and on echo a elevated RVSP and dilated RV. She was sent for CT at her local Ed where she was found to have 2 small PE's. Patient sent for further evaluation. At admission upon review of her Ct there is no PE noted, she does however have significant cardiomegaly, increase RVSP and right atrial dilatation, will need to work up cause of PAH PAH (pulmonary artery hypertension) 01/24/2013 08/21/2015 Overview: Found to have elevated RVSP on echo with RV dilatation. ? Sarcoid as she has a family hx as well as polyarthralgia and fatigue - now with hilar lymphadenopathy RHC revealing PA HTN. 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 as angio was suggestive of multiple PEs small and chronic Plan: Further Remodulin titration as an out-patient q weekly, now on 7.5 ng/kg/min PET scan for VALERIA in the chest complete 02/07 Night sweats 01/24/2013 08/21/2015 Overview: Unclear etiology- Awaiting further PAH workup and Rheum w/u is neg so far documented as of this encounter (statuses as of 08/02/2023) [facility]04[facility] History of Past illness Narrative* Problem Noted Date Diagnosed Date Resolved Date Abnormality of gait 12/24/2015 04/11/20 17 Ascites 07/13/2015 08/21/2015 Overview: Abdominal distension 07/09 KUB: air in stomach, repeat on 07/11: no dilated loops of bowel 07/11: US abdomen + ascites 07/13 Paracentesis ~ 2L straw colored fluid A/P: Abdomen soft, distended. No c/o abd. fullness. Monitor. Seizure 06/22/2015 08/21/2015 Overview: 06/22/2015 0230 Sudden new onset seizures - with generalized rhythmic contractions of all extremities plus facial twitching. Treated lorazepam and midazolam. Stat head CT negative for bleed. No acute metabolic changes on ABG. Concern for withdrawal from opioids - had been on high dose fentanyl infusion for 3 weeks -infusion d'tabitha on 06/18/15. Neuro consulted and continuous EEG monitoring ordered. Cont vEEG showing mild diffuse encephalopathy but no epileptiform form activity. A/P:: No seizure activity since 06/22. Keppra discontinued per ALD. Abdominal distension 06/15/2015 015 Overview: TF held. KUB pending. Fever 06/08/2015 08/21/2015 Overview: S/p CT chest/abd 06/18, which showed RLL collapse, with findings suggestive of necrotic PNA, and scattered upper lobe opacities; moderate ascites, cholelithiasis and gallbladder sludging without cholecystitis. Remains afebrile. No leukocytosis. - Urine cx (06/07), neg; Bld cx (06/11) x2 - NGTD - One blood culture (06/06) grew lactobacillus - Bld/UA cx drawn (06/16) - neg - BAL cx (06/20): smear shows GPC in clusters - Bld cx (06/21) NGTD Plan: - Meropenem stopped on 06/22 - Cont PO Vancomycin through hospitalization - F/u BAL cx (06/20) - Smear currently shows GPC in clusters but no organisms on culture; in the setting of resurgence of fevers, restarted on IV Vanc on 06/18->. Continue Vancomycin oral Mild protein-calorie malnutrition 06/04/2015 04/11/2017 Overview: Nutrition following. Ice chips only per beside swallow evaluation. Advanced to popcicle and applesauce 07/19 A/P: Tolerating TF via corpak at goal. Continue TF at current rate, monitor labs. Speech evaluation today Ischemia of hand 06/01/2015 06/05/2015 Overview: Radial a line removed- good doppler signals Roroberto ndiaye placed Heparin infusion for goal pTT 45-55. Ischemia of lower extremity 06/01/2015 06/08/2015 Overview: Left lower extremity ischemia, has regained DP/PT doppler signals, but calf muscles remains somewhat tense. A/P: CKs normalizing, will stop following CK levels at this time. Vascular surgery signing off, appreciate assistance. 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 Radial art line was in LUE. Art line removed and arterial duplex showed radial artery thrombosis with patent ulnar artery. Pt now with strong pulse in L radial artery. Thrombocytopenia 06/01/2015 06/08/2015 Overview: Required massive transfusion after OR, placed on VA ECMO. Likely consumptive coagulopathy, however PF4 antibody sent given recent initiation of heparin IV. A/P: -Appears to be resolving, platelets 98,000 today. Cardiac insufficiency follow ing cardiac surgery 05/30/2015 06/15/2015 Overview: Severe RV, arrived from OR on iflolan and Epi. iFlolan weaned off A/P: Off epi and iFlolan. Open chest wound 05/30/2015 06/11/2015 Overview: S/p Lung Tx A/P: Dressing intact, continue ATBX while chest is open. Possible closure today Volume overload 05/30/2015 09/02/2015 Overview: + fluid balance due to multiple transfusions and volume replacement for shock in the early post op period. A/P: - 1.9 L/24hr. Continue diuresis, monitor UOP and labs. Personal history of ECMO 05/30/201502/2015 Overview: VV ECMO on 05/30, Transitioned to VA ECMO 05/31. VA ECMO weaned 06/03, back on VV ECMO Decannulated on 06/15. Stress hyperglycemia 05/30/2015 015 Overview: S/P Lung Tx A/P: Stress hyperglycemia exacerbated by surgery and pressors. RHI infusion for glycemic control. Shock liver - hepatic insufficiency 05/30/2015 06/05/2015 Overview: Markedly elevated LFTs, persistent coagulopathy and bleeding despite near- continuous trasnfusion of blood products. Also recurrent hypoglycemia requiring D50 boluses and D10W infusion. A/P: LFTs downtrending. 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 Progressively hypoxemic after arrival to ICU despite maximal MV support with lung protective ventilation and inhaled epoprostenol. NMB, inverted I:E ratio, high PEEP, low Vt with permissive hypercapnia only helped transiently. VV ECMO placed. Optimize vent settings, BPH, pain control, VV ECMO. Worsening lung compliance d/t hypervolemia (pulm edema) and/ or PGD. Continues on iFlolan. Switched to VA ECMO but maintaining very low Vt plus high PEEP. 06/03 Washout with VA ECMO weaned. VV ECMO initiated. S/p ECMO decannulation 06/15. S/p trach 06/19. Tolerated ~>11hrs on 07/06, but CXR with increased atelectasis following. A/P: CXR with bilateral opacities. Tolerating TC ATC. Continue TC, BPH, pain control, OOB. Consumption coagulopathy 05/29/2015 Overview: S/P Lung Transplant. Severe coagulopathic bleeding intraop and immediately postop. Received multiple blood products - plts, cryoppt, FFP and prbcs. Also rewarming for postop hypothermia. A/P: 4u pRBC and 2u platelets distribution coordinator to OR. PF4 antibody negative Chest remains open. Hypotension 05/29/2015 06/15/2015 Overview: Post Lung Tx. Severely vasoplegic intraop and immediately postop requiring multiple inopressors. Received methylene blue bolus intraop. Arrived ICU on epi, norepi, vasopressin and phenylephrine was added in ICU to maintain MAP >60mmHg. Wean for MAP 65 or greater. A/P: Off epi. Maintain MAPs 65-75. Acute blood loss anemia 05/29/201508/12 Overview: H/H remains low but stable. 07/10: H/H 6.6/21--transfused 1 unit 07/11: Transfused for 6.8/21.3 A/P: Monitor H/H, transfuse prn. Acute postoperative pain 05/29/2015 Overview: Post op lung Tx A/P: Dilaudid and acetaminophen prn for pain Hypothermia following anesthesia 05/29/2015 06/02/2015 Overview: 05/30/2015 Rewarming with forced warm air blanket Lactic acidosis 05/29/2015 06/03/2015 Overview: S/P Lung Tx A/P: Resolved with lactate levels of 1.2 today Right heart failure, NYHA class 4 04/27/2015 08/21/2015 Right heart failure due to p ulmonary hypertension 04/21/2015 06/02/2015 Overview: Patient with right heart failure stigmata (JVD, ascites and lower extremity edema). BP has been on the lower side. Oxygen requirement increased to 3L from 2 L Plan: - Will get repeat Echo with bubble study (last one from January 2015). - Place a PA cath and continue to diurese while monitoring her right heart pressures. - Will need IV lasix-received 80 IV lasix on 04/20 and 100 IV lasix on 04/21 - Continue spironolactone. JAMES (acute kidney injury) 04/21/2015 Overview: Baseline Cr 0.9 (04/09) -> Cr up to 2.4. A/P: JAMES is likely 2/2 ATN given hypotension and hemorrhage. Balance volume repletion with diuresis --> Cr continues to downtrend 1.92 -->1.37 today. Nephrology following - Maintain MAP 65 or greater, avoid nephrotoxic agents. Continue Lasix drip Hyponatremia with excess ext racellular fluid volume 04/21/2015 06/02/2015 Overview: Likely hypervolemic hyponatremia. Na improved form 126 to 130 this am. Patient is already on torsemide, spironolactone and metolazone at home. Plan: - Continue to diurese as kidney function allows. Palpitations 12/24/2014 08/21/2015 Hypoxemia 07/28/2014 08/21/2015 Vocal cord paralysis 03/31/2014 015 CTEPH (chronic thromboemboli c pulmonary hypertension) 04/29/2013 06/02/2015 Overview: - Will continue home meds including Bosentan, Tadalafil and Treprostinil. - O2 requirements as needed (uses 2L NC at home at night). - Continue home O2 - Patient was seen by lung transplant team. Tests required include: Quantitative perfusion scan (done) Gastric emptying study, esophageal manometry and 24hr pH study (ordered) Dental consultation (will need to call ) Social Work (on board) Iron deficiency anemia 01/25/201304/11 Overview: Menstruating female with iron deficiency Cardiomegaly 01/25/2013 09/02/2015 Overview: -- RV enlargement due to PH Exertional dyspnea 01/25/2013 5 Mediastinal adenopathy 01/25/201308/21 Hilar adenopathy 01/25/2013 08/21/2015 Overview: Noted on imaging- mother with a history of Sarcoid Could be 2/2 to chronic VTE and pHTN Lung nodules 01/25/2013 09/02/2015 Overview: Noted on imaging Follow Anticoagulation management encounter 01/25/2013 01/26/2013 SUMMARY 01/24/2013 02/02/2013 Overview: This is a 17 year old female with no significant PMH other than migraine and minimal allergies who developed significant SOB within the past 2 months, this progressed to the point where she was unable to walk up 2 flights of stairs and had mild chest pressure with activty. This worsened on a recent trip to [place] where she was on a 6 hour plane ride leading to a near syncopal episode. She presented ot her PCP for fatigue and was found to have anemia, elevated WBC count and on echo a elevated RVSP and dilated RV. She was sent for CT at her local Ed where she was found to have 2 small PE's. Patient sent for further evaluation. At admission upon review of her Ct there is no PE noted, she does however have significant cardiomegaly, increase RVSP and right atrial dilatation, will need to work up cause of PAH PAH (pulmonary artery hypertension) 01/24/2013 08/21/2015 Overview: Found to have elevated RVSP on echo with RV dilatation. ? Sarcoid as she has a family hx as well as polyarthralgia and fatigue - now with hilar lymphadenopathy RHC revealing PA HTN. 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 as angio was suggestive of multiple PEs small and chronic Plan: Further Remodulin titration as an out-patient q weekly, now on 7.5 ng/kg/min PET scan for VALERIA in the chest complete 02/07 Night sweats 01/24/2013 08/21/2015 Overview: Unclear etiology- Awaiting further PAH workup and Rheum w/u is neg so far documented as of this encounter (statuses as of 08/02/2023) [facility] History of Past illness Narrative* Problem Noted Date Diagnosed Date Resolved Date Abnormality of gait 12/24/2015 04/11/20 17 Ascites 07/13/2015 08/21/2015 Overview: Abdominal distension 07/09 KUB: air in stomach, repeat on 07/11: no dilated loops of bowel 07/11: US abdomen + ascites 07/13 Paracentesis ~ 2L straw colored fluid A/P: Abdomen soft, distended. No c/o abd. fullness. Monitor. Seizure 06/22/2015 08/21/2015 Overview: 06/22/2015 0230 Sudden new onset seizures - with generalized rhythmic contractions of all extremities plus facial twitching. Treated lorazepam and midazolam. Stat head CT negative for bleed. No acute metabolic changes on ABG. Concern for withdrawal from opioids - had been on high dose fentanyl infusion for 3 weeks -infusion d'tabitha on 06/18/15. Neuro consulted and continuous EEG monitoring ordered. Cont vEEG showing mild diffuse encephalopathy but no epileptiform form activity. A/P:: No seizure activity since 06/22. Keppra discontinued per ALD. Abdominal distension 06/15/2015 015 Overview: TF held. KUB pending. Fever 06/08/2015 08/21/2015 Overview: S/p CT chest/abd 06/18, which showed RLL collapse, with findings suggestive of necrotic PNA, and scattered upper lobe opacities; moderate ascites, cholelithiasis and gallbladder sludging without cholecystitis. Remains afebrile. No leukocytosis. - Urine cx (06/07), neg; Bld cx (06/11) x2 - NGTD - One blood culture (06/06) grew lactobacillus - Bld/UA cx drawn (06/16) - neg - BAL cx (06/20): smear shows GPC in clusters - Bld cx (06/21) NGTD Plan: - Meropenem stopped on 06/22 - Cont PO Vancomycin through hospitalization - F/u BAL cx (06/20) - Smear currently shows GPC in clusters but no organisms on culture; in the setting of resurgence of fevers, restarted on IV Vanc on 06/18->. Continue Vancomycin oral Mild protein-calorie malnutrition 06/04/2015 04/11/2017 Overview: Nutrition following. Ice chips only per beside swallow evaluation. Advanced to popcicle and applesauce 07/19 A/P: Tolerating TF via corpak at goal. Continue TF at current rate, monitor labs. Speech evaluation today Ischemia of hand 06/01/2015 06/05/2015 Overview: Radial a line removed- good doppler signals Rooke mittens placed Heparin infusion for goal pTT 45-55. Ischemia of lower extremity 06/01/2015 06/08/2015 Overview: Left lower extremity ischemia, has regained DP/PT doppler signals, but calf muscles remains somewhat tense. A/P: CKs normalizing, will stop following CK levels at this time. Vascular surgery signing off, appreciate assistance. 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 Radial art line was in LUE. Art line removed and arterial duplex showed radial artery thrombosis with patent ulnar artery. Pt now with strong pulse in L radial artery. Thrombocytopenia 06/01/2015 06/08/2015 Overview: Required massive transfusion after OR, placed on VA ECMO. Likely consumptive coagulopathy, however PF4 antibody sent given recent initiation of heparin IV. A/P: -Appears to be resolving, platelets 98,000 today. Cardiac insufficiency follow ing cardiac surgery 05/30/2015 06/15/2015 Overview: Severe RV, arrived from OR on iflolan and Epi. iFlolan weaned off A/P: Off epi and iFlolan. Open chest wound 05/30/2015 06/11/2015 Overview: S/p Lung Tx A/P: Dressing intact, continue ATBX while chest is open. Possible closure today Volume overload 05/30/2015 09/02/2015 Overview: + fluid balance due to multiple transfusions and volume replacement for shock in the early post op period. A/P: - 1.9 L/24hr. Continue diuresis, monitor UOP and labs. Personal history of ECMO 05/30/201502/2015 Overview: VV ECMO on 05/30, Transitioned to VA ECMO 05/31. VA ECMO weaned 06/03, back on VV ECMO Decannulated on 06/15. Stress hyperglycemia 05/30/2015 015 Overview: S/P Lung Tx A/P: Stress hyperglycemia exacerbated by surgery and pressors. RHI infusion for glycemic control. Shock liver - hepatic insufficiency 05/30/2015 06/05/2015 Overview: Markedly elevated LFTs, persistent coagulopathy and bleeding despite near- continuous trasnfusion of blood products. Also recurrent hypoglycemia requiring D50 boluses and D10W infusion. A/P: LFTs downtrending. 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 Progressively hypoxemic after arrival to ICU despite maximal MV support with lung protective ventilation and inhaled epoprostenol. NMB, inverted I:E ratio, high PEEP, low Vt with permissive hypercapnia only helped transiently. VV ECMO placed. Optimize vent settings, BPH, pain control, VV ECMO. Worsening lung compliance d/t hypervolemia (pulm edema) and/ or PGD. Continues on iFlolan. Switched to VA ECMO but maintaining very low Vt plus high PEEP. 06/03 Washout with VA ECMO weaned. VV ECMO initiated. S/p ECMO decannulation 06/15. S/p trach 06/19. Tolerated ~>11hrs on 07/06, but CXR with increased atelectasis following. A/P: CXR with bilateral opacities. Tolerating TC ATC. Continue TC, BPH, pain control, OOB. Consumption coagulopathy 05/29/2015 Overview: S/P Lung Transplant. Severe coagulopathic bleeding intraop and immediately postop. Received multiple blood products - plts, cryoppt, FFP and prbcs. Also rewarming for postop hypothermia. A/P: 4u pRBC and 2u platelets distribution coordinator to OR. PF4 antibody negative Chest remains open. Hypotension 05/29/2015 06/15/2015 Overview: Post Lung Tx. Severely vasoplegic intraop and immediately postop requiring multiple inopressors. Received methylene blue bolus intraop. Arrived ICU on epi, norepi, vasopressin and phenylephrine was added in ICU to maintain MAP >60mmHg. Wean for MAP 65 or greater. A/P: Off epi. Maintain MAPs 65-75. Acute blood loss anemia 05/29/2015/2 11/2014 Overview: H/H remains low but stable. 07/10: H/H 6.6/21--transfused 1 unit 07/11: Transfused for 6.8/21.3 A/P: Monitor H/H, transfuse prn. Acute postoperative pain 05/29/2015 Overview: Post op lung Tx A/P: Dilaudid and acetaminophen prn for pain Hypothermia following anesthesia 05/29/2015 06/02/2015 Overview: 05/30/2015 Rewarming with forced warm air blanket Lactic acidosis 05/29/2015 06/03/2015 Overview: S/P Lung Tx A/P: Resolved with lactate levels of 1.2 today Right heart failure, NYHA class 4 04/27/2015 08/21/2015 Right heart failure due to p ulmonary hypertension 04/21/2015 06/02/2015 Overview: Patient with right heart failure stigmata (JVD, ascites and lower extremity edema). BP has been on the lower side. Oxygen requirement increased to 3L from 2 L Plan: - Will get repeat Echo with bubble study (last one from January 2015). - Place a PA cath and continue to diurese while monitoring her right heart pressures. - Will need IV lasix-received 80 IV lasix on 04/20 and 100 IV lasix on 04/21 - Continue spironolactone. JAMES (acute kidney injury) 04/21/2015 Overview: Baseline Cr 0.9 (04/09) -> Cr up to 2.4. A/P: JAMES is likely 2/2 ATN given hypotension and hemorrhage. Balance volume repletion with diuresis --> Cr continues to downtrend 1.92 -->1.37 today. Nephrology following - Maintain MAP 65 or greater, avoid nephrotoxic agents. Continue Lasix drip Hyponatremia with excess ext racellular fluid volume 04/21/2015 06/02/2015 Overview: Likely hypervolemic hyponatremia. Na improved form 126 to 130 this am. Patient is already on torsemide, spironolactone and metolazone at home. Plan: - Continue to diurese as kidney function allows. Palpitations 12/24/2014 08/21/2015 Hypoxemia 07/28/2014 08/21/2015 Vocal cord paralysis 03/31/2014 015 CTEPH (chronic thromboemboli c pulmonary hypertension) 04/29/2013 06/02/2015 Overview: - Will continue home meds including Bosentan, Tadalafil and Treprostinil. - O2 requirements as needed (uses 2L NC at home at night). - Continue home O2 - Patient was seen by lung transplant team. Tests required include: Quantitative perfusion scan (done) Gastric emptying study, esophageal manometry and 24hr pH study (ordered) Dental consultation (will need to call ) Social Work (on board) Iron deficiency anemia 01/25/201304/11 Overview: Menstruating female with iron deficiency Cardiomegaly 01/25/2013 09/02/2015 Overview: -- RV enlargement due to PH Exertional dyspnea 01/25/2013 5 Mediastinal adenopathy 01/25/201308/21 Hilar adenopathy 01/25/2013 08/21/2015 Overview: Noted on imaging- mother with a history of Sarcoid Could be 2/2 to chronic VTE and pHTN Lung nodules 01/25/2013 09/02/2015 Overview: Noted on imaging Follow Anticoagulation management encounter 01/25/2013 01/26/2013 SUMMARY 01/24/2013 02/02/2013 Overview: This is a 17 year old female with no significant PMH other than migraine and minimal allergies who developed significant SOB within the past 2 months, this progressed to the point where she was unable to walk up 2 flights of stairs and had mild chest pressure with activty. This worsened on a recent trip to [place] where she was on a 6 hour plane ride leading to a near syncopal episode. She presented ot her PCP for fatigue and was found to have anemia, elevated WBC count and on echo a elevated RVSP and dilated RV. She was sent for CT at her local Ed where she was found to have 2 small PE's. Patient sent for further evaluation. At admission upon review of her Ct there is no PE noted, she does however have significant cardiomegaly, increase RVSP and right atrial dilatation, will need to work up cause of PAH PAH (pulmonary artery hypertension) 01/24/2013 08/21/2015 Overview: Found to have elevated RVSP on echo with RV dilatation. ? Sarcoid as she has a family hx as well as polyarthralgia and fatigue - now with hilar lymphadenopathy RHC revealing PA HTN. 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 as angio was suggestive of multiple PEs small and chronic Plan: Further Remodulin titration as an out-patient q weekly, now on 7.5 ng/kg/min PET scan for VALERIA in the chest complete 02/07 Night sweats 01/24/2013 08/21/2015 Overview: Unclear etiology- Awaiting further PAH workup and Rheum w/u is neg so far documented as of this encounter (statuses as of 08/02/2023) [facility] History of Past illness Narrative* Problem Noted Date Diagnosed Date Resolved Date Abnormality of gait 12/24/2015 04/11/20 17 Ascites 07/13/2015 08/21/2015 Overview: Abdominal distension 07/09 KUB: air in stomach, repeat on 07/11: no dilated loops of bowel 07/11: US abdomen + ascites 07/13 Paracentesis ~ 2L straw colored fluid A/P: Abdomen soft, distended. No c/o abd. fullness. Monitor. Seizure 06/22/2015 08/21/2015 Overview: 06/22/2015 0230 Sudden new onset seizures - with generalized rhythmic contractions of all extremities plus facial twitching. Treated lorazepam and midazolam. Stat head CT negative for bleed. No acute metabolic changes on ABG. Concern for withdrawal from opioids - had been on high dose fentanyl infusion for 3 weeks -infusion d'tabitha on 06/18/15. Neuro consulted and continuous EEG monitoring ordered. Cont vEEG showing mild diffuse encephalopathy but no epileptiform form activity. A/P:: No seizure activity since 06/22. Keppra discontinued per ALD. Abdominal distension 06/15/2015 015 Overview: TF held. KUB pending. Fever 06/08/2015 08/21/2015 Overview: S/p CT chest/abd 06/18, which showed RLL collapse, with findings suggestive of necrotic PNA, and scattered upper lobe opacities; moderate ascites, cholelithiasis and gallbladder sludging without cholecystitis. Remains afebrile. No leukocytosis. - Urine cx (06/07), neg; Bld cx (06/11) x2 - NGTD - One blood culture (06/06) grew lactobacillus - Bld/UA cx drawn (06/16) - neg - BAL cx (06/20): smear shows GPC in clusters - Bld cx (06/21) NGTD Plan: - Meropenem stopped on 06/22 - Cont PO Vancomycin through hospitalization - F/u BAL cx (06/20) - Smear currently shows GPC in clusters but no organisms on culture; in the setting of resurgence of fevers, restarted on IV Vanc on 06/18->. Continue Vancomycin oral Mild protein-calorie malnutrition 06/04/2015 04/11/2017 Overview: Nutrition following. Ice chips only per beside swallow evaluation. Advanced to popcicle and applesauce 07/19 A/P: Tolerating TF via corpak at goal. Continue TF at current rate, monitor labs. Speech evaluation today Ischemia of hand 06/01/2015 06/05/2015 Overview: Radial a line removed- good doppler signals Rooke mittens placed Heparin infusion for goal pTT 45-55. Ischemia of lower extremity 06/01/2015 06/08/2015 Overview: Left lower extremity ischemia, has regained DP/PT doppler signals, but calf muscles remains somewhat tense. A/P: CKs normalizing, will stop following CK levels at this time. Vascular surgery signing off, appreciate assistance. 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 Radial art line was in LUE. Art line removed and arterial duplex showed radial artery thrombosis with patent ulnar artery. Pt now with strong pulse in L radial artery. Thrombocytopenia 06/01/2015 06/08/2015 Overview: Required massive transfusion after OR, placed on VA ECMO. Likely consumptive coagulopathy, however PF4 antibody sent given recent initiation of heparin IV. A/P: -Appears to be resolving, platelets 98,000 today. Cardiac insufficiency follow ing cardiac surgery 05/30/2015 06/15/2015 Overview: Severe RV, arrived from OR on iflolan and Epi. iFlolan weaned off A/P: Off epi and iFlolan. Open chest wound 05/30/2015 06/11/2015 Overview: S/p Lung Tx A/P: Dressing intact, continue ATBX while chest is open. Possible closure today Volume overload 05/30/2015 09/02/2015 Overview: + fluid balance due to multiple transfusions and volume replacement for shock in the early post op period. A/P: - 1.9 L/24hr. Continue diuresis, monitor UOP and labs. Personal history of ECMO 05/30/201502/2015 Overview: VV ECMO on 05/30, Transitioned to VA ECMO 05/31. VA ECMO weaned 06/03, back on VV ECMO Decannulated on 06/15. Stress hyperglycemia 05/30/2015 015 Overview: S/P Lung Tx A/P: Stress hyperglycemia exacerbated by surgery and pressors. RHI infusion for glycemic control. Shock liver - hepatic insufficiency 05/30/2015 06/05/2015 Overview: Markedly elevated LFTs, persistent coagulopathy and bleeding despite near- continuous trasnfusion of blood products. Also recurrent hypoglycemia requiring D50 boluses and D10W infusion. A/P: LFTs downtrending. Maintain MAP 65 or greater, avoid hepatotoxic agents Hypoglycemia 05/30/2015 06/02/2015 Overview: 05/31/2015 See shock liver Postoperative respiratory failure 05/29/2015 08/21/2015 Overview: S/P bilateral lung transplant on 9/18. Progressively hypoxemic after arrival to ICU despite maximal MV support with lung protective ventilation and inhaled epoprostenol. NMB, inverted I:E ratio, high PEEP, low Vt with permissive hypercapnia only helped transiently. VV ECMO placed. Optimize vent settings, BPH, pain control, VV ECMO. Worsening lung compliance d/t hypervolemia (pulm edema) and/ or PGD. Continues on iFlolan. Switched to VA ECMO but maintaining very low Vt plus high PEEP. 06/03 Washout with VA ECMO weaned. VV ECMO initiated. S/p ECMO decannulation 06/15. S/p trach 06/19. Tolerated ~>11hrs on 07/06, but CXR with increased atelectasis following. A/P: CXR with bilateral opacities. Tolerating TC ATC. Continue TC, BPH, pain control, OOB. Consumption coagulopathy 05/29/2015 Overview: S/P Lung Transplant. Severe coagulopathic bleeding intraop and immediately postop. Received multiple blood products - plts, cryoppt, FFP and prbcs. Also rewarming for postop hypothermia. A/P: 4u pRBC and 2u platelets distribution coordinator to OR. PF4 antibody negative Chest remains open. Hypotension 05/29/2015 06/15/2015 Overview: Post Lung Tx. Severely vasoplegic intraop and immediately postop requiring multiple inopressors. Received methylene blue bolus intraop. Arrived ICU on epi, norepi, vasopressin and phenylephrine was added in ICU to maintain MAP >60mmHg. Wean for MAP 65 or greater. A/P: Off epi. Maintain MAPs 65-75. Acute blood loss anemia 05/29/201508/12 Overview: H/H remains low but stable. 07/10: H/H 6.6/--transfused 1 unit 07/11: Transfused for 6.8.3 A/P: Monitor H/H, transfuse prn. Acute postoperative pain 05/29/2015 Overview: Post op lung Tx A/P: Dilaudid and acetaminophen prn for pain Hypothermia following anesthesia 05/29/2015 06/02/2015 Overview: 05/30/2015 Rewarming with forced warm air blanket Lactic acidosis 05/29/2015 06/03/2015 Overview: S/P Lung Tx A/P: Resolved with lactate levels of 1.2 today Right heart failure, NYHA class 4 04/27/2015 08/21/2015 Right heart failure due to p ulmonary hypertension 04/21/2015 06/02/2015 Overview: Patient with right heart failure stigmata (JVD, ascites and lower extremity edema). BP has been on the lower side. Oxygen requirement increased to 3L from 2 L Plan: - Will get repeat Echo with bubble study (last one from January 2015). - Place a PA cath and continue to diurese while monitoring her right heart pressures. - Will need IV lasix-received 80 IV lasix on 04/20 and 100 IV lasix on 04/21 - Continue spironolactone. JAMES (acute kidney injury) 04/21/2015 Overview: Baseline Cr 0.9 (04/09) -> Cr up to 2.4. A/P: JAMES is likely 2/2 ATN given hypotension and hemorrhage. Balance volume repletion with diuresis --> Cr continues to downtrend 1.92 -->1.37 today. Nephrology following - Maintain MAP 65 or greater, avoid nephrotoxic agents. Continue Lasix drip Hyponatremia with excess ext racellular fluid volume 04/21/2015 06/02/2015 Overview: Likely hypervolemic hyponatremia. Na improved form 126 to 130 this am. Patient is already on torsemide, spironolactone and metolazone at home. Plan: - Continue to diurese as kidney function allows. Palpitations 12/24/2014 08/21/2015 Hypoxemia 07/28/2014 08/21/2015 Vocal cord paralysis 03/31/2014 015 CTEPH (chronic thromboemboli c pulmonary hypertension) 04/29/2013 06/02/2015 Overview: - Will continue home meds including Bosentan, Tadalafil and Treprostinil. - O2 requirements as needed (uses 2L NC at home at night). - Continue home O2 - Patient was seen by lung transplant team. Tests required include: Quantitative perfusion scan (done) Gastric emptying study, esophageal manometry and 24hr pH study (ordered) Dental consultation (will need to call ) Social Work (on board) Iron deficiency anemia 01/25/201304/11 Overview: Menstruating female with iron deficiency Cardiomegaly 01/25/2013 09/02/2015 Overview: -- RV enlargement due to PH Exertional dyspnea 01/25/2013 5 Mediastinal adenopathy 01/25/201308/21 Hilar adenopathy 01/25/2013 08/21/2015 Overview: Noted on imaging- mother with a history of Sarcoid Could be 2/2 to chronic VTE and pHTN Lung nodules 01/25/2013 09/02/2015 Overview: Noted on imaging Follow Anticoagulation management encounter 01/25/2013 01/26/2013 SUMMARY 01/24/2013 02/02/2013 Overview: This is a 17 year old female with no significant PMH other than migraine and minimal allergies who developed significant SOB within the past 2 months, this progressed to the point where she was unable to walk up 2 flights of stairs and had mild chest pressure with activty. This worsened on a recent trip to [place] where she was on a 6 hour plane ride leading to a near syncopal episode. She presented ot her PCP for fatigue and was found to have anemia, elevated WBC count and on echo a elevated RVSP and dilated RV. She was sent for CT at her local Ed where she was found to have 2 small PE's. Patient sent for further evaluation. At admission upon review of her Ct there is no PE noted, she does however have significant cardiomegaly, increase RVSP and right atrial dilatation, will need to work up cause of PAH PAH (pulmonary artery hypertension) 01/24/2013 08/21/2015 Overview: Found to have elevated RVSP on echo with RV dilatation. ? Sarcoid as she has a family hx as well as polyarthralgia and fatigue - now with hilar lymphadenopathy RHC revealing PA HTN. 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 as angio was suggestive of multiple PEs small and chronic Plan: Further Remodulin titration as an out-patient q weekly, now on 7.5 ng/kg/min PET scan for VALERIA in the chest complete 02/07 Night sweats 01/24/2013 08/21/2015 Overview: Unclear etiology- Awaiting further PAH workup and Rheum w/u is neg so far documented as of this encounter (statuses as of 08/09/2023) [facility] History of Past illness Narrative* Problem Noted Date Diagnosed Date Resolved Date Abnormality of gait 12/24/2015 04/11/20 17 Ascites 07/13/2015 08/21/2015 Overview: Abdominal distension 07/09 KUB: air in stomach, repeat on 07/11: no dilated loops of bowel 07/11: US abdomen + ascites 07/13 Paracentesis ~ 2L straw colored fluid A/P: Abdomen soft, distended. No c/o abd. fullness. Monitor. Seizure 06/22/2015 08/21/2015 Overview: 06/22/2015 0230 Sudden new onset seizures - with generalized rhythmic contractions of all extremities plus facial twitching. Treated lorazepam and midazolam. Stat head CT negative for bleed. No acute metabolic changes on ABG. Concern for withdrawal from opioids - had been on high dose fentanyl infusion for 3 weeks -infusion d'tabitha on 06/18/15. Neuro consulted and continuous EEG monitoring ordered. Cont vEEG showing mild diffuse encephalopathy but no epileptiform form activity. A/P:: No seizure activity since 06/22. Keppra discontinued per ALD. Abdominal distension 06/15/2015 015 Overview: TF held. KUB pending. Fever 06/08/2015 08/21/2015 Overview: S/p CT chest/abd 06/18, which showed RLL collapse, with findings suggestive of necrotic PNA, and scattered upper lobe opacities; moderate ascites, cholelithiasis and gallbladder sludging without cholecystitis. Remains afebrile. No leukocytosis. - Urine cx (06/07), neg; Bld cx (06/11) x2 - NGTD - One blood culture (06/06) grew lactobacillus - Bld/UA cx drawn (06/16) - neg - BAL cx (06/20): smear shows GPC in clusters - Bld cx (06/21) NGTD Plan: - Meropenem stopped on 06/22 - Cont PO Vancomycin through hospitalization - F/u BAL cx (06/20) - Smear currently shows GPC in clusters but no organisms on culture; in the setting of resurgence of fevers, restarted on IV Vanc on 06/18->. Continue Vancomycin oral Mild protein-calorie malnutrition 06/04/2015 04/11/2017 Overview: Nutrition following. Ice chips only per beside swallow evaluation. Advanced to popcicle and applesauce 07/19 A/P: Tolerating TF via corpak at goal. Continue TF at current rate, monitor labs. Speech evaluation today Ischemia of hand 06/01/2015 06/05/2015 Overview: Radial a line removed- good doppler signals Rooke mittens placed Heparin infusion for goal pTT 45-55. Ischemia of lower extremity 06/01/2015 06/08/2015 Overview: Left lower extremity ischemia, has regained DP/PT doppler signals, but calf muscles remains somewhat tense. A/P: CKs normalizing, will stop following CK levels at this time. Vascular surgery signing off, appreciate assistance. 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 Radial art line was in LUE. Art line removed and arterial duplex showed radial artery thrombosis with patent ulnar artery. Pt now with strong pulse in L radial artery. Thrombocytopenia 06/01/2015 06/08/2015 Overview: Required massive transfusion after OR, placed on VA ECMO. Likely consumptive coagulopathy, however PF4 antibody sent given recent initiation of heparin IV. A/P: -Appears to be resolving, platelets 98,000 today. Cardiac insufficiency follow ing cardiac surgery 05/30/2015 06/15/2015 Overview: Severe RV, arrived from OR on iflolan and Epi. iFlolan weaned off A/P: Off epi and iFlolan. Open chest wound 05/30/2015 06/11/2015 Overview: S/p Lung Tx A/P: Dressing intact, continue ATBX while chest is open. Possible closure today Volume overload 05/30/2015 09/02/2015 Overview: + fluid balance due to multiple transfusions and volume replacement for shock in the early post op period. A/P: - 1.9 L/24hr. Continue diuresis, monitor UOP and labs. Personal history of ECMO 05/30/201502/2015 Overview: VV ECMO on 05/30, Transitioned to VA ECMO 05/31. VA ECMO weaned 06/03, back on VV ECMO Decannulated on 06/15. Stress hyperglycemia 05/30/2015 015 Overview: S/P Lung Tx A/P: Stress hyperglycemia exacerbated by surgery and pressors. RHI infusion for glycemic control. Shock liver - hepatic insufficiency 05/30/2015 06/05/2015 Overview: Markedly elevated LFTs, persistent coagulopathy and bleeding despite near- continuous trasnfusion of blood products. Also recurrent hypoglycemia requiring D50 boluses and D10W infusion. A/P: LFTs downtrending. 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 Progressively hypoxemic after arrival to ICU despite maximal MV support with lung protective ventilation and inhaled epoprostenol. NMB, inverted I:E ratio, high PEEP, low Vt with permissive hypercapnia only helped transiently. VV ECMO placed. Optimize vent settings, BPH, pain control, VV ECMO. Worsening lung compliance d/t hypervolemia (pulm edema) and/ or PGD. Continues on iFlolan. Switched to VA ECMO but maintaining very low Vt plus high PEEP. 06/03 Washout with VA ECMO weaned. VV ECMO initiated. S/p ECMO decannulation 06/15. S/p trach 06/19. Tolerated ~>11hrs on 07/06, but CXR with increased atelectasis following. A/P: CXR with bilateral opacities. Tolerating TC ATC. Continue TC, BPH, pain control, OOB. Consumption coagulopathy 05/29/2015 Overview: S/P Lung Transplant. Severe coagulopathic bleeding intraop and immediately postop. Received multiple blood products - plts, cryoppt, FFP and prbcs. Also rewarming for postop hypothermia. A/P: 4u pRBC and 2u platelets distribution coordinator to OR. PF4 antibody negative Chest remains open. Hypotension 05/29/2015 06/15/2015 Overview: Post Lung Tx. Severely vasoplegic intraop and immediately postop requiring multiple inopressors. Received methylene blue bolus intraop. Arrived ICU on epi, norepi, vasopressin and phenylephrine was added in ICU to maintain MAP >60mmHg. Wean for MAP 65 or greater. A/P: Off epi. Maintain MAPs 65-75. Acute blood loss anemia 05/29/201508/12 Overview: H/H remains low but stable. 07/10: H/H 6.6/21--transfused 1 unit 07/11: Transfused for 6.8.3 A/P: Monitor H/H, transfuse prn. Acute postoperative pain 05/29/2015 Overview: Post op lung Tx A/P: Dilaudid and acetaminophen prn for pain Hypothermia following anesthesia 05/29/2015 06/02/2015 Overview: 05/30/2015 Rewarming with forced warm air blanket Lactic acidosis 05/29/2015 06/03/2015 Overview: S/P Lung Tx A/P: Resolved with lactate levels of 1.2 today Right heart failure, NYHA class 4 04/27/2015 08/21/2015 Right heart failure due to p ulmonary hypertension 04/21/2015 06/02/2015 Overview: Patient with right heart failure stigmata (JVD, ascites and lower extremity edema). BP has been on the lower side. Oxygen requirement increased to 3L from 2 L Plan: - Will get repeat Echo with bubble study (last one from January 2015). - Place a PA cath and continue to diurese while monitoring her right heart pressures. - Will need IV lasix-received 80 IV lasix on 04/20 and 100 IV lasix on 04/21 - Continue spironolactone. JAMES (acute kidney injury) 04/21/2015 Overview: Baseline Cr 0.9 (04/09) -> Cr up to 2.4. A/P: JAMES is likely 2/2 ATN given hypotension and hemorrhage. Balance volume repletion with diuresis --> Cr continues to downtrend 1.92 -->1.37 today. Nephrology following - Maintain MAP 65 or greater, avoid nephrotoxic agents. Continue Lasix drip Hyponatremia with excess ext racellular fluid volume 04/21/2015 06/02/2015 Overview: Likely hypervolemic hyponatremia. Na improved form 126 to 130 this am. Patient is already on torsemide, spironolactone and metolazone at home. Plan: - Continue to diurese as kidney function allows. Palpitations 12/24/2014 08/21/2015 Hypoxemia 07/28/2014 08/21/2015 Vocal cord paralysis 03/31/2014 015 CTEPH (chronic thromboemboli c pulmonary hypertension) 04/29/2013 06/02/2015 Overview: - Will continue home meds including Bosentan, Tadalafil and Treprostinil. - O2 requirements as needed (uses 2L NC at home at night). - Continue home O2 - Patient was seen by lung transplant team. Tests required include: Quantitative perfusion scan (done) Gastric emptying study, esophageal manometry and 24hr pH study (ordered) Dental consultation (will need to call ) Social Work (on board) Iron deficiency anemia 01/25/201304/11 Overview: Menstruating female with iron deficiency Cardiomegaly 01/25/2013 09/02/2015 Overview: -- RV enlargement due to PH Exertional dyspnea 01/25/2013 5 Mediastinal adenopathy 01/25/201308/21 Hilar adenopathy 01/25/2013 08/21/2015 Overview: Noted on imaging- mother with a history of Sarcoid Could be 2/2 to chronic VTE and pHTN Lung nodules 01/25/2013 09/02/2015 Overview: Noted on imaging Follow Anticoagulation management encounter 01/25/2013 01/26/2013 SUMMARY 01/24/2013 02/02/2013 Overview: This is a 17 year old female with no significant PMH other than migraine and minimal allergies who developed significant SOB within the past 2 months, this progressed to the point where she was unable to walk up 2 flights of stairs and had mild chest pressure with activty. This worsened on a recent trip to [place] where she was on a 6 hour plane ride leading to a near syncopal episode. She presented ot her PCP for fatigue and was found to have anemia, elevated WBC count and on echo a elevated RVSP and dilated RV. She was sent for CT at her local Ed where she was found to have 2 small PE's. Patient sent for further evaluation. At admission upon review of her Ct there is no PE noted, she does however have significant cardiomegaly, increase RVSP and right atrial dilatation, will need to work up cause of PAH PAH (pulmonary artery hypertension) 01/24/2013 08/21/2015 Overview: Found to have elevated RVSP on echo with RV dilatation. ? Sarcoid as she has a family hx as well as polyarthralgia and fatigue - now with hilar lymphadenopathy RHC revealing PA HTN. 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 as angio was suggestive of multiple PEs small and chronic Plan: Further Remodulin titration as an out-patient q weekly, now on 7.5 ng/kg/min PET scan for VALERIA in the chest complete 02/07 Night sweats 01/24/2013 08/21/2015 Overview: Unclear etiology- Awaiting further PAH workup and Rheum w/u is neg so far documented as of this encounter (statuses as of 08/09/2023) [facility] History of Past illness Narrative* Problem Noted Date Diagnosed Date Resolved Date Abnormality of gait 12/24/2015 04/11/20 17 Ascites 07/13/2015 08/21/2015 Overview: Abdominal distension 07/09 KUB: air in stomach, repeat on 07/11: no dilated loops of bowel 07/11: US abdomen + ascites 07/13 Paracentesis ~ 2L straw colored fluid A/P: Abdomen soft, distended. No c/o abd. fullness. Monitor. Seizure 06/22/2015 08/21/2015 Overview: 06/22/2015 0230 Sudden new onset seizures - with generalized rhythmic contractions of all extremities plus facial twitching. Treated lorazepam and midazolam. Stat head CT negative for bleed. No acute metabolic changes on ABG. Concern for withdrawal from opioids - had been on high dose fentanyl infusion for 3 weeks -infusion d'tabitha on 06/18/15. Neuro consulted and continuous EEG monitoring ordered. Cont vEEG showing mild diffuse encephalopathy but no epileptiform form activity. A/P:: No seizure activity since 06/22. Keppra discontinued per ALD. Abdominal distension 06/15/2015 015 Overview: TF held. KUB pending. Fever 06/08/2015 08/21/2015 Overview: S/p CT chest/abd 06/18, which showed RLL collapse, with findings suggestive of necrotic PNA, and scattered upper lobe opacities; moderate ascites, cholelithiasis and gallbladder sludging without cholecystitis. Remains afebrile. No leukocytosis. - Urine cx (06/07), neg; Bld cx (06/11) x2 - NGTD - One blood culture (06/06) grew lactobacillus - Bld/UA cx drawn (06/16) - neg - BAL cx (06/20): smear shows GPC in clusters - Bld cx (06/21) NGTD Plan: - Meropenem stopped on 06/22 - Cont PO Vancomycin through hospitalization - F/u BAL cx (06/20) - Smear currently shows GPC in clusters but no organisms on culture; in the setting of resurgence of fevers, restarted on IV Vanc on 06/18->. Continue Vancomycin oral Mild protein-calorie malnutrition 06/04/2015 04/11/2017 Overview: Nutrition following. Ice chips only per beside swallow evaluation. Advanced to popcicle and applesauce 07/19 A/P: Tolerating TF via corpak at goal. Continue TF at current rate, monitor labs. Speech evaluation today Ischemia of hand 06/01/2015 06/05/2015 Overview: Radial a line removed- good doppler signals Dexter ndiaye placed Heparin infusion for goal pTT 45-55. Ischemia of lower extremity 06/01/2015 06/08/2015 Overview: Left lower extremity ischemia, has regained DP/PT doppler signals, but calf muscles remains somewhat tense. A/P: CKs normalizing, will stop following CK levels at this time. Vascular surgery signing off, appreciate assistance. 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 Radial art line was in LUE. Art line removed and arterial duplex showed radial artery thrombosis with patent ulnar artery. Pt now with strong pulse in L radial artery. Thrombocytopenia 06/01/2015 06/08/2015 Overview: Required massive transfusion after OR, placed on VA ECMO. Likely consumptive coagulopathy, however PF4 antibody sent given recent initiation of heparin IV. A/P: -Appears to be resolving, platelets 98,000 today. Cardiac insufficiency follow ing cardiac surgery 05/30/2015 06/15/2015 Overview: Severe RV, arrived from OR on iflolan and Epi. iFlolan weaned off A/P: Off epi and iFlolan. Open chest wound 05/30/2015 06/11/2015 Overview: S/p Lung Tx A/P: Dressing intact, continue ATBX while chest is open. Possible closure today Volume overload 05/30/2015 09/02/2015 Overview: + fluid balance due to multiple transfusions and volume replacement for shock in the early post op period. A/P: - 1.9 L/24hr. Continue diuresis, monitor UOP and labs. Personal history of ECMO 05/30/201502/2015 Overview: VV ECMO on 05/30, Transitioned to VA ECMO 05/31. VA ECMO weaned 06/03, back on VV ECMO Decannulated on 06/15. Stress hyperglycemia 05/30/2015 015 Overview: S/P Lung Tx A/P: Stress hyperglycemia exacerbated by surgery and pressors. RHI infusion for glycemic control. Shock liver - hepatic insufficiency 05/30/2015 06/05/2015 Overview: Markedly elevated LFTs, persistent coagulopathy and bleeding despite near- continuous trasnfusion of blood products. Also recurrent hypoglycemia requiring D50 boluses and D10W infusion. A/P: LFTs downtrending. 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 Progressively hypoxemic after arrival to ICU despite maximal MV support with lung protective ventilation and inhaled epoprostenol. NMB, inverted I:E ratio, high PEEP, low Vt with permissive hypercapnia only helped transiently. VV ECMO placed. Optimize vent settings, BPH, pain control, VV ECMO. Worsening lung compliance d/t hypervolemia (pulm edema) and/ or PGD. Continues on iFlolan. Switched to VA ECMO but maintaining very low Vt plus high PEEP. 06/03 Washout with VA ECMO weaned. VV ECMO initiated. S/p ECMO decannulation 06/15. S/p trach 06/19. Tolerated ~>11hrs on 07/06, but CXR with increased atelectasis following. A/P: CXR with bilateral opacities. Tolerating TC ATC. Continue TC, BPH, pain control, OOB. Consumption coagulopathy 05/29/2015 Overview: S/P Lung Transplant. Severe coagulopathic bleeding intraop and immediately postop. Received multiple blood products - plts, cryoppt, FFP and prbcs. Also rewarming for postop hypothermia. A/P: 4u pRBC and 2u platelets distribution coordinator to OR. PF4 antibody negative Chest remains open. Hypotension 05/29/2015 06/15/2015 Overview: Post Lung Tx. Severely vasoplegic intraop and immediately postop requiring multiple inopressors. Received methylene blue bolus intraop. Arrived ICU on epi, norepi, vasopressin and phenylephrine was added in ICU to maintain MAP >60mmHg. Wean for MAP 65 or greater. A/P: Off epi. Maintain MAPs 65-75. Acute blood loss anemia 05/29/201508/12 Overview: H/H remains low but stable. 07/10: H/H 6.6/21--transfused 1 unit 07/11: Transfused for 6.8.3 A/P: Monitor H/H, transfuse prn. Acute postoperative pain 05/29/2015 Overview: Post op lung Tx A/P: Dilaudid and acetaminophen prn for pain Hypothermia following anesthesia 05/29/2015 06/02/2015 Overview: 05/30/2015 Rewarming with forced warm air blanket Lactic acidosis 05/29/2015 06/03/2015 Overview: S/P Lung Tx A/P: Resolved with lactate levels of 1.2 today Right heart failure, NYHA class 4 04/27/2015 08/21/2015 Right heart failure due to p ulmonary hypertension 04/21/2015 06/02/2015 Overview: Patient with right heart failure stigmata (JVD, ascites and lower extremity edema). BP has been on the lower side. Oxygen requirement increased to 3L from 2 L Plan: - Will get repeat Echo with bubble study (last one from January 2015). - Place a PA cath and continue to diurese while monitoring her right heart pressures. - Will need IV lasix-received 80 IV lasix on 04/20 and 100 IV lasix on 04/21 - Continue spironolactone. JAMES (acute kidney injury) 04/21/2015 Overview: Baseline Cr 0.9 (04/09) -> Cr up to 2.4. A/P: JAMES is likely 2/2 ATN given hypotension and hemorrhage. Balance volume repletion with diuresis --> Cr continues to downtrend 1.92 -->1.37 today. Nephrology following - Maintain MAP 65 or greater, avoid nephrotoxic agents. Continue Lasix drip Hyponatremia with excess ext racellular fluid volume 04/21/2015 06/02/2015 Overview: Likely hypervolemic hyponatremia. Na improved form 126 to 130 this am. Patient is already on torsemide, spironolactone and metolazone at home. Plan: - Continue to diurese as kidney function allows. Palpitations 12/24/2014 08/21/2015 Hypoxemia 07/28/2014 08/21/2015 Vocal cord paralysis 03/31/2014 015 CTEPH (chronic thromboemboli c pulmonary hypertension) 04/29/2013 06/02/2015 Overview: - Will continue home meds including Bosentan, Tadalafil and Treprostinil. - O2 requirements as needed (uses 2L NC at home at night). - Continue home O2 - Patient was seen by lung transplant team. Tests required include: Quantitative perfusion scan (done) Gastric emptying study, esophageal manometry and 24hr pH study (ordered) Dental consultation (will need to call ) Social Work (on board) Iron deficiency anemia 01/25/201304/11 Overview: Menstruating female with iron deficiency Cardiomegaly 01/25/2013 09/02/2015 Overview: -- RV enlargement due to PH Exertional dyspnea 01/25/2013 5 Mediastinal adenopathy 01/25/201308/21 Hilar adenopathy 01/25/2013 08/21/2015 Overview: Noted on imaging- mother with a history of Sarcoid Could be 2/2 to chronic VTE and pHTN Lung nodules 01/25/2013 09/02/2015 Overview: Noted on imaging Follow Anticoagulation management encounter 01/25/2013 01/26/2013 SUMMARY 01/24/2013 02/02/2013 Overview: This is a 17 year old female with no significant PMH other than migraine and minimal allergies who developed significant SOB within the past 2 months, this progressed to the point where she was unable to walk up 2 flights of stairs and had mild chest pressure with activty. This worsened on a recent trip to [place] where she was on a 6 hour plane ride leading to a near syncopal episode. She presented ot her PCP for fatigue and was found to have anemia, elevated WBC count and on echo a elevated RVSP and dilated RV. She was sent for CT at her local Ed where she was found to have 2 small PE's. Patient sent for further evaluation. At admission upon review of her Ct there is no PE noted, she does however have significant cardiomegaly, increase RVSP and right atrial dilatation, will need to work up cause of PAH PAH (pulmonary artery hypertension) 01/24/2013 08/21/2015 Overview: Found to have elevated RVSP on echo with RV dilatation. ? Sarcoid as she has a family hx as well as polyarthralgia and fatigue - now with hilar lymphadenopathy RHC revealing PA HTN. 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 as angio was suggestive of multiple PEs small and chronic Plan: Further Remodulin titration as an out-patient q weekly, now on 7.5 ng/kg/min PET scan for VALERIA in the chest complete 02/07 Night sweats 01/24/2013 08/21/2015 Overview: Unclear etiology- Awaiting further PAH workup and Rheum w/u is neg so far documented as of this encounter (statuses as of 10/13/2023) [facility] History of Past illness Narrative* Problem Noted Date Diagnosed Date Resolved Date Abnormality of gait 12/24/2015 04/11/20 17 Ascites 07/13/2015 08/21/2015 Overview: Abdominal distension 07/09 KUB: air in stomach, repeat on 07/11: no dilated loops of bowel 07/11: US abdomen + ascites 07/13 Paracentesis ~ 2L straw colored fluid A/P: Abdomen soft, distended. No c/o abd. fullness. Monitor. Seizure 06/22/2015 08/21/2015 Overview: 06/22/2015 0230 Sudden new onset seizures - with generalized rhythmic contractions of all extremities plus facial twitching. Treated lorazepam and midazolam. Stat head CT negative for bleed. No acute metabolic changes on ABG. Concern for withdrawal from opioids - had been on high dose fentanyl infusion for 3 weeks -infusion d'tabitha on 06/18/15. Neuro consulted and continuous EEG monitoring ordered. Cont vEEG showing mild diffuse encephalopathy but no epileptiform form activity. A/P:: No seizure activity since 06/22. Keppra discontinued per ALD. Abdominal distension 06/15/2015 015 Overview: TF held. KUB pending. Fever 06/08/2015 08/21/2015 Overview: S/p CT chest/abd 06/18, which showed RLL collapse, with findings suggestive of necrotic PNA, and scattered upper lobe opacities; moderate ascites, cholelithiasis and gallbladder sludging without cholecystitis. Remains afebrile. No leukocytosis. - Urine cx (06/07), neg; Bld cx (06/11) x2 - NGTD - One blood culture (06/06) grew lactobacillus - Bld/UA cx drawn (06/16) - neg - BAL cx (06/20): smear shows GPC in clusters - Bld cx (06/21) NGTD Plan: - Meropenem stopped on 06/22 - Cont PO Vancomycin through hospitalization - F/u BAL cx (06/20) - Smear currently shows GPC in clusters but no organisms on culture; in the setting of resurgence of fevers, restarted on IV Vanc on 06/18->. Continue Vancomycin oral Mild protein-calorie malnutrition 06/04/2015 04/11/2017 Overview: Nutrition following. Ice chips only per beside swallow evaluation. Advanced to popcicle and applesauce 07/19 A/P: Tolerating TF via corpak at goal. Continue TF at current rate, monitor labs. Speech evaluation today Ischemia of hand 06/01/2015 06/05/2015 Overview: Radial a line removed- good doppler signals Rooke mittens placed Heparin infusion for goal pTT 45-55. Ischemia of lower extremity 06/01/2015 06/08/2015 Overview: Left lower extremity ischemia, has regained DP/PT doppler signals, but calf muscles remains somewhat tense. A/P: CKs normalizing, will stop following CK levels at this time. Vascular surgery signing off, appreciate assistance. 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 Radial art line was in LUE. Art line removed and arterial duplex showed radial artery thrombosis with patent ulnar artery. Pt now with strong pulse in L radial artery. Thrombocytopenia 06/01/2015 06/08/2015 Overview: Required massive transfusion after OR, placed on VA ECMO. Likely consumptive coagulopathy, however PF4 antibody sent given recent initiation of heparin IV. A/P: -Appears to be resolving, platelets 98,000 today. Cardiac insufficiency follow ing cardiac surgery 05/30/2015 06/15/2015 Overview: Severe RV, arrived from OR on iflolan and Epi. iFlolan weaned off A/P: Off epi and iFlolan. Open chest wound 05/30/2015 06/11/2015 Overview: S/p Lung Tx A/P: Dressing intact, continue ATBX while chest is open. Possible closure today Volume overload 05/30/2015 09/02/2015 Overview: + fluid balance due to multiple transfusions and volume replacement for shock in the early post op period. A/P: - 1.9 L/24hr. Continue diuresis, monitor UOP and labs. Personal history of ECMO 05/30/201502/2015 Overview: VV ECMO on 05/30, Transitioned to VA ECMO 05/31. VA ECMO weaned 06/03, back on VV ECMO Decannulated on 06/15. Stress hyperglycemia 05/30/2015 015 Overview: S/P Lung Tx A/P: Stress hyperglycemia exacerbated by surgery and pressors. RHI infusion for glycemic control. Shock liver - hepatic insufficiency 05/30/2015 06/05/2015 Overview: Markedly elevated LFTs, persistent coagulopathy and bleeding despite near- continuous trasnfusion of blood products. Also recurrent hypoglycemia requiring D50 boluses and D10W infusion. A/P: LFTs downtrending. 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 Progressively hypoxemic after arrival to ICU despite maximal MV support with lung protective ventilation and inhaled epoprostenol. NMB, inverted I:E ratio, high PEEP, low Vt with permissive hypercapnia only helped transiently. VV ECMO placed. Optimize vent settings, BPH, pain control, VV ECMO. Worsening lung compliance d/t hypervolemia (pulm edema) and/ or PGD. Continues on iFlolan. Switched to VA ECMO but maintaining very low Vt plus high PEEP. 06/03 Washout with VA ECMO weaned. VV ECMO initiated. S/p ECMO decannulation 06/15. S/p trach 06/19. Tolerated ~>11hrs on 07/06, but CXR with increased atelectasis following. A/P: CXR with bilateral opacities. Tolerating TC ATC. Continue TC, BPH, pain control, OOB. Consumption coagulopathy 05/29/2015 Overview: S/P Lung Transplant. Severe coagulopathic bleeding intraop and immediately postop. Received multiple blood products - plts, cryoppt, FFP and prbcs. Also rewarming for postop hypothermia. A/P: 4u pRBC and 2u platelets distribution coordinator to OR. PF4 antibody negative Chest remains open. Hypotension 05/29/2015 06/15/2015 Overview: Post Lung Tx. Severely vasoplegic intraop and immediately postop requiring multiple inopressors. Received methylene blue bolus intraop. Arrived ICU on epi, norepi, vasopressin and phenylephrine was added in ICU to maintain MAP >60mmHg. Wean for MAP 65 or greater. A/P: Off epi. Maintain MAPs 65-75. Acute blood loss anemia 05/29/201508/12 Overview: H/H remains low but stable. 07/10: H/H 6.6/21--transfused 1 unit 07/11: Transfused for 6.8/21.3 A/P: Monitor H/H, transfuse prn. Acute postoperative pain 05/29/2015 Overview: Post op lung Tx A/P: Dilaudid and acetaminophen prn for pain Hypothermia following anesthesia 05/29/2015 06/02/2015 Overview: 05/30/2015 Rewarming with forced warm air blanket Lactic acidosis 05/29/2015 06/03/2015 Overview: S/P Lung Tx A/P: Resolved with lactate levels of 1.2 today Right heart failure, NYHA class 4 04/27/2015 08/21/2015 Right heart failure due to p ulmonary hypertension 04/21/2015 06/02/2015 Overview: Patient with right heart failure stigmata (JVD, ascites and lower extremity edema). BP has been on the lower side. Oxygen requirement increased to 3L from 2 L Plan: - Will get repeat Echo with bubble study (last one from January 2015). - Place a PA cath and continue to diurese while monitoring her right heart pressures. - Will need IV lasix-received 80 IV lasix on 04/20 and 100 IV lasix on 04/21 - Continue spironolactone. JAMES (acute kidney injury) 04/21/2015 Overview: Baseline Cr 0.9 (04/09) -> Cr up to 2.4. A/P: JAMES is likely 2/2 ATN given hypotension and hemorrhage. Balance volume repletion with diuresis --> Cr continues to downtrend 1.92 -->1.37 today. Nephrology following - Maintain MAP 65 or greater, avoid nephrotoxic agents. Continue Lasix drip Hyponatremia with excess ext racellular fluid volume 04/21/2015 06/02/2015 Overview: Likely hypervolemic hyponatremia. Na improved form 126 to 130 this am. Patient is already on torsemide, spironolactone and metolazone at home. Plan: - Continue to diurese as kidney function allows. Palpitations 12/24/2014 08/21/2015 Hypoxemia 07/28/2014 08/21/2015 Vocal cord paralysis 03/31/2014 015 CTEPH (chronic thromboemboli c pulmonary hypertension) 04/29/2013 06/02/2015 Overview: - Will continue home meds including Bosentan, Tadalafil and Treprostinil. - O2 requirements as needed (uses 2L NC at home at night). - Continue home O2 - Patient was seen by lung transplant team. Tests required include: Quantitative perfusion scan (done) Gastric emptying study, esophageal manometry and 24hr pH study (ordered) Dental consultation (will need to call ) Social Work (on board) Iron deficiency anemia 01/25/201304/11 Overview: Menstruating female with iron deficiency Cardiomegaly 01/25/2013 09/02/2015 Overview: -- RV enlargement due to PH Exertional dyspnea 01/25/2013 5 Mediastinal adenopathy 01/25/201308/21 Hilar adenopathy 01/25/2013 08/21/2015 Overview: Noted on imaging- mother with a history of Sarcoid Could be 2/2 to chronic VTE and pHTN Lung nodules 01/25/2013 09/02/2015 Overview: Noted on imaging Follow Anticoagulation management encounter 01/25/2013 01/26/2013 SUMMARY 01/24/2013 02/02/2013 Overview: This is a 17 year old female with no significant PMH other than migraine and minimal allergies who developed significant SOB within the past 2 months, this progressed to the point where she was unable to walk up 2 flights of stairs and had mild chest pressure with activty. This worsened on a recent trip to [place] where she was on a 6 hour plane ride leading to a near syncopal episode. She presented ot her PCP for fatigue and was found to have anemia, elevated WBC count and on echo a elevated RVSP and dilated RV. She was sent for CT at her local Ed where she was found to have 2 small PE's. Patient sent for further evaluation. At admission upon review of her Ct there is no PE noted, she does however have significant cardiomegaly, increase RVSP and right atrial dilatation, will need to work up cause of PAH PAH (pulmonary artery hypertension) 01/24/2013 08/21/2015 Overview: Found to have elevated RVSP on echo with RV dilatation. ? Sarcoid as she has a family hx as well as polyarthralgia and fatigue - now with hilar lymphadenopathy RHC revealing PA HTN. 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 as angio was suggestive of multiple PEs small and chronic Plan: Further Remodulin titration as an out-patient q weekly, now on 7.5 ng/kg/min PET scan for VALERIA in the chest complete 02/07 Night sweats 01/24/2013 08/21/2015 Overview: Unclear etiology- Awaiting further PAH workup and Rheum w/u is neg so far documented as of this encounter (statuses as of 10/20/2023) [facility] History of Past illness Narrative* Problem Noted Date Diagnosed Date Resolved Date Abnormality of gait 12/24/2015 04/11/20 17 Ascites 07/13/2015 08/21/2015 Overview: Abdominal distension 07/09 KUB: air in stomach, repeat on 07/11: no dilated loops of bowel 07/11: US abdomen + ascites 07/13 Paracentesis ~ 2L straw colored fluid A/P: Abdomen soft, distended. No c/o abd. fullness. Monitor. Seizure 06/22/2015 08/21/2015 Overview: 06/22/2015 0230 Sudden new onset seizures - with generalized rhythmic contractions of all extremities plus facial twitching. Treated lorazepam and midazolam. Stat head CT negative for bleed. No acute metabolic changes on ABG. Concern for withdrawal from opioids - had been on high dose fentanyl infusion for 3 weeks -infusion d'tabitha on 06/18/15. Neuro consulted and continuous EEG monitoring ordered. Cont vEEG showing mild diffuse encephalopathy but no epileptiform form activity. A/P:: No seizure activity since 06/22. Keppra discontinued per ALD. Abdominal distension 06/15/2015 015 Overview: TF held. KUB pending. Fever 06/08/2015 08/21/2015 Overview: S/p CT chest/abd 06/18, which showed RLL collapse, with findings suggestive of necrotic PNA, and scattered upper lobe opacities; moderate ascites, cholelithiasis and gallbladder sludging without cholecystitis. Remains afebrile. No leukocytosis. - Urine cx (06/07), neg; Bld cx (06/11) x2 - NGTD - One blood culture (06/06) grew lactobacillus - Bld/UA cx drawn (06/16) - neg - BAL cx (06/20): smear shows GPC in clusters - Bld cx (06/21) NGTD Plan: - Meropenem stopped on 06/22 - Cont PO Vancomycin through hospitalization - F/u BAL cx (06/20) - Smear currently shows GPC in clusters but no organisms on culture; in the setting of resurgence of fevers, restarted on IV Vanc on 06/18->. Continue Vancomycin oral Mild protein-calorie malnutrition 06/04/2015 04/11/2017 Overview: Nutrition following. Ice chips only per beside swallow evaluation. Advanced to popcicle and applesauce 07/19 A/P: Tolerating TF via corpak at goal. Continue TF at current rate, monitor labs. Speech evaluation today Ischemia of hand 06/01/2015 06/05/2015 Overview: Radial a line removed- good doppler signals Dexter ndiaye placed Heparin infusion for goal pTT 45-55. Ischemia of lower extremity 06/01/2015 06/08/2015 Overview: Left lower extremity ischemia, has regained DP/PT doppler signals, but calf muscles remains somewhat tense. A/P: CKs normalizing, will stop following CK levels at this time. Vascular surgery signing off, appreciate assistance. 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 Radial art line was in LUE. Art line removed and arterial duplex showed radial artery thrombosis with patent ulnar artery. Pt now with strong pulse in L radial artery. Thrombocytopenia 06/01/2015 06/08/2015 Overview: Required massive transfusion after OR, placed on VA ECMO. Likely consumptive coagulopathy, however PF4 antibody sent given recent initiation of heparin IV. A/P: -Appears to be resolving, platelets 98,000 today. Cardiac insufficiency follow ing cardiac surgery 05/30/2015 06/15/2015 Overview: Severe RV, arrived from OR on iflolan and Epi. iFlolan weaned off A/P: Off epi and iFlolan. Open chest wound 05/30/2015 06/11/2015 Overview: S/p Lung Tx A/P: Dressing intact, continue ATBX while chest is open. Possible closure today Volume overload 05/30/2015 09/02/2015 Overview: + fluid balance due to multiple transfusions and volume replacement for shock in the early post op period. A/P: - 1.9 L/24hr. Continue diuresis, monitor UOP and labs. Personal history of ECMO 05/30/201502/2015 Overview: VV ECMO on 05/30, Transitioned to VA ECMO 05/31. VA ECMO weaned 06/03, back on VV ECMO Decannulated on 06/15. Stress hyperglycemia 05/30/2015 015 Overview: S/P Lung Tx A/P: Stress hyperglycemia exacerbated by surgery and pressors. RHI infusion for glycemic control. Shock liver - hepatic insufficiency 05/30/2015 06/05/2015 Overview: Markedly elevated LFTs, persistent coagulopathy and bleeding despite near- continuous trasnfusion of blood products. Also recurrent hypoglycemia requiring D50 boluses and D10W infusion. A/P: LFTs downtrending. 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 Progressively hypoxemic after arrival to ICU despite maximal MV support with lung protective ventilation and inhaled epoprostenol. NMB, inverted I:E ratio, high PEEP, low Vt with permissive hypercapnia only helped transiently. VV ECMO placed. Optimize vent settings, BPH, pain control, VV ECMO. Worsening lung compliance d/t hypervolemia (pulm edema) and/ or PGD. Continues on iFlolan. Switched to VA ECMO but maintaining very low Vt plus high PEEP. 06/03 Washout with VA ECMO weaned. VV ECMO initiated. S/p ECMO decannulation 06/15. S/p trach 06/19. Tolerated ~>11hrs on 07/06, but CXR with increased atelectasis following. A/P: CXR with bilateral opacities. Tolerating TC ATC. Continue TC, BPH, pain control, OOB. Consumption coagulopathy 05/29/2015 Overview: S/P Lung Transplant. Severe coagulopathic bleeding intraop and immediately postop. Received multiple blood products - plts, cryoppt, FFP and prbcs. Also rewarming for postop hypothermia. A/P: 4u pRBC and 2u platelets distribution coordinator to OR. PF4 antibody negative Chest remains open. Hypotension 05/29/2015 06/15/2015 Overview: Post Lung Tx. Severely vasoplegic intraop and immediately postop requiring multiple inopressors. Received methylene blue bolus intraop. Arrived ICU on epi, norepi, vasopressin and phenylephrine was added in ICU to maintain MAP >60mmHg. Wean for MAP 65 or greater. A/P: Off epi. Maintain MAPs 65-75. Acute blood loss anemia 05/29/201508/12 Overview: H/H remains low but stable. 07/10: H/H 6.6/21--transfused 1 unit 07/11: Transfused for 6.8/21.3 A/P: Monitor H/H, transfuse prn. Acute postoperative pain 05/29/2015 Overview: Post op lung Tx A/P: Dilaudid and acetaminophen prn for pain Hypothermia following anesthesia 05/29/2015 06/02/2015 Overview: 05/30/2015 Rewarming with forced warm air blanket Lactic acidosis 05/29/2015 06/03/2015 Overview: S/P Lung Tx A/P: Resolved with lactate levels of 1.2 today Right heart failure, NYHA class 4 04/27/2015 08/21/2015 Right heart failure due to p ulmonary hypertension 04/21/2015 06/02/2015 Overview: Patient with right heart failure stigmata (JVD, ascites and lower extremity edema). BP has been on the lower side. Oxygen requirement increased to 3L from 2 L Plan: - Will get repeat Echo with bubble study (last one from January 2015). - Place a PA cath and continue to diurese while monitoring her right heart pressures. - Will need IV lasix-received 80 IV lasix on 04/20 and 100 IV lasix on 04/21 - Continue spironolactone. JAMES (acute kidney injury) 04/21/2015 Overview: Baseline Cr 0.9 (04/09) -> Cr up to 2.4. A/P: JAMES is likely 2/2 ATN given hypotension and hemorrhage. Balance volume repletion with diuresis --> Cr continues to downtrend 1.92 -->1.37 today. Nephrology following - Maintain MAP 65 or greater, avoid nephrotoxic agents. Continue Lasix drip Hyponatremia with excess ext racellular fluid volume 04/21/2015 06/02/2015 Overview: Likely hypervolemic hyponatremia. Na improved form 126 to 130 this am. Patient is already on torsemide, spironolactone and metolazone at home. Plan: - Continue to diurese as kidney function allows. Palpitations 12/24/2014 08/21/2015 Hypoxemia 07/28/2014 08/21/2015 Vocal cord paralysis 03/31/2014 015 CTEPH (chronic thromboemboli c pulmonary hypertension) 04/29/2013 06/02/2015 Overview: - Will continue home meds including Bosentan, Tadalafil and Treprostinil. - O2 requirements as needed (uses 2L NC at home at night). - Continue home O2 - Patient was seen by lung transplant team. Tests required include: Quantitative perfusion scan (done) Gastric emptying study, esophageal manometry and 24hr pH study (ordered) Dental consultation (will need to call ) Social Work (on board) Iron deficiency anemia 01/25/201304/11 Overview: Menstruating female with iron deficiency Cardiomegaly 01/25/2013 09/02/2015 Overview: -- RV enlargement due to PH Exertional dyspnea 01/25/2013 5 Mediastinal adenopathy 01/25/201308/21 Hilar adenopathy 01/25/2013 08/21/2015 Overview: Noted on imaging- mother with a history of Sarcoid Could be 2/2 to chronic VTE and pHTN Lung nodules 01/25/2013 09/02/2015 Overview: Noted on imaging Follow Anticoagulation management encounter 01/25/2013 01/26/2013 SUMMARY 01/24/2013 02/02/2013 Overview: This is a 17 year old female with no significant PMH other than migraine and minimal allergies who developed significant SOB within the past 2 months, this progressed to the point where she was unable to walk up 2 flights of stairs and had mild chest pressure with activty. This worsened on a recent trip to [place] where she was on a 6 hour plane ride leading to a near syncopal episode. She presented ot her PCP for fatigue and was found to have anemia, elevated WBC count and on echo a elevated RVSP and dilated RV. She was sent for CT at her local Ed where she was found to have 2 small PE's. Patient sent for further evaluation. At admission upon review of her Ct there is no PE noted, she does however have significant cardiomegaly, increase RVSP and right atrial dilatation, will need to work up cause of PAH PAH (pulmonary artery hypertension) 01/24/2013 08/21/2015 Overview: Found to have elevated RVSP on echo with RV dilatation. ? Sarcoid as she has a family hx as well as polyarthralgia and fatigue - now with hilar lymphadenopathy RHC revealing PA HTN. 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 as angio was suggestive of multiple PEs small and chronic Plan: Further Remodulin titration as an out-patient q weekly, now on 7.5 ng/kg/min PET scan for VALERIA in the chest complete 02/07 Night sweats 01/24/2013 08/21/2015 Overview: Unclear etiology- Awaiting further PAH workup and Rheum w/u is neg so far documented as of this encounter (statuses as of 10/23/2023) [facility] History of Past illness Narrative* Problem Noted Date Diagnosed Date Resolved Date Abnormality of gait 12/24/2015 04/11/20 17 Ascites 07/13/2015 08/21/2015 Overview: Abdominal distension 07/09 KUB: air in stomach, repeat on 07/11: no dilated loops of bowel 07/11: US abdomen + ascites 07/13 Paracentesis ~ 2L straw colored fluid A/P: Abdomen soft, distended. No c/o abd. fullness. Monitor. Seizure 06/22/2015 08/21/2015 Overview: 06/22/2015 0230 Sudden new onset seizures - with generalized rhythmic contractions of all extremities plus facial twitching. Treated lorazepam and midazolam. Stat head CT negative for bleed. No acute metabolic changes on ABG. Concern for withdrawal from opioids - had been on high dose fentanyl infusion for 3 weeks -infusion d'tabitha on 06/18/15. Neuro consulted and continuous EEG monitoring ordered. Cont vEEG showing mild diffuse encephalopathy but no epileptiform form activity. A/P:: No seizure activity since 06/22. Keppra discontinued per ALD. Abdominal distension 06/15/2015 015 Overview: TF held. KUB pending. Fever 06/08/2015 08/21/2015 Overview: S/p CT chest/abd 06/18, which showed RLL collapse, with findings suggestive of necrotic PNA, and scattered upper lobe opacities; moderate ascites, cholelithiasis and gallbladder sludging without cholecystitis. Remains afebrile. No leukocytosis. - Urine cx (06/07), neg; Bld cx (06/11) x2 - NGTD - One blood culture (06/06) grew lactobacillus - Bld/UA cx drawn (06/16) - neg - BAL cx (06/20): smear shows GPC in clusters - Bld cx (06/21) NGTD Plan: - Meropenem stopped on 06/22 - Cont PO Vancomycin through hospitalization - F/u BAL cx (06/20) - Smear currently shows GPC in clusters but no organisms on culture; in the setting of resurgence of fevers, restarted on IV Vanc on 06/18->. Continue Vancomycin oral Mild protein-calorie malnutrition 06/04/2015 04/11/2017 Overview: Nutrition following. Ice chips only per beside swallow evaluation. Advanced to popcicle and applesauce 07/19 A/P: Tolerating TF via corpak at goal. Continue TF at current rate, monitor labs. Speech evaluation today Ischemia of hand 06/01/2015 06/05/2015 Overview: Radial a line removed- good doppler signals Rooke senthil placed Heparin infusion for goal pTT 45-55. Ischemia of lower extremity 06/01/2015 06/08/2015 Overview: Left lower extremity ischemia, has regained DP/PT doppler signals, but calf muscles remains somewhat tense. A/P: CKs normalizing, will stop following CK levels at this time. Vascular surgery signing off, appreciate assistance. 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 Radial art line was in LUE. Art line removed and arterial duplex showed radial artery thrombosis with patent ulnar artery. Pt now with strong pulse in L radial artery. Thrombocytopenia 06/01/2015 06/08/2015 Overview: Required massive transfusion after OR, placed on VA ECMO. Likely consumptive coagulopathy, however PF4 antibody sent given recent initiation of heparin IV. A/P: -Appears to be resolving, platelets 98,000 today. Cardiac insufficiency follow ing cardiac surgery 05/30/2015 06/15/2015 Overview: Severe RV, arrived from OR on iflolan and Epi. iFlolan weaned off A/P: Off epi and iFlolan. Open chest wound 05/30/2015 06/11/2015 Overview: S/p Lung Tx A/P: Dressing intact, continue ATBX while chest is open. Possible closure today Volume overload 05/30/2015 09/02/2015 Overview: + fluid balance due to multiple transfusions and volume replacement for shock in the early post op period. A/P: - 1.9 L/24hr. Continue diuresis, monitor UOP and labs. Personal history of ECMO 05/30/201502/2015 Overview: VV ECMO on 05/30, Transitioned to VA ECMO 05/31. VA ECMO weaned 06/03, back on VV ECMO Decannulated on 06/15. Stress hyperglycemia 05/30/2015 015 Overview: S/P Lung Tx A/P: Stress hyperglycemia exacerbated by surgery and pressors. RHI infusion for glycemic control. Shock liver - hepatic insufficiency 05/30/2015 06/05/2015 Overview: Markedly elevated LFTs, persistent coagulopathy and bleeding despite near- continuous trasnfusion of blood products. Also recurrent hypoglycemia requiring D50 boluses and D10W infusion. A/P: LFTs downtrending. 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 Progressively hypoxemic after arrival to ICU despite maximal MV support with lung protective ventilation and inhaled epoprostenol. NMB, inverted I:E ratio, high PEEP, low Vt with permissive hypercapnia only helped transiently. VV ECMO placed. Optimize vent settings, BPH, pain control, VV ECMO. Worsening lung compliance d/t hypervolemia (pulm edema) and/ or PGD. Continues on iFlolan. Switched to VA ECMO but maintaining very low Vt plus high PEEP. 06/03 Washout with VA ECMO weaned. VV ECMO initiated. S/p ECMO decannulation 06/15. S/p trach 06/19. Tolerated ~>11hrs on 07/06, but CXR with increased atelectasis following. A/P: CXR with bilateral opacities. Tolerating TC ATC. Continue TC, BPH, pain control, OOB. Consumption coagulopathy 05/29/2015 Overview: S/P Lung Transplant. Severe coagulopathic bleeding intraop and immediately postop. Received multiple blood products - plts, cryoppt, FFP and prbcs. Also rewarming for postop hypothermia. A/P: 4u pRBC and 2u platelets distribution coordinator to OR. PF4 antibody negative Chest remains open. Hypotension 05/29/2015 06/15/2015 Overview: Post Lung Tx. Severely vasoplegic intraop and immediately postop requiring multiple inopressors. Received methylene blue bolus intraop. Arrived ICU on epi, norepi, vasopressin and phenylephrine was added in ICU to maintain MAP >60mmHg. Wean for MAP 65 or greater. A/P: Off epi. Maintain MAPs 65-75. Acute blood loss anemia 05/29/201508/12 Overview: H/H remains low but stable. 07/10: H/H 6.6/21--transfused 1 unit 07/11: Transfused for 6.8/21.3 A/P: Monitor H/H, transfuse prn. Acute postoperative pain 05/29/2015 Overview: Post op lung Tx A/P: Dilaudid and acetaminophen prn for pain Hypothermia following anesthesia 05/29/2015 06/02/2015 Overview: 05/30/2015 Rewarming with forced warm air blanket Lactic acidosis 05/29/2015 06/03/2015 Overview: S/P Lung Tx A/P: Resolved with lactate levels of 1.2 today Right heart failure, NYHA class 4 04/27/2015 08/21/2015 Right heart failure due to p ulmonary hypertension 04/21/2015 06/02/2015 Overview: Patient with right heart failure stigmata (JVD, ascites and lower extremity edema). BP has been on the lower side. Oxygen requirement increased to 3L from 2 L Plan: - Will get repeat Echo with bubble study (last one from January 2015). - Place a PA cath and continue to diurese while monitoring her right heart pressures. - Will need IV lasix-received 80 IV lasix on 04/20 and 100 IV lasix on 04/21 - Continue spironolactone. JAMES (acute kidney injury) 04/21/2015 Overview: Baseline Cr 0.9 (04/09) -> Cr up to 2.4. A/P: JAMES is likely 2/2 ATN given hypotension and hemorrhage. Balance volume repletion with diuresis --> Cr continues to downtrend 1.92 -->1.37 today. Nephrology following - Maintain MAP 65 or greater, avoid nephrotoxic agents. Continue Lasix drip Hyponatremia with excess ext racellular fluid volume 04/21/2015 06/02/2015 Overview: Likely hypervolemic hyponatremia. Na improved form 126 to 130 this am. Patient is already on torsemide, spironolactone and metolazone at home. Plan: - Continue to diurese as kidney function allows. Palpitations 12/24/2014 08/21/2015 Hypoxemia 07/28/2014 08/21/2015 Vocal cord paralysis 03/31/2014 015 CTEPH (chronic thromboemboli c pulmonary hypertension) 04/29/2013 06/02/2015 Overview: - Will continue home meds including Bosentan, Tadalafil and Treprostinil. - O2 requirements as needed (uses 2L NC at home at night). - Continue home O2 - Patient was seen by lung transplant team. Tests required include: Quantitative perfusion scan (done) Gastric emptying study, esophageal manometry and 24hr pH study (ordered) Dental consultation (will need to call ) Social Work (on board) Iron deficiency anemia 01/25/201304/11 Overview: Menstruating female with iron deficiency Cardiomegaly 01/25/2013 09/02/2015 Overview: -- RV enlargement due to PH Exertional dyspnea 01/25/2013 5 Mediastinal adenopathy 01/25/201308/21 Hilar adenopathy 01/25/2013 08/21/2015 Overview: Noted on imaging- mother with a history of Sarcoid Could be 2/2 to chronic VTE and pHTN Lung nodules 01/25/2013 09/02/2015 Overview: Noted on imaging Follow Anticoagulation management encounter 01/25/2013 01/26/2013 SUMMARY 01/24/2013 02/02/2013 Overview: This is a 17 year old female with no significant PMH other than migraine and minimal allergies who developed significant SOB within the past 2 months, this progressed to the point where she was unable to walk up 2 flights of stairs and had mild chest pressure with activty. This worsened on a recent trip to [place] where she was on a 6 hour plane ride leading to a near syncopal episode. She presented ot her PCP for fatigue and was found to have anemia, elevated WBC count and on echo a elevated RVSP and dilated RV. She was sent for CT at her local Ed where she was found to have 2 small PE's. Patient sent for further evaluation. At admission upon review of her Ct there is no PE noted, she does however have significant cardiomegaly, increase RVSP and right atrial dilatation, will need to work up cause of PAH PAH (pulmonary artery hypertension) 01/24/2013 08/21/2015 Overview: Found to have elevated RVSP on echo with RV dilatation. ? Sarcoid as she has a family hx as well as polyarthralgia and fatigue - now with hilar lymphadenopathy RHC revealing PA HTN. 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 as angio was suggestive of multiple PEs small and chronic Plan: Further Remodulin titration as an out-patient q weekly, now on 7.5 ng/kg/min PET scan for VALERIA in the chest complete 02/07 Night sweats 01/24/2013 08/21/2015 Overview: Unclear etiology- Awaiting further PAH workup and Rheum w/u is neg so far documented as of this encounter (statuses as of 10/24/2023) [facility]04-14-2016 History of Past illness Narrative* Problem Noted Date Diagnosed Date Resolved Date Abnormality of gait 12/24/2015 04/11/20 17 Ascites 07/13/2015 08/21/2015 Overview: Abdominal distension 07/09 KUB: air in stomach, repeat on 07/11: no dilated loops of bowel 07/11: US abdomen + ascites 07/13 Paracentesis ~ 2L straw colored fluid A/P: Abdomen soft, distended. No c/o abd. fullness. Monitor. Seizure 06/22/2015 08/21/2015 Overview: 06/22/2015 0230 Sudden new onset seizures - with generalized rhythmic contractions of all extremities plus facial twitching. Treated lorazepam and midazolam. Stat head CT negative for bleed. No acute metabolic changes on ABG. Concern for withdrawal from opioids - had been on high dose fentanyl infusion for 3 weeks -infusion d'tabitha on 06/18/15. Neuro consulted and continuous EEG monitoring ordered. Cont vEEG showing mild diffuse encephalopathy but no epileptiform form activity. A/P:: No seizure activity since 06/22. Keppra discontinued per ALD. Abdominal distension 06/15/2015 015 Overview: TF held. KUB pending. Fever 06/08/2015 08/21/2015 Overview: S/p CT chest/abd 06/18, which showed RLL collapse, with findings suggestive of necrotic PNA, and scattered upper lobe opacities; moderate ascites, cholelithiasis and gallbladder sludging without cholecystitis. Remains afebrile. No leukocytosis. - Urine cx (06/07), neg; Bld cx (06/11) x2 - NGTD - One blood culture (9/26) grew lactobacillus - Bld/UA cx drawn (06/16) - neg - BAL cx (06/20): smear shows GPC in clusters - Bld cx (06/21) NGTD Plan: - Meropenem stopped on 06/22 - Cont PO Vancomycin through hospitalization - F/u BAL cx (06/20) - Smear currently shows GPC in clusters but no organisms on culture; in the setting of resurgence of fevers, restarted on IV Vanc on 06/18->. Continue Vancomycin oral Mild protein-calorie malnutrition 06/04/2015 04/11/2017 Overview: Nutrition following. Ice chips only per beside swallow evaluation. Advanced to popcicle and applesauce 07/19 A/P: Tolerating TF via corpak at goal. Continue TF at current rate, monitor labs. Speech evaluation today Ischemia of hand 06/01/2015 06/05/2015 Overview: Radial a line removed- good doppler signals Rooke mitattilas placed Heparin infusion for goal pTT 45-55. Ischemia of lower extremity 06/01/2015 06/08/2015 Overview: Left lower extremity ischemia, has regained DP/PT doppler signals, but calf muscles remains somewhat tense. A/P: CKs normalizing, will stop following CK levels at this time. Vascular surgery signing off, appreciate assistance. 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 Radial art line was in LUE. Art line removed and arterial duplex showed radial artery thrombosis with patent ulnar artery. Pt now with strong pulse in L radial artery. Thrombocytopenia 06/01/2015 06/08/2015 Overview: Required massive transfusion after OR, placed on VA ECMO. Likely consumptive coagulopathy, however PF4 antibody sent given recent initiation of heparin IV. A/P: -Appears to be resolving, platelets 98,000 today. Cardiac insufficiency follow ing cardiac surgery 05/30/2015 06/15/2015 Overview: Severe RV, arrived from OR on iflolan and Epi. iFlolan weaned off A/P: Off epi and iFlolan. Open chest wound 05/30/2015 06/11/2015 Overview: S/p Lung Tx A/P: Dressing intact, continue ATBX while chest is open. Possible closure today Volume overload 05/30/2015 09/02/2015 Overview: + fluid balance due to multiple transfusions and volume replacement for shock in the early post op period. A/P: - 1.9 L/24hr. Continue diuresis, monitor UOP and labs. Personal history of ECMO 05/30/201502/2015 Overview: VV ECMO on 05/30, Transitioned to VA ECMO 05/31. VA ECMO weaned 06/03, back on VV ECMO Decannulated on 06/15. Stress hyperglycemia 05/30/2015 015 Overview: S/P Lung Tx A/P: Stress hyperglycemia exacerbated by surgery and pressors. RHI infusion for glycemic control. Shock liver - hepatic insufficiency 05/30/2015 06/05/2015 Overview: Markedly elevated LFTs, persistent coagulopathy and bleeding despite near- continuous trasnfusion of blood products. Also recurrent hypoglycemia requiring D50 boluses and D10W infusion. A/P: LFTs downtrending. 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 Progressively hypoxemic after arrival to ICU despite maximal MV support with lung protective ventilation and inhaled epoprostenol. NMB, inverted I:E ratio, high PEEP, low Vt with permissive hypercapnia only helped transiently. VV ECMO placed. Optimize vent settings, BPH, pain control, VV ECMO. Worsening lung compliance d/t hypervolemia (pulm edema) and/ or PGD. Continues on iFlolan. Switched to VA ECMO but maintaining very low Vt plus high PEEP. 06/03 Washout with VA ECMO weaned. VV ECMO initiated. S/p ECMO decannulation 06/15. S/p trach 06/19. Tolerated ~>11hrs on 07/06, but CXR with increased atelectasis following. A/P: CXR with bilateral opacities. Tolerating TC ATC. Continue TC, BPH, pain control, OOB. Consumption coagulopathy 05/29/2015 Overview: S/P Lung Transplant. Severe coagulopathic bleeding intraop and immediately postop. Received multiple blood products - plts, cryoppt, FFP and prbcs. Also rewarming for postop hypothermia. A/P: 4u pRBC and 2u platelets distribution coordinator to OR. PF4 antibody negative Chest remains open. Hypotension 05/29/2015 06/15/2015 Overview: Post Lung Tx. Severely vasoplegic intraop and immediately postop requiring multiple inopressors. Received methylene blue bolus intraop. Arrived ICU on epi, norepi, vasopressin and phenylephrine was added in ICU to maintain MAP >60mmHg. Wean for MAP 65 or greater. A/P: Off epi. Maintain MAPs 65-75. Acute blood loss anemia 05/29/201508/12 Overview: H/H remains low but stable. 07/10: H/H 6.6/21--transfused 1 unit 07/11: Transfused for 6.8/21.3 A/P: Monitor H/H, transfuse prn. Acute postoperative pain 05/29/2015 Overview: Post op lung Tx A/P: Dilaudid and acetaminophen prn for pain Hypothermia following anesthesia 05/29/2015 06/02/2015 Overview: 05/30/2015 Rewarming with forced warm air blanket Lactic acidosis 05/29/2015 06/03/2015 Overview: S/P Lung Tx A/P: Resolved with lactate levels of 1.2 today Right heart failure, NYHA class 4 04/27/2015 08/21/2015 Right heart failure due to p ulmonary hypertension 04/21/2015 06/02/2015 Overview: Patient with right heart failure stigmata (JVD, ascites and lower extremity edema). BP has been on the lower side. Oxygen requirement increased to 3L from 2 L Plan: - Will get repeat Echo with bubble study (last one from January 2015). - Place a PA cath and continue to diurese while monitoring her right heart pressures. - Will need IV lasix-received 80 IV lasix on 04/20 and 100 IV lasix on 04/21 - Continue spironolactone. JAMES (acute kidney injury) 04/21/2015 Overview: Baseline Cr 0.9 (04/09) -> Cr up to 2.4. A/P: JAMES is likely 2/2 ATN given hypotension and hemorrhage. Balance volume repletion with diuresis --> Cr continues to downtrend 1.92 -->1.37 today. Nephrology following - Maintain MAP 65 or greater, avoid nephrotoxic agents. Continue Lasix drip Hyponatremia with excess ext racellular fluid volume 04/21/2015 06/02/2015 Overview: Likely hypervolemic hyponatremia. Na improved form 126 to 130 this am. Patient is already on torsemide, spironolactone and metolazone at home. Plan: - Continue to diurese as kidney function allows. Palpitations 12/24/2014 08/21/2015 Hypoxemia 07/28/2014 08/21/2015 Vocal cord paralysis 03/31/2014 015 CTEPH (chronic thromboemboli c pulmonary hypertension) 04/29/2013 06/02/2015 Overview: - Will continue home meds including Bosentan, Tadalafil and Treprostinil. - O2 requirements as needed (uses 2L NC at home at night). - Continue home O2 - Patient was seen by lung transplant team. Tests required include: Quantitative perfusion scan (done) Gastric emptying study, esophageal manometry and 24hr pH study (ordered) Dental consultation (will need to call ) Social Work (on board) Iron deficiency anemia 01/25/201304/11 Overview: Menstruating female with iron deficiency Cardiomegaly 01/25/2013 09/02/2015 Overview: -- RV enlargement due to PH Exertional dyspnea 01/25/2013 5 Mediastinal adenopathy 01/25/201308/21 Hilar adenopathy 01/25/2013 08/21/2015 Overview: Noted on imaging- mother with a history of Sarcoid Could be 2/2 to chronic VTE and pHTN Lung nodules 01/25/2013 09/02/2015 Overview: Noted on imaging Follow Anticoagulation management encounter 01/25/2013 01/26/2013 SUMMARY 01/24/2013 02/02/2013 Overview: This is a 17 year old female with no significant PMH other than migraine and minimal allergies who developed significant SOB within the past 2 months, this progressed to the point where she was unable to walk up 2 flights of stairs and had mild chest pressure with activty. This worsened on a recent trip to [place] where she was on a 6 hour plane ride leading to a near syncopal episode. She presented ot her PCP for fatigue and was found to have anemia, elevated WBC count and on echo a elevated RVSP and dilated RV. She was sent for CT at her local Ed where she was found to have 2 small PE's. Patient sent for further evaluation. At admission upon review of her Ct there is no PE noted, she does however have significant cardiomegaly, increase RVSP and right atrial dilatation, will need to work up cause of PAH PAH (pulmonary artery hypertension) 01/24/2013 08/21/2015 Overview: Found to have elevated RVSP on echo with RV dilatation. ? Sarcoid as she has a family hx as well as polyarthralgia and fatigue - now with hilar lymphadenopathy RHC revealing PA HTN. 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 as angio was suggestive of multiple PEs small and chronic Plan: Further Remodulin titration as an out-patient q weekly, now on 7.5 ng/kg/min PET scan for VALERIA in the chest complete 02/07 Night sweats 01/24/2013 08/21/2015 Overview: Unclear etiology- Awaiting further PAH workup and Rheum w/u is neg so far documented as of this encounter (statuses as of 10/27/2023) [facility]04-[facility]2016 History of Past illness Narrative* Problem Noted Date Diagnosed Date Resolved Date Abnormality of gait 12/24/2015 04/11/20 17 Ascites 07/13/2015 08/21/2015 Overview: Abdominal distension 07/09 KUB: air in stomach, repeat on 07/11: no dilated loops of bowel 07/11: US abdomen + ascites 07/13 Paracentesis ~ 2L straw colored fluid A/P: Abdomen soft, distended. No c/o abd. fullness. Monitor. Seizure 06/22/2015 08/21/2015 Overview: 06/22/2015 0230 Sudden new onset seizures - with generalized rhythmic contractions of all extremities plus facial twitching. Treated lorazepam and midazolam. Stat head CT negative for bleed. No acute metabolic changes on ABG. Concern for withdrawal from opioids - had been on high dose fentanyl infusion for 3 weeks -infusion d'tabitha on 06/18/15. Neuro consulted and continuous EEG monitoring ordered. Cont vEEG showing mild diffuse encephalopathy but no epileptiform form activity. A/P:: No seizure activity since 06/22. Keppra discontinued per ALD. Abdominal distension 06/15/2015 015 Overview: TF held. KUB pending. Fever 06/08/2015 08/21/2015 Overview: S/p CT chest/abd 06/18, which showed RLL collapse, with findings suggestive of necrotic PNA, and scattered upper lobe opacities; moderate ascites, cholelithiasis and gallbladder sludging without cholecystitis. Remains afebrile. No leukocytosis. - Urine cx (06/07), neg; Bld cx (06/11) x2 - NGTD - One blood culture (06/06) grew lactobacillus - Bld/UA cx drawn (06/16) - neg - BAL cx (06/20): smear shows GPC in clusters - Bld cx (06/21) NGTD Plan: - Meropenem stopped on 06/22 - Cont PO Vancomycin through hospitalization - F/u BAL cx (06/20) - Smear currently shows GPC in clusters but no organisms on culture; in the setting of resurgence of fevers, restarted on IV Vanc on 06/18->. Continue Vancomycin oral Mild protein-calorie malnutrition 06/04/2015 04/11/2017 Overview: Nutrition following. Ice chips only per beside swallow evaluation. Advanced to popcicle and applesauce 07/19 A/P: Tolerating TF via corpak at goal. Continue TF at current rate, monitor labs. Speech evaluation today Ischemia of hand 06/01/2015 06/05/2015 Overview: Radial a line removed- good doppler signals Rooke mittens placed Heparin infusion for goal pTT 45-55. Ischemia of lower extremity 06/01/2015 06/08/2015 Overview: Left lower extremity ischemia, has regained DP/PT doppler signals, but calf muscles remains somewhat tense. A/P: CKs normalizing, will stop following CK levels at this time. Vascular surgery signing off, appreciate assistance. 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 Radial art line was in LUE. Art line removed and arterial duplex showed radial artery thrombosis with patent ulnar artery. Pt now with strong pulse in L radial artery. Thrombocytopenia 06/01/2015 06/08/2015 Overview: Required massive transfusion after OR, placed on VA ECMO. Likely consumptive coagulopathy, however PF4 antibody sent given recent initiation of heparin IV. A/P: -Appears to be resolving, platelets 98,000 today. Cardiac insufficiency follow ing cardiac surgery 05/30/2015 06/15/2015 Overview: Severe RV, arrived from OR on iflolan and Epi. iFlolan weaned off A/P: Off epi and iFlolan. Open chest wound 05/30/2015 06/11/2015 Overview: S/p Lung Tx A/P: Dressing intact, continue ATBX while chest is open. Possible closure today Volume overload 05/30/2015 09/02/2015 Overview: + fluid balance due to multiple transfusions and volume replacement for shock in the early post op period. A/P: - 1.9 L/24hr. Continue diuresis, monitor UOP and labs. Personal history of ECMO 05/30/201502/2015 Overview: VV ECMO on 05/30, Transitioned to VA ECMO 05/31. VA ECMO weaned 06/03, back on VV ECMO Decannulated on 06/15. Stress hyperglycemia 05/30/2015 015 Overview: S/P Lung Tx A/P: Stress hyperglycemia exacerbated by surgery and pressors. RHI infusion for glycemic control. Shock liver - hepatic insufficiency 05/30/2015 06/05/2015 Overview: Markedly elevated LFTs, persistent coagulopathy and bleeding despite near- continuous trasnfusion of blood products. Also recurrent hypoglycemia requiring D50 boluses and D10W infusion. A/P: LFTs downtrending. 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 Progressively hypoxemic after arrival to ICU despite maximal MV support with lung protective ventilation and inhaled epoprostenol. NMB, inverted I:E ratio, high PEEP, low Vt with permissive hypercapnia only helped transiently. VV ECMO placed. Optimize vent settings, BPH, pain control, VV ECMO. Worsening lung compliance d/t hypervolemia (pulm edema) and/ or PGD. Continues on iFlolan. Switched to VA ECMO but maintaining very low Vt plus high PEEP. 06/03 Washout with VA ECMO weaned. VV ECMO initiated. S/p ECMO decannulation 06/15. S/p trach 06/19. Tolerated ~>11hrs on 07/06, but CXR with increased atelectasis following. A/P: CXR with bilateral opacities. Tolerating TC ATC. Continue TC, BPH, pain control, OOB. Consumption coagulopathy 05/29/2015 Overview: S/P Lung Transplant. Severe coagulopathic bleeding intraop and immediately postop. Received multiple blood products - plts, cryoppt, FFP and prbcs. Also rewarming for postop hypothermia. A/P: 4u pRBC and 2u platelets distribution coordinator to OR. PF4 antibody negative Chest remains open. Hypotension 05/29/2015 06/15/2015 Overview: Post Lung Tx. Severely vasoplegic intraop and immediately postop requiring multiple inopressors. Received methylene blue bolus intraop. Arrived ICU on epi, norepi, vasopressin and phenylephrine was added in ICU to maintain MAP >60mmHg. Wean for MAP 65 or greater. A/P: Off epi. Maintain MAPs 65-75. Acute blood loss anemia 05/29/201508/12 Overview: H/H remains low but stable. 07/10: H/H 6.6/21--transfused 1 unit 07/11: Transfused for 6.8/21.3 A/P: Monitor H/H, transfuse prn. Acute postoperative pain 05/29/2015 Overview: Post op lung Tx A/P: Dilaudid and acetaminophen prn for pain Hypothermia following anesthesia 05/29/2015 06/02/2015 Overview: 05/30/2015 Rewarming with forced warm air blanket Lactic acidosis 05/29/2015 06/03/2015 Overview: S/P Lung Tx A/P: Resolved with lactate levels of 1.2 today Right heart failure, NYHA class 4 04/27/2015 08/21/2015 Right heart failure due to p ulmonary hypertension 04/21/2015 06/02/2015 Overview: Patient with right heart failure stigmata (JVD, ascites and lower extremity edema). BP has been on the lower side. Oxygen requirement increased to 3L from 2 L Plan: - Will get repeat Echo with bubble study (last one from January 2015). - Place a PA cath and continue to diurese while monitoring her right heart pressures. - Will need IV lasix-received 80 IV lasix on 04/20 and 100 IV lasix on 04/21 - Continue spironolactone. JAMES (acute kidney injury) 04/21/2015 Overview: Baseline Cr 0.9 (04/09) -> Cr up to 2.4. A/P: JAMES is likely 2/2 ATN given hypotension and hemorrhage. Balance volume repletion with diuresis --> Cr continues to downtrend 1.92 -->1.37 today. Nephrology following - Maintain MAP 65 or greater, avoid nephrotoxic agents. Continue Lasix drip Hyponatremia with excess ext racellular fluid volume 04/21/2015 06/02/2015 Overview: Likely hypervolemic hyponatremia. Na improved form 126 to 130 this am. Patient is already on torsemide, spironolactone and metolazone at home. Plan: - Continue to diurese as kidney function allows. Palpitations 12/24/2014 08/21/2015 Hypoxemia 07/28/2014 08/21/2015 Vocal cord paralysis 03/31/2014 015 CTEPH (chronic thromboemboli c pulmonary hypertension) 04/29/2013 06/02/2015 Overview: - Will continue home meds including Bosentan, Tadalafil and Treprostinil. - O2 requirements as needed (uses 2L NC at home at night). - Continue home O2 - Patient was seen by lung transplant team. Tests required include: Quantitative perfusion scan (done) Gastric emptying study, esophageal manometry and 24hr pH study (ordered) Dental consultation (will need to call ) Social Work (on board) Iron deficiency anemia 01/25/201304/11 Overview: Menstruating female with iron deficiency Cardiomegaly 01/25/2013 09/02/2015 Overview: -- RV enlargement due to PH Exertional dyspnea 01/25/2013 5 Mediastinal adenopathy 01/25/201308/21 Hilar adenopathy 01/25/2013 08/21/2015 Overview: Noted on imaging- mother with a history of Sarcoid Could be 2/2 to chronic VTE and pHTN Lung nodules 01/25/2013 09/02/2015 Overview: Noted on imaging Follow Anticoagulation management encounter 01/25/2013 01/26/2013 SUMMARY 01/24/2013 02/02/2013 Overview: This is a 17 year old female with no significant PMH other than migraine and minimal allergies who developed significant SOB within the past 2 months, this progressed to the point where she was unable to walk up 2 flights of stairs and had mild chest pressure with activty. This worsened on a recent trip to [place] where she was on a 6 hour plane ride leading to a near syncopal episode. She presented ot her PCP for fatigue and was found to have anemia, elevated WBC count and on echo a elevated RVSP and dilated RV. She was sent for CT at her local Ed where she was found to have 2 small PE's. Patient sent for further evaluation. At admission upon review of her Ct there is no PE noted, she does however have significant cardiomegaly, increase RVSP and right atrial dilatation, will need to work up cause of PAH PAH (pulmonary artery hypertension) 01/24/2013 08/21/2015 Overview: Found to have elevated RVSP on echo with RV dilatation. ? Sarcoid as she has a family hx as well as polyarthralgia and fatigue - now with hilar lymphadenopathy RHC revealing PA HTN. 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 as angio was suggestive of multiple PEs small and chronic Plan: Further Remodulin titration as an out-patient q weekly, now on 7.5 ng/kg/min PET scan for VALERIA in the chest complete 02/07 Night sweats 01/24/2013 08/21/2015 Overview: Unclear etiology- Awaiting further PAH workup and Rheum w/u is neg so far documented as of this encounter (statuses as of 10/31/2023) [facility] History of Past illness Narrative* Problem Noted Date Diagnosed Date Resolved Date Abnormality of gait 12/24/2015 04/11/20 17 Ascites 07/13/2015 08/21/2015 Overview: Abdominal distension 07/09 KUB: air in stomach, repeat on 07/11: no dilated loops of bowel 07/11: US abdomen + ascites 07/13 Paracentesis ~ 2L straw colored fluid A/P: Abdomen soft, distended. No c/o abd. fullness. Monitor. Seizure 06/22/2015 08/21/2015 Overview: 06/22/2015 0230 Sudden new onset seizures - with generalized rhythmic contractions of all extremities plus facial twitching. Treated lorazepam and midazolam. Stat head CT negative for bleed. No acute metabolic changes on ABG. Concern for withdrawal from opioids - had been on high dose fentanyl infusion for 3 weeks -infusion d'tabitha on 06/18/15. Neuro consulted and continuous EEG monitoring ordered. Cont vEEG showing mild diffuse encephalopathy but no epileptiform form activity. A/P:: No seizure activity since 06/22. Keppra discontinued per ALD. Abdominal distension 06/15/2015 015 Overview: TF held. KUB pending. Fever 06/08/2015 08/21/2015 Overview: S/p CT chest/abd 06/18, which showed RLL collapse, with findings suggestive of necrotic PNA, and scattered upper lobe opacities; moderate ascites, cholelithiasis and gallbladder sludging without cholecystitis. Remains afebrile. No leukocytosis. - Urine cx (06/07), neg; Bld cx (06/11) x2 - NGTD - One blood culture (06/06) grew lactobacillus - Bld/UA cx drawn (06/16) - neg - BAL cx (06/20): smear shows GPC in clusters - Bld cx (06/21) NGTD Plan: - Meropenem stopped on 06/22 - Cont PO Vancomycin through hospitalization - F/u BAL cx (06/20) - Smear currently shows GPC in clusters but no organisms on culture; in the setting of resurgence of fevers, restarted on IV Vanc on 06/18->. Continue Vancomycin oral Mild protein-calorie malnutrition 06/04/2015 04/11/2017 Overview: Nutrition following. Ice chips only per beside swallow evaluation. Advanced to popcicle and applesauce 07/19 A/P: Tolerating TF via corpak at goal. Continue TF at current rate, monitor labs. Speech evaluation today Ischemia of hand 06/01/2015 06/05/2015 Overview: Radial a line removed- good doppler signals Rooke mittens placed Heparin infusion for goal pTT 45-55. Ischemia of lower extremity 06/01/2015 06/08/2015 Overview: Left lower extremity ischemia, has regained DP/PT doppler signals, but calf muscles remains somewhat tense. A/P: CKs normalizing, will stop following CK levels at this time. Vascular surgery signing off, appreciate assistance. 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 Radial art line was in LUE. Art line removed and arterial duplex showed radial artery thrombosis with patent ulnar artery. Pt now with strong pulse in L radial artery. Thrombocytopenia 06/01/2015 06/08/2015 Overview: Required massive transfusion after OR, placed on [facility] ECMO. Likely consumptive coagulopathy, however PF4 antibody sent given recent initiation of heparin IV. A/P: -Appears to be resolving, platelets 98,000 today. Cardiac insufficiency follow ing cardiac surgery 05/30/2015 06/15/2015 Overview: Severe RV, arrived from OR on iflolan and Epi. iFlolan weaned off A/P: Off epi and iFlolan. Open chest wound 05/30/2015 06/11/2015 Overview: S/p Lung Tx A/P: Dressing intact, continue ATBX while chest is open. Possible closure today Volume overload 05/30/2015 09/02/2015 Overview: + fluid balance due to multiple transfusions and volume replacement for shock in the early post op period. A/P: - 1.9 L/24hr. Continue diuresis, monitor UOP and labs. Personal history of ECMO 05/30/201502/2015 Overview: VV ECMO on 05/30, Transitioned to [facility] ECMO 05/31. VA ECMO weaned 06/03, back on VV ECMO Decannulated on 06/15. Stress hyperglycemia 05/30/2015 015 Overview: S/P Lung Tx A/P: Stress hyperglycemia exacerbated by surgery and pressors. RHI infusion for glycemic control. Shock liver - hepatic insufficiency 05/30/2015 06/05/2015 Overview: Markedly elevated LFTs, persistent coagulopathy and bleeding despite near- continuous trasnfusion of blood products. Also recurrent hypoglycemia requiring D50 boluses and D10W infusion. A/P: LFTs downtrending. 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 Progressively hypoxemic after arrival to ICU despite maximal MV support with lung protective ventilation and inhaled epoprostenol. NMB, inverted I:E ratio, high PEEP, low Vt with permissive hypercapnia only helped transiently. VV ECMO placed. Optimize vent settings, BPH, pain control, VV ECMO. Worsening lung compliance d/t hypervolemia (pulm edema) and/ or PGD. Continues on iFlolan. Switched to VA ECMO but maintaining very low Vt plus high PEEP. 06/03 Washout with VA ECMO weaned. VV ECMO initiated. S/p ECMO decannulation 06/15. S/p trach 06/19. Tolerated ~>11hrs on 07/06, but CXR with increased atelectasis following. A/P: CXR with bilateral opacities. Tolerating TC ATC. Continue TC, BPH, pain control, OOB. Consumption coagulopathy 05/29/2015 Overview: S/P Lung Transplant. Severe coagulopathic bleeding intraop and immediately postop. Received multiple blood products - plts, cryoppt, FFP and prbcs. Also rewarming for postop hypothermia. A/P: 4u pRBC and 2u platelets distribution coordinator to OR. PF4 antibody negative Chest remains open. Hypotension 05/29/2015 06/15/2015 Overview: Post Lung Tx. Severely vasoplegic intraop and immediately postop requiring multiple inopressors. Received methylene blue bolus intraop. Arrived ICU on epi, norepi, vasopressin and phenylephrine was added in ICU to maintain MAP >60mmHg. Wean for MAP 65 or greater. A/P: Off epi. Maintain MAPs 65-75. Acute blood loss anemia 05/29/201508/12 Overview: H/H remains low but stable. 07/10: H/H 6.6/21--transfused 1 unit 07/11: Transfused for 6.8/.3 A/P: Monitor H/H, transfuse prn. Acute postoperative pain 05/29/2015 Overview: Post op lung Tx A/P: Dilaudid and acetaminophen prn for pain Hypothermia following anesthesia 05/29/2015 06/02/2015 Overview: 05/30/2015 Rewarming with forced warm air blanket Lactic acidosis 05/29/2015 06/03/2015 Overview: S/P Lung Tx A/P: Resolved with lactate levels of 1.2 today Right heart failure, NYHA class 4 04/27/2015 08/21/2015 Right heart failure due to p ulmonary hypertension 04/21/2015 06/02/2015 Overview: Patient with right heart failure stigmata (JVD, ascites and lower extremity edema). BP has been on the lower side. Oxygen requirement increased to 3L from 2 L Plan: - Will get repeat Echo with bubble study (last one from January 2015). - Place a PA cath and continue to diurese while monitoring her right heart pressures. - Will need IV lasix-received 80 IV lasix on 04/20 and 100 IV lasix on 04/21 - Continue spironolactone. JAMES (acute kidney injury) 04/21/2015 Overview: Baseline Cr 0.9 (04/09) -> Cr up to 2.4. A/P: JAMES is likely 2/2 ATN given hypotension and hemorrhage. Balance volume repletion with diuresis --> Cr continues to downtrend 1.92 -->1.37 today. Nephrology following - Maintain MAP 65 or greater, avoid nephrotoxic agents. Continue Lasix drip Hyponatremia with excess ext racellular fluid volume 04/21/2015 06/02/2015 Overview: Likely hypervolemic hyponatremia. Na improved form 126 to 130 this am. Patient is already on torsemide, spironolactone and metolazone at home. Plan: - Continue to diurese as kidney function allows. Palpitations 12/24/2014 08/21/2015 Hypoxemia 07/28/2014 08/21/2015 Vocal cord paralysis 03/31/2014 015 CTEPH (chronic thromboemboli c pulmonary hypertension) 04/29/2013 06/02/2015 Overview: - Will continue home meds including Bosentan, Tadalafil and Treprostinil. - O2 requirements as needed (uses 2L NC at home at night). - Continue home O2 - Patient was seen by lung transplant team. Tests required include: Quantitative perfusion scan (done) Gastric emptying study, esophageal manometry and 24hr pH study (ordered) Dental consultation (will need to call ) Social Work (on board) Iron deficiency anemia 01/25/201304/11 Overview: Menstruating female with iron deficiency Cardiomegaly 01/25/2013 09/02/2015 Overview: -- RV enlargement due to PH Exertional dyspnea 01/25/2013 5 Mediastinal adenopathy 01/25/201308/21 Hilar adenopathy 01/25/2013 08/21/2015 Overview: Noted on imaging- mother with a history of Sarcoid Could be 2/2 to chronic VTE and pHTN Lung nodules 01/25/2013 09/02/2015 Overview: Noted on imaging Follow Anticoagulation management encounter 01/25/2013 01/26/2013 SUMMARY 01/24/2013 02/02/2013 Overview: This is a 17 year old female with no significant PMH other than migraine and minimal allergies who developed significant SOB within the past 2 months, this progressed to the point where she was unable to walk up 2 flights of stairs and had mild chest pressure with activty. This worsened on a recent trip to [place] where she was on a 6 hour plane ride leading to a near syncopal episode. She presented ot her PCP for fatigue and was found to have anemia, elevated WBC count and on echo a elevated RVSP and dilated RV. She was sent for CT at her local Ed where she was found to have 2 small PE's. Patient sent for further evaluation. At admission upon review of her Ct there is no PE noted, she does however have significant cardiomegaly, increase RVSP and right atrial dilatation, will need to work up cause of PAH PAH (pulmonary artery hypertension) 01/24/2013 08/21/2015 Overview: Found to have elevated RVSP on echo with RV dilatation. ? Sarcoid as she has a family hx as well as polyarthralgia and fatigue - now with hilar lymphadenopathy RHC revealing PA HTN. 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 as angio was suggestive of multiple PEs small and chronic Plan: Further Remodulin titration as an out-patient q weekly, now on 7.5 ng/kg/min PET scan for VALERIA in the chest complete 530 Night sweats 01/24/2013 08/21/2015 Overview: Unclear etiology- Awaiting further PAH workup and Rheum w/u is neg so far documented as of this encounter (statuses as of 11/07/2023) [facility] History of Past illness Narrative* Problem Noted Date Diagnosed Date Resolved Date Abnormality of gait 12/24/2015 04/11/20 17 Ascites 07/13/2015 08/21/2015 Overview: Abdominal distension 07/09 KUB: air in stomach, repeat on 07/11: no dilated loops of bowel 07/11: US abdomen + ascites 07/13 Paracentesis ~ 2L straw colored fluid A/P: Abdomen soft, distended. No c/o abd. fullness. Monitor. Seizure 06/22/2015 08/21/2015 Overview: 06/22/2015 0230 Sudden new onset seizures - with generalized rhythmic contractions of all extremities plus facial twitching. Treated lorazepam and midazolam. Stat head CT negative for bleed. No acute metabolic changes on ABG. Concern for withdrawal from opioids - had been on high dose fentanyl infusion for 3 weeks -infusion d'tabitha on 06/18/15. Neuro consulted and continuous EEG monitoring ordered. Cont vEEG showing mild diffuse encephalopathy but no epileptiform form activity. A/P:: No seizure activity since 06/22. Keppra discontinued per ALD. Abdominal distension 06/15/2015 015 Overview: TF held. KUB pending. Fever 06/08/2015 08/21/2015 Overview: S/p CT chest/abd 06/18, which showed RLL collapse, with findings suggestive of necrotic PNA, and scattered upper lobe opacities; moderate ascites, cholelithiasis and gallbladder sludging without cholecystitis. Remains afebrile. No leukocytosis. - Urine cx (06/07), neg; Bld cx (06/11) x2 - NGTD - One blood culture (06/06) grew lactobacillus - Bld/UA cx drawn (06/16) - neg - BAL cx (06/20): smear shows GPC in clusters - Bld cx (06/21) NGTD Plan: - Meropenem stopped on 06/22 - Cont PO Vancomycin through hospitalization - F/u BAL cx (06/20) - Smear currently shows GPC in clusters but no organisms on culture; in the setting of resurgence of fevers, restarted on IV Vanc on 06/18->. Continue Vancomycin oral Mild protein-calorie malnutrition 06/04/2015 04/11/2017 Overview: Nutrition following. Ice chips only per beside swallow evaluation. Advanced to popcicle and applesauce 07/19 A/P: Tolerating TF via corpak at goal. Continue TF at current rate, monitor labs. Speech evaluation today Ischemia of hand 06/01/2015 06/05/2015 Overview: Radial a line removed- good doppler signals Rooke mittens placed Heparin infusion for goal pTT 45-55. Ischemia of lower extremity 06/01/2015 06/08/2015 Overview: Left lower extremity ischemia, has regained DP/PT doppler signals, but calf muscles remains somewhat tense. A/P: CKs normalizing, will stop following CK levels at this time. Vascular surgery signing off, appreciate assistance. 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 Radial art line was in LUE. Art line removed and arterial duplex showed radial artery thrombosis with patent ulnar artery. Pt now with strong pulse in L radial artery. Thrombocytopenia 06/01/2015 06/08/2015 Overview: Required massive transfusion after OR, placed on VA ECMO. Likely consumptive coagulopathy, however PF4 antibody sent given recent initiation of heparin IV. A/P: -Appears to be resolving, platelets 98,000 today. Cardiac insufficiency follow ing cardiac surgery 05/30/2015 06/15/2015 Overview: Severe RV, arrived from OR on iflolan and Epi. iFlolan weaned off A/P: Off epi and iFlolan. Open chest wound 05/30/2015 06/11/2015 Overview: S/p Lung Tx A/P: Dressing intact, continue ATBX while chest is open. Possible closure today Volume overload 05/30/2015 09/02/2015 Overview: + fluid balance due to multiple transfusions and volume replacement for shock in the early post op period. A/P: - 1.9 L/24hr. Continue diuresis, monitor UOP and labs. Personal history of ECMO 05/30/201502/2015 Overview: VV ECMO on 05/30, Transitioned to VA ECMO 05/31. VA ECMO weaned 06/03, back on VV ECMO Decannulated on 06/15. Stress hyperglycemia 05/30/2015 015 Overview: S/P Lung Tx A/P: Stress hyperglycemia exacerbated by surgery and pressors. RHI infusion for glycemic control. Shock liver - hepatic insufficiency 05/30/2015 06/05/2015 Overview: Markedly elevated LFTs, persistent coagulopathy and bleeding despite near- continuous trasnfusion of blood products. Also recurrent hypoglycemia requiring D50 boluses and D10W infusion. A/P: LFTs downtrending. 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 Progressively hypoxemic after arrival to ICU despite maximal MV support with lung protective ventilation and inhaled epoprostenol. NMB, inverted I:E ratio, high PEEP, low Vt with permissive hypercapnia only helped transiently. VV ECMO placed. Optimize vent settings, BPH, pain control, VV ECMO. Worsening lung compliance d/t hypervolemia (pulm edema) and/ or PGD. Continues on iFlolan. Switched to VA ECMO but maintaining very low Vt plus high PEEP. 06/03 Washout with VA ECMO weaned. VV ECMO initiated. S/p ECMO decannulation 06/15. S/p trach 06/19. Tolerated ~>11hrs on 07/06, but CXR with increased atelectasis following. A/P: CXR with bilateral opacities. Tolerating TC ATC. Continue TC, BPH, pain control, OOB. Consumption coagulopathy 05/29/2015 Overview: S/P Lung Transplant. Severe coagulopathic bleeding intraop and immediately postop. Received multiple blood products - plts, cryoppt, FFP and prbcs. Also rewarming for postop hypothermia. A/P: 4u pRBC and 2u platelets distribution coordinator to OR. PF4 antibody negative Chest remains open. Hypotension 05/29/2015 06/15/2015 Overview: Post Lung Tx. Severely vasoplegic intraop and immediately postop requiring multiple inopressors. Received methylene blue bolus intraop. Arrived ICU on epi, norepi, vasopressin and phenylephrine was added in ICU to maintain MAP >60mmHg. Wean for MAP 65 or greater. A/P: Off epi. Maintain MAPs 65-75. Acute blood loss anemia 05/29/201508/12 Overview: H/H remains low but stable. 07/10: H/H 6.6/21--transfused 1 unit 07/11: Transfused for 6.8.3 A/P: Monitor H/H, transfuse prn. Acute postoperative pain 05/29/2015 Overview: Post op lung Tx A/P: Dilaudid and acetaminophen prn for pain Hypothermia following anesthesia 05/29/2015 06/02/2015 Overview: 05/30/2015 Rewarming with forced warm air blanket Lactic acidosis 05/29/2015 06/03/2015 Overview: S/P Lung Tx A/P: Resolved with lactate levels of 1.2 today Right heart failure, NYHA class 4 04/27/2015 08/21/2015 Right heart failure due to p ulmonary hypertension 04/21/2015 06/02/2015 Overview: Patient with right heart failure stigmata (JVD, ascites and lower extremity edema). BP has been on the lower side. Oxygen requirement increased to 3L from 2 L Plan: - Will get repeat Echo with bubble study (last one from January 2015). - Place a PA cath and continue to diurese while monitoring her right heart pressures. - Will need IV lasix-received 80 IV lasix on 04/20 and 100 IV lasix on 04/21 - Continue spironolactone. JAMES (acute kidney injury) 04/21/2015 Overview: Baseline Cr 0.9 (04/09) -> Cr up to 2.4. A/P: JAMES is likely 2/2 ATN given hypotension and hemorrhage. Balance volume repletion with diuresis --> Cr continues to downtrend 1.92 -->1.37 today. Nephrology following - Maintain MAP 65 or greater, avoid nephrotoxic agents. Continue Lasix drip Hyponatremia with excess ext racellular fluid volume 04/21/2015 06/02/2015 Overview: Likely hypervolemic hyponatremia. Na improved form 126 to 130 this am. Patient is already on torsemide, spironolactone and metolazone at home. Plan: - Continue to diurese as kidney function allows. Palpitations 12/24/2014 08/21/2015 Hypoxemia 07/28/2014 08/21/2015 Vocal cord paralysis 03/31/2014 015 CTEPH (chronic thromboemboli c pulmonary hypertension) 04/29/2013 06/02/2015 Overview: - Will continue home meds including Bosentan, Tadalafil and Treprostinil. - O2 requirements as needed (uses 2L NC at home at night). - Continue home O2 - Patient was seen by lung transplant team. Tests required include: Quantitative perfusion scan (done) Gastric emptying study, esophageal manometry and 24hr pH study (ordered) Dental consultation (will need to call ) Social Work (on board) Iron deficiency anemia 01/25/201304/11 Overview: Menstruating female with iron deficiency Cardiomegaly 01/25/2013 09/02/2015 Overview: -- RV enlargement due to PH Exertional dyspnea 01/25/2013 5 Mediastinal adenopathy 01/25/201308/21 Hilar adenopathy 01/25/2013 08/21/2015 Overview: Noted on imaging- mother with a history of Sarcoid Could be 2/2 to chronic VTE and pHTN Lung nodules 01/25/2013 09/02/2015 Overview: Noted on imaging Follow Anticoagulation management encounter 01/25/2013 01/26/2013 SUMMARY 01/24/2013 02/02/2013 Overview: This is a 17 year old female with no significant PMH other than migraine and minimal allergies who developed significant SOB within the past 2 months, this progressed to the point where she was unable to walk up 2 flights of stairs and had mild chest pressure with activty. This worsened on a recent trip to [place] where she was on a 6 hour plane ride leading to a near syncopal episode. She presented ot her PCP for fatigue and was found to have anemia, elevated WBC count and on echo a elevated RVSP and dilated RV. She was sent for CT at her local Ed where she was found to have 2 small PE's. Patient sent for further evaluation. At admission upon review of her Ct there is no PE noted, she does however have significant cardiomegaly, increase RVSP and right atrial dilatation, will need to work up cause of PAH PAH (pulmonary artery hypertension) 01/24/2013 08/21/2015 Overview: Found to have elevated RVSP on echo with RV dilatation. ? Sarcoid as she has a family hx as well as polyarthralgia and fatigue - now with hilar lymphadenopathy RHC revealing PA HTN. 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 as angio was suggestive of multiple PEs small and chronic Plan: Further Remodulin titration as an out-patient q weekly, now on 7.5 ng/kg/min PET scan for VALERIA in the chest complete 5/30 Night sweats 01/24/2013 08/21/2015 Overview: Unclear etiology- Awaiting further PAH workup and Rheum w/u is neg so far documented as of this encounter (statuses as of 11/10/2023) [facility]04[facility]2016 History of Past illness Narrative* Problem Noted Date Diagnosed Date Resolved Date Abnormality of gait 12/24/2015 04/11/20 17 Ascites 07/13/2015 08/21/2015 Overview: Abdominal distension 07/09 KUB: air in stomach, repeat on 07/11: no dilated loops of bowel 07/11: US abdomen + ascites 07/13 Paracentesis ~ 2L straw colored fluid A/P: Abdomen soft, distended. No c/o abd. fullness. Monitor. Seizure 06/22/2015 08/21/2015 Overview: 06/22/2015 0230 Sudden new onset seizures - with generalized rhythmic contractions of all extremities plus facial twitching. Treated lorazepam and midazolam. Stat head CT negative for bleed. No acute metabolic changes on ABG. Concern for withdrawal from opioids - had been on high dose fentanyl infusion for 3 weeks -infusion d'tabitha on 06/18/15. Neuro consulted and continuous EEG monitoring ordered. Cont vEEG showing mild diffuse encephalopathy but no epileptiform form activity. A/P:: No seizure activity since 06/22. Keppra discontinued per ALD. Abdominal distension 06/15/2015 015 Overview: TF held. KUB pending. Fever 06/08/2015 08/21/2015 Overview: S/p CT chest/abd 06/18, which showed RLL collapse, with findings suggestive of necrotic PNA, and scattered upper lobe opacities; moderate ascites, cholelithiasis and gallbladder sludging without cholecystitis. Remains afebrile. No leukocytosis. - Urine cx (06/07), neg; Bld cx (06/11) x2 - NGTD - One blood culture (06/06) grew lactobacillus - Bld/UA cx drawn (06/16) - neg - BAL cx (06/20): smear shows GPC in clusters - Bld cx (06/21) NGTD Plan: - Meropenem stopped on 06/22 - Cont PO Vancomycin through hospitalization - F/u BAL cx (06/20) - Smear currently shows GPC in clusters but no organisms on culture; in the setting of resurgence of fevers, restarted on IV Vanc on 06/18->. Continue Vancomycin oral Mild protein-calorie malnutrition 06/04/2015 04/11/2017 Overview: Nutrition following. Ice chips only per beside swallow evaluation. Advanced to popcicle and applesauce 07/19 A/P: Tolerating TF via corpak at goal. Continue TF at current rate, monitor labs. Speech evaluation today Ischemia of hand 06/01/2015 06/05/2015 Overview: Radial a line removed- good doppler signals Rooke mittens placed Heparin infusion for goal pTT 45-55. Ischemia of lower extremity 06/01/2015 06/08/2015 Overview: Left lower extremity ischemia, has regained DP/PT doppler signals, but calf muscles remains somewhat tense. A/P: CKs normalizing, will stop following CK levels at this time. Vascular surgery signing off, appreciate assistance. 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 Radial art line was in LUE. Art line removed and arterial duplex showed radial artery thrombosis with patent ulnar artery. Pt now with strong pulse in L radial artery. Thrombocytopenia 06/01/2015 06/08/2015 Overview: Required massive transfusion after OR, placed on VA ECMO. Likely consumptive coagulopathy, however PF4 antibody sent given recent initiation of heparin IV. A/P: -Appears to be resolving, platelets 98,000 today. Cardiac insufficiency follow ing cardiac surgery 05/30/2015 06/15/2015 Overview: Severe RV, arrived from OR on iflolan and Epi. iFlolan weaned off A/P: Off epi and iFlolan. Open chest wound 05/30/2015 06/11/2015 Overview: S/p Lung Tx A/P: Dressing intact, continue ATBX while chest is open. Possible closure today Volume overload 05/30/2015 09/02/2015 Overview: + fluid balance due to multiple transfusions and volume replacement for shock in the early post op period. A/P: - 1.9 L/24hr. Continue diuresis, monitor UOP and labs. Personal history of ECMO 05/30/201502/2015 Overview: VV ECMO on 05/30, Transitioned to VA ECMO 05/31. VA ECMO weaned 06/03, back on VV ECMO Decannulated on 06/15. Stress hyperglycemia 05/30/2015 015 Overview: S/P Lung Tx A/P: Stress hyperglycemia exacerbated by surgery and pressors. RHI infusion for glycemic control. Shock liver - hepatic insufficiency 05/30/2015 06/05/2015 Overview: Markedly elevated LFTs, persistent coagulopathy and bleeding despite near- continuous trasnfusion of blood products. Also recurrent hypoglycemia requiring D50 boluses and D10W infusion. A/P: LFTs downtrending. 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 Progressively hypoxemic after arrival to ICU despite maximal MV support with lung protective ventilation and inhaled epoprostenol. NMB, inverted I:E ratio, high PEEP, low Vt with permissive hypercapnia only helped transiently. VV ECMO placed. Optimize vent settings, BPH, pain control, VV ECMO. Worsening lung compliance d/t hypervolemia (pulm edema) and/ or PGD. Continues on iFlolan. Switched to VA ECMO but maintaining very low Vt plus high PEEP. 06/03 Washout with VA ECMO weaned. VV ECMO initiated. S/p ECMO decannulation 06/15. S/p trach 06/19. Tolerated ~>11hrs on 07/06, but CXR with increased atelectasis following. A/P: CXR with bilateral opacities. Tolerating TC ATC. Continue TC, BPH, pain control, OOB. Consumption coagulopathy 05/29/2015 Overview: S/P Lung Transplant. Severe coagulopathic bleeding intraop and immediately postop. Received multiple blood products - plts, cryoppt, FFP and prbcs. Also rewarming for postop hypothermia. A/P: 4u pRBC and 2u platelets distribution coordinator to OR. PF4 antibody negative Chest remains open. Hypotension 05/29/2015 06/15/2015 Overview: Post Lung Tx. Severely vasoplegic intraop and immediately postop requiring multiple inopressors. Received methylene blue bolus intraop. Arrived ICU on epi, norepi, vasopressin and phenylephrine was added in ICU to maintain MAP >60mmHg. Wean for MAP 65 or greater. A/P: Off epi. Maintain MAPs 65-75. Acute blood loss anemia 05/29/201508/12 Overview: H/H remains low but stable. 07/10: H/H 6.6/21--transfused 1 unit 07/11: Transfused for 6.8/21.3 A/P: Monitor H/H, transfuse prn. Acute postoperative pain 05/29/2015 Overview: Post op lung Tx A/P: Dilaudid and acetaminophen prn for pain Hypothermia following anesthesia 05/29/2015 06/02/2015 Overview: 05/30/2015 Rewarming with forced warm air blanket Lactic acidosis 05/29/2015 06/03/2015 Overview: S/P Lung Tx A/P: Resolved with lactate levels of 1.2 today Right heart failure, NYHA class 4 04/27/2015 08/21/2015 Right heart failure due to p ulmonary hypertension 04/21/2015 06/02/2015 Overview: Patient with right heart failure stigmata (JVD, ascites and lower extremity edema). BP has been on the lower side. Oxygen requirement increased to 3L from 2 L Plan: - Will get repeat Echo with bubble study (last one from January 2015). - Place a PA cath and continue to diurese while monitoring her right heart pressures. - Will need IV lasix-received 80 IV lasix on 04/20 and 100 IV lasix on 04/21 - Continue spironolactone. JAMES (acute kidney injury) 04/21/2015 Overview: Baseline Cr 0.9 (04/09) -> Cr up to 2.4. A/P: JAMES is likely 2/2 ATN given hypotension and hemorrhage. Balance volume repletion with diuresis --> Cr continues to downtrend 1.92 -->1.37 today. Nephrology following - Maintain MAP 65 or greater, avoid nephrotoxic agents. Continue Lasix drip Hyponatremia with excess ext racellular fluid volume 04/21/2015 06/02/2015 Overview: Likely hypervolemic hyponatremia. Na improved form 126 to 130 this am. Patient is already on torsemide, spironolactone and metolazone at home. Plan: - Continue to diurese as kidney function allows. Palpitations 12/24/2014 08/21/2015 Hypoxemia 07/28/2014 08/21/2015 Vocal cord paralysis 03/31/2014 015 CTEPH (chronic thromboemboli c pulmonary hypertension) 04/29/2013 06/02/2015 Overview: - Will continue home meds including Bosentan, Tadalafil and Treprostinil. - O2 requirements as needed (uses 2L NC at home at night). - Continue home O2 - Patient was seen by lung transplant team. Tests required include: Quantitative perfusion scan (done) Gastric emptying study, esophageal manometry and 24hr pH study (ordered) Dental consultation (will need to call ) Social Work (on board) Iron deficiency anemia 01/25/201304/11 Overview: Menstruating female with iron deficiency Cardiomegaly 01/25/2013 09/02/2015 Overview: -- RV enlargement due to PH Exertional dyspnea 01/25/2013 5 Mediastinal adenopathy 01/25/201308/21 Hilar adenopathy 01/25/2013 08/21/2015 Overview: Noted on imaging- mother with a history of Sarcoid Could be 2/2 to chronic VTE and pHTN Lung nodules 01/25/2013 09/02/2015 Overview: Noted on imaging Follow Anticoagulation management encounter 01/25/2013 01/26/2013 SUMMARY 01/24/2013 02/02/2013 Overview: This is a 17 year old female with no significant PMH other than migraine and minimal allergies who developed significant SOB within the past 2 months, this progressed to the point where she was unable to walk up 2 flights of stairs and had mild chest pressure with activty. This worsened on a recent trip to [place] where she was on a 6 hour plane ride leading to a near syncopal episode. She presented ot her PCP for fatigue and was found to have anemia, elevated WBC count and on echo a elevated RVSP and dilated RV. She was sent for CT at her local Ed where she was found to have 2 small PE's. Patient sent for further evaluation. At admission upon review of her Ct there is no PE noted, she does however have significant cardiomegaly, increase RVSP and right atrial dilatation, will need to work up cause of PAH PAH (pulmonary artery hypertension) 01/24/2013 08/21/2015 Overview: Found to have elevated RVSP on echo with RV dilatation. ? Sarcoid as she has a family hx as well as polyarthralgia and fatigue - now with hilar lymphadenopathy RHC revealing PA HTN. 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 as angio was suggestive of multiple PEs small and chronic Plan: Further Remodulin titration as an out-patient q weekly, now on 7.5 ng/kg/min PET scan for VALERIA in the chest complete 530 Night sweats 01/24/2013 08/21/2015 Overview: Unclear etiology- Awaiting further PAH workup and Rheum w/u is neg so far documented as of this encounter (statuses as of 11/20/2023) [facility] History of Past illness Narrative* Problem Noted Date Diagnosed Date Resolved Date Abnormality of gait 12/24/2015 04/11/20 17 Ascites 07/13/2015 08/21/2015 Overview: Abdominal distension 07/09 KUB: air in stomach, repeat on 07/11: no dilated loops of bowel 07/11: US abdomen + ascites 07/13 Paracentesis ~ 2L straw colored fluid A/P: Abdomen soft, distended. No c/o abd. fullness. Monitor. Seizure 06/22/2015 08/21/2015 Overview: 06/22/2015 0230 Sudden new onset seizures - with generalized rhythmic contractions of all extremities plus facial twitching. Treated lorazepam and midazolam. Stat head CT negative for bleed. No acute metabolic changes on ABG. Concern for withdrawal from opioids - had been on high dose fentanyl infusion for 3 weeks -infusion d'tabitha on 06/18/15. Neuro consulted and continuous EEG monitoring ordered. Cont vEEG showing mild diffuse encephalopathy but no epileptiform form activity. A/P:: No seizure activity since 06/22. Keppra discontinued per ALD. Abdominal distension 06/15/2015 015 Overview: TF held. KUB pending. Fever 06/08/2015 08/21/2015 Overview: S/p CT chest/abd 06/18, which showed RLL collapse, with findings suggestive of necrotic PNA, and scattered upper lobe opacities; moderate ascites, cholelithiasis and gallbladder sludging without cholecystitis. Remains afebrile. No leukocytosis. - Urine cx (06/07), neg; Bld cx (06/11) x2 - NGTD - One blood culture (06/06) grew lactobacillus - Bld/UA cx drawn (06/16) - neg - BAL cx (06/20): smear shows GPC in clusters - Bld cx (06/21) NGTD Plan: - Meropenem stopped on 06/22 - Cont PO Vancomycin through hospitalization - F/u BAL cx (06/20) - Smear currently shows GPC in clusters but no organisms on culture; in the setting of resurgence of fevers, restarted on IV Vanc on 06/18->. Continue Vancomycin oral Mild protein-calorie malnutrition 06/04/2015 04/11/2017 Overview: Nutrition following. Ice chips only per beside swallow evaluation. Advanced to popcicle and applesauce 07/19 A/P: Tolerating TF via corpak at goal. Continue TF at current rate, monitor labs. Speech evaluation today Ischemia of hand 06/01/2015 06/05/2015 Overview: Radial a line removed- good doppler signals Rooke mittens placed Heparin infusion for goal pTT 45-55. Ischemia of lower extremity 06/01/2015 06/08/2015 Overview: Left lower extremity ischemia, has regained DP/PT doppler signals, but calf muscles remains somewhat tense. A/P: CKs normalizing, will stop following CK levels at this time. Vascular surgery signing off, appreciate assistance. 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 Radial art line was in LUE. Art line removed and arterial duplex showed radial artery thrombosis with patent ulnar artery. Pt now with strong pulse in L radial artery. Thrombocytopenia 06/01/2015 06/08/2015 Overview: Required massive transfusion after OR, placed on VA ECMO. Likely consumptive coagulopathy, however PF4 antibody sent given recent initiation of heparin IV. A/P: -Appears to be resolving, platelets 98,000 today. Cardiac insufficiency follow ing cardiac surgery 05/30/2015 06/15/2015 Overview: Severe RV, arrived from OR on iflolan and Epi. iFlolan weaned off A/P: Off epi and iFlolan. Open chest wound 05/30/2015 06/11/2015 Overview: S/p Lung Tx A/P: Dressing intact, continue ATBX while chest is open. Possible closure today Volume overload 05/30/2015 09/02/2015 Overview: + fluid balance due to multiple transfusions and volume replacement for shock in the early post op period. A/P: - 1.9 L/24hr. Continue diuresis, monitor UOP and labs. Personal history of ECMO 05/30/201502/2015 Overview: VV ECMO on 05/30, Transitioned to VA ECMO 05/31. VA ECMO weaned 06/03, back on VV ECMO Decannulated on 06/15. Stress hyperglycemia 05/30/2015 015 Overview: S/P Lung Tx A/P: Stress hyperglycemia exacerbated by surgery and pressors. RHI infusion for glycemic control. Shock liver - hepatic insufficiency 05/30/2015 06/05/2015 Overview: Markedly elevated LFTs, persistent coagulopathy and bleeding despite near- continuous trasnfusion of blood products. Also recurrent hypoglycemia requiring D50 boluses and D10W infusion. A/P: LFTs downtrending. 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 Progressively hypoxemic after arrival to ICU despite maximal MV support with lung protective ventilation and inhaled epoprostenol. NMB, inverted I:E ratio, high PEEP, low Vt with permissive hypercapnia only helped transiently. VV ECMO placed. Optimize vent settings, BPH, pain control, VV ECMO. Worsening lung compliance d/t hypervolemia (pulm edema) and/ or PGD. Continues on iFlolan. Switched to VA ECMO but maintaining very low Vt plus high PEEP. 06/03 Washout with VA ECMO weaned. VV ECMO initiated. S/p ECMO decannulation 06/15. S/p trach 06/19. Tolerated ~>11hrs on 07/06, but CXR with increased atelectasis following. A/P: CXR with bilateral opacities. Tolerating TC ATC. Continue TC, BPH, pain control, OOB. Consumption coagulopathy 05/29/2015 Overview: S/P Lung Transplant. Severe coagulopathic bleeding intraop and immediately postop. Received multiple blood products - plts, cryoppt, FFP and prbcs. Also rewarming for postop hypothermia. A/P: 4u pRBC and 2u platelets distribution coordinator to OR. PF4 antibody negative Chest remains open. Hypotension 05/29/2015 06/15/2015 Overview: Post Lung Tx. Severely vasoplegic intraop and immediately postop requiring multiple inopressors. Received methylene blue bolus intraop. Arrived ICU on epi, norepi, vasopressin and phenylephrine was added in ICU to maintain MAP >60mmHg. Wean for MAP 65 or greater. A/P: Off epi. Maintain MAPs 65-75. Acute blood loss anemia 05/29/201508/12 Overview: H/H remains low but stable. 07/10: H/H 6.6/21--transfused 1 unit 07/11: Transfused for 6.8/21.3 A/P: Monitor H/H, transfuse prn. Acute postoperative pain 05/29/2015 Overview: Post op lung Tx A/P: Dilaudid and acetaminophen prn for pain Hypothermia following anesthesia 05/29/2015 06/02/2015 Overview: 05/30/2015 Rewarming with forced warm air blanket Lactic acidosis 05/29/2015 06/03/2015 Overview: S/P Lung Tx A/P: Resolved with lactate levels of 1.2 today Right heart failure, NYHA class 4 04/27/2015 08/21/2015 Right heart failure due to p ulmonary hypertension 04/21/2015 06/02/2015 Overview: Patient with right heart failure stigmata (JVD, ascites and lower extremity edema). BP has been on the lower side. Oxygen requirement increased to 3L from 2 L Plan: - Will get repeat Echo with bubble study (last one from January 2015). - Place a PA cath and continue to diurese while monitoring her right heart pressures. - Will need IV lasix-received 80 IV lasix on 04/20 and 100 IV lasix on 04/21 - Continue spironolactone. JAMES (acute kidney injury) 04/21/2015 Overview: Baseline Cr 0.9 (04/09) -> Cr up to 2.4. A/P: JAMES is likely 2/2 ATN given hypotension and hemorrhage. Balance volume repletion with diuresis --> Cr continues to downtrend 1.92 -->1.37 today. Nephrology following - Maintain MAP 65 or greater, avoid nephrotoxic agents. Continue Lasix drip Hyponatremia with excess ext racellular fluid volume 04/21/2015 06/02/2015 Overview: Likely hypervolemic hyponatremia. Na improved form 126 to 130 this am. Patient is already on torsemide, spironolactone and metolazone at home. Plan: - Continue to diurese as kidney function allows. Palpitations 12/24/2014 08/21/2015 Hypoxemia 07/28/2014 08/21/2015 Vocal cord paralysis 03/31/2014 015 CTEPH (chronic thromboemboli c pulmonary hypertension) 04/29/2013 06/02/2015 Overview: - Will continue home meds including Bosentan, Tadalafil and Treprostinil. - O2 requirements as needed (uses 2L NC at home at night). - Continue home O2 - Patient was seen by lung transplant team. Tests required include: Quantitative perfusion scan (done) Gastric emptying study, esophageal manometry and 24hr pH study (ordered) Dental consultation (will need to call ) Social Work (on board) Iron deficiency anemia 01/25/201304/11 Overview: Menstruating female with iron deficiency Cardiomegaly 01/25/2013 09/02/2015 Overview: -- RV enlargement due to PH Exertional dyspnea 01/25/2013 5 Mediastinal adenopathy 01/25/201308/21 Hilar adenopathy 01/25/2013 08/21/2015 Overview: Noted on imaging- mother with a history of Sarcoid Could be 2/2 to chronic VTE and pHTN Lung nodules 01/25/2013 09/02/2015 Overview: Noted on imaging Follow Anticoagulation management encounter 01/25/2013 01/26/2013 SUMMARY 01/24/2013 02/02/2013 Overview: This is a 17 year old female with no significant PMH other than migraine and minimal allergies who developed significant SOB within the past 2 months, this progressed to the point where she was unable to walk up 2 flights of stairs and had mild chest pressure with activty. This worsened on a recent trip to [place] where she was on a 6 hour plane ride leading to a near syncopal episode. She presented ot her PCP for fatigue and was found to have anemia, elevated WBC count and on echo a elevated RVSP and dilated RV. She was sent for CT at her local Ed where she was found to have 2 small PE's. Patient sent for further evaluation. At admission upon review of her Ct there is no PE noted, she does however have significant cardiomegaly, increase RVSP and right atrial dilatation, will need to work up cause of PAH PAH (pulmonary artery hypertension) 01/24/2013 08/21/2015 Overview: Found to have elevated RVSP on echo with RV dilatation. ? Sarcoid as she has a family hx as well as polyarthralgia and fatigue - now with hilar lymphadenopathy RHC revealing PA HTN. 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 as angio was suggestive of multiple PEs small and chronic Plan: Further Remodulin titration as an out-patient q weekly, now on 7.5 ng/kg/min PET scan for VALERIA in the chest complete 5 Night sweats 01/24/2013 08/21/2015 Overview: Unclear etiology- Awaiting further PAH workup and Rheum w/u is neg so far documented as of this encounter (statuses as of 11/22/2023) [facility]04[facility]2016 History of Past illness Narrative* Problem Noted Date Diagnosed Date Resolved Date Abnormality of gait 12/24/2015 04/11/20 17 Ascites 07/13/2015 08/21/2015 Overview: Abdominal distension 07/09 KUB: air in stomach, repeat on 07/11: no dilated loops of bowel 07/11: US abdomen + ascites 07/13 Paracentesis ~ 2L straw colored fluid A/P: Abdomen soft, distended. No c/o abd. fullness. Monitor. Seizure 06/22/2015 08/21/2015 Overview: 06/22/2015 0230 Sudden new onset seizures - with generalized rhythmic contractions of all extremities plus facial twitching. Treated lorazepam and midazolam. Stat head CT negative for bleed. No acute metabolic changes on ABG. Concern for withdrawal from opioids - had been on high dose fentanyl infusion for 3 weeks -infusion d'tabitha on 06/18/15. Neuro consulted and continuous EEG monitoring ordered. Cont vEEG showing mild diffuse encephalopathy but no epileptiform form activity. A/P:: No seizure activity since 06/22. Keppra discontinued per ALD. Abdominal distension 06/15/2015 015 Overview: TF held. KUB pending. Fever 06/08/2015 08/21/2015 Overview: S/p CT chest/abd 06/18, which showed RLL collapse, with findings suggestive of necrotic PNA, and scattered upper lobe opacities; moderate ascites, cholelithiasis and gallbladder sludging without cholecystitis. Remains afebrile. No leukocytosis. - Urine cx (06/07), neg; Bld cx (06/11) x2 - NGTD - One blood culture (06/06) grew lactobacillus - Bld/UA cx drawn (06/16) - neg - BAL cx (06/20): smear shows GPC in clusters - Bld cx (06/21) NGTD Plan: - Meropenem stopped on 06/22 - Cont PO Vancomycin through hospitalization - F/u BAL cx (06/20) - Smear currently shows GPC in clusters but no organisms on culture; in the setting of resurgence of fevers, restarted on IV Vanc on 06/18->. Continue Vancomycin oral Mild protein-calorie malnutrition 06/04/2015 04/11/2017 Overview: Nutrition following. Ice chips only per beside swallow evaluation. Advanced to popcicle and applesauce 07/19 A/P: Tolerating TF via corpak at goal. Continue TF at current rate, monitor labs. Speech evaluation today Ischemia of hand 06/01/2015 06/05/2015 Overview: Radial a line removed- good doppler signals Rooke mittens placed Heparin infusion for goal pTT 45-55. Ischemia of lower extremity 06/01/2015 06/08/2015 Overview: Left lower extremity ischemia, has regained DP/PT doppler signals, but calf muscles remains somewhat tense. A/P: CKs normalizing, will stop following CK levels at this time. Vascular surgery signing off, appreciate assistance. 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 Radial art line was in LUE. Art line removed and arterial duplex showed radial artery thrombosis with patent ulnar artery. Pt now with strong pulse in L radial artery. Thrombocytopenia 06/01/2015 06/08/2015 Overview: Required massive transfusion after OR, placed on VA ECMO. Likely consumptive coagulopathy, however PF4 antibody sent given recent initiation of heparin IV. A/P: -Appears to be resolving, platelets 98,000 today. Cardiac insufficiency follow ing cardiac surgery 05/30/2015 06/15/2015 Overview: Severe RV, arrived from OR on iflolan and Epi. iFlolan weaned off A/P: Off epi and iFlolan. Open chest wound 05/30/2015 06/11/2015 Overview: S/p Lung Tx A/P: Dressing intact, continue ATBX while chest is open. Possible closure today Volume overload 05/30/2015 09/02/2015 Overview: + fluid balance due to multiple transfusions and volume replacement for shock in the early post op period. A/P: - 1.9 L/24hr. Continue diuresis, monitor UOP and labs. Personal history of ECMO 05/30/201502/2015 Overview: VV ECMO on 05/30, Transitioned to VA ECMO 05/31. VA ECMO weaned 06/03, back on VV ECMO Decannulated on 06/15. Stress hyperglycemia 05/30/2015 015 Overview: S/P Lung Tx A/P: Stress hyperglycemia exacerbated by surgery and pressors. RHI infusion for glycemic control. Shock liver - hepatic insufficiency 05/30/2015 06/05/2015 Overview: Markedly elevated LFTs, persistent coagulopathy and bleeding despite near- continuous trasnfusion of blood products. Also recurrent hypoglycemia requiring D50 boluses and D10W infusion. A/P: LFTs downtrending. 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 Progressively hypoxemic after arrival to ICU despite maximal MV support with lung protective ventilation and inhaled epoprostenol. NMB, inverted I:E ratio, high PEEP, low Vt with permissive hypercapnia only helped transiently. VV ECMO placed. Optimize vent settings, BPH, pain control, VV ECMO. Worsening lung compliance d/t hypervolemia (pulm edema) and/ or PGD. Continues on iFlolan. Switched to VA ECMO but maintaining very low Vt plus high PEEP. 06/03 Washout with VA ECMO weaned. VV ECMO initiated. S/p ECMO decannulation 06/15. S/p trach 06/19. Tolerated ~>11hrs on 07/06, but CXR with increased atelectasis following. A/P: CXR with bilateral opacities. Tolerating TC ATC. Continue TC, BPH, pain control, OOB. Consumption coagulopathy 05/29/2015 Overview: S/P Lung Transplant. Severe coagulopathic bleeding intraop and immediately postop. Received multiple blood products - plts, cryoppt, FFP and prbcs. Also rewarming for postop hypothermia. A/P: 4u pRBC and 2u platelets distribution coordinator to OR. PF4 antibody negative Chest remains open. Hypotension 05/29/2015 06/15/2015 Overview: Post Lung Tx. Severely vasoplegic intraop and immediately postop requiring multiple inopressors. Received methylene blue bolus intraop. Arrived ICU on epi, norepi, vasopressin and phenylephrine was added in ICU to maintain MAP >60mmHg. Wean for MAP 65 or greater. A/P: Off epi. Maintain MAPs 65-75. Acute blood loss anemia 05/29/201508/12 Overview: H/H remains low but stable. 07/10: H/H 6.6/21--transfused 1 unit 07/11: Transfused for 6.821.3 A/P: Monitor H/H, transfuse prn. Acute postoperative pain 05/29/2015 Overview: Post op lung Tx A/P: Dilaudid and acetaminophen prn for pain Hypothermia following anesthesia 05/29/2015 06/02/2015 Overview: 05/30/2015 Rewarming with forced warm air blanket Lactic acidosis 05/29/2015 06/03/2015 Overview: S/P Lung Tx A/P: Resolved with lactate levels of 1.2 today Right heart failure, NYHA class 4 04/27/2015 08/21/2015 Right heart failure due to p ulmonary hypertension 04/21/2015 06/02/2015 Overview: Patient with right heart failure stigmata (JVD, ascites and lower extremity edema). BP has been on the lower side. Oxygen requirement increased to 3L from 2 L Plan: - Will get repeat Echo with bubble study (last one from January 2015). - Place a PA cath and continue to diurese while monitoring her right heart pressures. - Will need IV lasix-received 80 IV lasix on 04/20 and 100 IV lasix on 04/21 - Continue spironolactone. JAMES (acute kidney injury) 04/21/2015 Overview: Baseline Cr 0.9 (04/09) -> Cr up to 2.4. A/P: JAMES is likely 2/2 ATN given hypotension and hemorrhage. Balance volume repletion with diuresis --> Cr continues to downtrend 1.92 -->1.37 today. Nephrology following - Maintain MAP 65 or greater, avoid nephrotoxic agents. Continue Lasix drip Hyponatremia with excess ext racellular fluid volume 04/21/2015 06/02/2015 Overview: Likely hypervolemic hyponatremia. Na improved form 126 to 130 this am. Patient is already on torsemide, spironolactone and metolazone at home. Plan: - Continue to diurese as kidney function allows. Palpitations 12/24/2014 08/21/2015 Hypoxemia 07/28/2014 08/21/2015 Vocal cord paralysis 03/31/2014 015 CTEPH (chronic thromboemboli c pulmonary hypertension) 04/29/2013 06/02/2015 Overview: - Will continue home meds including Bosentan, Tadalafil and Treprostinil. - O2 requirements as needed (uses 2L NC at home at night). - Continue home O2 - Patient was seen by lung transplant team. Tests required include: Quantitative perfusion scan (done) Gastric emptying study, esophageal manometry and 24hr pH study (ordered) Dental consultation (will need to call ) Social Work (on board) Iron deficiency anemia 01/25/201304/11 Overview: Menstruating female with iron deficiency Cardiomegaly 01/25/2013 09/02/2015 Overview: -- RV enlargement due to PH Exertional dyspnea 01/25/2013 5 Mediastinal adenopathy 01/25/201308/21 Hilar adenopathy 01/25/2013 08/21/2015 Overview: Noted on imaging- mother with a history of Sarcoid Could be 2/2 to chronic VTE and pHTN Lung nodules 01/25/2013 09/02/2015 Overview: Noted on imaging Follow Anticoagulation management encounter 01/25/2013 01/26/2013 SUMMARY 01/24/2013 02/02/2013 Overview: This is a 17 year old female with no significant PMH other than migraine and minimal allergies who developed significant SOB within the past 2 months, this progressed to the point where she was unable to walk up 2 flights of stairs and had mild chest pressure with activty. This worsened on a recent trip to [place] where she was on a 6 hour plane ride leading to a near syncopal episode. She presented ot her PCP for fatigue and was found to have anemia, elevated WBC count and on echo a elevated RVSP and dilated RV. She was sent for CT at her local Ed where she was found to have 2 small PE's. Patient sent for further evaluation. At admission upon review of her Ct there is no PE noted, she does however have significant cardiomegaly, increase RVSP and right atrial dilatation, will need to work up cause of PAH PAH (pulmonary artery hypertension) 01/24/2013 08/21/2015 Overview: Found to have elevated RVSP on echo with RV dilatation. ? Sarcoid as she has a family hx as well as polyarthralgia and fatigue - now with hilar lymphadenopathy RHC revealing PA HTN. 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 as angio was suggestive of multiple PEs small and chronic Plan: Further Remodulin titration as an out-patient q weekly, now on 7.5 ng/kg/min PET scan for VALERIA in the chest complete 5/30 Night sweats 01/24/2013 08/21/2015 Overview: Unclear etiology- Awaiting further PAH workup and Rheum w/u is neg so far documented as of this encounter (statuses as of 11/23/2023) [facility] History of Past illness Narrative* Problem Noted Date Diagnosed Date Resolved Date Abnormality of gait 12/24/2015 04/11/20 17 Ascites 07/13/2015 08/21/2015 Overview: Abdominal distension 07/09 KUB: air in stomach, repeat on 07/11: no dilated loops of bowel 07/11: US abdomen + ascites 07/13 Paracentesis ~ 2L straw colored fluid A/P: Abdomen soft, distended. No c/o abd. fullness. Monitor. Seizure 06/22/2015 08/21/2015 Overview: 06/22/2015 0230 Sudden new onset seizures - with generalized rhythmic contractions of all extremities plus facial twitching. Treated lorazepam and midazolam. Stat head CT negative for bleed. No acute metabolic changes on ABG. Concern for withdrawal from opioids - had been on high dose fentanyl infusion for 3 weeks -infusion d'tabitha on 06/18/15. Neuro consulted and continuous EEG monitoring ordered. Cont vEEG showing mild diffuse encephalopathy but no epileptiform form activity. A/P:: No seizure activity since 06/22. Keppra discontinued per ALD. Abdominal distension 06/15/2015 015 Overview: TF held. KUB pending. Fever 06/08/2015 08/21/2015 Overview: S/p CT chest/abd 06/18, which showed RLL collapse, with findings suggestive of necrotic PNA, and scattered upper lobe opacities; moderate ascites, cholelithiasis and gallbladder sludging without cholecystitis. Remains afebrile. No leukocytosis. - Urine cx (06/07), neg; Bld cx (06/11) x2 - NGTD - One blood culture (06/06) grew lactobacillus - Bld/UA cx drawn (06/16) - neg - BAL cx (06/20): smear shows GPC in clusters - Bld cx (06/21) NGTD Plan: - Meropenem stopped on 06/22 - Cont PO Vancomycin through hospitalization - F/u BAL cx (06/20) - Smear currently shows GPC in clusters but no organisms on culture; in the setting of resurgence of fevers, restarted on IV Vanc on 06/18->. Continue Vancomycin oral Mild protein-calorie malnutrition 06/04/2015 04/11/2017 Overview: Nutrition following. Ice chips only per beside swallow evaluation. Advanced to popcicle and applesauce 07/19 A/P: Tolerating TF via corpak at goal. Continue TF at current rate, monitor labs. Speech evaluation today Ischemia of hand 06/01/2015 06/05/2015 Overview: Radial a line removed- good doppler signals Roroberto mittenjarret placed Heparin infusion for goal pTT 45-55. Ischemia of lower extremity 06/01/2015 06/08/2015 Overview: Left lower extremity ischemia, has regained DP/PT doppler signals, but calf muscles remains somewhat tense. A/P: CKs normalizing, will stop following CK levels at this time. Vascular surgery signing off, appreciate assistance. 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 Radial art line was in LUE. Art line removed and arterial duplex showed radial artery thrombosis with patent ulnar artery. Pt now with strong pulse in L radial artery. Thrombocytopenia 06/01/2015 06/08/2015 Overview: Required massive transfusion after OR, placed on VA ECMO. Likely consumptive coagulopathy, however PF4 antibody sent given recent initiation of heparin IV. A/P: -Appears to be resolving, platelets 98,000 today. Cardiac insufficiency follow ing cardiac surgery 05/30/2015 06/15/2015 Overview: Severe RV, arrived from OR on iflolan and Epi. iFlolan weaned off A/P: Off epi and iFlolan. Open chest wound 05/30/2015 06/11/2015 Overview: S/p Lung Tx A/P: Dressing intact, continue ATBX while chest is open. Possible closure today Volume overload 05/30/2015 09/02/2015 Overview: + fluid balance due to multiple transfusions and volume replacement for shock in the early post op period. A/P: - 1.9 L/24hr. Continue diuresis, monitor UOP and labs. Personal history of ECMO 05/30/201502/2015 Overview: VV ECMO on 05/30, Transitioned to VA ECMO 05/31. VA ECMO weaned 06/03, back on VV ECMO Decannulated on 06/15. Stress hyperglycemia 05/30/2015 015 Overview: S/P Lung Tx A/P: Stress hyperglycemia exacerbated by surgery and pressors. RHI infusion for glycemic control. Shock liver - hepatic insufficiency 05/30/2015 06/05/2015 Overview: Markedly elevated LFTs, persistent coagulopathy and bleeding despite near- continuous trasnfusion of blood products. Also recurrent hypoglycemia requiring D50 boluses and D10W infusion. A/P: LFTs downtrending. 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 Progressively hypoxemic after arrival to ICU despite maximal MV support with lung protective ventilation and inhaled epoprostenol. NMB, inverted I:E ratio, high PEEP, low Vt with permissive hypercapnia only helped transiently. VV ECMO placed. Optimize vent settings, BPH, pain control, VV ECMO. Worsening lung compliance d/t hypervolemia (pulm edema) and/ or PGD. Continues on iFlolan. Switched to VA ECMO but maintaining very low Vt plus high PEEP. 06/03 Washout with VA ECMO weaned. VV ECMO initiated. S/p ECMO decannulation 06/15. S/p trach 06/19. Tolerated ~>11hrs on 07/06, but CXR with increased atelectasis following. A/P: CXR with bilateral opacities. Tolerating TC ATC. Continue TC, BPH, pain control, OOB. Consumption coagulopathy 05/29/2015 Overview: S/P Lung Transplant. Severe coagulopathic bleeding intraop and immediately postop. Received multiple blood products - plts, cryoppt, FFP and prbcs. Also rewarming for postop hypothermia. A/P: 4u pRBC and 2u platelets distribution coordinator to OR. PF4 antibody negative Chest remains open. Hypotension 05/29/2015 06/15/2015 Overview: Post Lung Tx. Severely vasoplegic intraop and immediately postop requiring multiple inopressors. Received methylene blue bolus intraop. Arrived ICU on epi, norepi, vasopressin and phenylephrine was added in ICU to maintain MAP >60mmHg. Wean for MAP 65 or greater. A/P: Off epi. Maintain MAPs 65-75. Acute blood loss anemia 05/29/201508/12 Overview: H/H remains low but stable. 07/10: H/H 6.6/21--transfused 1 unit 07/11: Transfused for 6.8/21.3 A/P: Monitor H/H, transfuse prn. Acute postoperative pain 05/29/2015 Overview: Post op lung Tx A/P: Dilaudid and acetaminophen prn for pain Hypothermia following anesthesia 05/29/2015 06/02/2015 Overview: 05/30/2015 Rewarming with forced warm air blanket Lactic acidosis 05/29/2015 06/03/2015 Overview: S/P Lung Tx A/P: Resolved with lactate levels of 1.2 today Right heart failure, NYHA class 4 04/27/2015 08/21/2015 Right heart failure due to p ulmonary hypertension 04/21/2015 06/02/2015 Overview: Patient with right heart failure stigmata (JVD, ascites and lower extremity edema). BP has been on the lower side. Oxygen requirement increased to 3L from 2 L Plan: - Will get repeat Echo with bubble study (last one from January 2015). - Place a PA cath and continue to diurese while monitoring her right heart pressures. - Will need IV lasix-received 80 IV lasix on 04/20 and 100 IV lasix on 04/21 - Continue spironolactone. JAMES (acute kidney injury) 04/21/2015 Overview: Baseline Cr 0.9 (04/09) -> Cr up to 2.4. A/P: JAMES is likely 2/2 ATN given hypotension and hemorrhage. Balance volume repletion with diuresis --> Cr continues to downtrend 1.92 -->1.37 today. Nephrology following - Maintain MAP 65 or greater, avoid nephrotoxic agents. Continue Lasix drip Hyponatremia with excess ext racellular fluid volume 04/21/2015 06/02/2015 Overview: Likely hypervolemic hyponatremia. Na improved form 126 to 130 this am. Patient is already on torsemide, spironolactone and metolazone at home. Plan: - Continue to diurese as kidney function allows. Palpitations 12/24/2014 08/21/2015 Hypoxemia 07/28/2014 08/21/2015 Vocal cord paralysis 03/31/2014 015 CTEPH (chronic thromboemboli c pulmonary hypertension) 04/29/2013 06/02/2015 Overview: - Will continue home meds including Bosentan, Tadalafil and Treprostinil. - O2 requirements as needed (uses 2L NC at home at night). - Continue home O2 - Patient was seen by lung transplant team. Tests required include: Quantitative perfusion scan (done) Gastric emptying study, esophageal manometry and 24hr pH study (ordered) Dental consultation (will need to call ) Social Work (on board) Iron deficiency anemia 01/25/201304/11 Overview: Menstruating female with iron deficiency Cardiomegaly 01/25/2013 09/02/2015 Overview: -- RV enlargement due to PH Exertional dyspnea 01/25/2013 5 Mediastinal adenopathy 01/25/201308/21 Hilar adenopathy 01/25/2013 08/21/2015 Overview: Noted on imaging- mother with a history of Sarcoid Could be 2/2 to chronic VTE and pHTN Lung nodules 01/25/2013 09/02/2015 Overview: Noted on imaging Follow Anticoagulation management encounter 01/25/2013 01/26/2013 SUMMARY 01/24/2013 02/02/2013 Overview: This is a 17 year old female with no significant PMH other than migraine and minimal allergies who developed significant SOB within the past 2 months, this progressed to the point where she was unable to walk up 2 flights of stairs and had mild chest pressure with activty. This worsened on a recent trip to [place] where she was on a 6 hour plane ride leading to a near syncopal episode. She presented ot her PCP for fatigue and was found to have anemia, elevated WBC count and on echo a elevated RVSP and dilated RV. She was sent for CT at her local Ed where she was found to have 2 small PE's. Patient sent for further evaluation. At admission upon review of her Ct there is no PE noted, she does however have significant cardiomegaly, increase RVSP and right atrial dilatation, will need to work up cause of PAH PAH (pulmonary artery hypertension) 01/24/2013 08/21/2015 Overview: Found to have elevated RVSP on echo with RV dilatation. ? Sarcoid as she has a family hx as well as polyarthralgia and fatigue - now with hilar lymphadenopathy RHC revealing PA HTN. 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 as angio was suggestive of multiple PEs small and chronic Plan: Further Remodulin titration as an out-patient q weekly, now on 7.5 ng/kg/min PET scan for VALERIA in the chest complete 02/07 Night sweats 01/24/2013 08/21/2015 Overview: Unclear etiology- Awaiting further PAH workup and Rheum w/u is neg so far documented as of this encounter (statuses as of 11/30/2023) [facility] History of Past illness Narrative* Problem Noted Date Diagnosed Date Resolved Date Abnormality of gait 12/24/2015 04/11/20 17 Ascites 07/13/2015 08/21/2015 Overview: Abdominal distension 07/09 KUB: air in stomach, repeat on 07/11: no dilated loops of bowel 07/11: US abdomen + ascites 07/13 Paracentesis ~ 2L straw colored fluid A/P: Abdomen soft, distended. No c/o abd. fullness. Monitor. Seizure 06/22/2015 08/21/2015 Overview: 06/22/2015 0230 Sudden new onset seizures - with generalized rhythmic contractions of all extremities plus facial twitching. Treated lorazepam and midazolam. Stat head CT negative for bleed. No acute metabolic changes on ABG. Concern for withdrawal from opioids - had been on high dose fentanyl infusion for 3 weeks -infusion d'tabitha on 06/18/15. Neuro consulted and continuous EEG monitoring ordered. Cont vEEG showing mild diffuse encephalopathy but no epileptiform form activity. A/P:: No seizure activity since 06/22. Keppra discontinued per ALD. Abdominal distension 06/15/2015 015 Overview: TF held. KUB pending. Fever 06/08/2015 08/21/2015 Overview: S/p CT chest/abd 06/18, which showed RLL collapse, with findings suggestive of necrotic PNA, and scattered upper lobe opacities; moderate ascites, cholelithiasis and gallbladder sludging without cholecystitis. Remains afebrile. No leukocytosis. - Urine cx (06/07), neg; Bld cx (06/11) x2 - NGTD - One blood culture (06/06) grew lactobacillus - Bld/UA cx drawn (06/16) - neg - BAL cx (06/20): smear shows GPC in clusters - Bld cx (06/21) NGTD Plan: - Meropenem stopped on 06/22 - Cont PO Vancomycin through hospitalization - F/u BAL cx (06/20) - Smear currently shows GPC in clusters but no organisms on culture; in the setting of resurgence of fevers, restarted on IV Vanc on 06/18->. Continue Vancomycin oral Mild protein-calorie malnutrition 06/04/2015 04/11/2017 Overview: Nutrition following. Ice chips only per beside swallow evaluation. Advanced to popcicle and applesauce 07/19 A/P: Tolerating TF via corpak at goal. Continue TF at current rate, monitor labs. Speech evaluation today Ischemia of hand 06/01/2015 06/05/2015 Overview: Radial a line removed- good doppler signals Rooke mittens placed Heparin infusion for goal pTT 45-55. Ischemia of lower extremity 06/01/2015 06/08/2015 Overview: Left lower extremity ischemia, has regained DP/PT doppler signals, but calf muscles remains somewhat tense. A/P: CKs normalizing, will stop following CK levels at this time. Vascular surgery signing off, appreciate assistance. 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 Radial art line was in LUE. Art line removed and arterial duplex showed radial artery thrombosis with patent ulnar artery. Pt now with strong pulse in L radial artery. Thrombocytopenia 06/01/2015 06/08/2015 Overview: Required massive transfusion after OR, placed on VA ECMO. Likely consumptive coagulopathy, however PF4 antibody sent given recent initiation of heparin IV. A/P: -Appears to be resolving, platelets 98,000 today. Cardiac insufficiency follow ing cardiac surgery 05/30/2015 06/15/2015 Overview: Severe RV, arrived from OR on iflolan and Epi. iFlolan weaned off A/P: Off epi and iFlolan. Open chest wound 05/30/2015 06/11/2015 Overview: S/p Lung Tx A/P: Dressing intact, continue ATBX while chest is open. Possible closure today Volume overload 05/30/2015 09/02/2015 Overview: + fluid balance due to multiple transfusions and volume replacement for shock in the early post op period. A/P: - 1.9 L/24hr. Continue diuresis, monitor UOP and labs. Personal history of ECMO 05/30/201502/2015 Overview: VV ECMO on 05/30, Transitioned to VA ECMO 05/31. VA ECMO weaned 06/03, back on VV ECMO Decannulated on 06/15. Stress hyperglycemia 05/30/2015 015 Overview: S/P Lung Tx A/P: Stress hyperglycemia exacerbated by surgery and pressors. RHI infusion for glycemic control. Shock liver - hepatic insufficiency 05/30/2015 06/05/2015 Overview: Markedly elevated LFTs, persistent coagulopathy and bleeding despite near- continuous trasnfusion of blood products. Also recurrent hypoglycemia requiring D50 boluses and D10W infusion. A/P: LFTs downtrending. 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 Progressively hypoxemic after arrival to ICU despite maximal MV support with lung protective ventilation and inhaled epoprostenol. NMB, inverted I:E ratio, high PEEP, low Vt with permissive hypercapnia only helped transiently. VV ECMO placed. Optimize vent settings, BPH, pain control, VV ECMO. Worsening lung compliance d/t hypervolemia (pulm edema) and/ or PGD. Continues on iFlolan. Switched to VA ECMO but maintaining very low Vt plus high PEEP. 06/03 Washout with VA ECMO weaned. VV ECMO initiated. S/p ECMO decannulation 06/15. S/p trach 06/19. Tolerated ~>11hrs on 07/06, but CXR with increased atelectasis following. A/P: CXR with bilateral opacities. Tolerating TC ATC. Continue TC, BPH, pain control, OOB. Consumption coagulopathy 05/29/2015 Overview: S/P Lung Transplant. Severe coagulopathic bleeding intraop and immediately postop. Received multiple blood products - plts, cryoppt, FFP and prbcs. Also rewarming for postop hypothermia. A/P: 4u pRBC and 2u platelets distribution coordinator to OR. PF4 antibody negative Chest remains open. Hypotension 05/29/2015 06/15/2015 Overview: Post Lung Tx. Severely vasoplegic intraop and immediately postop requiring multiple inopressors. Received methylene blue bolus intraop. Arrived ICU on epi, norepi, vasopressin and phenylephrine was added in ICU to maintain MAP >60mmHg. Wean for MAP 65 or greater. A/P: Off epi. Maintain MAPs 65-75. Acute blood loss anemia 05/29/201508/12 Overview: H/H remains low but stable. 07/10: H/H 6.6--transfused 1 unit 07/11: Transfused for 6.8.3 A/P: Monitor H/H, transfuse prn. Acute postoperative pain 05/29/2015 Overview: Post op lung Tx A/P: Dilaudid and acetaminophen prn for pain Hypothermia following anesthesia 05/29/2015 06/02/2015 Overview: 05/30/2015 Rewarming with forced warm air blanket Lactic acidosis 05/29/2015 06/03/2015 Overview: S/P Lung Tx A/P: Resolved with lactate levels of 1.2 today Right heart failure, NYHA class 4 04/27/2015 08/21/2015 Right heart failure due to p ulmonary hypertension 04/21/2015 06/02/2015 Overview: Patient with right heart failure stigmata (JVD, ascites and lower extremity edema). BP has been on the lower side. Oxygen requirement increased to 3L from 2 L Plan: - Will get repeat Echo with bubble study (last one from January 2015). - Place a PA cath and continue to diurese while monitoring her right heart pressures. - Will need IV lasix-received 80 IV lasix on 04/20 and 100 IV lasix on 04/21 - Continue spironolactone. JAMES (acute kidney injury) 04/21/2015 Overview: Baseline Cr 0.9 (04/09) -> Cr up to 2.4. A/P: JAMES is likely 2/2 ATN given hypotension and hemorrhage. Balance volume repletion with diuresis --> Cr continues to downtrend 1.92 -->1.37 today. Nephrology following - Maintain MAP 65 or greater, avoid nephrotoxic agents. Continue Lasix drip Hyponatremia with excess ext racellular fluid volume 04/21/2015 06/02/2015 Overview: Likely hypervolemic hyponatremia. Na improved form 126 to 130 this am. Patient is already on torsemide, spironolactone and metolazone at home. Plan: - Continue to diurese as kidney function allows. Palpitations 12/24/2014 08/21/2015 Hypoxemia 07/28/2014 08/21/2015 Vocal cord paralysis 03/31/2014 015 CTEPH (chronic thromboemboli c pulmonary hypertension) 04/29/2013 06/02/2015 Overview: - Will continue home meds including Bosentan, Tadalafil and Treprostinil. - O2 requirements as needed (uses 2L NC at home at night). - Continue home O2 - Patient was seen by lung transplant team. Tests required include: Quantitative perfusion scan (done) Gastric emptying study, esophageal manometry and 24hr pH study (ordered) Dental consultation (will need to call ) Social Work (on board) Iron deficiency anemia 01/25/201304/11 Overview: Menstruating female with iron deficiency Cardiomegaly 01/25/2013 09/02/2015 Overview: -- RV enlargement due to PH Exertional dyspnea 01/25/2013 5 Mediastinal adenopathy 01/25/201308/21 Hilar adenopathy 01/25/2013 08/21/2015 Overview: Noted on imaging- mother with a history of Sarcoid Could be 2/2 to chronic VTE and pHTN Lung nodules 01/25/2013 09/02/2015 Overview: Noted on imaging Follow Anticoagulation management encounter 01/25/2013 01/26/2013 SUMMARY 01/24/2013 02/02/2013 Overview: This is a 17 year old female with no significant PMH other than migraine and minimal allergies who developed significant SOB within the past 2 months, this progressed to the point where she was unable to walk up 2 flights of stairs and had mild chest pressure with activty. This worsened on a recent trip to [place] where she was on a 6 hour plane ride leading to a near syncopal episode. She presented ot her PCP for fatigue and was found to have anemia, elevated WBC count and on echo a elevated RVSP and dilated RV. She was sent for CT at her local Ed where she was found to have 2 small PE's. Patient sent for further evaluation. At admission upon review of her Ct there is no PE noted, she does however have significant cardiomegaly, increase RVSP and right atrial dilatation, will need to work up cause of PAH PAH (pulmonary artery hypertension) 01/24/2013 08/21/2015 Overview: Found to have elevated RVSP on echo with RV dilatation. ? Sarcoid as she has a family hx as well as polyarthralgia and fatigue - now with hilar lymphadenopathy RHC revealing PA HTN. 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 as angio was suggestive of multiple PEs small and chronic Plan: Further Remodulin titration as an out-patient q weekly, now on 7.5 ng/kg/min PET scan for VALERIA in the chest complete 02/07 Night sweats 01/24/2013 08/21/2015 Overview: Unclear etiology- Awaiting further PAH workup and Rheum w/u is neg so far documented as of this encounter (statuses as of 12/01/2023) [facility] History of Past illness Narrative* Problem Noted Date Diagnosed Date Resolved Date Abnormality of gait 12/24/2015 04/11/20 17 Ascites 07/13/2015 08/21/2015 Overview: Abdominal distension 07/09 KUB: air in stomach, repeat on 07/11: no dilated loops of bowel 07/11: US abdomen + ascites 07/13 Paracentesis ~ 2L straw colored fluid A/P: Abdomen soft, distended. No c/o abd. fullness. Monitor. Seizure 06/22/2015 08/21/2015 Overview: 06/22/2015 0230 Sudden new onset seizures - with generalized rhythmic contractions of all extremities plus facial twitching. Treated lorazepam and midazolam. Stat head CT negative for bleed. No acute metabolic changes on ABG. Concern for withdrawal from opioids - had been on high dose fentanyl infusion for 3 weeks -infusion d'tabitha on 06/18/15. Neuro consulted and continuous EEG monitoring ordered. Cont vEEG showing mild diffuse encephalopathy but no epileptiform form activity. A/P:: No seizure activity since 06/22. Keppra discontinued per ALD. Abdominal distension 06/15/2015 015 Overview: TF held. KUB pending. Fever 06/08/2015 08/21/2015 Overview: S/p CT chest/abd 06/18, which showed RLL collapse, with findings suggestive of necrotic PNA, and scattered upper lobe opacities; moderate ascites, cholelithiasis and gallbladder sludging without cholecystitis. Remains afebrile. No leukocytosis. - Urine cx (06/07), neg; Bld cx (06/11) x2 - NGTD - One blood culture (06/06) grew lactobacillus - Bld/UA cx drawn (06/16) - neg - BAL cx (06/20): smear shows GPC in clusters - Bld cx (06/21) NGTD Plan: - Meropenem stopped on 06/22 - Cont PO Vancomycin through hospitalization - F/u BAL cx (06/20) - Smear currently shows GPC in clusters but no organisms on culture; in the setting of resurgence of fevers, restarted on IV Vanc on 06/18->. Continue Vancomycin oral Mild protein-calorie malnutrition 06/04/2015 04/11/2017 Overview: Nutrition following. Ice chips only per beside swallow evaluation. Advanced to popcicle and applesauce 07/19 A/P: Tolerating TF via corpak at goal. Continue TF at current rate, monitor labs. Speech evaluation today Ischemia of hand 06/01/2015 06/05/2015 Overview: Radial a line removed- good doppler signals Rooke mittens placed Heparin infusion for goal pTT 45-55. Ischemia of lower extremity 06/01/2015 06/08/2015 Overview: Left lower extremity ischemia, has regained DP/PT doppler signals, but calf muscles remains somewhat tense. A/P: CKs normalizing, will stop following CK levels at this time. Vascular surgery signing off, appreciate assistance. 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 Radial art line was in LUE. Art line removed and arterial duplex showed radial artery thrombosis with patent ulnar artery. Pt now with strong pulse in L radial artery. Thrombocytopenia 06/01/2015 06/08/2015 Overview: Required massive transfusion after OR, placed on VA ECMO. Likely consumptive coagulopathy, however PF4 antibody sent given recent initiation of heparin IV. A/P: -Appears to be resolving, platelets 98,000 today. Cardiac insufficiency follow ing cardiac surgery 05/30/2015 06/15/2015 Overview: Severe RV, arrived from OR on iflolan and Epi. iFlolan weaned off A/P: Off epi and iFlolan. Open chest wound 05/30/2015 06/11/2015 Overview: S/p Lung Tx A/P: Dressing intact, continue ATBX while chest is open. Possible closure today Volume overload 05/30/2015 09/02/2015 Overview: + fluid balance due to multiple transfusions and volume replacement for shock in the early post op period. A/P: - 1.9 L/24hr. Continue diuresis, monitor UOP and labs. Personal history of ECMO 05/30/201502/2015 Overview: VV ECMO on 05/30, Transitioned to VA ECMO 05/31. VA ECMO weaned 06/03, back on VV ECMO Decannulated on 06/15. Stress hyperglycemia 05/30/2015 015 Overview: S/P Lung Tx A/P: Stress hyperglycemia exacerbated by surgery and pressors. RHI infusion for glycemic control. Shock liver - hepatic insufficiency 05/30/2015 06/05/2015 Overview: Markedly elevated LFTs, persistent coagulopathy and bleeding despite near- continuous trasnfusion of blood products. Also recurrent hypoglycemia requiring D50 boluses and D10W infusion. A/P: LFTs downtrending. 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 Progressively hypoxemic after arrival to ICU despite maximal MV support with lung protective ventilation and inhaled epoprostenol. NMB, inverted I:E ratio, high PEEP, low Vt with permissive hypercapnia only helped transiently. VV ECMO placed. Optimize vent settings, BPH, pain control, VV ECMO. Worsening lung compliance d/t hypervolemia (pulm edema) and/ or PGD. Continues on iFlolan. Switched to VA ECMO but maintaining very low Vt plus high PEEP. 06/03 Washout with VA ECMO weaned. VV ECMO initiated. S/p ECMO decannulation 06/15. S/p trach 06/19. Tolerated ~>11hrs on 07/06, but CXR with increased atelectasis following. A/P: CXR with bilateral opacities. Tolerating TC ATC. Continue TC, BPH, pain control, OOB. Consumption coagulopathy 05/29/2015 Overview: S/P Lung Transplant. Severe coagulopathic bleeding intraop and immediately postop. Received multiple blood products - plts, cryoppt, FFP and prbcs. Also rewarming for postop hypothermia. A/P: 4u pRBC and 2u platelets distribution coordinator to OR. PF4 antibody negative Chest remains open. Hypotension 05/29/2015 06/15/2015 Overview: Post Lung Tx. Severely vasoplegic intraop and immediately postop requiring multiple inopressors. Received methylene blue bolus intraop. Arrived ICU on epi, norepi, vasopressin and phenylephrine was added in ICU to maintain MAP >60mmHg. Wean for MAP 65 or greater. A/P: Off epi. Maintain MAPs 65-75. Acute blood loss anemia 05/29/201508/12 Overview: H/H remains low but stable. 07/10: H/H 6.6--transfused 1 unit 07/11: Transfused for 6.8.3 A/P: Monitor H/H, transfuse prn. Acute postoperative pain 05/29/2015 Overview: Post op lung Tx A/P: Dilaudid and acetaminophen prn for pain Hypothermia following anesthesia 05/29/2015 06/02/2015 Overview: 05/30/2015 Rewarming with forced warm air blanket Lactic acidosis 05/29/2015 06/03/2015 Overview: S/P Lung Tx A/P: Resolved with lactate levels of 1.2 today Right heart failure, NYHA class 4 04/27/2015 08/21/2015 Right heart failure due to p ulmonary hypertension 04/21/2015 06/02/2015 Overview: Patient with right heart failure stigmata (JVD, ascites and lower extremity edema). BP has been on the lower side. Oxygen requirement increased to 3L from 2 L Plan: - Will get repeat Echo with bubble study (last one from January 2015). - Place a PA cath and continue to diurese while monitoring her right heart pressures. - Will need IV lasix-received 80 IV lasix on 04/20 and 100 IV lasix on 04/21 - Continue spironolactone. JAMES (acute kidney injury) 04/21/2015 Overview: Baseline Cr 0.9 (04/09) -> Cr up to 2.4. A/P: JAMES is likely 2/2 ATN given hypotension and hemorrhage. Balance volume repletion with diuresis --> Cr continues to downtrend 1.92 -->1.37 today. Nephrology following - Maintain MAP 65 or greater, avoid nephrotoxic agents. Continue Lasix drip Hyponatremia with excess ext racellular fluid volume 04/21/2015 06/02/2015 Overview: Likely hypervolemic hyponatremia. Na improved form 126 to 130 this am. Patient is already on torsemide, spironolactone and metolazone at home. Plan: - Continue to diurese as kidney function allows. Palpitations 12/24/2014 08/21/2015 Hypoxemia 07/28/2014 08/21/2015 Vocal cord paralysis 03/31/2014 015 CTEPH (chronic thromboemboli c pulmonary hypertension) 04/29/2013 06/02/2015 Overview: - Will continue home meds including Bosentan, Tadalafil and Treprostinil. - O2 requirements as needed (uses 2L NC at home at night). - Continue home O2 - Patient was seen by lung transplant team. Tests required include: Quantitative perfusion scan (done) Gastric emptying study, esophageal manometry and 24hr pH study (ordered) Dental consultation (will need to call ) Social Work (on board) Iron deficiency anemia 01/25/201304/11 Overview: Menstruating female with iron deficiency Cardiomegaly 01/25/2013 09/02/2015 Overview: -- RV enlargement due to PH Exertional dyspnea 01/25/2013 5 Mediastinal adenopathy 01/25/201308/21 Hilar adenopathy 01/25/2013 08/21/2015 Overview: Noted on imaging- mother with a history of Sarcoid Could be 2/2 to chronic VTE and pHTN Lung nodules 01/25/2013 09/02/2015 Overview: Noted on imaging Follow Anticoagulation management encounter 01/25/2013 01/26/2013 SUMMARY 01/24/2013 02/02/2013 Overview: This is a 17 year old female with no significant PMH other than migraine and minimal allergies who developed significant SOB within the past 2 months, this progressed to the point where she was unable to walk up 2 flights of stairs and had mild chest pressure with activty. This worsened on a recent trip to [place] where she was on a 6 hour plane ride leading to a near syncopal episode. She presented ot her PCP for fatigue and was found to have anemia, elevated WBC count and on echo a elevated RVSP and dilated RV. She was sent for CT at her local Ed where she was found to have 2 small PE's. Patient sent for further evaluation. At admission upon review of her Ct there is no PE noted, she does however have significant cardiomegaly, increase RVSP and right atrial dilatation, will need to work up cause of PAH PAH (pulmonary artery hypertension) 01/24/2013 08/21/2015 Overview: Found to have elevated RVSP on echo with RV dilatation. ? Sarcoid as she has a family hx as well as polyarthralgia and fatigue - now with hilar lymphadenopathy RHC revealing PA HTN. 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 as angio was suggestive of multiple PEs small and chronic Plan: Further Remodulin titration as an out-patient q weekly, now on 7.5 ng/kg/min PET scan for VALERIA in the chest complete 02/07 Night sweats 01/24/2013 08/21/2015 Overview: Unclear etiology- Awaiting further PAH workup and Rheum w/u is neg so far documented as of this encounter (statuses as of 12/01/2023) [facility] History of Past illness Narrative* Problem Noted Date Diagnosed Date Resolved Date Abnormality of gait 12/24/2015 04/11/20 17 Ascites 07/13/2015 08/21/2015 Overview: Abdominal distension 07/09 KUB: air in stomach, repeat on 07/11: no dilated loops of bowel 07/11: US abdomen + ascites 07/13 Paracentesis ~ 2L straw colored fluid A/P: Abdomen soft, distended. No c/o abd. fullness. Monitor. Seizure 06/22/2015 08/21/2015 Overview: 06/22/2015 0230 Sudden new onset seizures - with generalized rhythmic contractions of all extremities plus facial twitching. Treated lorazepam and midazolam. Stat head CT negative for bleed. No acute metabolic changes on ABG. Concern for withdrawal from opioids - had been on high dose fentanyl infusion for 3 weeks -infusion d'tabitha on 06/18/15. Neuro consulted and continuous EEG monitoring ordered. Cont vEEG showing mild diffuse encephalopathy but no epileptiform form activity. A/P:: No seizure activity since 06/22. Keppra discontinued per ALD. Abdominal distension 06/15/2015 015 Overview: TF held. KUB pending. Fever 06/08/2015 08/21/2015 Overview: S/p CT chest/abd 06/18, which showed RLL collapse, with findings suggestive of necrotic PNA, and scattered upper lobe opacities; moderate ascites, cholelithiasis and gallbladder sludging without cholecystitis. Remains afebrile. No leukocytosis. - Urine cx (06/07), neg; Bld cx (06/11) x2 - NGTD - One blood culture (06/06) grew lactobacillus - Bld/UA cx drawn (06/16) - neg - BAL cx (06/20): smear shows GPC in clusters - Bld cx (06/21) NGTD Plan: - Meropenem stopped on 06/22 - Cont PO Vancomycin through hospitalization - F/u BAL cx (06/20) - Smear currently shows GPC in clusters but no organisms on culture; in the setting of resurgence of fevers, restarted on IV Vanc on 06/18->. Continue Vancomycin oral Mild protein-calorie malnutrition 06/04/2015 04/11/2017 Overview: Nutrition following. Ice chips only per beside swallow evaluation. Advanced to popcicle and applesauce 07/19 A/P: Tolerating TF via corpak at goal. Continue TF at current rate, monitor labs. Speech evaluation today Ischemia of hand 06/01/2015 06/05/2015 Overview: Radial a line removed- good doppler signals Dexter ndiaye placed Heparin infusion for goal pTT 45-55. Ischemia of lower extremity 06/01/2015 06/08/2015 Overview: Left lower extremity ischemia, has regained DP/PT doppler signals, but calf muscles remains somewhat tense. A/P: CKs normalizing, will stop following CK levels at this time. Vascular surgery signing off, appreciate assistance. 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 Radial art line was in LUE. Art line removed and arterial duplex showed radial artery thrombosis with patent ulnar artery. Pt now with strong pulse in L radial artery. Thrombocytopenia 06/01/2015 06/08/2015 Overview: Required massive transfusion after OR, placed on VA ECMO. Likely consumptive coagulopathy, however PF4 antibody sent given recent initiation of heparin IV. A/P: -Appears to be resolving, platelets 98,000 today. Cardiac insufficiency follow ing cardiac surgery 05/30/2015 06/15/2015 Overview: Severe RV, arrived from OR on iflolan and Epi. iFlolan weaned off A/P: Off epi and iFlolan. Open chest wound 05/30/2015 06/11/2015 Overview: S/p Lung Tx A/P: Dressing intact, continue ATBX while chest is open. Possible closure today Volume overload 05/30/2015 09/02/2015 Overview: + fluid balance due to multiple transfusions and volume replacement for shock in the early post op period. A/P: - 1.9 L/24hr. Continue diuresis, monitor UOP and labs. Personal history of ECMO 05/30/201502/2015 Overview: VV ECMO on 05/30, Transitioned to VA ECMO 05/31. VA ECMO weaned 06/03, back on VV ECMO Decannulated on 06/15. Stress hyperglycemia 05/30/2015 015 Overview: S/P Lung Tx A/P: Stress hyperglycemia exacerbated by surgery and pressors. RHI infusion for glycemic control. Shock liver - hepatic insufficiency 05/30/2015 06/05/2015 Overview: Markedly elevated LFTs, persistent coagulopathy and bleeding despite near- continuous trasnfusion of blood products. Also recurrent hypoglycemia requiring D50 boluses and D10W infusion. A/P: LFTs downtrending. 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 Progressively hypoxemic after arrival to ICU despite maximal MV support with lung protective ventilation and inhaled epoprostenol. NMB, inverted I:E ratio, high PEEP, low Vt with permissive hypercapnia only helped transiently. VV ECMO placed. Optimize vent settings, BPH, pain control, VV ECMO. Worsening lung compliance d/t hypervolemia (pulm edema) and/ or PGD. Continues on iFlolan. Switched to VA ECMO but maintaining very low Vt plus high PEEP. 06/03 Washout with VA ECMO weaned. VV ECMO initiated. S/p ECMO decannulation 06/15. S/p trach 06/19. Tolerated ~>11hrs on 07/06, but CXR with increased atelectasis following. A/P: CXR with bilateral opacities. Tolerating TC ATC. Continue TC, BPH, pain control, OOB. Consumption coagulopathy 05/29/2015 Overview: S/P Lung Transplant. Severe coagulopathic bleeding intraop and immediately postop. Received multiple blood products - plts, cryoppt, FFP and prbcs. Also rewarming for postop hypothermia. A/P: 4u pRBC and 2u platelets distribution coordinator to OR. PF4 antibody negative Chest remains open. Hypotension 05/29/2015 06/15/2015 Overview: Post Lung Tx. Severely vasoplegic intraop and immediately postop requiring multiple inopressors. Received methylene blue bolus intraop. Arrived ICU on epi, norepi, vasopressin and phenylephrine was added in ICU to maintain MAP >60mmHg. Wean for MAP 65 or greater. A/P: Off epi. Maintain MAPs 65-75. Acute blood loss anemia 05/29/201508/12 Overview: H/H remains low but stable. 07/10: H/H 6.6--transfused 1 unit 07/11: Transfused for 6.8.3 A/P: Monitor H/H, transfuse prn. Acute postoperative pain 05/29/2015 Overview: Post op lung Tx A/P: Dilaudid and acetaminophen prn for pain Hypothermia following anesthesia 05/29/2015 06/02/2015 Overview: 05/30/2015 Rewarming with forced warm air blanket Lactic acidosis 05/29/2015 06/03/2015 Overview: S/P Lung Tx A/P: Resolved with lactate levels of 1.2 today Right heart failure, NYHA class 4 04/27/2015 08/21/2015 Right heart failure due to p ulmonary hypertension 04/21/2015 06/02/2015 Overview: Patient with right heart failure stigmata (JVD, ascites and lower extremity edema). BP has been on the lower side. Oxygen requirement increased to 3L from 2 L Plan: - Will get repeat Echo with bubble study (last one from January 2015). - Place a PA cath and continue to diurese while monitoring her right heart pressures. - Will need IV lasix-received 80 IV lasix on 04/20 and 100 IV lasix on 04/21 - Continue spironolactone. JAMES (acute kidney injury) 04/21/2015 Overview: Baseline Cr 0.9 (04/09) -> Cr up to 2.4. A/P: JAMES is likely 2/2 ATN given hypotension and hemorrhage. Balance volume repletion with diuresis --> Cr continues to downtrend 1.92 -->1.37 today. Nephrology following - Maintain MAP 65 or greater, avoid nephrotoxic agents. Continue Lasix drip Hyponatremia with excess ext racellular fluid volume 04/21/2015 06/02/2015 Overview: Likely hypervolemic hyponatremia. Na improved form 126 to 130 this am. Patient is already on torsemide, spironolactone and metolazone at home. Plan: - Continue to diurese as kidney function allows. Palpitations 12/24/2014 08/21/2015 Hypoxemia 07/28/2014 08/21/2015 Vocal cord paralysis 03/31/2014 015 CTEPH (chronic thromboemboli c pulmonary hypertension) 04/29/2013 06/02/2015 Overview: - Will continue home meds including Bosentan, Tadalafil and Treprostinil. - O2 requirements as needed (uses 2L NC at home at night). - Continue home O2 - Patient was seen by lung transplant team. Tests required include: Quantitative perfusion scan (done) Gastric emptying study, esophageal manometry and 24hr pH study (ordered) Dental consultation (will need to call ) Social Work (on board) Iron deficiency anemia 01/25/201304/11 Overview: Menstruating female with iron deficiency Cardiomegaly 01/25/2013 09/02/2015 Overview: -- RV enlargement due to PH Exertional dyspnea 01/25/2013 5 Mediastinal adenopathy 01/25/201308/21 Hilar adenopathy 01/25/2013 08/21/2015 Overview: Noted on imaging- mother with a history of Sarcoid Could be 2/2 to chronic VTE and pHTN Lung nodules 01/25/2013 09/02/2015 Overview: Noted on imaging Follow Anticoagulation management encounter 01/25/2013 01/26/2013 SUMMARY 01/24/2013 02/02/2013 Overview: This is a 17 year old female with no significant PMH other than migraine and minimal allergies who developed significant SOB within the past 2 months, this progressed to the point where she was unable to walk up 2 flights of stairs and had mild chest pressure with activty. This worsened on a recent trip to [place] where she was on a 6 hour plane ride leading to a near syncopal episode. She presented ot her PCP for fatigue and was found to have anemia, elevated WBC count and on echo a elevated RVSP and dilated RV. She was sent for CT at her local Ed where she was found to have 2 small PE's. Patient sent for further evaluation. At admission upon review of her Ct there is no PE noted, she does however have significant cardiomegaly, increase RVSP and right atrial dilatation, will need to work up cause of PAH PAH (pulmonary artery hypertension) 01/24/2013 08/21/2015 Overview: Found to have elevated RVSP on echo with RV dilatation. ? Sarcoid as she has a family hx as well as polyarthralgia and fatigue - now with hilar lymphadenopathy RHC revealing PA HTN. 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 as angio was suggestive of multiple PEs small and chronic Plan: Further Remodulin titration as an out-patient q weekly, now on 7.5 ng/kg/min PET scan for VALERIA in the chest complete 02/07 Night sweats 01/24/2013 08/21/2015 Overview: Unclear etiology- Awaiting further PAH workup and Rheum w/u is neg so far documented as of this encounter (statuses as of 12/01/2023) [facility]04[facility] History of Past illness Narrative* Problem Noted Date Diagnosed Date Resolved Date Abnormality of gait 12/24/2015 04/11/20 17 Ascites 07/13/2015 08/21/2015 Overview: Abdominal distension 07/09 KUB: air in stomach, repeat on 07/11: no dilated loops of bowel 07/11: US abdomen + ascites 07/13 Paracentesis ~ 2L straw colored fluid A/P: Abdomen soft, distended. No c/o abd. fullness. Monitor. Seizure 06/22/2015 08/21/2015 Overview: 06/22/2015 0230 Sudden new onset seizures - with generalized rhythmic contractions of all extremities plus facial twitching. Treated lorazepam and midazolam. Stat head CT negative for bleed. No acute metabolic changes on ABG. Concern for withdrawal from opioids - had been on high dose fentanyl infusion for 3 weeks -infusion d'tabitha on 06/18/15. Neuro consulted and continuous EEG monitoring ordered. Cont vEEG showing mild diffuse encephalopathy but no epileptiform form activity. A/P:: No seizure activity since 06/22. Keppra discontinued per ALD. Abdominal distension 06/15/2015 015 Overview: TF held. KUB pending. Fever 06/08/2015 08/21/2015 Overview: S/p CT chest/abd 06/18, which showed RLL collapse, with findings suggestive of necrotic PNA, and scattered upper lobe opacities; moderate ascites, cholelithiasis and gallbladder sludging without cholecystitis. Remains afebrile. No leukocytosis. - Urine cx (06/07), neg; Bld cx (06/11) x2 - NGTD - One blood culture (06/06) grew lactobacillus - Bld/UA cx drawn (06/16) - neg - BAL cx (06/20): smear shows GPC in clusters - Bld cx (06/21) NGTD Plan: - Meropenem stopped on 06/22 - Cont PO Vancomycin through hospitalization - F/u BAL cx (06/20) - Smear currently shows GPC in clusters but no organisms on culture; in the setting of resurgence of fevers, restarted on IV Vanc on 06/18->. Continue Vancomycin oral Mild protein-calorie malnutrition 06/04/2015 04/11/2017 Overview: Nutrition following. Ice chips only per beside swallow evaluation. Advanced to popcicle and applesauce 07/19 A/P: Tolerating TF via corpak at goal. Continue TF at current rate, monitor labs. Speech evaluation today Ischemia of hand 06/01/2015 06/05/2015 Overview: Radial a line removed- good doppler signals Dexter ndiaye placed Heparin infusion for goal pTT 45-55. Ischemia of lower extremity 06/01/2015 06/08/2015 Overview: Left lower extremity ischemia, has regained DP/PT doppler signals, but calf muscles remains somewhat tense. A/P: CKs normalizing, will stop following CK levels at this time. Vascular surgery signing off, appreciate assistance. 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 Radial art line was in LUE. Art line removed and arterial duplex showed radial artery thrombosis with patent ulnar artery. Pt now with strong pulse in L radial artery. Thrombocytopenia 06/01/2015 06/08/2015 Overview: Required massive transfusion after OR, placed on VA ECMO. Likely consumptive coagulopathy, however PF4 antibody sent given recent initiation of heparin IV. A/P: -Appears to be resolving, platelets 98,000 today. Cardiac insufficiency follow ing cardiac surgery 05/30/2015 06/15/2015 Overview: Severe RV, arrived from OR on iflolan and Epi. iFlolan weaned off A/P: Off epi and iFlolan. Open chest wound 05/30/2015 06/11/2015 Overview: S/p Lung Tx A/P: Dressing intact, continue ATBX while chest is open. Possible closure today Volume overload 05/30/2015 09/02/2015 Overview: + fluid balance due to multiple transfusions and volume replacement for shock in the early post op period. A/P: - 1.9 L/24hr. Continue diuresis, monitor UOP and labs. Personal history of ECMO 05/30/201502/2015 Overview: VV ECMO on 05/30, Transitioned to VA ECMO 05/31. VA ECMO weaned 06/03, back on VV ECMO Decannulated on 06/15. Stress hyperglycemia 05/30/2015 015 Overview: S/P Lung Tx A/P: Stress hyperglycemia exacerbated by surgery and pressors. RHI infusion for glycemic control. Shock liver - hepatic insufficiency 05/30/2015 06/05/2015 Overview: Markedly elevated LFTs, persistent coagulopathy and bleeding despite near- continuous trasnfusion of blood products. Also recurrent hypoglycemia requiring D50 boluses and D10W infusion. A/P: LFTs downtrending. 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 Progressively hypoxemic after arrival to ICU despite maximal MV support with lung protective ventilation and inhaled epoprostenol. NMB, inverted I:E ratio, high PEEP, low Vt with permissive hypercapnia only helped transiently. VV ECMO placed. Optimize vent settings, BPH, pain control, VV ECMO. Worsening lung compliance d/t hypervolemia (pulm edema) and/ or PGD. Continues on iFlolan. Switched to VA ECMO but maintaining very low Vt plus high PEEP. 06/03 Washout with VA ECMO weaned. VV ECMO initiated. S/p ECMO decannulation 06/15. S/p trach 06/19. Tolerated ~>11hrs on 07/06, but CXR with increased atelectasis following. A/P: CXR with bilateral opacities. Tolerating TC ATC. Continue TC, BPH, pain control, OOB. Consumption coagulopathy 05/29/2015 Overview: S/P Lung Transplant. Severe coagulopathic bleeding intraop and immediately postop. Received multiple blood products - plts, cryoppt, FFP and prbcs. Also rewarming for postop hypothermia. A/P: 4u pRBC and 2u platelets distribution coordinator to OR. PF4 antibody negative Chest remains open. Hypotension 05/29/2015 06/15/2015 Overview: Post Lung Tx. Severely vasoplegic intraop and immediately postop requiring multiple inopressors. Received methylene blue bolus intraop. Arrived ICU on epi, norepi, vasopressin and phenylephrine was added in ICU to maintain MAP >60mmHg. Wean for MAP 65 or greater. A/P: Off epi. Maintain MAPs 65-75. Acute blood loss anemia 05/29/201508/12 Overview: H/H remains low but stable. 07/10: H/H 6.6/--transfused 1 unit 07/11: Transfused for 6.8.3 A/P: Monitor H/H, transfuse prn. Acute postoperative pain 05/29/2015 Overview: Post op lung Tx A/P: Dilaudid and acetaminophen prn for pain Hypothermia following anesthesia 05/29/2015 06/02/2015 Overview: 05/30/2015 Rewarming with forced warm air blanket Lactic acidosis 05/29/2015 06/03/2015 Overview: S/P Lung Tx A/P: Resolved with lactate levels of 1.2 today Right heart failure, NYHA class 4 04/27/2015 08/21/2015 Right heart failure due to p ulmonary hypertension 04/21/2015 06/02/2015 Overview: Patient with right heart failure stigmata (JVD, ascites and lower extremity edema). BP has been on the lower side. Oxygen requirement increased to 3L from 2 L Plan: - Will get repeat Echo with bubble study (last one from January 2015). - Place a PA cath and continue to diurese while monitoring her right heart pressures. - Will need IV lasix-received 80 IV lasix on 04/20 and 100 IV lasix on 04/21 - Continue spironolactone. JAMES (acute kidney injury) 04/21/2015 Overview: Baseline Cr 0.9 (04/09) -> Cr up to 2.4. A/P: JAMES is likely 2/2 ATN given hypotension and hemorrhage. Balance volume repletion with diuresis --> Cr continues to downtrend 1.92 -->1.37 today. Nephrology following - Maintain MAP 65 or greater, avoid nephrotoxic agents. Continue Lasix drip Hyponatremia with excess ext racellular fluid volume 04/21/2015 06/02/2015 Overview: Likely hypervolemic hyponatremia. Na improved form 126 to 130 this am. Patient is already on torsemide, spironolactone and metolazone at home. Plan: - Continue to diurese as kidney function allows. Palpitations 12/24/2014 08/21/2015 Hypoxemia 07/28/2014 08/21/2015 Vocal cord paralysis 03/31/2014 015 CTEPH (chronic thromboemboli c pulmonary hypertension) 04/29/2013 06/02/2015 Overview: - Will continue home meds including Bosentan, Tadalafil and Treprostinil. - O2 requirements as needed (uses 2L NC at home at night). - Continue home O2 - Patient was seen by lung transplant team. Tests required include: Quantitative perfusion scan (done) Gastric emptying study, esophageal manometry and 24hr pH study (ordered) Dental consultation (will need to call ) Social Work (on board) Iron deficiency anemia 01/25/201304/11 Overview: Menstruating female with iron deficiency Cardiomegaly 01/25/2013 09/02/2015 Overview: -- RV enlargement due to PH Exertional dyspnea 01/25/2013 5 Mediastinal adenopathy 01/25/201308/21 Hilar adenopathy 01/25/2013 08/21/2015 Overview: Noted on imaging- mother with a history of Sarcoid Could be 2/2 to chronic VTE and pHTN Lung nodules 01/25/2013 09/02/2015 Overview: Noted on imaging Follow Anticoagulation management encounter 01/25/2013 01/26/2013 SUMMARY 01/24/2013 02/02/2013 Overview: This is a 17 year old female with no significant PMH other than migraine and minimal allergies who developed significant SOB within the past 2 months, this progressed to the point where she was unable to walk up 2 flights of stairs and had mild chest pressure with activty. This worsened on a recent trip to [place] where she was on a 6 hour plane ride leading to a near syncopal episode. She presented ot her PCP for fatigue and was found to have anemia, elevated WBC count and on echo a elevated RVSP and dilated RV. She was sent for CT at her local Ed where she was found to have 2 small PE's. Patient sent for further evaluation. At admission upon review of her Ct there is no PE noted, she does however have significant cardiomegaly, increase RVSP and right atrial dilatation, will need to work up cause of PAH PAH (pulmonary artery hypertension) 01/24/2013 08/21/2015 Overview: Found to have elevated RVSP on echo with RV dilatation. ? Sarcoid as she has a family hx as well as polyarthralgia and fatigue - now with hilar lymphadenopathy RHC revealing PA HTN. 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 as angio was suggestive of multiple PEs small and chronic Plan: Further Remodulin titration as an out-patient q weekly, now on 7.5 ng/kg/min PET scan for VALERIA in the chest complete 02/07 Night sweats 01/24/2013 08/21/2015 Overview: Unclear etiology- Awaiting further PAH workup and Rheum w/u is neg so far documented as of this encounter (statuses as of 12/12/2023) [facility] History of Past illness Narrative* Problem Noted Date Diagnosed Date Resolved Date Abnormality of gait 12/24/2015 04/11/20 17 Ascites 07/13/2015 08/21/2015 Overview: Abdominal distension 07/09 KUB: air in stomach, repeat on 07/11: no dilated loops of bowel 07/11: US abdomen + ascites 07/13 Paracentesis ~ 2L straw colored fluid A/P: Abdomen soft, distended. No c/o abd. fullness. Monitor. Seizure 06/22/2015 08/21/2015 Overview: 06/22/2015 0230 Sudden new onset seizures - with generalized rhythmic contractions of all extremities plus facial twitching. Treated lorazepam and midazolam. Stat head CT negative for bleed. No acute metabolic changes on ABG. Concern for withdrawal from opioids - had been on high dose fentanyl infusion for 3 weeks -infusion d'tabitha on 06/18/15. Neuro consulted and continuous EEG monitoring ordered. Cont vEEG showing mild diffuse encephalopathy but no epileptiform form activity. A/P:: No seizure activity since 06/22. Keppra discontinued per ALD. Abdominal distension 06/15/2015 015 Overview: TF held. KUB pending. Fever 06/08/2015 08/21/2015 Overview: S/p CT chest/abd 06/18, which showed RLL collapse, with findings suggestive of necrotic PNA, and scattered upper lobe opacities; moderate ascites, cholelithiasis and gallbladder sludging without cholecystitis. Remains afebrile. No leukocytosis. - Urine cx (06/07), neg; Bld cx (06/11) x2 - NGTD - One blood culture (06/06) grew lactobacillus - Bld/UA cx drawn (06/16) - neg - BAL cx (06/20): smear shows GPC in clusters - Bld cx (06/21) NGTD Plan: - Meropenem stopped on 06/22 - Cont PO Vancomycin through hospitalization - F/u BAL cx (06/20) - Smear currently shows GPC in clusters but no organisms on culture; in the setting of resurgence of fevers, restarted on IV Vanc on 06/18->. Continue Vancomycin oral Mild protein-calorie malnutrition 06/04/2015 04/11/2017 Overview: Nutrition following. Ice chips only per beside swallow evaluation. Advanced to popcicle and applesauce 07/19 A/P: Tolerating TF via corpak at goal. Continue TF at current rate, monitor labs. Speech evaluation today Ischemia of hand 06/01/2015 06/05/2015 Overview: Radial a line removed- good doppler signals Dexter ndiaye placed Heparin infusion for goal pTT 45-55. Ischemia of lower extremity 06/01/2015 06/08/2015 Overview: Left lower extremity ischemia, has regained DP/PT doppler signals, but calf muscles remains somewhat tense. A/P: CKs normalizing, will stop following CK levels at this time. Vascular surgery signing off, appreciate assistance. 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 Radial art line was in LUE. Art line removed and arterial duplex showed radial artery thrombosis with patent ulnar artery. Pt now with strong pulse in L radial artery. Thrombocytopenia 06/01/2015 06/08/2015 Overview: Required massive transfusion after OR, placed on VA ECMO. Likely consumptive coagulopathy, however PF4 antibody sent given recent initiation of heparin IV. A/P: -Appears to be resolving, platelets 98,000 today. Cardiac insufficiency follow ing cardiac surgery 05/30/2015 06/15/2015 Overview: Severe RV, arrived from OR on iflolan and Epi. iFlolan weaned off A/P: Off epi and iFlolan. Open chest wound 05/30/2015 06/11/2015 Overview: S/p Lung Tx A/P: Dressing intact, continue ATBX while chest is open. Possible closure today Volume overload 05/30/2015 09/02/2015 Overview: + fluid balance due to multiple transfusions and volume replacement for shock in the early post op period. A/P: - 1.9 L/24hr. Continue diuresis, monitor UOP and labs. Personal history of ECMO 05/30/201502/2015 Overview: VV ECMO on 05/30, Transitioned to VA ECMO 05/31. VA ECMO weaned 06/03, back on VV ECMO Decannulated on 06/15. Stress hyperglycemia 05/30/2015 015 Overview: S/P Lung Tx A/P: Stress hyperglycemia exacerbated by surgery and pressors. RHI infusion for glycemic control. Shock liver - hepatic insufficiency 05/30/2015 06/05/2015 Overview: Markedly elevated LFTs, persistent coagulopathy and bleeding despite near- continuous trasnfusion of blood products. Also recurrent hypoglycemia requiring D50 boluses and D10W infusion. A/P: LFTs downtrending. 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 Progressively hypoxemic after arrival to ICU despite maximal MV support with lung protective ventilation and inhaled epoprostenol. NMB, inverted I:E ratio, high PEEP, low Vt with permissive hypercapnia only helped transiently. VV ECMO placed. Optimize vent settings, BPH, pain control, VV ECMO. Worsening lung compliance d/t hypervolemia (pulm edema) and/ or PGD. Continues on iFlolan. Switched to VA ECMO but maintaining very low Vt plus high PEEP. 06/03 Washout with VA ECMO weaned. VV ECMO initiated. S/p ECMO decannulation 06/15. S/p trach 06/19. Tolerated ~>11hrs on 07/06, but CXR with increased atelectasis following. A/P: CXR with bilateral opacities. Tolerating TC ATC. Continue TC, BPH, pain control, OOB. Consumption coagulopathy 05/29/2015 Overview: S/P Lung Transplant. Severe coagulopathic bleeding intraop and immediately postop. Received multiple blood products - plts, cryoppt, FFP and prbcs. Also rewarming for postop hypothermia. A/P: 4u pRBC and 2u platelets distribution coordinator to OR. PF4 antibody negative Chest remains open. Hypotension 05/29/2015 06/15/2015 Overview: Post Lung Tx. Severely vasoplegic intraop and immediately postop requiring multiple inopressors. Received methylene blue bolus intraop. Arrived ICU on epi, norepi, vasopressin and phenylephrine was added in ICU to maintain MAP >60mmHg. Wean for MAP 65 or greater. A/P: Off epi. Maintain MAPs 65-75. Acute blood loss anemia 05/29/201508/12 Overview: H/H remains low but stable. 07/10: H/H 6.6--transfused 1 unit 07/11: Transfused for 6.8.3 A/P: Monitor H/H, transfuse prn. Acute postoperative pain 05/29/2015 Overview: Post op lung Tx A/P: Dilaudid and acetaminophen prn for pain Hypothermia following anesthesia 05/29/2015 06/02/2015 Overview: 05/30/2015 Rewarming with forced warm air blanket Lactic acidosis 05/29/2015 06/03/2015 Overview: S/P Lung Tx A/P: Resolved with lactate levels of 1.2 today Right heart failure, NYHA class 4 04/27/2015 08/21/2015 Right heart failure due to p ulmonary hypertension 04/21/2015 06/02/2015 Overview: Patient with right heart failure stigmata (JVD, ascites and lower extremity edema). BP has been on the lower side. Oxygen requirement increased to 3L from 2 L Plan: - Will get repeat Echo with bubble study (last one from January 2015). - Place a PA cath and continue to diurese while monitoring her right heart pressures. - Will need IV lasix-received 80 IV lasix on 04/20 and 100 IV lasix on 04/21 - Continue spironolactone. JAMES (acute kidney injury) 04/21/2015 Overview: Baseline Cr 0.9 (04/09) -> Cr up to 2.4. A/P: JAMES is likely 2/2 ATN given hypotension and hemorrhage. Balance volume repletion with diuresis --> Cr continues to downtrend 1.92 -->1.37 today. Nephrology following - Maintain MAP 65 or greater, avoid nephrotoxic agents. Continue Lasix drip Hyponatremia with excess ext racellular fluid volume 04/21/2015 06/02/2015 Overview: Likely hypervolemic hyponatremia. Na improved form 126 to 130 this am. Patient is already on torsemide, spironolactone and metolazone at home. Plan: - Continue to diurese as kidney function allows. Palpitations 12/24/2014 08/21/2015 Hypoxemia 07/28/2014 08/21/2015 Vocal cord paralysis 03/31/2014 015 CTEPH (chronic thromboemboli c pulmonary hypertension) 04/29/2013 06/02/2015 Overview: - Will continue home meds including Bosentan, Tadalafil and Treprostinil. - O2 requirements as needed (uses 2L NC at home at night). - Continue home O2 - Patient was seen by lung transplant team. Tests required include: Quantitative perfusion scan (done) Gastric emptying study, esophageal manometry and 24hr pH study (ordered) Dental consultation (will need to call ) Social Work (on board) Iron deficiency anemia 01/25/201304/11 Overview: Menstruating female with iron deficiency Cardiomegaly 01/25/2013 09/02/2015 Overview: -- RV enlargement due to PH Exertional dyspnea 01/25/2013 5 Mediastinal adenopathy 01/25/201308/21 Hilar adenopathy 01/25/2013 08/21/2015 Overview: Noted on imaging- mother with a history of Sarcoid Could be 2/2 to chronic VTE and pHTN Lung nodules 01/25/2013 09/02/2015 Overview: Noted on imaging Follow Anticoagulation management encounter 01/25/2013 01/26/2013 SUMMARY 01/24/2013 02/02/2013 Overview: This is a 17 year old female with no significant PMH other than migraine and minimal allergies who developed significant SOB within the past 2 months, this progressed to the point where she was unable to walk up 2 flights of stairs and had mild chest pressure with activty. This worsened on a recent trip to [place] where she was on a 6 hour plane ride leading to a near syncopal episode. She presented ot her PCP for fatigue and was found to have anemia, elevated WBC count and on echo a elevated RVSP and dilated RV. She was sent for CT at her local Ed where she was found to have 2 small PE's. Patient sent for further evaluation. At admission upon review of her Ct there is no PE noted, she does however have significant cardiomegaly, increase RVSP and right atrial dilatation, will need to work up cause of PAH PAH (pulmonary artery hypertension) 01/24/2013 08/21/2015 Overview: Found to have elevated RVSP on echo with RV dilatation. ? Sarcoid as she has a family hx as well as polyarthralgia and fatigue - now with hilar lymphadenopathy RHC revealing PA HTN. 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 as angio was suggestive of multiple PEs small and chronic Plan: Further Remodulin titration as an out-patient q weekly, now on 7.5 ng/kg/min PET scan for VALERIA in the chest complete 02/07 Night sweats 01/24/2013 08/21/2015 Overview: Unclear etiology- Awaiting further PAH workup and Rheum w/u is neg so far documented as of this encounter (statuses as of 12/13/2023) [facility]04-[facility]2016 History of Past illness Narrative* Problem Noted Date Diagnosed Date Resolved Date Abnormality of gait 12/24/2015 04/11/20 17 Ascites 07/13/2015 08/21/2015 Overview: Abdominal distension 07/09 KUB: air in stomach, repeat on 07/11: no dilated loops of bowel 07/11: US abdomen + ascites 07/13 Paracentesis ~ 2L straw colored fluid A/P: Abdomen soft, distended. No c/o abd. fullness. Monitor. Seizure 06/22/2015 08/21/2015 Overview: 06/22/2015 0230 Sudden new onset seizures - with generalized rhythmic contractions of all extremities plus facial twitching. Treated lorazepam and midazolam. Stat head CT negative for bleed. No acute metabolic changes on ABG. Concern for withdrawal from opioids - had been on high dose fentanyl infusion for 3 weeks -infusion d'tabitha on 06/18/15. Neuro consulted and continuous EEG monitoring ordered. Cont vEEG showing mild diffuse encephalopathy but no epileptiform form activity. A/P:: No seizure activity since 06/22. Keppra discontinued per ALD. Abdominal distension 06/15/2015 015 Overview: TF held. KUB pending. Fever 06/08/2015 08/21/2015 Overview: S/p CT chest/abd 06/18, which showed RLL collapse, with findings suggestive of necrotic PNA, and scattered upper lobe opacities; moderate ascites, cholelithiasis and gallbladder sludging without cholecystitis. Remains afebrile. No leukocytosis. - Urine cx (06/07), neg; Bld cx (06/11) x2 - NGTD - One blood culture (06/06) grew lactobacillus - Bld/UA cx drawn (06/16) - neg - BAL cx (06/20): smear shows GPC in clusters - Bld cx (06/21) NGTD Plan: - Meropenem stopped on 06/22 - Cont PO Vancomycin through hospitalization - F/u BAL cx (06/20) - Smear currently shows GPC in clusters but no organisms on culture; in the setting of resurgence of fevers, restarted on IV Vanc on 06/18->. Continue Vancomycin oral Mild protein-calorie malnutrition 06/04/2015 04/11/2017 Overview: Nutrition following. Ice chips only per beside swallow evaluation. Advanced to popcicle and applesauce 07/19 A/P: Tolerating TF via corpak at goal. Continue TF at current rate, monitor labs. Speech evaluation today Ischemia of hand 06/01/2015 06/05/2015 Overview: Radial a line removed- good doppler signals Dexter ndiaye placed Heparin infusion for goal pTT 45-55. Ischemia of lower extremity 06/01/2015 06/08/2015 Overview: Left lower extremity ischemia, has regained DP/PT doppler signals, but calf muscles remains somewhat tense. A/P: CKs normalizing, will stop following CK levels at this time. Vascular surgery signing off, appreciate assistance. 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 Radial art line was in LUE. Art line removed and arterial duplex showed radial artery thrombosis with patent ulnar artery. Pt now with strong pulse in L radial artery. Thrombocytopenia 06/01/2015 06/08/2015 Overview: Required massive transfusion after OR, placed on VA ECMO. Likely consumptive coagulopathy, however PF4 antibody sent given recent initiation of heparin IV. A/P: -Appears to be resolving, platelets 98,000 today. Cardiac insufficiency follow ing cardiac surgery 05/30/2015 06/15/2015 Overview: Severe RV, arrived from OR on iflolan and Epi. iFlolan weaned off A/P: Off epi and iFlolan. Open chest wound 05/30/2015 06/11/2015 Overview: S/p Lung Tx A/P: Dressing intact, continue ATBX while chest is open. Possible closure today Volume overload 05/30/2015 09/02/2015 Overview: + fluid balance due to multiple transfusions and volume replacement for shock in the early post op period. A/P: - 1.9 L/24hr. Continue diuresis, monitor UOP and labs. Personal history of ECMO 05/30/201502/2015 Overview: VV ECMO on 05/30, Transitioned to VA ECMO 05/31. VA ECMO weaned 06/03, back on VV ECMO Decannulated on 06/15. Stress hyperglycemia 05/30/2015 10/01/2 015 Overview: S/P Lung Tx A/P: Stress hyperglycemia exacerbated by surgery and pressors. RHI infusion for glycemic control. Shock liver - hepatic insufficiency 05/30/2015 06/05/2015 Overview: Markedly elevated LFTs, persistent coagulopathy and bleeding despite near- continuous trasnfusion of blood products. Also recurrent hypoglycemia requiring D50 boluses and D10W infusion. A/P: LFTs downtrending. 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 Progressively hypoxemic after arrival to ICU despite maximal MV support with lung protective ventilation and inhaled epoprostenol. NMB, inverted I:E ratio, high PEEP, low Vt with permissive hypercapnia only helped transiently. VV ECMO placed. Optimize vent settings, BPH, pain control, VV ECMO. Worsening lung compliance d/t hypervolemia (pulm edema) and/ or PGD. Continues on iFlolan. Switched to VA ECMO but maintaining very low Vt plus high PEEP. 06/03 Washout with VA ECMO weaned. VV ECMO initiated. S/p ECMO decannulation 06/15. S/p trach 06/19. Tolerated ~>11hrs on 07/06, but CXR with increased atelectasis following. A/P: CXR with bilateral opacities. Tolerating TC ATC. Continue TC, BPH, pain control, OOB. Consumption coagulopathy 05/29/2015 Overview: S/P Lung Transplant. Severe coagulopathic bleeding intraop and immediately postop. Received multiple blood products - plts, cryoppt, FFP and prbcs. Also rewarming for postop hypothermia. A/P: 4u pRBC and 2u platelets distribution coordinator to OR. PF4 antibody negative Chest remains open. Hypotension 05/29/2015 06/15/2015 Overview: Post Lung Tx. Severely vasoplegic intraop and immediately postop requiring multiple inopressors. Received methylene blue bolus intraop. Arrived ICU on epi, norepi, vasopressin and phenylephrine was added in ICU to maintain MAP >60mmHg. Wean for MAP 65 or greater. A/P: Off epi. Maintain MAPs 65-75. Acute blood loss anemia 05/29/201508/12 Overview: H/H remains low but stable. 07/10: H/H 6.6--transfused 1 unit 07/11: Transfused for 6.8.3 A/P: Monitor H/H, transfuse prn. Acute postoperative pain 05/29/2015 Overview: Post op lung Tx A/P: Dilaudid and acetaminophen prn for pain Hypothermia following anesthesia 05/29/2015 06/02/2015 Overview: 05/30/2015 Rewarming with forced warm air blanket Lactic acidosis 05/29/2015 06/03/2015 Overview: S/P Lung Tx A/P: Resolved with lactate levels of 1.2 today Right heart failure, NYHA class 4 04/27/2015 08/21/2015 Right heart failure due to p ulmonary hypertension 04/21/2015 06/02/2015 Overview: Patient with right heart failure stigmata (JVD, ascites and lower extremity edema). BP has been on the lower side. Oxygen requirement increased to 3L from 2 L Plan: - Will get repeat Echo with bubble study (last one from January 2015). - Place a PA cath and continue to diurese while monitoring her right heart pressures. - Will need IV lasix-received 80 IV lasix on 04/20 and 100 IV lasix on 04/21 - Continue spironolactone. JAMES (acute kidney injury) 04/21/2015 Overview: Baseline Cr 0.9 (04/09) -> Cr up to 2.4. A/P: JAMES is likely 2/2 ATN given hypotension and hemorrhage. Balance volume repletion with diuresis --> Cr continues to downtrend 1.92 -->1.37 today. Nephrology following - Maintain MAP 65 or greater, avoid nephrotoxic agents. Continue Lasix drip Hyponatremia with excess ext racellular fluid volume 04/21/2015 06/02/2015 Overview: Likely hypervolemic hyponatremia. Na improved form 126 to 130 this am. Patient is already on torsemide, spironolactone and metolazone at home. Plan: - Continue to diurese as kidney function allows. Palpitations 12/24/2014 08/21/2015 Hypoxemia 07/28/2014 08/21/2015 Vocal cord paralysis 03/31/2014 015 CTEPH (chronic thromboemboli c pulmonary hypertension) 04/29/2013 06/02/2015 Overview: - Will continue home meds including Bosentan, Tadalafil and Treprostinil. - O2 requirements as needed (uses 2L NC at home at night). - Continue home O2 - Patient was seen by lung transplant team. Tests required include: Quantitative perfusion scan (done) Gastric emptying study, esophageal manometry and 24hr pH study (ordered) Dental consultation (will need to call ) Social Work (on board) Iron deficiency anemia 01/25/201304/11 Overview: Menstruating female with iron deficiency Cardiomegaly 01/25/2013 09/02/2015 Overview: -- RV enlargement due to PH Exertional dyspnea 01/25/2013 5 Mediastinal adenopathy 01/25/201308/21 Hilar adenopathy 01/25/2013 08/21/2015 Overview: Noted on imaging- mother with a history of Sarcoid Could be 2/2 to chronic VTE and pHTN Lung nodules 01/25/2013 09/02/2015 Overview: Noted on imaging Follow Anticoagulation management encounter 01/25/2013 01/26/2013 SUMMARY 01/24/2013 02/02/2013 Overview: This is a 17 year old female with no significant PMH other than migraine and minimal allergies who developed significant SOB within the past 2 months, this progressed to the point where she was unable to walk up 2 flights of stairs and had mild chest pressure with activty. This worsened on a recent trip to [place] where she was on a 6 hour plane ride leading to a near syncopal episode. She presented ot her PCP for fatigue and was found to have anemia, elevated WBC count and on echo a elevated RVSP and dilated RV. She was sent for CT at her local Ed where she was found to have 2 small PE's. Patient sent for further evaluation. At admission upon review of her Ct there is no PE noted, she does however have significant cardiomegaly, increase RVSP and right atrial dilatation, will need to work up cause of PAH PAH (pulmonary artery hypertension) 01/24/2013 08/21/2015 Overview: Found to have elevated RVSP on echo with RV dilatation. ? Sarcoid as she has a family hx as well as polyarthralgia and fatigue - now with hilar lymphadenopathy RHC revealing PA HTN. 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 as angio was suggestive of multiple PEs small and chronic Plan: Further Remodulin titration as an out-patient q weekly, now on 7.5 ng/kg/min PET scan for VALERIA in the chest complete 02/07 Night sweats 01/24/2013 08/21/2015 Overview: Unclear etiology- Awaiting further PAH workup and Rheum w/u is neg so far documented as of this encounter (statuses as of 12/14/2023) [facility] History of Past illness Narrative* Problem Noted Date Diagnosed Date Resolved Date Abnormality of gait 12/24/2015 04/11/20 17 Ascites 07/13/2015 08/21/2015 Overview: Abdominal distension 07/09 KUB: air in stomach, repeat on 07/11: no dilated loops of bowel 07/11: US abdomen + ascites 07/13 Paracentesis ~ 2L straw colored fluid A/P: Abdomen soft, distended. No c/o abd. fullness. Monitor. Seizure 06/22/2015 08/21/2015 Overview: 06/22/2015 0230 Sudden new onset seizures - with generalized rhythmic contractions of all extremities plus facial twitching. Treated lorazepam and midazolam. Stat head CT negative for bleed. No acute metabolic changes on ABG. Concern for withdrawal from opioids - had been on high dose fentanyl infusion for 3 weeks -infusion d'tabitha on 06/18/15. Neuro consulted and continuous EEG monitoring ordered. Cont vEEG showing mild diffuse encephalopathy but no epileptiform form activity. A/P:: No seizure activity since 06/22. Keppra discontinued per ALD. Abdominal distension 06/15/2015 015 Overview: TF held. KUB pending. Fever 06/08/2015 08/21/2015 Overview: S/p CT chest/abd 06/18, which showed RLL collapse, with findings suggestive of necrotic PNA, and scattered upper lobe opacities; moderate ascites, cholelithiasis and gallbladder sludging without cholecystitis. Remains afebrile. No leukocytosis. - Urine cx (06/07), neg; Bld cx (06/11) x2 - NGTD - One blood culture (06/06) grew lactobacillus - Bld/UA cx drawn (06/16) - neg - BAL cx (06/20): smear shows GPC in clusters - Bld cx (06/21) NGTD Plan: - Meropenem stopped on 06/22 - Cont PO Vancomycin through hospitalization - F/u BAL cx (06/20) - Smear currently shows GPC in clusters but no organisms on culture; in the setting of resurgence of fevers, restarted on IV Vanc on 06/18->. Continue Vancomycin oral Mild protein-calorie malnutrition 06/04/2015 04/11/2017 Overview: Nutrition following. Ice chips only per beside swallow evaluation. Advanced to popcicle and applesauce 07/19 A/P: Tolerating TF via corpak at goal. Continue TF at current rate, monitor labs. Speech evaluation today Ischemia of hand 06/01/2015 06/05/2015 Overview: Radial a line removed- good doppler signals Rooke mittens placed Heparin infusion for goal pTT 45-55. Ischemia of lower extremity 06/01/2015 06/08/2015 Overview: Left lower extremity ischemia, has regained DP/PT doppler signals, but calf muscles remains somewhat tense. A/P: CKs normalizing, will stop following CK levels at this time. Vascular surgery signing off, appreciate assistance. 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 Radial art line was in LUE. Art line removed and arterial duplex showed radial artery thrombosis with patent ulnar artery. Pt now with strong pulse in L radial artery. Thrombocytopenia 06/01/2015 06/08/2015 Overview: Required massive transfusion after OR, placed on [facility] ECMO. Likely consumptive coagulopathy, however PF4 antibody sent given recent initiation of heparin IV. A/P: -Appears to be resolving, platelets 98,000 today. Cardiac insufficiency follow ing cardiac surgery 05/30/2015 06/15/2015 Overview: Severe RV, arrived from OR on iflolan and Epi. iFlolan weaned off A/P: Off epi and iFlolan. Open chest wound 05/30/2015 06/11/2015 Overview: S/p Lung Tx A/P: Dressing intact, continue ATBX while chest is open. Possible closure today Volume overload 05/30/2015 09/02/2015 Overview: + fluid balance due to multiple transfusions and volume replacement for shock in the early post op period. A/P: - 1.9 L/24hr. Continue diuresis, monitor UOP and labs. Personal history of ECMO 05/30/201502/2015 Overview: VV ECMO on 05/30, Transitioned to VA ECMO 05/31. VA ECMO weaned 06/03, back on VV ECMO Decannulated on 06/15. Stress hyperglycemia 05/30/2015 015 Overview: S/P Lung Tx A/P: Stress hyperglycemia exacerbated by surgery and pressors. RHI infusion for glycemic control. Shock liver - hepatic insufficiency 05/30/2015 06/05/2015 Overview: Markedly elevated LFTs, persistent coagulopathy and bleeding despite near- continuous trasnfusion of blood products. Also recurrent hypoglycemia requiring D50 boluses and D10W infusion. A/P: LFTs downtrending. 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 Progressively hypoxemic after arrival to ICU despite maximal MV support with lung protective ventilation and inhaled epoprostenol. NMB, inverted I:E ratio, high PEEP, low Vt with permissive hypercapnia only helped transiently. VV ECMO placed. Optimize vent settings, BPH, pain control, VV ECMO. Worsening lung compliance d/t hypervolemia (pulm edema) and/ or PGD. Continues on iFlolan. Switched to VA ECMO but maintaining very low Vt plus high PEEP. 06/03 Washout with VA ECMO weaned. VV ECMO initiated. S/p ECMO decannulation 06/15. S/p trach 06/19. Tolerated ~>11hrs on 07/06, but CXR with increased atelectasis following. A/P: CXR with bilateral opacities. Tolerating TC ATC. Continue TC, BPH, pain control, OOB. Consumption coagulopathy 05/29/2015 Overview: S/P Lung Transplant. Severe coagulopathic bleeding intraop and immediately postop. Received multiple blood products - plts, cryoppt, FFP and prbcs. Also rewarming for postop hypothermia. A/P: 4u pRBC and 2u platelets distribution coordinator to OR. PF4 antibody negative Chest remains open. Hypotension 05/29/2015 06/15/2015 Overview: Post Lung Tx. Severely vasoplegic intraop and immediately postop requiring multiple inopressors. Received methylene blue bolus intraop. Arrived ICU on epi, norepi, vasopressin and phenylephrine was added in ICU to maintain MAP >60mmHg. Wean for MAP 65 or greater. A/P: Off epi. Maintain MAPs 65-75. Acute blood loss anemia 05/29/201508/12 Overview: H/H remains low but stable. 07/10: H/H 6.6/--transfused 1 unit 07/11: Transfused for 6.8.3 A/P: Monitor H/H, transfuse prn. Acute postoperative pain 05/29/2015 Overview: Post op lung Tx A/P: Dilaudid and acetaminophen prn for pain Hypothermia following anesthesia 05/29/2015 06/02/2015 Overview: 05/30/2015 Rewarming with forced warm air blanket Lactic acidosis 05/29/2015 06/03/2015 Overview: S/P Lung Tx A/P: Resolved with lactate levels of 1.2 today Right heart failure, NYHA class 4 04/27/2015 08/21/2015 Right heart failure due to p ulmonary hypertension 04/21/2015 06/02/2015 Overview: Patient with right heart failure stigmata (JVD, ascites and lower extremity edema). BP has been on the lower side. Oxygen requirement increased to 3L from 2 L Plan: - Will get repeat Echo with bubble study (last one from January 2015). - Place a PA cath and continue to diurese while monitoring her right heart pressures. - Will need IV lasix-received 80 IV lasix on 04/20 and 100 IV lasix on 04/21 - Continue spironolactone. JAMES (acute kidney injury) 04/21/2015 Overview: Baseline Cr 0.9 (04/09) -> Cr up to 2.4. A/P: JAMES is likely 2/2 ATN given hypotension and hemorrhage. Balance volume repletion with diuresis --> Cr continues to downtrend 1.92 -->1.37 today. Nephrology following - Maintain MAP 65 or greater, avoid nephrotoxic agents. Continue Lasix drip Hyponatremia with excess ext racellular fluid volume 04/21/2015 06/02/2015 Overview: Likely hypervolemic hyponatremia. Na improved form 126 to 130 this am. Patient is already on torsemide, spironolactone and metolazone at home. Plan: - Continue to diurese as kidney function allows. Palpitations 12/24/2014 08/21/2015 Hypoxemia 07/28/2014 08/21/2015 Vocal cord paralysis 03/31/2014 015 CTEPH (chronic thromboemboli c pulmonary hypertension) 04/29/2013 06/02/2015 Overview: - Will continue home meds including Bosentan, Tadalafil and Treprostinil. - O2 requirements as needed (uses 2L NC at home at night). - Continue home O2 - Patient was seen by lung transplant team. Tests required include: Quantitative perfusion scan (done) Gastric emptying study, esophageal manometry and 24hr pH study (ordered) Dental consultation (will need to call ) Social Work (on board) Iron deficiency anemia 01/25/201304/11 Overview: Menstruating female with iron deficiency Cardiomegaly 01/25/2013 09/02/2015 Overview: -- RV enlargement due to PH Exertional dyspnea 01/25/2013 5 Mediastinal adenopathy 01/25/201308/21 Hilar adenopathy 01/25/2013 08/21/2015 Overview: Noted on imaging- mother with a history of Sarcoid Could be 2/2 to chronic VTE and pHTN Lung nodules 01/25/2013 09/02/2015 Overview: Noted on imaging Follow Anticoagulation management encounter 01/25/2013 01/26/2013 SUMMARY 01/24/2013 02/02/2013 Overview: This is a 17 year old female with no significant PMH other than migraine and minimal allergies who developed significant SOB within the past 2 months, this progressed to the point where she was unable to walk up 2 flights of stairs and had mild chest pressure with activty. This worsened on a recent trip to [place] where she was on a 6 hour plane ride leading to a near syncopal episode. She presented ot her PCP for fatigue and was found to have anemia, elevated WBC count and on echo a elevated RVSP and dilated RV. She was sent for CT at her local Ed where she was found to have 2 small PE's. Patient sent for further evaluation. At admission upon review of her Ct there is no PE noted, she does however have significant cardiomegaly, increase RVSP and right atrial dilatation, will need to work up cause of PAH PAH (pulmonary artery hypertension) 01/24/2013 08/21/2015 Overview: Found to have elevated RVSP on echo with RV dilatation. ? Sarcoid as she has a family hx as well as polyarthralgia and fatigue - now with hilar lymphadenopathy RHC revealing PA HTN. 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 as angio was suggestive of multiple PEs small and chronic Plan: Further Remodulin titration as an out-patient q weekly, now on 7.5 ng/kg/min PET scan for VALERIA in the chest complete 02/07 Night sweats 01/24/2013 08/21/2015 Overview: Unclear etiology- Awaiting further PAH workup and Rheum w/u is neg so far documented as of this encounter (statuses as of 12/27/2023) [facility] History of Past illness Narrative* Problem Noted Date Diagnosed Date Resolved Date Abnormality of gait 12/24/2015 04/11/20 17 Ascites 07/13/2015 08/21/2015 Overview: Abdominal distension 07/09 KUB: air in stomach, repeat on 07/11: no dilated loops of bowel 07/11: US abdomen + ascites 07/13 Paracentesis ~ 2L straw colored fluid A/P: Abdomen soft, distended. No c/o abd. fullness. Monitor. Seizure 06/22/2015 08/21/2015 Overview: 06/22/2015 0230 Sudden new onset seizures - with generalized rhythmic contractions of all extremities plus facial twitching. Treated lorazepam and midazolam. Stat head CT negative for bleed. No acute metabolic changes on ABG. Concern for withdrawal from opioids - had been on high dose fentanyl infusion for 3 weeks -infusion d'tabitha on 06/18/15. Neuro consulted and continuous EEG monitoring ordered. Cont vEEG showing mild diffuse encephalopathy but no epileptiform form activity. A/P:: No seizure activity since 06/22. Keppra discontinued per ALD. Abdominal distension 06/15/2015 015 Overview: TF held. KUB pending. Fever 06/08/2015 08/21/2015 Overview: S/p CT chest/abd 06/18, which showed RLL collapse, with findings suggestive of necrotic PNA, and scattered upper lobe opacities; moderate ascites, cholelithiasis and gallbladder sludging without cholecystitis. Remains afebrile. No leukocytosis. - Urine cx (06/07), neg; Bld cx (06/11) x2 - NGTD - One blood culture (06/06) grew lactobacillus - Bld/UA cx drawn (06/16) - neg - BAL cx (06/20): smear shows GPC in clusters - Bld cx (06/21) NGTD Plan: - Meropenem stopped on 06/22 - Cont PO Vancomycin through hospitalization - F/u BAL cx (06/20) - Smear currently shows GPC in clusters but no organisms on culture; in the setting of resurgence of fevers, restarted on IV Vanc on 06/18->. Continue Vancomycin oral Mild protein-calorie malnutrition 06/04/2015 04/11/2017 Overview: Nutrition following. Ice chips only per beside swallow evaluation. Advanced to popcicle and applesauce 07/19 A/P: Tolerating TF via corpak at goal. Continue TF at current rate, monitor labs. Speech evaluation today Ischemia of hand 06/01/2015 06/05/2015 Overview: Radial a line removed- good doppler signals Dexter ndiaye placed Heparin infusion for goal pTT 45-55. Ischemia of lower extremity 06/01/2015 06/08/2015 Overview: Left lower extremity ischemia, has regained DP/PT doppler signals, but calf muscles remains somewhat tense. A/P: CKs normalizing, will stop following CK levels at this time. Vascular surgery signing off, appreciate assistance. 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 Radial art line was in LUE. Art line removed and arterial duplex showed radial artery thrombosis with patent ulnar artery. Pt now with strong pulse in L radial artery. Thrombocytopenia 06/01/2015 06/08/2015 Overview: Required massive transfusion after OR, placed on VA ECMO. Likely consumptive coagulopathy, however PF4 antibody sent given recent initiation of heparin IV. A/P: -Appears to be resolving, platelets 98,000 today. Cardiac insufficiency follow ing cardiac surgery 05/30/2015 06/15/2015 Overview: Severe RV, arrived from OR on iflolan and Epi. iFlolan weaned off A/P: Off epi and iFlolan. Open chest wound 05/30/2015 06/11/2015 Overview: S/p Lung Tx A/P: Dressing intact, continue ATBX while chest is open. Possible closure today Volume overload 05/30/2015 09/02/2015 Overview: + fluid balance due to multiple transfusions and volume replacement for shock in the early post op period. A/P: - 1.9 L/24hr. Continue diuresis, monitor UOP and labs. Personal history of ECMO 05/30/201502/2015 Overview: VV ECMO on 05/30, Transitioned to VA ECMO 05/31. VA ECMO weaned 06/03, back on VV ECMO Decannulated on 06/15. Stress hyperglycemia 05/30/2015 015 Overview: S/P Lung Tx A/P: Stress hyperglycemia exacerbated by surgery and pressors. RHI infusion for glycemic control. Shock liver - hepatic insufficiency 05/30/2015 06/05/2015 Overview: Markedly elevated LFTs, persistent coagulopathy and bleeding despite near- continuous trasnfusion of blood products. Also recurrent hypoglycemia requiring D50 boluses and D10W infusion. A/P: LFTs downtrending. 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 Progressively hypoxemic after arrival to ICU despite maximal MV support with lung protective ventilation and inhaled epoprostenol. NMB, inverted I:E ratio, high PEEP, low Vt with permissive hypercapnia only helped transiently. VV ECMO placed. Optimize vent settings, BPH, pain control, VV ECMO. Worsening lung compliance d/t hypervolemia (pulm edema) and/ or PGD. Continues on iFlolan. Switched to VA ECMO but maintaining very low Vt plus high PEEP. 06/03 Washout with VA ECMO weaned. VV ECMO initiated. S/p ECMO decannulation 06/15. S/p trach 06/19. Tolerated ~>11hrs on 07/06, but CXR with increased atelectasis following. A/P: CXR with bilateral opacities. Tolerating TC ATC. Continue TC, BPH, pain control, OOB. Consumption coagulopathy 05/29/2015 Overview: S/P Lung Transplant. Severe coagulopathic bleeding intraop and immediately postop. Received multiple blood products - plts, cryoppt, FFP and prbcs. Also rewarming for postop hypothermia. A/P: 4u pRBC and 2u platelets distribution coordinator to OR. PF4 antibody negative Chest remains open. Hypotension 05/29/2015 06/15/2015 Overview: Post Lung Tx. Severely vasoplegic intraop and immediately postop requiring multiple inopressors. Received methylene blue bolus intraop. Arrived ICU on epi, norepi, vasopressin and phenylephrine was added in ICU to maintain MAP >60mmHg. Wean for MAP 65 or greater. A/P: Off epi. Maintain MAPs 65-75. Acute blood loss anemia 05/29/201508/12 Overview: H/H remains low but stable. 07/10: H/H 6.6/21--transfused 1 unit 07/11: Transfused for 6.8/21.3 A/P: Monitor H/H, transfuse prn. Acute postoperative pain 05/29/2015 Overview: Post op lung Tx A/P: Dilaudid and acetaminophen prn for pain Hypothermia following anesthesia 05/29/2015 06/02/2015 Overview: 05/30/2015 Rewarming with forced warm air blanket Lactic acidosis 05/29/2015 06/03/2015 Overview: S/P Lung Tx A/P: Resolved with lactate levels of 1.2 today Right heart failure, NYHA class 4 04/27/2015 08/21/2015 Right heart failure due to p ulmonary hypertension 04/21/2015 06/02/2015 Overview: Patient with right heart failure stigmata (JVD, ascites and lower extremity edema). BP has been on the lower side. Oxygen requirement increased to 3L from 2 L Plan: - Will get repeat Echo with bubble study (last one from January 2015). - Place a PA cath and continue to diurese while monitoring her right heart pressures. - Will need IV lasix-received 80 IV lasix on 04/20 and 100 IV lasix on 04/21 - Continue spironolactone. JAMES (acute kidney injury) 04/21/2015 Overview: Baseline Cr 0.9 (04/09) -> Cr up to 2.4. A/P: JAMES is likely 2/2 ATN given hypotension and hemorrhage. Balance volume repletion with diuresis --> Cr continues to downtrend 1.92 -->1.37 today. Nephrology following - Maintain MAP 65 or greater, avoid nephrotoxic agents. Continue Lasix drip Hyponatremia with excess ext racellular fluid volume 04/21/2015 06/02/2015 Overview: Likely hypervolemic hyponatremia. Na improved form 126 to 130 this am. Patient is already on torsemide, spironolactone and metolazone at home. Plan: - Continue to diurese as kidney function allows. Palpitations 12/24/2014 08/21/2015 Hypoxemia 07/28/2014 08/21/2015 Vocal cord paralysis 03/31/2014 015 CTEPH (chronic thromboemboli c pulmonary hypertension) 04/29/2013 06/02/2015 Overview: - Will continue home meds including Bosentan, Tadalafil and Treprostinil. - O2 requirements as needed (uses 2L NC at home at night). - Continue home O2 - Patient was seen by lung transplant team. Tests required include: Quantitative perfusion scan (done) Gastric emptying study, esophageal manometry and 24hr pH study (ordered) Dental consultation (will need to call ) Social Work (on board) Iron deficiency anemia 01/25/201304/11 Overview: Menstruating female with iron deficiency Cardiomegaly 01/25/2013 09/02/2015 Overview: -- RV enlargement due to PH Exertional dyspnea 01/25/2013 5 Mediastinal adenopathy 01/25/201308/21 Hilar adenopathy 01/25/2013 08/21/2015 Overview: Noted on imaging- mother with a history of Sarcoid Could be 2/2 to chronic VTE and pHTN Lung nodules 01/25/2013 09/02/2015 Overview: Noted on imaging Follow Anticoagulation management encounter 01/25/2013 01/26/2013 SUMMARY 01/24/2013 02/02/2013 Overview: This is a 17 year old female with no significant PMH other than migraine and minimal allergies who developed significant SOB within the past 2 months, this progressed to the point where she was unable to walk up 2 flights of stairs and had mild chest pressure with activty. This worsened on a recent trip to [place] where she was on a 6 [address] ride leading to a near syncopal episode. She presented ot her PCP for fatigue and was found to have anemia, elevated WBC count and on echo a elevated RVSP and dilated RV. She was sent for CT at her local Ed where she was found to have 2 small PE's. Patient sent for further evaluation. At admission upon review of her Ct there is no PE noted, she does however have significant cardiomegaly, increase RVSP and right atrial dilatation, will need to work up cause of PAH PAH (pulmonary artery hypertension) 01/24/2013 08/21/2015 Overview: Found to have elevated RVSP on echo with RV dilatation. ? Sarcoid as she has a family hx as well as polyarthralgia and fatigue - now with hilar lymphadenopathy RHC revealing PA HTN. 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 as angio was suggestive of multiple PEs small and chronic Plan: Further Remodulin titration as an out-patient q weekly, now on 7.5 ng/kg/min PET scan for VALERIA in the chest complete 02/07 Night sweats 01/24/2013 08/21/2015 Overview: Unclear etiology- Awaiting further PAH workup and Rheum w/u is neg so far documented as of this encounter (statuses as of 12/29/2023) 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) [facility] 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 VTE (venous thromboembolism) Embolism and thrombosis of unspecified site custodial (current) use of anticoagulants Long-term (current) use of anticoagulants [facility] 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) [facility] 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) [facility] Diagnosis Need for vaccination- Primary Need for prophylactic vaccination and inoculation against unspecified single disease [facility] 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) Lung replaced by transplant Care after organ transplant Aftercare following organ transplant Lung transplant status, bilateral (HCC) Lung replaced by transplant 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 Class 1 obesity without serious comorbidity with body mass index (BMI) of 34.0 to 34.9 in adult, unspecified obesity type Encounter for monitoring tacrolimus therapy Encounter for therapeutic drug monitoring 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 ABHIJIT (obstructive sleep apnea) Obstructive sleep apnea (adult) (pediatric) Abnormal uterine and vaginal bleeding, unspecified 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) Lung replaced by transplant 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 for osteoporosis Special screening for osteoporosis custodial 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 Encounter for long-term (current) use of steroids [facility] Diagnosis Care after organ transplant Aftercare following organ transplant Lung transplant status, bilateral (HCC) Lung replaced by transplant 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 Class 1 obesity without serious comorbidity with body mass index (BMI) of 34.0 to 34.9 in adult, unspecified obesity type Encounter for monitoring tacrolimus therapy Encounter for therapeutic drug monitoring 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 ABHIJIT (obstructive sleep apnea) Obstructive sleep apnea (adult) (pediatric) Abnormal uterine and vaginal bleeding, unspecified 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) Lung replaced by transplant 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 for osteoporosis Special screening for osteoporosis buttermaker 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 Encounter for long-term (current) use of steroids [facility] Diagnosis 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) Lung replaced by transplant Care after organ transplant Aftercare following organ transplant Lung transplant status, bilateral (HCC) Lung replaced by transplant 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 Encounter for monitoring tacrolimus therapy Encounter for therapeutic drug monitoring buttermaker 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 Encounter for long-term (current) use of steroids Class 2 obesity without serious comorbidity with body mass index (BMI) of 38.0 to 38.9 in adult, unspecified obesity type documented in this encounter [facility] Diagnosis Tremor- Primary Abnormal involuntary movements Obesity, Class II, BMI 35-39.9 Obesity, unspecified History of COVID-19 documented in this encounter [facility]* Diagnosis 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) Lung replaced by transplant [facility] encounter [facility]* Diagnosis Class 3 severe obesity due to excess calories with serious comorbidity and body mass index (BMI) of 40.0 to 44.9 in adult ([facility] documented in this encounter [facility]* Diagnosis Essential tremor Essential and other specified forms of tremor documented in this encounter [facility]* Diagnosis CTEPH (chronic thromboembolic pulmonary hypertension) ([facility]) Other chronic pulmonary heart diseases VTE (venous thromboembolism) Embolism and thrombosis of unspecified site custodial (current) use of anticoagulants Long-term (current) use of anticoagulants documented in this encounter [facility]* Diagnosis Class 3 severe obesity due to excess calories with serious comorbidity and body mass index (BMI) of 40.0 to 44.9 in adult ([facility]) [facility] Diagnosis 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) Lung replaced by transplant [facility] this [facility] Diagnosis Lung replaced by transplant ([facility]) Lung replaced by transplant [facility] this [facility] Diagnosis Care after organ transplant- Primary Aftercare following organ transplant Lung transplant status, bilateral (HCC) Lung replaced by transplant 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 CTEPH (chronic thromboembolic pulmonary hypertension) ([facility]) Other chronic pulmonary heart diseases Encounter for monitoring tacrolimus therapy Encounter for therapeutic drug monitoring custodial 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 Encounter for long-term (current) use of steroids Class 2 obesity without serious comorbidity with body mass index (BMI) of 38.0 to 38.9 in adult, unspecified obesity type 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) Lung replaced by transplant [facility] Diagnosis Class 3 severe obesity due to excess calories with serious comorbidity and body mass index (BMI) of 40.0 to 44.9 in adult ([facility]) documented [facility] this encounter [facility] Diagnosis CTEPH (chronic thromboembolic pulmonary hypertension) ([facility]) Other chronic pulmonary heart diseases VTE (venous thromboembolism) Embolism and thrombosis of unspecified site custodial (current) use of anticoagulants Long-term (current) use of anticoagulants 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) Lung replaced by transplant [facility] this [facility] Diagnosis 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) Lung replaced by transplant [facility] Diagnosis 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) Lung replaced by transplant [facility] Diagnosis Class 3 severe obesity due to excess calories with serious comorbidity and body mass index (BMI) of 40.0 to 44.9 in adult ([facility]) [facility] Diagnosis CTEPH (chronic thromboembolic pulmonary hypertension) ([facility]) Other chronic pulmonary heart diseases VTE (venous thromboembolism) Embolism and thrombosis of unspecified site custodial (current) use of anticoagulants Long-term (current) use of anticoagulants [facility] Diagnosis Lung replaced by transplant ([facility])- Primary Lung replaced by transplant Follow-up examination after lung transplant ([facility]) Aftercare following organ transplant Gastroesophageal reflux disease, unspecified whether esophagitis present Encounter for monitoring tacrolimus therapy Encounter for therapeutic drug monitoring Encounter for aftercare following lung transplant ([facility]) Aftercare following organ transplant Essential hypertension Unspecified essential hypertension [facility] Diagnosis Lung replaced by transplant ([facility]) Lung replaced by transplant Follow-up examination after lung transplant ([facility]) Aftercare following organ transplant Gastroesophageal reflux disease, unspecified whether esophagitis present Encounter for monitoring tacrolimus therapy Encounter for therapeutic drug monitoring Encounter for aftercare following lung transplant ([facility]) Aftercare following organ transplant Essential hypertension Unspecified essential hypertension [facility] Diagnosis Lung [facility] by transplant ([facility]) Lung replaced by transplant Gastroesophageal reflux disease, unspecified whether esophagitis present [facility]* Diagnosis Essential tremor Essential and other specified forms of tremor [facility] Diagnosis Class 3 severe obesity due to excess calories with serious comorbidity and body mass index (BMI) of 40.0 to 44.9 in adult ([facility]) [facility] Diagnosis Class 3 severe obesity due to excess calories with serious comorbidity and body mass index (BMI) of 40.0 to 44.9 in adult ([facility]) [facility] Diagnosis Class 3 severe obesity due to excess calories with serious comorbidity and body mass index (BMI) of 40.0 to 44.9 in adult ([facility])- Primary Lung replaced by transplant ([facility]) [facility] Diagnosis 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 for osteoporosis- Primary Special screening for osteoporosis Lung transplant status, bilateral (HCC) Lung replaced by transplant buttermaker 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 Encounter for long-term (current) use of steroids Hypervitaminosis D [facility] Diagnosis Care after organ transplant- Primary Aftercare following organ transplant 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) Lung replaced by transplant Lung transplant status, bilateral (HCC) Lung replaced by transplant 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) Encounter for monitoring tacrolimus therapy Encounter for therapeutic drug monitoring Essential hypertension Unspecified essential hypertension documented in this encounter [facility] note* Diagnosis Recurrent major depressive disorder, in full remission (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) Lung replaced by transplant Class 3 severe obesity due to excess calories with body mass index (BMI) of 40.0 to 44.9 in adult, unspecified whether serious comorbidity present ([facility]) CTEPH (chronic thromboembolic pulmonary hypertension) ([facility]) Other chronic pulmonary heart diseases Immunosuppression (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 buttermaker (current) use of anticoagulants Long-term (current) use of anticoagulants documented in this encounter [facility]* Diagnosis Seasonal allergic rhinitis, unspecified trigger- Primary Pain and swelling of right lower leg Fall, subsequent encounter custodial (current) use of anticoagulants Long-term (current) use of anticoagulants [facility] this encounter [facility]* Diagnosis 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 Class 3 severe obesity without serious comorbidity with body mass index (BMI) of 40.0 to 44.9 in adult, unspecified obesity type (HCC) Encounter for monitoring tacrolimus therapy Encounter for therapeutic drug monitoring Essential hypertension Unspecified essential hypertension [facility] Diagnosis 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)- Primary Lung replaced by transplant Care after organ transplant Aftercare following organ transplant Lung transplant status, bilateral (HCC) Lung replaced by transplant 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 Class 3 severe obesity without serious comorbidity with body mass index (BMI) of 40.0 to 44.9 in adult, unspecified obesity type (HCC) Encounter for monitoring tacrolimus therapy Encounter for therapeutic drug monitoring Essential hypertension Unspecified essential hypertension Obesity, Class III, BMI >= 40 Morbid obesity 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 for osteoporosis Special screening for osteoporosis buttermaker 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 Encounter for long-term (current) use of steroids [facility]* Diagnosis Morbid obesity (HCC) [E66.01]- Primary Morbid obesity 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) [Z94.2] Lung replaced by transplant Sleep apnea, unspecified type [G47.30] [facility]* Diagnosis Bleeding nose- Primary Epistaxis [facility]* Diagnosis Essential tremor Essential and other specified forms of tremor [facility]* Diagnosis 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 VTE (venous thromboembolism) Embolism and thrombosis of unspecified site buttermaker (current) use of anticoagulants Long-term (current) use of anticoagulants [facility]* Diagnosis Essential tremor Essential and other specified forms of tremor [facility]* Diagnosis Essential tremor Essential and other specified forms of tremor [facility]* Diagnosis 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) Lung replaced by transplant [facility]* Diagnosis Idiopathic peripheral neuropathy Unspecified hereditary and idiopathic peripheral neuropathy Left foot drop Other acquired deformity of ankle and foot Right foot drop Other acquired deformity of ankle and foot [facility]* Diagnosis Pain and swelling of right lower leg [facility] in this encounter [facility] Diagnosis Knee injuries, left, initial encounter- Primary [facility]* Diagnosis Essential tremor Essential and other specified forms of tremor documented [facility] this encounter [facility]* Diagnosis Encounter for observation for other suspected diseases and conditions ruled out- Primary Acute pain of left knee Knee effusion, left Effusion of lower leg joint Left knee pain, unspecified chronicity documented in this encounter [facility]* Diagnosis Critical illness neuropathy (HCC)- Primary Critical illness polyneuropathy Idiopathic peripheral neuropathy Unspecified hereditary and idiopathic peripheral neuropathy Left foot drop Other acquired deformity of ankle and foot Right foot drop Other acquired deformity of ankle and foot Essential tremor Essential and other specified forms of tremor [facility]* Diagnosis Encounter for gynecological examination (general) (routine) without abnormal findings- Primary 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 for malignant neoplasm of cervix Screening for malignant neoplasm of the cervix Special screening examination for human papillomavirus (HPV) documented in this encounter [facility]* Diagnosis 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)- Primary Lung replaced by transplant Care after organ transplant Aftercare following organ transplant Lung transplant status, bilateral (HCC) Lung replaced by transplant 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 Class 3 severe obesity without serious comorbidity with body mass index (BMI) of 40.0 to 44.9 in adult, unspecified obesity type (HCC) Encounter for monitoring tacrolimus therapy Encounter for therapeutic drug monitoring Essential hypertension Unspecified essential hypertension documented in this encounter [facility] Diagnosis 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)- Primary Lung replaced by transplant Care after organ transplant Aftercare following organ transplant Lung transplant status, bilateral (HCC) Lung replaced by transplant 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 Class 3 severe obesity without serious comorbidity with body mass index (BMI) of 40.0 to 44.9 in adult, unspecified obesity type (HCC) Encounter for monitoring tacrolimus therapy Encounter for therapeutic drug monitoring Essential hypertension Unspecified essential hypertension Traumatic hematoma of left knee, subsequent encounter [facility]* Diagnosis 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) Lung replaced by transplant documented in this encounter [facility] Diagnosis 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) Lung replaced by transplant Care after organ transplant Aftercare following organ transplant Lung transplant status, bilateral (HCC) Lung replaced by transplant 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 Class 3 severe obesity without serious comorbidity with body mass index (BMI) of 40.0 to 44.9 in adult, unspecified obesity type (HCC) Encounter for monitoring tacrolimus therapy Encounter for therapeutic drug monitoring Essential hypertension Unspecified essential hypertension [facility]* Diagnosis Multiple benign nevi- Primary Benign neoplasm of skin, site unspecified Lentigines Other dyschromia Paz angioma Nevus, non-neoplastic Skin cancer screening Screening for malignant neoplasm of the skin [facility]* Diagnosis 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 VTE (venous thromboembolism) Embolism and thrombosis of unspecified site custodial (current) use of anticoagulants Long-term (current) use of anticoagulants [facility]* Diagnosis Chronic pain of left knee- Primary Pain in joint, lower leg [facility]* Diagnosis 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) Lung replaced by transplant [facility]* Diagnosis 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) Lung replaced by transplant [facility]* Diagnosis Recurrent major depressive disorder, in full remission (HCC)- Primary ABHIJIT (obstructive sleep apnea) AHI 9.6 Obstructive sleep apnea (adult) (pediatric) Foot drop, bilateral Other acquired deformity of ankle and foot Impaired mobility Other ill-defined conditions Obesity, Class III, BMI >= 40 Morbid obesity 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) Lung replaced by transplant [facility] Diagnosis 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) Lung replaced by transplant [facility]* Diagnosis VTE (venous thromboembolism)- Primary Embolism and thrombosis of unspecified site buttermaker (current) use of anticoagulants Long-term (current) use of anticoagulants [facility]* Diagnosis Encounter for aftercare following lung transplant (HCC)- Primary Aftercare following organ transplant [facility]* Diagnosis Care after organ transplant- Primary Aftercare following organ transplant 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) Lung replaced by transplant Lung transplant status, bilateral (HCC) Lung replaced by transplant 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 Class 3 severe obesity without serious comorbidity with body mass index (BMI) of 40.0 to 44.9 in adult, unspecified obesity type (HCC) Encounter for monitoring tacrolimus therapy Encounter for therapeutic drug monitoring Essential hypertension Unspecified essential hypertension [facility] Diagnosis 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) Lung replaced by transplant Care after organ transplant Aftercare following organ transplant Lung transplant status, bilateral (HCC) Lung replaced by transplant 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 Class 3 severe obesity without serious comorbidity with body mass index (BMI) of 40.0 to 44.9 in adult, unspecified obesity type (HCC) Encounter for monitoring tacrolimus therapy Encounter for therapeutic drug monitoring Essential hypertension Unspecified essential hypertension Traumatic hematoma of left knee, subsequent encounter [facility] this encounter [facility] Diagnosis Abrasion of left great toe, initial encounter- Primary Idiopathic peripheral neuropathy Unspecified hereditary and idiopathic peripheral neuropathy Left foot drop Other acquired deformity of ankle and foot Right foot drop Other acquired deformity of ankle and foot Abrasion of right great toe, initial encounter [facility] this [facility] Diagnosis Idiopathic peripheral neuropathy Unspecified hereditary and idiopathic peripheral neuropathy Left foot drop Other acquired deformity of ankle and foot Right foot drop Other acquired deformity of ankle and foot Abrasion of left great toe, subsequent encounter Abrasion of right great toe, subsequent encounter [facility]* Diagnosis Essential tremor Essential and other specified forms of tremor documented in this encounter [facility] Diagnosis Essential tremor- Primary Essential and other specified forms of tremor Class 3 severe obesity due to excess calories with body mass index (BMI) of 40.0 to 44.9 in adult, unspecified whether serious comorbidity present (HCC) documented in this encounter [facility]* Diagnosis Recurrent major depressive disorder, in full remission (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) Lung replaced by transplant [facility] Diagnosis Recurrent major depressive disorder, in full remission (HCC)- Primary Anxiety Anxiety state, unspecified ABHIJIT (obstructive sleep apnea) AHI 9.6 Obstructive sleep apnea (adult) (pediatric) 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) Lung replaced by transplant Class 3 severe obesity due to excess calories with body mass index (BMI) of 40.0 to 44.9 in adult, unspecified whether serious comorbidity present (HCC) 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 Immunosuppression (HCC) Unspecified disorder of immune mechanism Left knee pain, unspecified chronicity documented in this encounter [facility] Diagnosis Recurrent major depressive disorder, in full remission (HCC)- Primary Anxiety Anxiety state, unspecified ABHIJIT (obstructive sleep apnea) AHI 9.6 Obstructive sleep apnea (adult) (pediatric) 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) Lung replaced by transplant Class 3 severe obesity due to excess calories with body mass index (BMI) of 40.0 to 44.9 in adult, unspecified whether serious comorbidity present (HCC) 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 Immunosuppression (HCC) Unspecified disorder of immune mechanism Encounter for observation for other suspected diseases and conditions ruled out [facility] Diagnosis Recurrent major depressive disorder, in full remission (HCC)- Primary Anxiety Anxiety state, unspecified ABHIJIT (obstructive sleep apnea) AHI 9.6 Obstructive sleep apnea (adult) (pediatric) 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) Lung replaced by transplant Class 3 severe obesity due to excess calories with body mass index (BMI) of 40.0 to 44.9 in adult, unspecified whether serious comorbidity present (HCC) 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 Immunosuppression (HCC) Unspecified disorder of immune mechanism Acute pain of right knee Fall, initial encounter documented in this encounter [facility] Diagnosis Recurrent major depressive disorder, in full remission (HCC)- Primary Anxiety Anxiety state, unspecified ABHIJIT (obstructive sleep apnea) AHI 9.6 Obstructive sleep apnea (adult) (pediatric) 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) Lung replaced by transplant Class 3 severe obesity due to excess calories with body mass index (BMI) of 40.0 to 44.9 in adult, unspecified whether serious comorbidity present (HCC) 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 Immunosuppression (HCC) Unspecified disorder of immune mechanism 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) Lung replaced by transplant documented in this encounter [facility] note* Diagnosis Recurrent major depressive disorder, in full remission (HCC)- Primary Anxiety Anxiety state, unspecified ABHIJIT (obstructive sleep apnea) AHI 9.6 Obstructive sleep apnea (adult) (pediatric) 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)- Primary Lung replaced by transplant Care after organ transplant Aftercare following organ transplant Lung transplant status, bilateral (HCC) Lung replaced by transplant 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) Encounter for monitoring tacrolimus therapy Encounter for therapeutic drug monitoring Essential hypertension Unspecified essential hypertension documented in this encounter [facility] note* Diagnosis Recurrent major depressive disorder, in full remission (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) Encounter for monitoring tacrolimus therapy Encounter for therapeutic drug monitoring Essential hypertension Unspecified essential hypertension Bilateral foot-drop Other acquired deformity of ankle and foot Abnormal PFTs Nonspecific abnormal results of pulmonary system function study Class 3 severe obesity without serious comorbidity with body mass index (BMI) of 45.0 to 49.9 in adult, unspecified obesity type (HCC) Lung transplant failure (HCC) Complications of [facility] Diagnosis Recurrent major depressive disorder, in full remission (HCC)- Primary Anxiety Anxiety state, unspecified ABHIJIT (obstructive sleep apnea) AHI 9.6 Obstructive sleep apnea (adult) (pediatric) 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) Lung replaced by transplant Class 3 severe obesity due to excess calories with body mass index (BMI) of 40.0 to 44.9 in adult, unspecified whether serious comorbidity present (HCC) 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 Immunosuppression (HCC) Unspecified disorder of immune mechanism 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) Lung replaced by transplant Care after organ transplant Aftercare following organ transplant Lung transplant status, bilateral (HCC) Lung replaced by transplant 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 Class 3 severe obesity without serious comorbidity with body mass index (BMI) of 40.0 to 44.9 in adult, unspecified obesity type (HCC) Encounter for monitoring tacrolimus therapy Encounter for therapeutic drug monitoring Essential hypertension Unspecified essential hypertension documented in this encounter [facility] for referral (narrative)* Outpatient Procedure (Routine) - Pending Review Specialty Diagnoses / Procedures Referred By Liv flowers Referred To [facility] Diagnoses Care after organ transplant Lung transplant status, bilateral (HCC) 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) Encounter for monitoring tacrolimus therapy custodial 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 Class 2 obesity without serious comorbidity with body mass index (BMI) of 38.0 to 38.9 in adult, unspecified obesity type 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) Procedures SPIROMETRY BASELINE ONLY SPMTRY W/VC EXPIRATORY LORRAINE W/WO MXML VOL VNTJ Jeni Daly MD [address] [place] [address] [facility] [place] [address] [place] [id number] Referral ID Status Reason Start Date Expiration Date Visits Requested Visits Authorized [id number] Pending Review Auto-Generat ed Referral 2 03/19/2023 1 1 [facility] for referral (narrative)* Diagnostic Procedure Only (Routine) - Closed Specialty Diagnoses / Procedures Referred By Contac t Referred To Contact XR IMAGING Diagnoses 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) Gastroesophageal reflux disease, unspecified whether esophagitis present Procedures XR ESOPHAGRAM RADIOLOGIC EXAM ESOPHAGUS SINGLE CONTRAST STUDY Ioana Gracia DO [address] [place] [address] Xr Imaging Referral ID Status Reason Start Date Expiration Date V isits Requested Visits Authorized [id number] Closed Auto-Generate d Referral 06/28/2022 07/28/2023 1 1 [facility] for referral (narrative)* Outpatient Procedure (Routine) - Pending Review Specialty Diagnoses / Procedures Referred By Contac t Referred To Contact [facility] Diagnoses 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) Care after organ transplant Lung transplant status, bilateral (HCC) Bronchiolitis obliterans syndrome (HCC) Class 3 severe obesity without serious comorbidity with body mass index (BMI) of 40.0 to 44.9 in adult, unspecified obesity type (HCC) Encounter for monitoring tacrolimus therapy Essential hypertension Procedures SPIROMETRY BASELINE ONLY SPMTRY W/VC EXPIRATORY LORRAINE W/WO MXML VOL VNTJ Jeni Daly MD [address] [place] [address] [facility] [place] [address] [place] [address] Referral ID Status Reason Start Date Expiration Date Visits Requested Visits Authorized [id number] Pending Review Auto-Generat ed Referral 05/02/2023 02/02/2024 1 1 T [facility] for referral (narrative)* Diagnostic Procedure Only (Routine) - Pending Review Specialty Diagnoses / Procedures Referred By Contac t Referred To Contact XR IMAGING Diagnoses 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) Care after organ transplant Lung transplant status, bilateral (HCC) Bronchiolitis obliterans syndrome (HCC) Class 3 severe obesity without serious comorbidity with body mass index (BMI) of 40.0 to 44.9 in adult, unspecified obesity type (HCC) Encounter for monitoring tacrolimus therapy Essential hypertension Obesity, Class III, BMI 40-49.9 (morbid obesity) (HCC) 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 for osteoporosis custodial 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 Procedures DXA-AXIAL SKELETON WITH VFA DXA BONE DENSITY STUDY AXIAL SKELETON Jeni Daly MD [address] [place] [id number] [place] [address] Referral ID Status Reason Start Date Expiration Date Visits Requested Visits Authorized [id number] Pending Review Auto-Generat ed Referral 3 05/31/2024 1 1 * Consult, Test, Treat (Routine) - Authorized Specialty Diagnoses / Procedures Referred By Liv t Referred To Contact Dermatology Diagnoses 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) Care after organ transplant Lung transplant status, bilateral (HCC) Bronchiolitis obliterans syndrome (HCC) Class 3 severe obesity without serious comorbidity with body mass index (BMI) of 40.0 to 44.9 in adult, unspecified obesity type (HCC) Encounter for monitoring tacrolimus therapy Essential hypertension Obesity, Class III, BMI 40-49.9 (morbid obesity) (HCC) 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 for osteoporosis custodial 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 Procedures CONSULT TO DERMATOLOGY OFFICE/OUTPATIENT [facility] MDM 60-74 MINUTES Jeni Daly MD [address] [facility] [address] [place] [id number] Referral ID Status Reason Start Date Expiration Date Visits Requested Visits Authorized [id number] Authorized PCP Requested Referral 3 05/01/2024 1 1 * Outpatient Procedure (Routine) - Pending Review Specialty Diagnoses / Procedures Referred By Contac t Referred To Contact [facility] Diagnoses 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) 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 for osteoporosis buttermaker 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 Procedures SPIROMETRY BASELINE ONLY SPMTRY W/VC EXPIRATORY LORRAINE W/WO MXML VOL VNJeni Madsen MD [address] [place] [address] [facility] [place] [address] [place] [address] Referral ID Status Reason Start Date Expiration Date Visits Requested Visits Authorized [id number] Pending Review Auto-Generat ed Referral 3 05/31/2024 1 1 [facility] for referral (narrative)* Diagnostic Procedure Only (Urgent) - Closed Specialty Diagnoses / Procedures Referred By Liv flowers Referred To Contact XR IMAGING Diagnoses Knee injuries, left, initial encounter Procedures XR KNEE GENERAL 4V AP BOTH/PA BOTH/LAT/MERC LEFT RADIOLOGIC EXAM KNEE COMPLETE 4/MORE VIEWS Chari Loomis, MARBIN.LIFE SCIENCE RESEARCH ASSISTANT [address] [place] [address] Xr Imaging [place] [address] Referral ID Status Reason Start Date Expiration Date V isits Requested Visits Authorized [id number] Closed Auto-Generate d Referral 10/27/2023 11/25/2024 1 1 [facility] for referral (narrative)* Outpatient Procedure (Routine) - Authorized Specialty Diagnoses / Procedures Referred By Liv t Referred To Contact [facility] Diagnoses 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) Encounter for monitoring tacrolimus therapy Essential hypertension Traumatic hematoma of left knee, subsequent encounter Procedures SPIROMETRY BASELINE ONLY SPMTRY W/VC EXPIRATORY OLRRAINE W/WO MXML VOL VNTJ Jeni Daly MD [address] [place] [address] Respiratory [place] [id number] [place] [address] Referral ID Status Reason Start Date Expiration Date Visits Requested Visits Authorized [id number] Authorized Auto-Generat ed Referral 11/30/2023 12/29/2024 1 1 [facility] for referral (narrative)* Outpatient Procedure (Routine) - Pending Review Specialty Diagnoses / Procedures Referred By Liv t Referred To Contact [facility] Diagnoses 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) Care after organ transplant Lung transplant status, bilateral (HCC) Bronchiolitis obliterans syndrome (HCC) Class 3 severe obesity without serious comorbidity with body mass index (BMI) of 40.0 to 44.9 in adult, unspecified obesity type (HCC) Encounter for monitoring tacrolimus therapy Essential hypertension Procedures SPIROMETRY BASELINE ONLY SPMTRY W/VC EXPIRATORY LORRAINE W/WO MXML VOL VNTJ Jeni Daly MD [address] [place] [address] [address] Referral ID Status Reason Start Date Expiration Date Visits Requested Visits Authorized [id number] Pending Review Auto-Generat ed Referral 06/18/2024 04/05/2025 1 1 [facility] for referral (narrative)* Diagnostic Procedure Only (Urgent) - Closed Specialty Diagnoses / Procedures Referred By Liv flowers Referred To Contact XR IMAGING Diagnoses Acute pain of right knee Fall, initial encounter Procedures XR KNEE GENERAL 4V AP BOTH/PA BOTH/LAT/MERC RIGHT RADIOLOGIC EXAM KNEE COMPLETE 4/MORE VIEWS Sirena Dobbs, LIFE SCIENCE RESEARCH ASSISTANT [address] [place] [address] [place] [address] Referral ID Status Reason Start Date Expiration Date V isits Requested Visits Authorized [id number] Closed Auto-Generate d Referral 01/24/2023 02/23/2024 1 1 [facility] for visit Narrative* Diagnostic Procedure Only (Urgent) - Closed Specialty Diagnoses / Procedures Referred By Contac t Referred To Contact XR IMAGING Diagnoses Knee injuries, left, initial encounter Procedures XR KNEE INJURY 4V AP/LAT/OBLS LEFT RADIOLOGIC EXAM KNEE COMPLETE 4/MORE VIEWS Chari Loomis SIGNAL TOWER DIRECTOR.LIFE SCIENCE RESEARCH ASSISTANT [address] [place] [address] [place] [address] Referral ID Status Reason Start Date Expiration Date V isits Requested Visits Authorized [id number] Closed Auto-Generate d Referral 10/27/2023 11/25/2024 1 1 [facility] for visit Narrative* Diagnostic Procedure Only (Urgent) - Closed Specialty Diagnoses / Procedures Referred By Contac t Referred To Contact XR IMAGING Diagnoses Acute pain of right knee Fall, initial encounter Procedures XR KNEE GENERAL 4V AP BOTH/PA BOTH/LAT/MERC RIGHT RADIOLOGIC EXAM KNEE COMPLETE 4/MORE VIEWS Sirena Dobbs, SIGNAL TOWER DIRECTOR.LIFE SCIENCE RESEARCH ASSISTANT [address] [place] [address] [place] [address] Referral ID Status Reason Start Date Expiration Date V isits Requested Visits Authorized [id number] Closed Auto-Generate d Referral 01/24/2023 02/23/2024 1 1 [facility] Summary Purpose Family History No Family History Records FoundNo Family History Records FoundNo Family History Records FoundNo Family History Records Found Advance Directives Documents on File Type Date Recorded Patient Building Custodian Expl anation Advance Directive(s) 10/23/2018 10:00 AM Advance Directive(s) 10/15/2018 4:31 PM Dis charge WQ Advance Directive(s) 04/24/2015 9:48 PM Documents on File Type Date Recorded Patient Building Custodian Expl anation Advance Directive(s) 10/23/2018 10:00 AM Advance Directive(s) 10/15/2018 4:31 PM Dis charge WQ Advance Directive(s) 04/24/2015 9:48 PM Documents on File Type Date Recorded Patient Building Custodian Expl anation Advance Directive(s) 04/24/2015 9:48 PM Documents on File Type Date Recorded Patient Building Custodian Expl anation Advance Directive(s) 04/24/2015 9:48 PM Reason for Referral Specialty Diagnoses / Procedures Referred By Contac t Referred To Contact Neurology Diagnoses Idiopathic peripheral neuropathy Left foot drop Right foot drop Procedures CONSULT TO NEUROLOGY OFFICE/OUTPATIENT [facility] 60 MINUTES Maria C Pardo DPM [address] [place] [address] [facility] [address] [place] [address] Phone: [phone] Referral ID Status Reason Start Date Expiration Date Visits Requested Visits Authorized [id number] Authorized PCP Requested Referral 10/17/2023 10/16/2024 1 1 Specialty Diagnoses / Procedures Referred By Contac t Referred To Contact MR IMAGING Diagnoses Encounter for observation for other suspected diseases and conditions ruled out Procedures MRI LOWER LEG WO IVCON LEFT MRI LOWER EXTREM OTH/THN JT W/O CONTR Chandra Suarez MD [address] [place] [address] Mr Imaging [facility]95 Referral ID Status Reason Start Date Expiration Date Visits Requested Visits Authorized [id number] Additional Clinical Info Needed Auto-Generat ed Referral 11/07/2023 12/06/2024 1 1 Specialty Diagnoses / Procedures Referred By Contac t Referred To Contact MR IMAGING Diagnoses Left knee pain, unspecified chronicity Procedures MRI KNEE WO IVCON LEFT MRI ANY JT LOWER EXTREM W/O CONTRAST Chandra Suarez MD [address] [place] [address] Mr Imaging [facility] Referral ID Status Reason Start Date Expiration Date Visits Requested Visits Authorized [id number] Additional Clinical Info Needed Auto-Generat ed Referral 11/07/2023 12/06/2024 1 1 Specialty Diagnoses / Procedures Referred By Contac t Referred To Contact [facility] Diagnoses Critical illness neuropathy (HCC) Procedures CONSULT TO PHYSICAL THERAPY PHYSICAL THERAPY EVALUATION HIGH [facility] 45 MINS Liseth Ward DO [address] [place] [address] [facility] [place] [address] [place] [address] Referral ID Status Reason Start Date Expiration Date Visits Requested Visits Authorized [id number] Pending Review Auto-Generat ed Referral 11/09/2023 11/08/2024 1 1 Referral ID Status Reason Start Date Expiration Date V isits Requested Visits Authorized [id number] Closed Auto-Generate d Referral 11/07/2023 12/06/2024 1 1 Referral ID Status Reason Start Date Expiration Date V isits Requested Visits Authorized [id number] Closed Auto-Generate d Referral 11/09/2023 01/08/2024 1 1 Specialty Diagnoses / Procedures Referred By Liv flowers Referred To Contact CT IMAGING Diagnoses Care after organ transplant Lung transplant status, bilateral (HCC) Bronchiolitis obliterans syndrome (HCC) Encounter for monitoring tacrolimus therapy Essential hypertension Bilateral foot-drop Abnormal PFTs Class 3 severe obesity without serious comorbidity with body mass index (BMI) of 45.0 to 49.9 in adult, unspecified obesity type (HCC) Procedures CT CHEST WO IVCON DIAGNOSTIC COMPUTED TOMOGRAPHY THORAX W/O CNTRST Jeni Daly MD [address] [place] [id number] [facility] [place] [address] Referral ID Status Reason Start Date Expiration Date Visits Requested Visits Authorized [id number] New Request Auto-Generat ed Referral 07/25/2025 1 1 Specialty Diagnoses / Procedures Referred By Liv flowers Referred To [facility] Diagnoses Care after organ transplant Lung transplant status, bilateral (HCC) Bronchiolitis obliterans syndrome (HCC) Encounter for monitoring tacrolimus therapy Essential hypertension Bilateral foot-drop Abnormal PFTs Class 3 severe obesity without serious comorbidity with body mass index (BMI) of 45.0 to 49.9 in adult, unspecified obesity type (HCC) Procedures SPIROMETRY BASELINE ONLY SPMTRY W/VC EXPIRATORY LORRAINE W/WO MXML VOL VNTJ Jeni Daly MD [address] [place] [address] [facility] [place] [address] [place] [address] Referral ID Status Reason Start Date Expiration Date Visits Requested Visits Authorized [id number] New Request Auto-Generat ed Referral 07/25/2025 1 1 Additional Source Comments INFORMATION SOURCE (unrecogn ized section and content) DATE CREATED AUTHOR 08/04/2018 [facility] DATE CREATED AUTHOR AUTHOR'S ORGANIZ ATION 01/07/2021 [facility] ([place]) DATE CREATED AUTHOR AUTHOR'S ORGANIZ ATION 03/02/2024 [facility] DATE CREATED AUTHOR AUTHOR'S ORGANIZ ATION 07/01/2024 [facility] Source Comments (unrecognize d section and content) In the event this informatio n is protected by the Federal Confidentiality of Alcohol and Drug Abuse Patient Records regulations: The Federal rules restrict any use of the information to criminally investigate or prosecute any alcohol or drug abuse patient.[facility] the event this information is protected by the Federal Confidentiality of Alcohol and Drug Abuse Patient Records regulations: The Federal rules restrict any use of the information to criminally investigate or prosecute any alcohol or drug abuse patient.[facility] the event this information is protected by the Federal Confidentiality of Alcohol and Drug Abuse Patient Records regulations: The Federal rules restrict any use of the information to criminally investigate or prosecute any alcohol or drug abuse patient.[facility] the event this information is protected by the Federal Confidentiality of Alcohol and Drug Abuse Patient Records regulations: The Federal rules restrict any use of the information to criminally investigate or prosecute any alcohol or drug abuse patient.[facility] the event this information is protected by the Federal Confidentiality of Alcohol and Drug Abuse Patient Records regulations: The Federal rules restrict any use of the information to criminally investigate or prosecute any alcohol or drug abuse patient.[facility] the event this information is protected by the Federal Confidentiality of Alcohol and Drug Abuse Patient Records regulations: The Federal rules restrict any use of the information to criminally investigate or prosecute any alcohol or drug abuse patient.[facility] the event this information is protected by the Federal Confidentiality of Alcohol and Drug Abuse Patient Records regulations: The Federal rules restrict any use of the information to criminally investigate or prosecute any alcohol or drug abuse patient.[facility] the event this information is protected by the Federal Confidentiality of Alcohol and Drug Abuse Patient Records regulations: The Federal rules restrict any use of the information to criminally investigate or prosecute any alcohol or drug abuse patient.[facility] the event this information is protected by the Federal Confidentiality of Alcohol and Drug Abuse Patient Records regulations: The Federal rules restrict any use of the information to criminally investigate or prosecute any alcohol or drug abuse patient.[facility] the event this information is protected by the Federal Confidentiality of Alcohol and Drug Abuse Patient Records regulations: The Federal rules restrict any use of the information to criminally investigate or prosecute any alcohol or drug abuse patient.[facility] the event this information is protected by the Federal Confidentiality of Alcohol and Drug Abuse Patient Records regulations: The Federal rules restrict any use of the information to criminally investigate or prosecute any alcohol or drug abuse patient.[facility] Hospital[facility] the event this information is protected by the Federal Confidentiality of Alcohol and Drug Abuse Patient Records regulations: The Federal rules restrict any use of the information to criminally investigate or prosecute any alcohol or drug abuse patient.[facility] the event this information is protected by the Federal Confidentiality of Alcohol and Drug Abuse Patient Records regulations: The Federal rules restrict any use of the information to criminally investigate or prosecute any alcohol or drug abuse patient.[facility] Hospital[facility] the event this information is protected by the Federal Confidentiality of Alcohol and Drug Abuse Patient Records regulations: The Federal rules restrict any use of the information to criminally investigate or prosecute any alcohol or drug abuse patient.[facility] Hospital[facility] the event this information is protected by the Federal Confidentiality of Alcohol and Drug Abuse Patient Records regulations: The Federal rules restrict any use of the information to criminally investigate or prosecute any alcohol or drug abuse patient.[facility] Hospital[facility] the event this information is protected by the Federal Confidentiality of Alcohol and Drug Abuse Patient Records regulations: The Federal rules restrict any use of the information to criminally investigate or prosecute any alcohol or drug abuse patient.[facility] HospitalIn the event this information is protected by the Federal Confidentiality of Alcohol and Drug Abuse Patient Records regulations: The Federal rules restrict any use of the information to criminally investigate or prosecute any alcohol or drug abuse patient.[facility] HospitalIn the event this information is protected by the Federal Confidentiality of Alcohol and Drug Abuse Patient Records regulations: The Federal rules restrict any use of the information to criminally investigate or prosecute any alcohol or drug abuse patient.[facility] HospitalIn the event this information is protected by the Federal Confidentiality of Alcohol and Drug Abuse Patient Records regulations: The Federal rules restrict any use of the information to criminally investigate or prosecute any alcohol or drug abuse patient.[facility] HospitalIn the event this information is protected by the Federal Confidentiality of Alcohol and Drug Abuse Patient Records regulations: The Federal rules restrict any use of the information to criminally investigate or prosecute any alcohol or drug abuse patient.[facility] HospitalIn the event this information is protected by the Federal Confidentiality of Alcohol and Drug Abuse Patient Records regulations: The Federal rules restrict any use of the information to criminally investigate or prosecute any alcohol or drug abuse patient.[facility] HospitalIn the event this information is protected by the Federal Confidentiality of Alcohol and Drug Abuse Patient Records regulations: The Federal rules restrict any use of the information to criminally investigate or prosecute any alcohol or drug abuse patient.[facility] HospitalIn the event this information is protected by the Federal Confidentiality of Alcohol and Drug Abuse Patient Records regulations: The Federal rules restrict any use of the information to criminally investigate or prosecute any alcohol or drug abuse patient.[facility] HospitalIn the event this information is protected by the Federal Confidentiality of Alcohol and Drug Abuse Patient Records regulations: The Federal rules restrict any use of the information to criminally investigate or prosecute any alcohol or drug abuse patient.[facility] HospitalIn the event this information is protected by the Federal Confidentiality of Alcohol and Drug Abuse Patient Records regulations: The Federal rules restrict any use of the information to criminally investigate or prosecute any alcohol or drug abuse patient.[facility] HospitalIn the event this information is protected by the Federal Confidentiality of Alcohol and Drug Abuse Patient Records regulations: The Federal rules restrict any use of the information to criminally investigate or prosecute any alcohol or drug abuse patient.[facility] HospitalIn the event this information is protected by the Federal Confidentiality of Alcohol and Drug Abuse Patient Records regulations: The Federal rules restrict any use of the information to criminally investigate or prosecute any alcohol or drug abuse patient.[facility] HospitalIn the event this information is protected by the Federal Confidentiality of Alcohol and Drug Abuse Patient Records regulations: The Federal rules restrict any use of the information to criminally investigate or prosecute any alcohol or drug abuse patient.[facility] HospitalIn the event this information is protected by the Federal Confidentiality of Alcohol and Drug Abuse Patient Records regulations: The Federal rules restrict any use of the information to criminally investigate or prosecute any alcohol or drug abuse patient.[facility] HospitalIn the event this information is protected by the Federal Confidentiality of Alcohol and Drug Abuse Patient Records regulations: The Federal rules restrict any use of the information to criminally investigate or prosecute any alcohol or drug abuse patient.[facility] HospitalIn the event this information is protected by the Federal Confidentiality of Alcohol and Drug Abuse Patient Records regulations: The Federal rules restrict any use of the information to criminally investigate or prosecute any alcohol or drug abuse patient.[facility] HospitalIn the event this information is protected by the Federal Confidentiality of Alcohol and Drug Abuse Patient Records regulations: The Federal rules restrict any use of the information to criminally investigate or prosecute any alcohol or drug abuse patient.[facility] HospitalIn the event this information is protected by the Federal Confidentiality of Alcohol and Drug Abuse Patient Records regulations: The Federal rules restrict any use of the information to criminally investigate or prosecute any alcohol or drug abuse patient.[facility] HospitalIn the event this information is protected by the Federal Confidentiality of Alcohol and Drug Abuse Patient Records regulations: The Federal rules restrict any use of the information to criminally investigate or prosecute any alcohol or drug abuse patient.[facility] HospitalIn the event this information is protected by the Federal Confidentiality of Alcohol and Drug Abuse Patient Records regulations: The Federal rules restrict any use of the information to criminally investigate or prosecute any alcohol or drug abuse patient.[facility] HospitalIn the event this information is protected by the Federal Confidentiality of Alcohol and Drug Abuse Patient Records regulations: The Federal rules restrict any use of the information to criminally investigate or prosecute any alcohol or drug abuse patient.[facility] HospitalIn the event this information is protected by the Federal Confidentiality of Alcohol and Drug Abuse Patient Records regulations: The Federal rules restrict any use of the information to criminally investigate or prosecute any alcohol or drug abuse patient.[facility] HospitalIn the event this information is protected by the Federal Confidentiality of Alcohol and Drug Abuse Patient Records regulations: The Federal rules restrict any use of the information to criminally investigate or prosecute any alcohol or drug abuse patient.[facility] HospitalIn the event this information is protected by the Federal Confidentiality of Alcohol and Drug Abuse Patient Records regulations: The Federal rules restrict any use of the information to criminally investigate or prosecute any alcohol or drug abuse patient.[facility] HospitalIn the event this information is protected by the Federal Confidentiality of Alcohol and Drug Abuse Patient Records regulations: The Federal rules restrict any use of the information to criminally investigate or prosecute any alcohol or drug abuse patient.[facility] HospitalIn the event this information is protected by the Federal Confidentiality of Alcohol and Drug Abuse Patient Records regulations: The Federal rules restrict any use of the information to criminally investigate or prosecute any alcohol or drug abuse patient.[facility] HospitalIn the event this information is protected by the Federal Confidentiality of Alcohol and Drug Abuse Patient Records regulations: The Federal rules restrict any use of the information to criminally investigate or prosecute any alcohol or drug abuse patient.[facility] HospitalIn the event this information is protected by the Federal Confidentiality of Alcohol and Drug Abuse Patient Records regulations: The Federal rules restrict any use of the information to criminally investigate or prosecute any alcohol or drug abuse patient.[facility] HospitalIn the event this information is protected by the Federal Confidentiality of Alcohol and Drug Abuse Patient Records regulations: The Federal rules restrict any use of the information to criminally investigate or prosecute any alcohol or drug abuse patient.[facility] HospitalIn the event this information is protected by the Federal Confidentiality of Alcohol and Drug Abuse Patient Records regulations: The Federal rules restrict any use of the information to criminally investigate or prosecute any alcohol or drug abuse patient.[facility] HospitalIn the event this information is protected by the Federal Confidentiality of Alcohol and Drug Abuse Patient Records regulations: The Federal rules restrict any use of the information to criminally investigate or prosecute any alcohol or drug abuse patient.[facility] HospitalIn the event this information is protected by the Federal Confidentiality of Alcohol and Drug Abuse Patient Records regulations: The Federal rules restrict any use of the information to criminally investigate or prosecute any alcohol or drug abuse patient.[facility] HospitalIn the event this information is protected by the Federal Confidentiality of Alcohol and Drug Abuse Patient Records regulations: The Federal rules restrict any use of the information to criminally investigate or prosecute any alcohol or drug abuse patient.[facility] HospitalIn the event this information is protected by the Federal Confidentiality of Alcohol and Drug Abuse Patient Records regulations: The Federal rules restrict any use of the information to criminally investigate or prosecute any alcohol or drug abuse patient.[facility] HospitalIn the event this information is protected by the Federal Confidentiality of Alcohol and Drug Abuse Patient Records regulations: The Federal rules restrict any use of the information to criminally investigate or prosecute any alcohol or drug abuse patient.[facility] HospitalIn the event this information is protected by the Federal Confidentiality of Alcohol and Drug Abuse Patient Records regulations: The Federal rules restrict any use of the information to criminally investigate or prosecute any alcohol or drug abuse patient.[facility] HospitalIn the event this information is protected by the Federal Confidentiality of Alcohol and Drug Abuse Patient Records regulations: The Federal rules restrict any use of the information to criminally investigate or prosecute any alcohol or drug abuse patient.[facility] HospitalIn the event this information is protected by the Federal Confidentiality of Alcohol and Drug Abuse Patient Records regulations: The Federal rules restrict any use of the information to criminally investigate or prosecute any alcohol or drug abuse patient.[facility] HospitalIn the event this information is protected by the Federal Confidentiality of Alcohol and Drug Abuse Patient Records regulations: The Federal rules restrict any use of the information to criminally investigate or prosecute any alcohol or drug abuse patient.[facility] HospitalIn the event this information is protected by the Federal Confidentiality of Alcohol and Drug Abuse Patient Records regulations: The Federal rules restrict any use of the information to criminally investigate or prosecute any alcohol or drug abuse patient.[facility] HospitalIn the event this information is protected by the Federal Confidentiality of Alcohol and Drug Abuse Patient Records regulations: The Federal rules restrict any use of the information to criminally investigate or prosecute any alcohol or drug abuse patient.[facility] HospitalIn the event this information is protected by the Federal Confidentiality of Alcohol and Drug Abuse Patient Records regulations: The Federal rules restrict any use of the information to criminally investigate or prosecute any alcohol or drug abuse patient.[facility] HospitalIn the event this information is protected by the Federal Confidentiality of Alcohol and Drug Abuse Patient Records regulations: The Federal rules restrict any use of the information to criminally investigate or prosecute any alcohol or drug abuse patient.[facility] HospitalIn the event this information is protected by the Federal Confidentiality of Alcohol and Drug Abuse Patient Records regulations: The Federal rules restrict any use of the information to criminally investigate or prosecute any alcohol or drug abuse patient.[facility] HospitalIn the event this information is protected by the Federal Confidentiality of Alcohol and Drug Abuse Patient Records regulations: The Federal rules restrict any use of the information to criminally investigate or prosecute any alcohol or drug abuse patient.[facility] HospitalIn the event this information is protected by the Federal Confidentiality of Alcohol and Drug Abuse Patient Records regulations: The Federal rules restrict any use of the information to criminally investigate or prosecute any alcohol or drug abuse patient.[facility] HospitalIn the event this information is protected by the Federal Confidentiality of Alcohol and Drug Abuse Patient Records regulations: The Federal rules restrict any use of the information to criminally investigate or prosecute any alcohol or drug abuse patient.[facility] HospitalIn the event this information is protected by the Federal Confidentiality of Alcohol and Drug Abuse Patient Records regulations: The Federal rules restrict any use of the information to criminally investigate or prosecute any alcohol or drug abuse patient.[facility] HospitalIn the event this information is protected by the Federal Confidentiality of Alcohol and Drug Abuse Patient Records regulations: The Federal rules restrict any use of the information to criminally investigate or prosecute any alcohol or drug abuse patient.[facility] HospitalIn the event this information is protected by the Federal Confidentiality of Alcohol and Drug Abuse Patient Records regulations: The Federal rules restrict any use of the information to criminally investigate or prosecute any alcohol or drug abuse patient.[facility] HospitalIn the event this information is protected by the Federal Confidentiality of Alcohol and Drug Abuse Patient Records regulations: The Federal rules restrict any use of the information to criminally investigate or prosecute any alcohol or drug abuse patient.[facility] HospitalIn the event this information is protected by the Federal Confidentiality of Alcohol and Drug Abuse Patient Records regulations: The Federal rules restrict any use of the information to criminally investigate or prosecute any alcohol or drug abuse patient.[facility] HospitalIn the event this information is protected by the Federal Confidentiality of Alcohol and Drug Abuse Patient Records regulations: The Federal rules restrict any use of the information to criminally investigate or prosecute any alcohol or drug abuse patient.[facility] HospitalIn the event this information is protected by the Federal Confidentiality of Alcohol and Drug Abuse Patient Records regulations: The Federal rules restrict any use of the information to criminally investigate or prosecute any alcohol or drug abuse patient.[facility] HospitalIn the event this information is protected by the Federal Confidentiality of Alcohol and Drug Abuse Patient Records regulations: The Federal rules restrict any use of the information to criminally investigate or prosecute any alcohol or drug abuse patient.[facility] HospitalIn the event this information is protected by the Federal Confidentiality of Alcohol and Drug Abuse Patient Records regulations: The Federal rules restrict any use of the information to criminally investigate or prosecute any alcohol or drug abuse patient.[facility] HospitalIn the event this information is protected by the Federal Confidentiality of Alcohol and Drug Abuse Patient Records regulations: The Federal rules restrict any use of the information to criminally investigate or prosecute any alcohol or drug abuse patient.[facility] HospitalIn the event this information is protected by the Federal Confidentiality of Alcohol and Drug Abuse Patient Records regulations: The Federal rules restrict any use of the information to criminally investigate or prosecute any alcohol or drug abuse patient.[facility] HospitalIn the event this information is protected by the Federal Confidentiality of Alcohol and Drug Abuse Patient Records regulations: The Federal rules restrict any use of the information to criminally investigate or prosecute any alcohol or drug abuse patient.[facility] HospitalIn the event this information is protected by the Federal Confidentiality of Alcohol and Drug Abuse Patient Records regulations: The Federal rules restrict any use of the information to criminally investigate or prosecute any alcohol or drug abuse patient.[facility] HospitalIn the event this information is protected by the Federal Confidentiality of Alcohol and Drug Abuse Patient Records regulations: The Federal rules restrict any use of the information to criminally investigate or prosecute any alcohol or drug abuse patient.[facility] HospitalIn the event this information is protected by the Federal Confidentiality of Alcohol and Drug Abuse Patient Records regulations: The Federal rules restrict any use of the information to criminally investigate or prosecute any alcohol or drug abuse patient.[facility] HospitalIn the event this information is protected by the Federal Confidentiality of Alcohol and Drug Abuse Patient Records regulations: The Federal rules restrict any use of the information to criminally investigate or prosecute any alcohol or drug abuse patient.[facility] HospitalIn the event this information is protected by the Federal Confidentiality of Alcohol and Drug Abuse Patient Records regulations: The Federal rules restrict any use of the information to criminally investigate or prosecute any alcohol or drug abuse patient.[facility] HospitalIn the event this information is protected by the Federal Confidentiality of Alcohol and Drug Abuse Patient Records regulations: The Federal rules restrict any use of the information to criminally investigate or prosecute any alcohol or drug abuse patient.[facility] HospitalIn the event this information is protected by the Federal Confidentiality of Alcohol and Drug Abuse Patient Records regulations: The Federal rules restrict any use of the information to criminally investigate or prosecute any alcohol or drug abuse patient.[facility] HospitalIn the event this information is protected by the Federal Confidentiality of Alcohol and Drug Abuse Patient Records regulations: The Federal rules restrict any use of the information to criminally investigate or prosecute any alcohol or drug abuse patient.[facility] HospitalIn the event this information is protected by the Federal Confidentiality of Alcohol and Drug Abuse Patient Records regulations: The Federal rules restrict any use of the information to criminally investigate or prosecute any alcohol or drug abuse patient.[facility] HospitalIn the event this information is protected by the Federal Confidentiality of Alcohol and Drug Abuse Patient Records regulations: The Federal rules restrict any use of the information to criminally investigate or prosecute any alcohol or drug abuse patient.[facility] HospitalIn the event this information is protected by the Federal Confidentiality of Alcohol and Drug Abuse Patient Records regulations: The Federal rules restrict any use of the information to criminally investigate or prosecute any alcohol or drug abuse patient.[facility] HospitalIn the event this information is protected by the Federal Confidentiality of Alcohol and Drug Abuse Patient Records regulations: The Federal rules restrict any use of the information to criminally investigate or prosecute any alcohol or drug abuse patient.[facility] HospitalIn the event this information is protected by the Federal Confidentiality of Alcohol and Drug Abuse Patient Records regulations: The Federal rules restrict any use of the information to criminally investigate or prosecute any alcohol or drug abuse patient.[facility] HospitalIn the event this information is protected by the Federal Confidentiality of Alcohol and Drug Abuse Patient Records regulations: The Federal rules restrict any use of the information to criminally investigate or prosecute any alcohol or drug abuse patient.[facility] HospitalIn the event this information is protected by the Federal Confidentiality of Alcohol and Drug Abuse Patient Records regulations: The Federal rules restrict any use of the information to criminally investigate or prosecute any alcohol or drug abuse patient.[facility] HospitalIn the event this information is protected by the Federal Confidentiality of Alcohol and Drug Abuse Patient Records regulations: The Federal rules restrict any use of the information to criminally investigate or prosecute any alcohol or drug abuse patient.[facility] HospitalIn the event this information is protected by the Federal Confidentiality of Alcohol and Drug Abuse Patient Records regulations: The Federal rules restrict any use of the information to criminally investigate or prosecute any alcohol or drug abuse patient.[facility] HospitalIn the event this information is protected by the Federal Confidentiality of Alcohol and Drug Abuse Patient Records regulations: The Federal rules restrict any use of the information to criminally investigate or prosecute any alcohol or drug abuse patient.[facility] HospitalIn the event this information is protected by the Federal Confidentiality of Alcohol and Drug Abuse Patient Records regulations: The Federal rules restrict any use of the information to criminally investigate or prosecute any alcohol or drug abuse patient.[facility] HospitalIn the event this information is protected by the Federal Confidentiality of Alcohol and Drug Abuse Patient Records regulations: The Federal rules restrict any use of the information to criminally investigate or prosecute any alcohol or drug abuse patient.[facility] HospitalIn the event this information is protected by the Federal Confidentiality of Alcohol and Drug Abuse Patient Records regulations: The Federal rules restrict any use of the information to criminally investigate or prosecute any alcohol or drug abuse patient.[facility] HospitalIn the event this information is protected by the Federal Confidentiality of Alcohol and Drug Abuse Patient Records regulations: The Federal rules restrict any use of the information to criminally investigate or prosecute any alcohol or drug abuse patient.[facility] HospitalIn the event this information is protected by the Federal Confidentiality of Alcohol and Drug Abuse Patient Records regulations: The Federal rules restrict any use of the information to criminally investigate or prosecute any alcohol or drug abuse patient.[facility] HospitalIn the event this information is protected by the Federal Confidentiality of Alcohol and Drug Abuse Patient Records regulations: The Federal rules restrict any use of the information to criminally investigate or prosecute any alcohol or drug abuse patient.[facility] HospitalIn the event this information is protected by the Federal Confidentiality of Alcohol and Drug Abuse Patient Records regulations: The Federal rules restrict any use of the information to criminally investigate or prosecute any alcohol or drug abuse patient.[facility] HospitalIn the event this information is protected by the Federal Confidentiality of Alcohol and Drug Abuse Patient Records regulations: The Federal rules restrict any use of the information to criminally investigate or prosecute any alcohol or drug abuse patient.[facility] HospitalIn the event this information is protected by the Federal Confidentiality of Alcohol and Drug Abuse Patient Records regulations: The Federal rules restrict any use of the information to criminally investigate or prosecute any alcohol or drug abuse patient.[facility] HospitalIn the event this information is protected by the Federal Confidentiality of Alcohol and Drug Abuse Patient Records regulations: The Federal rules restrict any use of the information to criminally investigate or prosecute any alcohol or drug abuse patient.[facility] HospitalIn the event this information is protected by the Federal Confidentiality of Alcohol and Drug Abuse Patient Records regulations: The Federal rules restrict any use of the information to criminally investigate or prosecute any alcohol or drug abuse patient.[facility] HospitalIn the event this information is protected by the Federal Confidentiality of Alcohol and Drug Abuse Patient Records regulations: The Federal rules restrict any use of the information to criminally investigate or prosecute any alcohol or drug abuse patient.[facility] HospitalIn the event this information is protected by the Federal Confidentiality of Alcohol and Drug Abuse Patient Records regulations: The Federal rules restrict any use of the information to criminally investigate or prosecute any alcohol or drug abuse patient.[facility] HospitalIn the event this information is protected by the Federal Confidentiality of Alcohol and Drug Abuse Patient Records regulations: The Federal rules restrict any use of the information to criminally investigate or prosecute any alcohol or drug abuse patient.[facility] HospitalIn the event this information is protected by the Federal Confidentiality of Alcohol and Drug Abuse Patient Records regulations: The Federal rules restrict any use of the information to criminally investigate or prosecute any alcohol or drug abuse patient.[facility] HospitalIn the event this information is protected by the Federal Confidentiality of Alcohol and Drug Abuse Patient Records regulations: The Federal rules restrict any use of the information to criminally investigate or prosecute any alcohol or drug abuse patient.[facility] HospitalIn the event this information is protected by the Federal Confidentiality of Alcohol and Drug Abuse Patient Records regulations: The Federal rules restrict any use of the information to criminally investigate or prosecute any alcohol or drug abuse patient.[facility] HospitalIn the event this information is protected by the Federal Confidentiality of Alcohol and Drug Abuse Patient Records regulations: The Federal rules restrict any use of the information to criminally investigate or prosecute any alcohol or drug abuse patient.[facility] HospitalIn the event this information is protected by the Federal Confidentiality of Alcohol and Drug Abuse Patient Records regulations: The Federal rules restrict any use of the information to criminally investigate or prosecute any alcohol or drug abuse patient.[facility] HospitalIn the event this information is protected by the Federal Confidentiality of Alcohol and Drug Abuse Patient Records regulations: The Federal rules restrict any use of the information to criminally investigate or prosecute any alcohol or drug abuse patient.[facility] HospitalIn the event this information is protected by the Federal Confidentiality of Alcohol and Drug Abuse Patient Records regulations: The Federal rules restrict any use of the information to criminally investigate or prosecute any alcohol or drug abuse patient.[facility] HospitalIn the event this information is protected by the Federal Confidentiality of Alcohol and Drug Abuse Patient Records regulations: The Federal rules restrict any use of the information to criminally investigate or prosecute any alcohol or drug abuse patient.[facility] HospitalIn the event this information is protected by the Federal Confidentiality of Alcohol and Drug Abuse Patient Records regulations: The Federal rules restrict any use of the information to criminally investigate or prosecute any alcohol or drug abuse patient.[facility] HospitalIn the event this information is protected by the Federal Confidentiality of Alcohol and Drug Abuse Patient Records regulations: The Federal rules restrict any use of the information to criminally investigate or prosecute any alcohol or drug abuse patient.[facility] HospitalIn the event this information is protected by the Federal Confidentiality of Alcohol and Drug Abuse Patient Records regulations: The Federal rules restrict any use of the information to criminally investigate or prosecute any alcohol or drug abuse patient.[facility] HospitalIn the event this information is protected by the Federal Confidentiality of Alcohol and Drug Abuse Patient Records regulations: The Federal rules restrict any use of the information to criminally investigate or prosecute any alcohol or drug abuse patient.[facility] HospitalIn the event this information is protected by the Federal Confidentiality of Alcohol and Drug Abuse Patient Records regulations: The Federal rules restrict any use of the information to criminally investigate or prosecute any alcohol or drug abuse patient.[facility] HospitalIn the event this information is protected by the Federal Confidentiality of Alcohol and Drug Abuse Patient Records regulations: The Federal rules restrict any use of the information to criminally investigate or prosecute any alcohol or drug abuse patient.[facility] HospitalIn the event this information is protected by the Federal Confidentiality of Alcohol and Drug Abuse Patient Records regulations: The Federal rules restrict any use of the information to criminally investigate or prosecute any alcohol or drug abuse patient.[facility] HospitalIn the event this information is protected by the Federal Confidentiality of Alcohol and Drug Abuse Patient Records regulations: The Federal rules restrict any use of the information to criminally investigate or prosecute any alcohol or drug abuse patient.[facility] HospitalIn the event this information is protected by the Federal Confidentiality of Alcohol and Drug Abuse Patient Records regulations: The Federal rules restrict any use of the information to criminally investigate or prosecute any alcohol or drug abuse patient.[facility] HospitalIn the event this information is protected by the Federal Confidentiality of Alcohol and Drug Abuse Patient Records regulations: The Federal rules restrict any use of the information to criminally investigate or prosecute any alcohol or drug abuse patient.[facility] HospitalIn the event this information is protected by the Federal Confidentiality of Alcohol and Drug Abuse Patient Records regulations: The Federal rules restrict any use of the information to criminally investigate or prosecute any alcohol or drug abuse patient.[facility] HospitalIn the event this information is protected by the Federal Confidentiality of Alcohol and Drug Abuse Patient Records regulations: The Federal rules restrict any use of the information to criminally investigate or prosecute any alcohol or drug abuse patient.[facility] HospitalIn the event this information is protected by the Federal Confidentiality of Alcohol and Drug Abuse Patient Records regulations: The Federal rules restrict any use of the information to criminally investigate or prosecute any alcohol or drug abuse patient.[facility] HospitalIn the event this information is protected by the Federal Confidentiality of Alcohol and Drug Abuse Patient Records regulations: The Federal rules restrict any use of the information to criminally investigate or prosecute any alcohol or drug abuse patient.[facility] HospitalIn the event this information is protected by the Federal Confidentiality of Alcohol and Drug Abuse Patient Records regulations: The Federal rules restrict any use of the information to criminally investigate or prosecute any alcohol or drug abuse patient.[facility] HospitalIn the event this information is protected by the Federal Confidentiality of Alcohol and Drug Abuse Patient Records regulations: The Federal rules restrict any use of the information to criminally investigate or prosecute any alcohol or drug abuse patient.[facility] HospitalIn the event this information is protected by the Federal Confidentiality of Alcohol and Drug Abuse Patient Records regulations: The Federal rules restrict any use of the information to criminally investigate or prosecute any alcohol or drug abuse patient.[facility] HospitalIn the event this information is protected by the Federal Confidentiality of Alcohol and Drug Abuse Patient Records regulations: The Federal rules restrict any use of the information to criminally investigate or prosecute any alcohol or drug abuse patient.[facility] HospitalIn the event this information is protected by the Federal Confidentiality of Alcohol and Drug Abuse Patient Records regulations: The Federal rules restrict any use of the information to criminally investigate or prosecute any alcohol or drug abuse patient.[facility] HospitalIn the event this information is protected by the Federal Confidentiality of Alcohol and Drug Abuse Patient Records regulations: The Federal rules restrict any use of the information to criminally investigate or prosecute any alcohol or drug abuse patient.[facility] HospitalIn the event this information is protected by the Federal Confidentiality of Alcohol and Drug Abuse Patient Records regulations: The Federal rules restrict any use of the information to criminally investigate or prosecute any alcohol or drug abuse patient.[facility] HospitalIn the event this information is protected by the Federal Confidentiality of Alcohol and Drug Abuse Patient Records regulations: The Federal rules restrict any use of the information to criminally investigate or prosecute any alcohol or drug abuse patient.[facility] HospitalIn the event this information is protected by the Federal Confidentiality of Alcohol and Drug Abuse Patient Records regulations: The Federal rules restrict any use of the information to criminally investigate or prosecute any alcohol or drug abuse patient.[facility] HospitalIn the event this information is protected by the Federal Confidentiality of Alcohol and Drug Abuse Patient Records regulations: The Federal rules restrict any use of the information to criminally investigate or prosecute any alcohol or drug abuse patient.[facility] Care Teams (unrecognized sec tion and content) Chemical Educator Relationship Specialty Start Date End Date Lynne Chan MD [address] [place], [place] [id number] PCP - General Internal Medicine 06/08/20 Demetria Lopez (Rn) (Hist), radiotelegrapher Coordinator Cardiology 05/19/15, Pharmacist [id number] [place] [address] Pharmacist Pharmacy 06/09/20 Chemical Educator Relationship Specialty Start Date End Date Lynne Chan MD [address] [place] [address] PCP - General Internal Medicine 06/08/20 Demetria LopezRn) (Hist), radiotelegrapher Coordinator Cardiology 05/19/15, Pharmacist [id number] [place] [address] Pharmacist Pharmacy 06/09/20 Chemical Educator Relationship Specialty Start Date End Date Lynne Chan MD [address] [place] [address] PCP - General Internal Medicine 06/08/20 Demetria Lopez) (Hist), radiotelegrapher Coordinator Cardiology 05/19/15, Pharmacist [id number] [place] [address] Pharmacist Pharmacy 06/09/20 Chemical Educator Relationship Specialty Start Date End Date Lynne Chan MD [address] [place] [address] PCP - General Internal Medicine 06/08/20 Demetria Lopez (Rn) (Hist), radiotelegrapher Coordinator Cardiology 05/19/15, Pharmacist [address] [place] [address] Pharmacist Pharmacy 06/09/20 Chemical Educator Relationship Specialty Start Date End Date Lynne Chan MD [address] [place] [address] PCP - General Internal Medicine 06/08/20 Demetria Lopez (Rn) (Hist), radiotelegrapher Coordinator Cardiology 05/19/15, Pharmacist [address] [place] [address] Pharmacist Pharmacy 06/09/20 Chemical Educator Relationship Specialty Start Date End Date Lynne Chan MD [address] [place] [address] PCP - General Internal Medicine 06/08/20 Demetria Lopez (Rn) (Hist), radiotelegrapher Coordinator Cardiology 05/19/15, Pharmacist [id number] [facility] [place] [address] Pharmacist Pharmacy 06/09/20 Chemical Educator Relationship Specialty Start Date End Date Lynne Chan MD [address] [place] [address] PCP - General Internal Medicine 06/08/20 Demetria Lopez (Rn) (Hist), radiotelegrapher Coordinator Cardiology 05/19/15, Pharmacist [id number] [facility] [place] [address] Pharmacist Pharmacy 06/09/20 Chemical Educator Relationship Specialty Start Date End Date Lynne Chan MD [address] [place] [address] PCP - General Internal Medicine 06/08/20 Demetria Lopez (Rn) (Hist), radiotelegrapher Coordinator Cardiology 05/19/15, Pharmacist [id number] [facility] [place] [address] Pharmacist Pharmacy 06/09/20 Chemical Educator Relationship Specialty Start Date End Date Lynne Chan MD [address] [place] [address] PCP - General Internal Medicine 06/08/20 Demetria Lopez (Rn) (Hist), radiotelegrapher Coordinator Cardiology 05/19/15, Pharmacist [id number] [place] [address] Pharmacist Pharmacy 06/09/20 Chemical Educator Relationship Specialty Start Date End Date Lynne Chan MD [address] [place] [address] PCP - General Internal Medicine 06/08/20 Demetria Lopez (Rn) (Hist), radiotelegrapher Coordinator Cardiology 05/19/15, Pharmacist [address] [place] [address] Pharmacist Pharmacy 06/09/20 Chemical Educator Relationship Specialty Start Date End Date Lynne Chan MD [address] [place] [address] PCP - General Internal Medicine 06/08/20 Demetria Lopez (Rn) (Hist), radiotelegrapher Coordinator Cardiology 05/19/15, Pharmacist [id number] [place] [address] Pharmacist Pharmacy 06/09/20 Chemical Educator Relationship Specialty Start Date End Date Lynne Chan MD [address] [place] [address] PCP - General Internal Medicine 06/08/20 Demetria Lopez (Rn) (Hist), radiotelegrapher Coordinator Cardiology 05/19/15, Pharmacist [address] [place] [address] Pharmacist Pharmacy 06/09/20 Chemical Educator Relationship Specialty Start Date End Date Lynne Chan MD [address] [place] [address] PCP - General Internal Medicine 06/08/20 Demetria Lopez (Rn) (Hist), radiotelegrapher Coordinator Cardiology 05/19/15, Pharmacist [address] [place] [address] Pharmacist Pharmacy 06/09/20 Chemical Educator Relationship Specialty Start Date End Date Lynne Chan MD [address] [place] [address] PCP - General Internal Medicine 06/08/20 Demetria Lopez (Rn) (Hist), radiotelegrapher Coordinator Cardiology 05/19/15, Pharmacist [id number] [place] [address] Pharmacist Pharmacy 06/09/20 Chemical Educator Relationship Specialty Start Date End Date Lynne Chan MD [address] [place] [address] PCP - General Internal Medicine 06/08/20 Demetria Lopez (Rn) (Hist), radiotelegrapher Coordinator Cardiology 05/19/15, Pharmacist [address] [place] [address] Pharmacist Pharmacy 06/09/20 Chemical Educator Relationship Specialty Start Date End Date Lynne Chan MD [address] [place] [address] PCP - General Internal Medicine 06/08/20 Demetria Loepz (Rn) (Hist), radiotelegrapher Coordinator Cardiology 05/19/15, Pharmacist [address] [place] [address] Pharmacist Pharmacy 06/09/20 Chemical Educator Relationship Specialty Start Date End Date Lynne Chan MD [address] [place] [address] PCP - General Internal Medicine 06/08/20 Demetria Lopez (Rn) (Hist), radiotelegrapher Coordinator Cardiology 05/19/15, Pharmacist [address] [place] [address] Pharmacist Pharmacy 06/09/20 Chemical Educator Relationship Specialty Start Date End Date Lynne Chan MD [address] [place] [address] PCP - General Internal Medicine 06/08/20 Demetria Lopez (Rn) (Hist), radiotelegrapher Coordinator Cardiology 05/19/15, Pharmacist [address] [place] [address] Pharmacist Pharmacy 06/09/20 Chemical Educator Relationship Specialty Start Date End Date Lynne Chan MD [address] [place] [address] PCP - General Internal Medicine 06/08/20 Demetria Lopez (Rn) (Hist), radiotelegrapher Coordinator Cardiology 05/19/15, Pharmacist [address] [place] [address] Pharmacist Pharmacy 06/09/20 Chemical Educator Relationship Specialty Start Date End Date Lynne Chan MD [address] [place] [address] PCP - General Internal Medicine 06/08/20 Demetria Lopez (Rn) (Hist), radiotelegrapher Coordinator Cardiology 05/19/15, Pharmacist [address] [place] [address] Pharmacist Pharmacy 06/09/20 Chemical Educator Relationship Specialty Start Date End Date Lynne Chan MD [address] [place] [address] PCP - General Internal Medicine 06/08/20 Demetria Lopez (Rn) (Hist), radiotelegrapher Coordinator Cardiology 05/19/15, Pharmacist [address] [place] [address] Pharmacist Pharmacy 06/09/20 Chemical Educator Relationship Specialty Start Date End Date Lynne Chan MD [address] [place] [address] PCP - General Internal Medicine 06/08/20 Demetria LopezRn) (Hist), radiotelegrapher Coordinator Cardiology 05/19/15, Pharmacist [address] [place] [address] Pharmacist Pharmacy 06/09/20 Chemical Educator Relationship Specialty Start Date End Date Lynne Chan MD [address] [place] [address] PCP - General Internal Medicine 06/08/20 Demetria Lopez (Rn) (Hist), radiotelegrapher Coordinator Cardiology 05/19/15, Pharmacist [address] [facility] [place] [address] Pharmacist Pharmacy 06/09/20 Chemical Educator Relationship Specialty Start Date End Date Lynne Chan MD [address] [place] [address] PCP - General Internal Medicine 06/08/20 Demetria LopezRn) (Hist), radiotelegrapher Coordinator Cardiology 05/19/15, Pharmacist [address] [place] [address] Pharmacist Pharmacy 06/09/20 Chemical Educator Relationship Specialty Start Date End Date Lynne Chan MD [address] [place] [address] PCP - General Internal Medicine 06/08/20 Dmeetria LopezRn) (Hist), radiotelegrapher Coordinator Cardiology 05/19/15, Pharmacist [address] [place] [address] Pharmacist Pharmacy 06/09/20 Chemical Educator Relationship Specialty Start Date End Date Lynne Chan MD [address] [place] [address] PCP - General Internal Medicine 06/08/20 Demetria LopezRn) (Hist), radiotelegrapher Coordinator Cardiology 05/19/15, Pharmacist [address] [place] [address] Pharmacist Pharmacy 06/09/20 Chemical Educator Relationship Specialty Start Date End Date Lynne Chan MD [address] [place] [address] PCP - General Internal Medicine 06/08/20 Demetria Lopez (Rn) (Hist), radiotelegrapher Coordinator Cardiology 05/19/15, Pharmacist [address] [place] [address] Pharmacist Pharmacy 06/09/20 Chemical Educator Relationship Specialty Start Date End Date Lynne Chan MD [address] [place] [address] PCP - General Internal Medicine 06/08/20 Demetria Lopez (Rn) (Hist), radiotelegrapher Coordinator Cardiology 05/19/15, Pharmacist [address] [place] [address] Pharmacist Pharmacy 06/09/20 Chemical Educator Relationship Specialty Start Date End Date Lynne Chan MD [address] [place] [address] PCP - General Internal Medicine 06/08/20 Demetria Lopez (Rn) (Hist), radiotelegrapher Coordinator Cardiology 05/19/15, Pharmacist [address] [place] [address] Pharmacist Pharmacy 06/09/20 Chemical Educator Relationship Specialty Start Date End Date Lynne Chan MD [address] [place], [place] [address] PCP - General Internal Medicine 06/08/20 Demetria Lopez (Rn) (Hist), radiotelegrapher Coordinator Cardiology 05/19/15, Pharmacist [address] [place] [address] Pharmacist Pharmacy 06/09/20 Chemical Educator Relationship Specialty Start Date End Date Lynne Chan MD [address] [place], [place] [id number] PCP - General Internal Medicine 06/08/20 Demetria Lopez (Rn) (Hist), radiotelegrapher Coordinator Cardiology 05/19/15, Pharmacist [address] [place] [address] Pharmacist Pharmacy 06/09/20 Chemical Educator Relationship Specialty Start Date End Date Lynne Chan MD [address] [place], [place] [address] PCP - General Internal Medicine 06/08/20 Demetria Lopez (Rn) (Hist), radiotelegrapher Coordinator Cardiology 05/19/15, Pharmacist [address] [place] [address] Pharmacist Pharmacy 06/09/20 Chemical Educator Relationship Specialty Start Date End Date Lynne Chan MD [address] [place], [place] [address] PCP - General Internal Medicine 06/08/20 Demetria Lopez (Rn) (Hist), radiotelegrapher Coordinator Cardiology 05/19/15, Pharmacist [address] [place] [address] Pharmacist Pharmacy 06/09/20 Chemical Educator Relationship Specialty Start Date End Date Lynne Chan MD [address] [place] [address] PCP - General Internal Medicine 06/08/20 Demetria Lopez (Rn) (Hist), radiotelegrapher Coordinator Cardiology 05/19/15, Pharmacist [address] [place] [address] Pharmacist Pharmacy 06/09/20 Chemical Educator Relationship Specialty Start Date End Date Lynne Chan MD [address] [place], [place] [address] PCP - General Internal Medicine 06/08/20 Demetria Lopez (Rn) (Hist), radiotelegrapher Coordinator Cardiology 05/19/15, Pharmacist [address] [place] [address] Pharmacist Pharmacy 06/09/20 Chemical Educator Relationship Specialty Start Date End Date Lynne Chan MD [address] [place], [place] [address] PCP - General Internal Medicine 06/08/20 Demetria Lopez (Rn) (Hist), radiotelegrapher Coordinator Cardiology 05/19/15, Pharmacist [address] [place] [address] Pharmacist Pharmacy 06/09/20 Chemical Educator Relationship Specialty Start Date End Date Lynne Chan MD [address] [place], [place] [address] PCP - General Internal Medicine 06/08/20 Demetria Lopez (Rn) (Hist), radiotelegrapher Coordinator Cardiology 05/19/15, Pharmacist [address] [place] [address] Pharmacist Pharmacy 06/09/20 Chemical Educator Relationship Specialty Start Date End Date Lynne Chan MD [address] [place], [place] [address] PCP - General Internal Medicine 06/08/20 Demetria Lopez (Rn) (Hist), radiotelegrapher Coordinator Cardiology 05/19/15, Pharmacist [address] [place] [address] Pharmacist Pharmacy 06/09/20 Chemical Educator Relationship Specialty Start Date End Date Lynne Chan MD [address] [place], [place] [address] PCP - General Internal Medicine 06/08/20 Demetria Lopez (Rn) (Hist), radiotelegrapher Coordinator Cardiology 05/19/15, Pharmacist [address] [place] [address] Pharmacist Pharmacy 06/09/20 Chemical Educator Relationship Specialty Start Date End Date Lynne Chan MD [address] [place], [place] [id number] PCP - General Internal Medicine 06/08/20 Demetria Lopez (Rn) (Hist), radiotelegrapher Coordinator Cardiology 05/19/15, Pharmacist [id number] [place] [address] Pharmacist Pharmacy 06/09/20 Chemical Educator Relationship Specialty Start Date End Date Lynne Chan MD [address] [place], [place] [address] PCP - General Internal Medicine 06/08/20 Demetria Lopez (Rn) (Hist), radiotelegrapher Coordinator Cardiology 05/19/15, Pharmacist [id number] [place] [address] Pharmacist Pharmacy 06/09/20 Chemical Educator Relationship Specialty Start Date End Date Lynne Chan MD [address] [place] [address] PCP - General Internal Medicine 06/08/20 Demetria Lopez (Rn) (Hist), radiotelegrapher Coordinator Cardiology 05/19/15 13, Pharmacist [id number] [place] [address] Pharmacist Pharmacy 06/09/20 Chemical Educator Relationship Specialty Start Date End Date Lynne Chan MD [address] [place] [address] PCP - General Internal Medicine 06/08/20 Demetria Lopez (Rn) (Hist), radiotelegrapher Coordinator Cardiology 05/19/15, Pharmacist [id number] [place] [address] Pharmacist Pharmacy 06/09/20 Chemical Educator Relationship Specialty Start Date End Date Lynne Chan MD [address] [place] [address] PCP - General Internal Medicine 06/08/20 Demetria Lopez (Rn) (Hist), radiotelegrapher Coordinator Cardiology 05/19/15, Pharmacist [address] [place] [address] Pharmacist Pharmacy 06/09/20 Chemical Educator Relationship Specialty Start Date End Date Lynne Chan MD [address] [place], [place] [address] PCP - General Internal Medicine 06/08/20 Demetria Lopez (Rn) (Hist), radiotelegrapher Coordinator Cardiology 05/19/15, Pharmacist [id number] [place] [address] Pharmacist Pharmacy 06/09/20 Chemical Educator Relationship Specialty Start Date End Date Lynne Chan MD [address] [place] [address] PCP - General Internal Medicine 06/08/20 Demetria Lopez (Rn) (Hist), radiotelegrapher Coordinator Cardiology 05/19/15, Pharmacist [address] [place] [address] Pharmacist Pharmacy 06/09/20 Chemical Educator Relationship Specialty Start Date End Date Lynne Chan MD [address] [place] [address] PCP - General Internal Medicine 06/08/20 Demetria Lopez (Rn) (Hist), radiotelegrapher Coordinator Cardiology 05/19/15, Pharmacist [id number] [place] [address] Pharmacist Pharmacy 06/09/20 Chemical Educator Relationship Specialty Start Date End Date Lynne Chan MD [address] [place] [address] PCP - General Internal Medicine 06/08/20 Demetria Lopez (Rn) (Hist), radiotelegrapher Coordinator Cardiology 05/19/15, Pharmacist [id number] [place] [address] Pharmacist Pharmacy 06/09/20 03/25/24 Chemical Educator Relationship Specialty Start Date End Date Lynne Chan MD [address] [place] [address] PCP - General Internal Medicine 06/08/20 Demetria Lopez (Rn) (Hist), radiotelegrapher Coordinator Cardiology 05/19/15 Chemical Educator Relationship Specialty Start Date End Date Lynne Chan MD [address] [place] [address] PCP - General Internal Medicine 06/08/20 Demetria Lopez (Rn) (Hist), radiotelegrapher Coordinator Cardiology 05/19/15 Chemical Educator Relationship Specialty Start Date End Date Lynne Chan MD [address] [place] [address] PCP - General Internal Medicine 06/08/20 Demetria Lopez (Rn) (Hist), radiotelegrapher Coordinator Cardiology 05/19/15, Pharmacist [id number] [place] [address] Pharmacist Pharmacy 06/09/20 03/25/24 Chemical Educator Relationship Specialty Start Date End Date Lynne Chan MD [address] [place] [address] PCP - General Internal Medicine 06/08/20 Demetria Lopez (Rn) (Hist), radiotelegrapher Coordinator Cardiology 05/19/15, Pharmacist [address] [place] [address] Pharmacist Pharmacy 06/09/20 03/25/24 Chemical Educator Relationship Specialty Start Date End Date Lynne Chan MD [address] [place] [address] PCP - General Internal Medicine 06/08/20 Demetria Lopez (Rn) (Hist), radiotelegrapher Coordinator Cardiology 05/19/15, Pharmacist [address] [place] [address] Pharmacist Pharmacy 06/09/20 03/25/24 Chemical Educator Relationship Specialty Start Date End Date Lynne Chan MD [address] [place] [address] PCP - General Internal Medicine 06/08/20 Demetria Lopez (Rn) (Hist), radiotelegrapher Coordinator Cardiology 05/19/15, Pharmacist [address] [place] [address] Pharmacist Pharmacy 06/09/20 03/25/24 Chemical Educator Relationship Specialty Start Date End Date Lynne Chan MD [address] [place] [address] PCP - General Internal Medicine 06/08/20 Demetria Lopez (Rn) (Hist), radiotelegrapher Coordinator Cardiology 05/19/15 Chemical Educator Relationship Specialty Start Date End Date Lynne Chan MD [address] [place] [address] PCP - General Internal Medicine 06/08/20 Demetria Lopez (Rn) (Hist), radiotelegrapher Coordinator Cardiology 05/19/15 Chemical Educator Relationship Specialty Start Date End Date Lynne Chan MD [address] [place] [address] PCP - General Internal Medicine 06/08/20 Demetria Lopez (Rn) (Hist), radiotelegrapher Coordinator Cardiology 05/19/15 Chemical Educator Relationship Specialty Start Date End Date Lynne Chan MD [address] [place] [address] PCP - General Internal Medicine 06/08/20 Demetria Lopez (Rn) (Hist), radiotelegrapher Coordinator Cardiology 05/19/15 Chemical Educator Relationship Specialty Start Date End Date Lynne Chan MD [address] [place] [address] PCP - General Internal Medicine 06/08/20 Demetria Lopez (Rn) (Hist), radiotelegrapher Coordinator Cardiology 05/19/15 Chemical Educator Relationship Specialty Start Date End Date Lynne Chan MD [address] [place] [address] PCP - General Internal Medicine 06/08/20 Demetria Lopez (Rn) (Hist), radiotelegrapher Coordinator Cardiology 05/19/15 Chemical Educator Relationship Specialty Start Date End Date Lynne Chan MD [address] [place] [address] PCP - General Internal Medicine 06/08/20 Demetria Lopez (Rn) (Hist), radiotelegrapher Coordinator Cardiology 05/19/15 Chemical Educator Relationship Specialty Start Date End Date Lynne Chan MD [address] [place] [address] PCP - General Internal Medicine 06/08/20 Demetria Lopez (Rn) (Hist), radiotelegrapher Coordinator Cardiology 05/19/15 Reason for Visit (unrecogniz ed section and content) Reason Comments Spirometry Specialty Diagnoses / Procedures Referred By Contac t Referred To Contact [facility] Diagnoses 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) Follow-up examination after lung transplant ([facility]) Gastroesophageal reflux disease, unspecified whether esophagitis present Encounter for monitoring tacrolimus therapy Encounter for aftercare following lung transplant ([facility]) Essential hypertension Procedures SPIROMETRY BASELINE ONLY SPMTRY W/VC EXPIRATORY LORRAINE W/WO MXML VOL VNTJ Ioana Gracia DO [address] [place] [address] [facility] [address] [place] [address] Referral ID Status Reason Start Date Expiration Date V isits Requested Visits Authorized [id number] Closed Auto-Generate d Referral 08/17/2022 07/28/2023 1 1 Reason Comments Refill Request Reason Onset Date Comments Refill Request 12/28/2021 Reason Comments Anticoagulation Reason Comments Results Reason Comments Imm/Inj Reason Comments Radiology BMD Specialty Diagnoses / Procedures Referred By Contac t Referred To Contact XR IMAGING Diagnoses Care after organ transplant Lung transplant status, bilateral ([facility]) Bronchiolitis obliterans syndrome (HCC) Class 1 obesity without serious comorbidity with body mass index (BMI) of 34.0 to 34.9 in adult, unspecified obesity type Encounter for monitoring tacrolimus therapy CTEPH (chronic thromboembolic pulmonary hypertension) ([facility]) ABHIJIT (obstructive sleep apnea) Abnormal uterine and vaginal bleeding, unspecified Lung replaced by transplant ([facility]) 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 for osteoporosis custodial 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 Procedures DXA-AXIAL SKELETON WITH VFA DXA BONE DENSITY STUDY AXIAL SKELETON Jeni Daly MD [address] [place] [address] Xr Imaging Referral ID Status Reason Start Date Expiration Date V isits Requested Visits Authorized [id number] Closed Auto-Generate d Referral 02/17/2022 12/17/2022 1 1 Reason Comments Lung Transplant Follow Up Specialty Diagnoses / Procedures Referred By Liv flowers Referred To Contact Pulmonary and Critical Care Medicine / PULMONARY MEDICINE Diagnoses post lung transplant Procedures RI EST TRANSPLANT Jeni Daly MD [address] [place] [address] Jeni Daly MD [address] [place] [address] Referral ID Status Reason Start Date Expiration Date V isits Requested Visits Authorized [id number] Authorized 02/17/2022 05/18/2022 99 99 Reason Comments Radio Gen A21 Specialty Diagnoses / Procedures Referred By Liv flowers Referred To Contact Radiology / [facility] A21 Diagnoses post lung transplant Procedures XR CHEST Jeni Daly MD [address] [place] [address] Radio General Main A21 [address] [place] [address] Referral ID Status Reason Start Date Expiration Date V isits Requested Visits Authorized [id number] Closed Patient Cleared - INN Insurance Found 02/17/2022 05/18/2022 1 1 Reason Comments Yearly Exam Annual Exam Reason Onset Date Comments Refill Request 03/15/2022 Reason Comments Follow Up Covid exposure. Specialty Diagnoses / Procedures Referred By Liv flowers Referred To Contact Pulmonary and Critical Care Medicine / PULMONARY MEDICINE Diagnoses post lung transplant Procedures RI EST TRANSPLANT Jeni Daly MD [address] [place] [address] Jeni Daly MD [address] [place] [address] Referral ID Status Reason Start Date Expiration Date V isits Requested Visits Authorized [id number] Authorized 02/17/2022 09/10/2022 99 99 Reason Comments Rx Refills Reason Onset Date Comments Anticoagulation 07/11/2022 Reason Onset Date Comments Anticoagulation 08/15/2022 Reason Comments Radio GI Main HB6 Specialty Diagnoses / Procedures Referred By Contac t Referred To Contact XR IMAGING Diagnoses 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) Gastroesophageal reflux disease, unspecified whether esophagitis present Procedures XR ESOPHAGRAM RADIOLOGIC EXAM ESOPHAGUS SINGLE CONTRAST STUDY Ioana Gracia DO [address] [place] [address] Xr Imaging Referral ID Status Reason Start Date Expiration Date V isits Requested Visits Authorized [id number] Closed Auto-Generate d Referral 06/28/2022 07/28/2023 1 1 Reason Onset Date Comments Opened In Error 08/18/2022 Reason Comments Medication Problem buPROPion XL (WELLBU APOLLO XL) 150 mg 24 hr tablet Reason Onset Date Comments Refill Request 09/28/2022 Reason Comments Returning Patient's Call Reason Onset Date Comments Refill Request 10/05/2022 Reason Comments Obesity Reason Comments Osteoporosis Screening Reason Comments Yearly Exam Reason Comments Orders Reason Comments Recheck Reason Onset Date Comments Refill Request 03/08/2023 Reason Comments Patient Update Reason Comments Insurance Authorization Specialty Diagnoses / Procedures Referred By Contac t Referred To [facility] Diagnoses 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) Care after organ transplant Lung transplant status, bilateral (HCC) Bronchiolitis obliterans syndrome (HCC) Class 3 severe obesity without serious comorbidity with body mass index (BMI) of 40.0 to 44.9 in adult, unspecified obesity type (HCC) Encounter for monitoring tacrolimus therapy Essential hypertension Procedures SPIROMETRY BASELINE ONLY SPMTRY W/VC EXPIRATORY LORRAINE W/WO MXML VOL VNTJ Jeni Daly MD [address] [place] [address] [facility] [address] [place] [address] Referral ID Status Reason Start Date Expiration Date V isits Requested Visits Authorized [id number] Closed Auto-Generate d Referral 05/02/2023 02/02/2024 1 1 Reason Comments Established Patient Lung Transplant Follow Up Reason Onset Date Comments Refill Request 05/10/2023 Reason Onset Date Comments Anticoagulation 08/01/2023 Reason Onset Date Comments Refill Request 08/08/2023 Reason Onset Date Comments Refill Request 10/12/2023 Reason Comments Ankle Fracture Foot check Reason Onset Date Comments Refill Request 10/20/2023 Reason Comments Trauma Left knee injury, fe ll/tripped over bath mat x 1 week Reason Comments New Knee Pain Specialty Diagnoses / Procedures Referred By Contac t Referred To Contact Orthopedics Diagnoses Acute pain of left knee Knee effusion, left Procedures CONSULT TO ORTHOPAEDICS OFFICE/OUTPATIENT [facility] 60 MINUTES Hakan Escalante APRN.LIFE SCIENCE RESEARCH ASSISTANT [address] [place] [address] Referral ID Status Reason Start Date Expiration Date V isits Requested Visits Authorized [id number] Closed PCP Requested Referral 11/06/2023 11/05/2024 1 1 Reason Comments New Patient Specialty Diagnoses / Procedures Referred By Contac t Referred To Contact Neurology Diagnoses Idiopathic peripheral neuropathy Left foot drop Right foot drop Procedures CONSULT TO NEUROLOGY OFFICE/OUTPATIENT [facility] 60 MINUTES Maria C Pardo, ASHLEY [address] [place] [address] [facility] [address] [place] [address] Phone: [phone] Referral ID Status Reason Start Date Expiration Date V isits Requested Visits Authorized [id number] Closed PCP Requested Referral 10/17/2023 10/16/2024 1 1 Reason Comments Results Anticoagulation Referral ID Status Reason Start Date Expiration Date V isits Requested Visits Authorized [id number] Closed Auto-Generate d Referral 11/28/2023 10/25/2024 1 1 Reason Comments Established Patient Lung Transplant Follow Up Reason Comments Full Body Skin Check Specialty Diagnoses / Procedures Referred By Contac t Referred To Contact [facility] Diagnoses FBSC Procedures Est Patient Jeni Daly MD [address] [place] [address] [facility] [address] [place] [id number] Referral ID Status Reason Start Date Expiration Date Visits Requested Visits Authorized [id number] Pending Review OON/Self Pay Override 09/29/2023 01/06/2025 1 1 Reason Comments MRI Report Reason Onset Date Comments Refill Request 12/29/2023 Specialty Diagnoses / Procedures Referred By Contac t Referred [facility] Diagnoses 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) Care after organ transplant Lung transplant status, bilateral (HCC) Bronchiolitis obliterans syndrome (HCC) Class 3 severe obesity without serious comorbidity with body mass index (BMI) of 40.0 to 44.9 in adult, unspecified obesity type (HCC) Encounter for monitoring tacrolimus therapy Essential hypertension Traumatic hematoma of left knee, subsequent encounter Procedures SPIROMETRY BASELINE ONLY SPMTRY W/VC EXPIRATORY LORRAINE W/WO MXML VOL VNTJ Jeni Daly MD [address] [place] [address] [facility] [address] [place] [address] Referral ID Status Reason Start Date Expiration Date V isits Requested Visits Authorized [id number] Closed Auto-Generate d Referral 11/30/2023 12/29/2024 1 1 Specialty Diagnoses / Procedures Referred By Contac t Referred To Contact Radiology / [facility] GENERAL [facility]IN A21 Diagnoses Lung transplant status Lung tx post Procedures RADIOLOGIC EXAM CHEST 2 VIEWS XR CHEST Lynne Chan MD [address] [place] [address] [facility] A21 [address] [id number] Referral ID Status Reason Start Date Expiration Date Visits Re quested Visits Authorized [id number] Closed 03/06/2024 09/10/2024 1 1 Reason Comments Wound Care Bilateral great toes Reason Comments Follow Up Abrasion bilateral b ig toes f/u Reason Comments Established Patient Medication follow up Reason Onset Date Comments Refill Request 05/02/2024 Specialty Diagnoses / Procedures Referred By Contac t Referred To Contact [facility] IMAGING Diagnoses Left knee pain, unspecified chronicity Procedures MRI KNEE WO IVCON LEFT MRI ANY JT LOWER EXTREM W/O CONTRAST MATRL Chandra Gaitan MD [address] [place] [address] [facility] [place] [address] Referral ID Status Reason Start Date Expiration Date V isits Requested Visits Authorized [id number] Closed Auto-Generate d Referral 11/07/2023 12/06/2024 1 1 Specialty Diagnoses / Procedures Referred By Contac t Referred To Contact [facility] IM[facility] Diagnoses Encounter for observation for other suspected diseases and conditions ruled out Procedures MRI LOWER LEG WO IVCON LEFT MRI LOWER EXTREM OTH/THN JT W/O CONTR Chandra Suarez MD [address] [place] [address] [place] [address] Referral ID Status Reason Start Date Expiration Date V isits Requested Visits Authorized [id number] Closed Auto-Generate d Referral 11/09/2023 01/08/2024 1 1 Reason Comments Return Call Request Patient Update Reason Onset Date Comments Refill Request 06/12/2024 Referral ID Status Reason Start Date Expiration Date V isits Requested Visits Authorized [id number] Closed Auto-Generate d Referral 06/18/2024 04/05/2025 1 1 Reason Comments Appointment Bronchoscopy Scheduling FOR RECORDS PERTAINING TO PATIENTS WHO ARE OR HAVE BEEN ENROLLED IN A CHEMICAL DEPENDENCY/SUBSTANCEABUSE PROGRAM, SOME INFORMATION MAY BE OMITTED. This clinical summary was aggregated from multiple sources. Caution should be exercised in using it in the provision of clinical care. This summary normalizes information from multiple sources, and as a consequence, information in this document may materially change the coding, format and clinical context of patient data. In addition, data may be omitted in some cases. CLINICAL DECISIONS SHOULD BE BASED ON THE PRIMARY CLINICAL RECORDS. [facility]. provides no warranty or guarantee of the accuracy or completeness of information in this document.
[2024-07-02 11:23] LABS: International Normalized Ratio 1.9; Prothrombin Time (Protime)PT. 21.6 SECONDS (11.7-14.9)
[2024-07-02 12:24] VITALS: BP 138/71; PULSE 78; RESP 16; TEMP 36.6; O2SAT 99
== END 2024-07-02 12:25 | disposition home or self-care (01) ==
PROVIDERS: Emergency Provider Emergency Medicine; PCP Internal Medicine; Visit Provider Emergency Medicine
DX: S81.021A Laceration with foreign body, right knee, initial encounter (principal); Z94.2 Lung transplant status; I27.20 Pulmonary hypertension, unspecified; S60.511A Abrasion of right hand, initial encounter; S60.512A Abrasion of left hand, initial encounter; W18.30XA Fall on same level, unspecified, initial encounter; G62.9 Polyneuropathy, unspecified; Z79.01 Long term (current) use of anticoagulants; Z79.899 Other long term (current) drug therapy
CPT/HCPCS: 12005; 73560; 85610; 99285

== ENCOUNTER 2024-07-12 15:08 | Emergency (ER) | payer MEDICARE, MEDICAID, SELFPAY ==
[2024-07-12 15:08] VITALS: BP 144/75; PULSE 99; RESP 18; TEMP 36.6; O2SAT 99
[2024-07-12 15:11] VITALS: BMI 49.0
--- NOTE | 2024-07-12 16:06 | EDS_ITS ---
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 On July 02, 2024, the patient fell, and had a significant laceration below the right knee. This was irrigated copiously, and 25 simple interrupted 4-0 Ethilon were placed. Patient went to her PCP to have the sutures removed, they were concerned for the significant swelling, hematoma, and refer the patient to the ER. Patient denies any fever or chills, [place] any other denies any other complaints. [facility] <ARTUR Rodriguez - Last Filed: 07/12/24 17:05> [facility] Medical History Pulmonary embolism Non-smoker Neuropathy Pulmonary hypertension Anemia Home Medications ?Medication ?Instructions ?Recorded ?Last Taken ?Type ferrous sulfate 325 mg (65 mg 325 mg PO DAILY 03/23/15 09/23/15 History iron) tablet (Iron (ferrous sulfate)) ondansetron 4 mg disintegrating 4 mg PO Q8H PRN PRN Nausea 03/23/15 09/23/15 History tablet warfarin 7.5 mg tablet (Jantoven) mg PO DAILY 03/23/15 09/23/15 History 11 acetaminophen 500 mg tablet 1,000 mg PO Q6H PRN Pain 03/06/21 Unknown History azathioprine 50 mg tablet 50 mg PO DAILY 03/06/21 Unknown History biotin 1 mg tablet 1 mg PO DAILY 03/06/21 Unknown History bupropion HCl 150 mg 24 hr tablet, 300 mg PO DAILY 03/06/21 Unknown History extended release (Wellbutrin XL) calcium carbonate 500 mg capsule 1,000 mg PO DAILY 03/06/21 Unknown History fluticasone propionate 50 1 spray intranasal DAILY 03/06/21 Unknown History mcg/actuation nasal spray,suspension folic acid 1 mg tablet 1 mg PO DAILY 03/06/21 Unknown History gabapentin 300 mg tablet 600 mg PO BID 03/06/21 Unknown History gabapentin 300 mg tablet 900 mg PO QHS 03/06/21 Unknown History levonorgestrel 21 mcg/24 hr (up to 20 mcg intrauterine DAILY 03/06/21 Unknown History 8 years) 52 mg intrauterine device (Mirena) magnesium oxide 400 mg PO BID 03/06/21 Unknown History mecobalamin (vitamin B12) 1,000 1,000 mcg PO DAILY 03/06/21 Unknown History mcg chewable tablet (B12 Active) melatonin 5 mg disintegrating 5 mg PO QHS 03/06/21 Unknown History tablet montelukast 10 mg tablet 10 mg PO DAILY 03/06/21 Unknown History (Singulair) multivitamin 1 tab PO DAILY 03/06/21 Unknown History naltrexone 50 mg tablet 50 mg PO DAILY 03/06/21 Unknown History pantoprazole 40 mg tablet,delayed 40 mg PO DAILY 03/06/21 Unknown History release prednisone 5 mg tablet 5 mg PO DAILY 03/06/21 Unknown History propranolol 20 mg tablet 20 mg PO TID 03/06/21 Unknown History sulfamethoxazole 400 1 tab PO MOFR 03/06/21 Unknown History mg-trimethoprim 80 mg tablet (Bactrim) tacrolimus 1 mg capsule, 3 mg PO Q12H 03/06/21 Unknown History immediate-release valganciclovir 450 mg tablet 450 mg PO DAILY 03/06/21 Unknown History (Valcyte) ergocalciferol (vitamin D2) 25,000 50,000 unit PO QWEEK 07/16/21 Unknown History unit capsule amoxicillin 875 mg tablet 875 mg PO BID 3 days #6 tabs 05/31/23 Unknown Rx clindamycin HCl 300 mg capsule 300 mg PO Q8H 7 days #21 CAPSULES 07/02/24 Unknown Rx (Cleocin HCl) Allergy/AdvReac Type Severity Reaction Status Date / Time cefprozil (From Cefzil) Allergy Rash Verified 07/12/24 15:08 fentanyl AdvReac mental Verified 07/12/24 15:08 status change Surgical History Hx of lung transplant Social History household members: family Smoking Status: Never smoker alcohol intake: never substance use type: does not use ROS <ARTUR Rodriguez - Last Filed: 07/12/24 17:05> ROS ED ROS Narrative Constitutional: Negative for fever, chills, weight loss, weakness Eyes: Negative for vision loss, vision change, double vision ENT: Negative for any sore throat, ear pain, congestion Cardiovascular: Negative for any chest pain, tightness, palpitations Respiratory: Negative for any cough, sputum production, hemoptysis, dyspnea, dyspnea on exertion, orthopnea Gastrointestinal: Negative for any abdominal pain, nausea, vomiting, diarrhea, constipation, blood in stool, blood in vomit : Negative for any urinary frequency, dysuria, retention, blood in urine Muscle skeletal: Negative for any neck pain, back pain. Positive for right lower leg edema Neurological: Negative for any headache, syncope, dizziness Skin: Negative for any rashes, itching, abrasions, lacerations Psychiatric: Negative for any depression, anxiety, stress, suicidal ideation, homicidal ideation Hematologic: Negative for any excessive bruising, easy bleeding EXAM <ARTUR Rodriguez - Last Filed: 07/12/24 17:05> Physical Exam Narrative Exam Narrative: Vital signs reviewed. ly Extremities: Patient has obvious hematoma below the laceration. The sutures appear intact. There is warm to the touch however do not believe this is cellulitic. +2 pedal pulse. There is no significant pain to the calf. Most of the pain is just below the suture. This is likely related to the swelling. There is no active bleeding. There is no gross discharge. Neuro: Cranial nerves II through XII intact, no focal neurological deficits. Skin: Clean dry and intact with no rash, purpura, petechiae, vesicles or pustules. Backs/flank: No CVA tenderness, no midline spinal tenderness, no deformity. Psych: Normal mood and affect. No SI, HI or acute psychosis. Const Vital Signs: 07/12/24 15:08 Temperature 97.9 F Temperature Source Temporal Pulse Rate 99 Respiratory Rate 18 Blood Pressure 144/75 H Blood Pressure Mean 98 Pulse Ox 99 Oxygen Delivery Method Room Air Positive well nourished, well developed and obese General Appearance ED: well developed Nutritional Appearance: obese <Dr. Nain Felix DO - Last Filed: 07/14/24 06:54> Physical Exam Const Vital Signs: 07/12/24 15:08 Temperature 97.9 F Temperature Source Temporal Pulse Rate 99 Respiratory Rate 18 Blood Pressure 144/75 H Blood Pressure Mean 98 Pulse Ox 99 Oxygen Delivery Method Room Air MDM <ARTUR Rodriguez - Last Filed: 07/12/24 17:05> [facility] Lab Data Labs: Laboratory Results - last 24 hr 07/12/24 16:22 WBC 10.6 RBC 3.27 L Hgb 11.2 L Hct 33.5 L MCV 102.4 H MCH 34.3 H MCHC 33.4 RDW Std Deviation 49.5 H RDW Coeff of Dickson 13.2 Plt Count 339 MPV 9.8 Immature Gran % (Auto) 0.700 Neut % (Auto) 84.9 H Lymph % (Auto) 6.1 L Sebastian % (Auto) 6.2 Eos % (Auto) 1.6 Baso % (Auto) 0.5 Absolute Neuts (auto) 9.0 H Absolute Lymphs (auto) 0.65 L Nucleated RBC % 0 PT 31.3 H INR 3.1 Treatment and Re-Evaluation :: Differential diagnosis includes however is not limited to: Leg hematoma, hypercoagulability secondary to being on Coumadin, compartment syndrome, muscle strain Patient appears generally well, vital signs are stable, patient is nontoxic- appearing. Presenting to the emergency department complaints of lower leg edema, ecchymosis below the suture on the right leg. Patient's CBC shows a hemoglobin of 11.2, this is stable for the patient. PT was 31.3 with an INR 3.1. We did reach out to Dr. Gross who will see her in the wound care center. The sutures will remain in place and would not be removed at this time. Patient will continue to ice and elevate. She is happy with the plan of care, patient stable for discharge. <Dr. Nain Felix DO - Last Filed: 07/14/24 06:54> [facility] History & Record Review Discussion w/independent historian: Patient and Family Additional record(s) reviewed:: Prior ED visit and Prior labs Lab Data Attestation: I reviewed the patient's lab results. Labs: Laboratory Results - last 24 hr 07/12/24 16:22 WBC 10.6 RBC 3.27 L Hgb 11.2 L Hct 33.5 L MCV 102.4 H MCH 34.3 H MCHC 33.4 RDW Std Deviation 49.5 H RDW Coeff of Dickson 13.2 Plt Count 339 MPV 9.8 Immature Gran % (Auto) 0.700 Neut % (Auto) 84.9 H Lymph % (Auto) 6.1 L Sebastian % (Auto) 6.2 Eos % (Auto) 1.6 Baso % (Auto) 0.5 Absolute Neuts (auto) 9.0 H Absolute Lymphs (auto) 0.65 L Nucleated RBC % 0 PT 31.3 H INR 3.1 Treatment and Re-Evaluation :: Differential diagnosis includes however is not limited to: Leg hematoma, hypercoagulability secondary to being on Coumadin, compartment syndrome, muscle strain Patient appears generally well, vital signs are stable, patient is nontoxic- appearing. Presenting to the emergency department complaints of lower leg edema, ecchymosis below the suture on the right leg. Patient's CBC shows a hemoglobin of 11.2, this is stable for the patient. PT was 31.3 with an INR 3.1. We did reach out to Dr. Gross who will see her in the wound care center. The sutures will remain in place and would not be removed at this time. Patient will continue to ice and elevate. She is happy with the plan of care, patient stable for discharge. I have personally performed a face to face assessment of the patient and have reviewed the LUISA Note. I performed a substantive portion of the visit including all aspects of the following. My mckeon findings include: History is 29-year-old female here for wound check from PCP office. Patient had leg laceration just below the right knee repaired. She is on Coumadin. Lung transplant patient. She notes large hematoma formation and drainage of a dark red to black fluid from the wound. No reported fevers. Exam is there is a large hematoma anteriorly in the subpatellar region. Does not go above the sutures and laceration. It stops at mid tibia. Distally the foot appears symmetric with the left. There is no increased warmth. No subcutaneous emphysema. There is no substantial warmth or increased erythema. Medical Decison Making this appears to be a large hematoma that is breaking down and drainage. I do not see any obvious signs of compartment syndrome at this time. She appears to be perfusing distally. I do not see that this is an infected hematoma. Her INR at 3.1 normal platelets. Hemoglobin slightly low at 11.2 white count 10.6. I spoke with Dr. Santos from plastic surgery was happy to see the patient in follow-up Monday afternoon at the wound care clinic. Patient is agreeable to this. I think the stitches need to stay in place at this time. Discharge Plan Triage Chief Complaint: Wound Check ED Midlevel Provider: Harpreet Farrar ED Provider: Nain Felix Dx/Rx/DC Orders Clinical Impression: Hematoma, Encounter for wound care Instructions: ED Hematoma Prescriptions: No Action warfarin [Jantoven] 7.5 MG tablet PO DAILY Rx Instructions: 7.5 Sa, Choudhary, , , Fr 11.25 Mo, We ferrous sulfate [Iron (ferrous sulfate)] 325 MG tablet 325 mg PO DAILY ondansetron 4 MG tablet 4 mg PO Q8H PRN PRN (Reason: Nausea) multivitamin Tablet 1 tab PO DAILY valganciclovir [Valcyte] 450 mg Tablet 450 mg PO DAILY Mirena 20 mcg/24 hours (6 yrs) 52 mg Intrauterine Device 20 mcg INTRAUTERINE DAILY calcium carbonate 500 mg Capsule 1,000 mg PO DAILY sulfamethoxazole-trimethoprim [Bactrim] 400-80 mg Tablet 1 tab PO MOFR naltrexone 50 mg Tablet 50 mg PO DAILY prednisone 5 mg Tablet 5 mg PO DAILY azathioprine 50 mg Tablet 50 mg PO DAILY acetaminophen 500 mg Tablet 1,000 mg PO Q6H PRN (Reason: Pain) pantoprazole 40 mg Tablet,Delayed Release (Dr/Ec) 40 mg PO DAILY folic acid 1 mg Tablet 1 mg PO DAILY montelukast [Singulair] 10 mg Tablet 10 mg PO DAILY propranolol 20 mg Tablet 20 mg PO TID fluticasone propionate [Flonase] 50 mcg/actuation [place],Suspension 1 spray INTRANASAL DAILY tacrolimus 1 mg Capsule 3 mg PO Q12H bupropion HCl [Wellbutrin XL] 150 mg Tablet Extended Release 24 Hr 300 mg PO DAILY gabapentin 300 mg Tablet 600 mg PO BID gabapentin 300 mg Tablet 900 mg PO QHS biotin 1 mg Tablet 1 mg PO DAILY magnesium oxide 400 mg magnesium Capsule 400 mg PO BID melatonin 5 mg Tablet,Disintegrating 5 mg PO QHS mecobalamin (vitamin B12) [B12 Active] 1,000 mcg Tablet,Chewable 1,000 mcg PO DAILY Vitamin D2 25,000 unit Capsule 50,000 unit PO QWEEK amoxicillin 875 mg tablet 875 mg PO BID 3 Days Qty: 6 0RF clindamycin HCl [Cleocin HCl] 300 mg capsule 300 mg PO Q8H 7 Days Qty: 21 0RF Primary Care Provider: Bisi Unger Referrals: Bisi Unger MD [Primary Care Provider] - Angel Gross MD [Med Staff - Active Staff] - Hyperbaric Medicine,[facility] Wound and [Non-Staff] - Activity Restrictions/Additional Instructions: Please call this number if you do not hear from anybody in middle the afternoon on Monday to follow-up with the wound care center. [phone] Print Language: Korean Disposition Disposition: Home, Self Care Discharge Date/Time: 07/12/24 17:18
[2024-07-12 16:28] LABS: Absolute Lymphocyte Count 0.65 X10^3/uL (0.83-4.51); Basophil# 0.05 X10^3/uL; Basophil% 0.5 % (0-1); Eosinophil# 0.17 X10^3/uL; Eosinophils% 1.6 % (0-5); Hematocrit 33.5 % (37-47); Hemoglobin 11.2 g/dL (12.0-15.0); Lymphocyte # 0.65 X10^3/ul (0.83-4.51); Lymphocyte % 6.1 % (19-41); Mean Corp Hgb Conc 33.4 g/dL (32-36); Mean Corpuscular Hgb 34.3 pg (27.0-32.0); Mean Corpuscular Volume 102.4 fL (81-99); Mean Platelet Vol. 9.8 fl (6.2-12.0); Monocyte# 0.66 X10^3/uL; Monocyte% 6.2 % (0-10); NRBC Flagged by Analyzer 0 % (0-5); Neutrophil # 8.98 X10^3/uL (2.7-7.7); Neutrophil % 84.9 % (47-70); Platelet Count 339 K/mm3 (150-450); RBC Distribution Width CV 13.2 % (11.6-14.6); RBC Distribution Width SD 49.5 fl (35.1-43.9); Red Blood Count 3.27 M/mm3 (4.2-5.4); White Blood Count 10.6 K/mm3 (4.4-11.0)
[2024-07-12 16:37] LABS: International Normalized Ratio 3.1; Prothrombin Time (Protime)PT. 31.3 SECONDS (11.7-14.9)
== END 2024-07-12 17:18 | disposition home or self-care (01) ==
PROVIDERS: Emergency Provider Emergency Medicine; PCP Internal Medicine; Visit Provider Emergency Medicine
DX: S80.11XA Contusion of right lower leg, initial encounter (principal); Z94.2 Lung transplant status; S81.811S Laceration without foreign body, right lower leg, sequela; W19.XXXS Unspecified fall, sequela; E66.9 Obesity, unspecified; Z79.01 Long term (current) use of anticoagulants; Z79.899 Other long term (current) drug therapy
CPT/HCPCS: 85025; 85610; 99282

== ENCOUNTER 2024-07-15 13:48 | Outpatient (RCR) | payer MEDICARE, MEDICAID, SELFPAY ==
[2024-07-15 14:14] VITALS: BP 122/75; PULSE 79; RESP 18; TEMP 36.2; BMI 49.9
--- NOTE | 2024-07-15 17:29 | PCM.WC.PN ---
History of Present Illness Date of Service: 07/15/24 Chief Complaint: Right knee wound after fall History of Wound: 29 year old [place] female presents with right knee wound with swelling and bruising after a fall on 07/02/24. She has a history of multiple blood clots where she developed Pulmonary hypertension which led to her needing a bilateral lung transplant. She is on chronic anticoagulation of Warfarin (which she has been switched to Lovenox over the past couple days). She also has foot drop, which is what caused her to trip on asphalt and fall on her knees. When she fell, she went to the [place] ED and they stitched her right knee closed. Her incision a couple days ago. She has been keeping an JUNG wrap on her right leg and knee but she continues to have swelling and pain. She is denying any fever or chills. She comes in today for further evaluation of her wound and treatment. Progress of Wound: Right knee and anterior leg with a large swelling and bruising. Her right knee laceration has dehisced. She has a hematoma present in the swelling. With some gentle exploration and palpation with my finger able to remove a scant amount of hematoma, the hematoma expands down to her mid anterior lower leg. It is tender to palpation. Objective Data Objective Data Vital Signs: Vital Signs Temp Pulse Resp BP O2 Del Method 97.1 F L 79 18 122/75 H Room Air 07/15/24 14:14 07/15/24 14:14 07/15/24 14:14 07/15/24 14:14 07/15/24 14:14 Oxygen Delivery Method Room Air Weight: 300 lb Body Mass Index (BMI) 49.9 Charges/Coding Visit Charges Office Visits / Consults: 20735 OV L4 Est 30min Physical Exam Const alert and oriented x3 HEENT normocephalic Lymph Lymphatic: no lymphedema noted Resp normal respiratory effort and no use of accessory muscles Effort and Inspection: able to speak in complete sentences Cardio regular rate and regular rhythm Extremity normal capillary refill Skin Wound Narrative: Right knee and proximal lower leg with swelling/bruising from hematoma. Approximate measurement is 20 cm long. Suture line has partially dehisced, sutures that were not doing anything were removed. Neuro CN's II-XII intact bilaterally Assessment/Plan Assessment/Plan (1) Traumatic hematoma of right knee: CODE(S): S80.01XA - Contusion of right knee, initial encounter (2) Hx of lung transplant: CODE(S): Z94.2 - Lung transplant status PLAN: Plan Patient has an extensive medical history which includes blood clots, chronic anticoagulation and lung transplant. She has a significant hematoma to her right anterior knee. She was in the ED 07/03/24 after this occurred and they sutured up her knee. It has since dehisced and there is a significant hematoma that most likely will need surgical evacuation. Due to her history, I recommend that she go to [facility] for further evaluation. I am recommending going to [facility]. The patient and her mother stated that they will go but will phone her transplant team first for their suggestion. I did contact my collaborative physician, Dr. Gross, for his input and he agrees that she should go to a tertiary center for further treatment. The patient and her mother both agree with this plan. Greater than 30 minutes spent with patient evaluating, coordinating care, reviewing documentation and documenting.
--- NOTE | 2024-07-17 13:27 | WC ---
PHOTO 07/15/24 RIGHT KNEE
== END 2024-07-15 16:18 | disposition home or self-care (01) ==
LOC: WC 13:48
PROVIDERS: PCP Internal Medicine; Referring Provider Surgery Plastic and Reconstructive Surgery; Visit Provider Surgery Plastic and Reconstructive Surgery
DX: M79.89 Other specified soft tissue disorders (principal); Z94.2 Lung transplant status; T81.33XS Disruption of traumatic injury wound repair, sequela; S81.011S Laceration without foreign body, right knee, sequela; S80.01XA Contusion of right knee, initial encounter; Z79.01 Long term (current) use of anticoagulants; W01.0XXS Fall on same level from slipping, tripping and stumbling without subsequent striking against object, sequela; Z86.718 Personal history of other venous thrombosis and embolism; M21.379 Foot drop, unspecified foot; S80.01XS Contusion of right knee, sequela
CPT/HCPCS: 99214; G0463